=== PATIENT | male | born 1955 | race Hispanic/Latino ===

== ENCOUNTER 2018-06-30 18:27 | Observation (INO) | payer BC ==
[2018-06-30] MEDS ORDERED: NA CHLORIDE 0.9% 1,000 ML ONE ×2 (19:26→22:12)
[2018-06-30] MEDS ORDERED: KETOROLAC 30 MG/ML INJ ONE (19:37)
[2018-06-30 20:00] LABS: Albumin 3.2 g/dL (3.4-5.0); Bilirubin Total 0.5 mg/dL (0.2-1.0); C-Reactive Protein 88.4 mg/L (<3.00); Potassium 3.9 mmol/L (3.5-5.1); Protein, Total 8.1 g/dL (6.4-8.2)
[2018-06-30 20:35] LABS: Absolute Lymphocytes (CBC) 0.9 K/uL (0.7-4.9); Absolute Neutrophil 9.9 K/uL (1.8-8.0); Basophils % 0.4 % (0-1.3); Eosinophils % 3.8 % (0-4.4); Hematocrit 40.9 % (39.6-49.0); MPV 9.8 fL (7.6-11.3); Monocytes % 8.2 % (3.3-12.3); RBC Red Blood Cell Count 4.17 M/uL (4.33-5.43)
--- NOTE | 2018-06-30 21:40 | ER ---
Nurse's Notes [facility] Name: Devonte Gil Age: 62 yrs Sex: Male : 1955 Arrival Date: 06/30/2018 Time: 18:30 Bed 8 Private MD: Diagnosis: Other giant cell arteritis Presentation: 06/30 18:36 Presenting complaint: Patient states: left temporal pain that began at 1400 today and aa5 states "it's hard to see straight with my left eye, I have to turn my head to the right to see what is in front of me". Pt states "the eye doctor sent me here". Transition of care: patient was not received from another setting of care. Onset of symptoms was June 30, 2018. Risk Assessment: Do you want to hurt yourself or someone else? Patient reports no desire to harm self or others. Initial Sepsis Screen: Does the patient meet any 2 criteria? No. Patient's initial sepsis screen is negative. Does the patient have a suspected source of infection? No. Patient's initial sepsis screen is negative. Care prior to arrival: None. 18:36 Acuity: FABI 3 aa5 18:36 Method Of Arrival: Ambulatory aa5 Historical: - Allergies: 18:38 No Known Allergies; aa5 - PMHx: 18:38 Diabetes - NIDDM; Hypertension; aa5 - PSHx: 18:38 Appendectomy; aa5 - Immunization history:: Flu vaccine is up to date. - Social history:: Smoking status: Patient/guardian denies using tobacco, Patient/guardian denies using alcohol, street drugs, The patient lives with family. - Ebola Screening: : No symptoms or risks identified at this time. - Family history:: not pertinent. Screenin:37 Abuse screen: Denies threats or abuse. Nutritional screening: No deficits noted. ea Tuberculosis screening: No symptoms or risk factors identified. Fall Risk None identified. IV access (20 points). Assessment: 19:36 General: Appears in no apparent distress. Behavior is calm, cooperative, appropriate ea for age. Pain: Complains of pain in headache. Neuro: Level of Consciousness is awake, alert, obeys commands, Oriented to person, place, time, situation. Cardiovascular: Patient's skin is warm and dry. Respiratory: Airway is patent Respiratory effort is even, unlabored, Respiratory pattern is regular, symmetrical. Derm: Skin is pink, warm \\T\\ dry. 20:30 Reassessment: Patient and/or family updated on plan of care and expected duration. Pain ea level reassessed. Patient is alert, oriented x 3, equal unlabored respirations, skin warm/dry/pink. 21:50 Reassessment: Patient and/or family updated on plan of care and expected duration. Pain ea level reassessed. Patient is alert, oriented x 3, equal unlabored respirations, skin warm/dry/pink. 22:47 Reassessment: Patient and/or family updated on plan of care and expected duration. Pain ea level reassessed. Patient is alert, oriented x 3, equal unlabored respirations, skin warm/dry/pink. Pt complaining of headache, Dr. Enriquez notified, order for tramadol 50 mg PO X1 obtained, medication administered, pt tolerated well. 23:30 Reassessment: Patient and/or family updated on plan of care and expected duration. Pain ea level reassessed. Patient is alert, oriented x 3, equal unlabored respirations, skin warm/dry/pink. Report given to Juan FAUSTIN. 23:47 Reassessment: Patient and/or family updated on plan of care and expected duration. Pain ea level reassessed. Patient is alert, oriented x 3, equal unlabored respirations, skin warm/dry/pink. Pt admitted to second floor, taken via wheelchair per tech, tolerating well. Vital Signs: 18:39 BP 155 / 82; Pulse 95; Resp 16 S; Temp 98.6(TE); Pulse Ox 95% on R/A; Weight 106.59 kg aa5 (R); Height 5 ft. 9 in. (175.26 cm) (R); Pain 6/10; 20:00 BP 120 / 67; Pulse 80; Resp 18; Pulse Ox 98% on R/A; ea 21:30 BP 123 / 67; Pulse 78; Resp 18; Pulse Ox 97% on R/A; ea 22:50 BP 130 / 72; Pulse 82; Resp 18; Pulse Ox 97% on R/A; ea 23:45 BP 127 / 72; Pulse 86; Resp 18; Temp 98.5(O); Pulse Ox 98% ; ea 18:39 Body Mass Index 34.70 (106.59 kg, 175.26 cm) aa5 ED Course: 18:30 Patient arrived in ED. mr 18:36 Arm band placed on. aa5 18:38 Triage completed. aa5 18:56 Chris Nichole MD is Attending Physician. ma2 19:36 Inserted saline lock: 20 gauge in right antecubital area, using aseptic technique. ea Blood collected. 19:37 Patient has correct armband on for positive identification. Bed in low position. Call ea light in reach. Side rails up X 1. 19:38 Anu Redman, RN is Primary Nurse. ea 21:38 Jeanne Ojeda MD is Hospitalizing Provider. ma2 22:49 No provider procedures requiring assistance completed. Patient admitted, IV remains in ea place. Administered Medications: 19:34 Drug: NS 0.9% 1000 ml Route: IV; Rate: 1 bolus; Site: right antecubital; ea 20:30 Follow up: Response: No adverse reaction; IV Status: Completed infusion; IV Intake: ea 1000ml 19:35 Drug: TORadol 30 mg Route: IVP; Site: right antecubital; ea 20:00 Follow up: Response: No adverse reaction; Pain is decreased ea 22:10 Drug: MethylPrednisoLONE 1000 mg Route: IVP; Site: right antecubital; ea 23:33 Follow up: Response: No adverse reaction ea 22:43 Drug: traMADol 50 mg {Note: verbal order per Dr. Medina.} Route: PO; ea 23:33 Follow up: Response: No adverse reaction; Pain is decreased ea Intake: 20:30 IV: 1000ml; Total: 1000ml. ea Outcome: 21:39 Decision to Hospitalize by Provider. ma2 23:31 Admitted to Med/surg accompanied by tech, room 215, with chart, Report called to Juan boone RN 23:31 Condition: stable 23:31 Instructed on the need for admit. 23:48 Patient left the ED. ea Signatures: Chen Powell mr CarolinaAmanda, RN RAMIN [facility] Anu Redman, Chris Mae RN, ea, MD MD [facility]
--- NOTE | 2018-06-30 21:40 | EDPHYS ---
Physician Documentation [facility] Name: Devonte Gil Age: 62 yrs Sex: Male : 1955 Arrival Date: 06/30/2018 Time: 18:30 Bed 8 Private MD: ED Physician Chris Nichole HPI: 06/30 19:23 This 62 yrs old Male presents to ER via Ambulatory with complaints of Sent by shantelle Amaya 19:23 Onset: The symptoms/episode began/occurred suddenly, 5 hour(s) ago. Duration: the ma2 symptoms are continuous. Associated signs and symptoms: Pertinent positives: Pertinent negatives: chills, dizziness, fever, headache. Severity of symptoms: At their worst the symptoms were moderate in the emergency department the symptoms are unchanged. The patient has not experienced similar symptoms in the past. send by his opthalmologist for possible temporal arterietis, he went there for left sided visual changes and left taoism pain and tenderness, since 2 pm, constant, his vision was 20/20 bilat however he has left visual field defect on the left temporal side, report available and bib patient, never had this before he is diabetic on insuline . Historical: - Allergies: 18:38 No Known Allergies; aa5 - PMHx: 18:38 Diabetes - NIDDM; Hypertension; aa5 - PSHx: 18:38 Appendectomy; aa5 - Immunization history:: Flu vaccine is up to date. - Social history:: Smoking status: Patient/guardian denies using tobacco, Patient/guardian denies using alcohol, street drugs, The patient lives with family. - Ebola Screening: : No symptoms or risks identified at this time. - Family history:: not pertinent. ROS: 19:23 Constitutional: Negative for fever, chills, and weight loss, Cardiovascular: Negative ma2 for chest pain, palpitations, and edema. 19:23 Neck: Negative for injury, pain, and swelling, Respiratory: Negative for shortness of breath, cough, wheezing, and pleuritic chest pain, Abdomen/GI: Negative for abdominal pain, nausea, diarrhea, and constipation, Back: Negative for injury and pain. 19:23 Constitutional: Negative for body aches, chills, fatigue, malaise, poor PO intake. 19:23 Eyes: Positive for visual disturbance, Negative for injury or acute deformity, matting, photophobia. 19:23 Neck: 19:23 All other systems are negative. Exam: 19:23 Visual Acuity: Visual acuity is within normal limits. ma2 19:23 Constitutional: This is a well developed, well nourished patient who is awake, alert, and in no acute distress. ENT: Nares patent. No nasal discharge, no septal abnormalities noted. Tympanic membranes are normal and external auditory canals are clear. Oropharynx with no redness, swelling, or masses, exudates, or evidence of obstruction, uvula midline. Mucous membranes moist. Neck: Trachea midline, no thyromegaly or masses palpated, and no cervical lymphadenopathy. Supple, full range of motion without nuchal rigidity, or vertebral point tenderness. No Meningismus. Chest/axilla: Normal chest wall appearance and motion. Nontender with no deformity. No lesions are appreciated. Cardiovascular: Regular rate and rhythm with a normal S1 and S2. No gallops, murmurs, or rubs. Normal PMI, no JVD. No pulse deficits. Respiratory: Lungs have equal breath sounds bilaterally, clear to auscultation and percussion. No rales, rhonchi or wheezes noted. No increased work of breathing, no retractions or nasal flaring. Skin: Warm, dry with normal turgor. Normal color with no rashes, no lesions, and no evidence of cellulitis. MS/ Extremity: Pulses equal, no cyanosis. Neurovascular intact. Full, normal range of motion. Neuro: Awake and alert, GCS 15, oriented to person, place, time, and situation. Cranial nerves II-XII grossly intact. Motor strength 5/5 in all extremities. Sensory grossly intact. Cerebellar exam normal. Normal gait. 19:23 Head/face: Noted is ttp over left taoism, right side wnl . 19:23 Eyes: Pupils: equal, round, and reactive to light and accomodation, Extraocular movements: intact throughout, Lids and lashes: funduscopic exam reveals no obvious abnormalities, per report available by his optha today , Visual swenson: + defect as noted above in hpi. Vital Signs: 18:39 BP 155 / 82; Pulse 95; Resp 16 S; Temp 98.6(TE); Pulse Ox 95% on R/A; Weight 106.59 kg aa5 (R); Height 5 ft. 9 in. (175.26 cm) (R); Pain 6/10; 20:00 BP 120 / 67; Pulse 80; Resp 18; Pulse Ox 98% on R/A; ea 21:30 BP 123 / 67; Pulse 78; Resp 18; Pulse Ox 97% on R/A; ea 22:50 BP 130 / 72; Pulse 82; Resp 18; Pulse Ox 97% on R/A; ea 23:45 BP 127 / 72; Pulse 86; Resp 18; Temp 98.5(O); Pulse Ox 98% ; ea 18:39 Body Mass Index 34.70 (106.59 kg, 175.26 cm) aa5 MDM: 18:56 Patient medically screened. ma2 19:23 Differential diagnosis: ?Temporal arteritis vs clusted headache vs optic neuritis ma2 unlikely no indication for head ct, he has no headache. 21:37 Data reviewed: vital signs, nurses notes. Counseling: I had a detailed discussion with ma2 the patient and/or guardian regarding: the historical points, exam findings, and any diagnostic results supporting the discharge/admit diagnosis, the presence of at least one elevated blood pressure reading (>120/80) during this emergency department visit. Response to treatment: the patient's symptoms have markedly improved after treatment. ED course: ESR and CRP elevated temporal arteritis is likely discussed with dr. tavarez who recommends admission and accepted by dr. chris, we paged dr. Rao at 9 pm with no answer. 06/30 19:09 Order name: CBC with Diff; Complete Time: 21:00 ma2 06/30 19:09 Order name: CMP; Complete Time: 20:25 ma2 06/30 19:09 Order name: ESR; Complete Time: 21:00 ma2 06/30 19:09 Order name: CRP; Complete Time: 20:25 ma2 Administered Medications: 19:34 Drug: NS 0.9% 1000 ml Route: IV; Rate: 1 bolus; Site: right antecubital; ea 20:30 Follow up: Response: No adverse reaction; IV Status: Completed infusion; IV Intake: ea 1000ml 19:35 Drug: TORadol 30 mg Route: IVP; Site: right antecubital; ea 20:00 Follow up: Response: No adverse reaction; Pain is decreased ea 22:10 Drug: MethylPrednisoLONE 1000 mg Route: IVP; Site: right antecubital; ea 23:33 Follow up: Response: No adverse reaction ea 22:43 Drug: traMADol 50 mg {Note: verbal order per Dr. Medina.} Route: PO; ea 23:33 Follow up: Response: No adverse reaction; Pain is decreased ea Disposition: 06/30/18 21:39 Hospitalization ordered by Jeanne Ojeda for Inpatient Admission. Preliminary diagnosis is Other giant cell arteritis. - Bed requested for Telemetry/MedSurg (Inpatient). - Status is Inpatient Admission. ea - Condition is Stable. - Problem is new. - Symptoms are unchanged. UTI on Admission? No Signatures: Dispatcher [employer] EDMS Amanda Carolina RN RN aa5 Mariaelena Mason RN RN Anu Ivey RN RN Chris Rod MD MD ma2 Corrections: (The following items were deleted from the chart) 22:58 21:39 Hospitalization Ordered by Jeanne Ojeda MD for Inpatient Admission. Preliminary cg diagnosis is Other giant cell arteritis. Bed requested for Telemetry/MedSurg (Inpatient). Status is Inpatient Admission. Condition is Stable. Problem is new. Symptoms are unchanged. UTI on Admission? No. ma2 23:48 22:58 06/30/2018 21:39 Hospitalization Ordered by Jeanne Ojeda MD for Inpatient ea Admission. Preliminary diagnosis is Other giant cell arteritis. Bed requested for Telemetry/MedSurg (Inpatient). Status is Inpatient Admission. Condition is Stable. Problem is new. Symptoms are unchanged. UTI on Admission? No. cg
--- NOTE | 2018-06-30 22:49 | P.HP ---
Certification for Inpatient Patient admitted to: Observation With expected LOS: <2 Midnights Practitioner: I am a practitioner with admitting privileges, knowledge of patient current condition, hospital course, and medical plan of care. Services: Services provided to patient in accordance with Admission requirements found in Title 42 Section 412.3 of the Code of Federal Regulations Patient History Date of Service: 06/30/18 Reason for admission: left temporal pain, left aye trouble vision History of Present Illness: Mr Gil is a 62 years old male with history of hepatitis C, liver cirrhosis , HTN, DM II, who start this morning while he was at work with left temporal area pain. He describe like pulsate pain. He denied fever or chills, no nausea or vomiting. He focus the area of pain over his left temporal artery. He also states that was having trouble vision with his left eye this afternoon. He has never had this problem before. Lab work remarkable for leukocytosis 12.2 K, elevated ESR and CRP. BP 155/82, HR 95. No fever. Allergies No Known Drug Allergies Allergy (Verified 08/06/16 11:38) Unknown No Known Allergies Allergy (Uncoded 08/06/16 12:09) Unknown Home Medications: Amlodipine [Norvasc*] 25 mg PO DAILY 08/23/14 Aspirin 81 mg PO DAILY 08/23/14 Losartan Potassium [Cozaar] 100 mg PO DAILY 08/23/14 Carvedilol [Coreg*] 25 mg PO BID 08/06/16 Pantoprazole [Protonix Tab*] 40 mg PO BID #60 tab 08/08/16 - Past Medical/Surgical History Diabetic: Yes -: hepitisis C -: HTN -: Diabetes -: appendectomy - Family History Father -: Hypertension, Diabetes - Social History Smoking Status: Former smoker Alcohol use: Yes CD- Drugs: No Caffeine use: No Place of Residence: Home Review of Systems 10-point ROS is otherwise unremarkable Physical Examination - Physical Exam General: Alert, In no apparent distress HEENT: PERRLA, Mucous membr. moist/pink, Other (tenderness to palpation over left temporal artery.), EOMI, Sclerae nonicteric Neck: Supple, 2+ carotid pulse no bruit, No LAD, Without JVD or thyroid abnormality Respiratory: Clear to auscultation bilaterally, Normal air movement Cardiovascular: Regular rate/rhythm, Normal S1 S2 Gastrointestinal: Normal bowel sounds, No tenderness Musculoskeletal: No tenderness Integumentary: No rashes Neurological: Normal speech, Normal strength at 5/5 x4 extr, Normal tone, Normal affect Lymphatics: No axilla or inguinal lymphadenopathy - Studies Laboratory Data (last 24 hrs) 06/30/18 19:37: Sodium 137, Potassium 3.9, BUN 21 H, Creatinine 1.03, Glucose 113 H, Total Bilirubin 0.5, AST 31, ALT 37, Alkaline Phosphatase 140 H 06/30/18 19:37: WBC 12.2 H, Hgb 14.9, Hct 40.9, Plt Count 221 Assessment and Plan - Problems (Diagnosis) (1) Temporal arteritis Current Visit: Yes Status: Acute (2) Diabetes mellitus Onset Date: 08/07/16 Current Visit: No Status: Acute Qualifiers: Diabetes mellitus type: type 2 Diabetes mellitus termite helper insulin use: without termite helper use Diabetes mellitus complication status: with unspecified complications Qualified Code(s): E11.8 - Type 2 diabetes mellitus with unspecified complications (3) HTN (hypertension) Onset Date: 08/07/16 Current Visit: No Status: Acute Qualifiers: Hypertension type: essential hypertension Qualified Code(s): I10 - Essential (primary) hypertension (4) Liver cirrhosis Onset Date: 08/07/16 Current Visit: No Status: Acute Qualifiers: Hepatic cirrhosis type: unspecified hepatic cirrhosis Ascites presence: without ascites Qualified Code(s): K74.60 - Unspecified cirrhosis of liver - Plan The case was discussed with Dr Vargas, he recommended to start high dose of Steroids and keep him in the hospital for close monitoring. Will consult surgery team for left temporal artery biopsy. - Advance Directives Does patient have a Living Will: No Does patient have a Durable POA for Healthcare: No - Code Status/Comfort Care Code Status Assessed: Yes Code Status: Full Code
[2018-06-30] MEDS ORDERED: TRAMADOL HCL 50 MG TAB ONE (22:54)
[2018-06-30] MEDS ORDERED: ONDANSETRON 4 MG/2 ML VIAL IV PRN (23:46)
[2018-07-01] MEDS: NA CHLORIDE 0.9% 1,000 ML IV SCH ×2 (00:30→09:46)
[2018-07-01 00:39] VITALS: BMI 34.9
[2018-07-01 06:13] LABS: Absolute Lymphocytes (CBC) 0.4 K/uL (0.7-4.9); Absolute Monocytes 0.1 K/uL (0.1-1.3); Absolute Neutrophil 8.6 K/uL (1.8-8.0); Basophils % 0.2 % (0-1.3); Eosinophils % 0.2 % (0-4.4); Hematocrit 44.2 % (39.6-49.0); Lymphocytes % 4.8 % (15.3-44.8); MPV 9.8 fL (7.6-11.3); RBC Red Blood Cell Count 4.71 M/uL (4.33-5.43)
[2018-07-01 06:26] LABS: Potassium 4.7 mmol/L (3.5-5.1)
[2018-07-01] MEDS: INSULIN -REGULAR HUMAN 50 UNIT/0.5 ML ML SQ SCH ×2 (07:30→11:30)
[2018-07-01 07:52] LABS: Platelet Estimate ADEQ
[2018-07-01 07:53] LABS: Blood Morphology Comment NOT SEEN (NOT SEEN); Platelets, Giant FEW
[2018-07-01] MEDS ORDERED: METHYLPREDNISOLONE 40 MG INJ IV SCH (09:00)
[2018-07-01] MEDS ORDERED: METHYLPRED NA SUC 500 MG in NA CHLORIDE 0.9% 100 ML IV SCH (09:00)
[2018-07-01] MEDS ORDERED: FERROUS SULFATE 325 MG TAB PO PRN (09:07)
[2018-07-01] MEDS ORDERED: CEFAZOLIN/SWI 1gm 1 GM/10 ML SYR ONE (09:49)
[2018-07-01] MEDS ORDERED: NA CHLORIDE 0.9% 1,000 ML ONE (09:49)
[2018-07-01] MEDS ORDERED: LIDOCAINE 1% 20 ML MDV ONE (10:03)
[2018-07-01] MEDS ORDERED: FENTANYL CITR 100 MCG/2 ML ONE (10:34)
[2018-07-01] MEDS ORDERED: MIDAZOLAM HCL 2 MG/2 ML INJ ONE (10:34)
--- NOTE | 2018-07-01 11:05 | P.OP ---
Character Actor: Khanh VALERIO Preoperative diagnosis: L H/A, vision change, r/o Temporal Arteritis Postoperative diagnosis: same Primary procedure: Left Temporal Artery Biopsy Secondary procedure: Doppler guided Anesthesia: MAC Estimated blood loss: min Specimen: L Temporal Artery Findings: as above Complications: None Transferred to: Recovery Room Condition: Good
[2018-07-01] MEDS ORDERED: Mastisol Adhesive Liq ONE (11:12)
[2018-07-01] MEDS ORDERED: CODEINE 30MG/APAP 300MG TAB PO PRN (11:25)
[2018-07-01 11:35] VITALS: O2SAT 94
--- NOTE | 2018-07-01 14:24 | PREOPCON ---
Date of Consultation: 07/01/2018 Reason For Consultation: The patient needs the left temporal artery biopsy. History Of Present Illness: The patient is a 62-year-old gentleman, who came in with a headache on t he left side associated with vision changes. He went to the ER and was found to have an elevated sed imentation rate and CRP, and he was admitted. Steroids were started and I was asked to do a temporal artery biopsy. He is awake and alert. No fever or chills. No sore throat, runny nose, cough, head aches, or dizziness. No chest pain. Review of Systems: Otherwise unremarkable. Past Medical History: Significant for hepatitis C, hypertension, and diabetes. Past Surgical History: Appendectomy. Allergies: NO ALLERGIES. Social History: He used to smoke and drinks alcohol occasionally. Physical Examination: Vital Signs: Stable. He is afebrile. General: He is awake, alert, and oriented x3. Head and Neck: Cranial nerves 2 through 12 grossly within normal limits. No neck masses. No JVD. Throat clear. Neck is supple. Chest: Clear. Heart: S1 and S2. Abdomen: Soft, nondistended, and nontender. Positive bowel sounds. Extremities: Neurovascularly intact. Neuro: Nonfocal. Laboratory Data: White count is 9.2. Sedimentation rate is 48. Chemistry shows C reactive to be 88 .4. Assessment: A 62-year-old gentleman with vision change and left-sided headache, rule out temporal ar teritis. Plan: We will go ahead and do a left temporal artery biopsy. The patient understands the risks, eva efits, and alternatives and agrees to procedure. LISA/BEVERLY Voice ID: [id number] Report ID: [id number]
[2018-07-01 17:13] VITALS: BP 133/78; TEMP 97.2
--- NOTE | 2018-07-01 18:24 | CON ---
Reason For Consultation: Possible left temporal arteritis. History Of Present Illness: Mr. Gil is a 62-year-old patient who was in his usual state of heal th until yesterday when he developed pain in the left temporal region, and lateral left eye. Right a round that time, he began to have loss of central vision, but being able to maintain peripheral visio n and having to turn his head to either side to be able to read what is in front of him. He said stephen t towards his nose, there was no pain, but on the far side on the left lateral side of his eye, there was pain around the corner and in the temporal region. He saw his account advisor, who did an eye e valuation and raised concerns of possible left temporal arteritis. He came to [facility] Emergency Room where I was contacted by the emergency room physician, and we immediately instituted a plan of high-dose steroids, which the patient began at that point, and he was admitted for temporal artery biopsy. He did have the biopsy done earlier today by Dr. Rao. The patient said that once h e began to receive the intravenous steroids, which was methylprednisolone, he received a gram, he martir d, along with some Toradol, his left temporal pain improved, and he continued to do well as at the ti me of my evaluation, he said there was little to no pain in the left temporal area, and he denied any vision issues at this point. Past Medical History: Hepatitis C is treated, hypertension, diabetes. Past Surgical History: Appendectomy. Medications: Norvasc 25 mg daily, aspirin 81 mg daily, Cozaar 100 mg daily, Coreg 25 mg twice daily, Protonix 40 mg twice daily. Allergies: NO KNOWN DRUG ALLERGIES. Family History: Hypertension, diabetes in father. Social History: Smoked in the past. No recent alcohol or IV drug use. Review of Systems: He denies any recent fevers, chills, nausea, vomiting, myalgias, arthralgias, weight change, rash, an d all these are other than mentioned above. Physical Examination: Vital Signs: Blood pressure 132/70, pulse 89, respiratory rate 16, temperature 97.7, oxygen saturati on 94-99%, weight 236 pounds, height 5 feet 9 inches, BMI 34.9. General: Mr. Gil is resting comfortably in bed. HEENT: He has Steri-Strips over the left temporal area artery biopsy. Otherwise, there is no trauma of the head and he is normocephalic. Sclerae anicteric. Oropharynx is moist, pink. Neck: Supple. Chest: Clear. Heart: Regular. Extremities: Show no edema, cyanosis, or clubbing. Neurological: He is alert and oriented to person, place, time, and situation. He has no expressive or receptive aphasias. Cranial nerves 2 through 12 are intact by exam. Motor examination, he has full strength in upper and lower extremities proximally and distally. Sens ory exam intact in upper and lower extremities. Coordination intact in upper and lower extremities. Reflexes 1+ in upper and lower extremities symmetrically. Gait, he has good stance, right arm swing . Laboratory Studies: Complete blood count with differential initially showed an elevated white blood cell of 12.2, now 9.2. Hemoglobin and hematocrit are normal. His sedimentation rate done yesterday was 48. His C-reactive protein elevated at 88.4. His blood sugars ranged from 113-215, creatinine 0 .93, alkaline phosphatase 140, albumin 3.2. Assessment: Mr. Gil is a 62-year-old patient with likely left temporal arteritis status post bi opsy and on steroid treatment. He has very elevated C-reactive protein and elevated erythrocyte sedi mentation rate. Plan: 1.The patient be put on prednisone 60 mg daily. He will follow up with Dr. Gilliam's clinic in 1 [facility]. 2.He will have his sedimentation rate and C-reactive protein drawn 1 week before his clinic visit in 1 month, and at that point, we will determine the need for continuing the steroid at the high dose o r begin a taper. 3.The patient may be discharged home and follow up with Dr. Gilliam's clinic in 1 month. TYSON/BEVERLY Voice ID: [id number] Report ID: [id number]
[2018-07-01] MEDS ORDERED: ATORVASTATIN 20 MG TAB PO SCH (21:00)
[2018-07-01] MEDS ORDERED: CARVEDILOL 25 MG TAB PO SCH (21:00)
--- NOTE | 2018-07-01 23:00 | OP ---
Date of Procedure: 07/01/2018 Surgeon: Bin Rao MD Special Projects Manager: Parvez Reyes Preoperative Diagnoses: Left-sided headache and vision change. Rule out temporal arteritis. Postoperative Diagnoses: Left-sided headache and vision change. Rule out temporal arteritis. Procedure: Left temporal artery biopsy and Doppler aiding. Estimated Blood Loss: Minimal. Specimen: Left temporal artery. Findings: As above. Anesthesia: MAC. Complications: None. Disposition: The patient tolerated the procedure in stable condition and taken to recovery in good g eneral condition. Description Of Procedure: The patient was brought to the OR and placed in supine position. MAC anes thesia was begun. The patient was prepped and draped in usual sterile fashion. Doppler device was u sed to locate the branch of the temporal artery anterior and superior to the left ear, 4-cm segments. Marcaine 0.5% was infiltrated locally. Then, 15-blade was used to make a 4-cm incision. Subcutane ous tissue was divided. The proximal and distal part of the artery was identified and clamped and th en cut. A 4-cm segment was cut and sent to pathology. A 4-0 silk was used to tie off both ends. Wo und was irrigated. Bleeding was controlled with cautery. A 4-0 chromic was used to approximate the subcutaneous tissue and close the skin. Sterile dressing was applied. The patient was awakened and taken to recovery in good general conditi on. /MODL Voice ID: [id number] Report ID: [id number]
--- NOTE | 2018-07-02 05:10 | DS ---
Date of Discharge: 07/01/2018 Consultants: 1.Dr. Rao with General Surgery. 2.Dr. Gilliam with Neurology. Procedures: On 07/01/2018, left temporal artery biopsy. Pathology pending. Discharge Diagnoses: 1.Temporal arteritis, status post biopsy, on steroids, improved. 2.Visual changes secondary to above, resolved. 3.Diabetes mellitus type 2 without long-term use of insulin, stable. 4.Essential hypertension, stable. 5.Liver cirrhosis secondary to hepatitis C. Hospital Course: The patient is a 62-year-old male, who came in due to left eye visual changes as we ll as left temporal pain. He went to go see an eye doctor, was told to come to the hospital for IV s teroids. The patient's ESR and CRP were elevated. His white count was also elevated at 12,000. The patient was started on IV steroids. His visual changes resolved. The patient was seen by Dr. Ericka francis and Dr. Rao. Dr. Rao took the patient for above-mentioned procedure. The patient tolerated the procedure well, was then cleared for discharge from Surgery and Neurology standpoint to follow up with Neurology in 1 month. Follow up with primary care physician in 2 to 3 days. Follow up with mariia wolfe for temporal artery biopsy results, Dr. Rao. Return to ER for worsening condition. Medications: As per medication reconciliation list. Diet: Diabetic. Activity: As tolerated. Physical Examination: General: Awake, alert, oriented, in no acute distress. CV: S1, S2. No murmurs. Respiratory: Moving air well bilaterally. No wheezing. Abdomen: Soft, nontender, nondistended. Positive bowel sounds. Extremities: No clubbing, cyanosis, or edema. Neurologic: Nonfocal. Skin: Left temporal artery area bandaged; clean, dry, and intact. SA/MODL Voice ID: [id number] Report ID: [id number]
[2018-07-02] MEDS ORDERED: PANTOPRAZOLE 40MG TABLET PO SCH (06:30)
[2018-07-02] MEDS ORDERED: hydroCHLOROthiazide 25 MG TAB PO SCH (09:00)
[2018-07-02] MEDS ORDERED: AMLODIPINE 10 MG TAB PO SCH (09:00)
[2018-07-02] MEDS ORDERED: SPIRONOLACTONE 25 MG TABLET PO SCH (09:00)
[2018-07-02] MEDS ORDERED: TERAZOSIN HCL 1 MG CAP PO SCH (09:00)
[2018-07-02] MEDS ORDERED: INSULIN GLARGINE 100 UNITS/ML SQ SCH (09:00)
[2018-07-02] MEDS ORDERED: HOME MED 1 EA UNK (Empagliflozin [Jardiance] 25 MG) PO SCH (09:00)
--- NOTE | 2018-07-05 17:37 | PN ---
Subjective: The patient has no new complaints. Objective: Vital Signs: Blood pressure 145/70, pulse 67, temperature 98. Heart: Regular rate and rhythm. Chest: Clear to auscultation. Abdomen: Soft and benign. Neurological examination: Alert, oriented x4. Grossly intact. Extremities: No edema. No cyanosis. Peripheral pulses are felt. Laboratory Data: Chem-7 noted, BUN down to 41, creatinine down to 1.50. Blood sugar fingersticks no davion. Total CPK down to 247. Assessment And Plan: 1.Sepsis, controlled on current antibiotic. 2.Cystitis, controlled with current antibiotic. 3.Acute renal failure, improved with hydration. 4.Weakness, fatigue, pending transfer to alf. Appreciate social service consult. 5.Rest of medical problems stable. We will continue current treatment. Awaiting for availability o f alf to discharge the patient to a alf. MFS/MODL Voice ID: [id number] Report ID: [id number]
[2018-07-08] MEDS ORDERED: HOME MED 1 EA UNK (Dulaglutide [Trulicity] 0.5 ML) SQ SCH (09:00)
== END 2018-07-01 16:30 | disposition home or self-care (01) ==
LOC: ER 18:27 → ERHOLD 22:39 → 2ND 23:36
PROVIDERS: ADMIT Internal Medicine; ATTEND Family Medicine
PROC: 03BT3ZX Excision of Left Temporal Artery, Percutaneous Approach, Diagnostic (ICD-10-PCS; principal; 2018-06-30)
DX: M31.6 Other giant cell arteritis (principal); E11.9 Type 2 diabetes mellitus without complications; I10 Essential (primary) hypertension; B19.20 Unspecified viral hepatitis C without hepatic coma; K74.60 Unspecified cirrhosis of liver; Z79.4 Long term (current) use of insulin; Z79.82 Long term (current) use of aspirin; Z82.49 Family history of ischemic heart disease and other diseases of the circulatory system; Z83.3 Family history of diabetes mellitus; Z87.891 Personal history of nicotine dependence; Z90.89 Acquired absence of other organs; Z98.890 Other specified postprocedural states
CPT/HCPCS: 36415; 80048; 80053; 82962; 85025; 85652; 86140; 88305; 96361; 96374; 96375; 99285; G0378; J0690; J2250; J2930; J3010; J7030

== ENCOUNTER 2018-08-23 09:20 | Emergency (ER) | payer BC ==
[2018-08-23 10:59] LABS: Absolute Lymphocytes (CBC) 0.6 K/uL (0.7-4.9); Absolute Monocytes 0.8 K/uL (0.1-1.3); Absolute Neutrophil 11.9 K/uL (1.8-8.0); Basophils % 0.3 % (0-1.3); Hematocrit 45.1 % (39.6-49.0); Lymphocytes % 4.3 % (15.3-44.8); MPV 9.3 fL (7.6-11.3); Monocytes % 5.8 % (3.3-12.3); RBC Red Blood Cell Count 4.72 M/uL (4.33-5.43)
[2018-08-23 11:00] LABS: Protime INR 1.04
--- NOTE | 2018-08-23 11:17 | RAD REPORT ---
EXAM DESCRIPTION: CT - Head Brain Wo Cont - 08/23/2018 11:10 am CLINICAL HISTORY: DIZZINESS Syncope, fall, head trauma COMPARISON: No comparisons TECHNIQUE: All CT scans are performed using dose optimization technique as appropriate and may inclu de automated exposure control or mA/KV adjustment according to patient size. FINDINGS: No intracranial hemorrhage, hydrocephalus or extra-axial fluid collection.No areas of brai n edema or evidence of midline shift. The paranasal sinuses and mastoids are clear. The calvarium is intact. IMPRESSION: No acute intracranial abnormality.
[2018-08-23 11:27] LABS: ALT/SGPT 39 U/L (12-78); AST/SGOT 29 U/L (15-37); Albumin 3.4 g/dL (3.4-5.0); Alkaline Phosphatase 102 U/L (45-117); BUN Blood Urea Nitrogen 25 mg/dL (7-18); Bicarbonate 22 mmol/L (21-32); Bilirubin Direct 0.2 mg/dL (0-0.2); Bilirubin Total 0.6 mg/dL (0.2-1.0); Glucose Level 172 mg/dL (74-106); Magnesium 2.1 mg/dL (1.8-2.4); NT PRO-BNP 77 pg/mL (<125); Potassium 4.4 mmol/L (3.5-5.1); Protein, Total 7.5 g/dL (6.4-8.2); Sodium Level 140 mmol/L (136-145); Troponin (Emerg Dept Use Only) < 0.02 ng/mL (0.0-0.045)
--- NOTE | 2018-08-23 11:34 | RAD REPORT ---
EXAM DESCRIPTION: MRI - Brain Wo Cont - 08/23/2018 11:22 am CLINICAL HISTORY: DIZZINESS Headache, drowsiness and dizziness. COMPARISON: Head Brain Wo Cont dated 08/23/2018 TECHNIQUE: Multi-sequence, multiplanar MR imaging of the brain was performed without contrast. FINDINGS: No intracranial hemorrhage, hydrocephalus or extra-axial fluid collections.Mild chronic mi crovascular ischemic changes noted in the periventricular and deep white matter. No edema or shift of midline structures. No findings to suspect brain mass. DWI is negative for acute CVA. Midline structures are normally formed. Mastoid air cells and paranasal sinuses are clear. IMPRESSION: No acute or concerning intracranial abnormalities.
--- NOTE | 2018-08-23 11:59 | RAD REPORT ---
EXAM DESCRIPTION: US - CP - 08/23/2018 11:42 am CLINICAL HISTORY: DIZZINESS Headache, drowsiness, neck pain COMPARISON: No comparisons TECHNIQUE: Real-time sonographic evaluation of both carotid systems was performed. Doppler interroga tion was performed with waveform tracing bilaterally. FINDINGS: Normal high resistance waveforms are noted in both external carotid arteries. The common c arotid arteries and internal carotid arteries show normal low resistance waveforms. Small hard plaque is seen involving the right carotid bulb. Peak systolic and end diastolic velocity values and the ICA/CCA ratios are in the non-hemodynamically significant range. Antegrade flow seen in both vertebral arteries. IMPRESSION: Small focal hard plaque right carotid bulb. No evidence of a hemodynamically significant stenosis.
--- NOTE | 2018-08-23 12:06 | RAD REPORT ---
EXAM DESCRIPTION: RAD - Chest Single View - 08/23/2018 11:57 am CLINICAL HISTORY: MALAISE Chest pain. COMPARISON: Chest Pa And Lat (2 Views) dated 08/06/2016; CHEST SINGLE VIEW dated 05/06/2011 FINDINGS: Portable technique limits examination quality. Linear subsegmental atelectasis is present in the right lung base. The lungs are otherwise clear. The heart is normal in size. No displaced fractures.
--- NOTE | 2018-08-23 12:13 | EDPHYS ---
Physician Documentation [facility] Name: Devonte Gil Age: 62 yrs Sex: Male : 1955 Arrival Date: 08/23/2018 Time: 09:22 Bed 8 Private MD: Kaveh Portillo ED Physician Alfredo Garcia HPI: 08/23 10:41 This 62 yrs old Male presents to ER via Ambulatory with complaints of Repeated maryann Falls. 10:41 Details of fall: The patient fell from an upright position. Onset: The symptoms/episode maryann began/occurred 3 month(s) ago. Associated injuries: The patient sustained no obvious injury. The patient presents with dizziness, generalized weakness, feeling off balance. Onset: The symptoms/episode began/occurred 3 month(s) ago. Context: occurred at an unknown location. Modifying factors: The symptoms are alleviated by nothing. Associated signs and symptoms: The patient has no apparent associated signs or symptoms. Severity of symptoms: At their worst the symptoms were mild in the emergency department the symptoms are unchanged. Patient's baseline: Neuro: alert and fully oriented. Historical: - Allergies: 09:39 No Known Allergies; ss - PMHx: 09:39 Hypertension; Diabetes - NIDDM; ss - PSHx: 09:39 Appendectomy; ss - Immunization history:: Adult Immunizations up to date. - Social history:: Smoking status: Patient/guardian denies using tobacco. - Ebola Screening: : Patient denies travel to an Ebola-affected area in the 21 days before illness onset. - Family history:: not pertinent. ROS: 10:41 Constitutional: Negative for fever, chills, and weight loss, Eyes: Negative for injury, maryann pain, redness, and discharge, ENT: Negative for injury, pain, and discharge, Neck: Negative for injury, pain, and swelling, Cardiovascular: Negative for chest pain, palpitations, and edema, Respiratory: Negative for shortness of breath, cough, wheezing, and pleuritic chest pain, Abdomen/GI: Negative for abdominal pain, nausea, vomiting, diarrhea, and constipation, Back: Negative for injury and pain, : Negative for injury, bleeding, discharge, and swelling, MS/Extremity: Negative for injury and deformity, Skin: Negative for injury, rash, and discoloration, Psych: Negative for depression, anxiety, suicide ideation, homicidal ideation, and hallucinations, Allergy/Immunology: Negative for hives, rash, and allergies, Endocrine: Negative for neck swelling, polydipsia, polyuria, polyphagia, and marked weight changes, Hematologic/Lymphatic: Negative for swollen nodes, abnormal bleeding, and unusual bruising. 10:41 Neuro: Positive for dizziness, weakness. Exam: 10:43 Constitutional: This is a well developed, well nourished patient who is awake, alert, maryann and in no acute distress. Head/Face: Normocephalic, atraumatic. Eyes: Pupils equal round and reactive to light, extra-ocular motions intact. Lids and lashes normal. Conjunctiva and sclera are non-icteric and not injected. Cornea within normal limits. Periorbital areas with no swelling, redness, or edema. ENT: Nares patent. No nasal discharge, no septal abnormalities noted. Tympanic membranes are normal and external auditory canals are clear. Oropharynx with no redness, swelling, or masses, exudates, or evidence of obstruction, uvula midline. Mucous membranes moist. Neck: Trachea midline, no thyromegaly or masses palpated, and no cervical lymphadenopathy. Supple, full range of motion without nuchal rigidity, or vertebral point tenderness. No Meningismus. Chest/axilla: Normal chest wall appearance and motion. Nontender with no deformity. No lesions are appreciated. Cardiovascular: Regular rate and rhythm with a normal S1 and S2. No gallops, murmurs, or rubs. Normal PMI, no JVD. No pulse deficits. Respiratory: Lungs have equal breath sounds bilaterally, clear to auscultation and percussion. No rales, rhonchi or wheezes noted. No increased work of breathing, no retractions or nasal flaring. Abdomen/GI: Soft, non-tender, with normal bowel sounds. No distension or tympany. No guarding or rebound. No evidence of tenderness throughout. Back: No spinal tenderness. No costovertebral tenderness. Full range of motion. Male : Normal genitalia with no discharge or lesions. Skin: Warm, dry with normal turgor. Normal color with no rashes, no lesions, and no evidence of cellulitis. MS/ Extremity: Pulses equal, no cyanosis. Neurovascular intact. Full, normal range of motion. Psych: Awake, alert, with orientation to person, place and time. Behavior, mood, and affect are within normal limits. 10:43 Neuro: Orientation: is normal, appropriate for stated age, no acute changes, Mentation: is normal, appropriate for stated age, no acute changes, Memory: is normal, appropriate for stated age, no acute changes, Cranial nerves: grossly normal, is grossly normal based on the patient's age, no acute changes, Cerebellar function: is grossly normal, is grossly normal based on the patient's age, no acute changes, Motor: is normal, Sensation: is normal, no obvious gross deficits, appropriate Gait: is unsteady. Vital Signs: 09:37 BP 132 / 88; Pulse 101; Resp 18; Temp 98.3; Pulse Ox 93% on R/A; ph 09:39 Weight 102.06 kg; Height 5 ft. 9 in. (175.26 cm); ss 11:47 BP 134 / 90; Pulse 99; Resp 17; Pulse Ox 97% on R/A; tw2 13:05 BP 128 / 82; Pulse 81; Resp 18; Temp 97.9; Pulse Ox 100% on R/A; ph 09:39 Body Mass Index 33.23 (102.06 kg, 175.26 cm) ss MDM: 09:28 Patient medically screened. [facility] 10:46 Data reviewed: vital signs, nurses notes, lab test result(s), EKG, radiologic studies, [facility] CT scan, doppler, MRI, plain films. 08/23 10:29 Order name: Basic Metabolic Panel; Complete Time: 12:03 08/23 10:29 Order name: CBC with Diff ph 08/23 10:29 Order name: LFT's; Complete Time: 12:03 08/23 10:29 Order name: Magnesium; Complete Time: 12:03 08/23 10:29 Order name: NT PRO-BNP; Complete Time: 12:03 08/23 10:29 Order name: PT-INR; Complete Time: 12:03 08/23 10:29 Order name: Troponin (emerg Dept Use Only); Complete Time: 12:03 08/23 10:29 Order name: XRAY Chest (1 view) 08/23 10:41 Order name: CT Head Brain wo Cont; Complete Time: 12:03 [facility] 08/23 10:41 Order name: US Carotid Artery Bilateral; Complete Time: 12:03 [facility] 08/23 10:49 Order name: Brain Wo Cont; Complete Time: 12:03 EDMS 08/23 11:02 Order name: CBC Smear Scan EDMS 08/23 10:29 Order name: EKG; Complete Time: 10:32 ph 08/23 10:29 Order name: Cardiac monitoring; Complete Time: 10:42 ph 08/23 10:29 Order name: EKG - Nurse/Tech; Complete Time: 10:42 ph 08/23 10:29 Order name: IV Saline Lock; Complete Time: 10:42 ph 08/23 10:29 Order name: Labs collected and sent; Complete Time: 10:43 ph 08/23 10:29 Order name: O2 Per Protocol; Complete Time: 10:43 ph 08/23 10: Order name: O2 Sat Monitoring; Complete Time: :43 ph Administered Medications: 12:25 Drug: Aspirin 162 mg Route: PO; ph 13:06 Follow up: Response: No adverse reaction ph 12:26 Drug: NS 0.9% 1000 ml Route: IV; Rate: 1 bolus; Site: right antecubital; ph 13:07 Follow up: Response: No adverse reaction; IV Status: Completed infusion; IV Intake: ph 1000ml 12:26 Drug: foLIC Acid 1 mg Route: IVPB; Site: right antecubital; ph 13:07 Follow up: Response: No adverse reaction; IV Status: Completed infusion ph Disposition: 08/23/18 12:12 Discharged to Home. Impression: Repeated falls, Dizziness and giddiness, Type 2 diabetes mellitus, Essential (primary) hypertension. - Condition is Stable. - Discharge Instructions: Type 2 Diabetes Mellitus, Diagnosis, Adult, Dizziness, Fall Prevention in the Home, Hypertension, Hypertension, [id number]-[id number], Fall Prevention in the Home, [id number]-[id number], How to Take Your Blood Pressure, Sxpx-[id number], Aspirin and Your Heart, Type 2 Diabetes Mellitus, Diagnosis, Adult, Tthu-zc-[id number], Dizziness, Vsof-ik-Pmkq, Managing Your Hypertension. - Medication Reconciliation Form, Thank You Letter, Antibiotic Education, Prescription Opioid Use form. - Follow up: Kaveh Portillo DO; When: 2 - 3 days; Reason: Recheck today's complaints, Continuance of care, Re-evaluation by your physician. - Problem is new. - Symptoms have improved. Signatures: Dispatcher [employer] EDAK Alfredo Garcia MD MD cha Smirch, Shelby, RN RN ss Stella Eason, RN RN Carissa Munoz, RN RN tw2 Corrections: (The following items were deleted from the chart) 10:49 10:41 MR STROKE PROTOCOL+MRI.RAD.BRZ ordered. EDAK EDMS 12:47 10:50 MR STROKE PROTOCOL+MRI.RAD.BRZ ordered. EDAK EDAK 13:07 12:12 08/23/2018 12:12 Discharged to Home. Impression: Repeated falls; Dizziness and ph giddiness; Type 2 diabetes mellitus; Essential (primary) hypertension. Condition is Stable. Forms are Medication Reconciliation Form, Thank You Letter, Antibiotic Education, Prescription Opioid Use. Follow up: Kaveh Portillo; When: 2 - 3 days; Reason: Recheck today's complaints, Continuance of care, Re-evaluation by your physician. Problem is new. Symptoms have improved. maryann
--- NOTE | 2018-08-23 12:13 | ER ---
Nurse's Notes [facility] Name: Devonte Gil Age: 62 yrs Sex: Male : 1955 Arrival Date: 08/23/2018 Time: 09:22 Bed 8 Private MD: Kaveh Portillo Diagnosis: Repeated falls;Dizziness and giddiness;Type 2 diabetes mellitus;Essential (primary) hypertension Presentation: 08/23 09:24 Presenting complaint: Patient states: Sent by PCP for evaluation of frequent falls. Pt ss reports 5 falls in the past 3 weeks. Pt reports he just gets a little unbalanced and always seems to fall onto his L side. Transition of care: patient was not received from another setting of care. Onset of symptoms is unknown. Risk Assessment: Do you want to hurt yourself or someone else? Patient reports no desire to harm self or others. Initial Sepsis Screen: Does the patient meet any 2 criteria? No. Patient's initial sepsis screen is negative. Does the patient have a suspected source of infection? No. Patient's initial sepsis screen is negative. Care prior to arrival: None. 09:24 Method Of Arrival: Ambulatory ss 09:24 Acuity: FABI 3 ss Historical: - Allergies: 09:39 No Known Allergies; ss - PMHx: 09:39 Hypertension; Diabetes - NIDDM; ss - PSHx: 09:39 Appendectomy; ss - Immunization history:: Adult Immunizations up to date. - Social history:: Smoking status: Patient/guardian denies using tobacco. - Ebola Screening: : Patient denies travel to an Ebola-affected area in the 21 days before illness onset. - Family history:: not pertinent. Screenin:27 Abuse screen: Denies threats or abuse. Nutritional screening: No deficits noted. tw2 Tuberculosis screening: No symptoms or risk factors identified. Fall Risk Fall in past 12 months (25 points). Assessment: 09:41 General: Appears in no apparent distress. comfortable, well groomed, Behavior is calm, ph cooperative, appropriate for age, Denies fever, feeling ill. Pain: Denies pain. Neuro: Level of Consciousness is awake, alert, obeys commands, Oriented to person, place, time, situation, Reports dizziness, weakness since 3 weeks. Cardiovascular: Reports lightheadedness, Denies chest pain, nausea, shortness of breath, vomiting, Capillary refill < 3 seconds in bilateral fingers Patient's skin is warm and dry. Respiratory: Airway is patent Respiratory effort is even, unlabored, Respiratory pattern is regular, symmetrical, Denies cough, shortness of breath. GI: No signs and/or symptoms were reported involving the gastrointestinal system. Patient currently denies abdominal pain, diarrhea, nausea, vomiting. Derm: Skin is intact, is healthy with good turgor, Skin is pink, warm \T\ dry. Musculoskeletal: Circulation, motion, and sensation intact. Range of motion: intact in all extremities. 11:04 Reassessment: pt not available for VS at this time as he is in imaging. tw2 11:47 Reassessment: Patient appears in no apparent distress at this time. No changes from tw2 previously documented assessment. Patient and/or family updated on plan of care and expected duration. Pain level reassessed. Patient is alert, oriented x 3, equal unlabored respirations, skin warm/dry/pink. 12:44 Reassessment: Patient appears in no apparent distress at this time. Patient and/or ph family updated on plan of care and expected duration. Pain level reassessed. Patient is alert, oriented x 3, equal unlabored respirations, skin warm/dry/pink. D/C pending completion of IV fluids. 13:04 Reassessment: Patient appears in no apparent distress at this time. Patient and/or ph family updated on plan of care and expected duration. Pain level reassessed. Patient is alert, oriented x 3, equal unlabored respirations, skin warm/dry/pink. IV fluids complete, d/c home w/ SO. Vital Signs: 09:37 BP 132 / 88; Pulse 101; Resp 18; Temp 98.3; Pulse Ox 93% on R/A; ph 09:39 Weight 102.06 kg; Height 5 ft. 9 in. (175.26 cm); ss 11:47 BP 134 / 90; Pulse 99; Resp 17; Pulse Ox 97% on R/A; tw2 13:05 BP 128 / 82; Pulse 81; Resp 18; Temp 97.9; Pulse Ox 100% on R/A; ph 09:39 Body Mass Index 33.23 (102.06 kg, 175.26 cm) ED Course: 09:22 Patient arrived in ED. as 09:23 Kaveh Portillo, is Private Physician. as 09:25 Stella Eason RN is Primary Nurse. ph 09:28 Alfredo Garcia MD is Attending Physician. maryann 09:28 Placed in gown. Bed in low position. Call light in reach. electronic device monitor on. Pulse ox tw2 on. NIBP on. 09:38 Triage completed. ss 09:39 Arm band placed on. ss 10:27 EKG done, by low voltage technician. reviewed by Alfredo Garcia MD. sm3 10:[address] via stretcher. sw 11:00 Inserted saline lock: 20 gauge in right antecubital area, using aseptic technique. ph Blood collected. 11:11 CT Head Brain wo Cont In Process Unspecified. EDMS 11:25 Brain Wo Cont In Process Unspecified. EDMS 11:36 US Carotid Artery Bilateral In Process Unspecified. EDMS 11:57 XRAY Chest (1 view) In Process Unspecified. EDMS 12:10 Kaveh Portillo DO is Referral Physician. maryann 13:03 No provider procedures requiring assistance completed. IV discontinued, intact, ph bleeding controlled, No redness/swelling at site. Pressure dressing applied. Administered Medications: 12:25 Drug: Aspirin 162 mg Route: PO; ph 13:06 Follow up: Response: No adverse reaction ph 12:26 Drug: NS 0.9% 1000 ml Route: IV; Rate: 1 bolus; Site: right antecubital; ph 13:07 Follow up: Response: No adverse reaction; IV Status: Completed infusion; IV Intake: ph 1000ml 12:26 Drug: foLIC Acid 1 mg Route: IVPB; Site: right antecubital; ph 13:07 Follow up: Response: No adverse reaction; IV Status: Completed infusion ph Intake: 13:07 IV: 1000ml; Total: 1000ml. ph Outcome: 12:12 Discharge ordered by . maryann 13:06 Discharged to home ambulatory, with significant other. ph 13:06 Condition: good 13:06 Discharge instructions given to patient, Instructed on discharge instructions, follow up and referral plans. Demonstrated understanding of instructions, follow-up care. 13:07 Patient left the ED. ph Signatures: Dispatcher [employer] Alfredo Vang MD MD cha Martinez, Amelia as Smirch, Shelby, RN RN Stella Eason RN RN Guillermina Elise Tara, RN RN 2 Lucy Teran sm3
[2018-08-23] MEDS ORDERED: ASPIRIN 81 MG CHEWABLE TABLET ONE (12:34)
[2018-08-23] MEDS ORDERED: FOLIC ACID 5 MG/ML VIAL ONE (12:34)
--- NOTE | 2018-08-23 12:39 | EKG ---
Test Date: 2018-08-23 Test Time: 10:07:35 [employer] Equipment Sales Engineer: ROXANNE MEASUREMENT RESULTS: Intervals: Rate: 102 NH: 140 QRSD: 142 QT: 380 QTc: 495 Tillson: P: 46 NH: 140 QRS: -69 T: 23 INTERPRETIVE STATEMENTS: Sinus tachycardia Possible Left atrial enlargement Right bundle branch block Left anterior fascicular block Bifascicular block Left ventricular hypertrophy Possible Lateral infarct, age undetermined Abnormal ECG Compared to ECG 08/06/2016 08:40:46 Left ventricular hypertrophy now present Myocardial infarct finding now present Sinus rhythm no longer present Bifascicular block still present Electronically Signed On 08-23-18 12:38:13 CDT by Al Kent
[2018-08-23] MEDS ORDERED: NA CHLORIDE 0.9% 1,000 ML ONE (12:44)
[2018-08-23 12:47] LABS: Blood Morphology Comment NOT SEEN (NOT SEEN); Platelet Estimate ADEQ; Urine White Blood Cell Casts OK
[2018-08-23 13:34] VITALS: BP 128/82; TEMP 97.9; O2SAT 100
== END 2018-08-23 13:07 | disposition home or self-care (01) ==
LOC: ER 09:20
DX: R42 Dizziness and giddiness (principal); R53.1 Weakness; R29.6 Repeated falls; I10 Essential (primary) hypertension; E11.9 Type 2 diabetes mellitus without complications
CPT/HCPCS: 36415; 70450; 70551; 71045; 80048; 80076; 83735; 83880; 84484; 85025; 85610; 93005; 93880; 96365; 99285; J7030

== ENCOUNTER 2020-04-23 06:04 | Day surgery (SDC) | payer BC ==
[2020-04-19 11:58] LABS: Basophils % 0.5 % (0-1.3); Hematocrit 45.9 % (39.6-49.0); MPV 10.7 fL (7.6-11.3); RBC Red Blood Cell Count 4.96 M/uL (4.33-5.43)
[2020-04-19 12:18] LABS: Potassium 4.3 mmol/L (3.5-5.1)
[2020-04-19 12:52] LABS: Protime INR 0.96
--- OUTSIDE RECORDS SUMMARY | 2020-04-23 06:07 | XMS REPORT | Summary of Care ---
:1955 Author Organization [facility] Address [address] [place] [address] Care Team Providers Name Role Phone Pcp, Patient Does Not Have A Unavailable +[phone]- [phone] Milton Portillo Primary Care Provider Reason for Visit Reason Comments Follow-up cardiac clearance Ekg done in office Encounter Details Date Type Department Care Team Description 02/21/2020 Office Visit [facility] Becki Gil M D Essential hypertension (Primary Dx); Cardiology- [address] Preop cardiovascular exam; [address] [place] [address] DRIVE Type 2 diabetes mellitus without complic ation, with long-term current use of insulin; [facility], [address] Dyslipidemia; [place], [place] [address] Abnormal EKG [id number] Allergies Active Allergy Reactions Severity Noted Date Comments Losartan Cough 10/14/2016 documented as of this encounter (statuses as of 02/21/2020) Medications Medication Sig Dispensed Refills Start Date End Date Status pantoprazole 40 mg EC Take 40 mg by 0 08/08/2016 Active tablet mouth 2 (two) times daily. amLODIPine 10 mg tablet Take 10 mg by 0 Active mouth daily. carvedilol 25 mg tablet Take 25 mg by 0 Active mouth 2 (two) times daily with meals. aspirin 81 mg EC tablet Take 81 mg by 0 Active mouth daily. GLUCOSAMINE SULFATE Take 4,000 mg 0 Active (GLUCOSAMINE ORAL) by mouth daily. guaiFENesin (MUCINEX) 600 Take 600 mg 0 Active mg tablet by mouth every 12 (twelve) hours. terazosin 2 mg capsule Take 1 30 capsule 2 03/16/2017 Active capsule by mouth at bedtime. empagliflozin (JARDIANCE) Take 1 90 tablet 3 06/30/2017 Active 25 mg TabIndications: Type TAB-CAP/M2 by 2 diabetes mellitus with mouth daily. proteinuric diabetic nephropathy metformin ER 500 mg 24 hr Take 2 360 tablet 3 06/30/2017 Active tabletIndications: Type 2 tablets by diabetes mellitus with mouth 2 (two) proteinuric diabetic times daily nephropathy with meals. atorvastatin 20 mg Take 1 tablet 90 tablet 3 06/30/2017 Active tabletIndications: by mouth at Dyslipidemia bedtime. spironolactone (ALDACTONE) Take 1 tablet 30 tablet 0 8 Active 25 mg tablet by mouth daily. TRULICITY 1.5 mg/0.5 mL INJECT 1.5MG 12 Syringe 1 12/20/2017 Active PnIjIndications: Type 2 UNDER THE diabetes mellitus with SKIN ONCE complication, with EVERY WEEK. long-term current use of insulin hydroCHLOROthiazide 25 mg Take 1 tablet 30 tablet 0 01/06/2018 Active tablet by mouth daily. TOUFRIDA SOLOSTAR U-300 INJECT 60 18 mL 0 09/21/2018 Active INSULIN 300 unit/mL (1.5 UNITS UNDER mL) InPnIndications: Type THE SKIN 2 diabetes mellitus with DAILY proteinuric diabetic nephropathy documented as of this encounter (statuses as of 02/21/2020) Active Problems Problem Noted Date Type 2 diabetes mellitus without complication, with lo ng-term current use 12/16/2016 of insulin Dyslipidemia 12/16/2016 Essential hypertension 12/16/2016 Morbid obesity due to excess calories 12/16/2016 documented as of this encounter (statuses as of 02/21/2020) Social History Tobacco Use Types Packs/Day Years Used Date Former Smoker Smokeless Tobacco: Never Used Alcohol Use Drinks/Week oz/Week Comments No Sex Assigned at Date Recorded Not on file COVID-19 Exposure Response Date Recorded In the last month, have you been in contact with No / Unsure 02/21/2020 8:24 AM SURGICAL SCRUB TECH someone who was confirmed or suspected to have Coronavirus / COVID-19? documented as of this encounter Last Filed Vital Signs Vital Sign Reading Time Taken Comments Blood Pressure 130/84 02/21/2020 8:50 AM SURGICAL SCRUB TECH Pulse 87 02/21/2020 8:50 AM SURGICAL SCRUB TECH Temperature - - Respiratory Rate - - Oxygen Saturation 97% 02/21/2020 8:50 AM SURGICAL SCRUB TECH Inhaled Oxygen Concentration - - Weight 116.3 kg (256 lb 8 oz) 02/21/2020 8:50 AM SURGICAL SCRUB TECH Height - - Body Mass Index 37.88 07/21/2017 1:09 PM CDT documented in this encounter Progress Notes Becki Gil MD - 02/21/2020 8:40 AM CST CARDIOLOGY CLINIC NOTE 02/21/2020 Reason for Referral/Presenting Complaint: HTN, preop cardiac evaluation PCP: Kaveh Portillo History of Present Illness: Devonte Gil is a 64 years old male with history of HTN, DM, obesity, hep C, liver cirrhosis, GI bleeding, varices and anemia. In 07/2016 he had 1 episode of syncope. He finished dinner and was sitting there. He had a bad cough spell and then felt dizzy and eventually passed out. He was not breathing apparently. He was red from check and above. He was admitted to [facility] where he was found to be anemic with HGB 8.6. Prior to that he did have black stool intermittently for days. He underwent EGD with banding of varices. Recently while at work he had another cough spell and he passed out again for about a minute. He said he has been having dry cough spells for 5 years. He feels dizzy with cough. He had normal ECHO and nuclear stress test in [address] Llanos. We stopped losartan. His cough has completely resolved. No further syncope. BP is well controlled with addition of terazosin and spironolactone. He was going to have bladder surgery yesterday but that was cancelled due to abnormal EKG. Feeling about the same as in 2018. EKG--02/21/2020--reviewed by me--normal sinus rhythm, LAE, RBBB, LAFB, cannot exclude anterolateral infarct--unchanged Review of Systems: General: (-) fever, (-) chills, (-) weight change, (-) dizziness, (-) fatigue Skin: (-) rash HEENT: (-) headache, (-) change in vision Neck: (-) difficulty swallowing Heme: negative Resp: (-) cough, (-) dyspnea on exertion Cardio: (-) chest pain, (-) palpitations, (-) syncope GI: (-) vomiting, (-) diarrhea : negative Endo: (+) diabetes, (-) thyroid disease Neuro: (-) numbness, (-) tingling, (-) weakness Back: (-) pain HANK: (-) muscle pain, (-) claudication Psych: (-) anxiety, (-) depression Past Medical History: Past Medical History: Diagnosis Date BPH (benign prostatic hyperplasia) Diabetes mellitus Dyslipidemia HTN (hypertension) RBBB since child Syncope 07/2016 Current Medications: Current Outpatient Medications Medication Sig Dispense Refill TOUFRIDA SOLOSTAR U-300 INSULIN 300 unit/mL (1.5 mL) InPn INJECT 60 UNITS UNDER THE SKIN DAILY 18 mL 0 hydroCHLOROthiazide 25 mg tablet Take 1 tablet by mouth daily. 30 tablet 0 TRULICITY 1.5 mg/0.5 mL PnIj INJECT 1.5MG UNDER THE SKIN ONCE EVERY WEEK. 12 Syringe 1 spironolactone (ALDACTONE) 25 mg tablet Take 1 tablet by mouth daily. 30 tablet 0 empagliflozin (JARDIANCE) 25 mg Tab Take 1 TAB-CAP/M2 by mouth daily. 90 tablet 3 metformin ER 500 mg 24 hr tablet Take 2 tablets by mouth 2 (two) times daily with meals. 360 tablet 3 terazosin 2 mg capsule Take 1 capsule by mouth at bedtime. 30 capsule 2 amLODIPine 10 mg tablet Take 10 mg by mouth daily. aspirin 81 mg EC tablet Take 81 mg by mouth daily. carvedilol 25 mg tablet Take 25 mg by mouth 2 (two) times daily with meals. GLUCOSAMINE SULFATE (GLUCOSAMINE ORAL) Take 4,000 mg by mouth daily. guaiFENesin (MUCINEX) 600 mg tablet Take 600 mg by mouth every 12 (twelve) hours. pantoprazole 40 mg EC tablet Take 40 mg by mouth 2 (two) times daily. 0 atorvastatin 20 mg tablet Take 1 tablet by mouth at bedtime. 90 tablet 3 No current facility-administered medications for this visit. Social History: Social History Socioeconomic History Marital status: Spouse name: Not on file Number of children: Not on file Years of education: Not on file Highest education level: Not on file Occupational History Not on file Social Needs Financial resource strain: Not on file Food insecurity Worry: Not on file Inability: Not on file Transportation needs Medical: Not on file Non-medical: Not on file Tobacco Use Smoking status: Former Smoker Smokeless tobacco: Never Used Substance and Sexual Activity Alcohol use: No Drug use: No Sexual activity: Not on file Lifestyle Physical activity Days per week: Not on file Minutes per session: Not on file Stress: Not on file Relationships Social connections Talks on phone: Not on file Gets together: Not on file Attends tenriism service: Not on file Active member of club or organization: Not on file Attends meetings of clubs or organizations: Not on file Relationship status: Not on file Intimate partner violence Fear of current or ex partner: Not on file Emotionally abused: Not on file Physically abused: Not on file Forced sexual activity: Not on file Other Topics Concern Not on file Social History Narrative Not on file Family History Family History Problem Relation Age of Onset Thyroid Sister Heart Father ? [place] Physical Examination: BP 130/84 | Pulse 87 | Wt 256 lb 8 oz (116.3 kg) | SpO2 97% | BMI 37.88 kg/m Constitutional: alert and oriented x 3 (person, place and date/time); no apparent distress, obese ENT: normocephalic atraumatic, supple, no lymphadenopathy, no bruits, no JVD Lungs: clear to auscultation bilaterally Cardiovascular: S1, S2 normal, regular; 2/6 SM GI: soft; non-tender; non-distended; normoactive bowel sounds : not examined Musculoskeletal: Extremities: no clubbing, cyanosis, + trace edema Skin: no rashes Neuro: no focal deficits Cardiovascular testing: EKG: Normal sinus rhythm. RBBB + LAFB Echocardiogram: 3-6 months ago Stress Test: 3-6 months ago Labs 05/14/2017 TC 182, HDL 39, TG 154, LDL 116 Cr 1.26, K 5.3 Assessment/Plan: ICD-10-CM ICD-9-CM 1. Essential hypertension I10 401.9 2. Preop cardiovascular exam Z01.810 V72.81 3. Type 2 diabetes mellitus without complication, with long-term current use of insulin E11.9 250.00 Z79.4 V58.67 4. Dyslipidemia E78.5 272.4 5. Abnormal EKG R94.31 794.31 Preop cardiac evaluation--EKG today looks the same as the one from 2017. And he had normal ECHO and stress test in 2017. No change in clinical status. His cardiac risk is low to intermediate. No further testing needed. HTN--His BP is well controlled now. Will continue HCTZ/spironolactone/terazosin/amlodipine/coreg. DM--continue metformin/Trulicity. HLD--continue lipitor. RTC PRN Becki Gil MD, FACC, MARY Psychopaedic Nurse, Division of Cardiology [facility] documented in this encounter Plan of Treatment Name Type Priority Associated Diagnoses Order S chedule EKG-12 LEAD HEART STATION Routine Preop cardiovascular exam O rdered: 02/21/2020 ROUTINE Health Maintenance Due Date Last Done Comments HEPATITIS C (HCV) SCREEN 1955 EYE EXAM 1964 Depression Screening 1966 DTaP,Tdap,and Td Vaccines (1 - 1973 Tdap) COLON CANCER SCREENING ANNUAL 2004 FIT/FOBT COLON CANCER SCREENING FIT DNA 2004 EVERY 3 YEARS COLON CANCER SCREENING 2004 SIGMOIDOSCOPY EVERY 5 YEARS COLONOSCOPY 2004 Colorectal Cancer Screening 2004 Zoster Recombinant Vaccine 2004 (SHINGRIX) (1 of 2) LUNG CANCER SCREEN: Recommended 2009 for age 55-80 with 30 + pack year history LDL-C 08/12/2017 08/12/2016 HgA1C 12/30/2017 06/30/2017, 02/06/2017, 12/16/2016, Additional history exists CREATININE (SERUM) 02/06/2018 02/06/2017, 08/12/2016 URINE MICROALBUMIN 02/06/2018 02/06/2017 FOOT EXAM 06/30/2018 06/30/2017, 06/30/2017, 03/16/2017, Additional history exists Medicare Wellness Visit 09/29/2019 PNEUMOCOCCAL VACCINES 65+ (1 of 1 09/29/2019 - PPSV23) INFLUENZA VACCINE (#1) 2019 documented as of this encounter Results Not on filedocumented in this encounter Visit Diagnoses Diagnosis Essential hypertension - Primary Unspecified essential hypertension Preop cardiovascular exam Pre-operative cardiovascular examination Type 2 diabetes mellitus without complic ation, with long-term current use of insulin Dyslipidemia Other and unspecified hyperlipidemia Abnormal EKG Nonspecific abnormal electrocardiogram ( ECG) (EKG) documented in this encounter Insurance Payer Benefit Plan Subscriber ID Effective Dates Phone Address Type / Group [facility] [id number] 2015-[place] [phone] [address] PPO/POS [facility] [id number] [place] [address] documented as of this encounter"
--- OUTSIDE RECORDS SUMMARY | 2020-04-23 06:07 | XMS REPORT | Summary of Care ---
:1955 Author Organization [facility] Address [address] [place] [address] Care Team Providers Name Role Phone Pcp, Patient Does Not Have A Unavailable +1-000-000- 0000 Milton Portillo Primary Care Provider Encounter Details Date Type Department Care Team Description 02/21/2020 Orders Only [facility] Doctor Unassigned, No [address] [facility] Name [place] [phone] [place] [phone] Allergies Active Allergy Reactions Severity Noted Date [...] 0 01/06/2018 Active tablet by mouth daily. TOUJEO SOLOSTAR U-300 INJECT 60 18 mL 0 [...] Types Packs/Day Years Used Date Former Smoker Alcohol Use Drinks/Week oz/Week Comments No Sex Assigned at Date Recorded Not on file COVID-19 Exposure Response Date Recorded In the last month, have you been in contact with No / Unsure 02/21/2020 8:24 AM NURSE LDR someone who was confirmed or suspected to have Coronavirus / COVID-19? documented as of this encounter Last Filed Vital Signs Not on filedocumented in this encounter Plan of Treatment Date Type Specialty Care Team Description 02/21/2020 Office Visit Cardiology Becki Gil M D [address] [place] [address] [phone] Health Maintenance Due Date Last Done Comments [...] (#1) 2019 documented as of this encounter Procedures Procedure Name Priority Date/Time Associated Diagnosis Comme nts CONSENT/REFUSAL FOR Routine 02/21/2020 8:26 AM NURSE LDR DIAGNOSIS AND TREATMENT documented in this encounter Results Not on filedocumented in this encounter Insurance Payer Benefit Plan Subscriber ID Effective Dates Phone Address Type / Group [employer] [facility] [id number] 2015-[place] [phone] [address] PPO/POS [place] [id number] [place] [address] documented as of this encounter
--- OUTSIDE RECORDS SUMMARY | 2020-04-23 06:07 | XMS REPORT ---
:1955 Author Organization [facility] Address [address] [place] [address] Care Team Providers Name Role Phone Eliot Horn Unavailable [phone] PROBLEMS Type Condition ICD9-CM HWZ50-HC Onset Condition SNOMED Code Notes Code Code Dates Status Problem Chronic gastritis K29.50 Active 5181669 Problem Hyperlipidemia, E78.2 Active 060500348 mixed Problem Benign essential I10 Active 2443745 hypertension Problem Erectile N52.9 Active 633230650 dysfunction Problem Urethral stricture N35.9 Active 05413554 Problem BPH without urinary N40.0 Active 305720860 obstruction Problem Gastro-esophageal K21.9 Active 169636727 reflux disease without esophagitis Problem Diaphragmatic K44.9 Active 57316093 hernia without obstruction or gangrene Problem Gastrointestinal K92.2 Active 91485723 hemorrhage Problem Dizziness R42 Active 490980167 Problem Syncope R55 Active 632967724 Problem Microalbuminuria R80.9 Active 723737648 Problem Erectile N52.9 Active 219871449 dysfunction, unspecified erectile dysfunction type Problem Hypogonadism male E29.1 Active 28032627 Problem Iron deficiency D50.0 Active 182523270 anemia due to chronic blood loss Problem Gross hematuria R31.0 Active 916625008 Problem Diabetes mellitus E11.9 Active 668153047 type 2, uncontrolled, without complications Problem Secondary I85.10 Active 20093260 esophageal varices without bleeding Problem Chronic hepatitis C B18.2 Active 333192037 Problem Adult BMI 35.0-35.9 Z68.35 Active 728983345 kg/sq m Problem Noncompliance with Z91.11 Active 959892937 dietary restriction Problem BPH (benign N40.0 Active 676536148 prostatic hyperplasia) Problem Acquired N32.0 Active 28586227 contracture of bladder neck ALLERGIES No Known Allergies ENCOUNTERS from 1955 to 2020-02-15 Encounter Location Date Provider Diagnosis [facility] [address] [place], Eliot sood Specialty/Urology [address] [place] [place], R31.0 ; [place] [address] contracture of bladder neck N3 2.0 and Erectile dysfunction, unspecified ere ctile dysfunction typ e N52.9 IMMUNIZATIONS Vaccine Route Administration Date Status Flucelvax - multidose vial IM Intramuscular Jan 10, 2019 Admi nistered FluAD IM Intramuscular Jan 15, 2020 Administered Afluria IM Intramuscular Jan 27, 2018 Administered Adacel (Tdap) IM Intramuscular Jan 27, 2018 Administered Prevnar 13 (PCV13) IM Intramuscular Jan 15, 2020 Administered SOCIAL HISTORY Tobacco Use: Social History Observation Description Date Details (start date - stop date) Never Smoker Sex Assigned At : Social History Observation Description Sex Assigned At Unknown PHQ9 Question Answer Notes Little interest or pleasure in doing things Several days Feeling down, depressed, or hopeless Several days Trouble falling or staying asleep or sleeping too much Not a t all Feeling tired or having little energy Not at all Poor appetite or overeating Several days Feeling bad about yourself, or that you are a failure, or No t at all have let yourself or your family down Trouble concentrating on things, such as reading the Not at all newspaper or watching television Moving or speaking so slowly that other people could have No t at all noticed; or the opposite, being so fidgety or restless that you have been moving around a lot more than usual Total Score 3 Interpretation Minimal Depression Thoughts that you would be better off or of hurting Not at all yourself in some way Alcohol Screen Question Answer Notes Did you have a drink containing alcohol in Yes the past year? Points 4 Interpretation Positive How many drinks did you have on a typical 1 or 2 (0 points) day when you were drinking in the past year? How often did you have a drink containing Four or more times a week (4 points) alcohol in the past year? Tobacco Use/Smoking Question Answer Notes Are you a never smoker REASON FOR REFERRAL No Information VITAL SIGNS Height 69 in Jan, Weight 255.4 lbs Jan, Temperature 98.4 degrees Fahrenheit Jan, BMI 37.71 kg/m2 Jan, Oximetry 95 % Jan, Blood pressure systolic 145 mm Hg Jan, Blood pressure diastolic 77 mm Hg Jan, MEDICATIONS Medication SIG (Take, Route, Notes Start Date End Date Status Frequency, Duration) Trulicity 1.5 MG/0.5ML Inject 0.5 ml Active Subcutaneous Once a week for 90 days Ferrous Sulfate 325 (65 1 tablet Orally Twice Active Fe) MG a day for 90 Jardiance 25 MG 1 tablet Orally Once Active a day for 90 days Toujeo SoloStar 300 INJECT 68 UNITS UNDER Active UNIT/ML THE SKIN DAILY for 58 Amlodipine Besylate 10 MG 1 cap daily Orally Active Once a day for 90 MetFORMIN HCl ER 500 MG TAKE 2 TABLETS BY Active MOUTH TWICE DAILY for 90 Coreg 25 MG 1 cap Orally BID for Act hesham 90 ProAir HFA 108 (90 Base) 2 puffs as needed Active MCG/ACT Inhalation every 6 hrs PRN COugh, Wheezing or shortness of breath for 25 Glucosamine Active Pravachol 40 MG 1 tablet Orally Once Active a day for 90 days Terazosin HCl 2 MG 1 capsule Orally Once Active a day for 90 Trelegy Ellipta 1 puff Inhalation Ac tive 100-62.5-25 MCG/INH Once a day Pantoprazole Sodium 40 MG 1 tablet Orally Once Active a day Aspirin 81 81 MG 1 tablet Orally Once Not-Taking a day Cialis 20 MG 1 tablet Orally for Jan, Feb, Act hesham 30 day(s) 2019 2019 BD Pen Needle Mini U/F 31G as directed Active X 5 MM subcutaneously with injectable pen for Trulicity 1.5 MG/0.5ML INJECT 0.5 ML Active SUBCUTANEOUSLY ONCE A WEEK. for 84 MetFORMIN HCl ER 500 2 tablets Orally Active Twice a day for 90 days Spironolactone 25 MG TAKE 1 TABLET BY Active MOUTH EVERY DAY WITH FOOD for 90 Hydrochlorothiazide 25 MG 1 tablet in the Active morning Orally Once a day for 90 Tamsulosin HCl 0.4 MG 1 capsule Orally Once Active a day for 90 days PROCEDURES No Information RESULTS No Results REASON FOR VISIT consultation MEDICAL (GENERAL) HISTORY Type Description Date Medical History Dizziness Medical History Syncope Medical History Gastrointestinal hemorrhage Medical History Secondary esophageal varices without ble eding Medical History Gastro-esophageal reflux disease without esophagitis Medical History Diaphragmatic hernia without obstruction or gangrene Medical History Chronic gastritis Medical History Diabetes mellitus type 2, uncontrolled, without complications Medical History Hyperlipidemia, mixed Medical History Benign essential hypertension Medical History Iron deficiency anemia due to chronic bl ood loss Medical History Chronic hepatitis C Medical History Erectile dysfunction Medical History Urethral stricture Medical History Hypogonadism male Medical History BPH without urinary obstruction Surgical History appendectomy 1998 Surgical History transurethral resection of the prostate (TURP) 07/2015 Surgical History Left Temporal Artery Biopsy 05/2018 Goals Section No Information Health Concerns No Information MEDICAL EQUIPMENT No Information MENTAL STATUS No Information FUNCTIONAL STATUS No Information ASSESSMENTS Encounter Date Diagnosis Assessment Notes Treatment Notes Treatm ent Clinical Notes Jan, Gross hematuria (ICD-10 - R31.0) Jan, Acquired contracture of bladder neck (ICD-10 - N32.0) Jan, Erectile dysfunction, unspecified erectile dysfunction type (ICD-10 - N52.9) PLAN OF TREATMENT Medication Medication Name Sig Start Date Stop Date Cialis 20 MG 1 tablet Orally for 30 day(s) Jan, Feb, Treatment Notes Test Name Order Date URINALYSIS AUTO W/O SCOPE ([id number]) 2020-02-15 Next Appt Details Provider Name:Eliot Horn 2020-02-20 10:00:00 AM, [address] [place] [address], [id number], Provider Name:Eliot Horn 2020-02-26 10:30:00 AM, [address] [place] [address], [id number], Provider Name:Kaveh Portillo 2020-04-09 0 8:00:00 AM, [address], [address], [phone], Provider Name:Kaveh Portillo 2020-04-16 0 1:00:00 PM, [address], [address], [phone], Insurance Providers Payer Name Payer Payer Insured Name Patient Coverage Covera ge End Address Phone Relationship to Start Date Naveen e Insured [employer] [phone] Jeffery,Hesham self 2017 and Blue [id number] [facility] [phone]
--- OUTSIDE RECORDS SUMMARY | 2020-04-23 06:07 | XMS REPORT | Summary of Care ---
:1955 Author Organization [facility] Address [address] [place] [address] Care Team Providers Name Role Phone Pcp, Patient Does Not Have A Unavailable +1-000-000- 0000 Milton Portillo Primary Care Provider Reason for Visit Reason Comments Follow-up cardiac clearance Ekg done in office Encounter Details Date Type Department Care Team Description 02/21/2020 Office Visit [facility] Becki Gil M D Essential hypertension (Primary Dx); Cardiology- [address] Preop cardiovascular exam; [address] [place] [address] DRIVE Type 2 diabetes mellitus without complic ation, with long-term current use of insulin; [facility], [address] Dyslipidemia; [place], [place] [address] Abnormal EKG [address] Allergies [...] with No / Unsure 02/21/2020 8:24 AM GUEST SERVICES REPRESENTATIVE someone who was confirmed or suspected to have Coronavirus / COVID-19? documented as of this encounter Last Filed Vital Signs Vital Sign Reading Time Taken Comments Blood Pressure 130/84 02/21/2020 8:50 AM GUEST SERVICES REPRESENTATIVE Pulse 87 02/21/2020 8:50 AM GUEST SERVICES REPRESENTATIVE Temperature - - Respiratory Rate - - Oxygen Saturation 97% 02/21/2020 8:50 AM GUEST SERVICES REPRESENTATIVE Inhaled Oxygen Concentration - - Weight 116.3 kg (256 lb 8 oz) 02/21/2020 8:50 AM GUEST SERVICES REPRESENTATIVE Height - - Body Mass Index 37.88 [...] check and above. He was admitted to [facility] where he was found to be [...] file Gets together: Not on file Attends yarsani service: Not on file Active member of [...] of Onset Thyroid Sister Heart Father ? CT Physical Examination: BP 130/84 | Pulse 87 [...] RTC PRN Becki Gil MD, FACC, MARY Cross Country Coach, Division of Cardiology [facility] documented in this encounter Plan of Treatment [...] Effective Dates Phone Address Type / Group [facility] [id number] 2015-[place]bert [phone] [address] PPO/POS [facility] [id number] [place] [address] documented as of this encounter"
--- OUTSIDE RECORDS SUMMARY | 2020-04-23 06:07 | XMS REPORT | Continuity of Care Document ---
:1955 Author Organization [facility] t Address [address] [place] [address] Care Team Providers Name Role Phone Becki Gil MD Attending Clinician Problems This patient has no known problems. Allergies, Adverse Reactions, Alerts This patient has no known allergies or adverse reactions. Medications Ordered Filled Start Stop Current Ordering Indication Dosage Frequency Signature Comments Components Source Medication Medication Date Date Medication? Clinician (SIG) Name Name Amlodipine Amlodipine Yes Virgen [address] Besylate Besylate Dustin daily [facility] Spironolact Spironolact Yes Virgen [address] [facility] one one Phill with food [facility] Jardiance Jardiance Yes Virgen [address] [facility] Phill [facility] Pantoprazol Pantoprazol Yes Virgen [address] [facility] e Sodium e Sodium Dustin Jada es [facility] Pravachol Pravachol Yes Virgen [address] [facility] Dustin [facility] Aspirin 81 Aspirin 81 Yes Virgen [address] [facility] Dustin [facility] ProAir HFA ProAir HFA Yes Virgen [address] [facility] Phill needed [facility] Trulicity Trulicity Yes Virgen Inject 0.[address] [facility] Phill ml [facility] Ferrous Ferrous Yes Virgen [address] [facility] Sulfate Sulfate Phill [facility] Glucosamine Glucosamine Yes Virgen not [facility] Phill defined [facility] Toujeo Toujeo Yes [facility]gen INJECT [facility] SoloStar SoloStar Phill UNITS Tre[facility] kes - [facility] SKIN DAILY l [facility] Terazosin Terazosin Yes Virgen [address] [facility] HCl HCl Phill [facility] MetFORMIN MetFORMIN Yes Virgen [address] [facility] HCl ER HCl ER Phill [facility] BD Pen BD Pen Yes Virgen as [facility] Needle Mini Needle Mini Dustin directed [facility] Tamsulosin Tamsulosin Yes Virgen [address] [facility] HCl HCl Phill [facility] Coreg Coreg Yes Virgen [address] [facility] Dustin [facility] Hydrochloro Hydrochloro Yes Virgen [address] [facility] thiazide thiazide Phill in the L [facility]kes [facility] Trelegy Trelegy Yes Virgen [address] [facility] Ellipta Ellipta Phill [facility] Procedures This patient has no known procedures. Encounters Start End Encounter Admission Attending Care Care Encounter Source Date/Time Date/Time Type Type Clinicians Facility Department ID 2020-04-19 2020-04-19 Outpatient [facility] [id number] [facility] 2020-04-18 2020-04-18 Outpatient [facility] [id number] [facility] 2020-04-16 2020-04-16 Outpatient [facility] [id number] [facility] 2020-02-21 2020-02-21 Office [facility] [id number] 08:27:35 08:59:59 Visit Becki Perkins [id number] [place] [id number] [facility] [id number] [address] 2020-02-19 2020-02-19 Outpatient [facility] [id number] [facility] 2020-02-19 2020-02-19 Outpatient [facility] [id number] [facility] 2020-02-15 2020-02-15 Out[facility] [id number] [facility] 2020-01-23 2020-01-23 Outpatient [facility] [id number] [facility] 2020-01-15 2020-01-15 Outpatient [facility] [id number] [facility] 2019-12-26 2019-12-26 Outpatient [facility] [id number] [facility] 2019-12-26 2019-12-26 Outpatient [facility] [id number] [facility] 2019-12-15 2019-12-15 Out[facility] [id number] [facility] 2019-12-08 2019-12-08 [facility] [id number] [facility] 13:30:00 13:30:00 t Specialty/U [facility]y [facility] Outpat[facility] ent Clinics Results This patient has no known results.
--- OUTSIDE RECORDS SUMMARY | 2020-04-23 06:07 | XMS REPORT ---
:1955 Author Organization [facility] Address [address] [place] [place] [address] Care Team Providers Name Role Phone Kaveh Portillo Unavailable [phone] PROBLEMS Type Condition ICD9-CM [id number] Onset Condition SNOMED Code Notes Code Code Dates Status Problem Chronic gastritis K29.50 Active 5701469 Problem Hyperlipidemia, E78.2 Active 991527912 mixed Problem Benign essential I10 Active 7745569 hypertension Problem Erectile N52.9 Active 435468991 dysfunction Problem Urethral stricture N35.9 Active 67864658 Problem BPH without urinary N40.0 Active 016190450 obstruction Problem Gastro-esophageal K21.9 Active 525810995 reflux disease without esophagitis Problem Diaphragmatic K44.9 Active 96929838 hernia without obstruction or gangrene Problem Gastrointestinal K92.2 Active 23010934 hemorrhage Problem Dizziness R42 Active 260409755 Problem Syncope R55 Active 252751938 Problem Microalbuminuria R80.9 Active 758611637 Problem Erectile N52.9 Active 743043012 dysfunction, unspecified erectile dysfunction type Problem Hypogonadism male E29.1 Active 49823996 Problem Iron deficiency D50.0 Active 222053673 anemia due to chronic blood loss Problem Gross hematuria R31.0 Active 259646490 Problem Diabetes mellitus E11.9 Active 697531156 type 2, uncontrolled, without complications Problem Secondary I85.10 Active 60681861 esophageal varices without bleeding Problem Chronic hepatitis C B18.2 Active 766601137 Problem Adult BMI 35.0-35.9 Z68.35 Active 628823265 kg/sq m Problem Noncompliance with Z91.11 Active 674009509 dietary restriction Problem BPH (benign N40.0 Active 637442343 prostatic hyperplasia) Problem Acquired N32.0 Active 42980083 contracture of bladder neck ALLERGIES No Known Allergies ENCOUNTERS from 1955 to 2020-02-21 Encounter Location Date Provider Diagnosis [facility] [address] [facility] [address] 23 Jan, 2020 [facility] [address] IMMUNIZATIONS Vaccine Route Administration Date Status Flucelvax [...] REASON FOR REFERRAL No Information VITAL SIGNS No information MEDICATIONS Medication SIG (Take, Route, Notes Start [...] 5 MM subcutaneously with injectable pen for 90 Trulicity 1.5 MG/0.5ML INJECT 0.5 ML Active [...] Information RESULTS No Results REASON FOR VISIT No Information MEDICAL (GENERAL) HISTORY Type Description Date Medical History Dizziness Medical History Syncope Medical History Gastrointestinal hemorrhage Medical History Secondary esophageal varices without ble edin Medical History Gastro-esophageal reflux disease without esophagitis [...] No Information FUNCTIONAL STATUS No Information ASSESSMENTS No Information PLAN OF TREATMENT Medication Medication Name Sig Start Date Stop Date Cialis 20 MG 1 tablet Orally for 30 day(s) Jan, Feb, Next Appt Details Provider Name:Eliot Horn, 2020-02-26 10:30:00 AM, [address] [place] [address], [address], [address], Provider Name:Eliot Horn 2020-03-19 10:00:00 AM, [address] [place] [address], [phone], Provider Name:Kaveh Portillo, 2020-04-09 0 8:00:00 AM, [address], [facility] [address], [place], [address], Provider Name:Kaveh Portillo, 2020-04-16 0 1:00:00 PM, [address], [facility] [address], [place], [address], Insurance Providers Payer Name Payer Payer Insured Name Patient Coverage Covera ge End Address Phone Relationship to Start Date Naveen e Insured [employer] [phone] Jeffery,Hesham self 2018 and Blue [id number] [address] [place] [phone]
--- OUTSIDE RECORDS SUMMARY | 2020-04-23 06:08 | XMS REPORT ---
:1955 Author Organization [facility] Address [address] [place], [address] [place] [address] Care Team Providers Name Role Phone Kaveh Portillo Unavailable [phone] PROBLEMS Type Condition ICD9-CM [id number] Onset Condition SNOMED Code Notes Code Code Dates Status Problem Erectile N52.9 Active 143092229 dysfunction Problem Chronic gastritis K29.50 Active 1115865 Problem BPH without N40.0 Active 384096048 urinary obstruction Problem Benign essential I10 Active 0043255 hypertension Problem Gastrointestinal K92.2 Active 31034259 hemorrhage Problem Urethral stricture N35.9 Active 63732842 Problem Diabetes mellitus E11.9 Active 174173607 type 2, uncontrolled, without complications Problem Secondary I85.10 Active 06735900 esophageal varices without bleeding Problem Gastro-esophageal K21.9 Active 574575992 reflux disease without esophagitis Problem Diaphragmatic K44.9 Active 44199941 hernia without obstruction or gangrene Problem Syncope R55 Active 432234542 Problem Microalbuminuria R80.9 Active 621759944 Problem Adult BMI Z68.35 Active 380604303 35.0-35.9 kg/sq m Problem Erectile N52.9 Active 965552234 dysfunction, unspecified erectile dysfunction type Problem Dizziness R42 Active 460386034 Problem Chronic hepatitis B18.2 Active 747504451 C Problem Gross hematuria R31.0 Active 318443920 Problem Hypogonadism male E29.1 Active 81896051 Problem Iron deficiency D50.0 Active 239209086 anemia due to chronic blood loss Problem Hyperlipidemia, E78.2 Active 385517167 mixed Problem Noncompliance with Z91.11 Active 802883906 dietary restriction Problem BPH (benign N40.0 Active 136676121 prostatic hyperplasia) Problem Allergic rhinitis J45.20 Active 14310238246311 7 with mild intermittent asthma without status asthmaticus without complication Problem Acquired N32.0 Active 25136084 contracture of bladder neck ALLERGIES No Known Allergies ENCOUNTERS from 1955 to 2020-04-18 Encounter Location Date Provider Diagnosis [facility] [address], [facility] mellitus type Family [facility] [address], [place] [address] without compli cations E11.9 and Benig n essential hyper tension I10 IMMUNIZATIONS Vaccine Route Administration Date Status Flucelvax [...] Start Date End Date Status Frequency, Duration) Spironolactone 25 MG 1 tablet with food Active Orally Once a day for 90 days BD Pen Needle Mini U/F 31G as directed Active X 5 MM subcutaneously with injectable pen for 30 Amlodipine Besylate 10 MG 1 tablet Orally Once Active a day for 90 days Trulicity 1.5 MG/0.5ML INJECT 0.5 ML Active SUBCUTANEOUSLY ONCE A WEEK. for 84 Ferrous Sulfate 325 (65 Fe) 1 tablet Orally Twice Active MG a day for 90 days Ferrous Sulfate 325 (65 Fe) 1 tablet Orally Twice Active MG a day for 90 Hydrochlorothiazide 25 MG 1 tablet in the Active morning Orally Once a day for 90 Tamsulosin HCl 0.4 MG 1 capsule Orally Once Active a day for 90 Toujeo SoloStar 300 UNIT/ML 68 units Subcutaneous Active daily for 90 days Toujeo SoloStar 300 UNIT/ML INJECT 68 UNITS UNDER Active THE SKIN DAILY for 57 Coreg 25 MG 1 cap Orally BID for Act hesham 90 ProAir HFA 108 (90 Base) 2 puffs as needed Active MCG/ACT Inhalation every 6 hrs PRN COugh, Wheezing or shortness of breath for 75 Coreg 25 MG 1 tablet with food Activ e Orally Twice a day for 90 days Trulicity 1.5 MG/0.5ML Inject 0.5 ml Active Subcutaneous Once a week for 84 days Aspirin 81 81 MG 1 tablet Orally Once Not-Taking a day Hydrochlorothiazide 25 MG 1 tablet in the Active morning Orally Once a day for 90 days Amlodipine Besylate 10 MG 1 cap daily Orally Active Once a day for 90 Jardiance 25 MG 1 tablet Orally Once Active a day for 90 days Pravastatin Sodium 40 MG TAKE 1 TABLET BY Active MOUTH EVERY DAY for 90 Glucosamine Active Terazosin HCl 2 MG 1 capsule at bedtime Active Orally Once a day for 90 days Pantoprazole Sodium 40 MG 1 tablet Orally Once Active a day Spironolactone 25 MG TAKE 1 TABLET BY Active MOUTH EVERY DAY WITH FOOD for 90 MetFORMIN HCl ER 500 2 tablets Orally Active Twice a day for 90 days Pravachol 40 MG 1 tablet Orally Once Active a day for 90 days Trelegy Ellipta 100-62.5-25 1 puff Inhalation Active MCG/INH Once a day for 90 days MetFORMIN HCl ER 500 MG TAKE 2 TABLETS BY Active MOUTH TWICE DAILY for 90 PROCEDURES No Information RESULTS No Results REASON FOR VISIT refill terazosin,trelegy,amlodipine,coreg,spironolactone,metformin,trulicity MEDICAL (GENERAL) HISTORY Type Description Date Medical [...] Notes Treatment Notes Treatm ent Clinical Notes Mar, Diabetes mellitus type 2, uncontrolled, without complications (ICD-10 - E11.9) Mar, Benign essential hypertension (ICD-10 - I10) PLAN OF TREATMENT Medication Medication Name Sig Start Date Stop Date MetFORMIN HCl ER 500 2 tablets Orally Twice a day for 90 days Trelegy Ellipta 100-62.5-25 MCG/INH 1 puff Inhalation Once a day for 90 days Coreg 25 MG 1 tablet with food Orally Twice a day for 90 days Pravachol 40 MG 1 tablet Orally Once a day for 90 days Spironolactone 25 MG 1 tablet with food Orally Once a day for 90 days Amlodipine Besylate 10 MG 1 tablet Orally Once a day for 90 days ProAir HFA 108 (90 Base) MCG/ACT 2 puffs as needed Inhalation every 6 hrs PRN COugh, Wheezing or shortness of breath for 75 Hydrochlorothiazide 25 MG 1 tablet in the morning Orally Once a day for 90 days Terazosin HCl 2 MG 1 capsule at bedtime Orally Once a day for 90 days Trulicity 1.5 MG/0.5ML Inject 0.5 ml Subcutaneous Once a week for 84 days Ferrous Sulfate 325 (65 Fe) MG 1 tablet Orally Twice a day for 90 days Jardiance 25 MG 1 tablet Orally Once a day for 90 days Toujeo SoloStar 300 UNIT/ML 68 units Subcutaneous daily for 90 days Next Appt Details Provider Name:Eliot Horn, 08:00:00 AM, [address] [facility], [place], [address], Provider Name:Kaveh Portillo, 2020-07-08 08:00:00 AM, [address], [facility], [place], [address], Provider Name:Kaveh Portillo, 2020-07-15 02:20:00 PM, [address], [facility], [place], [address], Insurance Providers Payer Name Payer Payer Insured Name Patient Coverage Covera ge End Address Phone Relationship to Start Date Naveen e Insured [employer] [phone] Jeffery,Hesham self 2018 and Blue [id number] [facility] [address]
--- OUTSIDE RECORDS SUMMARY | 2020-04-23 06:08 | XMS REPORT ---
:1955 Author Organization [facility] Address [address] [place], [address] [place] [address] Care Team Providers Name Role Phone Kaveh Portillo Unavailable [phone] PROBLEMS Type Condition ICD9-CM [id number] Onset Condition SNOMED Code Notes Code Code Dates Status Problem Chronic gastritis K29.50 Active 0699743 Problem Hyperlipidemia, E78.2 Active 656364903 mixed Problem Benign essential I10 Active 7751399 hypertension Problem Erectile N52.9 Active 778904972 dysfunction Problem Urethral stricture N35.9 Active 47000945 Problem BPH without urinary N40.0 Active 342432607 obstruction Problem Gastro-esophageal K21.9 Active 559559499 reflux disease without esophagitis Problem Diaphragmatic K44.9 Active 26347045 hernia without obstruction or gangrene Problem Gastrointestinal K92.2 Active 36592264 hemorrhage Problem Dizziness R42 Active 302828886 Problem Syncope R55 Active 006445489 Problem Microalbuminuria R80.9 Active 641785489 Problem Erectile N52.9 Active 803106098 dysfunction, unspecified erectile dysfunction type Problem Hypogonadism male E29.1 Active 30468315 Problem Iron deficiency D50.0 Active 559560652 anemia due to chronic blood loss Problem Gross hematuria R31.0 Active 583655789 Problem Diabetes mellitus E11.9 Active 203276051 type 2, uncontrolled, without complications Problem Secondary I85.10 Active 56883302 esophageal varices without bleeding Problem Chronic hepatitis C B18.2 Active 962366939 Problem Adult BMI 35.0-35.9 Z68.35 Active 335208568 kg/sq m Problem Noncompliance with Z91.11 Active 316714507 dietary restriction Problem BPH (benign N40.0 Active 049253722 prostatic hyperplasia) Problem Acquired N32.0 Active 09787676 contracture of bladder neck ALLERGIES No Known Allergies ENCOUNTERS from 1955 to 2020-02-28 Encounter Location Date Provider Diagnosis [facility] [address] 23 Jan, 2020 [place] [address] IMMUNIZATIONS Vaccine Route Administration Date Status Flucelvax [...] Start Date End Date Status Frequency, Duration) Pravastatin Sodium 40 MG TAKE 1 TABLET BY Active MOUTH EVERY DAY for 90 Amlodipine Besylate 10 MG 1 cap daily Orally Active Once a day for 90 Coreg 25 MG 1 cap Orally BID for Act hesham 90 Toujeo SoloStar 300 INJECT 68 UNITS UNDER Active UNIT/ML THE SKIN DAILY for 58 Jardiance 25 MG 1 tablet Orally Once Active a day for 90 days MetFORMIN HCl ER 500 MG TAKE 2 TABLETS BY Active MOUTH TWICE DAILY for 90 Trulicity 1.5 MG/0.5ML INJECT 0.5 ML Active SUBCUTANEOUSLY ONCE A WEEK. for 84 ProAir HFA 108 (90 Base) 2 puffs [...] 1 tablet Orally Once Active a day Tamsulosin HCl 0.4 MG 1 capsule Orally Once Active a day for 90 days Cialis 20 MG 1 tablet Orally for Jan, Feb, Act hesham 30 day(s) 2019 2019 BD Pen Needle Mini U/F 31G as directed Active X 5 MM subcutaneously with injectable pen for 90 Aspirin 81 81 MG 1 tablet Orally Once Not-Taking a day MetFORMIN HCl ER 500 2 tablets Orally Active Twice a day for 90 days Spironolactone 25 MG TAKE 1 TABLET BY Active MOUTH EVERY DAY WITH FOOD for Hydrochlorothiazide 25 MG 1 tablet in the Active morning Orally Once a day for 90 Ferrous Sulfate 325 (65 1 tablet Orally Twice Active Fe) MG a day for 90 PROCEDURES No Information RESULTS No Results REASON FOR VISIT Cardiac clearance for urology surgical clearance. MEDICAL (GENERAL) HISTORY Type Description Date Medical [...] Medication Name Sig Start Date Stop Date Trulicity 1.5 MG/0.5ML INJECT 0.5 ML SUBCUTANEOUSLY ONCE A WEEK. for 84 Pravastatin Sodium 40 MG TAKE 1 TABLET BY MOUTH EVERY DAY for 90 Cialis 20 MG 1 tablet Orally for 30 day(s) Jan, Feb, Next Appt Details Provider Name:Eliot Horn, 2020-03-19 09:00:00 AM, [address] [place] [address], [facility] [address], [place], [address], Provider Name:Kaveh Portillo, 2020-04-09 0 8:00:00 AM, [address], [facility] [address], [place], [address], Provider Name:Kaveh Portillo, 2020-04-16 0 1:00:00 PM, [address], [facility] [address], [place], [address], Insurance Providers Payer Name Payer Payer Insured Name Patient Coverage Covera End Address Phone Relationship to Start Date Naveen e Insured [employer] [phone] Jeffery,Hesham self 2018 and Blue [id number] [facility] [address]
--- OUTSIDE RECORDS SUMMARY | 2020-04-23 06:08 | XMS REPORT ---
:1955 Author Organization [facility] Address [address] [place], [address] [place] [address] Care Team Providers Name Role Phone Kaveh Portillo Unavailable [phone] PROBLEMS Type Condition ICD9-CM [id number] Onset Condition SNOMED Code Notes Code Code Dates Status Problem Erectile N52.9 Active 022844369 dysfunction Problem Chronic gastritis K29.50 Active 7620630 Problem BPH without N40.0 Active 805435357 urinary obstruction Problem Benign essential I10 Active 6213725 hypertension Problem Gastrointestinal K92.2 Active 95728116 hemorrhage Problem Urethral stricture N35.9 Active 12304215 Problem Diabetes mellitus E11.9 Active 543234408 type 2, uncontrolled, without complications Problem Secondary I85.10 Active 75835637 esophageal varices without bleeding Problem Gastro-esophageal K21.9 Active 838763875 reflux disease without esophagitis Problem Diaphragmatic K44.9 Active 96338598 hernia without obstruction or gangrene Problem Syncope R55 Active 837026277 Problem Microalbuminuria R80.9 Active 705063976 Problem Adult BMI Z68.35 Active 637950483 35.0-35.9 kg/sq m Problem Erectile N52.9 Active 688594353 dysfunction, unspecified erectile dysfunction type Problem Dizziness R42 Active 030039736 Problem Chronic hepatitis B18.2 Active 335767556 C Problem Gross hematuria R31.0 Active 693631277 Problem Hypogonadism male E29.1 Active 04766982 Problem Iron deficiency D50.0 Active 377226117 anemia due to chronic blood loss Problem Hyperlipidemia, E78.2 Active 105855701 mixed Problem Noncompliance with Z91.11 Active 049820681 dietary restriction Problem BPH (benign N40.0 Active 111424042 prostatic hyperplasia) Problem Allergic rhinitis J45.20 Active 58805939178895 7 with mild intermittent asthma without status asthmaticus without complication Problem Acquired N32.0 Active 87352181 contracture of bladder neck ALLERGIES No Known Allergies ENCOUNTERS from 1955 to 2020-04-16 Encounter Location Date Provider Diagnosis [facility] [place] [address] [place], [facility]ly [facility] Portillo Diabetes mellitus type Drive [address] [place], [address], uncon[place], [place] [address] complications E11.9 ; Hyperlipidemia, mixed E78.2 ; Benign essential hypertension I1 0 ; Microalbuminuri a R80.9 ; Iron deficiency anemia due to chronic blood loss D50.0 ; Ch ronic hepatitis C B18 .2 ; Adult BMI 35.0- 35.9 kg/sq m Z68.35 ; Noncompliance w/medication tr eatment due to intermit use of medication Z91. 14 ; Noncompliance w ith dietary restric tion Z91.11 and Anand rgic rhinitis with m ild intermittent as thma without status asthmaticus wit hout complication J4 5.20 IMMUNIZATIONS Vaccine Route Administration Date Status Flucelvax [...] No Information VITAL SIGNS Height 69 in Mar, Weight 254.1 lbs Mar, Temperature 97.9 degrees Fahrenheit Mar, BMI 37.52 kg/m2 Mar, Oximetry 95 % Mar, Respiratory Rate 19 /min Mar, Blood pressure systolic 136 mm Hg Mar, Blood pressure diastolic 73 mm Hg Mar, MEDICATIONS Medication SIG (Take, Route, Notes Start Date End Date Status Frequency, Duration) Hydrochlorothiazide 25 MG 1 tablet in the Active morning Orally Once a day for 90 BD Pen Needle Mini U/F 31G as directed Active X 5 MM subcutaneously with injectable pen for 30 MetFORMIN HCl ER 500 2 tablets Orally Active Twice a day for 90 days Trulicity 1.5 MG/0.5ML INJECT 0.5 ML Active SUBCUTANEOUSLY ONCE A WEEK. for 84 Toujeo SoloStar 300 UNIT/ML 68 units Subcutaneous Active daily for 90 days Ferrous Sulfate 325 (65 Fe) 1 tablet Orally Twice Active MG a day for 90 Ferrous Sulfate 325 (65 Fe) 1 tablet Orally Twice Active MG a day for 90 days Tamsulosin HCl 0.4 MG 1 capsule Orally Once Active a day for 90 Trulicity 1.5 MG/0.5ML Inject 0.5 ml Active Subcutaneous Once a week for 90 days Toujeo SoloStar 300 UNIT/ML INJECT 68 UNITS UNDER Active THE SKIN DAILY for 57 Spironolactone 25 MG 1 tablet with food Active Orally Once a day for 90 days Pantoprazole Sodium 40 MG 1 tablet Orally Once Active a day Glucosamine Active Coreg 25 MG 1 cap Orally BID for Act hesham 90 Aspirin 81 81 MG 1 tablet Orally Once Not-Taking a day Trelegy Ellipta 100-62.5-25 1 puff Inhalation Active MCG/INH Once a day ProAir HFA 108 (90 Base) 2 puffs as needed Active MCG/ACT Inhalation every 6 hrs PRN COugh, Wheezing or shortness of breath for 75 Jardiance 25 MG 1 tablet Orally Once Active a day for 90 days Pravastatin Sodium 40 MG TAKE 1 TABLET BY Active MOUTH EVERY DAY for 90 Hydrochlorothiazide 25 MG 1 tablet in the Active morning Orally Once a day for 90 days Amlodipine Besylate 10 MG 1 cap daily Orally Active Once a day for 90 Amlodipine Besylate 10 MG 1 cap daily Orally Active Once a day for 90 days Coreg 25 MG 1 cap Orally BID for Act hesham 90 days Spironolactone 25 MG TAKE 1 TABLET BY Active MOUTH EVERY DAY WITH FOOD for 90 Terazosin HCl 2 MG 1 capsule Orally Once Active a day for 90 days Pravachol 40 MG 1 tablet Orally Once Active a day for 90 days MetFORMIN HCl ER 500 MG TAKE 2 TABLETS BY Active MOUTH TWICE DAILY for 90 PROCEDURES No Information RESULTS No Results REASON FOR VISIT 3 [facility] lab f/u [facility] MEDICAL (GENERAL) HISTORY Type Description Date Medical [...] ent Clinical Notes Mar, Diabetes mellitus type WORSENING--> 2, uncontrolled, IMPROVING: without complications Encouraged to be (ICD-10 - E11.9) compliant with diet and medications. Education given. , Diabetes Education Diabetes is a disorder that disrupts the way your body uses glucose (sugar). It is a chronic medication condition that requires regular monitoring and treatment throughout your life. Treatment includes: lifestyle modification, self-care measures, and medication. Fortunately, these treatments can keep the blood sugar levels close to normal and minimize the risk of developing complications. The primary blood test to measure the progress of diabetes is the Hemoglobin A1c. Normal levels is less than 7.0 but less than 6.5 is considered excellent control. Fasting blood sugars should be in the range of 80-120 while random blood sugars should range below 200 especially after meals. Carbohydrate (sugar) intake for diabetics should be below 45 grams per meal and 15 grams per snack. Diabetic preventive care is vital to prevent complications, so it is important to have yearly diabetic eye and foot exams with specialists. If your diabetes is not controlled, then contact your doctor to further address.Medication may need to be adjusted and/or added. Mar, Hyperlipidemia, mixed Increased to 40 (ICD-10 - E78.2) mg. SIde effect discussed. Mar, Benign essential Stable. Will hypertension (ICD-10 - monitor. , HTN I10) Education This is a condition that puts at risk for heart attack, stroke, and kidney disease. Lifestyle modification, low fat/low salt diet, exercise, low alcohol intake and medication is utilized to help control your BP. Untreated HTN increases the strain on the heart and arteries, eventually causing organ damage.Normal BP is less than 140/90. High BP is greater than 140/90. If your BP is not controlled, call your doctor. Medication may need to be adjusted and/or added. Compliance with medication is vital. If you have chest pain, shortness of breath, severe nausea/vomiting, fatigue, and other symptoms, you will need to contact your doctor or go to the ER immediately to address. Mar, Microalbuminuria Stopped due to (ICD-10 - R80.9) cough. Will monitor. Mar, Iron deficiency anemia Asymptomatic. due to chronic blood Education given. loss (ICD-10 - D50.0) Mar, Chronic hepatitis C Will montor. (ICD-10 - B18.2) Education given. Mar, Adult BMI 35.0-35.9 Counseling given. kg/sq m (ICD-10 - Education given. Z68.35) Mar, Noncompliance Encouraged on w/medication treatment compliance. due to intermit use of Education given. medication (ICD-10 - Z91.14) Mar, Noncompliance with dietary restriction (ICD-10 - Z91.11) Mar, Allergic rhinitis with mild intermittent asthma without status asthmaticus without complication (ICD-10 - J45.20) Mar, Other -- Medication reviewed and updated. -- Dietary and Lifestyle modifications addressed regarding diet, exercise and weight management. -- Treatment options, risks and benefits, side effects reviewed in detail. -- Advised on signs/symptoms to monitor and when to call clinic and/or visit the nearest ER. Patient verbalized understanding and agreeable with plan. PLAN OF TREATMENT Medication Medication Name Sig Start Date Stop Date Terazosin HCl 2 MG 1 capsule Orally Once a day for 90 days Pravachol 40 MG 1 tablet Orally Once a day for 90 days Hydrochlorothiazide 25 MG 1 tablet in the morning Orally Once a day for 90 days Trulicity 1.5 MG/0.5ML Inject 0.5 ml Subcutaneous Once a week for 90 days Coreg 25 MG 1 cap Orally BID for 90 days Jardiance 25 MG 1 tablet Orally Once a day for 90 days Toujeo SoloStar 300 UNIT/ML 68 units Subcutaneous daily for 90 days Ferrous Sulfate 325 (65 Fe) MG 1 tablet Orally Twice a day for 90 days Spironolactone 25 MG 1 tablet with food Orally Once a day for 90 days Amlodipine Besylate 10 MG 1 cap daily Orally Once a day for 90 days MetFORMIN HCl ER 500 2 tablets Orally Twice a day for 90 days ProAir HFA 108 (90 Base) MCG/ACT 2 puffs as needed Inhalation every 6 hrs PRN COugh, Wheezing or shortness of breath for 75 Treatment Notes Assessment Notes Clinical Notes Diabetes mellitus type 2, WORSENING--> IMPROVING: uncontrolled, without complications Encouraged to be complia nt with diet and medications. Education given. , Diabetes Education Diabetes is a disorder that disrupts the way your body uses glucose (sugar). It is a chronic medication condition that requires regular monitoring and treatment throughout your life. Treatment includes: lifestyle modification, self-care measures, and medication. Fortunately, these treatments can keep the blood sugar levels close to normal and minimize the risk of developing complications. The primary blood test to measure the progress of diabetes is the Hemoglobin A1c. Normal levels is less than 7.0 but less than 6.5 is considered excellent control. Fasting blood sugars should be in the range of 80-120 while random blood sugars should range below 200 especially after meals. Carbohydrate (sugar) intake for diabetics should be below 45 grams per meal and 15 grams per snack. Diabetic preventive care is vital to prevent complications, so it is important to have yearly diabetic eye and foot exams with specialists. If your diabetes is not controlled, then contact your doctor to further address.Medication may need to be adjusted and/or added. Hyperlipidemia, mixed Increased to 40 mg. SIde effect discussed. Benign essential hypertension Stable. Will monitor. , HTN Education This is a condition that puts at risk for heart attack, stroke, and kidney disease. Lifestyle modification, low fat/low salt diet, exercise, low alcohol intake and medication is utilized to help control your BP. Untreated HTN increases the strain on the heart and arteries, eventually causing organ damage.Normal BP is less than 140/90. High BP is greater than 140/90. If your BP is not controlled, call your doctor. Medication may need to be adjusted and/or added. Compliance with medication is vital. If you have chest pain, shortness of breath, severe nausea/vomiting, fatigue, and other symptoms, you will need to contact your doctor or go to the ER immediately to address. Microalbuminuria Stopped due to cough. Will monitor. Iron deficiency anemia due to chronic Asymptomatic. Educatio n given. blood loss Chronic hepatitis C Will montor. Education given. Adult BMI 35.0-35.9 kg/sq m Counseling given. Education given. Noncompliance w/medication treatment Encouraged on complianc e. due to intermit use of medication Education given. Treatment Notes Test Name Order Date Lipid Panel With LDL/HDL Ratio 2020-04-16 Ferritin, Serum 2020-04-16 Microalbumin/Creat Ratio, Random Ur 2020-04-16 Hemoglobin A1c 2020-04-16 Comp. Metabolic Panel (14) (CMP) 2020-04-16 CBC With Differential/Platelet 2020-04-16 Next Appt Details 3 Months + Labs 1 week Reason: Provider Name:Eliot Horn, 08:00:00 AM, [address] [place] [address], [facility] [address], [place], [address], Provider Name:Kaveh Portillo, 2020-07-08 08:00:00 AM, [address], [facility] [address], [place], [address], Provider Name:Kaveh Portillo, 2020-07-15 02:20:00 PM, [address], [address], [place], [address], Insurance Providers Payer Name Payer Payer Insured Name Patient Coverage Covera ge End Address Phone Relationship to Start Date Naveen e Insured [employer] [phone] Jeffery,Hesham self 2018 and Blue [id number] [address] [facility] [address]
--- OUTSIDE RECORDS SUMMARY | 2020-04-23 06:08 | XMS REPORT ---
:1955 Author Organization [facility] Address [address] [place], [address] [place] [address] Care Team Providers Name Role Phone Kaveh Portillo Unavailable [phone] PROBLEMS Type Condition ICD9-CM [id number] Onset Condition SNOMED Code Notes Code Code Dates Status Problem Erectile N52.9 Active 891974485 dysfunction Problem Chronic gastritis K29.50 Active 2763610 Problem BPH without N40.0 Active 945503428 urinary obstruction Problem Benign essential I10 Active 5551761 hypertension Problem Gastrointestinal K92.2 Active 61512426 hemorrhage Problem Urethral stricture N35.9 Active 84629272 Problem Diabetes mellitus E11.9 Active 230449166 type 2, uncontrolled, without complications Problem Secondary I85.10 Active 59041899 esophageal varices without bleeding Problem Gastro-esophageal K21.9 Active 861987521 reflux disease without esophagitis Problem Diaphragmatic K44.9 Active 41815165 hernia without obstruction or gangrene Problem Syncope R55 Active 716558860 Problem Microalbuminuria R80.9 Active 698383227 Problem Adult BMI Z68.35 Active 755145863 35.0-35.9 kg/sq m Problem Erectile N52.9 Active 621455472 dysfunction, unspecified erectile dysfunction type Problem Dizziness R42 Active 144260275 Problem Chronic hepatitis B18.2 Active 482554539 C Problem Gross hematuria R31.0 Active 805065296 Problem Hypogonadism male E29.1 Active 10300292 Problem Iron deficiency D50.0 Active 166674731 anemia due to chronic blood loss Problem Hyperlipidemia, E78.2 Active 623608716 mixed Problem Noncompliance with Z91.11 Active 572304368 dietary restriction Problem BPH (benign N40.0 Active 445322333 prostatic hyperplasia) Problem Allergic rhinitis J45.20 Active 76676092181030 7 with mild intermittent asthma without status asthmaticus without complication Problem Acquired N32.0 Active 47915251 contracture of bladder neck ALLERGIES No Known Allergies ENCOUNTERS from 1955 to 2020-04-19 Encounter Location Date Provider Diagnosis [facility] [address] [facility] [address], [place] [address] IMMUNIZATIONS Vaccine Route Administration Date Status Flucelvax [...] Start Date End Date Status Frequency, Duration) ProAir HFA 108 (90 Base) 2 puffs as needed Active MCG/ACT Inhalation every 6 hrs PRN COugh, Wheezing or shortness of breath for 75 BD Pen Needle Mini U/F 31G as directed Active X 5 MM subcutaneously with injectable pen for 30 Spironolactone 25 MG 1 tablet with food [...] UNDER Active THE SKIN DAILY for 57 Amlodipine Besylate 10 MG 1 cap daily Orally Active Once a day for 90 Coreg 25 MG 1 cap Orally BID for Act hesham 90 Coreg 25 MG 1 tablet with food Activ e Orally Twice a day for 90 days Terazosin HCl 2 MG 1 capsule at bedtime Active Orally Once a day for 90 days Aspirin 81 81 MG 1 tablet Orally Once Not-Taking a day Hydrochlorothiazide 25 MG 1 tablet in the Active morning Orally Once a day for 90 days Trulicity 1.5 MG/0.5ML Inject 0.5 ml Active Subcutaneous Once a week for 84 days Jardiance 25 MG 1 tablet Orally Once Active a day for 90 days Pravastatin Sodium 40 MG TAKE 1 TABLET BY Active MOUTH EVERY DAY for 90 Glucosamine Active Amlodipine Besylate 10 MG 1 tablet Orally Once Active a day for 90 days Pantoprazole Sodium [...] Information RESULTS No Results REASON FOR VISIT disregard prev [facility] MEDICAL (GENERAL) HISTORY Type Description Date Medical [...] Wheezing or shortness of breath for 75 Spironolactone 25 MG 1 tablet with food Orally Once a day for 90 days Trulicity 1.5 MG/0.5ML Inject 0.5 ml Subcutaneous Once a week for 84 days Hydrochlorothiazide 25 MG 1 tablet in the morning Orally Once a day for 90 days Amlodipine Besylate 10 MG 1 tablet Orally Once a day for 90 days Terazosin HCl 2 MG 1 capsule at bedtime Orally Once a day for 90 days Ferrous Sulfate 325 (65 Fe) MG 1 tablet Orally Twice a day for 90 days Jardiance 25 MG 1 tablet Orally Once a day for 90 days Toujeo SoloStar 300 UNIT/ML 68 units Subcutaneous daily for 90 days Next Appt Details Provider Name:Eliot Horn, 08:00:00 AM, [address] [place] [address], [address], [address], Provider Name:Kaveh Portillo, 2020-07-08 08:00:00 AM, [address] [place] [address], [address], [address], Provider Name:Kaveh Portillo, 2020-07-15 02:20:00 PM, [address], [address], [place], [address], Insurance Providers Payer Name Payer Payer Insured Name Patient Coverage Covera End Address Phone Relationship to Start Date Naveen e Insured [employer] [phone] Jeffery,Hesham self 2018 and Blue [id number] [address] [place] [id number]
[2020-04-23] MEDS ORDERED: NA CHLORIDE 0.9% 1,000 ML ONE (06:40)
[2020-04-23] MEDS ORDERED: Gentamicin Inj 240 MG in NA CHLORIDE 0.9% 100 ML IV SCH (07:00)
[2020-04-23] MEDS ORDERED: AMPICILLIN SODIUM 2 GM in NA CHLORIDE 0.9% 100 ML IVPB SCH (07:00)
[2020-04-23] MEDS ORDERED: propofoL 200 MG/20 ML VIAL IV ONE (07:35)
[2020-04-23] MEDS ORDERED: FENTANYL CITR 100 MCG/2 ML ONE (07:35)
[2020-04-23] MEDS ORDERED: LIDOCAINE 1% MPF 5 ML VIAL ONE (07:36)
[2020-04-23] MEDS ORDERED: MIDAZOLAM HCL 2 MG/2 ML INJ ONE (07:36)
[2020-04-23] MEDS ORDERED: EPHEDRINE SULF 50 MG/ML VIAL ONE (08:16)
[2020-04-23] MEDS ORDERED: NS 0.9% VIAL 10 ML ONE ×2 (08:16→08:41)
[2020-04-23] MEDS ORDERED: KETOROLAC 30 MG/ML INJ ONE (08:27)
[2020-04-23] MEDS ORDERED: ONDANSETRON 4 MG/2 ML VIAL ONE (08:27)
[2020-04-23] MEDS ORDERED: Phenylephrine HCl 10 MG/ML 1 ML VIAL ONE (08:41)
[2020-04-23] MEDS ORDERED: HYDROCODONE/APAP 5/325 MG TAB PO PRN (08:53)
[2020-04-23] MEDS ORDERED: PHENAZOPYRIDINE 100MG TAB PO ONE (08:53)
--- NOTE | 2020-04-23 09:04 | RAD REPORT ---
EXAM DESCRIPTION: RAD - Urethrocystogrphy Retrograde - 04/23/2020 8:39 am FINDINGS: There were 6 intraoperative KUB images submitted from fluoroscopic assisted retrograde ure terograms. No gross abnormality seen. Exam is limited when only selected images are available. Fluoro time was 0.13 minutes
[2020-04-23] MEDS: HYDROMORPHONE HCL 1 MG/ML INJ ONE ×2 (09:05→09:10)
[2020-04-23 09:16] VITALS: TEMP 97.6
[2020-04-23 09:43] VITALS: BP 119/74; O2SAT 97
--- NOTE | 2020-04-23 09:50 | OP ---
Surgeon: SHARIF OSWALD Preoperative Diagnoses: 1.Gross hematuria. 2.Bladder neck contracture. 3.History of transurethral resection of the prostate. Postoperative Diagnoses: 1.Gross hematuria. 2.Bladder neck contracture. 3.History of transurethral resection of the prostate. Principle Procedures: 1.Cystoscopy, transurethral resection of a bladder neck. 2.Bilateral retrograde pyelography. Indication For Procedure: Mr. Gil presented to the Urology Clinic in followup of a cystoscopic evaluation performed by Dr. Mcconnell several months ago. He had interval development of gross hematuri a, and because of the presence of the bladder neck contracture was recommended for operative manageme nt. He presents today for that recognizing the potential need to manage any bladder calculi or tumor s as noted. Procedure In Detail: The patient was consented in the preoperative holding area before being transfe rred to the operative suite where general anesthesia was induced. He was given ampicillin and gentam icin IV antimicrobial prophylaxis. Pneumo boots were provided for DVT prophylaxis. He was placed in the lithotomy position, padded and secured to the table appropriately. The case was begun after his genitalia were prepped using Hibiclens and draped in standard fashion. Using urethral sounds to dil ate his meatus and fossa navicularis to 30-Fijian, once this was performed, I was able to pass the 26 -Fijian bipolar Olympus resectoscope sheath using a visual package lift operator via the urethra and beyond the ur ethral sphincter to a very tight bladder neck contracture approximately 8-10-Fijian in diameter. The n, I employed the bipolar resection loop to incise the inferior portion of the contracture in order t o gain entry into the bladder. I then decompressed his bladder of the urine there and surveyed it br iefly. The ureteral orifices were orthotopic in location, and there were no mucosal lesions, foreign bodies, or stones immediately noted. I thus turned my attention back to the bladder neck where I th en resected the contracture and the entirety of the bladder neck down to the level of the trigone. I continued the resection bilaterally along the bladder neck and anteriorly to create a very widely pa tent bladder neck. This resection was taken to visible fat, and any additional tissue between the bl adder neck and the verumontanum was similarly resected to create a widely patent prostatic urethral f lucila. Because the resection was taken so widely in an effort to prevent recurrence of the bladder ne ck contracture, there was evidence of periprostatic fat and some bleeding vessels associated with stephen t. This was carefully fulgurated in order to achieve complete hemostasis. I then Dominique evacuated th e prostate chips, which were sent for pathologic analysis. I then carefully fulgurated any additiona l bleeding vessels, observed until there was no ongoing oozing of blood. I then placed a 22-Fijian r igid cystoscope via the urethra into the bladder after removing the resectoscope, and I surveyed the entirety of the bladder neck. No mucosal lesions were noted at the bladder neck anteriorly. I then performed the retrograde pyelography bilaterally. Left retrograde pyelography: Using a 70:30 mixture of Omnipaque and saline, contrast mixture was injected via a cone-tipped urethr al catheter and did propagate up a nondilated ureter without evidence of filling defect before enteri ng a normal renal pelvis and calices without any evidence of filling defect or caliectasis. I then r emoved the cone-tipped catheter and inserted it into the right ureteral orifice and similarly perform ed a right retrograde pyelogram. Right retrograde pyelography: Using a 70:30 mixture of Omnipaque and saline, I similarly injected the mixture via the cone-tipped c atheter into the distal ureter and did observe it propagate quickly in easily into a nondilated right collecting system. No filling defects were noted along the entirety of the course of the ureters or the renal pelves or calices which were short and without evidence of caliectasis. As a result, the cone-tipped catheter was removed, the cystoscope was removed from his bladder, and a 22-Fijian 2-way urethral Marques catheter was placed into his bladder with ease. 30 cc of sterile water was placed int o the balloon, and the patient was then taken out of the lithotomy position before being awakened fro m general anesthesia. He was then transferred to a stretcher and then to the recovery room in good c ondition. The catheter was placed to moderate traction for a period of time in the recovery room. Discharge Disposition: He will be discharged home with a catheter, which he should maintain in C2 fo r the next 3-5 days before voiding trial in clinic. He should be given a dose of antimicrobial proph ylaxis at the time of catheter extraction in the office with either Bactrim or ciprofloxacin. Follow up should then be established with me in approximately 2-3 weeks to discuss the likely benign prostat e pathology and evaluate his voiding symptoms at that time. The initial voiding trial followup may e done with nurse practitioner, Phill, in my office. RUMA/BEVERLY Voice ID: [id number] Report ID: [id number]
== END 2020-04-23 10:12 | disposition home or self-care (01) ==
LOC: OR 06:04
PROVIDERS: ATTEND Urology
PROC: 0TBC8ZZ Excision of Bladder Neck, Via Natural or Artificial Opening Endoscopic (ICD-10-PCS; principal; 2020-04-23 07:30)
PROC: BT14ZZZ Fluoroscopy of Kidneys, Ureters and Bladder (ICD-10-PCS; 2020-04-23 07:30)
DX: N40.0 Benign prostatic hyperplasia without lower urinary tract symptoms (principal); N32.0 Bladder-neck obstruction; Z20.822 Contact with and (suspected) exposure to COVID-19
CPT/HCPCS: 52500; 52005; 87088; 85025; 87086; 80048; 36415; 85610; 82947; 88305; 85730; 51610; 74450; U0002; J2704; J2370; J1580; J2250; J3010; J1170; J7030; J2405; J0290

== ENCOUNTER 2023-06-23 12:15 | Inpatient (IN) | payer BC, OTHER ==
[2023-06-23 13:18] VITALS: BMI 37.4
[2023-06-23] MEDS ORDERED: DOCUSATE NA/SENNA CONC 1 TAB PO PRN (14:51)
[2023-06-23] MEDS: AMIODARONE HCL 200 MG TAB PO SCH (14:56)
[2023-06-23] MEDS ORDERED: D50W 25 GM/50 ML SYRINGE IV PRN (15:24)
[2023-06-23] MEDS ORDERED: GLUCAGON 1 MG/VIAL IM PRN (15:24)
[2023-06-23] MEDS: INSULIN REGULAR (HUMAN) 100 UNIT/ML SQ SCH (16:30)
[2023-06-23] MEDS: METOPROLOL TAR 25 MG TAB PO SCH (17:35)
[2023-06-23] MEDS: FUROSEMIDE 40 MG TABLET PO SCH (17:36)
[2023-06-23 18:04] LABS: Specific Gravity 1.016 (1.005-1.030); Sqamous Epithelial <5 /HPF (None Seen); Urine Bacteria <20 /HPF (<20); Urine Bilirubin NEGATIVE (Negative); Urine Blood Negative (Negative); Urine Clarity Extremely Turbid (Clear); Urine Color Yellow (Yellow); Urine Culture Reflex Order REFLEXED; Urine Glucose NEGATIVE (Negative); Urine Ketones NEGATIVE (Negative); Urine Micro Reflex YN NO BILL MICROSCOPIC; Urine Mucus Slight /HPF (None Seen); Urine Nitrite NEGATIVE (Negative); Urine Protein 1+ (Negative); Urine Urobilinogen 1+ (Normal)
[2023-06-23] MEDS ORDERED: CODEINE 30MG/APAP 300MG TAB PO PRN (18:28)
[2023-06-23] MEDS ORDERED: ONDANSETRON 4 MG (ODT) TAB PO PRN (18:31)
[2023-06-23] MEDS ORDERED: NYSTATIN PWDR 100000 UNIT/GM TOP SCH (20:00)
[2023-06-23] MEDS: BREZTRI AEROSPHERE IH SCH (20:00)
[2023-06-23] MEDS: AZELASTINE NASAL SPRAY 30 ML NAS SCH (20:37)
[2023-06-23] MEDS: APIXABAN 2.5 MG TABLET PO SCH (20:37)
[2023-06-23] MEDS: ATORVASTATIN 40 MG TAB PO SCH (20:37)
[2023-06-23] MEDS: INSULIN GLARGINE 100 UNIT/ML SQ SCH (21:22)
[2023-06-23] MEDS: BENZONATATE 100 MG CAP PO PRN (21:26)
[2023-06-24] MEDS: MELATONIN 3 MG TABLET PO PRN (00:20)
[2023-06-24 04:23] LABS: Absolute Basophils 0.1 K/uL (0-0.5); Absolute Eosinophils 0.4 K/uL (0-0.5); Absolute Lymphocytes (CBC) 0.7 K/uL (0.7-4.9); Absolute Monocytes 1.2 K/uL (0.1-1.3); Absolute Neutrophil 7.2 K/uL (1.8-8.0); Basophils % 0.9 % (0-1.3); Eosinophils % 3.8 % (0-4.4); Hematocrit 29.9 % (39.6-49.0); Hemoglobin 9.7 g/dL (13.6-17.9); Lymphocytes % 7.8 % (15.3-44.8); MCHC 32.4 g/dL (32.0-36.0); MCV 92.6 fL (80-100); MPV 9.4 fL (7.6-11.3); Monocytes % 12.1 % (3.3-12.3); Neutrophils % 75.4 % (41.7-73.7); Platelets 218 thou/uL (152-406); RBC Red Blood Cell Count 3.22 M/uL (4.33-5.43); Red Cell Distribution Width 15.2 % (12.1-15.2)
[2023-06-24 04:41] LABS: Albumin 2.5 g/dL (3.4-5.0); Anion Gap 7.3 mEq/L (5.0-15.0); Magnesium 2.5 mg/dL (1.6-2.4); Phosphorus 2.6 mg/dL (2.5-4.9); Potassium 3.3 mEq/L (3.5-5.1); Prealbumin 11.3 mg/dL (20-40); Uric Acid 7.1 mg/dL (3.5-7.2)
[2023-06-24] MEDS: PANTOPRAZOLE 40MG TABLET PO SCH (05:37)
--- NOTE | 2023-06-24 07:48 | HP ---
Date of Admission: 06/23/2023 Time Of Service: 1:30 p.m. Please note, the patient was discharged to hospital yesterday, 06/22/2023; however, he was briefly taken home and spent less than 24 hours and was admitted earlier today to [facility] for his CHF, myopathy, and to begin rehabilitation. History Of Present Illness: Mr. Gil is a 67-year-old right-handed patient with hyperte nsion, dyslipidemia, diabetes mellitus, diabetic peripheral neuropathy, alcohol use and liver cirrhos is, stage 3 kidney disease, who initially came to hospital on May 30, 2022, with shortness of breath , chest pain, which has been increasing for 2 days prior to admission. He cardiac cathete rization and blood work which showed elevated troponins and was found to have multivessel coronary ar connie disease. He had an echocardiogram, showing ejection fraction of 55% to 60%. Cardiothoracic Sukhwinder ehsan was consulted. He had 3-vessel coronary artery bypass grafting on 06/10 and was placed on aspir in, Plavix, amiodarone following surgery. Nephrology saw the patient for acute renal insufficiency. He was put on metolazone, Lasix drip on 06/12, with improving renal function. He had pleural effusi on, which was stable by interval imaging. He had chest tubes removed on 06/14 and fluid overload was identified at that time. Diuretic and fluid management also instituted. He had elevated blood suga rs and was put on insulin drip and sliding scale for control of his blood sugars. Postoperative cour se complicated by hypotension, systolic over diastolic 80/50 on June 11. He had worsening bilater al lower extremity edema on June 18. Dopplers were negative for deep vein thrombosis. His liver function studies were elevated, and the patient was seen by GI, diagnosed with cholelithiasis with di stended gallbladder. No surgery was done at that point. His chest x-ray on 06/20 showed continued p ulmonary edema, bilateral pleural effusions, and diuresis was done. The patient's harvest site for his bypass grafting was noted to be weeping, did require continued wound care and monitorin g. Oxygen saturation at one point was significantly low, and he required 8 L of oxygen, but that has been weaned down to 2 L. He currently desaturates on room air to around 80% to 85%, but can be main tained at 92% to 94% on 2 L of oxygen. He is beginning to work well with physical and occupational [facility]. He is motivated to do well. He does require supervision for bed mobility, moderate assist f or transfers secondary to weakness and sternal precautions. He did ambulate 150 feet with a rolling walker with moderate assistance. He does have significant deficits of balance with gait deviation. He does require at times 3 L as he ambulates. The patient is noted to be now functioning well below his baseline level of functioning and requires multiple comorbid conditions to be managed aggressivel y when he engages in physical and occupational therapy for recovery. He is, therefore, admitted to [facility] inpatient rehabilitation for physical, occupational, and speech therapy, along with management of his comorbid conditions. Past Medical History: Hypertension, dyslipidemia, diabetes mellitus type 2, diabetic peripheral neur opathy, alcohol use, liver cirrhosis, stage 3 kidney disease. He also has a small pleural effusion, left lower lobe consolidation, and small apical pneumothorax. Surgical History: Appendectomy and 3-vessel coronary artery bypass grafting. Allergies: NO KNOWN DRUG ALLERGIES. Medications: Tylenol 500 mg every 4 hours as needed; Tylenol with codeine one every 4 hours as neede d; amiodarone 200 mg three times daily; Eliquis 2.5 mg twice daily; aspirin 81 mg daily; Lipitor 40 m g at bedtime; Azelastine one spray nasally twice daily; Tessalon Perles 100 mg 3 times daily as neede d; vitamin D 5000 units daily; vitamin B12 100mcg daily, ferrous sulfate 325 mg daily; Lasix 40 mg tw ice daily. He is on insulin sliding scale. Melatonin at 3 mg at night for insomnia, Lopressor 12.5 mg twice daily, Singulair 10 mg daily, Mycostatin apply topically twice daily, Zofran 4 mg every 6 ho urs as needed, oxycodone 5 mg every 4 hours as needed, Protonix 40 mg daily, Senokot-S 2 at bedtime, thiamine 100 mg daily. Family History: Noncontributory. Laboratory Studies: White blood cell count 8.7, hemoglobin 9.8, hematocrit 31.6, platelets 188. Current Level Of Functioning: He is at setup assistance for eating; supervision for oral hygiene; mo derate assistance for toileting, showering, upper body dressing. Maximal assistance for lower body d ressing, donning and doffing footwear. Rolling, [id number]-brju, vqel-ul-jizca, contact guard assistan ce. Changing from a sitting to lying position, moderate assistance; from lying to sitting position, moderate assistance; sit to stand and transferring from bed to chair, moderate assistance. Toilet tr ansfer, moderate assistance. Ambulation, 150 feet with a rolling walker and moderate assistance. Physical Examination: Vital Signs: Blood pressure 129/62, pulse 78, respiratory rate 18, temperature 98.0, oxygen saturati on 93%. Weight 253 pounds. Height 5 feet 9 inches, BMI 37.4. General: Mr. Gil is resting in the chair beside his bed. Is beginning to get ready for therapy . HEENT: He appears normocephalic, atraumatic. Chest: The sternal wound shows good hemostasis, with no obvious leaking. Does have a chest pillow _ chair. Has decreased breath sounds. Abdomen: Soft. Extremities: Show around 1 to 2 pitting edema noted in the foot and then the lower extremities. In terms of strength, he does have sternal precautions, but no focal deficits in upper and lower extremi ties. Light touch temperature, stocking-glove loss. Rehab And Medical Assessment And Plan: Mr. Gil is admitted to the rehabilitation unit with impa irment category 06, neurological condition. His impairment group code is 03.8 neuromuscular disorder s. Etiologic Diagnosis: CHF myopathy. Comorbidities: Renal failure, alcohol abuse, coronary artery disease, chronic kidney disease, decrea sed mobility, decreased physical functioning, diastolic congestive heart failure, diabetes mellitus t ype 2 with diabetic peripheral neuropathy, hyponatremia, hypotension, [id number]-bpddgjs myocardial infar ction, pleural effusion, dyslipidemia, and cirrhosis of liver with elevated liver function studies an d cholelithiasis. Plan: 1.He will have physical, occupational, and may be speech therapy for 3.5 hours, 5 of 7 days. 2.For hypertension and heart rate control, amiodarone 200 mg three times daily and Lopressor 12.5 mg twice daily. 3.For his diabetes mellitus, Semglee insulin 40 units subcutaneously twice daily and insulin sliding scale. Melatonin 3 mg at bedtime for insomnia. Singulair for allergies. We will try to minimize t he need for narcotics, but currently, he does have oxycodone 5 mg every 4 hours as needed for severe pain, Protonix for GE reflux. Continue thiamine for history of alcohol use and to help prevent risk of alcohol withdrawal. He has ferrous sulfate for his anemia along with vitamin B12 and D3. He has Tessalon Perles to minimize risk of coughing and his complications associated. Eliquis 2.5 mg twice daily for DVT prophylaxis. Tylenol for kgxt-ns-sckbjroo pain. Comorbidities That Are Impacting His Rehabilitation: His recent sternotomy and 3-vessel coronary art gina bypass and his sternal precautions will be adhered to, to minimize risk of any complications ther e. Furthermore, he has renal insufficiency and gallstones with cirrhosis of the liver, so indicating multiorgan dysfunction along with some pulmonary issues, so he will be monitored carefully and if ne ed be, assistance from the Pulmonary Service, Renal Service, and Cardiac Service will be consulted. We will have chest x-ray done blood work done to rule out any potential infection or worse awa infection and will have electrolyte followed in addition to having daily weights and monitoring I's and O's. Rehab Specific Plan: Mr. Gil will have physical and occupational therapy and if need be, speech therapy for 3.5 hours, 5 of 7 days, to improve his ability to transfer from bed to chair to toilet a nd to perform showering and toileting. Also, to ambulate 250 feet with modified independence, to go up and down 10 steps with modified independence, propel a wheelchair 250 feet with modified independe nce and again, perform all cognitive functioning independently. Mr. Gil has a good understanding of the process of admission to the inpatient rehabilitation [facility] and how he will benefit from physical, occupational, and if need be, speech therapy. Given his complex medical condition and risk of further complications, rehabilitation cannot be safely or effe ctively performed at a lower level facility such as detention. Barriers To Discharge: sternal precautions may need additional time to recover his streng th from the CHF myopathy, and he will likely require ongoing therapy. If potentially he is doing wel l, it may be done on an outpatient basis. In addition, the risk of infection is significantly presen t and again complications from his recent cardiac transplant with multiorgan failure also has to be c arefully watched for. Length Of Stay: About 12 days. Disposition: Home with family and continue therapy via Home Health. Prognosis: Fair. Rehabilitation Goals: 1.Become independent with upper and lower body dressing, toileting, donning and doffing footwear and showering. 2.Independently ambulate 250 feet with a rolling walker. 3.Independently propel a wheelchair 250 feet. 4.Independently go up and down 10 steps with bilateral handrails. 5.Independently perform cognitive functioning. 6.The above goals were reviewed with Mr. Gil, and he is in agreement. By signing this document, I acknowledge I have personally performed a full physical examination on Mr Mary Gil, no later than 24 hours after his admission to the inpatient rehabilitation facility and d etermined that he is able to tolerate the above course of treatment at an intensive level for a reaso nable period of time. A detailed individualized plan of care for him will be completed by [facility] d ay #4 based on the preadmission screen, History and Physical, and therapy evaluations. TYSON/BEVERLY Voice ID: [id number]
[2023-06-24] MEDS: MONTELUKAST 10 MG TAB PO SCH (08:55)
[2023-06-24] MEDS: CYANOCOBALAMIN 1,000 MCG TAB PO SCH (08:55)
[2023-06-24] MEDS: VITAMIN D 5,000 UNIT CAP PO SCH (08:57)
[2023-06-24] MEDS: FERROUS SULFATE 325 MG TAB PO SCH (08:57)
[2023-06-24] MEDS: ASPIRIN EC 81 MG TAB PO SCH (08:57)
[2023-06-24] MEDS: ACETAMINOPHEN 500 MG TAB PO PRN (09:03)
[2023-06-24] MEDS: THIAMINE HCL 100 MG TABLET PO SCH (09:40)
--- NOTE | 2023-06-24 09:57 | P.CNS ---
Date of Consult: 06/24/23 Reason for Consult: NIYA/ CKD Requesting Physician: Tanner Gilliam Chief Complaint: Weakness/ Edema History of Present Illness: Mr. Gil is a 67-year-old right-handed patient with hypertension, dyslipidemia, diabetes mellitus, diabetic peripheral neuropathy, alcohol use and liver cirrhosis, stage 3 kidney disease, who initially came to hospital on May 30, 2022, with shortness of breath, chest pain, which has been increasing for 2 days prior to admission. He had a cardiac catheterization and blood work which showed elevated troponins and was found to have multivessel coronary artery disease. He had an echocardiogram, showing ejection fraction of 55% to 60%. Cardiothoracic Surgery was consulted. He had 3-vessel coronary artery bypass grafting on 06/10 and was placed on aspirin, Plavix, amiodarone following surgery. Nephrology saw the patient for acute renal insufficiency. He was put on metolazone, Lasix drip on 06/12, with improving renal function. He had pleural effusion, which was stable by interval imaging. He had chest tubes removed on 06/14 and fluid overload was identified at that time. Diuretic and fluid management also instituted. He had elevated blood sugars and was put on insulin drip and sliding scale for control of his blood sugars. Postoperative course complicated by hypotension, systolic over diastolic 80/50 on June 11. He had worsening bilateral lower extremity edema on June 18. Dopplers were negative for deep vein thrombosis. His liver function studies were elevated, and the patient was seen by GI, diagnosed with cholelithiasis with distended gallbladder. No surgery was done at that point. His chest x-ray on 06/20 showed continued pulmonary edema and bilateral pleural effusions. The patient's harvest site for his bypass grafting was noted to be weeping, did require continued wound care and monitoring. Oxygen saturation at one point was significantly low, and he required 8 L of oxygen, but that has been weaned down to 2 L. He cu rrently desaturates on room air to around 80% to 85%, but can be maintained at 92% to 94% on 2 L of oxygen. He is beginning to work well with physical and occupational therapy. Allergies No Known Allergies Allergy (Verified 04/19/20 11:56) Home medications list reviewed: Yes Home Medications: Amlodipine [Norvasc*] 10 mg PO DAILY 07/01/18 Metformin ER [Glucophage ER*] 500 mg PO BIDWM 07/01/18 Spironolactone [Aldactone] 25 mg PO DAILY 07/01/18 Terazosin HCl 2 mg PO BEDTIME 07/01/18 carvediloL [Carvedilol] 25 mg PO BID 07/01/18 hydroCHLOROthiazide [Hydrochlorothiazide] 50 mg PO DAILY 07/01/18 Gabapentin 100 mg PO DAILY 06/23/23 Pravastatin [Pravachol] 40 mg PO BEDTIME 06/23/23 glyBURIDE [Glyburide] 5 mg PO DAILY 06/23/23 - Past Medical/Surgical History Diabetic: Yes -: Hx HCV -: HTN -: DM II with Polyneuropathy -: CKD II with Proteinuria (Dr. Wilcox/ Dr. Winn) -: Diastolic CHF LVEF 50-55% -: Appendectomy - Family History Father Medical History: Hypertension, Diabetes - Social History Alcohol use: No CD- Drugs: Yes Caffeine use: No Place of Residence: Home Review of Systems 10-point ROS is otherwise unremarkable General: Weakness Respiratory: SOB with Excertion Cardiovascular: Edema Physical Examination Temp Pulse Resp BP Pulse Ox 97.8 F 74 18 124/75 95 06/24/23 07:45 06/24/23 09:04 06/24/23 07:45 06/24/23 09:04 06/24/23 07:45 General: In no apparent distress, Oriented x3, Cooperative HEENT: Atraumatic Neck: Supple Respiratory: Clear to auscultation bilaterally Cardiovascular: Regular rate/rhythm, Edema Gastrointestinal: Soft and benign, No guarding Musculoskeletal: No clubbing, No contractures Integumentary: No rashes, No cyanosis Neurological: Normal speech Laboratory Data (last 24 hrs) 06/24/23 06/24/23 03:33 03:33 WBC 9.60 Hgb 9.7 L Hct 29.9 L Plt Count 218 Sodium 138 Potassium 3.3 L BUN 39 H Creatinine 1.44 H Glucose 96 Uric Acid 7.1 Phosphorus 2.6 Magnesium 2.5 H Conclusions/Impression: Stage I NIYA may be CRS CKD II with Proteinuria (Baseline serum creatinine in the office 1.07) -No NSAIDs -Continue diuresis Hypokalemia in the setting of furosemide -Replete as ordered; holding parameters added -Start spironolactone HTN with CKD/ CHF -Continue Metoprolol Diastolic CHF, A/C Peripheral Edema/ Anasarca -Change furosemide to bumex -Restart spironolactone -Low sodium diet DM II with Polyneuropathy and CKD -Continue Lantus -RISS Anemia in chronic illness -Monitor H&H -Check anemia labs Thank you kindly for the consultation
[2023-06-24] MEDS: POTASSIUM 25 MEQ EFFERV TAB PO ONE (10:15)
[2023-06-24] MEDS: FE SULF/FA/VIT B COMP & C TAB PO SCH (12:44)
[2023-06-24] MEDS: BUMETANIDE 1 MG TABLET PO SCH (16:37)
[2023-06-24] MEDS: SPIRONOLACTONE 25 MG TABLET PO SCH (16:37)
[2023-06-24] MEDS ORDERED: POTASSIUM CL SA 10 MEQ TAB PO SCH (20:00)
[2023-06-24] MEDS: POTASSIUM CL SA 10 MEQ TAB PO SCH (21:06)
[2023-06-24] MEDS: GLUCERNA SHAKE 237 ML CAN PO SCH (21:08)
--- NOTE | 2023-06-24 23:12 | PN ---
Date of Progress Note: 06/24/2023 Time Of Service: 1:10 p.m. Subjective: Mr. Gil is sitting in his room by the bed. He has no new complaints. He says swel ling in his lower extremities did go down overnight with SCDs, but as the day progressed, he notes mo re swelling. He denies any new chest pain. He has and his chest pillow is next to him in his chair. Objective: No fevers, chills, nausea, vomiting. Mild swelling is again noted in the feet and mild t ingling in the nerves of the feet and legs. Otherwise, no other positives on systems review. Physical Examination: Vital Signs: Blood pressure 122/60, pulse 80, respiratory rate 16, temperature 97.8, oxygen saturati on 95%. Weight 253 pounds, height 5 feet 9 inches, BMI 37.4. General: Mr. Gil is again sitting in a chair. HEENT: Normocephalic, atraumatic. Sternal wound intact. Extremities: Has 1 to 2 pitting edema in his lower extremities. He has no issues at the harvest sit e of veins on the legs. No other findings in terms of his exam. Laboratory Studies: White blood cell count 9.6, hemoglobin 9.7, platelets 218. Sodium 138, potassiu m 3.3, chloride 103, carbon dioxide 31, BUN 39, creatinine 1.44, glucose ranged from 96 to 176, uric acid 7.1, calcium 7.8, phosphorus 2.3, magnesium 2.5, albumin 2.5, prealbumin 11.3. Urinalysis: Ext sanjana turbidity, 1+ urobilinogen, leukocyte esterase 75, white blood cell count 10 to 20, red blood ce ll count 11 to 20, 1+ protein, otherwise unremarkable. X-ray/imaging: No new x-ray or imaging. Consultations: He is followed by Dr. Wilcox on the renal service and furosemide was switched to Bum ex per Dr. Wilcox and he is on spironolactone. Given low-sodium diet and following regularly. Progress Made With Physical And Occupational Therapy: Today, uty-du-sycwc transfers done with a roll ing walker with supervision. Supervision for toilet hygiene, lower body dressing. For bathing, mini mum assist. Upper body dressing, supervision. Lower body dressing, minimum assistance in the aftern oon. Able to wash body parts. Mr. Gil beginning to make fair progress so far just on his second full day of therapy and he is making again fair overall progress. Assessment: Mr. Gil is a 67-year-old patient admitted to rehabilitation unit with congestive he art failure myopathy, decreased mobility, decrease in physical functioning, diabetes mellitus type 2, diastolic congestive heart failure, diabetic peripheral neuropathy, hyponatremia, xkg-HP-danbcwe darien cardial infarction, dyslipidemia, liver cirrhosis, cholelithiasis. Plan: 1.Continue with physical and occupational therapy for 3 hours a day, 5 of 7 days. 2.Comorbid conditions, which are multiple are addressed by his medications including for diabetes me llitus, hypertension, diuretics for fluid management. He has sodium restricted diet per the renal se rvice and has thiamine for potential alcohol withdrawal along with DVT prophylaxis with Eliquis 2.5 m g twice daily. He does have Tessalon Perles for coughing. Comorbidities That Are Impacting Rehabilitation: The big issue is edema in the lower extremities and status post multivessel bypass. There is mild chest pain and he has sternal precautions. He is connie ntaining those without difficulty and just beginning to ambulate. We will have PAULO hose while he is up and about and sequential compression devices while he is in bed to decrease edema in the lower ext remities. LB/MODL Voice ID: [id number] Report ID: [id number]
[2023-06-25] MEDS: OXYCODONE HCL 5 MG TAB PO PRN (01:10)
[2023-06-25 02:04] LABS: Specific Gravity 1.015 (1.005-1.030); Sqamous Epithelial <5 /HPF (None Seen); Urine Bacteria None Seen /HPF (<20); Urine Bilirubin NEGATIVE (Negative); Urine Blood Negative (Negative); Urine Clarity Turbid (Clear); Urine Color Yellow (Yellow); Urine Culture Reflex Order REFLEXED; Urine Glucose NEGATIVE (Negative); Urine Ketones NEGATIVE (Negative); Urine Micro Reflex YN NO BILL MICROSCOPIC; Urine Nitrite NEGATIVE (Negative); Urine Protein TRACE (Negative); Urine RBC <5 /HPF (None Seen); Urine Urobilinogen 1+ (Normal); Urine WBC Clump Rare /HPF (None Seen)
[2023-06-25 06:54] LABS: Anion Gap 10.4 mEq/L (5.0-15.0); BUN Blood Urea Nitrogen 35 mg/dL (7-18); Bicarbonate 30 mEq/L (21-32); Glomerular Filtration Rate 48 ml/min (=/>90); Glucose Level 144 mg/dL (74-106); NT PRO-BNP 8578 pg/mL (<125); Potassium 3.4 mEq/L (3.5-5.1); Sodium Level 138 mEq/L (136-145); Transferrin 260 mg/dL (200-360)
--- NOTE | 2023-06-25 12:37 | P.PN ---
(S) Pt continues to cite cough and orthopnea, although not needing O2 and ambulatory. Significant peripheral edema persists despite current diuretic regimen. (O) Vitals reviewed in the EMR General: In no apparent distress, HEENT: Atraumatic, sclera anicteric Neck: JVD noted Respiratory: b/l air entry without rales Cardiovascular: Mid line sternotomy healing, non tachy Gastrointestinal: Obese, protuberant, NT Musculoskeletal: Tight 3+ pitting edema b/l, shins non tender Integumentary: No rashes Neurological: Normal speech, awake, alert, no tremors Laboratory Data (last 24 hrs) 06/24/23 06/24/23 03:33 03:33 WBC 9.60 Hgb 9.7 L Hct 29.9 L Plt Count 218 Sodium 138 Potassium 3.3 L BUN 39 H Creatinine 1.44 H Glucose 96 Uric Acid 7.1 Phosphorus 2.6 Magnesium 2.5 H Conclusions/Impression: Recent Stage I NIYA multifactorial, possible underlying CKD II/NOS -Trend renal function closely with escalation of diuretics Hypokalemia -Monitor closely with addition of Metolazone, increased KCL to 20 meq PO BID temp, Spironolactone prev added Ischemic cardiomyopathy Diastolic CHF, A/C Peripheral Edema, significant -Needs additional IV lasix diuresis before switching to PO maintenance diuretics -WIth low albumin state, IV loop diuretics are likely to be more effective -Add PO metolazone at low dose temp to get a head start -Daily weights -With orthopnea and cough, recent CABG, check CXR Anemia post surgical, iron deficient -Monitor H&H -Cont PO iron, switch to IV iron if counts trend lower
--- NOTE | 2023-06-25 13:00 | RAD REPORT ---
EXAM DESCRIPTION: RAD - Chest Single View - 06/25/2023 12:54 pm CLINICAL HISTORY: Dyspnea, cough, CHF Chest pain. COMPARISON: Chest Single View dated 03/06/2023; Chest Pa And Lat (2 Views) dated 09/09/2022; Chest Pa And Lat (2 Views) dated 02/16/2020; Chest Pa And Lat (2 Views) dated 05/23/2019 FINDINGS: Portable technique limits examination quality. Moderate bilateral pulmonary opacities likely representing pulmonary edema. Small bilateral pleural e ffusions. The heart is moderately enlarged. Sternotomy wires present. IMPRESSION: Moderate CHF versus volume overload.
[2023-06-25] MEDS: FUROSEMIDE 40 MG/4 ML VIAL IV SCH (13:27)
--- NOTE | 2023-06-25 13:59 | P.RH.PN ---
Estimated Length of Stay: 9 Expected Discharge Date: 06/29/23 Discharge Disposition Plan: Home Family Support: Yes [employer] Goal: Mobility, Transfers, Self Care Vital Signs: Last Vital Signs Temp 97.7 F 06/25/23 08:00 Pulse 77 06/25/23 13:27 Resp 16 06/25/23 08:00 BP 128/63 06/25/23 13:27 Pulse Ox 95 06/25/23 13:15 Laboratory: Laboratory Last Values WBC 9.60 thou/uL (4.3-10.9) 06/24/23 03:33 RBC 3.22 M/uL (4.33-5.43) L 06/24/23 03:33 Hgb 10.1 g/dL (13.6-17.9) L 06/25/23 04:40 Hct 29.9 % (39.6-49.0) L 06/24/23 03:33 MCV 92.6 fL (80-100) 06/24/23 03:33 MCH 30.0 pg (27.0-35.0) 06/24/23 03:33 MCHC 32.4 g/dL (32.0-36.0) 06/24/23 03:33 RDW 15.2 % (12.1-15.2) 06/24/23 03:33 Plt Count 218 thou/uL (152-406) 06/24/23 03:33 MPV 9.4 fL (7.6-11.3) 06/24/23 03:33 Neutrophils % 75.4 % (41.7-73.7) H 06/24/23 03:33 Lymphocytes % 7.8 % (15.3-44.8) L 06/24/23 03:33 Monocytes % 12.1 % (3.3-12.3) 06/24/23 03:33 Eosinophils % 3.8 % (0-4.4) 06/24/23 03:33 Basophils % 0.9 % (0-1.3) 06/24/23 03:33 Absolute Neutrophils 7.2 K/uL (1.8-8.0) 06/24/23 03:33 Absolute Lymphocytes 0.7 K/uL (0.7-4.9) 06/24/23 03:33 Absolute Monocytes 1.2 K/uL (0.1-1.3) 06/24/23 03:33 Absolute Eosinophils 0.4 K/uL (0-0.5) 06/24/23 03:33 Absolute Basophils 0.1 K/uL (0-0.5) 06/24/23 03:33 Sodium 138 mEq/L (136-145) 06/25/23 04:40 Potassium 3.4 mEq/L (3.5-5.1) L 06/25/23 04:40 Chloride 101 mEq/L (98-107) 06/25/23 04:40 Carbon Dioxide 30 mEq/L (21-32) 06/25/23 04:40 Anion Gap 10.4 mEq/L (5.0-15.0) 06/25/23 04:40 BUN 35 mg/dL (7-18) H 06/25/23 04:40 Creatinine 1.56 mg/dL (0.70-1.30) H 06/25/23 04:40 Est GFR (CKD-EPI) 48 ml/min (=/>90) L 06/25/23 04:40 Glucose 144 mg/dL (74-106) H 06/25/23 04:40 POC Glucose 159 mg/dL (65-120) H 06/25/23 11:36 Uric Acid 7.0 mg/dL (3.5-7.2) 06/25/23 04:40 Calcium 8.1 mg/dL (8.5-10.1) L 06/25/23 04:40 Phosphorus 2.6 mg/dL (2.5-4.9) 06/24/23 03:33 Magnesium 2.5 mg/dL (1.6-2.4) H 06/24/23 03:33 Iron 31.0 ug/dL (65-175) L 06/25/23 04:40 TIBC 364 ug/dL (250-460) 06/25/23 04:40 Transferrin 260 mg/dL (200-360) 06/25/23 04:40 Transferrin % Sat 8.5 % (20.0-50.0) L 06/25/23 04:40 NT-Pro-B Natriuret Pep 8578 pg/mL (<125) H 06/25/23 04:40 Albumin 2.5 g/dL (3.4-5.0) L 06/24/23 03:33 Prealbumin 11.3 mg/dL (20-40) L 06/24/23 03:33 Vitamin B12 > 2000 pg/mL (193-986) H 06/25/23 04:40 Urine Color Yellow (Yellow) 06/25/23 00:10 Urine Clarity Turbid (Clear) H 06/25/23 00:10 Urine pH 5.0 (5.0-7.0) 06/25/23 00:10 Ur Specific [place] 1.015 (1.005-1.030) 06/25/23 00:10 Glucose (UA)(Auto) Negative (Negative) 06/25/23 00:10 Urine Ketones Negative (Negative) 06/25/23 00:10 Urine Blood Negative (Negative) 06/25/23 00:10 Urine Nitrite Negative (Negative) 06/25/23 00:10 Urine Bilirubin Negative (Negative) 06/25/23 00:10 Urine Urobilinogen 1+ (Normal) H 06/25/23 00:10 Ur Leukocyte Esterase 75 Dianna/uL (Negative) H 06/25/23 00:10 Urine RBC <5 /HPF (None Seen) 06/25/23 00:10 Urine WBC 10-20 /HPF (<5) H 06/25/23 00:10 Urine WBC Clumps Rare /HPF (None Seen) 06/25/23 00:10 Ur Squamous Epith Cells <5 /HPF (None Seen) 06/25/23 00:10 U Non-Squamous Epi Cells <5 /HPF (None Seen) 06/23/23 15:25 Urine Bacteria None seen /HPF (<20) 06/25/23 00:10 Hyaline Casts 0-5 /LPF (None Seen) 06/25/23 00:10 Urine Mucus Slight /HPF (None Seen) 06/23/23 15:25 Urine Culture Reflexed Reflexed 06/25/23 00:10 Urine Total Protein Trace (Negative) H 06/25/23 00:10 Weight: 253 lb 1.6 oz Wound Present: No Physician Update: Diuretics increased to 40 mg IV twice daily. 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 CGA 325' x 2, 10 steps with min assistance. Wheelchair mobilization is 250'. Impulsive and will be encouraged to slow down. Summary: Patient's care plan and nursing home goals have been reviewed and revised as necessary. Please see the Rehabilitation Signature page for all necessary signatures.
[2023-06-25 14:57] LABS: MA/CREAT RATIO 59.8 (< 30.0); UR MICROALBUMIN 6.4 mg/dL (< 1.9)
[2023-06-25] MEDS: METOLAZONE 2.5 MG TABLET PO SCH (14:57)
[2023-06-25] MEDS: POTASSIUM CL SA 10 MEQ TAB PO SCH (19:37)
[2023-06-25] MEDS: MELATONIN 3 MG TABLET PO PRN (19:39)
[2023-06-26] MEDS ORDERED: TRAZODONE 50 MG TABLET PO PRN (05:43)
[2023-06-26 09:10] LABS: Anion Gap 8.7 mEq/L (5.0-15.0); Potassium 3.7 mEq/L (3.5-5.1)
[2023-06-26] MEDS: guaiFENesin 100 MG/5 ML UCUP PO PRN (14:23)
--- NOTE | 2023-06-26 14:45 | PN ---
Date of Progress Note: 06/26/2023 Subjective: The patient was seen and examined at bedside. He states that his lower extremity edema is improving. He is unable to sleep. He denies any worsening shortness of breath. Physical Examination: Vital Signs: Reviewed and blood pressures are in the 130s to 120s. General: He appears in no acute distress. Neck: No JVD was noted. Lungs: Auscultation of the lungs revealed diminished breath sounds at bases. Heart: Auscultation OF the heart revealed regular rate and rhythm. Abdomen: Soft and nontender. CABG scar was noted. Extremities: Showed 3+ bilateral lower extremity edema with no signs of cellulitis. Laboratory Data: Showing creatinine worsening to 1.9 and BUN of 34. Other electrolytes are stable. CBC showing hemoglobin of 10.1. Current Medications: Include amiodarone 200 mg 3 times a day, Eliquis b.i.d., aspirin, atorvastatin, furosemide 40 mg IV b.i.d., metolazone 2.5 mg daily, Mounjaro insulin, spironolactone 25 mg b.i.d., thiamine, and trazodone. Impression: 1.Acute on chronic renal insufficiency secondary to cardiorenal syndrome. The patient with signific ant volume overload at this time. He needs continued diuresis. Hence, I will continue with the Lasi x, spironolactone, and metolazone and even though his renal function is worse, because of the need fo r continued diuresis, I will continue the current regimen and monitor his renal function. ProBNP is noted to be trending about the same. We will need to continue to monitor trend. 2.Coronary artery disease, currently stable. The patient is recuperating in the rehab unit. 3.Congestive heart failure, currently stable. Continue ongoing diuresis. Plan: Overall the patient's renal function is slightly worse secondary to underlying cardiorenal syn drome. However, because of volume overload, I will continue with the current diuretic regimen and mo nitor him. VV/MODL Voice ID: [id number] Report ID: [id number]
[2023-06-26] MEDS: TRAZODONE 50 MG TABLET PO PRN (21:07)
--- NOTE | 2023-06-27 07:20 | RAD REPORT ---
EXAM DESCRIPTION: US - Extrem Venous W Compress Antonio - 06/26/2023 10:48 pm CLINICAL HISTORY: r/o dvt COMPARISON: No comparisons TECHNIQUE: Real-time sonographic evaluation of the lower extremity deep venous systems was performed using color Doppler, grayscale, and compression. FINDINGS: Bilateral lower extremities. Normal compressibility, flow augmentation, phasic flow and spontaneous flow is identified in both the left and right lower extremity deep venous systems. No intraluminal filling defects seen. IMPRESSION: No DVT in either lower extremity.
--- NOTE | 2023-06-27 07:56 | RAD REPORT ---
EXAM DESCRIPTION: RAD - Chest Single View - 06/27/2023 7:50 am CLINICAL HISTORY: to compare w/previous test COMPARISON: Chest Single View dated 06/25/2023; Chest Single View dated 03/06/2023; Chest Pa And Lat ( 2 Views) dated 09/09/2022; Chest Pa And Lat (2 Views) dated 02/16/2020 FINDINGS: Lines: None. Lungs: Similar diffuse prominence of the pulmonary interstitium. Pleural: Small bilateral effusions. Cardiac: Cardiomegaly. Mediastinum: Within normal limits. Bones: No acute fractures. Sternotomy. Other: None IMPRESSION: Interstitial pulmonary edema with small pleural effusions that is significant interval c erica compared 06/25/2023.
[2023-06-27] MEDS: TIRZEPATIDE SQ SCH (08:00)
[2023-06-27] MEDS: [UNRECOGNIZED DRUG - OTHER] SQ SCH (08:00)
--- NOTE | 2023-06-27 19:27 | PN ---
Date of Progress Note: 06/27/2023 Subjective: Patient was seen and examined at bedside. His swelling continues to improve. Physical Examination: Vital Signs: Have been reviewed and are stable. General: He appears in no acute distress. Lungs: Clear to auscultation. Diminished breath sounds at bases. Abdomen: Soft and nontender. Extremities: With anasarca which is slowly clinically improving. Current Medications: Have been reviewed. He remains on Lasix 40 mg IV b.i.d., metolazone 2.5 mg a d ay, and spironolactone. No new labs obtained. Chest x-ray findings have been reviewed. Impression: Acute on chronic renal insufficiency with underlying cardiorenal syndrome. The patient will need ongoing diuresis to improve his volume status. His chest x-ray is also consistent with vol ume overload. Hence, we will continue with all the diuretics the same. No new labs obtained from th is morning. We will go ahead and request labs for tomorrow and will continue with the diuresis as cl inically he seems to be responding well. Continue all other medications and plan of care. VV/MODL Voice ID: [id number] Report ID: [id number]
[2023-06-28 05:37] LABS: Albumin 2.8 g/dL (3.4-5.0); Albumin/Globulin Ratio 0.7 (1.1-1.8); Anion Gap 8.7 mEq/L (5.0-15.0); Bilirubin Total 0.6 mg/dL (0.2-1.0); Globulin 3.9 g/dL (2.3-3.5); Potassium 3.7 mEq/L (3.5-5.1); Protein, Total 6.7 g/dL (6.4-8.2)
[2023-06-28] MEDS: POTASSIUM CL SA 10 MEQ TAB PO ONE (12:20)
[2023-06-28] MEDS: FUROSEMIDE 40 MG/4 ML VIAL IV ONE (12:20)
[2023-06-28] MEDS: BUMETANIDE 1 MG TABLET PO SCH (16:22)
--- NOTE | 2023-06-28 20:48 | P.PN ---
Date of Service: 06/28/23 Vital Signs Temp Pulse Resp BP Pulse Ox 97.6 F 85 18 125/59 L 93 06/28/23 08:00 06/28/23 17:11 06/28/23 08:00 06/28/23 17:11 06/28/23 08:00 Medications Acetaminophen (Acetaminophen 500 Mg Tab) 500 mg PO Q4H PRN PRN Reason: Pain scale 2-4 (Mild) Last Admin: 06/28/23 05:45 Dose: 500 mg Amiodarone HCl (Amiodarone Hcl 200 Mg Tab) 200 mg PO TID [facility] Last Admin: 06/28/23 14:04 Dose: 200 mg Apixaban (Apixaban 2.5 Mg Tablet) 2.5 mg PO BID [facility] Last Admin: 06/28/23 07:07 Dose: 2.5 mg Aspirin (Aspirin Ec 81 Mg Tab) 81 mg PO DAILY [facility] Last Admin: 06/28/23 07:06 Dose: 81 mg Atorvastatin Calcium (Atorvastatin 40 Mg Tab) 40 mg PO BEDTIME [facility] Last Admin: 06/27/23 20:28 Dose: 40 mg Azelastine HCl (Azelastine Nasal [place] 30 Ml) 1 sprays MARCOS BID [facility] Last Admin: 06/28/23 07:02 Dose: 1 sprays Benzonatate (Benzonatate 100 Mg Cap) 100 mg PO TID PRN PRN Reason: COUGH Last Admin: 06/26/23 07:17 Dose: 100 mg Bumetanide (Bumetanide 1 Mg Tablet) 2 mg PO [id number] [facility] Last Admin: 06/28/23 16:22 Dose: 2 mg Cholecalciferol (Vitamin D 5,000 Unit Cap) 5,000 unit PO DAILY [facility] Last Admin: 06/28/23 07:06 Dose: 5,000 unit Cyanocobalamin (Cyanocobalamin 1,000 Mcg Tab) 500 mcg PO DAILY [facility] Last Admin: 06/28/23 07:07 Dose: 500 mcg Enteral Nutritional Formula (Glucerna Shake 237 Ml Can) 237 ml PO BID [facility] Last Admin: 06/28/23 07:02 Dose: 237 ml Ferrous Sulfate (Ferrous Sulfate 325 Mg Tab) 325 mg PO DAILY [facility] Last Admin: 06/28/23 07:06 Dose: 325 mg Glucagon (Glucagon 1 Mg/Vial) 1 mg IM 1X PRN; Protocol PRN Reason: HYPOGLYCEMIA Guaifenesin (Guaifenesin 100 Mg/5 Ml Ucup) 200 mg PO QID PRN PRN Reason: COUGH Last Admin: 06/28/23 05:41 Dose: 200 mg Home Med (Breztri Aerosphere Inh) 2 puff IH BID [facility] Last Admin: 06/28/23 08:00 Dose: Not Given Home Med (Mounjaro Pen (Tirzepatide) 2ml) 12.5 mg SQ Q7D [facility] Last Admin: 06/27/23 08:00 Dose: Not Given Insulin Glargine (Insulin Glargine 100 Unit/Ml) 40 unit SQ BID [facility] Last Admin: 06/28/23 08:14 Dose: 40 unit Insulin Human Regular (Insulin Regular (Human) 100 Unit/Ml) 0 unit SQ ACHS [facility]; Protocol Last Admin: 06/28/23 16:30 Dose: Not Given Melatonin (Melatonin 3 Mg Tablet) 6 mg PO BEDTIME PRN PRN PRN Reason: INSOMNIA Last Admin: 06/27/23 20:37 Dose: 6 mg Metoprolol Tartrate (Metoprolol Tar 25 Mg Tab) 12.5 mg PO BID 6AM 6PM [facility] Last Admin: 06/28/23 17:11 Dose: 12.5 mg Montelukast Sodium (Montelukast 10 Mg Tab) 10 mg PO DAILY [facility] Last Admin: 06/28/23 07:05 Dose: 10 mg Multivitamins/Iron (Fe Sulf/Fa/Vit B Comp & C Tab) 1 tab PO DAILY WITH BREAKFAST [facility] Last Admin: 06/28/23 07:05 Dose: 1 tab Oxycodone HCl (Oxycodone Hcl 5 Mg Tab) 5 mg PO Q4H PRN PRN Reason: Pain scale 5-7 (Moderate) Last Admin: 06/28/23 00:54 Dose: 5 mg Pantoprazole Sodium (Pantoprazole 40mg Tablet) 40 mg PO DAILYAC [facility]; Protocol Last Admin: 06/28/23 05:40 Dose: 40 mg Potassium Chloride (Potassium Cl Sa 10 Meq Tab) 20 meq PO BID [facility] Last Admin: 06/28/23 07:08 Dose: 20 meq Senna/Docusate Sodium (Docusate Na/Senna Conc 1 Tab) 2 tab PO BEDTIME PRN PRN Reason: CONSTIPATION Spironolactone (Spironolactone 25 Mg Tablet) 25 mg PO [id number] [facility] Last Admin: 06/28/23 16:23 Dose: 25 mg Thiamine HCl (Thiamine Hcl 100 Mg Tablet) 100 mg PO DAILY [facility] Last Admin: 06/28/23 07:02 Dose: 100 mg Trazodone HCl (Trazodone 50 Mg Tablet) 25 mg PO BEDTIME PRN PRN PRN Reason: INSOMNIA Last Admin: 06/27/23 20:31 Dose: 25 mg Lab Results (last 24 hrs) 06/28/23 19:41: POC Glucose 214 H 06/28/23 16:05: POC Glucose 137 H 06/28/23 11:16: POC Glucose 188 H 06/28/23 07:59: POC Glucose 279 H 06/28/23 05:06: Sodium 134 L, Potassium 3.7, Chloride 100, Carbon Dioxide 29, Anion Gap 8.7, BUN 36 H, Creatinine 1.52 H, Est GFR (CKD-EPI) 50 L, Glucose 189 H, Calcium 8.1 L, Total Bilirubin 0.6, AST 27, ALT 21, Alkaline Phosphatase 143 H, Serum Total Protein 6.7, Albumin 2.8 L, Globulin 3.9 H, Albumin/Globulin Ratio 0.7 L Microbiology Results 06/23/23 15:25 Clean Catch Urine [place] Count - Final <10,000 CFU/ML. 06/23/23 15:25 Clean Catch Urine - Final MIXED [place]. Assessment/ Plan: Nephrology No dyspnea No chest pain Improving edema No acute events overnight Vitals, medications, blood work and imaging reviewed in the chart General: In no apparent distress, Oriented x3, Cooperative HEENT: Atraumatic Neck: Supple Respiratory: Clear to auscultation bilaterally Cardiovascular: Regular rate/rhythm, Edema Gastrointestinal: Soft and benign, No guarding Musculoskeletal: No clubbing, No contractures Integumentary: No rashes, No cyanosis Neurological: Normal speech Laboratory Data (last 24 hrs) 06/24/23 06/24/23 03:33 03:33 WBC 9.60 Hgb 9.7 L Hct 29.9 L Plt Count 218 Sodium 138 Potassium 3.3 L BUN 39 H Creatinine 1.44 H Glucose 96 Uric Acid 7.1 Phosphorus 2.6 Magnesium 2.5 H Conclusions/Impression: Stage I NIYA may be CRS CKD II with Proteinuria (Baseline serum creatinine in the office 1.07) -No NSAIDs -Continue diuresis Hypokalemia in the setting of furosemide -Continue potassium supplementation -Continue spironolactone HTN with CKD/ CHF -Continue Metoprolol Diastolic CHF, A/C Peripheral Edema/ Anasarca -Change furosemide to bumex -Continue spironolactone -Low sodium diet DM II with Polyneuropathy and CKD -Continue Lantus -RISS Anemia in chronic illness Iron Deficiency -Monitor H&H -Continue oral iron supplementation
--- NOTE | 2023-06-28 21:29 | PN ---
Date of Progress Note: 06/28/2023 Time Of Service: 1:35 p.m. Subjective: Mr. Gil is in his room. He is feeling somewhat better about his exercises. Swelli ng in the legs slightly down, but still present. Does have mild chest pain at his median sternotomy site, but that is manageable. He is excited about going home in the morning, will continue therapy v ia outpatient cardiac rehab. Objective: Mild swelling in the legs. Mild pain, but improving in legs. Otherwise, no fevers, chil ls. Mild myalgias and arthralgias. No rash. No headache. No psychiatric complaints. Physical Examination: Vital Signs: Blood pressure 125/59, pulse 85, respiratory rate 16, temperature 97.6, oxygen saturati on 93%. General: Mr. Gil is resting comfortably. Median sternotomy is healing well. Abdomen: Soft. Extremities: He has mild 1 to 2 pitting edema in the lower extremities. No other findings on examin ation. Laboratory Studies: Two days ago, hemoglobin improved from 9.7 to 10.1, otherwise unremarkable. Tod ay, blood sugars ranged 137 to 214. Sodium 134, potassium 3.7, chloride 100, carbon dioxide 28, BUN 36, creatinine 1.52, calcium 8.1, AST 27, ALT 21, alkaline phosphate 143, total bilirubin 0.6. Urina lysis and cultures unremarkable. Chest x-ray done yesterday showed interstitial pulmonary edema with small pleural effusion and significant interval change, which actually in the body of the report jannette ws similar diffusion prominence with perhaps no significant change noted. Medications: He is receiving Lasix 40 mg IV twice daily managed by the Renal Service. Other medicat ions remain unchanged. It is noted that for home, he is going to receive Bumex 2 mg twice daily in a ddition to Aldactone 25 mg twice daily, Lopressor, and amiodarone 200 mg 3 times daily for fluid and blood pressure management. Progress Made With Physical And Occupational Therapy: Today with physical therapy, he was able to am bulate 350 feet independently and another 350 feet independently without an assistive device and go u p and down 25 steps with bilateral handrails independently. With occupational therapy, independent f or [id number] and ambulation to room to toilet independently without assistive device. Did shower with no assistive device. No loss of balance. Mr. Gil made excellent progress with physical and occupational therapy and is ready to be discha rged home. Does have ongoing medical issues which are managed by the Renal Service and will continue so after discharge. Has median sternotomy and will follow up with Cardiothoracic Surgery and follow up with primary care physician as well. Assessment: Mr. Gil is a 67-year-old patient in the rehabilitation unit with CHF myopathy. He has multivessel coronary artery bypass grafting. His graft donor site in the left lower extremity rodriguez s good hemostasis. He has diabetes mellitus type 2, diastolic congestive heart failure with peripher al edema, diabetic peripheral neuropathy, hyponatremia, [id number] myocardial infarction, dyslipi demia, cirrhosis, and cholelithiasis. Plan: 1.Continue with physical and occupational therapy 3 hours a day, 5 of 7 days. 2.His comorbid conditions including managing his fluids by Renal Service. 3.He will continue with DVT prophylaxis while hospitalized. He has Tessalon for cough and multiple medications for diuresis. He will be discharged in the morning and have cardiac therapy continuing a nd follow up as stated. Comorbidities That Are Impacting Rehabilitation: He does have improving edema in the lower extremiti es noted and has high-dose IV Lasix and now switched to oral for his discharge. He will have PAULO hose as appropriate and Shakeel bandage of the lower extremities depending on how he responds with the TE D hose. TYSON/BEVERLY Voice ID: [id number] Report ID: [id number]
[2023-06-29 04:39] LABS: Absolute Basophils 0.1 K/uL (0-0.5); Absolute Eosinophils 0.2 K/uL (0-0.5); Absolute Lymphocytes (CBC) 0.5 K/uL (0.7-4.9); Absolute Monocytes 0.9 K/uL (0.1-1.3); Absolute Neutrophil 4.7 K/uL (1.8-8.0); Basophils % 0.9 % (0-1.3); Eosinophils % 3.2 % (0-4.4); Hematocrit 28.5 % (39.6-49.0); Hemoglobin 9.6 g/dL (13.6-17.9); Lymphocytes % 8.1 % (15.3-44.8); MCH 30.7 pg (27.0-35.0); MCHC 33.6 g/dL (32.0-36.0); MCV 91.3 fL (80-100); MPV 9.1 fL (7.6-11.3); Monocytes % 13.9 % (3.3-12.3); Neutrophils % 73.9 % (41.7-73.7); Nucleated Red Blood Cells % 0.1 % (0-0); Platelets 207 thou/uL (152-406); RBC Red Blood Cell Count 3.13 M/uL (4.33-5.43); Red Cell Distribution Width 15.8 % (12.1-15.2)
[2023-06-29 04:55] LABS: Albumin 2.6 g/dL (3.4-5.0); Anion Gap 5.6 mEq/L (5.0-15.0); Magnesium 2.2 mg/dL (1.6-2.4); Potassium 3.6 mEq/L (3.5-5.1); Prealbumin 12.4 mg/dL (20-40)
[2023-06-29 08:13] VITALS: BP 124/77; TEMP 98
== END 2023-06-29 10:40 | disposition home or self-care (01) | DRG 91 ==
LOC: 5TH 12:15
PROVIDERS: ADMIT Psychiatry & Neurology Neurology with Special Qualifications in Child Neurology; ATTEND Psychiatry & Neurology Neurology with Special Qualifications in Child Neurology
DX: G72.89 Other specified myopathies (principal); I50.33 Acute on chronic diastolic (congestive) heart failure; E87.1 Hypo-osmolality and hyponatremia; I13.0 Hypertensive heart and chronic kidney disease with heart failure and stage 1 through stage 4 chronic kidney disease, or unspecified chronic kidney disease; N17.9 Acute kidney failure, unspecified; E11.22 Type 2 diabetes mellitus with diabetic chronic kidney disease; N18.30 Chronic kidney disease, stage 3 unspecified; E78.5 Hyperlipidemia, unspecified; I25.10 Atherosclerotic heart disease of native coronary artery without angina pectoris; E11.42 Type 2 diabetes mellitus with diabetic polyneuropathy; I95.9 Hypotension, unspecified; E87.6 Hypokalemia; D63.8 Anemia in other chronic diseases classified elsewhere; K74.60 Unspecified cirrhosis of liver; I25.5 Ischemic cardiomyopathy; F10.90 Alcohol use, unspecified, uncomplicated; Z95.1 Presence of aortocoronary bypass graft; I25.2 Old myocardial infarction
CPT/HCPCS: 36415; 71045; 80048; 80053; 81001; 82040; 82043; 82570; 82607; 82947; 83540; 83735; 83880; 84100; 84134; 84466; 84550; 85018; 85025; 87086; 87088; 93970; 94010; 97110; 97112; 97116; 97163; 97165; 97530; J1815; J1940

== ENCOUNTER 2024-02-28 06:09 | Emergency (ER) | payer BC, OTHER ==
[2024-02-28 06:36] LABS: Absolute Eosinophils 0.1 K/uL (0-0.5); Absolute Lymphocytes (CBC) 0.4 K/uL (0.7-4.9); Absolute Monocytes 0.5 K/uL (0.1-1.3); Absolute Neutrophil 7.4 K/uL (1.8-8.0); Basophils % 0.4 % (0-1.3); Hematocrit 38.8 % (39.6-49.0); Hemoglobin 12.6 g/dL (13.6-17.9); Lymphocytes % 4.7 % (15.3-44.8); MCH 33.3 pg (27.0-35.0); MCHC 32.4 g/dL (32.0-36.0); MCV 102.8 fL (80-100); MPV 9.6 fL (7.6-11.3); Monocytes % 5.6 % (3.3-12.3); Neutrophils % 88.3 % (41.7-73.7); Platelets 105 thou/uL (152-406); RBC Red Blood Cell Count 3.78 M/uL (4.33-5.43); Red Cell Distribution Width 14.1 % (12.1-15.2)
[2024-02-28 06:43] LABS: PT Prothrombin Time 12.2 SECONDS (9.4-12.5); Protime INR 1.09
[2024-02-28 06:56] LABS: Albumin 3.1 g/dL (3.4-5.0); Albumin/Globulin Ratio 0.9 (1.1-1.8); Anion Gap 13.8 mEq/L (5.0-15.0); Bilirubin Direct 0.3 mg/dL (0-0.2); Bilirubin Indirect, Calculated 0.5 mg/dL (0.2-0.8); Bilirubin Total 0.8 mg/dL (0.2-1.0); Globulin 3.4 g/dL (2.3-3.5); Magnesium 2.5 mg/dL (1.6-2.4); Potassium 4.8 mEq/L (3.5-5.1); Protein, Total 6.5 g/dL (6.4-8.2); Troponin High Sensitivity 9.6 pg/mL (<58.9)
[2024-02-28 07:15] LABS: SARS-CoV-2 Antigen CONTROL BLUE LINE VIS/BG OK; SARS-CoV-2 Antigen Rapid Res Negative (Negative)
--- NOTE | 2024-02-28 07:34 | RAD REPORT ---
Procedure: Chest Single View HISTORY: Cough COMPARISON: May 2023 FINDINGS: The lungs appear clear of acute infiltrate. No significant pleural effusion noted. The heart has decreased in size and is mildly enlarged. Post surgical changes involve the chest IMPRESSION: No acute abnormality is displayed.
[2024-02-28 08:58] LABS: Blood Morphology Comment NOT SEEN (NOT SEEN); Platelet Estimate DECR; White Blood Cell Scan OK (OK)
--- NOTE | 2024-02-28 08:59 | EDPHYS ---
Physician Documentation [facility] Name: Devonte Gil Age: 68 yrs Sex: Male : 1955 Arrival Date: 02/28/2024 Time: 06:09 Bed 6 Private MD: ED Physician Real Price HPI: 02/27 06:21 This 68 yrs old Male presents to ER via EMS with complaints of Generalized sp3 weakness. 06:21 68-year-old male with history of diabetes noncompliant on insulin, hypertension, CAD sp3 status post CABG presents to the ED with chief complaint generalized weakness and lower extremity weakness with malaise and fatigue. He denies any focal neurological deficit, chest pain or shortness of breath. He also denies headache, fever, URI symptoms, cough, known sick contacts, travel history, prolonged immobilization, shortness of breath, chest pain, abdominal pain, syncope, near syncope, rash, bleeding or any other signs or symptoms on ROS at this time.. Historical: - Allergies: 06:21 No Known Allergies; dd2 - Home Meds: 06:21 Plavix 75 mg Oral tablet 1 tab daily [Active]; dd2 - PMHx: 06:21 Diabetes - NIDDM; High Cholesterol (Hypertension); Hypertension; dd2 - PSHx: 06:21 Coronary artery bypass graft; dd2 - Immunization history:: Adult Immunizations up to date. - Infectious Disease History:: Denies. - Social history:: Smoking status: Patient denies any tobacco usage or history of. ROS: 06:23 Constitutional: Negative for fever, chills, and weight loss, Eyes: Negative for injury, sp3 pain, redness, and discharge, Neck: Negative for injury, pain, and swelling, Cardiovascular: Negative for chest pain, palpitations, and edema, Respiratory: Negative for shortness of breath, cough, wheezing, and pleuritic chest pain, Abdomen/GI: Negative for abdominal pain, nausea, vomiting, diarrhea, and constipation, Back: Negative for injury and pain, MS/Extremity: Negative for injury and deformity, Skin: Negative for injury, rash, and discoloration, Allergy/Immunology: Negative for hives, rash, and allergies, Hematologic/Lymphatic: Negative for swollen nodes, abnormal bleeding, and unusual bruising, 06:23 All other systems are negative, Exam: 06:24 Constitutional: This is a well developed, well nourished patient who is awake, alert, sp3 and in no acute distress. Head/Face: Normocephalic, atraumatic. Eyes: Pupils equal round and reactive to light, extra-ocular motions intact. Lids and lashes normal. Conjunctiva and sclera are non-icteric and not injected. Cornea within normal limits. Periorbital areas with no swelling, redness, or edema. ENT: Nares patent. No nasal discharge, no septal abnormalities noted. External auditory canals are clear. Oropharynx with no redness, swelling, or masses, exudates, or evidence of obstruction, uvula midline. Mucous membranes moist. Neck: Trachea midline, no thyromegaly or masses palpated, and no cervical lymphadenopathy. Supple, full range of motion without nuchal rigidity, or vertebral point tenderness. No Meningismus. Chest/axilla: Normal chest wall appearance and motion. Nontender with no deformity. No lesions are appreciated. Cardiovascular: Regular rate and rhythm with a normal S1 and S2. No gallops, murmurs, or rubs. Normal PMI, no JVD. No pulse deficits. Respiratory: Lungs have equal breath sounds bilaterally, clear to auscultation and percussion. No rales, rhonchi or wheezes noted. No increased work of breathing, no retractions or nasal flaring. Abdomen/GI: Soft, non-tender, with normal bowel sounds. No distension or tympany. No guarding or rebound. No evidence of tenderness throughout. Back: No spinal tenderness. No costovertebral tenderness. Full range of motion. Skin: Warm, dry with normal turgor. Normal color with no rashes, no lesions, and no evidence of cellulitis. MS/ Extremity: Pulses equal, no cyanosis. Neurovascular intact. Full, normal range of motion. Neuro: Awake and alert, GCS 15, oriented to person, place, time, and situation. Cranial nerves II-XII grossly intact. Motor strength 5/5 in all extremities. Sensory grossly intact. Cerebellar exam normal. Normal gait. Psych: Awake, alert, with orientation to person, place and time. Behavior, mood, and affect are within normal limits. 06:36 ECG was reviewed by the Attending Physician. EKG demonstrates normal sinus rhythm at 60 sp3 bpm with right bundle branch block and nonspecific diffuse ST's ST changes without evidence of acute ischemia. Vital Signs: 06:17 BP 125 / 64; Pulse 65; Resp 16; Temp 98.3; Pulse Ox 100% ; Weight 88.45 kg; Height 5 dd2 ft. 9 in. ; 08:00 BP 136 / 70; Pulse 68; Resp 16; Pulse Ox 99% on R/A; hb 06:17 Body Mass Index 28.80 (88.45 kg, 175.26 cm) dd2 [place] Coma Score: 06:27 Eye Response: spontaneous(4). Motor Response: obeys commands(6). Verbal Response: dd2 oriented(5). Total: 15. MDM: 06:19 Medical Screening Exam initiated sp3 06:24 Data reviewed: vital signs, nurses notes, old medical records, lab test result(s), EKG, sp3 radiologic studies. ED course: 68-year-old male with PMH above now with generalized weakness and fatigue. Patient also states his legs gave out on him and he fell to his knees without any major trauma. Differential diagnosis includes viral syndrome, acute coronary syndrome, electrolyte abnormality, dehydration, among others. I am not highly suspicious for vascular pathology including aortic aneurysm or dissection, PE, sepsis or shock. Vital signs are normal. Initial workup will include chest x-ray, EKG, general labs, swabs and a urine analysis. Consider second troponin if initial workup is negative with potential discharge. Patient will be signed out to daytime physician for reevaluation and final disposition.. 07:00 Transition of care: Care assumed from Kailey Portillo MD. ED course: 68 yo male presenting ms3 for generalized weakness. Cardiac work up (labs, CXR) pending. EKG with RBBB. 08:59 Differential diagnosis: [place] vs Electrolyte abnormality vs hyperglycemia. Independent ms3 interpretation of the following test(s) in the Emergency Department EKG: See my EKG interpretation above. Counseling: I had a detailed discussion with the patient and/or guardian regarding the historical points, exam findings, and any diagnostic results supporting the discharge/admit diagnosis, lab results, radiology results, the need for outpatient follow up, to return to the emergency department if symptoms worsen or persist or if there are any questions or concerns that arise at home. ED course: Patient states he has a history of heart failure, no pulmonary edema seen on chest x-ray. Patient's daughter states patient has stage IV chronic kidney disease, and a history of elevated LFTs. Patient states his symptoms have resolved and he is improved at this time. All questions were answered. Patient to follow-up with his primary care physician in 1 to 2 days. Return precautions discussed include worsening symptoms, or any other concerns.. 02/27 06:20 Order name: Basic Metabolic Panel; Complete Time: 07:41 sp3 02/27 06:20 Order name: CBC with Diff sp3 02/27 06:20 Order name: LFT's; Complete Time: 07:41 sp3 02/27 06:20 Order name: Magnesium; Complete Time: 07:41 sp3 02/27 06:20 Order name: NT PRO-BNP; Complete Time: 07:41 sp3 02/27 06:20 Order name: PT-INR; Complete Time: 07:41 sp3 02/27 06:20 Order name: Troponin HS; Complete Time: 07:41 sp3 02/27 06:20 Order name: Flu; Complete Time: 07:41 sp3 02/27 06:20 Order name: SARS RAPID; Complete Time: 07:41 sp3 02/27 07:46 Order name: Troponin High Sensitivity; Complete Time: 08:35 ms3 02/27 08:58 Order name: CBC Smear Scan EDMS 02/27 06:20 Order name: XRAY Chest (1 view); Complete Time: 07:41 sp3 02/27 06:20 Order name: Cardiac monitoring; Complete Time: 06:30 sp3 02/27 06:20 Order name: EKG - Nurse/Tech; Complete Time: 06:30 sp3 02/27 06:20 Order name: IV Saline Lock; Complete Time: 06:30 sp3 02/27 06:20 Order name: Labs collected and sent; Complete Time: 06:30 sp3 02/27 06:20 Order name: O2 Per Protocol; Complete Time: 06:30 sp3 02/27 06:20 Order name: O2 Sat Monitoring; Complete Time: 06:30 sp3 Administered Medications: No medications were administered Disposition Summary: 02/28/24 08:59 Discharge Ordered Notes: Location: Home ms3 Condition: Stable ms3 Diagnosis - Muscle weakness (generalized) ms3 - Anemia in chronic kidney disease ms3 - Chronic kidney disease, unspecified ms3 - Nonspecific elevation of levels of transaminase and lactic acid dehydrogenase [LDH] ms3 Followup: ms3 - With: Private Physician - When: 1 - 2 days - Reason: Recheck today's complaints Discharge Instructions: - Discharge Summary Sheet ms3 - Anemia ms3 - Weakness, [id number] ms3 Forms: - Family Work Release hb - Medication Reconciliation Form ms3 - Antibiotic Education ms3 - Prescription Opioid Use ms3 - Patient Portal Instructions ms3 - Leadership Thank You Letter ms3 Signatures: Dispatcher [employer] EDMS Real Price DO DO ms3 Kailey Portillo MD MD sp3 ANEL KELLOGG, RN RN dd2 Corrections: (The following items were deleted from the chart) 06:21 06:20 BASIC METABOLIC PANEL+C.LAB.BRZ ordered. EDMS EDMS 06:21 06:20 CBC+H.LAB.BRZ ordered. EDMS EDMS 06:21 06:20 HEPATIC FUNCTION+C.LAB.BRZ ordered. EDMS EDMS 06:21 06:21 MAGNESIUM+C.LAB.BRZ ordered. EDMS EDMS 06:21 06:21 PROBNP+C.LAB.BRZ ordered. EDMS EDMS 06:21 06:21 PROTIME (+INR)+COAG.LAB.BRZ ordered. EDMS EDMS 06:21 06:21 Troponin High Sensitivity+C.LAB.BRZ ordered. EDMS EDMS 06:21 06:21 Urinalysis W/Microscopic+U.LAB.BRZ ordered. EDMS EDMS 06:21 06:21 Influenza Screen (A \T\ B)+BA.LAB.BRZ ordered. EDMS EDMS 06:21 06:21 SARS-COV-2 Antigen Rapid+I.LAB.BRZ ordered. EDMS EDMS 06:21 06:21 Chest Single View+RAD.RAD.BRZ ordered. EDMS EDMS
--- NOTE | 2024-02-28 08:59 | ER ---
Nurse's Notes [facility] Name: Devonte Gil Age: 68 yrs Sex: Male : 1955 Arrival Date: 02/28/2024 Time: 06:09 Bed 6 Private MD: Diagnosis: Muscle weakness (generalized);Anemia in chronic kidney disease;Chronic kidney disease, unspecified;Nonspecific elevation of levels of transaminase and lactic acid dehydrogenase [LDH] Presentation: 02/27 06:17 Chief complaint: EMS states: Pt was at work, stood up from chair and fell. Pt stated dd2 legs felt weak. Denies LOC, denies hitting head. Coronavirus screen: Client denies travel out of the [place] in the last 14 days. At this time, the client does not indicate any symptoms associated with coronavirus-19. Ebola Screen: No symptoms or risks identified at this time. Initial Sepsis Screen: Does the patient meet any 2 criteria? No. Patient's initial sepsis screen is negative. Does the patient have a suspected source of infection? No. Patient's initial sepsis screen is negative. Risk Assessment: Do you want to hurt yourself or someone else? Patient reports no desire to harm self or others. Onset of symptoms was February 28, 2024. 06:17 Method Of Arrival: EMS: [facility] dd2 06:17 Acuity: FABI 3 dd2 06:20 Care prior to arrival: Medication(s) given: Normal saline infusion, 150 CC IV dd2 initiated. 20 GA, in the right antecubital area, Glucose check: 225. Triage Assessment: 06:21 General: Appears in no apparent distress. Behavior is calm, cooperative, appropriate dd2 for age. Pain: Denies pain. EENT: No deficits noted. No signs and/or symptoms were reported regarding the EENT system. Neuro: Level of Consciousness is awake, alert, obeys commands, Oriented to person, place, time, situation, Appropriate for age [place]acker are equal bilaterally Moves all extremities. Gait is UNABLE TO ASSESS. Speech is normal, Facial symmetry appears normal, Pupils are PERRLA, Pupil Size: 3 Intact Reports weakness in right leg and left leg. Cardiovascular: Patient's skin is warm and dry. Respiratory: No deficits noted. Airway is patent Respiratory effort is even, unlabored, Respiratory pattern is regular, symmetrical, Breath sounds are clear bilaterally. GI: Abdomen is non-distended, Bowel sounds present X 4 quads. Abd is soft and non tender X 4 quads. Reports intolerance of food. : No deficits noted. No signs and/or symptoms were reported regarding the genitourinary system. Derm: Skin is healthy with good turgor, Bruising that is dark purple, on GENERALIZED SCATTERED. Musculoskeletal: Circulation, motion, and sensation intact. Range of motion: intact in all extremities, Reports weakness in right leg and left leg. Historical: - Allergies: : No Known Allergies; dd2 - Home Meds: : Plavix 75 mg Oral tablet 1 tab daily [Active]; dd2 - PMHx: : Diabetes - NIDDM; High Cholesterol (Hypertension); Hypertension; dd2 - PSHx: : Coronary artery bypass graft; dd2 - Immunization history:: Adult Immunizations up to date. - Infectious Disease History:: Denies. - Social history:: Smoking status: Patient denies any tobacco usage or history of. Screenin:[address] [facility] ED Fall Risk Assessment (Adult) History of falling in the last 3 months, dd2 including since admission Yes- fall prone (multiple falls) (3 pts) Confusion or Disorientation No (0 pts) Intoxicated or Sedated No (0 pts) Impaired Gait No (0 pts) Mobility Assist Device Used No (0 pt) Altered Elimination No (0 pt) Score/Fall Risk Level 3 or more points = High Risk Oriented to surroundings, Maintained a safe environment, Educated pt \T\ family on fall prevention, incl call for assistance when getting out of bed, Assessed \T\ reinforced patient's understanding of fall precautions, Hourly rounding (assess needs \T\ fall precautionary measures) done. Abuse screen: Denies threats or abuse. Nutritional screening: No deficits noted. Tuberculosis screening: No symptoms or risk factors identified. Assessment: 06:27 Reassessment: SEE TRIAGE ASSESSMENT FOR FULL ASSESSMENT. dd2 07:30 Reassessment: Patient appears in no apparent distress at this time. Patient and/or hb family updated on plan of care and expected duration. Pain level reassessed. Patient is alert, oriented x 3, equal unlabored respirations, skin warm/dry/pink. 08:29 Reassessment: Patient appears in no apparent distress at this time. Patient and/or hb family updated on plan of care and expected duration. Pain level reassessed. Patient is alert, oriented x 3, equal unlabored respirations, skin warm/dry/pink. Vital Signs: 06:17 BP 125 / 64; Pulse 65; Resp 16; Temp 98.3; Pulse Ox 100% ; Weight 88.45 kg; Height 5 dd2 ft. 9 in. ; 08:00 BP 136 / 70; Pulse 68; Resp 16; Pulse Ox 99% on R/A; hb 06:17 Body Mass Index 28.80 (88.45 kg, 175.26 cm) dd2 [place] Coma Score: 06:27 Eye Response: spontaneous(4). Motor Response: obeys commands(6). Verbal Response: dd2 oriented(5). Total: 15. ED Course: 06:15 Patient arrived in ED. dd2 06:17 ANEL KELLOGG, RN is Primary Nurse. dd2 06:19 Kailey Portillo MD is Attending Physician. sp3 06:20 Triage completed. dd2 06:21 Arm band placed on right wrist. Patient placed in an exam room, on a stretcher, on dd2 pulse oximetry. 06:27 Patient has correct armband on for positive identification. Bed in low position. Call dd2 light in reach. Side rails up X2. Client placed on continuous cardiac and pulse oximetry monitoring. NIBP monitoring applied. potline monitor on. Door closed. Noise minimized. Verbal reassurance given. 06:27 No provider procedures requiring assistance completed. Initial lab(s) drawn, by ED dd2 staff, sent to lab. EKG done, by ED staff, reviewed by Kailey Portillo MD COVID swab sent to lab. Flu and/or RSV swab sent to lab. Maintain EMS IV. Dressing intact. Good blood return noted. Site clean \T\ dry. Gauge \T\ site: 20G RAC. Flushed with 10 mL NS IV is patent, is intact, with fluids infusing freely, with good blood return. Patient maintains SpO2 saturation greater than 95% on room air. 06:36 XRAY Chest (1 view) In Process Unspecified. EDMS 07:05 Primary Nurse role handed off by ANEL KELLOGG, RN bp 07:05 Dickson Holloway, RN is Primary Nurse. bp 07:15 Provided Education on: use of call light . hb 07:40 Attending Physician role handed off by Kailey Portillo MD ms3 07:40 Real Price DO is Attending Physician. ms3 Administered Medications: No medications were administered Medication: 06:27 VIS not applicable for this client. dd2 Outcome: 08:59 Discharge ordered by . ms3 09:32 Patient left the ED. iw Signatures: Dispatcher [employer] EDMS Beatriz Sanchez RN RN Norma Florence RN RN Dickson Holloway RN RN Real Price DO DO ms3 Kailey Portlilo MD MD sp3 ANEL KELLOGG RN RN dd2
[2024-02-28 10:05] VITALS: TEMP 98.3
[2024-02-28 10:06] VITALS: BP 136/70; O2SAT 99
== END 2024-02-28 09:32 | disposition home or self-care (01) ==
LOC: ER 06:09
DX: M62.81 Muscle weakness (generalized) (principal); E11.22 Type 2 diabetes mellitus with diabetic chronic kidney disease; I12.9 Hypertensive chronic kidney disease with stage 1 through stage 4 chronic kidney disease, or unspecified chronic kidney disease; N18.9 Chronic kidney disease, unspecified; D63.1 Anemia in chronic kidney disease; R74.01 Elevation of levels of liver transaminase levels; R74.02 Elevation of levels of lactic acid dehydrogenase [LDH]; Z79.01 Long term (current) use of anticoagulants; Z95.1 Presence of aortocoronary bypass graft; Z11.52 Encounter for screening for COVID-19
CPT/HCPCS: 36415; 71045; 80048; 80076; 83735; 83880; 84484; 85025; 85610; 87804; 87811; 99284

== ENCOUNTER 2024-07-19 12:43 | Emergency (ER) | payer BC, OTHER, SELFPAY ==
--- OUTSIDE RECORDS SUMMARY | 2024-07-19 13:01 | XMS REPORT | Continuity of Care Document ---
Author Name Unknown Address [address] [facility] [place] [address] Organization [facility] Address [address] [facility] [place] [address] Care Team Providers Care Payroll Tax Analyst Name Role Phone Kaveh Portillo Primary Care Physician [phone] Kaveh Portillo Attending Clinician Unavailable L_Pena Attending Clinician Unavailable Bladimir Morse Attending Clinician Unav ailMERCEDES Cook Attending Clinician Unavailab luis PAYNE_Lanie Attending Clinician Unavailable Doctor Unassigned, [place] Attending Clinician U Neil Ruggiero DO Attending Clinician [phone] TK YANES Attending Clinician Unavailable Becki Gil MD Attending Clinician [phone] BECKI GIL Attending Clinician Unavailable L_Pena Admitting Clinician Unavailable Talat Lord Admitting Clinician Unavailable TOPHER TAYLOR Admitting Clinician Rochelle PAYNE_F Admitting Clinician Unavailable Payers Payer Name Policy Type Policy Number Effective Date Expirati on Date Source [place] [id number] 2018 00:00:00 [place] [id number] 2018 00:00:00 Blue [employer] [place] 6 [id number] 2017 00:00:00 [facility] Problems Condition Name Condition Details Condition Category Status Onset Date Resolution Date Last Treatment Date Treating Clinician Comments Source Chronic kidney disease stage 3B Chronic Kidney Disease Stage 3B Problem Active 04-04 00:00: 00 [facility] Hypothyroi dism Hypothyroi dism Problem Active 8 00:00: 00 [facility] Coronary arterioscl erosis Coronary Arterioscl erosis Problem Active 4- 00:00: 00 [facility] History of coronary artery bypass grafting History of Coronary Artery Bypass Grafting Problem Active 4-08 00:00: 00 [facility] Myocardial infarction Myocardial Infarction Problem Active 3-04 00:00: 00 [facility] Mixed hyperlipid emia Mixed Hyperlipid emia Problem Active 13 00:00: 00 [facility] Cirrhosis of liver Cirrhosis of Liver Problem Active 2022-03 220 00:00: 00 [facility] Type 2 diabetes mellitus Type 2 Diabetes Mellitus Problem Active 2022-03 00:00: 00 [facility] Posttrauma tic stress disorder Posttrauma tic Stress Disorder Problem Active 2022-03 00:00: 00 [facility] Insomnia Insomnia Problem Active 2022-03 00:00: 00 [facility] Hypertensi ve disorder Hypertensi ve Disorder Problem Active 2022-03 00:00: 00 [facility] Morbid obesity due to excess calories Morbid obesity due to excess calories Disease Active 12-16 00:00: 00 [facility] Dyslipidem ia Dyslipidem ia Disease Active 12-16 00:00: 00 [facility] Essential hypertensi on Essential hypertensi on Disease Active 12-16 00:00: 00 [facility] History of hepatitis C History of Hepatitis C Problem Active [facility] [id number] Urge incontinen ce Problem [facility] Urethral stricture Urethral stricture Problem [facility] Chronic hepatitis C Chronic hepatitis C Problem [facility] Gastrointe stinal hemorrhage Gastrointe stinal hemorrhage Problem [facility] [id number] BPH loc w urin obs/LUTS Problem [facility] Chronic gastritis Chronic gastritis Problem [facility] Benign essential hypertensi on Benign essential hypertensi on Problem [facility] Erectile dysfunctio n Erectile dysfunctio n Problem [facility] [id number] Allergic rhinitis with mild intermitte nt asthma without status asthmaticu s without complicati on Problem [facility] Benign prostatic hyperplasi a BPH (benign prostatic hyperplasi a) Problem [facility] Benign prostatic hypertroph y without outflow obstructio n BPH without urinary obstructio n Problem [facility] Oesophagea l varices without bleeding Secondary esophageal varices without bleeding Problem [facility] [id number] Diaphragma tic hernia without obstructio n or gangrene Problem [facility] Dizziness Dizziness Problem [facility] Iron deficiency anemia due to chronic blood loss Iron deficiency anemia due to chronic blood loss Problem [facility] [id number] Microalbum inuria Problem [facility] [id number] Subclinica l hypothyroi dism Problem [facility] Syncope Syncope Problem [facility] [id number] Noncomplia nce with dietary restrictio n Problem [facility] [id number] Adult BMI 35.0-35.9 kg/sq m Problem [facility] [id number] Gross hematuria Problem [facility] [id number] Erectile dysfunctio n, unspecifie d erectile dysfunctio n type Problem [facility] [id number] Acquired contractur e of bladder neck Problem [facility] [id number] Balanopost hitis Problem [facility] Type II diabetes mellitus without complicati on Diabetes mellitus type 2, uncontroll ed, without complicati ons Problem [facility] [id number] OAB (overactiv e bladder) Problem [facility] [id number] Gastro-eso phageal reflux disease without esophagiti s Problem [facility] 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 Problem [facility] [id number] ED (erectile dysfunctio n) of organic origin Problem [facility] [id number] S/P TURP Problem [facility] [id number] Scrotal skin lesion Problem [facility] [id number] Other ejaculator y dysfunctio n Problem [facility] Allergies, Adverse Reactions, Alerts Allergy Name Allergy Type Status Severity Reaction(s) Onset Date Inactive Date Treating Clinician Comments Source No Known Allergie s DA Active U 05-30 00:00: 00 [facility] Losartan Propensi ty to adverse reaction s Active Cough 10-14 00:00: 00 [facility] LOSARTAN DRUG INGREDI Active COUGH 10-14 00:00: 00 [facility] No Known Drug Intolera nces DA Active U 08-16 00:00: 00 [facility] No Known Contrast Allergie s DA Active U 08-15 00:00: 00 [facility] No Known Drug Allergie s DA Active U 08-15 00:00: 00 [facility] No Known Food Allergie s DA Active U 08-15 00:00: 00 [facility] No Known Other Allergie s DA Active U 08-15 00:00: 00 [facility] Social History Social Habit Start Date Stop Date Quantity Comments Source History of Tobacco Use [facility] Sex Assigned At [facility] Sexual orientation U [facility] Exposure to SARS-CoV-2 (event) Not sure [facility] History of Social function 2020-02-21 00:00:00 2020-02-21 00:00:00 [facility] Tobacco use and exposure 2020-02-21 00:00:00 2020-02-21 00:00:00 Smokeless tobacco non-user [facility] Alcohol intake 2020-02-21 00:00:00 2020-02-21 00:00:00 Current non-drinker of alcohol (finding) [facility] Smoking Status Start Date Stop Date Source Never Smoker [facility] Ex-smoker 2020-02-21 00:00:00 2020-02-21 00:00:00 [facility] Medications Ordered Medication Name Filled Medication Name Start Date Stop Date Current Medication? Ordering Clinician Indication Dosage Frequency Signature (SIG) Comments Components Source potassium chloride ER 10 mEq tablet,exte nded release potassium chloride ER 10 mEq tablet,exte nded release 9-10 00:00: 00 No potassium chloride ER 10 mEq tablet,ext ended release [facility] traZODone HCl 50 MG traZODone HCl 50 MG 8-12 00:00: 00 No QD traZODone HCl 50 MG traZODone HCl 50 MG traZODone HCl 50 MG 0 8-12 00:00: 00 No QD traZODone HCl 50 MG traZODone HCl 50 MG traZODone HCl 50 MG 2020-0 8-12 00:00: 00 No QD traZODone HCl 50 MG traZODone HCl 50 MG traZODone HCl 50 MG 2021-0 8-12 00:00: 00 No QD traZODone HCl 50 MG traZODone HCl 50 MG traZODone HCl 50 MG 1-0 8-12 00:00: 00 No QD traZODone HCl 50 MG Sildenafil Citrate 100 MG Sildenafil Citrate 100 MG 2020-0 3-18 00:00: 00 01-09 00:00 :00 No QD Sildenafil Citrate 100 MG Sildenafil Citrate 100 MG Sildenafil Citrate 100 MG 2020-0 3-18 00:00: 00 01-09 00:00 :00 No QD Sildenafil Citrate 100 MG Sildenafil Citrate 100 MG Sildenafil Citrate 100 MG 2020-0 3-18 00:00: 00 01-09 00:00 :00 No QD Sildenafil Citrate 100 MG VESIcare 5 MG VESIcare 5 MG 2020-0 3-18 00:00: 00 09-11 00:00 :00 No 1{table t} QD VESIcare 5 MG VESIcare 5 MG VESIcare 5 MG 2020-0 3-18 00:00: 00 09-11 00:00 :00 No 1{table t} QD VESIcare 5 MG Nystatin-Tr iamcinolone 902656-2.1 UNIT/GM Nystatin-Tr iamcinolone 148369-1.1 UNIT/GM 1-0 18 00:00: 00 09-05 00:00 :00 No 1{appli cation} BID Nystatin-T riamcinolo ne 465241-2.1 UNIT/GM Nystatin-Tr iamcinolone 558435-5.1 UNIT/GM Nystatin-Tr iamcinolone 421867-3.1 UNIT/GM 1-0 18 00:00: 00 09-05 00:00 :00 No 1{appli cation} BID Nystatin-T riamcinolo ne 806738-0.1 UNIT/GM Tadalafil 20 MG Tadalafil 20 MG 2020-0 2-11 00:00: 00 12-05 00:00 :00 No 1{table t} Tadalafil 20 MG Tadalafil 20 MG Tadalafil 20 MG 2020-0 2-11 00:00: 00 12-05 00:00 :00 No 1{table t} Tadalafil 20 MG Tadalafil 20 MG Tadalafil 20 MG 05-09 00:00: 00 12-05 00:00 :00 No 1{table t} Tadalafil 20 MG carvedilol 25 mg tablet 2019-03 14:55: 06 Yes 25mg Take 25 mg by mouth 2 (two) times daily with meals. [facility] aspirin 81 mg EC tablet 2019-03 14:55: 06 Yes 81mg Take 81 mg by mouth daily. [facility] GLUCOSAMINE SULFATE (GLUCOSAMIN E ORAL) 2019-03 14:55: 06 Yes 4000mg Take 4,000 mg by mouth daily. [facility] guaiFENesin (MUCINEX) 600 mg tablet 2019-03 14:55: 06 Yes 600mg Take 600 mg by mouth every 12 (twelve) hours. [facility] carvedilol 25 mg tablet 2019-03 08:55: 06 Yes 25mg Take 25 mg by mouth 2 (two) times daily with meals. [facility] aspirin 81 mg EC tablet 2019-03 08:55: 06 Yes 81mg Take 81 mg by mouth daily. [facility] GLUCOSAMINE SULFATE (GLUCOSAMIN E ORAL) 2019-03 08:55: 06 Yes 4000mg Take 4,000 mg by mouth daily. [facility] guaiFENesin (MUCINEX) 600 mg tablet 2019-03 08:55: 06 Yes 600mg Take 600 mg by mouth every 12 (twelve) hours. [facility] hydroCHLORO thiazide 25 mg tablet 2017-03 00:00: 00 Yes 25mg Take 1 tablet by mouth daily. [facility] carvedilol 25 mg tablet 07-21 18:08: 35 Yes 25mg Take 25 mg by mouth 2 (two) times daily with meals. [facility] aspirin 81 mg EC tablet 07-21 18:08: 35 Yes 81mg Take 81 mg by mouth daily. [facility] GLUCOSAMINE SULFATE (GLUCOSAMIN E ORAL) 07-21 18:08: 35 Yes 4000mg Take 4,000 mg by mouth daily. [facility] guaiFENesin (MUCINEX) 600 mg tablet 07-21 18:08: 35 Yes 600mg Take 600 mg by mouth every 12 (twelve) hours. [facility] empaglifloz in (JARDIANCE) 25 mg Tab 06-30 00:00: 00 Yes [id number] Take 1 TAB-CAP/M2 by mouth daily. [facility] atorvastati n 20 mg tablet 06-30 00:00: 00 Yes [id number] 20mg Take 1 tablet by mouth at bedtime. [facility] Amlodipine Besylate Amlodipine Besylate Yes [employer]gen [employer] 1 cap daily [facility] Spironolact one Spironolact one Yes [employer] [place] 1 tablet with food [facility] Jardiance Jardiance Yes Virgen Phill 1 tablet [facility] Pantoprazol e Sodium Pantoprazol e Sodium Yes [employer] [place] [place] 1 tablet [facility] Pravachol Pravachol Yes [employer] [place] 1 tablet [facility] Aspirin 81 Aspirin 81 Yes Virgen Phill 1 tablet [facility] amiodarone 200 mg tablet Take 1 tablet 3 times a day by oral route. amiodarone 200 mg tablet Take 1 tablet 3 times a day by oral route. No amiodarone 200 mg tablet Take 1 tablet 3 times a day by oral route. [facility] ProAir HFA ProAir HFA Yes Virgen Pollock 2 puffs as needed [facility] aspirin aspirin No aspirin S weeny [facility] Trulicity Trulicity Yes Virgen Pollock Inject 0.5 ml [facility] bumetanide 1 mg tablet 4 tabs BID bumetanide 1 mg tablet 4 tabs BID No bumetanide 1 mg tablet 4 tabs BID [facility] Ferrous Sulfate Ferrous Sulfate Yes [employer] [place] 1 tablet [facility] clopidogrel 75 mg tablet TAKE 1 TABLET BY MOUTH EVERY DAY clopidogrel 75 mg tablet TAKE 1 TABLET BY MOUTH EVERY DAY No 1 Q1D clopidogre l 75 mg tablet TAKE 1 TABLET BY MOUTH EVERY DAY [facility] Glucosamine Glucosamine Yes Virgen Pollock not defined [facility] metoprolol tartrate 25 mg tablet 1/2 tab bid metoprolol tartrate 25 mg tablet 1/2 tab bid No metoprolol tartrate 25 mg tablet 1/2 tab bid [facility] Toujeo SoloStar Toujeo SoloStar Yes Virgen Pollock INJECT 68 UNITS UNDER THE SKIN DAILY [facility] montelukast 10 mg tablet Take 1 tablet every day by oral route for 90 days. montelukast 10 mg tablet Take 1 tablet every day by oral route for 90 days. No montelukas t 10 mg tablet Take 1 tablet every day by oral route for 90 days. [facility] Terazosin HCl Terazosin HCl Yes Virgen Pollock 1 capsule [facility] pantoprazol e 40 mg tablet,delvin yed release Take 1 tablet every day by oral route for 90 days. pantoprazol e 40 mg tablet,delvin yed release Take 1 tablet every day by oral route for 90 days. No pantoprazo le 40 mg tablet,del ayed release Take 1 tablet every day by oral route for 90 days. [facility] MetFORMIN HCl ER MetFORMIN HCl ER Yes Virgen Pollock 2 tablets [facility] pravastatin 40 mg tablet TAKE 1 TABLET BY MOUTH EVERY NIGHT AT BEDTIME pravastatin 40 mg tablet TAKE 1 TABLET BY MOUTH EVERY NIGHT AT BEDTIME No pravastati n 40 mg tablet TAKE 1 TABLET BY MOUTH EVERY NIGHT AT BEDTIME [facility] BD Pen Needle Mini U/F BD Pen Needle Mini U/F Yes Virgen Pollock as directed [facility] spironolact one 25 mg tablet Take 1 tablet twice a day by oral route. spironolact one 25 mg tablet Take 1 tablet twice a day by oral route. No spironolac tone 25 mg tablet Take 1 tablet twice a day by oral route. [facility] Tamsulosin HCl Tamsulosin HCl Yes Virgen Pollock 1 capsule [facility] Coreg Coreg Yes Virgen Pollock 1 cap [facility] terazosin 2 mg capsule TAKE 1 CAPSULE BY MOUTH EVERY DAY terazosin 2 mg capsule TAKE 1 CAPSULE BY MOUTH EVERY DAY No terazosin 2 mg capsule TAKE 1 CAPSULE BY MOUTH EVERY DAY [facility] Hydrochloro thiazide Hydrochloro thiazide Yes Virgen Pollock 1 tablet in the morning [facility] hydrochloro thiazide 50 mg tablet Take 1 tablet every day by oral route in the morning for 90 days. hydrochloro thiazide 50 mg tablet Take 1 tablet every day by oral route in the morning for 90 days. No hydrochlor othiazide 50 mg tablet Take 1 tablet every day by oral route in the morning for 90 days. [facility] Trelegy Ellipta Trelegy Ellipta Yes Virgen Pollock 1 puff [facility] Multivitami n 50 Plus Multivitami n 50 Plus No Multivitam in 50 Plus [facility] Vitamin B1 100 mg tablet Take 1 tablet every day by oral route. Vitamin B1 100 mg tablet Take 1 tablet every day by oral route. No 1 Q1D Vitamin B1 100 mg tablet Take 1 tablet every day by oral route. [facility] Jardiance 25 MG Jardiance 25 MG No 1{table t} QD Jardiance 25 MG Vitamin B12 500 mcg tablet Take 1 tablet every day by oral route. Vitamin B12 500 mcg tablet Take 1 tablet every day by oral route. No 1 Q1D Vitamin B12 500 mcg tablet Take 1 tablet every day by oral route. [facility] Pravachol 40 MG Pravachol 40 MG No 1{table t} QD Pravachol 40 MG Vitamin D3 5000 units daily Vitamin D3 5000 units daily No Vitamin D3 5000 units daily [facility] Hydrochloro thiazide 25 MG Hydrochloro thiazide 25 MG No 1{table t_in_th barney_oren ng} QD Hydrochlor othiazide 25 MG BD Ultra-Fine Mini Pen Needle 31 gauge x 16" DIRECTED BD Ultra-Fine Mini Pen Needle 31 gauge x 3/16" DIRECTED No BD Ultra-Fine Mini Pen Needle 31 gauge x 3/16" DIRECTED [facility] Toujeo SoloStar 300 UNIT/ML Toujeo SoloStar 300 UNIT/ML No QD Toujeo SoloStar 300 UNIT/ML Jardiance 10 mg tablet Take 1 tablet every day by oral route in the morning for 90 days. Jardiance 10 mg tablet Take 1 tablet every day by oral route in the morning for 90 days. No 1 Q1D Jardiance 10 mg tablet Take 1 tablet every day by oral route in the morning for 90 days. [facility] Ferrous Sulfate 325 (65 Fe) MG Ferrous Sulfate 325 (65 Fe) MG No 1{table t} BID Ferrous Sulfate 325 (65 Fe) MG Mounjaro 2.5 mg/0.5 mL subcutaneou s pen injector Inject 2.5 mg every week by subcutaneou s route for 84 days. Mounjaro 2.5 mg/0.5 mL subcutaneou s pen injector Inject 2.5 mg every week by subcutaneou s route for 84 days. No 2.5mg Q1W Mounjaro 2.5 mg/0.5 mL subcutaneo us pen injector Inject 2.5 mg every week by subcutaneo us route for 84 days. [facility] Anoro Ellipta 62.5mcg/25 mcg Anoro Ellipta 62.5mcg/25 mcg No Anoro Ellipta 62.5mcg/25 mcg FreeStyle Nikki 3 Sensor device USE DIRECTED FreeStyle Nikki 3 Sensor device USE DIRECTED No FreeStyle Nikki 3 Sensor device USE DIRECTED [facility] Spironolact one 25 MG Spironolact one 25 MG No 1{table t_with_ food} QD Spironolac tone 25 MG levothyroxi ne 125 mcg tablet Take 1 tablet every day by oral route in the morning for 90 days. levothyroxi ne 125 mcg tablet Take 1 tablet every day by oral route in the morning for 90 days. No 1 Q1D levothyrox ine 125 mcg tablet Take 1 tablet every day by oral route in the morning for 90 days. [facility] Terazosin HCl 2 MG Terazosin HCl 2 MG No 1{capsu le} QD Terazosin HCl 2 MG metformin 500 mg tablet TAKE 1 TABLET BY MOUTH 2 TIMES A DAY metformin 500 mg tablet TAKE 1 TABLET BY MOUTH 2 TIMES A DAY No metformin 500 mg tablet TAKE 1 TABLET BY MOUTH 2 TIMES A DAY [facility] Aspirin 81 81 MG Aspirin 81 81 MG No 1{table t} QD Aspirin 81 81 MG mupirocin 2 % topical ointment APPLY A SMALL AMOUNT TO THE AFFECTED AREA BY TOPICAL ROUTE 3 TIMES PER DAY mupirocin 2 % topical ointment APPLY A SMALL AMOUNT TO THE AFFECTED AREA BY TOPICAL ROUTE 3 TIMES PER DAY No mupirocin 2 % topical ointment APPLY A SMALL AMOUNT TO THE AFFECTED AREA BY TOPICAL ROUTE 3 TIMES PER DAY [facility] ProAir HFA 108 (90 Base) MCG/ACT ProAir HFA 108 (90 Base) MCG/ACT No 2{puffs _as_nee ded} ProAir HFA 108 (90 Base) MCG/ACT Toujeo Max U-300 SoloStar 300 unit/mL (3 mL) subcutaneou s insulin pen Inject 10 units every day by subcutaneou s route in the morning for 90 days. Toujeo Max U-300 SoloStar 300 unit/mL (3 mL) subcutaneou s insulin pen Inject 10 units every day by subcutaneou s route in the morning for 90 days. No 10unit( s) Q1D Toujeo Max U-300 SoloStar 300 unit/mL (3 mL) subcutaneo us insulin pen Inject 10 units every day by subcutaneo us route in the morning for 90 days. [facility] Coreg 25 MG Coreg 25 MG No BID Co reg 25 MG FreeStyle Nikki 2 Sensor kit USE DIRECTED. FreeStyle Nikki 2 Sensor kit USE DIRECTED. No FreeStyle Nikki 2 Sensor kit USE DIRECTED. [facility] Amlodipine Besylate 10 MG Amlodipine Besylate 10 MG No QD Amlodipine Besylate 10 MG Tamsulosin HCl 0.4 MG Tamsulosin HCl 0.4 MG No 1{capsu le} QD Tamsulosin HCl 0.4 MG Pravastatin Sodium 40 MG Pravastatin Sodium 40 MG No Pravastati n Sodium 40 MG Trulicity 1.5 MG/0.5ML Trulicity 1.5 MG/0.5ML No Trulicity 1.5 MG/0.5ML Pantoprazol e Sodium 40 MG Pantoprazol e Sodium 40 MG No 1{table t} QD Pantoprazo le Sodium 40 MG Trelegy Ellipta 100-62.5-25 MCG/INH Trelegy Ellipta 100-62.5-25 MCG/INH No 1{puff} QD Trelegy Ellipta 100-62.5-2 5 MCG/INH BD Pen Needle Mini U/F 31G X 5 MM BD Pen Needle Mini U/F 31G X 5 MM No BD Pen Needle Mini U/F 31G X 5 MM MetFORMIN HCl ER 500 MG MetFORMIN HCl ER 500 MG No MetFORMIN HCl ER 500 MG Ferrous Sulfate 325 (65 Fe) MG Ferrous Sulfate 325 (65 Fe) MG No 1{table t} BID Ferrous Sulfate 325 (65 Fe) MG Anoro Ellipta 62.5mcg/25 mcg Anoro Ellipta 62.5mcg/25 mcg No Anoro Ellipta 62.5mcg/25 mcg Hydrochloro thiazide 25 MG Hydrochloro thiazide 25 MG No 1{table t_in_ e_morni ng} QD Hydrochlor othiazide 25 MG Spironolact one 25 MG Spironolact one 25 MG No 1{table t_with_ food} QD Spironolac tone 25 MG Terazosin HCl 2 MG Terazosin HCl 2 MG No 1{capsu le} QD Terazosin HCl 2 MG Aspirin 81 81 MG Aspirin 81 81 MG No 1{table t} QD Aspirin 81 81 MG ProAir HFA 108 (90 Base) MCG/ACT ProAir HFA 108 (90 Base) MCG/ACT No 2{puffs _as_nee ded} ProAir HFA 108 (90 Base) MCG/ACT Coreg 25 MG Coreg 25 MG No BID Co reg 25 MG Toujeo SoloStar 300 UNIT/ML Toujeo SoloStar 300 UNIT/ML No Toujeo SoloStar 300 UNIT/ML Amlodipine Besylate 10 MG Amlodipine Besylate 10 MG No QD Amlodipine Besylate 10 MG Pantoprazol e Sodium 40 MG Pantoprazol e Sodium 40 MG No 1{table t} QD Pantoprazo le Sodium 40 MG Trulicity 1.5 MG/0.5ML Trulicity 1.5 MG/0.5ML No Trulicity 1.5 MG/0.5ML Pravachol 40 MG Pravachol 40 MG No 1{table t} QD Pravachol 40 MG Tamsulosin HCl 0.4 MG Tamsulosin HCl 0.4 MG No 1{capsu le} QD Tamsulosin HCl 0.4 MG Jardiance 25 MG Jardiance 25 MG No 1{table t} QD Jardiance 25 MG Pravastatin Sodium 40 MG Pravastatin Sodium 40 MG No Pravastati n Sodium 40 MG BD Pen Needle Mini U/F 31G X 5 MM BD Pen Needle Mini U/F 31G X 5 MM No BD Pen Needle Mini U/F 31G X 5 MM Trelegy Ellipta 100-62.5-25 MCG/INH Trelegy Ellipta 100-62.5-25 MCG/INH No 1{puff} QD Trelegy Ellipta 100-62.5-2 5 MCG/INH MetFORMIN HCl ER 500 MG MetFORMIN HCl ER 500 MG No MetFORMIN HCl ER 500 MG Glucosamine Glucosamine No Gl ucosamin e BD Pen Needle Mini U/F 31G X 5 MM BD Pen Needle Mini U/F 31G X 5 MM No BD Pen Needle Mini U/F 31G X 5 MM Jardiance 25 MG Jardiance 25 MG No 1{table t} QD Jardiance 25 MG Spironolact one 25 MG Spironolact one 25 MG No Spironolac tone 25 MG Terazosin HCl 2 MG Terazosin HCl 2 MG No 1{capsu le} QD Terazosin HCl 2 MG Trelegy Ellipta 100-62.5-25 MCG/INH Trelegy Ellipta 100-62.5-25 MCG/INH No 1{puff} QD Trelegy Ellipta 100-62.5-2 5 MCG/INH Aspirin 81 81 MG Aspirin 81 81 MG No 1{table t} QD Aspirin 81 81 MG Pantoprazol e Sodium 40 MG Pantoprazol e Sodium 40 MG No 1{table t} QD Pantoprazo le Sodium 40 MG Pravachol 40 MG Pravachol 40 MG No 1{table t} QD Pravachol 40 MG hydroCHLORO thiazide 25 MG hydroCHLORO thiazide 25 MG No 1{table t_in e_morni ng} QD hydroCHLOR Othiazide 25 MG Trulicity 1.5 MG/0.5ML Trulicity 1.5 MG/0.5ML No Trulicity 1.5 MG/0.5ML Pravastatin Sodium 40 MG Pravastatin Sodium 40 MG No Pravastati n Sodium 40 MG metFORMIN HCl ER 500 MG metFORMIN HCl ER 500 MG No metFORMIN HCl ER 500 MG Ferrous Sulfate 325 (65 Fe) MG Ferrous Sulfate 325 (65 Fe) MG No 1{table t} BID Ferrous Sulfate 325 (65 Fe) MG Coreg 25 MG Coreg 25 MG No BID Co reg 25 MG ProAir HFA 108 (90 Base) MCG/ACT ProAir HFA 108 (90 Base) MCG/ACT No 2{puffs _as_nee ded} ProAir HFA 108 (90 Base) MCG/ACT Toujeo SoloStar 300 UNIT/ML Toujeo SoloStar 300 UNIT/ML No QD Toujeo SoloStar 300 UNIT/ML amLODIPine Besylate 10 MG amLODIPine Besylate 10 MG No amLODIPine Besylate 10 MG Tamsulosin HCl 0.4 MG Tamsulosin HCl 0.4 MG No 1{capsu le} QD Tamsulosin HCl 0.4 MG Terazosin HCl 2 MG Terazosin HCl 2 MG No 1{capsu le} QD Terazosin HCl 2 MG ProAir HFA 108 (90 Base) MCG/ACT ProAir HFA 108 (90 Base) MCG/ACT No 2{puffs _as_nee ded} ProAir HFA 108 (90 Base) MCG/ACT Jardiance 25 MG Jardiance 25 MG No Jardiance 25 MG Pravastatin Sodium 40 MG Pravastatin Sodium 40 MG No Pravastati n Sodium 40 MG Pravachol 40 MG Pravachol 40 MG No 1{table t} QD Pravachol 40 MG FeroSul 325 (65 Fe) MG FeroSul 325 (65 Fe) MG No FeroSul 325 (65 Fe) MG hydroCHLORO thiazide 25 MG hydroCHLORO thiazide 25 MG No 1{table t_in e_morni ng} QD hydroCHLOR Othiazide 25 MG Trelegy Ellipta 100-62.5-25 MCG/INH Trelegy Ellipta 100-62.5-25 MCG/INH No 1{puff} QD Trelegy Ellipta 100-62.5-2 5 MCG/INH Pantoprazol e Sodium 40 MG Pantoprazol e Sodium 40 MG No 1{table t} QD Pantoprazo le Sodium 40 MG Glucosamine Glucosamine No Gl ucosamin e Coreg 25 MG Coreg 25 MG No 1{table t_with_ food} BID Coreg 25 MG metFORMIN HCl ER 500 MG metFORMIN HCl ER 500 MG No metFORMIN HCl ER 500 MG Trulicity 1.5 MG/0.5ML Trulicity 1.5 MG/0.5ML No Trulicity 1.5 MG/0.5ML Spironolact one 25 MG Spironolact one 25 MG No Spironolac tone 25 MG Toujeo SoloStar 300 UNIT/ML Toujeo SoloStar 300 UNIT/ML No Toujeo SoloStar 300 UNIT/ML BD Pen Needle Mini U/F 31G X 5 MM BD Pen Needle Mini U/F 31G X 5 MM No BD Pen Needle Mini U/F 31G X 5 MM Tamsulosin HCl 0.4 MG Tamsulosin HCl 0.4 MG No 1{capsu le} QD Tamsulosin HCl 0.4 MG amLODIPine Besylate 10 MG amLODIPine Besylate 10 MG No amLODIPine Besylate 10 MG Aspirin 81 81 MG Aspirin 81 81 MG No 1{table t} QD Aspirin 81 81 MG Solifenacin Succinate 5 MG Solifenacin Succinate 5 MG No 1{table t} QD Solifenaci n Succinate 5 MG BD Pen Needle Mini U/F 31G X 5 MM BD Pen Needle Mini U/F 31G X 5 MM No BD Pen Needle Mini U/F 31G X 5 MM amLODIPine Besylate 10 MG amLODIPine Besylate 10 MG No QD amLODIPine Besylate 10 MG metFORMIN HCl ER 500 metFORMIN HCl ER 500 No 2{table ts} BID metFORMIN HCl ER 500 Pantoprazol e Sodium 40 MG Pantoprazol e Sodium 40 MG No 1{table t} QD Pantoprazo le Sodium 40 MG Solifenacin Succinate 5 MG Solifenacin Succinate 5 MG No 1{table t} QD Solifenaci n Succinate 5 MG ProAir HFA 108 (90 Base) MCG/ACT ProAir HFA 108 (90 Base) MCG/ACT No 2{puffs _as_nee ded} ProAir HFA 108 (90 Base) MCG/ACT Spironolact one 25 MG Spironolact one 25 MG No 1{table t_with_ food} QD Spironolac tone 25 MG Pravachol 40 MG Pravachol 40 MG No 1{table t} QD Pravachol 40 MG Tamsulosin HCl 0.4 MG Tamsulosin HCl 0.4 MG No 1{capsu le} QD Tamsulosin HCl 0.4 MG Coreg 25 MG Coreg 25 MG No BID Co reg 25 MG Trelegy Ellipta 100-62.5-25 MCG/INH Trelegy Ellipta 100-62.5-25 MCG/INH No 1{puff} QD Trelegy Ellipta 100-62.5-2 5 MCG/INH Ferrous Sulfate 325 (65 Fe) MG Ferrous Sulfate 325 (65 Fe) MG No 1{table t} BID Ferrous Sulfate 325 (65 Fe) MG hydroCHLORO thiazide 25 MG hydroCHLORO thiazide 25 MG No 1{table t_in_th e_morni ng} QD hydroCHLOR Othiazide 25 MG Jardiance 25 MG Jardiance 25 MG No 1{table t} QD Jardiance 25 MG Pravastatin Sodium 40 MG Pravastatin Sodium 40 MG No QD Pravastati n Sodium 40 MG Toujeo SoloStar 300 UNIT/ML Toujeo SoloStar 300 UNIT/ML No QD Toujeo SoloStar 300 UNIT/ML metFORMIN HCl ER 500 MG metFORMIN HCl ER 500 MG No metFORMIN HCl ER 500 MG Aspirin 81 81 MG Aspirin 81 81 MG No 1{table t} QD Aspirin 81 81 MG Terazosin HCl 2 MG Terazosin HCl 2 MG No QD Terazosin HCl 2 MG Trulicity 1.5 MG/0.5ML Trulicity 1.5 MG/0.5ML No Trulicity 1.5 MG/0.5ML Ferrous Sulfate 325 (65 Fe) MG Ferrous Sulfate 325 (65 Fe) MG No 1{table t} BID Ferrous Sulfate 325 (65 Fe) MG Glucosamine Glucosamine No Gl ucosamin e Trulicity 1.5 MG/0.5ML Trulicity 1.5 MG/0.5ML No Trulicity 1.5 MG/0.5ML Pravastatin Sodium 40 MG Pravastatin Sodium 40 MG No QD Pravastati n Sodium 40 MG amLODIPine Besylate 10 MG amLODIPine Besylate 10 MG No QD amLODIPine Besylate 10 MG Solifenacin Succinate 5 MG Solifenacin Succinate 5 MG No 1{table t} QD Solifenaci n Succinate 5 MG Jardiance 25 MG Jardiance 25 MG No Jardiance 25 MG BD Pen Needle Mini U/F 31G X 5 MM BD Pen Needle Mini U/F 31G X 5 MM No BD Pen Needle Mini U/F 31G X 5 MM Ferrous Sulfate 325 (65 Fe) MG Ferrous Sulfate 325 (65 Fe) MG No 1{table t} BID Ferrous Sulfate 325 (65 Fe) MG Aspirin 81 81 MG Aspirin 81 81 MG No 1{table t} QD Aspirin 81 81 MG Tamsulosin HCl 0.4 MG Tamsulosin HCl 0.4 MG No 1{capsu le} QD Tamsulosin HCl 0.4 MG FeroSul 325 (65 Fe) MG FeroSul 325 (65 Fe) MG No FeroSul 325 (65 Fe) MG hydroCHLORO thiazide 25 MG hydroCHLORO thiazide 25 MG No 1{table t_in_th e_morni ng} QD hydroCHLOR Othiazide 25 MG Coreg 25 MG Coreg 25 MG No BID Co reg 25 MG Terazosin HCl 2 MG Terazosin HCl 2 MG No 1{capsu le} QD Terazosin HCl 2 MG Toujeo SoloStar 300 UNIT/ML Toujeo SoloStar 300 UNIT/ML No QD Toujeo SoloStar 300 UNIT/ML metFORMIN HCl ER 500 MG metFORMIN HCl ER 500 MG No metFORMIN HCl ER 500 MG Pravachol 40 MG Pravachol 40 MG No 1{table t} QD Pravachol 40 MG Pantoprazol e Sodium 40 MG Pantoprazol e Sodium 40 MG No 1{table t} QD Pantoprazo le Sodium 40 MG Spironolact one 25 MG Spironolact one 25 MG No 1{table t_with_ food} QD Spironolac tone 25 MG Glucosamine Glucosamine No Gl ucosamin e Trulicity 1.5 MG/0.5ML Trulicity 1.5 MG/0.5ML No Trulicity 1.5 MG/0.5ML Pravastatin Sodium 40 MG Pravastatin Sodium 40 MG No QD Pravastati n Sodium 40 MG amLODIPine Besylate 10 MG amLODIPine Besylate 10 MG No QD amLODIPine Besylate 10 MG Solifenacin Succinate 5 MG Solifenacin Succinate 5 MG No 1{table t} QD Solifenaci n Succinate 5 MG Jardiance 25 MG Jardiance 25 MG No Jardiance 25 MG BD Pen Needle Mini U/F 31G X 5 MM BD Pen Needle Mini U/F 31G X 5 MM No BD Pen Needle Mini U/F 31G X 5 MM Ferrous Sulfate 325 (65 Fe) MG Ferrous Sulfate 325 (65 Fe) MG No 1{table t} BID Ferrous Sulfate 325 (65 Fe) MG Aspirin 81 81 MG Aspirin 81 81 MG No 1{table t} QD Aspirin 81 81 MG Tamsulosin HCl 0.4 MG Tamsulosin HCl 0.4 MG No 1{capsu le} QD Tamsulosin HCl 0.4 MG FeroSul 325 (65 Fe) MG FeroSul 325 (65 Fe) MG No FeroSul 325 (65 Fe) MG hydroCHLORO thiazide 25 MG hydroCHLORO thiazide 25 MG No 1{table t_in_th e_morni ng} QD hydroCHLOR Othiazide 25 MG Coreg 25 MG Coreg 25 MG No BID Co reg 25 MG Terazosin HCl 2 MG Terazosin HCl 2 MG No 1{capsu le} QD Terazosin HCl 2 MG Toujeo SoloStar 300 UNIT/ML Toujeo SoloStar 300 UNIT/ML No QD Toujeo SoloStar 300 UNIT/ML metFORMIN HCl ER 500 MG metFORMIN HCl ER 500 MG No metFORMIN HCl ER 500 MG Pravachol 40 MG Pravachol 40 MG No 1{table t} QD Pravachol 40 MG Pantoprazol e Sodium 40 MG Pantoprazol e Sodium 40 MG No 1{table t} QD Pantoprazo le Sodium 40 MG Spironolact one 25 MG Spironolact one 25 MG No 1{table t_with_ food} QD Spironolac tone 25 MG Immunizations Ordered Immunization Name Filled Immunization Name Date Status Comments Source Moderna COVID-19 Vaccine (Low Dose Booster) Moderna COVID-19 Vaccine (Low Dose Booster) 2021-02-14 16:19:00 [facility] Moderna COVID-19 Vaccine (Low Dose Booster) Moderna COVID-19 Vaccine (Low Dose Booster) 2021-02-14 16:19:00 [facility] Moderna COVID-19 Vaccine (Low Dose Booster) Moderna COVID-19 Vaccine (Low Dose Booster) 2021-02-14 16:19:00 Completed [facility] Moderna COVID-19 Vaccine (Low Dose Booster) Moderna COVID-19 Vaccine (Low Dose Booster) 2021-02-14 16:19:00 Completed [facility] FluAD FluAD 2021-01-22 15:47:00 Completed [facility] FluAD FluAD 2021-01-22 15:47:00 Completed [facility] FluAD FluAD 2021-01-22 15:47:00 Completed [facility] FluAD FluAD 2021-01-22 15:47:00 Completed [facility] Pneumovax (PPSV23) Pneumovax (PPSV23) 2021-01-22 15:46:00 Completed [facility] Pneumovax (PPSV23) Pneumovax (PPSV23) 2021-01-22 15:46:00 Completed [facility] Pneumovax (PPSV23) Pneumovax (PPSV23) 2021-01-22 15:46:00 Completed [facility] Pneumovax (PPSV23) Pneumovax (PPSV23) 2021-01-22 15:46:00 Completed [facility] Moderna COVID-19 Vaccine Moderna COVID-19 Vaccine 2020-06-26 15:30:00 Completed [facility] Moderna COVID-19 Vaccine Moderna COVID-19 Vaccine 2020-06-26 15:30:00 Completed [facility] Moderna COVID-19 Vaccine Moderna COVID-19 Vaccine 2020-06-26 15:30:00 Completed [facility] Moderna COVID-19 Vaccine Moderna COVID-19 Vaccine 2020-06-26 15:30:00 Completed [facility] Moderna COVID-19 Vaccine Moderna COVID-19 Vaccine 2020-05-29 15:30:00 Completed [facility] Moderna COVID-19 Vaccine Moderna COVID-19 Vaccine 2020-05-29 15:30:00 Completed [facility] Moderna COVID-19 Vaccine Moderna COVID-19 Vaccine 2020-05-29 15:30:00 Completed [facility] Moderna COVID-19 Vaccine Moderna COVID-19 Vaccine 2020-05-29 15:30:00 Completed [facility] FluAD FluAD 2020-01-15 13:39:00 Completed [facility] Prevnar 13 (PCV13) Prevnar 13 (PCV13) 2020-01-15 13:39:00 Completed [facility] FluAD FluAD 2020-01-15 13:39:00 Completed [facility] Prevnar 13 (PCV13) Prevnar 13 (PCV13) 2020-01-15 13:39:00 Completed [facility] FluAD FluAD 2020-01-15 13:39:00 Completed [facility] Prevnar 13 (PCV13) Prevnar 13 (PCV13) 2020-01-15 13:39:00 Completed [facility] FluAD FluAD 2020-01-15 13:39:00 Completed [facility] Prevnar 13 (PCV13) Prevnar 13 (PCV13) 2020-01-15 13:39:00 Completed [facility] FluAD FluAD 2020-01-15 13:39:00 Completed [facility] Prevnar 13 (PCV13) Prevnar 13 (PCV13) 2020-01-15 13:39:00 Completed [facility] FluAD FluAD 2020-01-15 13:39:00 Completed [facility] Prevnar 13 (PCV13) Prevnar 13 (PCV13) 2020-01-15 13:39:00 Completed [facility] FluAD FluAD 2020-01-15 13:39:00 Completed [facility] Prevnar 13 (PCV13) Prevnar 13 (PCV13) 2020-01-15 13:39:00 Completed [facility] Flucelvax - multidose vial Flucelvax - multidose vial 2019-01-10 13:22:00 Completed [facility] Flucelvax - multidose vial Flucelvax - multidose vial 2019-01-10 13:22:00 Completed [facility] Flucelvax - multidose vial Flucelvax - multidose vial 2019-01-10 13:22:00 Completed [facility] Flucelvax - multidose vial Flucelvax - multidose vial 2019-01-10 13:22:00 Completed [facility] Flucelvax - multidose vial Flucelvax - multidose vial 2019-01-10 13:22:00 Completed [facility] Flucelvax - multidose vial Flucelvax - multidose vial 2019-01-10 13:22:00 Completed [facility] Flucelvax - multidose vial Flucelvax - multidose vial 2019-01-10 13:22:00 Completed [facility] Afluria Afluria 2018-01-27 13:10:00 Completed [facility] Adacel (Tdap) Adacel (Tdap) 2018-01-27 13:10:00 Completed [facility] Afluria Afluria 2018-01-27 13:10:00 Completed [facility] Adacel (Tdap) Adacel (Tdap) 2018-01-27 13:10:00 Completed [facility] Afluria Afluria 2018-01-27 13:10:00 Completed [facility] Adacel (Tdap) Adacel (Tdap) 2018-01-27 13:10:00 Completed [facility] Afluria Afluria 2018-01-27 13:10:00 Completed [facility] Adacel (Tdap) Adacel (Tdap) 2018-01-27 13:10:00 Completed [facility] Afluria Afluria 2018-01-27 13:10:00 Completed [facility] Adacel (Tdap) Adacel (Tdap) 2018-01-27 13:10:00 Completed [facility] 13:10:00 Completed [facility] Adacel (Tdap) Adacel (Tdap) 2018-01-27 13:10:00 Completed [facility] Afluria [facility] 2018-01-27 13:10:00 Completed [facility] Adacel (Tdap) Adacel (Tdap) 2018-01-27 13:10:00 Completed [facility] influenza, unspecified formulation influenza, unspecified formulation Unknown Completed [facility] Tdap Tdap Unknown Completed [facility] Vital Signs Vital Name Observation Time Observation Value Comments S ource BMI (Body Mass Index) 2024-07-13 00:00:00 23.8 kg/m2 [facility] BP Diastolic 2024-07-13 00:00:00 68 mm[Hg] [facility] Body Weight 2024-07-13 00:00:00 2576 [oz_av] [facility] BP Systolic 2024-07-13 00:00:00 128 mm[Hg] [facility] Height 2024-07-13 00:00:00 69 [in_i] [facility] Height 2024-06-06 00:00:00 69 [in_i] [facility] BP Diastolic 2024-06-06 00:00:00 60 mm[Hg] [facility] BP Systolic 2024-06-06 00:00:00 139 mm[Hg] [facility] Body Weight 2024-06-06 00:00:00 2748.8 [oz_av] [facility] BMI (Body Mass Index) 2024-06-06 00:00:00 25.4 kg/m2 [facility] BMI (Body Mass Index) 2024-05-24 00:00:00 28.8 kg/m2 [facility] Height 2024-05-24 00:00:00 69 [in_i] [facility] Body Weight 2024-05-24 00:00:00 3120 [oz_av] [facility] BP Diastolic 2024-05-24 00:00:00 63 mm[Hg] [facility] BP Systolic 2024-05-24 00:00:00 143 mm[Hg] [facility] Height 2024-03-09 00:00:00 69 [in_i] [facility] BP Diastolic 2024-03-09 00:00:00 67 mm[Hg] [facility] BP Systolic 2024-03-09 00:00:00 140 mm[Hg] [facility] BMI (Body Mass Index) 2024-03-09 00:00:00 29.3 kg/m2 [facility] Body Weight 2024-03-09 00:00:00 3171.2 [oz_av] [facility] BP Diastolic 2023-12-07 00:00:00 65 mm[Hg] [facility] Height 2023-12-07 00:00:00 69 [in_i] [facility] BP Systolic 2023-12-07 00:00:00 130 mm[Hg] [facility] Body Weight 2023-12-07 00:00:00 3760 [oz_av] [facility] BMI (Body Mass Index) 2023-12-07 00:00:00 34.7 kg/m2 [facility] Body Weight 2023-10-20 00:00:00 3568 [oz_av] [facility] BP Systolic 2023-10-20 00:00:00 119 mm[Hg] [facility] BP Diastolic 2023-10-20 00:00:00 62 mm[Hg] [facility] BMI (Body Mass Index) 2023-10-20 00:00:00 32.9 kg/m2 [facility] Height 2023-10-20 00:00:00 69 [in_i] [facility] BMI (Body Mass Index) 2023-08-25 00:00:00 31.9 kg/m2 [facility] Body Weight 2023-08-25 00:00:00 3452.8 [oz_av] [facility] BP Systolic 2023-08-25 00:00:00 124 mm[Hg] [facility] Height 2023-08-25 00:00:00 69 [in_i] [facility] BP Diastolic 2023-08-25 00:00:00 67 mm[Hg] [facility] BMI (Body Mass Index) 2023-07-05 00:00:00 34.2 kg/m2 [facility] Body Weight 2023-07-05 00:00:00 3705.6 [oz_av] [facility] Height 2023-07-05 00:00:00 69 [in_i] [facility] BP Diastolic 2023-07-05 00:00:00 62 mm[Hg] [facility] BP Systolic 2023-07-05 00:00:00 117 mm[Hg] [facility] BP Systolic 2023-05-13 00:00:00 151 mm[Hg] [facility] BP Diastolic 2023-05-13 00:00:00 78 mm[Hg] [facility] BMI (Body Mass Index) 2023-05-13 00:00:00 35.8 kg/m2 [facility] Height 2023-05-13 00:00:00 69 [in_i] [facility] Body Weight 2023-05-13 00:00:00 3878.4 [oz_av] [facility] BP Systolic 2023-05-11 00:00:00 133 mm[Hg] [facility] BMI (Body Mass Index) 2023-05-11 00:00:00 34.8 kg/m2 [facility] Body Weight 2023-05-11 00:00:00 3769.6 [oz_av] [facility] Height 2023-05-11 00:00:00 69 [in_i] [facility] BP Diastolic 2023-05-11 00:00:00 76 mm[Hg] [facility] BP Diastolic 2023-03-16 00:00:00 66 mm[Hg] [facility] BP Systolic 2023-03-16 00:00:00 126 mm[Hg] [facility] Body Weight 2023-03-16 00:00:00 3872 [oz_av] [facility] BMI (Body Mass Index) 2023-03-16 00:00:00 35.7 kg/m2 [facility] Height 2023-03-16 00:00:00 69 [in_i] [facility] Body Weight 2023-03-08 00:00:00 3923.2 [oz_av] [facility] BP Diastolic 2023-03-08 00:00:00 72 mm[Hg] [facility] BMI (Body Mass Index) 2023-03-08 00:00:00 36.2 kg/m2 [facility] BP Systolic 2023-03-08 00:00:00 125 mm[Hg] [facility] Height 2023-03-08 00:00:00 69 [in_i] [facility] Height 2023-02-11 00:00:00 69 [in_i] [facility] BP Systolic 2023-02-11 00:00:00 140 mm[Hg] [facility] BP Diastolic 2023-02-11 00:00:00 79 mm[Hg] [facility] BMI (Body Mass Index) 2023-02-11 00:00:00 36.9 kg/m2 [facility] Body Weight 2023-02-11 00:00:00 3996.8 [oz_av] [facility] BP Systolic 2023-02-02 00:00:00 153 mm[Hg] [facility] Height 2023-02-02 00:00:00 69 [in_i] [facility] BMI (Body Mass Index) 2023-02-02 00:00:00 37.4 kg/m2 [facility] BP Diastolic 2023-02-02 00:00:00 83 mm[Hg] [facility] Body Weight 2023-02-02 00:00:00 4048 [oz_av] [facility] Body Weight 2023-01-28 00:00:00 4057.6 [oz_av] [facility] BP Diastolic 2023-01-28 00:00:00 84 mm[Hg] [facility] BP Systolic 2023-01-28 00:00:00 145 mm[Hg] [facility] height 2021-01-22 15:30:00 69 [in_i] [facility] weight 2021-01-22 15:30:00 257.1 [lb_av] Co [facility] temperature 2021-01-22 15:30:00 98.2 [degF] Com [facility] bmi 2021-01-22 15:30:00 37.96 kg/m2 Comm on [facility] oximetry 2021-01-22 15:30:00 94 % [facility] respiratory rate 2021-01-22 15:30:00 17 /min [facility] blood pressure systolic 2021-01-22 15:30:00 134 mm[Hg] [facility] blood pressure diastolic 2021-01-22 15:30:00 74 mm[Hg] [facility] height 2020-12-19 13:30:00 69 [in_i] [facility] weight 2020-12-19 13:30:00 255 [lb_av] Comm on [facility] temperature 2020-12-19 13:30:00 97.6 [degF] Com mon [facility] bmi 2020-12-19 13:30:00 37.65 kg/m2 Comm on [facility] oximetry 2020-12-19 13:30:00 99 % [facility] blood pressure systolic 2020-12-19 13:30:00 140 mm[Hg] [facility] blood pressure diastolic 2020-12-19 13:30:00 68 mm[Hg] [facility] height 2020-10-17 14:30:00 69 [in_i] [facility] weight 2020-10-17 14:30:00 257.9 [lb_av] Co [facility] temperature 2020-10-17 14:30:00 98.1 [degF] Com mon [facility] bmi 2020-10-17 14:30:00 38.08 kg/m2 Comm on [facility] oximetry 2020-10-17 14:30:00 94 % [facility] respiratory rate 2020-10-17 14:30:00 17 /min [facility] blood pressure systolic 2020-10-17 14:30:00 138 mm[Hg] [facility] blood pressure diastolic 2020-10-17 14:30:00 77 mm[Hg] [facility] height 2020-07-31 13:30:00 69 [in_i] [facility]mo [facility] weight 2020-07-31 13:30:00 256.2 [lb_av] Co [facility] temperature 2020-07-31 13:30:00 98.2 [degF] Com mon [facility] bmi 2020-07-31 13:30:00 37.83 kg/m2 Comm on [facility] oximetry 2020-07-31 13:30:00 96 % [facility] blood pressure systolic 2020-07-31 13:30:00 147 mm[Hg] [facility] blood pressure diastolic 2020-07-31 13:30:00 78 mm[Hg] [facility] height 2020-07-15 14:20:00 69 [in_i] [facility] weight 2020-07-15 14:20:00 253.5 [lb_av] Co [facility] temperature 2020-07-15 14:20:00 97.9 [degF] Com [facility] bmi 2020-07-15 14:20:00 37.43 kg/m2 Comm on [facility] oximetry 2020-07-15 14:20:00 95 % [facility] respiratory rate 2020-07-15 14:20:00 18 /min [facility] blood pressure systolic 2020-07-15 14:20:00 135 mm[Hg] Common [facility] blood pressure diastolic 2020-07-15 14:20:00 76 mm[Hg] [facility] height 2020-06-13 10:00:00 69 [in_i] [facility] weight 2020-06-13 10:00:00 255.2 [lb_av] Co [facility] temperature 2020-06-13 10:00:00 98.4 [degF] Com [facility] bmi 2020-06-13 10:00:00 37.68 kg/m2 Comm on [facility] oximetry 2020-06-13 10:00:00 94 % Com[facility] blood pressure systolic 2020-06-13 10:00:00 128 mm[Hg] Common [facility] blood pressure diastolic 2020-06-13 10:00:00 69 mm[Hg] [facility] Systolic blood pressure 2020-02-21 14:50:00 130 mm[Hg] [facility] Diastolic blood pressure 2020-02-21 14:50:00 84 mm[Hg] [facility] Heart rate 2020-02-21 14:50:00 87 /min [facility] Body weight 2020-02-21 14:50:00 116.348 kg [facility] BMI 2020-02-21 14:50:00 37.88 kg/m2 [facility] Oxygen saturation in Arterial blood by Pulse oximetry 2020-02-21 14:50:00 97 /min [facility] Systolic blood pressure 2020-02-21 14:50:00 130 mm[Hg] [facility] Diastolic blood pressure 2020-02-21 14:50:00 84 mm[Hg] [facility] Heart rate 2020-02-21 14:50:00 87 [facility] 2020-02-21 14:50:00 116.348 kg [facility] BMI 2020-02-21 14:50:00 37.88 kg/m2 [facility] Oxygen saturation in Arterial blood by Pulse oximetry 2020-02-21 14:50:00 97 /min [facility] Procedures Procedure Date / Time Performed Performing Clinician Source electrocardiogram, routine ECG, 12 leads min 2024-07-13 00:00:00 [facility] [place], liver 2024-07-13 00:00:00 [facility] US, thyroid 2024-05-24 00:00:00 [facility] XR, lumbosacral spine, 2 or 3 view 2024-03-09 00:00:00 [facility] Coronary Artery Bypass with Autogenous Graft, Three Grafts 2023-06-12 00:00:00 [facility] [id number] 2023-06-11 00:00:00 [facility]01 [facility] [id number] 2023-06-11 00:00:00 [facility]01 [facility] [id number] 2023-06-11 00:00:00 [facility]01 [facility] [id number] 2023-06-11 00:00:00 [facility]01 [facility] [id number] 2023-06-11 00:00:00 [facility]01 [facility] [id number] 2023-06-11 00:00:00 [facility]01 [facility] [id number] 2023-06-11 00:00:00 [facility]01 [facility] [id number] 2023-06-11 00:00:00 [facility]01 [facility] [id number] 2023-06-11 00:00:00 [facility]01 [facility] [id number] 2023-06-11 00:00:00 [facility]01 [facility] [id number] 2023-06-11 00:00:00 [facility]01 [facility] [id number] 2023-06-11 00:00:00 [facility]01 [facility] [id number] 2023-06-01 00:00:00 [facility] [id number] 2023-06-01 00:00:00 [facility] US, liver 2023-03-16 00:00:00 [facility] CT, abdomen + pelvis, w/wo contrast 2023-03-08 00:00:00 [facility] CONSENT/REFUSAL FOR DIAGNOSIS AND TREATMENT 2020-02-21 14:26:32 Doctor Unassigned, [facility] Appendectomy [facility] Encounters Start Date/Time End Date/Time Encounter Type Admission Type Attending Clinicians Care Facility Care Department Encounter ID Source 2023-05-05 15:27:00 Outpatient [facility], [facility] [id number] [facility] 2021-04-23 14:15:59 Outpatient [facility] [id number] [facility] 2021-04-23 13:59:01 Outpatient [facility] [id number] [facility] 2021-04-23 12:21:45 Outpatient [facility], [facility] [id number] [facility] 2021-04-23 11:45:21 Outpatient [facility], [facility] [id number] [facility] 2024-07-13 00:00:00 2024-07-13 00:00:00 Nemo Sierra APRN, MSN, [facility]: [address] [place] [address] , Ph. [facility] [id number] [facility] 2024-06-06 00:00:00 2024-06-06 00:00:00 Nemo Sirera APRN, MSN, RN AMBULATORY-BC: [address] [place] [address] , Ph. [facility] [id number] [facility] 2024-05-24 00:00:00 2024-05-24 00:00:00 Nemo Sierra APRN, MSN, [facility]: [address] [place] [address] , Ph. [facility] [id number] [facility] 2024-03-09 00:00:00 2024-03-09 00:00:00 Nemo Sierra APRN, MSN, [facility]: [address] [place] [address], [address] [address] , Ph. [facility] [id number] [facility] 2023-12-07 00:00:00 2023-12-07 00:00:00 Nemo Sierra APRN, MSN, [facility]: [address] [place] [address], [address] [place] [phone] , Ph. [facility] 0910 [facility] 2023-10-20 00:00:00 2023-10-20 00:00:00 Nemo Sierra APRN, MSN, [facility]: [address] [facility], [address] [place] [address] , Ph. [facility] [id number] [facility] 2023-08-25 00:00:00 2023-08-25 00:00:00 Nemo Sierra APRN, MSN, [facility]-: [address] [place] [address], [address] [place] [address] , Ph. [facility] [id number] [facility] 2023-07-05 00:00:00 2023-07-05 00:00:00 Nemo Sierra APRN, MSN, [facility]: [address] [place] [address], [address] [address] , Ph. [facility] [id number] [facility] 2023-06-25 00:00:00 2023-06-25 00:00:00 Outpatient [facility] [id number] [facility] 2023-05-31 11:59:00 2023-06-22 14:57:00 Inpatient Bladimir Campbell [facility] [id number] 62 [facility] 2023-06-01 00:00:00 2023-06-01 00:00:00 Outpatient [facility] [id number] [facility] 2023-05-13 00:00:00 2023-05-13 00:00:00 Nemo Sierra APRN, MSN, [facility]-: [address] [place] [address], [address] [place] [address] , Ph. [facility] [id number] [facility] 2023-05-11 00:00:00 2023-05-11 00:00:00 Nemo Sierra APRN, MSN, [facility]: [address] [place] [address], [address] [place] [phone] , Ph. [facility] [id number] [facility] 2023-04-22 10:00:00 2023-04-22 10:00:00 [facility] [id number] [facility] 2023-04-03 00:00:00 2023-04-03 00:00:00 Outpatient [facility] [id number] [facility] 2023-03-16 00:00:00 2023-03-16 00:00:00 Outpatient [facility] [id number] [facility] 2023-03-16 00:00:00 2023-03-16 00:00:00 Nemo Sierra APRN, MSN, [facility]: [address] [place] [address], [address] [place] [address] , Ph. [facility] [id number] [facility] 2023-03-08 00:00:00 2023-03-08 00:00:00 Outpatient [facility] [id number] [facility] 2023-03-08 00:00:00 2023-03-08 00:00:00 Nemo Sierra APRN, MSN, [facility]: [address] [place] [address], [address] [place] [phone] , Ph. [facility] [id number] [facility] 2023-03-06 21:16:00 2023-03-07 16:08:00 Inpatient MERCEDES YADAV [facility] [id number] [facility] 2023-02-11 00:00:00 2023-02-11 00:00:00 Outpatient L[facility] [id number] [facility] 2023-02-11 00:00:00 2023-02-11 00:00:00 Nemo Sierra APRN, MSN, [facility]: [address] [place] [address], [address] [address] , Ph. [facility] [id number] [facility] 2023-02-02 00:00:00 2023-02-02 00:00:00 Nemo Sierra APRN, MSN, [facility]: [address] [place] [address], [address] [address] , Ph. [facility] [id number] [facility] 2023-01-28 00:00:00 2023-01-28 00:00:00 Outpatient [facility] [id number] [facility] 2023-01-28 00:00:00 2023-01-28 00:00:00 Outpatient [facility] [id number] [facility] 2023-01-28 00:00:00 2023-01-28 00:00:00 Nemo Sierra APRN, MSN, [facility]: [address] [place] [address], [address] [address] , Ph. [facility] [id number] [facility] 2023-01-27 00:00:00 2023-01-27 00:00:00 Outpatient CHRETIEN_F [facility] [id number] [facility] 2021-06-11 00:00:00 2021-06-11 00:00:00 (TEL) STLMLC STLMLC [id number] [facility] 2021-03-24 00:00:00 2021-03-24 00:00:00 (TEL) STLMLC STLMLC [id number] [facility] 2021-03-18 00:00:00 2021-03-18 00:00:00 Patient Secure Msg Doctor Unassigned, [facility] [id number] [facility] 2021-03-11 00:00:00 2021-03-11 00:00:00 (TEL) STLMLC STLMLC [id number] [facility] 2021-03-06 00:00:00 2021-03-06 00:00:00 (TEL) STLMLC STLMLC [id number] [facility] 2021-02-14 00:00:00 2021-02-14 00:00:00 (COVID Inj) COVID Injection STLMLC STLMLC [id number] [facility] 2021-01-22 00:00:00 2021-01-22 00:00:00 OFFICE VISIT ESTAB PT LEVEL 4 STLMLC STLMLC [id number] [facility] 2021-01-17 00:00:00 2021-01-17 00:00:00 (WEB) STLMLC STLMLC [id number] [facility] 2021-01-15 00:00:00 2021-01-15 00:00:00 (TEL) STLMLC STLMLC [id number] [facility] 2021-01-06 00:00:00 2021-01-06 00:00:00 (WEB) STLMLC STLMLC [id number] [facility] 2020-12-19 00:00:00 2020-12-19 00:00:00 OFFICE VISIT ESTAB PT LEVEL 2 STLMLC STLMLC [id number] [facility] 2020-11-26 00:00:00 2020-11-26 00:00:00 (TEL) STLMLC STLMLC [id number] [facility] 2020-11-07 00:00:00 2020-11-07 00:00:00 (WEB) STLMLC STLMLC [id number] [facility] 2020-10-25 00:00:00 2020-10-25 00:00:00 (WEB) STLMLC STLMLC [id number] [facility] 2020-10-17 00:00:00 2020-10-17 00:00:00 PREV VISIT EST AGE 40-64 STLMLC STLMLC [id number] [facility] 2020-07-31 00:00:00 2020-07-31 00:00:00 (PROC) Procedure STLMLC STLMLC [id number] [facility] 2020-07-16 00:00:00 2020-07-16 00:00:00 (WEB) STLMLC STLMLC [id number] [facility] 2020-07-15 00:00:00 2020-07-15 00:00:00 OFFICE VISIT ESTAB PT LEVEL 4 STLMLC STLMLC [id number] [facility] 2020-06-13 00:00:00 2020-06-13 00:00:00 OFFICE VISIT ESTAB PT LEVEL 5 STLMLC STLMLC [id number] [facility] 2020-06-03 00:00:00 2020-06-03 00:00:00 Patient Outreach Neil Frias [facility] [id number] [id number] [id number] [facility] 2020-05-09 00:00:00 2020-05-09 00:00:00 Outpatient STLMLC STLMLC [id number] [facility] 2020-04-29 00:00:00 2020-04-29 00:00:00 Outpatient STLMLC STLMLC [id number] [facility] 2020-04-26 00:00:00 2020-04-26 00:00:00 Outpatient STLMLC STLMLC [id number] [facility] 2020-04-23 00:00:00 2020-04-23 00:00:00 Outpatient STLMLC STLMLC [id number] [facility] 2020-04-22 15:00:00 2020-04-22 15:00:00 Outpatient TK [facility] [id number] [facility] 2020-04-19 00:00:00 2020-04-19 00:00:00 Outpatient STLMLC STLMLC [id number] [facility] 2020-04-18 00:00:00 2020-04-18 00:00:00 Outpatient STLMLC STLMLC [id number] [facility] 2020-04-16 00:00:00 2020-04-16 00:00:00 Outpatient STLMLC STLMLC [id number] [facility] 2020-02-21 08:27:35 2020-02-21 08:59:59 [facility] [id number] [id number] 4.2.7.2.686 [id number] 2020-02-21 08:27:35 2020-02-21 08:59:59 [facility] [id number] [id number] 4.2.7.2.686 [id number] [facility] 2020-02-21 08:40:00 2020-02-21 08:40:00 [id number] 2020-02-21 00:00:00 2020-02-21 00:00:00 Orders Only Doctor Unassigned, [facility] [id number] [id number] [id number] [id number] [facility] 2020-02-19 00:00:00 2020-02-19 00:00:00 Outpatient STLMLC STLMLC [id number] [facility] 2020-02-19 00:00:00 2020-02-19 00:00:00 Outpatient STLMLC STLMLC [id number] [facility] 2020-02-15 00:00:00 2020-02-15 00:00:00 Outpatient STLMLC STLMLC [id number] [facility] 2020-01-23 00:00:00 2020-01-23 00:00:00 Outpatient STLMLC STLMLC [id number] [facility] 2020-01-15 00:00:00 2020-01-15 00:00:00 Outpatient STLMLC STLMLC [id number] [facility] 2019-12-26 00:00:00 2019-12-26 00:00:00 Outpatient STLMLC STLMLC [id number] [facility] 2019-12-26 00:00:00 2019-12-26 00:00:00 Outpatient STLMLC STLMLC [id number] [facility] 2019-12-15 00:00:00 2019-12-15 00:00:00 Outpatient STLMLC STLMLC [id number] [facility] 2019-12-08 13:30:00 2019-12-08 13:30:00 [facility] [id number] [facility] Results Test Description Test Time Test Comments Results Result Co mments Source - XR CHEST 1 [id number] 11:33:00 [facility] 1955 Sex: M FAX: Bladimir Morse [phone] [place]: St: ADM FAX: Johnna Monaco Phy [phone] FAX: Talat Salmeron MD [phone] Name: MINDY CARTER [facility] [place] : 1955 Age/S: 67/M [address] [place] [address] Unit #: [id number] Loc: [facility] [place] [address] Phys: Johnna Pablo Physic Acct: [id number] Date: Status: ADM IN PHONE #: [phone] Exam Date: 06/22/2023 1038 FAX #: [phone] Reason: S/P CABG, R/O EFFUSION EXAMS: CPT CODE: [id number] XR CHEST 1 V [id number] EXAM: Chest x-ray, 1 view Dictation location: E5 COMPARISON: Chest x-ray on 06/21/2023 INDICATION: S/P CABG, R/O EFFUSION DISCUSSION: Partial consolidation is seen at the mid to lower left lung and right lung base, similar or slightly improved. At least small bilateral pleural effusions are noted. No pneumothorax is seen. Moderate cardiac silhouette enlargement appears similar; prior median sternotomy is again noted. Interstitial or peribronchial opacity appears slightly improved. No pneumothorax is seen. No acute bony abnormalities are identified. IMPRESSION: 1. Previous CABG. There is unchanged cardiac silhouette enlargement, suggestive of CHF. 2. Airspace disease in the mid to lower left lung and right lung base is either due to atelectasis, pneumonia, or a combination of these, and is similar or slightly improved. Interstitial or peribronchial opacity has improved, suggestive of improving edema. 3. At least small bilateral pleural effusions are noted, similar or slightly improved. at 1133 Reported and signed by: Dickson Petersen M.D. CC: Bladimir Morse DO; Johnna Pablo; Talat Lord MD Technologist: RT Eusebio(Penelope) Trnscrd Date/Time/By: 06/22/2023 (1130) : By: [email or web address] Orig Print D/T: S: 06/22/2023 (8145) PAGE 1 Signed ReportGLUCOSE [id number] 07:42:00* Test Item Value Reference Range Interpretation Comme nts GLUCOSE BEDSIDE (test code = GLUBED) 165 MG/DL 70-110 H Performed by cer raul waxer operator at [facility] BASIC METABOLIC [id number] 06:58:00* Test Item Value Reference Range Interpretation Comme nts SODIUM (test code = NA) 136 mEq/L 134-147 N POTASSIUM (test code = K) 3.7 mEq/L 3.4-5.0 N CHLORIDE (test code = CL) 97 mEq/L 100-108 L CARBON DIOXIDE (test code = CO2) 31 mEq/l 21-33 N ANION GAP (test code = GAP) 11 0-20 N GLUCOSE (test code = GLU) 212 mg/dL 77-141 H BLOOD UREA NITROGEN (test code = BUN) 51 mg/dL 7-25 H GLOMERULAR FILTRATION RATE (test code = GFR) 54.8 80-90 L The Glomerular Filtration Rate is a calculated parameterbased on serum Creatinine, patient age and sex. GFR valuesless than 60 mL/min/1.73 square meters are indicative ofChronic Kidney Disease. Values less than 15 mL/min/1.73square meters indicate Kidney failure. The calculation forGFR is based on the CKD-EPI (2020) calculation. This formulais race indifferent and is the recommended formula for GFRby the National Kidney Foundation for Adults.The GFR will not calculate if the sex is unknown or if thepatient's age is <18 years. CREATININE (test code = CREAT) 1.4 mg/dL 0.6-1.3 H CALCIUM (test code = CA) 7.6 mg/dL 8.0-10.5 L [id number] 06:58:00* Test Item Value Reference Range Interpretation Comme nts MAGNESIUM (test code = MAG) 2.36 mg/dL 1.6-2.6 N CBC W/AUTO [id number] 04:15:00* Test Item Value Reference Range Interpretation Comme nts WHITE BLOOD CELL (test code = WBC) 8.7 x10 3/uL 4.5-11.0 N RED BLOOD CELL (test code = RBC) 3.30 x10 6/uL 4.00-5.60 L HEMOGLOBIN (test code = HGB) 9.8 g/dL 12.5-16.9 L HEMATOCRIT (test code = HCT) 31.6 % 37.5-50.7 L MEAN CELL VOLUME (test code = MCV) 95.8 fL 81.0-99.0 N MEAN CELL HGB (test code = MCH) 29.7 pg 27.0-33.0 N MEAN CELL HGB CONCETRATION (test code = MCHC) 31.0 g/dL 33.0-37.0 L RED CELL DISTRIBUTION WIDTH CV (test code = RDW) 14.7 % 11.5-14.5 H RED CELL DISTRIBUTION WIDTH SD (test code = RDW-SD) 50.4 fL 37.0-54.0 N PLATELET COUNT (test code = PLT) 188 x10 3/uL 150-400 N MEAN PLATELET VOLUME (test c ode = MPV) 11.3 fL 7.0-9.0 H NEUTROPHIL % (test code = NT%) 77.9 % 56.0-77.0 H IMMATURE GRANULOCYTE % (test code = IG%) 1.5 % 0.0-2.0 N LYMPHOCYTE % (test code = LY%) 5.3 % 14.0-32.0 L MONOCYTE % (test code = MO%) 12.5 % 4.8-9.0 H EOSINOPHIL % (test code = EO%) 2.1 % 0.3-3.7 N BASOPHIL % (test code = BA%) 0.7 % 0.0-2.0 N NUCLEATED RBC % (test code = NRBC%) 0.0 % 0-0 N NEUTROPHIL # (test code = NT#) 6.74 x10 3/uL 2.0-7.6 N IMMATURE GRANULOCYTE # (test code = IG#) 0.13 x10 3/uL 0.00-0.03 H LYMPHOCYTE # (test code = LY#) 0.46 x10 3/uL 1.0-3.8 L MONOCYTE # (test code = MO#) 1.08 x10 3/uL 0.1-0.8 H EOSINOPHIL # (test code = EO#) 0.18 x10 3/uL 0.0-0.2 N BASOPHIL # (test code = BA#) 0.06 x10 3/uL 0.0-0.2 N NUCLEATED RBC # (test code = NRBC#) 0.00 x10 3/uL 0.0-0.1 N GLUCOSE [id number] 20:34:00* Test Item Value Reference Range Interpretation Comme [facility] GLUCOSE BEDSIDE (test code = GLUBED) 222 MG/DL 70-110 H Performed by cer tified waxer operator at [facility] GLUCOSE [id number] 17:14:00* Test Item Value Reference Range Interpretation Comme [facility] GLUCOSE BEDSIDE (test code = GLUBED) 149 MG/DL 70-110 H Performed by cer tified waxer operator at [facility] GLUCOSE [id number] 12:15:00* Test Item Value Reference Range Interpretation Comme [facility] GLUCOSE BEDSIDE (test code = GLUBED) 215 MG/DL 70-110 H Performed by cer tified waxer operator at [facility] - XR CHEST 1 [id number] 10:12:00 [facility] 1955 Sex: M FAX: Nathaniel Shirley MD [phone] [place]: St: ADM FAX: Kumar Salas [phone] FAX: Talat Salmeron MD [phone] Name: MINDY CARTER [facility] : 1955 Age/S: 67/M [address] [place] [address] Unit #: [id number] Loc: [address] [address] Phys: Nathaniel Martel MD Acct: [id number] Dis Date: Status: ADM IN PHONE #: [phone] Exam Date: 06/21/2023 0807 FAX #: [phone] Reason:S/P CABG, R/O EFFUSION EXAMS: CPT CODE: [id number] XR CHEST 1 V [id number] Dictation location: C4. CHEST, FRONTAL VIEW HISTORY: S/P CABG, R/O EFFUSION FINDINGS: Since 06/20/23, cardiomegaly is noted withpulmonary edema and bilateral pleural effusions. Basilar opacities are unchanged. Sternotomy wires. IMPRESSION: No significant change in the cardiomegaly, pulmonary edema and bilateral pleural effusions. at 1012 Reported and signed by: Elio Pimentel M.D. CC: Nathaniel Martel MD; Kumar Garcia MD; Talat Lord MD Technologist: RT Angie(R) Trnscrd Date/Time/By: 06/21/2023 (1012) : By: [email or web address] Orig Print D/T: S: 06/21/2023 (0684) PAGE 1 Signed ReportGLUCOSE [id number] 07:55:00* Test Item Value Reference Range Interpretation Comme nts GLUCOSE BEDSIDE (test code = GLUBED) 145 MG/DL 70-110 H Performed by cer tified waxer operator at [facility] BASIC METABOLIC [id number] 05:54:00* Test Item Value Reference Range Interpretation Comme nts SODIUM (test code = NA) 136 mEq/L 134-147 N POTASSIUM (test code = K) 3.3 mEq/L 3.4-5.0 L CHLORIDE (test code = CL) 96 mEq/L 100-108 L CARBON DIOXIDE (test code = CO2) 34 mEq/l 21-33 H ANION GAP (test code = GAP) 9 0-20 N GLUCOSE (test code = GLU) 137 mg/dL 77-141 BLOOD UREA NITROGEN (test code = BUN) 60 mg/dL 7-25 H GLOMERULAR FILTRATION RATE (test code = GFR) 54.8 80-90 L The Glomerular Filtration Rate is a calculated parameterbased on serum Creatinine, patient age and sex. GFR valuesless than 60 mL/min/1.73 square meters are indicative ofChronic Kidney Disease. Values less than 15 mL/min/1.73square meters indicate Kidney failure. The calculation forGFR is based on the CKD-EPI (2020) calculation. This formulais race indifferent and is the recommended formula for GFRby the National Kidney Foundation for Adults.The GFR will not calculate if the sex is unknown or if thepatient's age is <18 years. CREATININE (test code = CREAT) 1.4 mg/dL 0.6-1.3 H CALCIUM (test code = CA) 7.6 mg/dL 8.0-10.5 L [id number] 05:54:00* Test Item Value Reference Range Interpretation Comme nts MAGNESIUM (test code = MAG) 2.51 mg/dL 1.6-2.6 N CBC W/AUTO [id number] 05:21:00* Test Item Value Reference Range Interpretation Comme nts WHITE BLOOD CELL (test code = WBC) 9.3 x10 3/uL 4.5-11.0 N RED BLOOD CELL (test code = RBC) 3.29 x10 6/uL 4.00-5.60 L HEMOGLOBIN (test code = HGB) 9.8 g/dL 12.5-16.9 L HEMATOCRIT (test code = HCT) 30.8 % 37.5-50.7 L MEAN CELL VOLUME (test code = MCV) 93.6 fL 81.0-99.0 N MEAN CELL HGB (test code = MCH) 29.8 pg 27.0-33.0 N MEAN CELL HGB CONCETRATION (test code = MCHC) 31.8 g/dL 33.0-37.0 L RED CELL DISTRIBUTION WIDTH CV (test code = RDW) 14.8 % 11.5-14.5 H RED CELL DISTRIBUTION WIDTH SD (test code = RDW-SD) 49.4 fL 37.0-54.0 N PLATELET COUNT (test code = PLT) 193 x10 3/uL 150-400 N MEAN PLATELET VOLUME (test c ode = MPV) 11.4 fL 7.0-9.0 H NEUTROPHIL % (test code = NT%) 75.4 % 56.0-77.0 N IMMATURE GRANULOCYTE % (test code = IG%) 2.3 % 0.0-2.0 H LYMPHOCYTE % (test code = LY%) 7.3 % 14.0-32.0 L MONOCYTE % (test code = MO%) 11.6 % 4.8-9.0 H EOSINOPHIL % (test code = EO%) 2.8 % 0.3-3.7 N BASOPHIL % (test code = BA%) 0.6 % 0.0-2.0 N NUCLEATED RBC % (test code = NRBC%) 0.0 % 0-0 N NEUTROPHIL # (test code = NT#) 7.03 x10 3/uL 2.0-7.6 N IMMATURE GRANULOCYTE # (test code = IG#) 0.21 x10 3/uL 0.00-0.03 H LYMPHOCYTE # (test code = LY#) 0.68 x10 3/uL 1.0-3.8 L MONOCYTE # (test code = MO#) 1.08 x10 3/uL 0.1-0.8 H EOSINOPHIL # (test code = EO#) 0.26 x10 3/uL 0.0-0.2 H BASOPHIL # (test code = BA#) 0.06 x10 3/uL 0.0-0.2 N NUCLEATED RBC # (test code = NRBC#) 0.00 x10 3/uL 0.0-0.1 N GLUCOSE [id number] 19:52:00* Test Item Value Reference Range Interpretation Comme nts GLUCOSE BEDSIDE (test code = GLUBED) 208 MG/DL 70-110 H Performed by cer tified waxer operator at [facility] GLUCOSE [id number] 17:46:00* Test Item Value Reference Range Interpretation Comme nts GLUCOSE BEDSIDE (test code = GLUBED) 198 MG/DL 70-110 H Performed by cer tified waxer operator at [facility] GLUCOSE [id number] 13:38:00* Test Item Value Reference Range Interpretation Comme nts GLUCOSE BEDSIDE (test code = GLUBED) 218 MG/DL 70-110 H Performed by cer tified waxer operator at [facility] - XR CHEST 1 [id number] 08:37:00 [facility] 1955 Sex: MFAX: Nathaniel Shirley MD [phone] [place]: St: [facility] FAX: Kumar Salas [phone] FAX: Talat Salmeron MD [phone] Name: MINDY CARTER [facility] : 1955 Age/S: 67/M [address] [place] [address] Unit #: [id number] Loc: G.[id number] [place] [address] Phys: Nathaniel Martel MD Acct: [id number] Date: Status: ADM IN PHONE #: [phone] Exam Date: 06/20/2023 0744 FAX #: [phone] Reason: R/O PLEURAL EFFUSION EXAMS: CPT CODE: [id number] XR CHEST 1 V 80021 CHEST 1 VIEW CLINICAL INFORMATION: R/O PLEURAL EFFUSION COMPARISON: June 19, 2023 FINDINGS: The lung volumes are decreased. Small Bilateral layering pleural effusions and lower lobe alveolar opacities remain without significantinterval change. No appreciable pneumothorax. The cardiac silhouette is moderately enlarged. Mediansternotomy wires are present. IMPRESSION: No significant change in mild pulmonary edema changes with small bilateral effusions. Superimposed infectious process should be excluded on coronal bases. LOCATION: C3 at 0837 Reported and signed by: Jessenia Mireles M.D. CC: Nathaniel Martel MD; Kumar Garcia MD; Suzy Lord MD Technologist: Carli Baker, RT(R); Rylee Muller RT(R) Trnscrd Date/Time/By: 06/20/2023 (0837) : By: [email or web address] Orig Print D/T: S: 06/20/2023 (3949) PAGE 1 Signed ReportBASIC METABOLIC [id number] 04:13:00* Test Item Value Reference Range Interpretation Comme nts SODIUM (test code = NA) 134 mEq/L 134-147 N POTASSIUM (test code = K) 3.6 mEq/L 3.4-5.0 N CHLORIDE (test code = CL) 96 mEq/L 100-108 L CARBON DIOXIDE (test code = CO2) 31 mEq/l 21-33 N ANION GAP (test code = GAP) 11 0-20 N GLUCOSE (test code = GLU) 183 mg/dL 77-141 H BLOOD UREA NITROGEN (test code = BUN) 65 mg/dL 7-25 H GLOMERULAR FILTRATION RATE (test code = GFR) 46.6 80-90 L The Glomerular Filtration Rate is a calculated parameterbased on serum Creatinine, patient age and sex. GFR valuesless than 60 mL/min/1.73 square meters are indicative ofChronic Kidney Disease. Values less than 15 mL/min/1.73square meters indicate Kidney failure. The calculation forGFR is based on the CKD-EPI (202) calculation. This formulais race indifferent and is the recommended formula for GFRby the National Kidney Foundation for Adults.The GFR will not calculate if the sex is unknown or if thepatient's age is <18 years. CREATININE (test code = CREAT) 1.6 mg/dL 0.6-1.3 H CALCIUM (test code = CA) 8.0 mg/dL 8.0-10.5 N [id number] 04:13:00* Test Item Value Reference Range Interpretation Comme nts MAGNESIUM (test code = MAG) 2.42 mg/dL 1.6-2.6 N CBC W/AUTO [id number] 03:55:00* Test Item Value Reference Range Interpretation Comme nts WHITE BLOOD CELL (test code = WBC) 11.4 x10 3/uL 4.5-11.0 H RED BLOOD CELL (test code = RBC) 3.28 x10 6/uL 4.00-5.60 L HEMOGLOBIN (test code = HGB) 9.8 g/dL 12.5-16.9 L HEMATOCRIT (test code = HCT) 30.7 % 37.5-50.7 L MEAN CELL VOLUME (test code = MCV) 93.6 fL 81.0-99.0 N MEAN CELL HGB (test code = MCH) 29.9 pg 27.0-33.0 N MEAN CELL HGB CONCETRATION (test code = MCHC) 31.9 g/dL 33.0-37.0 L RED CELL DISTRIBUTION WIDTH CV (test code = RDW) 14.5 % 11.5-14.5 N RED CELL DISTRIBUTION WIDTH SD (test code = RDW-SD) 48.2 fL 37.0-54.0 N PLATELET COUNT (test code = PLT) 211 x10 3/uL 150-400 N MEAN PLATELET VOLUME (test c ode = MPV) 11.3 fL 7.0-9.0 H NEUTROPHIL % (test code = NT%) 77.7 % 56.0-77.0 H IMMATURE GRANULOCYTE % (test code = IG%) 3.1 % 0.0-2.0 H LYMPHOCYTE % (test code = LY%) 6.2 % 14.0-32.0 L MONOCYTE % (test code = MO%) 10.6 % 4.8-9.0 H EOSINOPHIL % (test code = EO%) 2.0 % 0.3-3.7 N BASOPHIL % (test code = BA%) 0.4 % 0.0-2.0 N NUCLEATED RBC % (test code = NRBC%) 0.0 % 0-0 N NEUTROPHIL # (test code = NT#) 8.83 x10 3/uL 2.0-7.6 H IMMATURE GRANULOCYTE # (test code = IG#) 0.35 x10 3/uL 0.00-0.03 H LYMPHOCYTE # (test code = LY#) 0.70 x10 3/uL 1.0-3.8 L MONOCYTE # (test code = MO#) 1.21 x10 3/uL 0.1-0.8 H EOSINOPHIL # (test code = EO#) 0.23 x10 3/uL 0.0-0.2 H BASOPHIL # (test code = BA#) 0.05 x10 3/uL 0.0-0.2 N NUCLEATED RBC # (test code = NRBC#) 0.00 x10 3/uL 0.0-0.1 N GLUCOSE [id number] 20:56:00* Test Item Value Reference Range Interpretation Comme nts GLUCOSE BEDSIDE (test code = GLUBED) 251 MG/DL 70-110 H Performed by cer tified waxer operator at [facility] GLUCOSE [id number] 17:46:00* Test Item Value Reference Range Interpretation Comme nts GLUCOSE BEDSIDE (test code = GLUBED) 132 MG/DL 70-110 H Performed by cer tified waxer operator at [facility] GLUCOSE [id number] 12:47:00* Test Item Value Reference Range Interpretation Comme nts GLUCOSE BEDSIDE (test code = GLUBED) 160 MG/DL 70-110 H Performed by cer tified waxer operator at [facility] - XR CHEST 1 [id number] 09:19:00 [facility] 1955 Sex: M FAX: Nathaniel Shirley MD [phone] [place]: St: ADM FAX: Talat Salmeron MD [phone] ------- Name: MINDY CARTER [facility] : 1955 Age/S: 67/M [address] [place] [address] Unit #: [id number] Loc: [facility] [place] [address] Phys: Nathaniel Martel MD Acct: [id number] Dis Date: Status: ADM IN PHONE #: [phone] Exam Date: 06/19/202343 FAX #: [phone] Reason: R/O PLEURAL EFFUSION EXAMS: CPT CODE: [id number] XR CHEST 1 V 52009 CHEST 1 VIEW CLINICAL INFORMATION: R/O PLEURAL EFFUSION COMPARISON: June 17, 2023 FINDINGS: Evaluation is limited by technique. The right lateral costophrenic angle is excluded from view. The lung volumes are decreased. Bilateral layering pleural effusions and lower lobe alveolar opacities remain. The cardiac silhouette is moderately enlarged. Median sternotomy wires are present. IMPRESSION: No significant change from the comparison study. Shallow inspiration with small pleural effusions and associated lower lobe airspace disease. LOCATION: B2 at 0919 Reported and signed by: John Bergeron M.D. CC: Nathaniel Martel MD; Talat Lord MD Technologist: Carli Baker RT(R); RT Justen(R) Trnscrd Date/Time/By: 06/19/2023 (918) : By: [email or web address] Orig Print D/T: S: 06/19/2023 (7320) PAGE 1 Signed ReportGLUCOSE [id number] 08:35:00* Test Item Value Reference Range Interpretation Comme nts GLUCOSE BEDSIDE (test code = GLUBED) 184 MG/DL 70-110 H Performed by cer tified waxer operator at [facility] CBC W/AUTO [id number] 07:24:00* Test Item Value Reference Range Interpretation Comme nts WHITE BLOOD CELL (test code = WBC) 11.7 x10 3/uL 4.5-11.0 H RED BLOOD CELL (test code = RBC) 3.26 x10 6/uL 4.00-5.60 L HEMOGLOBIN (test code = HGB) 9.9 g/dL 12.5-16.9 L HEMATOCRIT (test code = HCT) 30.4 % 37.5-50.7 L MEAN CELL VOLUME (test code = MCV) 93.3 fL 81.0-99.0 N MEAN CELL HGB (test code = MCH) 30.4 pg 27.0-33.0 N MEAN CELL HGB CONCETRATION (test code = MCHC) 32.6 g/dL 33.0-37.0 L RED CELL DISTRIBUTION WIDTH CV (test code = RDW) 14.4 % 11.5-14.5 N RED CELL DISTRIBUTION WIDTH SD (test code = RDW-SD) 48.2 fL 37.0-54.0 N PLATELET COUNT (test code = PLT) 206 x10 3/uL 150-400 N MEAN PLATELET VOLUME (test c ode = MPV) 11.8 fL 7.0-9.0 H NEUTROPHIL % (test code = NT%) 74.1 % 56.0-77.0 N IMMATURE GRANULOCYTE % (test code = IG%) 4.9 % 0.0-2.0 H LYMPHOCYTE % (test code = LY%) 6.4 % 14.0-32.0 L MONOCYTE % (test code = MO%) 11.7 % 4.8-9.0 H EOSINOPHIL % (test code = EO%) 2.4 % 0.3-3.7 N BASOPHIL % (test code = BA%) 0.5 % 0.0-2.0 N NUCLEATED RBC % (test code = NRBC%) 0.0 % 0-0 N NEUTROPHIL # (test code = NT#) 8.68 x10 3/uL 2.0-7.6 H IMMATURE GRANULOCYTE # (test code = IG#) 0.57 x10 3/uL 0.00-0.03 H LYMPHOCYTE # (test code = LY#) 0.75 x10 3/uL 1.0-3.8 L MONOCYTE # (test code = MO#) 1.37 x10 3/uL 0.1-0.8 H EOSINOPHIL # (test code = EO#) 0.28 x10 3/uL 0.0-0.2 H BASOPHIL # (test code = BA#) 0.06 x10 3/uL 0.0-0.2 N NUCLEATED RBC # (test code = NRBC#) 0.00 x10 3/uL 0.0-0.1 N MANUAL DIFF REQUIRED (test c ode = MDIFF) YES WBC [id number] 07:24:00* Test Item Value Reference Range Interpretation Comme nts BAND NEUTROPHIL (test code = BAND) 0.0 % 0.0-10.0 N ANISOCYTOSIS (test code = ANISO) 2+ PLATELET ESTIMATE (test code = PLTEST) Adequate THOUSAND ADEQUATE SEGMENTED NEUTROPHILS (test code = SEG) 85.3 % 37-69 H LYMPHOCYTE (test code = LYMPH) 4.6 % 23-55 L MONOCYTE (test code = MON) 8.3 % 0-10 N EOSINOPHIL (test code = EOS) 0.9 % 0.0-4.0 N MYELOCYTE (test code = MYELO) 0.9 % 0.0-0.0 H POLYCHROMASIA (test code = POLC) 2+ MICROCYTOSIS (test code = MICR) 2+ MACROCYTOSIS (test code = MACR) 2+ PLATELET MORPHOLOGY (test code = PLTMORPH) LARGE PLATELETS BASIC METABOLIC [id number] 06:44:00* Test Item Value Reference Range Interpretation Comme nts SODIUM (test code = NA) 132 mEq/L 134-147 L POTASSIUM (test code = K) 3.8 mEq/L 3.4-5.0 N CHLORIDE (test code = CL) 94 mEq/L 100-108 L CARBON DIOXIDE (test code = CO2) 30 mEq/l 21-33 N ANION GAP (test code = GAP) 12 0-20 N GLUCOSE (test code = GLU) 187 mg/dL 77-141 H BLOOD UREA NITROGEN (test code = BUN) 73 mg/dL 7-25 H GLOMERULAR FILTRATION RATE (test code = GFR) 43.4 80-90 L The Glomerular Filtration Rate is a calculated parameterbased on serum Creatinine, patient age and sex. GFR valuesless than 60 mL/min/1.73 square meters are indicative ofChronic Kidney Disease. Values less than 15 mL/min/1.73square meters indicate Kidney failure. The calculation forGFR is based on the CKD-EPI (2020) calculation. This formulais race indifferent and is the recommended formula for GFRby the National Kidney Foundation for Adults.The GFR will not calculate if the sex is unknown or if thepatient's age is <18 years. CREATININE (test code = CREAT) 1.7 mg/dL 0.6-1.3 H CALCIUM (test code = CA) 8.1 mg/dL 8.0-10.5 N [id number] 06:44:00* Test Item Value Reference Range Interpretation Comme nts MAGNESIUM (test code = MAG) 2.44 mg/dL 1.6-2.6 N GLUCOSE [id number] 19:53:00* Test Item Value Reference Range Interpretation Comme nts GLUCOSE BEDSIDE (test code = GLUBED) 225 MG/DL 70-110 H Performed by cer tified waxer operator at [facility] GLUCOSE [id number] 17:17:00* Test Item Value Reference Range Interpretation Comme nts GLUCOSE BEDSIDE (test code = GLUBED) 239 MG/DL 70-110 H Performed by cer tified waxer operator at [facility] GLUCOSE [id number] 11:39:00* Test Item Value Reference Range Interpretation Comme nts GLUCOSE BEDSIDE (test code = GLUBED) 249 MG/DL 70-110 H Performed by cer tified waxer operator at [facility] GLUCOSE [id number] 07:49:00* Test Item Value Reference Range Interpretation Comme nts GLUCOSE BEDSIDE (test code = GLUBED) 244 MG/DL 70-110 H Performed by cer raul waxer operator at [facility] BASIC METABOLIC [id number] 06:31:00* Test Item Value Reference Range Interpretation Comme nts SODIUM (test code = NA) 131 mEq/L 134-147 L POTASSIUM (test code = K) 3.6 mEq/L 3.4-5.0 N CHLORIDE (test code = CL) 95 mEq/L 100-108 L CARBON DIOXIDE (test code = CO2) 29 mEq/l 21-33 N ANION GAP (test code = GAP) 11 0-20 N GLUCOSE (test code = GLU) 275 mg/dL 77-141 H BLOOD UREA NITROGEN (test code = BUN) 80 mg/dL 7-25 H GLOMERULAR FILTRATION RATE (test code = GFR) 40.5 80-90 L The Glomerular Filtration Rate is a calculated parameterbased on serum Creatinine, patient age and sex. GFR valuesless than 60 mL/min/1.73 square meters are indicative ofChronic Kidney Disease. Values less than 15 mL/min/1.73square meters indicate Kidney failure. The calculation forGFR is based on the CKD-EPI (2020) calculation. This formulais race indifferent and is the recommended formula for GFRby the National Kidney Foundation for Adults.The GFR will not calculate if the sex is unknown or if thepatient's age is <18 years. CREATININE (test code = CREAT) 1.8 mg/dL 0.6-1.3 H CALCIUM (test code = CA) 7.9 mg/dL 8.0-10.5 L HEPATIC FUNCTION [id number] 06:31:00* Test Item Value Reference Range Interpretation Comme nts TOTAL PROTEIN (test code = PROT) 6.3 g/dL 6.4-8.2 L ALBUMIN (test code = ALB) 2.90 g/dL 3.4-5.0 L BILIRUBIN TOTAL (test code = BILT) 0.70 mg/dL 0.0-1.0 N BILIRUBIN DIRECT (test code = BILD) 0.30 MG/DL 0.1-0.3 N SGOT/AST (test code = AST) 57 IUnit/L 8-34 H SGPT/ALT (test code = ALT) 62 IUnit/L 10-49 H ALKALINE PHOSPHATASE TOTAL ( test code = ALKP) 208 IUnit/L 20-125 H BILIRUBIN INDIRECT (test cod e = BILIND) 0.40 MG/DL [id number] 06:31:00* Test Item Value Reference Range Interpretation Comme nts MAGNESIUM (test code = MAG) 2.46 mg/dL 1.6-2.6 N CBC W/AUTO [id number] 05:41:00* Test Item Value Reference Range Interpretation Comme nts WHITE BLOOD CELL (test code = WBC) 9.4 x10 3/uL 4.5-11.0 N RED BLOOD CELL (test code = RBC) 3.10 x10 6/uL 4.00-5.60 L HEMOGLOBIN (test code = HGB) 9.4 g/dL 12.5-16.9 L HEMATOCRIT (test code = HCT) 28.8 % 37.5-50.7 L MEAN CELL VOLUME (test code = MCV) 92.9 fL 81.0-99.0 N MEAN CELL HGB (test code = MCH) 30.3 pg 27.0-33.0 N MEAN CELL HGB CONCETRATION (test code = MCHC) 32.6 g/dL 33.0-37.0 L RED CELL DISTRIBUTION WIDTH CV (test code = RDW) 14.4 % 11.5-14.5 N RED CELL DISTRIBUTION WIDTH SD (test code = RDW-SD) 48.1 fL 37.0-54.0 N PLATELET COUNT (test code = PLT) 166 x10 3/uL 150-400 N MEAN PLATELET VOLUME (test c ode = MPV) 11.3 fL 7.0-9.0 H NEUTROPHIL % (test code = NT%) 73.8 % 56.0-77.0 N IMMATURE GRANULOCYTE % (test code = IG%) 4.0 % 0.0-2.0 H LYMPHOCYTE % (test code = LY%) 5.7 % 14.0-32.0 L MONOCYTE % (test code = MO%) 13.6 % 4.8-9.0 H EOSINOPHIL % (test code = EO%) 2.4 % 0.3-3.7 N BASOPHIL % (test code = BA%) 0.5 % 0.0-2.0 N NUCLEATED RBC % (test code = NRBC%) 0.0 % 0-0 N NEUTROPHIL # (test code = NT#) 6.93 x10 3/uL 2.0-7.6 N IMMATURE GRANULOCYTE # (test code = IG#) 0.38 x10 3/uL 0.00-0.03 H LYMPHOCYTE # (test code = LY#) 0.54 x10 3/uL 1.0-3.8 L MONOCYTE # (test code = MO#) 1.28 x10 3/uL 0.1-0.8 H EOSINOPHIL # (test code = EO#) 0.23 x10 3/uL 0.0-0.2 H BASOPHIL # (test code = BA#) 0.05 x10 3/uL 0.0-0.2 N NUCLEATED RBC # (test code = NRBC#) 0.00 x10 3/uL 0.0-0.1 N GLUCOSE [id number] 20:12:00* Test Item Value Reference Range Interpretation Comme nts GLUCOSE BEDSIDE (test code = GLUBED) 219 MG/DL 70-110 H Performed by cer tified waxer operator at [facility] GLUCOSE [id number] 17:43:00* Test Item Value Reference Range Interpretation Comme nts GLUCOSE BEDSIDE (test code = GLUBED) 230 MG/DL 70-110 H Performed by cer tified waxer operator at [facility] - DUP VEIN [id number] 15:08:00 [facility] 1955 Sex: M Name: MINDY CARTER [facility] : 1955 Age/S: 67 / M [address] [place], [place] [address] Unit #: [id number] Loc: [facility] [address] Phys: Johnna Pablo Acct: [id number] Dis Date: Status: ADM IN PHONE #: [phone] Exam Date: 06/17/2023 1454 FAX #: [phone] Reason: R/O DVT EXAMS: CPT CODE: [id number] DUP VEIN [place] [address] HISTORY: leg swelling Location Code: B2 COMMENT: Multiplanar grayscale, color flow and Doppler spectral imaging of the bilateral lower extremity was performed revealing patent deep venous system with no evidence of deep venous thrombosis of obstruction. There is normal augmentation of flow with compression of calf veins. IMPRESSION: 1. No evidence of deep venous thrombosis. at 1508 Reported and signed by: Erick Hogan M.D. CC: Johnna Pablo; Talat Lord MD Technologist: Kirsty Banegas RDMS(AB) Trnscb Date/Time: 06/17/2023 (1508) [email or web address] Orig Print D/T: S: 06/17/2023 (6050) Probe:PAGE 1 Signed Report GLUCOSE [id number] 12:15:00* Test Item Value Reference Range Interpretation Comme nts GLUCOSE BEDSIDE (test code = GLUBED) 305 MG/DL 70-110 H Performed by linda marcus at [facility] - XR CHEST 1 [id number] 08:25:00 [facility] 1955 Sex: M FAX: Nathaniel Shirley MD [phone] [place]: St: ADM FAX: Talat Salmeron MD [phone] ------- Name: MNIDY CARTER [facility] : 1955 Age/S: 67/M [address] [place] [address] Blvd Unit #: [id number] Loc: [facility] [place] [address] Phys: Nathaniel Martel MD Acct: [id number] Dis Date: Status: ADM IN PHONE #: [phone] Exam Date: 06/17/2023624 FAX #: [phone] Reason: Cardiac Surgery Post Op EXAMS: CPT CODE: [id number] XR CHEST 1 V 39838 STUDY: Chest radiograph HISTORY: Postop COMPARISON: 06/16/2023 TECHNIQUE: Frontal view of the chest. LOCATION: H19 FINDINGS: Poststernotomy changes are again noted. Right IJ vein catheter has been removed. The cardiac silhouette is stable in size. Pulmonary vascular con gestion and bibasilar atelectasis appear similar. Small pleural effusions are unchanged in size. There is no discernible pneumothorax. IMPRESSION: No significant interval change. at 0825 Reported and signed by: Orlando Baez M.D. CC: Nathaniel Martel MD; Talat Lord MD Technologist: RT Zaid(R) Trnscrd Date/Time/By: 06/17/2023 (824) : By: [email or web address] Orig Print D/T: S: 06/17/2023 (3900) PAGE 1 Signed ReportGLUCOSE [id number] 08:02:00* Test Item Value Reference Range Interpretation Comme nts GLUCOSE BEDSIDE (test code = GLUBED) 127 MG/DL 70-110 H Performed by cer katiuskaied waxer operator at [facility] GLUCOSE [id number] 07:05:00* Test Item Value Reference Range Interpretation Comme nts GLUCOSE BEDSIDE (test code = GLUBED) 131 MG/DL 70-110 H Performed by linda carter waxer operator at [facility] POC ARTERIAL BLOOD [id number] 04:34:00* Test Item Value Reference Range Interpretation Comme nts POC ARTERIAL BLOOD GAS PH (t est code = POCPHA) 7.450 7.35-7.45 N POC ARTERIAL BLOOD GAS PCO2 (test code = HTNBVW3Q) 39.6 mmHg 35.0-45 N POC TCO2 ARTERIAL (test code = POCTCO2) 28.9 POC ARTERIAL BLOOD GAS PO2 ( test code = YSKEH9G) 73.0 mmHg 80-100.0 L POC HCO3 ARTERIAL (test code = MFVULN0Q) 27.6 MMOL/L 22.0-26.0 H POC BASE EXCESS (test code = POCBEA) 3.6 MMOL/L -4.0-4.0 N POC O2 SATURATION (test code = POCO2S) 95.4 % 90-100 N FIO2 (test code = FIO2A) 32.0 % PaO2/FiO2 (test code = ISZ7WOF6) 228.10 mm/Hg ABG DELIVERY (test code = DELVIN) Cannula ABG TEMPERATURE (test code = TEMPA) 98 F ABG SITE (test code = SITEA) R Brach MABEL'S TEST (test code = ALLENS) Positive HEPATIC FUNCTION [id number] 04:17:00* Test Item Value Reference Range Interpretation Comme nts TOTAL PROTEIN (test code = PROT) 6.1 g/dL 6.4-8.2 L ALBUMIN (test code = ALB) 2.90 g/dL 3.4-5.0 L BILIRUBIN TOTAL (test code = BILT) 0.70 mg/dL 0.0-1.0 N BILIRUBIN DIRECT (test code = BILD) 0.30 MG/DL 0.1-0.3 N BILIRUBIN INDIRECT (test cod e = BILIND) 0.40 MG/DL SGOT/AST (test code = AST) 80 IUnit/L 8-34 H SGPT/ALT (test code = ALT) 81 IUnit/L 10-49 H ALKALINE PHOSPHATASE TOTAL ( test code = ALKP) 190 IUnit/L 20-125 H ADD-ONBASIC METABOLIC [id number] 03:51:00* Test Item Value Reference Range Interpretation Comme nts SODIUM (test code = NA) 129 mEq/L 134-147 L POTASSIUM (test code = K) 3.9 mEq/L 3.4-5.0 N CHLORIDE (test code = CL) 96 mEq/L 100-108 L CARBON DIOXIDE (test code = CO2) 26 mEq/l 21-33 N ANION GAP (test code = GAP) 10 0-20 N GLUCOSE (test code = GLU) 250 mg/dL 77-141 H BLOOD UREA NITROGEN (test code = BUN) 71 mg/dL 7-25 H GLOMERULAR FILTRATION RATE (test code = GFR) 38.0 80-90 L The Glomerular Filtration Rate is a calculated parameterbased on serum Creatinine, patient age and sex. GFR valuesless than 60 mL/min/1.73 square meters are indicative ofChronic Kidney Disease. Values less than 15 mL/min/1.73square meters indicate Kidney failure. The calculation forGFR is based on the CKD-EPI (2020) calculation. This formulais race indifferent and is the recommended formula for GFRby the National Kidney Foundation for Adults.The GFR will not calculate if the sex is unknown or if thepatient's age is <18 years. CREATININE (test code = CREAT) 1.9 mg/dL 0.6-1.3 H CALCIUM (test code = CA) 8.0 mg/dL 8.0-10.5 N [id number] 03:51:00* Test Item Value Reference Range Interpretation Comme nts MAGNESIUM (test code = MAG) 2.64 mg/dL 1.6-2.6 H CBC W/AUTO [id number] 03:36:00* Test Item Value Reference Range Interpretation Comme nts WHITE BLOOD CELL (test code = WBC) 10.2 x10 3/uL 4.5-11.0 N RED BLOOD CELL (test code = RBC) 3.08 x10 6/uL 4.00-5.60 L HEMOGLOBIN (test code = HGB) 9.3 g/dL 12.5-16.9 L HEMATOCRIT (test code = HCT) 28.2 % 37.5-50.7 L MEAN CELL VOLUME (test code = MCV) 91.6 fL 81.0-99.0 N MEAN CELL HGB (test code = MCH) 30.2 pg 27.0-33.0 N MEAN CELL HGB CONCETRATION (test code = MCHC) 33.0 g/dL 33.0-37.0 N RED CELL DISTRIBUTION WIDTH CV (test code = RDW) 14.2 % 11.5-14.5 N RED CELL DISTRIBUTION WIDTH SD (test code = RDW-SD) 46.7 fL 37.0-54.0 N PLATELET COUNT (test code = PLT) 166 x10 3/uL 150-400 N MEAN PLATELET VOLUME (test c ode = MPV) 11.9 fL 7.0-9.0 H NEUTROPHIL % (test code = NT%) 76.3 % 56.0-77.0 N IMMATURE GRANULOCYTE % (test code = IG%) 2.1 % 0.0-2.0 H LYMPHOCYTE % (test code = LY%) 4.8 % 14.0-32.0 L MONOCYTE % (test code = MO%) 14.1 % 4.8-9.0 H EOSINOPHIL % (test code = EO%) 2.3 % 0.3-3.7 N BASOPHIL % (test code = BA%) 0.4 % 0.0-2.0 N NUCLEATED RBC % (test code = NRBC%) 0.4 % 0-0 H NEUTROPHIL # (test code = NT#) 7.80 x10 3/uL 2.0-7.6 H IMMATURE GRANULOCYTE # (test code = IG#) 0.21 x10 3/uL 0.00-0.03 H LYMPHOCYTE # (test code = LY#) 0.49 x10 3/uL 1.0-3.8 L MONOCYTE # (test code = MO#) 1.44 x10 3/uL 0.1-0.8 H EOSINOPHIL # (test code = EO#) 0.24 x10 3/uL 0.0-0.2 H BASOPHIL # (test code = BA#) 0.04 x10 3/uL 0.0-0.2 N NUCLEATED RBC # (test code = NRBC#) 0.04 x10 3/uL 0.0-0.1 N GLUCOSE [id number] 03:33:00* Test Item Value Reference Range Interpretation Comme nts GLUCOSE BEDSIDE (test code = GLUBED) 258 MG/DL 70-110 H Performed by cer tified waxer operator at [facility] GLUCOSE [id number] 01:40:00* Test Item Value Reference Range Interpretation Comme nts GLUCOSE BEDSIDE (test code = GLUBED) 287 MG/DL 70-110 H Performed by cer tified waxer operator at [facility] [id number] 22:48:00* Test Item Value Reference Range Interpretation Comme nts MAGNESIUM (test code = MAG) 2.61 mg/dL 1.6-2.6 H CALCIUM [id number] 22:48:00* Test Item Value Reference Range Interpretation Comme nts CALCIUM IONIZED (test code = CARLOS) 1.01 MMOL/L 1.09-1.30 L GLUCOSE [id number] 22:23:00* Test Item Value Reference Range Interpretation Comme nts GLUCOSE BEDSIDE (test code = GLUBED) 275 MG/DL 70-110 H Performed by cer tified waxer operator at [facility] BASIC METABOLIC [id number] 21:38:00* Test Item Value Reference Range Interpretation Comme nts SODIUM (test code = NA) 129 mEq/L 134-147 L POTASSIUM (test code = K) 4.1 mEq/L 3.4-5.0 N CHLORIDE (test code = CL) 96 mEq/L 100-108 L CARBON DIOXIDE (test code = CO2) 24 mEq/l 21-33 N ANION GAP (test code = GAP) 13 0-20 N GLUCOSE (test code = GLU) 297 mg/dL 77-141 H BLOOD UREA NITROGEN (test code = BUN) 67 mg/dL 7-25 H GLOMERULAR FILTRATION RATE (test code = GFR) 38.0 80-90 L The Glomerular Filtration Rate is a calculated parameterbased on serum Creatinine, patient age and sex. GFR valuesless than 60 mL/min/1.73 square meters are indicative ofChronic Kidney Disease. Values less than 15 mL/min/1.73square meters indicate Kidney failure. The calculation forGFR is based on the CKD-EPI (202) calculation. This formulais race indifferent and is the recommended formula for GFRby the National Kidney Foundation for Adults.The GFR will not calculate if the sex is unknown or if thepatient's age is <18 years. CREATININE (test code = CREAT) 1.9 mg/dL 0.6-1.3 H CALCIUM (test code = CA) 8.2 mg/dL 8.0-10.5 N GLUCOSE [id number] 21:08:00* Test Item Value Reference Range Interpretation Comme nts GLUCOSE BEDSIDE (test code = GLUBED) 302 MG/DL 70-110 H Performed by cer tified waxer operator at [facility] GLUCOSE [id number] 18:47:00* Test Item Value Reference Range Interpretation Comme nts GLUCOSE BEDSIDE (test code = GLUBED) 250 MG/DL 70-110 H Performed by cer tified waxer operator at [facility] BASIC METABOLIC [id number] 16:32:00* Test Item Value Reference Range Interpretation Comme nts SODIUM (test code = NA) 129 mEq/L 134-147 L POTASSIUM (test code = K) 3.9 mEq/L 3.4-5.0 N CHLORIDE (test code = CL) 96 mEq/L 100-108 L CARBON DIOXIDE (test code = CO2) 25 mEq/l 21-33 N ANION GAP (test code = GAP) 12 0-20 N GLUCOSE (test code = GLU) 196 mg/dL 77-141 H BLOOD UREA NITROGEN (test code = BUN) 74 mg/dL 7-25 H GLOMERULAR FILTRATION RATE (test code = GFR) 33.7 80-90 L The Glomerular Filtration Rate is a calculated parameterbased on serum Creatinine, patient age and sex. GFR valuesless than 60 mL/min/1.73 square meters are indicative ofChronic Kidney Disease. Values less than 15 mL/min/1.73square meters indicate Kidney failure. The calculation forGFR is based on the CKD-EPI (2020) calculation. This formulais race indifferent and is the recommended formula for GFRby the National Kidney Foundation for Adults.The GFR will not calculate if the sex is unknown or if thepatient's age is <18 years. CREATININE (test code = CREAT) 2.1 mg/dL 0.6-1.3 H CALCIUM (test code = CA) 8.6 mg/dL 8.0-10.5 N [id number] 16:32:00* Test Item Value Reference Range Interpretation Comme nts MAGNESIUM (test code = MAG) 2.38 mg/dL 1.6-2.6 N CALCIUM [id number] 16:32:00* Test Item Value Reference Range Interpretation Comme nts CALCIUM IONIZED (test code = CARLOS) 1.09 MMOL/L 1.09-1.30 N GLUCOSE [id number] 14:26:00* Test Item Value Reference Range Interpretation Comme nts GLUCOSE BEDSIDE (test code = GLUBED) 226 MG/DL 70-110 H Performed by cer tified waxer operator at [facility] GLUCOSE [id number] 12:30:00* Test Item Value Reference Range Interpretation Comme nts GLUCOSE BEDSIDE (test code = GLUBED) 182 MG/DL 70-110 H Performed by cer tified waxer operator at [facility] BASIC METABOLIC [id number] 10:13:00* Test Item Value Reference Range Interpretation Comme nts SODIUM (test code = NA) 132 mEq/L 134-147 L POTASSIUM (test code = K) 3.9 mEq/L 3.4-5.0 N CHLORIDE (test code = CL) 96 mEq/L 100-108 L CARBON DIOXIDE (test code = CO2) 28 mEq/l 21-33 N ANION GAP (test code = GAP) 13 0-20 N GLUCOSE (test code = GLU) 173 mg/dL 77-141 H BLOOD UREA NITROGEN (test code = BUN) 81 mg/dL 7-25 H GLOMERULAR FILTRATION RATE (test code = GFR) 33.7 80-90 L The Glomerular Filtration Rate is a calculated parameterbased on serum Creatinine, patient age and sex. GFR valuesless than 60 mL/min/1.73 square meters are indicative ofChronic Kidney Disease. Values less than 15 mL/min/1.73square meters indicate Kidney failure. The calculation forGFR is based on the CKD-EPI (2020) calculation. This formulais race indifferent and is the recommended formula for GFRby the National Kidney Foundation for Adults.The GFR will not calculate if the sex is unknown or if thepatient's age is <18 years. CREATININE (test code = CREAT) 2.1 mg/dL 0.6-1.3 H CALCIUM (test code = CA) 8.6 mg/dL 8.0-10.5 N [id number] 10:13:00* Test Item Value Reference Range Interpretation Comme nts MAGNESIUM (test code = MAG) 2.45 mg/dL 1.6-2.6 N CALCIUM [id number] 10:13:00* Test Item Value Reference Range Interpretation Comme [facility] CALCIUM IONIZED (test code = CARLOS) 1.14 MMOL/L 1.09-1.30 N - XR CHEST 1 [id number] 09:15:00 [facility] 1955 Sex: M FAX: Kimmie Bacon MD [phone] [place]: St: ADM FAX: Nathaniel Shirley MD [phone] FAX: Eleonora Mai MD [phone] Name: MINDY CARTER [facility] : 1955 Age/S: 67/M [address] [place] [address] Unit #: [id number] Loc: .[address] [place] [address] Phys: Nathaniel Martel MD Acct: [id number] Dis Date:Status: ADM IN PHONE #: [phone] Exam Date: 06/16/2023 0608 FAX #: [phone] Reason: Cardiac Surgery Post Op EXAMS: CPT CODE: [id number] XR CHEST 1 V [id number] EXAM: - XR CHEST 1 V CLINICAL HISTORY: Cardiac Surgery Post Op TECHNIQUE: Single frontal view. COMPARISON: Chest radiograph from 06/15/2023, multiple priors LOCATION: C4 FINDINGS: Devices external to the patient are seen projecting over the thorax. Right neck central venous catheter terminating in the mid SVC. The trachea appears normal. The cardiac silhouette is enlarged and obscured by bilateral pulmonary opacities. Bilateral pulmonary opacities and small pleural effusions. There is a left retrocardiac consolidation. Small left apical pneumothorax. Sternotomy wires. No acute osseous abnormality. IMPRESSION: Cardiomegaly with small pleural effusions and left lower lobe consolidation, grossly unchanged from prior. Small left apical pneumothorax. at 0915 Reported and signed by: Desi Fry M.D. CC: Kimmie Bacon MD; Nathaniel Martel MD; Eleonora Mai MD Technologist: RT Zaid(R) Trnscrd Date/Time/By: 06/16/2023 (914) : By: LandyJJY Orig Print D/T: S: 06/16/2023 (917) PAGE 1 Signed ReportGLUCOSE BEDSIDE 2023-06-16 08:46:00* Test Item Value Reference Range Interpretation Comme [facility] GLUCOSE BEDSIDE (test code = GLUBED) 171 MG/DL 70-110 H Performed by Avvenu tified waxer operator at [facility] GLUCOSE [id number] 06:15:00* Test Item Value Reference Range Interpretation Comme [facility] GLUCOSE BEDSIDE (test code = GLUBED) 137 MG/DL 70-110 H Performed by [employer] waxer operator at [facility] GLUCOSE [id number] 04:18:00* Test Item Value Reference Range Interpretation Comme [facility] GLUCOSE BEDSIDE (test code = GLUBED) 97 MG/DL 70-110 N Performed by [employer] waxer operator at [facility] POC ARTERIAL BLOOD [id number] 04:13:00* Test Item Value Reference Range Interpretation Comme [facility] POC ARTERIAL BLOOD GAS PH (t est code = POCPHA) 7.412 7.35-7.45 N POC ARTERIAL BLOOD GAS PCO2 (test code = NYGZZM8X) 39.5 mmHg 35.0-45 N POC TCO2 ARTERIAL (test code = POCTCO2) 26.3 POC ARTERIAL BLOOD GAS PO2 ( test code = ZKZEU8V) 95.1 mmHg 80-100.0 N POC HCO3 ARTERIAL (test code = VTRNSI7K) 25.1 MMOL/L 22.0-26.0 N POC BASE EXCESS (test code = POCBEA) 0.5 MMOL/L -4.0-4.0 N POC O2 SATURATION (test code = POCO2S) 97.5 % 90-100 N ABG DELIVERY (test code = DELVIN) HFNC ABG SITE (test code = SITEA) Art Line MABEL'S TEST (test code = ALLENS) N/A BASIC METABOLIC [id number] 04:13:00* Test Item Value Reference Range Interpretation Comme nts SODIUM (test code = NA/ABG) 131 mmol/L 134-147 L POTASSIUM (test code = K/ABG) 3.8 mmol/L 3.4-5.0 N CHLORIDE (test code = CL/ABG) 96 mmol/L 100-108 L CREATININE ABG (test code = CREAABG) 2.5 mg/dL 0.8-1.3 H POC IONIZED CALCIUM (test co de = POCCA) 1.17 MMOL/L 1.12-1.32 N POC GLUCOSE (test code = POCGLU) 93 MG/DL 70-110 N HEMOGLOBIN [id number] 04:13:00* Test Item Value Reference Range Interpretation Comme nts HEMOGLOBIN ABG (test code = HGB/ABG) 12.7 G/DL 12.5-16.9 N [id number] 04:13:00* Test Item Value Reference Range Interpretation Comme nts HEMATOCRIT (test code = HCT/ABG) 37 % 37.5-50.7 L POC LACTIC [id number] 04:13:00* Test Item Value Reference Range Interpretation Comme nts POC LACTIC ACID (test code = POCLAC) 0.6 mmol/l 0.9-1.7 L BASIC METABOLIC [id number] 04:06:00* Test Item Value Reference Range Interpretation Comme nts SODIUM (test code = NA) 131 mEq/L 134-147 L POTASSIUM (test code = K) 3.8 mEq/L 3.4-5.0 N CHLORIDE (test code = CL) 97 mEq/L 100-108 L CARBON DIOXIDE (test code = CO2) 25 mEq/l 21-33 N ANION GAP (test code = GAP) 13 0-20 N GLUCOSE (test code = GLU) 107 mg/dL 77-141 BLOOD UREA NITROGEN (test code = BUN) 79 mg/dL 7-25 H GLOMERULAR FILTRATION RATE (test code = GFR) 33.7 80-90 L The Glomerular Filtration Rate is a calculated parameterbased on serum Creatinine, patient age and sex. GFR valuesless than 60 mL/min/1.73 square meters are indicative ofChronic Kidney Disease. Values less than 15 mL/min/1.73square meters indicate Kidney failure. The calculation forGFR is based on the CKD-EPI (2020) calculation. This formulais race indifferent and is the recommended formula for GFRby the National Kidney Foundation for Adults.The GFR will not calculate if the sex is unknown or if thepatient's age is <18 years. CREATININE (test code = CREAT) 2.1 mg/dL 0.6-1.3 H CALCIUM (test code = CA) 8.6 mg/dL 8.0-10.5 N HEPATIC FUNCTION [id number] 04:06:00* Test Item Value Reference Range Interpretation Comme nts TOTAL PROTEIN (test code = PROT) 5.9 g/dL 6.4-8.2 L ALBUMIN (test code = ALB) 2.70 g/dL 3.4-5.0 L BILIRUBIN TOTAL (test code = BILT) 0.70 mg/dL 0.0-1.0 N BILIRUBIN DIRECT (test code = BILD) 0.40 MG/DL 0.1-0.3 H BILIRUBIN INDIRECT (test cod e = BILIND) 0.30 MG/DL SGOT/AST (test code = AST) 99 IUnit/L 8-34 H SGPT/ALT (test code = ALT) 88 IUnit/L 10-49 H ALKALINE PHOSPHATASE TOTAL ( test code = ALKP) 134 IUnit/L 20-125 H [id number] 04:06:00* Test Item Value Reference Range Interpretation Comme nts MAGNESIUM (test code = MAG) 2.53 mg/dL 1.6-2.6 N CBC W/AUTO [id number] 03:46:00* Test Item Value Reference Range Interpretation Comme nts WHITE BLOOD CELL (test code = WBC) 11.3 x10 3/uL 4.5-11.0 H RED BLOOD CELL (test code = RBC) 3.15 x10 6/uL 4.00-5.60 L HEMOGLOBIN (test code = HGB) 9.6 g/dL 12.5-16.9 L HEMATOCRIT (test code = HCT) 28.9 % 37.5-50.7 L MEAN CELL VOLUME (test code = MCV) 91.7 fL 81.0-99.0 N MEAN CELL HGB (test code = MCH) 30.5 pg 27.0-33.0 N MEAN CELL HGB CONCETRATION (test code = MCHC) 33.2 g/dL 33.0-37.0 N RED CELL DISTRIBUTION WIDTH CV (test code = RDW) 14.1 % 11.5-14.5 N RED CELL DISTRIBUTION WIDTH SD (test code = RDW-SD) 46.9 fL 37.0-54.0 N PLATELET COUNT (test code = PLT) 143 x10 3/uL 150-400 L MEAN PLATELET VOLUME (test c ode = MPV) 12.2 fL 7.0-9.0 H NEUTROPHIL % (test code = NT%) 77.9 % 56.0-77.0 H IMMATURE GRANULOCYTE % (test code = IG%) 1.0 % 0.0-2.0 N LYMPHOCYTE % (test code = LY%) 5.0 % 14.0-32.0 L MONOCYTE % (test code = MO%) 12.6 % 4.8-9.0 H EOSINOPHIL % (test code = EO%) 3.4 % 0.3-3.7 N BASOPHIL % (test code = BA%) 0.1 % 0.0-2.0 N NUCLEATED RBC % (test code = NRBC%) 0.2 % 0-0 H NEUTROPHIL # (test code = NT#) 8.82 x10 3/uL 2.0-7.6 H IMMATURE GRANULOCYTE # (test code = IG#) 0.11 x10 3/uL 0.00-0.03 H LYMPHOCYTE # (test code = LY#) 0.56 x10 3/uL 1.0-3.8 L MONOCYTE # (test code = MO#) 1.42 x10 3/uL 0.1-0.8 H EOSINOPHIL # (test code = EO#) 0.38 x10 3/uL 0.0-0.2 H BASOPHIL # (test code = BA#) 0.01 x10 3/uL 0.0-0.2 N NUCLEATED RBC # (test code = NRBC#) 0.02 x10 3/uL 0.0-0.1 N GLUCOSE [id number] 01:09:00* Test Item Value Reference Range Interpretation Comme nts GLUCOSE BEDSIDE (test code = GLUBED) 116 MG/DL 70-110 H Performed by cer tified waxer operator at [facility] GLUCOSE [id number] 23:03:00* Test Item Value Reference Range Interpretation Comme nts GLUCOSE BEDSIDE (test code = GLUBED) 182 MG/DL 70-110 H Performed by cer tified waxer operator at [facility] BASIC METABOLIC [id number] 21:36:00* Test Item Value Reference Range Interpretation Comme nts SODIUM (test code = NA) 128 mEq/L 134-147 L POTASSIUM (test code = K) 3.5 mEq/L 3.4-5.0 N CHLORIDE (test code = CL) 98 mEq/L 100-108 L CARBON DIOXIDE (test code = CO2) 22 mEq/l 21-33 ANION GAP (test code = GAP) 12 0-20 N GLUCOSE (test code = GLU) 228 mg/dL 77-141 H BLOOD UREA NITROGEN (test code = BUN) 77 mg/dL 7-25 H GLOMERULAR FILTRATION RATE (test code = GFR) 31.8 80-90 L The Glomerular Filtration Rate is a calculated parameterbased on serum Creatinine, patient age and sex. GFR valuesless than 60 mL/min/1.73 square meters are indicative ofChronic Kidney Disease. Values less than 15 mL/min/1.73square meters indicate Kidney failure. The calculation forGFR is based on the CKD-EPI (2020) calculation. This formulais race indifferent and is the recommended formula for GFRby the National Kidney Foundation for Adults.The GFR will not calculate if the sex is unknown or if thepatient's age is <18 years. CREATININE (test code = CREAT) 2.2 mg/dL 0.6-1.3 H CALCIUM (test code = CA) 8.7 mg/dL 8.0-10.5 [id number] 21:36:00* Test Item Value Reference Range Interpretation Comme [facility] MAGNESIUM (test code = MAG) 2.63 mg/dL 1.6-2.6 H CALCIUM [id number] 21:36:00* Test Item Value Reference Range Interpretation Comme nts CALCIUM IONIZED (test code = CARLOS) 1.16 MMOL/L 1.09-1.30 N GLUCOSE [id number] 21:17:00* Test Item Value Reference Range Interpretation Comme nts GLUCOSE BEDSIDE (test code = GLUBED) 216 MG/DL 70-110 H Performed by cer tified waxer operator at [facility] GLUCOSE [id number] 19:30:00* Test Item Value Reference Range Interpretation Comme nts GLUCOSE BEDSIDE (test code = GLUBED) 267 MG/DL 70-110 H Performed by cer tified waxer operator at [facility] BASIC METABOLIC [id number] 16:04:00* Test Item Value Reference Range Interpretation Comme nts SODIUM (test code = NA) 133 mEq/L 134-147 L POTASSIUM (test code = K) 3.3 mEq/L 3.4-5.0 L CHLORIDE (test code = CL) 104 mEq/L 100-108 N CARBON DIOXIDE (test code = CO2) 17 mEq/l 21-33 L ANION GAP (test code = GAP) 15 0-20 N GLUCOSE (test code = GLU) 195 mg/dL 77-141 H BLOOD UREA NITROGEN (test code = BUN) 50 mg/dL 7-25 H GLOMERULAR FILTRATION RATE (test code = GFR) 38.0 80-90 L The Glomerular Filtration Rate is a calculated parameterbased on serum Creatinine, patient age and sex. GFR valuesless than 60 mL/min/1.73 square meters are indicative ofChronic Kidney Disease. Values less than 15 mL/min/1.73square meters indicate Kidney failure. The calculation forGFR is based on the CKD-EPI (2020) calculation. This formulais race indifferent and is the recommended formula for GFRby the National Kidney Foundation for Adults.The GFR will not calculate if the sex is unknown or if thepatient's age is <18 years. CREATININE (test code = CREAT) 1.9 mg/dL 0.6-1.3 H CALCIUM (test code = CA) 6.9 mg/dL 8.0-10.5 L [id number] 16:04:00* Test Item Value Reference Range Interpretation Comme [facility] MAGNESIUM (test code = MAG) 2.14 mg/dL 1.6-2.6 N CALCIUM [id number] 16:04:00* Test Item Value Reference Range Interpretation Comme nts CALCIUM IONIZED (test code = CARLOS) 0.96 MMOL/L 1.09-1.30 L POC ARTERIAL BLOOD [id number] 15:23:00* Test Item Value Reference Range Interpretation Comme nts POC ARTERIAL BLOOD GAS PH (t est code = POCPHA) 7.440 7.35-7.45 N POC ARTERIAL BLOOD GAS PCO2 (test code = BSANUA0U) 25.8 mmHg 35.0-45 LL POC TCO2 ARTERIAL (test code = POCTCO2) 18.4 POC ARTERIAL BLOOD GAS PO2 ( test code = SECMD3K) 53.9 mmHg 80-100.0 L POC HCO3 ARTERIAL (test code = NLMDKG7K) 17.6 MMOL/L 22.0-26.0 LL POC BASE EXCESS (test code = POCBEA) -6.7 MMOL/L -4.0-4.0 L POC O2 SATURATION (test code = POCO2S) 90.2 % 90-100 N FIO2 (test code = FIO2A) 40.0 % PaO2/FiO2 (test code = VDR8EET7) 134.70 mm/Hg ABG DELIVERY (test code = DELVIN) HFNC ABG TEMPERATURE (test code = TEMPA) 97.7 F ABG SITE (test code = SITEA) Art Line BASIC METABOLIC [id number] 15:23:00* Test Item Value Reference Range Interpretation Comme nts SODIUM (test code = NA/ABG) 132 mmol/L 134-147 L POTASSIUM (test code = K/ABG) 3.2 mmol/L 3.4-5.0 L CHLORIDE (test code = CL/ABG) 100 mmol/L 100-108 N CREATININE ABG (test code = CREAABG) 2.0 mg/dL 0.8-1.3 H POC IONIZED CALCIUM (test co de = POCCA) 0.98 MMOL/L 1.12-1.32 L POC GLUCOSE (test code = POCGLU) 173 MG/DL 70-110 H HEMOGLOBIN [id number] 15:23:00* Test Item Value Reference Range Interpretation Comme nts HEMOGLOBIN ABG (test code = HGB/ABG) 8.6 G/DL 12.5-16.9 L [id number] 15:23:00* Test Item Value Reference Range Interpretation Comme nts HEMATOCRIT (test code = HCT/ABG) 25 % 37.5-50.7 L POC LACTIC [id number] 15:23:00* Test Item Value Reference Range Interpretation Comme nts POC LACTIC ACID (test code = POCLAC) 0.7 mmol/l 0.9-1.7 L [id number] 11:58:00* Test Item Value Reference Range Interpretation Comments SURGICAL (test code = SR) RUN DATE: 06/15/23 [employer] - LAB PAGE 1 RUN TIME: 1159 Specimen Inquiry RUN USER: INTERFACE PATIENT: MINDY CARTER LOC: JIMU U #: [id number] AGE/SX: 67/M ROOM: [facility] RE05/31/23[facility] DR: Kimmie Bacon MD : 53 BED: 1 DIS: STATUS: ADM IN TLOC: SPEC #: [id number] RECD: 06/14/23 STATUS: JEFF MARTIN #: [id number] KOFFI: 06/11/23- [facility] DR: Kimmie Bacon MD ENTERED: 06/14/23 SP TYPE: SURGICAL OTHR DR: No Primary or Family Physician Self Referred Clayton Nathan MD,Nathaniel Tovar MD, MD,Eleonora Cotto,Joe Mcdonnell,Rigoberto Garcia MD, MDORDERED: [id number], ANATOMIC SPEC COPIES TO: No Primary or Family Physician Self Referred Clayton Nathan MD [address] [place] [address] Nkechi Bacon MD [address] [place] [address] [place] [address] [address] Nathaniel Martel MD [address] [place] [address]. [address] [place] [address] Eleonora Mai MD [address] [place] [address]. [place] [address] CONTINUED ON NEXT PAGE RUN DATE: 06/15/23 [place] - LAB PAGE 2 RUN TIME: 1159 Specimen Inquiry RUN USER: INTERFACE SPEC #: [id number] PATIENT: MINDY CARTER #[id number] (Continued) - COPIES TO: (Continued) Joe Cotto MD [address] [place] [address] Kareem Mcdonnell MD [address] [place] [address] Rigoberto Jarrell MD [address] [place] [address] [address] [place] [address] PROCEDURES: [id number] (06/14/23-1113) TISSUES: A. ATRIUM - LEFT ATRIAL APPENDAGE FINAL DIAGNOSIS Heart, left atrial appendage, wedge biopsy: - Myocardium with focal ischemic change. GROSS DESCRIPTION Received in formalin labeled "left atrial appendage "is a wedge biopsy of heart, 3.5 x 2 x1.4 cm, sectioned and entirely submitted (A)-(B). Technical component performed at [facility],[address] [place] [address], [place] [address] Unless gross only, the diagnosis is based upon microscopic examination.Immunohistochemistry: This test was developed and its performance characteristicsdetermined by this laboratory. It has not been approved nor does it need approvalby the [place] FDA. Appropriate positive and negative controls are reviewed and judgedto be acceptable for performedimmunohistochemistry and/or special stains. This laboratoryis certified under the Clinical Laboratory Improvement Amendments (CLIA-88) as qualified toperform high complexity clinical laboratory testing. Signed SIGNATURE ON FILE Jesus Jason 06/15/23 1158 END OF REPORT GLUCOSE [id number] 11:47:00* Test Item Value Reference Range Interpretation Comme nts GLUCOSE BEDSIDE (test code = GLUBED) 196 MG/DL 70-110 H Performed by linda marcus at [facility] BASIC METABOLIC [id number] 10:06:00* Test Item Value Reference Range Interpretation Comme nts SODIUM (test code = NA) 130 mEq/L 134-147 L POTASSIUM (test code = K) 3.4 mEq/L 3.4-5.0 N CHLORIDE (test code = CL) 97 mEq/L 100-108 L CARBON DIOXIDE (test code = CO2) 22 mEq/l 21-33 N ANION GAP (test code = GAP) 15 0-20 N GLUCOSE (test code = GLU) 182 mg/dL 77-141 H BLOOD UREA NITROGEN (test code = BUN) 72 mg/dL 7-25 H GLOMERULAR FILTRATION RATE (test code = GFR) 30.2 80-90 L The Glomerular Filtration Rate is a calculated parameterbased on serum Creatinine, patient age and sex. GFR valuesless than 60 mL/min/1.73 square meters are indicative ofChronic Kidney Disease. Values less than 15 mL/min/1.73square meters indicate Kidney failure. The calculation forGFR is based on the CKD-EPI (2020) calculation. This formulais race indifferent and is the recommended formula for GFRby the National Kidney Foundation for Adults.The GFR will not calculate if the sex is unknown or if thepatient's age is <18 years. CREATININE (test code = CREAT) 2.3 mg/dL 0.6-1.3 H CALCIUM (test code = CA) 8.2 mg/dL 8.0-10.5 N [id number] 10:06:00* Test Item Value Reference Range Interpretation Comme nts MAGNESIUM (test code = MAG) 2.30 mg/dL 1.6-2.6 N CALCIUM [id number] 10:06:00* Test Item Value Reference Range Interpretation Comme nts CALCIUM IONIZED (test code = CARLOS) 1.10 MMOL/L 1.09-1.30 N POC ARTERIAL BLOOD [id number] 09:49:00* Test Item Value Reference Range Interpretation Comme nts POC ARTERIAL BLOOD GAS PH (t est code = POCPHA) 7.407 7.35-7.45 N POC ARTERIAL BLOOD GAS PCO2 (test code = BZQLYP8D) 34.4 mmHg 35.0-45 L POC TCO2 ARTERIAL (test code = POCTCO2) 22.7 POC ARTERIAL BLOOD GAS PO2 ( test code = CEMCX6N) 89.7 mmHg 80-100.0 N POC HCO3 ARTERIAL (test code = LBYFZK7V) 21.6 MMOL/L 22.0-26.0 L POC BASE EXCESS (test code = POCBEA) -3.0 MMOL/L -4.0-4.0 N POC O2 SATURATION (test code = POCO2S) 97.1 % 90-100 N FIO2 (test code = FIO2A) 56 % PaO2/FiO2 (test code = MZJ2RLD4) 160.17 mm/Hg ABG DELIVERY (test code = DELVIN) HFNC ABG TEMPERATURE (test code = TEMPA) 97.7 F ABG SITE (test code = SITEA) Art Line BASIC METABOLIC [id number] 09:49:00* Test Item Value Reference Range Interpretation Comme nts SODIUM (test code = NA/ABG) 129 mmol/L 134-147 L POTASSIUM (test code = K/ABG) 3.4 mmol/L 3.4-5.0 N CHLORIDE (test code = CL/ABG) 96 mmol/L 100-108 L CREATININE ABG (test code = CREAABG) 2.7 mg/dL 0.8-1.3 H POC IONIZED CALCIUM (test co de = POCCA) 1.11 MMOL/L 1.12-1.32 L POC GLUCOSE (test code = POCGLU) 146 MG/DL 70-110 H HEMOGLOBIN [id number] 09:49:00* Test Item Value Reference Range Interpretation Comme nts HEMOGLOBIN ABG (test code = HGB/ABG) 10.1 G/DL 12.5-16.9 L [id number] 09:49:00* Test Item Value Reference Range Interpretation Comme nts HEMATOCRIT (test code = HCT/ABG) 30 % 37.5-50.7 L POC LACTIC [id number] 09:49:00* Test Item Value Reference Range Interpretation Comme nts POC LACTIC ACID (test code = POCLAC) 0.7 mmol/l 0.9-1.7 L GLUCOSE [id number] 08:27:00* Test Item Value Reference Range Interpretation Comme nts GLUCOSE BEDSIDE (test code = GLUBED) 168 MG/DL 70-110 H Performed by cer tified waxer operator at [facility] HEPATIC FUNCTION [id number] 07:37:00* Test Item Value Reference Range Interpretation Comme nts TOTAL PROTEIN (test code = PROT) 5.9 g/dL 6.4-8.2 L ALBUMIN (test code = ALB) 2.80 g/dL 3.4-5.0 L BILIRUBIN TOTAL (test code = BILT) 0.70 mg/dL 0.0-1.0 N BILIRUBIN DIRECT (test code = BILD) 0.30 MG/DL 0.1-0.3 N BILIRUBIN INDIRECT (test cod e = BILIND) 0.40 MG/DL SGOT/AST (test code = AST) 155 IUnit/L 8-34 H SGPT/ALT (test code = ALT) 111 IUnit/L 10-49 H ALKALINE PHOSPHATASE TOTAL ( test code = ALKP) 115 IUnit/L 20-125 N - XR CHEST 1 [id number] 07:28:00 [facility] 1955 Sex: M FAX: Kimmie Bacon MD [phone] [place]: St: ADM FAX: Eleonora Mai MD [phone] FAX: Kareem Mcdonnell MD [phone] Name: MINDY CARTER [facility] : 1955 Age/S: 67/M [address] [place] [address] Unit #:[id number] Loc: [address] [address] Phys: Kareem Mcdonnell MD Acct: [id number] Dis Date: Status: ADM IN PHONE #: [phone] Exam Date: 06/15/2023632 FAX #: [phone] Reason: POST CABG EX AMS: CPT CODE: [id number] XR CHEST 1 V 30054 CHEST 1 VIEW: INDICATION: POST CABG COMPARISON: Comparison made with previous study of 06/14/2023 Location: C3 A single portable AP view of the chest demonstrates stable postsurgical change of median sternotomy and CABG. A right-sided [place] catheter structures towards the right pulmonary artery. Pleural tubes are unchanged. The heart is enlarged. Hazy lung opacities and small right pleural effusion present. No apparent pneumothorax. The visualized bony structures are unremarkable. IMPRESSION: 1. Lines and tubes are seen in suitable position. 2.CHF, unchanged. at 0728 Reported and signed by: Rogelio Casanova M.D. CC: Kimmie Bacon MD; Eleonora Mai MD; Kareem Mcdonnell MDTechnologist: RT Zaid(R) Trnscrd Date/Time/By: 06/15/2023 (07) : By: [email or web address] Orig Print D/T: S: 06/15/2023 (8616) PAGE 1 Signed ReportPOC ARTERIAL BLOOD [id number] 05:24:00* Test Item Value Reference Range Interpretation Comme nts POC ARTERIAL BLOOD GAS PH (t est code = POCPHA) 7.395 7.35-7.45 N POC ARTERIAL BLOOD GAS PCO2 (test code = EIDTIF0E) 37.2 mmHg 35.0-45 N POC TCO2 ARTERIAL (test code = POCTCO2) 23.9 POC ARTERIAL BLOOD GAS PO2 ( test code = SLSEM0W) 61.1 mmHg 80-100.0 L POC HCO3 ARTERIAL (test code = [id number]) 22.8 MMOL/L 22.0-26.0 N POC BASE EXCESS (test code = POCBEA) -2.1 MMOL/L -4.0-4.0 N POC O2 SATURATION (test code = POCO2S) 91.0 % 90-100 N ABG DELIVERY (test code = DELVIN) HFNC ABG SITE (test code = SITEA) Art Line MABEL'S TEST (test code = ALLENS) N/A BASIC METABOLIC [id number] 05:24:00* Test Item Value Reference Range Interpretation Comme nts SODIUM (test code = NA/ABG) 131 mmol/L 134-147 L POTASSIUM (test code = K/ABG) 3.3 mmol/L 3.4-5.0 L CHLORIDE (test code = CL/ABG) 98 mmol/L 100-108 L CREATININE ABG (test code = CREAABG) 2.4 mg/dL 0.8-1.3 H POC IONIZED CALCIUM (test co de = POCCA) 1.13 MMOL/L 1.12-1.32 N POC GLUCOSE (test code = POCGLU) 132 MG/DL 70-110 H HEMOGLOBIN [id number] 05:24:00* Test Item Value Reference Range Interpretation Comme nts HEMOGLOBIN ABG (test code = HGB/ABG) 10.6 G/DL 12.5-16.9 L [id number] 05:24:00* Test Item Value Reference Range Interpretation Comme nts HEMATOCRIT (test code = HCT/ABG) 31 % 37.5-50.7 L POC LACTIC [id number] 05:24:00* Test Item Value Reference Range Interpretation Comme nts POC LACTIC ACID (test code = POCLAC) 0.7 mmol/l 0.9-1.7 L BASIC METABOLIC [id number] 03:43:00* Test Item Value Reference Range Interpretation Comme nts SODIUM (test code = NA) 130 mEq/L 134-147 L POTASSIUM (test code = K) 3.4 mEq/L 3.4-5.0 CHLORIDE (test code = CL) 97 mEq/L 100-108 L CARBON DIOXIDE (test code = CO2) 24 mEq/l 21-33 N ANION GAP (test code = GAP) 12 0-20 N GLUCOSE (test code = GLU) 166 mg/dL 77-141 H BLOOD UREA NITROGEN (test code = BUN) 73 mg/dL 7-25 H GLOMERULAR FILTRATION RATE (test code = GFR) 28.7 80-90 L The Glomerular Filtration Rate is a calculated parameterbased on serum Creatinine, patient age and sex. GFR valuesless than 60 mL/min/1.73 square meters are indicative ofChronic Kidney Disease. Values less than 15 mL/min/1.73square meters indicate Kidney failure. The calculation forGFR is based on the CKD-EPI (2020) calculation. This formulais race indifferent and is the recommended formula for GFRby the National Kidney Foundation for Adults.The GFR will not calculate if the sex is unknown or if thepatient's age is <18 years. CREATININE (test code = CREAT) 2.4 mg/dL 0.6-1.3 H CALCIUM (test code = CA) 8.3 mg/dL 8.0-10.5 N [id number] 03:43:00* Test Item Value Reference Range Interpretation Comme nts MAGNESIUM (test code = MAG) 2.18 mg/dL 1.6-2.6 N CBC W/AUTO [id number] 03:24:00* Test Item Value Reference Range Interpretation Comme nts WHITE BLOOD CELL (test code = WBC) 13.9 x10 3/uL 4.5-11.0 H RED BLOOD CELL (test code = RBC) 3.14 x10 6/uL 4.00-5.60 L HEMOGLOBIN (test code = HGB) 9.6 g/dL 12.5-16.9 L HEMATOCRIT (test code = HCT) 28.9 % 37.5-50.7 L MEAN CELL VOLUME (test code = MCV) 92.0 fL 81.0-99.0 N MEAN CELL HGB (test code = MCH) 30.6 pg 27.0-33.0 N MEAN CELL HGB CONCETRATION (test code = MCHC) 33.2 g/dL 33.0-37.0 N RED CELL DISTRIBUTION WIDTH CV (test code = RDW) 14.5 % 11.5-14.5 N RED CELL DISTRIBUTION WIDTH SD (test code = RDW-SD) 47.9 fL 37.0-54.0 N PLATELET COUNT (test code = PLT) 132 x10 3/uL 150-400 L MEAN PLATELET VOLUME (test code = MPV) 12.3 fL 7.0-9.0 H NEUTROPHIL % (test code = NT%) 84.4 % 56.0-77.0 H IMMATURE GRANULOCYTE % (test code = IG%) 1.0 % 0.0-2.0 N LYMPHOCYTE % (test code = LY%) 4.5 % 14.0-32.0 L MONOCYTE % (test code = MO%) 8.7 % 4.8-9.0 N EOSINOPHIL % (test code = EO%) 1.3 % 0.3-3.7 N BASOPHIL % (test code = BA%) 0.1 % 0.0-2.0 N NUCLEATED RBC % (test code = NRBC%) 0.0 % 0-0 N NEUTROPHIL # (test code = NT#) 11.68 x10 3/uL 2.0-7.6 H IMMATURE GRANULOCYTE # (test code = IG#) 0.14 x10 3/uL 0.00-0.03 H LYMPHOCYTE # (test code = LY#) 0.63 x10 3/uL 1.0-3.8 L MONOCYTE # (test code = MO#) 1.21 x10 3/uL 0.1-0.8 H EOSINOPHIL # (test code = EO#) 0.18 x10 3/uL 0.0-0.2 N BASOPHIL # (test code = BA#) 0.01 x10 3/uL 0.0-0.2 N NUCLEATED RBC # (test code = NRBC#) 0.00 x10 3/uL 0.0-0.1 N GLUCOSE [id number] 03:23:00* Test Item Value Reference Range Interpretation Comme nts GLUCOSE BEDSIDE (test code = GLUBED) 169 MG/DL 70-110 H Performed by cer tified waxer operator at [facility] GLUCOSE [id number] 00:50:00* Test Item Value Reference Range Interpretation Comme nts GLUCOSE BEDSIDE (test code = GLUBED) 175 MG/DL 70-110 H Performed by cer tified waxer operator at [facility] GLUCOSE [id number] 22:42:00* Test Item Value Reference Range Interpretation Comme nts GLUCOSE BEDSIDE (test code = GLUBED) 213 MG/DL 70-110 H Performed by cer tified waxer operator at [facility] GLUCOSE [id number] 20:14:00* Test Item Value Reference Range Interpretation Comme nts GLUCOSE BEDSIDE (test code = GLUBED) 263 MG/DL 70-110 H Performed by cer tified waxer operator at [facility] GLUCOSE [id number] 19:24:00* Test Item Value Reference Range Interpretation Comme nts GLUCOSE BEDSIDE (test code = GLUBED) 290 MG/DL 70-110 H Performed by cer tified waxer operator at [facility] GLUCOSE [id number] 18:15:00* Test Item Value Reference Range Interpretation Comme nts GLUCOSE BEDSIDE (test code = GLUBED) 351 MG/DL 70-110 H Performed by cer tified waxer operator at [facility] GLUCOSE [id number] 17:36:00* Test Item Value Reference Range Interpretation Comme nts GLUCOSE BEDSIDE (test code = GLUBED) 300 MG/DL 70-110 H Performed by cer tified waxer operator at [facility] BASIC METABOLIC [id number] 13:30:00* Test Item Value Reference Range Interpretation Comme nts SODIUM (test code = NA) 129 mEq/L 134-147 L POTASSIUM (test code = K) 4.5 mEq/L 3.4-5.0 N CHLORIDE (test code = CL) 99 mEq/L 100-108 L CARBON DIOXIDE (test code = CO2) 20 mEq/l 21-33 L ANION GAP (test code = GAP) 15 0-20 N GLUCOSE (test code = GLU) 322 mg/dL 77-141 H BLOOD UREA NITROGEN (test code = BUN) 64 mg/dL 7-25 H GLOMERULAR FILTRATION RATE (test code = GFR) 26.1 80-90 L The Glomerular Filtration Rate is a calculated parameterbased on serum Creatinine, patient age and sex. GFR valuesless than 60 mL/min/1.73 square meters are indicative ofChronic Kidney Disease. Values less than 15 mL/min/1.73square meters indicate Kidney failure. The calculation forGFR is based on the CKD-EPI (2020) calculation. This formulais race indifferent and is the recommended formula for GFRby the National Kidney Foundation for Adults.The GFR will not calculate if the sex is unknown or if thepatient's age is <18 years. CREATININE (test code = CREAT) 2.6 mg/dL 0.6-1.3 H CALCIUM (test code = CA) 8.5 mg/dL 8.0-10.5 N [id number] 13:30:00* Test Item Value Reference Range Interpretation Comme nts MAGNESIUM (test code = MAG) 2.33 mg/dL 1.6-2.6 N CALCIUM [id number] 13:30:00* Test Item Value Reference Range Interpretation Comme nts CALCIUM IONIZED (test code = CARLOS) 1.15 MMOL/L 1.09-1.30 N GLUCOSE [id number] 12:15:00* Test Item Value Reference Range Interpretation Comme nts GLUCOSE BEDSIDE (test code = GLUBED) 194 MG/DL 70-110 H Performed by linda marcus at [facility] - US ABDOMEN [id number] 10:07:00 [facility] 1955 Sex: M Name: MINDY CARTER [facility] : 1955 Age/S: 67 / M [address] [place] [address] Unit #: [id number] Loc: [place] [address] Phys: Johnna Pablo Physic Acct: [id number] Dis Date: Status: ADM IN PHONE #: [phone] Exam Date: 06/14/2023940 FAX #: [phone] Reason: include focus onliver EXAMS: CPT CODE: [id number] US ABDOMEN COMPLETE 27975 EXAM: - US ABDOMEN COMPLETE LOCATION: C4 HISTORY: include focus on liver COMPARISON: None available. TECHNIQUE: Grayscale B-mode, Spectral Doppler analysis, and color Doppler sonographic images of the abdomen were obtained. FINDINGS: LIVER: Normal echogenicity. Nodular contour and coarse echotexture. No focal mass lesions or intrahepatic biliary duct dilation visualized. No perihepatic ascites. Main portal vein is patent with normal antegrade flow. GALLBLADDER: Cholelithiasis without gallbladder wall thickening, pericholecystic fluid, or surrounding inflammatory changes. Sonographic Osuna sign is negative. COMMON DUCT: Measures russel roximately 0.5 cm in diameter. PANCREAS: Partially obscured by overlying bowel gas. Visualized portions appear normal. SPLEEN: Measures approximately 15.8 cm in diameter. RIGHT KIDNEY: Measures approximately 11.6 x 5.7 x 4.2 cm. Normal echogenicity and contour. No hydronephrosis or perinephric fluid collections. LEFT KIDNEY: Measures approximately 11.7 x 5.4 x 3.5 cm. Normal echogenicity and contour. No hydronephrosis or perinephric fluid collections. OTHER: No ascites. IMPRESSION: Evaluation limited by overlying bandage. Cirrhotic liver morphology. Cholelithiasis and distended gallbladder without sonographic features of acute cholecystitis. PAGE 1 Signed Report (CONTINUED) Name: MINDY CARTER [facility] : 1955 Age/S: 67 / M [address] [place] [address] Unit #: [id number] Loc: [place] [address] Phys: Johnna Pablo Physic Acct: [id number] Dis Date: Status: ADM IN PHONE #: [phone] Exam Date: 06/14/2023940 FAX #: [phone] Reason: include focus on liver EXAMS:CPT CODE: [id number] US ABDOMEN COMPLETE 77649 (Continued) at 1007 Reported and signed by: Desi Fry M.D. CC: Kimmie Bacon MD; Eleonora Mai MD; Johnna Pablo Technologist: Ceci Haddad RDMS(AB)(OB) Trnscb Date/Time: 06/14/2023 (1007) LandyJJY Orig Print D/T: S: 06/14/2023 (1010) Probe: PAGE 2 Signed Report- XR CHEST 1 [id number] 09:34:00 [facility] 1955 Sex: M FAX: Kimmie Bacon MD [phone] [place]: St: ADM FAX: Nathaniel Shirley MD [phone] FAX: Eleonora Mai MD [phone] Name: MINDY CARTER [facility] : 1955 Age/S: 67/M [address] [place] [address] Unit #: [id number] Loc: [place] [address] Phys: Nathaniel Martel MD Acct: [id number] Dis Date: Status: ADM IN PHONE #: [phone] Exam Date: 06/14/2023 0609 FAX #: [phone] Reason: Cardiac Surgery Post Op EXAMS: CPT CODE: [id number] XR CHEST 1 V 38836 Dictation location: C4. CHEST, FRONTAL VIEW HISTORY: Cardiac Surgery Post Op FINDINGS: Since 06/13/23, the right IJ [place]-Chacorta catheter remains in the main pulmonary artery directed toward towards the right. Left chest tube is stable inposition. Small left apical pneumothorax. Mild right basal atelectasis with new small right pleuraleffusion. Cardiomegaly with mild vascular congestion. Stable left basilar pulmonary opacities. Sternotomy wires. Thoracic spondylosis. IMPRESSION: A small left apical pneumothorax is now evident. Theleft chest tube is stable in position. Small right pleural effusion. Stable left pulmonary opacities. at 0934 Reported and signed by: Elio Pimentel M.D. CC: Kimmie Bacon MD; Nathaniel Martel MD; Eleonora Mai MD Technologist: RT Angie(Penelope) Trnscrd Date/Time/By: 06/14/2023 (0934) : By: [email or web address] Orig Print D/T: S: 06/14/2023 (0983) PAGE 1 Signed ReportBASIC METABOLIC [id number] 05:55:00* Test Item Value Reference Range Interpretation Comme nts SODIUM (test code = NA) 131 mEq/L 134-147 L POTASSIUM (test code = K) 4.5 mEq/L 3.4-5.0 N CHLORIDE (test code = CL) 100 mEq/L 100-108 N CARBON DIOXIDE (test code = CO2) 18 mEq/l 21-33 L ANION GAP (test code = GAP) 18 0-20 N GLUCOSE (test code = GLU) 238 mg/dL 77-141 H BLOOD UREA NITROGEN (test code = BUN) 52 mg/dL 7-25 H GLOMERULAR FILTRATION RATE (test code = GFR) 27.3 80-90 L The Glomerular Filtration Rate is a calculated parameterbased on serum Creatinine, patient age and sex. GFR valuesless than 60 mL/min/1.73 square meters are indicative ofChronic Kidney Disease. Values less than 15 mL/min/1.73square meters indicate Kidney failure. The calculation forGFR is based on the CKD-EPI (2020) calculation. This formulais race indifferent and is the recommended formula for GFRby the National Kidney Foundation for Adults.The GFR will not calculate if the sex is unknown or if thepatient's age is <18 years. CREATININE (test code = CREAT) 2.5 mg/dL 0.6-1.3 H CALCIUM (test code = CA) 8.8 mg/dL 8.0-10.5 N COMMENTS: POD #1HEPATIC FUNCTION [id number] 05:55:00* Test Item Value Reference Range Interpretation Comme nts TOTAL PROTEIN (test code = PROT) 6.1 g/dL 6.4-8.2 L ALBUMIN (test code = ALB) 3.10 g/dL 3.4-5.0 L BILIRUBIN TOTAL (test code = BILT) 0.70 mg/dL 0.0-1.0 N BILIRUBIN DIRECT (test code = BILD) 0.40 MG/DL 0.1-0.3 H BILIRUBIN INDIRECT (test cod e = BILIND) 0.30 MG/DL SGOT/AST (test code = AST) 371 IUnit/L 8-34 H SGPT/ALT (test code = ALT) 164 IUnit/L 10-49 H ALKALINE PHOSPHATASE TOTAL ( test code = ALKP) 101 IUnit/L 20-125 N COMMENTS: POD #[id number] 05:55:00* Test Item Value Reference Range Interpretation Comme nts MAGNESIUM (test code = MAG) 2.47 mg/dL 1.6-2.6 N COMMENTS: POD #1CBC W/AUTO [id number] 05:10:00* Test Item Value Reference Range Interpretation Comme nts WHITE BLOOD CELL (test code = WBC) 22.7 x10 3/uL 4.5-11.0 H RED BLOOD CELL (test code = RBC) 3.54 x10 6/uL 4.00-5.60 L HEMOGLOBIN (test code = HGB) 10.6 g/dL 12.5-16.9 L HEMATOCRIT (test code = HCT) 33.0 % 37.5-50.7 L MEAN CELL VOLUME (test code = MCV) 93.2 fL 81.0-99.0 N MEAN CELL HGB (test code = MCH) 29.9 pg 27.0-33.0 N MEAN CELL HGB CONCETRATION (test code = MCHC) 32.1 g/dL 33.0-37.0 L RED CELL DISTRIBUTION WIDTH CV (test code = RDW) 14.7 % 11.5-14.5 H RED CELL DISTRIBUTION WIDTH SD (test code = RDW-SD) 50.6 fL 37.0-54.0 N PLATELET COUNT (test code = PLT) 208 x10 3/uL 150-400 N MEAN PLATELET VOLUME (test code = MPV) 12.3 fL 7.0-9.0 H NEUTROPHIL % (test code = NT%) 83.4 % 56.0-77.0 H IMMATURE GRANULOCYTE % (test code = IG%) 1.2 % 0.0-2.0 N LYMPHOCYTE % (test code = LY%) 5.3 % 14.0-32.0 L MONOCYTE % (test code = MO%) 9.8 % 4.8-9.0 H EOSINOPHIL % (test code = EO%) 0.1 % 0.3-3.7 L BASOPHIL % (test code = BA%) 0.2 % 0.0-2.0 N NUCLEATED RBC % (test code = NRBC%) 0.2 % 0-0 H NEUTROPHIL # (test code = NT#) 18.88 x10 3/uL 2.0-7.6 H IMMATURE GRANULOCYTE # (test code = IG#) 0.28 x10 3/uL 0.00-0.03 H LYMPHOCYTE # (test code = LY#) 1.21 x10 3/uL 1.0-3.8 N MONOCYTE # (test code = MO#) 2.23 x10 3/uL 0.1-0.8 H EOSINOPHIL # (test code = EO#) 0.02 x10 3/uL 0.0-0.2 N BASOPHIL # (test code = BA#) 0.05 x10 3/uL 0.0-0.2 N NUCLEATED RBC # (test code = NRBC#) 0.04 x10 3/uL 0.0-0.1 N GLUCOSE [id number] 05:09:00* Test Item Value Reference Range Interpretation Comme nts GLUCOSE BEDSIDE (test code = GLUBED) 225 MG/DL 70-110 H Performed by cer tified waxer operator at [facility] GLUCOSE [id number] 04:17:00* Test Item Value Reference Range Interpretation Comme nts GLUCOSE BEDSIDE (test code = GLUBED) 255 MG/DL 70-110 H Performed by linda carter waxer operator at [facility] POC ARTERIAL BLOOD [id number] 04:01:00* Test Item Value Reference Range Interpretation Comme nts POC ARTERIAL BLOOD GAS PH (t est code = POCPHA) 7.443 7.35-7.45 N POC ARTERIAL BLOOD GAS PCO2 (test code = ZNQNTF9Z) 27.0 mmHg 35.0-45 LL POC TCO2 ARTERIAL (test code = POCTCO2) 19.4 POC ARTERIAL BLOOD GAS PO2 ( test code = OESST5S) 88.4 mmHg 80-100.0 N POC HCO3 ARTERIAL (test code = ZLXEPD2E) 18.6 MMOL/L 22.0-26.0 L POC BASE EXCESS (test code = POCBEA) -5.7 MMOL/L -4.0-4.0 L POC O2 SATURATION (test code = POCO2S) 97.5 % 90-100 N FIO2 (test code = FIO2A) 60.0 % PaO2/FiO2 (test code = ENG2FRA6) 147.30 mm/Hg ABG DELIVERY (test code = DELVIN) BiPAP ABG VENT RESP RATE (test cod e = RRA) 18 /MIN ABG TEMPERATURE (test code = TEMPA) 97.7 F ABG SITE (test code = SITEA) Art Line BASIC METABOLIC [id number] 04:01:00* Test Item Value Reference Range Interpretation Comme nts SODIUM (test code = NA/ABG) 129 mmol/L 134-147 L POTASSIUM (test code = K/ABG) 4.3 mmol/L 3.4-5.0 N CHLORIDE (test code = CL/ABG) 101 mmol/L 100-108 N CREATININE ABG (test code = CREAABG) 2.4 mg/dL 0.8-1.3 H POC IONIZED CALCIUM (test co de = POCCA) 1.18 MMOL/L 1.12-1.32 N POC GLUCOSE (test code = POCGLU) 247 MG/DL 70-110 H HEMOGLOBIN [id number] 04:01:00* Test Item Value Reference Range Interpretation Comme nts HEMOGLOBIN ABG (test code = HGB/ABG) 11.0 G/DL 12.5-16.9 L [id number] 04:01:00* Test Item Value Reference Range Interpretation Comme nts HEMATOCRIT (test code = HCT/ABG) 32 % 37.5-50.7 L POC LACTIC [id number] 04:01:00* Test Item Value Reference Range Interpretation Comme nts POC LACTIC ACID (test code = POCLAC) 1.5 mmol/l 0.9-1.7 N GLUCOSE [id number] 03:06:00* Test Item Value Reference Range Interpretation Comme nts GLUCOSE BEDSIDE (test code = GLUBED) 313 MG/DL 70-110 H Performed by cer tified waxer operator at [facility] BASIC METABOLIC [id number] 02:32:00* Test Item Value Reference Range Interpretation Comme nts SODIUM (test code = NA) 129 mEq/L 134-147 L POTASSIUM (test code = K) 5.3 mEq/L 3.4-5.0 H CHLORIDE (test code = CL) 99 mEq/L 100-108 L CARBON DIOXIDE (test code = CO2) 18 mEq/l 21-33 L ANION GAP (test code = GAP) 17 0-20 N GLUCOSE (test code = GLU) 309 mg/dL 77-141 H BLOOD UREA NITROGEN (test code = BUN) 51 mg/dL 7-25 H GLOMERULAR FILTRATION RATE (test code = GFR) 26.1 80-90 L The Glomerular Filtration Rate is a calculated parameterbased on serum Creatinine, patient age and sex. GFR valuesless than 60 mL/min/1.73 square meters are indicative ofChronic Kidney Disease. Values less than 15 mL/min/1.73square meters indicate Kidney failure. The calculation forGFR is based on the CKD-EPI (202) calculation. This formulais race indifferent and is the recommended formula for GFRby the National Kidney Foundation for Adults.The GFR will not calculate if the sex is unknown or if thepatient's age is <18 years. CREATININE (test code = CREAT) 2.6 mg/dL 0.6-1.3 H CALCIUM (test code = CA) 8.6 mg/dL 8.0-10.5 N [id number] 02:32:00* Test Item Value Reference Range Interpretation Comme nts MAGNESIUM (test code = MAG) 2.40 mg/dL 1.6-2.6 N CALCIUM [id number] 02:32:00* Test Item Value Reference Range Interpretation Comme nts CALCIUM IONIZED (test code = CARLOS) 1.16 MMOL/L 1.09-1.30 N GLUCOSE [id number] 22:54:00* Test Item Value Reference Range Interpretation Comme nts GLUCOSE BEDSIDE (test code = GLUBED) 239 MG/DL 70-110 H Performed by cer tified waxer operator at [facility] BASIC METABOLIC [id number] 21:19:00* Test Item Value Reference Range Interpretation Comme nts SODIUM (test code = NA) 129 mEq/L 134-147 L POTASSIUM (test code = K) 5.6 mEq/L 3.4-5.0 H CHLORIDE (test code = CL) 100 mEq/L 100-108 N CARBON DIOXIDE (test code = CO2) 18 mEq/l 21-33 L ANION GAP (test code = GAP) 17 0-20 N GLUCOSE (test code = GLU) 252 mg/dL 77-141 H BLOOD UREA NITROGEN (test code = BUN) 43 mg/dL 7-25 H GLOMERULAR FILTRATION RATE (test code = GFR) 27.3 80-90 L The Glomerular Filtration Rate is a calculated parameterbased on serum Creatinine, patient age and sex. GFR valuesless than 60 mL/min/1.73 square meters are indicative ofChronic Kidney Disease. Values less than 15 mL/min/1.73square meters indicate Kidney failure. The calculation forGFR is based on the CKD-EPI (2020) calculation. This formulais race indifferent and is the recommended formula for GFRby the National Kidney Foundation for Adults.The GFR will not calculate if the sex is unknown or if thepatient's age is <18 years. CREATININE (test code = CREAT) 2.5 mg/dL 0.6-1.3 H CALCIUM (test code = CA) 8.5 mg/dL 8.0-10.5 N [id number] 21:19:00* Test Item Value Reference Range Interpretation Comme nts MAGNESIUM (test code = MAG) 2.42 mg/dL 1.6-2.6 N CALCIUM [id number] 21:19:00* Test Item Value Reference Range Interpretation Comme nts CALCIUM IONIZED (test code = CARLOS) 1.08 MMOL/L 1.09-1.30 L POC ARTERIAL BLOOD [id number] 20:46:00* Test Item Value Reference Range Interpretation Comme nts POC ARTERIAL BLOOD GAS PH (t est code = POCPHA) 7.424 7.35-7.45 N POC ARTERIAL BLOOD GAS PCO2 (test code = ZDGHPT8U) 27.4 mmHg 35.0-45 LL POC TCO2 ARTERIAL (test code = POCTCO2) 18.9 POC ARTERIAL BLOOD GAS PO2 ( test code = QDQIM5Z) 73.6 mmHg 80-100.0 L POC HCO3 ARTERIAL (test code = BFRNRC9L) 18.0 MMOL/L 22.0-26.0 L POC BASE EXCESS (test code = POCBEA) -6.5 MMOL/L -4.0-4.0 L POC O2 SATURATION (test code = POCO2S) 95.6 % 90-100 N FIO2 (test code = FIO2A) 60.0 % PaO2/FiO2 (test code = IMM9FHX0) 122.60 mm/Hg ABG DELIVERY (test code = DELVIN) BiPAP ABG VENT RESP RATE (test cod e = RRA) 18 /MIN ABG TEMPERATURE (test code = TEMPA) 97.6 F ABG SITE (test code = SITEA) Art Line BASIC METABOLIC [id number] 20:46:00* Test Item Value Reference Range Interpretation Comme nts SODIUM (test code = NA/ABG) 129 mmol/L 134-147 L POTASSIUM (test code = K/ABG) 5.7 mmol/L 3.4-5.0 H CHLORIDE (test code = CL/ABG) 101 mmol/L 100-108 N CREATININE ABG (test code = CREAABG) 2.6 mg/dL 0.8-1.3 H POC IONIZED CALCIUM (test co de = POCCA) 1.12 MMOL/L 1.12-1.32 N POC GLUCOSE (test code = POCGLU) 258 MG/DL 70-110 H HEMOGLOBIN [id number] 20:46:00* Test Item Value Reference Range Interpretation Comme nts HEMOGLOBIN ABG (test code = HGB/ABG) 12.1 G/DL 12.5-16.9 L [id number] 20:46:00* Test Item Value Reference Range Interpretation Comme nts HEMATOCRIT (test code = HCT/ABG) 36 % 37.5-50.7 L POC LACTIC [id number] 20:46:00* Test Item Value Reference Range Interpretation Comme nts POC LACTIC ACID (test code = POCLAC) 1.2 mmol/l 0.9-1.7 N GLUCOSE [id number] 20:24:00* Test Item Value Reference Range Interpretation Comme nts GLUCOSE BEDSIDE (test code = GLUBED) 242 MG/DL 70-110 H Performed by cer tified waxer operator at [facility] GLUCOSE [id number] 19:02:00* Test Item Value Reference Range Interpretation Comme nts GLUCOSE BEDSIDE (test code = GLUBED) 204 MG/DL 70-110 H Performed by cer tified waxer operator at [facility] GLUCOSE [id number] 17:06:00* Test Item Value Reference Range Interpretation Comme nts GLUCOSE BEDSIDE (test code = GLUBED) 133 MG/DL 70-110 H Performed by cer tified waxer operator at [facility] GLUCOSE [id number] 15:39:00* Test Item Value Reference Range Interpretation Comme nts GLUCOSE BEDSIDE (test code = GLUBED) 153 MG/DL 70-110 H Performed by cer tified waxer operator at [facility] BASIC METABOLIC [id number] 14:21:00* Test Item Value Reference Range Interpretation Comme nts SODIUM (test code = NA) 131 mEq/L 134-147 L POTASSIUM (test code = K) 5.0 mEq/L 3.4-5.0 N CHLORIDE (test code = CL) 102 mEq/L 100-108 N CARBON DIOXIDE (test code = CO2) 20 mEq/l 21-33 L ANION GAP (test code = GAP) 14 0-20 N GLUCOSE (test code = GLU) 165 mg/dL 77-141 H BLOOD UREA NITROGEN (test code = BUN) 41 mg/dL 7-25 H GLOMERULAR FILTRATION RATE (test code = GFR) 28.7 80-90 L The Glomerular Filtration Rate is a calculated parameterbased on serum Creatinine, patient age and sex. GFR valuesless than 60 mL/min/1.73 square meters are indicative ofChronic Kidney Disease. Values less than 15 mL/min/1.73square meters indicate Kidney failure. The calculation forGFR is based on the CKD-EPI (2020) calculation. This formulais race indifferent and is the recommended formula for GFRby the National Kidney Foundation for Adults.The GFR will not calculate if the sex is unknown or if thepatient's age is <18 years. CREATININE (test code = CREAT) 2.4 mg/dL 0.6-1.3 H CALCIUM (test code = CA) 9.7 mg/dL 8.0-10.5 N GLUCOSE [id number] 13:59:00* Test Item Value Reference Range Interpretation Comme [facility] GLUCOSE BEDSIDE (test code = GLUBED) 165 MG/DL 70-110 H Performed by cer raul waxer operator at [facility] POC ARTERIAL BLOOD [id number] 12:50:00* Test Item Value Reference Range Interpretation Comme nts POC ARTERIAL BLOOD GAS PH (t est code = POCPHA) 7.386 7.35-7.45 N POC ARTERIAL BLOOD GAS PCO2 (test code = [id number]) 29.9 mmHg 35.0-45 LL POC TCO2 ARTERIAL (test code = POCTCO2) 18.8 POC ARTERIAL BLOOD GAS PO2 ( test code = ZQBRU3I) 88.5 mmHg 80-100.0 N POC HCO3 ARTERIAL (test code = TVUUNR9Z) 17.9 MMOL/L 22.0-26.0 LL POC BASE EXCESS (test code = POCBEA) -7.1 MMOL/L -4.0-4.0 L POC O2 SATURATION (test code = POCO2S) 96.8 % 90-100 N FIO2 (test code = FIO2A) 60.0 % PaO2/FiO2 (test code = ZHV9PAB2) 147.50 mm/Hg ABG DELIVERY (test code = DELVIN) BiPAP ABG SITE (test code = SITEA) L Radial BASIC METABOLIC [id number] 12:50:00* Test Item Value Reference Range Interpretation Comme nts SODIUM (test code = NA/ABG) 129 mmol/L 134-147 L POTASSIUM (test code = K/ABG) 5.3 mmol/L 3.4-5.0 H CHLORIDE (test code = CL/ABG) 103 mmol/L 100-108 N CREATININE ABG (test code = CREAABG) 2.2 mg/dL 0.8-1.3 H POC IONIZED CALCIUM (test co de = POCCA) 1.13 MMOL/L 1.12-1.32 N POC GLUCOSE (test code = POCGLU) 171 MG/DL 70-110 H HEMOGLOBIN [id number] 12:50:00* Test Item Value Reference Range Interpretation Comme nts HEMOGLOBIN ABG (test code = HGB/ABG) 12.4 G/DL 12.5-16.9 L [id number] 12:50:00* Test Item Value Reference Range Interpretation Comme nts HEMATOCRIT (test code = HCT/ABG) 36 % 37.5-50.7 L POC LACTIC [id number] 12:50:00* Test Item Value Reference Range Interpretation Comme nts POC LACTIC ACID (test code = POCLAC) 1.1 mmol/l 0.9-1.7 N GLUCOSE [id number] 12:08:00* Test Item Value Reference Range Interpretation Comme nts GLUCOSE BEDSIDE (test code = GLUBED) 181 MG/DL 70-110 H Performed by cer tified waxer operator at [facility] LACTIC [id number] 10:44:00* Test Item Value Reference Range Interpretation Comme nts LACTIC ACID (test code = LACT) 1.5 mmol/L 0.4-1.9 N POC ARTERIAL BLOOD [id number] 09:41:00* Test Item Value Reference Range Interpretation Comme nts POC ARTERIAL BLOOD GAS PH (t est code = POCPHA) 7.383 7.35-7.45 N POC ARTERIAL BLOOD GAS PCO2 (test code = QZSFNL7P) 29.5 mmHg 35.0-45 LL POC TCO2 ARTERIAL (test code = POCTCO2) 18.5 POC ARTERIAL BLOOD GAS PO2 ( test code = JGRAW8J) 86.3 mmHg 80-100.0 N POC HCO3 ARTERIAL (test code = AVXNNI3Z) 17.6 MMOL/L 22.0-26.0 LL POC BASE EXCESS (test code = POCBEA) -7.5 MMOL/L -4.0-4.0 L POC O2 SATURATION (test code = POCO2S) 96.6 % 90-100 N BASIC METABOLIC [id number] 09:41:00* Test Item Value Reference Range Interpretation Comme nts SODIUM (test code = NA/ABG) 129 mmol/L 134-147 L POTASSIUM (test code = K/ABG) 5.4 mmol/L 3.4-5.0 H CHLORIDE (test code = CL/ABG) 99 mmol/L 100-108 L CREATININE ABG (test code = CREAABG) 2.2 mg/dL 0.8-1.3 H POC IONIZED CALCIUM (test co de = POCCA) 1.14 MMOL/L 1.12-1.32 N POC GLUCOSE (test code = POCGLU) 212 MG/DL 70-110 H HEMOGLOBIN [id number] 09:41:00* Test Item Value Reference Range Interpretation Comme nts HEMOGLOBIN ABG (test code = HGB/ABG) 11.7 G/DL 12.5-16.9 L [id number] 09:41:00* Test Item Value Reference Range Interpretation Comme nts HEMATOCRIT (test code = HCT/ABG) 35 % 37.5-50.7 L POC LACTIC [id number] 09:41:00* Test Item Value Reference Range Interpretation Comme nts POC LACTIC ACID (test code = POCLAC) 1.3 mmol/l 0.9-1.7 N - XR CHEST 1 [id number] 07:53:00 [facility] : 1955 Sex: M FAX: Kimmie Bacon MD [phone] [place]: St: ADM FAX: Nathaniel Shirley MD [phone] FAX: Eleonora Mai MD [phone] Name: [facility]INDY [facility] EDJuju Lao : 1955 Age/S: 67/M [address] [place] [address] Bl Unit #: [id number] Loc: [address] [address] Phys: Nathaniel Martel MD Acct: [id number] Dis Date: Status: ADM IN PHONE #: [phone] Exam Date: 06/13/2023728 FAX #: [phone] Reason: Cardiac Surgery Post Op EXAMS: CPT CODE: [id number] XR CHEST 1 V 44565 Location: C3 EXAM: - XR CHEST 1 V INDICATION: Cardiac Surgery Post Op COMPARISON: 06/12/2023 TECHNIQUE: AP Chest FINDINGS: Lines, tubesand hardware: Median sternotomy wires again noted. Right-sided [place] catheter tip overlies the expected location of the main pulmonary artery. Approximately unchanged left-sided chest tube. Lungsand pleura: Approximately similar appearance of bilateral perihilar and lower lobe opacities, left slightly greater than right. No large pleural effusion. No appreciable pneumothorax. Heart/mediastinum: The cardiomediastinal silhouette is stable. Bones/soft tissues: No acute bony abnormality. IMPRE SSION: 1. Lines and tubes, as above. 2. Otherwise, no significant interval change. at 0753 Reported and signed by: Nicolas Farmer M.D. CC: Kimmie Bacon MD; Nathaniel Martel MD; Eleonora Mai MD Technologist: Carli Baker RT(R); RT Justen(R) Trnnhrd Date/Time/By: 06/13/2023 (0753) : By: [email or web address] Orig Print D/T: S: 06/13/2023 (0756) PAGE 1 Signed ReportN[facility] ART[facility]LO[facility] GAS 2023-06-13 07:27:00* Test Item Value Reference Range Interpretation Comme nts POC ARTERIAL BLOOD GAS PH (t est code = POCPHA) 7.419 7.35-7.45 N POC ARTERIAL BLOOD GAS PCO2 (test code = CKFFBH8U) 26.9 mmHg 35.0-45 LL POC TCO2 ARTERIAL (test code = POCTCO2) 18.3 POC ARTERIAL BLOOD GAS PO2 ( test code = SNZAP2Q) 84.5 mmHg 80-100.0 N POC HCO3 ARTERIAL (test code = IYOIVA0X) 17.4 MMOL/L 22.0-26.0 LL POC BASE EXCESS (test code = POCBEA) -7.1 MMOL/L -4.0-4.0 L POC O2 SATURATION (test code = POCO2S) 96.8 % 90-100 N FIO2 (test code = FIO2A) 60 % PaO2/FiO2 (test code = RNP5INK9) 140.83 mm/Hg ABG DELIVERY (test code = DELVIN) BiPAP ABG SITE (test code = SITEA) L Radial BASIC METABOLIC [id number] 07:27:00* Test Item Value Reference Range Interpretation Comme nts SODIUM (test code = NA/ABG) 128 mmol/L 134-147 L POTASSIUM (test code = K/ABG) 5.6 mmol/L 3.4-5.0 H CHLORIDE (test code = CL/ABG) 105 mmol/L 100-108 N CREATININE ABG (test code = CREAABG) 2.2 mg/dL 0.8-1.3 H POC IONIZED CALCIUM (test co de = POCCA) 1.04 MMOL/L 1.12-1.32 L POC GLUCOSE (test code = POCGLU) 235 MG/DL 70-110 H HEMOGLOBIN [id number] 07:27:00* Test Item Value Reference Range Interpretation Comme nts HEMOGLOBIN ABG (test code = HGB/ABG) 11.4 G/DL 12.5-16.9 L [id number] 07:27:00* Test Item Value Reference Range Interpretation Comme nts HEMATOCRIT (test code = HCT/ABG) 34 % 37.5-50.7 L POC LACTIC [id number] 07:27:00* Test Item Value Reference Range Interpretation Comme nts POC LACTIC ACID (test code = POCLAC) 1.3 mmol/l 0.9-1.7 N BASIC METABOLIC [id number] 07:18:00* Test Item Value Reference Range Interpretation Comme nts SODIUM (test code = NA/ABG) 131 mmol/L 134-147 L POTASSIUM (test code = K/ABG) 5.0 mmol/L 3.4-5.0 N CHLORIDE (test code = CL/ABG) 99 mmol/L 100-108 L CREATININE ABG (test code = CREAABG) 2.0 mg/dL 0.8-1.3 H POC IONIZED CALCIUM (test co de = POCCA) 1.17 MMOL/L 1.12-1.32 N POC GLUCOSE (test code = POCGLU) 162 MG/DL 70-110 H HEMOGLOBIN [id number] 07:18:00* Test Item Value Reference Range Interpretation Comme nts HEMOGLOBIN ABG (test code = HGB/ABG) 11.3 G/DL 12.5-16.9 L [id number] 07:18:00* Test Item Value Reference Range Interpretation Comme nts HEMATOCRIT (test code = HCT/ABG) 33 % 37.5-50.7 L POC LACTIC [id number] 07:18:00* Test Item Value Reference Range Interpretation Comme nts POC LACTIC ACID (test code = POCLAC) 0.6 mmol/l 0.9-1.7 L POC VENOUS BLOOD [id number] 07:18:00* Test Item Value Reference Range Interpretation Comme nts POC VENOUS BLOOD GAS PH (maurice t code = POCPHV) 7.360 7.33-7.45 N POC VENOUS BLOOD GAS PCO2 (t est code = YDIRGZ2F) 37.3 mmHg 43-47 L POC VENOUS BLOOD GAS PO2 (te st code = ZZNSQ4E) 32.7 mmHG 10-50 N POC TCO2 VENOUS (test code = SJZVTC7P) 22.2 POC HCO3 VENOUS (test code = UBLQQN1S) 21.1 MMOL/L 22-27 L POC BASE EXCESS VENOUS (test code = POCBEV) -4.3 MMOL/L -4.0-4.0 L POC O2 SATURATION VENOUS (te st code = MYTB5KS) 61.0 % 60-80 N VENOUS BLOOD GAS DELIVERY (t est code = DELV) Cannula VENOUS BLOOD GAS TEMP (test code = TEMPV) 98 F VENOUS BLOOD GAS SITE (test code = SITEV) PA CBC W/AUTO [id number] 05:19:00* Test Item Value Reference Range Interpretation Comme nts WHITE BLOOD CELL (test code = WBC) 25.0 x10 3/uL 4.5-11.0 H RED BLOOD CELL (test code = RBC) 3.38 x10 6/uL 4.00-5.60 L HEMOGLOBIN (test code = HGB) 10.3 g/dL 12.5-16.9 L HEMATOCRIT (test code = HCT) 31.6 % 37.5-50.7 L MEAN CELL VOLUME (test code = MCV) 93.5 fL 81.0-99.0 N MEAN CELL HGB (test code = MCH) 30.5 pg 27.0-33.0 N MEAN CELL HGB CONCETRATION (test code = MCHC) 32.6 g/dL 33.0-37.0 L RED CELL DISTRIBUTION WIDTH CV (test code = RDW) 14.1 % 11.5-14.5 N RED CELL DISTRIBUTION WIDTH SD (test code = RDW-SD) 47.5 fL 37.0-54.0 N PLATELET COUNT (test code = PLT) 152 x10 3/uL 150-400 N IMMATURE PLATELET FRACTION (test code = IPF) 11.2 % 0.9-11.2 N MEAN PLATELET VOLUME (test code = MPV) 12.9 fL 7.0-9.0 H NEUTROPHIL % (test code = NT%) 85.4 % 56.0-77.0 H IMMATURE GRANULOCYTE % (test code = IG%) 0.9 % 0.0-2.0 N LYMPHOCYTE % (test code = LY%) 3.0 % 14.0-32.0 L MONOCYTE % (test code = MO%) 10.6 % 4.8-9.0 H EOSINOPHIL % (test code = EO%) 0.0 % 0.3-3.7 L BASOPHIL % (test code = BA%) 0.1 % 0.0-2.0 N NUCLEATED RBC % (test code = NRBC%) 0.0 % 0-0 N NEUTROPHIL # (test code = NT#) 21.31 x10 3/uL 2.0-7.6 H IMMATURE GRANULOCYTE # (test code = IG#) 0.23 x10 3/uL 0.00-0.03 H LYMPHOCYTE # (test code = LY#) 0.74 x10 3/uL 1.0-3.8 L MONOCYTE # (test code = MO#) 2.64 x10 3/uL 0.1-0.8 H EOSINOPHIL # (test code = EO#) 0.01 x10 3/uL 0.0-0.2 N BASOPHIL # (test code = BA#) 0.03 x10 3/uL 0.0-0.2 N NUCLEATED RBC # (test code = NRBC#) 0.00 x10 3/uL 0.0-0.1 N BASIC METABOLIC [id number] 03:59:00* Test Item Value Reference Range Interpretation Comme nts SODIUM (test code = NA) 131 mEq/L 134-147 L POTASSIUM (test code = K) 4.9 mEq/L 3.4-5.0 N CHLORIDE (test code = CL) 101 mEq/L 100-108 N CARBON DIOXIDE (test code = CO2) 19 mEq/l 21-33 L ANION GAP (test code = GAP) 16 0-20 N GLUCOSE (test code = GLU) 170 mg/dL 77-141 H BLOOD UREA NITROGEN (test code = BUN) 33 mg/dL 7-25 H GLOMERULAR FILTRATION RATE (test code = GFR) 35.7 80-90 L The Glomerular Filtration Rate is a calculated parameterbased on serum Creatinine, patient age and sex. GFR valuesless than 60 mL/min/1.73 square meters are indicative ofChronic Kidney Disease. Values less than 15 mL/min/1.73square meters indicate Kidney failure. The calculation forGFR is based on the CKD-EPI (202) calculation. This formulais race indifferent and is the recommended formula for GFRby the National Kidney Foundation for Adults.The GFR will not calculate if the sex is unknown or if thepatient's age is <18 years. CREATININE (test code = CREAT) 2.0 mg/dL 0.6-1.3 H CALCIUM (test code = CA) 9.1 mg/dL 8.0-10.5 N COMMENTS: POD #1HEPATIC FUNCTION [id number] 03:59:00* Test Item Value Reference Range Interpretation Comme nts TOTAL PROTEIN (test code = PROT) 6.1 g/dL 6.4-8.2 L ALBUMIN (test code = ALB) 3.40 g/dL 3.4-5.0 N BILIRUBIN TOTAL (test code = BILT) 0.60 mg/dL 0.0-1.0 BILIRUBIN DIRECT (test code = BILD) 0.30 MG/DL 0.1-0.3 BILIRUBIN INDIRECT (test cod e = BILIND) 0.30 MG/DL SGOT/AST (test code = AST) 37 IUnit/L 8-34 H SGPT/ALT (test code = ALT) 12 IUnit/L 10-49 ALKALINE PHOSPHATASE TOTAL ( test code = ALKP) 73 IUnit/L 20-125 N COMMENTS: POD #[id number] 03:59:00* Test Item Value Reference Range Interpretation Comme nts MAGNESIUM (test code = MAG) 2.46 mg/dL 1.6-2.6 N COMMENTS: POD #1POC ARTERIAL BLOOD [id number] 03:23:00* Test Item Value Reference Range Interpretation Comme nts POC ARTERIAL BLOOD GAS PH (t est code = POCPHA) 7.374 7.35-7.45 N POC ARTERIAL BLOOD GAS PCO2 (test code = LTQMFI2O) 32.4 mmHg 35.0-45 L POC TCO2 ARTERIAL (test code = POCTCO2) 19.9 POC ARTERIAL BLOOD GAS PO2 ( test code = FGWXL2W) 90.5 mmHg 80-100.0 N POC HCO3 ARTERIAL (test code = ARPTSK6P) 18.9 MMOL/L 22.0-26.0 L POC BASE EXCESS (test code = POCBEA) -6.3 MMOL/L -4.0-4.0 L POC O2 SATURATION (test code = POCO2S) 96.9 % 90-100 N FIO2 (test code = FIO2A) 60 % PaO2/FiO2 (test code = KLH8XDG3) 150.83 mm/Hg ABG DELIVERY (test code = DELVIN) BiPAP ABG TEMPERATURE (test code = TEMPA) 98 F ABG SITE (test code = SITEA) Art Line BASIC METABOLIC [id number] 03:23:00* Test Item Value Reference Range Interpretation Comme nts SODIUM (test code = NA/ABG) 130 mmol/L 134-147 L POTASSIUM (test code = K/ABG) 5.0 mmol/L 3.4-5.0 N CHLORIDE (test code = CL/ABG) 102 mmol/L 100-108 N CREATININE ABG (test code = CREAABG) 1.9 mg/dL 0.8-1.3 H POC IONIZED CALCIUM (test co de = POCCA) 1.18 MMOL/L 1.12-1.32 N POC GLUCOSE (test code = POCGLU) 162 MG/DL 70-110 H HEMOGLOBIN [id number] 03:23:00* Test Item Value Reference Range Interpretation Comme nts HEMOGLOBIN ABG (test code = HGB/ABG) 10.7 G/DL 12.5-16.9 L [id number] 03:23:00* Test Item Value Reference Range Interpretation Comme nts HEMATOCRIT (test code = HCT/ABG) 32 % 37.5-50.7 L POC LACTIC [id number] 03:23:00* Test Item Value Reference Range Interpretation Comme nts POC LACTIC ACID (test code = POCLAC) 0.9 mmol/l 0.9-1.7 N GLUCOSE [id number] 01:10:00* Test Item Value Reference Range Interpretation Comme nts GLUCOSE BEDSIDE (test code = GLUBED) 160 MG/DL 70-110 H Performed by cer tified waxer operator at [facility] BASIC METABOLIC [id number] 22:54:00* Test Item Value Reference Range Interpretation Comme nts SODIUM (test code = NA) 131 mEq/L 134-147 L POTASSIUM (test code = K) 4.4 mEq/L 3.4-5.0 N CHLORIDE (test code = CL) 102 mEq/L 100-108 N CARBON DIOXIDE (test code = CO2) 20 mEq/l 21-33 L ANION GAP (test code = GAP) 13 0-20 N GLUCOSE (test code = GLU) 212 mg/dL 77-141 H BLOOD UREA NITROGEN (test code = BUN) 32 mg/dL 7-25 H GLOMERULAR FILTRATION RATE (test code = GFR) 43.4 80-90 L The Glomerular Filtration Rate is a calculated parameterbased on serum Creatinine, patient age and sex. GFR valuesless than 60 mL/min/1.73 square meters are indicative ofChronic Kidney Disease. Values less than 15 mL/min/1.73square meters indicate Kidney failure. The calculation forGFR is based on the CKD-EPI (2020) calculation. This formulais race indifferent and is the recommended formula for GFRby the National Kidney Foundation for Adults.The GFR will not calculate if the sex is unknown or if thepatient's age is <18 years. CREATININE (test code = CREAT) 1.7 mg/dL 0.6-1.3 H CALCIUM (test code = CA) 8.9 mg/dL 8.0-10.5 N GLUCOSE [id number] 21:41:00* Test Item Value Reference Range Interpretation Comme nts GLUCOSE BEDSIDE (test code = GLUBED) 185 MG/DL 70-110 H Performed by [facility] tified waxer operator at [facility] GLUCOSE [id number] 18:44:00* Test Item Value Reference Range Interpretation Comme nts GLUCOSE BEDSIDE (test code = GLUBED) 319 MG/DL 70-110 H Performed by [facility] [employer] waxer operator at [facility] GLUCOSE [id number] 16:43:00* Test Item Value Reference Range Interpretation Comme nts GLUCOSE BEDSIDE (test code = GLUBED) 336 MG/DL 70-110 H Performed by [facility] tified waxer operator at [facility] GLUCOSE [id number] 15:21:00* Test Item Value Reference Range Interpretation Comme nts GLUCOSE BEDSIDE (test code = GLUBED) 356 MG/DL 70-110 H Performed by [facility] tified waxer operator at [facility] GLUCOSE [id number] 14:09:00* Test Item Value Reference Range Interpretation Comme nts GLUCOSE BEDSIDE (test code = GLUBED) 352 MG/DL 70-110 H Performed by [facility] [employer] waxer operator at [facility] GLUCOSE [id number] 11:56:00* Test Item Value Reference Range Interpretation Comme nts GLUCOSE BEDSIDE (test code = GLUBED) 293 MG/DL 70-110 H Performed by [facility] [employer] waxer operator at [facility] - XR CHEST 1 [id number] 08:52:00 [facility] 1955 Sex: M FAX: Nathaniel Shirley MD [phone] [place]: St: ADM FAX: Eleonora Mai MD [phone] FAX:Denise Montejo MD Name: MINDY CARTER [facility] : 1955 Age/S: 67/M [address] [place] [address] Blvd Unit #: [id number] Loc: G.2202 [place] [address] Phys: Nathaniel Martel MD Acct: [id number] Dis Date: Status: ADM IN PHONE #: [phone] Exam Date: 06/12/2023 0832 FAX #: [phone] Reason: Cardiac Surg gina Post Op EXAMS: CPT CODE: [id number] XR CHEST 1 V [id number] CLINICAL HISTORY: Cardiac Surgery Post Op. LOCATION: A1 FINDINGS: Comparison is made with a previous study dated June 11, 2023. A portable AP view of the chest is dated 06/12/2023 7:00 AM. There is stable moderate cardiomegaly. Endotrachealtube has been removed. No other change in tubes or lines. There is pulmonary vascular congestion and mild diffuse interstitial prominence. There is moderate infiltrate at the left lower lung as well as mild infiltrate at the left midlung and diffuse mild infiltrates within the right lung. No definite pleural effusions. Skeletal structures and soft tissues appear stable. IMPRESSION: 1. Status postendotracheal tube removal. No other significant change. at 0852 Reported and signed by: Irwin Aaron M.D. CC: Nathaniel Martel MD; Eleonora Mai MD; Denise Montejo MD Technologist: Arabella Diaz, RT(R); Carli Baker, RT(R) Trnscrd Date/Time/By: 06/12/2023 (0852) : By: [email or web address] Orig Print D/T: S: 06/12/2023 (1051) PAGE1 Signed ReportPO ARTERIAL BLOOD [id number] 06:46:00* Test Item Value Reference Range Interpretation Comme nts POC ARTERIAL BLOOD GAS PH (t est code = POCPHA) 7.361 7.35-7.45 N POC ARTERIAL BLOOD GAS PCO2 (test code = LYDCNB9C) 34.9 mmHg 35.0-45 L POC TCO2 ARTERIAL (test code = POCTCO2) 21.0 POC ARTERIAL BLOOD GAS PO2 ( test code = JUAOF2R) 80.1 mmHg 80-100.0 N POC HCO3 ARTERIAL (test code = JGOYWI8S) 19.9 MMOL/L 22.0-26.0 L POC BASE EXCESS (test code = POCBEA) -5.6 MMOL/L -4.0-4.0 L POC O2 SATURATION (test code = POCO2S) 95.6 % 90-100 N ABG DELIVERY (test code = DELVIN) 12L HFNC ABG TEMPERATURE (test code = TEMPA) 98 F ABG SITE (test code = SITEA) Art Line BASIC METABOLIC [id number] 06:46:00* Test Item Value Reference Range Interpretation Comme nts SODIUM (test code = NA/ABG) 136 mmol/L 134-147 N POTASSIUM (test code = K/ABG) 4.2 mmol/L 3.4-5.0 N CHLORIDE (test code = CL/ABG) 107 mmol/L 100-108 N CREATININE ABG (test code = CREAABG) 1.1 mg/dL 0.8-1.3 N POC IONIZED CALCIUM (test co de = POCCA) 1.23 MMOL/L 1.12-1.32 N POC GLUCOSE (test code = POCGLU) 228 MG/DL 70-110 H HEMOGLOBIN [id number] 06:46:00* Test Item Value Reference Range Interpretation Comme nts HEMOGLOBIN ABG (test code = HGB/ABG) 10.6 G/DL 12.5-16.9 L [id number] 06:46:00* Test Item Value Reference Range Interpretation Comme nts HEMATOCRIT (test code = HCT/ABG) 31 % 37.5-50.7 L POC LACTIC [id number] 06:46:00* Test Item Value Reference Range Interpretation Comme nts POC LACTIC ACID (test code = POCLAC) 1.5 mmol/l 0.9-1.7 N BASIC METABOLIC [id number] 04:12:00* Test Item Value Reference Range Interpretation Comme nts SODIUM (test code = NA/ABG) 139 mmol/L 134-147 N POTASSIUM (test code = K/ABG) 4.2 mmol/L 3.4-5.0 N CHLORIDE (test code = CL/ABG) 106 mmol/L 100-108 N CREATININE ABG (test code = CREAABG) 1.1 mg/dL 0.8-1.3 N POC IONIZED CALCIUM (test co de = POCCA) 1.31 MMOL/L 1.12-1.32 N POC GLUCOSE (test code = POCGLU) 208 MG/DL 70-110 H HEMOGLOBIN [id number] 04:12:00* Test Item Value Reference Range Interpretation Comme nts HEMOGLOBIN ABG (test code = HGB/ABG) 11.4 G/DL 12.5-16.9 L [id number] 04:12:00* Test Item Value Reference Range Interpretation Comme nts HEMATOCRIT (test code = HCT/ABG) 33 % 37.5-50.7 L POC LACTIC [id number] 04:12:00* Test Item Value Reference Range Interpretation Comme nts POC LACTIC ACID (test code = POCLAC) 1.7 mmol/l 0.9-1.7 N POC VENOUS BLOOD [id number] 04:12:00* Test Item Value Reference Range Interpretation Comme nts POC VENOUS BLOOD GAS PH (maurice t code = POCPHV) 7.322 7.33-7.45 L POC VENOUS BLOOD GAS PCO2 (t est code = ZWTYUJ0E) 44.0 mmHg 43-47 N POC VENOUS BLOOD GAS PO2 (te st code = NFZOF2P) 45.0 mmHG 10-50 N POC TCO2 VENOUS (test code = TYIAGM7F) 24.1 POC HCO3 VENOUS (test code = AKQVDQ8E) 22.8 MMOL/L 22-27 N POC BASE EXCESS VENOUS (test code = POCBEV) -3.3 MMOL/L -4.0-4.0 N POC O2 SATURATION VENOUS (te st code = QVKL1JC) 77.0 % 60-80 N VENOUS BLOOD GAS FIO2 (test code = FIO2V) 60.0 % VENOUS BLOOD GAS DELIVERY (t est code = DELV) BiPAP VENOUS BLOOD GAS PEEP (test code = PEEPV) 6 cmH2O PRESSURE SUPPORT (test code = PSV) 12 cmH2O VENOUS BLOOD GAS SITE (test code = SITEV) PA PROTHROMBIN [id number] 02:50:00* Test Item Value Reference Range Interpretation Comme nts PROTHROMBIN TIME PATIENT (test code = PTP) 13.2 SECONDS 9.3-12.9 H INTERNATIONAL NORMAL RATIO (test code = INR) 1.2 0.8-1.2 N TARGET INR BY INDICATION Indication INR1. Prophylaxis of venous thrombosis 2.0 - 3.0 (orthopedic surgery), Prophylaxis of venous thrombosis (other than high-risk surgery), Treatment of Deep Vein Thrombosis/Pulmonary Embolism, Prevention of systemic embolism - Tissue heart valves, Acute Myocardial Infarction (to prevent systemic embolism), Valvular heart disease, Atrial Fibrillation, Bileaflet mechanical valve in aortic position.2. Mechanical prosthetic valves (high risk), 2.5 - 3.5 Presence of Lupus Anticoagulant or Antiphospholipid Antibodies, Prevention of systemic embolism - Acute Myocardial Infarction (to prevent recurrent infarct). THROMBOPLASTIN TIME [id number] 02:50:00* Test Item Value Reference Range Interpretation Comme nts THROMBOPLASTIN TIME PARTIAL (test code = PTT) 31.2 Seconds 25.0-39.5 N Therapeutic Rang e: 50.4 - 88.3 Seconds Effective 07/12/2018 POC ARTERIAL BLOOD [id number] 02:49:00* Test Item Value Reference Range Interpretation Comme nts POC ARTERIAL BLOOD GAS PH (t est code = POCPHA) 7.349 7.35-7.45 L POC ARTERIAL BLOOD GAS PCO2 (test code = [id number]) 40.2 mmHg 35.0-45 N POC TCO2 ARTERIAL (test code = POCTCO2) 23.4 POC ARTERIAL BLOOD GAS PO2 ( test code = [id number]) 112.5 mmHg 80-100.0 H POC HCO3 ARTERIAL (test code = ATIICB8H) 22.1 MMOL/L 22.0-26.0 N POC BASE EXCESS (test code = POCBEA) -3.5 MMOL/L -4.0-4.0 N POC O2 SATURATION (test code = POCO2S) 98.2 % 90-100 N FIO2 (test code = FIO2A) 60 % PaO2/FiO2 (test code = [id number]) 187.50 mm/Hg ABG DELIVERY (test code = DELVIN) BiPAP ABG PEEP (test code = PEEPA) 5 cmH2O ABG PRESSURE SUPPORT (test c ode = PSABG) 12 cmH2O ABG TEMPERATURE (test code = TEMPA) 97.5 F ABG SITE (test code = SITEA) Art Line BASIC METABOLIC [id number] 02:49:00* Test Item Value Reference Range Interpretation Comme nts SODIUM (test code = NA/ABG) 139 mmol/L 134-147 N POTASSIUM (test code = K/ABG) 4.1 mmol/L 3.4-5.0 N CHLORIDE (test code = CL/ABG) 108 mmol/L 100-108 N CREATININE ABG (test code = CREAABG) 1.2 mg/dL 0.8-1.3 N POC IONIZED CALCIUM (test co de = POCCA) 1.33 MMOL/L 1.12-1.32 H POC GLUCOSE (test code = POCGLU) 223 MG/DL 70-110 H HEMOGLOBIN [id number] 02:49:00* Test Item Value Reference Range Interpretation Comme nts HEMOGLOBIN ABG (test code = HGB/ABG) 10.6 G/DL 12.5-16.9 L [id number] 02:49:00* Test Item Value Reference Range Interpretation Comme nts HEMATOCRIT (test code = HCT/ABG) 31 % 37.5-50.7 L POC LACTIC [id number] 02:49:00* Test Item Value Reference Range Interpretation Comme nts POC LACTIC ACID (test code = POCLAC) 1.7 mmol/l 0.9-1.7 N BASIC METABOLIC [id number] 02:48:00* Test Item Value Reference Range Interpretation Comme nts SODIUM (test code = NA) 138 mEq/L 134-147 N POTASSIUM (test code = K) 4.1 mEq/L 3.4-5.0 N CHLORIDE (test code = CL) 107 mEq/L 100-108 N CARBON DIOXIDE (test code = CO2) 21 mEq/l 21-33 N ANION GAP (test code = GAP) 14 0-20 N GLUCOSE (test code = GLU) 238 mg/dL 77-141 H BLOOD UREA NITROGEN (test code = BUN) 20 mg/dL 7-25 N GLOMERULAR FILTRATION RATE (test code = GFR) 59.8 80-90 L The Glomerular Filtration Rate is a calculated parameterbased on serum Creatinine, patient age and sex. GFR valuesless than 60 mL/min/1.73 square meters are indicative ofChronic Kidney Disease. Values less than 15 mL/min/1.73square meters indicate Kidney failure. The calculation forGFR is based on the CKD-EPI (202) calculation. This formulais race indifferent and is the recommended formula for GFRby the National Kidney Foundation for Adults.The GFR will not calculate if the sex is unknown or if thepatient's age is <18 years. CREATININE (test code = CREAT) 1.3 mg/dL 0.6-1.3 N CALCIUM (test code = CA) 9.4 mg/dL 8.0-10.5 N COMMENTS: POD #1HEPATIC FUNCTION [id number] 02:48:00* Test Item Value Reference Range Interpretation Comme nts TOTAL PROTEIN (test code = PROT) 5.5 g/dL 6.4-8.2 L ALBUMIN (test code = ALB) 3.10 g/dL 3.4-5.0 L BILIRUBIN TOTAL (test code = BILT) 1.40 mg/dL 0.0-1.0 H BILIRUBIN DIRECT (test code = BILD) 0.70 MG/DL 0.1-0.3 H BILIRUBIN INDIRECT (test cod e = BILIND) 0.70 MG/DL SGOT/AST (test code = AST) 52 IUnit/L 8-34 H SGPT/ALT (test code = ALT) 26 IUnit/L 10-49 N ALKALINE PHOSPHATASE TOTAL ( test code = ALKP) 74 IUnit/L 20-125 N COMMENTS: POD #[id number] 02:48:00* Test Item Value Reference Range Interpretation Comme nts MAGNESIUM (test code = MAG) 2.41 mg/dL 1.6-2.6 N COMMENTS: POD #1CBC W/AUTO [id number] 02:31:00* Test Item Value Reference Range Interpretation Comme nts WHITE BLOOD CELL (test code = WBC) 27.6 x10 3/uL 4.5-11.0 H RED BLOOD CELL (test code = RBC) 3.31 x10 6/uL 4.00-5.60 L HEMOGLOBIN (test code = HGB) 10.1 g/dL 12.5-16.9 L HEMATOCRIT (test code = HCT) 30.3 % 37.5-50.7 L MEAN CELL VOLUME (test code = MCV) 91.5 fL 81.0-99.0 N MEAN CELL HGB (test code = MCH) 30.5 pg 27.0-33.0 N MEAN CELL HGB CONCETRATION (test code = MCHC) 33.3 g/dL 33.0-37.0 N RED CELL DISTRIBUTION WIDTH CV (test code = RDW) 13.2 % 11.5-14.5 N RED CELL DISTRIBUTION WIDTH SD (test code = RDW-SD) 43.9 fL 37.0-54.0 N PLATELET COUNT (test code = PLT) 210 x10 3/uL 150-400 N MEAN PLATELET VOLUME (test code = MPV) 12.0 fL 7.0-9.0 H NEUTROPHIL % (test code = NT%) 87.9 % 56.0-77.0 H IMMATURE GRANULOCYTE % (test code = IG%) 1.6 % 0.0-2.0 N LYMPHOCYTE % (test code = LY%) 2.1 % 14.0-32.0 L MONOCYTE % (test code = MO%) 8.0 % 4.8-9.0 N EOSINOPHIL % (test code = EO%) 0.1 % 0.3-3.7 L BASOPHIL % (test code = BA%) 0.3 % 0.0-2.0 N NUCLEATED RBC % (test code = NRBC%) 0.0 % 0-0 N NEUTROPHIL # (test code = NT#) 24.24 x10 3/uL 2.0-7.6 H IMMATURE GRANULOCYTE # (test code = IG#) 0.44 x10 3/uL 0.00-0.03 H LYMPHOCYTE # (test code = LY#) 0.57 x10 3/uL 1.0-3.8 L MONOCYTE # (test code = MO#) 2.20 x10 3/uL 0.1-0.8 H EOSINOPHIL # (test code = EO#) 0.02 x10 3/uL 0.0-0.2 N BASOPHIL # (test code = BA#) 0.08 x10 3/uL 0.0-0.2 N NUCLEATED RBC # (test code = NRBC#) 0.00 x10 3/uL 0.0-0.1 N GLUCOSE [id number] 00:03:00* Test Item Value Reference Range Interpretation Comme nts GLUCOSE BEDSIDE (test code = GLUBED) 275 MG/DL 70-110 H Performed by linda carter waxer operator at [facility] POC ARTERIAL BLOOD [id number] 23:30:00* Test Item Value Reference Range Interpretation Comme nts POC ARTERIAL BLOOD GAS PH (t est code = POCPHA) 7.367 7.35-7.45 N POC ARTERIAL BLOOD GAS PCO2 (test code = JBPJMV0W) 37.0 mmHg 35.0-45 N POC TCO2 ARTERIAL (test code = POCTCO2) 22.4 POC ARTERIAL BLOOD GAS PO2 ( test code = QYVWB9S) 66.0 mmHg 80-100.0 L POC HCO3 ARTERIAL (test code = SAOQGW3Z) 21.2 MMOL/L 22.0-26.0 L POC BASE EXCESS (test code = POCBEA) -4.1 MMOL/L -4.0-4.0 L POC O2 SATURATION (test code = POCO2S) 92.2 % 90-100 N ABG DELIVERY (test code = DELVIN) Cannula ABG TEMPERATURE (test code = TEMPA) 97.7 F ABG SITE (test code = SITEA) Art Line BASIC METABOLIC [id number] 23:30:00* Test Item Value Reference Range Interpretation Comme nts SODIUM (test code = NA/ABG) 139 mmol/L 134-147 N POTASSIUM (test code = K/ABG) 3.8 mmol/L 3.4-5.0 N CHLORIDE (test code = CL/ABG) 110 mmol/L 100-108 H CREATININE ABG (test code = CREAABG) 1.0 mg/dL 0.8-1.3 N POC IONIZED CALCIUM (test co de = POCCA) 1.31 MMOL/L 1.12-1.32 N POC GLUCOSE (test code = POCGLU) 265 MG/DL 70-110 H HEMOGLOBIN [id number] 23:30:00* Test Item Value Reference Range Interpretation Comme nts HEMOGLOBIN ABG (test code = HGB/ABG) 11.9 G/DL 12.5-16.9 L [id number] 23:30:00* Test Item Value Reference Range Interpretation Comme nts HEMATOCRIT (test code = HCT/ABG) 35 % 37.5-50.7 L POC LACTIC [id number] 23:30:00* Test Item Value Reference Range Interpretation Comme nts POC LACTIC ACID (test code = POCLAC) 2.7 mmol/l 0.9-1.7 H GLUCOSE [id number] 23:18:00* Test Item Value Reference Range Interpretation Comme nts GLUCOSE BEDSIDE (test code = GLUBED) 288 MG/DL 70-110 H Performed by cer katiuskaied waxer operator at [facility] POC ARTERIAL BLOOD [id number] 21:52:00* Test Item Value Reference Range Interpretation Comme nts POC ARTERIAL BLOOD GAS PH (t est code = POCPHA) 7.390 7.35-7.45 N POC ARTERIAL BLOOD GAS PCO2 (test code = CNICPK3L) 36.4 mmHg 35.0-45 N POC TCO2 ARTERIAL (test code = POCTCO2) 23.2 POC ARTERIAL BLOOD GAS PO2 ( test code = UHBEE9E) 65.5 mmHg 80-100.0 L POC HCO3 ARTERIAL (test code = RGFZOW2U) 22.1 MMOL/L 22.0-26.0 N POC BASE EXCESS (test code = POCBEA) -2.9 MMOL/L -4.0-4.0 N POC O2 SATURATION (test code = POCO2S) 92.5 % 90-100 N FIO2 (test code = FIO2A) 50 % PaO2/FiO2 (test code = NSO2GGN8) 131.00 mm/Hg ABG DELIVERY (test code = DELVIN) Adult Vent ABG VENT MODE (test code = MODEA) PC/PS ABG PEEP (test code = PEEPA) 5 cmH2O ABG PRESSURE SUPPORT (test c ode = PSABG) 12 cmH2O ABG TEMPERATURE (test code = TEMPA) 99 F ABG SITE (test code = SITEA) Art Line BASIC METABOLIC [id number] 21:52:00* Test Item Value Reference Range Interpretation Comme nts SODIUM (test code = NA/ABG) 139 mmol/L 134-147 N POTASSIUM (test code = K/ABG) 3.9 mmol/L 3.4-5.0 N CHLORIDE (test code = CL/ABG) 107 mmol/L 100-108 N CREATININE ABG (test code = CREAABG) 1.0 mg/dL 0.8-1.3 N POC IONIZED CALCIUM (test co de = POCCA) 1.42 MMOL/L 1.12-1.32 H POC GLUCOSE (test code = POCGLU) 264 MG/DL 70-110 H HEMOGLOBIN [id number] 21:52:00* Test Item Value Reference Range Interpretation Comme nts HEMOGLOBIN ABG (test code = HGB/ABG) 12.1 G/DL 12.5-16.9 L [id number] 21:52:00* Test Item Value Reference Range Interpretation Comme nts HEMATOCRIT (test code = HCT/ABG) 35 % 37.5-50.7 L POC LACTIC [id number] 21:52:00* Test Item Value Reference Range Interpretation Comme nts POC LACTIC ACID (test code = POCLAC) 2.4 mmol/l 0.9-1.7 H PROTHROMBIN [id number] 21:35:00* Test Item Value Reference Range Interpretation Comme nts PROTHROMBIN TIME PATIENT (test code = PTP) 14.2 SECONDS 9.3-12.9 H INTERNATIONAL NORMAL RATIO (test code = INR) 1.3 0.8-1.2 H TARGET INR BY INDICATION Indication INR1. Prophylaxis of venous thrombosis 2.0 - 3.0 (orthopedic surgery), Prophylaxis of venous thrombosis (other than high-risk surgery), Treatment of Deep Vein Thrombosis/Pulmonary Embolism, Prevention of systemic embolism - Tissue heart valves, Acute Myocardial Infarction (to prevent systemic embolism), Valvular heart disease, Atrial Fibrillation, Bileaflet mechanical valve in aortic position.2. Mechanical prosthetic valves (high risk), 2.5 - 3.5 Presence of Lupus Anticoagulant or Antiphospholipid Antibodies, Prevention of systemic embolism - Acute Myocardial Infarction (to prevent recurrent infarct). COMMENTS: On arrivalTHROMBOPLASTIN TIME [id number] 21:35:00* Test Item Value Reference Range Interpretation Comme nts THROMBOPLASTIN TIME PARTIAL (test code = PTT) 35.8 Seconds 25.0-39.5 Therapeutic Rang e: 50.4 - 88.3 Seconds Effective 07/12/2018 COMMENTS: On arrival- XR CHEST 1 [id number] 21:30:00 [facility] 1955 Sex: M FAX: Nathaniel Shirley MD [phone] [place]: St: [facility] FAX: Eleonora Mai MD [phone] FAX:Denise Montejo MD Name: MINDY CARTER [facility] : 1955 Age/S: 67/M [address] [place] [address] Unit #: [id number] Loc: [place] [place] [id number] Phys: Nathaniel Martel MD Acct: [id number] Dis Date: Status: ADM IN PHONE #: [phone] Exam Date: 06/11/20232104 FAX #: [phone] Reason: Cardiac Surg gina Post Op EXAMS: CPT CODE: [id number] XR CHEST 1 V 38099 LOCATION: Q15 HISTORY: 67-year-old male,status post cardiac surgery, follow-up examination. COMMENT: A frontal chest radiograph was obtained at the bedside at 8:53 p.m., and compared to study obtained earlier today at 6:49 a.m. FINDINGS: Since prior study the patient has undergone a median sternotomy. Mild prominence of the central vasculature is seen. The cardiac silhouette is at the upper limits of normal, unchanged. No pleural effusions are present. ET tube is above the gregg at the level aortic arch and a right IJ Seminole-Chacorta catheter seen in the right main pulmonary artery. IMPRESSION: Satisfactory postoperative appearance of the chest. at 2129 Reported and signed by: Orlando Trimble M.D. CC: Nathaniel Martel MD; Eleonora Mai MD; Denise Montejo MDTechnologist: RT Annie(R) Trnscrd Date/Time/By: 06/11/2023 (2129) : By: [email or web address] Orig Print D/T: S: 06/11/2023 (2132) PAGE 1 Signed ReportCBC W/AUTO [id number] 21:28:00* Test Item Value Reference Range Interpretation Comme nts WHITE BLOOD CELL (test code = WBC) 35.5 x10 3/uL 4.5-11.0 H RED BLOOD CELL (test code = RBC) 3.69 x10 6/uL 4.00-5.60 L HEMOGLOBIN (test code = HGB) 11.1 g/dL 12.5-16.9 L HEMATOCRIT (test code = HCT) 34.0 % 37.5-50.7 L MEAN CELL VOLUME (test code = MCV) 92.1 fL 81.0-99.0 N MEAN CELL HGB (test code = MCH) 30.1 pg 27.0-33.0 N MEAN CELL HGB CONCETRATION (test code = MCHC) 32.6 g/dL 33.0-37.0 L RED CELL DISTRIBUTION WIDTH CV (test code = RDW) 13.5 % 11.5-14.5 N RED CELL DISTRIBUTION WIDTH SD (test code = RDW-SD) 45.2 fL 37.0-54.0 N PLATELET COUNT (test code = PLT) 204 x10 3/uL 150-400 N MEAN PLATELET VOLUME (test code = MPV) 12.2 fL 7.0-9.0 H NEUTROPHIL % (test code = NT%) 83.9 % 56.0-77.0 H IMMATURE GRANULOCYTE % (test code = IG%) 2.5 % 0.0-2.0 H LYMPHOCYTE % (test code = LY%) 7.8 % 14.0-32.0 L MONOCYTE % (test code = MO%) 4.0 % 4.8-9.0 L EOSINOPHIL % (test code = EO%) 1.2 % 0.3-3.7 N BASOPHIL % (test code = BA%) 0.6 % 0.0-2.0 N NUCLEATED RBC % (test code = NRBC%) 0.0 % 0-0 N NEUTROPHIL # (test code = NT#) 29.79 x10 3/uL 2.0-7.6 H IMMATURE GRANULOCYTE # (test code = IG#) 0.90 x10 3/uL 0.00-0.03 H LYMPHOCYTE # (test code = LY#) 2.77 x10 3/uL 1.0-3.8 N MONOCYTE # (test code = MO#) 1.41 x10 3/uL 0.1-0.8 H EOSINOPHIL # (test code = EO#) 0.44 x10 3/uL 0.0-0.2 H BASOPHIL # (test code = BA#) 0.22 x10 3/uL 0.0-0.2 H NUCLEATED RBC # (test code = NRBC#) 0.00 x10 3/uL 0.0-0.1 N COMMENTS: On arrivalBASIC METABOLIC [id number] 21:13:00* Test Item Value Reference Range Interpretation Comme nts SODIUM (test code = NA) 137 mEq/L 134-147 N POTASSIUM (test code = K) 4.6 mEq/L 3.4-5.0 CHLORIDE (test code = CL) 103 mEq/L 100-108 N CARBON DIOXIDE (test code = CO2) 24 mEq/l 21-33 N ANION GAP (test code = GAP) 15 0-20 N GLUCOSE (test code = GLU) 298 mg/dL 77-141 H BLOOD UREA NITROGEN (test code = BUN) 21 mg/dL 7-25 N GLOMERULAR FILTRATION RATE (test code = GFR) 73.1 80-90 L The Glomerular Filtration Rate is a calculated parameterbased on serum Creatinine, patient age and sex. GFR valuesless than 60 mL/min/1.73 square meters are indicative ofChronic Kidney Disease. Values less than 15 mL/min/1.73square meters indicate Kidney failure. The calculation forGFR is based on the CKD-EPI (2020) calculation. This formulais race indifferent and is the recommended formula for GFRby the National Kidney Foundation for Adults.The GFR will not calculate if the sex is unknown or if thepatient's age is <18 years. CREATININE (test code = CREAT) 1.1 mg/dL 0.6-1.3 N CALCIUM (test code = CA) 10.6 mg/dL 8.0-10.5 H COMMENTS: On arrivalComment: On [id number] 21:13:00* Test Item Value Reference Range Interpretation Comme nts MAGNESIUM (test code = MAG) 2.81 mg/dL 1.6-2.6 H COMMENTS: On arrivalComment: On arrivalPO ARTERIAL BLOOD [id number] 21:03:00 * Test Item Value Reference Range Interpretation Comme nts POC ARTERIAL BLOOD GAS PH (t est code = POCPHA) 7.371 7.35-7.45 N POC ARTERIAL BLOOD GAS PCO2 (test code = IIPAST0N) 39.7 mmHg 35.0-45 N POC TCO2 ARTERIAL (test code = POCTCO2) 24.2 POC ARTERIAL BLOOD GAS PO2 ( test code = TTAPT6P) 70.5 mmHg 80-100.0 L POC HCO3 ARTERIAL (test code = SOEBQM4N) 23.0 MMOL/L 22.0-26.0 N POC BASE EXCESS (test code = POCBEA) -2.2 MMOL/L -4.0-4.0 N POC O2 SATURATION (test code = POCO2S) 93.5 % 90-100 N FIO2 (test code = FIO2A) 100 % PaO2/FiO2 (test code = KPP2RZG6) 70.50 mm/Hg ABG DELIVERY (test code = DELVIN) + ABG VENT MODE (test code = MODEA) AC ABG VENT RESP RATE (test cod e = RRA) 20 /MIN ABG TIDAL VOLUME (test code = TVA) 450 ml ABG PEEP (test code = PEEPA) 8 cmH2O ABG SITE (test code = SITEA) Art Line MABEL'S TEST (test code = ALLENS) N/A BASIC METABOLIC [id number] 21:03:00* Test Item Value Reference Range Interpretation Comme nts SODIUM (test code = NA/ABG) 139 mmol/L 134-147 N POTASSIUM (test code = K/ABG) 4.6 mmol/L 3.4-5.0 N CHLORIDE (test code = CL/ABG) 104 mmol/L 100-108 N CREATININE ABG (test code = CREAABG) 1.0 mg/dL 0.8-1.3 POC IONIZED CALCIUM (test co de = POCCA) 1.47 MMOL/L 1.12-1.32 H POC GLUCOSE (test code = POCGLU) 301 MG/DL 70-110 H HEMOGLOBIN [id number] 21:03:00* Test Item Value Reference Range Interpretation Comme nts HEMOGLOBIN ABG (test code = HGB/ABG) 14.4 G/DL 12.5-16.9 N [id number] 21:03:00* Test Item Value Reference Range Interpretation Comme nts HEMATOCRIT (test code = HCT/ABG) 42 % 37.5-50.7 N POC LACTIC [id number] 21:03:00* Test Item Value Reference Range Interpretation Comme nts POC LACTIC ACID (test code = POCLAC) 2.3 mmol/l 0.9-1.7 H - XR CHEST 1 [id number] 20:28:00 [facility] 1955 Sex: M FAX: Nathaniel Shirley MD [phone] [place]: St: ADM FAX: Eleonora Mai MD [phone] FAX:Denise Montejo MD Name: MINDY CARTER [facility] : 1955 Age/S: 67/M [address] [place] [address] Blvd Unit #: [id number] Loc: [place] [address] Phys: Nathaniel Martel MD Acct: [id number] Dis Date: Status: ADM IN PHONE #: [phone] Exam Date: 06/11/20231950 FAX #: [phone] Reason: MISSING 8-0 PROLENE EXAMS: CPT CODE: [id number] XR CHEST 1 V 79923 CLINICAL HISTORY: MISSING 8-0 PROLENE. LOCATION: A1 FINDINGS: Comparison is made with a previous study dated June 11, 2023. A portable AP view of the chest is dated 06/11/2023 at 1947 hours. There is stable mild cardiomegaly. There is an endotracheal tube in appropriate position with its tip 4.7 cm superior to the gregg. There is a left chest tube. Seminole-Chacorta catheter is in place. There is central vascular congestion and diffuse interstitial prominence with mild/moderate bibasilar atelectasis/infiltrates. No pleural effusions. Post sternotomy changes are noted. Surgical clip or staple is seen overlying the medial left upper quadrant of theabdomen which could be exterior to the patient. IMPRESSION: 1. There is central vascular congestionand diffuse interstitial prominence with mild/moderate bibasilar atelectasis/infiltrates. 2. Tubes and lines as described above. 3. No definite internal radiopaque foreign bodies are identified. The f indings of this study were discussed with the OR nurse and anesthesiologist. at 2027 Reported and signed by: Irwin Aaron M.D.CC: Nathaniel Martel MD; Eleonora Mai MD; Denise Montejo MD Technologist: Rylee Muller RT(R); Moncho Melvin RT(R) Trnscrd Date/Time/By: 06/11/2023 (2027) : By: [email or web address] Orig Print D/T: S: 06/11/2023 (2030) PAGE 1 Signed ReportPOC ARTERIAL BLOOD [id number] 20:02:00 * Test Item Value Reference Range Interpretation Comme nts POC ARTERIAL BLOOD GAS PH (t est code = POCPHA) 7.424 7.35-7.45 N POC ARTERIAL BLOOD GAS PCO2 (test code = FXNZTS4B) 32.5 mmHg 35.0-45 L POC TCO2 ARTERIAL (test code = POCTCO2) 22.3 POC ARTERIAL BLOOD GAS PO2 ( test code = HNWHB9A) 134.0 mmHg 80-100.0 H POC HCO3 ARTERIAL (test code = PQLWOE0C) 21.3 MMOL/L 22.0-26.0 L POC BASE EXCESS (test code = POCBEA) -2.6 MMOL/L -4.0-4.0 N POC O2 SATURATION (test code = POCO2S) 99.1 % 90-100 N BASIC METABOLIC [id number] 20:02:00* Test Item Value Reference Range Interpretation Comme nts SODIUM (test code = NA/ABG) 139 mmol/L 134-147 N POTASSIUM (test code = K/ABG) 4.6 mmol/L 3.4-5.0 N CHLORIDE (test code = CL/ABG) 109 mmol/L 100-108 H CREATININE ABG (test code = CREAABG) 0.8 mg/dL 0.8-1.3 N POC IONIZED CALCIUM (test co de = POCCA) 1.29 MMOL/L 1.12-1.32 N POC GLUCOSE (test code = POCGLU) 250 MG/DL 70-110 H HEMOGLOBIN [id number] 20:02:00* Test Item Value Reference Range Interpretation Comme nts HEMOGLOBIN ABG (test code = HGB/ABG) 9.0 G/DL 12.5-16.9 L [id number] 20:02:00* Test Item Value Reference Range Interpretation Comme nts HEMATOCRIT (test code = HCT/ABG) 27 % 37.5-50.7 L POC LACTIC [id number] 20:02:00* Test Item Value Reference Range Interpretation Comme nts POC LACTIC ACID (test code = POCLAC) 2.1 mmol/l 0.9-1.7 H [id number] 20:00:00* Test Item Value Reference Range Interpretation Comme nts ACT-ISTAT (test code = ACTI) 141 SEC 74-137 H Performed by cer tified waxer operator at [facility] [id number] 19:22:00* Test Item Value Reference Range Interpretation Comme nts ACT-ISTAT (test code = ACTI) 590 SEC 74-137 H Performed by cer tifNexess waxer operator at [facility] POC ARTERIAL BLOOD [id number] 19:10:00* Test Item Value Reference Range Interpretation Comme nts POC ARTERIAL BLOOD GAS PH (t est code = POCPHA) 7.460 7.35-7.45 H POC ARTERIAL BLOOD GAS PCO2 (test code = QUOXIS9R) 38.2 mmHg 35.0-45 N POC TCO2 ARTERIAL (test code = POCTCO2) 28.4 POC ARTERIAL BLOOD GAS PO2 ( test code = NNLQO0U) 235.3 mmHg 80-100.0 HH POC HCO3 ARTERIAL (test code = VPPRMQ9S) 27.2 MMOL/L 22.0-26.0 H POC BASE EXCESS (test code = POCBEA) 3.2 MMOL/L -4.0-4.0 N POC O2 SATURATION (test code = POCO2S) 99.9 % 90-100 N BASIC METABOLIC [id number] 19:10:00* Test Item Value Reference Range Interpretation Comme nts SODIUM (test code = NA/ABG) 137 mmol/L 134-147 N POTASSIUM (test code = K/ABG) 5.4 mmol/L 3.4-5.0 H CHLORIDE (test code = CL/ABG) 102 mmol/L 100-108 N CREATININE ABG (test code = CREAABG) 0.9 mg/dL 0.8-1.3 N POC IONIZED CALCIUM (test co de = POCCA) 1.03 MMOL/L 1.12-1.32 L POC GLUCOSE (test code = POCGLU) 202 MG/DL 70-110 H HEMOGLOBIN [id number] 19:10:00* Test Item Value Reference Range Interpretation Comme nts HEMOGLOBIN ABG (test code = HGB/ABG) 10.1 G/DL 12.5-16.9 L [id number] 19:10:00* Test Item Value Reference Range Interpretation Comme nts HEMATOCRIT (test code = HCT/ABG) 30 % 37.5-50.7 L POC LACTIC [id number] 19:10:00* Test Item Value Reference Range Interpretation Comme nts POC LACTIC ACID (test code = POCLAC) 1.0 mmol/l 0.9-1.7 N [id number] 18:56:00* Test Item Value Reference Range Interpretation Comme nts ACT-ISTAT (test code = ACTI) 650 SEC 74-137 H Performed by cer tified waxer operator at [facility] POC ARTERIAL BLOOD [id number] 18:48:00* Test Item Value Reference Range Interpretation Comme nts POC ARTERIAL BLOOD GAS PH (t est code = POCPHA) 7.428 7.35-7.45 N POC ARTERIAL BLOOD GAS PCO2 (test code = ULKCNU2T) 41.4 mmHg 35.0-45 N POC TCO2 ARTERIAL (test code = POCTCO2) 28.6 POC ARTERIAL BLOOD GAS PO2 ( test code = CGSBZ5C) 431.5 mmHg 80-100.0 HH POC HCO3 ARTERIAL (test code = OABXYV0X) 27.4 MMOL/L 22.0-26.0 H POC BASE EXCESS (test code = POCBEA) 2.7 MMOL/L -4.0-4.0 N POC O2 SATURATION (test code = POCO2S) 100.0 % 90-100 N BASIC METABOLIC [id number] 18:48:00* Test Item Value Reference Range Interpretation Comme nts SODIUM (test code = NA/ABG) 137 mmol/L 134-147 N POTASSIUM (test code = K/ABG) 5.0 mmol/L 3.4-5.0 N CHLORIDE (test code = CL/ABG) 103 mmol/L 100-108 N CREATININE ABG (test code = CREAABG) 0.8 mg/dL 0.8-1.3 N POC IONIZED CALCIUM (test co de = POCCA) 1.00 MMOL/L 1.12-1.32 L POC GLUCOSE (test code = POCGLU) 172 MG/DL 70-110 H HEMOGLOBIN [id number] 18:48:00* Test Item Value Reference Range Interpretation Comme nts HEMOGLOBIN ABG (test code = HGB/ABG) 10.1 G/DL 12.5-16.9 L [id number] 18:48:00* Test Item Value Reference Range Interpretation Comme nts HEMATOCRIT (test code = HCT/ABG) 30 % 37.5-50.7 L POC LACTIC [id number] 18:48:00* Test Item Value Reference Range Interpretation Comme nts POC LACTIC ACID (test code = POCLAC) < 0.3 mmol/l 0.9-1.7 L [id number] 18:37:00* Test Item Value Reference Range Interpretation Comme nts ACT-ISTAT (test code = ACTI) 574 SEC 74-137 H Performed by cer tified waxer operator at [facility] POC ARTERIAL BLOOD [id number] 18:20:00* Test Item Value Reference Range Interpretation Comme nts POC ARTERIAL BLOOD GAS PH (t est code = POCPHA) 7.404 7.35-7.45 N POC ARTERIAL BLOOD GAS PCO2 (test code = NVVVVQ5S) 34.4 mmHg 35.0-45 L POC TCO2 ARTERIAL (test code = POCTCO2) 22.6 POC ARTERIAL BLOOD GAS PO2 ( test code = ZDPUZ8O) 156.7 mmHg 80-100.0 H POC HCO3 ARTERIAL (test code = IBJWMA0U) 21.5 MMOL/L 22.0-26.0 L POC BASE EXCESS (test code = POCBEA) -2.7 MMOL/L -4.0-4.0 N POC O2 SATURATION (test code = POCO2S) 99.4 % 90-100 N BASIC METABOLIC [id number] 18:20:00* Test Item Value Reference Range Interpretation Comme nts SODIUM (test code = NA/ABG) 140 mmol/L 134-147 N POTASSIUM (test code = K/ABG) 3.5 mmol/L 3.4-5.0 N CHLORIDE (test code = CL/ABG) 111 mmol/L 100-108 H CREATININE ABG (test code = CREAABG) 0.7 mg/dL 0.8-1.3 L POC IONIZED CALCIUM (test co de = POCCA) 0.96 MMOL/L 1.12-1.32 L POC GLUCOSE (test code = POCGLU) 143 MG/DL 70-110 H HEMOGLOBIN [id number] 18:20:00* Test Item Value Reference Range Interpretation Comme nts HEMOGLOBIN ABG (test code = HGB/ABG) 10.4 G/DL 12.5-16.9 L [id number] 18:20:00* Test Item Value Reference Range Interpretation Comme nts HEMATOCRIT (test code = HCT/ABG) 30 % 37.5-50.7 L POC LACTIC [id number] 18:20:00* Test Item Value Reference Range Interpretation Comme nts POC LACTIC ACID (test code = POCLAC) 0.6 mmol/l 0.9-1.7 L [id number] 18:00:00* Test Item Value Reference Range Interpretation Comme nts ACT-ISTAT (test code = ACTI) 158 SEC 74-137 H Performed by cer tified waxer operator at [facility] POC LACTIC [id number] 17:52:00* Test Item Value Reference Range Interpretation Comme nts POC LACTIC ACID (test code = POCLAC) 0.5 mmol/l 0.9-1.7 L POC ARTERIAL BLOOD [id number] 17:52:00* Test Item Value Reference Range Interpretation Comme nts POC ARTERIAL BLOOD GAS PH (t est code = POCPHA) 7.371 7.35-7.45 N POC ARTERIAL BLOOD GAS PCO2 (test code = JLTVMQ6I) 35.6 mmHg 35.0-45 N POC TCO2 ARTERIAL (test code = POCTCO2) 21.7 POC ARTERIAL BLOOD GAS PO2 ( test code = CKCCB0O) 126.6 mmHg 80-100.0 H POC HCO3 ARTERIAL (test code = NNVZDV8P) 20.6 MMOL/L 22.0-26.0 L POC BASE EXCESS (test code = POCBEA) -4.1 MMOL/L -4.0-4.0 L POC O2 SATURATION (test code = POCO2S) 98.8 % 90-100 N BASIC METABOLIC [id number] 17:52:00* Test Item Value Reference Range Interpretation Comme nts SODIUM (test code = NA/ABG) 142 mmol/L 134-147 N POTASSIUM (test code = K/ABG) 3.1 mmol/L 3.4-5.0 L CHLORIDE (test code = CL/ABG) 112 mmol/L 100-108 H CREATININE ABG (test code = CREAABG) 0.6 mg/dL 0.8-1.3 L POC IONIZED CALCIUM (test co de = POCCA) 0.94 MMOL/L 1.12-1.32 L POC GLUCOSE (test code = POCGLU) 128 MG/DL 70-110 H HEMOGLOBIN [id number] 17:52:00* Test Item Value Reference Range Interpretation Comme nts HEMOGLOBIN ABG (test code = HGB/ABG) 10.0 G/DL 12.5-16.9 L [id number] 17:52:00* Test Item Value Reference Range Interpretation Comme nts HEMATOCRIT (test code = HCT/ABG) 30 % 37.5-50.7 L GLUCOSE [id number] 15:36:00* Test Item Value Reference Range Interpretation Comme nts GLUCOSE BEDSIDE (test code = GLUBED) 180 MG/DL 70-110 H Performed by cer tified waxer operator at [facility] GLUCOSE [id number] 11:46:00* Test Item Value Reference Range Interpretation Comme nts GLUCOSE BEDSIDE (test code = GLUBED) 218 MG/DL 70-110 H Performed by cer [employer] waxer operator at [facility] THROMBOPLASTIN TIME [id number] 10:03:00* Test Item Value Reference Range Interpretation Comme nts THROMBOPLASTIN TIME PARTIAL (test code = PTT) 73.2 Seconds 25.0-39.5 H Therapeutic Rang e: 50.4 - 88.3 Seconds Effective 07/12/2018 - XR CHEST 1 [id number] 09:40:00 [facility] 1955 Sex: M FAX: Nathaniel Shirley MD [phone] [place]: St: ADM FAX: Eleonora Mai MD [phone] FAX:Denise Montejo MD Name: MINDY CARTER [facility] : 1955 Age/S: 67/M [address] [place] [address] Unit #: [id number] Loc: G.3360 [place] [address] Phys: Nathaniel Martel MD Acct: [id number] Dis Date: Status: ADM IN PHONE #: [phone] Exam Date: 06/11/2023927 FAX #: [phone] Reason: Cardiac Surgery Pre Op EXAMS: CPT CODE: [id number] XR CHEST 1 V [id number] EXAM: CHEST ONE VIEW INDICATION: Cardiac Surgery Pre Op LOCATION: B2 COMPARISON: June 04, 2023 TECHNIQUE: AP view of the chest FINDINGS: The heart size is enlarged. There are diffuse congestive changes bilaterally. No pneumothorax or pleural effusion is identified. The osseous structures are normal. IMPRESSION: Cardiomegaly with diffuse congestive changes bilaterally. at 0940 Reported and signed by: Gabrielle Jean M.D. CC: Nathaniel Martel MD; Eleonora Mai MD; Denise Montejo MD Technologist: RT Justen(R) Trnscrd Date/Time/By: 06/11/2023 (0940) : By: [email or web address] Orig Print D/T: S: 06/11/2023 (1247) PAGE 1 Signed ReportGLUCOSE [id number] 08:01:00* Test Item Value Reference Range Interpretation Comme nts GLUCOSE BEDSIDE (test code = GLUBED) 223 MG/DL 70-110 H Performed by linda carter waxer operator at [facility] COMPREHENSIVE METABOLIC [id number] 05:32:00* Test Item Value Reference Range Interpretation Comme nts SODIUM (test code = NA) 135 mEq/L 134-147 N POTASSIUM (test code = K) 3.7 mEq/L 3.4-5.0 N CHLORIDE (test code = CL) 101 mEq/L 100-108 N CARBON DIOXIDE (test code = CO2) 26 mEq/l 21-33 N ANION GAP (test code = GAP) 12 0-20 N GLUCOSE (test code = GLU) 195 mg/dL 77-141 H BLOOD UREA NITROGEN (test code = BUN) 19 mg/dL 7-25 N GLOMERULAR FILTRATION RATE (test code = GFR) 73.1 80-90 L The Glomerular Filtration Rate is a calculated parameterbased on serum Creatinine, patient age and sex. GFR valuesless than 60 mL/min/1.73 square meters are indicative ofChronic Kidney Disease. Values less than 15 mL/min/1.73square meters indicate Kidney failure. The calculation forGFR is based on the CKD-EPI (2020) calculation. This formulais race indifferent and is the recommended formula for GFRby the National Kidney Foundation for Adults.The GFR will not calculate if the sex is unknown or if thepatient's age is <18 years. CREATININE (test code = CREAT) 1.1 mg/dL 0.6-1.3 N TOTAL PROTEIN (test code = PROT) 6.7 g/dL 6.4-8.2 N ALBUMIN (test code = ALB) 3.40 g/dL 3.4-5.0 N CALCIUM (test code = CA) 8.7 mg/dL 8.0-10.5 N BILIRUBIN TOTAL (test code = BILT) 0.70 mg/dL 0.0-1.0 N SGOT/AST (test code = AST) 34 IUnit/L 8-34 N SGPT/ALT (test code = ALT) 31 IUnit/L 10-49 N ALKALINE PHOSPHATASE TOTAL (test code = ALKP) 121 IUnit/L 20-125 N [id number] 05:32:00* Test Item Value Reference Range Interpretation Comme [facility] MAGNESIUM (test code = MAG) 1.84 mg/dL 1.6-2.6 N B-TYPE NATRIURETIC [id number] 05:22:00* Test Item Value Reference Range Interpretation Comme [facility] B-TYPE NATRIURETIC PEPTIDE ( test code = BNP) 224.0 PG/ML 0-100 H PROTHROMBIN [id number] 05:02:00* Test Item Value Reference Range Interpretation Comme [facility] PROTHROMBIN TIME PATIENT (test code = PTP) 12.2 SECONDS 9.3-12.9 N INTERNATIONAL NORMAL RATIO (test code = INR) 1.1 0.8-1.2 N TARGET INR BY INDICATION Indication INR1. Prophylaxis of venous thrombosis 2.0 - 3.0 (orthopedic surgery), Prophylaxis of venous thrombosis (other than high-risk surgery), Treatment of Deep Vein Thrombosis/Pulmonary Embolism, Prevention of systemic embolism - Tissue heart valves, Acute Myocardial Infarction (to prevent systemic embolism), Valvular heart disease, Atrial Fibrillation, Bileaflet mechanical valve in aortic position.2. Mechanical prosthetic valves (high risk), 2.5 - 3.5 Presence of Lupus Anticoagulant or Antiphospholipid Antibodies, Prevention of systemic embolism - Acute Myocardial Infarction (to prevent recurrent infarct). THROMBOPLASTIN TIME [id number] 05:02:00* Test Item Value Reference Range Interpretation Comme [facility] THROMBOPLASTIN TIME PARTIAL (test code = PTT) 52.9 Seconds 25.0-39.5 H Therapeutic Rang e: 50.4 - 88.3 Seconds Effective 07/12/2018 CBC W/AUTO [id number] 04:52:00* Test Item Value Reference Range Interpretation Comme nts WHITE BLOOD CELL (test code = WBC) 7.2 x10 3/uL 4.5-11.0 N RED BLOOD CELL (test code = RBC) 3.87 x10 6/uL 4.00-5.60 L HEMOGLOBIN (test code = HGB) 11.6 g/dL 12.5-16.9 L HEMATOCRIT (test code = HCT) 35.2 % 37.5-50.7 L MEAN CELL VOLUME (test code = MCV) 91.0 fL 81.0-99.0 N MEAN CELL HGB (test code = MCH) 30.0 pg 27.0-33.0 N MEAN CELL HGB CONCETRATION (test code = MCHC) 33.0 g/dL 33.0-37.0 N RED CELL DISTRIBUTION WIDTH CV (test code = RDW) 13.3 % 11.5-14.5 N RED CELL DISTRIBUTION WIDTH SD (test code = RDW-SD) 45.0 fL 37.0-54.0 N PLATELET COUNT (test code = PLT) 155 x10 3/uL 150-400 N MEAN PLATELET VOLUME (test c ode = MPV) 12.2 fL 7.0-9.0 H NEUTROPHIL % (test code = NT%) 73.5 % 56.0-77.0 N IMMATURE GRANULOCYTE % (test code = IG%) 1.1 % 0.0-2.0 N LYMPHOCYTE % (test code = LY%) 8.5 % 14.0-32.0 L MONOCYTE % (test code = MO%) 12.6 % 4.8-9.0 H EOSINOPHIL % (test code = EO%) 3.6 % 0.3-3.7 N BASOPHIL % (test code = BA%) 0.7 % 0.0-2.0 N NUCLEATED RBC % (test code = NRBC%) 0.0 % 0-0 N NEUTROPHIL # (test code = NT#) 5.26 x10 3/uL 2.0-7.6 N IMMATURE GRANULOCYTE # (test code = IG#) 0.08 x10 3/uL 0.00-0.03 H LYMPHOCYTE # (test code = LY#) 0.61 x10 3/uL 1.0-3.8 L MONOCYTE # (test code = MO#) 0.90 x10 3/uL 0.1-0.8 H EOSINOPHIL # (test code = EO#) 0.26 x10 3/uL 0.0-0.2 H BASOPHIL # (test code = BA#) 0.05 x10 3/uL 0.0-0.2 N NUCLEATED RBC # (test code = NRBC#) 0.00 x10 3/uL 0.0-0.1 N GLUCOSE [id number] 20:24:00* Test Item Value Reference Range Interpretation Comme nts GLUCOSE BEDSIDE (test code = GLUBED) 259 MG/DL 70-110 H Performed by cer tified waxer operator at [facility] GLUCOSE [id number] 17:20:00* Test Item Value Reference Range Interpretation Comme nts GLUCOSE BEDSIDE (test code = GLUBED) 138 MG/DL 70-110 H Performed by cer tified waxer operator at [facility] COVID 19 Asymptomatic IH [id number] 17:07:00* Test Item Value Reference Range Interpretation Comme nts COVID 19 Asymptomatic IH AG (test code = COVNONPUIAG) Negative Negative A negative resul t is presumptive and should be confirmedwith an FDA authorized molecular assay, if necessary forpatient management.A positive result does not rule out co-infections withother pathogens.This test detects both viable (live) and non-viable,SARS-CoV, and SARS-CoV-2. Test performance depends on theamount of virus (antigen) in the sample.This test has not been FDA cleared or approved; the test hasbeen authorized by FDA under an Emergency Use Authorization(EUA) for use by laboratories certified under the CLIA thatmeet the requirements to perform moderate, high or waivedcomplexity tests. GLUCOSE [id number] 11:50:00* Test Item Value Reference Range Interpretation Comme nts GLUCOSE BEDSIDE (test code = GLUBED) 310 MG/DL 70-110 H Performed by cer tified waxer operator at [facility] GLUCOSE [id number] 09:15:00* Test Item Value Reference Range Interpretation Comme nts GLUCOSE BEDSIDE (test code = GLUBED) 266 MG/DL 70-110 H Performed by cer tified waxer operator at [facility] GLUCOSE [id number] 08:45:00* Test Item Value Reference Range Interpretation Comme nts GLUCOSE BEDSIDE (test code = GLUBED) 231 MG/DL 70-110 H Performed by linda carter waxer operator at [facility] BASIC METABOLIC [id number] 05:23:00* Test Item Value Reference Range Interpretation Comme nts SODIUM (test code = NA) 134 mEq/L 134-147 N POTASSIUM (test code = K) 3.8 mEq/L 3.4-5.0 N CHLORIDE (test code = CL) 100 mEq/L 100-108 N CARBON DIOXIDE (test code = CO2) 26 mEq/l 21-33 N ANION GAP (test code = GAP) 12 0-20 N GLUCOSE (test code = GLU) 197 mg/dL 77-141 H BLOOD UREA NITROGEN (test code = BUN) 17 mg/dL 7-25 N GLOMERULAR FILTRATION RATE (test code = GFR) 82.0 80-90 N The Glomerular Filtration Rate is a calculated parameterbased on serum Creatinine, patient age and sex. GFR valuesless than 60 mL/min/1.73 square meters are indicative ofChronic Kidney Disease. Values less than 15 mL/min/1.73square meters indicate Kidney failure. The calculation forGFR is based on the CKD-EPI (202) calculation. This formulais race indifferent and is the recommended formula for GFRby the National Kidney Foundation for Adults.The GFR will not calculate if the sex is unknown or if thepatient's age is <18 years. CREATININE (test code = CREAT) 1.0 mg/dL 0.6-1.3 N CALCIUM (test code = CA) 8.8 mg/dL 8.0-10.5 N HEPATIC FUNCTION [id number] 05:23:00* Test Item Value Reference Range Interpretation Comme nts TOTAL PROTEIN (test code = PROT) 6.7 g/dL 6.4-8.2 N ALBUMIN (test code = ALB) 3.30 g/dL 3.4-5.0 L BILIRUBIN TOTAL (test code = BILT) 0.70 mg/dL 0.0-1.0 N BILIRUBIN DIRECT (test code = BILD) 0.30 MG/DL 0.1-0.3 N SGOT/AST (test code = AST) 30 IUnit/L 8-34 N SGPT/ALT (test code = ALT) 30 IUnit/L 10-49 N ALKALINE PHOSPHATASE TOTAL ( test code = ALKP) 127 IUnit/L 20-125 H BILIRUBIN INDIRECT (test cod e = BILIND) 0.40 MG/DL [id number] 05:23:00* Test Item Value Reference Range Interpretation Comme nts MAGNESIUM (test code = MAG) 1.72 mg/dL 1.6-2.6 N THROMBOPLASTIN TIME [id number] 05:02:00* Test Item Value Reference Range Interpretation Comme nts THROMBOPLASTIN TIME PARTIAL (test code = PTT) 59.1 Seconds 25.0-39.5 H Therapeutic Rang e: 50.4 - 88.3 Seconds Effective 07/12/2018 CBC W/AUTO [id number] 04:54:00* Test Item Value Reference Range Interpretation Comme nts WHITE BLOOD CELL (test code = WBC) 8.2 x10 3/uL 4.5-11.0 N RED BLOOD CELL (test code = RBC) 3.94 x10 6/uL 4.00-5.60 L HEMOGLOBIN (test code = HGB) 11.9 g/dL 12.5-16.9 L HEMATOCRIT (test code = HCT) 36.0 % 37.5-50.7 L MEAN CELL VOLUME (test code = MCV) 91.4 fL 81.0-99.0 N MEAN CELL HGB (test code = MCH) 30.2 pg 27.0-33.0 N MEAN CELL HGB CONCETRATION (test code = MCHC) 33.1 g/dL 33.0-37.0 N RED CELL DISTRIBUTION WIDTH CV (test code = RDW) 13.2 % 11.5-14.5 N RED CELL DISTRIBUTION WIDTH SD (test code = RDW-SD) 44.1 fL 37.0-54.0 N PLATELET COUNT (test code = PLT) 153 x10 3/uL 150-400 N MEAN PLATELET VOLUME (test c ode = MPV) 11.9 fL 7.0-9.0 H NEUTROPHIL % (test code = NT%) 73.4 % 56.0-77.0 N IMMATURE GRANULOCYTE % (test code = IG%) 1.5 % 0.0-2.0 N LYMPHOCYTE % (test code = LY%) 8.5 % 14.0-32.0 L MONOCYTE % (test code = MO%) 12.0 % 4.8-9.0 H EOSINOPHIL % (test code = EO%) 3.9 % 0.3-3.7 H BASOPHIL % (test code = BA%) 0.7 % 0.0-2.0 N NUCLEATED RBC % (test code = NRBC%) 0.0 % 0-0 N NEUTROPHIL # (test code = NT#) 6.05 x10 3/uL 2.0-7.6 N IMMATURE GRANULOCYTE # (test code = IG#) 0.12 x10 3/uL 0.00-0.03 H LYMPHOCYTE # (test code = LY#) 0.70 x10 3/uL 1.0-3.8 L MONOCYTE # (test code = MO#) 0.99 x10 3/uL 0.1-0.8 H EOSINOPHIL # (test code = EO#) 0.32 x10 3/uL 0.0-0.2 H BASOPHIL # (test code = BA#) 0.06 x10 3/uL 0.0-0.2 N NUCLEATED RBC # (test code = NRBC#) 0.00 x10 3/uL 0.0-0.1 N GLUCOSE [id number] 20:26:00* Test Item Value Reference Range Interpretation Comme nts GLUCOSE BEDSIDE (test code = GLUBED) 239 MG/DL 70-110 H Performed by cer tified waxer operator at [facility] GLUCOSE [id number] 16:26:00* Test Item Value Reference Range Interpretation Comme nts GLUCOSE BEDSIDE (test code = GLUBED) 384 MG/DL 70-110 H Performed by cer tified waxer operator at [facility] GLUCOSE [id number] 12:47:00* Test Item Value Reference Range Interpretation Comme nts GLUCOSE BEDSIDE (test code = GLUBED) 317 MG/DL 70-110 H Performed by cer tified waxer operator at [facility] GLUCOSE [id number] 08:58:00* Test Item Value Reference Range Interpretation Comme nts GLUCOSE BEDSIDE (test code = GLUBED) 269 MG/DL 70-110 H Performed by Avvenu tifNexess waxer operator at [facility] BASIC METABOLIC [id number] 06:34:00* Test Item Value Reference Range Interpretation Comme nts SODIUM (test code = NA) 133 mEq/L 134-147 L POTASSIUM (test code = K) 4.0 mEq/L 3.4-5.0 N CHLORIDE (test code = CL) 102 mEq/L 100-108 N CARBON DIOXIDE (test code = CO2) 25 mEq/l 21-33 N ANION GAP (test code = GAP) 10 0-20 N GLUCOSE (test code = GLU) 254 mg/dL 77-141 H BLOOD UREA NITROGEN (test code = BUN) 17 mg/dL 7-25 N GLOMERULAR FILTRATION RATE (test code = GFR) 82.0 80-90 N The Glomerular Filtration Rate is a calculated parameterbased on serum Creatinine, patient age and sex. GFR valuesless than 60 mL/min/1.73 square meters are indicative ofChronic Kidney Disease. Values less than 15 mL/min/1.73square meters indicate Kidney failure. The calculation forGFR is based on the CKD-EPI (2020) calculation. This formulais race indifferent and is the recommended formula for GFRby the National Kidney Foundation for Adults.The GFR will not calculate if the sex is unknown or if thepatient's age is <18 years. CREATININE (test code = CREAT) 1.0 mg/dL 0.6-1.3 N CALCIUM (test code = CA) 9.0 mg/dL 8.0-10.5 N [id number] 06:34:00* Test Item Value Reference Range Interpretation Comme nts MAGNESIUM (test code = MAG) 1.76 mg/dL 1.6-2.6 N THROMBOPLASTIN TIME [id number] 06:09:00* Test Item Value Reference Range Interpretation Comme nts THROMBOPLASTIN TIME PARTIAL (test code = PTT) 62.5 Seconds 25.0-39.5 H Therapeutic Rang e: 50.4 - 88.3 Seconds Effective 07/12/2018 CBC W/AUTO [id number] 05:59:00* Test Item Value Reference Range Interpretation Comme nts WHITE BLOOD CELL (test code = WBC) 9.1 x10 3/uL 4.5-11.0 N RED BLOOD CELL (test code = RBC) 4.15 x10 6/uL 4.00-5.60 N HEMOGLOBIN (test code = HGB) 12.5 g/dL 12.5-16.9 N HEMATOCRIT (test code = HCT) 37.6 % 37.5-50.7 N MEAN CELL VOLUME (test code = MCV) 90.6 fL 81.0-99.0 N MEAN CELL HGB (test code = MCH) 30.1 pg 27.0-33.0 N MEAN CELL HGB CONCETRATION (test code = MCHC) 33.2 g/dL 33.0-37.0 N RED CELL DISTRIBUTION WIDTH CV (test code = RDW) 13.3 % 11.5-14.5 N RED CELL DISTRIBUTION WIDTH SD (test code = RDW-SD) 43.5 fL 37.0-54.0 N PLATELET COUNT (test code = PLT) 160 x10 3/uL 150-400 N MEAN PLATELET VOLUME (test c ode = MPV) 11.9 fL 7.0-9.0 H NEUTROPHIL % (test code = NT%) 73.8 % 56.0-77.0 N IMMATURE GRANULOCYTE % (test code = IG%) 1.2 % 0.0-2.0 N LYMPHOCYTE % (test code = LY%) 9.0 % 14.0-32.0 L MONOCYTE % (test code = MO%) 11.4 % 4.8-9.0 H EOSINOPHIL % (test code = EO%) 3.7 % 0.3-3.7 N BASOPHIL % (test code = BA%) 0.9 % 0.0-2.0 N NUCLEATED RBC % (test code = NRBC%) 0.0 % 0-0 N NEUTROPHIL # (test code = NT#) 6.72 x10 3/uL 2.0-7.6 N IMMATURE GRANULOCYTE # (test code = IG#) 0.11 x10 3/uL 0.00-0.03 H LYMPHOCYTE # (test code = LY#) 0.82 x10 3/uL 1.0-3.8 L MONOCYTE # (test code = MO#) 1.04 x10 3/uL 0.1-0.8 H EOSINOPHIL # (test code = EO#) 0.34 x10 3/uL 0.0-0.2 H BASOPHIL # (test code = BA#) 0.08 x10 3/uL 0.0-0.2 N NUCLEATED RBC # (test code = NRBC#) 0.00 x10 3/uL 0.0-0.1 N GLUCOSE [id number] 22:41:00* Test Item Value Reference Range Interpretation Comme nts GLUCOSE BEDSIDE (test code = GLUBED) 326 MG/DL 70-110 H Performed by cer tified waxer operator at [facility] GLUCOSE [id number] 20:26:00* Test Item Value Reference Range Interpretation Comme nts GLUCOSE BEDSIDE (test code = GLUBED) 313 MG/DL 70-110 H Performed by cer tified waxer operator at [facility] GLUCOSE [id number] 16:27:00* Test Item Value Reference Range Interpretation Comme nts GLUCOSE BEDSIDE (test code = GLUBED) 343 MG/DL 70-110 H Performed by cer tified waxer operator at [facility] GLUCOSE [id number] 12:56:00* Test Item Value Reference Range Interpretation Comme nts GLUCOSE BEDSIDE (test code = GLUBED) 333 MG/DL 70-110 H Performed by cer tified waxer operator at [facility] GLUCOSE [id number] 07:54:00* Test Item Value Reference Range Interpretation Comme nts GLUCOSE BEDSIDE (test code = GLUBED) 245 MG/DL 70-110 H Performed by cer tified waxer operator at [facility] BASIC METABOLIC [id number] 06:03:00* Test Item Value Reference Range Interpretation Comme nts SODIUM (test code = NA) 134 mEq/L 134-147 N POTASSIUM (test code = K) 4.0 mEq/L 3.4-5.0 N CHLORIDE (test code = CL) 102 mEq/L 100-108 N CARBON DIOXIDE (test code = CO2) 25 mEq/l 21-33 N ANION GAP (test code = GAP) 11 0-20 N GLUCOSE (test code = GLU) 222 mg/dL 77-141 H BLOOD UREA NITROGEN (test code = BUN) 17 mg/dL 7-25 N GLOMERULAR FILTRATION RATE (test code = GFR) 82.0 80-90 N The Glomerular Filtration Rate is a calculated parameterbased on serum Creatinine, patient age and sex. GFR valuesless than 60 mL/min/1.73 square meters are indicative ofChronic Kidney Disease. Values less than 15 mL/min/1.73square meters indicate Kidney failure. The calculation forGFR is based on the CKD-EPI (202) calculation. This formulais race indifferent and is the recommended formula for GFRby the National Kidney Foundation for Adults.The GFR will not calculate if the sex is unknown or if thepatient's age is <18 years. CREATININE (test code = CREAT) 1.0 mg/dL 0.6-1.3 N CALCIUM (test code = CA) 9.1 mg/dL 8.0-10.5 N [id number] 06:03:00* Test Item Value Reference Range Interpretation Comme nts MAGNESIUM (test code = MAG) 1.89 mg/dL 1.6-2.6 N CBC W/AUTO [id number] 05:31:00* Test Item Value Reference Range Interpretation Comme nts WHITE BLOOD CELL (test code = WBC) 9.1 x10 3/uL 4.5-11.0 N RED BLOOD CELL (test code = RBC) 4.15 x10 6/uL 4.00-5.60 N HEMOGLOBIN (test code = HGB) 12.4 g/dL 12.5-16.9 L HEMATOCRIT (test code = HCT) 37.7 % 37.5-50.7 N MEAN CELL VOLUME (test code = MCV) 90.8 fL 81.0-99.0 N MEAN CELL HGB (test code = MCH) 29.9 pg 27.0-33.0 N MEAN CELL HGB CONCETRATION (test code = MCHC) 32.9 g/dL 33.0-37.0 L RED CELL DISTRIBUTION WIDTH CV (test code = RDW) 13.2 % 11.5-14.5 N RED CELL DISTRIBUTION WIDTH SD (test code = RDW-SD) 43.3 fL 37.0-54.0 N PLATELET COUNT (test code = PLT) 156 x10 3/uL 150-400 N MEAN PLATELET VOLUME (test c ode = MPV) 12.2 fL 7.0-9.0 H NEUTROPHIL % (test code = NT%) 76.5 % 56.0-77.0 N IMMATURE GRANULOCYTE % (test code = IG%) 0.9 % 0.0-2.0 N LYMPHOCYTE % (test code = LY%) 8.1 % 14.0-32.0 L MONOCYTE % (test code = MO%) 10.4 % 4.8-9.0 H EOSINOPHIL % (test code = EO%) 3.4 % 0.3-3.7 N BASOPHIL % (test code = BA%) 0.7 % 0.0-2.0 N NUCLEATED RBC % (test code = NRBC%) 0.0 % 0-0 N NEUTROPHIL # (test code = NT#) 6.95 x10 3/uL 2.0-7.6 N IMMATURE GRANULOCYTE # (test code = IG#) 0.08 x10 3/uL 0.00-0.03 H LYMPHOCYTE # (test code = LY#) 0.74 x10 3/uL 1.0-3.8 L MONOCYTE # (test code = MO#) 0.94 x10 3/uL 0.1-0.8 H EOSINOPHIL # (test code = EO#) 0.31 x10 3/uL 0.0-0.2 H BASOPHIL # (test code = BA#) 0.06 x10 3/uL 0.0-0.2 N NUCLEATED RBC # (test code = NRBC#) 0.00 x10 3/uL 0.0-0.1 N THROMBOPLASTIN TIME [id number] 05:26:00* Test Item Value Reference Range Interpretation Comme nts THROMBOPLASTIN TIME PARTIAL (test code = PTT) 61.5 Seconds 25.0-39.5 H Therapeutic Rang e: 50.4 - 88.3 Seconds Effective 07/12/2018 GLUCOSE [id number] 20:14:00* Test Item Value Reference Range Interpretation Comme nts GLUCOSE BEDSIDE (test code = GLUBED) 246 MG/DL 70-110 H Performed by cer tified waxer operator at [facility] GLUCOSE [id number] 16:51:00* Test Item Value Reference Range Interpretation Comme nts GLUCOSE BEDSIDE (test code = GLUBED) 280 MG/DL 70-110 H Performed by cer tified waxer operator at [facility] GLUCOSE [id number] 12:27:00* Test Item Value Reference Range Interpretation Comme nts GLUCOSE BEDSIDE (test code = GLUBED) 248 MG/DL 70-110 H Performed by cer tified waxer operator at [facility] GLUCOSE [id number] 08:02:00* Test Item Value Reference Range Interpretation Comme nts GLUCOSE BEDSIDE (test code = GLUBED) 229 MG/DL 70-110 H Performed by cer raul waxer operator at [facility] BASIC METABOLIC [id number] 04:25:00* Test Item Value Reference Range Interpretation Comme nts SODIUM (test code = NA) 134 mEq/L 134-147 N POTASSIUM (test code = K) 3.8 mEq/L 3.4-5.0 N CHLORIDE (test code = CL) 102 mEq/L 100-108 N CARBON DIOXIDE (test code = CO2) 23 mEq/l 21-33 N ANION GAP (test code = GAP) 13 0-20 N GLUCOSE (test code = GLU) 201 mg/dL 77-141 H BLOOD UREA NITROGEN (test code = BUN) 17 mg/dL 7-25 N GLOMERULAR FILTRATION RATE (test code = GFR) 93.0 80-90 H The Glomerular Filtration Rate is a calculated parameterbased on serum Creatinine, patient age and sex. GFR valuesless than 60 mL/min/1.73 square meters are indicative ofChronic Kidney Disease. Values less than 15 mL/min/1.73square meters indicate Kidney failure. The calculation forGFR is based on the CKD-EPI (2020) calculation. This formulais race indifferent and is the recommended formula for GFRby the National Kidney Foundation for Adults.The GFR will not calculate if the sex is unknown or if thepatient's age is <18 years. CREATININE (test code = CREAT) 0.9 mg/dL 0.6-1.3 N CALCIUM (test code = CA) 8.3 mg/dL 8.0-10.5 N [id number] 04:25:00* Test Item Value Reference Range Interpretation Comme nts MAGNESIUM (test code = MAG) 1.87 mg/dL 1.6-2.6 N THROMBOPLASTIN TIME [id number] 04:18:00* Test Item Value Reference Range Interpretation Comme nts THROMBOPLASTIN TIME PARTIAL (test code = PTT) 57.6 Seconds 25.0-39.5 H Therapeutic Rang e: 50.4 - 88.3 Seconds Effective 07/12/2018 CBC W/AUTO [id number] 03:51:00* Test Item Value Reference Range Interpretation Comme nts WHITE BLOOD CELL (test code = WBC) 8.0 x10 3/uL 4.5-11.0 N RED BLOOD CELL (test code = RBC) 3.88 x10 6/uL 4.00-5.60 L HEMOGLOBIN (test code = HGB) 11.7 g/dL 12.5-16.9 L HEMATOCRIT (test code = HCT) 35.4 % 37.5-50.7 L MEAN CELL VOLUME (test code = MCV) 91.2 fL 81.0-99.0 N MEAN CELL HGB (test code = MCH) 30.2 pg 27.0-33.0 N MEAN CELL HGB CONCETRATION (test code = MCHC) 33.1 g/dL 33.0-37.0 N RED CELL DISTRIBUTION WIDTH CV (test code = RDW) 13.1 % 11.5-14.5 N RED CELL DISTRIBUTION WIDTH SD (test code = RDW-SD) 43.1 fL 37.0-54.0 N PLATELET COUNT (test code = PLT) 135 x10 3/uL 150-400 L MEAN PLATELET VOLUME (test c ode = MPV) 12.4 fL 7.0-9.0 H NEUTROPHIL % (test code = NT%) 74.9 % 56.0-77.0 N IMMATURE GRANULOCYTE % (test code = IG%) 1.1 % 0.0-2.0 N LYMPHOCYTE % (test code = LY%) 8.7 % 14.0-32.0 L MONOCYTE % (test code = MO%) 10.9 % 4.8-9.0 H EOSINOPHIL % (test code = EO%) 3.6 % 0.3-3.7 N BASOPHIL % (test code = BA%) 0.8 % 0.0-2.0 N NUCLEATED RBC % (test code = NRBC%) 0.0 % 0-0 N NEUTROPHIL # (test code = NT#) 5.96 x10 3/uL 2.0-7.6 N IMMATURE GRANULOCYTE # (test code = IG#) 0.09 x10 3/uL 0.00-0.03 H LYMPHOCYTE # (test code = LY#) 0.69 x10 3/uL 1.0-3.8 L MONOCYTE # (test code = MO#) 0.87 x10 3/uL 0.1-0.8 H EOSINOPHIL # (test code = EO#) 0.29 x10 3/uL 0.0-0.2 H BASOPHIL # (test code = BA#) 0.06 x10 3/uL 0.0-0.2 N NUCLEATED RBC # (test code = NRBC#) 0.00 x10 3/uL 0.0-0.1 N GLUCOSE [id number] 20:32:00* Test Item Value Reference Range Interpretation Comme nts GLUCOSE BEDSIDE (test code = GLUBED) 239 MG/DL 70-110 H Performed by cer tified waxer operator at [facility] GLUCOSE [id number] 16:25:00* Test Item Value Reference Range Interpretation Comme nts GLUCOSE BEDSIDE (test code = GLUBED) 217 MG/DL 70-110 H Performed by cer tified waxer operator at [facility] GLUCOSE [id number] 13:03:00* Test Item Value Reference Range Interpretation Comme nts GLUCOSE BEDSIDE (test code = GLUBED) 284 MG/DL 70-110 H Performed by cer tified waxer operator at [facility] HEPATITIS C RNA BY [id number] 10:08:00* Test Item Value Reference Range Interpretation Comme nts HEPATITIS C RNA BY PCR-QUAL (test code = HCVRNAPCR) HCV Not Detected IU/mL See_Comment No evidence of active HCV infection. [Automated message] The system which generated this result transmitted reference range: (). The reference range was not used to interpret this result as normal/abnormal. GLUCOSE [id number] 08:59:00* Test Item Value Reference Range Interpretation Comme nts GLUCOSE BEDSIDE (test code = GLUBED) 182 MG/DL 70-110 H Performed by cer tified waxer operator at [facility] BASIC METABOLIC [id number] 05:47:00* Test Item Value Reference Range Interpretation Comme nts SODIUM (test code = NA) 134 mEq/L 134-147 N POTASSIUM (test code = K) 3.9 mEq/L 3.4-5.0 N CHLORIDE (test code = CL) 102 mEq/L 100-108 N CARBON DIOXIDE (test code = CO2) 24 mEq/l 21-33 N ANION GAP (test code = GAP) 12 0-20 N GLUCOSE (test code = GLU) 172 mg/dL 77-141 H BLOOD UREA NITROGEN (test code = BUN) 18 mg/dL 7-25 N GLOMERULAR FILTRATION RATE (test code = GFR) 93.0 80-90 H The Glomerular Filtration Rate is a calculated parameterbased on serum Creatinine, patient age and sex. GFR valuesless than 60 mL/min/1.73 square meters are indicative ofChronic Kidney Disease. Values less than 15 mL/min/1.73square meters indicate Kidney failure. The calculation forGFR is based on the CKD-EPI (2020) calculation. This formulais race indifferent and is the recommended formula for GFRby the National Kidney Foundation for Adults.The GFR will not calculate if the sex is unknown or if thepatient's age is <18 years. CREATININE (test code = CREAT) 0.9 mg/dL 0.6-1.3 N CALCIUM (test code = CA) 8.3 mg/dL 8.0-10.5 N [id number] 05:47:00* Test Item Value Reference Range Interpretation Comme nts MAGNESIUM (test code = MAG) 1.86 mg/dL 1.6-2.6 N CBC W/AUTO [id number] 05:21:00* Test Item Value Reference Range Interpretation Comme nts WHITE BLOOD CELL (test code = WBC) 7.7 x10 3/uL 4.5-11.0 N RED BLOOD CELL (test code = RBC) 3.97 x10 6/uL 4.00-5.60 L HEMOGLOBIN (test code = HGB) 11.9 g/dL 12.5-16.9 L HEMATOCRIT (test code = HCT) 35.9 % 37.5-50.7 L MEAN CELL VOLUME (test code = MCV) 90.4 fL 81.0-99.0 N MEAN CELL HGB (test code = MCH) 30.0 pg 27.0-33.0 N MEAN CELL HGB CONCETRATION (test code = MCHC) 33.1 g/dL 33.0-37.0 N RED CELL DISTRIBUTION WIDTH CV (test code = RDW) 13.2 % 11.5-14.5 N RED CELL DISTRIBUTION WIDTH SD (test code = RDW-SD) 43.3 fL 37.0-54.0 N PLATELET COUNT (test code = PLT) 152 x10 3/uL 150-400 N MEAN PLATELET VOLUME (test c ode = MPV) 11.8 fL 7.0-9.0 H NEUTROPHIL % (test code = NT%) 75.7 % 56.0-77.0 N IMMATURE GRANULOCYTE % (test code = IG%) 0.9 % 0.0-2.0 N LYMPHOCYTE % (test code = LY%) 7.6 % 14.0-32.0 L MONOCYTE % (test code = MO%) 11.0 % 4.8-9.0 H EOSINOPHIL % (test code = EO%) 4.0 % 0.3-3.7 H BASOPHIL % (test code = BA%) 0.8 % 0.0-2.0 N NUCLEATED RBC % (test code = NRBC%) 0.0 % 0-0 N NEUTROPHIL # (test code = NT#) 5.86 x10 3/uL 2.0-7.6 N IMMATURE GRANULOCYTE # (test code = IG#) 0.07 x10 3/uL 0.00-0.03 H LYMPHOCYTE # (test code = LY#) 0.59 x10 3/uL 1.0-3.8 L MONOCYTE # (test code = MO#) 0.85 x10 3/uL 0.1-0.8 H EOSINOPHIL # (test code = EO#) 0.31 x10 3/uL 0.0-0.2 H BASOPHIL # (test code = BA#) 0.06 x10 3/uL 0.0-0.2 N NUCLEATED RBC # (test code = NRBC#) 0.00 x10 3/uL 0.0-0.1 N THROMBOPLASTIN TIME [id number] 05:20:00* Test Item Value Reference Range Interpretation Comme [facility] THROMBOPLASTIN TIME PARTIAL (test code = PTT) 61.6 Seconds 25.0-39.5 H Therapeutic Rang e: 50.4 - 88.3 Seconds Effective 07/12/2018 THROMBOPLASTIN TIME [id number] 21:44:00* Test Item Value Reference Range Interpretation Comme nts THROMBOPLASTIN TIME PARTIAL (test code = PTT) 58.7 Seconds 25.0-39.5 H Therapeutic Rang e: 50.4 - 88.3 Seconds Effective 07/12/2018 GLUCOSE [id number] 20:44:00* Test Item Value Reference Range Interpretation Comme [facility] GLUCOSE BEDSIDE (test code = GLUBED) 242 MG/DL 70-110 H Performed by linda harpied waxer operator at [facility] GLUCOSE [id number] 16:54:00* Test Item Value Reference Range Interpretation Comme nts GLUCOSE BEDSIDE (test code = GLUBED) 218 MG/DL 70-110 H Performed by [facility] tifhelio waxer operator at [facility] - DUP EXTRACRANIAL [id number] 16:13:00 [facility] 1955 Sex: M Name: MINDY CARTER [facility] : 1955 Age/S: 67 / M [address] [place] [address] Blvd Unit #:[id number] Loc: [place] [address] Phys: Nathaniel Martel MD Acct: [id number] Dis Date: Status: ADM IN PHONE #: [phone] Exam Date: 06/05/20234 FAX #: [phone] Reason: Cardiac Surgery Pre Op EXAMS: CPT CODE: [id number] DUP EXTRACRANIAL BETH [address] EXAM: - DUP EXTRACRANIAL BETH LOCATION: H101 INDICATION/CLINICAL HISTORY: Cardiac Surgery Pre Op COMPARISON: None available. TECHNIQUE: 2D real time grayscale and color flow Doppler images of the extracranial carotid artery systems and vertebral arteries were acquired. In addition, Doppler spectral waveforms and peak systolic velocities were acquired. FINDINGS: There is mild atherosclerotic plaque in the right carotid bulb. CAROTID VELOCITIES MEASUREMENTS: RIGHT CCA - PSV: 65 cm/sec RIGHT ICA - PSV: 92 cm/sec RIGHT ECA - PSV: 102 cm/sec RIGHT ICA/CCA Ratio: 1.4 LEFT CCA - PSV: 85 cm/sec LEFT ICA - PSV: 74 cm/sec LEFT ECA - PSV: 105 cm/sec LEFT ICA/CCA Ratio: 0.9 VERTEBRAL ARTERIES FLOW: RIGHT VERTEBRAL - Antegrade LEFT VERTEBRAL -Antegrade IMPRESSION: 1. No hemodynamically significant stenosis of the extracranial internal carotid arteries. at 1613 Reported and signed by: Windy Verduzco M.D. PAGE 1 Signed Report (CONTINUED) Name: MINDY CARTER [facility] :1955 Age/S: 67 / M [address] [place] [address] Blvd Unit #: [id number] Loc: [place] [address] Phys: Nathaniel Martel MD Acct: [id number] Dis Date: Status: ADM IN PHONE #: [phone] Exam Date: 06/05/2023 1314 FAX #: [phone] Reason: Cardiac Surgery Pre Op EXAMS: CPT CODE: [id number] DUP EXTRACRANIAL B[place] [address]6810 (Continued) CC: Nathaniel Martel MD; Eleonora Mai MD; Denise Montejo MD Technologist: Luz Elena Farrell RDMS(AB)(OB) Trnscb Date/Time: 06/05/2023 (1613) t.SDR.TH15 Orig Print D/T: S: 06/05/2023 (1616) Probe: PAGE 2 Signed Report THROMBOPLASTIN TIME [id number] 14:56:00* Test Item Value Reference Range Interpretation Comme nts THROMBOPLASTIN TIME PARTIAL (test code = PTT) 70.9 Seconds 25.0-39.5 H Therapeutic Rang e: 50.4 - 88.3 Seconds Effective 07/12/2018 - DUP VEIN [id number] 14:08:00 [facility] 1955 Sex: M Name: MINDY CARTER [facility] EDJuju Lao : 1955 Age/S: 67 / M [address] [place] [address] Unit #:[id number] Loc: [place] [address] Phys: Nathaniel Martel MD Acct: [id number] Dis Date: Status: ADM IN PHONE #: [phone] Exam Date: 06/05/20231313 FAX #: [phone] Reason: Cardiac Surgery Pre Op EXAMS: CPT CODE: [id number] DUP VEIN BETH [address] EXAMINATION: - DUP VEIN BETH CLINICAL INDICATION: Male, 67 years old with Cardiac Surgery Pre Op TECHNIQUE: Grayscale, color Doppler, and spectral waveform analysis of the right lower extremity venous system was performed. COMPARISON: None FINDINGS: Vascular: Sonographic interrogation of the lower extremity venous system demonstrates appropriate darrius w. Right lower extremity GSV: Proximal thigh 6 mm Mid thigh 3 mm Distal thigh 3 mm Proximal calf 2 mm Mid calf 1 mm Distal calf 1 mm Left lower extremity GSV: Proximal thigh 6 mm Mid thigh 5 mm Distal thigh 3 mm Proximal calf 2 mm Mid calf 2 mm Distal calf 2 mm Soft tissues: No soft tissue abnormality. No extraluminal fluid collections are appreciated. IMPRESSION: 1. No evidence of venous thrombus. Vessel diameters outlined above. at 1408 Reported and signed by: Vadim Coelho M.D. PAGE 1 Signed Report (CONTINUED) Name: MINDY CARTER [facility] Declan Loa : 1955 Age/S: 67 / M [address] [place] [address] Unit #: [id number] Loc: [place] [address] Phys: Nathaniel Martel MD Acct: [id number] Dis Date: Status: ADM IN PHONE #: [phone] Exam Date: 06/05/20231313 FAX #: [phone] Reason: Cardiac Surgery Pre Op EXAMS: CPT CODE: [id number] DUP VEIN BETH [address] (Continued) CC: Nathaniel Martel MD; Eleonora Mai MD; Denise Montejo MD Technologist: Luz Elena Farrell RDMS(AB)(OB) Trnscb Date/Time: 06/05/2023 (4137)LandyJH12 Orig Print D/T: S: 06/05/2023 (2255) Probe: PAGE 2 Signed ReportGLUCOSE [id number] 12:02:00* Test Item Value Reference Range Interpretation Comme nts GLUCOSE BEDSIDE (test code = GLUBED) 240 MG/DL 70-110 H Performed by cer raul waxer operator at [facility] B-TYPE NATRIURETIC [id number] 06:09:00* Test Item Value Reference Range Interpretation Comme nts B-TYPE NATRIURETIC PEPTIDE ( test code = BNP) 311.0 PG/ML 0-100 H UA RFLX MICR CULT IF [id number] 05:45:00* Test Item Value Reference Range Interpretation Comme nts UA COLOR (test code = COLU) BAILEY YEL/STRAW A UA APPEARANCE (test code = APPU) CLEAR CLEAR UA GLUCOSE DIPSTICK (test co de = DGLUU) NEGATIVE NEGATIVE UA BILIRUBIN DIPSTICK (test code = BILU) NEGATIVE NEGATIVE UA KETONE DIPSTICK (test cod e = KETU) NEGATIVE NEGATIVE UA SPECIFIC GRAVITY (test co de = SGU) 1.014 1.005-1.030 N UA BLOOD DIPSTICK (test code = ELLIOT) NEGATIVE NEGATIVE UA PH DIPSTICK (test code = RADHA) 5.0 5.0-7.0 N UA PROTEIN DIPSTICK (test co de = PROU) 1+ NEGATIVE A UA UROBILINIOGEN DIPSTICK (test code = URO) 4.0 mg/dL 0.2-1.0 A UA NITRITE DIPSTICK (test co de = PATRICIA) NEGATIVE NEGATIVE UA LEUKOCYTE ESTERASE DIPSTI CK (test code = LEUU) NEGATIVE NEGATIVE UA WBC (test code = WBCU) 0-3 WBC/HPF 0-3 UA RBC (test code = RBCU) 0-3 RBC/HPF 0-3 UA WBC NO REFLEX (test code = WBCUCL) 0-3 WBC/HPF 0-3 UA BACTERIA (test code = BACU) NONE SEEN /HPF NONE SEEN UA SQUAMOUS CELLS (test code = SQU) 0-5 /HPF NONE SEEN UA MUCUS (test code = MUCU) TRACE /LPF NONE SEEN Indication for culture: Flank Pain RiskForSepsis-no oth srcSpecimen Description: CLEAN CATCHPROTHROMBIN [id number] 05:44:00* Test Item Value Reference Range Interpretation Comme nts PROTHROMBIN TIME PATIENT (test code = PTP) 12.8 SECONDS 9.3-12.9 N INTERNATIONAL NORMAL RATIO (test code = INR) 1.2 0.8-1.2 N TARGET INR BY INDICATION Indication INR1. Prophylaxis of venous thrombosis 2.0 - 3.0 (orthopedic surgery), Prophylaxis of venous thrombosis (other than high-risk surgery), Treatment of Deep Vein Thrombosis/Pulmonary Embolism, Prevention of systemic embolism - Tissue heart valves, Acute Myocardial Infarction (to prevent systemic embolism), Valvular heart disease, Atrial Fibrillation, Bileaflet mechanical valve in aortic position.2. Mechanical prosthetic valves (high risk), 2.5 - 3.5 Presence of Lupus Anticoagulant or Antiphospholipid Antibodies, Prevention of systemic embolism - Acute Myocardial Infarction (to prevent recurrent infarct). THROMBOPLASTIN TIME [id number] 05:44:00* Test Item Value Reference Range Interpretation Comme nts THROMBOPLASTIN TIME PARTIAL (test code = PTT) 76.7 Seconds 25.0-39.5 H Therapeutic Rang e: 50.4 - 88.3 Seconds Effective 07/12/2018 COMPREHENSIVE METABOLIC [id number] 05:41:00* Test Item Value Reference Range Interpretation Comme nts SODIUM (test code = NA) 135 mEq/L 134-147 N POTASSIUM (test code = K) 3.7 mEq/L 3.4-5.0 N CHLORIDE (test code = CL) 102 mEq/L 100-108 N CARBON DIOXIDE (test code = CO2) 25 mEq/l 21-33 N ANION GAP (test code = GAP) 12 0-20 N GLUCOSE (test code = GLU) 186 mg/dL 77-141 H BLOOD UREA NITROGEN (test code = BUN) 17 mg/dL 7-25 N GLOMERULAR FILTRATION RATE (test code = GFR) 96.4 80-90 H The Glomerular Filtration Rate is a calculated parameterbased on serum Creatinine, patient age and sex. GFR valuesless than 60 mL/min/1.73 square meters are indicative ofChronic Kidney Disease. Values less than 15 mL/min/1.73square meters indicate Kidney failure. The calculation forGFR is based on the CKD-EPI (2020) calculation. This formulais race indifferent and is the recommended formula for GFRby the National Kidney Foundation for Adults.The GFR will not calculate if the sex is unknown or if thepatient's age is <18 years. CREATININE (test code = CREAT) 0.8 mg/dL 0.6-1.3 N TOTAL PROTEIN (test code = PROT) 6.8 g/dL 6.4-8.2 N ALBUMIN (test code = ALB) 3.20 g/dL 3.4-5.0 L CALCIUM (test code = CA) 8.6 mg/dL 8.0-10.5 N BILIRUBIN TOTAL (test code = BILT) 0.80 mg/dL 0.0-1.0 N SGOT/AST (test code = AST) 42 IUnit/L 8-34 H SGPT/ALT (test code = ALT) 44 IUnit/L 10-49 N ALKALINE PHOSPHATASE TOTAL (test code = ALKP) 149 IUnit/L 20-125 H LIPID PROFILE (CORONARY RISK)2023-06-05 05:41:00* Test Item Value Reference Range Interpretation Comme nts TRIGLYCERIDES (test code = TRIG) 112 mg/dL 40-150 N CHOLESTEROL (test code = CHOL) 124 mg/dL <200 CHOLESTEROL/HDL RATIO (test code = CHOLHDL) 3.16 RATIO 3.43-4.97 L RISK ASSOCIATED WITH CHOL/HDL RATIOS: RISK MALE FEMALE1/2 AVERAGE 3.43 3.27AVERAGE 4.97 4.442X AVERAGE 9.55 7.053X AVERAGE 23.39 11.04 NOTE THAT THE REFERENCE VALUE IS RELATEDTO RISK LEVELS RECOMMENDED BY THE NATL.HEART, LUNG, AND BLOOD INST. HDL CHOLESTEROL (test code = HDL) 39.3 MG/DL 40-60 L HDL Interpreta tion < 40.0 mg/dL Low (undesirable, high risk)> 60.0 mg/dL High (desirable, low risk) Reference interval for healthy adults was established by theNational Cholesterol Education Program (NCEP). LIPOPROTEIN LDL (test code = LDL) 72.0 mg/dL 0-100 N <100 YYSFZUP50 0-129 NEAR OPTIMAL/ABOVE [id number] HIGH>PX=214 VERY HIGH*Guidelines provided by the National Cholesterol EducationProgram Adult Treatment Panel III CBC W/AUTO [id number] 05:22:00* Test Item Value Reference Range Interpretation Comme nts WHITE BLOOD CELL (test code = WBC) 7.8 x10 3/uL 4.5-11.0 N RED BLOOD CELL (test code = RBC) 4.04 x10 6/uL 4.00-5.60 N HEMOGLOBIN (test code = HGB) 12.1 g/dL 12.5-16.9 L HEMATOCRIT (test code = HCT) 36.6 % 37.5-50.7 L MEAN CELL VOLUME (test code = MCV) 90.6 fL 81.0-99.0 N MEAN CELL HGB (test code = MCH) 30.0 pg 27.0-33.0 N MEAN CELL HGB CONCETRATION (test code = MCHC) 33.1 g/dL 33.0-37.0 N RED CELL DISTRIBUTION WIDTH CV (test code = RDW) 13.0 % 11.5-14.5 N RED CELL DISTRIBUTION WIDTH SD (test code = RDW-SD) 42.8 fL 37.0-54.0 N PLATELET COUNT (test code = PLT) 152 x10 3/uL 150-400 N MEAN PLATELET VOLUME (test c ode = MPV) 11.5 fL 7.0-9.0 H NEUTROPHIL % (test code = NT%) 76.4 % 56.0-77.0 N IMMATURE GRANULOCYTE % (test code = IG%) 0.8 % 0.0-2.0 N LYMPHOCYTE % (test code = LY%) 7.8 % 14.0-32.0 L MONOCYTE % (test code = MO%) 10.5 % 4.8-9.0 H EOSINOPHIL % (test code = EO%) 3.6 % 0.3-3.7 N BASOPHIL % (test code = BA%) 0.9 % 0.0-2.0 N NUCLEATED RBC % (test code = NRBC%) 0.0 % 0-0 N NEUTROPHIL # (test code = NT#) 5.98 x10 3/uL 2.0-7.6 N IMMATURE GRANULOCYTE # (test code = IG#) 0.06 x10 3/uL 0.00-0.03 H LYMPHOCYTE # (test code = LY#) 0.61 x10 3/uL 1.0-3.8 L MONOCYTE # (test code = MO#) 0.82 x10 3/uL 0.1-0.8 H EOSINOPHIL # (test code = EO#) 0.28 x10 3/uL 0.0-0.2 H BASOPHIL # (test code = BA#) 0.07 x10 3/uL 0.0-0.2 N NUCLEATED RBC # (test code = NRBC#) 0.00 x10 3/uL 0.0-0.1 N COMMENTS: Daily while on heparin drip- XR CHEST 1 [id number] 22:49:00 [facility] 1955 Sex: M FAX: Nathaniel Shirley MD [phone] [place]: St: ADM FAX: Eleonora Mai MD [phone] FAX:Denise Montejo MD Name: RAULMINDY [facility] : 1955 Age/S: 67/M [address] [place] [address] Blvd Unit #: [id number] Loc: [address] [place] [address] Phys: Nathaniel Martel MD Acct: [id number] Dis Date: Status: ADM IN PHONE #: [phone] Exam Date: 06/04/2023 1756 FAX #: [phone] Reason: Cardiac Surgery Pre Op EXAMS: CPT CODE: [id number] XR CHEST 1 V 01211 HISTORY: Cardiac surgery. Location code: [id number]: Frontal view of the chest demonstrates minimally enlarged cardiomediastinal silhouette. The trachea is midline. Mild left basilar atelectasis. The lungs are otherwise clear. There is no effusion or pneumothorax. The bones are intact. IMPRESSION: Mild left basilar atelectasis at 2249 Reported and signed by: Erick Hogan M.D. CC: Nathaniel Martel MD; Eleonora Mai MD; Denise Montejo MD Technologist: RT Maryse(R) Trnscrd Date/Time/By: 06/04/2023 (2248) : By: LandyRK5 Orig Print D/T: S: 06/04/2023 (7292) PAGE 1 Si gned Report- CT CHEST W/O [id number] 21:49:00 [facility] 1955 Sex: M Name: MINDY CARTER [facility] : 1955 Age/S: 67 / M [address] [place] [address] Unit #: [id number] Loc: [place] [address] Phys: Nathaniel Martel MD Acct: [id number] Dis Date: Status: ADM IN PHONE #: [phone] Exam Date: 06/04/2023 1638 FAX #: [phone] Reason: Cardiac Surgery Pre Op EXAMS: CPT CODE: [id number] CT CHEST W/O CONTRAST 48570 EXAMINATION: - CT CHEST W/O CONTRAST CLINICAL INDICATION: Male, 67 years old with Cardiac Surgery Pre Op TECHNIQUE: Axial non-contrast contiguous images were obtained through the chest followed by coronal and sagittal multiplanar reformations. One or more of the following dose reduction techniques were used: Automated exposure control, adjustment of the mA and/or kV according to patient size, and/or iterative reconstruction. COMPARISON : None FINDINGS: Chest: Medical Devices: None. Lymph Nodes: Right paratracheal 9 mm lymph node is present. Lungs/Airways/Pleura: Trachea and main bronchi are patent. Patchy areas of groundglass attenuation are present bilaterally, with basilar atelectasis. Findings may represent viral pneumonitis. No pneumothorax is identified. Left major fissure 5.6 mm perifissural lymph node identified. Superior segment of the left lower lobe is remarkable for an ovoid 6.9 mm noncalcified pulmonary nodule. There is a faint area of nodularity involving the right lower lobe measuring 4.6 mm. Per Fleischner Society Guidelines, recommend a non-contrast Chest CT at 3-6 months, then consider another non-contrast Chest CT at 18-24 months. If patient is low risk for malignancy, non-contrast Chest CT at 18-24 months is optional. These guidelines do not apply to immunocompromised patients and patients with cancer. Follow up in patients with significant comorbidities as clinically warranted. For lung cancer screening, adhere to Lung-RADS guidelines. Reference: Radiology. 2017; 284(1):228-43. Small bilateral pleural effusion. Heart/Vessels: Heart is normal in size. No coronary artery atherosclerosis is identified. No pericardial effusion is present. Aorta is normal in caliber and contour. No atherosclerosis is identified. Central pulmonary arteries are normal in size. Soft Tissues: Visualized thyroid gland is normal. The esophagus is normal. No soft tissue abnormality of the chest is demonstrated. PAGE 1 Signed Report (CONTINUED) Name: MINDY CARTER [facility] [place] : 1955 Age/S: 67 / M [address] [place] [address] Unit #: [id number] Loc: [place] [address] Phys: Nathaniel Martel MD Acct: [id number] Dis Date: Status: ADM IN PHONE #: [phone] Exam Date: 06/04/2023 1638 FAX #: [phone] Reason: Cardiac Surgery Pre Op EXAMS: CPT CODE: [id number] CT CHEST W/O CONTRAST 63284 (Continued) Upper Abdomen: Abdomen: Cirrhotic change of the liver is identified. Heterogeneous density noted.Cholelithiasis. Bones: No acute abnormality or suspicious bony lesion. IMPRESSION: 1. Patchy areas of groundglass attenuation bilaterally suggest pneumonitis, possibly viral. 2. Left lower lobe nodularity is present, follow-up noncontrast chest CT in 3-6 months recommended. Additional recommendations above. at 2148 Reported andsigned by: Vadim Coelho M.D. CC: Nathaniel Martel MD; Eleonora Mai MD; Denise Montejo MD Technologist:Jm Alexander Jr, RT(R)(CT) CTDI: DLP: Trnscb Date/Time: 06/04/2023 (2148) t.JAHR.JH12 [facility] D/T: S: 06/04/2023 (2151) PAGE 2 Signed Report GLUCOSE [id number] 19:20:00* Test Item Value Reference Range Interpretation Comme nts GLUCOSE BEDSIDE (test code = GLUBED) 284 MG/DL 70-110 H Performed by [facility] tified waxer operator at [facility] GLUCOSE [id number] 17:02:00* Test Item Value Reference Range Interpretation Comme nts GLUCOSE BEDSIDE (test code = GLUBED) 236 MG/DL 70-110 H Performed by cer tified waxer operator at [facility] GLUCOSE [id number] 12:21:00* Test Item Value Reference Range Interpretation Comme nts GLUCOSE BEDSIDE (test code = GLUBED) 301 MG/DL 70-110 H Performed by [facility] tified waxer operator at [facility] THROMBOPLASTIN TIME [id number] 10:12:00* Test Item Value Reference Range Interpretation Comme nts THROMBOPLASTIN TIME PARTIAL (test code = PTT) 74.9 Seconds 25.0-39.5 H Therapeutic Rang e: 50.4 - 88.3 Seconds Effective 07/12/2018 COMMENTS: COMPARE PTT TO PTS HEPRINE PARAMETERS. KEEP PTT WITHIN GOAL:55-75 GLUCOSE [id number] 07:29:00* Test Item Value Reference Range Interpretation Comme nts GLUCOSE BEDSIDE (test code = GLUBED) 188 MG/DL 70-110 H Performed by cer raul waxer operator at [facility] COMPREHENSIVE METABOLIC [id number] 04:27:00* Test Item Value Reference Range Interpretation Comme nts SODIUM (test code = NA) 137 mEq/L 134-147 N POTASSIUM (test code = K) 3.7 mEq/L 3.4-5.0 N CHLORIDE (test code = CL) 104 mEq/L 100-108 N CARBON DIOXIDE (test code = CO2) 25 mEq/l 21-33 N ANION GAP (test code = GAP) 11 0-20 N GLUCOSE (test code = GLU) 159 mg/dL 77-141 H BLOOD UREA NITROGEN (test code = BUN) 20 mg/dL 7-25 N GLOMERULAR FILTRATION RATE (test code = GFR) 93.0 80-90 H The Glomerular Filtration Rate is a calculated parameterbased on serum Creatinine, patient age and sex. GFR valuesless than 60 mL/min/1.73 square meters are indicative ofChronic Kidney Disease. Values less than 15 mL/min/1.73square meters indicate Kidney failure. The calculation forGFR is based on the CKD-EPI (2021) calculation. This formulais race indifferent and is the recommended formula for GFRby the National Kidney Foundation for Adults.The GFR will not calculate if the sex is unknown or if thepatient's age is <18 years. CREATININE (test code = CREAT) 0.9 mg/dL 0.6-1.3 N TOTAL PROTEIN (test code = PROT) 6.6 g/dL 6.4-8.2 N ALBUMIN (test code = ALB) 3.00 g/dL 3.4-5.0 L CALCIUM (test code = CA) 8.5 mg/dL 8.0-10.5 N BILIRUBIN TOTAL (test code = BILT) 0.70 mg/dL 0.0-1.0 N SGOT/AST (test code = AST) 49 IUnit/L 8-34 H SGPT/ALT (test code = ALT) 42 IUnit/L 10-49 N ALKALINE PHOSPHATASE TOTAL (test code = ALKP) 144 IUnit/L 20-125 H [id number] 04:27:00* Test Item Value Reference Range Interpretation Comme nts MAGNESIUM (test code = MAG) 1.82 mg/dL 1.6-2.6 N CBC W/AUTO [id number] 04:03:00* Test Item Value Reference Range Interpretation Comme nts WHITE BLOOD CELL (test code = WBC) 6.8 x10 3/uL 4.5-11.0 N RED BLOOD CELL (test code = RBC) 4.06 x10 6/uL 4.00-5.60 N HEMOGLOBIN (test code = HGB) 12.1 g/dL 12.5-16.9 L HEMATOCRIT (test code = HCT) 37.6 % 37.5-50.7 N MEAN CELL VOLUME (test code = MCV) 92.6 fL 81.0-99.0 N MEAN CELL HGB (test code = MCH) 29.8 pg 27.0-33.0 N MEAN CELL HGB CONCETRATION (test code = MCHC) 32.2 g/dL 33.0-37.0 L RED CELL DISTRIBUTION WIDTH CV (test code = RDW) 13.0 % 11.5-14.5 N RED CELL DISTRIBUTION WIDTH SD (test code = RDW-SD) 44.0 fL 37.0-54.0 N PLATELET COUNT (test code = PLT) 151 x10 3/uL 150-400 N MEAN PLATELET VOLUME (test c ode = MPV) 11.9 fL 7.0-9.0 H NEUTROPHIL % (test code = NT%) 73.4 % 56.0-77.0 N IMMATURE GRANULOCYTE % (test code = IG%) 0.6 % 0.0-2.0 N LYMPHOCYTE % (test code = LY%) 9.7 % 14.0-32.0 L MONOCYTE % (test code = MO%) 11.2 % 4.8-9.0 H EOSINOPHIL % (test code = EO%) 4.4 % 0.3-3.7 H BASOPHIL % (test code = BA%) 0.7 % 0.0-2.0 N NUCLEATED RBC % (test code = NRBC%) 0.0 % 0-0 N NEUTROPHIL # (test code = NT#) 4.98 x10 3/uL 2.0-7.6 N IMMATURE GRANULOCYTE # (test code = IG#) 0.04 x10 3/uL 0.00-0.03 H LYMPHOCYTE # (test code = LY#) 0.66 x10 3/uL 1.0-3.8 L MONOCYTE # (test code = MO#) 0.76 x10 3/uL 0.1-0.8 N EOSINOPHIL # (test code = EO#) 0.30 x10 3/uL 0.0-0.2 H BASOPHIL # (test code = BA#) 0.05 x10 3/uL 0.0-0.2 N NUCLEATED RBC # (test code = NRBC#) 0.00 x10 3/uL 0.0-0.1 N COMMENTS: Daily while on heparin dripGLUCOSE [id number] 19:09:00* Test Item Value Reference Range Interpretation Comme nts GLUCOSE BEDSIDE (test code = GLUBED) 272 MG/DL 70-110 H Performed by [employer] waxer operator at [facility] GLUCOSE [id number] 17:43:00* Test Item Value Reference Range Interpretation Comme nts GLUCOSE BEDSIDE (test code = GLUBED) 239 MG/DL 70-110 H Performed by [employer] waxer operator at [facility] GLUCOSE [id number] 12:25:00* Test Item Value Reference Range Interpretation Comme nts GLUCOSE BEDSIDE (test code = GLUBED) 290 MG/DL 70-110 H Performed by [employer] waxer operator at [facility] THROMBOPLASTIN TIME [id number] 10:22:00* Test Item Value Reference Range Interpretation Comme nts THROMBOPLASTIN TIME PARTIAL (test code = PTT) 69.0 Seconds 25.0-39.5 H Therapeutic Rang e: 50.4 - 88.3 Seconds Effective 07/12/2018 GLUCOSE [id number] 07:54:00* Test Item Value Reference Range Interpretation Comme nts GLUCOSE BEDSIDE (test code = GLUBED) 190 MG/DL 70-110 H Performed by [employer] waxer operator at [facility] ACUTE HEPATITIS [id number] 07:02:00* Test Item Value Reference Range Interpretation Comme nts AB HEPATITIS A IGM (test code = HAVMAB) NON REACTIVE INDEX NON REACT. AG HEPATITIS B SURFACE (test code = HBSAG) NON REACTIVE INDEX NonReactive AB HEPATITIS B CORE IGM (test code = HBCMAB) NON REACTIVE INDEX NON REACT. AB HEPATITIS C (test code = HCVAB) REACTIVE INDEX NON REACT. A A reactive antib susie test is not diagnostic of activehepatitis C infection. A confirmatory test such as a NucleicAcid Test for HCV RNA test is recommended if clinicallyindicated. COMPREHENSIVE METABOLIC [id number] 05:51:00* Test Item Value Reference Range Interpretation Comme nts SODIUM (test code = NA) 138 mEq/L 134-147 N POTASSIUM (test code = K) 3.8 mEq/L 3.4-5.0 N CHLORIDE (test code = CL) 105 mEq/L 100-108 N CARBON DIOXIDE (test code = CO2) 23 mEq/l 21-33 N ANION GAP (test code = GAP) 14 0-20 N GLUCOSE (test code = GLU) 185 mg/dL 77-141 H BLOOD UREA NITROGEN (test code = BUN) 21 mg/dL 7-25 N GLOMERULAR FILTRATION RATE (test code = GFR) 82.0 80-90 N The Glomerular Filtration Rate is a calculated parameterbased on serum Creatinine, patient age and sex. GFR valuesless than 60 mL/min/1.73 square meters are indicative ofChronic Kidney Disease. Values less than 15 mL/min/1.73square meters indicate Kidney failure. The calculation forGFR is based on the CKD-EPI (202) calculation. This formulais race indifferent and is the recommended formula for GFRby the National Kidney Foundation for Adults.The GFR will not calculate if the sex is unknown or if thepatient's age is <18 years. CREATININE (test code = CREAT) 1.0 mg/dL 0.6-1.3 N TOTAL PROTEIN (test code = PROT) 6.6 g/dL 6.4-8.2 N ALBUMIN (test code = ALB) 3.10 g/dL 3.4-5.0 L CALCIUM (test code = CA) 8.2 mg/dL 8.0-10.5 N BILIRUBIN TOTAL (test code = BILT) 0.80 mg/dL 0.0-1.0 SGOT/AST (test code = AST) 42 IUnit/L 8-34 H SGPT/ALT (test code = ALT) 33 IUnit/L 10-49 N ALKALINE PHOSPHATASE TOTAL (test code = ALKP) 141 IUnit/L 20-125 H CBC W/AUTO [id number] 05:35:00* Test Item Value Reference Range Interpretation Comme nts WHITE BLOOD CELL (test code = WBC) 7.6 x10 3/uL 4.5-11.0 N RED BLOOD CELL (test code = RBC) 4.14 x10 6/uL 4.00-5.60 N HEMOGLOBIN (test code = HGB) 12.5 g/dL 12.5-16.9 N HEMATOCRIT (test code = HCT) 38.7 % 37.5-50.7 N MEAN CELL VOLUME (test code = MCV) 93.5 fL 81.0-99.0 N MEAN CELL HGB (test code = MCH) 30.2 pg 27.0-33.0 N MEAN CELL HGB CONCETRATION (test code = MCHC) 32.3 g/dL 33.0-37.0 L RED CELL DISTRIBUTION WIDTH CV (test code = RDW) 13.1 % 11.5-14.5 N RED CELL DISTRIBUTION WIDTH SD (test code = RDW-SD) 45.1 fL 37.0-54.0 N PLATELET COUNT (test code = PLT) 155 x10 3/uL 150-400 N MEAN PLATELET VOLUME (test c ode = MPV) 11.7 fL 7.0-9.0 H NEUTROPHIL % (test code = NT%) 75.5 % 56.0-77.0 N IMMATURE GRANULOCYTE % (test code = IG%) 0.5 % 0.0-2.0 N LYMPHOCYTE % (test code = LY%) 8.3 % 14.0-32.0 L MONOCYTE % (test code = MO%) 11.5 % 4.8-9.0 H EOSINOPHIL % (test code = EO%) 3.7 % 0.3-3.7 N BASOPHIL % (test code = BA%) 0.5 % 0.0-2.0 N NUCLEATED RBC % (test code = NRBC%) 0.0 % 0-0 N NEUTROPHIL # (test code = NT#) 5.70 x10 3/uL 2.0-7.6 N IMMATURE GRANULOCYTE # (test code = IG#) 0.04 x10 3/uL 0.00-0.03 H LYMPHOCYTE # (test code = LY#) 0.63 x10 3/uL 1.0-3.8 L MONOCYTE # (test code = MO#) 0.87 x10 3/uL 0.1-0.8 H EOSINOPHIL # (test code = EO#) 0.28 x10 3/uL 0.0-0.2 H BASOPHIL # (test code = BA#) 0.04 x10 3/uL 0.0-0.2 N NUCLEATED RBC # (test code = NRBC#) 0.00 x10 3/uL 0.0-0.1 N COMMENTS: Daily while on heparin dripPROTHROMBIN [id number] 05:31:00* Test Item Value Reference Range Interpretation Comme nts PROTHROMBIN TIME PATIENT (test code = PTP) 12.7 SECONDS 9.3-12.9 N INTERNATIONAL NORMAL RATIO (test code = INR) 1.1 0.8-1.2 N TARGET INR BY INDICATION Indication INR1. Prophylaxis of venous thrombosis 2.0 - 3.0 (orthopedic surgery), Prophylaxis of venous thrombosis (other than high-risk surgery), Treatment of Deep Vein Thrombosis/Pulmonary Embolism, Prevention of systemic embolism - Tissue heart valves, Acute Myocardial Infarction (to prevent systemic embolism), Valvular heart disease, Atrial Fibrillation, Bileaflet mechanical valve in aortic position.2. Mechanical prosthetic valves (high risk), 2.5 - 3.5 Presence of Lupus Anticoagulant or Antiphospholipid Antibodies, Prevention of systemic embolism - Acute Myocardial Infarction (to prevent recurrent infarct). THROMBOPLASTIN TIME [id number] 04:28:00* Test Item Value Reference Range Interpretation Comme nts THROMBOPLASTIN TIME PARTIAL (test code = PTT) 63.5 Seconds 25.0-39.5 H Therapeutic Rang e: 50.4 - 88.3 Seconds Effective 07/12/2018 GLUCOSE [id number] 02:54:00* Test Item Value Reference Range Interpretation Comme [facility] GLUCOSE BEDSIDE (test code = GLUBED) 296 MG/DL 70-110 H Performed by cer raul waxer operator at [facility] THROMBOPLASTIN TIME [id number] 22:20:00* Test Item Value Reference Range Interpretation Comme [facility] THROMBOPLASTIN TIME PARTIAL (test code = PTT) 52.6 Seconds 25.0-39.5 H Therapeutic Rang e: 50.4 - 88.3 Seconds Effective 07/12/2018 THROMBOPLASTIN TIME [id number] 17:02:00* Test Item Value Reference Range Interpretation Comme [facility] THROMBOPLASTIN TIME PARTIAL (test code = PTT) 79.1 Seconds 25.0-39.5 H Therapeutic Rang e: 50.4 - 88.3 Seconds Effective 07/12/2018 GLUCOSE [id number] 16:16:00* Test Item Value Reference Range Interpretation Comme [facility] GLUCOSE BEDSIDE (test code = GLUBED) 167 MG/DL 70-110 H Performed by cer raul waxer operator at [facility] - US ABDOMEN [id number] 15:58:00 [facility] 1955 Sex: M Name: MINDY CARTER [facility] : 1955 Age/S: 67 / M [address] [place] [address] Blvd Unit #: [id number] Loc: [place] [address] Phys: Nathaniel Martel MD Acct: [id number] Dis Date: Status: ADM IN PHONE #: [phone] Exam Date: 06/02/2023 1443 FAX #: [phone] Reason: cirrhosis EXAMS:CPT CODE: [id number] US ABDOMEN COMPLETE [id number] Dictation location: C4. COMPLETE ABDOMINAL ULTRASOUND HISTORY: cirrhosis FINDINGS: The proximal aorta and IVC are unremarkable. Visualized portions of pancreas are unremarkable. The liver measures 16 cm with a nodular and coarsened echotexture. No definite focal hepatic lesion. The portal vein is patent. The gallbladder is distended and contains gallstones and sludge. The roberto appear thickened measuring 8 mm. No pericholecystic fluid. No Osuna sign. The common bile duct measures up to 4 mm. The right kidney measures 11.6 x 5 x 3 cm. The left kidney measures 10.4 x 4.4 x 4.8 cm. The echotexture is within normal limits. No hydronephrosis, nephrolithiasis or perirenal fluid collection. The spleen is enlarged measuring 16 cm. No ascites. IMPRESSION: Cirrhosis with splenomegaly. No definite ascites. Cholelithiasis. No pericholecystic fluid. The gallbladder roberto appear thickened and and may be secondary to the chronic liver disease. Cholecystitis cannot be excluded. [id number] Reported and signed by: Elio Pimentel M.D. CC: Nathaniel Martel MD; Eleonora Mai MD Technologist: Kirsty Banegas RDMS(AB) Trnscb Date/Time: 06/02/2023 (1559) [email or web address] Orig Print D/T: S: 06/02/2023 (1605) Probe: PAGE 1 Signed ReportGLUCOSE [id number] 11:31:00* Test Item Value Reference Range Interpretation Comme nts GLUCOSE BEDSIDE (test code = GLUBED) 252 MG/DL 70-110 H Performed by linda carter waxer operator at [facility] HEPATIC FUNCTION [id number] 10:58:00* Test Item Value Reference Range Interpretation Comme nts TOTAL PROTEIN (test code = PROT) 7.1 g/dL 6.4-8.2 N ALBUMIN (test code = ALB) 3.10 g/dL 3.4-5.0 L BILIRUBIN TOTAL (test code = BILT) 1.10 mg/dL 0.0-1.0 H BILIRUBIN DIRECT (test code = BILD) 0.50 MG/DL 0.1-0.3 H BILIRUBIN INDIRECT (test cod e = BILIND) 0.60 MG/DL SGOT/AST (test code = AST) 38 IUnit/L 8-34 H SGPT/ALT (test code = ALT) 29 IUnit/L 10-49 N ALKALINE PHOSPHATASE TOTAL ( test code = ALKP) 128 IUnit/L 20-125 H THROMBOPLASTIN TIME [id number] 10:48:00* Test Item Value Reference Range Interpretation Comme [facility] THROMBOPLASTIN TIME PARTIAL (test code = PTT) 71.3 Seconds 25.0-39.5 H Therapeutic Rang e: 50.4 - 88.3 Seconds Effective 07/12/2018 GLUCOSE [id number] 07:49:00* Test Item Value Reference Range Interpretation Comme nts GLUCOSE BEDSIDE (test code = GLUBED) 222 MG/DL 70-110 H Performed by linda carter waxer operator at [facility] CBC W/AUTO [id number] 06:05:00* Test Item Value Reference Range Interpretation Comme nts WHITE BLOOD CELL (test code = WBC) 7.7 x10 3/uL 4.5-11.0 N RED BLOOD CELL (test code = RBC) 4.12 x10 6/uL 4.00-5.60 N HEMOGLOBIN (test code = HGB) 12.4 g/dL 12.5-16.9 L HEMATOCRIT (test code = HCT) 38.3 % 37.5-50.7 N MEAN CELL VOLUME (test code = MCV) 93.0 fL 81.0-99.0 N MEAN CELL HGB (test code = MCH) 30.1 pg 27.0-33.0 N MEAN CELL HGB CONCETRATION (test code = MCHC) 32.4 g/dL 33.0-37.0 L RED CELL DISTRIBUTION WIDTH CV (test code = RDW) 13.2 % 11.5-14.5 N RED CELL DISTRIBUTION WIDTH SD (test code = RDW-SD) 44.8 fL 37.0-54.0 N PLATELET COUNT (test code = PLT) 157 x10 3/uL 150-400 N MEAN PLATELET VOLUME (test c ode = MPV) 12.2 fL 7.0-9.0 H NEUTROPHIL % (test code = NT%) 80.6 % 56.0-77.0 H IMMATURE GRANULOCYTE % (test code = IG%) 0.5 % 0.0-2.0 N LYMPHOCYTE % (test code = LY%) 6.5 % 14.0-32.0 L MONOCYTE % (test code = MO%) 9.5 % 4.8-9.0 H EOSINOPHIL % (test code = EO%) 2.2 % 0.3-3.7 N BASOPHIL % (test code = BA%) 0.7 % 0.0-2.0 N NUCLEATED RBC % (test code = NRBC%) 0.0 % 0-0 N NEUTROPHIL # (test code = NT#) 6.20 x10 3/uL 2.0-7.6 N IMMATURE GRANULOCYTE # (test code = IG#) 0.04 x10 3/uL 0.00-0.03 H LYMPHOCYTE # (test code = LY#) 0.50 x10 3/uL 1.0-3.8 L MONOCYTE # (test code = MO#) 0.73 x10 3/uL 0.1-0.8 N EOSINOPHIL # (test code = EO#) 0.17 x10 3/uL 0.0-0.2 N BASOPHIL # (test code = BA#) 0.05 x10 3/uL 0.0-0.2 N NUCLEATED RBC # (test code = NRBC#) 0.00 x10 3/uL 0.0-0.1 N COMMENTS: Daily while on heparin dripBASIC METABOLIC [id number] 05:50:00* Test Item Value Reference Range Interpretation Comme nts SODIUM (test code = NA) 135 mEq/L 134-147 N POTASSIUM (test code = K) 3.9 mEq/L 3.4-5.0 N CHLORIDE (test code = CL) 104 mEq/L 100-108 N CARBON DIOXIDE (test code = CO2) 22 mEq/l 21-33 N ANION GAP (test code = GAP) 13 0-20 N GLUCOSE (test code = GLU) 205 mg/dL 77-141 H BLOOD UREA NITROGEN (test code = BUN) 18 mg/dL 7-25 N GLOMERULAR FILTRATION RATE (test code = GFR) 93.0 80-90 H The Glomerular Filtration Rate is a calculated parameterbased on serum Creatinine, patient age and sex. GFR valuesless than 60 mL/min/1.73 square meters are indicative ofChronic Kidney Disease. Values less than 15 mL/min/1.73square meters indicate Kidney failure. The calculation forGFR is based on the CKD-EPI (2020) calculation. This formulais race indifferent and is the recommended formula for GFRby the National Kidney Foundation for Adults.The GFR will not calculate if the sex is unknown or if thepatient's age is <18 years. CREATININE (test code = CREAT) 0.9 mg/dL 0.6-1.3 N CALCIUM (test code = CA) 8.8 mg/dL 8.0-10.5 N THROMBOPLASTIN TIME [id number] 03:42:00* Test Item Value Reference Range Interpretation Comme nts THROMBOPLASTIN TIME PARTIAL (test code = PTT) 48.0 Seconds 25.0-39.5 H Therapeutic Rang e: 50.4 - 88.3 Seconds Effective 07/12/2018 GLUCOSE [id number] 19:59:00* Test Item Value Reference Range Interpretation Comme nts GLUCOSE BEDSIDE (test code = GLUBED) 113 MG/DL 70-110 H Performed by cer tified waxer operator at [facility] GLUCOSE [id number] 11:32:00* Test Item Value Reference Range Interpretation Comme nts GLUCOSE BEDSIDE (test code = GLUBED) 160 MG/DL 70-110 H Performed by cer tified waxer operator at [facility] GLUCOSE [id number] 08:19:00* Test Item Value Reference Range Interpretation Comme nts GLUCOSE BEDSIDE (test code = GLUBED) 181 MG/DL 70-110 H Performed by [employer] waxer operator at [facility] [id number] 07:44:00* Test Item Value Reference Range Interpretation Comme nts HGBA1C% (test code = HGBA1C%) 8.4 %A1C 4.8-6.0 H BASIC METABOLIC [id number] 07:08:00* Test Item Value Reference Range Interpretation Comme nts SODIUM (test code = NA) 134 mEq/L 134-147 N POTASSIUM (test code = K) 3.5 mEq/L 3.4-5.0 N CHLORIDE (test code = CL) 102 mEq/L 100-108 N CARBON DIOXIDE (test code = CO2) 23 mEq/l 21-33 N ANION GAP (test code = GAP) 12 0-20 N GLUCOSE (test code = GLU) 168 mg/dL 77-141 H BLOOD UREA NITROGEN (test code = BUN) 21 mg/dL 7-25 N GLOMERULAR FILTRATION RATE (test code = GFR) 82.0 80-90 N The Glomerular Filtration Rate is a calculated parameterbased on serum Creatinine, patient age and sex. GFR valuesless than 60 mL/min/1.73 square meters are indicative ofChronic Kidney Disease. Values less than 15 mL/min/1.73square meters indicate Kidney failure. The calculation forGFR is based on the CKD-EPI (2020) calculation. This formulais race indifferent and is the recommended formula for GFRby the National Kidney Foundation for Adults.The GFR will not calculate if the sex is unknown or if thepatient's age is <18 years. CREATININE (test code = CREAT) 1.0 mg/dL 0.6-1.3 N CALCIUM (test code = CA) 9.0 mg/dL 8.0-10.5 N COMMENTS: To be done morning of Heart CathTROP-I HIGH [id number] 07:08:00* Test Item Value Reference Range Interpretation Comme nts TROP-I HIGH SENSITIVITY (test code = TROPIHS) 1024 ng/L 0-54 HH CAUTION: Units o f the current test methodology (ng/L) differfrom the prior test methodology (ng/mL) by a factor of 1000. 99th Percentile Upper Reference Limit (URL): Females: 34 ng/LMales: 54 ng/L In order to distinguish acute elevations of high sensitivitytroponin from other clinical conditions, the FourthUniversal Definition of Myocardial Infarction stressesclinical assessment and the demonstration of a rise and/orfall in serial troponin results above the URL. These results were obtained using [employer] IM TnIHreagent. Results from different methodologies should not becompared to one another as quantitative results and URLs mayvary by method. COMMENTS: To be done morning of Heart CathTHROMBOPLASTIN TIME [id number] 06:57:00* Test Item Value Reference Range Interpretation Comme nts THROMBOPLASTIN TIME PARTIAL (test code = PTT) 61.5 Seconds 25.0-39.5 H Therapeutic Rang e: 50.4 - 88.3 Seconds Effective 07/12/2018 CBC W/AUTO [id number] 06:50:00* Test Item Value Reference Range Interpretation Comme nts WHITE BLOOD CELL (test code = WBC) 8.4 x10 3/uL 4.5-11.0 N RED BLOOD CELL (test code = RBC) 4.28 x10 6/uL 4.00-5.60 N HEMOGLOBIN (test code = HGB) 12.9 g/dL 12.5-16.9 N HEMATOCRIT (test code = HCT) 39.1 % 37.5-50.7 N MEAN CELL VOLUME (test code = MCV) 91.4 fL 81.0-99.0 N MEAN CELL HGB (test code = MCH) 30.1 pg 27.0-33.0 N MEAN CELL HGB CONCETRATION (test code = MCHC) 33.0 g/dL 33.0-37.0 N RED CELL DISTRIBUTION WIDTH CV (test code = RDW) 13.6 % 11.5-14.5 N RED CELL DISTRIBUTION WIDTH SD (test code = RDW-SD) 46.1 fL 37.0-54.0 N PLATELET COUNT (test code = PLT) 153 x10 3/uL 150-400 N MEAN PLATELET VOLUME (test c ode = MPV) 11.7 fL 7.0-9.0 H NEUTROPHIL % (test code = NT%) 76.7 % 56.0-77.0 N IMMATURE GRANULOCYTE % (test code = IG%) 0.4 % 0.0-2.0 N LYMPHOCYTE % (test code = LY%) 9.4 % 14.0-32.0 L MONOCYTE % (test code = MO%) 10.9 % 4.8-9.0 H EOSINOPHIL % (test code = EO%) 1.9 % 0.3-3.7 N BASOPHIL % (test code = BA%) 0.7 % 0.0-2.0 N NUCLEATED RBC % (test code = NRBC%) 0.0 % 0-0 N NEUTROPHIL # (test code = NT#) 6.47 x10 3/uL 2.0-7.6 N IMMATURE GRANULOCYTE # (test code = IG#) 0.03 x10 3/uL 0.00-0.03 N LYMPHOCYTE # (test code = LY#) 0.79 x10 3/uL 1.0-3.8 L MONOCYTE # (test code = MO#) 0.92 x10 3/uL 0.1-0.8 H EOSINOPHIL # (test code = EO#) 0.16 x10 3/uL 0.0-0.2 N BASOPHIL # (test code = BA#) 0.06 x10 3/uL 0.0-0.2 N NUCLEATED RBC # (test code = NRBC#) 0.00 x10 3/uL 0.0-0.1 N COMMENTS: To be done morning of Heart CathDRUGS OF ABUSE SCREEN [id number] 01:12:00* Test Item Value Reference Range Interpretation Comme nts URN COCAINE (test code = COCAURN) NEGATIVE NEGATIVE URN CANNABINOIDS (test code = CANNABURN) NEGATIVE NEGATIVE URN AMPHETAMINE (test code = AMPHETURN) NEGATIVE NEGATIVE URN BARBITURATE (test code = BARBITURN) NEGATIVE NEGATIVE URN BENZODIAZEPINE (test code = BENZOURN) NEGATIVE NEGATIVE Cut-off v alue:200 ng/mL URN OPIATES (test code = OPIATURN) NEGATIVE NEGATIVE Cut-off value:20 00 ng/mL URN PHENCYCLIDINE (PCP) (test code = PHENCURN) NEGATIVE NEGATIVE Cutoffs:B arbiturates 200 ng/mLBenzodiazepines 200 ng/mLTHC Cannabinoids 50 ng/mLOpiates(Morphine) 2000 ng/mLAmphetamine 1000 ng/mLCocaine 300 ng/mLPCP phencyclidine 25 ng/mL Unconfirmed screening results shouldnot be used for non-medical purposes. THROMBOPLASTIN TIME [id number] 00:21:00* Test Item Value Reference Range Interpretation Comme nts THROMBOPLASTIN TIME PARTIAL (test code = PTT) 51.6 Seconds 25.0-39.5 H Therapeutic Rang e: 50.4 - 88.3 Seconds Effective 07/12/2018 TROP-I HIGH [id number] 22:28:00* Test Item Value Reference Range Interpretation Comme nts TROP-I HIGH SENSITIVITY (test code = TROPIHS) 1576 ng/L 0-54 HH CAUTION: Units o f the current test methodology (ng/L) differfrom the prior test methodology (ng/mL) by a factor of 1000. 99th Percentile Upper Reference Limit (URL): Females: 34 ng/LMales: 54 ng/L In order to distinguish acute elevations of high sensitivitytroponin from other clinical conditions, the FourthUniversal Definition of Myocardial Infarction stressesclinical assessment and the demonstration of a rise and/orfall in serial troponin results above the URL. These results were obtained using [employer] IM TnIHreagent. Results from different methodologies should not becompared to one another as quantitative results and URLs mayvary by method. GLUCOSE [id number] 22:13:00* Test Item Value Reference Range Interpretation Comme [facility] GLUCOSE BEDSIDE (test code = GLUBED) 164 MG/DL 70-110 H Performed by linda carter waxer operator at [facility] TROP-I HIGH [id number] 16:26:00* Test Item Value Reference Range Interpretation Comme [facility] TROP-I HIGH SENSITIVITY (test code = TROPIHS) 1249 ng/L 0-54 HH CAUTION: Units o f the current test methodology (ng/L) differfrom the prior test methodology (ng/mL) by a factor of 1000. 99th Percentile Upper Reference Limit (URL): Females: 34 ng/LMales: 54 ng/L In order to distinguish acute elevations of high sensitivitytroponin from other clinical conditions, the FourthUniversal Definition of Myocardial Infarction stressesclinical assessment and the demonstration of a rise and/orfall in serial troponin results above the URL. These results were obtained using [employer] IM TnIHreagent. Results from different methodologies should not becompared to one another as quantitative results and URLs mayvary by method. PROTHROMBIN [id number] 16:22:00* Test Item Value Reference Range Interpretation Comme [facility] PROTHROMBIN TIME PATIENT (test code = PTP) 12.8 SECONDS 9.3-12.9 N INTERNATIONAL NORMAL RATIO (test code = INR) 1.2 0.8-1.2 N TARGET INR BY INDICATION Indication INR1. Prophylaxis of venous thrombosis 2.0 - 3.0 (orthopedic surgery), Prophylaxis of venous thrombosis (other than high-risk surgery), Treatment of Deep Vein Thrombosis/Pulmonary Embolism, Prevention of systemic embolism - Tissue heart valves, Acute Myocardial Infarction (to prevent systemic embolism), Valvular heart disease, Atrial Fibrillation, Bileaflet mechanical valve in aortic position.2. Mechanical prosthetic valves (high risk), 2.5 - 3.5 Presence of Lupus Anticoagulant or Antiphospholipid Antibodies, Prevention of systemic embolism - Acute Myocardial Infarction (to prevent recurrent infarct). COMMENTS: STAT if not done within 24 hours prior to initiation of heparinComment: infusionTHROMBOPLASTIN TIME [id number] 16:22:00* Test Item Value Reference Range Interpretation Comme nts THROMBOPLASTIN TIME PARTIAL (test code = PTT) 35.8 Seconds 25.0-39.5 N Therapeutic Rang e: 50.4 - 88.3 Seconds Effective 07/12/2018 COMMENTS: STAT if not done within 24 hours prior to initiation of heparinComment: infusionCBC W/AUTO [id number] 16:09:00* Test Item Value Reference Range Interpretation Comme nts WHITE BLOOD CELL (test code = WBC) 12.2 x10 3/uL 4.5-11.0 H RED BLOOD CELL (test code = RBC) 4.43 x10 6/uL 4.00-5.60 N HEMOGLOBIN (test code = HGB) 13.5 g/dL 12.5-16.9 N HEMATOCRIT (test code = HCT) 40.4 % 37.5-50.7 N MEAN CELL VOLUME (test code = MCV) 91.2 fL 81.0-99.0 N MEAN CELL HGB (test code = MCH) 30.5 pg 27.0-33.0 N MEAN CELL HGB CONCETRATION (test code = MCHC) 33.4 g/dL 33.0-37.0 N RED CELL DISTRIBUTION WIDTH CV (test code = RDW) 13.6 % 11.5-14.5 N RED CELL DISTRIBUTION WIDTH SD (test code = RDW-SD) 45.6 fL 37.0-54.0 N PLATELET COUNT (test code = PLT) 162 x10 3/uL 150-400 N MEAN PLATELET VOLUME (test c ode = MPV) 12.0 fL 7.0-9.0 H NEUTROPHIL % (test code = NT%) 81.9 % 56.0-77.0 H IMMATURE GRANULOCYTE % (test code = IG%) 0.7 % 0.0-2.0 N LYMPHOCYTE % (test code = LY%) 7.1 % 14.0-32.0 L MONOCYTE % (test code = MO%) 9.3 % 4.8-9.0 H EOSINOPHIL % (test code = EO%) 0.5 % 0.3-3.7 N BASOPHIL % (test code = BA%) 0.5 % 0.0-2.0 N NUCLEATED RBC % (test code = NRBC%) 0.0 % 0-0 N NEUTROPHIL # (test code = NT#) 9.98 x10 3/uL 2.0-7.6 H IMMATURE GRANULOCYTE # (test code = IG#) 0.09 x10 3/uL 0.00-0.03 H LYMPHOCYTE # (test code = LY#) 0.86 x10 3/uL 1.0-3.8 L MONOCYTE # (test code = MO#) 1.13 x10 3/uL 0.1-0.8 H EOSINOPHIL # (test code = EO#) 0.06 x10 3/uL 0.0-0.2 N BASOPHIL # (test code = BA#) 0.06 x10 3/uL 0.0-0.2 N NUCLEATED RBC # (test code = NRBC#) 0.00 x10 3/uL 0.0-0.1 N COMMENTS: STAT if not done within 24 hours prior to initiation of heparin Comment: infusionTHYROID STIMULATING [id number] 13:07:00* Test Item Value Reference Range Interpretation Comme nts THYROID STIMULATING HORMONE (test code = TSH) 2.06 0.42-5.47 N Result s in alberto-International Units/mL LIPID PROFILE (CORONARY RISK)2023-05-31 13:07:00* Test Item Value Reference Range Interpretation Comme nts TRIGLYCERIDES (test code = TRIG) 89 mg/dL 40-150 N CHOLESTEROL (test code = CHOL) 147 mg/dL <200 CHOLESTEROL/HDL RATIO (test code = CHOLHDL) 2.77 RATIO 3.43-4.97 L RISK ASSOCIATED WITH CHOL/HDL RATIOS: RISK MALE FEMALE1/2 AVERAGE 3.43 3.27AVERAGE 4.97 4.442X AVERAGE 9.55 7.053X AVERAGE 23.39 11.04 NOTE THAT THE REFERENCE VALUE IS RELATEDTO RISK LEVELS RECOMMENDED BY THE NATL.HEART, LUNG, AND BLOOD INST. HDL CHOLESTEROL (test code = HDL) 53.1 MG/DL 40-60 N HDL Interpreta tion < 40.0 mg/dL Low (undesirable, high risk)> 60.0 mg/dL High (desirable, low risk) Reference interval for healthy adults was established by theNational Cholesterol Education Program (NCEP). LIPOPROTEIN LDL (test code = LDL) 81.0 mg/dL 0-100 N <100 [id number] 0-129 NEAR OPTIMAL/ABOVE [id number] HIGH>KX=524 VERY HIGH*Guidelines provided by the National Cholesterol EducationProgram Adult Treatment Panel III LIPOPROTEIN [id number] 12:42:00* Test Item Value Reference Range Interpretation Comme nts LIPOPROTEIN LDL (test code = LDL) 81.0 mg/dL 0-100 N <100 [id number] 0-129 NEAR OPTIMAL/ABOVE [id number] HIGH>AX=964 VERY HIGH*Guidelines provided by the National Cholesterol EducationProgram Adult Treatment Panel III B-TYPE NATRIURETIC [id number] 12:18:00* Test Item Value Reference Range Interpretation Comme nts B-TYPE NATRIURETIC PEPTIDE ( test code = BNP) 771.0 PG/ML 0-100 H - XR CHEST 1 [id number] 12:17:00 [facility] : 1955 Sex: M FAX: Mendel Walker MD [phone] [place]: St: ADM Name: MINDY CARTER [facility] : 1955 Age/S: 67/M [address] [place] [address] Blvd Unit #: [id number] Loc: [place] [address] Phys: Mendel Walker MD Acct: [id number] Dis Date: Status: ADM IN PHONE #: [phone] Exam Date: 05/31/2023 1145 FAX #: [phone] Reason: SOB EXAMS: CPT CODE: [id number] XR CHEST 1 V 11440 EXAM: CHEST ONE VIEW INDICATION: Shortness of breath LOCATION: B2 COMPARISON: None available TECHNIQUE: AP view of the chest FINDINGS: The heart size is enlarged. There are diffuse congestive changes bilaterally. No pneumothorax or pleural effusion is identified. The osseous structures are normal. IMPRESSION: Cardiomegaly with diffuse congestive changes bilaterally. at 1217 Reported and signed by: Gabrielle Jean M.D. CC: Mendel Walker MD Technologist: RT Arnulfo(R) Trnscrd Date/Time/By: 05/31/2023 (1217) : By: 16 Orig Print D/T: S: 05/31/2023 (0155) PAGE 1 Signed ReportBASIC METABOLIC [id number] 12:14:00* Test Item Value Reference Range Interpretation Comme nts SODIUM (test code = NA) 136 mEq/L 134-147 N POTASSIUM (test code = K) 3.6 mEq/L 3.4-5.0 N CHLORIDE (test code = CL) 104 mEq/L 100-108 N CARBON DIOXIDE (test code = CO2) 25 mEq/l 21-33 N ANION GAP (test code = GAP) 10 0-20 N GLUCOSE (test code = GLU) 243 mg/dL 77-141 H BLOOD UREA NITROGEN (test code = BUN) 28 mg/dL 7-25 H GLOMERULAR FILTRATION RATE (test code = GFR) 65.9 80-90 L The Glomerular Filtration Rate is a calculated parameterbased on serum Creatinine, patient age and sex. GFR valuesless than 60 mL/min/1.73 square meters are indicative ofChronic Kidney Disease. Values less than 15 mL/min/1.73square meters indicate Kidney failure. The calculation forGFR is based on the CKD-EPI (2020) calculation. This formulais race indifferent and is the recommended formula for GFRby the National Kidney Foundation for Adults.The GFR will not calculate if the sex is unknown or if thepatient's age is <18 years. CREATININE (test code = CREAT) 1.2 mg/dL 0.6-1.3 N CALCIUM (test code = CA) 8.7 mg/dL 8.0-10.5 N [id number] 12:14:00* Test Item Value Reference Range Interpretation Comme nts MAGNESIUM (test code = MAG) 1.89 mg/dL 1.6-2.6 N TROP-I HIGH [id number] 12:14:00* Test Item Value Reference Range Interpretation Comme nts TROP-I HIGH SENSITIVITY (test code = TROPIHS) 1181 ng/L 0-54 HH Critical result called to AMY Riley [id number] at 1212 05/31/23Nurse read back result and tech confirmed it's correct? YESCAUTION: Units of the current test methodology (ng/L) differfrom the prior test methodology (ng/mL) by a factor of 1000. 99th Percentile Upper Reference Limit (URL): Females: 34 ng/LMales: 54 ng/L In order to distinguish acute elevations of high sensitivitytroponin from other clinical conditions, the FourthUniversal Definition of Myocardial Infarction stressesclinical assessment and the demonstration of a rise and/orfall in serial troponin results above the URL. These results were obtained using [employer] IM TnIHreagent. Results from different methodologies should not becompared to one another as quantitative results and URLs mayvary by method. CBC W/AUTO [id number] 11:55:00* Test Item Value Reference Range Interpretation Comme nts WHITE BLOOD CELL (test code = WBC) 12.4 x10 3/uL 4.5-11.0 H RED BLOOD CELL (test code = RBC) 4.37 x10 6/uL 4.00-5.60 N HEMOGLOBIN (test code = HGB) 13.0 g/dL 12.5-16.9 N HEMATOCRIT (test code = HCT) 39.8 % 37.5-50.7 N MEAN CELL VOLUME (test code = MCV) 91.1 fL 81.0-99.0 N MEAN CELL HGB (test code = MCH) 29.7 pg 27.0-33.0 N MEAN CELL HGB CONCETRATION (test code = MCHC) 32.7 g/dL 33.0-37.0 L RED CELL DISTRIBUTION WIDTH CV (test code = RDW) 13.4 % 11.5-14.5 N RED CELL DISTRIBUTION WIDTH SD (test code = RDW-SD) 45.4 fL 37.0-54.0 N PLATELET COUNT (test code = PLT) 153 x10 3/uL 150-400 N MEAN PLATELET VOLUME (test code = MPV) 12.0 fL 7.0-9.0 H NEUTROPHIL % (test code = NT%) 82.6 % 56.0-77.0 H IMMATURE GRANULOCYTE % (test code = IG%) 1.0 % 0.0-2.0 N LYMPHOCYTE % (test code = LY%) 6.1 % 14.0-32.0 L MONOCYTE % (test code = MO%) 9.6 % 4.8-9.0 H EOSINOPHIL % (test code = EO%) 0.2 % 0.3-3.7 L BASOPHIL % (test code = BA%) 0.5 % 0.0-2.0 N NUCLEATED RBC % (test code = NRBC%) 0.0 % 0-0 N NEUTROPHIL # (test code = NT#) 10.20 x10 3/uL 2.0-7.6 H IMMATURE GRANULOCYTE # (test code = IG#) 0.12 x10 3/uL 0.00-0.03 H LYMPHOCYTE # (test code = LY#) 0.76 x10 3/uL 1.0-3.8 L MONOCYTE # (test code = MO#) 1.19 x10 3/uL 0.1-0.8 H EOSINOPHIL # (test code = EO#) 0.03 x10 3/uL 0.0-0.2 N BASOPHIL # (test code = BA#) 0.06 x10 3/uL 0.0-0.2 N NUCLEATED RBC # (test code = NRBC#) 0.00 x10 3/uL 0.0-0.1 N POC ARTERIAL BLOOD [id number] 11:43:00* Test Item Value Reference Range Interpretation Comme nts POC ARTERIAL BLOOD GAS PH (t est code = POCPHA) 7.519 7.35-7.45 HH POC ARTERIAL BLOOD GAS PCO2 (test code = MJMTPG9E) 33.4 mmHg 35.0-45 L POC TCO2 ARTERIAL (test code = POCTCO2) 28.2 POC ARTERIAL BLOOD GAS PO2 ( test code = PIYLR1N) 56.3 mmHg 80-100.0 L POC HCO3 ARTERIAL (test code = ZNIDLZ4R) 27.2 MMOL/L 22.0-26.0 H POC BASE EXCESS (test code = POCBEA) 4.3 MMOL/L -4.0-4.0 H POC O2 SATURATION (test code = POCO2S) 92.0 % 90-100 N ABG DELIVERY (test code = DELVIN) 4L ABG SITE (test code = SITEA) L Radial MABEL'S TEST (test code = ALLENS) Positive HEPATITIS [id number] 11:49:00* Test Item Value Reference Range Interpretation Comme nts HEPATITIS A AB, TOTAL (test code = 26806579) REACTIVE NON-REACTIVE A HEPATITIS B SURFACE ANTIBODY QL (test code = 50928767) NON-REACTIVE NON-REACTIVE N HEPATITIS B SURFACE ANTIGEN (test code = 36290026) NON-REACTIVE NON-REACTIVE N HEPATITIS B CORE AB TOTAL (test code = 51102507) NON-REACTIVE NON-REACTIVE N HEPATITIS C ANTIBODY (test code = 88702807) REACTIVE NON-REACTIVE A Based on this re sult, the sample will be testedfor HCV RNA by a Nucleic Acid Amplification Test (NAAT)to determine if the patient has a current activeinfection. For additional information, please refer to http://education.FriendFit/faq/FA Q202 (This link is being provided for informational/educatio nal purposes only.) For additional information, please refer to http://JolieBox.CE Interactive.Connexient/faq/FA Q202 (This link is being provided for informational/educatio nal purposes only.) For additional information, please refer to http://JolieBox.FriendFit/faq/FA Q202 (This link is being provided for informational/educatio nal purposes only.) FASTING:YESK[facility] CENTERLIPID [id number] 11:49:00* Test Item Value Reference Range Interpretation Comme nts CHOLESTEROL, TOTAL (test code = 02329515) 167 mg/dL <200 N HDL CHOLESTEROL (test code = 03437828) 49 mg/dL >=40 N TRIGLYCERIDES (test code = 81745103) 161 mg/dL <150 H LDL-CHOLESTEROL (test code = 67964650) 92 mg/dL (calc) N Reference range: <100 Desirable range <100 mg/dL for primary prevention; <70 mg/dL for patients with CHD or diabetic patients with > or = 2 CHD risk factors. LDL-C is now calculated using the Otis-Tolentino calculation, which is a validated novel method providing better accuracy than the Friedewald equation in the estimation of LDL-C. Otis PEREZ et al. HARDY. 2013;310(19): 6080-7722 (http://education.TransitScreen.com /faq/YDH579) CHOL/HDLC RATIO (test code = 30573282) 3.4 (calc) <5.0 N NON HDL CHOLESTEROL (test code = 56960091) 118 mg/dL (calc) <130 N For patients with diabetes plus 1 major ASCVD risk factor, treating to a non-HDL-C goal of <100 mg/dL (LDL-C of <70 mg/dL) is considered a therapeutic option. FASTING:[facility] CENTERCOMP META [id number] 11:49:00* Test Item Value Reference Range Interpretation Comme nts GLUCOSE (test code = 40622462) 167 mg/dL 65-99 H Fasting referenc e interval For someone without known diabetes, a glucosevalue >125 mg/dL indicates that they may havediabetes and this should be confirmed with afollow-up test. UREA NITROGEN (BUN) (test code = 47622035) 33 mg/dL 7-25 H CREATININE (test code = 58672235) 1.14 mg/dL 0.70-1.35 N EGFR (test code = 20794163) 70 mL/min/1.73m2 >=60 N BUN/CREATININE RATIO (test code = 62557007) 29 (calc) 6-22 H SODIUM (test code = 30363709) 140 mmol/L 135-146 N POTASSIUM (test code = 03584855) 4.5 mmol/L 3.5-5.3 N CHLORIDE (test code = 53058834) 101 mmol/L 98-110 N CARBON DIOXIDE (test code = 52075340) 30 mmol/L 20-32 N CALCIUM (test code = 92217054) 9.4 mg/dL 8.6-10.3 N PROTEIN, TOTAL (test code = 07231969) 7.6 g/dL 6.1-8.1 N ALBUMIN (test code = 27974999) 4.4 g/dL 3.6-5.1 N GLOBULIN (test code = 65170056) 3.2 g/dL (calc) 1.9-3.7 N ALBUMIN/GLOBULIN RATIO (test code = 91300079) 1.4 (calc) 1.0-2.5 N BILIRUBIN, TOTAL (test code = 20331391) 0.6 mg/dL 0.2-1.2 N ALKALINE PHOSPHATASE (test code = 06419998) 123 U/L 35-144 N AST (test code = 87761922) 23 U/L 10-35 N ALT (test code = 73149339) 23 U/L 9-46 N FASTING:[facility]ENTERHEMOGLOBIN [id number] 11:49:00* Test Item Value Reference Range Interpretation Comme nts HEMOGLOBIN A1c (test code = 55281068) TNP/1665 N TEST NOT PERFOR MED Unable to perform the requested add-on test(s). The sample is no longer available. FASTING:[facility] CENTERCBC (DIFF/PLT)2023-05-12 11:49:00* Test Item Value Reference Range Interpretation Comme nts WHITE BLOOD CELL COUNT (test code = 34823964) 7.9 Thousand/uL 3.8-10.8 N RED BLOOD CELL COUNT (test code = 71437559) 5.28 Million/uL 4.20-5.80 N HEMOGLOBIN (test code = 71480692) 15.5 g/dL 13.2-17.1 N HEMATOCRIT (test code = 37220106) 48.4 % 38.5-50.0 N MCV (test code = 21843847) 91.7 fL 80.0-100.0 N MCH (test code = 76685980) 29.4 pg 27.0-33.0 N MCHC (test code = 32574653) 32.0 g/dL 32.0-36.0 N RDW (test code = 99921901) 13.1 % 11.0-15.0 N PLATELET COUNT (test code = 59359246) 156 Thousand/uL 140-400 N MPV (test code = 56226484) 12.4 fL 7.5-12.5 N ABSOLUTE NEUTROPHILS (test code = 82597182) 6241 cells/uL 8095-5931 N ABSOLUTE LYMPHOCYTES (test code = 01624265) 656 cells/uL 850-3900 L ABSOLUTE MONOCYTES (test cod e = 06144684) 766 cells/uL 200-950 N ABSOLUTE EOSINOPHILS (test code = 12693213) 174 cells/uL 15-500 N ABSOLUTE BASOPHILS (test cod e = 03899209) 63 cells/uL 0-200 N NEUTROPHILS (test code = 78846331) 79 % N LYMPHOCYTES (test code = 58337786) 8.3 % N MONOCYTES (test code = 55896123) 9.7 % N EOSINOPHILS (test code = 51418097) 2.2 % N BASOPHILS (test code = 47082388) 0.8 % N FASTING:[facility]S HOSPITALHCV RNA, QN [id number] 11:49:00* Test Item Value Reference Range Interpretation Comme nts HCV RNA, QUANTITATIVE REAL TIME PCR (test code = 45994442) <15 NOT DETECTED IU/mL NOT DETECTED N HCV RNA, QUANTITATIVE REAL TIME PCR (test code = 13143604) <1.18 NOT DETECTED Log IU/mL NOT DETECTED N This test was performed using Real-Time Polymerase ChainReaction. Reportable Range: 15 IU/mL to 100,000,000 IU/mL(1.18 Log IU/mL to 8.00 Log IU/mL). The analytical performance characteristics of thisassay have been determined by [employer]. The modifications have not been cleared or approved bythe FDA. This assay has been validated pursuant to the CLIA regulations and is used for clinical purposes. For more information on this test, go to:http://education.MONTAJ/f aq/ZYO62l3(This link is being provided for informational/educati onal purposes only.) FASTING:[facility] CENTERLipid 1995 panel - Serum or Plasma 2023-05-12 00:00:00* Test Item Value Reference Range Interpretation Comme nts Cholesterol [Mass/volume] in Serum or Plasma (test code = 2093-3) 167 mg/dL <200 Cholesterol in HDL [Mass/volume] in Serum or Plasma (test code = 2085-9) 49 mg/dL See_Comment [Automated [employer] Project] The system which generated this result transmitted reference range: > or = 40. The reference range was not used to interpret this result as normal/abnormal. Triglyceride [Mass/volume] in Serum or Plasma (test code = 2571-8) 161 mg/dL <150 H Cholesterol in LDL [Mass/volume] in Serum or Plasma by calculation (test code = 58169-1) 92 mg/dL (calc) Cholesterol.total/Cho lesterol in HDL [Mass Ratio] in Serum or Plasma (test code = 9830-1) 3.4 (calc) <5.0 Cholesterol non HDL [Mass/volume] in Serum or Plasma (test code = 69763-4) 118 mg/dL (calc) <130 [facility] - [id number] 00:00:00 * Test Item Value Reference Range Interpretation Comme nts Hepatitis A virus Ab [Presen ce] in Serum by Immunoassay (test code = 39815-2) reactive non-reactive A Hepatitis B virus surface Ab [Presence] in Serum by Immunoassay (test code = 99594-6) non-reactive non-reactive Hepatitis B virus surface Ag [Presence] in Serum or Plasma by Immunoassay (test code = 5196-1) non-reactive non-reactive Hepatitis B virus core Ab [Presence] in Serum or Plasma by Immunoassay (test code = 08940-7) non-reactive non-reactive Hepatitis C virus Ab [Presen ce] in Serum or Plasma by Immunoassay (test code = 15293-4) reactive non-reactive A [facility]Com[facility] 2000 panel - Serum or [id number] 00:00:00* Test Item Value Reference Range Interpretation Comme nts Glucose [Mass/volume] in Serum or Plasma (test code = 2345-7) 167 mg/dL 65-99 H Urea nitrogen [Mass/volume] in Serum or Plasma (test code = 3094-0) 33 mg/dL 7-25 H Creatinine [Mass/volume] in Serum or Plasma (test code = 2160-0) 1.14 mg/dL 0.70-1.35 Glomerular filtration rate/1.73 sq M.predicted [Volume Rate/Area] in Serum, Plasma or Blood by Creatinine-based formula (CKD-EPI 2020) (test code = 94919-6) 70 mL/min/1.73m 2 See_Comment [Automated message] The system which generated this result transmitted reference range: > or = 60. The reference range was not used to interpret this result as normal/abnormal. Urea nitrogen/Creatinine [Mass Ratio] in Serum or Plasma (test code = 3097-3) 29 (calc) 6-22 H Sodium [Moles/volume] in Serum or Plasma (test code = 2951-2) 140 mmol/L 135-146 Potassium [Moles/volume] in Serum or Plasma (test code = 2823-3) 4.5 mmol/L 3.5-5.3 Chloride [Moles/volume] in Serum or Plasma (test code = 5-0) 101 mmol/L 98-110 Carbon dioxide, total [Moles/volume] in Serum or Plasma (test code = 2027-9) 30 mmol/L 20-32 Calcium [Mass/volume] in Serum or Plasma (test code = 75930-6) 9.4 mg/dL 8.6-10.3 Protein [Mass/volume] in Serum or Plasma (test code = 2885-2) 7.6 g/dL 6.1-8.1 Albumin [Mass/volume] in Serum or Plasma (test code = 1751-7) 4.4 g/dL 3.6-5.1 Globulin [Mass/volume] in Serum by calculation (test code = 22670-8) 3.2 g/dL (calc) 1.9-3.7 Albumin/Globulin [Mass Ratio] in Serum or Plasma (test code = 1759-0) 1.4 (calc) 1.0-2.5 Bilirubin.total [Mass/volume] in Serum or Plasma (test code = 1975-2) 0.6 mg/dL 0.2-1.2 Alkaline phosphatase [Enzymatic activity/volume] in Serum or Plasma (test code = 6768-6) 123 U/L 35-144 Aspartate aminotransferase [Enzymatic activity/volume] in Serum or Plasma (test code = 1920-8) 23 U/L 10-35 Alanine aminotransferase [Enzymatic activity/volume] in Serum or Plasma (test code = 1742-6) 23 U/L 9-46 [facility] W Auto Differential panel - [id number] 00:00:00* Test Item Value Reference Range Interpretation Comme nts Leukocytes [#/volume] in Blood by Automated count (test code = 6690-2) 7.9 thousand/uL 3.8-10.8 Erythrocytes [#/volume] in Blood by Automated count (test code = 789-8) 5.28 million/uL 4.20-5.80 Hemoglobin [Mass/volume] in Blood (test code = 718-7) 15.5 g/dL 13.2-17.1 Hematocrit [Volume Fraction] of Blood by Automated count (test code = 4544-3) 48.4 % 38.5-50.0 MCV [Entitic volume] by Automated count (test code = 787-2) 91.7 fL 80.0-100.0 MCH [Entitic mass] by Automated count (test code = 785-6) 29.4 pg 27.0-33.0 MCHC [Mass/volume] by Automated count (test code = 786-4) 32.0 g/dL 32.0-36.0 Erythrocyte distribution width [Ratio] by Automated count (test code = 788-0) 13.1 % 11.0-15.0 Platelets [#/volume] in Bloo d by Automated count (test code = 777-3) 156 thousand/uL 140-400 Platelet mean volume [Entiti c volume] in Blood by Jodie (test code = 776-5) 12.4 fL 7.5-12.5 Neutrophils [#/volume] in Blood by Automated count (test code = 751-8) 6241 cells/uL 0367-9669 Lymphocytes [#/volume] in Blood by Automated count (test code = 731-0) 656 cells/uL 850-3900 L Monocytes [#/volume] in Bloo d by Automated count (test code = 742-7) 766 cells/uL 200-950 Eosinophils [#/volume] in Blood by Automated count (test code = 711-2) 174 cells/uL 15-500 Basophils [#/volume] in Bloo d by Automated count (test code = 704-7) 63 cells/uL 0-200 Neutrophils/100 leukocytes i n Blood by Automated count (test code = 770-8) 79 % Lymphocytes/100 leukocytes i n Blood by Automated count (test code = 736-9) 8.3 % Monocytes/100 leukocytes in Blood by Automated count (test code = 5905-5) 9.7 % Eosinophils/100 leukocytes i n Blood by Automated count (test code = 713-8) 2.2 % Basophils/100 leukocytes in Blood by Automated count (test code = 706-2) 0.8 % [facility] CenterHepatitis C virus RNA [Units/volume] (viral load) in Serum or Plasma by NHAN with probe [id number] 00:00:00* Test Item Value Reference Range Interpretation Comme nts Hepatitis C virus RNA [Units/volume] (viral load) in Serum or Plasma by NHAN with probe detection (test code = 75369-6) <15 not detected not detected Hepatitis C virus RNA [log units/volume] (viral load) in Serum or Plasma by NHAN with probe detection (test code = 99117-7) <1.18 not detected not detected [facility] CenterHemoglobin A1c/Hemoglobin.total in Blood 2023-05-12 00:00:00* Test Item Value Reference Range Interpretation Comme nts Hemoglobin A1c/Hemoglobin.to marques in Blood (test code = 4548-4) tnTexas [facility] KaufmanLipid 1996 panel - Serum or [id number] 00:00:00* Test Item Value Reference Range Interpretation Comme nts Cholesterol [Mass/volume] in Serum or Plasma (test code = 2093-3) 177 mg/dL <200 Cholesterol in HDL [Mass/volume] in Serum or Plasma (test code = 2085-9) 43 mg/dL See_Comment [Automated [employer]io] The system which generated this result transmitted reference range: > or = 40. The reference range was not used to interpret this result as normal/abnormal. Triglyceride [Mass/volume] in Serum or Plasma (test code = 2571-8) 205 mg/dL <150 H Cholesterol in LDL [Mass/volume] in Serum or Plasma by calculation (test code = 47545-2) 102 mg/dL (calc) H Cholesterol.total/Cho lesterol.in HDL [Mass ratio] in Serum or Plasma (test code = 9830-1) 4.1 (calc) <5.0 Cholesterol non HDL [Mass/volume] in Serum or Plasma (test code = 51119-9) 134 mg/dL (calc) <130 H [facility] CenterMicroalbumin/Creatinine [Mass Ratio] in Urine 2023-01-30 00:00:00* Test Item Value Reference Range Interpretation Comme nts Creatinine [Mass/volume] in Urine (test code = 2161-8) 98 mg/dL 20-320 Microalbumin [Mass/volume] i n Urine (test code = 56993-9) 9.4 mg/dL see note: Albumin/Creatinine [Mass ratio] in Urine (test code = 9318-7) 96 mcg/mg creat <30 H [facility] CenterComprehensive metabolic 2000 panel - Serum or [id number] 00:00:00* Test Item Value Reference Range Interpretation Comme nts Glucose [Mass/volume] in Serum or Plasma (test code = 2345-7) 107 mg/dL 65-99 H Urea nitrogen [Mass/volume] in Serum or Plasma (test code = 3094-0) 42 mg/dL 7-25 H Creatinine [Mass/volume] in Serum or Plasma (test code = 2160-0) 1.38 mg/dL 0.70-1.35 H Glomerular filtration rate/1.73 sq M.predicted [Volume Rate/Area] in Serum, Plasma or Blood by Creatinine-based formula (CKD-EPI 2020) (test code = 89899-4) 56 mL/min/1.73m 2 See_Comment L [Automated message] The system which generated this result transmitted reference range: > or = 60. The reference range was not used to interpret this result as normal/abnormal. Urea nitrogen/Creatinine [Mass Ratio] in Serum or Plasma (test code = 3097-3) 30 (calc) 6-22 H Sodium [Moles/volume] in Serum or Plasma (test code = 2951-2) 141 mmol/L 135-146 Potassium [Moles/volume] in Serum or Plasma (test code = 2823-3) 4.2 mmol/L 3.5-5.3 Chloride [Moles/volume] in Serum or Plasma (test code = 2074-0) 102 mmol/L 98-110 Carbon dioxide, total [Moles/volume] in Serum or Plasma (test code = 2027-) 30 mmol/L 20-32 Calcium [Mass/volume] in Serum or Plasma (test code = 68417-9) 9.8 mg/dL 8.6-10.3 Protein [Mass/volume] in Serum or Plasma (test code = 2885-2) 7.7 g/dL 6.1-8.1 Albumin [Mass/volume] in Serum or Plasma (test code = 1751-7) 4.6 g/dL 3.6-5.1 Globulin [Mass/volume] in Serum by calculation (test code = 82199-6) 3.1 g/dL (calc) 1.9-3.7 Albumin/Globulin [Mass Ratio] in Serum or Plasma (test code = 1759-0) 1.5 (calc) 1.0-2.5 Bilirubin.total [Mass/volume] in Serum or Plasma (test code = 1974-) 0.6 mg/dL 0.2-1.2 Alkaline phosphatase [Enzymatic activity/volume] in Serum or Plasma (test code = 6768-6) 84 U/L 35-144 Aspartate aminotransferase [Enzymatic activity/volume] in Serum or Plasma (test code = 1920-8) 18 U/L 10-35 Alanine aminotransferase [Enzymatic activity/volume] in Serum or Plasma (test code = 174-6) 17 U/L 9-46 [facility] W Auto Differential panel - [id number] 00:00:00* Test Item Value Reference Range Interpretation Comme nts Leukocytes [#/volume] in Blood by Automated count (test code = 6690-2) 12.6 thousand/uL 3.8-10.8 H Erythrocytes [#/volume] in Blood by Automated count (test code = 789-8) 5.32 million/uL 4.20-5.80 Hemoglobin [Mass/volume] in Blood (test code = 718-7) 15.7 g/dL 13.2-17.1 Hematocrit [Volume Fraction] of Blood by Automated count (test code = 4544-3) 47.2 % 38.5-50.0 Erythrocyte mean corpuscular volume [Entitic volume] by Automated count (test code = 787-2) 88.7 fL 80.0-100.0 MCH [Entitic mass] by Automated count (test code = 785-6) 29.5 pg 27.0-33.0 Erythrocyte mean corpuscular hemoglobin concentration [Mass/volume] by Automated count (test code = 786-4) 33.3 g/dL 32.0-36.0 Erythrocyte distribution width [Ratio] by Automated count (test code = 788-0) 13.3 % 11.0-15.0 Platelets [#/volume] in Blood by Automated count (test code = 777-3) 142 thousand/uL 140-400 Platelet mean volume [Entitic volume] in Blood by Jodie (test code = 776-5) 13.1 fL 7.5-12.5 H Neutrophils [#/volume] in Blood by Automated count (test code = 751-8) 16072 cells/uL 2190-6382 H Lymphocytes [#/volume] in Blood by Automated count (test code = 731-0) 1033 cells/uL 850-3900 Monocytes [#/volume] in Blood by Automated count (test code = 742-7) 995 cells/uL 200-950 H Eosinophils [#/volume] in Blood by Automated count (test code = 711-2) 214 cells/uL 15-500 Basophils [#/volume] in Blood by Automated count (test code = 704-7) 76 cells/uL 0-200 Neutrophils/100 leukocytes in Blood by Automated count (test code = 770-8) 81.6 % Lymphocytes/100 leukocytes in Blood by Automated count (test code = 736-9) 8.2 % Monocytes/100 leukocytes in Blood by Automated count (test code = 5905-5) 7.9 % Eosinophils/100 leukocytes in Blood by Automated count (test code = 713-8) 1.7 % Basophils/100 leukocytes in Blood by Automated count (test code = 706-2) 0.6 % [facility] 2023-[facility]-30 00:00:00* Test Item Value Reference Range Interpretation Comme nts Hemoglobin A1c/Hemoglobin.total in Blood (test code = 4548-4) 7.6 % of total HGB <5.7 H [facility] Notes Date/Time Note Provider Source 2023-06-30 21:46:00 [facility] ([facility]) Hospitalist Progress Note REPORT#:[id number] REPORT STATUS: Signed REPORT INITIALIZATION DATE:06/30/23 TIME: 2145 PATIENT: MINDY CARTER UNIT #: [id number] ROOM/BED: [place] [address] : 54 AGE: 67 SEX: M ATTEND: Bladimir Morse DO ADM AUTHOR: Talat Lord MD REPT SERVICE DT/TIME: 06/18/232145 * ALL edits or amendments must be made on the electronic/computer document * Subjective Chief complaint: no new complaints. HPI: This is a 67-year-old male with history of high blood pressure, hyperlipidemia, diabetes mellitus, syncope, neuropathy, alcohol use, liver cirrhosis, stage II CKD presents with shortness of breath that has been increasing since 2 days ago. Patient took extra dose of Aldactone and hydrochlorothiazide which did not help. Patient also reports chest tightness and is currently on 5 L of oxygen per nasal cannula. Patient says that he cannot lie down he gets short of breath when he lies down. He drinks whiskey about 3 shots a day. He has been having increasing edema in bilateral lower extremities. No headaches or dizziness. No other complaints elicited. Objective Physical Exam General appearance: alert, awake Neck: normal thyroid, no JVD Cardiovascular: normal heart sounds, regular rate rhythm, no gallop, no murmur , no rub Respiratory: hypoxia, on oxygen Abdomen: non-tender, normal bowel sounds, soft Extremities: 3+ PRETIBIAL EDEMA Musculoskeletal: normal inspection Neuro/BUSINESS AREA MANAGER: alert, oriented X 3, normal speech, no motor deficits, no sensory deficits Skin: dry, intact, no rash Psychiatry: normal affect Diagnosis, Assessment Plan Consultants: cardiology, cardiovascular surgery Free Text DxA P Notes Free text DxA P notes: VOLUME OL WITH Shortness of breath/hypoxia/3+ LEG EDEMA - CONT LASIX GTT, UF BY HD On 8 L oxygen via nasal cannula Fluid overload on chest x-ray On Lasix drip ICC on board Acute on chronic diastolic congestive heart failure - STABLE, CONT UF - Cardiology consulted - Echo: EF 55 to 60% S/p CABG on 06/10 Milrinone drip DC'd On Lasix drip 06/12 On BiPAP now off BiPAP 06/13 On 8 L oxygen via nasal cannula 06/13 Multivessel CAD, S/P CABG X3, ALAA - STABLE, CTS/ICC SEEN S/p CABG on 06/10 On aspirin, Plavix, amiodarone - no statin for abnormal LFTs/cirrhosis On milrinone drip DC'd Chest tube in place DC'd Cardiology, CT surgery, ICC on board Hypotension - ECHO EF 50-55% BP dropped to 80s over 50s overnight 06/11 On Levophed and vasopressin off pressors ICC, CT surgery on board NIYA ON CRF - CONT DIURESIS, RENAL SEEN Metolazone x 1 given 06/12 On Lasix drip, if urinary output does not improve, may require CRRT 06/12 Nephrology on board Renal function improving Pleural effusion DUE TO VOLUME OL - STABLE On Lasix drip Abnormal LFTs: -cholelithiasis with distended GB, no acute cholecystitis on US - Monitor - GI on board Diabetes mellitus II - STABLE HGBA1c 8.4% Insulin drip, transition to Sliding scale insulin as needed, long acting insulin as per ICC Hypertension Renew medications once they have been updated in the computer Now on pressors for hypotension DEBILITY - REHAB SEEN, MAY NEED IRF Patient does not have a living will or medical power of defense attorney Patient is a full code 06/01 multivessel disease on cath, CTS consulted, patient undergoing preop evaluation for possible CABG. 06/02- pt continues cabg eval, conf Fri, nephro/GI consulted per cts, renal indices wnls today, Abd us confirmed cirrhosis with splenomegaly. 06/03 patient continues preop evaluation for CABG, IV Lasix transition to oral 06/04 CABG preop planning 06/05- CABG planning 06/06 ongoing CABG planning per CTS, blood sugars noted to be elevated in 240s to 300s. Will start on basal insulin 7 units for now daily, continue meal correctional insulin. Patient on glipizide and metformin at home holding for now given CABG eval and and pending surgical date. 06/07- pending CABG eval, d/w Cardiology and started patient on IV lasix 40 mg BID due to increasing wt, symptoms of dyspnea. Monitor I'O's. 06/08- poorly controlled blood sugars noted, increased basal insulin to 10 units daily, add meal time insulin AC, wt based compared to SSI admin, started on 4 Units reg insulin AC. Monitor I/O, contiued on IV lasix 40 mg BID, wt 110 kg today (dry wt reported to be 105 kg). 06/09- optimize insulin for improved glucose control, pending cabg tomorrow 06/10- pending cabg 06/19 - doing well. Ok to d/c home tomorrow if ok with all. Echo read pending. Disposition: S/p CABG on 06/11/2023. Chest tubes removed, on 8 L oxygen via nasal cannula, off pressors, fluid overload on chest x-ray, on Lasix drip, on insulin drip, kidney function improving. Working with PT/OT. Multiple specialty services on board. Continue CVICU care. THIS NOTE IS BACKDATING FOR VISIT ON 06/18/23. at 1388 RPT #:[id number] END OF REPORT [facility] 2023-06-22 23:08:00 [phone] [address] PATIENT NAME: MINDY CARTER ADMIT DATE: 05/31/23 ACCOUNT NO: [id number] [place] [facility] [place]GE: 67 REPORT TYPE: eECHOCARDIOGRAM REPORT SEX: M ADMITTING PHYSICIAN:Talat Lord MD ATTENDING PHYSICIAN:Bladimir Morse DO *[address] [address] Limited Transthoracic Echocardiogram Patient: Mindy Carter Study Date: 06/22/2023 BP: 127 / 69 URN: [id number] Location: : 1955 Age: 67 Gender: M Height: 69 in / 175.3 cm Weight: 249.1 lb / 113 kg BMI/BSA: 36.8 kg/m 2 / 2.39 m 2 *Ordering Physician: * Jeremiah Martel MD *Interpreting Physician: * Clayton Nathan MD *Continuing Education Specialist: * Mily Renee Indications: R/O Pericardial Effusion. Study data: Transthoracic echocardiogram, limited study. Procedure: A transthoracic echocardiogram was performed. Image quality was fair. The study was technically limited due to poor patient compliance and restricted patient mobility. Limited 2D and limited spectral Doppler. Location: Bedside. Patient status: Inpatient. Patient room number: 3359. Study status: Routine. Heart rate: 66 bpm. Findings Left ventricle: The cavity size is normal. Wall thickness is increased. Systolic function is normal. The estimated ejection fraction is 55-60%. Regional wall motion abnormalities: Hypokinesis. Cannot assess LV diastolic PATIENT NAME: MINDY CARTER function. Pericardium: A prominent pericardial fat pad is present. A small pericardial effusion is identified along the right ventricular free wall. The pericardial effusion has not changed since the previous study. Systemic veins: Inferior vena cava: The IVC is dilated. Measurements Left ventricle Value Ref CHOCO, LAX 4.2 cm 4.2 - 5.8 ESD, LAX 2.7 cm 2.5 - 4.0 FS, LAX 36 % 25 - 43 IVS, ED 2.1 cm 0.6 - 1.0 PW, ED 1.6 cm 0.6 - 1.0 IVS/PW, ED 1.31 --------- EF 66 % 52 - 72 E', lat khadar, TDI 10.8 cm/sec >=10.0 E', med khadar, TDI 5.5 cm/sec >=7.0 E', avg, TDI 8.1 cm/sec --------- Right ventricle Value Ref CHOCO, LAX 4.1 cm --------- Conclusions Summary: 1. Left ventricle: The cavity size is normal. Wall thickness is increased. Systolic function is normal. The estimated ejection fraction is 55-60%. Hypokinesis. Cannot assess LV diastolic function. 2. Pericardium, extracardiac: A small pericardial effusion is identified along the right ventricular free wall. The pericardial effusion has not changed since the previous study. 3. Inferior vena cava: The IVC is dilated. Electronically signed by Clayton Nathan MD 06/22/2023 23:08 at 2308 PATIENT NAME: MINDY CARTER [facility] 2023-06-22 14:03:00 [facility] ([facility] Hospitalist Discharge Summary REPORT#:[id number] REPORT STATUS: Signed REPORT INITIALIZATION DATE:06/22/23 TIME: 140 PATIENT: MINDY CARTER UNIT #: [id number] ROOM/BED: [place] [address] : 54 AGE: 67 SEX: M ATTEND: Bladimir Morse DO ADM AUTHOR: Bladimir Morse DO REPT SERVICE DT/TIME: 06/22/23 1403 * ALL edits or amendments must be made on the electronic/computer document * General Information Date of admission: Observation Start Date: Date of admission: 05/31/23 Discharge date: 06/22/23 Discharge diagnosis: Acute on chronic diastolic heart failure Multivessel coronary artery disease Hospital course: This is a 67-year-old male with history of high blood pressure, hyperlipidemia, diabetes mellitus, syncope, neuropathy, alcohol use, liver cirrhosis, stage II CKD presents with shortness of breath that has been increasing since 2 days ago. Patient took extra dose of Aldactone and hydrochlorothiazide which did not help. Patient also reports chest tightness and is currently on 5 L of oxygen per nasal cannula. Patient says that he cannot lie down he gets short of breath when he lies down. He drinks whiskey about 3 shots a day. He has been having increasing edema in bilateral lower extremities. No headaches or dizziness. No other complaints elicited. Cardiology consulted. Patient started on Lasix drip. Nephrology consulted for acute on chronic kidney disease. Cardiothoracic surgery consulted for multivessel coronary artery disease, patient taken to the OR for CABG on 2023. PT/OT consulted to evaluate and treat. Patient clinically improved, was discharged and advised to follow-up outpatient with PCP and specialist. Consultants: cardiology, cardiovascular surgery Pt. condition on discharge: improved Allergies: Allergies: No Known Allergies (Coded, 05/31/23) Free Text DxA P Notes Free text DxA P notes: VOLUME OL WITH Shortness of breath/hypoxia/3+ LEG EDEMA - CONT LASIX GTT, UF BY HD On 8 L oxygen via nasal cannula Fluid overload on chest x-ray On Lasix drip ICC on board Acute on chronic diastolic congestive heart failure - STABLE, CONT UF - Cardiology consulted - Echo: EF 55 to 60% S/p CABG on 06/10 Milrinone drip DC'd On Lasix drip 06/12 On BiPAP now off BiPAP 06/13 On 8 L oxygen via nasal cannula 06/13 Multivessel CAD, S/P CABG X3, ALAA - STABLE, CTS/ICC SEEN S/p CABG on 06/10 On aspirin, Plavix, amiodarone - no statin for abnormal LFTs/cirrhosis On milrinone drip DC'd Chest tube in place DC'd Cardiology, CT surgery, ICC on board Hypotension - ECHO EF 50-55% BP dropped to 80s over 50s overnight 06/11 On Levophed and vasopressin off pressors ICC, CT surgery on board NIYA ON CRF - CONT DIURESIS, RENAL SEEN Metolazone x 1 given 06/12 On Lasix drip, if urinary output does not improve, may require CRRT 06/12 Nephrology on board Renal function improving Pleural effusion DUE TO VOLUME OL - STABLE On Lasix drip Abnormal LFTs: -cholelithiasis with distended GB, no acute cholecystitis on US - Monitor - GI on board Diabetes mellitus II - STABLE HGBA1c 8.4% Insulin drip, transition to Sliding scale insulin as needed, long acting insulin as per [facility] Hypertension Renew medications once they have been updated in the computer Now on pressors for hypotension DEBILITY - REHAB SEEN, MAY NEED IRF Patient does not have a living will or medical power of defense attorney Patient is a full code 06/01 multivessel disease on cath, CTS consulted, patient undergoing preop evaluation for possible CABG. 06/02- pt continues cabg eval, conf Fri, nephro/GI consulted per cts, renal indices wnls today, Abd us confirmed cirrhosis with splenomegaly. 06/03 patient continues preop evaluation for CABG, IV Lasix transition to oral 06/04 CABG preop planning 06/05- CABG planning 06/06 ongoing CABG planning per CTS, blood sugars noted to be elevated in 240s to 300s. Will start on basal insulin 7 units for now daily, continue meal correctional insulin. Patient on glipizide and metformin at home holding for now given CABG eval and and pending surgical date. 06/07- pending CABG eval, d/w Cardiology and started patient on IV lasix 40 mg BID due to increasing wt, symptoms of dyspnea. Monitor I'O's. 06/08- poorly controlled blood sugars noted, increased basal insulin to 10 units daily, add meal time insulin AC, wt based compared to SSI admin, started on 4 Units reg insulin AC. Monitor I/O, contiued on IV lasix 40 mg BID, wt 110 kg today (dry wt reported to be 105 kg). 06/09- optimize insulin for improved glucose control, pending cabg tomorrow 06/10- pending cabg 06/19 - doing well. Ok to d/c home tomorrow if ok with all. Echo read pending. Disposition: S/p CABG on 06/11/2023. Chest tubes removed, on 8 L oxygen via nasal cannula, off pressors, fluid overload on chest x-ray, on Lasix drip, on insulin drip, kidney function improving. Working with PT/OT. Multiple specialty services on board. Continue CVICU care. Med Rec Med Rec Discharge meds: Stop taking the following medications: amLODIPine (NORVASC) 10 MG TAB BEDTIME. CARVEDILOL (COREG) 25 MG TAB 25 MILLIGRAM ORAL TWICE DAILY WITH MEALS. metFORMIN (GLUCOPHAGE) 500 MG TAB 500 MILLIGRAM ORAL TWICE DAILY. glyBURIDE (DIABETA) 5 MG TAB 5 MILLIGRAM ORAL DAILY. PANTOPRAZOLE (PROTONIX IV) 40 MG VIAL 40 MILLIGRAM INTRAVENOUS DAILY. PRAVASTATIN (PRAVACHOL) 40 MG TAB BEDTIME. GABAPENTIN (NEURONTIN) 100 MG CAP 100 MILLIGRAM TERAZOSIN (HYTRIN) 1 MG CAP 2 MILLIGRAM BEDTIME. HYDROCHLOROTHIAZIDE (HCTZ) 12.5 MG CAP 50 MILLIGRAM DAILY. SPIRONOLACTONE (ALDACTONE) 25 MG TAB 25 MILLIGRAM ORAL EVERY MORNING. DOXEPIN (SINEquan) 10 MG CAP 10 MILLIGRAM Continue taking these medications: ASPIRIN EC (ECOTRIN) 81 MG TAB.EC 81 MILLIGRAM ORAL DAILY. TIRZEPATIDE (MOUNJARO PEN (2mL)) 2.5 MG/0.5 ML PEN.INJCTR 12.5 EVERY WEEK CHOLECALCIFEROL (VITAMIN D3) (VITAMIN D3) 125 MCG (5,000 UNIT) TAB AZELASTINE (ASTELIN NASAL) 137 MCG (0.1 %) SPRAY 1 SPRAY NASAL TWICE DAILY. Budesonide/Glycopyr/Formoterol (BREZTRI AEROSPHERE INH) 160 MCG-9 MCG-4.8 MCG/ ACTUATION HFA.AER.AD 2 PUFF INHALATION TWICE DAILY. MONTELUKAST (SINGULAIR) 10 MG TAB Start taking the following new medications: CLOPIDOGREL (PLAVIX) 75 MG TAB 75 MILLIGRAM ORAL DAILY. Qty = 30 No Refills FERROUS SULFATE (FEOSOL) 325 MG (65 MG IRON) TAB 325 MILLIGRAM ORAL DAILY. Qty = 30 No Refills AMIODARONE (PACERONE) 200 MG TAB 200 MILLIGRAM ORAL THREE TIMES A DAY. Qty = 30 No Refills ATORVASTATIN (LIPITOR) 40 MG TAB 40 MILLIGRAM ORAL 2100 Qty = 30 No Refills METOPROLOL TARTRATE (LOPRESSOR) 25 MG TAB 12.5 MILLIGRAM ORAL EVERY 12 HOURS. Qty = 60 No Refills oxyCODONE (oxyCODONE) 5 MG TAB 5 MILLIGRAM ORAL EVERY 4 HOURS NEEDED. as needed for PAIN SCALE 1-6 Qty = 15 No Refills FUROSEMIDE (LASIX) 40 MG TAB 40 MILLIGRAM ORAL TWICE DAILY AT 9AM AND 5PM. Qty = [address] (PROTONIX) 40 MG TAB.DR 40 MILLIGRAM ORAL DAILY. Qty = 30 No Refills INSULIN GLARGINE (LANTUS) 100 UNIT/ML VIAL 40 UNIT SUBCUTANEOUS TWICE DAILY. Qty = 15 No Refills CYANOCOBALAMIN (VITAMIN B-12) 500 MCG TAB 500 MICROGRAM ORAL DAILY. Qty = 30 No Refills THIAMINE (VITAMIN B-1) 100 MG TAB 100 MILLIGRAM ORAL DAILY. Qty = 30 No Refills DME - INSULIN SYRINGES (INSULIN SYRINGES) 1 ITEM EACH EACH MISCELLANEOUS DIRECTED. Qty = 100 No Refills Instructions: Insulin Syringes of choice. DME - GLUCOSE LANCETS (GLUCOSE LANCETS) 1 ITEM EACH EACH MISCELLANEOUS DAILY. Qty = 100 No Refills Instructions: Glucose Lancets of Choice DME - GLUCOSE STRIPS (GLUCOSE STRIPS) 1 ITEM EACH EACH MISCELLANEOUS DAILY. Qty = 100 No Refills Instructions: Glucose Strips of Choice Objective VS/I O Last Documented: Result Date Time Pulse Ox 95 06/21 1323 Pulse 72 06/21 1323 Resp 24 06/21 1000 FiO2 21 06/21 0824 O2 Delivery Room air 06/21 0824 B/P 127/69 06/21 0711 B/P Mean 88.3 06/21 0711 Temp 98.1 06/21 0711 O2 Flow Rate 1 06/18 1013 General appearance: alert, awake, oriented Head/Eyes: clear cornea, EOMI, normal conjunctiva/sclera ENT: moist mucosal membranes Neck: normal thyroid, no JVD Cardiovascular: normal heart sounds, regular rate rhythm, no gallop, no murmur , no rub Respiratory: hypoxia, on oxygen Abdomen: non-tender, normal bowel sounds, soft Extremities: 3+ PRETIBIAL EDEMA Musculoskeletal: normal inspection Neuro/BUSINESS AREA MANAGER: alert, oriented X 3, normal speech, no motor deficits, no sensory deficits Skin: dry, intact, no rash Psychiatry: normal affect Discharge Instructions PCP PCP follow-up: PCP: No Primary or Family Physician Follow-up labs,proc, tx: FOLLOW UP AT [facility] FOR FURTHER THERAPY Discharge to: Home/Self Care Additional Discharge Routines: PCP Follow-Up, Glove Former Follow-Up, Fluid Restrictions, Weight Monitoring, F/U Labs/Procedures Diet: Diabetic, Cardiac Fluid restriction(mls/day): 1.5 L/DAY Weight monitoring: Daily Activity: As Tolerated Discharge management: greater than 30 mins, face to face encounter Time spent: >50% spent on counseling/coordination of care: yes Follow-up Appointments PCP follow-up: PCP: No Primary or Family Physician PCP follow up timeframe: In 1-2 weeks Consulting provider 1: Provider 1: Nathaniel Martel MD Specialty: Thoracic Surgery Consult follow up timeframe: In 1-2 weeks Consulting provider 2: Provider 2: Clyaton Nathan MD Specialty: CardiologyInterventional Follow up timeframe: In 1-2 weeks Consulting provider 3: Provider 3: Rigoberto Jarrell MD Specialty: Gastroenterology Follow up timeframe: In 1-2 weeks Consulting provider 4: Provider 4: Nkechi Bacon MD Specialty: Nephrology Follow up timeframe: In 1-2 weeks Quality: Discharge Advanced Care Plan 65 or Older Discussed with: patient Discussion included: living will, power of defense attorney, code status Current Medications Current medication review: I attest that the foregoing medication list in the medical record is true, accurate, and complete to the best of my knowledge. at 1551 RPT #:[id number] END OF REPORT [facility] 2023-06-22 10:44:00 [facility] Gastroenterology Progress Note REPORT#:[id number] REPORT STATUS: Signed REPORT INITIALIZATION DATE:06/22/23 TIME: 104 PATIENT: MINDY CARTER UNIT #: [id number] ROOM/BED: [place] [address] : 54 AGE: 67 SEX: M ATTEND: Bladimir Morse DO ADM AUTHOR: Farideh Harris REPT SERVICE DT/TIME: 06/22/23 1044 * ALL edits or amendments must be made on the electronic/computer document * Farideh Harris 06/22/23 1044: Subjective Patient reports: Yes: bowel movement, passing gas. No: abdominal pain, black stools, nausea, rectal bleeding, vomiting. Review of Systems Constitutional: Denies: chills, fever. Respiratory: Denies: SOB. Cardiovascular: Denies: chest pain. Neuro: Denies: headache. Objective General VS/I O: Last Documented: Result Date Time Pulse Ox 96 06/22 823 FiO2 21 06/21 08 O2 Delivery Room air 06/22 823 B/P 127/69 06/21 07 B/P Mean 88.3 06/21 710 Temp 36.7 06/21 710 Pulse 75 06/21 0711 Resp 17 06/21 0711 O2 Flow Rate 1 06/18 1013 24 hour I O ending at 0700: 06/21 0700 06/20 1900 Intake Total 240 Output Total 800 700 Balance -800 -460 Intake, Oral 240 Supplement Number 3 Bowel Movements Number Voids 5 Output, Urine 800 700 Patient 113.3 kg Weight Weight Standing scale Measurement Method PATIENT WEIGHT: Weight (lb): 249 Weight (oz): 12.54 Weight (kg): 113.300 Medications: Active Meds + DC'd Last 24 Hrs Furosemide (LASIX) 40 MG BID 9A 5P PO Insulin Glargine (Semglee) 30 UNIT DAILY SUBQ Atorvastatin Calcium (LIPITOR) 40 MG 2100 PO Oxycodone HCl (ROXICODONE) 5 MG Q4H PRN PRN PO Oxycodone HCl (ROXICODONE) 10 MG Q4H PRN PRN PO Insulin Human Lispro (HUMALOG) 0 AC HS SUBQ Fentanyl Citrate (SUBLIMAZE) 100 MCG PACU Q10MIN PRN PRN IV Fentanyl Citrate (SUBLIMAZE) 50 MCG PACU Q10MIN PRN PRN IV Hydralazine HCl (APRESOLINE) 5 MG PACU Q10MIN PRN PRN IV Hydrocodone Bitart/Acetaminophen (NORCO 5/325) 1 TAB PACU ONCE PO (CKD) Insulin Human Lispro (HUMALOG) 0 PACU ONCE PRN SUBQ Labetalol HCl (labetalol) 5 MG PACU Q10MIN PRN PRN IV Meperidine HCl (MEPERIDINE HCL/PF) 12.5 MG PACU ONCE PRN IV Morphine Sulfate (morphine SULFATE) 2 MG PACU Q10MIN PRN PRN IV Ondansetron HCl (ZOFRAN) 4 MG PACU ONCE PRN IV Ropivacaine (NAROPIN 0.5% 150 MG/30mL) 150 MG ASDIR PRN LOCAL Tramadol HCl (ULTRAM) 50 MG PACU ONCE PO (CKD) Insulin Glargine (Semglee) 40 UNIT BEDTIME SUBQ Ipratropium [place] (ATROVENT) 500 MCG RTQ2H PRN PRN INH Cyanocobalamin (Vitamin B-12 500 mcg tab) 500 MCG DAILY PO Ferrous Sulfate (FERROUS SULFATE) 325 MG DAILY PO Bisacodyl (DULCOLAX) 10 MG ONCE PRN RECTAL Magnesium Hydroxide (MILK OF MAGNESIA) 30 ML ONCE PRN PO Vasopressin (VASOSTRICT 20 Unit/NS 100ML) 100 ML ASDIR IV (CKD) Dopamine HCl/Dextrose (DOPamine 400MG/D5W 250ML) 250 ML ASDIR IV Epinephrine (ADRENALIN CHLORIDE) 4 MG ASDIR IV Sodium Chloride (SODIUM CHLORIDE 0.9%) 246 ML Melatonin (Melatonin) 6 MG BEDTIME PRN PO Clopidogrel Bisulfate (Plavix) 75 MG DAILY PO Polyethylene Glycol (MIRALAX) 17 GM DAILY PO Pantoprazole (PROTONIX) 40 MG DAILY@0600 PO Milrinone Lactate/Dextrose (MILRINONE 20MG/D5W 100ML) 100 ML TITRATE IV (CKD) Aspirin (ASPIRIN) 81 MG DAILY PO Amiodarone HCl (CORDARONE) 200 MG TID PO Docusate Sodium (COLACE) 100 MG BID PO Metoprolol Tartrate (LOPRESSOR) 12.5 MG Q12HR PO Sennosides (Senna Lax 8.6 MG TABLET) 17.2 MG BEDTIME PO Calcium Chloride (CALCIUM CHLORIDE) 1 GM ASDIR PRN IV Dextrose/Water (DEXTROSE 10% IN WATER) 125 ML ASDIR PRN IV (CKD) Dextrose/Water (DEXTROSE 10% IN WATER) 250 ML ASDIR PRN IV (CKD) Insulin Human Regular (HumuLIN R) 100 UNIT ASDIR IV (CKD) Sodium Chloride (SODIUM CHLORIDE 0.9%) 99 ML Magnesium Sulfate (MAGNESIUM SULFATE 4GM/SWFI 100ML) 100 ML ASDIR PRN IV Magnesium Sulfate (MAGNESIUM SULFATE 2GM/SWFI 50ML) 50 ML ASDIR PRN IV Magnesium Sulfate/Dextrose (MAGNESIUM SULFATE 1GM/D5W 100ML) 100 ML ASDIR PRN IV Nitroglycerin/Dextrose (NITROGLYCERIN 50,000MCG/D5W 250ML) 250 ML ASDIR IV Norepinephrine Bitartrate (NOREPINEPHRINE 8 MG/NS 250 ML) 250 ML TITRATE IV Ondansetron HCl (ZOFRAN) 4 MG Q6H PRN PRN IV Potassium Chloride (KCL 20MEQ/SWFI 100ML) 100 ML ASDIR PRN IV Sodium Bicarbonate (SODIUM BICARBONATE) 50 MEQ ASDIR PRN IV Sodium Chloride (SODIUM CHLORIDE 0.9%) 1,000 ML .Q20H IV Sodium Chloride (SODIUM CHLORIDE 0.9%) 250 ML Q24H IV Lactulose (LACTULOSE) 10 GM DAILY PRN PRN PO Thiamine HCl (THIAMINE HCL) 100 MG DAILY PO Dietitian nutrition assessment The data set between the solid lines has been imported from the dietitian's assessment. BMI Calculated: 36.7 Nutrition related diagnosis: Nutrition diagnosis details: Nutrition problem: Increased nutrient needs Nutrition etiology: Acute illness Nutrition signs and symptoms: CARDIAC POST-OP Nutrition prescription: 1. CARDIAC CCD5 DIET. 2. GLUCERNA 4 PER DAY. 3. HEALTHY HEART CARBOHYDRATE CONTROLLED EDUCATION/HANDOUTS PROVIDED. Dietitian name: Annia Jeffery, DIET Assessment completed: 06/17/23 Physical Exam General appearance: alert, awake, oriented HEENT: atraumatic, normocephalic Neck: full range of motion Cardiovascular: normal S1/S2, regular rate rhythm Respiratory: symmetric expansion, no distress Abdomen: non-tender, normal bowel sounds, soft, no guarding Extremities: moves all Musculoskeletal: normal inspection Neuro/BUSINESS AREA MANAGER: alert, normal speech Skin: dry, intact, normal color Psychiatry: normal affect, normal judgment/insight, normal mood Results Findings/Data: Laboratory Tests 06/22/23 0259: [Embedded Image Not Available] Laboratory Tests 06/21 06/21 06/21 06/20 06/20 1122 0709 0259 2020 1626 Chemistry Sodium (134 - 147 mEq/L) 136 Potassium (3.4 - 5.0 mEq/L) 3.7 Chloride (100 - 108 mEq/L) 97 L Carbon Dioxide (21 - 33 mEq/l) 31 Anion Gap (0 - 20) 11 BUN (7 - 25 mg/dL) 51 H Creatinine (0.6 - 1.3 mg/dL) 1.4 H Glomerular Filtr Rate (80 - 90) 54.8 L Glucose (77 - 141 mg/dL) 212 H POC Glucose (70 - 110 MG/DL) 138 H 165 H 222 H 149 H Calcium (8.0 - 10.5 mg/dL) 7.6 L Magnesium (1.6 - 2.6 mg/dL) 2.36 Laboratory Tests 06/21 0259 Hematology WBC (4.5 - 11.0 x10 3/uL) 8.7 RBC (4.00 - 5.60 x10 6/uL) 3.30 L Hgb (12.5 - 16.9 g/dL) 9.8 L Hct (37.5 - 50.7 %) 31.6 L MCV (81.0 - 99.0 fL) 95.8 MCH (27.0 - 33.0 pg) 29.7 MCHC (33.0 - 37.0 g/dL) 31.0 L RDW (11.5 - 14.5 %) 14.7 H Plt Count (150 - 400 x10 3/uL) 188 MPV (7.0 - 9.0 fL) 11.3 H Neut % (Auto) (56.0 - 77.0 %) 77.9 H Lymph % (Auto) (14.0 - 32.0 %) 5.3 L [place] % (Auto) (4.8 - 9.0 %) 12.5 H Eos % (Auto) (0.3 - 3.7 %) 2.1 Baso % (Auto) (0.0 - 2.0 %) 0.7 Neut # (Auto) (2.0 - 7.6 x10 3/uL) 6.74 Lymph # (Auto) (1.0 - 3.8 x10 3/uL) 0.46 L [place] # (Auto) (0.1 - 0.8 x10 3/uL) 1.08 H Eos # (Auto) (0.0 - 0.2 x10 3/uL) 0.18 Baso # (Auto) (0.0 - 0.2 x10 3/uL) 0.06 Abs Immat Gran (auto) (0.00 - 0.03 x10 3/uL) 0.13 H Immature Gran % (0.0 - 2.0 %) 1.5 Nucleated RBC % (0 - 0 %) 0.0 Nucleated RBCs # (Man) (0.0 - 0.1 x10 3/uL) 0.00 Radiology Data: Recent Impressions: RADIOLOGY - XR CHEST 1 V 06/21 1038 Report Impression - Status: SIGNED Entered: 06/22/2023 1137 IMPRESSION: 1. Previous CABG. There is unchanged cardiac silhouette enlargement, suggestive of CHF. 2. Airspace disease in the mid to lower left lung and right lung base is either due to atelectasis, pneumonia, or a combination of these, and is similar or slightly improved. Interstitial or peribronchial opacity has improved, suggestive of improving edema. 3. At least small bilateral pleural effusions are noted, similar or slightly improved. Impression By: Mert Petersen M.D. Results: labs reviewed, vital signs reviewed, x-ray personally reviewed Diagnosis, Assessment Plan Problem List/A P: 1. Cirrhosis 2. Hepatitis C 3. Elevated LFTs 4. Alcohol dependence 5. CHF exacerbation Free Text A P: (06/03/2023) MELD score of 7, estimated 3-month mortality of 1.9% S/p CABG x 3, EVH, ALAA, PP, No acute complaints. Recent BM. at bedside. Recommendations: 1. Monitor LFTs; avoid further hepatotoxic medications; improving 2. INR 1.1 3. Abdominal ultrasound revealed cirrhosis with splenomegaly, cholelithiasis, and nonspecific gallbladder wall thickening likely secondary to chronic liver disease as patient does not express abdominal pain at this time- repeat us shows similar findings 4. History of hepatitis C, PCR - not detected 5. Daily alcohol use, cont. MVI and thiamine; encouraged cessation 6. Agree with current bowel regimen 7. Further recommendations may follow Consultants: cardiology, cardiovascular surgery Rigoberto Jarrell 06/22/232053: Attestations Physician Attestation Agree w/findings plan: Agree with the findings and plan as documented by RAHUL Tobias. at 0268 at 2358 RPT #:[id number] END OF REPORT [facility] 2023-06-22 08:24:00 [facility] ([facility] Cardiothoracic Surgery Prog REPORT#:[id number] REPORT STATUS: Signed REPORT INITIALIZATION DATE:06/22/23 TIME: 823 PATIENT: MINDY CARTER UNIT #: [id number] ROOM[place]BED: [facility] [place] : 54 AGE: 67 SEX: M ATTEND: Bladimir Morse DO ADM AUTHOR: Johnna Pablo Physic REPT SERVICE DT/TIME: 06/22/23823 * ALL edits or amendments must be made on the electronic/computer document * General Post-op: day 11 Status post: 06/11/23 CABG x 3 (COSTA-LAD, SVG-Diag, SVG-OM) EVH (RGSV) MATHIEU PP Subjective Chief complaint: Postop cabg Review of Systems Constitutional: Denies: fatigue. Skin: Denies: abrasion, bruising, contusion. Allergy/Immun: Denies: allergic reaction, anaphylaxis, hives. Respiratory: Denies: HERRING (dyspnea on exertion). Cardiovascular: Denies: chest pain, palpitations. Heme: Denies: adenopathy, bleeding, bruising. Endocrine: Denies: cold intolerance, heat intolerance, polydipsia. Neuro: Denies: confusion, dizziness, seizure, syncope. All systems rev neg: except as marked Objective General VS/I O Last Documented: Result Date Time Pulse Ox 94 06/21 0711 B/P 127/69 06/21 0711 B/P Mean 88.3 06/21 0711 O2 Delivery Room air 06/21 0711 Temp 98.1 06/21 0711 Pulse 75 06/21 0711 Resp 17 06/21 0711 FiO2 21 06/19 2228 O2 Flow Rate 1 06/18 1013 24 hour I O ending at 0700: 06/21 0700 06/20 1900 Intake Total 240 Output Total 800 700 Balance -800 -460 Intake, Oral 240 Supplement Number 3 Bowel Movements Number Voids 5 Output, Urine 800 700 Patient 113.3 kg Weight Weight Standing scale Measurement Method PATIENT WEIGHT: Weight (lb): 249 Weight (oz): 12.54 Weight (kg): 113.300 Physical Exam General appearance: alert, awake, oriented HEENT: anicteric, mucosal membranes moist, pupils reactive to light Neck: full range of motion, non-tender Cardiovascular: normal heart sounds, regular rate rhythm Respiratory: aerating well, symmetric expansion Abdomen: soft, non-tender Genitourinary: no bladder distention, no flank pain Extremities: dry, moves all Musculoskeletal: no muscle spasm Skin: dry, intact Psychiatry: normal affect, normal mood Quality: Trauma Gen Surg Advanced Care Plan 65 or Older Discussed with: patient Discussion included: living will, power of defense attorney, code status Current Medications Current medication review: I attest that the foregoing medication list in the medical record is true, accurate, and complete to the best of my knowledge. VTE Prophylaxis - General VTE prophylaxis initiated: yes Diagnosis, Assessment Plan Hospital course to date: This is a 67-year-old gentleman with a past medical history of hypertension, hyperlipidemia, diabetes, neuropathy, alcohol use, liver cirrhosis, kidney disease, syncope who came to the hospital with shortness of breath and chest tightness for 2 days. Patient describes significant orthopnea and increasing edema in bilateral lower extremities that brought the patient to the hospital. Initial workup positive for mildly elevated troponin and elevated BNP and was diagnosed with NSTEMI and CHF exacerbation with acute hypoxic respiratory failure. Patient then underwent cardiac catheterization for elevated troponin. CV surgery was consulted for multivessel coronary artery disease found on angiogram. 1. multivessel disease -Patient underwent cardiac angiogram: Left main-proximal to mid 60 to 70% stenosis LAD-ostial LAD 90% stenosis Left circumflex-patent RCA-mild 30 to 40% mid stenosis EF 55 to 60% Wall motion is normal, grade 1 diastolic dysfunction, normal systolic function. Mitral valve: Moderately calcified with leaflet thickening. Moderate stenosis. Mild regurgitation. Aortic valve: Thickening and sclerosis 2. Liver disease -Patient recently diagnosed. Patient does not live local to [place]. Will consult gastroenterology to see patient. -EtOH cessation 3. Chronic kidney disease -Patient does not live local to [place]. Will consult nephrology to see patient. Patient will be presented at complex cardiology conference on Wednesday. Further recommendations to follow. 06/04/23 Patient in stable condition Labs and imaging reviewed Case presented at complex cardiology conference this morning and the team deemed patient will be best be suited with CABG. Preop workup ongoing Timing of surgery pending Plan of care discussed with patient and family. All questions were answered. 06/05/23 Patient doing well, denies chest pain Labs reviewed Pre op workup ongoing, pending vein mapping and carotid duplex On 4l nasal cannula, wean off oxygen as tolerated Incentive spirometer teaching Cardiac diet OOB to chair, ambulate Plan of care discussed with patient, all questions were answered. 06/06/23 Patient in stable condition Denies chest pain Wean off oxygen Encourage I-S use and deep breathing Tentatively plan for CABG in the upcoming week Plan of care discussed with patient, all questions were answered. 06/07/23 Patient seen and examined, denies chest pain Labs reviewed I-S use encourage, wean off oxygen as tolerated, on 2 L nasal cannula Tolerating diet Out of bed in chair, PT OT Timing of surgery pending Plan of care discussed with the patient, all questions were answered 06/08/23 Patient in stable condition Labs reviewed On room air, encourage I-S use Preop workup completed I will tentatively schedule him for surgery on Wednesday Plan of care discussed with patient, all questions were answered 06/09/23 Patient in stable condition Labs reviewed On room air, encourage I-S use Preop workup completed I will tentatively schedule him for surgery on Wednesday Plan of care discussed with patient, all questions were answered 06/10/23 Patient is stable condition, denies chest pain On room air Preop workup completed Plan for surgery on Wednesday-CABG and possible mitral valve I have discussed with the patient the operation, risk involved, calculated STS risk score, benefits, alternatives, and complicated. Patient acknowledges understanding and is willing to proceed. 06/11/23 CABG x 3 (COSTA-LAD, SVG-Diag, SVG-OM) EVH (RGSV) ALAA PP 06/12/23 POD 1 AAO x 3 Respiratory: on 10 L NC, wean as tolerated. Encourage IS. CT in place 325/196, leave in place, monitor outputs. Cardiac: Sinus rhythm. on levo 5, epi 2, Milrinone. GI: advance diet as tolerated. continue Bowel regimen. : Marques in place. Patient walked unit with PT DC Tylenol due to liver disease Patient was seen and examined at [facility]. Plan of care discussed with multidisciplinary team 06/13/23 POD 2 AAO x 3 Respiratory: on Bipap Encourage IS. Cardiac: Sinus rhythm. Pacing wires on standby, episode of hypotension, on levo @ 6, no response to dopamine for urine output GI: advance diet as tolerated. continue Bowel regimen. : Marques in place. Low urine output, start Lasix drip, vasopressin Plan to start Lasix drip. If no improvement in renal perfusion, patient will need CRRT. Patient was seen and examined at [facility]. Plan of care discussed with multidisciplinary team Nephrology following. Appreciate input Continue supportive care, 06/14/23 POD 3 AAOx3 Respiratory: Teleflex 60% Cardiac: Sinus rhythm, pacing wires on standby, levo at 2, vaso turned off this a.m. Continues on Lasix drip Urine output 1100 Chest tube drainage Abdominal ultrasound Evaluation limited by overlying bandage. Cirrhotic liver morphology. Cholelithiasis and distended gallbladder without sonographic features of acute cholecystitis. Will obtain bedside echo. Patient was seen and examined Dr. Martel. Continue supportive care Plan of care discussed with multidisciplinary team. 06/15/23 POD 4 AAOx3 Respiratory: On 2 L nasal cannula, wean as tolerated Cardiac: Sinus rhythm, pacing wires on standby, off pressor Urine output improved on Lasix drip, continue to monitor urine output DC left chest tube. Continue PT/OT, out of bed Patient was seen and examined Dr. Martel. Continue supportive care Plan of care discussed with multidisciplinary team. 06/17/23 POD 6 AAOx3 Respiratory: On 3 L NC Cardiac: Sinus rhythm, pacing wires on standby, off pressor monitor urine output. Continue PT/OT, out of bed Patient was seen and examined Dr. Martel. Continue supportive care Plan of care discussed with multidisciplinary team. Okay to CVN 1 continue PT/OT 06/18/23 POD 6 AAOx3 Respiratory: Cardiac: Sinus rhythm, pacing wires on standby, off pressor monitor urine output. Continue PT/OT, out of bed Patient was seen and examined Dr. Martel. Continue supportive care 06/19/23 POD 7 Patient is stable condition, denies complaints Labs reviewed Wean off oxygen, on 1 L nasal cannula Encourage incentive spirometer use Discontinue pacing wires Limited echocardiogram Bilateral lower extremity Dopplers negative for DVT Tolerating diet, bowel regimen Out of bed to chair, PT/OT Discharge planning for home with family support Plan of care discussed with patient, all questions were answered 06/20/23 POD 8 Patient doing well, denies complaints Labs reviewed Echocardiogram shows EF 50 to 55%, no pericardial effusion On room air encourage incentive spirometer use Cardiac diet, bowel regimen PT/OT, ambulate Discharge planning for home Discussed plan of care with patient, all questions were answered 06/21/23 POD 9 Patient doing well, denies complaints Labs reviewed Echocardiogram shows EF 50 to 55%, no pericardial effusion On room air encourage incentive spirometer use Cardiac diet, bowel regimen PT/OT, ambulate Discharge planning for home Discussed plan of care with patient, all questions were answered 06/22/23 POD 10 Patient resting comfortable Denies complaints Patient was pitting edema bilateral lower extremities. Followed by renal. Echo and DVT studies completed. Tolerating diet, continue bowel regimen, having bowel movements Patient has rehab arranged at [facility]. Patient wishes to be discharged home and will present to [facility] rehab tomorrow. He will be followed closely by his renal physician in [facility]. Consultants: cardiology, cardiovascular surgery at 1510 at 1018 RPT #:[id number] END OF REPORT [facility] 2023-06-21 16:07:00 [facility] Nephrology Progress Note REPORT#:[id number] REPORT STATUS: Signed REPORT INITIALIZATION DATE:06/21/23 TIME: 1606 PATIENT: MINDY CARTER UNIT #: [id number] ROOM/BED: 3359-1 : 54 AGE: 67 SEX: M ATTEND: Bladimir Morse DO ADM AUTHOR: Nkechi Bacon MD REPT SERVICE DT/TIME: 06/21/23 1607 * ALL edits or amendments must be made on the electronic/computer document * Subjective Chief complaint: SOB, CP HPI: 67-year-old male known to have hypertension, diabetes mellitus, hyperlipidemia, liver cirrhosis, chronic kidney disease who presented with shortness of breath and chest tightness and on further workup was found to have multivessel disease therefore he was being worked up for possible CABG. He said he had been diagnosed recently with chronic kidney disease but did not have any nausea, orthopnea, cramping, change of taste, involuntary movements, urinary complaints. He denied any chronic use of NSAIDs. He said for most part his blood pressures were controlled at home. 06/20 Patient denying all systemic review.Feeling well. Objective General VS/I O: Vital Signs: Date Time Temp Pulse Resp B/P B/P Pulse O2 O2 Flow FiO2 Mean Ox Delivery Rate 06/21 1323 72 95 06/21 1300 72 96 06/21 1200 68 96 06/21 1100 70 94 06/21 1000 67 24 94 06/21 0900 73 0 97 06/21 0824 96 Room air 21 06/21 0800 75 0 96 06/21 0711 36.7 75 17 127/69 88.3 94 Room air 06/21 0700 75 0 95 06/21 0330 36.9 74 13 119/65 0.0 93 Room air 06/21 0328 74 22 119/65 87 94 06/20 2333 73 123/64 87 97 06/20 2332 36.8 72 13 123/64 0.0 98 Nasal cannula 06/20 1836 78 23 126/66 90 93 06/20 1836 36.8 78 13 126/66 0.0 95 Room air 24 hour I O ending at 0700: 06/21 0700 06/20 1900 Intake Total 240 Output Total 800 700 Balance -800 -460 Intake, Oral 240 Supplement Number 3 Bowel Movements Number Voids 5 Output, Urine 800 700 Patient 113.3 kg Weight Weight Standing scale Measurement Method PATIENT WEIGHT: Weight (lb): 249 Weight (oz): 12.54 Weight (kg): 113.300 Physical Exam General appearance: alert, awake, oriented Head/eyes: atraumatic, EOMI ENT: moist mucous membranes, normal nose Neck: no JVD, no lymphadenopathy Cardiovascular: normal heart sounds, regular rate and rhythm Respiratory: aerating well, clear to auscultation Abdomen: non-tender, soft Genitourinary: no bladder distention, no flank pain Extremities: no edema, no gangrene, no swelling Diagnosis, Assessment Plan Free Text A P: 67-year-old male known to have hypertension, diabetes mellitus, hyperlipidemia, liver cirrhosis, chronic kidney disease who presented with shortness of breath and chest tightness and on further workup was found to have multivessel disease therefore he was being worked up for possible CABG. He said he had been diagnosed recently with chronic kidney disease but did not have any nausea, orthopnea, cramping, change of taste, involuntary movements, urinary complaints. He denied any chronic use of NSAIDs. He said for most part his blood pressures were controlled at home. Nephrology following for: 1. CKD:: Most recent creatinine was staying in normal range therefore plan is to keep mean arterial pressure above 65 and avoid nephrotoxic agents. 2. Hypertension: Mostly controlled therefore plan is to continue same. 3. Hypervolemia: Plan is to monitor input and output closely and treat with Lasix if needed. His echocardiogram showed an EF of 55 to 60%. 4. Chest pain/shortness of breath: He had been worked up with left heart cath and received contrast recently. Plan was to monitor closely for contrast- induced nephropathy and keep hydrated. 06/20 1. NIYA on CKD: Most likely cardiorenal.Kidney function stable . 2. Hypotension:He is post op CABG and is requiring pressor support, plan to monitor and keep MAP>65. Resolved 3. Hypervolemia: . Improved.He has been started on PO lasix. 4. Chest pain/shortness of breath: s/p CABG 06/10. 5/Hypokalemia:Plan to replace PRN. 6/Patient okay to go home from nephrology standpoint. Consultants: cardiology, cardiovascular surgery at 1630 RPT #:[id number] END OF REPORT [facility] 2023-06-21 15:26:00 [facility] ([facility]) Rehab Progress Note REPORT#:[id number] REPORT STATUS: Signed REPORT INITIALIZATION DATE:06/21/23 TIME: 152 PATIENT: MINDY CARTER UNIT #: [id number] ROOM/BED: [place] [id number] : 54 AGE: 67 SEX: M ATTEND: Bladimir Morse DO ADM AUTHOR: Britta Herndon PA-C REPT SERVICE DT/TIME: 06/21/23 1526 * ALL edits or amendments must be made on the electronic/computer document * Subjective Chief complaint: Pt seen and examined. No acute distress. He is in the shower with his assisting. Noted to have continued bilateral lower extremity edema with a small blister on the dorsal foot. Both him and his seem upset. Objective General VS: Vital Signs: Date Time Temp Pulse Resp B/P B/P Pulse O2 O2 Flow FiO2 Mean Ox Delivery Rate 06/20 1501 70 16 90 06/20 1500 71 17 95 06/20 1400 109 28 94 06/20 1300 74 31 95 06/20 1200 72 26 94 06/20 1132 98.1 71 19 124/68 0.0 93 06/20 1130 72 23 124/68 91 93 06/20 1110 73 30 94 06/20 1100 72 30 93 06/20 1000 71 17 91 06/20 0900 75 22 91 06/20 0810 94 Room air 06/20 0800 79 20 93 06/20 0709 97.9 74 20 125/65 0.0 92 06/20 0708 74 20 125/65 89 92 06/20 0700 73 20 92 06/20 0403 97.9 71 13 129/62 0.0 93 Room air 06/19 2353 97.9 73 13 121/61 0.0 95 Room air 06/19 2228 94 Room air 21 06/19 1808 98.1 76 13 133/63 0.0 96 Room air 06/19 1639 98.1 74 20 153/65 0.0 94 Room air PATIENT WEIGHT: Weight (lb): 249 Weight (oz): 5.49 Weight (kg): 113.100 Medications: Active Meds + DC'd Last 24 Hrs Potassium Chloride (POTASSIUM CHLORIDE 20MEQ TAB.ER) 40 MEQ ONCE ONE PO (DC) Furosemide (LASIX) 40 MG BID 9A 5P PO Insulin Glargine (Semglee) 30 UNIT DAILY SUBQ Atorvastatin Calcium (LIPITOR) 40 MG 2100 PO Oxycodone HCl (ROXICODONE) 5 MG Q4H PRN PRN PO Oxycodone HCl (ROXICODONE) 10 MG Q4H PRN PRN PO Insulin Human Lispro (HUMALOG) 0 AC HS SUBQ Fentanyl Citrate (SUBLIMAZE) 100 MCG PACU Q10MIN PRN PRN IV Fentanyl Citrate (SUBLIMAZE) 50 MCG PACU Q10MIN PRN PRN IV Hydralazine HCl (APRESOLINE) 5 MG PACU Q10MIN PRN PRN IV Hydrocodone Bitart/Acetaminophen (NORCO 5/325) 1 TAB PACU ONCE PO (CKD) Insulin Human Lispro (HUMALOG) 0 PACU ONCE PRN SUBQ Labetalol HCl (labetalol) 5 MG PACU Q10MIN PRN PRN IV Meperidine HCl (MEPERIDINE HCL/PF) 12.5 MG PACU ONCE PRN IV Morphine Sulfate (morphine SULFATE) 2 MG PACU Q10MIN PRN PRN IV Ondansetron HCl (ZOFRAN) 4 MG PACU ONCE PRN IV Ropivacaine (NAROPIN 0.5% 150 MG/30mL) 150 MG ASDIR PRN LOCAL Tramadol HCl (ULTRAM) 50 MG PACU ONCE PO (CKD) Insulin Glargine (Semglee) 40 UNIT BEDTIME SUBQ Ipratropium [place] (ATROVENT) 500 MCG RTQ2H PRN PRN INH Cyanocobalamin (Vitamin B-12 500 mcg tab) 500 MCG DAILY PO Ferrous Sulfate (FERROUS SULFATE) 325 MG DAILY PO Bisacodyl (DULCOLAX) 10 MG ONCE PRN RECTAL Magnesium Hydroxide (MILK OF MAGNESIA) 30 ML ONCE PRN PO Vasopressin (VASOSTRICT 20 Unit/NS 100ML) 100 ML ASDIR IV (CKD) Dopamine HCl/Dextrose (DOPamine 400MG/D5W 250ML) 250 ML ASDIR IV Epinephrine (ADRENALIN CHLORIDE) 4 MG ASDIR IV Sodium Chloride (SODIUM CHLORIDE 0.9%) 246 ML Melatonin (Melatonin) 6 MG BEDTIME PRN PO Clopidogrel Bisulfate (Plavix) 75 MG DAILY PO Polyethylene Glycol (MIRALAX) 17 GM DAILY PO Pantoprazole (PROTONIX) 40 MG DAILY@0600 PO Milrinone Lactate/Dextrose (MILRINONE 20MG/D5W 100ML) 100 ML TITRATE IV (CKD) Aspirin (ASPIRIN) 81 MG DAILY PO Amiodarone HCl (CORDARONE) 200 MG TID PO Docusate Sodium (COLACE) 100 MG BID PO Metoprolol Tartrate (LOPRESSOR) 12.5 MG Q12HR PO Sennosides (Senna Lax 8.6 MG TABLET) 17.2 MG BEDTIME PO Calcium Chloride (CALCIUM CHLORIDE) 1 GM ASDIR PRN IV Dextrose/Water (DEXTROSE 10% IN WATER) 125 ML ASDIR PRN IV (CKD) Dextrose/Water (DEXTROSE 10% IN WATER) 250 ML ASDIR PRN IV (CKD) Insulin Human Regular (HumuLIN R) 100 UNIT ASDIR IV (CKD) Sodium Chloride (SODIUM CHLORIDE 0.9%) 99 ML Magnesium Sulfate (MAGNESIUM SULFATE 4GM/SWFI 100ML) 100 ML ASDIR PRN IV Magnesium Sulfate (MAGNESIUM SULFATE 2GM/SWFI 50ML) 50 ML ASDIR PRN IV Magnesium Sulfate/Dextrose (MAGNESIUM SULFATE 1GM/D5W 100ML) 100 ML ASDIR PRN IV Nitroglycerin/Dextrose (NITROGLYCERIN 50,000MCG/D5W 250ML) 250 ML ASDIR IV Norepinephrine Bitartrate (NOREPINEPHRINE 8 MG/NS 250 ML) 250 ML TITRATE IV Ondansetron HCl (ZOFRAN) 4 MG Q6H PRN PRN IV Potassium Chloride (KCL 20MEQ/SWFI 100ML) 100 ML ASDIR PRN IV Sodium Bicarbonate (SODIUM BICARBONATE) 50 MEQ ASDIR PRN IV Sodium Chloride (SODIUM CHLORIDE 0.9%) 1,000 ML .Q20H IV Sodium Chloride (SODIUM CHLORIDE 0.9%) 250 ML Q24H IV Lactulose (LACTULOSE) 10 GM DAILY PRN PRN PO Thiamine HCl (THIAMINE HCL) 100 MG DAILY PO Functional Progress Functional progress: ERVISION: 1. One on one supervision with cueing and assistance provided to ensure proper performance of all activities. Yes Precautions: STERNAL Cardiac Fall Oxygen Desaturation Safety addressed through use of: Verbal Cues Tactile Cues Gait Belt Gait Device RW WC TO FOLLOW Weightbearing: No Restriction Ambulation Distance: 150FT Progression: Forward Lateral, Right Lateral, Left Assistance Level: Minimal Assistance Gait Deviations: Decreased Ember Lacks Heel Strike - Bilat Effects of Treatment: Balance Improved Tye of care decreased Cardio tolerance improved Function Improved Tolerance increased Post Treatment Precautions: In Bed, Rails Up Family at Bedside Call Light in Reach Nursing Notified O2 On Pulse OX in Place Telephone in Reach Review Plan of Care: Yes PT charges: Gait Training [id number] Gait Cmt: Pt cleared by RN and agreeable to therapy. Pt ambulated as outlined above. Measured vitals throughout session. At rest on RA, 87% SpO2. With activity on RA, 85% SpO2. At rest with 2L O2, SpO2 94%. With activity on 2L O2, SpO2 decreased to 89-90%. Increased to 3L O2, SpO2 maintained at 95% with activity. Pt required Mod A for supine<>sit transfers. Sit<>Stand transfers with Min A and VC for compliance with sternal precautions. Pt required frequent VC for adhering to sternal precautions, educated pt on importance of following precautions for healing. Pt verbalized understanding to all education. Pt left supine in bed with all needs met, call light in reach, and RN notified of results of session. If this is the patient's last treatment, this entry Start Time: 1442 Stop Time: 1510 Treatment Time: ( minutes) 0:28 Completed by: Annia Schultz Conference/Supervising PT: Yes Supervising Therapist: Joe Chang SUPERVISION: 1. One on one supervision with cueing and assistance provided to ensure proper performance of all activities: Yes Precautions: Cardiac Fall Sternal Oxygen Desaturation Safety addressed through use of: Verbal Cues Tactile Cues Observed precautions for: SEE ABOVE ACTIVITIES PERFORMED: Sit to Stand: Minimal Assistance Pivot Transfer: Minimal Assistance Bed to/from chair: Minimal Assistance Assistive Device Used: Staff Support TRANSPORT CHAIR HANDLES Balance: Fair Safety Awareness: Good Effects of Treatment: Cardio tolerance improved Circulation improved Relaxation enhanced Tolerance increased Comments: PATIENT W INCREASED ACTIVITY TOLERANCE AND FUNCTION FOR TRANFSERS. Document Pain/Education: Yes Review OT Plan of Care: Yes Document OT charges: FT/THERAP. ACTIVITY 46161 If this is the patient's last treatment, this entry serves as the discharge summary: Y Start Time: 1100 Stop Time: 1109 Treatment time ( minutes): 0:09 Completed by: Jori Blanco . Occupational Therapy: Plan of Care OT Problem List: 1 Impaired Strength/ROM Physical Exam General appearance: alert, awake, oriented HEENT: anicteric, mucosal membranes moist, sclera clear Neck: supple, no JVD Cardiovascular: regular rate rhythm, S1/S2, no murmur Respiratory: bibasilar crackles, diminished breath sounds (right lower base), aerating well Abdomen: non-distended, soft, non-tender Skin: incision (C/D/I), dry, intact, no rash Musculoskeletal - general: Musculoskeletal - general: joints normal, range of motion normal, no atrophy Neuro/BUSINESS AREA MANAGER: alert, oriented X 3, normal speech, no motor deficits, no sensory deficits Results Findings/Data: Laboratory Tests: 06/20 06/20 06/20 06/19 06/19 1134 0710 0320 1934 1633 Chemistry Sodium (134 - 147 mEq/L) 136 Potassium (3.4 - 5.0 mEq/L) 3.3 L Chloride (100 - 108 mEq/L) 96 L Carbon Dioxide (21 - 33 mEq/l) 34 H Anion Gap (0 - 20) 9 BUN (7 - 25 mg/dL) 60 H Creatinine (0.6 - 1.3 mg/dL) 1.4 H Glomerular Filtr Rate (80 - 90) 54.8 L Glucose (77 - 141 mg/dL) 137 POC Glucose (70 - 110 MG/DL) 215 H 145 H 208 H 198 H Calcium (8.0 - 10.5 mg/dL) 7.6 L Magnesium (1.6 - 2.6 mg/dL) 2.51 Hematology WBC (4.5 - 11.0 x10 3/uL) 9.3 RBC (4.00 - 5.60 x10 6/uL) 3.29 L Hgb (12.5 - 16.9 g/dL) 9.8 L Hct (37.5 - 50.7 %) 30.8 L MCV (81.0 - 99.0 fL) 93.6 MCH (27.0 - 33.0 pg) 29.8 MCHC (33.0 - 37.0 g/dL) 31.8 L RDW (11.5 - 14.5 %) 14.8 H Plt Count (150 - 400 x10 3/uL) 193 MPV (7.0 - 9.0 fL) 11.4 H Neut % (Auto) (56.0 - 77.0 %) 75.4 Lymph % (Auto) (14.0 - 32.0 %) 7.3 L [place] % (Auto) (4.8 - 9.0 %) 11.6 H Eos % (Auto) (0.3 - 3.7 %) 2.8 Baso % (Auto) (0.0 - 2.0 %) 0.6 Neut # (Auto) (2.0 - 7.6 x10 3/uL) 7.03 Lymph # (Auto) (1.0 - 3.8 x10 3/uL) 0.68 L [place] # (Auto) (0.1 - 0.8 x10 3/uL) 1.08 H Eos # (Auto) (0.0 - 0.2 x10 3/uL) 0.26 H Baso # (Auto) (0.0 - 0.2 x10 3/uL) 0.06 Abs Immat Gran (auto) (0.00 - 0.03 0.21 H x10 3/uL) Immature Gran % (0.0 - 2.0 %) 2.3 H Nucleated RBC % (0 - 0 %) 0.0 Nucleated RBCs # (Man) (0.0 - 0.1 0.00 x10 3/uL) Radiology data: Recent Impressions: RADIOLOGY - XR CHEST 1 V 06/20 0807 Report Impression - Status: SIGNED Entered: 06/21/2023 1015 IMPRESSION: No significant change in the cardiomegaly, pulmonary edema and bilateral pleural effusions. Impression By: [email or web address] Frandy Pimentel M.D. Diagnosis, Assessment Plan Problem List/A P: 1. Edema 2. Hepatitis C 3. Cirrhosis 4. Elevated LFTs 5. Alcohol dependence 6. NSTEMI (non-ST elevated myocardial infarction) 7. CAD (coronary artery disease) 8. S/P CABG x 3 9. Shock 10. Hyponatremia 11. Acute on chronic renal failure 12. Diabetes type 2, controlled Free Text A P: PLan: PT/OT consulted. He will benefit from IRF once medically stable. He has been followed by cardiology, nephrology and cardiothoracic surgery. He has been undergoing IV Lasix, I just went on insulin given hyperglycemia with underlying diabetes type 2. Monitor volume status. PT OT to work on bed mobility, transfers, progressive gait, ADLs, balance and etc. while maintaining sternal precautions. IRF recommended. His is wanting [facility]. 06/17: Pt seen and examined. Referral has been sent off to IRF. OO daily. SOB and coughing with lying likley secondary to fluid. Edme apresent to BLE. Did discuss with him about elevating legs in between sitting EOB. 06/20: Chest x-ray shows continued pulmonary edema and bilateral pleural effusions. Patient with continued bilateral lower extremity edema. Nephrology and cardiovascular surgery/cardiology are all following. Currently on p.o. diuresis. He has been approved for inpatient rehab at [facility] and should have a bed tomorrow. Discussed with the patient and his . Consultants: cardiology, cardiovascular surgery Rehab attestation: Face to face exam completed. Treatment plan discussed with patient. at 1529 RPT #:[id number] END OF REPORT [facility] 2023-06-21 13:08:00 [facility] ([facility]) Cardiothoracic Surgery Prog REPORT#:[id number] REPORT STATUS: Signed REPORT INITIALIZATION DATE:06/21/23 TIME: 1308 PATIENT: MINDY CARTER UNIT #: [id number] ROOM/BED: [place] [address] : 54 AGE: 67 SEX: M ATTEND: Bladimir Morse DO ADM AUTHOR: Johnna Pablo Physic REPT SERVICE DT/TIME: 06/21/23 1308 * ALL edits or amendments must be made on the electronic/computer document * General Post-op: day 10 Status post: 06/11/23 CABG x 3 (COSTA-LAD, SVG-Diag, SVG-OM) EVH (RGSV) ALAA PP Subjective Chief complaint: Postop cabg Review of Systems Constitutional: Denies: fatigue. Skin: Denies: abrasion, bruising, contusion. Allergy/Immun: Denies: allergic reaction, anaphylaxis, hives. Respiratory: Denies: HERRING (dyspnea on exertion). Cardiovascular: Denies: chest pain, palpitations. Heme: Denies: adenopathy, bleeding, bruising. Endocrine: Denies: cold intolerance, heat intolerance, polydipsia. Neuro: Denies: confusion, dizziness, seizure, syncope. All systems rev neg: except as marked Objective General VS/I O Last Documented: Result Date Time Pulse Ox 93 06/20 1132 B/P 124/68 06/20 1132 B/P Mean 0.0 06/20 1132 Temp 98.1 06/20 1132 Pulse 71 06/20 1132 Resp 19 06/20 1132 O2 Delivery Room air 06/20 0810 FiO2 21 06/19 2228 O2 Flow Rate 1 06/18 1013 24 hour I O ending at 0700: 06/20 0700 06/19 1900 Intake Total 250 570 Output Total 650 580 Balance -400 -10 Intake, Oral 250 570 Number 2 Bowel Movements Output, Urine 650 580 Patient 113.1 kg Weight Weight Standing scale Measurement Method PATIENT WEIGHT: Weight (lb): 249 Weight (oz): 5.49 Weight (kg): 113.100 Physical Exam HEENT: anicteric, mucosal membranes moist, pupils reactive to light Neck: full range of motion, non-tender Cardiovascular: normal heart sounds, regular rate rhythm Respiratory: aerating well, symmetric expansion Abdomen: soft, non-tender Genitourinary: no bladder distention, no flank pain Extremities: dry, moves all Musculoskeletal: no muscle spasm Skin: dry, intact Psychiatry: normal affect, normal mood Quality: Trauma Gen Surg Advanced Care Plan 65 or Older Discussed with: patient Discussion included: living will, power of defense attorney, code status Current Medications Current medication review: I attest that the foregoing medication list in the medical record is true, accurate, and complete to the best of my knowledge. VTE Prophylaxis - General VTE prophylaxis initiated: yes Diagnosis, Assessment Plan Hospital course to date: This is a 67-year-old gentleman with a past medical history of hypertension, hyperlipidemia, diabetes, neuropathy, alcohol use, liver cirrhosis, kidney disease, syncope who came to the hospital with shortness of breath and chest tightness for 2 days. Patient describes significant orthopnea and increasing edema in bilateral lower extremities that brought the patient to the hospital. Initial workup positive for mildly elevated troponin and elevated BNP and was diagnosed with NSTEMI and CHF exacerbation with acute hypoxic respiratory failure. Patient then underwent cardiac catheterization for elevated troponin. CV surgery was consulted for multivessel coronary artery disease found on angiogram. 1. multivessel disease -Patient underwent cardiac angiogram: Left main-proximal to mid 60 to 70% stenosis LAD-ostial LAD 90% stenosis Left circumflex-patent RCA-mild 30 to 40% mid stenosis EF 55 to 60% Wall motion is normal, grade 1 diastolic dysfunction, normal systolic function. Mitral valve: Moderately calcified with leaflet thickening. Moderate stenosis. Mild regurgitation. Aortic valve: Thickening and sclerosis 2. Liver disease -Patient recently diagnosed. Patient does not live local to [place]. Will consult gastroenterology to see patient. -EtOH cessation 3. Chronic kidney disease -Patient does not live local to [place]. Will consult nephrology to see patient. Patient will be presented at complex cardiology conference on Wednesday. Further recommendations to follow. 06/04/23 Patient in stable condition Labs and imaging reviewed Case presented at complex cardiology conference this morning and the team deemed patient will be best be suited with CABG. Preop workup ongoing Timing of surgery pending Plan of care discussed with patient and family. All questions were answered. 06/05/23 Patient doing well, denies chest pain Labs reviewed Pre op workup ongoing, pending vein mapping and carotid duplex On 4l nasal cannula, wean off oxygen as tolerated Incentive spirometer teaching Cardiac diet OOB to chair, ambulate Plan of care discussed with patient, all questions were answered. 06/06/23 Patient in stable condition Denies chest pain Wean off oxygen Encourage I-S use and deep breathing Tentatively plan for CABG in the upcoming week Plan of care discussed with patient, all questions were answered. 06/07/23 Patient seen and examined, denies chest pain Labs reviewed I-S use encourage, wean off oxygen as tolerated, on 2 L nasal cannula Tolerating diet Out of bed in chair, PT OT Timing of surgery pending Plan of care discussed with the patient, all questions were answered 06/08/23 Patient in stable condition Labs reviewed On room air, encourage I-S use Preop workup completed I will tentatively schedule him for surgery on Wednesday Plan of care discussed with patient, all questions were answered 06/09/23 Patient in stable condition Labs reviewed On room air, encourage I-S use Preop workup completed I will tentatively schedule him for surgery on Wednesday Plan of care discussed with patient, all questions were answered 06/10/23 Patient is stable condition, denies chest pain On room air Preop workup completed Plan for surgery on Wednesday-CABG and possible mitral valve I have discussed with the patient the operation, risk involved, calculated STS risk score, benefits, alternatives, and complicated. Patient acknowledges understanding and is willing to proceed. 06/11/23 CABG x 3 (COSTA-LAD, SVG-Diag, SVG-OM) EVH (RGSV) ALAA PP 06/12/23 POD 1 AAO x 3 Respiratory: on 10 L NC, wean as tolerated. Encourage IS. CT in place 325/196, leave in place, monitor outputs. Cardiac: Sinus rhythm. on levo 5, epi 2, Milrinone. GI: advance diet as tolerated. continue Bowel regimen. : Marques in place. Patient walked unit with PT DC Tylenol due to liver disease Patient was seen and examined at [facility]. Plan of care discussed with multidisciplinary team 06/13/23 POD 2 AAO x 3 Respiratory: on Bipap Encourage IS. Cardiac: Sinus rhythm. Pacing wires on standby, episode of hypotension, on levo @ 6, no response to dopamine for urine output GI: advance diet as tolerated. continue Bowel regimen. : Marques in place. Low urine output, start Lasix drip, vasopressin Plan to start Lasix drip. If no improvement in renal perfusion, patient will need CRRT. Patient was seen and examined at [facility]. Plan of care discussed with multidisciplinary team Nephrology following. Appreciate input Continue supportive care, 06/14/23 POD 3 AAOx3 Respiratory: Teleflex 60% Cardiac: Sinus rhythm, pacing wires on standby, levo at 2, vaso turned off this a.m. Continues on Lasix drip Urine output 1100 Chest tube drainage Abdominal ultrasound Evaluation limited by overlying bandage. Cirrhotic liver morphology. Cholelithiasis and distended gallbladder without sonographic features of acute cholecystitis. Will obtain bedside echo. Patient was seen and examined Dr. Martel. Continue supportive care Plan of care discussed with multidisciplinary team. 06/15/23 POD 4 AAOx3 Respiratory: On 2 L nasal cannula, wean as tolerated Cardiac: Sinus rhythm, pacing wires on standby, off pressor Urine output improved on Lasix drip, continue to monitor urine output DC left chest tube. Continue PT/OT, out of bed Patient was seen and examined Dr. Martel. Continue supportive care Plan of care discussed with multidisciplinary team. 06/17/23 POD 6 AAOx3 Respiratory: On 3 L NC Cardiac: Sinus rhythm, pacing wires on standby, off pressor monitor urine output. Continue PT/OT, out of bed Patient was seen and examined Dr. Martel. Continue supportive care Plan of care discussed with multidisciplinary team. Okay to CVN 1 continue PT/OT 06/18/23 POD 6 AAOx3 Respiratory: Cardiac: Sinus rhythm, pacing wires on standby, off pressor monitor urine output. Continue PT/OT, out of bed Patient was seen and examined Dr. Martel. Continue supportive care 06/19/23 POD 7 Patient is stable condition, denies complaints Labs reviewed Wean off oxygen, on 1 L nasal cannula Encourage incentive spirometer use Discontinue pacing wires Limited echocardiogram Bilateral lower extremity Dopplers negative for DVT Tolerating diet, bowel regimen Out of bed to chair, PT/OT Discharge planning for home with family support Plan of care discussed with patient, all questions were answered 06/20/23 POD 8 Patient doing well, denies complaints Labs reviewed Echocardiogram shows EF 50 to 55%, no pericardial effusion On room air encourage incentive spirometer use Cardiac diet, bowel regimen PT/OT, ambulate Discharge planning for home Discussed plan of care with patient, all questions were answered 06/21/23 POD 9 Patient doing well, denies complaints Labs reviewed Echocardiogram shows EF 50 to 55%, no pericardial effusion On room air encourage incentive spirometer use Cardiac diet, bowel regimen PT/OT, ambulate Discharge planning for home Discussed plan of care with patient, all questions were answered Consultants: cardiology, cardiovascular surgery at 0823 at 1017 RPT #:[id number] END OF REPORT [facility] 2023-06-21 11:46:00 [facility] Gastroenterology Progress Note REPORT#:[id number] REPORT STATUS: Signed REPORT INITIALIZATION DATE:06/21/23 TIME: 1146 PATIENT: MINDY CARTER UNIT #: [id number] ROOM/BED: [place] [address] : 54 AGE: 67 SEX: M ATTEND: Bladimir Morse DO ADM AUTHOR: Farideh Harris REPT SERVICE DT/TIME: 06/21/23 1146 * ALL edits or amendments must be made on the electronic/computer document * Farideh Harris 06/21/23 1146: Subjective Patient reports: Yes: bowel movement, passing gas. No: abdominal pain, black stools, nausea, rectal bleeding, vomiting. Review of Systems Constitutional: Denies: chills, fever. Respiratory: Denies: SOB. Cardiovascular: Denies: chest pain. Neuro: Denies: headache. Objective General VS/I O: Last Documented: Result Date Time Pulse Ox 93 06/20 1132 B/P 124/68 06/20 1132 B/P Mean 0.0 06/20 1132 Temp 36.7 06/20 1132 Pulse 71 06/20 1132 Resp 19 06/20 1132 O2 Delivery Room air 06/20 0810 FiO2 21 06/19 2228 O2 Flow Rate 1 06/18 1013 24 hour I O ending at 0700: 06/20 0700 06/19 1900 Intake Total 250 570 Output Total 650 580 Balance -400 -10 Intake, Oral 250 570 Number 2 Bowel Movements Output, Urine 650 580 Patient 113.1 kg Weight Weight Standing scale Measurement Method PATIENT WEIGHT: Weight (lb): 249 Weight (oz): 5.49 Weight (kg): 113.100 Medications: Active Meds + DC'd Last 24 Hrs Potassium Chloride (POTASSIUM CHLORIDE 20MEQ TAB.ER) 40 MEQ ONCE ONE PO (DC) Furosemide (LASIX) 40 MG BID 9A 5P PO Insulin Glargine (Semglee) 30 UNIT DAILY SUBQ Atorvastatin Calcium (LIPITOR) 40 MG 2100 PO Oxycodone HCl (ROXICODONE) 5 MG Q4H PRN PRN PO Oxycodone HCl (ROXICODONE) 10 MG Q4H PRN PRN PO Insulin Human Lispro (HUMALOG) 0 AC HS SUBQ Fentanyl Citrate (SUBLIMAZE) 100 MCG PACU Q10MIN PRN PRN IV Fentanyl Citrate (SUBLIMAZE) 50 MCG PACU Q10MIN PRN PRN IV Hydralazine HCl (APRESOLINE) 5 MG PACU Q10MIN PRN PRN IV Hydrocodone Bitart/Acetaminophen (NORCO 5/325) 1 TAB PACU ONCE PO (CKD) Insulin Human Lispro (HUMALOG) 0 PACU ONCE PRN SUBQ Labetalol HCl (labetalol) 5 MG PACU Q10MIN PRN PRN IV Meperidine HCl (MEPERIDINE HCL/PF) 12.5 MG PACU ONCE PRN IV Morphine Sulfate (morphine SULFATE) 2 MG PACU Q10MIN PRN PRN IV Ondansetron HCl (ZOFRAN) 4 MG PACU ONCE PRN IV Ropivacaine (NAROPIN 0.5% 150 MG/30mL) 150 MG ASDIR PRN LOCAL Tramadol HCl (ULTRAM) 50 MG PACU ONCE PO (CKD) Insulin Glargine (Semglee) 40 UNIT BEDTIME SUBQ Ipratropium [place] (ATROVENT) 500 MCG RTQ2H PRN PRN INH Cyanocobalamin (Vitamin B-12 500 mcg tab) 500 MCG DAILY PO Ferrous Sulfate (FERROUS SULFATE) 325 MG DAILY PO Bisacodyl (DULCOLAX) 10 MG ONCE PRN RECTAL Magnesium Hydroxide (MILK OF MAGNESIA) 30 ML ONCE PRN PO Vasopressin (VASOSTRICT 20 Unit/NS 100ML) 100 ML ASDIR IV (CKD) Dopamine HCl/Dextrose (DOPamine 400MG/D5W 250ML) 250 ML ASDIR IV Epinephrine (ADRENALIN CHLORIDE) 4 MG ASDIR IV Sodium Chloride (SODIUM CHLORIDE 0.9%) 246 ML Melatonin (Melatonin) 6 MG BEDTIME PRN PO Clopidogrel Bisulfate (Plavix) 75 MG DAILY PO Polyethylene Glycol (MIRALAX) 17 GM DAILY PO Pantoprazole (PROTONIX) 40 MG DAILY@0600 PO Milrinone Lactate/Dextrose (MILRINONE 20MG/D5W 100ML) 100 ML TITRATE IV (CKD) Aspirin (ASPIRIN) 81 MG DAILY PO Amiodarone HCl (CORDARONE) 200 MG TID PO Docusate Sodium (COLACE) 100 MG BID PO Metoprolol Tartrate (LOPRESSOR) 12.5 MG Q12HR PO Sennosides (Senna Lax 8.6 MG TABLET) 17.2 MG BEDTIME PO Calcium Chloride (CALCIUM CHLORIDE) 1 GM ASDIR PRN IV Dextrose/Water (DEXTROSE 10% IN WATER) 125 ML ASDIR PRN IV (CKD) Dextrose/Water (DEXTROSE 10% IN WATER) 250 ML ASDIR PRN IV (CKD) Insulin Human Regular (HumuLIN R) 100 UNIT ASDIR IV (CKD) Sodium Chloride (SODIUM CHLORIDE 0.9%) 99 ML Magnesium Sulfate (MAGNESIUM SULFATE 4GM/SWFI 100ML) 100 ML ASDIR PRN IV Magnesium Sulfate (MAGNESIUM SULFATE 2GM/SWFI 50ML) 50 ML ASDIR PRN IV Magnesium Sulfate/Dextrose (MAGNESIUM SULFATE 1GM/D5W 100ML) 100 ML ASDIR PRN IV Nitroglycerin/Dextrose (NITROGLYCERIN 50,000MCG/D5W 250ML) 250 ML ASDIR IV Norepinephrine Bitartrate (NOREPINEPHRINE 8 MG/NS 250 ML) 250 ML TITRATE IV Ondansetron HCl (ZOFRAN) 4 MG Q6H PRN PRN IV Potassium Chloride (KCL 20MEQ/SWFI 100ML) 100 ML ASDIR PRN IV Sodium Bicarbonate (SODIUM BICARBONATE) 50 MEQ ASDIR PRN IV Sodium Chloride (SODIUM CHLORIDE 0.9%) 1,000 ML .Q20H IV Sodium Chloride (SODIUM CHLORIDE 0.9%) 250 ML Q24H IV Lactulose (LACTULOSE) 10 GM DAILY PRN PRN PO Thiamine HCl (THIAMINE HCL) 100 MG DAILY PO Dietitian nutrition assessment The data set between the solid lines has been imported from the dietitian's assessment. BMI Calculated: 36.7 Nutrition related diagnosis: Nutrition diagnosis details: Nutrition problem: Increased nutrient needs Nutrition etiology: Acute illness Nutrition signs and symptoms: CARDIAC POST-OP Nutrition prescription: 1. CARDIAC CCD5 DIET. 2. GLUCERNA 4 PER DAY. 3. HEALTHY HEART CARBOHYDRATE CONTROLLED EDUCATION/HANDOUTS PROVIDED. Dietitian name: Annia Jeffery, DIET Assessment completed: 06/17/23 Physical Exam General appearance: alert, awake, oriented HEENT: atraumatic, normocephalic Neck: full range of motion Cardiovascular: normal S1/S2, regular rate rhythm Respiratory: symmetric expansion, no distress Abdomen: non-tender, normal bowel sounds, soft, no guarding Extremities: moves all Musculoskeletal: normal inspection Neuro/BUSINESS AREA MANAGER: alert, normal speech Skin: dry, intact, normal color Psychiatry: normal affect, normal judgment/insight, normal mood Results Findings/Data: Laboratory Tests 06/21/23 0320: [Embedded Image Not Available] Laboratory Tests 06/20 06/20 06/20 06/19 06/19 1134 0710 0320 1934 1633 Chemistry Sodium (134 - 147 mEq/L) 136 Potassium (3.4 - 5.0 mEq/L) 3.3 L Chloride (100 - 108 mEq/L) 96 L Carbon Dioxide (21 - 33 mEq/l) 34 H Anion Gap (0 - 20) 9 BUN (7 - 25 mg/dL) 60 H Creatinine (0.6 - 1.3 mg/dL) 1.4 H Glomerular Filtr Rate (80 - 90) 54.8 L Glucose (77 - 141 mg/dL) 137 POC Glucose (70 - 110 MG/DL) 215 H 145 H 208 H 198 H Calcium (8.0 - 10.5 mg/dL) 7.6 L Magnesium (1.6 - 2.6 mg/dL) 2.51 Laboratory Tests 06/20 0320 Hematology WBC (4.5 - 11.0 x10 3/uL) 9.3 RBC (4.00 - 5.60 x10 6/uL) 3.29 L Hgb (12.5 - 16.9 g/dL) 9.8 L Hct (37.5 - 50.7 %) 30.8 L MCV (81.0 - 99.0 fL) 93.6 MCH (27.0 - 33.0 pg) 29.8 MCHC (33.0 - 37.0 g/dL) 31.8 L RDW (11.5 - 14.5 %) 14.8 H Plt Count (150 - 400 x10 3/uL) 193 MPV (7.0 - 9.0 fL) 11.4 H Neut % (Auto) (56.0 - 77.0 %) 75.4 Lymph % (Auto) (14.0 - 32.0 %) 7.3 L [place] % (Auto) (4.8 - 9.0 %) 11.6 H Eos % (Auto) (0.3 - 3.7 %) 2.8 Baso % (Auto) (0.0 - 2.0 %) 0.6 Neut # (Auto) (2.0 - 7.6 x10 3/uL) 7.03 Lymph # (Auto) (1.0 - 3.8 x10 3/uL) 0.68 L [place] # (Auto) (0.1 - 0.8 x10 3/uL) 1.08 H Eos # (Auto) (0.0 - 0.2 x10 3/uL) 0.26 H Baso # (Auto) (0.0 - 0.2 x10 3/uL) 0.06 Abs Immat Gran (auto) (0.00 - 0.03 x10 3/uL) 0.21 H Immature Gran % (0.0 - 2.0 %) 2.3 H Nucleated RBC % (0 - 0 %) 0.0 Nucleated RBCs # (Man) (0.0 - 0.1 x10 3/uL) 0.00 Radiology Data: Recent Impressions: RADIOLOGY - XR CHEST 1 V 06/20 0807 Report Impression - Status: SIGNED Entered: 06/21/2023 1015 IMPRESSION: No significant change in the cardiomegaly, pulmonary edema and bilateral pleural effusions. Impression By: [email or web address] - Elio Pimentel M.D. Results: labs reviewed, vital signs reviewed, x-ray personally reviewed Diagnosis, Assessment Plan Problem List/A P: 1. Cirrhosis 2. Hepatitis C 3. Elevated LFTs 4. Alcohol dependence 5. CHF exacerbation Free Text A P: (06/03/2023) MELD score of 7, estimated 3-month mortality of 1.9% S/p CABG x 3, EVH, ALAA, PP, No acute complaints. Recent BM. at bedside. Recommendations: 1. Monitor LFTs; avoid further hepatotoxic medications; improving 2. INR 1.1 3. Abdominal ultrasound revealed cirrhosis with splenomegaly, cholelithiasis, and nonspecific gallbladder wall thickening likely secondary to chronic liver disease as patient does not express abdominal pain at this time- repeat us shows similar findings 4. History of hepatitis C, PCR - not detected 5. Daily alcohol use, cont. MVI and thiamine; encouraged cessation 6. Agree with current bowel regimen 7. Further recommendations may follow Consultants: cardiology, cardiovascular surgery Rigoberto Jarrell 06/21/231954: Attestations Physician Attestation Agree w/findings plan: Agree with the findings and plan as documented by RAHUL Tobias. at 1421 at 1956 RPT #:[id number] END OF REPORT [facility] 2023-06-21 06:54:00 [id number] DORIS Houst on [address] [address] PATIENT NAME: MINDY CARTER ADMIT DATE: 05/31/23 ACCOUNT NO: [id number] [place] [facility] [place]GE[place] 67 REPORT TYPE: eECHOCARDIOGRAM REPORT SEX: M ADMITTING PHYSICIAN:Talat Lord MD ATTENDING PHYSICIAN:Kumar Garcia MD *[address] [address] Limited Transthoracic Echocardiogram Patient: Mindy Carter Study Date: 06/20/2023 BP: 153 / 65 URN: [id number] Location: : 1955 Age: 67 Gender: M Height: 69 in / 175.3 cm Weight: 248 lb / 112.5 kg BMI/BSA: 36.6 kg/m 2 / 2.38 m 2 *Ordering Physician: * Jeremiah Martel MD *Interpreting Physician: * Clayton Nathan MD *Continuing Education Specialist: * Leslie Heredia Indications: SP PACER WIRES REMOVAL. Study data: Transthoracic echocardiogram, limited study. Procedure: A transthoracic echocardiogram was performed. Images were obtained using a [employer] cardiac ultrasound machine. Image quality was fair. Limited 2D and limited spectral Doppler. Location: Bedside. Patient status: Inpatient. Patient room number: 3359. Study status: Routine. Heart rate: 74 bpm. Findings Left ventricle: Systolic function is normal. The estimated ejection fraction is 65-69%. Right ventricle: Systolic function is moderately reduced. Pericardium: A small pericardial effusion is identified along the right PATIENT NAME: MINDY CARTER ventricular free wall. Systemic veins: Inferior vena cava: The IVC is dilated. Measurements Right ventricle Value Ref 06/14/2023 TAPSE, MM 1.2 cm >=1.7 1.0 Conclusions Summary: 1. Left ventricle: Systolic function is normal. The estimated ejection fraction is 65-69%. 2. Right ventricle: Systolic function is moderately reduced. 3. Pericardium, extracardiac: A small pericardial effusion is identified along the right ventricular free wall. 4. Inferior vena cava: The IVC is dilated. Electronically signed by Clayton Nathan MD 06/21/2023 06:54 at 0654 PATIENT NAME: MINDY CARTER [facility] 2023-06-20 17:22:00 [facility] REPORT#:[id number] REPORT STATUS: Signed REPORT INITIALIZATION DATE:06/20/23 TIME: 1721 PATIENT: MINDY CARTER UNIT #: [id number] ROOM/BED: [place] [address] : 54 AGE: 67 SEX: M ATTEND: Kumar Garcia MD ADM AUTHOR: Kumar Garcia MD REPT SERVICE DT/TIME: 06/20/23 1722 * ALL edits or amendments must be made on the electronic/computer document * Subjective Chief complaint: no new complaints. HPI: This is a 67-year-old male with history of high blood pressure, hyperlipidemia, diabetes mellitus, syncope, neuropathy, alcohol use, liver cirrhosis, stage II CKD presents with shortness of breath that has been increasing since 2 days ago. Patient took extra dose of Aldactone and hydrochlorothiazide which did not help. Patient also reports chest tightness and is currently on 5 L of oxygen per nasal cannula. Patient says that he cannot lie down he gets short of breath when he lies down. He drinks whiskey about 3 shots a day. He has been having increasing edema in bilateral lower extremities. No headaches or dizziness. No other complaints elicited. Objective General VS/I O: Vital Signs: Date Time Temp Pulse Resp B/P B/P Pulse O2 O2 Flow FiO2 Mean Ox Delivery Rate 06/19 1639 98.1 74 20 153/65 0.0 94 Room air 06/19 1501 98 Room air 06/19 1209 97.9 68 20 115/64 0.0 96 Room air 06/19 1146 96 Room air 06/19 0857 94 Room air 06/19 0517 97.9 69 14 114/54 0.0 91 Room air 06/19 0047 97.5 68 14 121/61 0.0 93 Room air 06/18 2121 94 Room air 06/18 1934 98.2 78 14 156/72 0.0 92 Room air 06/18 1800 78 24 hour I O ending at 0700: 06/19 0700 06/18 1900 Intake Total 500 675 Output Total 1100 1950 Balance -600 -1275 Intake, Oral 500 675 Number 1 0 Bowel Movements Output, Urine 1100 1950 Patient 112.7 kg 113.3 kg Weight Weight Standing scale Standing scale Measurement Method PATIENT WEIGHT: Weight (lb): 248 Weight (oz): 7.38 Weight (kg): 112.700 Physical Exam General appearance: alert, awake, oriented Head/Eyes: clear cornea, EOMI, normal conjunctiva/sclera ENT: moist mucosal membranes Neck: normal thyroid, no JVD Cardiovascular: normal heart sounds, regular rate rhythm, no gallop, no murmur , no rub Respiratory: hypoxia, on oxygen Abdomen: non-tender, normal bowel sounds, soft Extremities: 3+ PRETIBIAL EDEMA Musculoskeletal: normal inspection Neuro/BUSINESS AREA MANAGER: alert, oriented X 3, normal speech, no motor deficits, no sensory deficits Skin: dry, intact, no rash Psychiatry: normal affect Results Findings/Data: Laboratory Tests 06/19 06/19 06/18 1206 0340 2025 Chemistry Sodium (134 - 147 mEq/L) 134 Potassium (3.4 - 5.0 mEq/L) 3.6 Chloride (100 - 108 mEq/L) 96 L Carbon Dioxide (21 - 33 mEq/l) 31 Anion Gap (0 - 20) 11 BUN (7 - 25 mg/dL) 65 H Creatinine (0.6 - 1.3 mg/dL) 1.6 H Glomerular Filtr Rate (80 - 90) 46.6 L Glucose (77 - 141 mg/dL) 183 H POC Glucose (70 - 110 MG/DL) 218 H 251 H Calcium (8.0 - 10.5 mg/dL) 8.0 Magnesium (1.6 - 2.6 mg/dL) 2.42 Laboratory Tests 06/19 0340 Hematology WBC (4.5 - 11.0 x10 3/uL) 11.4 H RBC (4.00 - 5.60 x10 6/uL) 3.28 L Hgb (12.5 - 16.9 g/dL) 9.8 L Hct (37.5 - 50.7 %) 30.7 L MCV (81.0 - 99.0 fL) 93.6 MCH (27.0 - 33.0 pg) 29.9 MCHC (33.0 - 37.0 g/dL) 31.9 L RDW (11.5 - 14.5 %) 14.5 Plt Count (150 - 400 x10 3/uL) 211 MPV (7.0 - 9.0 fL) 11.3 H Neut % (Auto) (56.0 - 77.0 %) 77.7 H Lymph % (Auto) (14.0 - 32.0 %) 6.2 L [place] % (Auto) (4.8 - 9.0 %) 10.6 H Eos % (Auto) (0.3 - 3.7 %) 2.0 Baso % (Auto) (0.0 - 2.0 %) 0.4 Neut # (Auto) (2.0 - 7.6 x10 3/uL) 8.83 H Lymph # (Auto) (1.0 - 3.8 x10 3/uL) 0.70 L [place] # (Auto) (0.1 - 0.8 x10 3/uL) 1.21 H Eos # (Auto) (0.0 - 0.2 x10 3/uL) 0.23 H Baso # (Auto) (0.0 - 0.2 x10 3/uL) 0.05 Abs Immat Gran (auto) (0.00 - 0.03 x10 3/uL) 0.35 H Immature Gran % (0.0 - 2.0 %) 3.1 H Nucleated RBC % (0 - 0 %) 0.0 Nucleated RBCs # (Man) (0.0 - 0.1 x10 3/uL) 0.00 Radiology data: Recent Impressions: RADIOLOGY - XR CHEST 1 V 06/19 0756 Report Impression - Status: SIGNED Entered: 06/20/2023 0840 IMPRESSION: No significant change in mild pulmonary edema changes with small bilateral effusions. Superimposed infectious process should be excluded on coronal bases. LOCATION: C3 Impression By: Pallavi - Jessenia Mireles M.D. Diagnosis, Assessment Plan Consultants: cardiology, cardiovascular surgery Free Text DxA P Notes Free text DxA P notes: VOLUME OL WITH Shortness of breath/hypoxia/3+ LEG EDEMA - CONT LASIX GTT, UF BY HD On 8 L oxygen via nasal cannula Fluid overload on chest x-ray On Lasix drip ICC on board Acute on chronic diastolic congestive heart failure - STABLE, CONT UF - Cardiology consulted - Echo: EF 55 to 60% S/p CABG on 06/10 Milrinone drip DC'd On Lasix drip 06/12 On BiPAP now off BiPAP 06/13 On 8 L oxygen via nasal cannula 06/13 Multivessel CAD, S/P CABG X3, ALAA - STABLE, CTS/ICC SEEN S/p CABG on 06/10 On aspirin, Plavix, amiodarone - no statin for abnormal LFTs/cirrhosis On milrinone drip DC'd Chest tube in place DC'd Cardiology, CT surgery, ICC on board Hypotension - ECHO EF 50-55% BP dropped to 80s over 50s overnight 06/11 On Levophed and vasopressin off pressors ICC, CT surgery on board NIYA ON CRF - CONT DIURESIS, RENAL SEEN Metolazone x 1 given 06/12 On Lasix drip, if urinary output does not improve, may require CRRT 06/12 Nephrology on board Renal function improving Pleural effusion DUE TO VOLUME OL - STABLE On Lasix drip Abnormal LFTs: -cholelithiasis with distended GB, no acute cholecystitis on US - Monitor - GI on board Diabetes mellitus II - STABLE HGBA1c 8.4% Insulin drip, transition to Sliding scale insulin as needed, long acting insulin as per [facility] Hypertension Renew medications once they have been updated in the computer Now on pressors for hypotension DEBILITY - REHAB SEEN, MAY NEED IRF Patient does not have a living will or medical power of defense attorney Patient is a full code 06/01 multivessel disease on cath, CTS consulted, patient undergoing preop evaluation for possible CABG. 06/02- pt continues cabg eval, conf Fri, nephro/GI consulted per cts, renal indices wnls today, Abd us confirmed cirrhosis with splenomegaly. 06/03 patient continues preop evaluation for CABG, IV Lasix transition to oral 06/04 CABG preop planning 06/05- CABG planning 06/06 ongoing CABG planning per CTS, blood sugars noted to be elevated in 240s to 300s. Will start on basal insulin 7 units for now daily, continue meal correctional insulin. Patient on glipizide and metformin at home holding for now given CABG eval and and pending surgical date. 06/07- pending CABG eval, d/w Cardiology and started patient on IV lasix 40 mg BID due to increasing wt, symptoms of dyspnea. Monitor I'O's. 06/08- poorly controlled blood sugars noted, increased basal insulin to 10 units daily, add meal time insulin AC, wt based compared to SSI admin, started on 4 Units reg insulin AC. Monitor I/O, contiued on IV lasix 40 mg BID, wt 110 kg today (dry wt reported to be 105 kg). 06/09- optimize insulin for improved glucose control, pending cabg tomorrow 06/10- pending cabg 06/19 - doing well. Ok to d/c home tomorrow if ok with all. Echo read pending. Disposition: S/p CABG on 06/11/2023. Chest tubes removed, on 8 L oxygen via nasal cannula, off pressors, fluid overload on chest x-ray, on Lasix drip, on insulin drip, kidney function improving. Working with PT/OT. Multiple specialty services on board. Continue CVICU care. Quality: Gen Med Crit Care VTE Prophylaxis VTE prophylaxis initiated: yes Current Medications Current medication review: I attest that the foregoing medication list in the medical record is true, accurate, and complete to the best of my knowledge. Advanced Care Plan 65 or Older Discussed with: patient Discussion included: living will, power of defense attorney, code status at 1724 RPT #:[id number] END OF REPORT [facility] 2023-06-20 15:01:00 [facility] Nephrology Progress Note REPORT#:[id number] REPORT STATUS: Signed REPORT INITIALIZATION DATE:06/20/23 TIME: 1501 PATIENT: MINDY CARTER UNIT #: [id number] ROOM/BED: [place] [address] : 54 AGE: 67 SEX: M ATTEND: Bladimir Morse DO ADM AUTHOR: Nkechi Bacon MD REPT SERVICE DT/TIME: 06/20/23 1501 * ALL edits or amendments must be made on the electronic/computer document * Subjective Chief complaint: SOB, CP HPI: 67-year-old male known to have hypertension, diabetes mellitus, hyperlipidemia, liver cirrhosis, chronic kidney disease who presented with shortness of breath and chest tightness and on further workup was found to have multivessel disease therefore he was being worked up for possible CABG. He said he had been diagnosed recently with chronic kidney disease but did not have any nausea, orthopnea, cramping, change of taste, involuntary movements, urinary complaints. He denied any chronic use of NSAIDs. He said for most part his blood pressures were controlled at home. 06/19 Patient denying all systemic review.Feeling well. Objective General VS/I O: Vital Signs: Date Time Temp Pulse Resp B/P B/P Pulse O2 O2 Flow FiO2 Mean Ox Delivery Rate 06/20 1501 70 16 90 06/20 1500 71 17 95 06/20 1400 109 28 94 06/20 1300 74 31 95 06/20 1200 72 26 94 06/20 1132 36.7 71 19 124/68 0.0 93 06/20 1130 72 23 124/68 91 93 06/20 1110 73 30 94 06/20 1100 72 30 93 06/20 1000 71 17 91 06/20 0900 75 22 91 06/20 0810 94 Room air 06/20 0800 79 20 93 06/20 0709 36.6 74 20 125/65 0.0 92 06/20 0708 74 20 125/65 89 92 06/20 0700 73 20 92 06/20 0403 36.6 71 13 129/62 0.0 93 Room air 06/19 2353 36.6 73 13 121/61 0.0 95 Room air 06/19 2228 94 Room air 21 06/19 1808 36.7 76 13 133/63 0.0 96 Room air 06/19 1639 36.7 74 20 153/65 0.0 94 Room air 24 hour I O ending at 0700: 06/20 0700 06/19 1900 Intake Total 250 570 Output Total 650 580 Balance -400 -10 Intake, Oral 250 570 Number 2 Bowel Movements Output, Urine 650 580 Patient 113.1 kg Weight Weight Standing scale Measurement Method PATIENT WEIGHT: Weight (lb): 249 Weight (oz): 5.49 Weight (kg): 113.100 Physical Exam General appearance: alert, awake, oriented Head/eyes: atraumatic, EOMI ENT: moist mucous membranes, normal nose Neck: no JVD, no lymphadenopathy Cardiovascular: normal heart sounds, regular rate and rhythm Respiratory: aerating well, clear to auscultation Abdomen: non-tender, soft Genitourinary: no bladder distention, no flank pain Extremities: no edema, no gangrene, no swelling Diagnosis, Assessment Plan Free Text A P: 67-year-old male known to have hypertension, diabetes mellitus, hyperlipidemia, liver cirrhosis, chronic kidney disease who presented with shortness of breath and chest tightness and on further workup was found to have multivessel disease therefore he was being worked up for possible CABG. He said he had been diagnosed recently with chronic kidney disease but did not have any nausea, orthopnea, cramping, change of taste, involuntary movements, urinary complaints. He denied any chronic use of NSAIDs. He said for most part his blood pressures were controlled at home. Nephrology following for: 1. CKD:: Most recent creatinine was staying in normal range therefore plan is to keep mean arterial pressure above 65 and avoid nephrotoxic agents. 2. Hypertension: Mostly controlled therefore plan is to continue same. 3. Hypervolemia: Plan is to monitor input and output closely and treat with Lasix if needed. His echocardiogram showed an EF of 55 to 60%. 4. Chest pain/shortness of breath: He had been worked up with left heart cath and received contrast recently. Plan was to monitor closely for contrast- induced nephropathy and keep hydrated. 06/19 1. NIYA on CKD: Most likely cardiorenal.Kidney function stable . 2. Hypotension:He is post op CABG and is requiring pressor support, plan to monitor and keep MAP>65. Resolved 3. Hypervolemia: . Improved.He has been started on PO lasix. 4. Chest pain/shortness of breath: s/p CABG 06/10. 5/Hypokalemia:Plan to replace PRN. 6/Patient okay to go home from nephrology standpoint. Consultants: cardiology, cardiovascular surgery at 1607 RPT #:[id number] END OF REPORT [facility] 2023-06-20 11:48:00 [facility] Cardiothoracic Surgery Prog REPORT#:[id number] REPORT STATUS: Signed REPORT INITIALIZATION DATE:06/20/23 TIME: 1147 PATIENT: MINDY CARTER UNIT #: [id number] ROOM/BED: [place] [address] : 54 AGE: 67 SEX: M ATTEND: Bladimir Morse DO ADM AUTHOR: Nathaniel Martel MD REPT SERVICE DT/TIME: 06/20/23 1148 * ALL edits or amendments must be made on the electronic/computer document * General Post-op: day 9 Status post: 06/11/23 CABG x 3 (COSTA-LAD, SVG-Diag, SVG-OM) EVH (RGSV) MATHIEU PP Subjective Chief complaint: Postop cabg Review of Systems Constitutional: Denies: fatigue. Skin: Denies: abrasion, bruising, contusion. Allergy/Immun: Denies: allergic reaction, anaphylaxis, hives. Respiratory: Denies: HERRING (dyspnea on exertion). Cardiovascular: Denies: chest pain, palpitations. Heme: Denies: adenopathy, bleeding, bruising. Endocrine: Denies: cold intolerance, heat intolerance, polydipsia. Neuro: Denies: confusion, dizziness, seizure, syncope. All systems rev neg: except as marked Objective General VS/I O Last Documented: Result Date Time Pulse Ox 94 06/19 0857 FiO2 21 06/19 0857 O2 Delivery Room air 06/19 0857 B/P 114/54 06/19 0517 B/P Mean 0.0 06/19 0517 Temp 36.6 06/19 0517 Pulse 69 06/19 0517 Resp 14 06/19 0517 O2 Flow Rate 1 06/18 1013 24 hour I O ending at 0700: 06/19 0700 06/18 1900 Intake Total 500 675 Output Total 1100 1950 Balance -600 -1275 Intake, Oral 500 675 Number 1 0 Bowel Movements Output, Urine 1100 1950 Patient 112.7 kg 113.3 kg Weight Weight Standing scale Standing scale Measurement Method PATIENT WEIGHT: Weight (lb): 248 Weight (oz): 7.38 Weight (kg): 112.700 Dietitian Nutrition assessment The data set between the solid lines has been imported from the dietitian's assessment. BMI Calculated: 36.7 Nutrition related diagnosis: Nutrition diagnosis details: Nutrition problem: Increased nutrient needs Nutrition etiology: Acute illness Nutrition signs and symptoms: CARDIAC POST-OP Nutrition prescription: 1. CARDIAC CCD5 DIET. 2. GLUCERNA 4 PER DAY. 3. HEALTHY HEART CARBOHYDRATE CONTROLLED EDUCATION/HANDOUTS PROVIDED. Dietitian name: Annia Jeffery, DIET Assessment completed: 06/17/23 Physical Exam General appearance: alert, awake, oriented HEENT: anicteric, mucosal membranes moist, pupils reactive to light Neck: full range of motion, non-tender Cardiovascular: normal heart sounds, regular rate rhythm Respiratory: aerating well, symmetric expansion Abdomen: soft, non-tender Genitourinary: no bladder distention, no flank pain Extremities: dry, moves all Musculoskeletal: no muscle spasm Skin: dry, intact Psychiatry: normal affect, normal mood Current Medications Medications: Active Meds + DC'd Last 24 Hrs Potassium Chloride (POTASSIUM CHLORIDE 20MEQ TAB.ER) 20 MEQ ONCE ONE PO (DC) Furosemide (LASIX) 40 MG BID 9A 5P PO Insulin Glargine (Semglee) 30 UNIT DAILY SUBQ Atorvastatin Calcium (LIPITOR) 40 MG 2100 PO Oxycodone HCl (ROXICODONE) 5 MG Q4H PRN PRN PO Oxycodone HCl (ROXICODONE) 10 MG Q4H PRN PRN PO Insulin Human Lispro (HUMALOG) 0 AC HS SUBQ Fentanyl Citrate (SUBLIMAZE) 100 MCG PACU Q10MIN PRN PRN IV Fentanyl Citrate (SUBLIMAZE) 50 MCG PACU Q10MIN PRN PRN IV Hydralazine HCl (APRESOLINE) 5 MG PACU Q10MIN PRN PRN IV Hydrocodone Bitart/Acetaminophen (NORCO 5/325) 1 TAB PACU ONCE PO (CKD) Hydromorphone HCl (DILAUDID) 1 MG PACU Q10MIN PRN PRN IV (DC) Hydromorphone HCl (DILAUDID) 0.5 MG PACU Q5MIN PRN PRN IV (DC) Insulin Human Lispro (HUMALOG) 0 PACU ONCE PRN SUBQ Labetalol HCl (labetalol) 5 MG PACU Q10MIN PRN PRN IV Meperidine HCl (MEPERIDINE HCL/PF) 12.5 MG PACU ONCE PRN IV Morphine Sulfate (morphine SULFATE) 2 MG PACU Q10MIN PRN PRN IV Ondansetron HCl (ZOFRAN) 4 MG PACU ONCE PRN IV Ropivacaine (NAROPIN 0.5% 150 MG/30mL) 150 MG ASDIR PRN LOCAL Tramadol HCl (ULTRAM) 50 MG PACU ONCE PO (CKD) Insulin Glargine (Semglee) 40 UNIT BEDTIME SUBQ Ipratropium [place] (ATROVENT) 500 MCG RTQ2H PRN PRN INH Cyanocobalamin (Vitamin B-12 500 mcg tab) 500 MCG DAILY PO Ferrous Sulfate (FERROUS SULFATE) 325 MG DAILY PO Bisacodyl (DULCOLAX) 10 MG ONCE PRN RECTAL Magnesium Hydroxide (MILK OF MAGNESIA) 30 ML ONCE PRN PO Vasopressin (VASOSTRICT 20 Unit/NS 100ML) 100 ML ASDIR IV (CKD) Dopamine HCl/Dextrose (DOPamine 400MG/D5W 250ML) 250 ML ASDIR IV Epinephrine (ADRENALIN CHLORIDE) 4 MG ASDIR IV Sodium Chloride (SODIUM CHLORIDE 0.9%) 246 ML Melatonin (Melatonin) 6 MG BEDTIME PRN PO Clopidogrel Bisulfate (Plavix) 75 MG DAILY PO Polyethylene Glycol (MIRALAX) 17 GM DAILY PO Pantoprazole (PROTONIX) 40 MG DAILY@0600 PO Milrinone Lactate/Dextrose (MILRINONE 20MG/D5W 100ML) 100 ML TITRATE IV (CKD) Aspirin (ASPIRIN) 81 MG DAILY PO Amiodarone HCl (CORDARONE) 200 MG TID PO Docusate Sodium (COLACE) 100 MG BID PO Metoprolol Tartrate (LOPRESSOR) 12.5 MG Q12HR PO Sennosides (Senna Lax 8.6 MG TABLET) 17.2 MG BEDTIME PO Calcium Chloride (CALCIUM CHLORIDE) 1 GM ASDIR PRN IV Dextrose/Water (DEXTROSE 10% IN WATER) 125 ML ASDIR PRN IV (CKD) Dextrose/Water (DEXTROSE 10% IN WATER) 250 ML ASDIR PRN IV (CKD) Insulin Human Regular (HumuLIN R) 100 UNIT ASDIR IV (CKD) Sodium Chloride (SODIUM CHLORIDE 0.9%) 99 ML Magnesium Sulfate (MAGNESIUM SULFATE 4GM/SWFI 100ML) 100 ML ASDIR PRN IV Magnesium Sulfate (MAGNESIUM SULFATE 2GM/SWFI 50ML) 50 ML ASDIR PRN IV Magnesium Sulfate/Dextrose (MAGNESIUM SULFATE 1GM/D5W 100ML) 100 ML ASDIR PRN IV Nitroglycerin/Dextrose (NITROGLYCERIN 50,000MCG/D5W 250ML) 250 ML ASDIR IV Norepinephrine Bitartrate (NOREPINEPHRINE 8 MG/NS 250 ML) 250 ML TITRATE IV Ondansetron HCl (ZOFRAN) 4 MG Q6H PRN PRN IV Potassium Chloride (KCL 20MEQ/SWFI 100ML) 100 ML ASDIR PRN IV Sodium Bicarbonate (SODIUM BICARBONATE) 50 MEQ ASDIR PRN IV Sodium Chloride (SODIUM CHLORIDE 0.9%) 1,000 ML .Q20H IV Sodium Chloride (SODIUM CHLORIDE 0.9%) 250 ML Q24H IV Lactulose (LACTULOSE) 10 GM DAILY PRN PRN PO Thiamine HCl (THIAMINE HCL) 100 MG DAILY PO Results Findings/Data: Laboratory Tests 06/19 06/18 06/18 06/18 0340 2026 1716 1217 Chemistry Sodium (134 - 147 mEq/L) 134 Potassium (3.4 - 5.0 mEq/L) 3.6 Chloride (100 - 108 mEq/L) 96 L Carbon Dioxide (21 - 33 mEq/l) 31 Anion Gap (0 - 20) 11 BUN (7 - 25 mg/dL) 65 H Creatinine (0.6 - 1.3 mg/dL) 1.6 H Glomerular Filtr Rate (80 - 90) 46.6 L Glucose (77 - 141 mg/dL) 183 H POC Glucose (70 - 110 MG/DL) 251 H 132 H 160 H Calcium (8.0 - 10.5 mg/dL) 8.0 Magnesium (1.6 - 2.6 mg/dL) 2.42 Laboratory Tests 06/19 0340 Hematology WBC (4.5 - 11.0 x10 3/uL) 11.4 H RBC (4.00 - 5.60 x10 6/uL) 3.28 L Hgb (12.5 - 16.9 g/dL) 9.8 L Hct (37.5 - 50.7 %) 30.7 L MCV (81.0 - 99.0 fL) 93.6 MCH (27.0 - 33.0 pg) 29.9 MCHC (33.0 - 37.0 g/dL) 31.9 L RDW (11.5 - 14.5 %) 14.5 Plt Count (150 - 400 x10 3/uL) 211 MPV (7.0 - 9.0 fL) 11.3 H Neut % (Auto) (56.0 - 77.0 %) 77.7 H Lymph % (Auto) (14.0 - 32.0 %) 6.2 L [place] % (Auto) (4.8 - 9.0 %) 10.6 H Eos % (Auto) (0.3 - 3.7 %) 2.0 Baso % (Auto) (0.0 - 2.0 %) 0.4 Neut # (Auto) (2.0 - 7.6 x10 3/uL) 8.83 H Lymph # (Auto) (1.0 - 3.8 x10 3/uL) 0.70 L [place] # (Auto) (0.1 - 0.8 x10 3/uL) 1.21 H Eos # (Auto) (0.0 - 0.2 x10 3/uL) 0.23 H Baso # (Auto) (0.0 - 0.2 x10 3/uL) 0.05 Abs Immat Gran (auto) (0.00 - 0.03 x10 3/uL) 0.35 H Immature Gran % (0.0 - 2.0 %) 3.1 H Nucleated RBC % (0 - 0 %) 0.0 Nucleated RBCs # (Man) (0.0 - 0.1 x10 3/uL) 0.00 Radiology data: Recent Impressions: RADIOLOGY - XR CHEST 1 V 06/19 0744 Report Impression - Status: SIGNED Entered: 06/20/2023 0840 IMPRESSION: No significant change in mild pulmonary edema changes with small bilateral effusions. Superimposed infectious process should be excluded on coronal bases. LOCATION: C3 Impression By: Pallavi - Jessenia Mireles M.D. Results: labs reviewed, vital signs stable, franklin personally rev'd, current med profile rev'd Quality: Trauma Gen Surg Advanced Care Plan 65 or Older Discussed with: patient Discussion included: living will, power of defense attorney, code status Current Medications Current medication review: I attest that the foregoing medication list in the medical record is true, accurate, and complete to the best of my knowledge. VTE Prophylaxis - General VTE prophylaxis initiated: yes Diagnosis, Assessment Plan Hospital course to date: This is a 67-year-old gentleman with a past medical history of hypertension, hyperlipidemia, diabetes, neuropathy, alcohol use, liver cirrhosis, kidney disease, syncope who came to the hospital with shortness of breath and chest tightness for 2 days. Patient describes significant orthopnea and increasing edema in bilateral lower extremities that brought the patient to the hospital. Initial workup positive for mildly elevated troponin and elevated BNP and was diagnosed with NSTEMI and CHF exacerbation with acute hypoxic respiratory failure. Patient then underwent cardiac catheterization for elevated troponin. CV surgery was consulted for multivessel coronary artery disease found on angiogram. 1. multivessel disease -Patient underwent cardiac angiogram: Left main-proximal to mid 60 to 70% stenosis LAD-ostial LAD 90% stenosis Left circumflex-patent RCA-mild 30 to 40% mid stenosis EF 55 to 60% Wall motion is normal, grade 1 diastolic dysfunction, normal systolic function. Mitral valve: Moderately calcified with leaflet thickening. Moderate stenosis. Mild regurgitation. Aortic valve: Thickening and sclerosis 2. Liver disease -Patient recently diagnosed. Patient does not live local to [place]. Will consult gastroenterology to see patient. -EtOH cessation 3. Chronic kidney disease -Patient does not live local to [place]. Will consult nephrology to see patient. Patient will be presented at complex cardiology conference on Wednesday. Further recommendations to follow. 06/04/23 Patient in stable condition Labs and imaging reviewed Case presented at complex cardiology conference this morning and the team deemed patient will be best be suited with CABG. Preop workup ongoing Timing of surgery pending Plan of care discussed with patient and family. All questions were answered. 06/05/23 Patient doing well, denies chest pain Labs reviewed Pre op workup ongoing, pending vein mapping and carotid duplex On 4l nasal cannula, wean off oxygen as tolerated Incentive spirometer teaching Cardiac diet OOB to chair, ambulate Plan of care discussed with patient, all questions were answered. 06/06/23 Patient in stable condition Denies chest pain Wean off oxygen Encourage I-S use and deep breathing Tentatively plan for CABG in the upcoming week Plan of care discussed with patient, all questions were answered. 06/07/23 Patient seen and examined, denies chest pain Labs reviewed I-S use encourage, wean off oxygen as tolerated, on 2 L nasal cannula Tolerating diet Out of bed in chair, PT OT Timing of surgery pending Plan of care discussed with the patient, all questions were answered 06/08/23 Patient in stable condition Labs reviewed On room air, encourage I-S use Preop workup completed I will tentatively schedule him for surgery on Wednesday Plan of care discussed with patient, all questions were answered 06/09/23 Patient in stable condition Labs reviewed On room air, encourage I-S use Preop workup completed I will tentatively schedule him for surgery on Wednesday Plan of care discussed with patient, all questions were answered 06/10/23 Patient is stable condition, denies chest pain On room air Preop workup completed Plan for surgery on Wednesday-CABG and possible mitral valve I have discussed with the patient the operation, risk involved, calculated STS risk score, benefits, alternatives, and complicated. Patient acknowledges understanding and is willing to proceed. 06/11/23 CABG x 3 (COSTA-LAD, SVG-Diag, SVG-OM) EVH (RGSV) ALAA PP 06/12/23 POD 1 AAO x 3 Respiratory: on 10 L NC, wean as tolerated. Encourage IS. CT in place 325/196, leave in place, monitor outputs. Cardiac: Sinus rhythm. on levo 5, epi 2, Milrinone. GI: advance diet as tolerated. continue Bowel regimen. : Marques in place. Patient walked unit with PT DC Tylenol due to liver disease Patient was seen and examined at [facility]. Plan of care discussed with multidisciplinary team 06/13/23 POD 2 AAO x 3 Respiratory: on Bipap Encourage IS. Cardiac: Sinus rhythm. Pacing wires on standby, episode of hypotension, on levo @ 6, no response to dopamine for urine output GI: advance diet as tolerated. continue Bowel regimen. : Marques in place. Low urine output, start Lasix drip, vasopressin Plan to start Lasix drip. If no improvement in renal perfusion, patient will need CRRT. Patient was seen and examined at [facility]. Plan of care discussed with multidisciplinary team Nephrology following. Appreciate input Continue supportive care, 06/14/23 POD 3 AAOx3 Respiratory: Teleflex 60% Cardiac: Sinus rhythm, pacing wires on standby, levo at 2, vaso turned off this a.m. Continues on Lasix drip Urine output 1100 Chest tube drainage Abdominal ultrasound Evaluation limited by overlying bandage. Cirrhotic liver morphology. Cholelithiasis and distended gallbladder without sonographic features of acute cholecystitis. Will obtain bedside echo. Patient was seen and examined Dr. Martel. Continue supportive care Plan of care discussed with multidisciplinary team. 06/15/23 POD 4 AAOx3 Respiratory: On 2 L nasal cannula, wean as tolerated Cardiac: Sinus rhythm, pacing wires on standby, off pressor Urine output improved on Lasix drip, continue to monitor urine output DC left chest tube. Continue PT/OT, out of bed Patient was seen and examined Dr. Martel. Continue supportive care Plan of care discussed with multidisciplinary team. 06/17/23 POD 6 AAOx3 Respiratory: On 3 L NC Cardiac: Sinus rhythm, pacing wires on standby, off pressor monitor urine output. Continue PT/OT, out of bed Patient was seen and examined Dr. Martel. Continue supportive care Plan of care discussed with multidisciplinary team. Okay to CVN 1 continue PT/OT 06/18/23 POD 6 AAOx3 Respiratory: Cardiac: Sinus rhythm, pacing wires on standby, off pressor monitor urine output. Continue PT/OT, out of bed Patient was seen and examined Dr. Martel. Continue supportive care 06/19/23 POD 7 Patient is stable condition, denies complaints Labs reviewed Wean off oxygen, on 1 L nasal cannula Encourage incentive spirometer use Discontinue pacing wires Limited echocardiogram Bilateral lower extremity Dopplers negative for DVT Tolerating diet, bowel regimen Out of bed to chair, PT/OT Discharge planning for home with family support Plan of care discussed with patient, all questions were answered 06/20/23 POD 8 Patient doing well, denies complaints Labs reviewed Echocardiogram shows EF 50 to 55%, no pericardial effusion On room air encourage incentive spirometer use Cardiac diet, bowel regimen PT/OT, ambulate Discharge planning for home Discussed plan of care with patient, all questions were answered Consultants: cardiology, cardiovascular surgery at 1017 RPT #:[id number] END OF REPORT [facility] 2023-06-20 10:03:00 [facility] ([facility]) Cardiology Progress Note REPORT#:[id number] REPORT STATUS: Signed REPORT INITIALIZATION DATE:06/20/23 TIME: 1003 PATIENT: MINDY CARTER UNIT #: [id number] ROOM/BED: [place] [address] : 54 AGE: 67 SEX: M ATTEND: Kumar Garcia MD ADM AUTHOR: Clayotn Nathan MD REPT SERVICE DT/TIME: 06/20/23 1003 * ALL edits or amendments must be made on the electronic/computer document * Subjective Free Text Subj Notes Free Text Subj Notes: Cardiology progress note Date of service: 06/20/2023 Chief complaint/reason for consult: NSTEMI Patient seen and examined, chart reviewed, questions/concerns addressed with RN. Current medication and vitals reviewed. HPI and interval Hx: Creatinine improving adequate urine output Subjective: No chest pain today. Much better able to walk around Objective: Vital Signs Date Temp Pulse Resp B/P B/P Mean Pulse Ox FiO2 06/18-06/19 97.5-98.2 68-81 14-38 110-156/53-89 0.0-110 91-98 24 GEN: Alert and cooperative, no acute distress. HEENT: NC/AT, EOMI CARD: RRR, normal S1/S2 LUNGS: CTA w/o added sounds, GBAE. Assessment, Impression and medical decision making: -NSTEMI -Acute on chronic diastolic congestive heart -Morbid obesity -Hypertension, hyperlipidemia, type 2 diabetes mellitus -NIYA Plan/recommendation: -Status post CABG and left atrial pended amputation -Continue p.o. Lasix -Continue with aspirin Plavix, Lipitor 40, low-dose beta-blockers -Anticipate discharge in the next 24 hours. at 1256 RPT #:[id number] END OF REPORT [facility] 2023-06-19 18:08:00 [facility] Hospitalist Progress Note REPORT#:[id number] REPORT STATUS: Signed REPORT INITIALIZATION DATE:06/19/23 TIME: 1807 PATIENT: MINDY CARTER UNIT #: [id number] ROOM/BED: [place] [address] : 54 AGE: 67 SEX: M ATTEND: Kumar Garcia MD ADM AUTHOR: Kumar Garcia MD REPT SERVICE DT/TIME: 06/19/23 1808 * ALL edits or amendments must be made on the electronic/computer document * Subjective Chief complaint: no new complaints. HPI: This is a 67-year-old male with history of high blood pressure, hyperlipidemia, diabetes mellitus, syncope, neuropathy, alcohol use, liver cirrhosis, stage II CKD presents with shortness of breath that has been increasing since 2 days ago. Patient took extra dose of Aldactone and hydrochlorothiazide which did not help. Patient also reports chest tightness and is currently on 5 L of oxygen per nasal cannula. Patient says that he cannot lie down he gets short of breath when he lies down. He drinks whiskey about 3 shots a day. He has been having increasing edema in bilateral lower extremities. No headaches or dizziness. No other complaints elicited. Objective General VS/I O: Vital Signs: Date Time Temp Pulse Resp B/P B/P Pulse O2 O2 Flow FiO2 Mean Ox Delivery Rate 06/18 1714 97.9 81 18 125/68 86.9 98 06/18 1215 98.2 74 18 133/89 0.0 98 06/18 1013 93 Nasal 1 24 cannula 06/18 0800 Nasal 1 cannula 06/18 0734 98.1 72 18 137/73 0.0 96 Nasal cannula 06/18 0122 Nasal 1 cannula 06/18 0000 98.1 65 18 110/65 0.0 93 Nasal cannula 06/17 2006 93 Nasal 1 cannula 06/17 1900 71 06/17 1838 98.1 74 17 126/74 0.0 94 24 hour I O ending at 0700: 06/18 0700 06/17 1900 Intake Total 450 Output Total 650 37829 Balance -650 -9550 Intake, Oral 450 Number 0 Bowel Movements Output, Urine 650 04811 PATIENT WEIGHT: Weight (lb): 249 Weight (oz): 12.54 Weight (kg): 113.300 Physical Exam General appearance: alert, awake, oriented Head/Eyes: WEARING EYEGLASSES SHAVED HEAD ENT: moist mucosal membranes Neck: normal thyroid, no JVD Cardiovascular: normal heart sounds, regular rate rhythm, no gallop, no murmur , no rub Respiratory: hypoxia, on oxygen Abdomen: non-tender, normal bowel sounds, soft Extremities: 3+ PRETIBIAL EDEMA Musculoskeletal: normal inspection Neuro/BUSINESS AREA MANAGER: alert, oriented X 3, CNII-XII intact Skin: dry, intact, no rash Psychiatry: normal affect Results Findings/Data: Laboratory Tests 06/18 06/18 06/18 06/18 06/17 1716 1217 1482 1664 1490 Chemistry Sodium (134 - 147 mEq/L) 132 L Potassium (3.4 - 5.0 mEq/L) 3.8 Chloride (100 - 108 mEq/L) 94 L Carbon Dioxide (21 - 33 mEq/l) 30 Anion Gap (0 - 20) 12 BUN (7 - 25 mg/dL) 73 H Creatinine (0.6 - 1.3 mg/dL) 1.7 H Glomerular Filtr Rate (80 - 90) 43.4 L Glucose (77 - 141 mg/dL) 187 H POC Glucose (70 - 110 MG/DL) 132 H 160 H 184 H 225 H Calcium (8.0 - 10.5 mg/dL) 8.1 Magnesium (1.6 - 2.6 mg/dL) 2.44 Laboratory Tests 06/18 0439 Hematology WBC (4.5 - 11.0 x10 3/uL) 11.7 H RBC (4.00 - 5.60 x10 6/uL) 3.26 L Hgb (12.5 - 16.9 g/dL) 9.9 L Hct (37.5 - 50.7 %) 30.4 L MCV (81.0 - 99.0 fL) 93.3 MCH (27.0 - 33.0 pg) 30.4 MCHC (33.0 - 37.0 g/dL) 32.6 L RDW (11.5 - 14.5 %) 14.4 Plt Count (150 - 400 x10 3/uL) 206 MPV (7.0 - 9.0 fL) 11.8 H Add Manual Diff YES Seg Neutrophils % (37 - 69 %) 85.3 H Band Neutrophils % (0.0 - 10.0 %) 0.0 Lymphocytes % (Manual) (23 - 55 %) 4.6 L Monocytes % (Manual) (0 - 10 %) 8.3 Eosinophils % (Manual) (0.0 - 4.0 %) 0.9 Myelocytes (0.0 - 0.0 %) 0.9 H Platelet Estimate (ADEQUATE THOUSAND) Adequate Plt Morphology Comment LARGE PLATELETS Polychromasia 2+ Anisocytosis 2+ Microcytosis 2+ Macrocytosis 2+ Radiology data: Recent Impressions: RADIOLOGY - XR CHEST 1 V 06/18 0743 Report Impression - Status: SIGNED Entered: 06/19/2023 0922 IMPRESSION: No significant change from the comparison study. Shallow inspiration with small pleural effusions and associated lower lobe airspace disease. LOCATION: B2 Impression By: Cierra - John Bergeron M.D. Diagnosis, Assessment Plan Consultants: cardiology, cardiovascular surgery Free Text DxA P Notes Free text DxA P notes: VOLUME OL WITH Shortness of breath/hypoxia/3+ LEG EDEMA - CONT LASIX GTT, UF BY HD On 8 L oxygen via nasal cannula Fluid overload on chest x-ray On Lasix drip ICC on board Acute on chronic diastolic congestive heart failure - STABLE, CONT UF - Cardiology consulted - Echo: EF 55 to 60% S/p CABG on 06/10 Milrinone drip DC'd On Lasix drip 06/12 On BiPAP now off BiPAP 06/13 On 8 L oxygen via nasal cannula 06/13 Multivessel CAD, S/P CABG X3, ALAA - STABLE, CTS/ICC SEEN S/p CABG on 06/10 On aspirin, Plavix, amiodarone - no statin for abnormal LFTs/cirrhosis On milrinone drip DC'd Chest tube in place DC'd Cardiology, CT surgery, ICC on board Hypotension - ECHO EF 50-55% BP dropped to 80s over 50s overnight 06/11 On Levophed and vasopressin off pressors ICC, CT surgery on board NIYA ON CRF - CONT DIURESIS, RENAL SEEN Metolazone x 1 given 06/12 On Lasix drip, if urinary output does not improve, may require CRRT 06/12 Nephrology on board Renal function improving Pleural effusion DUE TO VOLUME OL - STABLE On Lasix drip Abnormal LFTs: -cholelithiasis with distended GB, no acute cholecystitis on US - Monitor - GI on board Diabetes mellitus II - STABLE HGBA1c 8.4% Insulin drip, transition to Sliding scale insulin as needed, long acting insulin as per ICC Hypertension Renew medications once they have been updated in the computer Now on pressors for hypotension DEBILITY - REHAB SEEN, MAY NEED IRF Patient does not have a living will or medical power of defense attorney Patient is a full code 06/01 multivessel disease on cath, CTS consulted, patient undergoing preop evaluation for possible CABG. 06/02- pt continues cabg eval, conf Fri, nephro/GI consulted per cts, renal indices wnls today, Abd us confirmed cirrhosis with splenomegaly. 06/03 patient continues preop evaluation for CABG, IV Lasix transition to oral 06/04 CABG preop planning 06/05- CABG planning 06/06 ongoing CABG planning per CTS, blood sugars noted to be elevated in 240s to 300s. Will start on basal insulin 7 units for now daily, continue meal correctional insulin. Patient on glipizide and metformin at home holding for now given CABG eval and and pending surgical date. 06/07- pending CABG eval, d/w Cardiology and started patient on IV lasix 40 mg BID due to increasing wt, symptoms of dyspnea. Monitor I'O's. 06/08- poorly controlled blood sugars noted, increased basal insulin to 10 units daily, add meal time insulin AC, wt based compared to SSI admin, started on 4 Units reg insulin AC. Monitor I/O, contiued on IV lasix 40 mg BID, wt 110 kg today (dry wt reported to be 105 kg). 06/09- optimize insulin for improved glucose control, pending cabg tomorrow 06/10- pending cabg Disposition: S/p CABG on 06/11/2023. Chest tubes removed, on 8 L oxygen via nasal cannula, off pressors, fluid overload on chest x-ray, on Lasix drip, on insulin drip, kidney function improving. Working with PT/OT. Multiple specialty services on board. Continue CVICU care. Quality: Gen Med Crit Care VTE Prophylaxis VTE prophylaxis initiated: yes Current Medications Current medication review: I attest that the foregoing medication list in the medical record is true, accurate, and complete to the best of my knowledge. Advanced Care Plan 65 or Older Discussed with: patient Discussion included: living will, power of defense attorney, code status at 1810 RPT #:[id number] END OF REPORT [facility] 2023-06-19 17:09:00 [facility] Cardiothoracic Surgery Prog REPORT#:[id number] REPORT STATUS: Signed REPORT INITIALIZATION DATE:06/19/23 TIME: 1709 PATIENT: MINDY CARTER UNIT #: [id number] ROOM/BED: [place] [address] : 54 AGE: 67 SEX: M ATTEND: Kumar Garcia MD ADM AUTHOR: Nathaniel Martel MD REPT SERVICE DT/TIME: 06/19/23 3974 * ALL edits or amendments must be made on the electronic/computer document * General Post-op: day 8 Status post: 06/11/23 CABG x 3 (COSTA-LAD, SVG-Diag, SVG-OM) EVH (RGSV) ALAA PP Subjective Chief complaint: Postop cabg Review of Systems Constitutional: Reports: fatigue. Skin: Denies: abrasion, bruising, contusion. Allergy/Immun: Denies: allergic reaction, anaphylaxis, hives. Respiratory: Denies: HERRING (dyspnea on exertion). Cardiovascular: Denies: chest pain, palpitations. Heme: Denies: adenopathy, bleeding, bruising. Endocrine: Denies: cold intolerance, heat intolerance, polydipsia. Neuro: Denies: confusion, dizziness, seizure, syncope. All systems rev neg: except as marked Objective General VS/I O Last Documented: Result Date Time Pulse Ox 98 06/18 1215 B/P 133/89 06/18 1215 B/P Mean 0.0 06/18 1215 Temp 36.8 06/18 1215 Pulse 74 06/18 1215 Resp 18 06/18 1215 FiO2 24 06/18 1013 O2 Delivery Nasal cannula 06/18 1013 O2 Flow Rate 1 06/18 1013 24 hour I O ending at 0700: 06/18 0700 06/17 1900 Intake Total 450 Output Total 650 89476 Balance -650 -9550 Intake, Oral 450 Number 0 Bowel Movements Output, Urine 650 68808 PATIENT WEIGHT: Weight (lb): 249 Weight (oz): 12.54 Weight (kg): 113.300 Dietitian Nutrition assessment The data set between the solid lines has been imported from the dietitian's assessment. BMI Calculated: 36.9 Nutrition related diagnosis: Nutrition diagnosis details: Nutrition problem: Increased nutrient needs Nutrition etiology: Acute illness Nutrition signs and symptoms: CARDIAC POST-OP Nutrition prescription: 1. CARDIAC CCD5 DIET. 2. GLUCERNA 4 PER DAY. 3. HEALTHY HEART CARBOHYDRATE CONTROLLED EDUCATION/HANDOUTS PROVIDED. Dietitian name: Annia Jeffery, DIET Assessment completed: 06/17/23 Physical Exam General appearance: alert, awake, oriented HEENT: anicteric, mucosal membranes moist, pupils reactive to light Neck: full range of motion, non-tender Cardiovascular: normal heart sounds, regular rate rhythm Respiratory: aerating well, symmetric expansion Abdomen: soft, non-tender Genitourinary: no bladder distention, no flank pain Extremities: dry, moves all Musculoskeletal: no muscle spasm Skin: dry, intact Psychiatry: normal affect, normal mood Current Medications Medications: Active Meds + DC'd Last 24 Hrs Furosemide (LASIX) 40 MG BID 9A 5P PO Insulin Glargine (Semglee) 30 UNIT DAILY SUBQ Atorvastatin Calcium (LIPITOR) 40 MG 2100 PO Oxycodone HCl (ROXICODONE) 5 MG Q4H PRN PRN PO Oxycodone HCl (ROXICODONE) 10 MG Q4H PRN PRN PO Insulin Human Lispro (HUMALOG) 0 AC HS SUBQ Furosemide (LASIX 40 mg/4 mL INJECTION) 40 MG BID 9A 5P IV (DC) Fentanyl Citrate (SUBLIMAZE) 100 MCG PACU Q10MIN PRN PRN IV Fentanyl Citrate (SUBLIMAZE) 50 MCG PACU Q10MIN PRN PRN IV Hydralazine HCl (APRESOLINE) 5 MG PACU Q10MIN PRN PRN IV Hydrocodone Bitart/Acetaminophen (NORCO 5/325) 1 TAB PACU ONCE PO (CKD) Hydromorphone HCl (DILAUDID) 1 MG PACU Q10MIN PRN PRN IV Hydromorphone HCl (DILAUDID) 0.5 MG PACU Q5MIN PRN PRN IV Insulin Human Lispro (HUMALOG) 0 PACU ONCE PRN SUBQ Labetalol HCl (labetalol) 5 MG PACU Q10MIN PRN PRN IV Meperidine HCl (MEPERIDINE HCL/PF) 12.5 MG PACU ONCE PRN IV Morphine Sulfate (morphine SULFATE) 2 MG PACU Q10MIN PRN PRN IV Ondansetron HCl (ZOFRAN) 4 MG PACU ONCE PRN IV Ropivacaine (NAROPIN 0.5% 150 MG/30mL) 150 MG ASDIR PRN LOCAL Tramadol HCl (ULTRAM) 50 MG PACU ONCE PO (CKD) Insulin Glargine (Semglee) 40 UNIT BEDTIME SUBQ Ipratropium [place] (ATROVENT) 500 MCG RTQ2H PRN PRN INH Cyanocobalamin (Vitamin B-12 500 mcg tab) 500 MCG DAILY PO Ferrous Sulfate (FERROUS SULFATE) 325 MG DAILY PO Bisacodyl (DULCOLAX) 10 MG ONCE PRN RECTAL Magnesium Hydroxide (MILK OF MAGNESIA) 30 ML ONCE PRN PO Vasopressin (VASOSTRICT 20 Unit/NS 100ML) 100 ML ASDIR IV (CKD) Dopamine HCl/Dextrose (DOPamine 400MG/D5W 250ML) 250 ML ASDIR IV Epinephrine (ADRENALIN CHLORIDE) 4 MG ASDIR IV Sodium Chloride (SODIUM CHLORIDE 0.9%) 246 ML Melatonin (Melatonin) 6 MG BEDTIME PRN PO Clopidogrel Bisulfate (Plavix) 75 MG DAILY PO Polyethylene Glycol (MIRALAX) 17 GM DAILY PO Pantoprazole (PROTONIX) 40 MG DAILY@0600 PO Milrinone Lactate/Dextrose (MILRINONE 20MG/D5W 100ML) 100 ML TITRATE IV (CKD) Aspirin (ASPIRIN) 81 MG DAILY PO Amiodarone HCl (CORDARONE) 200 MG TID PO Docusate Sodium (COLACE) 100 MG BID PO Metoprolol Tartrate (LOPRESSOR) 12.5 MG Q12HR PO Sennosides (Senna Lax 8.6 MG TABLET) 17.2 MG BEDTIME PO Calcium Chloride (CALCIUM CHLORIDE) 1 GM ASDIR PRN IV Dextrose/Water (DEXTROSE 10% IN WATER) 125 ML ASDIR PRN IV (CKD) Dextrose/Water (DEXTROSE 10% IN WATER) 250 ML ASDIR PRN IV (CKD) Insulin Human Regular (HumuLIN R) 100 UNIT ASDIR IV (CKD) Sodium Chloride (SODIUM CHLORIDE 0.9%) 99 ML Magnesium Sulfate (MAGNESIUM SULFATE 4GM/SWFI 100ML) 100 ML ASDIR PRN IV Magnesium Sulfate (MAGNESIUM SULFATE 2GM/SWFI 50ML) 50 ML ASDIR PRN IV Magnesium Sulfate/Dextrose (MAGNESIUM SULFATE 1GM/D5W 100ML) 100 ML ASDIR PRN IV Nitroglycerin/Dextrose (NITROGLYCERIN 50,000MCG/D5W 250ML) 250 ML ASDIR IV Norepinephrine Bitartrate (NOREPINEPHRINE 8 MG/NS 250 ML) 250 ML TITRATE IV Ondansetron HCl (ZOFRAN) 4 MG Q6H PRN PRN IV Potassium Chloride (KCL 20MEQ/SWFI 100ML) 100 ML ASDIR PRN IV Sodium Bicarbonate (SODIUM BICARBONATE) 50 MEQ ASDIR PRN IV Sodium Chloride (SODIUM CHLORIDE 0.9%) 1,000 ML .Q20H IV Sodium Chloride (SODIUM CHLORIDE 0.9%) 250 ML Q24H IV Lactulose (LACTULOSE) 10 GM DAILY PRN PRN PO Thiamine HCl (THIAMINE HCL) 100 MG DAILY PO Results Findings/Data: Laboratory Tests 06/18 06/18 06/18 06/17 1217 0735 0439 1910 Chemistry Sodium (134 - 147 mEq/L) 132 L Potassium (3.4 - 5.0 mEq/L) 3.8 Chloride (100 - 108 mEq/L) 94 L Carbon Dioxide (21 - 33 mEq/l) 30 Anion Gap (0 - 20) 12 BUN (7 - 25 mg/dL) 73 H Creatinine (0.6 - 1.3 mg/dL) 1.7 H Glomerular Filtr Rate (80 - 90) 43.4 L Glucose (77 - 141 mg/dL) 187 H POC Glucose (70 - 110 MG/DL) 160 H 184 H 225 H Calcium (8.0 - 10.5 mg/dL) 8.1 Magnesium (1.6 - 2.6 mg/dL) 2.44 Laboratory Tests 06/18 0439 Hematology WBC (4.5 - 11.0 x10 3/uL) 11.7 H RBC (4.00 - 5.60 x10 6/uL) 3.26 L Hgb (12.5 - 16.9 g/dL) 9.9 L Hct (37.5 - 50.7 %) 30.4 L MCV (81.0 - 99.0 fL) 93.3 MCH (27.0 - 33.0 pg) 30.4 MCHC (33.0 - 37.0 g/dL) 32.6 L RDW (11.5 - 14.5 %) 14.4 Plt Count (150 - 400 x10 3/uL) 206 MPV (7.0 - 9.0 fL) 11.8 H Add Manual Diff YES Seg Neutrophils % (37 - 69 %) 85.3 H Band Neutrophils % (0.0 - 10.0 %) 0.0 Lymphocytes % (Manual) (23 - 55 %) 4.6 L Monocytes % (Manual) (0 - 10 %) 8.3 Eosinophils % (Manual) (0.0 - 4.0 %) 0.9 Myelocytes (0.0 - 0.0 %) 0.9 H Platelet Estimate (ADEQUATE THOUSAND) Adequate Plt Morphology Comment LARGE PLATELETS Polychromasia 2+ Anisocytosis 2+ Microcytosis 2+ Macrocytosis 2+ Radiology data: Recent Impressions: RADIOLOGY - XR CHEST 1 V 06/18 0743 Report Impression - Status: SIGNED Entered: 06/19/2023 0922 IMPRESSION: No significant change from the comparison study. Shallow inspiration with small pleural effusions and associated lower lobe airspace disease. LOCATION: B2 Impression By: Cierra - John Bergeron M.D. Results: labs reviewed, vital signs stable, rythm personally rev'd, current med profile rev'd Quality: Trauma Gen Surg Advanced Care Plan 65 or Older Discussed with: patient Discussion included: living will, power of defense attorney, code status Current Medications Current medication review: I attest that the foregoing medication list in the medical record is true, accurate, and complete to the best of my knowledge. VTE Prophylaxis - General VTE prophylaxis initiated: yes Diagnosis, Assessment Plan Hospital course to date: This is a 67-year-old gentleman with a past medical history of hypertension, hyperlipidemia, diabetes, neuropathy, alcohol use, liver cirrhosis, kidney disease, syncope who came to the hospital with shortness of breath and chest tightness for 2 days. Patient describes significant orthopnea and increasing edema in bilateral lower extremities that brought the patient to the hospital. Initial workup positive for mildly elevated troponin and elevated BNP and was diagnosed with NSTEMI and CHF exacerbation with acute hypoxic respiratory failure. Patient then underwent cardiac catheterization for elevated troponin. CV surgery was consulted for multivessel coronary artery disease found on angiogram. 1. multivessel disease -Patient underwent cardiac angiogram: Left main-proximal to mid 60 to 70% stenosis LAD-ostial LAD 90% stenosis Left circumflex-patent RCA-mild 30 to 40% mid stenosis EF 55 to 60% Wall motion is normal, grade 1 diastolic dysfunction, normal systolic function. Mitral valve: Moderately calcified with leaflet thickening. Moderate stenosis. Mild regurgitation. Aortic valve: Thickening and sclerosis 2. Liver disease -Patient recently diagnosed. Patient does not live local to [place]. Will consult gastroenterology to see patient. -EtOH cessation 3. Chronic kidney disease -Patient does not live local to [place]. Will consult nephrology to see patient. Patient will be presented at complex cardiology conference on Wednesday. Further recommendations to follow. 06/04/23 Patient in stable condition Labs and imaging reviewed Case presented at complex cardiology conference this morning and the team deemed patient will be best be suited with CABG. Preop workup ongoing Timing of surgery pending Plan of care discussed with patient and family. All questions were answered. 06/05/23 Patient doing well, denies chest pain Labs reviewed Pre op workup ongoing, pending vein mapping and carotid duplex On 4l nasal cannula, wean off oxygen as tolerated Incentive spirometer teaching Cardiac diet OOB to chair, ambulate Plan of care discussed with patient, all questions were answered. 06/06/23 Patient in stable condition Denies chest pain Wean off oxygen Encourage I-S use and deep breathing Tentatively plan for CABG in the upcoming week Plan of care discussed with patient, all questions were answered. 06/07/23 Patient seen and examined, denies chest pain Labs reviewed I-S use encourage, wean off oxygen as tolerated, on 2 L nasal cannula Tolerating diet Out of bed in chair, PT OT Timing of surgery pending Plan of care discussed with the patient, all questions were answered 06/08/23 Patient in stable condition Labs reviewed On room air, encourage I-S use Preop workup completed I will tentatively schedule him for surgery on Wednesday Plan of care discussed with patient, all questions were answered 06/09/23 Patient in stable condition Labs reviewed On room air, encourage I-S use Preop workup completed I will tentatively schedule him for surgery on Wednesday Plan of care discussed with patient, all questions were answered 06/10/23 Patient is stable condition, denies chest pain On room air Preop workup completed Plan for surgery on Wednesday-CABG and possible mitral valve I have discussed with the patient the operation, risk involved, calculated STS risk score, benefits, alternatives, and complicated. Patient acknowledges understanding and is willing to proceed. 06/11/23 CABG x 3 (COSTA-LAD, SVG-Diag, SVG-OM) EVH (RGSV) ALAA PP 06/12/23 POD 1 AAO x 3 Respiratory: on 10 L NC, wean as tolerated. Encourage IS. CT in place 325/196, leave in place, monitor outputs. Cardiac: Sinus rhythm. on levo 5, epi 2, Milrinone. GI: advance diet as tolerated. continue Bowel regimen. : Marques in place. Patient walked unit with PT DC Tylenol due to liver disease Patient was seen and examined at [facility]. Plan of care discussed with multidisciplinary team 06/13/23 POD 2 AAO x 3 Respiratory: on Bipap Encourage IS. Cardiac: Sinus rhythm. Pacing wires on standby, episode of hypotension, on levo @ 6, no response to dopamine for urine output GI: advance diet as tolerated. continue Bowel regimen. : Marques in place. Low urine output, start Lasix drip, vasopressin Plan to start Lasix drip. If no improvement in renal perfusion, patient will need CRRT. Patient was seen and examined at [facility]. Plan of care discussed with multidisciplinary team Nephrology following. Appreciate input Continue supportive care, 06/14/23 POD 3 AAOx3 Respiratory: Teleflex 60% Cardiac: Sinus rhythm, pacing wires on standby, levo at 2, vaso turned off this a.m. Continues on Lasix drip Urine output 1100 Chest tube drainage Abdominal ultrasound Evaluation limited by overlying bandage. Cirrhotic liver morphology. Cholelithiasis and distended gallbladder without sonographic features of acute cholecystitis. Will obtain bedside echo. Patient was seen and examined Dr. Martel. Continue supportive care Plan of care discussed with multidisciplinary team. 06/15/23 POD 4 AAOx3 Respiratory: On 2 L nasal cannula, wean as tolerated Cardiac: Sinus rhythm, pacing wires on standby, off pressor Urine output improved on Lasix drip, continue to monitor urine output DC left chest tube. Continue PT/OT, out of bed Patient was seen and examined Dr. Martel. Continue supportive care Plan of care discussed with multidisciplinary team. 06/17/23 POD 6 AAOx3 Respiratory: On 3 L NC Cardiac: Sinus rhythm, pacing wires on standby, off pressor monitor urine output. Continue PT/OT, out of bed Patient was seen and examined Dr. Martel. Continue supportive care Plan of care discussed with multidisciplinary team. Okay to CVN 1 continue PT/OT 06/18/23 POD 6 AAOx3 Respiratory: Cardiac: Sinus rhythm, pacing wires on standby, off pressor monitor urine output. Continue PT/OT, out of bed Patient was seen and examined Dr. Martel. Continue supportive care 06/19/23 POD 7 Patient is stable condition, denies complaints Labs reviewed Wean off oxygen, on 1 L nasal cannula Encourage incentive spirometer use Discontinue pacing wires Limited echocardiogram Bilateral lower extremity Dopplers negative for DVT Tolerating diet, bowel regimen Out of bed to chair, PT/OT Discharge planning for home with family support Plan of care discussed with patient, all questions were answered Consultants: cardiology, cardiovascular surgery at 0851 RPT #:[id number] END OF REPORT [facility] 2023-06-19 14:48:00 [facility] Cardiology Progress Note REPORT#:[id number] REPORT STATUS: Signed REPORT INITIALIZATION DATE:06/19/23 TIME: 1447 PATIENT: MINDY CARTER UNIT #: [id number] ROOM/BED: [place] [address] : 54 AGE: 67 SEX: M ATTEND: Kumar Garcia MD ADM AUTHOR: Clayton Nathan MD REPT SERVICE DT/TIME: 06/19/23 1448 * ALL edits or amendments must be made on the electronic/computer document * Subjective Free Text Subj Notes Free Text Subj Notes: Cardiology progress note Date of service: 06/19/2023 Chief complaint/reason for consult: NSTEMI Patient seen and examined, chart reviewed, questions/concerns addressed with RN. Current medication and vitals reviewed. HPI and interval Hx: Creatinine improving adequate urine output Subjective: No chest pain today. Much better able to walk around Objective: Vital Signs Date Temp Pulse Resp B/P B/P Mean Pulse Ox FiO2 06/17-06/18 97.3-98.2 65-76 17-34 110-143/65-89 0.0-93 92-98 24 GEN: Alert and cooperative, no acute distress. HEENT: NC/AT, EOMI CARD: RRR, normal S1/S2 LUNGS: CTA w/o added sounds, GBAE. Assessment, Impression and medical decision making: -NSTEMI -Acute on chronic diastolic congestive heart -Morbid obesity -Hypertension, hyperlipidemia, type 2 diabetes mellitus -NIYA Plan/recommendation: -Status post CABG and left atrial pended amputation -Continue with IV diuresis per nephrology -Continue with aspirin Plavix, no statin due to liver cirrhosis, low-dose beta- blockers -Anticipate discharge in the next 24 hours. at 1449 RPT #:[id number] END OF REPORT [facility] 2023-06-19 11:50:00 [facility] Nephrology Progress Note REPORT#:[id number] REPORT STATUS: Signed REPORT INITIALIZATION DATE:06/19/23 TIME: 115 PATIENT: MINDY CARTER UNIT #: [id number] ROOM/BED: [place] [address] : 54 AGE: 67 SEX: M ATTEND: Kumar Garcia MD ADM AUTHOR: Nkechi Bacon MD REPT SERVICE DT/TIME: 06/19/23 1150 * ALL edits or amendments must be made on the electronic/computer document * Subjective Chief complaint: SOB, CP HPI: 67-year-old male known to have hypertension, diabetes mellitus, hyperlipidemia, liver cirrhosis, chronic kidney disease who presented with shortness of breath and chest tightness and on further workup was found to have multivessel disease therefore he was being worked up for possible CABG. He said he had been diagnosed recently with chronic kidney disease but did not have any nausea, orthopnea, cramping, change of taste, involuntary movements, urinary complaints. He denied any chronic use of NSAIDs. He said for most part his blood pressures were controlled at home. 06/18 Patient denying all systemic review. Objective General VS/I O: Vital Signs: Date Time Temp Pulse Resp B/P B/P Pulse O2 O2 Flow FiO2 Mean Ox Delivery Rate 06/18 1934 36.8 78 14 156/72 0.0 92 Room air 06/18 1800 78 06/18 1714 36.6 81 18 125/68 86.9 98 06/18 1700 34 93 06/18 1601 80 37 151/83 110 95 06/18 1500 79 38 111/64 80 93 06/18 1400 75 36 110/53 76 98 06/18 1300 74 19 111/60 79 95 06/18 1215 36.8 74 18 133/89 0.0 98 06/18 1200 75 24 133/89 104 94 06/18 1100 73 30 130/68 93 95 06/18 1013 93 Nasal 1 24 cannula 06/18 1000 68 24 121/68 87 95 06/18 0900 72 24 130/71 95 96 06/18 0800 Nasal 1 cannula 06/18 0800 67 18 120/61 85 97 06/18 0734 36.7 72 18 137/73 0.0 96 Nasal cannula 06/18 0711 69 26 137/73 99 100 06/18 0122 Nasal 1 cannula 06/18 0000 36.7 65 18 110/65 0.0 93 Nasal cannula 24 hour I O ending at 0700: 06/18 0700 06/17 1900 Intake Total 450 Output Total 650 57394 Balance -650 -9550 Intake, Oral 450 Number 0 Bowel Movements Output, Urine 650 [id number] PATIENT WEIGHT: Weight (lb): 249 Weight (oz): 12.54 Weight (kg): 113.300 Physical Exam General appearance: alert, awake, oriented Head/eyes: atraumatic, EOMI ENT: moist mucous membranes, normal nose Neck: no JVD, no lymphadenopathy Cardiovascular: normal heart sounds, regular rate and rhythm Respiratory: aerating well, clear to auscultation Abdomen: non-tender, soft Genitourinary: no bladder distention, no flank pain Extremities: no edema, no gangrene, no swelling Diagnosis, Assessment Plan Free Text A P: 67-year-old male known to have hypertension, diabetes mellitus, hyperlipidemia, liver cirrhosis, chronic kidney disease who presented with shortness of breath and chest tightness and on further workup was found to have multivessel disease therefore he was being worked up for possible CABG. He said he had been diagnosed recently with chronic kidney disease but did not have any nausea, orthopnea, cramping, change of taste, involuntary movements, urinary complaints. He denied any chronic use of NSAIDs. He said for most part his blood pressures were controlled at home. Nephrology following for: 1. CKD:: Most recent creatinine was staying in normal range therefore plan is to keep mean arterial pressure above 65 and avoid nephrotoxic agents. 2. Hypertension: Mostly controlled therefore plan is to continue same. 3. Hypervolemia: Plan is to monitor input and output closely and treat with Lasix if needed. His echocardiogram showed an EF of 55 to 60%. 4. Chest pain/shortness of breath: He had been worked up with left heart cath and received contrast recently. Plan was to monitor closely for contrast- induced nephropathy and keep hydrated. 06/18 1. NIYA on CKD: Most likely cardiorenal.Kidney function stable . 2. Hypotension:He is post op CABG and is requiring pressor support, plan to monitor and keep MAP>65. Resolved 3. Hypervolemia: . Improved.He has been started on PO lasix. 4. Chest pain/shortness of breath: s/p CABG 06/10. 5/Patient okay to go home from nephrology standpoint. Consultants: cardiology, cardiovascular surgery at 2354 RPT #:[id number] END OF REPORT [facility] 2023-06-18 18:26:00 [facility] ([facility]) Nephrology Progress Note REPORT#:[id number] REPORT STATUS: Signed REPORT INITIALIZATION DATE:06/18/23 TIME: 1825 PATIENT: MINDY CARTER UNIT #: [id number] ROOM/BED: [address] : [birth year] AGE: 67 SEX: M ATTEND: Kumar Garcia MD ADM AUTHOR: Nkechi Bacon MD REPT SERVICE DT/TIME: 06/18/231825 * ALL edits or amendments must be made on the electronic/computer document * Subjective Chief complaint: SOB, CP HPI: 67-year-old male known to have hypertension, diabetes mellitus, hyperlipidemia, liver cirrhosis, chronic kidney disease who presented with shortness of breath and chest tightness and on further workup was found to have multivessel disease therefore he was being worked up for possible CABG. He said he had been diagnosed recently with chronic kidney disease but did not have any nausea, orthopnea, cramping, change of taste, involuntary movements, urinary complaints. He denied any chronic use of NSAIDs. He said for most part his blood pressures were controlled at home. 06/17 Patient denying all systemic review. Objective General VS/I O: Vital Signs: Date Time Temp Pulse Resp B/P B/P Pulse O2 O2 Flow FiO2 Mean Ox Delivery Rate 06/18 1013 93 Nasal 1 24 cannula 06/18 0734 36.7 72 18 137/73 0.0 96 Nasal cannula 06/18 0122 Nasal 1 cannula 06/18 0000 36.7 65 18 110/65 0.0 93 Nasal cannula 06/17 2006 93 Nasal 1 cannula 06/17 1900 71 06/17 1838 36.7 74 17 126/74 0.0 94 06/17 1800 75 28 92 06/17 1645 72 34 126/65 90 94 06/17 1645 36.3 72 18 126/65 0.0 98 06/17 1506 76 33 143/65 93 92 06/17 1400 72 31 125/66 89 90 06/17 1301 72 38 123/68 84 91 06/17 1200 71 31 132/61 88 94 24 hour I O ending at 0700: 06/18 0700 06/17 1900 Intake Total 450 Output Total 650 61237 Balance -650 -9550 Intake, Oral 450 Number 0 Bowel Movements Output, Urine 650 37748 PATIENT WEIGHT: Weight (lb): 249 Weight (oz): 12.54 Weight (kg): 113.300 Physical Exam General appearance: alert, awake, oriented Head/eyes: atraumatic, EOMI ENT: moist mucous membranes, normal nose Neck: no JVD, no lymphadenopathy Cardiovascular: normal heart sounds, regular rate and rhythm Respiratory: aerating well, clear to auscultation Abdomen: non-tender, soft Genitourinary: no bladder distention, no flank pain Extremities: no edema, no gangrene, no swelling Diagnosis, Assessment Plan Free Text A P: 67-year-old male known to have hypertension, diabetes mellitus, hyperlipidemia, liver cirrhosis, chronic kidney disease who presented with shortness of breath and chest tightness and on further workup was found to have multivessel disease therefore he was being worked up for possible CABG. He said he had been diagnosed recently with chronic kidney disease but did not have any nausea, orthopnea, cramping, change of taste, involuntary movements, urinary complaints. He denied any chronic use of NSAIDs. He said for most part his blood pressures were controlled at home. Nephrology following for: 1. CKD:: Most recent creatinine was staying in normal range therefore plan is to keep mean arterial pressure above 65 and avoid nephrotoxic agents. 2. Hypertension: Mostly controlled therefore plan is to continue same. 3. Hypervolemia: Plan is to monitor input and output closely and treat with Lasix if needed. His echocardiogram showed an EF of 55 to 60%. 4. Chest pain/shortness of breath: He had been worked up with left heart cath and received contrast recently. Plan was to monitor closely for contrast- induced nephropathy and keep hydrated. 06/17 1. NIYA on CKD: Most likely cardiorenal.Kidney function stable . 2. Hypotension:He is post op CABG and is requiring pressor support, plan to monitor and keep MAP>65. Resolved 3. Hypervolemia: He is post op CABG and has recieved fluids during surgey, he is improving volume slowly with lasix drip.Plan to wean drip as his oxygenation improves. Improved.He has been started on PO lasix. 4. Chest pain/shortness of breath: s/p CABG 06/10. 5/Patient okay to go home from nephrology standpoint. Consultants: cardiology, cardiovascular surgery at 1150 RPT #:[id number] END OF REPORT [facility] 2023-06-18 11:27:00 [facility] ([facility]) Gastroenterology Progress Note REPORT#:[id number] REPORT STATUS: Signed REPORT INITIALIZATION DATE:06/18/23 TIME: 1126 PATIENT: MINDY CARTER UNIT #: [id number] ROOM[place]BED: [facility] [place] : 54 AGE: 67 SEX: M ATTEND: Talat Lord MD ADM AUTHOR: Farideh Harris REPT SERVICE DT/TIME: 06/18/231126 * ALL edits or amendments must be made on the electronic/computer document * Farideh Harris 06/18/231126: Subjective Patient reports: Yes: bowel movement, passing gas. No: abdominal pain, black stools, nausea, rectal bleeding, vomiting. Review of Systems Constitutional: Denies: chills, fever. Respiratory: Denies: SOB. Cardiovascular: Denies: chest pain. Neuro: Denies: headache. Objective General VS/I O: Last Documented: Result Date Time Pulse Ox 98 06/17 110 B/P 115/65 06/17 110 B/P Mean 0.0 06/17 110 Temp 36.7 06/17 110 Pulse 68 06/17 110 Resp 18 06/17 110 FiO2 96 06/17 0901 O2 Delivery Nasal cannula 06/17 09 O2 Flow Rate 3 06/17 0901 24 hour I O ending at 0700: 06/17 0700 06/16 1900 Intake Total 200 1157 Output Total 300 1805 Balance -100 -648 Intake, Oral 200 920 Intake, Oral 237 Supplement Number 1 Bowel Movements Output, Urine 300 1805 Patient 112.8 kg Weight Weight Standing scale Measurement Method PATIENT WEIGHT: Weight (lb): 248 Weight (oz): 10.9 Weight (kg): 112.800 Medications: Active Meds + DC'd Last 24 Hrs Insulin Glargine (Semglee) 30 UNIT DAILY SUBQ Atorvastatin Calcium (LIPITOR) 40 MG 2100 PO Oxycodone HCl (ROXICODONE) 5 MG Q4H PRN PRN PO Oxycodone HCl (ROXICODONE) 10 MG Q4H PRN PRN PO Lactulose (LACTULOSE) 20 GM ONCE ONE PO (DC) Insulin Human Lispro (HUMALOG) 0 AC HS SUBQ Furosemide (LASIX 40 mg/4 mL INJECTION) 40 MG BID 9A 5P IV Fentanyl Citrate (SUBLIMAZE) 100 MCG PACU Q10MIN PRN PRN IV Fentanyl Citrate (SUBLIMAZE) 50 MCG PACU Q10MIN PRN PRN IV Hydralazine HCl (APRESOLINE) 5 MG PACU Q10MIN PRN PRN IV Hydrocodone Bitart/Acetaminophen (NORCO 5/325) 1 TAB PACU ONCE PO (CKD) Hydromorphone HCl (DILAUDID) 1 MG PACU Q10MIN PRN PRN IV Hydromorphone HCl (DILAUDID) 0.5 MG PACU Q5MIN PRN PRN IV Insulin Human Lispro (HUMALOG) 0 PACU ONCE PRN SUBQ Labetalol HCl (labetalol) 5 MG PACU Q10MIN PRN PRN IV Meperidine HCl (MEPERIDINE HCL/PF) 12.5 MG PACU ONCE PRN IV Morphine Sulfate (morphine SULFATE) 2 MG PACU Q10MIN PRN PRN IV Ondansetron HCl (ZOFRAN) 4 MG PACU ONCE PRN IV Ropivacaine (NAROPIN 0.5% 150 MG/30mL) 150 MG ASDIR PRN LOCAL Tramadol HCl (ULTRAM) 50 MG PACU ONCE PO (CKD) Insulin Glargine (Semglee) 40 UNIT BEDTIME SUBQ Ipratropium [place] (ATROVENT) 500 MCG RTQ2H PRN PRN INH Cyanocobalamin (Vitamin B-12 500 mcg tab) 500 MCG DAILY PO Ferrous Sulfate (FERROUS SULFATE) 325 MG DAILY PO Bisacodyl (DULCOLAX) 10 MG ONCE PRN RECTAL Magnesium Hydroxide (MILK OF MAGNESIA) 30 ML ONCE PRN PO Vasopressin (VASOSTRICT 20 Unit/NS 100ML) 100 ML ASDIR IV (CKD) Dopamine HCl/Dextrose (DOPamine 400MG/D5W 250ML) 250 ML ASDIR IV Epinephrine (ADRENALIN CHLORIDE) 4 MG ASDIR IV Sodium Chloride (SODIUM CHLORIDE 0.9%) 246 ML Melatonin (Melatonin) 6 MG BEDTIME PRN PO Clopidogrel Bisulfate (Plavix) 75 MG DAILY PO Polyethylene Glycol (MIRALAX) 17 GM DAILY PO Pantoprazole (PROTONIX) 40 MG DAILY@0600 PO Milrinone Lactate/Dextrose (MILRINONE 20MG/D5W 100ML) 100 ML TITRATE IV (CKD) Aspirin (ASPIRIN) 81 MG DAILY PO Amiodarone HCl (CORDARONE) 200 MG TID PO Docusate Sodium (COLACE) 100 MG BID PO Metoprolol Tartrate (LOPRESSOR) 12.5 MG Q12HR PO Sennosides (Senna Lax 8.6 MG TABLET) 17.2 MG BEDTIME PO Calcium Chloride (CALCIUM CHLORIDE) 1 GM ASDIR PRN IV Dextrose/Water (DEXTROSE 10% IN WATER) 125 ML ASDIR PRN IV (CKD) Dextrose/Water (DEXTROSE 10% IN WATER) 250 ML ASDIR PRN IV (CKD) Insulin Human Regular (HumuLIN R) 100 UNIT ASDIR IV (CKD) Sodium Chloride (SODIUM CHLORIDE 0.9%) 99 ML Magnesium Sulfate (MAGNESIUM SULFATE 4GM/SWFI 100ML) 100 ML ASDIR PRN IV Magnesium Sulfate (MAGNESIUM SULFATE 2GM/SWFI 50ML) 50 ML ASDIR PRN IV Magnesium Sulfate/Dextrose (MAGNESIUM SULFATE 1GM/D5W 100ML) 100 ML ASDIR PRN IV Nitroglycerin/Dextrose (NITROGLYCERIN 50,000MCG/D5W 250ML) 250 ML ASDIR IV Norepinephrine Bitartrate (NOREPINEPHRINE 8 MG/NS 250 ML) 250 ML TITRATE IV Ondansetron HCl (ZOFRAN) 4 MG Q6H PRN PRN IV Potassium Chloride (KCL 20MEQ/SWFI 100ML) 100 ML ASDIR PRN IV Sodium Bicarbonate (SODIUM BICARBONATE) 50 MEQ ASDIR PRN IV Sodium Chloride (SODIUM CHLORIDE 0.9%) 1,000 ML .Q20H IV Sodium Chloride (SODIUM CHLORIDE 0.9%) 250 ML Q24H IV Lactulose (LACTULOSE) 10 GM DAILY PRN PRN PO Thiamine HCl (THIAMINE HCL) 100 MG DAILY PO Dietitian nutrition assessment The data set between the solid lines has been imported from the dietitian's assessment. BMI Calculated: 36.7 Nutrition related diagnosis: Nutrition diagnosis details: Nutrition problem: Increased nutrient needs Nutrition etiology: Acute illness Nutrition signs and symptoms: CARDIAC POST-OP Nutrition prescription: 1. CARDIAC CCD5 DIET. 2. GLUCERNA 4 PER DAY. 3. HEALTHY HEART CARBOHYDRATE CONTROLLED EDUCATION/HANDOUTS PROVIDED. Dietitian name: Annia Jeffery, DIET Assessment completed: 06/17/23 Physical Exam General appearance: alert, awake, oriented HEENT: atraumatic, normocephalic Neck: full range of motion Cardiovascular: normal S1/S2, regular rate rhythm Respiratory: symmetric expansion, no distress Abdomen: distended (mildly), non-tender, normal bowel sounds, soft, no guarding Extremities: moves all Musculoskeletal: normal inspection Neuro/BUSINESS AREA MANAGER: alert, normal speech Skin: dry, intact, normal color Psychiatry: normal affect, normal judgment/insight, normal mood Results Findings/Data: Laboratory Tests 06/18/23521: [Embedded Image Not Available] Laboratory Tests 06/17 06/17 06/17 06/16 06/16 1103 0721 0522 1959 1611 Chemistry Sodium (134 - 147 mEq/L) 131 L Potassium (3.4 - 5.0 mEq/L) 3.6 Chloride (100 - 108 mEq/L) 95 L Carbon Dioxide (21 - 33 mEq/l) 29 Anion Gap (0 - 20) 11 BUN (7 - 25 mg/dL) 80 H Creatinine (0.6 - 1.3 mg/dL) 1.8 H Glomerular Filtr Rate (80 - 90) 40.5 L Glucose (77 - 141 mg/dL) 275 H POC Glucose (70 - 110 MG/DL) 249 H 244 H 219 H 230 H Calcium (8.0 - 10.5 mg/dL) 7.9 L Magnesium (1.6 - 2.6 mg/dL) 2.46 Total Bilirubin (0.0 - 1.0 mg/dL) 0.70 Direct Bilirubin (0.1 - 0.3 MG/DL) 0.30 Indirect Bilirubin (MG/DL) 0.40 AST (8 - 34 IUnit/L) 57 H ALT (10 - 49 IUnit/L) 62 H Total Alk Phosphatase (20 - 125 IUnit/L) 208 H Total Protein (6.4 - 8.2 g/dL) 6.3 L Albumin (3.4 - 5.0 g/dL) 2.90 L Laboratory Tests 06/17 521 Hematology WBC (4.5 - 11.0 x10 3/uL) 9.4 RBC (4.00 - 5.60 x10 6/uL) 3.10 L Hgb (12.5 - 16.9 g/dL) 9.4 L Hct (37.5 - 50.7 %) 28.8 L MCV (81.0 - 99.0 fL) 92.9 MCH (27.0 - 33.0 pg) 30.3 MCHC (33.0 - 37.0 g/dL) 32.6 L RDW (11.5 - 14.5 %) 14.4 Plt Count (150 - 400 x10 3/uL) 166 MPV (7.0 - 9.0 fL) 11.3 H Neut % (Auto) (56.0 - 77.0 %) 73.8 Lymph % (Auto) (14.0 - 32.0 %) 5.7 L [place] % (Auto) (4.8 - 9.0 %) 13.6 H Eos % (Auto) (0.3 - 3.7 %) 2.4 Baso % (Auto) (0.0 - 2.0 %) 0.5 Neut # (Auto) (2.0 - 7.6 x10 3/uL) 6.93 Lymph # (Auto) (1.0 - 3.8 x10 3/uL) 0.54 L [place] # (Auto) (0.1 - 0.8 x10 3/uL) 1.28 H Eos # (Auto) (0.0 - 0.2 x10 3/uL) 0.23 H Baso # (Auto) (0.0 - 0.2 x10 3/uL) 0.05 Abs Immat Gran (auto) (0.00 - 0.03 x10 3/uL) 0.38 H Immature Gran % (0.0 - 2.0 %) 4.0 H Nucleated RBC % (0 - 0 %) 0.0 Nucleated RBCs # (Man) (0.0 - 0.1 x10 3/uL) 0.00 Radiology Data: Recent Impressions: ULTRASOUND - DUP VEIN BETH 06/16 4644 Report Impression - Status: SIGNED Entered: 06/17/2023 1321 IMPRESSION: 1. No evidence of deep venous thrombosis. Impression By: [email or web address] - Erick Hoagn M.D. Results: labs reviewed, vital signs reviewed Diagnosis, Assessment Plan Problem List/A P: 1. Cirrhosis 2. Hepatitis C 3. Elevated LFTs 4. Alcohol dependence 5. CHF exacerbation Free Text A P: (06/03/2023) MELD score of 7, estimated 3-month mortality of 1.9% S/p CABG x 3, EVH, ALAA, PP, BM. Seen eating. at bedside. No acute complaints Recommendations: 1. Monitor LFTs; avoid further hepatotoxic medications; improving 2. INR 1.1 3. Abdominal ultrasound revealed cirrhosis with splenomegaly, cholelithiasis, and nonspecific gallbladder wall thickening likely secondary to chronic liver disease as patient does not express abdominal pain at this time- repeat us shows similar findings 4. History of hepatitis C, PCR - not detected 5. Daily alcohol use, cont. MVI and thiamine; encouraged cessation 6. Agree with current bowel regimen 7. Further recommendations may follow Consultants: cardiology, cardiovascular surgery Attestations Attestation needed: supervising physician Rigoberto Jarrell 06/18/23 2232: Attestations Physician Attestation Agree w/findings plan: Agree with the findings and plan as documented by RAHUL Tobias. at 1433 at 2232 RPT #:[id number] END OF REPORT [facility] 2023-06-18 10:19:00 [facility] Rehab Progress Note REPORT#:[id number] REPORT STATUS: Signed REPORT INITIALIZATION DATE:06/18/23 TIME: 1019 PATIENT: MINDY CARTER UNIT #: [id number] [address]: [address] : [birth year] AGE: 67 SEX: M ATTEND: Talat Lord MD ADM AUTHOR: Britta Herndon PA-C REPT SERVICE DT/TIME: 06/18/23 1019 * ALL edits or amendments must be made on the electronic/computer document * Subjective Chief complaint: Pt seen and examined. No acute distress. He is sitting EOB in no acute distress. States slept sitting up with his head on his tray table due to SOB/cough with lying. Objective General VS: Vital Signs: Date Time Temp Pulse Resp B/P B/P Pulse O2 O2 Flow FiO2 Mean Ox Delivery Rate 06/17 0901 Nasal 3 96 cannula 06/17 0720 98.1 70 18 120/90 0.0 98 06/17 0600 71 23 124/70 91 90 06/17 0501 69 34 127/57 82 95 06/17 0344 97.9 69 18 108/59 0.0 98 Nasal cannula 06/17 0300 69 21 108/59 79 97 06/17 0200 69 27 118/64 85 100 06/17 0000 68 20 113/65 84 95 06/16 2315 97.9 69 18 111/60 0.0 97 Nasal cannula 06/16 2100 71 28 108/57 76 93 06/16 2048 92 Nasal 1 cannula 06/16 2013 98.2 75 18 120/57 0.0 92 Nasal cannula 06/17 1999 Nasal 1 cannula 06/16 2000 74 37 120/57 82 93 06/16 1900 73 32 119/62 85 93 06/16 1800 72 32 118/62 85 95 06/16 1700 67 20 116/62 85 95 06/16 1615 97.5 69 23 97/57 0.0 96 Nasal cannula 06/16 1600 71 29 97/57 71 92 06/16 1501 73 33 121/63 86 95 06/16 1500 74 33 95 06/16 1430 High flow 2 nasal cannula 06/16 1400 71 28 94 06/16 1157 96 High flow 2 nasal cannula PATIENT WEIGHT: Weight (lb): 248 Weight (oz): 10.9 Weight (kg): 112.800 Medications: Active Meds + DC'd Last 24 Hrs Insulin Glargine (Semglee) 30 UNIT DAILY SUBQ Atorvastatin Calcium (LIPITOR) 40 MG 2100 PO Oxycodone HCl (ROXICODONE) 5 MG Q4H PRN PRN PO Oxycodone HCl (ROXICODONE) 10 MG Q4H PRN PRN PO Lactulose (LACTULOSE) 20 GM ONCE ONE PO (DC) Insulin Human Lispro (HUMALOG) 0 AC HS SUBQ Furosemide (LASIX 40 mg/4 mL INJECTION) 40 MG BID 9A 5P IV Insulin Glargine (Semglee) 30 UNIT DAILY SUBQ (DC) Fentanyl Citrate (SUBLIMAZE) 100 MCG PACU Q10MIN PRN PRN IV Fentanyl Citrate (SUBLIMAZE) 50 MCG PACU Q10MIN PRN PRN IV Hydralazine HCl (APRESOLINE) 5 MG PACU Q10MIN PRN PRN IV Hydrocodone Bitart/Acetaminophen (NORCO 5/325) 1 TAB PACU ONCE PO (CKD) Hydromorphone HCl (DILAUDID) 1 MG PACU Q10MIN PRN PRN IV Hydromorphone HCl (DILAUDID) 0.5 MG PACU Q5MIN PRN PRN IV Insulin Human Lispro (HUMALOG) 0 PACU ONCE PRN SUBQ Labetalol HCl (labetalol) 5 MG PACU Q10MIN PRN PRN IV Meperidine HCl (MEPERIDINE HCL/PF) 12.5 MG PACU ONCE PRN IV Morphine Sulfate (morphine SULFATE) 2 MG PACU Q10MIN PRN PRN IV Ondansetron HCl (ZOFRAN) 4 MG PACU ONCE PRN IV Ropivacaine (NAROPIN 0.5% 150 MG/30mL) 150 MG ASDIR PRN LOCAL Tramadol HCl (ULTRAM) 50 MG PACU ONCE PO (CKD) Insulin Glargine (Semglee) 40 UNIT BEDTIME SUBQ Ipratropium [place] (ATROVENT) 500 MCG RTQ2H PRN PRN INH Cyanocobalamin (Vitamin B-12 500 mcg tab) 500 MCG DAILY PO Ferrous Sulfate (FERROUS SULFATE) 325 MG DAILY PO Bisacodyl (DULCOLAX) 10 MG ONCE PRN RECTAL Magnesium Hydroxide (MILK OF MAGNESIA) 30 ML ONCE PRN PO Vasopressin (VASOSTRICT 20 Unit/NS 100ML) 100 ML ASDIR IV (CKD) Dopamine HCl/Dextrose (DOPamine 400MG/D5W 250ML) 250 ML ASDIR IV Epinephrine (ADRENALIN CHLORIDE) 4 MG ASDIR IV Sodium Chloride (SODIUM CHLORIDE 0.9%) 246 ML Melatonin (Melatonin) 6 MG BEDTIME PRN PO Clopidogrel Bisulfate (Plavix) 75 MG DAILY PO Polyethylene Glycol (MIRALAX) 17 GM DAILY PO Pantoprazole (PROTONIX) 40 MG DAILY@0600 PO Milrinone Lactate/Dextrose (MILRINONE 20MG/D5W 100ML) 100 ML TITRATE IV (CKD) Aspirin (ASPIRIN) 81 MG DAILY PO Amiodarone HCl (CORDARONE) 200 MG TID PO Docusate Sodium (COLACE) 100 MG BID PO Metoprolol Tartrate (LOPRESSOR) 12.5 MG Q12HR PO Sennosides (Senna Lax 8.6 MG TABLET) 17.2 MG BEDTIME PO Calcium Chloride (CALCIUM CHLORIDE) 1 GM ASDIR PRN IV Dextrose/Water (DEXTROSE 10% IN WATER) 125 ML ASDIR PRN IV (CKD) Dextrose/Water (DEXTROSE 10% IN WATER) 250 ML ASDIR PRN IV (CKD) Insulin Human Regular (HumuLIN R) 100 UNIT ASDIR IV (CKD) Sodium Chloride (SODIUM CHLORIDE 0.9%) 99 ML Magnesium Sulfate (MAGNESIUM SULFATE 4GM/SWFI 100ML) 100 ML ASDIR PRN IV Magnesium Sulfate (MAGNESIUM SULFATE 2GM/SWFI 50ML) 50 ML ASDIR PRN IV Magnesium Sulfate/Dextrose (MAGNESIUM SULFATE 1GM/D5W 100ML) 100 ML ASDIR PRN IV Nitroglycerin/Dextrose (NITROGLYCERIN 50,000MCG/D5W 250ML) 250 ML ASDIR IV Norepinephrine Bitartrate (NOREPINEPHRINE 8 MG/NS 250 ML) 250 ML TITRATE IV Ondansetron HCl (ZOFRAN) 4 MG Q6H PRN PRN IV Potassium Chloride (KCL 20MEQ/SWFI 100ML) 100 ML ASDIR PRN IV Sodium Bicarbonate (SODIUM BICARBONATE) 50 MEQ ASDIR PRN IV Sodium Chloride (SODIUM CHLORIDE 0.9%) 1,000 ML .Q20H IV Sodium Chloride (SODIUM CHLORIDE 0.9%) 250 ML Q24H IV Lactulose (LACTULOSE) 10 GM DAILY PRN PRN PO Thiamine HCl (THIAMINE HCL) 100 MG DAILY PO Functional Progress Functional progress: ne on one supervision with cueing and assistance provided to ensure proper performance of all activities. Yes Precautions: STERNAL Cardiac Fall Oxygen Desaturation Pre- Gait Mobility Y/N: Yes Safety addressed through use of: Verbal Cues Tactile Cues Gait Device WC HANDLES WC TO FOLLOW Weightbearing: No Restriction Ambulation Distance: 400FT TOTAL 150FT 250FT Progression: Forward Assistance Level: Minimal Assistance Gait Deviations: Decreased Ember Lacks Heel Strike - Bilat Effects of Treatment: Balance Improved Tye of care decreased Cardio tolerance improved Function Improved Tolerance increased Post Treatment Precautions: In Chair Family at Bedside Call Light in Reach Nursing Notified O2 On Pulse OX in Place SCD in Place Telephone in Reach Review Plan of Care: Yes PT charges: Gait Training [id number] Gait Cmt: PATIENT SITTING IN RECLINER CHAIR UPON ARRIVAL AND REPORTS OF NO PAIN AND AGREEABLE TO PT. PATIENT ON 2L OF O2 AND AMBULATED WITH WC HANDLES AND WC TO FOLLOW 150FT AND 250FT REQUIRING ONE SEATED REST BREAK DUE TO SOB AND FATIGUE. PATIENT AMBULATED WITH CGA FOR SAFETY WITH WC HANDLES AND NO ADVERSE EVENTS NOTED. PATIENT RETURNED BACK TO RECLINER AND LEFT WITH ALL NEEDS. RN NOTIFIED AND AWARE OF TREATMENT SESSION. If this is the patient's last treatment, this entry serves as the discharge summary: Y Start Time: 1111 Stop Time: 1120 Treatment Time: ( minutes) 0:09 Completed by: Joe Paul . BED MOBILITY: No TRANSFERS: Yes Bed to/from chair: Not Tested Sit to/from stand: Minimal Assistance CARDIO-RESPIRATORY IMPAIRMENT Items determined to be OUTSIDE the Functional Limits are as follows: . Mobility: How much help from another person does the patient currently need: Moving from lying on your back to sitting on the side of a flat bed . Physical Therapy: Plan of Care PT Problem List: 1 Impaired Functional Mobil 4 Impaired Strength/ROM 5 Impaired Activity Jody. 6 Impaired ADL 8 Impaired Gait 9 Pain Short Term Goals TARGET DATE GOAL MET 1: PATIENT WILL BE ABLE TO PERFORM BED MOBILITY MOD : 06/26/23 ST GL1: N I. 2: PATIENT WILL BE ABLE TO PERFORM BED<>CHAIR Physical Exam General appearance: alert, awake HEENT: anicteric, mucosal membranes moist, sclera clear Neck: supple, no JVD Cardiovascular: regular rate rhythm, S1/S2, no murmur Respiratory: bibasilar crackles, diminished breath sounds (right lower base), aerating well Abdomen: non-distended, soft, non-tender Skin: incision (C/D/I), dry, intact, no rash Musculoskeletal - general: Musculoskeletal - general: joints normal, range of motion normal, no atrophy Results Findings/Data: Laboratory Tests: 06/17 06/17 06/16 06/16 06/16 0721 0522 1959 1611 1200 Chemistry Sodium (134 - 147 mEq/L) 131 L Potassium (3.4 - 5.0 mEq/L) 3.6 Chloride (100 - 108 mEq/L) 95 L Carbon Dioxide (21 - 33 mEq/l) 29 Anion Gap (0 - 20) 11 BUN (7 - 25 mg/dL) 80 H Creatinine (0.6 - 1.3 mg/dL) 1.8 H Glomerular Filtr Rate (80 - 90) 40.5 L Glucose (77 - 141 mg/dL) 275 H POC Glucose (70 - 110 MG/DL) 244 H 219 H 230 H 305 H Calcium (8.0 - 10.5 mg/dL) 7.9 L Magnesium (1.6 - 2.6 mg/dL) 2.46 Total Bilirubin (0.0 - 1.0 mg/dL) 0.70 Direct Bilirubin (0.1 - 0.3 MG/DL) 0.30 Indirect Bilirubin (MG/DL) 0.40 AST (8 - 34 IUnit/L) 57 H ALT (10 - 49 IUnit/L) 62 H Total Alk Phosphatase (20 - 125 IUnit/L) 208 H Total Protein (6.4 - 8.2 g/dL) 6.3 L Albumin (3.4 - 5.0 g/dL) 2.90 L Hematology WBC (4.5 - 11.0 x10 3/uL) 9.4 RBC (4.00 - 5.60 x10 6/uL) 3.10 L Hgb (12.5 - 16.9 g/dL) 9.4 L Hct (37.5 - 50.7 %) 28.8 L MCV (81.0 - 99.0 fL) 92.9 MCH (27.0 - 33.0 pg) 30.3 MCHC (33.0 - 37.0 g/dL) 32.6 L RDW (11.5 - 14.5 %) 14.4 Plt Count (150 - 400 x10 3/uL) 166 MPV (7.0 - 9.0 fL) 11.3 H Neut % (Auto) (56.0 - 77.0 %) 73.8 Lymph % (Auto) (14.0 - 32.0 %) 5.7 L [place] % (Auto) (4.8 - 9.0 %) 13.6 H Eos % (Auto) (0.3 - 3.7 %) 2.4 Baso % (Auto) (0.0 - 2.0 %) 0.5 Neut # (Auto) (2.0 - 7.6 x10 3/uL) 6.93 Lymph # (Auto) (1.0 - 3.8 x10 3/uL) 0.54 L [place] # (Auto) (0.1 - 0.8 x10 3/uL) 1.28 H Eos # (Auto) (0.0 - 0.2 x10 3/uL) 0.23 H Baso # (Auto) (0.0 - 0.2 x10 3/uL) 0.05 Abs Immat Gran (auto) (0.00 - 0.03 0.38 H x10 3/uL) Immature Gran % (0.0 - 2.0 %) 4.0 H Nucleated RBC % (0 - 0 %) 0.0 Nucleated RBCs # (Man) (0.0 - 0.1 0.00 x10 3/uL) Radiology data: Recent Impressions: ULTRASOUND - DUP VEIN BETH 06/16 1454 Report Impression - Status: SIGNED Entered: 06/17/2023 1511 IMPRESSION: 1. No evidence of deep venous thrombosis. Impression By: [email or web address] Frandy Hogan M.D. Diagnosis, Assessment Plan Problem List/A P: 1. Edema 2. Hepatitis C 3. Cirrhosis 4. Elevated LFTs 5. Alcohol dependence 6. NSTEMI (non-ST elevated myocardial infarction) 7. CAD (coronary artery disease) 8. S/P CABG x 3 9. Shock 10. Hyponatremia 11. Acute on chronic renal failure 12. Diabetes type 2, controlled Free Text A P: PLan: PT/OT consulted. He will benefit from IRF once medically stable. He has been followed by cardiology, nephrology and cardiothoracic surgery. He has been undergoing IV Lasix, I just went on insulin given hyperglycemia with underlying diabetes type 2. Monitor volume status. PT OT to work on bed mobility, transfers, progressive gait, ADLs, balance and etc. while maintaining sternal precautions. IRF recommended. His is wanting [facility]. 06/17: Pt seen and examined. Referral has been sent off to IRF. OO daily. SOB and coughing with lying likley secondary to fluid. Edme apresent to BLE. Did discuss with him about elevating legs in between sitting EOB. Consultants: cardiology, cardiovascular surgery Rehab attestation: Face to face exam completed. Treatment plan discussed with patient. at 2326 RPT #:[id number] END OF REPORT [facility] 2023-06-18 09:49:00 [facility] ([facility]) Cardiology Progress Note REPORT#:[id number] REPORT STATUS: Signed REPORT INITIALIZATION DATE:06/18/23 TIME: 948 PATIENT: MINDY CARTER UNIT #: [id number] ROOM/BED: [place] [address] : 54 AGE: 67 SEX: M ATTEND: Kumar Garcia MD ADM AUTHOR: Clayton Nathan MD REPT SERVICE DT/TIME: 06/18/23 0949 * ALL edits or amendments must be made on the electronic/computer document * Subjective Free Text Subj Notes Free Text Subj Notes: Cardiology progress note Date of service: 06/18/2023 Chief complaint/reason for consult: NSTEMI Patient seen and examined, chart reviewed, questions/concerns addressed with RN. Current medication and vitals reviewed. HPI and interval Hx: Creatinine improving adequate urine output Subjective: No chest pain today. Much better able to walk around Objective: Vital Signs Date Temp Pulse Resp B/P B/P Mean Pulse Ox FiO2 06/16-06/17 97.5-98.2 67-75 18-37 97-127/57-90 0.0-91 90-100 GEN: Alert and cooperative, no acute distress. HEENT: NC/AT, EOMI CARD: RRR, normal S1/S2 LUNGS: CTA w/o added sounds, GBAE. Assessment, Impression and medical decision making: -NSTEMI -Acute on chronic diastolic congestive heart -Morbid obesity -Hypertension, hyperlipidemia, type 2 diabetes mellitus -NIYA Plan/recommendation: -Status post CABG and left atrial pended amputation -Continue with IV diuresis per nephrology -Continue with aspirin Plavix, no statin due to liver cirrhosis, low-dose beta- blockers -Anticipate discharge in the next 24 hours. at 1246 RPT #:[id number] END OF REPORT [facility] 2023-06-18 05:45:00 [facility] ([facility]) Cardiothoracic Surgery Prog REPORT#:[id number] REPORT STATUS: Signed REPORT INITIALIZATION DATE:06/18/23 TIME: 544 PATIENT: MINDY CARTER UNIT #: [id number] ROOM/BED: [place] [address] : 54 AGE: 67 SEX: M ATTEND: Bladimir Morse DO ADM AUTHOR: Johnna Pablo Physic REPT SERVICE DT/TIME: 06/18/23 0545 * ALL edits or amendments must be made on the electronic/computer document * General Post-op: day 7 Status post: 06/11/23 CABG x 3 (COSTA-LAD, SVG-Diag, SVG-OM) EVH (RGSV) ALAA PP Subjective Chief complaint: Postop cabg Review of Systems Constitutional: Reports: fatigue. Skin: Denies: abrasion, bruising, contusion. Allergy/Immun: Denies: allergic reaction, anaphylaxis, hives. Respiratory: Denies: HERRING (dyspnea on exertion). Cardiovascular: Denies: chest pain, palpitations. Heme: Denies: adenopathy, bleeding, bruising. Endocrine: Denies: cold intolerance, heat intolerance, polydipsia. Neuro: Denies: confusion, dizziness, seizure, syncope. All systems rev neg: except as marked Objective General VS/I O Last Documented: Result Date Time Pulse Ox 98 06/17 0344 B/P 108/59 06/17 0344 B/P Mean 0.0 06/17 0344 O2 Delivery Nasal cannula 06/17 0344 Temp 97.9 06/17 0344 Pulse 69 06/17 0344 Resp 18 06/17 0344 O2 Flow Rate 1 06/16 2048 FiO2 32 06/16 0433 24 hour I O ending at 0700: 06/17 0700 06/16 1900 Intake Total 200 1157 Output Total 300 1805 Balance -100 -648 Intake, Oral 200 920 Intake, Oral 237 Supplement Number 1 Bowel Movements Output, Urine 300 1805 Patient 112.8 kg Weight Weight Standing scale Measurement Method PATIENT WEIGHT: Weight (lb): 248 Weight (oz): 10.9 Weight (kg): 112.800 Physical Exam General appearance: alert, awake, oriented HEENT: anicteric, mucosal membranes moist, pupils reactive to light Neck: full range of motion, non-tender Cardiovascular: normal heart sounds, regular rate rhythm Respiratory: aerating well, symmetric expansion Abdomen: soft, non-tender Genitourinary: marques Extremities: dry, moves all Musculoskeletal: no muscle spasm Skin: dry, intact Psychiatry: normal affect, normal mood Quality: Trauma Gen Surg Advanced Care Plan 65 or Older Discussed with: patient Discussion included: living will, power of defense attorney, code status Current Medications Current medication review: I attest that the foregoing medication list in the medical record is true, accurate, and complete to the best of my knowledge. VTE Prophylaxis - General VTE prophylaxis initiated: yes Diagnosis, Assessment Plan Hospital course to date: This is a 67-year-old gentleman with a past medical history of hypertension, hyperlipidemia, diabetes, neuropathy, alcohol use, liver cirrhosis, kidney disease, syncope who came to the hospital with shortness of breath and chest tightness for 2 days. Patient describes significant orthopnea and increasing edema in bilateral lower extremities that brought the patient to the hospital. Initial workup positive for mildly elevated troponin and elevated BNP and was diagnosed with NSTEMI and CHF exacerbation with acute hypoxic respiratory failure. Patient then underwent cardiac catheterization for elevated troponin. CV surgery was consulted for multivessel coronary artery disease found on angiogram. 1. multivessel disease -Patient underwent cardiac angiogram: Left main-proximal to mid 60 to 70% stenosis LAD-ostial LAD 90% stenosis Left circumflex-patent RCA-mild 30 to 40% mid stenosis EF 55 to 60% Wall motion is normal, grade 1 diastolic dysfunction, normal systolic function. Mitral valve: Moderately calcified with leaflet thickening. Moderate stenosis. Mild regurgitation. Aortic valve: Thickening and sclerosis 2. Liver disease -Patient recently diagnosed. Patient does not live local to [place]. Will consult gastroenterology to see patient. -EtOH cessation 3. Chronic kidney disease -Patient does not live local to [place]. Will consult nephrology to see patient. Patient will be presented at complex cardiology conference on Wednesday. Further recommendations to follow. 06/04/23 Patient in stable condition Labs and imaging reviewed Case presented at complex cardiology conference this morning and the team deemed patient will be best be suited with CABG. Preop workup ongoing Timing of surgery pending Plan of care discussed with patient and family. All questions were answered. 06/05/23 Patient doing well, denies chest pain Labs reviewed Pre op workup ongoing, pending vein mapping and carotid duplex On 4l nasal cannula, wean off oxygen as tolerated Incentive spirometer teaching Cardiac diet OOB to chair, ambulate Plan of care discussed with patient, all questions were answered. 06/06/23 Patient in stable condition Denies chest pain Wean off oxygen Encourage I-S use and deep breathing Tentatively plan for CABG in the upcoming week Plan of care discussed with patient, all questions were answered. 06/07/23 Patient seen and examined, denies chest pain Labs reviewed I-S use encourage, wean off oxygen as tolerated, on 2 L nasal cannula Tolerating diet Out of bed in chair, PT OT Timing of surgery pending Plan of care discussed with the patient, all questions were answered 06/08/23 Patient in stable condition Labs reviewed On room air, encourage I-S use Preop workup completed I will tentatively schedule him for surgery on Wednesday Plan of care discussed with patient, all questions were answered 06/09/23 Patient in stable condition Labs reviewed On room air, encourage I-S use Preop workup completed I will tentatively schedule him for surgery on Wednesday Plan of care discussed with patient, all questions were answered 06/10/23 Patient is stable condition, denies chest pain On room air Preop workup completed Plan for surgery on Wednesday-CABG and possible mitral valve I have discussed with the patient the operation, risk involved, calculated STS risk score, benefits, alternatives, and complicated. Patient acknowledges understanding and is willing to proceed. 06/11/23 CABG x 3 (COSTA-LAD, SVG-Diag, SVG-OM) EVH (RGSV) ALAA PP 06/12/23 POD 1 AAO x 3 Respiratory: on 10 L NC, wean as tolerated. Encourage IS. CT in place 325/196, leave in place, monitor outputs. Cardiac: Sinus rhythm. on levo 5, epi 2, Milrinone. GI: advance diet as tolerated. continue Bowel regimen. : Marques in place. Patient walked unit with PT DC Tylenol due to liver disease Patient was seen and examined at [facility]. Plan of care discussed with multidisciplinary team 06/13/23 POD 2 AAO x 3 Respiratory: on Bipap Encourage IS. Cardiac: Sinus rhythm. Pacing wires on standby, episode of hypotension, on levo @ 6, no response to dopamine for urine output GI: advance diet as tolerated. continue Bowel regimen. : Marques in place. Low urine output, start Lasix drip, vasopressin Plan to start Lasix drip. If no improvement in renal perfusion, patient will need CRRT. Patient was seen and examined at [facility]. Plan of care discussed with multidisciplinary team Nephrology following. Appreciate input Continue supportive care, 06/14/23 POD 3 AAOx3 Respiratory: Teleflex 60% Cardiac: Sinus rhythm, pacing wires on standby, levo at 2, vaso turned off this a.m. Continues on Lasix drip Urine output 1100 Chest tube drainage Abdominal ultrasound Evaluation limited by overlying bandage. Cirrhotic liver morphology. Cholelithiasis and distended gallbladder without sonographic features of acute cholecystitis. Will obtain bedside echo. Patient was seen and examined Dr. Martel. Continue supportive care Plan of care discussed with multidisciplinary team. 06/15/23 POD 4 AAOx3 Respiratory: On 2 L nasal cannula, wean as tolerated Cardiac: Sinus rhythm, pacing wires on standby, off pressor Urine output improved on Lasix drip, continue to monitor urine output DC left chest tube. Continue PT/OT, out of bed Patient was seen and examined Dr. Martel. Continue supportive care Plan of care discussed with multidisciplinary team. 06/17/23 POD 6 AAOx3 Respiratory: On 3 L NC Cardiac: Sinus rhythm, pacing wires on standby, off pressor monitor urine output. Continue PT/OT, out of bed Patient was seen and examined Dr. Martel. Continue supportive care Plan of care discussed with multidisciplinary team. Okay to CVN 1 continue PT/OT 06/18/23 POD 6 AAOx3 Respiratory: Cardiac: Sinus rhythm, pacing wires on standby, off pressor monitor urine output. Continue PT/OT, out of bed Patient was seen and examined Dr. Martel. Continue supportive care Consultants: cardiology, cardiovascular surgery at 1314 at 1016 RPT #:[id number] END OF REPORT [facility] 2023-06-17 15:38:00 [facility] Hospitalist Progress Note REPORT#:[id number] REPORT STATUS: Signed REPORT INITIALIZATION DATE:06/17/23 TIME: 1538 PATIENT: MINDY CARTER UNIT #: [id number] ROOM[place]ED: [facility] [place] : 54 AGE: 67 SEX: M ATTEND: Talat Lord MD ADM AUTHOR: Talat Lord MD REPT SERVICE DT/TIME: 06/17/23 8728 * ALL edits or amendments must be made on the electronic/computer document * Subjective Chief complaint: AT BS, PER , HE MAY NEED IRF BY REHAB EVAL HPI: This is a 67-year-old male with history of high blood pressure, hyperlipidemia, diabetes mellitus, syncope, neuropathy, alcohol use, liver cirrhosis, stage II CKD presents with shortness of breath that has been increasing since 2 days ago. Patient took extra dose of Aldactone and hydrochlorothiazide which did not help. Patient also reports chest tightness and is currently on 5 L of oxygen per nasal cannula. Patient says that he cannot lie down he gets short of breath when he lies down. He drinks whiskey about 3 shots a day. He has been having increasing edema in bilateral lower extremities. No headaches or dizziness. No other complaints elicited. Objective General VS/I O: Vital Signs: Date Time Temp Pulse Resp B/P B/P Pulse O2 O2 Flow FiO2 Mean Ox Delivery Rate 06/16 0800 98.5 06/16 0800 Nasal 2 cannula 06/16 0433 95 Nasal 3 32 cannula 06/16 0200 67 27 99/59 73 93 06/16 0100 67 21 104/56 73 95 06/16 0000 66 19 104/59 79 95 06/15 2300 66 27 100/59 78 94 06/15 2200 68 25 100/58 73 95 06/15 2111 93 Nasal 3 32 cannula 06/15 2100 72 23 111/58 79 96 06/15 2001 73 31 112/58 81 94 06/15 2000 97.9 06/16 1999 High flow 3 nasal cannula 06/15 1901 71 32 102/76 85 98 06/15 1801 71 34 121/59 83 98 06/15 1707 71 29 119/68 88 97 06/15 1600 72 28 104/69 82 95 24 hour I O ending at 0700: 06/16 0700 06/15 1900 Intake Total 135.10 923.00 Output Total 1095 2250 Balance -959.90 -1327.00 Intake, IV 85.10 173.00 Intake, Oral 50 750 Output, Urine 1095 2250 Patient 249 lb Weight Weight Standing scale Measurement Method PATIENT WEIGHT: Weight (lb): 248 Weight (oz): 10.9 Weight (kg): 112.800 Medications: Active Meds + DC'd Last 24 Hrs Insulin Glargine (Semglee) 30 UNIT DAILY SUBQ Atorvastatin Calcium (LIPITOR) 40 MG 2100 PO Insulin Human Lispro (HUMALOG) 0 AC HS SUBQ Insulin Glargine (Semglee) 10 UNIT ONCE ONE SUBQ (DC) Furosemide (LASIX 40 mg/4 mL INJECTION) 40 MG BID 9A 5P IV Insulin Glargine (Semglee) 30 UNIT DAILY SUBQ (DC) Potassium Chloride (POTASSIUM CHLORIDE 20MEQ TAB.ER) 20 MEQ ONCE ONE PO (DC) Potassium Chloride (POTASSIUM CHLORIDE 20MEQ TAB.ER) 40 MEQ ONCE ONE PO (DC) Insulin Glargine (Semglee) 20 UNIT DAILY SUBQ (DC) Fentanyl Citrate (SUBLIMAZE) 100 MCG PACU Q10MIN PRN PRN IV Fentanyl Citrate (SUBLIMAZE) 50 MCG PACU Q10MIN PRN PRN IV Hydralazine HCl (APRESOLINE) 5 MG PACU Q10MIN PRN PRN IV Hydrocodone Bitart/Acetaminophen (NORCO 5/325) 1 TAB PACU ONCE PO (CKD) Hydromorphone HCl (DILAUDID) 1 MG PACU Q10MIN PRN PRN IV Hydromorphone HCl (DILAUDID) 0.5 MG PACU Q5MIN PRN PRN IV Insulin Human Lispro (HUMALOG) 0 PACU ONCE PRN SUBQ Labetalol HCl (labetalol) 5 MG PACU Q10MIN PRN PRN IV Meperidine HCl (MEPERIDINE HCL/PF) 12.5 MG PACU ONCE PRN IV Morphine Sulfate (morphine SULFATE) 2 MG PACU Q10MIN PRN PRN IV Ondansetron HCl (ZOFRAN) 4 MG PACU ONCE PRN IV Ropivacaine (NAROPIN 0.5% 150 MG/30mL) 150 MG ASDIR PRN LOCAL Tramadol HCl (ULTRAM) 50 MG PACU ONCE PO (CKD) Insulin Glargine (Semglee) 40 UNIT BEDTIME SUBQ Ipratropium [place] (ATROVENT) 500 MCG RTQ2H PRN PRN INH Cyanocobalamin (Vitamin B-12 500 mcg tab) 500 MCG DAILY PO Ferrous Sulfate (FERROUS SULFATE) 325 MG DAILY PO Bisacodyl (DULCOLAX) 10 MG ONCE PRN RECTAL Magnesium Hydroxide (MILK OF MAGNESIA) 30 ML ONCE PRN PO Furosemide (LASIX) 240 MG Q24H IV (DC) Sodium Chloride (SODIUM CHLORIDE 0.9%) 24 ML Vasopressin (VASOSTRICT 20 Unit/NS 100ML) 100 ML ASDIR IV (CKD) Dopamine HCl/Dextrose (DOPamine 400MG/D5W 250ML) 250 ML ASDIR IV Epinephrine (ADRENALIN CHLORIDE) 4 MG ASDIR IV Sodium Chloride (SODIUM CHLORIDE 0.9%) 246 ML Melatonin (Melatonin) 6 MG BEDTIME PRN PO Clopidogrel Bisulfate (Plavix) 75 MG DAILY PO Polyethylene Glycol (MIRALAX) 17 GM DAILY PO Pantoprazole (PROTONIX) 40 MG DAILY@0600 PO Milrinone Lactate/Dextrose (MILRINONE 20MG/D5W 100ML) 100 ML TITRATE IV (CKD) Aspirin (ASPIRIN) 81 MG DAILY PO Amiodarone HCl (CORDARONE) 200 MG TID PO Docusate Sodium (COLACE) 100 MG BID PO Metoprolol Tartrate (LOPRESSOR) 12.5 MG Q12HR PO Sennosides (Senna Lax 8.6 MG TABLET) 17.2 MG BEDTIME PO Calcium Chloride (CALCIUM CHLORIDE) 1 GM ASDIR PRN IV Dextrose/Water (DEXTROSE 10% IN WATER) 125 ML ASDIR PRN IV (CKD) Dextrose/Water (DEXTROSE 10% IN WATER) 250 ML ASDIR PRN IV (CKD) Insulin Human Regular (HumuLIN R) 100 UNIT ASDIR IV (CKD) Sodium Chloride (SODIUM CHLORIDE 0.9%) 99 ML Magnesium Sulfate (MAGNESIUM SULFATE 4GM/SWFI 100ML) 100 ML ASDIR PRN IV Magnesium Sulfate (MAGNESIUM SULFATE 2GM/SWFI 50ML) 50 ML ASDIR PRN IV Magnesium Sulfate/Dextrose (MAGNESIUM SULFATE 1GM/D5W 100ML) 100 ML ASDIR PRN IV Nitroglycerin/Dextrose (NITROGLYCERIN 50,000MCG/D5W 250ML) 250 ML ASDIR IV Norepinephrine Bitartrate (NOREPINEPHRINE 8 MG/NS 250 ML) 250 ML TITRATE IV Ondansetron HCl (ZOFRAN) 4 MG Q6H PRN PRN IV Oxycodone HCl (ROXICODONE) 5 MG Q4H PRN PRN PO (DC) Oxycodone HCl (ROXICODONE) 10 MG Q4H PRN PRN PO (DC) Potassium Chloride (KCL 20MEQ/SWFI 100ML) 100 ML ASDIR PRN IV Sodium Bicarbonate (SODIUM BICARBONATE) 50 MEQ ASDIR PRN IV Sodium Chloride (SODIUM CHLORIDE 0.9%) 1,000 ML .Q20H IV Sodium Chloride (SODIUM CHLORIDE 0.9%) 250 ML Q24H IV Lactulose (LACTULOSE) 10 GM DAILY PRN PRN PO Thiamine HCl (THIAMINE HCL) 100 MG DAILY PO Physical Exam General appearance: chronically ill appearing, alert, awake Head/Eyes: WEARING EYEGLASSES, SHAVED HEAD Neck: normal thyroid, no JVD Cardiovascular: normal heart sounds, regular rate rhythm, no gallop, no murmur , no rub Respiratory: hypoxia, on oxygen Abdomen: non-tender, normal bowel sounds, soft Extremities: 3+ PRETIBIAL EDEMA Musculoskeletal: normal inspection Neuro/BUSINESS AREA MANAGER: alert, oriented X 3, CNII-XII intact Skin: dry, intact, no rash Psychiatry: normal affect Results Findings/Data: Laboratory Tests 06/16 0432 Blood Gas Puncture Site R Brach O2 Saturation (90 - 100 %) 95.4 ABG pH (7.35 - 7.45) 7.450 ABG pCO2 (35.0 - 45 mmHg) 39.6 ABG pO2 (80 - 100.0 mmHg) 73.0 L ABG PO2/FiO2 Ratio (mm/Hg) 228.10 ABG HCO3 (22.0 - 26.0 MMOL/L) 27.6 H ABG Total CO2 28.9 ABG Base Excess (-4.0 - 4.0 MMOL/L) 3.6 Mabel Test Positive Temperature (F) 98 O2 Delivery Device Cannula FiO2 (%) 32.0 Laboratory Tests 06/16 06/16 06/16 06/16 06/16 1200 0750 0650 0321 0320 Chemistry Sodium (134 - 147 mEq/L) 129 L Potassium (3.4 - 5.0 mEq/L) 3.9 Chloride (100 - 108 mEq/L) 96 L Carbon Dioxide (21 - 33 mEq/l) 26 Anion Gap (0 - 20) 10 BUN (7 - 25 mg/dL) 71 H Creatinine (0.6 - 1.3 mg/dL) 1.9 H Glomerular Filtr Rate (80 - 90) 38.0 L Glucose (77 - 141 mg/dL) 250 H POC Glucose (70 - 110 MG/DL) 305 H 127 H 131 H 258 H Calcium (8.0 - 10.5 mg/dL) 8.0 Magnesium (1.6 - 2.6 mg/dL) 2.64 H 06/16 06/16 06/15 06/15 06/15 0320 0116 2214 2212 4 Chemistry Sodium (134 - 147 mEq/L) 129 L Potassium (3.4 - 5.0 mEq/L) 4.1 Chloride (100 - 108 mEq/L) 96 L Carbon Dioxide (21 - 33 mEq/l) 24 Anion Gap (0 - 20) 13 BUN (7 - 25 mg/dL) 67 H Creatinine (0.6 - 1.3 mg/dL) 1.9 H Glomerular Filtr Rate (80 - 90) 38.0 L Glucose (77 - 141 mg/dL) 297 H POC Glucose (70 - 110 MG/DL) 287 H 275 H Calcium (8.0 - 10.5 mg/dL) 8.2 Ionized Calcium Leanne (1.09 - 1.30 1.01 L MMOL/L) Magnesium (1.6 - 2.6 mg/dL) 2.61 H Total Bilirubin (0.0 - 1.0 mg/dL) 0.70 Direct Bilirubin (0.1 - 0.3 MG/DL) 0.30 Indirect Bilirubin (MG/DL) 0.40 AST (8 - 34 IUnit/L) 80 H ALT (10 - 49 IUnit/L) 81 H Total Alk Phosphatase (20 - 125 IUnit/L) 190 H Total Protein (6.4 - 8.2 g/dL) 6.1 L Albumin (3.4 - 5.0 g/dL) 2.90 L 06/15 Chemistry POC Glucose (70 - 110 MG/DL) 302 H 250 H Laboratory Tests 06/16 0320 Hematology WBC (4.5 - 11.0 x10 3/uL) 10.2 RBC (4.00 - 5.60 x10 6/uL) 3.08 L Hgb (12.5 - 16.9 g/dL) 9.3 L Hct (37.5 - 50.7 %) 28.2 L MCV (81.0 - 99.0 fL) 91.6 MCH (27.0 - 33.0 pg) 30.2 MCHC (33.0 - 37.0 g/dL) 33.0 RDW (11.5 - 14.5 %) 14.2 Plt Count (150 - 400 x10 3/uL) 166 MPV (7.0 - 9.0 fL) 11.9 H Neut % (Auto) (56.0 - 77.0 %) 76.3 Lymph % (Auto) (14.0 - 32.0 %) 4.8 L [place] % (Auto) (4.8 - 9.0 %) 14.1 H Eos % (Auto) (0.3 - 3.7 %) 2.3 Baso % (Auto) (0.0 - 2.0 %) 0.4 Neut # (Auto) (2.0 - 7.6 x10 3/uL) 7.80 H Lymph # (Auto) (1.0 - 3.8 x10 3/uL) 0.49 L [place] # (Auto) (0.1 - 0.8 x10 3/uL) 1.44 H Eos # (Auto) (0.0 - 0.2 x10 3/uL) 0.24 H Baso # (Auto) (0.0 - 0.2 x10 3/uL) 0.04 Abs Immat Gran (auto) (0.00 - 0.03 x10 3/uL) 0.21 H Immature Gran % (0.0 - 2.0 %) 2.1 H Nucleated RBC % (0 - 0 %) 0.4 H Nucleated RBCs # (Man) (0.0 - 0.1 x10 3/uL) 0.04 Radiology data: Recent Impressions: RADIOLOGY - XR CHEST 1 V 06/16 0625 Report Impression - Status: SIGNED Entered: 06/17/2023 0828 IMPRESSION: No significant interval change. Impression By: [email or web address] - Orlando Baez M.D. ULTRASOUND - DUP VEIN BETH 06/16 4652 Report Impression - Status: SIGNED Entered: 06/17/2023 9797 IMPRESSION: 1. No evidence of deep venous thrombosis. Impression By: [email or web address] - Erick Hogan M.D. Diagnosis, Assessment Plan Consultants: cardiology, cardiovascular surgery Free Text DxA P Notes Free text DxA P notes: VOLUME OL WITH Shortness of breath/hypoxia/3+ LEG EDEMA - CONT LASIX GTT, UF BY HD On 8 L oxygen via nasal cannula Fluid overload on chest x-ray On Lasix drip ICC on board Acute on chronic diastolic congestive heart failure - STABLE, CONT UF - Cardiology consulted - Echo: EF 55 to 60% S/p CABG on 06/10 Milrinone drip DC'd On Lasix drip 06/12 On BiPAP now off BiPAP 06/13 On 8 L oxygen via nasal cannula 06/13 Multivessel CAD, S/P CABG X3, ALAA - STABLE, CTS/ICC SEEN S/p CABG on 06/10 On aspirin, Plavix, amiodarone - no statin for abnormal LFTs/cirrhosis On milrinone drip DC'd Chest tube in place DC'd Cardiology, CT surgery, ICC on board Hypotension - ECHO EF 50-55% BP dropped to 80s over 50s overnight 06/11 On Levophed and vasopressin off pressors ICC, CT surgery on board NIYA ON CRF - CONT DIURESIS, RENAL SEEN Metolazone x 1 given 06/12 On Lasix drip, if urinary output does not improve, may require CRRT 06/12 Nephrology on board Renal function improving Pleural effusion DUE TO VOLUME OL - STABLE On Lasix drip Abnormal LFTs: -cholelithiasis with distended GB, no acute cholecystitis on US - Monitor - GI on board Diabetes mellitus II - STABLE HGBA1c 8.4% Insulin drip, transition to Sliding scale insulin as needed, long acting insulin as per ICC Hypertension Renew medications once they have been updated in the computer Now on pressors for hypotension DEBILITY - REHAB SEEN, MAY NEED IRF Patient does not have a living will or medical power of defense attorney Patient is a full code 06/01 multivessel disease on cath, CTS consulted, patient undergoing preop evaluation for possible CABG. 06/02- pt continues cabg eval, conf Fri, nephro/GI consulted per cts, renal indices wnls today, Abd us confirmed cirrhosis with splenomegaly. 06/03 patient continues preop evaluation for CABG, IV Lasix transition to oral 06/04 CABG preop planning 06/05- CABG planning 06/06 ongoing CABG planning per CTS, blood sugars noted to be elevated in 240s to 300s. Will start on basal insulin 7 units for now daily, continue meal correctional insulin. Patient on glipizide and metformin at home holding for now given CABG eval and and pending surgical date. 06/07- pending CABG eval, d/w Cardiology and started patient on IV lasix 40 mg BID due to increasing wt, symptoms of dyspnea. Monitor I'O's. 06/08- poorly controlled blood sugars noted, increased basal insulin to 10 units daily, add meal time insulin AC, wt based compared to SSI admin, started on 4 Units reg insulin AC. Monitor I/O, contiued on IV lasix 40 mg BID, wt 110 kg today (dry wt reported to be 105 kg). 06/09- optimize insulin for improved glucose control, pending cabg tomorrow 06/10- pending cabg Disposition: S/p CABG on 06/11/2023. Chest tubes removed, on 8 L oxygen via nasal cannula, off pressors, fluid overload on chest x-ray, on Lasix drip, on insulin drip, kidney function improving. Working with PT/OT. Multiple specialty services on board. Continue CVICU care. Quality: Gen Med Crit Care VTE Prophylaxis VTE prophylaxis initiated: yes Current Medications Current medication review: I attest that the foregoing medication list in the medical record is true, accurate, and complete to the best of my knowledge. Advanced Care Plan 65 or Older Discussed with: patient Discussion included: living will, power of defense attorney, code status at 1542 [facility] #:[id number] END OF REPORT [facility] 2023-06-17 12:59:00 [facility] ([facility] Gastroenterology Progress Note REPORT#:[id number] REPORT STATUS: Signed REPORT INITIALIZATION DATE:06/17/23 TIME: 1259 PATIENT: MINDY CARTER UNIT #: [id number] ROOM/BED: [place] [id number] : 54 AGE: 67 SEX: M ATTEND: Talat Lord MD ADM AUTHOR: Farideh Harris REPT SERVICE DT/TIME: 06/17/23 1253 * ALL edits or amendments must be made on the electronic/computer document * Farideh Harris 06/17/23 0808: Subjective Patient reports: Yes: passing gas. No: abdominal pain, black stools, bowel movement, nausea, rectal bleeding, vomiting. Review of Systems Constitutional: Denies: chills, fever. Respiratory: Denies: SOB. Cardiovascular: Denies: chest pain. Objective General VS/I O: Last Documented: Result Date Time Temp 36.9 06/16 0800 O2 Delivery Nasal cannula 06/16 0800 O2 Flow Rate 2 06/16 0800 Pulse Ox 95 06/16 0433 FiO2 32 06/16 0433 B/P 99/59 06/16 0200 B/P Mean 73 06/16 0200 Pulse 67 06/16 0200 Resp 27 06/16 0200 24 hour I O ending at 0700: 06/16 0700 06/15 1900 Intake Total 135.10 923.00 Output Total 1095 2250 Balance -959.90 -1327.00 Intake, IV 85.10 173.00 Intake, Oral 50 750 Output, Urine 1095 2250 Patient 112.8 kg Weight Weight Standing scale Measurement Method PATIENT WEIGHT: Weight (lb): 248 Weight (oz): 10.9 Weight (kg): 112.800 Medications: Active Meds + DC'd Last 24 Hrs Insulin Glargine (Semglee) 30 UNIT DAILY SUBQ Atorvastatin Calcium (LIPITOR) 40 MG 2100 PO Insulin Human Lispro (HUMALOG) 0 AC HS SUBQ Insulin Glargine (Semglee) 10 UNIT ONCE ONE SUBQ (DC) Furosemide (LASIX 40 mg/4 mL INJECTION) 40 MG BID 9A 5P IV Insulin Glargine (Semglee) 30 UNIT DAILY SUBQ (DC) Potassium Chloride (POTASSIUM CHLORIDE 20MEQ TAB.ER) 20 MEQ ONCE ONE PO (DC) Potassium Chloride (POTASSIUM CHLORIDE 20MEQ TAB.ER) 40 MEQ ONCE ONE PO (DC) Insulin Glargine (Semglee) 20 UNIT DAILY SUBQ (DC) Fentanyl Citrate (SUBLIMAZE) 100 MCG PACU Q10MIN PRN PRN IV Fentanyl Citrate (SUBLIMAZE) 50 MCG PACU Q10MIN PRN PRN IV Hydralazine HCl (APRESOLINE) 5 MG PACU Q10MIN PRN PRN IV Hydrocodone Bitart/Acetaminophen (NORCO 5/325) 1 TAB PACU ONCE PO (CKD) Hydromorphone HCl (DILAUDID) 1 MG PACU Q10MIN PRN PRN IV Hydromorphone HCl (DILAUDID) 0.5 MG PACU Q5MIN PRN PRN IV Insulin Human Lispro (HUMALOG) 0 PACU ONCE PRN SUBQ Labetalol HCl (labetalol) 5 MG PACU Q10MIN PRN PRN IV Meperidine HCl (MEPERIDINE HCL/PF) 12.5 MG PACU ONCE PRN IV Morphine Sulfate (morphine SULFATE) 2 MG PACU Q10MIN PRN PRN IV Ondansetron HCl (ZOFRAN) 4 MG PACU ONCE PRN IV Ropivacaine (NAROPIN 0.5% 150 MG/30mL) 150 MG ASDIR PRN LOCAL Tramadol HCl (ULTRAM) 50 MG PACU ONCE PO (CKD) Insulin Glargine (Semglee) 40 UNIT BEDTIME SUBQ Ipratropium [place] (ATROVENT) 500 MCG RTQ2H PRN PRN INH Cyanocobalamin (Vitamin B-12 500 mcg tab) 500 MCG DAILY PO Ferrous Sulfate (FERROUS SULFATE) 325 MG DAILY PO Bisacodyl (DULCOLAX) 10 MG ONCE PRN RECTAL Magnesium Hydroxide (MILK OF MAGNESIA) 30 ML ONCE PRN PO Furosemide (LASIX) 240 MG Q24H IV (DC) Sodium Chloride (SODIUM CHLORIDE 0.9%) 24 ML Vasopressin (VASOSTRICT 20 Unit/NS 100ML) 100 ML ASDIR IV (CKD) Dopamine HCl/Dextrose (DOPamine 400MG/D5W 250ML) 250 ML ASDIR IV Epinephrine (ADRENALIN CHLORIDE) 4 MG ASDIR IV Sodium Chloride (SODIUM CHLORIDE 0.9%) 246 ML Melatonin (Melatonin) 6 MG BEDTIME PRN PO Clopidogrel Bisulfate (Plavix) 75 MG DAILY PO Polyethylene Glycol (MIRALAX) 17 GM DAILY PO Pantoprazole (PROTONIX) 40 MG DAILY@0600 PO Milrinone Lactate/Dextrose (MILRINONE 20MG/D5W 100ML) 100 ML TITRATE IV (CKD) Aspirin (ASPIRIN) 81 MG DAILY PO Amiodarone HCl (CORDARONE) 200 MG TID PO Docusate Sodium (COLACE) 100 MG BID PO Metoprolol Tartrate (LOPRESSOR) 12.5 MG Q12HR PO Sennosides (Senna Lax 8.6 MG TABLET) 17.2 MG BEDTIME PO Calcium Chloride (CALCIUM CHLORIDE) 1 GM ASDIR PRN IV Dextrose/Water (DEXTROSE 10% IN WATER) 125 ML ASDIR PRN IV (CKD) Dextrose/Water (DEXTROSE 10% IN WATER) 250 ML ASDIR PRN IV (CKD) Insulin Human Regular (HumuLIN R) 100 UNIT ASDIR IV (CKD) Sodium Chloride (SODIUM CHLORIDE 0.9%) 99 ML Magnesium Sulfate (MAGNESIUM SULFATE 4GM/SWFI 100ML) 100 ML ASDIR PRN IV Magnesium Sulfate (MAGNESIUM SULFATE 2GM/SWFI 50ML) 50 ML ASDIR PRN IV Magnesium Sulfate/Dextrose (MAGNESIUM SULFATE 1GM/D5W 100ML) 100 ML ASDIR PRN IV Nitroglycerin/Dextrose (NITROGLYCERIN 50,000MCG/D5W 250ML) 250 ML ASDIR IV Norepinephrine Bitartrate (NOREPINEPHRINE 8 MG/NS 250 ML) 250 ML TITRATE IV Ondansetron HCl (ZOFRAN) 4 MG Q6H PRN PRN IV Oxycodone HCl (ROXICODONE) 5 MG Q4H PRN PRN PO (DC) Oxycodone HCl (ROXICODONE) 10 MG Q4H PRN PRN PO (DC) Potassium Chloride (KCL 20MEQ/SWFI 100ML) 100 ML ASDIR PRN IV Sodium Bicarbonate (SODIUM BICARBONATE) 50 MEQ ASDIR PRN IV Sodium Chloride (SODIUM CHLORIDE 0.9%) 1,000 ML .Q20H IV Sodium Chloride (SODIUM CHLORIDE 0.9%) 250 ML Q24H IV Lactulose (LACTULOSE) 10 GM DAILY PRN PRN PO Thiamine HCl (THIAMINE HCL) 100 MG DAILY PO Dietitian nutrition assessment The data set between the solid lines has been imported from the dietitian's assessment. BMI Calculated: 36.7 Nutrition related diagnosis: Nutrition diagnosis details: Nutrition problem: Increased nutrient needs Nutrition etiology: Acute illness Nutrition signs and symptoms: CARDIAC POST-OP Nutrition prescription: 1. CARDIAC CCD5 DIET. 2. GLUCERNA 4 PER DAY. 3. HEALTHY HEART CARBOHYDRATE CONTROLLED EDUCATION/HANDOUTS PROVIDED. Dietitian name: Annia Jeffery, DIET Assessment completed: 06/17/23 Physical Exam General appearance: agitated, alert, awake, oriented HEENT: atraumatic, normocephalic Neck: full range of motion Cardiovascular: normal S1/S2, regular rate rhythm Respiratory: symmetric expansion, no distress Abdomen: distended (mildly), non-tender, normal bowel sounds, soft, no guarding Extremities: moves all Musculoskeletal: normal inspection Neuro/BUSINESS AREA MANAGER: alert, normal speech Skin: dry, intact, normal color Psychiatry: normal affect, normal judgment/insight, normal mood Results Findings/Data: Laboratory Tests 06/17/23 0320: [Embedded Image Not Available] 06/17/23 0320: [Embedded Image Not Available] 06/16/23 2114: [Embedded Image Not Available] Laboratory Tests 06/16 0432 Blood Gas Puncture Site R Brach O2 Saturation (90 - 100 %) 95.4 ABG pH (7.35 - 7.45) 7.450 ABG pCO2 (35.0 - 45 mmHg) 39.6 ABG pO2 (80 - 100.0 mmHg) 73.0 L ABG PO2/FiO2 Ratio (mm/Hg) 228.10 ABG HCO3 (22.0 - 26.0 MMOL/L) 27.6 H ABG Total CO2 28.9 ABG Base Excess (-4.0 - 4.0 MMOL/L) 3.6 Mabel Test Positive Temperature (F) 98 O2 Delivery Device Cannula FiO2 (%) 32.0 Laboratory Tests 06/16 06/16 06/16 06/16 06/16 1200 0750 0650 0321 0320 Chemistry Sodium (134 - 147 mEq/L) 129 L Potassium (3.4 - 5.0 mEq/L) 3.9 Chloride (100 - 108 mEq/L) 96 L Carbon Dioxide (21 - 33 mEq/l) 26 Anion Gap (0 - 20) 10 BUN (7 - 25 mg/dL) 71 H Creatinine (0.6 - 1.3 mg/dL) 1.9 H Glomerular Filtr Rate (80 - 90) 38.0 L Glucose (77 - 141 mg/dL) 250 H POC Glucose (70 - 110 MG/DL) 305 H 127 H 131 H 258 H Calcium (8.0 - 10.5 mg/dL) 8.0 Magnesium (1.6 - 2.6 mg/dL) 2.64 H 06/16 06/16 06/15 06/15 0320 0116 2214 2212 Chemistry POC Glucose (70 - 110 MG/DL) 287 H 275 H Ionized Calcium Leanne (1.09 - 1.30 MMOL/L) 1.01 L Magnesium (1.6 - 2.6 mg/dL) 2.61 H Total Bilirubin (0.0 - 1.0 mg/dL) 0.70 Direct Bilirubin (0.1 - 0.3 MG/DL) 0.30 Indirect Bilirubin (MG/DL) 0.40 AST (8 - 34 IUnit/L) 80 H ALT (10 - 49 IUnit/L) 81 H Total Alk Phosphatase (20 - 125 IUnit/L) 190 H Total Protein (6.4 - 8.2 g/dL) 6.1 L Albumin (3.4 - 5.0 g/dL) 2.90 L 06/154 7 1835 Chemistry Sodium (134 - 147 mEq/L) 129 L Potassium (3.4 - 5.0 mEq/L) 4.1 Chloride (100 - 108 mEq/L) 96 L Carbon Dioxide (21 - 33 mEq/l) 24 Anion Gap (0 - 20) 13 BUN (7 - 25 mg/dL) 67 H Creatinine (0.6 - 1.3 mg/dL) 1.9 H Glomerular Filtr Rate (80 - 90) 38.0 L Glucose (77 - 141 mg/dL) 297 H POC Glucose (70 - 110 MG/DL) 302 H 250 H Calcium (8.0 - 10.5 mg/dL) 8.2 Laboratory Tests 06/16 0320 Hematology WBC (4.5 - 11.0 x10 3/uL) 10.2 RBC (4.00 - 5.60 x10 6/uL) 3.08 L Hgb (12.5 - 16.9 g/dL) 9.3 L Hct (37.5 - 50.7 %) 28.2 L MCV (81.0 - 99.0 fL) 91.6 MCH (27.0 - 33.0 pg) 30.2 MCHC (33.0 - 37.0 g/dL) 33.0 RDW (11.5 - 14.5 %) 14.2 Plt Count (150 - 400 x10 3/uL) 166 MPV (7.0 - 9.0 fL) 11.9 H Neut % (Auto) (56.0 - 77.0 %) 76.3 Lymph % (Auto) (14.0 - 32.0 %) 4.8 L [place] % (Auto) (4.8 - 9.0 %) 14.1 H Eos % (Auto) (0.3 - 3.7 %) 2.3 Baso % (Auto) (0.0 - 2.0 %) 0.4 Neut # (Auto) (2.0 - 7.6 x10 3/uL) 7.80 H Lymph # (Auto) (1.0 - 3.8 x10 3/uL) 0.49 L [place] # (Auto) (0.1 - 0.8 x10 3/uL) 1.44 H Eos # (Auto) (0.0 - 0.2 x10 3/uL) 0.24 H Baso # (Auto) (0.0 - 0.2 x10 3/uL) 0.04 Abs Immat Gran (auto) (0.00 - 0.03 x10 3/uL) 0.21 H Immature Gran % (0.0 - 2.0 %) 2.1 H Nucleated RBC % (0 - 0 %) 0.4 H Nucleated RBCs # (Man) (0.0 - 0.1 x10 3/uL) 0.04 Radiology Data: Recent Impressions: RADIOLOGY - XR CHEST 1 V 06/16 0672 Report Impression - Status: SIGNED Entered: 06/17/2023 1759 IMPRESSION: No significant interval change. Impression By: [email or web address] - Orlando Baez M.D. ULTRASOUND - DUP VEIN BETH 06/16 1454 Report Impression - Status: SIGNED Entered: 06/17/2023 1511 IMPRESSION: 1. No evidence of deep venous thrombosis. Impression By: Suzy Hogan M.D. Results: labs reviewed, vital signs reviewed, x-ray personally reviewed Diagnosis, Assessment Plan Problem List/A P: 1. Cirrhosis 2. Hepatitis C 3. Elevated LFTs 4. Alcohol dependence 5. CHF exacerbation Free Text A P: (06/03/2023) MELD score of 7, estimated 3-month mortality of 1.9% S/p CABG x 3, EVH, ALAA, PP, No BM yet, seems more agitated today, will give 1 dose of lactulose 20gm. Recommendations: 1. Monitor LFTs; avoid further hepatotoxic medications; improving 2. INR 1.1 3. Abdominal ultrasound revealed cirrhosis with splenomegaly, cholelithiasis, and nonspecific gallbladder wall thickening likely secondary to chronic liver disease as patient does not express abdominal pain at this time- repeat us shows similar findings 4. History of hepatitis C, PCR - not detected 5. Daily alcohol use, cont. MVI and thiamine; encouraged cessation 6. Agree with current bowel regimen 7. Further recommendations may follow Consultants: cardiology, cardiovascular surgery Attestations Attestation needed: supervising physician Rigoberto Jarrell 06/17/232031: Attestations Physician Attestation Agree w/findings plan: Agree with the findings and plan as documented by RAHUL Tobias. at 1548 at 203 RPT #:[id number] END OF REPORT [facility] 2023-06-17 11:54:00 [facility] ([facility]) Cardiothoracic Surgery Prog REPORT#:[id number] REPORT STATUS: Signed REPORT INITIALIZATION DATE:06/17/23 TIME: 1154 PATIENT: MINDY CARTER UNIT #: [id number] ROOM/BED: [place] [address] : 54 AGE: 67 SEX: M ATTEND: Kumar Garcia MD ADM AUTHOR: Johnna Pablo Physic REPT SERVICE DT/TIME: 06/17/23 1154 * ALL edits or amendments must be made on the electronic/computer document * General Post-op: day 6 Status post: 06/11/23 CABG x 3 (COSTA-LAD, SVG-Diag, SVG-OM) EVH (RGSV) ALAA PP Subjective Chief complaint: Postop cabg Review of Systems Constitutional: Reports: fatigue. Skin: Denies: abrasion, bruising, contusion. Allergy/Immun: Denies: allergic reaction, anaphylaxis, hives. Respiratory: Denies: HERRING (dyspnea on exertion). Cardiovascular: Denies: chest pain, palpitations. Heme: Denies: adenopathy, bleeding, bruising. Endocrine: Denies: cold intolerance, heat intolerance, polydipsia. Neuro: Denies: confusion, dizziness, seizure, syncope. All systems rev neg: except as marked Objective General VS/I O Last Documented: Result Date Time Temp 98.5 06/16 0800 O2 Delivery Nasal cannula 06/16 0800 O2 Flow Rate 2 06/16 0800 Pulse Ox 95 06/16 0433 FiO2 32 06/16 0433 B/P 99/59 06/16 0200 B/P Mean 73 06/16 0200 Pulse 67 06/16 0200 Resp 27 06/16 0200 24 hour I O ending at 0700: 06/16 0700 06/15 1900 Intake Total 135.10 923.00 Output Total 1095 2250 Balance -959.90 -1327.00 Intake, IV 85.10 173.00 Intake, Oral 50 750 Output, Urine 1095 2250 Patient 112.8 kg Weight Weight Standing scale Measurement Method PATIENT WEIGHT: Weight (lb): 248 Weight (oz): 10.9 Weight (kg): 112.800 Physical Exam General appearance: alert, awake, oriented HEENT: anicteric, mucosal membranes moist, pupils reactive to light Neck: full range of motion, non-tender Cardiovascular: normal heart sounds, regular rate rhythm Respiratory: aerating well, symmetric expansion Abdomen: soft, non-tender Genitourinary: marques Extremities: dry, moves all Musculoskeletal: no muscle spasm Skin: dry, intact Psychiatry: normal affect, normal mood Quality: Trauma Gen Surg Advanced Care Plan 65 or Older Discussed with: patient Discussion included: living will, power of defense attorney, code status Current Medications Current medication review: I attest that the foregoing medication list in the medical record is true, accurate, and complete to the best of my knowledge. VTE Prophylaxis - General VTE prophylaxis initiated: yes Diagnosis, Assessment Plan Hospital course to date: This is a 67-year-old gentleman with a past medical history of hypertension, hyperlipidemia, diabetes, neuropathy, alcohol use, liver cirrhosis, kidney disease, syncope who came to the hospital with shortness of breath and chest tightness for 2 days. Patient describes significant orthopnea and increasing edema in bilateral lower extremities that brought the patient to the hospital. Initial workup positive for mildly elevated troponin and elevated BNP and was diagnosed with NSTEMI and CHF exacerbation with acute hypoxic respiratory failure. Patient then underwent cardiac catheterization for elevated troponin. CV surgery was consulted for multivessel coronary artery disease found on angiogram. 1. multivessel disease -Patient underwent cardiac angiogram: Left main-proximal to mid 60 to 70% stenosis LAD-ostial LAD 90% stenosis Left circumflex-patent RCA-mild 30 to 40% mid stenosis EF 55 to 60% Wall motion is normal, grade 1 diastolic dysfunction, normal systolic function. Mitral valve: Moderately calcified with leaflet thickening. Moderate stenosis. Mild regurgitation. Aortic valve: Thickening and sclerosis 2. Liver disease -Patient recently diagnosed. Patient does not live local to [place]. Will consult gastroenterology to see patient. -EtOH cessation 3. Chronic kidney disease -Patient does not live local to [place]. Will consult nephrology to see patient. Patient will be presented at complex cardiology conference on Wednesday. Further recommendations to follow. 06/04/23 Patient in stable condition Labs and imaging reviewed Case presented at complex cardiology conference this morning and the team deemed patient will be best be suited with CABG. Preop workup ongoing Timing of surgery pending Plan of care discussed with patient and family. All questions were answered. 06/05/23 Patient doing well, denies chest pain Labs reviewed Pre op workup ongoing, pending vein mapping and carotid duplex On 4l nasal cannula, wean off oxygen as tolerated Incentive spirometer teaching Cardiac diet OOB to chair, ambulate Plan of care discussed with patient, all questions were answered. 06/06/23 Patient in stable condition Denies chest pain Wean off oxygen Encourage I-S use and deep breathing Tentatively plan for CABG in the upcoming week Plan of care discussed with patient, all questions were answered. 06/07/23 Patient seen and examined, denies chest pain Labs reviewed I-S use encourage, wean off oxygen as tolerated, on 2 L nasal cannula Tolerating diet Out of bed in chair, PT OT Timing of surgery pending Plan of care discussed with the patient, all questions were answered 06/08/23 Patient in stable condition Labs reviewed On room air, encourage I-S use Preop workup completed I will tentatively schedule him for surgery on Wednesday Plan of care discussed with patient, all questions were answered 06/09/23 Patient in stable condition Labs reviewed On room air, encourage I-S use Preop workup completed I will tentatively schedule him for surgery on Wednesday Plan of care discussed with patient, all questions were answered 06/10/23 Patient is stable condition, denies chest pain On room air Preop workup completed Plan for surgery on Wednesday-CABG and possible mitral valve I have discussed with the patient the operation, risk involved, calculated STS risk score, benefits, alternatives, and complicated. Patient acknowledges understanding and is willing to proceed. 06/11/23 CABG x 3 (COSTA-LAD, SVG-Diag, SVG-OM) EVH (RGSV) ALAA PP 06/12/23 POD 1 AAO x 3 Respiratory: on 10 L NC, wean as tolerated. Encourage IS. CT in place 325/196, leave in place, monitor outputs. Cardiac: Sinus rhythm. on levo 5, epi 2, Milrinone. GI: advance diet as tolerated. continue Bowel regimen. : Marques in place. Patient walked unit with PT DC Tylenol due to liver disease Patient was seen and examined at [facility]. Plan of care discussed with multidisciplinary team 06/13/23 POD 2 AAO x 3 Respiratory: on Bipap Encourage IS. Cardiac: Sinus rhythm. Pacing wires on standby, episode of hypotension, on levo @ 6, no response to dopamine for urine output GI: advance diet as tolerated. continue Bowel regimen. : Marques in place. Low urine output, start Lasix drip, vasopressin Plan to start Lasix drip. If no improvement in renal perfusion, patient will need CRRT. Patient was seen and examined at [facility]. Plan of care discussed with multidisciplinary team Nephrology following. Appreciate input Continue supportive care, 06/14/23 POD 3 AAOx3 Respiratory: Teleflex 60% Cardiac: Sinus rhythm, pacing wires on standby, levo at 2, vaso turned off this a.m. Continues on Lasix drip Urine output 1100 Chest tube drainage Abdominal ultrasound Evaluation limited by overlying bandage. Cirrhotic liver morphology. Cholelithiasis and distended gallbladder without sonographic features of acute cholecystitis. Will obtain bedside echo. Patient was seen and examined Dr. Martel. Continue supportive care Plan of care discussed with multidisciplinary team. 06/15/23 POD 4 AAOx3 Respiratory: On 2 L nasal cannula, wean as tolerated Cardiac: Sinus rhythm, pacing wires on standby, off pressor Urine output improved on Lasix drip, continue to monitor urine output DC left chest tube. Continue PT/OT, out of bed Patient was seen and examined Dr. Martel. Continue supportive care Plan of care discussed with multidisciplinary team. 06/17/23 POD 6 AAOx3 Respiratory: On 3 L NC Cardiac: Sinus rhythm, pacing wires on standby, off pressor monitor urine output. Continue PT/OT, out of bed Patient was seen and examined Dr. Martel. Continue supportive care Plan of care discussed with multidisciplinary team. Okay to CVN 1 continue PT/OT Consultants: cardiology, cardiovascular surgery at 1521 at 0850 RPT #:[id number] END OF REPORT [facility] 2023-06-17 11:31:00 [facility] ([facility]) Acute Rehab Consult REPORT#:[id number] REPORT STATUS: Signed REPORT INITIALIZATION DATE:06/17/23 TIME: 113 PATIENT: MINDY CARTER UNIT #: [id number] ROOM/BED: [place] [address] : 54 AGE: 67 SEX: M ATTEND: Talat Lord MD ADM AUTHOR: Britta Herndon PA-C REPT SERVICE DT/TIME: 06/17/23 1131 * ALL edits or amendments must be made on the electronic/computer document * History of Present Illness HPI Reason for consult: evaluation of Rehab needs Chief complaint: NSTEMI , CAD PCP: PCP: No Primary or Family Physician Requesting clinician: Dr. Lord Etiologic diagnosis: CIM HPI: This is a 67-year-old male with history of high blood pressure, hyperlipidemia, diabetes mellitus, syncope, neuropathy, alcohol use, liver cirrhosis, stage II CKD presents with shortness of breath that has been increasing since 2 days prior to admission. Patient took extra dose of Aldactone and hydrochlorothiazide which did not help. He underwent heart catheterization secondary to elevated troponins and found to have multivessel coronary artery disease. Cardiothoracic surgery was consulted. Echocardiogram was performed showed EF of 55 to 60%. He has been placed on O2 and was working on weaning prior to CABG. 06/10 patient underwent CABG x 3 left atrial appendage clipping and posterior pericardiotomy by Dr. Martel. Postop echo shows normal systolic function with abnormal left ventricular systolic dysfunction. He was requiring pressors postoperatively. No arrhythmias noted. Required BiPAP postoperatively after extubated. He was volume overloaded and developed acute on chronic kidney injury postop. He was given furosemide via drip as well as Zaroxolyn. There was concerns for possible acute cholecystitis postoperatively on 06/13. Ultrasound of the abdomen showed nonspecific gallbladder wall thickening likely secondary to chronic liver disease. No Osuna sign and no acute abdominal pain. LFTs were elevated but felt to be secondary to cirrhosis, shock liver and amiodarone. Chest tube was DC'd on 06/14. Urine output was improving on the Lasix drip. Patient weaned to nasal cannula 4 L. Continued on pulmonary toileting as well as aggressive incentive spirometer. His blood sugars have been quite elevated requiring increasing doses of insulin. Creatinine has been improving on Lasix drip and down to 1.9. Sodium 129. Hemoglobin stable at 9.3. Patient working with therapy daily. Is ambulating 400 feet total at min assist using wheelchair handles and wheelchair follow. Functional Status PT evaluation: 1. One on one supervision with cueing and assistance provided to ensure proper performance of all activities. Yes Precautions: STERNAL Cardiac Fall Oxygen Desaturation Pre- Gait Mobility Y/N: Yes Safety addressed through use of: Verbal Cues Tactile Cues Gait Device WC HANDLES WC TO FOLLOW Weightbearing: No Restriction Ambulation Distance: 400 FT TOTAL 200 FT 100 FT X2 Progression: Forward Assistance Level: Minimal Assistance Gait Deviations: Decreased Ember Lacks Heel Strike - Bilat [facility] Mobility: No Document Pain/Education: No Advanced Progression: No Effects of Treatment: Balance Improved Tye of care decreased Cardio tolerance improved Function Improved Tolerance increased Post Treatment Precautions: In Bed, Rails Up Family at Bedside Call Light in Reach Nursing Notified O2 On Pulse OX in Place SCD in Place Telephone in Reach Review Plan of Care: Yes PT charges: Gait Training [id number] Gait Cmt: IMPROVING SLOWLY, STILL ON 4L O2. FATIGUES QUICKLY W GAIT. If this is the patient's last treatment, this entry serves as the discharge summary: Y Start Time: 1110 Stop Time: 1133 Treatment Time: ( minutes) 0:23 Completed by: Boris Pena BED MOBILITY: Yes Rolling Right/Left: Minimal Assistance Supine to Sit: Minimal Assistance Sit to Supine: Minimal Assistance TRANSFERS: Yes Bed to/from chair: Minimal Assistance Sit to/from stand: Minimal Assistance CARDIO-RESPIRATORY IMPAIRMENT Items determined to be OUTSIDE the Functional Limits are as follows: Physical Therapy: Plan of Care PT Problem List: 1 Impaired Functional Mobil 4 Impaired Strength/ROM 5 Impaired Activity Jody. 6 Impaired ADL 8 Impaired Gait 9 Pain Short Term Goals OT evaluation: Therapist recommended discharge needs: PostAcute Rehabilitation Potential: Good for Goals Recommendations: Case Management PT Consult Document Pain/Education: Yes Post [place] Comments: EDUCATION FOR SAFETY/SELF-CARE Evaluation Type: High Complexity Reason for Eval Complexity: Multiple Comorbidities Document OT charges: EVAL OT HIGH COMP [id number] Comments: SKILLED OT TO ADDRESS PERFORMANCE DEFICITS. If this is the patient's last treatment, this entry serves as the discharge summary: Y Start Time: 1020 Stop Time: 1030 Eval Time ( minutes): 0:10 Completed by: Jori Blanco UPPER EXTREMETY FUNCTION UPPER BODY FUNCTION Items determined to be outside Functional Limits are as follows: RANGE OF MOTION (Degrees): Active unless otherwise noted RIGHT UPPER EXTREMITY ROM: Yes RUE ROM Measurements and Cmts: WFL FOR STERNAL PRECAUTIONS. LEFT UPPER EXTREMITY ROM: Yes LUE ROM Measurements and Cmts: WFL FOR STERNAL PRECAUTIONS. MANUAL MUSCLE TEST FUNCTIONAL MOBILITY FUNCTIONAL MOBILITY Items determined to be outside Functional Limits are as follows: Sit to Stand: Minimal Assistance Functional Activity Tolerance TRANSFERS Chair/Wheelchair: Minimal Assistance Comments: W AD. ORTHOSTATIC W EXTENDED STANDING. BALANCE ACTIVITIES OF DAILY LIVING Activity: How much help from another person does the patient currently need: ACTIVITIES OF DAILY LIVING Items determined to be outside Functional Limits are as follows: Lower Body Dressing: Dependent Hygiene/Grooming: Supervision or Set-up Feeding: Supervision or Set-up NEUROLOGICAL NEUROLOGICAL Items determined to be outside Functional Limits are as follows: SENSATION SENSATION PRESENT Areas assessed during this evaluation are as follows: COGNITION COGNITION Items determined to be outside Functional Limits are as follows: VISIUAL VISUAL/PERCEPTION Items determined to be outside Functional Limits are as follows: CARDIORESPIRATORY CARDIO-RESPIRATORY IMPAIRMENT Items determined to be OUTSIDE the Functional Limits are as follows: Patient on Telemetry?: Yes Rhythm: Normal Sinus Rhythm Patient receiving Oxygen?: Yes Liters/min: 12 Oxygen Saturation (%): 100 During Treatment: 94 Heart rate: 86 During Treatment: 66 Blood Pressure (mm Hg): 121/46 During Treatment: 75/46 COMMUNICATION COMMUNICATION Items determined to be outside Functional Limits are as follows: INTEGUMENTARY Integumentary Items determined to be outside Functional Limits are as follows: . EDEMA ASSESSMENT TREATMENT DETAILS Plan of Care Type: Occupational Therapy Planned Interventions: Therapeutic Exercise Functional Activities ADL Training Amount: Once Daily . Frequency per week: 5 Precautions: SEE EARLIER ENTRY Discharge Recommendations: PENDING PROGRESS Occupational Therapy: Plan of Care OT Problem List: 1 Impaired Strength/ROM 5 Impaired Functional Mobil 7 Impaired ADL History Past medical history: Reports: Kidney disease/stones. Additional medical history: Hypertension, hyperlipidemia, diabetes mellitus, neuropathy, syncope, alcohol use, stage II CKD, liver cirrhosis Additional surgical history: Appendectomy Additional family history: None Alcohol use: Alcohol use (3 SHOTS OF WHISKEY/DAY) Drug use: Denies recreational drugs Smoking status for patients 13 years old or older: Never Smoker Additional social history: PT LIVES AT HOME WITH HIS . 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 NO DME OWNED OR USED. Medications: Home Medications: Medication Dose/Rte/Freq Days Qty Entered Last Max Daily Dose Reviewed amLODIPine (NORVASC) 05/31/23 05/31/23 Strength: 10 MG TAB 1513 1532 ASPIRIN EC (ECOTRIN) 81 MG PO DAILY 05/31/23 05/31/23 Strength: 81 MG TAB.EC 1514 1531 CARVEDILOL (COREG) 25 MG PO BID MEALS 05/31/23 05/31/23 Strength: 25 MG TAB 1515 1531 TIRZEPATIDE 12.5 QWEEK 05/31/23 05/31/23 (MOUNJARO PEN (2mL)) 1517 1532 Strength: 2.5 MG/0.5 ML PEN.INJCTR metFORMIN (GLUCOPHAGE) 500 MG PO BID 05/31/23 05/31/23 Strength: 500 MG TAB 1517 1531 glyBURIDE (DIABETA) 5 MG PO DAILY 05/31/23 05/31/23 Strength: 5 MG TAB 1518 1531 PANTOPRAZOLE 40 MG IV DAILY 05/31/23 05/31/23 (PROTONIX IV) 1518 1532 Strength: 40 MG VIAL PRAVASTATIN (PRAVACHOL) 05/31/23 05/31/23 Strength: 40 MG TAB 1523 1532 GABAPENTIN (NEURONTIN) 100 MG 05/31/23 05/31/23 Strength: 100 MG CAP 1524 1532 TERAZOSIN (HYTRIN) 2 MG BEDTIME 05/31/23 05/31/23 Strength: 1 MG CAP 1525 1531 HYDROCHLOROTHIAZIDE 50 MG DAILY 05/31/23 05/31/23 (HCTZ) 1526 1531 Strength: 12.5 MG CAP SPIRONOLACTONE 25 MG PO QAM 05/31/23 05/31/23 (ALDACTONE) 1526 1531 Strength: 25 MG TAB CHOLECALCIFEROL 05/31/23 05/31/23 (VITAMIN D3) 1528 1532 (VITAMIN D3) Strength: 125 MCG (5,000 UNIT) TAB DOXEPIN (SINEquan) 10 MG 05/31/23 05/31/23 Strength: 10 MG CAP 1529 1532 AZELASTINE 1 SPRAY NASAL BID 05/31/23 05/31/23 (ASTELIN NASAL) 1529 1531 Strength: 137 MCG (0.1 %) SPRAY 2 PUFF INH BID 05/31/23 05/31/23 Budesonide/Glycopyr/Formote rol (BREZTRI AEROSPHERE 1530 1531 INH) Strength: 160 MCG-9 MCG-4.8 MCG/ACTUATION HFA.AER.AD MONTELUKAST (SINGULAIR) 05/31/23 05/31/23 Strength: 10 MG TAB 1530 1532 Current Hospital Medications: Ahfs Category Unknown Sig/Norris Start time Last Medication Dose Route Stop Time Status Admin Melatonin 6 MG BEDTIME PRN 06/11 1629 AC 06/14 (Melatonin) PO 06/14 1629 2010 Autonomic Drugs Sig/Norris Start time Last Medication Dose Route Stop Time Status Admin Ipratropium [place] 500 MCG RTQ2H PRN PRN 06/13 194 AC 06/13 (ATROVENT) INH 09/11 Dopamine HCl/Dextrose 250 ML ASDIR 06/11 2315 AC 06/11 (DOPamine 400MG/D5W IV 09/09 2313 2308 250ML) Epinephrine 4 MG ASDIR 06/11 193 AC (ADRENALIN CHLORIDE) IV 09/09 1928 Sodium Chloride 246 ML (SODIUM CHLORIDE 0.9%) Norepinephrine 250 ML TITRATE 06/10 1944 AC 06/13 Bitartrate IV 09/09 1943 0055 (NOREPINEPHRINE 8 MG/ NS 250 ML) Blood Formation,Coagulation Sig/Norris Start time Last Medication Dose Route Stop Time Status Admin Ferrous Sulfate 325 MG DAILY 06/13 899 AC 06/16 (FERROUS SULFATE) PO 09/11 0859 0821 Clopidogrel Bisulfate 75 MG DAILY 06/11 09 AC 06/16 (Plavix) PO 09/09 0859 0817 Cardiovascular Drugs Sig/Norris Start time Last Medication Dose Route Stop Time Status Admin Atorvastatin Calcium 40 MG 2100 06/16 2099 AC (LIPITOR) PO 07/16 2058 Hydralazine HCl 5 MG PACU Q10MIN PRN PRN 06/15 919 AC (APRESOLINE) IV Labetalol HCl 5 MG PACU Q10MIN PRN PRN 06/15 919 AC (labetalol) IV Milrinone Lactate/ 100 ML TITRATE 06/11 144 CKD 06/11 Dextrose IV 09/09 (MILRINONE 20MG/D5W 100ML) Amiodarone HCl 200 MG TID 06/10 2099 AC 06/16 (CORDARONE) PO 09/08 2058 1529 Metoprolol Tartrate 12.5 MG Q12HR 06/10 2099 AC 06/16 (LOPRESSOR) PO 09/08 2058 0818 Nitroglycerin/ 250 ML ASDIR 06/10 1944 AC Dextrose IV 09/09 1943 (NITROGLYCERIN 50,000MCG/D5W 250ML) Central Nervous System Agents Sig/Norris Start time Last Medication Dose Route Stop Time Status Admin Fentanyl Citrate 100 MCG PACU Q10MIN PRN PRN 06/15 919 AC (SUBLIMAZE) IV Fentanyl Citrate 50 MCG PACU Q10MIN PRN PRN 06/15 919 AC (SUBLIMAZE) IV Hydrocodone Bitart/ 1 TAB PACU ONCE 06/15 919 CKD Acetaminophen PO (NORCO 5/325) Hydromorphone HCl 1 MG PACU Q10MIN PRN PRN 06/15 919 AC (DILAUDID) IV 06/19 918 Hydromorphone HCl 0.5 MG PACU Q5MIN PRN PRN 06/15 919 AC (DILAUDID) IV 06/19 918 Meperidine HCl 12.5 MG PACU ONCE PRN 06/15 919 AC (MEPERIDINE HCL/PF) IV Morphine Sulfate 2 MG PACU Q10MIN PRN PRN 06/15 919 AC (morphine SULFATE) IV Tramadol HCl 50 MG PACU ONCE 06/15 919 CKD (ULTRAM) PO Aspirin 81 MG DAILY 06/11 142 AC 06/16 (ASPIRIN) PO 09/0917 Magnesium Sulfate 100 ML ASDIR PRN 06/10 1944 AC (MAGNESIUM SULFATE IV 09/09 1943 4GM/SWFI 100ML) Magnesium Sulfate 50 ML ASDIR PRN 06/10 1944 AC 06/14 (MAGNESIUM SULFATE IV 09/09 1943 1912 2GM/SWFI 50ML) Magnesium Sulfate/ 100 ML ASDIR PRN 06/10 1944 AC 06/15 Dextrose IV 09/09 1943 1713 (MAGNESIUM SULFATE 1GM/D5W 100ML) Oxycodone HCl 5 MG Q4H PRN PRN 06/10 1944 DC 06/13 (ROXICODONE) PO 06/16 1943 1315 Oxycodone HCl 10 MG Q4H PRN PRN 06/10 1944 DC 06/14 (ROXICODONE) PO 06/15 Electrolytic, Caloric, And Yuli Sig/Norris Start time Last Medication Dose Route Stop Time Status Admin Lactulose 20 GM ONCE ONE 06/16 1600 DC (LACTULOSE) PO 06/16 1601 Furosemide 40 MG BID 9A 5P 06/16 0900 AC 06/16 (LASIX 40 mg/4 mL IV 09/14 0859 1731 INJECTION) Potassium Chloride 20 MEQ ONCE ONE 06/16 0645 DC 06/16 (POTASSIUM CHLORIDE PO 06/16 0646 0817 20MEQ TAB.ER) Furosemide 240 MG Q24H 06/12 0900 DC 06/15 (LASIX) IV 09/10 08 0927 Sodium Chloride 24 ML (SODIUM CHLORIDE 0.9%) Calcium Chloride 1 GM ASDIR PRN 06/10 1944 AC 06/12 (CALCIUM CHLORIDE) IV 09/09 1943 1311 Dextrose/Water 125 ML ASDIR PRN 06/10 1944 CKD (DEXTROSE 10% IN IV 09/09 1943 WATER) Dextrose/Water 250 ML ASDIR PRN 06/10 1944 CKD (DEXTROSE 10% IN IV 09/09 1943 WATER) Potassium Chloride 100 ML ASDIR PRN 06/10 1944 AC 06/14 (KCL 20MEQ/SWFI IV 09/09 1943 0612 100ML) Sodium Bicarbonate 50 MEQ ASDIR PRN 06/10 1944 AC 06/12 (SODIUM BICARBONATE) IV 09/09 1943 1310 Sodium Chloride 1,000 ML .Q20H 06/10 1944 AC (SODIUM CHLORIDE IV 09/09 1943 0.9%) Sodium Chloride 250 ML Q24H 06/10 1944 AC 06/11 (SODIUM CHLORIDE IV 09/09 1943 2120 0.9%) Lactulose 10 GM DAILY PRN PRN 06/03 1430 AC 06/13 (LACTULOSE) PO 09/01 1429 0743 Gastrointestinal Drugs Sig/Norris Start time Last Medication Dose Route Stop Time Status Admin Ondansetron HCl 4 MG PACU ONCE PRN 06/14 0920 AC (ZOFRAN) IV 09/12 09 Bisacodyl 10 MG ONCE PRN 06/12 1200 AC (DULCOLAX) RECTAL 09/10 1159 Magnesium Hydroxide 30 ML ONCE PRN 06/12 1200 AC (MILK OF MAGNESIA) PO Polyethylene Glycol 17 GM DAILY 06/11 0900 AC 06/16 (MIRALAX) PO 09/09 0859 0818 Pantoprazole 40 MG DAILY@00 06/11 0600 AC 06/16 (PROTONIX) PO 09/09 0559 0617 Docusate Sodium 100 MG BID 06/10 2100 AC 06/16 (COLACE) PO 09/08 Sennosides 17.2 MG BEDTIME 06/10 2100 AC 06/15 (Senna Lax 8.6 MG PO 09/08 TABLET) Ondansetron HCl 4 MG Q6H PRN PRN 06/10 1944 AC (ZOFRAN) IV 09/09 1943 Hormones And Synthetic Substit Sig/Norris Start time Last Medication Dose Route Stop Time Status Admin Insulin Glargine 30 UNIT DAILY 06/17 0900 AC (Semglee) SUBQ 09/15 0859 Insulin Human Lispro 0 AC HS 06/16 1130 AC 06/16 (HUMALOG) SUBQ 09/14 1129 1730 Insulin Glargine 10 UNIT ONCE ONE 06/16 1015 DC 06/16 (Semglee) SUBQ 06/16 1016 1037 Insulin Glargine 30 UNIT DAILY 06/16 0900 DC (Semglee) SUBQ 09/14 0859 Insulin Glargine 20 UNIT DAILY 06/15 1045 DC 06/16 (Semglee) SUBQ 09/13 1044 0818 Insulin Human Lispro 0 PACU ONCE PRN 06/14 0920 AC (HUMALOG) SUBQ 09/12 0919 Insulin Glargine 40 UNIT BEDTIME 06/13 2100 AC 06/15 (Semglee) SUBQ 09/11 205 2100 Vasopressin 100 ML ASDIR 06/12 0630 CKD 06/13 (VASOSTRICT 20 Unit/ IV 09/10 0629 0055 NS 100ML) Insulin Human Regular 100 UNIT ASDIR 06/10 194 CKD 06/16 (HumuLIN R) IV 09/09 1943 031 Sodium Chloride 99 ML (SODIUM CHLORIDE 0.9%) Local Anesthetics (Parenteral) Sig/Norris Start time Last Medication Dose Route Stop Time Status Admin Ropivacaine 150 MG ASDIR PRN 06/14 09 AC (NAROPIN 0.5% 150 MG/ LOCAL 30mL) Vitamins Sig/Norris Start time Last Medication Dose Route Stop Time Status Admin Cyanocobalamin 500 MCG DAILY 06/13 09 AC 06/16 (Vitamin B-12 500 PO 09/11 0859 0817 mcg tab) Thiamine HCl 100 MG DAILY 06/02 09 AC 06/16 (THIAMINE HCL) PO 08/31 0859 0817 Allergies: Coded Allergies: No Known Allergies (05/31/23) Review of Symptoms ROS ROS comments: 14 POINT ROS REVIEWED. HE DENIES CP, SORNESS, NO SOB,ABD PAIN, NAUSEA, VOMITING, DIARRHEA, CONSTIPATION. + EDEMA TO BLE. OTHERWISE 14 NEGATIVE. Objective Physical Exam VS: Last Documented: Result Date Time Temp 98.5 06/16 0800 O2 Delivery Nasal cannula 06/16 0800 O2 Flow Rate 2 06/16 0800 Pulse Ox 95 06/16 0433 FiO2 32 06/16 0433 B/P 99/59 06/16 0200 B/P Mean 73 06/16 020 Pulse 67 06/16 0200 Resp 27 06/16 0200 PATIENT WEIGHT: Weight (lb): 248 Weight (oz): 10.9 Weight (kg): 112.800 General appearance: alert, awake, oriented HEENT: anicteric, mucosal membranes moist, sclera clear Neck: supple, no JVD Cardiovascular: regular rate rhythm, S1/S2, no murmur Respiratory: aerating well, clear bilaterally Abdomen: non-distended, soft, non-tender Skin: incision (C/D/I), dry, intact, no rash Musculoskeletal - general: Musculoskeletal - general: joints normal, range of motion normal, no atrophy Neuro/BUSINESS AREA MANAGER: alert, oriented X 3, normal speech, no motor deficits, no sensory deficits Results Findings/Data: Laboratory Tests: 06/16 06/16 06/16 06/16 06/16 0750 0650 0432 0321 0320 Blood Gas Puncture Site R Brach O2 Saturation (90 - 100 %) 95.4 ABG pH (7.35 - 7.45) 7.450 ABG pCO2 (35.0 - 45 mmHg) 39.6 ABG pO2 (80 - 100.0 mmHg) 73.0 L ABG PO2/FiO2 Ratio (mm/Hg) 228.10 ABG HCO3 (22.0 - 26.0 MMOL/L) 27.6 H ABG Total CO2 28.9 ABG Base Excess (-4.0 - 4.0 MMOL/L) 3.6 Mabel Test Positive Temperature (F) 98 O2 Delivery Device Cannula FiO2 (%) 32.0 Chemistry Sodium (134 - 147 mEq/L) 129 L Potassium (3.4 - 5.0 mEq/L) 3.9 Chloride (100 - 108 mEq/L) 96 L Carbon Dioxide (21 - 33 mEq/l) 26 Anion Gap (0 - 20) 10 BUN (7 - 25 mg/dL) 71 H Creatinine (0.6 - 1.3 mg/dL) 1.9 H Glomerular Filtr Rate (80 - 90) 38.0 L Glucose (77 - 141 mg/dL) 250 H POC Glucose (70 - 110 MG/DL) 127 H 131 H 258 H Calcium (8.0 - 10.5 mg/dL) 8.0 Magnesium (1.6 - 2.6 mg/dL) 2.64 H 06/16 06/16 06/15 06/15 0320 0116 2214 2212 Chemistry POC Glucose (70 - 110 MG/DL) 287 H 275 H Ionized Calcium Leanne (1.09 - 1.30 MMOL/L) 1.01 L Magnesium (1.6 - 2.6 mg/dL) 2.61 H Total Bilirubin (0.0 - 1.0 mg/dL) 0.70 Direct Bilirubin (0.1 - 0.3 MG/DL) 0.30 Indirect Bilirubin (MG/DL) 0.40 AST (8 - 34 IUnit/L) 80 H ALT (10 - 49 IUnit/L) 81 H Total Alk Phosphatase (20 - 125 IUnit/L) 190 H Total Protein (6.4 - 8.2 g/dL) 6.1 L Albumin (3.4 - 5.0 g/dL) 2.90 L Hematology WBC (4.5 - 11.0 x10 3/uL) 10.2 RBC (4.00 - 5.60 x10 6/uL) 3.08 L Hgb (12.5 - 16.9 g/dL) 9.3 L Hct (37.5 - 50.7 %) 28.2 L MCV (81.0 - 99.0 fL) 91.6 MCH (27.0 - 33.0 pg) 30.2 MCHC (33.0 - 37.0 g/dL) 33.0 RDW (11.5 - 14.5 %) 14.2 Plt Count (150 - 400 x10 3/uL) 166 MPV (7.0 - 9.0 fL) 11.9 H Neut % (Auto) (56.0 - 77.0 %) 76.3 Lymph % (Auto) (14.0 - 32.0 %) 4.8 L [place] % (Auto) (4.8 - 9.0 %) 14.1 H Eos % (Auto) (0.3 - 3.7 %) 2.3 Baso % (Auto) (0.0 - 2.0 %) 0.4 Neut # (Auto) (2.0 - 7.6 x10 3/uL) 7.80 H Lymph # (Auto) (1.0 - 3.8 x10 3/uL) 0.49 L [place] # (Auto) (0.1 - 0.8 x10 3/uL) 1.44 H Eos # (Auto) (0.0 - 0.2 x10 3/uL) 0.24 H Baso # (Auto) (0.0 - 0.2 x10 3/uL) 0.04 Abs Immat Gran (auto) (0.00 - 0.03 x10 3/uL) 0.21 H Immature Gran % (0.0 - 2.0 %) 2.1 H Nucleated RBC % (0 - 0 %) 0.4 H Nucleated RBCs # (Man) (0.0 - 0.1 x10 3/uL) 0.04 06/154 2057 1835 1530 Chemistry Sodium (134 - 147 mEq/L) 129 L 129 L Potassium (3.4 - 5.0 mEq/L) 4.1 3.9 Chloride (100 - 108 mEq/L) 96 L 96 L Carbon Dioxide (21 - 33 mEq/l) 24 25 Anion Gap (0 - 20) 13 12 BUN (7 - 25 mg/dL) 67 H 74 H Creatinine (0.6 - 1.3 mg/dL) 1.9 H 2.1 H Glomerular Filtr Rate (80 - 90) 38.0 L 33.7 L Glucose (77 - 141 mg/dL) 297 H 196 H POC Glucose (70 - 110 MG/DL) 302 H 250 H Calcium (8.0 - 10.5 mg/dL) 8.2 8.6 Ionized Calcium Leanne (1.09 - 1.30 MMOL/L) 1.09 Magnesium (1.6 - 2.6 mg/dL) 2.38 06/15 06/15 1414 1217 Chemistry POC Glucose (70 - 110 MG/DL) 226 H 182 H Radiology data: Recent Impressions: RADIOLOGY - XR CHEST 1 V 06/16 0625 Report Impression - Status: SIGNED Entered: 06/17/2023 3826 IMPRESSION: No significant interval change. Impression By: [email or web address] - Orlando Baez M.D. Diagnosis, Assessment Plan Problem List/A P: 1. Edema 2. Hepatitis C 3. Cirrhosis 4. Elevated LFTs 5. Alcohol dependence 6. NSTEMI (non-ST elevated myocardial infarction) 7. CAD (coronary artery disease) 8. S/P CABG x 3 9. Shock 10. Hyponatremia 11. Acute on chronic renal failure 12. Diabetes type 2, controlled Free Text A P: PLan: PT/OT consulted. He will benefit from IRF once medically stable. He has been followed by cardiology, nephrology and cardiothoracic surgery. He has been undergoing IV Lasix, I just went on insulin given hyperglycemia with underlying diabetes type 2. Monitor volume status. PT OT to work on bed mobility, transfers, progressive gait, ADLs, balance and etc. while maintaining sternal precautions. IRF recommended. His is wanting [facility]. at 1827 RPT #:[id number] END OF REPORT [facility] 2023-06-17 11:19:00 [facility] Critical Care Progress Note REPORT#:[id number] REPORT STATUS: Signed REPORT INITIALIZATION DATE:06/17/23 TIME: 111 PATIENT: MINDY CARTER UNIT #: [id number] ROOM/BED: [place] [address] : 54 AGE: 67 SEX: M ATTEND: Talat Lord MD ADM AUTHOR: Светлана Arriaga MD REPT SERVICE DT/TIME: 06/17/23 1119 * ALL edits or amendments must be made on the electronic/computer document * Subjective Chief complaint: CABG x 3 (COSTA-LAD, SVG-Diag, SVG-OM) EVH (RGSV) ALAA PP HPI: This is a 67-year-old male with a past medical history significant for cirrhosis , high blood pressure, hyperlipidemia, diabetes, history of alcohol use, and CKD stage II admitted to the hospital with shortness of breath NSTEMI, underwent cardiac cath showed multivessel CAD. Patient underwent CABG x 3 (COSTA-LAD, SVG- Diag, SVG-OM)today. Intraoperatively patient received 400 cc crystalloid, 570 Cell Saver. Urine output was 200 cc. On arrival to ICU patient was intubated on ventilatory support. He was on 5 of Levophed, 10 of epinephrine and 0.5 of milrinone. Comments: Interval history- Patient is on 3 L nasal cannula. Diuresing well. Objective General VS/I O Last Documented: Result Date Time Temp 36.9 06/16 0800 O2 Delivery Nasal cannula 06/16 0800 O2 Flow Rate 2 06/16 0800 Pulse Ox 95 06/16 0433 FiO2 32 06/16 0433 B/P 99/59 06/16 0200 B/P Mean 73 06/16 0200 Pulse 67 06/16 0200 Resp 27 06/16 0200 24 hour I O ending at 0700: 06/16 0700 06/15 1900 Intake Total 135.10 923.00 Output Total 1095 2250 Balance -959.90 -1327.00 Intake, IV 85.10 173.00 Intake, Oral 50 750 Output, Urine 1095 2250 Patient 112.8 kg Weight Weight Standing scale Measurement Method PATIENT WEIGHT: Weight (lb): 248 Weight (oz): 10.9 Weight (kg): 112.800 Medications: Active Meds + DC'd Last 24 Hrs Insulin Glargine (Semglee) 30 UNIT DAILY SUBQ Atorvastatin Calcium (LIPITOR) 40 MG 2100 PO Insulin Human Lispro (HUMALOG) 0 AC HS SUBQ Insulin Glargine (Semglee) 10 UNIT ONCE ONE SUBQ (DC) Furosemide (LASIX 40 mg/4 mL INJECTION) 40 MG BID 9A 5P IV Insulin Glargine (Semglee) 30 UNIT DAILY SUBQ (DC) Potassium Chloride (POTASSIUM CHLORIDE 20MEQ TAB.ER) 20 MEQ ONCE ONE PO (DC) Potassium Chloride (POTASSIUM CHLORIDE 20MEQ TAB.ER) 40 MEQ ONCE ONE PO (DC) Insulin Glargine (Semglee) 20 UNIT DAILY SUBQ (DC) Fentanyl Citrate (SUBLIMAZE) 100 MCG PACU Q10MIN PRN PRN IV Fentanyl Citrate (SUBLIMAZE) 50 MCG PACU Q10MIN PRN PRN IV Hydralazine HCl (APRESOLINE) 5 MG PACU Q10MIN PRN PRN IV Hydrocodone Bitart/Acetaminophen (NORCO 5/325) 1 TAB PACU ONCE PO (CKD) Hydromorphone HCl (DILAUDID) 1 MG PACU Q10MIN PRN PRN IV Hydromorphone HCl (DILAUDID) 0.5 MG PACU Q5MIN PRN PRN IV Insulin Human Lispro (HUMALOG) 0 PACU ONCE PRN SUBQ Labetalol HCl (labetalol) 5 MG PACU Q10MIN PRN PRN IV Meperidine HCl (MEPERIDINE HCL/PF) 12.5 MG PACU ONCE PRN IV Morphine Sulfate (morphine SULFATE) 2 MG PACU Q10MIN PRN PRN IV Ondansetron HCl (ZOFRAN) 4 MG PACU ONCE PRN IV Ropivacaine (NAROPIN 0.5% 150 MG/30mL) 150 MG ASDIR PRN LOCAL Tramadol HCl (ULTRAM) 50 MG PACU ONCE PO (CKD) Insulin Glargine (Semglee) 40 UNIT BEDTIME SUBQ Ipratropium [place] (ATROVENT) 500 MCG RTQ2H PRN PRN INH Cyanocobalamin (Vitamin B-12 500 mcg tab) 500 MCG DAILY PO Ferrous Sulfate (FERROUS SULFATE) 325 MG DAILY PO Bisacodyl (DULCOLAX) 10 MG ONCE PRN RECTAL Magnesium Hydroxide (MILK OF MAGNESIA) 30 ML ONCE PRN PO Furosemide (LASIX) 240 MG Q24H IV (DC) Sodium Chloride (SODIUM CHLORIDE 0.9%) 24 ML Vasopressin (VASOSTRICT 20 Unit/NS 100ML) 100 ML ASDIR IV (CKD) Dopamine HCl/Dextrose (DOPamine 400MG/D5W 250ML) 250 ML ASDIR IV Epinephrine (ADRENALIN CHLORIDE) 4 MG ASDIR IV Sodium Chloride (SODIUM CHLORIDE 0.9%) 246 ML Melatonin (Melatonin) 6 MG BEDTIME PRN PO Clopidogrel Bisulfate (Plavix) 75 MG DAILY PO Polyethylene Glycol (MIRALAX) 17 GM DAILY PO Pantoprazole (PROTONIX) 40 MG DAILY@0600 PO Milrinone Lactate/Dextrose (MILRINONE 20MG/D5W 100ML) 100 ML TITRATE IV (CKD) Aspirin (ASPIRIN) 81 MG DAILY PO Amiodarone HCl (CORDARONE) 200 MG TID PO Docusate Sodium (COLACE) 100 MG BID PO Metoprolol Tartrate (LOPRESSOR) 12.5 MG Q12HR PO Sennosides (Senna Lax 8.6 MG TABLET) 17.2 MG BEDTIME PO Calcium Chloride (CALCIUM CHLORIDE) 1 GM ASDIR PRN IV Dextrose/Water (DEXTROSE 10% IN WATER) 125 ML ASDIR PRN IV (CKD) Dextrose/Water (DEXTROSE 10% IN WATER) 250 ML ASDIR PRN IV (CKD) Insulin Human Regular (HumuLIN R) 100 UNIT ASDIR IV (CKD) Sodium Chloride (SODIUM CHLORIDE 0.9%) 99 ML Magnesium Sulfate (MAGNESIUM SULFATE 4GM/SWFI 100ML) 100 ML ASDIR PRN IV Magnesium Sulfate (MAGNESIUM SULFATE 2GM/SWFI 50ML) 50 ML ASDIR PRN IV Magnesium Sulfate/Dextrose (MAGNESIUM SULFATE 1GM/D5W 100ML) 100 ML ASDIR PRN IV Nitroglycerin/Dextrose (NITROGLYCERIN 50,000MCG/D5W 250ML) 250 ML ASDIR IV Norepinephrine Bitartrate (NOREPINEPHRINE 8 MG/NS 250 ML) 250 ML TITRATE IV Ondansetron HCl (ZOFRAN) 4 MG Q6H PRN PRN IV Oxycodone HCl (ROXICODONE) 5 MG Q4H PRN PRN PO (DC) Oxycodone HCl (ROXICODONE) 10 MG Q4H PRN PRN PO (DC) Potassium Chloride (KCL 20MEQ/SWFI 100ML) 100 ML ASDIR PRN IV Sodium Bicarbonate (SODIUM BICARBONATE) 50 MEQ ASDIR PRN IV Sodium Chloride (SODIUM CHLORIDE 0.9%) 1,000 ML .Q20H IV Sodium Chloride (SODIUM CHLORIDE 0.9%) 250 ML Q24H IV Lactulose (LACTULOSE) 10 GM DAILY PRN PRN PO Thiamine HCl (THIAMINE HCL) 100 MG DAILY PO Physical Exam Head/eyes: atraumatic, clear cornea, EOMI Neck: RIJ CVL Cardiovascular: normal S1/S2 Respiratory: symmetric expansion Abdomen: soft, non-tender, no mass/organomegaly Extremities: edema (2+) Neuro/BUSINESS AREA MANAGER: alert, no motor deficits Results Findings/data: Laboratory Tests 06/16 0432 Blood Gas Puncture Site R Brach O2 Saturation (90 - 100 %) 95.4 ABG pH (7.35 - 7.45) 7.450 ABG pCO2 (35.0 - 45 mmHg) 39.6 ABG pO2 (80 - 100.0 mmHg) 73.0 L ABG PO2/FiO2 Ratio (mm/Hg) 228.10 ABG HCO3 (22.0 - 26.0 MMOL/L) 27.6 H ABG Total CO2 28.9 ABG Base Excess (-4.0 - 4.0 MMOL/L) 3.6 Mabel Test Positive Temperature (F) 98 O2 Delivery Device Cannula FiO2 (%) 32.0 Laboratory Tests 06/16 06/16 06/16 06/16 06/16 0750 0650 0321 0320 0320 Chemistry Sodium (134 - 147 mEq/L) 129 L Potassium (3.4 - 5.0 mEq/L) 3.9 Chloride (100 - 108 mEq/L) 96 L Carbon Dioxide (21 - 33 mEq/l) 26 Anion Gap (0 - 20) 10 BUN (7 - 25 mg/dL) 71 H Creatinine (0.6 - 1.3 mg/dL) 1.9 H Glomerular Filtr Rate (80 - 90) 38.0 L Glucose (77 - 141 mg/dL) 250 H POC Glucose (70 - 110 MG/DL) 127 H 131 H 258 H Calcium (8.0 - 10.5 mg/dL) 8.0 Magnesium (1.6 - 2.6 mg/dL) 2.64 H Total Bilirubin (0.0 - 1.0 mg/dL) 0.70 Direct Bilirubin (0.1 - 0.3 MG/DL) 0.30 Indirect Bilirubin (MG/DL) 0.40 AST (8 - 34 IUnit/L) 80 H ALT (10 - 49 IUnit/L) 81 H Total Alk Phosphatase (20 - 125 IUnit/L) 190 H Total Protein (6.4 - 8.2 g/dL) 6.1 L Albumin (3.4 - 5.0 g/dL) 2.90 L 06/16 06/15 06/15 06/15 06/15 0116 2214 2212 4 7 Chemistry Sodium (134 - 147 mEq/L) 129 L Potassium (3.4 - 5.0 mEq/L) 4.1 Chloride (100 - 108 mEq/L) 96 L Carbon Dioxide (21 - 33 mEq/l) 24 Anion Gap (0 - 20) 13 BUN (7 - 25 mg/dL) 67 H Creatinine (0.6 - 1.3 mg/dL) 1.9 H Glomerular Filtr Rate (80 - 90) 38.0 L Glucose (77 - 141 mg/dL) 297 H POC Glucose (70 - 110 MG/DL) 287 H 275 H 302 H Calcium (8.0 - 10.5 mg/dL) 8.2 Ionized Calcium Leanne (1.09 - 1.30 MMOL/L) 1.01 L Magnesium (1.6 - 2.6 mg/dL) 2.61 H 06/15 06/15 06/15 06/15 1835 1530 1414 1217 Chemistry Sodium (134 - 147 mEq/L) 129 L Potassium (3.4 - 5.0 mEq/L) 3.9 Chloride (100 - 108 mEq/L) 96 L Carbon Dioxide (21 - 33 mEq/l) 25 Anion Gap (0 - 20) 12 BUN (7 - 25 mg/dL) 74 H Creatinine (0.6 - 1.3 mg/dL) 2.1 H Glomerular Filtr Rate (80 - 90) 33.7 L Glucose (77 - 141 mg/dL) 196 H POC Glucose (70 - 110 MG/DL) 250 H 226 H 182 H Calcium (8.0 - 10.5 mg/dL) 8.6 Ionized Calcium Leanne (1.09 - 1.30 MMOL/L) 1.09 Magnesium (1.6 - 2.6 mg/dL) 2.38 Laboratory Tests 06/16 0320 Hematology WBC (4.5 - 11.0 x10 3/uL) 10.2 RBC (4.00 - 5.60 x10 6/uL) 3.08 L Hgb (12.5 - 16.9 g/dL) 9.3 L Hct (37.5 - 50.7 %) 28.2 L MCV (81.0 - 99.0 fL) 91.6 MCH (27.0 - 33.0 pg) 30.2 MCHC (33.0 - 37.0 g/dL) 33.0 RDW (11.5 - 14.5 %) 14.2 Plt Count (150 - 400 x10 3/uL) 166 MPV (7.0 - 9.0 fL) 11.9 H Neut % (Auto) (56.0 - 77.0 %) 76.3 Lymph % (Auto) (14.0 - 32.0 %) 4.8 L [place] % (Auto) (4.8 - 9.0 %) 14.1 H Eos % (Auto) (0.3 - 3.7 %) 2.3 Baso % (Auto) (0.0 - 2.0 %) 0.4 Neut # (Auto) (2.0 - 7.6 x10 3/uL) 7.80 H Lymph # (Auto) (1.0 - 3.8 x10 3/uL) 0.49 L [place] # (Auto) (0.1 - 0.8 x10 3/uL) 1.44 H Eos # (Auto) (0.0 - 0.2 x10 3/uL) 0.24 H Baso # (Auto) (0.0 - 0.2 x10 3/uL) 0.04 Abs Immat Gran (auto) (0.00 - 0.03 x10 3/uL) 0.21 H Immature Gran % (0.0 - 2.0 %) 2.1 H Nucleated RBC % (0 - 0 %) 0.4 H Nucleated RBCs # (Man) (0.0 - 0.1 x10 3/uL) 0.04 Laboratory Tests 06/17/23 0320: [Embedded Image Not Available] 06/17/23 0320: [Embedded Image Not Available] 06/16/23 2114: [Embedded Image Not Available] 06/16/23 1530: [Embedded Image Not Available] Radiology data Recent Impressions: RADIOLOGY - XR CHEST 1 V 06/16 0625 Report Impression - Status: SIGNED Entered: 06/17/2023 0828 IMPRESSION: No significant interval change. Impression By: [email or web address] - Orlando Baez M.D. Diagnosis, Assessment Plan Free text A P: Multivessel CAD s/p CABG x 3 (COSTA-LAD, SVG-Diag, SVG-OM) ALAA Postoperative respiratory insufficiency following cardiac surgery Postoperative pain Shock Leukocytosis Liver cirrhosis EtOH dependence Increasing LFTs with underlying liver cirrhosis. Plan: BUSINESS AREA MANAGER: Awake and alert. No signs and symptoms of alcohol withdrawal. He received multivitamin during earlier days of admission. Cardiovascular: EF about 55 to 60% Off all pressors. On aspirin and Plavix. Continue beta-huy and amiodarone. Respiratory: Patient is on 3 L ABG and chest x-ray reviewed. Pulmonary toilet. Incentive spirometry. GI: Cardiac diet. LFTs improving, u/s showing liver cirrhosis and nothing acute. Elevation multifactorial including shock and amiodarone. Hematology: Hemoglobin is stable. SCDs. Endocrine: Insulin for glucose control. Glucose levels still elevated. Increase Lantus to 30u daily and 40 units nightly ID: Perioperative prophylaxis Renal: Creatinine is improving. Monitor the BMP , on lasix 40 BID Full code Rehab consult Updated Mindy on current plan of care. Total critical care time excluding procedures was 34 minutes. Consultants: cardiology, cardiovascular surgery Quality: Gen Med Crit Care VTE Prophylaxis VTE prophylaxis initiated: yes Advanced Care Plan 65 or Older Discussed with: patient Discussion included: living will, power of defense attorney, code status at 1130 RPT #:[id number] END OF REPORT [facility] 2023-06-17 07:23:00 [facility] ([facility] Nephrology Progress Note REPORT#:[id number] REPORT STATUS: Signed REPORT INITIALIZATION DATE:06/17/23 TIME: 722 PATIENT: MINDY CARTER UNIT #: [id number] ROOM/BED: [place] [id number] : 54 AGE: 67 SEX: M ATTEND: Talat Lord MD ADM AUTHOR: Nkechi Bacon MD REPT SERVICE DT/TIME: 06/17/23722 * ALL edits or amendments must be made on the electronic/computer document * Subjective Chief complaint: SOB, CP HPI: 67-year-old male known to have hypertension, diabetes mellitus, hyperlipidemia, liver cirrhosis, chronic kidney disease who presented with shortness of breath and chest tightness and on further workup was found to have multivessel disease therefore he was being worked up for possible CABG. He said he had been diagnosed recently with chronic kidney disease but did not have any nausea, orthopnea, cramping, change of taste, involuntary movements, urinary complaints. He denied any chronic use of NSAIDs. He said for most part his blood pressures were controlled at home. 06/16 Patient denying all systemic review. Objective General VS/I O: Vital Signs: Date Time Temp Pulse Resp B/P B/P Pulse O2 O2 Flow FiO2 Mean Ox Delivery Rate 06/17 1645 36.3 72 18 126/65 0.0 98 06/17 1102 36.7 68 18 115/65 0.0 98 06/17 0901 Nasal 3 96 cannula 06/17 0800 Nasal 2 cannula 06/17 0720 36.7 70 18 120/90 0.0 98 06/17 0600 71 23 124/70 91 90 06/17 0501 69 34 127/57 82 95 06/17 0344 36.6 69 18 108/59 0.0 98 Nasal cannula 06/17 0300 69 21 108/59 79 97 06/17 0200 69 27 118/64 85 100 06/17 0000 68 20 113/65 84 95 06/16 2315 36.6 69 18 111/60 0.0 97 Nasal cannula 06/16 2100 71 28 108/57 76 93 06/16 2048 92 Nasal 1 cannula 06/16 2013 36.8 75 18 120/57 0.0 92 Nasal cannula 06/17 1999 Nasal 1 cannula 06/17 1999 74 37 120/57 82 93 06/16 1900 73 32 119/62 85 93 24 hour I O ending at 0700: 06/17 0700 06/16 1900 Intake Total 200 1157 Output Total 300 1805 Balance -100 -648 Intake, Oral 200 920 Intake, Oral 237 Supplement Number 1 Bowel Movements Output, Urine 300 1805 Patient 112.8 kg Weight Weight Standing scale Measurement Method PATIENT WEIGHT: Weight (lb): 248 Weight (oz): 10.9 Weight (kg): 112.800 Physical Exam General appearance: alert, awake, oriented Head/eyes: atraumatic, EOMI ENT: moist mucous membranes, normal nose Neck: no JVD, no lymphadenopathy Cardiovascular: normal heart sounds, regular rate and rhythm Respiratory: aerating well, clear to auscultation Abdomen: non-tender, soft Genitourinary: no bladder distention, no flank pain Extremities: no edema, no gangrene, no swelling Diagnosis, Assessment Plan Free Text A P: 67-year-old male known to have hypertension, diabetes mellitus, hyperlipidemia, liver cirrhosis, chronic kidney disease who presented with shortness of breath and chest tightness and on further workup was found to have multivessel disease therefore he was being worked up for possible CABG. He said he had been diagnosed recently with chronic kidney disease but did not have any nausea, orthopnea, cramping, change of taste, involuntary movements, urinary complaints. He denied any chronic use of NSAIDs. He said for most part his blood pressures were controlled at home. Nephrology following for: 1. CKD:: Most recent creatinine was staying in normal range therefore plan is to keep mean arterial pressure above 65 and avoid nephrotoxic agents. 2. Hypertension: Mostly controlled therefore plan is to continue same. 3. Hypervolemia: Plan is to monitor input and output closely and treat with Lasix if needed. His echocardiogram showed an EF of 55 to 60%. 4. Chest pain/shortness of breath: He had been worked up with left heart cath and received contrast recently. Plan was to monitor closely for contrast- induced nephropathy and keep hydrated. 06/16 1. NIYA on CKD: Most likely cardiorenal.Kidney function stable . 2. Hypotension:He is post op CABG and is requiring pressor support, plan to monitor and keep MAP>65. Resolved 3. Hypervolemia: He is post op CABG and has recieved fluids during surgey, he is improving volume slowly with lasix drip.Plan to wean drip as his oxygenation improves. Improved. 4. Chest pain/shortness of breath: s/p CABG 06/10. Consultants: cardiology, cardiovascular surgery at 1826 RPT #:[id number] END OF REPORT [facility] 2023-06-17 07:10:00 [facility] ([facility] Cardiology Progress Note REPORT#:[id number] REPORT STATUS: Signed REPORT INITIALIZATION DATE:06/17/23 TIME: 709 PATIENT: MINDY CARTER UNIT #: [id number] ROOM/BED: [place] [address] : 54 AGE: 67 SEX: M ATTEND: Talat Lord MD ADM AUTHOR: Clayton Nathan MD REPT SERVICE DT/TIME: 06/17/23 0710 * ALL edits or amendments must be made on the electronic/computer document * Subjective Free Text Subj Notes Free Text Subj Notes: Cardiology progress note Date of service: 06/17/2023 Chief complaint/reason for consult: NSTEMI Patient seen and examined, chart reviewed, questions/concerns addressed with RN. Current medication and vitals reviewed. HPI and interval Hx: Creatinine improving adequate urine output Subjective: No chest pain today. Much better Objective: Vital Signs Date Temp Pulse Resp B/P B/P Mean Pulse Ox FiO2 06/15-06/16 97.5-97.9 66-73 19-34 99-128/56-76 73-88 92-100 32 GEN: Alert and cooperative, no acute distress. HEENT: NC/AT, EOMI CARD: RRR, normal S1/S2 LUNGS: CTA w/o added sounds, GBAE. Assessment, Impression and medical decision making: -NSTEMI -Acute on chronic diastolic congestive heart -Morbid obesity -Hypertension, hyperlipidemia, type 2 diabetes mellitus -NIYA Plan/recommendation: -Status post CABG and left atrial pended amputation -Continue with IV diuresis per nephrology -Continue with aspirin Plavix, no statin due to liver cirrhosis, low-dose beta- blockers -Anticipate discharge in the next 24 hours. at 0946 RPT #:[id number] END OF REPORT [facility] 2023-06-16 20:15:00 [facility] Nephrology Progress Note REPORT#:[id number] REPORT STATUS: Signed REPORT INITIALIZATION DATE:06/16/23 TIME: 2014 PATIENT: MINDY CARTER UNIT #: [id number] ROOM/BED: [place] [address] : 54 AGE: 67 SEX: M ATTEND: Talat Lord MD ADM AUTHOR: Nkechi Bacon MD REPT SERVICE DT/TIME: 06/16/232014 * ALL edits or amendments must be made on the electronic/computer document * Subjective Chief complaint: SOB, CP HPI: 67-year-old male known to have hypertension, diabetes mellitus, hyperlipidemia, liver cirrhosis, chronic kidney disease who presented with shortness of breath and chest tightness and on further workup was found to have multivessel disease therefore he was being worked up for possible CABG. He said he had been diagnosed recently with chronic kidney disease but did not have any nausea, orthopnea, cramping, change of taste, involuntary movements, urinary complaints. He denied any chronic use of NSAIDs. He said for most part his blood pressures were controlled at home. 06/15 Patient on oxygen no distress.Slowly improving. Objective General VS/I O: Vital Signs: Date Time Temp Pulse Resp B/P B/P Pulse O2 O2 Flow FiO2 Mean Ox Delivery Rate 06/16 0433 95 Nasal 3 32 cannula 06/16 0200 67 27 99/59 73 93 06/16 0100 67 21 104/56 73 95 06/16 0000 66 19 104/59 79 95 06/15 2300 66 27 100/59 78 94 06/15 2200 68 25 100/58 73 95 06/15 2111 93 Nasal 3 32 cannula 06/15 2100 72 23 111/58 79 96 06/15 2001 73 31 112/58 81 94 06/15 2000 36.6 06/15 2000 High flow 3 nasal cannula 06/15 1901 71 32 102/76 85 98 06/15 1801 71 34 121/59 83 98 06/15 1707 71 29 119/68 88 97 06/15 1600 72 28 104/69 82 95 06/15 1532 69 32 104/63 78 99 06/15 1529 98 High flow 4 nasal cannula 06/15 1400 71 33 124/76 88 96 06/15 1300 71 21 108/66 82 98 06/15 1200 69 22 115/58 81 92 06/15 1100 72 27 110/64 82 97 06/15 1012 72 28 128/61 86 95 06/15 0900 68 19 106/57 76 100 06/15 0800 36.4 06/15 0800 71 30 113/63 78 98 06/15 0758 96 High flow 6 nasal cannula 06/15 0730 High flow 6 nasal cannula 24 hour I O ending at 0700: 06/16 0700 06/15 1900 Intake Total 135.10 923.00 Output Total 1095 2250 Balance -959.90 -1327.00 Intake, IV 85.10 173.00 Intake, Oral 50 750 Output, Urine 1095 2250 Patient 112.8 kg Weight Weight Standing scale Measurement Method PATIENT WEIGHT: Weight (lb): 248 Weight (oz): 10.9 Weight (kg): 112.800 Physical Exam General appearance: alert, awake, oriented Head/eyes: atraumatic, EOMI ENT: moist mucous membranes, normal nose Neck: no JVD, no lymphadenopathy Cardiovascular: normal heart sounds, regular rate and rhythm Respiratory: aerating well, clear to auscultation Abdomen: non-tender, soft Genitourinary: no bladder distention, no flank pain Extremities: no edema, no gangrene, no swelling Diagnosis, Assessment Plan Free Text A P: 67-year-old male known to have hypertension, diabetes mellitus, hyperlipidemia, liver cirrhosis, chronic kidney disease who presented with shortness of breath and chest tightness and on further workup was found to have multivessel disease therefore he was being worked up for possible CABG. He said he had been diagnosed recently with chronic kidney disease but did not have any nausea, orthopnea, cramping, change of taste, involuntary movements, urinary complaints. He denied any chronic use of NSAIDs. He said for most part his blood pressures were controlled at home. Nephrology following for: 1. CKD:: Most recent creatinine was staying in normal range therefore plan is to keep mean arterial pressure above 65 and avoid nephrotoxic agents. 2. Hypertension: Mostly controlled therefore plan is to continue same. 3. Hypervolemia: Plan is to monitor input and output closely and treat with Lasix if needed. His echocardiogram showed an EF of 55 to 60%. 4. Chest pain/shortness of breath: He had been worked up with left heart cath and received contrast recently. Plan was to monitor closely for contrast- induced nephropathy and keep hydrated. 06/15 1. NIYA on CKD: Most likely cardiorenal.He is on lasix drip and slowly improving volume and renal function. 2. Hypotension:He is post op CABG and is requiring pressor support, plan to monitor and keep MAP>65. 3. Hypervolemia: He is post op CABG and has recieved fluids during surgey, he is improving volume slowly with lasix drip.Plan to wean drip as his oxygenation improves. 4. Chest pain/shortness of breath: s/p CABG 06/10. Consultants: cardiology, cardiovascular surgery at 0723 RPT #:[id number] END OF REPORT [facility] 2023-06-16 17:11:00 [facility] ([facility]) Critical Care Progress Note REPORT#:[id number] REPORT STATUS: Signed REPORT INITIALIZATION DATE:06/16/23 TIME: 1710 PATIENT: MINDY CARTER UNIT #: [id number] ROOM/BED: [place] [address] : 54 AGE: 67 SEX: M ATTEND: Talat Lord MD ADM AUTHOR: Светлана Arriaga MD REPT SERVICE DT/TIME: 06/16/23 7751 * ALL edits or amendments must be made on the electronic/computer document * Subjective Chief complaint: CABG x 3 (COSTA-LAD, SVG-Diag, SVG-OM) EVH (RGSV) ALAA PP HPI: This is a 67-year-old male with a past medical history significant for cirrhosis , high blood pressure, hyperlipidemia, diabetes, history of alcohol use, and CKD stage II admitted to the hospital with shortness of breath NSTEMI, underwent cardiac cath showed multivessel CAD. Patient underwent CABG x 3 (COSTA-LAD, SVG- Diag, SVG-OM)today. Intraoperatively patient received 400 cc crystalloid, 570 Cell Saver. Urine output was 200 cc. On arrival to ICU patient was intubated on ventilatory support. He was on 5 of Levophed, 10 of epinephrine and 0.5 of milrinone. Comments: Interval history- Patient is on lasix drip at 5mg/hr Objective General VS/I O Last Documented: Result Date Time Pulse Ox 98 06/15 1529 O2 Delivery High flow nasal cannula 06/15 1529 O2 Flow Rate 4 06/15 1529 Temp 36.4 06/15 0800 Pulse 69 06/15 0628 Resp 30 06/15 0628 B/P 111/61 06/15 0604 B/P Mean 79 06/15 0604 FiO2 52 06/14 0417 24 hour I O ending at 0700: 06/15 0700 06/14 1900 Intake Total 480 1104.00 Output Total 2250 2150 Balance -1770 -1046.00 Intake, IV 384.00 Intake, Oral 480 720 Output, Urine 2250 2150 PATIENT WEIGHT: Weight (lb): 246 Weight (oz): 11.16 Weight (kg): 111.900 Medications: Active Meds + DC'd Last 24 Hrs Potassium Chloride (POTASSIUM CHLORIDE 20MEQ TAB.ER) 40 MEQ ONCE ONE PO (DC) Insulin Glargine (Semglee) 20 UNIT DAILY SUBQ Potassium Chloride (POTASSIUM CHLORIDE 20MEQ TAB.ER) 40 MEQ ONCE ONE PO (DC) Potassium Chloride (POTASSIUM CHLORIDE 20MEQ TAB.ER) 20 MEQ ONCE ONE PO (DC) Potassium Chloride (POTASSIUM CHLORIDE 20MEQ TAB.ER) 40 MEQ ONCE ONE PO (DC) Potassium Chloride (POTASSIUM CHLORIDE 20MEQ TAB.ER) 40 MEQ Q2H PO (DC) Calcium Gluconate (Calcium Gluconate 2 GM/NS 100 mL (B2)) 100 ML ONCE ONE IV (DC) Fentanyl Citrate (SUBLIMAZE) 100 MCG PACU Q10MIN PRN PRN IV Fentanyl Citrate (SUBLIMAZE) 50 MCG PACU Q10MIN PRN PRN IV Hydralazine HCl (APRESOLINE) 5 MG PACU Q10MIN PRN PRN IV Hydrocodone Bitart/Acetaminophen (NORCO 5/325) 1 TAB PACU ONCE PO (CKD) Hydromorphone HCl (DILAUDID) 1 MG PACU Q10MIN PRN PRN IV Hydromorphone HCl (DILAUDID) 0.5 MG PACU Q5MIN PRN PRN IV Insulin Human Lispro (HUMALOG) 0 PACU ONCE PRN SUBQ Labetalol HCl (labetalol) 5 MG PACU Q10MIN PRN PRN IV Meperidine HCl (MEPERIDINE HCL/PF) 12.5 MG PACU ONCE PRN IV Morphine Sulfate (morphine SULFATE) 2 MG PACU Q10MIN PRN PRN IV Ondansetron HCl (ZOFRAN) 4 MG PACU ONCE PRN IV Ropivacaine (NAROPIN 0.5% 150 MG/30mL) 150 MG ASDIR PRN LOCAL Tramadol HCl (ULTRAM) 50 MG PACU ONCE PO (CKD) Insulin Glargine (Semglee) 40 UNIT BEDTIME SUBQ Ipratropium [place] (ATROVENT) 500 MCG RTQ2H PRN PRN INH Cyanocobalamin (Vitamin B-12 500 mcg tab) 500 MCG DAILY PO Ferrous Sulfate (FERROUS SULFATE) 325 MG DAILY PO Bisacodyl (DULCOLAX) 10 MG ONCE PRN RECTAL Magnesium Hydroxide (MILK OF MAGNESIA) 30 ML ONCE PRN PO Furosemide (LASIX) 240 MG Q24H IV (CKD) Sodium Chloride (SODIUM CHLORIDE 0.9%) 24 ML Vasopressin (VASOSTRICT 20 Unit/NS 100ML) 100 ML ASDIR IV (CKD) Dopamine HCl/Dextrose (DOPamine 400MG/D5W 250ML) 250 ML ASDIR IV Epinephrine (ADRENALIN CHLORIDE) 4 MG ASDIR IV Sodium Chloride (SODIUM CHLORIDE 0.9%) 246 ML Melatonin (Melatonin) 6 MG BEDTIME PRN PO Clopidogrel Bisulfate (Plavix) 75 MG DAILY PO Polyethylene Glycol (MIRALAX) 17 GM DAILY PO Pantoprazole (PROTONIX) 40 MG DAILY@0600 PO Milrinone Lactate/Dextrose (MILRINONE 20MG/D5W 100ML) 100 ML TITRATE IV (CKD) Aspirin (ASPIRIN) 81 MG DAILY PO Amiodarone HCl (CORDARONE) 200 MG TID PO Docusate Sodium (COLACE) 100 MG BID PO Gabapentin (NEURONTIN) 200 MG BID PO (DC) Metoprolol Tartrate (LOPRESSOR) 12.5 MG Q12HR PO Mupirocin (BACTROBAN 2% 22 GM OINTMENT) 1 APPLIC BID NASAL (DC) Sennosides (Senna Lax 8.6 MG TABLET) 17.2 MG BEDTIME PO Calcium Chloride (CALCIUM CHLORIDE) 1 GM ASDIR PRN IV Dextrose/Water (DEXTROSE 10% IN WATER) 125 ML ASDIR PRN IV (CKD) Dextrose/Water (DEXTROSE 10% IN WATER) 250 ML ASDIR PRN IV (CKD) Insulin Human Regular (HumuLIN R) 100 UNIT ASDIR IV (CKD) Sodium Chloride (SODIUM CHLORIDE 0.9%) 99 ML Magnesium Sulfate (MAGNESIUM SULFATE 4GM/SWFI 100ML) 100 ML ASDIR PRN IV Magnesium Sulfate (MAGNESIUM SULFATE 2GM/SWFI 50ML) 50 ML ASDIR PRN IV Magnesium Sulfate/Dextrose (MAGNESIUM SULFATE 1GM/D5W 100ML) 100 ML ASDIR PRN IV Nitroglycerin/Dextrose (NITROGLYCERIN 50,000MCG/D5W 250ML) 250 ML ASDIR IV Norepinephrine Bitartrate (NOREPINEPHRINE 8 MG/NS 250 ML) 250 ML TITRATE IV Ondansetron HCl (ZOFRAN) 4 MG Q6H PRN PRN IV Oxycodone HCl (ROXICODONE) 5 MG Q4H PRN PRN PO Oxycodone HCl (ROXICODONE) 10 MG Q4H PRN PRN PO Potassium Chloride (KCL 20MEQ/SWFI 100ML) 100 ML ASDIR PRN IV Sodium Bicarbonate (SODIUM BICARBONATE) 50 MEQ ASDIR PRN IV Sodium Chloride (SODIUM CHLORIDE 0.9%) 1,000 ML .Q20H IV Sodium Chloride (SODIUM CHLORIDE 0.9%) 250 ML Q24H IV Lactulose (LACTULOSE) 10 GM DAILY PRN PRN PO Thiamine HCl (THIAMINE HCL) 100 MG DAILY PO Physical Exam Head/eyes: atraumatic, clear cornea, EOMI Neck: RIJ CVL Cardiovascular: normal S1/S2 Respiratory: symmetric expansion Abdomen: soft, non-tender, no mass/organomegaly Extremities: edema (2+) Neuro/BUSINESS AREA MANAGER: alert, no motor deficits Results Findings/data: Laboratory Tests 06/15 0319 Blood Gas Puncture Site Art Line O2 Saturation (90 - 100 %) 97.5 ABG pH (7.35 - 7.45) 7.412 ABG pCO2 (35.0 - 45 mmHg) 39.5 ABG pO2 (80 - 100.0 mmHg) 95.1 ABG HCO3 (22.0 - 26.0 MMOL/L) 25.1 ABG Total CO2 26.3 ABG Base Excess (-4.0 - 4.0 MMOL/L) 0.5 ABG Hematocrit (37.5 - 50.7 %) 37 L ABG Hemoglobin (12.5 - 16.9 G/DL) 12.7 Mabel Test N/A Sodium (134 - 147 mmol/L) 131 L Potassium (3.4 - 5.0 mmol/L) 3.8 Chloride (100 - 108 mmol/L) 96 L Ionized Calcium (1.12 - 1.32 MMOL/L) 1.17 Lactic Acid (0.9 - 1.7 mmol/l) 0.6 L O2 Delivery Device NC Laboratory Tests 06/15 06/15 06/15 06/15 06/15 1530 1414 1217 0943 0835 Chemistry Sodium (134 - 147 mEq/L) 129 L 132 L Potassium (3.4 - 5.0 mEq/L) 3.9 3.9 Chloride (100 - 108 mEq/L) 96 L 96 L Carbon Dioxide (21 - 33 mEq/l) 25 28 Anion Gap (0 - 20) 12 13 BUN (7 - 25 mg/dL) 74 H 81 H Creatinine (0.6 - 1.3 mg/dL) 2.1 H 2.1 H Glomerular Filtr Rate (80 - 90) 33.7 L 33.7 L Glucose (77 - 141 mg/dL) 196 H 173 H POC Glucose (70 - 110 MG/DL) 226 H 182 H 171 H Calcium (8.0 - 10.5 mg/dL) 8.6 8.6 Ionized Calcium Leanne (1.09 - 1.30 MMOL/L) 1.09 1.14 Magnesium (1.6 - 2.6 mg/dL) 2.38 2.45 06/15 06/15 06/15 06/15 06/15 0558 0406 0319 0316 0058 Chemistry Sodium (134 - 147 mEq/L) 131 L Potassium (3.4 - 5.0 mEq/L) 3.8 Chloride (100 - 108 mEq/L) 97 L Carbon Dioxide (21 - 33 mEq/l) 25 Anion Gap (0 - 20) 13 BUN (7 - 25 mg/dL) 79 H Creatinine (0.6 - 1.3 mg/dL) 2.1 H POC Creatinine (0.8 - 1.3 mg/dL) 2.5 H Glomerular Filtr Rate (80 - 90) 33.7 L Glucose (77 - 141 mg/dL) 107 POC Glucose (70 - 110 MG/DL) 137 H 97 116 H POC Glucose (mg/dL) (70 - 110 MG/DL) 93 Calcium (8.0 - 10.5 mg/dL) 8.6 Magnesium (1.6 - 2.6 mg/dL) 2.53 Total Bilirubin (0.0 - 1.0 mg/dL) 0.70 Direct Bilirubin (0.1 - 0.3 MG/DL) 0.40 H Indirect Bilirubin (MG/DL) 0.30 AST (8 - 34 IUnit/L) 99 H ALT (10 - 49 IUnit/L) 88 H Total Alk Phosphatase (20 - 125 IUnit/L) 134 H Total Protein (6.4 - 8.2 g/dL) 5.9 L Albumin (3.4 - 5.0 g/dL) 2.70 L 06/14 06/14 06/14 06/14 2251 2111 2105 1917 Chemistry Sodium (134 - 147 mEq/L) 128 L Potassium (3.4 - 5.0 mEq/L) 3.5 Chloride (100 - 108 mEq/L) 98 L Carbon Dioxide (21 - 33 mEq/l) 22 Anion Gap (0 - 20) 12 BUN (7 - 25 mg/dL) 77 H Creatinine (0.6 - 1.3 mg/dL) 2.2 H Glomerular Filtr Rate (80 - 90) 31.8 L Glucose (77 - 141 mg/dL) 228 H POC Glucose (70 - 110 MG/DL) 182 H 216 H 267 H Calcium (8.0 - 10.5 mg/dL) 8.7 Ionized Calcium Leanne (1.09 - 1.30 MMOL/L) 1.16 Magnesium (1.6 - 2.6 mg/dL) 2.63 H Laboratory Tests 06/15 0316 Hematology WBC (4.5 - 11.0 x10 3/uL) 11.3 H RBC (4.00 - 5.60 x10 6/uL) 3.15 L Hgb (12.5 - 16.9 g/dL) 9.6 L Hct (37.5 - 50.7 %) 28.9 L MCV (81.0 - 99.0 fL) 91.7 MCH (27.0 - 33.0 pg) 30.5 MCHC (33.0 - 37.0 g/dL) 33.2 RDW (11.5 - 14.5 %) 14.1 Plt Count (150 - 400 x10 3/uL) 143 L MPV (7.0 - 9.0 fL) 12.2 H Neut % (Auto) (56.0 - 77.0 %) 77.9 H Lymph % (Auto) (14.0 - 32.0 %) 5.0 L [place] % (Auto) (4.8 - 9.0 %) 12.6 H Eos % (Auto) (0.3 - 3.7 %) 3.4 Baso % (Auto) (0.0 - 2.0 %) 0.1 Neut # (Auto) (2.0 - 7.6 x10 3/uL) 8.82 H Lymph # (Auto) (1.0 - 3.8 x10 3/uL) 0.56 L [place] # (Auto) (0.1 - 0.8 x10 3/uL) 1.42 H Eos # (Auto) (0.0 - 0.2 x10 3/uL) 0.38 H Baso # (Auto) (0.0 - 0.2 x10 3/uL) 0.01 Abs Immat Gran (auto) (0.00 - 0.03 x10 3/uL) 0.11 H Immature Gran % (0.0 - 2.0 %) 1.0 Nucleated RBC % (0 - 0 %) 0.2 H Nucleated RBCs # (Man) (0.0 - 0.1 x10 3/uL) 0.02 Laboratory Tests 06/16/23 1530: [Embedded Image Not Available] 06/16/23 0943: [Embedded Image Not Available] 06/16/23 0316: [Embedded Image Not Available] 06/15/23 2111: [Embedded Image Not Available] Radiology data Recent Impressions: RADIOLOGY - XR CHEST 1 V 06/15 0608 Report Impression - Status: SIGNED Entered: 06/16/2023 0918 IMPRESSION: Cardiomegaly with small pleural effusions and left lower lobe consolidation, grossly unchanged from prior. Small left apical pneumothorax. Impression By: Osiel Fry M.D. Diagnosis, Assessment Plan Free text A P: Multivessel CAD s/p CABG x 3 (COSTA-LAD, SVG-Diag, SVG-OM) ALAA Postoperative respiratory insufficiency following cardiac surgery Postoperative pain Shock Leukocytosis Liver cirrhosis EtOH dependence Increasing LFTs with underlying liver cirrhosis. Plan: BUSINESS AREA MANAGER: Awake and alert. No signs and symptoms of alcohol withdrawal. He received multivitamin during earlier days of admission. Cardiovascular: EF about 55 to 60% Off all pressors. On aspirin and Plavix. Continue beta-huy and amiodarone. Discontinue chest tubes. Respiratory: Patient is on 4 L ABG and chest x-ray reviewed. Pulmonary toilet. Incentive spirometry. GI: Cardiac diet. LFTs improving, u/s showing liver cirrhosis and nothing acute. Elevation multifactorial including shock and amiodarone. Hematology: Hemoglobin is stable. SCDs. Endocrine: Insulin for glucose control. Glucose levels still elevated. Increase Lantus to 20u daily and 40 units nightly ID: Perioperative prophylaxis Renal: Creatinine is improving.decrease the rate to 5/hour. Monitor the BMP Full code Rehab consult Updated Mindy on current plan of care. Total critical care time excluding procedures was 40 minutes. Consultants: cardiology, cardiovascular surgery Quality: Gen Med Crit Care VTE Prophylaxis VTE prophylaxis initiated: yes Advanced Care Plan 65 or Older Discussed with: patient Discussion included: living will, power of defense attorney, code status at 1721 RPT #:[id number] END OF REPORT [facility] 2023-06-16 15:11:00 [facility] ([facility]) Clinical Note REPORT#:[id number] REPORT STATUS: Signed REPORT INITIALIZATION DATE:06/16/23 TIME: 1511 PATIENT: MINDY CARTER UNIT #: [id number] ROOM/BED: [place] [address] : 54 AGE: 67 SEX: M ATTEND: Talat Lord MD ADM AUTHOR: Jori Crandall MD REPT SERVICE DT/TIME: 06/16/23 1511 * ALL edits or amendments must be made on the electronic/computer document * Clinical Note Note: Procedure Type: Isolated CABG PERIOPERATIVE OUTCOME ESTIMATE % Operative Mortality 3.13% Morbidity Mortality 11.3% Stroke 1.23% Renal Failure 3.93% Reoperation 2.22% Prolonged Ventilation 6.37% Deep Sternal Wound Infection 0.47% Long Hospital Stay (>14 days) 9.28% Short Hospital Stay (<6 days)* 33.9% at 1511 RPT #:[id number] END OF REPORT [facility] 2023-06-16 14:58:00 [facility] ([facility]) Hospitalist Progress Note REPORT#:[id number] REPORT STATUS: Signed REPORT INITIALIZATION DATE:06/16/23 TIME: 145 PATIENT: MINDY CARTER UNIT #: [id number] ROOM/BED: [place] [address] : 54 AGE: 67 SEX: M ATTEND: Talat Lord MD ADM AUTHOR: Talat Lord MD REPT SERVICE DT/TIME: 06/16/23 1458 * ALL edits or amendments must be made on the electronic/computer document * Subjective Chief complaint: AT , SITTING IN CHAIR, STILL HAS LEG EDEMA HPI: This is a 67-year-old male with history of high blood pressure, hyperlipidemia, diabetes mellitus, syncope, neuropathy, alcohol use, liver cirrhosis, stage II CKD presents with shortness of breath that has been increasing since 2 days ago. Patient took extra dose of Aldactone and hydrochlorothiazide which did not help. Patient also reports chest tightness and is currently on 5 L of oxygen per nasal cannula. Patient says that he cannot lie down he gets short of breath when he lies down. He drinks whiskey about 3 shots a day. He has been having increasing edema in bilateral lower extremities. No headaches or dizziness. No other complaints elicited. Objective General VS/I O: Vital Signs: Date Time Temp Pulse Resp B/P B/P Pulse O2 O2 Flow FiO2 Mean Ox Delivery Rate 06/15 0800 97.5 06/15 0758 96 High flow 6 nasal cannula 06/15 0730 High flow 6 nasal cannula 06/15 0628 69 30 98 06/15 0604 68 19 111/61 79 98 06/15 0537 68 27 108/74 84 97 06/15 0500 63 16 104/58 76 99 06/15 0400 66 17 112/65 84 98 06/15 0353 100 High flow 6 nasal cannula 06/15 0300 64 15 99/56 71 99 06/15 0200 65 15 105/60 78 100 06/15 0100 65 21 95/56 71 97 06/15 0000 64 14 99/61 76 98 06/14 2300 64 20 98/57 73 97 06/14 2200 65 13 100/56 72 99 06/14 2108 98 High flow 8 nasal cannula 06/14 2100 66 17 109/60 79 97 06/14 2009 70 28 113/59 80 97 06/14 2000 High flow 8 nasal cannula 06/15 1999 71 28 95 06/14 1900 69 30 116/74 89 96 06/14 1801 68 23 123/71 91 98 06/14 1720 69 21 107/61 79 98 06/14 1700 69 22 99 06/14 1609 98 High flow 8 nasal cannula 06/14 1601 72 35 128/68 91 97 06/14 1500 92/67 75 06/14 1500 69 32 94 24 hour I O ending at 0700: 06/15 0700 06/14 1900 Intake Total 480 1104.00 Output Total 2250 2150 Balance -1770 -1046.00 Intake, IV 384.00 Intake, Oral 480 720 Output, Urine 2250 2150 PATIENT WEIGHT: Weight (lb): 246 Weight (oz): 11.16 Weight (kg): 111.900 Medications: Active Meds + DC'd Last 24 Hrs Insulin Glargine (Semglee) 20 UNIT DAILY SUBQ Potassium Chloride (POTASSIUM CHLORIDE 20MEQ TAB.ER) 40 MEQ ONCE ONE PO (DC) Potassium Chloride (POTASSIUM CHLORIDE 20MEQ TAB.ER) 20 MEQ ONCE ONE PO (DC) Potassium Chloride (POTASSIUM CHLORIDE 20MEQ TAB.ER) 40 MEQ ONCE ONE PO (DC) Potassium Chloride (POTASSIUM CHLORIDE 20MEQ TAB.ER) 40 MEQ Q2H PO (DC) Calcium Gluconate (Calcium Gluconate 2 GM/NS 100 mL (B2)) 100 ML ONCE ONE IV (DC) Fentanyl Citrate (SUBLIMAZE) 100 MCG PACU Q10MIN PRN PRN IV Fentanyl Citrate (SUBLIMAZE) 50 MCG PACU Q10MIN PRN PRN IV Hydralazine HCl (APRESOLINE) 5 MG PACU Q10MIN PRN PRN IV Hydrocodone Bitart/Acetaminophen (NORCO 5/325) 1 TAB PACU ONCE PO (CKD) Hydromorphone HCl (DILAUDID) 1 MG PACU Q10MIN PRN PRN IV Hydromorphone HCl (DILAUDID) 0.5 MG PACU Q5MIN PRN PRN IV Insulin Human Lispro (HUMALOG) 0 PACU ONCE PRN SUBQ Labetalol HCl (labetalol) 5 MG PACU Q10MIN PRN PRN IV Meperidine HCl (MEPERIDINE HCL/PF) 12.5 MG PACU ONCE PRN IV Morphine Sulfate (morphine SULFATE) 2 MG PACU Q10MIN PRN PRN IV Ondansetron HCl (ZOFRAN) 4 MG PACU ONCE PRN IV Ropivacaine (NAROPIN 0.5% 150 MG/30mL) 150 MG ASDIR PRN LOCAL Tramadol HCl (ULTRAM) 50 MG PACU ONCE PO (CKD) Insulin Glargine (Semglee) 40 UNIT BEDTIME SUBQ Ipratropium [place] (ATROVENT) 500 MCG RTQ2H PRN PRN INH Cyanocobalamin (Vitamin B-12 500 mcg tab) 500 MCG DAILY PO Ferrous Sulfate (FERROUS SULFATE) 325 MG DAILY PO Bisacodyl (DULCOLAX) 10 MG ONCE PRN RECTAL Magnesium Hydroxide (MILK OF MAGNESIA) 30 ML ONCE PRN PO Furosemide (LASIX) 240 MG Q24H IV (CKD) Sodium Chloride (SODIUM CHLORIDE 0.9%) 24 ML Vasopressin (VASOSTRICT 20 Unit/NS 100ML) 100 ML ASDIR IV (CKD) Dopamine HCl/Dextrose (DOPamine 400MG/D5W 250ML) 250 ML ASDIR IV Epinephrine (ADRENALIN CHLORIDE) 4 MG ASDIR IV Sodium Chloride (SODIUM CHLORIDE 0.9%) 246 ML Melatonin (Melatonin) 6 MG BEDTIME PRN PO Clopidogrel Bisulfate (Plavix) 75 MG DAILY PO Polyethylene Glycol (MIRALAX) 17 GM DAILY PO Pantoprazole (PROTONIX) 40 MG DAILY@0600 PO Milrinone Lactate/Dextrose (MILRINONE 20MG/D5W 100ML) 100 ML TITRATE IV (CKD) Aspirin (ASPIRIN) 81 MG DAILY PO Amiodarone HCl (CORDARONE) 200 MG TID PO Docusate Sodium (COLACE) 100 MG BID PO Gabapentin (NEURONTIN) 200 MG BID PO (DC) Metoprolol Tartrate (LOPRESSOR) 12.5 MG Q12HR PO Mupirocin (BACTROBAN 2% 22 GM OINTMENT) 1 APPLIC BID NASAL (DC) Sennosides (Senna Lax 8.6 MG TABLET) 17.2 MG BEDTIME PO Calcium Chloride (CALCIUM CHLORIDE) 1 GM ASDIR PRN IV Dextrose/Water (DEXTROSE 10% IN WATER) 125 ML ASDIR PRN IV (CKD) Dextrose/Water (DEXTROSE 10% IN WATER) 250 ML ASDIR PRN IV (CKD) Insulin Human Regular (HumuLIN R) 100 UNIT ASDIR IV (CKD) Sodium Chloride (SODIUM CHLORIDE 0.9%) 99 ML Magnesium Sulfate (MAGNESIUM SULFATE 4GM/SWFI 100ML) 100 ML ASDIR PRN IV Magnesium Sulfate (MAGNESIUM SULFATE 2GM/SWFI 50ML) 50 ML ASDIR PRN IV Magnesium Sulfate/Dextrose (MAGNESIUM SULFATE 1GM/D5W 100ML) 100 ML ASDIR PRN IV Nitroglycerin/Dextrose (NITROGLYCERIN 50,000MCG/D5W 250ML) 250 ML ASDIR IV Norepinephrine Bitartrate (NOREPINEPHRINE 8 MG/NS 250 ML) 250 ML TITRATE IV Ondansetron HCl (ZOFRAN) 4 MG Q6H PRN PRN IV Oxycodone HCl (ROXICODONE) 5 MG Q4H PRN PRN PO Oxycodone HCl (ROXICODONE) 10 MG Q4H PRN PRN PO Potassium Chloride (KCL 20MEQ/SWFI 100ML) 100 ML ASDIR PRN IV Sodium Bicarbonate (SODIUM BICARBONATE) 50 MEQ ASDIR PRN IV Sodium Chloride (SODIUM CHLORIDE 0.9%) 1,000 ML .Q20H IV Sodium Chloride (SODIUM CHLORIDE 0.9%) 250 ML Q24H IV Lactulose (LACTULOSE) 10 GM DAILY PRN PRN PO Thiamine HCl (THIAMINE HCL) 100 MG DAILY PO Physical Exam General appearance: chronically ill appearing, alert, awake Neck: normal thyroid, no JVD Cardiovascular: normal heart sounds, regular rate rhythm, no gallop, no murmur , no rub Respiratory: hypoxia, on oxygen Abdomen: non-tender, normal bowel sounds, soft Extremities: no clubbing, no cyanosis, 3+ PRETIBIAL EDEMA Neuro/BUSINESS AREA MANAGER: alert, oriented X 3, CNII-XII intact Skin: dry, intact, no rash Psychiatry: normal affect Results Findings/Data: Laboratory Tests 06/15 06/14 0319 1516 Blood Gas Puncture Site Art Line Art Line O2 Saturation (90 - 100 %) 97.5 90.2 ABG pH (7.35 - 7.45) 7.412 7.440 ABG pCO2 (35.0 - 45 mmHg) 39.5 25.8 *L ABG pO2 (80 - 100.0 mmHg) 95.1 53.9 L ABG PO2/FiO2 Ratio (mm/Hg) 134.70 ABG HCO3 (22.0 - 26.0 MMOL/L) 25.1 17.6 *L ABG Total CO2 26.3 18.4 ABG Base Excess (-4.0 - 4.0 MMOL/L) 0.5 -6.7 L ABG Hematocrit (37.5 - 50.7 %) 37 L 25 L ABG Hemoglobin (12.5 - 16.9 G/DL) 12.7 8.6 L Mabel Test N/A Sodium (134 - 147 mmol/L) 131 L 132 L Potassium (3.4 - 5.0 mmol/L) 3.8 3.2 L Chloride (100 - 108 mmol/L) 96 L 100 Ionized Calcium (1.12 - 1.32 MMOL/L) 1.17 0.98 L Lactic Acid (0.9 - 1.7 mmol/l) 0.6 L 0.7 L Temperature (F) 97.7 O2 Delivery Device HFNC HFNC FiO2 (%) 40.0 Laboratory Tests 06/15 06/15 06/15 06/15 06/15 1414 1217 0943 0835 0558 Chemistry Sodium (134 - 147 mEq/L) 132 L Potassium (3.4 - 5.0 mEq/L) 3.9 Chloride (100 - 108 mEq/L) 96 L Carbon Dioxide (21 - 33 mEq/l) 28 Anion Gap (0 - 20) 13 BUN (7 - 25 mg/dL) 81 H Creatinine (0.6 - 1.3 mg/dL) 2.1 H Glomerular Filtr Rate (80 - 90) 33.7 L Glucose (77 - 141 mg/dL) 173 H POC Glucose (70 - 110 MG/DL) 226 H 182 H 171 H 137 H Calcium (8.0 - 10.5 mg/dL) 8.6 Ionized Calcium Leanne (1.09 - 1.30 MMOL/L) 1.14 Magnesium (1.6 - 2.6 mg/dL) 2.45 06/15 06/15 06/15 06/15 06/14 0406 0319 0316 0058 2251 Chemistry Sodium (134 - 147 mEq/L) 131 L Potassium (3.4 - 5.0 mEq/L) 3.8 Chloride (100 - 108 mEq/L) 97 L Carbon Dioxide (21 - 33 mEq/l) 25 Anion Gap (0 - 20) 13 BUN (7 - 25 mg/dL) 79 H Creatinine (0.6 - 1.3 mg/dL) 2.1 H POC Creatinine (0.8 - 1.3 mg/dL) 2.5 H Glomerular Filtr Rate (80 - 90) 33.7 L Glucose (77 - 141 mg/dL) 107 POC Glucose (70 - 110 MG/DL) 97 116 H 182 H POC Glucose (mg/dL) (70 - 110 MG/DL) 93 Calcium (8.0 - 10.5 mg/dL) 8.6 Magnesium (1.6 - 2.6 mg/dL) 2.53 Total Bilirubin (0.0 - 1.0 mg/dL) 0.70 Direct Bilirubin (0.1 - 0.3 MG/DL) 0.40 H Indirect Bilirubin (MG/DL) 0.30 AST (8 - 34 IUnit/L) 99 H ALT (10 - 49 IUnit/L) 88 H Total Alk Phosphatase (20 - 125 IUnit/L) 134 H Total Protein (6.4 - 8.2 g/dL) 5.9 L Albumin (3.4 - 5.0 g/dL) 2.70 L 06/14 06/14 06/14 06/14 06/14 2111 2105 1917 1516 1502 Chemistry Sodium (134 - 147 mEq/L) 128 L 133 L Potassium (3.4 - 5.0 mEq/L) 3.5 3.3 L Chloride (100 - 108 mEq/L) 98 L 104 Carbon Dioxide (21 - 33 mEq/l) 22 17 L Anion Gap (0 - 20) 12 15 BUN (7 - 25 mg/dL) 77 H 50 H Creatinine (0.6 - 1.3 mg/dL) 2.2 H 1.9 H POC Creatinine (0.8 - 1.3 mg/dL) 2.0 H Glomerular Filtr Rate (80 - 90) 31.8 L 38.0 L Glucose (77 - 141 mg/dL) 228 H 195 H POC Glucose (70 - 110 MG/DL) 216 H 267 H POC Glucose (mg/dL) (70 - 110 MG/DL) 173 H Calcium (8.0 - 10.5 mg/dL) 8.7 6.9 L Ionized Calcium Leanne (1.09 - 1.30 MMOL/L) 1.16 0.96 L Magnesium (1.6 - 2.6 mg/dL) 2.63 H 2.14 Laboratory Tests 06/15 0316 Hematology WBC (4.5 - 11.0 x10 3/uL) 11.3 H RBC (4.00 - 5.60 x10 6/uL) 3.15 L Hgb (12.5 - 16.9 g/dL) 9.6 L Hct (37.5 - 50.7 %) 28.9 L MCV (81.0 - 99.0 fL) 91.7 MCH (27.0 - 33.0 pg) 30.5 MCHC (33.0 - 37.0 g/dL) 33.2 RDW (11.5 - 14.5 %) 14.1 Plt Count (150 - 400 x10 3/uL) 143 L MPV (7.0 - 9.0 fL) 12.2 H Neut % (Auto) (56.0 - 77.0 %) 77.9 H Lymph % (Auto) (14.0 - 32.0 %) 5.0 L [place] % (Auto) (4.8 - 9.0 %) 12.6 H Eos % (Auto) (0.3 - 3.7 %) 3.4 Baso % (Auto) (0.0 - 2.0 %) 0.1 Neut # (Auto) (2.0 - 7.6 x10 3/uL) 8.82 H Lymph # (Auto) (1.0 - 3.8 x10 3/uL) 0.56 L [place] # (Auto) (0.1 - 0.8 x10 3/uL) 1.42 H Eos # (Auto) (0.0 - 0.2 x10 3/uL) 0.38 H Baso # (Auto) (0.0 - 0.2 x10 3/uL) 0.01 Abs Immat Gran (auto) (0.00 - 0.03 x10 3/uL) 0.11 H Immature Gran % (0.0 - 2.0 %) 1.0 Nucleated RBC % (0 - 0 %) 0.2 H Nucleated RBCs # (Man) (0.0 - 0.1 x10 3/uL) 0.02 Radiology data: Recent Impressions: RADIOLOGY - XR CHEST 1 V 06/15 0608 Report Impression - Status: SIGNED Entered: 06/16/2023 0918 IMPRESSION: Cardiomegaly with small pleural effusions and left lower lobe consolidation, grossly unchanged from prior. Small left apical pneumothorax. Impression By: Osiel Fry M.D. Diagnosis, Assessment Plan Consultants: cardiology, cardiovascular surgery Free Text DxA P Notes Free text DxA P notes: VOLUME OL WITH Shortness of breath/hypoxia/LEG EDEMA - CONT LASIX GTT On 8 L oxygen via nasal cannula Fluid overload on chest x-ray On Lasix drip ICC on board Acute on chronic diastolic congestive heart failure - STABLE - Cardiology consulted - Echo: EF 55 to 60% S/p CABG on 06/10 Milrinone drip DC'd On Lasix drip 06/12 On BiPAP now off BiPAP 3/18 On 8 L oxygen via nasal cannula 06/13 Multivessel CAD, S/P CABG X3, ALAA - STABLE, CTS/ICC SEEN S/p CABG on 06/10 On aspirin, Plavix, amiodarone - no statin for abnormal LFTs/cirrhosis On milrinone drip DC'd Chest tube in place DC'd Cardiology, CT surgery, ICC on board Hypotension - ECHO EF 50-55% BP dropped to 80s over 50s overnight 06/11 On Levophed and vasopressin off pressors ICC, CT surgery on board NIYA ON CRF - CONT DIURESIS Likely due to above causes Metolazone x 1 given 06/12 On Lasix drip, if urinary output does not improve, may require CRRT 06/12 Nephrology on board Renal function improving Pleural effusion: On Lasix drip Leukocytosis: Likely reactive Monitor and defer to further management to ICC Leukocytosis improving Abnormal LFTs: -cholelithiasis with distended GB, no acute cholecystitis on US - Monitor - GI on board Diabetes mellitus II - STABLE HGBA1c 8.4% Insulin drip, transition to Sliding scale insulin as needed, long acting insulin as per [facility] Hypertension Renew medications once they have been updated in the computer Now on pressors for hypotension Check labs in the a.m. Patient does not have a living will or medical power of defense attorney Patient is a full code 06/01 multivessel disease on cath, CTS consulted, patient undergoing preop evaluation for possible CABG. 06/02- pt continues cabg eval, conf Fri, nephro/GI consulted per cts, renal indices wnls today, Abd us confirmed cirrhosis with splenomegaly. 06/03 patient continues preop evaluation for CABG, IV Lasix transition to oral 06/04 CABG preop planning 06/05- CABG planning 06/06 ongoing CABG planning per CTS, blood sugars noted to be elevated in 240s to 300s. Will start on basal insulin 7 units for now daily, continue meal correctional insulin. Patient on glipizide and metformin at home holding for now given CABG eval and and pending surgical date. 06/07- pending CABG eval, d/w Cardiology and started patient on IV lasix 40 mg BID due to increasing wt, symptoms of dyspnea. Monitor I'O's. 06/08- poorly controlled blood sugars noted, increased basal insulin to 10 units daily, add meal time insulin AC, wt based compared to SSI admin, started on 4 Units reg insulin AC. Monitor I/O, contiued on IV lasix 40 mg BID, wt 110 kg today (dry wt reported to be 105 kg). 06/09- optimize insulin for improved glucose control, pending cabg tomorrow 06/10- pending cabg Disposition: S/p CABG on 06/11/2023. Chest tubes removed, on 8 L oxygen via nasal cannula, off pressors, fluid overload on chest x-ray, on Lasix drip, on insulin drip, kidney function improving. Working with PT/OT. Multiple specialty services on board. Continue CVICU care. Quality: Gen Med Crit Care VTE Prophylaxis VTE prophylaxis initiated: yes Current Medications Current medication review: I attest that the foregoing medication list in the medical record is true, accurate, and complete to the best of my knowledge. Advanced Care Plan 65 or Older Discussed with: patient Discussion included: living will, power of defense attorney, code status at 1501 RPT #:[id number] END OF REPORT [facility] 2023-06-16 10:37:00 [facility] Gastroenterology Progress Note REPORT#:[id number] REPORT STATUS: Signed REPORT INITIALIZATION DATE:06/16/23 TIME: 1037 PATIENT: MINDY CARTER UNIT #: [id number] ROOM/BED: [place] [address] : 54 AGE: 67 SEX: M ATTEND: Talat Lord MD ADM AUTHOR: Farideh Harris REPT SERVICE DT/TIME: 06/16/23 1037 * ALL edits or amendments must be made on the electronic/computer document * Farideh Harris 06/16/23 1037: Subjective Patient reports: Yes: passing gas. No: abdominal pain, black stools, bowel movement, nausea, rectal bleeding, vomiting. Review of Systems Constitutional: Denies: chills, fever. Respiratory: Denies: SOB. Cardiovascular: Denies: chest pain. Neuro: Denies: headache. Objective General VS/I O: Last Documented: Result Date Time Temp 36.4 06/15 0800 Pulse Ox 96 06/15 0758 O2 Delivery High flow nasal cannula 06/15 0758 O2 Flow Rate 6 06/15 0758 Pulse 69 06/15 0628 Resp 30 06/15 0628 B/P 111/61 06/15 0604 B/P Mean 79 06/15 0604 FiO2 52 06/14 0417 24 hour I O ending at 0700: 06/15 0700 06/14 1900 Intake Total 480 1104.00 Output Total 2250 2150 Balance -1770 -1046.00 Intake, IV 384.00 Intake, Oral 480 720 Output, Urine 2250 2150 PATIENT WEIGHT: Weight (lb): 246 Weight (oz): 11.16 Weight (kg): 111.900 Medications: Active Meds + DC'd Last 24 Hrs Insulin Glargine (Semglee) 20 UNIT DAILY SUBQ Potassium Chloride (POTASSIUM CHLORIDE 20MEQ TAB.ER) 40 MEQ ONCE ONE PO (DC) Potassium Chloride (POTASSIUM CHLORIDE 20MEQ TAB.ER) 20 MEQ ONCE ONE PO (DC) Potassium Chloride (POTASSIUM CHLORIDE 20MEQ TAB.ER) 40 MEQ ONCE ONE PO (DC) Potassium Chloride (POTASSIUM CHLORIDE 20MEQ TAB.ER) 40 MEQ Q2H PO (DC) Calcium Gluconate (Calcium Gluconate 2 GM/NS 100 mL (B2)) 100 ML ONCE ONE IV (DC) Fentanyl Citrate (SUBLIMAZE) 100 MCG PACU Q10MIN PRN PRN IV Fentanyl Citrate (SUBLIMAZE) 50 MCG PACU Q10MIN PRN PRN IV Hydralazine HCl (APRESOLINE) 5 MG PACU Q10MIN PRN PRN IV Hydrocodone Bitart/Acetaminophen (NORCO 5/325) 1 TAB PACU ONCE PO (CKD) Hydromorphone HCl (DILAUDID) 1 MG PACU Q10MIN PRN PRN IV Hydromorphone HCl (DILAUDID) 0.5 MG PACU Q5MIN PRN PRN IV Insulin Human Lispro (HUMALOG) 0 PACU ONCE PRN SUBQ Labetalol HCl (labetalol) 5 MG PACU Q10MIN PRN PRN IV Meperidine HCl (MEPERIDINE HCL/PF) 12.5 MG PACU ONCE PRN IV Morphine Sulfate (morphine SULFATE) 2 MG PACU Q10MIN PRN PRN IV Ondansetron HCl (ZOFRAN) 4 MG PACU ONCE PRN IV Ropivacaine (NAROPIN 0.5% 150 MG/30mL) 150 MG ASDIR PRN LOCAL Tramadol HCl (ULTRAM) 50 MG PACU ONCE PO (CKD) Insulin Glargine (Semglee) 40 UNIT BEDTIME SUBQ Ipratropium [place] (ATROVENT) 500 MCG RTQ2H PRN PRN INH Cyanocobalamin (Vitamin B-12 500 mcg tab) 500 MCG DAILY PO Ferrous Sulfate (FERROUS SULFATE) 325 MG DAILY PO Bisacodyl (DULCOLAX) 10 MG ONCE PRN RECTAL Magnesium Hydroxide (MILK OF MAGNESIA) 30 ML ONCE PRN PO Furosemide (LASIX) 240 MG Q24H IV (CKD) Sodium Chloride (SODIUM CHLORIDE 0.9%) 24 ML Vasopressin (VASOSTRICT 20 Unit/NS 100ML) 100 ML [facility]IR IV (CKD) Dopamine HCl/Dextrose (DOPamine 400MG/D5W 250ML) 250 ML [facility]IR IV Epinephrine (ADRENALIN CHLORIDE) 4 MG ASDIR IV Sodium Chloride (SODIUM CHLORIDE 0.9%) 246 ML Melatonin (Melatonin) 6 MG BEDTIME PRN PO Clopidogrel Bisulfate (Plavix) 75 MG DAILY PO Polyethylene Glycol (MIRALAX) 17 GM DAILY PO Pantoprazole (PROTONIX) 40 MG DAILY@0600 PO Milrinone Lactate/Dextrose (MILRINONE 20MG/D5W 100ML) 100 ML TITRATE IV (CKD) Aspirin (ASPIRIN) 81 MG DAILY PO Amiodarone HCl (CORDARONE) 200 MG TID PO Docusate Sodium (COLACE) 100 MG BID PO Gabapentin (NEURONTIN) 200 MG BID PO (DC) Metoprolol Tartrate (LOPRESSOR) 12.5 MG Q12HR PO Mupirocin (BACTROBAN 2% 22 GM OINTMENT) 1 APPLIC BID NASAL (DC) Sennosides (Senna Lax 8.6 MG TABLET) 17.2 MG BEDTIME PO Calcium Chloride (CALCIUM CHLORIDE) 1 GM [facility]IR PRN IV Dextrose/Water (DEXTROSE 10% IN WATER) 125 ML ASDIR PRN IV (CKD) Dextrose/Water (DEXTROSE 10% IN WATER) 250 ML [facility]IR PRN IV (CKD) Insulin Human Regular (HumuLIN R) 100 UNIT [facility]IR IV (CKD) Sodium Chloride (SODIUM CHLORIDE 0.9%) 99 ML Magnesium Sulfate (MAGNESIUM SULFATE 4GM/SWFI 100ML) 100 ML [facility]IR PRN IV Magnesium Sulfate (MAGNESIUM SULFATE 2GM/SWFI 50ML) 50 ML [facility] PRN IV Magnesium Sulfate/Dextrose (MAGNESIUM SULFATE 1GM/D5W 100ML) 100 ML [facility]IR PRN IV Nitroglycerin/Dextrose (NITROGLYCERIN 50,000MCG/D5W 250ML) 250 ML ASDIR IV Norepinephrine Bitartrate (NOREPINEPHRINE 8 MG/NS 250 ML) 250 ML TITRATE IV Ondansetron HCl (ZOFRAN) 4 MG Q6H PRN PRN IV Oxycodone HCl (ROXICODONE) 5 MG Q4H PRN PRN PO Oxycodone HCl (ROXICODONE) 10 MG Q4H PRN PRN PO Potassium Chloride (KCL 20MEQ/SWFI 100ML) 100 ML ASDIR PRN IV Sodium Bicarbonate (SODIUM BICARBONATE) 50 MEQ [facility] PRN IV Sodium Chloride (SODIUM CHLORIDE 0.9%) 1,000 ML .Q20H IV Sodium Chloride (SODIUM CHLORIDE 0.9%) 250 ML Q24H IV Lactulose (LACTULOSE) 10 GM DAILY PRN PRN PO Thiamine HCl (THIAMINE HCL) 100 MG DAILY PO Dietitian nutrition assessment The data set between the solid lines has been imported from the dietitian's assessment. BMI Calculated: 36.4 Nutrition related diagnosis: Nutrition diagnosis details: Nutrition problem: Increased nutrient needs Nutrition etiology: Acute illness Nutrition signs and symptoms: CARDIAC POST-OP Nutrition prescription: 1. CARDIAC CCD4 DIET 2. ENSURE MAX TID POST-OP 3. DIABETIC DIET EDUCATION PRIOR TO DC Dietitian name: Anju Armendariz RD, LD Assessment completed: 06/11/23 Physical Exam General appearance: alert, awake, oriented HEENT: atraumatic, normocephalic Neck: full range of motion Cardiovascular: normal S1/S2, regular rate rhythm Respiratory: symmetric expansion, no distress Abdomen: distended (mildly), non-tender, normal bowel sounds, soft, no guarding Extremities: moves all Musculoskeletal: normal inspection Neuro/BUSINESS AREA MANAGER: alert, normal speech Skin: dry, intact, normal color Psychiatry: normal affect, normal judgment/insight, normal mood Results Findings/Data: Laboratory Tests 06/16/23 1530: [Embedded Image Not Available] 06/16/23 0943: [Embedded Image Not Available] 06/16/23 0316: [Embedded Image Not Available] 06/15/23 2111: [Embedded Image Not Available] Laboratory Tests 06/15 318 Blood Gas Puncture Site Art Line O2 Saturation (90 - 100 %) 97.5 ABG pH (7.35 - 7.45) 7.412 ABG pCO2 (35.0 - 45 mmHg) 39.5 ABG pO2 (80 - 100.0 mmHg) 95.1 ABG HCO3 (22.0 - 26.0 MMOL/L) 25.1 ABG Total CO2 26.3 ABG Base Excess (-4.0 - 4.0 MMOL/L) 0.5 ABG Hematocrit (37.5 - 50.7 %) 37 L ABG Hemoglobin (12.5 - 16.9 G/DL) 12.7 Mabel Test N/A Sodium (134 - 147 mmol/L) 131 L Potassium (3.4 - 5.0 mmol/L) 3.8 Chloride (100 - 108 mmol/L) 96 L Ionized Calcium (1.12 - 1.32 MMOL/L) 1.17 Lactic Acid (0.9 - 1.7 mmol/l) 0.6 L O2 Delivery Device [facility] Laboratory Tests 06/15 06/15 06/15 06/15 06/15 1530 1414 1217 0943 0835 Chemistry Sodium (134 - 147 mEq/L) 129 L 132 L Potassium (3.4 - 5.0 mEq/L) 3.9 3.9 Chloride (100 - 108 mEq/L) 96 L 96 L Carbon Dioxide (21 - 33 mEq/l) 25 28 Anion Gap (0 - 20) 12 13 BUN (7 - 25 mg/dL) 74 H 81 H Creatinine (0.6 - 1.3 mg/dL) 2.1 H 2.1 H Glomerular Filtr Rate (80 - 90) 33.7 L 33.7 L Glucose (77 - 141 mg/dL) 196 H 173 H POC Glucose (70 - 110 MG/DL) 226 H 182 H 171 H Calcium (8.0 - 10.5 mg/dL) 8.6 8.6 Ionized Calcium Leanne (1.09 - 1.30 MMOL/L) 1.14 Magnesium (1.6 - 2.6 mg/dL) 2.38 2.45 06/15 06/15 06/15 06/15 06/15 0558 0406 0319 0316 0058 Chemistry Sodium (134 - 147 mEq/L) 131 L Potassium (3.4 - 5.0 mEq/L) 3.8 Chloride (100 - 108 mEq/L) 97 L Carbon Dioxide (21 - 33 mEq/l) 25 Anion Gap (0 - 20) 13 BUN (7 - 25 mg/dL) 79 H Creatinine (0.6 - 1.3 mg/dL) 2.1 H POC Creatinine (0.8 - 1.3 mg/dL) 2.5 H Glomerular Filtr Rate (80 - 90) 33.7 L Glucose (77 - 141 mg/dL) 107 POC Glucose (70 - 110 MG/DL) 137 H 97 116 H POC Glucose (mg/dL) (70 - 110 MG/DL) 93 Calcium (8.0 - 10.5 mg/dL) 8.6 Magnesium (1.6 - 2.6 mg/dL) 2.53 Total Bilirubin (0.0 - 1.0 mg/dL) 0.70 Direct Bilirubin (0.1 - 0.3 MG/DL) 0.40 H Indirect Bilirubin (MG/DL) 0.30 AST (8 - 34 IUnit/L) 99 H ALT (10 - 49 IUnit/L) 88 H Total Alk Phosphatase (20 - 125 IUnit/L) 134 H Total Protein (6.4 - 8.2 g/dL) 5.9 L Albumin (3.4 - 5.0 g/dL) 2.70 L 06/14 06/14 06/14 06/14 2251 2111 2105 1917 Chemistry Sodium (134 - 147 mEq/L) 128 L Potassium (3.4 - 5.0 mEq/L) 3.5 Chloride (100 - 108 mEq/L) 98 L Carbon Dioxide (21 - 33 mEq/l) 22 Anion Gap (0 - 20) 12 BUN (7 - 25 mg/dL) 77 H Creatinine (0.6 - 1.3 mg/dL) 2.2 H Glomerular Filtr Rate (80 - 90) 31.8 L Glucose (77 - 141 mg/dL) 228 H POC Glucose (70 - 110 MG/DL) 182 H 216 H 267 H Calcium (8.0 - 10.5 mg/dL) 8.7 Ionized Calcium Leanne (1.09 - 1.30 MMOL/L) 1.16 Magnesium (1.6 - 2.6 mg/dL) 2.63 H Laboratory Tests 06/15 0316 Hematology WBC (4.5 - 11.0 x10 3/uL) 11.3 H RBC (4.00 - 5.60 x10 6/uL) 3.15 L Hgb (12.5 - 16.9 g/dL) 9.6 L Hct (37.5 - 50.7 %) 28.9 L MCV (81.0 - 99.0 fL) 91.7 MCH (27.0 - 33.0 pg) 30.5 MCHC (33.0 - 37.0 g/dL) 33.2 RDW (11.5 - 14.5 %) 14.1 Plt Count (150 - 400 x10 3/uL) 143 L MPV (7.0 - 9.0 fL) 12.2 H Neut % (Auto) (56.0 - 77.0 %) 77.9 H Lymph % (Auto) (14.0 - 32.0 %) 5.0 L [place] % (Auto) (4.8 - 9.0 %) 12.6 H Eos % (Auto) (0.3 - 3.7 %) 3.4 Baso % (Auto) (0.0 - 2.0 %) 0.1 Neut # (Auto) (2.0 - 7.6 x10 3/uL) 8.82 H Lymph # (Auto) (1.0 - 3.8 x10 3/uL) 0.56 L [place] # (Auto) (0.1 - 0.8 x10 3/uL) 1.42 H Eos # (Auto) (0.0 - 0.2 x10 3/uL) 0.38 H Baso # (Auto) (0.0 - 0.2 x10 3/uL) 0.01 Abs Immat Gran (auto) (0.00 - 0.03 x10 3/uL) 0.11 H Immature Gran % (0.0 - 2.0 %) 1.0 Nucleated RBC % (0 - 0 %) 0.2 H Nucleated RBCs # (Man) (0.0 - 0.1 x10 3/uL) 0.02 Radiology Data: Recent Impressions: RADIOLOGY - XR CHEST 1 V 06/15 0608 Report Impression - Status: SIGNED Entered: 06/16/2023 0918 IMPRESSION: Cardiomegaly with small pleural effusions and left lower lobe consolidation, grossly unchanged from prior. Small left apical pneumothorax. Impression By: Osiel Fry M.D. Results: labs reviewed, vital signs reviewed, x-ray personally reviewed Diagnosis, Assessment Plan Problem List/A P: 1. Cirrhosis 2. Hepatitis C 3. Elevated LFTs 4. Alcohol dependence 5. CHF exacerbation Free Text A P: (06/03/2023) MELD score of 7, estimated 3-month mortality of 1.9% S/p CABG x 3, EVH, ALAA, PP, No BM yet today, +flatus. Family at bedside. Tolerating diet without nausea or vomiting. Recommendations: 1. Monitor LFTs; avoid further hepatotoxic medications; improving 2. INR 1.1 3. Abdominal ultrasound revealed cirrhosis with splenomegaly, cholelithiasis, and nonspecific gallbladder wall thickening likely secondary to chronic liver disease as patient does not express abdominal pain at this time- repeat us shows similar findings 4. History of hepatitis C, PCR - not detected 5. Daily alcohol use, cont. MVI and thiamine; encouraged cessation 6. Agree with current bowel regimen 7. Further recommendations may follow Consultants: cardiology, cardiovascular surgery Rigoberto Jarrell 06/16/23 1903: Attestations Physician Attestation Agree w/findings plan: Agree with the findings and plan as documented by RAHUL Tobias. at 1626 at 2756 RPT #:[id number] END OF REPORT [facility] 2023-06-16 06:18:00 [facility] ([facility]) Cardiology Progress Note REPORT#:[id number] REPORT STATUS: Signed REPORT INITIALIZATION DATE:06/16/23 TIME: 617 PATIENT: MINDY CARTER UNIT #: [id number] ROOM/BED: [place] [address] : 54 AGE: 67 SEX: M ATTEND: Talat Lord MD ADM AUTHOR: Clayton Nathan MD REPT SERVICE DT/TIME: 06/16/2318 * ALL edits or amendments must be made on the electronic/computer document * Subjective Free Text Subj Notes Free Text Subj Notes: Cardiology progress note Date of service: 06/16/2023 Chief complaint/reason for consult: NSTEMI Patient seen and examined, chart reviewed, questions/concerns addressed with RN. Current medication and vitals reviewed. HPI and interval Hx: Underwent CABG and left atrial appendage amputation. Creatinine increasing. Currently on Lasix drip with adequate urine output Subjective: No chest pain today Objective: Vital Signs Date Temp Pulse Resp B/P B/P Mean Pulse Ox FiO2 06/14-06/15 97.7 68-80 17-35 92-130/45-71 63-91 94-100 GEN: Alert and cooperative, no acute distress. HEENT: NC/AT, EOMI CARD: RRR, normal S1/S2 LUNGS: CTA w/o added sounds, GBAE. Assessment, Impression and medical decision making: -NSTEMI -Acute on chronic diastolic congestive heart -Morbid obesity -Hypertension, hyperlipidemia, type 2 diabetes mellitus -NIYA Plan/recommendation: -Status post CABG and left atrial pended amputation -NIYA noted nephrology on board, on Lasix drip -Continue with aspirin Plavix, no statin due to liver cirrhosis, low-dose beta- blockers at 0710 RPT #:[id number] END OF REPORT [facility] 2023-06-16 06:08:00 [facility] ([facility]) Cardiology Progress Note REPORT#:[id number] REPORT STATUS: Signed REPORT INITIALIZATION DATE:06/16/23 TIME: 06 PATIENT: MINDY CARTER UNIT #: [id number] ROOM/BED: [place] [address] : 54 AGE: 67 SEX: M ATTEND: Kimmie Bacon MD ADM AUTHOR: Clayton Natahn MD REPT SERVICE DT/TIME: 06/15/23 1600 * ALL edits or amendments must be made on the electronic/computer document * Subjective Free Text Subj Notes Free Text Subj Notes: Cardiology progress note Date of service: 06/15/2023 Chief complaint/reason for consult: NSTEMI Patient seen and examined, chart reviewed, questions/concerns addressed with RN. Current medication and vitals reviewed. HPI and interval Hx: Underwent CABG and left atrial appendage amputation. Creatinine increasing. Subjective: No chest pain today Objective: Vital Signs Date Temp Pulse Resp B/P B/P Mean Pulse Ox FiO2 06/14-06/15 97.7 68-80 17-35 92-130/45-71 63-91 94-100 GEN: Alert and cooperative, no acute distress. HEENT: NC/AT, EOMI CARD: RRR, normal S1/S2 LUNGS: CTA w/o added sounds, GBAE. Assessment, Impression and medical decision making: -NSTEMI -Acute on chronic diastolic congestive heart -Morbid obesity -Hypertension, hyperlipidemia, type 2 diabetes mellitus -NIYA Plan/recommendation: -Status post CABG and left atrial pended amputation -NIYA noted nephrology on board -Continue with aspirin Plavix, no statin due to liver cirrhosis, low-dose beta- blockers at 0612 RPT #:[id number] END OF REPORT [facility] 2023-06-15 17:13:00 [facility] ([facility] Cardiothoracic Surgery Prog REPORT#:[id number] REPORT STATUS: Signed REPORT INITIALIZATION DATE:06/15/23 TIME: 1712 PATIENT: MINDY CARTER UNIT #: [id number] [place]OM[place]ED: [facility] [place] : [place] AGE: 67 SEX: M ATTEND: Kumar Garcia MD ADM AUTHOR: Johnna Pablo Physic REPT SERVICE DT/TIME: 06/15/23 7693 * ALL edits or amendments must be made on the electronic/computer document * General Post-op: day 4 Status post: 06/11/23 CABG x 3 (COSTA-LAD, SVG-Diag, SVG-OM) EVH (RGSV) ALAA PP Subjective Chief complaint: Postop cabg Review of Systems Constitutional: Reports: fatigue. Skin: Denies: abrasion, bruising, contusion. Allergy/Immun: Denies: allergic reaction, anaphylaxis, hives. Respiratory: Denies: HERRING (dyspnea on exertion). Cardiovascular: Denies: chest pain, palpitations. Heme: Denies: adenopathy, bleeding, bruising. Endocrine: Denies: cold intolerance, heat intolerance, polydipsia. Neuro: Denies: confusion, dizziness, seizure, syncope. All systems rev neg: except as marked Objective General VS/I O Last Documented: Result Date Time Pulse Ox 98 06/14 1609 O2 Delivery High flow nasal cannula 06/14 1609 O2 Flow Rate 8 06/14 1609 Temp 97.7 06/14 0800 B/P 116/61 06/14 0601 B/P Mean 83 06/14 0601 Pulse 76 06/14 0601 Resp 29 06/14 0601 FiO2 52 06/14 0417 24 hour I O ending at 0700: 06/14 0700 06/13 1900 Intake Total 620 220 Output Total 2900 1600 Balance -2280 -1380 Intake, Oral 620 220 Output, Chest 1000 80 Tube Drainage Output, Urine 1900 1520 PATIENT WEIGHT: Weight (lb): 246 Weight (oz): 11.16 Weight (kg): 111.900 Physical Exam General appearance: alert, awake, oriented HEENT: anicteric, mucosal membranes moist, pupils reactive to light Neck: full range of motion, non-tender Cardiovascular: normal heart sounds, regular rate rhythm Respiratory: aerating well, symmetric expansion Abdomen: soft, non-tender Genitourinary: marques Extremities: dry, moves all Musculoskeletal: no muscle spasm Skin: dry, intact Psychiatry: normal affect, normal mood Quality: Trauma Gen Surg Advanced Care Plan 65 or Older Discussed with: patient Discussion included: living will, power of defense attorney, code status Current Medications Current medication review: I attest that the foregoing medication list in the medical record is true, accurate, and complete to the best of my knowledge. VTE Prophylaxis - General VTE prophylaxis initiated: yes Diagnosis, Assessment Plan Hospital course to date: This is a 67-year-old gentleman with a past medical history of hypertension, hyperlipidemia, diabetes, neuropathy, alcohol use, liver cirrhosis, kidney disease, syncope who came to the hospital with shortness of breath and chest tightness for 2 days. Patient describes significant orthopnea and increasing edema in bilateral lower extremities that brought the patient to the hospital. Initial workup positive for mildly elevated troponin and elevated BNP and was diagnosed with NSTEMI and CHF exacerbation with acute hypoxic respiratory failure. Patient then underwent cardiac catheterization for elevated troponin. CV surgery was consulted for multivessel coronary artery disease found on angiogram. 1. multivessel disease -Patient underwent cardiac angiogram: Left main-proximal to mid 60 to 70% stenosis LAD-ostial LAD 90% stenosis Left circumflex-patent RCA-mild 30 to 40% mid stenosis EF 55 to 60% Wall motion is normal, grade 1 diastolic dysfunction, normal systolic function. Mitral valve: Moderately calcified with leaflet thickening. Moderate stenosis. Mild regurgitation. Aortic valve: Thickening and sclerosis 2. Liver disease -Patient recently diagnosed. Patient does not live local to [place]. Will consult gastroenterology to see patient. -EtOH cessation 3. Chronic kidney disease -Patient does not live local to [place]. Will consult nephrology to see patient. Patient will be presented at complex cardiology conference on Wednesday. Further recommendations to follow. 06/04/23 Patient in stable condition Labs and imaging reviewed Case presented at complex cardiology conference this morning and the team deemed patient will be best be suited with CABG. Preop workup ongoing Timing of surgery pending Plan of care discussed with patient and family. All questions were answered. 06/05/23 Patient doing well, denies chest pain Labs reviewed Pre op workup ongoing, pending vein mapping and carotid duplex On 4l nasal cannula, wean off oxygen as tolerated Incentive spirometer teaching Cardiac diet OOB to chair, ambulate Plan of care discussed with patient, all questions were answered. 06/06/23 Patient in stable condition Denies chest pain Wean off oxygen Encourage I-S use and deep breathing Tentatively plan for CABG in the upcoming week Plan of care discussed with patient, all questions were answered. 06/07/23 Patient seen and examined, denies chest pain Labs reviewed I-S use encourage, wean off oxygen as tolerated, on 2 L nasal cannula Tolerating diet Out of bed in chair, PT OT Timing of surgery pending Plan of care discussed with the patient, all questions were answered 06/08/23 Patient in stable condition Labs reviewed On room air, encourage I-S use Preop workup completed I will tentatively schedule him for surgery on Wednesday Plan of care discussed with patient, all questions were answered 06/09/23 Patient in stable condition Labs reviewed On room air, encourage I-S use Preop workup completed I will tentatively schedule him for surgery on Wednesday Plan of care discussed with patient, all questions were answered 06/10/23 Patient is stable condition, denies chest pain On room air Preop workup completed Plan for surgery on Wednesday-CABG and possible mitral valve I have discussed with the patient the operation, risk involved, calculated STS risk score, benefits, alternatives, and complicated. Patient acknowledges understanding and is willing to proceed. 06/11/23 CABG x 3 (COSTA-LAD, SVG-Diag, SVG-OM) EVH (RGSV) ALAA PP 06/12/23 POD 1 AAO x 3 Respiratory: on 10 L NC, wean as tolerated. Encourage IS. CT in place 325/196, leave in place, monitor outputs. Cardiac: Sinus rhythm. on levo 5, epi 2, Milrinone. GI: advance diet as tolerated. continue Bowel regimen. : Marques in place. Patient walked unit with PT DC Tylenol due to liver disease Patient was seen and examined at [facility]. Plan of care discussed with multidisciplinary team 06/13/23 POD 2 AAO x 3 Respiratory: on Bipap Encourage IS. Cardiac: Sinus rhythm. Pacing wires on standby, episode of hypotension, on levo @ 6, no response to dopamine for urine output GI: advance diet as tolerated. continue Bowel regimen. : Marques in place. Low urine output, start Lasix drip, vasopressin Plan to start Lasix drip. If no improvement in renal perfusion, patient will need CRRT. Patient was seen and examined at [facility]. Plan of care discussed with multidisciplinary team Nephrology following. Appreciate input Continue supportive care, 06/14/23 POD 3 AAOx3 Respiratory: Teleflex 60% Cardiac: Sinus rhythm, pacing wires on standby, levo at 2, vaso turned off this a.m. Continues on Lasix drip Urine output 1100 Chest tube drainage Abdominal ultrasound Evaluation limited by overlying bandage. Cirrhotic liver morphology. Cholelithiasis and distended gallbladder without sonographic features of acute cholecystitis. Will obtain bedside echo. Patient was seen and examined Dr. Martel. Continue supportive care Plan of care discussed with multidisciplinary team. 06/15/23 POD 4 AAOx3 Respiratory: On 2 L nasal cannula, wean as tolerated Cardiac: Sinus rhythm, pacing wires on standby, off pressor Urine output improved on Lasix drip, continue to monitor urine output DC left chest tube. Continue PT/OT, out of bed Patient was seen and examined Dr. Martel. Continue supportive care Plan of care discussed with multidisciplinary team. Consultants: cardiology, cardiovascular surgery at 1714 at 0948 RPT #:[id number] END OF REPORT [facility] 2023-06-15 12:27:00 [facility] Gastroenterology Progress Note REPORT#:[id number] REPORT STATUS: Signed REPORT INITIALIZATION DATE:06/15/23 TIME: 1226 PATIENT: MINDY CARTER UNIT #: [id number] ROOM/BED: [place] [address] : 54 AGE: 67 SEX: M ATTEND: Kimmie Bacon MD ADM AUTHOR: Farideh Harris REPT SERVICE DT/TIME: 06/15/23 1227 * ALL edits or amendments must be made on the electronic/computer document * Farideh Harris 06/15/23 1227: Subjective Patient reports: Yes: bowel movement, passing gas. No: abdominal pain, black stools, nausea, rectal bleeding, vomiting. Review of Systems Constitutional: Denies: chills, fever. Respiratory: Denies: SOB. Cardiovascular: Denies: chest pain. Objective General VS/I O: Last Documented: Result Date Time Pulse Ox 98 06/14 1609 O2 Delivery High flow nasal cannula 06/14 160 O2 Flow Rate 8 06/14 1609 Temp 36.5 06/14 0800 B/P 116/61 06/14 0601 B/P Mean 83 06/14 0601 Pulse 76 06/14 0601 Resp 29 06/14 0601 FiO2 52 06/14 0417 24 hour I O ending at 0700: 06/14 0700 06/13 1900 Intake Total 620 220 Output Total 2900 1600 Balance -2280 -1380 Intake, Oral 620 220 Output, Chest 1000 80 Tube Drainage Output, Urine 1900 1520 PATIENT WEIGHT: Weight (lb): 246 Weight (oz): 11.16 Weight (kg): 111.900 Medications: Active Meds + DC'd Last 24 Hrs Potassium Chloride (POTASSIUM CHLORIDE 20MEQ TAB.ER) 40 MEQ Q2H PO Calcium Gluconate (Calcium Gluconate 2 GM/NS 100 mL (B2)) 100 ML ONCE ONE IV Calcium Gluconate (Calcium Gluconate 1 GM/NS 50 mL (B2)) 50 ML ONCE ONE IV (DC) Potassium Chloride (POTASSIUM CHLORIDE 20MEQ TAB.ER) 20 MEQ ONCE ONE PO (DC) Potassium Chloride (POTASSIUM CHLORIDE 20MEQ TAB.ER) 40 MEQ ONCE ONE PO (DC) Fentanyl Citrate (SUBLIMAZE) 100 MCG PACU Q10MIN PRN PRN IV Fentanyl Citrate (SUBLIMAZE) 50 MCG PACU Q10MIN PRN PRN IV Hydralazine HCl (APRESOLINE) 5 MG PACU Q10MIN PRN PRN IV Hydrocodone Bitart/Acetaminophen (NORCO 5/325) 1 TAB PACU ONCE PO (CKD) Hydromorphone HCl (DILAUDID) 1 MG PACU Q10MIN PRN PRN IV Hydromorphone HCl (DILAUDID) 0.5 MG PACU Q5MIN PRN PRN IV Insulin Human Lispro (HUMALOG) 0 PACU ONCE PRN SUBQ Labetalol HCl (labetalol) 5 MG PACU Q10MIN PRN PRN IV Meperidine HCl (MEPERIDINE HCL/PF) 12.5 MG PACU ONCE PRN IV Morphine Sulfate (morphine SULFATE) 2 MG PACU Q10MIN PRN PRN IV Ondansetron HCl (ZOFRAN) 4 MG PACU ONCE PRN IV Ropivacaine (NAROPIN 0.5% 150 MG/30mL) 150 MG ASDIR PRN LOCAL Tramadol HCl (ULTRAM) 50 MG PACU ONCE PO (CKD) Insulin Glargine (Semglee) 40 UNIT BEDTIME SUBQ Ipratropium [place] (ATROVENT) 500 MCG RTQ2H PRN PRN INH Cyanocobalamin (Vitamin B-12 500 mcg tab) 500 MCG DAILY PO Ferrous Sulfate (FERROUS SULFATE) 325 MG DAILY PO Bisacodyl (DULCOLAX) 10 MG ONCE PRN RECTAL Magnesium Hydroxide (MILK OF MAGNESIA) 30 ML ONCE PRN PO Furosemide (LASIX) 240 MG Q24H IV (CKD) Sodium Chloride (SODIUM CHLORIDE 0.9%) 24 ML Vasopressin (VASOSTRICT 20 Unit/NS 100ML) 100 ML ASDIR IV (CKD) Dopamine HCl/Dextrose (DOPamine 400MG/D5W 250ML) 250 ML ASDIR IV Epinephrine (ADRENALIN CHLORIDE) 4 MG ASDIR IV Sodium Chloride (SODIUM CHLORIDE 0.9%) 246 ML Melatonin (Melatonin) 6 MG BEDTIME PRN PO Clopidogrel Bisulfate (Plavix) 75 MG DAILY PO Polyethylene Glycol (MIRALAX) 17 GM DAILY PO Pantoprazole (PROTONIX) 40 MG DAILY@0600 PO Milrinone Lactate/Dextrose (MILRINONE 20MG/D5W 100ML) 100 ML TITRATE IV (CKD) Aspirin (ASPIRIN) 81 MG DAILY PO Amiodarone HCl (CORDARONE) 200 MG TID PO Docusate Sodium (COLACE) 100 MG BID PO Gabapentin (NEURONTIN) 200 MG BID PO Metoprolol Tartrate (LOPRESSOR) 12.5 MG Q12HR PO Mupirocin (BACTROBAN 2% 22 GM OINTMENT) 1 APPLIC BID NASAL Sennosides (Senna Lax 8.6 MG TABLET) 17.2 MG BEDTIME PO Ipratropium [place] (ATROVENT) 500 MCG RTQ4H INH (DC) Calcium Chloride (CALCIUM CHLORIDE) 1 GM ASDIR PRN IV Dextrose/Water (DEXTROSE 10% IN WATER) 125 ML ASDIR PRN IV (CKD) Dextrose/Water (DEXTROSE 10% IN WATER) 250 ML ASDIR PRN IV (CKD) Insulin Human Regular (HumuLIN R) 100 UNIT ASDIR IV (CKD) Sodium Chloride (SODIUM CHLORIDE 0.9%) 99 ML Magnesium Sulfate (MAGNESIUM SULFATE 4GM/SWFI 100ML) 100 ML ASDIR PRN IV Magnesium Sulfate (MAGNESIUM SULFATE 2GM/SWFI 50ML) 50 ML ASDIR PRN IV Magnesium Sulfate/Dextrose (MAGNESIUM SULFATE 1GM/D5W 100ML) 100 ML ASDIR PRN IV Nitroglycerin/Dextrose (NITROGLYCERIN 50,000MCG/D5W 250ML) 250 ML ASDIR IV Norepinephrine Bitartrate (NOREPINEPHRINE 8 MG/NS 250 ML) 250 ML TITRATE IV Ondansetron HCl (ZOFRAN) 4 MG Q6H PRN PRN IV Oxycodone HCl (ROXICODONE) 5 MG Q4H PRN PRN PO Oxycodone HCl (ROXICODONE) 10 MG Q4H PRN PRN PO Potassium Chloride (KCL 20MEQ/SWFI 100ML) 100 ML ASDIR PRN IV Sodium Bicarbonate (SODIUM BICARBONATE) 50 MEQ ASDIR PRN IV Sodium Chloride (SODIUM CHLORIDE 0.9%) 1,000 ML .Q20H IV Sodium Chloride (SODIUM CHLORIDE 0.9%) 250 ML Q24H IV Lactulose (LACTULOSE) 10 GM DAILY PRN PRN PO Thiamine HCl (THIAMINE HCL) 100 MG DAILY PO Dietitian nutrition assessment The data set between the solid lines has been imported from the dietitian's assessment. BMI Calculated: 36.4 Nutrition related diagnosis: Nutrition diagnosis details: Nutrition problem: Increased nutrient needs Nutrition etiology: Acute illness Nutrition signs and symptoms: CARDIAC POST-OP Nutrition prescription: 1. CARDIAC CCD4 DIET 2. ENSURE MAX TID POST-OP 3. DIABETIC DIET EDUCATION PRIOR TO DC Dietitian name: Anju Armendariz RD, LD Assessment completed: 06/11/23 Physical Exam General appearance: alert, awake, oriented HEENT: atraumatic, normocephalic Neck: full range of motion Cardiovascular: normal S1/S2, regular rate rhythm Respiratory: symmetric expansion, no distress Abdomen: distended (mildly), non-tender, normal bowel sounds, soft, no guarding Extremities: moves all Musculoskeletal: normal inspection Neuro/BUSINESS AREA MANAGER: alert, normal speech Skin: dry, intact, normal color Psychiatry: normal affect, normal judgment/insight, normal mood Results Findings/Data: Laboratory Tests 06/15/23 1502: [Embedded Image Not Available] 06/15/23 0927: [Embedded Image Not Available] 06/15/23 0315: [Embedded Image Not Available] 06/15/23 0315: [Embedded Image Not Available] Laboratory Tests 06/14 06/14 06/14 1516 0919 0509 Blood Gas Puncture Site Art Line Art Line Art Line O2 Saturation (90 - 100 %) 90.2 97.1 91.0 ABG pH (7.35 - 7.45) 7.440 7.407 7.395 ABG pCO2 (35.0 - 45 mmHg) 25.8 *L 34.4 L 37.2 ABG pO2 (80 - 100.0 mmHg) 53.9 L 89.7 61.1 L ABG PO2/FiO2 Ratio (mm/Hg) 134.70 160.17 ABG HCO3 (22.0 - 26.0 MMOL/L) 17.6 *L 21.6 L 22.8 ABG Total CO2 18.4 22.7 23.9 ABG Base Excess (-4.0 - 4.0 MMOL/L) -6.7 L -3.0 -2.1 ABG Hematocrit (37.5 - 50.7 %) 25 L 30 L 31 L ABG Hemoglobin (12.5 - 16.9 G/DL) 8.6 L 10.1 L 10.6 L Mabel Test N/A Sodium (134 - 147 mmol/L) 132 L 129 L 131 L Potassium (3.4 - 5.0 mmol/L) 3.2 L 3.4 3.3 L Chloride (100 - 108 mmol/L) 100 96 L 98 L Ionized Calcium (1.12 - 1.32 MMOL/L) 0.98 L 1.11 L 1.13 Lactic Acid (0.9 - 1.7 mmol/l) 0.7 L 0.7 L 0.7 L Temperature (F) 97.7 97.7 O2 Delivery Device HFNC HFNC HFNC FiO2 (%) 40.0 56 Laboratory Tests 06/14 06/14 06/14 06/14 1516 1502 1136 0969 Chemistry Sodium (134 - 147 mEq/L) 133 L 130 L Potassium (3.4 - 5.0 mEq/L) 3.3 L 3.4 Chloride (100 - 108 mEq/L) 104 97 L Carbon Dioxide (21 - 33 mEq/l) 17 L 22 Anion Gap (0 - 20) 15 15 BUN (7 - 25 mg/dL) 50 H 72 H Creatinine (0.6 - 1.3 mg/dL) 1.9 H 2.3 H POC Creatinine (0.8 - 1.3 mg/dL) 2.0 H Glomerular Filtr Rate (80 - 90) 38.0 L 30.2 L Glucose (77 - 141 mg/dL) 195 H 182 H POC Glucose (70 - 110 MG/DL) 196 H POC Glucose (mg/dL) (70 - 110 MG/DL) 173 H Calcium (8.0 - 10.5 mg/dL) 6.9 L 8.2 Ionized Calcium Leanne (1.09 - 1.30 MMOL/L) 0.96 L 1.10 Magnesium (1.6 - 2.6 mg/dL) 2.14 2.30 06/14 06/14 06/14 06/14 06/14 0919 0810 0509 0315 0315 Chemistry Sodium (134 - 147 mEq/L) 130 L Potassium (3.4 - 5.0 mEq/L) 3.4 Chloride (100 - 108 mEq/L) 97 L Carbon Dioxide (21 - 33 mEq/l) 24 Anion Gap (0 - 20) 12 BUN (7 - 25 mg/dL) 73 H Creatinine (0.6 - 1.3 mg/dL) 2.4 H POC Creatinine (0.8 - 1.3 mg/dL) 2.7 H 2.4 H Glomerular Filtr Rate (80 - 90) 28.7 L Glucose (77 - 141 mg/dL) 166 H POC Glucose (70 - 110 MG/DL) 168 H POC Glucose (mg/dL) (70 - 110 MG/DL) 146 H 132 H Calcium (8.0 - 10.5 mg/dL) 8.3 Magnesium (1.6 - 2.6 mg/dL) 2.18 Total Bilirubin (0.0 - 1.0 mg/dL) 0.70 Direct Bilirubin (0.1 - 0.3 MG/DL) 0.30 Indirect Bilirubin (MG/DL) 0.40 AST (8 - 34 IUnit/L) 155 H ALT (10 - 49 IUnit/L) 111 H Total Alk Phosphatase (20 - 125 115 IUnit/L) Total Protein (6.4 - 8.2 g/dL) 5.9 L Albumin (3.4 - 5.0 g/dL) 2.80 L 06/14 06/14 06/13 06/13 06/13 0310 0039 2230 1957 1810 Chemistry POC Glucose (70 - 110 MG/DL) 169 H 175 H 213 H 263 H 290 H Laboratory Tests 06/14 0315 Hematology WBC (4.5 - 11.0 x10 3/uL) 13.9 H RBC (4.00 - 5.60 x10 6/uL) 3.14 L Hgb (12.5 - 16.9 g/dL) 9.6 L Hct (37.5 - 50.7 %) 28.9 L MCV (81.0 - 99.0 fL) 92.0 MCH (27.0 - 33.0 pg) 30.6 MCHC (33.0 - 37.0 g/dL) 33.2 RDW (11.5 - 14.5 %) 14.5 Plt Count (150 - 400 x10 3/uL) 132 L MPV (7.0 - 9.0 fL) 12.3 H Neut % (Auto) (56.0 - 77.0 %) 84.4 H Lymph % (Auto) (14.0 - 32.0 %) 4.5 L [place] % (Auto) (4.8 - 9.0 %) 8.7 Eos % (Auto) (0.3 - 3.7 %) 1.3 Baso % (Auto) (0.0 - 2.0 %) 0.1 Neut # (Auto) (2.0 - 7.6 x10 3/uL) 11.68 H Lymph # (Auto) (1.0 - 3.8 x10 3/uL) 0.63 L [place] # (Auto) (0.1 - 0.8 x10 3/uL) 1.21 H Eos # (Auto) (0.0 - 0.2 x10 3/uL) 0.18 Baso # (Auto) (0.0 - 0.2 x10 3/uL) 0.01 Abs Immat Gran (auto) (0.00 - 0.03 x10 3/uL) 0.14 H Immature Gran % (0.0 - 2.0 %) 1.0 Nucleated RBC % (0 - 0 %) 0.0 Nucleated RBCs # (Man) (0.0 - 0.1 x10 3/uL) 0.00 Radiology Data: Recent Impressions: RADIOLOGY - XR CHEST 1 V 06/14 0633 Report Impression - Status: SIGNED Entered: 06/15/2023 0733 IMPRESSION: 1. Lines and tubes are seen in suitable position. 2. CHF, unchanged. Impression By: [email or web address] Frandy Casanova M.D. Results: labs reviewed, vital signs reviewed, x-ray personally reviewed Diagnosis, Assessment Plan Problem List/A P: 1. Cirrhosis 2. Hepatitis C 3. Elevated LFTs 4. Alcohol dependence 5. CHF exacerbation Free Text A P: (06/03/2023) MELD score of 7, estimated 3-month mortality of 1.9% S/p CABG x 3, EVH, ALAA, PP, Doing better. + BM. Recommendations: 1. Monitor LFTs; avoid further hepatotoxic medications; improving 2. INR 1.1 3. Abdominal ultrasound revealed cirrhosis with splenomegaly, cholelithiasis, and nonspecific gallbladder wall thickening likely secondary to chronic liver disease as patient does not express abdominal pain at this time- repeat us shows similar findings 4. History of hepatitis C, PCR - not detected 5. Daily alcohol use, cont. MVI and thiamine; encouraged cessation 6. Agree with current bowel regimen prn 7. Further recommendations may follow Consultants: cardiology, cardiovascular surgery Rigoberto Jarrell 06/15/232055: Attestations Physician Attestation Agree w/findings plan: Agree with the findings and plan as documented by RAHUL Tobias. at 1739 at 2056 RPT #:[id number] END OF REPORT [facility] 2023-06-15 11:59:00 [facility] ([facility]) Critical Care Progress Note REPORT#:[id number] REPORT STATUS: Signed REPORT INITIALIZATION DATE:06/15/23 TIME: 115 PATIENT: MINDY CARTER UNIT #: [id number] ROOM/BED: [place] [address] : 54 AGE: 67 SEX: M ATTEND: Kimmie Bacon MD ADM AUTHOR: Светлана Arriaga MD REPT SERVICE DT/TIME: 06/15/23 1159 * ALL edits or amendments must be made on the electronic/computer document * Subjective Chief complaint: CABG x 3 (COSTA-LAD, SVG-Diag, SVG-OM) EVH (RGSV) ALAA PP HPI: This is a 67-year-old male with a past medical history significant for cirrhosis , high blood pressure, hyperlipidemia, diabetes, history of alcohol use, and CKD stage II admitted to the hospital with shortness of breath NSTEMI, underwent cardiac cath showed multivessel CAD. Patient underwent CABG x 3 (COSTA-LAD, SVG- Diag, SVG-OM)today. Intraoperatively patient received 400 cc crystalloid, 570 Cell Saver. Urine output was 200 cc. On arrival to ICU patient was intubated on ventilatory support. He was on 5 of Levophed, 10 of epinephrine and 0.5 of milrinone. Comments: Interval history- Patient is diuresing well with the Lasix. Will discontinue chest tube and [place] Objective General VS/I O Last Documented: Result Date Time O2 Delivery High flow nasal cannula 06/14 0920 O2 Flow Rate 9 06/14 0920 Pulse Ox 99 06/14 0735 B/P 116/61 06/14 0601 B/P Mean 83 06/14 0601 Pulse 76 06/14 0601 Resp 29 06/14 0601 FiO2 52 06/14 0417 Temp 37.1 06/13 1000 24 hour I O ending at 0700: 06/14 0700 06/13 1900 Intake Total 620 220 Output Total 2900 1600 Balance -2280 -1380 Intake, Oral 620 220 Output, Chest 1000 80 Tube Drainage Output, Urine 1900 1520 PATIENT WEIGHT: Weight (lb): 246 Weight (oz): 11.16 Weight (kg): 111.900 Medications: Active Meds + DC'd Last 24 Hrs Potassium Chloride (POTASSIUM CHLORIDE 20MEQ TAB.ER) 20 MEQ ONCE ONE PO (DC) Potassium Chloride (POTASSIUM CHLORIDE 20MEQ TAB.ER) 40 MEQ ONCE ONE PO (DC) Fentanyl Citrate (SUBLIMAZE) 100 MCG PACU Q10MIN PRN PRN IV Fentanyl Citrate (SUBLIMAZE) 50 MCG PACU Q10MIN PRN PRN IV Hydralazine HCl (APRESOLINE) 5 MG PACU Q10MIN PRN PRN IV Hydrocodone Bitart/Acetaminophen (NORCO 5/325) 1 TAB PACU ONCE PO (CKD) Hydromorphone HCl (DILAUDID) 1 MG PACU Q10MIN PRN PRN IV Hydromorphone HCl (DILAUDID) 0.5 MG PACU Q5MIN PRN PRN IV Insulin Human Lispro (HUMALOG) 0 PACU ONCE PRN SUBQ Labetalol HCl (labetalol) 5 MG PACU Q10MIN PRN PRN IV Meperidine HCl (MEPERIDINE HCL/PF) 12.5 MG PACU ONCE PRN IV Morphine Sulfate (morphine SULFATE) 2 MG PACU Q10MIN PRN PRN IV Ondansetron HCl (ZOFRAN) 4 MG PACU ONCE PRN IV Ropivacaine (NAROPIN 0.5% 150 MG/30mL) 150 MG ASDIR PRN LOCAL Tramadol HCl (ULTRAM) 50 MG PACU ONCE PO (CKD) Insulin Glargine ([place]) 40 UNIT BEDTIME SUBQ Ipratropium [place] (ATROVENT) 500 MCG RTQ2H PRN PRN INH Bisacodyl (DULCOLAX) 10 MG ONCE ONE RECTAL (DC) Cyanocobalamin (Vitamin B-12 500 mcg tab) 500 MCG DAILY PO Ferrous Sulfate (FERROUS SULFATE) 325 MG DAILY PO Bisacodyl (DULCOLAX) 10 MG ONCE PRN RECTAL Magnesium Hydroxide (MILK OF MAGNESIA) 30 ML ONCE PRN PO Furosemide (LASIX) 240 MG Q24H IV (CKD) Sodium Chloride (SODIUM CHLORIDE 0.9%) 24 ML Vasopressin (VASOSTRICT 20 Unit/NS 100ML) 100 ML ASDIR IV (CKD) Dopamine HCl/Dextrose (DOPamine 400MG/D5W 250ML) 250 ML ASDIR IV Epinephrine (ADRENALIN CHLORIDE) 4 MG ASDIR IV Sodium Chloride (SODIUM CHLORIDE 0.9%) 246 ML Melatonin (Melatonin) 6 MG BEDTIME PRN PO Clopidogrel Bisulfate (Plavix) 75 MG DAILY PO Polyethylene Glycol (MIRALAX) 17 GM DAILY PO Pantoprazole (PROTONIX) 40 MG DAILY@0600 PO Milrinone Lactate/Dextrose (MILRINONE 20MG/D5W 100ML) 100 ML TITRATE IV (CKD) Aspirin (ASPIRIN) 81 MG DAILY PO Amiodarone HCl (CORDARONE) 200 MG TID PO Docusate Sodium (COLACE) 100 MG BID PO Gabapentin (NEURONTIN) 200 MG BID PO Metoprolol Tartrate (LOPRESSOR) 12.5 MG Q12HR PO Mupirocin (BACTROBAN 2% 22 GM OINTMENT) 1 APPLIC BID NASAL Sennosides (Senna Lax 8.6 MG TABLET) 17.2 MG BEDTIME PO Ipratropium [place] (ATROVENT) 500 MCG RTQ4H INH (DC) Calcium Chloride (CALCIUM CHLORIDE) 1 GM ASDIR PRN IV Dextrose/Water (DEXTROSE 10% IN WATER) 125 ML ASDIR PRN IV (CKD) Dextrose/Water (DEXTROSE 10% IN WATER) 250 ML ASDIR PRN IV (CKD) Insulin Human Regular (HumuLIN R) 100 UNIT ASDIR IV (CKD) Sodium Chloride (SODIUM CHLORIDE 0.9%) 99 ML Magnesium Sulfate (MAGNESIUM SULFATE 4GM/SWFI 100ML) 100 ML ASDIR PRN IV Magnesium Sulfate (MAGNESIUM SULFATE 2GM/SWFI 50ML) 50 ML ASDIR PRN IV Magnesium Sulfate/Dextrose (MAGNESIUM SULFATE 1GM/D5W 100ML) 100 ML ASDIR PRN IV Nitroglycerin/Dextrose (NITROGLYCERIN 50,000MCG/D5W 250ML) 250 ML ASDIR IV Norepinephrine Bitartrate (NOREPINEPHRINE 8 MG/NS 250 ML) 250 ML TITRATE IV Ondansetron HCl (ZOFRAN) 4 MG Q6H PRN PRN IV Oxycodone HCl (ROXICODONE) 5 MG Q4H PRN PRN PO Oxycodone HCl (ROXICODONE) 10 MG Q4H PRN PRN PO Potassium Chloride (KCL 20MEQ/SWFI 100ML) 100 ML ASDIR PRN IV Sodium Bicarbonate (SODIUM BICARBONATE) 50 MEQ ASDIR PRN IV Sodium Chloride (SODIUM CHLORIDE 0.9%) 1,000 ML .Q20H IV Sodium Chloride (SODIUM CHLORIDE 0.9%) 250 ML Q24H IV Lactulose (LACTULOSE) 10 GM DAILY PRN PRN PO Thiamine HCl (THIAMINE HCL) 100 MG DAILY PO Physical Exam Head/eyes: atraumatic, clear cornea, EOMI Neck: RIJ CVL Cardiovascular: normal S1/S2 Respiratory: symmetric expansion Abdomen: soft, non-tender, no mass/organomegaly Extremities: edema (2+) Neuro/BUSINESS AREA MANAGER: alert, no motor deficits Results Findings/data: Laboratory Tests 06/14 06/14 0919 0509 Blood Gas Puncture Site Art Line Art Line O2 Saturation (90 - 100 %) 97.1 91.0 ABG pH (7.35 - 7.45) 7.407 7.395 ABG pCO2 (35.0 - 45 mmHg) 34.4 L 37.2 ABG pO2 (80 - 100.0 mmHg) 89.7 61.1 L ABG PO2/FiO2 Ratio (mm/Hg) 160.17 ABG HCO3 (22.0 - 26.0 MMOL/L) 21.6 L 22.8 ABG Total CO2 22.7 23.9 ABG Base Excess (-4.0 - 4.0 MMOL/L) -3.0 -2.1 ABG Hematocrit (37.5 - 50.7 %) 30 L 31 L ABG Hemoglobin (12.5 - 16.9 G/DL) 10.1 L 10.6 L Mabel Test N/A Sodium (134 - 147 mmol/L) 129 L 131 L Potassium (3.4 - 5.0 mmol/L) 3.4 3.3 L Chloride (100 - 108 mmol/L) 96 L 98 L Ionized Calcium (1.12 - 1.32 MMOL/L) 1.11 L 1.13 Lactic Acid (0.9 - 1.7 mmol/l) 0.7 L 0.7 L Temperature (F) 97.7 O2 Delivery Device HFNC HFNC FiO2 (%) 56 Laboratory Tests 06/14 06/14 06/14 06/14 06/14 1136 0927 0919 0810 0509 Chemistry Sodium (134 - 147 mEq/L) 130 L Potassium (3.4 - 5.0 mEq/L) 3.4 Chloride (100 - 108 mEq/L) 97 L Carbon Dioxide (21 - 33 mEq/l) 22 Anion Gap (0 - 20) 15 BUN (7 - 25 mg/dL) 72 H Creatinine (0.6 - 1.3 mg/dL) 2.3 H POC Creatinine (0.8 - 1.3 mg/dL) 2.7 H 2.4 H Glomerular Filtr Rate (80 - 90) 30.2 L Glucose (77 - 141 mg/dL) 182 H POC Glucose (70 - 110 MG/DL) 196 H 168 H POC Glucose (mg/dL) (70 - 110 MG/DL) 146 H 132 H Calcium (8.0 - 10.5 mg/dL) 8.2 Ionized Calcium Leanne (1.09 - 1.30 MMOL/L) 1.10 Magnesium (1.6 - 2.6 mg/dL) 2.30 06/145 0315 0310 0039 2230 Chemistry Sodium (134 - 147 mEq/L) 130 L Potassium (3.4 - 5.0 mEq/L) 3.4 Chloride (100 - 108 mEq/L) 97 L Carbon Dioxide (21 - 33 mEq/l) 24 Anion Gap (0 - 20) 12 BUN (7 - 25 mg/dL) 73 H Creatinine (0.6 - 1.3 mg/dL) 2.4 H Glomerular Filtr Rate (80 - 90) 28.7 L Glucose (77 - 141 mg/dL) 166 H POC Glucose (70 - 110 MG/DL) 169 H 175 H 213 H Calcium (8.0 - 10.5 mg/dL) 8.3 Magnesium (1.6 - 2.6 mg/dL) 2.18 Total Bilirubin (0.0 - 1.0 mg/dL) 0.70 Direct Bilirubin (0.1 - 0.3 MG/DL) 0.30 Indirect Bilirubin (MG/DL) 0.40 AST (8 - 34 IUnit/L) 155 H ALT (10 - 49 IUnit/L) 111 H Total Alk Phosphatase (20 - 125 IUnit/L) 115 Total Protein (6.4 - 8.2 g/dL) 5.9 L Albumin (3.4 - 5.0 g/dL) 2.80 L 06/13 1810 1719 1603 1223 Chemistry Sodium (134 - 147 mEq/L) 129 L Potassium (3.4 - 5.0 mEq/L) 4.5 Chloride (100 - 108 mEq/L) 99 L Carbon Dioxide (21 - 33 mEq/l) 20 L Anion Gap (0 - 20) 15 BUN (7 - 25 mg/dL) 64 H Creatinine (0.6 - 1.3 mg/dL) 2.6 H Glomerular Filtr Rate (80 - 90) 26.1 L Glucose (77 - 141 mg/dL) 322 H POC Glucose (70 - 110 MG/DL) 263 H 290 H 300 H 351 H Calcium (8.0 - 10.5 mg/dL) 8.5 Ionized Calcium Leanne (1.09 - 1.30 MMOL/L) 1.15 Magnesium (1.6 - 2.6 mg/dL) 2.33 Laboratory Tests 06/14 0315 Hematology WBC (4.5 - 11.0 x10 3/uL) 13.9 H RBC (4.00 - 5.60 x10 6/uL) 3.14 L Hgb (12.5 - 16.9 g/dL) 9.6 L Hct (37.5 - 50.7 %) 28.9 L MCV (81.0 - 99.0 fL) 92.0 MCH (27.0 - 33.0 pg) 30.6 MCHC (33.0 - 37.0 g/dL) 33.2 RDW (11.5 - 14.5 %) 14.5 Plt Count (150 - 400 x10 3/uL) 132 L MPV (7.0 - 9.0 fL) 12.3 H Neut % (Auto) (56.0 - 77.0 %) 84.4 H Lymph % (Auto) (14.0 - 32.0 %) 4.5 L [place] % (Auto) (4.8 - 9.0 %) 8.7 Eos % (Auto) (0.3 - 3.7 %) 1.3 Baso % (Auto) (0.0 - 2.0 %) 0.1 Neut # (Auto) (2.0 - 7.6 x10 3/uL) 11.68 H Lymph # (Auto) (1.0 - 3.8 x10 3/uL) 0.63 L [place] # (Auto) (0.1 - 0.8 x10 3/uL) 1.21 H Eos # (Auto) (0.0 - 0.2 x10 3/uL) 0.18 Baso # (Auto) (0.0 - 0.2 x10 3/uL) 0.01 Abs Immat Gran (auto) (0.00 - 0.03 x10 3/uL) 0.14 H Immature Gran % (0.0 - 2.0 %) 1.0 Nucleated RBC % (0 - 0 %) 0.0 Nucleated RBCs # (Man) (0.0 - 0.1 x10 3/uL) 0.00 Laboratory Tests 06/15/23 0927: [Embedded Image Not Available] 06/15/23 0315: [Embedded Image Not Available] 06/15/23 0315: [Embedded Image Not Available] 06/14/23 1223: [Embedded Image Not Available] Radiology data Recent Impressions: RADIOLOGY - XR CHEST 1 V 06/14 0633 Report Impression - Status: SIGNED Entered: 06/15/2023 0731 IMPRESSION: 1. Lines and tubes are seen in suitable position. 2. CHF, unchanged. Impression By: [email or web address] - Rogelio Casanova M.D. Free Text Obj Notes Free Text Obj Notes: Middle-age male alert and oriented not in distress Pupil equal reactive to light Neck supple Chest with sternotomy dressing, [address] Heart S1-S2 Abdomen soft, could not appreciate bowel sounds Extremities no edema, right leg dressed BUSINESS AREA MANAGER no deficits Diagnosis, Assessment Plan Free text A P: Multivessel CAD s/p CABG x 3 (COSTA-LAD, SVG-Diag, SVG-OM) ALAA Postoperative respiratory insufficiency following cardiac surgery Postoperative pain Shock Leukocytosis Liver cirrhosis EtOH dependence Increasing LFTs with underlying liver cirrhosis. Plan: BUSINESS AREA MANAGER: Awake and alert. No signs and symptoms of alcohol withdrawal. He received multivitamin during earlier days of admission. Cardiovascular: EF about 55 to 60% Off all pressors. On aspirin and Plavix. Continue beta-huy and amiodarone. Discontinue chest tubes. Respiratory: Patient is on 10 L high flow nasal cannula downtrending to 6 L. ABG and chest x-ray reviewed. Pulmonary toilet. Incentive spirometry. GI: Cardiac diet. LFTs improving, u/s showing liver cirrhosis and nothing acute. Elevation multifactorial including shock and amiodarone. Hematology: Hemoglobin is stable. SCDs. Endocrine: Insulin for glucose control. Glucose levels still elevated. Increase Lantus to 40u daily and wean off insulin drip. ID: Perioperative prophylaxis Renal: Creatinine is improving.decrease the rate to 10/hour. Monitor the BMP Full code Updated Mindy on current plan of care. Total critical care time excluding procedures was 40 minutes. Consultants: cardiology, cardiovascular surgery at 1304 RPT #:[id number] END OF REPORT [facility] 2023-06-15 10:56:00 [facility] ([facility]) Nephrology Progress Note REPORT#:[id number] REPORT STATUS: Signed REPORT INITIALIZATION DATE:06/15/23 TIME: 1055 PATIENT: MINDY CARTER UNIT #: [id number] ROOM/BED: [place] [address] : 54 AGE: 67 SEX: M ATTEND: Kimmie Bacon MD ADM AUTHOR: Nkechi Bacon MD REPT SERVICE DT/TIME: 06/15/23 1056 * ALL edits or amendments must be made on the electronic/computer document * Subjective Chief complaint: SOB, CP HPI: 67-year-old male known to have hypertension, diabetes mellitus, hyperlipidemia, liver cirrhosis, chronic kidney disease who presented with shortness of breath and chest tightness and on further workup was found to have multivessel disease therefore he was being worked up for possible CABG. He said he had been diagnosed recently with chronic kidney disease but did not have any nausea, orthopnea, cramping, change of taste, involuntary movements, urinary complaints. He denied any chronic use of NSAIDs. He said for most part his blood pressures were controlled at home. 06/14 Patient on oxygen no distress. Objective General VS/I O: Vital Signs: Date Time Temp Pulse Resp B/P B/P Pulse O2 O2 Flow FiO2 Mean Ox Delivery Rate 06/14 06 116/61 83 06/14 0601 76 29 132/54 75 96 06/14 0600 75 27 129/53 74 95 06/14 0500 98/57 75 06/14 0500 70 21 122/54 73 95 06/14 0417 98 Nasal 8 52 cannula 06/14 0400 96/54 70 03/ 0400 68 15 113/52 69 98 / 0300 97/56 73 03/ 0300 69 15 117/54 71 97 / 0200 97/52 69 03/ 0200 71 16 121/55 73 97 / 0100 105/60 78 03/ 0100 70 17 120/55 72 98 03/ 0000 98/74 81 03/ 0000 71 33 118/55 73 96 06/13 2300 100/58 73 06/13 2300 71 17 124/56 75 97 / 2200 90/53 66 / 2200 71 17 115/54 71 98 / 2100 102/57 76 / 2100 74 19 127/57 76 98 06/13 2025 96 High flow 8 nasal cannula 06/14 1999 High flow 8 nasal cannula 06/14 1999 105/57 73 06/13 2000 75 31 120/60 79 94 06/13 1917 109/63 79 06/13 1900 74 27 116/55 73 97 06/13 1800 76 31 126/58 76 96 06/13 1700 76 33 114/55 72 98 06/13 1600 80 28 127/58 77 95 06/13 1500 76 33 120/55 71 100 06/13 1459 97 High flow 8 nasal cannula 06/13 1430 76 40 115/53 71 85 06/13 1400 110/65 83 06/13 1400 79 25 114/52 68 100 06/13 1330 79 34 115/49 66 100 06/13 1300 76 36 106/50 65 96 06/13 1217 125/66 87 06/13 1201 84 36 243/243 243 94 06/13 1200 84 37 243/243 243 96 06/13 1129 96 High flow 11 nasal cannula 24 hour I O ending at 0700: 06/14 0700 06/13 1900 Intake Total 620 220 Output Total 2900 1600 Balance -2280 -1380 Intake, Oral 620 220 Output, Chest 1000 80 Tube Drainage Output, Urine 1900 1520 PATIENT WEIGHT: Weight (lb): 246 Weight (oz): 11.16 Weight (kg): 111.900 Physical Exam General appearance: alert, awake, oriented Head/eyes: atraumatic, EOMI ENT: moist mucous membranes, normal nose Neck: no JVD, no lymphadenopathy Cardiovascular: normal heart sounds, regular rate and rhythm Respiratory: aerating well, clear to auscultation Abdomen: non-tender, soft Genitourinary: no bladder distention, no flank pain Extremities: no edema, no gangrene, no swelling Diagnosis, Assessment Plan Free Text A P: 67-year-old male known to have hypertension, diabetes mellitus, hyperlipidemia, liver cirrhosis, chronic kidney disease who presented with shortness of breath and chest tightness and on further workup was found to have multivessel disease therefore he was being worked up for possible CABG. He said he had been diagnosed recently with chronic kidney disease but did not have any nausea, orthopnea, cramping, change of taste, involuntary movements, urinary complaints. He denied any chronic use of NSAIDs. He said for most part his blood pressures were controlled at home. Nephrology following for: 1. CKD:: Most recent creatinine was staying in normal range therefore plan is to keep mean arterial pressure above 65 and avoid nephrotoxic agents. 2. Hypertension: Mostly controlled therefore plan is to continue same. 3. Hypervolemia: Plan is to monitor input and output closely and treat with Lasix if needed. His echocardiogram showed an EF of 55 to 60%. 4. Chest pain/shortness of breath: He had been worked up with left heart cath and received contrast recently. Plan was to monitor closely for contrast- induced nephropathy and keep hydrated. 06/14 1. NIYA on CKD: Most likely cardiorenal.He is on lasix drip and slowly improving volume and renal function. 2. Hypotension:He is post op CABG and is requiring pressor support, plan to monitor and keep MAP>65. 3. Hypervolemia: He is post op CABG and has recieved fluids during surgey, he is improving volume slowly with lasix drip.Plan to wean drip as his oxygenation improves. 4. Chest pain/shortness of breath: s/p CABG 06/10. Consultants: cardiology, cardiovascular surgery at 1057 RPT #:[id number] END OF REPORT [facility] 2023-06-15 09:04:00 [facility] ([facility]) Hospitalist Progress Note REPORT#:[id number] REPORT STATUS: Signed REPORT INITIALIZATION DATE:06/15/23 TIME: 903 PATIENT: MINDY CARTER UNIT #: [id number] ROOM/BED: [place] [address] : 54 AGE: 67 SEX: M ATTEND: Kimmie Bacon MD ADM AUTHOR: Kimmie Bacon MD REPT SERVICE DT/TIME: 06/15/23 0904 * ALL edits or amendments must be made on the electronic/computer document * Subjective Chief complaint: Chest pain improved, chest tubes removed, on 8 L oxygen via nasal cannula, off pressors, fluid overload on chest x-ray, on Lasix drip, on insulin drip, kidney function improving. Working with PT/OT. Slept well last night. HPI: This is a 67-year-old male with history of high blood pressure, hyperlipidemia, diabetes mellitus, syncope, neuropathy, alcohol use, liver cirrhosis, stage II CKD presents with shortness of breath that has been increasing since 2 days ago. Patient took extra dose of Aldactone and hydrochlorothiazide which did not help. Patient also reports chest tightness and is currently on 5 L of oxygen per nasal cannula. Patient says that he cannot lie down he gets short of breath when he lies down. He drinks whiskey about 3 shots a day. He has been having increasing edema in bilateral lower extremities. No headaches or dizziness. No other complaints elicited. Objective General VS/I O: Vital Signs: Date Time Temp Pulse Resp B/P B/P Pulse O2 O2 Flow FiO2 Mean Ox Delivery Rate 06/14 0920 High flow 9 nasal cannula 06/14 0800 97.7 06/14 0735 99 High flow 10 nasal cannula 06/14 0730 High flow 10 nasal cannula 06/14 0601 116/61 83 06/14 0601 76 29 132/54 75 96 06/14 0600 75 27 129/53 74 95 06/14 0500 98/57 75 06/14 0500 70 21 122/54 73 95 06/14 0417 98 Nasal 8 52 cannula 06/14 0400 96/54 70 06/14 0400 68 15 113/52 69 98 06/14 0300 97/56 73 06/14 0300 69 15 117/54 71 97 06/14 0200 97/52 69 06/14 0200 71 16 121/55 73 97 06/14 0100 105/60 78 06/14 0100 70 17 120/55 72 98 06/14 0000 98/74 81 06/14 0000 71 33 118/55 73 96 06/13 2300 100/58 73 06/13 2300 71 17 124/56 75 97 06/13 2200 90/53 66 06/13 2200 71 17 115/54 71 98 06/13 2100 102/57 76 06/13 2100 74 19 127/57 76 98 06/13 2026 96 High flow 8 nasal cannula 06/14 1999 High flow 8 nasal cannula 06/14 1999 105/57 73 06/13 2000 75 31 120/60 79 94 06/13 1917 109/63 79 06/13 1900 74 27 116/55 73 97 06/13 1800 76 31 126/58 76 96 06/13 1700 76 33 114/55 72 98 06/13 1600 80 28 127/58 77 95 24 hour I O ending at 0700: 06/14 0700 06/13 1900 Intake Total 620 220 Output Total 2900 1600 Balance -2280 -1380 Intake, Oral 620 220 Output, Chest 1000 80 Tube Drainage Output, Urine 1900 1520 PATIENT WEIGHT: Weight (lb): 246 Weight (oz): 11.16 Weight (kg): 111.900 Medications: Active Meds + DC'd Last 24 Hrs Calcium Gluconate (Calcium Gluconate 1 GM/NS 50 mL (B2)) 50 ML ONCE ONE IV (DC) Potassium Chloride (POTASSIUM CHLORIDE 20MEQ TAB.ER) 20 MEQ ONCE ONE PO (DC) Potassium Chloride (POTASSIUM CHLORIDE 20MEQ TAB.ER) 40 MEQ ONCE ONE PO (DC) Fentanyl Citrate (SUBLIMAZE) 100 MCG PACU Q10MIN PRN PRN IV Fentanyl Citrate (SUBLIMAZE) 50 MCG PACU Q10MIN PRN PRN IV Hydralazine HCl (APRESOLINE) 5 MG PACU Q10MIN PRN PRN IV Hydrocodone Bitart/Acetaminophen (NORCO 5/325) 1 TAB PACU ONCE PO (CKD) Hydromorphone HCl (DILAUDID) 1 MG PACU Q10MIN PRN PRN IV Hydromorphone HCl (DILAUDID) 0.5 MG PACU Q5MIN PRN PRN IV Insulin Human Lispro (HUMALOG) 0 PACU ONCE PRN SUBQ Labetalol HCl (labetalol) 5 MG PACU Q10MIN PRN PRN IV Meperidine HCl (MEPERIDINE HCL/PF) 12.5 MG PACU ONCE PRN IV Morphine Sulfate (morphine SULFATE) 2 MG PACU Q10MIN PRN PRN IV Ondansetron HCl (ZOFRAN) 4 MG PACU ONCE PRN IV Ropivacaine (NAROPIN 0.5% 150 MG/30mL) 150 MG ASDIR PRN LOCAL Tramadol HCl (ULTRAM) 50 MG PACU ONCE PO (CKD) Insulin Glargine (Semglee) 40 UNIT BEDTIME SUBQ Ipratropium [place] (ATROVENT) 500 MCG RTQ2H PRN PRN INH Bisacodyl (DULCOLAX) 10 MG ONCE ONE RECTAL (DC) Cyanocobalamin (Vitamin B-12 500 mcg tab) 500 MCG DAILY PO Ferrous Sulfate (FERROUS SULFATE) 325 MG DAILY PO Bisacodyl (DULCOLAX) 10 MG ONCE PRN RECTAL Magnesium Hydroxide (MILK OF MAGNESIA) 30 ML ONCE PRN PO Furosemide (LASIX) 240 MG Q24H IV (CKD) Sodium Chloride (SODIUM CHLORIDE 0.9%) 24 ML Vasopressin (VASOSTRICT 20 Unit/NS 100ML) 100 ML ASDIR IV (CKD) Dopamine HCl/Dextrose (DOPamine 400MG/D5W 250ML) 250 ML ASDIR IV Epinephrine (ADRENALIN CHLORIDE) 4 MG ASDIR IV Sodium Chloride (SODIUM CHLORIDE 0.9%) 246 ML Melatonin (Melatonin) 6 MG BEDTIME PRN PO Clopidogrel Bisulfate (Plavix) 75 MG DAILY PO Polyethylene Glycol (MIRALAX) 17 GM DAILY PO Pantoprazole (PROTONIX) 40 MG DAILY@0600 PO Milrinone Lactate/Dextrose (MILRINONE 20MG/D5W 100ML) 100 ML TITRATE IV (CKD) Aspirin (ASPIRIN) 81 MG DAILY PO Amiodarone HCl (CORDARONE) 200 MG TID PO Docusate Sodium (COLACE) 100 MG BID PO Gabapentin (NEURONTIN) 200 MG BID PO Metoprolol Tartrate (LOPRESSOR) 12.5 MG Q12HR PO Mupirocin (BACTROBAN 2% 22 GM OINTMENT) 1 APPLIC BID NASAL Sennosides (Senna Lax 8.6 MG TABLET) 17.2 MG BEDTIME PO Ipratropium [place] (ATROVENT) 500 MCG RTQ4H INH (DC) Calcium Chloride (CALCIUM CHLORIDE) 1 GM ASDIR PRN IV Dextrose/Water (DEXTROSE 10% IN WATER) 125 ML ASDIR PRN IV (CKD) Dextrose/Water (DEXTROSE 10% IN WATER) 250 ML ASDIR PRN IV (CKD) Insulin Human Regular (HumuLIN R) 100 UNIT ASDIR IV (CKD) Sodium Chloride (SODIUM CHLORIDE 0.9%) 99 ML Magnesium Sulfate (MAGNESIUM SULFATE 4GM/SWFI 100ML) 100 ML ASDIR PRN IV Magnesium Sulfate (MAGNESIUM SULFATE 2GM/SWFI 50ML) 50 ML ASDIR PRN IV Magnesium Sulfate/Dextrose (MAGNESIUM SULFATE 1GM/D5W 100ML) 100 ML ASDIR PRN IV Nitroglycerin/Dextrose (NITROGLYCERIN 50,000MCG/D5W 250ML) 250 ML ASDIR IV Norepinephrine Bitartrate (NOREPINEPHRINE 8 MG/NS 250 ML) 250 ML TITRATE IV Ondansetron HCl (ZOFRAN) 4 MG Q6H PRN PRN IV Oxycodone HCl (ROXICODONE) 5 MG Q4H PRN PRN PO Oxycodone HCl (ROXICODONE) 10 MG Q4H PRN PRN PO Potassium Chloride (KCL 20MEQ/SWFI 100ML) 100 ML ASDIR PRN IV Sodium Bicarbonate (SODIUM BICARBONATE) 50 MEQ ASDIR PRN IV Sodium Chloride (SODIUM CHLORIDE 0.9%) 1,000 ML .Q20H IV Sodium Chloride (SODIUM CHLORIDE 0.9%) 250 ML Q24H IV Lactulose (LACTULOSE) 10 GM DAILY PRN PRN PO Thiamine HCl (THIAMINE HCL) 100 MG DAILY PO Physical Exam General appearance: alert, awake, oriented Head/Eyes: atraumatic, clear cornea, EOMI, PERRLA ENT: moist mucosal membranes Neck: normal thyroid, supple/no meningismus Cardiovascular: normal heart sounds, regular rate rhythm, no gallop, no murmur , no rub Respiratory: hypoxia, on oxygen Abdomen: non-tender, normal bowel sounds, soft Extremities: edema, no clubbing, no cyanosis Neuro/BUSINESS AREA MANAGER: alert, oriented X 3, CNII-XII intact Skin: dry, intact, no rash Psychiatry: normal affect Results Findings/Data: Laboratory Tests 06/14 06/14 06/14 1516 0919 0509 Blood Gas Puncture Site Art Line Art Line Art Line O2 Saturation (90 - 100 %) 90.2 97.1 91.0 ABG pH (7.35 - 7.45) 7.440 7.407 7.395 ABG pCO2 (35.0 - 45 mmHg) 25.8 *L 34.4 L 37.2 ABG pO2 (80 - 100.0 mmHg) 53.9 L 89.7 61.1 L ABG PO2/FiO2 Ratio (mm/Hg) 134.70 160.17 ABG HCO3 (22.0 - 26.0 MMOL/L) 17.6 *L 21.6 L 22.8 ABG Total CO2 18.4 22.7 23.9 ABG Base Excess (-4.0 - 4.0 MMOL/L) -6.7 L -3.0 -2.1 ABG Hematocrit (37.5 - 50.7 %) 25 L 30 L 31 L ABG Hemoglobin (12.5 - 16.9 G/DL) 8.6 L 10.1 L 10.6 L Mabel Test N/A Sodium (134 - 147 mmol/L) 132 L 129 L 131 L Potassium (3.4 - 5.0 mmol/L) 3.2 L 3.4 3.3 L Chloride (100 - 108 mmol/L) 100 96 L 98 L Ionized Calcium (1.12 - 1.32 MMOL/L) 0.98 L 1.11 L 1.13 Lactic Acid (0.9 - 1.7 mmol/l) 0.7 L 0.7 L 0.7 L Temperature (F) 97.7 97.7 O2 Delivery Device HFNC HFNC HFNC FiO2 (%) 40.0 56 Laboratory Tests 06/14 06/14 06/14 06/14 06/14 1516 1136 0927 0919 0810 Chemistry Sodium (134 - 147 mEq/L) 130 L Potassium (3.4 - 5.0 mEq/L) 3.4 Chloride (100 - 108 mEq/L) 97 L Carbon Dioxide (21 - 33 mEq/l) 22 Anion Gap (0 - 20) 15 BUN (7 - 25 mg/dL) 72 H Creatinine (0.6 - 1.3 mg/dL) 2.3 H POC Creatinine (0.8 - 1.3 mg/dL) 2.0 H 2.7 H Glomerular Filtr Rate (80 - 90) 30.2 L Glucose (77 - 141 mg/dL) 182 H POC Glucose (70 - 110 MG/DL) 196 H 168 H POC Glucose (mg/dL) (70 - 110 MG/DL) 173 H 146 H Calcium (8.0 - 10.5 mg/dL) 8.2 Ionized Calcium Leanne (1.09 - 1.30 MMOL/L) 1.10 Magnesium (1.6 - 2.6 mg/dL) 2.30 06/14 06/14 06/14 06/14 06/14 0509 0315 0315 0310 0039 Chemistry Sodium (134 - 147 mEq/L) 130 L Potassium (3.4 - 5.0 mEq/L) 3.4 Chloride (100 - 108 mEq/L) 97 L Carbon Dioxide (21 - 33 mEq/l) 24 Anion Gap (0 - 20) 12 BUN (7 - 25 mg/dL) 73 H Creatinine (0.6 - 1.3 mg/dL) 2.4 H POC Creatinine (0.8 - 1.3 mg/dL) 2.4 H Glomerular Filtr Rate (80 - 90) 28.7 L Glucose (77 - 141 mg/dL) 166 H POC Glucose (70 - 110 MG/DL) 169 H 175 H POC Glucose (mg/dL) (70 - 110 MG/DL) 132 H Calcium (8.0 - 10.5 mg/dL) 8.3 Magnesium (1.6 - 2.6 mg/dL) 2.18 Total Bilirubin (0.0 - 1.0 mg/dL) 0.70 Direct Bilirubin (0.1 - 0.3 MG/DL) 0.30 Indirect Bilirubin (MG/DL) 0.40 AST (8 - 34 IUnit/L) 155 H ALT (10 - 49 IUnit/L) 111 H Total Alk Phosphatase (20 - 125 IUnit/L) 115 Total Protein (6.4 - 8.2 g/dL) 5.9 L Albumin (3.4 - 5.0 g/dL) 2.80 L 06/130 1957 1810 1719 1603 Chemistry POC Glucose (70 - 110 MG/DL) 213 H 263 H 290 H 300 H 351 H Laboratory Tests 06/14 031 Hematology WBC (4.5 - 11.0 x10 3/uL) 13.9 H RBC (4.00 - 5.60 x10 6/uL) 3.14 L Hgb (12.5 - 16.9 g/dL) 9.6 L Hct (37.5 - 50.7 %) 28.9 L MCV (81.0 - 99.0 fL) 92.0 MCH (27.0 - 33.0 pg) 30.6 MCHC (33.0 - 37.0 g/dL) 33.2 RDW (11.5 - 14.5 %) 14.5 Plt Count (150 - 400 x10 3/uL) 132 L MPV (7.0 - 9.0 fL) 12.3 H Neut % (Auto) (56.0 - 77.0 %) 84.4 H Lymph % (Auto) (14.0 - 32.0 %) 4.5 L [place] % (Auto) (4.8 - 9.0 %) 8.7 Eos % (Auto) (0.3 - 3.7 %) 1.3 Baso % (Auto) (0.0 - 2.0 %) 0.1 Neut # (Auto) (2.0 - 7.6 x10 3/uL) 11.68 H Lymph # (Auto) (1.0 - 3.8 x10 3/uL) 0.63 L [place] # (Auto) (0.1 - 0.8 x10 3/uL) 1.21 H Eos # (Auto) (0.0 - 0.2 x10 3/uL) 0.18 Baso # (Auto) (0.0 - 0.2 x10 3/uL) 0.01 Abs Immat Gran (auto) (0.00 - 0.03 x10 3/uL) 0.14 H Immature Gran % (0.0 - 2.0 %) 1.0 Nucleated RBC % (0 - 0 %) 0.0 Nucleated RBCs # (Man) (0.0 - 0.1 x10 3/uL) 0.00 Radiology data: Recent Impressions: RADIOLOGY - XR CHEST 1 V 06/14 4598 Report Impression - Status: SIGNED Entered: 06/15/2023 8440 IMPRESSION: 1. Lines and tubes are seen in suitable position. 2. CHF, unchanged. Impression By: LandyNBKaila Casanova M.D. Diagnosis, Assessment Plan Consultants: cardiology, cardiovascular surgery Free Text DxA P Notes Free text DxA P notes: Shortness of breath/hypoxia: On 8 L oxygen via nasal cannula Fluid overload on chest x-ray On Lasix drip ICC on board Acute on chronic diastolic congestive heart failure: - Cardiology consulted - Echo: EF 55 to 60% S/p CABG on 06/10 Milrinone drip DC'd On Lasix drip 06/12 On BiPAP now off BiPAP 06/13 On 8 L oxygen via nasal cannula 06/13 Multivessel CAD: S/p CABG on 06/10 On aspirin, Plavix, amiodarone - no statin for abnormal LFTs/cirrhosis On milrinone drip DC'd Chest tube in place DC'd Cardiology, CT surgery, ICC on board Hypotension: BP dropped to 80s over 50s overnight 06/11 On Levophed and vasopressin off pressors ICC, CT surgery on board NIYA: Likely due to above causes Metolazone x 1 given 06/12 On Lasix drip, if urinary output does not improve, may require CRRT 06/12 Nephrology on board Renal function improving Pleural effusion: On Lasix drip Leukocytosis: Likely reactive Monitor and defer to further management to [facility] Leukocytosis improving Abnormal LFTs: -cholelithiasis with distended GB, no acute cholecystitis on US - Monitor - GI on board Diabetes mellitus A1c 8.4% Insulin drip, transition to Sliding scale insulin as needed, long acting insulin as per [facility] Hypertension Renew medications once they have been updated in the computer Now on pressors for hypotension Check labs in the a.m. Patient does not have a living will or medical power of defense attorney Patient is a full code 06/01 multivessel disease on cath, CTS consulted, patient undergoing preop evaluation for possible CABG. 06/02- pt continues cabg eval, conf Fri, nephro/GI consulted per cts, renal indices wnls today, Abd us confirmed cirrhosis with splenomegaly. 06/03 patient continues preop evaluation for CABG, IV Lasix transition to oral 06/04 CABG preop planning 06/05- CABG planning 06/06 ongoing CABG planning per CTS, blood sugars noted to be elevated in 240s to 300s. Will start on basal insulin 7 units for now daily, continue meal correctional insulin. Patient on glipizide and metformin at home holding for now given CABG eval and and pending surgical date. 06/07- pending CABG eval, d/w Cardiology and started patient on IV lasix 40 mg BID due to increasing wt, symptoms of dyspnea. Monitor I'O's. 06/08- poorly controlled blood sugars noted, increased basal insulin to 10 units daily, add meal time insulin AC, wt based compared to SSI admin, started on 4 Units reg insulin AC. Monitor I/O, contiued on IV lasix 40 mg BID, wt 110 kg today (dry wt reported to be 105 kg). 06/09- optimize insulin for improved glucose control, pending cabg tomorrow 06/10- pending cabg Disposition: S/p CABG on 06/11/2023. Chest tubes removed, on 8 L oxygen via nasal cannula, off pressors, fluid overload on chest x-ray, on Lasix drip, on insulin drip, kidney function improving. Working with PT/OT. Multiple specialty services on board. Continue CVICU care. Quality: Gen Med Crit Care VTE Prophylaxis VTE prophylaxis initiated: yes Current Medications Current medication review: I attest that the foregoing medication list in the medical record is true, accurate, and complete to the best of my knowledge. Advanced Care Plan 65 or Older Discussed with: patient Discussion included: living will, power of defense attorney, code status at 1543 RPT #:[id number] END OF REPORT [facility] 2023-06-14 23:44:00 [facility] ([facility]) Nephrology Progress Note REPORT#:[id number] REPORT STATUS: Signed REPORT INITIALIZATION DATE:06/14/23 TIME: 2343 PATIENT: MINDY CARTER UNIT #: [id number] ROOM/BED: [place] [address] : 54 AGE: 67 SEX: M ATTEND: Kimmie Bacon MD ADM AUTHOR: Nkechi Bacon MD REPT SERVICE DT/TIME: 06/14/232343 * ALL edits or amendments must be made on the electronic/computer document * Subjective Chief complaint: SOB, CP HPI: 67-year-old male known to have hypertension, diabetes mellitus, hyperlipidemia, liver cirrhosis, chronic kidney disease who presented with shortness of breath and chest tightness and on further workup was found to have multivessel disease therefore he was being worked up for possible CABG. He said he had been diagnosed recently with chronic kidney disease but did not have any nausea, orthopnea, cramping, change of taste, involuntary movements, urinary complaints. He denied any chronic use of NSAIDs. He said for most part his blood pressures were controlled at home. 06/13 Patient on oxygen no distress. Objective General VS/I O: Vital Signs: Date Time Temp Pulse Resp B/P B/P Pulse O2 O2 Flow FiO2 Mean Ox Delivery Rate 06/14 0601 116/61 83 06/14 0601 76 29 132/54 75 96 06/14 0600 75 27 129/53 74 95 06/14 0500 98/57 75 03 0500 70 21 122/54 73 95 06/14 0417 98 Nasal 8 52 cannula 06/14 0400 96/54 70 06/14 0400 68 15 113/52 69 98 / 0300 97/56 73 03/ 0300 69 15 117/54 71 97 / 0200 97/52 69 03/ 0200 71 16 121/55 73 97 / 0100 105/60 78 / 0100 70 17 120/55 72 98 / 0000 98/74 81 03/ 0000 71 33 118/55 73 96 03/18 2300 100/58 73 03/18 2300 71 17 124/56 75 97 03/18 2200 90/53 66 /18 2200 71 17 115/54 71 98 /18 2100 102/57 76 03/18 2100 74 19 127/57 76 98 06/13 2026 96 High flow 8 nasal cannula 06/14 1999 High flow 8 nasal cannula 06/14 1999 105/57 73 /18 2000 75 31 120/60 79 94 03/18 1917 109/63 79 03/18 1900 74 27 116/55 73 97 /18 1800 76 31 126/58 76 96 /18 1700 76 33 114/55 72 98 /18 1600 80 28 127/58 77 95 /18 1500 76 33 120/55 71 100 18 1459 97 High flow 8 nasal cannula 06/13 1430 76 40 115/53 71 85 /18 1400 110/65 83 03/18 1400 79 25 114/52 68 100 /18 1330 79 34 115/49 66 100 03/18 1300 76 36 106/50 65 96 06/13 1217 125/66 87 06/13 1201 84 36 243/243 243 94 06/13 1200 84 37 243/243 243 96 06/13 1129 96 High flow 11 nasal cannula 24 hour I O ending at 0700: 06/14 0700 06/13 1900 Intake Total 620 220 Output Total 2900 1600 Balance -2280 -1380 Intake, Oral 620 220 Output, Chest 1000 80 Tube Drainage Output, Urine 1900 1520 PATIENT WEIGHT: Weight (lb): 246 Weight (oz): 11.16 Weight (kg): 111.900 Physical Exam General appearance: alert, awake, oriented Head/eyes: atraumatic, EOMI ENT: moist mucous membranes, normal nose Neck: no JVD, no lymphadenopathy Cardiovascular: normal heart sounds, regular rate and rhythm Respiratory: aerating well, clear to auscultation Abdomen: non-tender, soft Genitourinary: no bladder distention, no flank pain Extremities: no edema, no gangrene, no swelling Diagnosis, Assessment Plan Free Text A P: 67-year-old male known to have hypertension, diabetes mellitus, hyperlipidemia, liver cirrhosis, chronic kidney disease who presented with shortness of breath and chest tightness and on further workup was found to have multivessel disease therefore he was being worked up for possible CABG. He said he had been diagnosed recently with chronic kidney disease but did not have any nausea, orthopnea, cramping, change of taste, involuntary movements, urinary complaints. He denied any chronic use of NSAIDs. He said for most part his blood pressures were controlled at home. Nephrology following for: 1. CKD:: Most recent creatinine was staying in normal range therefore plan is to keep mean arterial pressure above 65 and avoid nephrotoxic agents. 2. Hypertension: Mostly controlled therefore plan is to continue same. 3. Hypervolemia: Plan is to monitor input and output closely and treat with Lasix if needed. His echocardiogram showed an EF of 55 to 60%. 4. Chest pain/shortness of breath: He had been worked up with left heart cath and received contrast recently. Plan was to monitor closely for contrast- induced nephropathy and keep hydrated. 06/13 1. NIYA on CKD: Most likely cardiorenal.He is on lasix drip and slowly improving volume and renal function. 2. Hypotension:He is post op CABG and is requiring pressor support, plan to monitor and keep MAP>65. 3. Hypervolemia: He is post op CABG and has recieved fluids during surgey, he is improving volume slowly with lasix drip. 4. Chest pain/shortness of breath: s/p CABG 06/10. Consultants: cardiology, cardiovascular surgery at 1054 RPT #:[id number] END OF REPORT [facility] 2023-06-14 18:24:00 [id number] [place] [id number] PATIENT NAME: MINDY CARTER ADMIT DATE: 05/31/23 ACCOUNT NO: [id number] ROOM NO: G.2202 AGE: 67 REPORT TYPE: eECHOCARDIOGRAM REPORT SEX: M ADMITTING PHYSICIAN:Eleonora Mai MD ATTENDING PHYSICIAN:Kimmie Bacon MD *[place] [address] Limited Transthoracic Echocardiogram Patient: Mindy Carter Study Date: 06/14/2023 BP: 112 / 58 URN: [id number] Location: : 1955 Age: 67 Gender: M Height: 69 in / 175.3 cm Weight: 246 lb / 111.6 kg BMI/BSA: 36.3 kg/m 2 / 2.37 m 2 *Ordering Physician: * Johnna Pablo Physic *Interpreting Physician: * Clayton Nathan MD *Continuing Education Specialist: * Johanna Lundy Indications: Evaluation left ventricle and right ventricular function. Study data: Transthoracic echocardiogram, limited study. Procedure: A transthoracic echocardiogram was performed. Image quality was adequate. Limited 2D and limited spectral Doppler. [facility] Patient status: Inpatient. Patient room number: 2202. Study status: Routine. Heart rate: 79 bpm. Rhythm: Normal sinus rhythm. Findings Left ventricle: The cavity size is normal. Wall thickness is mildly increased. Systolic function is at the lower limits of normal. The estimated ejection fraction is 50-55%. Wall motion is normal; there are no regional wall motion abnormalities. The tissue Doppler parameters are abnormal. Left PATIENT NAME: MINDY CARTER ventricular diastolic function parameters are indeterminate. Right ventricle: Estimated TAPSE is 1.0 cm. The cavity size is mildly dilated. Systolic function is moderately reduced. Systolic pressure is mildly increased. Left atrium: The atrium is normal in size. Right atrium: The atrium is normal in size. Aorta: Aortic root: The root is normal-sized. Aortic valve: The valve is trileaflet. There is thickening, consistent with sclerosis. There is no evidence of stenosis. There is no regurgitation. Mitral valve: The annulus is moderately calcified. The findings are consistent with mild to moderate stenosis. There is mild regurgitation. Tricuspid valve: Estimated right ventricular systolic pressure is 35 mmHg. The valve is structurally normal. There is mild-moderate regurgitation. Pulmonic valve: There is no regurgitation. Pericardium: There is no pericardial effusion. Systemic veins: Inferior vena cava: The IVC is normal-sized. Respirophasic diameter changes are blunted (< 50%). Measurements Left ventricle Value Ref 06/13/2023 IVS, ED, LAX 1.7 cm 0.6 - 1.0 CHOCO, LAX 3.2 cm 4.2 - 5.8 4.9 ESD, LAX 2.1 cm 2.5 - 4.0 3.1 FS, LAX 33 % 25 - 43 37 CHOCO major ax, A2C 6.9 cm --------- FLORENCIO, A2C 26.9 cm 2 --------- LESTER, A2C 17.2 cm 2 --------- IVS, ED 0.9 cm 0.6 - 1.0 0.9 PW, ED 1.1 cm 0.6 - 1.0 1.0 IVS/PW, ED 0.82 --------- 0.92 EF 64 % 52 - 72 67 EF, MM on 2D Teich. 71 % >=55 E', lat khadar, TDI 4.0 cm/sec >=10.0 E/e', lat khadar, TDI 43 <=13 E', med khadar, TDI 4.3 cm/sec >=7.0 E/e', med khadar, TDI 43 --------- E', avg, TDI 4.1 cm/sec --------- E/e', avg, TDI 44 <=14 Right ventricle Value Ref 06/13/2023 CHOCO, LAX 3.4 cm --------- TAPSE, MM 1.0 cm >=1.7 Left atrium Value Ref 06/13/2023 Vol/bsa, S 24 ml/m 2 16 - 34 Vol/bsa, ES, 1-p A4C 20 ml/m 2 12 - 37 Right atrium Value Ref 06/13/2023 Area, ES, A4C 16 cm 2 10 - 18 PATIENT NAME: MINDY CARTER Mitral valve Value Ref 06/13/2023 Mean v, D 1.15 m/sec --------- Peak E 1.83 m/sec --------- Peak A 1.46 m/sec --------- VTI leaflet coapt 49.1 cm --------- Decel time 275 ms --------- PHT 87 ms --------- Mean grad, D 6 mm Hg --------- Peak grad, D 13.4 mm Hg --------- Peak E/A ratio 1.25 --------- E-VTI 49.1 cm --------- A-VTI 49.1 cm --------- VTI E/A 1.0 --------- MVA, PHT 2.5 cm 2 --------- Tricuspid valve Value Ref 06/13/2023 TR peak v 2.6 m/sec <=2.8 2.8 Peak RV-RA grad, S 27 mm Hg --------- 32 Inferior vena cava Value Ref 06/13/2023 Diam 1.7 cm <=2.1 Conclusions Summary: 1. Left ventricle: The cavity size is normal. Wall thickness is mildly increased. Systolic function is at the lower limits of normal. The estimated ejection fraction is 50-55%. Wall motion is normal; there are no regional wall motion abnormalities. Left ventricular diastolic function parameters are indeterminate. 2. Right ventricle: Estimated TAPSE is 1.0 cm. The cavity size is mildly dilated. Systolic function is moderately reduced. Systolic pressure is mildly increased. The end-diastolic diameter is 3.4 cm. 3. Aortic valve: There is thickening, consistent with sclerosis. 4. Mitral valve: The annulus is moderately calcified. The findings are consistent with mild to moderate stenosis. There is mild regurgitation. The mean diastolic gradient is 6 mm Hg. 5. Tricuspid valve: Estimated right ventricular systolic pressure is 35 mmHg. There is mild-moderate regurgitation. Electronically signed by Clayton Nathan MD 06/14/2023 18:24 at 1824 PATIENT NAME: MINDY CARTER [facility] 2023-06-14 17:52:00 [facility] Cardiology Progress Note REPORT#:[id number] REPORT STATUS: Signed REPORT INITIALIZATION DATE:06/14/23 TIME: 1751 PATIENT: MINDY CARTER UNIT #: [id number] ROOM/BED: [place] [address] : 54 AGE: 67 SEX: M ATTEND: Kimmie Bacon MD ADM AUTHOR: Clayton Nathan MD REPT SERVICE DT/TIME: 06/14/23 175 * ALL edits or amendments must be made on the electronic/computer document * Subjective Free Text Subj Notes Free Text Subj Notes: Cardiology progress note Date of service: 06/14/2023 Chief complaint/reason for consult: NSTEMI Patient seen and examined, chart reviewed, questions/concerns addressed with RN. Current medication and vitals reviewed. HPI and interval Hx: Underwent CABG and left atrial appendage amputation. Creatinine increasing. Subjective: No chest pain today Objective: Vital Signs Date Temp Pulse Resp B/P B/P Mean Pulse Ox FiO2 06/12-06/13 97.6-98.8 73-79 23-38 95-125/52-95 67-98 92-98 60 GEN: Alert and cooperative, no acute distress. HEENT: NC/AT, EOMI CARD: RRR, normal S1/S2 LUNGS: CTA w/o added sounds, GBAE. Assessment, Impression and medical decision making: -NSTEMI -Acute on chronic diastolic congestive heart -Morbid obesity -Hypertension, hyperlipidemia, type 2 diabetes mellitus -NIYA Plan/recommendation: -Status post CABG and left atrial pended amputation -NIYA noted nephrology on board -Continue with aspirin Plavix, no statin due to liver cirrhosis, low-dose beta- blockers. at 1757 RPT #:[id number] END OF REPORT [facility] 2023-06-14 15:21:00 [facility] Cardiothoracic Surgery Prog REPORT#:[id number] REPORT STATUS: Signed REPORT INITIALIZATION DATE:06/14/23 TIME: 1520 PATIENT: MINDY CARTER UNIT #: [id number] ROOM/BED: [place] [address] : 54 AGE: 67 SEX: M ATTEND: Kimmie Bacon MD ADM AUTHOR: Johnna Pablo REPT SERVICE DT/TIME: 06/14/23 1521 * ALL edits or amendments must be made on the electronic/computer document * General Post-op: day 3 Status post: 06/11/23 CABG x 3 (COSTA-LAD, SVG-Diag, SVG-OM) EVH (RGSV) MATHIEU PP Subjective Chief complaint: Postop cabg Review of Systems Constitutional: Reports: fatigue. Skin: Denies: abrasion, bruising, contusion. Allergy/Immun: Denies: allergic reaction, anaphylaxis, hives. Respiratory: Denies: HERRING (dyspnea on exertion). Cardiovascular: Denies: chest pain, palpitations. Heme: Denies: adenopathy, bleeding, bruising. Endocrine: Denies: cold intolerance, heat intolerance, polydipsia. Neuro: Denies: confusion, dizziness, seizure, syncope. All systems rev neg: except as marked Objective General VS/I O Last Documented: Result Date Time Pulse Ox 96 06/13 1129 O2 Delivery High flow nasal cannula 06/13 1129 O2 Flow Rate 11 06/13 1129 B/P 112/58 06/13 0413 B/P Mean 74 06/13 0413 Pulse 79 06/13 0413 Resp 23 06/13 0413 FiO2 60 06/13 0314 Temp 97.6 06/13 1999 24 hour I O ending at 0700: 06/13 0700 06/12 1900 Intake Total 451.60 683.00 Output Total 1250 470 Balance -798.40 213.00 Intake, IV 401.60 408.00 Intake, Oral 50 275 Output, Chest 190 220 Tube Drainage Output, Urine 1060 250 Patient 111.9 kg Weight Weight Standing scale Measurement Method PATIENT WEIGHT: Weight (lb): 246 Weight (oz): 11.16 Weight (kg): 111.900 Physical Exam General appearance: alert, awake, oriented HEENT: anicteric, mucosal membranes moist, pupils reactive to light Neck: full range of motion, non-tender Cardiovascular: normal heart sounds, regular rate rhythm Respiratory: aerating well, symmetric expansion Abdomen: soft, non-tender Genitourinary: marques Extremities: dry, moves all Musculoskeletal: no muscle spasm Skin: dry, intact Psychiatry: normal affect, normal mood Quality: Trauma Gen Surg Advanced Care Plan 65 or Older Discussed with: patient Discussion included: living will, power of defense attorney, code status Current Medications Current medication review: I attest that the foregoing medication list in the medical record is true, accurate, and complete to the best of my knowledge. VTE Prophylaxis - General VTE prophylaxis initiated: yes Diagnosis, Assessment Plan Hospital course to date: This is a 67-year-old gentleman with a past medical history of hypertension, hyperlipidemia, diabetes, neuropathy, alcohol use, liver cirrhosis, kidney disease, syncope who came to the hospital with shortness of breath and chest tightness for 2 days. Patient describes significant orthopnea and increasing edema in bilateral lower extremities that brought the patient to the hospital. Initial workup positive for mildly elevated troponin and elevated BNP and was diagnosed with NSTEMI and CHF exacerbation with acute hypoxic respiratory failure. Patient then underwent cardiac catheterization for elevated troponin. CV surgery was consulted for multivessel coronary artery disease found on angiogram. 1. multivessel disease -Patient underwent cardiac angiogram: Left main-proximal to mid 60 to 70% stenosis LAD-ostial LAD 90% stenosis Left circumflex-patent RCA-mild 30 to 40% mid stenosis EF 55 to 60% Wall motion is normal, grade 1 diastolic dysfunction, normal systolic function. Mitral valve: Moderately calcified with leaflet thickening. Moderate stenosis. Mild regurgitation. Aortic valve: Thickening and sclerosis 2. Liver disease -Patient recently diagnosed. Patient does not live local to [place]. Will consult gastroenterology to see patient. -EtOH cessation 3. Chronic kidney disease -Patient does not live local to [place]. Will consult nephrology to see patient. Patient will be presented at complex cardiology conference on Wednesday. Further recommendations to follow. 06/04/23 Patient in stable condition Labs and imaging reviewed Case presented at complex cardiology conference this morning and the team deemed patient will be best be suited with CABG. Preop workup ongoing Timing of surgery pending Plan of care discussed with patient and family. All questions were answered. 06/05/23 Patient doing well, denies chest pain Labs reviewed Pre op workup ongoing, pending vein mapping and carotid duplex On 4l nasal cannula, wean off oxygen as tolerated Incentive spirometer teaching Cardiac diet OOB to chair, ambulate Plan of care discussed with patient, all questions were answered. 06/06/23 Patient in stable condition Denies chest pain Wean off oxygen Encourage I-S use and deep breathing Tentatively plan for CABG in the upcoming week Plan of care discussed with patient, all questions were answered. 06/07/23 Patient seen and examined, denies chest pain Labs reviewed I-S use encourage, wean off oxygen as tolerated, on 2 L nasal cannula Tolerating diet Out of bed in chair, PT OT Timing of surgery pending Plan of care discussed with the patient, all questions were answered 06/08/23 Patient in stable condition Labs reviewed On room air, encourage I-S use Preop workup completed I will tentatively schedule him for surgery on Wednesday Plan of care discussed with patient, all questions were answered 06/09/23 Patient in stable condition Labs reviewed On room air, encourage I-S use Preop workup completed I will tentatively schedule him for surgery on Wednesday Plan of care discussed with patient, all questions were answered 06/10/23 Patient is stable condition, denies chest pain On room air Preop workup completed Plan for surgery on Wednesday-CABG and possible mitral valve I have discussed with the patient the operation, risk involved, calculated STS risk score, benefits, alternatives, and complicated. Patient acknowledges understanding and is willing to proceed. 06/11/23 CABG x 3 (COSTA-LAD, SVG-Diag, SVG-OM) EVH (RGSV) ALAA PP 06/12/23 POD 1 AAO x 3 Respiratory: on 10 L NC, wean as tolerated. Encourage IS. CT in place 325/196, leave in place, monitor outputs. Cardiac: Sinus rhythm. on levo 5, epi 2, Milrinone. GI: advance diet as tolerated. continue Bowel regimen. : Marques in place. Patient walked unit with PT DC Tylenol due to liver disease Patient was seen and examined at [facility]. Plan of care discussed with multidisciplinary team 06/13/23 POD 2 AAO x 3 Respiratory: on Bipap Encourage IS. Cardiac: Sinus rhythm. Pacing wires on standby, episode of hypotension, on levo @ 6, no response to dopamine for urine output GI: advance diet as tolerated. continue Bowel regimen. : Marques in place. Low urine output, start Lasix drip, vasopressin Plan to start Lasix drip. If no improvement in renal perfusion, patient will need CRRT. Patient was seen and examined at [facility]. Plan of care discussed with multidisciplinary team Nephrology following. Appreciate input Continue supportive care, 06/14/23 POD 3 AAOx3 Respiratory: Teleflex 60% Cardiac: Sinus rhythm, pacing wires on standby, levo at 2, vaso turned off this a.m. Continues on Lasix drip Urine output 1100 Chest tube drainage Abdominal ultrasound Evaluation limited by overlying bandage. Cirrhotic liver morphology. Cholelithiasis and distended gallbladder without sonographic features of acute cholecystitis. Will obtain bedside echo. Patient was seen and examined Dr. Martel. Continue supportive care Plan of care discussed with multidisciplinary team. Consultants: cardiology, cardiovascular surgery at 1525 at [phone] RPT #:[id number] END OF REPORT [facility] 2023-06-14 12:37:00 [facility] ([facility]) Gastroenterology Progress Note REPORT#:[id number] REPORT STATUS: Signed REPORT INITIALIZATION DATE:06/14/23 TIME: 1236 PATIENT: MINDY CARTER UNIT #: [id number] ROOM/BED: [place] [address] : 54 AGE: 67 SEX: M ATTEND: Kimmie Bacon MD ADM AUTHOR: Farideh Harris REPT SERVICE DT/TIME: 06/14/23 1237 * ALL edits or amendments must be made on the electronic/computer document * Farideh Harris 06/14/23 1237: Subjective Patient reports: Yes: passing gas. No: abdominal pain, bowel movement, nausea, vomiting. Nursing reports: No: black stools, rectal bleeding. Review of Systems Constitutional: Denies: chills, fever. Respiratory: Denies: SOB. Cardiovascular: Denies: chest pain. Objective General VS/I O: Last Documented: Result Date Time Pulse Ox 98 06/13 0755 O2 Delivery High flow nasal cannula 06/13 0755 O2 Flow Rate 11 06/13 0755 B/P 112/58 06/13 0413 B/P Mean 74 06/13 0413 Pulse 79 06/13 0413 Resp 23 06/13 0413 FiO2 60 06/13 0314 Temp 36.4 06/13 1999 24 hour I O ending at 0700: 06/13 0700 06/12 1900 Intake Total 451.60 683.00 Output Total 1250 470 Balance -798.40 213.00 Intake, IV 401.60 408.00 Intake, Oral 50 275 Output, Chest 190 220 Tube Drainage Output, Urine 1060 250 Patient 111.9 kg Weight Weight Standing scale Measurement Method PATIENT WEIGHT: Weight (lb): 246 Weight (oz): 11.16 Weight (kg): 111.900 Medications: Active Meds + DC'd Last 24 Hrs Insulin Glargine (Semglee) 40 UNIT BEDTIME SUBQ Ipratropium [place] (ATROVENT) 500 MCG RTQ2H PRN PRN INH Insulin Glargine (Semglee) 10 UNIT ONCE ONE SUBQ (DC) Fentanyl Citrate (SUBLIMAZE) 100 MCG ASDIR PRN IV (DC) Flumazenil (ROMAZICON) 0.2 MG ASDIR PRN IV (DC) Midazolam HCl (VERSED) 5 MG ASDIR PRN IV (DC) Naloxone HCl (NARCAN) 0.4 MG ASDIR PRN IV (DC) Cyanocobalamin (Vitamin B-12 500 mcg tab) 500 MCG DAILY PO Ferrous Sulfate (FERROUS SULFATE) 325 MG DAILY PO Insulin Human Regular (HUMAN INSULIN REG) 10 UNITS ONCE ONE IV (DC) Albuterol Sulfate (ALBUTEROL SULFATE) 2.5 MG RTONCE ONE NEB (DC) Calcium Gluconate (Calcium Gluconate 1 GM/NS 50 mL (B2)) 50 ML STAT STA IV (DC) Insulin Human Regular (HUMAN INSULIN REG) 10 UNITS STAT STA IV (DC) Bisacodyl (DULCOLAX) 10 MG ONCE PRN RECTAL Magnesium Hydroxide (MILK OF MAGNESIA) 30 ML ONCE PRN PO Furosemide (LASIX) 240 MG Q24H IV (CKD) Sodium Chloride (SODIUM CHLORIDE 0.9%) 24 ML Vasopressin (VASOSTRICT 20 Unit/NS 100ML) 100 ML ASDIR IV (CKD) Dopamine HCl/Dextrose (DOPamine 400MG/D5W 250ML) 250 ML ASDIR IV Insulin Glargine (Semglee) 30 UNIT BEDTIME SUBQ (DC) Epinephrine (ADRENALIN CHLORIDE) 4 MG ASDIR IV Sodium Chloride (SODIUM CHLORIDE 0.9%) 246 ML Miscellaneous Information (PHARMACY TO DOSE/EVALUATE) 1 EACH ASDIR MISC (DC) Melatonin (Melatonin) 6 MG BEDTIME PRN PO Clopidogrel Bisulfate (Plavix) 75 MG DAILY PO Polyethylene Glycol (MIRALAX) 17 GM DAILY PO Pantoprazole (PROTONIX) 40 MG DAILY@0600 PO Milrinone Lactate/Dextrose (MILRINONE 20MG/D5W 100ML) 100 ML TITRATE IV (CKD) Aspirin (ASPIRIN) 81 MG DAILY PO Amiodarone HCl (CORDARONE) 200 MG TID PO Docusate Sodium (COLACE) 100 MG BID PO Gabapentin (NEURONTIN) 200 MG BID PO Metoprolol Tartrate (LOPRESSOR) 12.5 MG Q12HR PO Mupirocin (BACTROBAN 2% 22 GM OINTMENT) 1 APPLIC BID NASAL Sennosides (Senna Lax 8.6 MG TABLET) 17.2 MG BEDTIME PO Ipratropium [place] (ATROVENT) 500 MCG RTQ4H INH Calcium Chloride (CALCIUM CHLORIDE) 1 GM ASDIR PRN IV Dextrose/Water (DEXTROSE 10% IN WATER) 125 ML ASDIR PRN IV (CKD) Dextrose/Water (DEXTROSE 10% IN WATER) 250 ML ASDIR PRN IV (CKD) Insulin Human Regular (HumuLIN R) 100 UNIT ASDIR IV (CKD) Sodium Chloride (SODIUM CHLORIDE 0.9%) 99 ML Magnesium Sulfate (MAGNESIUM SULFATE 4GM/SWFI 100ML) 100 ML ASDIR PRN IV Magnesium Sulfate (MAGNESIUM SULFATE 2GM/SWFI 50ML) 50 ML ASDIR PRN IV Magnesium Sulfate/Dextrose (MAGNESIUM SULFATE 1GM/D5W 100ML) 100 ML ASDIR PRN IV Nitroglycerin/Dextrose (NITROGLYCERIN 50,000MCG/D5W 250ML) 250 ML ASDIR IV Norepinephrine Bitartrate (NOREPINEPHRINE 8 MG/NS 250 ML) 250 ML TITRATE IV Ondansetron HCl (ZOFRAN) 4 MG Q6H PRN PRN IV Oxycodone HCl (ROXICODONE) 5 MG Q4H PRN PRN PO Oxycodone HCl (ROXICODONE) 10 MG Q4H PRN PRN PO Potassium Chloride (KCL 20MEQ/SWFI 100ML) 100 ML ASDIR PRN IV Sodium Bicarbonate (SODIUM BICARBONATE) 50 MEQ ASDIR PRN IV Sodium Chloride (SODIUM CHLORIDE 0.9%) 1,000 ML .Q20H IV Sodium Chloride (SODIUM CHLORIDE 0.9%) 250 ML Q24H IV Lactulose (LACTULOSE) 10 GM DAILY PRN PRN PO Thiamine HCl (THIAMINE HCL) 100 MG DAILY PO Dietitian nutrition assessment The data set between the solid lines has been imported from the dietitian's assessment. BMI Calculated: 36.4 Nutrition related diagnosis: Nutrition diagnosis details: Nutrition problem: Increased nutrient needs Nutrition etiology: Acute illness Nutrition signs and symptoms: CARDIAC POST-OP Nutrition prescription: 1. CARDIAC CCD4 DIET 2. ENSURE MAX TID POST-OP 3. DIABETIC DIET EDUCATION PRIOR TO DC Dietitian name: Anju Armendariz, RD, LD Assessment completed: 06/11/23 Physical Exam General appearance: respiratory support, alert, awake, conversational HEENT: atraumatic, normocephalic Neck: full range of motion Cardiovascular: normal S1/S2, regular rate rhythm Respiratory: symmetric expansion, no distress Abdomen: abnormal bowel sounds (hypoactive), distended (mildly), non-tender, soft, no guarding Extremities: moves all Musculoskeletal: normal inspection Neuro/BUSINESS AREA MANAGER: alert, normal speech Skin: dry, intact, normal color Psychiatry: normal affect, normal judgment/insight, normal mood Results Findings/Data: Laboratory Tests 06/14/23 0456: [Embedded Image Not Available] 06/14/23 0108: [Embedded Image Not Available] 06/13/232024: [Embedded Image Not Available] 06/13/23 1335: [Embedded Image Not Available] Laboratory Tests 06/136 2030 Blood Gas Puncture Site Art Line Art Line O2 Saturation (90 - 100 %) 97.5 95.6 ABG pH (7.35 - 7.45) 7.443 7.424 ABG pCO2 (35.0 - 45 mmHg) 27.0 *L 27.4 *L ABG pO2 (80 - 100.0 mmHg) 88.4 73.6 L ABG PO2/FiO2 Ratio (mm/Hg) 147.30 122.60 ABG HCO3 (22.0 - 26.0 MMOL/L) 18.6 L 18.0 L ABG Total CO2 19.4 18.9 ABG Base Excess (-4.0 - 4.0 MMOL/L) -5.7 L -6.5 L ABG Hematocrit (37.5 - 50.7 %) 32 L 36 L ABG Hemoglobin (12.5 - 16.9 G/DL) 11.0 L 12.1 L Sodium (134 - 147 mmol/L) 129 L 129 L Potassium (3.4 - 5.0 mmol/L) 4.3 5.7 H Chloride (100 - 108 mmol/L) 101 101 Ionized Calcium (1.12 - 1.32 MMOL/L) 1.18 1.12 Lactic Acid (0.9 - 1.7 mmol/l) 1.5 1.2 Temperature (F) 97.7 97.6 O2 Delivery Device BiPAP BiPAP Vent Rate (/MIN) 18 18 FiO2 (%) 60.0 60.0 Laboratory Tests 06/13 06/13 06/13 06/13 06/13 0741 0458 0456 0358 0356 Chemistry Sodium (134 - 147 mEq/L) 131 L Potassium (3.4 - 5.0 mEq/L) 4.5 Chloride (100 - 108 mEq/L) 100 Carbon Dioxide (21 - 33 mEq/l) 18 L Anion Gap (0 - 20) 18 BUN (7 - 25 mg/dL) 52 H Creatinine (0.6 - 1.3 mg/dL) 2.5 H POC Creatinine (0.8 - 1.3 mg/dL) 2.4 H Glomerular Filtr Rate (80 - 90) 27.3 L Glucose (77 - 141 mg/dL) 238 H POC Glucose (70 - 110 MG/DL) 194 H 225 H 255 H POC Glucose (mg/dL) (70 - 110 MG/DL) 247 H Calcium (8.0 - 10.5 mg/dL) 8.8 Magnesium (1.6 - 2.6 mg/dL) 2.47 Total Bilirubin (0.0 - 1.0 mg/dL) 0.70 Direct Bilirubin (0.1 - 0.3 MG/DL) 0.40 H Indirect Bilirubin (MG/DL) 0.30 AST (8 - 34 IUnit/L) 371 H ALT (10 - 49 IUnit/L) 164 H Total Alk Phosphatase (20 - 125 IUnit/L) 101 Total Protein (6.4 - 8.2 g/dL) 6.1 L Albumin (3.4 - 5.0 g/dL) 3.10 L 06/13 06/13 06/12 06/12 06/12 0255 0108 2243 2030 2024 Chemistry Sodium (134 - 147 mEq/L) 129 L 129 L Potassium (3.4 - 5.0 mEq/L) 5.3 H 5.6 H Chloride (100 - 108 mEq/L) 99 L 100 Carbon Dioxide (21 - 33 mEq/l) 18 L 18 L Anion Gap (0 - 20) 17 17 BUN (7 - 25 mg/dL) 51 H 43 H Creatinine (0.6 - 1.3 mg/dL) 2.6 H 2.5 H POC Creatinine (0.8 - 1.3 mg/dL) 2.6 H Glomerular Filtr Rate (80 - 90) 26.1 L 27.3 L Glucose (77 - 141 mg/dL) 309 H 252 H POC Glucose (70 - 110 MG/DL) 313 H 239 H POC Glucose (mg/dL) (70 - 110 MG/DL) 258 H Calcium (8.0 - 10.5 mg/dL) 8.6 8.5 Ionized Calcium Leanne (1.09 - 1.30 MMOL/L) 1.16 1.08 L Magnesium (1.6 - 2.6 mg/dL) 2.40 2.42 06/12 1851 1655 1528 1347 Chemistry POC Glucose (70 - 110 MG/DL) 242 H 204 H 133 H 153 H 165 H 06/12 1335 Chemistry Sodium (134 - 147 mEq/L) 131 L Potassium (3.4 - 5.0 mEq/L) 5.0 Chloride (100 - 108 mEq/L) 102 Carbon Dioxide (21 - 33 mEq/l) 20 L Anion Gap (0 - 20) 14 BUN (7 - 25 mg/dL) 41 H Creatinine (0.6 - 1.3 mg/dL) 2.4 H Glomerular Filtr Rate (80 - 90) 28.7 L Glucose (77 - 141 mg/dL) 165 H Calcium (8.0 - 10.5 mg/dL) 9.7 Laboratory Tests 06/13 0456 Hematology WBC (4.5 - 11.0 x10 3/uL) 22.7 H RBC (4.00 - 5.60 x10 6/uL) 3.54 L Hgb (12.5 - 16.9 g/dL) 10.6 L Hct (37.5 - 50.7 %) 33.0 L MCV (81.0 - 99.0 fL) 93.2 MCH (27.0 - 33.0 pg) 29.9 MCHC (33.0 - 37.0 g/dL) 32.1 L RDW (11.5 - 14.5 %) 14.7 H Plt Count (150 - 400 x10 3/uL) 208 MPV (7.0 - 9.0 fL) 12.3 H Neut % (Auto) (56.0 - 77.0 %) 83.4 H Lymph % (Auto) (14.0 - 32.0 %) 5.3 L [place] % (Auto) (4.8 - 9.0 %) 9.8 H Eos % (Auto) (0.3 - 3.7 %) 0.1 L Baso % (Auto) (0.0 - 2.0 %) 0.2 Neut # (Auto) (2.0 - 7.6 x10 3/uL) 18.88 H Lymph # (Auto) (1.0 - 3.8 x10 3/uL) 1.21 [place] # (Auto) (0.1 - 0.8 x10 3/uL) 2.23 H Eos # (Auto) (0.0 - 0.2 x10 3/uL) 0.02 Baso # (Auto) (0.0 - 0.2 x10 3/uL) 0.05 Abs Immat Gran (auto) (0.00 - 0.03 x10 3/uL) 0.28 H Immature Gran % (0.0 - 2.0 %) 1.2 Nucleated RBC % (0 - 0 %) 0.2 H Nucleated RBCs # (Man) (0.0 - 0.1 x10 3/uL) 0.04 Radiology Data: Recent Impressions: RADIOLOGY - XR CHEST 1 V 06/13 0609 Report Impression - Status: SIGNED Entered: 06/14/2023 0937 IMPRESSION: A small left apical pneumothorax is now evident. The left chest tube is stable in position. Small right pleural effusion. Stable left pulmonary opacities. Impression By: [email or web address] Frandy Pimentel M.D. ULTRASOUND - US ABDOMEN COMPLETE 06/13 0941 Report Impression - Status: SIGNED Entered: 06/14/2023 1010 IMPRESSION: Evaluation limited by overlying bandage. Cirrhotic liver morphology. Cholelithiasis and distended gallbladder without sonographic features of acute cholecystitis. Impression By: LandyJNURIS Fry M.D. Results: labs reviewed, vital signs reviewed, US results reviewed, x-ray personally reviewed Diagnosis, Assessment Plan Problem List/A P: 1. Cirrhosis 2. Hepatitis C 3. Elevated LFTs 4. Alcohol dependence 5. CHF exacerbation Free Text A P: (06/03/2023) MELD score of 7, estimated 3-month mortality of 1.9% S/p CABG x 3, EVH, ALAA, PP, weaning off pressor. UOP improving. Some elevation in AST/ALT likely multifactorial as patient was recently started on amiodarone and cardiac status (low bp requiring pressor support). US reviewed. Patient denies any abdominal pain. at bedside. Recommendations: 1. Monitor LFTs; avoid further hepatotoxic medications 2. INR 1.1 3. Abdominal ultrasound revealed cirrhosis with splenomegaly, cholelithiasis, and nonspecific gallbladder wall thickening likely secondary to chronic liver disease as patient does not express abdominal pain at this time- repeat us shows similar findings 4. History of hepatitis C, PCR - not detected 5. Daily alcohol use, cont. MVI and thiamine; encouraged cessation 6. Agree with current bowel regimen; if no BM later today, consider dulc supp 7. Further recommendations may follow Consultants: cardiology, cardiovascular surgery Attestations Attestation needed: supervising physician Rigoberto Jarrell 06/14/231956: Attestations Physician Attestation Agree w/findings plan: Agree with the findings and plan as documented by RAHUL Tobias. at 1320 at 1956 RPT #:[id number] END OF REPORT [facility] 2023-06-14 10:27:00 [facility] ([facility]) Critical Care Progress Note REPORT#:[id number] REPORT STATUS: Signed REPORT INITIALIZATION DATE:06/14/23 TIME: 102 PATIENT: MINDY CARTER UNIT #: [id number] ROOM/BED: [place] [address] : 54 AGE: 67 SEX: M ATTEND: Kimmie Bacon MD ADM AUTHOR: Dora Resendez MD REPT SERVICE DT/TIME: 06/14/23 1027 * ALL edits or amendments must be made on the electronic/computer document * Subjective Chief complaint: CABG x 3 (COSTA-LAD, SVG-Diag, SVG-OM) EVH (RGSV) ALAA PP HPI: This is a 67-year-old male with a past medical history significant for cirrhosis , high blood pressure, hyperlipidemia, diabetes, history of alcohol use, and CKD stage II admitted to the hospital with shortness of breath NSTEMI, underwent cardiac cath showed multivessel CAD. Patient underwent CABG x 3 (COSTA-LAD, SVG- Diag, SVG-OM)today. Intraoperatively patient received 400 cc crystalloid, 570 Cell Saver. Urine output was 200 cc. On arrival to ICU patient was intubated on ventilatory support. He was on 5 of Levophed, 10 of epinephrine and 0.5 of milrinone. Comments: Improved overall, weaned off bipap to HFNC 10L/min. Lasix drip increased to 20mg /hr with good UOP. 1.1L Urine overnight. Levophed decreased to 2mcg/min. LFT increasing. He also feels better. Review of Systems All systems rev neg: except as marked Objective General VS/I O Last Documented: Result Date Time Pulse Ox 98 06/13 0755 O2 Delivery High flow nasal cannula 06/13 0755 O2 Flow Rate 11 06/13 0755 B/P 112/58 06/13 0413 B/P Mean 74 06/13 041 Pulse 79 06/13 0413 Resp 23 06/13 041 FiO2 60 06/13 0314 Temp 97.6 06/13 1999 24 hour I O ending at 0700: 06/13 0700 06/12 1900 Intake Total 451.60 683.00 Output Total 1250 470 Balance -798.40 213.00 Intake, IV 401.60 408.00 Intake, Oral 50 275 Output, Chest 190 220 Tube Drainage Output, Urine 1060 250 Patient 111.9 kg Weight Weight Standing scale Measurement Method PATIENT WEIGHT: Weight (lb): 246 Weight (oz): 11.16 Weight (kg): 111.900 Medications: Active Meds + DC'd Last 24 Hrs Insulin Glargine (Semglee) 40 UNIT BEDTIME SUBQ Ipratropium [place] (ATROVENT) 500 MCG RTQ2H PRN PRN INH Insulin Glargine (Semglee) 10 UNIT ONCE ONE SUBQ (DC) Fentanyl Citrate (SUBLIMAZE) 100 MCG ASDIR PRN IV (DC) Flumazenil (ROMAZICON) 0.2 MG ASDIR PRN IV (DC) Midazolam HCl (VERSED) 5 MG ASDIR PRN IV (DC) Naloxone HCl (NARCAN) 0.4 MG ASDIR PRN IV (DC) Cyanocobalamin (Vitamin B-12 500 mcg tab) 500 MCG DAILY PO Ferrous Sulfate (FERROUS SULFATE) 325 MG DAILY PO Insulin Human Regular (HUMAN INSULIN REG) 10 UNITS ONCE ONE IV (DC) Albuterol Sulfate (ALBUTEROL SULFATE) 2.5 MG RTONCE ONE NEB (DC) Calcium Gluconate (Calcium Gluconate 1 GM/NS 50 mL (B2)) 50 ML STAT STA IV (DC) Insulin Human Regular (HUMAN INSULIN REG) 10 UNITS STAT STA IV (DC) Bisacodyl (DULCOLAX) 10 MG ONCE PRN RECTAL Magnesium Hydroxide (MILK OF MAGNESIA) 30 ML ONCE PRN PO Metolazone (metOLazone) 10 MG ONCE ONE PO (DC) Furosemide (LASIX) 240 MG Q24H IV (CKD) Sodium Chloride (SODIUM CHLORIDE 0.9%) 24 ML Vasopressin (VASOSTRICT 20 Unit/NS 100ML) 100 ML ASDIR IV (CKD) Dopamine HCl/Dextrose (DOPamine 400MG/D5W 250ML) 250 ML ASDIR IV Insulin Glargine (Semglee) 30 UNIT BEDTIME SUBQ (DC) Epinephrine (ADRENALIN CHLORIDE) 4 MG ASDIR IV Sodium Chloride (SODIUM CHLORIDE 0.9%) 246 ML Miscellaneous Information (PHARMACY TO DOSE/EVALUATE) 1 EACH ASDIR MISC (DC) Melatonin (Melatonin) 6 MG BEDTIME PRN PO Clopidogrel Bisulfate (Plavix) 75 MG DAILY PO Polyethylene Glycol (MIRALAX) 17 GM DAILY PO Pantoprazole (PROTONIX) 40 MG DAILY@0600 PO Milrinone Lactate/Dextrose (MILRINONE 20MG/D5W 100ML) 100 ML TITRATE IV (CKD) Aspirin (ASPIRIN) 81 MG DAILY PO Amiodarone HCl (CORDARONE) 200 MG TID PO Docusate Sodium (COLACE) 100 MG BID PO Gabapentin (NEURONTIN) 200 MG BID PO Metoprolol Tartrate (LOPRESSOR) 12.5 MG Q12HR PO Mupirocin (BACTROBAN 2% 22 GM OINTMENT) 1 APPLIC BID NASAL Sennosides (Senna Lax 8.6 MG TABLET) 17.2 MG BEDTIME PO Ipratropium [place] (ATROVENT) 500 MCG RTQ4H INH Calcium Chloride (CALCIUM CHLORIDE) 1 GM ASDIR PRN IV Dextrose/Water (DEXTROSE 10% IN WATER) 125 ML ASDIR PRN IV (CKD) Dextrose/Water (DEXTROSE 10% IN WATER) 250 ML ASDIR PRN IV (CKD) Insulin Human Regular (HumuLIN R) 100 UNIT ASDIR IV (CKD) Sodium Chloride (SODIUM CHLORIDE 0.9%) 99 ML Magnesium Sulfate (MAGNESIUM SULFATE 4GM/SWFI 100ML) 100 ML ASDIR PRN IV Magnesium Sulfate (MAGNESIUM SULFATE 2GM/SWFI 50ML) 50 ML ASDIR PRN IV Magnesium Sulfate/Dextrose (MAGNESIUM SULFATE 1GM/D5W 100ML) 100 ML ASDIR PRN IV Nitroglycerin/Dextrose (NITROGLYCERIN 50,000MCG/D5W 250ML) 250 ML ASDIR IV Norepinephrine Bitartrate (NOREPINEPHRINE 8 MG/NS 250 ML) 250 ML TITRATE IV Ondansetron HCl (ZOFRAN) 4 MG Q6H PRN PRN IV Oxycodone HCl (ROXICODONE) 5 MG Q4H PRN PRN PO Oxycodone HCl (ROXICODONE) 10 MG Q4H PRN PRN PO Potassium Chloride (KCL 20MEQ/SWFI 100ML) 100 ML ASDIR PRN IV Sodium Bicarbonate (SODIUM BICARBONATE) 50 MEQ ASDIR PRN IV Sodium Chloride (SODIUM CHLORIDE 0.9%) 1,000 ML .Q20H IV Sodium Chloride (SODIUM CHLORIDE 0.9%) 250 ML Q24H IV Lactulose (LACTULOSE) 10 GM DAILY PRN PRN PO Thiamine HCl (THIAMINE HCL) 100 MG DAILY PO Physical Exam General appearance: alert, awake, oriented, no acute distress Head/eyes: atraumatic, clear cornea, EOMI Neck: RIJ CVL Cardiovascular: normal S1/S2 Respiratory: symmetric expansion Abdomen: soft, non-tender, no mass/organomegaly Extremities: edema (2+) Neuro/BUSINESS AREA MANAGER: alert, no motor deficits Results Findings/data: Laboratory Tests 06/13 06/12 06/12 0356 2031 1247 Blood Gas Puncture Site Art Line Art Line L Radial O2 Saturation (90 - 100 %) 97.5 95.6 96.8 ABG pH (7.35 - 7.45) 7.443 7.424 7.386 ABG pCO2 (35.0 - 45 mmHg) 27.0 *L 27.4 *L 29.9 *L ABG pO2 (80 - 100.0 mmHg) 88.4 73.6 L 88.5 ABG PO2/FiO2 Ratio (mm/Hg) 147.30 122.60 147.50 ABG HCO3 (22.0 - 26.0 MMOL/L) 18.6 L 18.0 L 17.9 *L ABG Total CO2 19.4 18.9 18.8 ABG Base Excess (-4.0 - 4.0 MMOL/L) -5.7 L -6.5 L -7.1 L ABG Hematocrit (37.5 - 50.7 %) 32 L 36 L 36 L ABG Hemoglobin (12.5 - 16.9 G/DL) 11.0 L 12.1 L 12.4 L Sodium (134 - 147 mmol/L) 129 L 129 L 129 L Potassium (3.4 - 5.0 mmol/L) 4.3 5.7 H 5.3 H Chloride (100 - 108 mmol/L) 101 101 103 Ionized Calcium (1.12 - 1.32 MMOL/L) 1.18 1.12 1.13 Lactic Acid (0.9 - 1.7 mmol/l) 1.5 1.2 1.1 Temperature (F) 97.7 97.6 O2 Delivery Device BiPAP BiPAP BiPAP Vent Rate (/MIN) 18 18 FiO2 (%) 60.0 60.0 60.0 Laboratory Tests 06/13 06/13 06/13 06/13 06/13 0458 0456 0358 0356 0255 Chemistry Sodium (134 - 147 mEq/L) 131 L Potassium (3.4 - 5.0 mEq/L) 4.5 Chloride (100 - 108 mEq/L) 100 Carbon Dioxide (21 - 33 mEq/l) 18 L Anion Gap (0 - 20) 18 BUN (7 - 25 mg/dL) 52 H Creatinine (0.6 - 1.3 mg/dL) 2.5 H POC Creatinine (0.8 - 1.3 mg/dL) 2.4 H Glomerular Filtr Rate (80 - 90) 27.3 L Glucose (77 - 141 mg/dL) 238 H POC Glucose (70 - 110 MG/DL) 225 H 255 H 313 H POC Glucose (mg/dL) (70 - 110 MG/DL) 247 H Calcium (8.0 - 10.5 mg/dL) 8.8 Magnesium (1.6 - 2.6 mg/dL) 2.47 Total Bilirubin (0.0 - 1.0 mg/dL) 0.70 Direct Bilirubin (0.1 - 0.3 MG/DL) 0.40 H Indirect Bilirubin (MG/DL) 0.30 AST (8 - 34 IUnit/L) 371 H ALT (10 - 49 IUnit/L) 164 H Total Alk Phosphatase (20 - 125 IUnit/L) 101 Total Protein (6.4 - 8.2 g/dL) 6.1 L Albumin (3.4 - 5.0 g/dL) 3.10 L 06/13 06/12 06/12 06/12 06/12 0108 2243 2030 2024 2012 Chemistry Sodium (134 - 147 mEq/L) 129 L 129 L Potassium (3.4 - 5.0 mEq/L) 5.3 H 5.6 H Chloride (100 - 108 mEq/L) 99 L 100 Carbon Dioxide (21 - 33 mEq/l) 18 L 18 L Anion Gap (0 - 20) 17 17 BUN (7 - 25 mg/dL) 51 H 43 H Creatinine (0.6 - 1.3 mg/dL) 2.6 H 2.5 H POC Creatinine (0.8 - 1.3 mg/dL) 2.6 H Glomerular Filtr Rate (80 - 90) 26.1 L 27.3 L Glucose (77 - 141 mg/dL) 309 H 252 H POC Glucose (70 - 110 MG/DL) 239 H 242 H POC Glucose (mg/dL) (70 - 110 MG/DL) 258 H Calcium (8.0 - 10.5 mg/dL) 8.6 8.5 Ionized Calcium Leanne (1.09 - 1.30 MMOL/L) 1.16 1.08 L Magnesium (1.6 - 2.6 mg/dL) 2.40 2.42 06/12 06/12 06/12 06/12 06/12 1851 1655 1528 1347 1335 Chemistry Sodium (134 - 147 mEq/L) 131 L Potassium (3.4 - 5.0 mEq/L) 5.0 Chloride (100 - 108 mEq/L) 102 Carbon Dioxide (21 - 33 mEq/l) 20 L Anion Gap (0 - 20) 14 BUN (7 - 25 mg/dL) 41 H Creatinine (0.6 - 1.3 mg/dL) 2.4 H Glomerular Filtr Rate (80 - 90) 28.7 L Glucose (77 - 141 mg/dL) 165 H POC Glucose (70 - 110 MG/DL) 204 H 133 H 153 H 165 H Calcium (8.0 - 10.5 mg/dL) 9.7 06/12 06/12 1247 1157 Chemistry POC Creatinine (0.8 - 1.3 mg/dL) 2.2 H POC Glucose (70 - 110 MG/DL) 181 H POC Glucose (mg/dL) (70 - 110 MG/DL) 171 H Laboratory Tests 06/13 0456 Hematology WBC (4.5 - 11.0 x10 3/uL) 22.7 H RBC (4.00 - 5.60 x10 6/uL) 3.54 L Hgb (12.5 - 16.9 g/dL) 10.6 L Hct (37.5 - 50.7 %) 33.0 L MCV (81.0 - 99.0 fL) 93.2 MCH (27.0 - 33.0 pg) 29.9 MCHC (33.0 - 37.0 g/dL) 32.1 L RDW (11.5 - 14.5 %) 14.7 H Plt Count (150 - 400 x10 3/uL) 208 MPV (7.0 - 9.0 fL) 12.3 H Neut % (Auto) (56.0 - 77.0 %) 83.4 H Lymph % (Auto) (14.0 - 32.0 %) 5.3 L [place] % (Auto) (4.8 - 9.0 %) 9.8 H Eos % (Auto) (0.3 - 3.7 %) 0.1 L Baso % (Auto) (0.0 - 2.0 %) 0.2 Neut # (Auto) (2.0 - 7.6 x10 3/uL) 18.88 H Lymph # (Auto) (1.0 - 3.8 x10 3/uL) 1.21 [place] # (Auto) (0.1 - 0.8 x10 3/uL) 2.23 H Eos # (Auto) (0.0 - 0.2 x10 3/uL) 0.02 Baso # (Auto) (0.0 - 0.2 x10 3/uL) 0.05 Abs Immat Gran (auto) (0.00 - 0.03 x10 3/uL) 0.28 H Immature Gran % (0.0 - 2.0 %) 1.2 Nucleated RBC % (0 - 0 %) 0.2 H Nucleated RBCs # (Man) (0.0 - 0.1 x10 3/uL) 0.04 Laboratory Tests 06/14/23 0456: [Embedded Image Not Available] 06/14/23 0108: [Embedded Image Not Available] 06/13/232024: [Embedded Image Not Available] 06/13/23 1335: [Embedded Image Not Available] Radiology data Recent Impressions: RADIOLOGY - XR CHEST 1 V 06/13 0609 Report Impression - Status: SIGNED Entered: 06/14/2023 0937 IMPRESSION: A small left apical pneumothorax is now evident. The left chest tube is stable in position. Small right pleural effusion. Stable left pulmonary opacities. Impression By: [email or web address] - Elio Pimentel M.D. ULTRASOUND - US ABDOMEN COMPLETE 06/13 0941 Report Impression - Status: SIGNED Entered: 06/14/2023 1010 IMPRESSION: Evaluation limited by overlying bandage. Cirrhotic liver morphology. Cholelithiasis and distended gallbladder without sonographic features of acute cholecystitis. Impression By: Osiel Fry M.D. Results: US results reviewed, x-ray personally reviewed Free Text Obj Notes Free Text Obj Notes: Middle-age male intubated on mechanical ventilation Pupil equal reactive to light Neck supple Chest with sternotomy dressing, [address] Heart S1-S2 Abdomen soft, could not appreciate bowel sounds Extremities no edema, right leg dressed BUSINESS AREA MANAGER sedated Diagnosis, Assessment Plan Free text A P: Multivessel CAD s/p CABG x 3 (COSTA-LAD, SVG-Diag, SVG-OM) ALAA Postoperative respiratory insufficiency following cardiac surgery Postoperative pain Shock Leukocytosis Liver cirrhosis EtOH dependence Increasing LFTs with underlying liver cirrhosis. Plan: BUSINESS AREA MANAGER: Awake and alert. No signs and symptoms of alcohol withdrawal. He received multivitamin during earlier days of admission. Cardiovascular: EF about 55 to 60% Improved BP and down to 2mcgs/min of levophed. Now off vasopressin and milrinone. Left pleural chest tube 180cc Mediastinal chest tube 20 cc. May D/C mediastinal CT after ambulation today. Respiratory: Now off bipap on HFNC 10L/min. GI: Cardiac diet. LFTs increased, u/s showing liver cirrhosis and nothing acute. Elevation multifactorial including shock and amiodarone. Hematology: Hemoglobin is stable. SCDs. Endocrine: Insulin for glucose control. Glucose levels still elevated. Increase Lantus to 40u daily and wean off insulin drip. ID: Perioperative prophylaxis Renal: NIYA might have plateued with Cr @ 2.5. Continue lasix drip now at 20mg/hr and metolazone. Full code Updated daughter on current plan of care Updated Mindy and his on current plan of care. Total critical care time excluding procedures was 40 minutes. Consultants: cardiology, cardiovascular surgery Quality: [facility] Crit Care VTE Prophylaxis VTE prophylaxis initiated: yes Current Medications Current medication review: I attest that the foregoing medication list in the medical record is true, accurate, and complete to the best of my knowledge. Advanced Care Plan 65 or Older Discussed with: patient Discussion included: living will, power of defense attorney, code status at [address] [place] [address] #:[phone] END OF REPORT [facility] 2023-06-14 09:31:00 [facility] ([facility]) Hospitalist Progress Note REPORT#:[id number] REPORT STATUS: Signed REPORT INITIALIZATION DATE:06/14/23 TIME: 930 PATIENT: MINDY CARTER UNIT #: [id number] ROOM/BED: [place] [address] : 54 AGE: 67 SEX: M ATTEND: Kimmie Bacon MD ADM AUTHOR: Kimmie Bacon MD REPT SERVICE DT/TIME: 06/14/23930 * ALL edits or amendments must be made on the electronic/computer document * Subjective Chief complaint: Complains of chest soreness, worsens with cough, off BiPAP, on 8 L oxygen via nasal cannula, on Lasix drip, of pressors, chest tube in place, LFTs worsened, GI on board HPI: This is a 67-year-old male with history of high blood pressure, hyperlipidemia, diabetes mellitus, syncope, neuropathy, alcohol use, liver cirrhosis, stage II CKD presents with shortness of breath that has been increasing since 2 days ago. Patient took extra dose of Aldactone and hydrochlorothiazide which did not help. Patient also reports chest tightness and is currently on 5 L of oxygen per nasal cannula. Patient says that he cannot lie down he gets short of breath when he lies down. He drinks whiskey about 3 shots a day. He has been having increasing edema in bilateral lower extremities. No headaches or dizziness. No other complaints elicited. Objective General VS/I O: Vital Signs: Date Time Temp Pulse Resp B/P B/P Pulse O2 O2 Flow FiO2 Mean Ox Delivery Rate 06/13 1129 96 High flow 11 nasal cannula 06/13 0755 98 High flow 11 nasal cannula 06/13 0700 Nasal 10 cannula 06/13 0413 79 23 112/58 74 97 06/13 0400 110/61 80 06/13 0400 79 25 106/56 72 97 06/13 0339 110/58 83 06/13 0339 79 28 120/57 75 97 06/13 0330 79 26 122/59 78 96 06/13 0314 75 96 60 06/13 0314 96 BiPAP 60 06/13 0300 118/56 76 06/13 0300 75 30 117/61 76 96 03/18 0230 114/64 83 03/18 0230 76 31 125/64 80 95 03/18 0200 108/66 81 03/18 0200 76 30 122/62 78 94 03/18 0133 77 28 125/62 79 95 03/18 0131 117/62 82 03/18 0131 77 28 123/62 79 95 03/18 0130 77 31 123/63 79 95 03/18 0100 110/76 89 03/18 0100 78 37 112/73 89 94 03/18 0030 112/65 84 03/18 0030 78 36 102/95 98 94 03/18 0004 123/69 86 03/18 0004 77 31 103/60 75 94 03/18 0000 78 33 99/60 74 92 03/17 2330 111/68 83 03/17 2330 78 27 112/58 74 94 03/17 2318 77 95 60 03/17 2300 108/62 80 03/17 2300 78 29 108/59 74 94 03/17 2230 98/65 76 03/17 2230 79 29 95/60 73 94 03/17 2200 105/65 81 03/17 2200 79 30 100/59 73 94 03/17 2130 99/62 76 03/17 2130 74 38 99/54 69 94 03/17 2100 107/59 78 03/17 2100 75 26 107/56 72 94 03/17 2030 75 36 111/74 88 95 03/17 2013 73 95 60 /17 2013 95 BiPAP 60 /17 2000 97.6 /17 2000 109/66 79 03/17 2000 73 28 104/52 67 95 03/17 1942 BiPAP 12 60 03/17 1930 111/64 81 03/17 1930 74 35 109/53 69 94 03/17 1900 107/65 82 03/17 1900 74 27 106/52 68 95 03/17 1800 75 28 111/55 71 94 03/17 1730 112/64 80 03/17 1730 78 33 116/59 75 93 03/17 1700 79 33 106/56 70 91 03/17 1640 99 60 03/17 1630 101/68 79 03/17 1630 76 22 105/53 67 96 03/17 1600 109/65 81 03/17 1600 76 22 106/53 68 96 24 hour I O ending at 0700: 06/13 0700 06/12 1900 Intake Total 451.60 683.00 Output Total 1250 470 Balance -798.40 213.00 Intake, IV 401.60 408.00 Intake, Oral 50 275 Output, Chest 190 220 Tube Drainage Output, Urine 1060 250 Patient 111.9 kg Weight Weight Standing scale Measurement Method PATIENT WEIGHT: Weight (lb): 246 Weight (oz): 11.16 Weight (kg): 111.900 Medications: Active Meds + DC'd Last 24 Hrs Insulin Glargine (Semglee) 40 UNIT BEDTIME SUBQ Ipratropium [place] (ATROVENT) 500 MCG RTQ2H PRN PRN INH Bisacodyl (DULCOLAX) 10 MG ONCE ONE RECTAL Insulin Glargine (Semglee) 10 UNIT ONCE ONE SUBQ (DC) Fentanyl Citrate (SUBLIMAZE) 100 MCG ASDIR PRN IV (DC) Flumazenil (ROMAZICON) 0.2 MG ASDIR PRN IV (DC) Midazolam HCl (VERSED) 5 MG ASDIR PRN IV (DC) Naloxone HCl (NARCAN) 0.4 MG ASDIR PRN IV (DC) Cyanocobalamin (Vitamin B-12 500 mcg tab) 500 MCG DAILY PO Ferrous Sulfate (FERROUS SULFATE) 325 MG DAILY PO Insulin Human Regular (HUMAN INSULIN REG) 10 UNITS ONCE ONE IV (DC) Albuterol Sulfate (ALBUTEROL SULFATE) 2.5 MG RTONCE ONE NEB (DC) Calcium Gluconate (Calcium Gluconate 1 GM/NS 50 mL (B2)) 50 ML STAT STA IV (DC) Insulin Human Regular (HUMAN INSULIN REG) 10 UNITS STAT STA IV (DC) Bisacodyl (DULCOLAX) 10 MG ONCE PRN RECTAL Magnesium Hydroxide (MILK OF MAGNESIA) 30 ML ONCE PRN PO Furosemide (LASIX) 240 MG Q24H IV (CKD) Sodium Chloride (SODIUM CHLORIDE 0.9%) 24 ML Vasopressin (VASOSTRICT 20 Unit/NS 100ML) 100 ML ASDIR IV (CKD) Dopamine HCl/Dextrose (DOPamine 400MG/D5W 250ML) 250 ML ASDIR IV Insulin Glargine (Semglee) 30 UNIT BEDTIME SUBQ (DC) Epinephrine (ADRENALIN CHLORIDE) 4 MG ASDIR IV Sodium Chloride (SODIUM CHLORIDE 0.9%) 246 ML Miscellaneous Information (PHARMACY TO DOSE/EVALUATE) 1 EACH ASDIR MISC (DC) Melatonin (Melatonin) 6 MG BEDTIME PRN PO Clopidogrel Bisulfate (Plavix) 75 MG DAILY PO Polyethylene Glycol (MIRALAX) 17 GM DAILY PO Pantoprazole (PROTONIX) 40 MG DAILY@0600 PO Milrinone Lactate/Dextrose (MILRINONE 20MG/D5W 100ML) 100 ML TITRATE IV (CKD) Aspirin (ASPIRIN) 81 MG DAILY PO Amiodarone HCl (CORDARONE) 200 MG TID PO Docusate Sodium (COLACE) 100 MG BID PO Gabapentin (NEURONTIN) 200 MG BID PO Metoprolol Tartrate (LOPRESSOR) 12.5 MG Q12HR PO Mupirocin (BACTROBAN 2% 22 GM OINTMENT) 1 APPLIC BID NASAL Sennosides (Senna Lax 8.6 MG TABLET) 17.2 MG BEDTIME PO Ipratropium [place] (ATROVENT) 500 MCG RTQ4H INH Calcium Chloride (CALCIUM CHLORIDE) 1 GM ASDIR PRN IV Dextrose/Water (DEXTROSE 10% IN WATER) 125 ML ASDIR PRN IV (CKD) Dextrose/Water (DEXTROSE 10% IN WATER) 250 ML ASDIR PRN IV (CKD) Insulin Human Regular (HumuLIN R) 100 UNIT ASDIR IV (CKD) Sodium Chloride (SODIUM CHLORIDE 0.9%) 99 ML Magnesium Sulfate (MAGNESIUM SULFATE 4GM/SWFI 100ML) 100 ML ASDIR PRN IV Magnesium Sulfate (MAGNESIUM SULFATE 2GM/SWFI 50ML) 50 ML ASDIR PRN IV Magnesium Sulfate/Dextrose (MAGNESIUM SULFATE 1GM/D5W 100ML) 100 ML ASDIR PRN IV Nitroglycerin/Dextrose (NITROGLYCERIN 50,000MCG/D5W 250ML) 250 ML ASDIR IV Norepinephrine Bitartrate (NOREPINEPHRINE 8 MG/NS 250 ML) 250 ML TITRATE IV Ondansetron HCl (ZOFRAN) 4 MG Q6H PRN PRN IV Oxycodone HCl (ROXICODONE) 5 MG Q4H PRN PRN PO Oxycodone HCl (ROXICODONE) 10 MG Q4H PRN PRN PO Potassium Chloride (KCL 20MEQ/SWFI 100ML) 100 ML ASDIR PRN IV Sodium Bicarbonate (SODIUM BICARBONATE) 50 MEQ ASDIR PRN IV Sodium Chloride (SODIUM CHLORIDE 0.9%) 1,000 ML .Q20H IV Sodium Chloride (SODIUM CHLORIDE 0.9%) 250 ML Q24H IV Lactulose (LACTULOSE) 10 GM DAILY PRN PRN PO Thiamine HCl (THIAMINE HCL) 100 MG DAILY PO Physical Exam General appearance: alert, awake, oriented Head/Eyes: atraumatic, clear cornea, EOMI, PERRLA ENT: moist mucosal membranes Neck: normal thyroid, supple/no meningismus Cardiovascular: normal heart sounds, regular rate rhythm, no gallop, no murmur , no rub Respiratory: chest tube, hypoxia, on oxygen, aerating well, clear to auscultation Abdomen: non-tender, normal bowel sounds, soft Extremities: edema, no clubbing, no cyanosis Neuro/BUSINESS AREA MANAGER: alert, oriented X 3, CNII-XII intact Skin: dry, intact, no rash Psychiatry: normal affect Results Findings/Data: Laboratory Tests 06/13 Blood Gas Puncture Site Art Line Art Line O2 Saturation (90 - 100 %) 97.5 95.6 ABG pH (7.35 - 7.45) 7.443 7.424 ABG pCO2 (35.0 - 45 mmHg) 27.0 *L 27.4 *L ABG pO2 (80 - 100.0 mmHg) 88.4 73.6 L ABG PO2/FiO2 Ratio (mm/Hg) 147.30 122.60 ABG HCO3 (22.0 - 26.0 MMOL/L) 18.6 L 18.0 L ABG Total CO2 19.4 18.9 ABG Base Excess (-4.0 - 4.0 MMOL/L) -5.7 L -6.5 L ABG Hematocrit (37.5 - 50.7 %) 32 L 36 L ABG Hemoglobin (12.5 - 16.9 G/DL) 11.0 L 12.1 L Sodium (134 - 147 mmol/L) 129 L 129 L Potassium (3.4 - 5.0 mmol/L) 4.3 5.7 H Chloride (100 - 108 mmol/L) 101 101 Ionized Calcium (1.12 - 1.32 MMOL/L) 1.18 1.12 Lactic Acid (0.9 - 1.7 mmol/l) 1.5 1.2 Temperature (F) 97.7 97.6 O2 Delivery Device BiPAP BiPAP Vent Rate (/MIN) 18 18 FiO2 (%) 60.0 60.0 Laboratory Tests 06/13 06/13 06/13 06/13 1223 0741 0458 5366 Chemistry Sodium (134 - 147 mEq/L) 129 L 131 L Potassium (3.4 - 5.0 mEq/L) 4.5 4.5 Chloride (100 - 108 mEq/L) 99 L 100 Carbon Dioxide (21 - 33 mEq/l) 20 L 18 L Anion Gap (0 - 20) 15 18 BUN (7 - 25 mg/dL) 64 H 52 H Creatinine (0.6 - 1.3 mg/dL) 2.6 H 2.5 H Glomerular Filtr Rate (80 - 90) 26.1 L 27.3 L Glucose (77 - 141 mg/dL) 322 H 238 H POC Glucose (70 - 110 MG/DL) 194 H 225 H Calcium (8.0 - 10.5 mg/dL) 8.5 8.8 Ionized Calcium Leanne (1.09 - 1.30 MMOL/L) 1.15 Magnesium (1.6 - 2.6 mg/dL) 2.33 2.47 Total Bilirubin (0.0 - 1.0 mg/dL) 0.70 Direct Bilirubin (0.1 - 0.3 MG/DL) 0.40 H Indirect Bilirubin (MG/DL) 0.30 AST (8 - 34 IUnit/L) 371 H ALT (10 - 49 IUnit/L) 164 H Total Alk Phosphatase (20 - 125 IUnit/L) 101 Total Protein (6.4 - 8.2 g/dL) 6.1 L Albumin (3.4 - 5.0 g/dL) 3.10 L 06/13 06/13 06/13 06/13 06/12 0358 0356 0255 0108 2243 Chemistry Sodium (134 - 147 mEq/L) 129 L Potassium (3.4 - 5.0 mEq/L) 5.3 H Chloride (100 - 108 mEq/L) 99 L Carbon Dioxide (21 - 33 mEq/l) 18 L Anion Gap (0 - 20) 17 BUN (7 - 25 mg/dL) 51 H Creatinine (0.6 - 1.3 mg/dL) 2.6 H POC Creatinine (0.8 - 1.3 mg/dL) 2.4 H Glomerular Filtr Rate (80 - 90) 26.1 L Glucose (77 - 141 mg/dL) 309 H POC Glucose (70 - 110 MG/DL) 255 H 313 H 239 H POC Glucose (mg/dL) (70 - 110 MG/DL) 247 H Calcium (8.0 - 10.5 mg/dL) 8.6 Ionized Calcium Leanne (1.09 - 1.30 1.16 MMOL/L) Magnesium (1.6 - 2.6 mg/dL) 2.40 06/12 165 Chemistry Sodium (134 - 147 mEq/L) 129 L Potassium (3.4 - 5.0 mEq/L) 5.6 H Chloride (100 - 108 mEq/L) 100 Carbon Dioxide (21 - 33 mEq/l) 18 L Anion Gap (0 - 20) 17 BUN (7 - 25 mg/dL) 43 H Creatinine (0.6 - 1.3 mg/dL) 2.5 H POC Creatinine (0.8 - 1.3 mg/dL) 2.6 H Glomerular Filtr Rate (80 - 90) 27.3 L Glucose (77 - 141 mg/dL) 252 H POC Glucose (70 - 110 MG/DL) 242 H 204 H 133 H POC Glucose (mg/dL) (70 - 110 MG/DL) 258 H Calcium (8.0 - 10.5 mg/dL) 8.5 Ionized Calcium Leanne (1.09 - 1.30 1.08 L MMOL/L) Magnesium (1.6 - 2.6 mg/dL) 2.42 Laboratory Tests 06/13 0456 Hematology WBC (4.5 - 11.0 x10 3/uL) 22.7 H RBC (4.00 - 5.60 x10 6/uL) 3.54 L Hgb (12.5 - 16.9 g/dL) 10.6 L Hct (37.5 - 50.7 %) 33.0 L MCV (81.0 - 99.0 fL) 93.2 MCH (27.0 - 33.0 pg) 29.9 MCHC (33.0 - 37.0 g/dL) 32.1 L RDW (11.5 - 14.5 %) 14.7 H Plt Count (150 - 400 x10 3/uL) 208 MPV (7.0 - 9.0 fL) 12.3 H Neut % (Auto) (56.0 - 77.0 %) 83.4 H Lymph % (Auto) (14.0 - 32.0 %) 5.3 L [place] % (Auto) (4.8 - 9.0 %) 9.8 H Eos % (Auto) (0.3 - 3.7 %) 0.1 L Baso % (Auto) (0.0 - 2.0 %) 0.2 Neut # (Auto) (2.0 - 7.6 x10 3/uL) 18.88 H Lymph # (Auto) (1.0 - 3.8 x10 3/uL) 1.21 [place] # (Auto) (0.1 - 0.8 x10 3/uL) 2.23 H Eos # (Auto) (0.0 - 0.2 x10 3/uL) 0.02 Baso # (Auto) (0.0 - 0.2 x10 3/uL) 0.05 Abs Immat Gran (auto) (0.00 - 0.03 x10 3/uL) 0.28 H Immature Gran % (0.0 - 2.0 %) 1.2 Nucleated RBC % (0 - 0 %) 0.2 H Nucleated RBCs # (Man) (0.0 - 0.1 x10 3/uL) 0.04 Radiology data: Recent Impressions: RADIOLOGY - XR CHEST 1 V 06/13 0609 Report Impression - Status: SIGNED Entered: 06/14/2023 0937 IMPRESSION: A small left apical pneumothorax is now evident. The left chest tube is stable in position. Small right pleural effusion. Stable left pulmonary opacities. Impression By: [email or web address] Frandy Pimentel M.D. ULTRASOUND - US ABDOMEN COMPLETE 06/13 0941 Report Impression - Status: SIGNED Entered: 06/14/2023 1010 IMPRESSION: Evaluation limited by overlying bandage. Cirrhotic liver morphology. Cholelithiasis and distended gallbladder without sonographic features of acute cholecystitis. Impression By: Osiel Fry M.D. Diagnosis, Assessment Plan Consultants: cardiology, cardiovascular surgery Free Text DxA P Notes Free text DxA P notes: Shortness of breath/hypoxia Differential diagnosis includes CHF Placed on Lasix 40 mg IV every 8 hours DC Cardiology consulted Echo: EF 55 to 60% S/p CABG on 06/10 Milrinone drip DC'd On Lasix drip 06/12 On BiPAP now off BiPAP 06/13 On 8 L oxygen via nasal cannula 06/13 Multivessel CAD: S/p CABG on 06/10 On aspirin, Plavix, amiodarone On milrinone drip DC'd Chest tube in place Cardiology, CT surgery, ICC on board Hypotension: BP dropped to 80s over 50s overnight 06/11 On Levophed and vasopressin off pressors ICC, CT surgery on board NIYA: Likely due to above causes Metolazone x 1 given 06/12 On Lasix drip, if urinary output does not improve, may require CRRT 06/12 Nephrology on board Pleural effusion: On Lasix drip Leukocytosis: Likely reactive Monitor and defer to further management to [facility] Leukocytosis improving Abnormal LFTs: -cholelithiasis with distended GB on US Diabetes mellitus A1c 8.4% Insulin drip, transition to Sliding scale insulin as needed, long acting insulin as per [facility] Hypertension Renew medications once they have been updated in the computer Now on pressors for hypotension Check labs in the a.m. Patient does not have a living will or medical power of defense attorney Patient is a full code 06/01 multivessel disease on cath, CTS consulted, patient undergoing preop evaluation for possible CABG. 06/02- pt continues cabg eval, conf Fri, nephro/GI consulted per cts, renal indices wnls today, Abd us confirmed cirrhosis with splenomegaly. 06/03 patient continues preop evaluation for CABG, IV Lasix transition to oral 06/04 CABG preop planning 06/05- CABG planning 06/06 ongoing CABG planning per CTS, blood sugars noted to be elevated in 240s to 300s. Will start on basal insulin 7 units for now daily, continue meal correctional insulin. Patient on glipizide and metformin at home holding for now given CABG eval and and pending surgical date. 06/07- pending CABG eval, d/w Cardiology and started patient on IV lasix 40 mg BID due to increasing wt, symptoms of dyspnea. Monitor I'O's. 06/08- poorly controlled blood sugars noted, increased basal insulin to 10 units daily, add meal time insulin AC, wt based compared to SSI admin, started on 4 Units reg insulin AC. Monitor I/O, contiued on IV lasix 40 mg BID, wt 110 kg today (dry wt reported to be 105 kg). 06/09- optimize insulin for improved glucose control, pending cabg tomorrow 06/10- pending cabg Disposition: S/p CABG on 06/11/2023. off BiPAP, on 8 L oxygen via nasal cannula, on Lasix drip, of pressors, chest tube in place, LFTs worsened. Multiple specialty services on board. Continue CVICU care. Quality: Gen Med Crit Care VTE Prophylaxis VTE prophylaxis initiated: yes Current Medications Current medication review: I attest that the foregoing medication list in the medical record is true, accurate, and complete to the best of my knowledge. Advanced Care Plan 65 or Older Discussed with: patient Discussion included: living will, power of defense attorney, code status at 1553 RPT #:[id number] END OF REPORT [facility] 2023-06-13 13:32:00 [facility] Critical Care Progress Note REPORT#:[id number] REPORT STATUS: Signed REPORT INITIALIZATION DATE:06/13/23 TIME: 1331 PATIENT: MINDY CARTER UNIT #: [id number] ROOM/BED: [place] [address] : 54 AGE: 67 SEX: M ATTEND: Kimmie Bacon MD ADM AUTHOR: Dora Resendez MD REPT SERVICE DT/TIME: 06/13/23 1332 * ALL edits or amendments must be made on the electronic/computer document * Subjective Chief complaint: CABG x 3 (COSTA-LAD, SVG-Diag, SVG-OM) EVH (RGSV) ALAA PP HPI: This is a 67-year-old male with a past medical history significant for cirrhosis , high blood pressure, hyperlipidemia, diabetes, history of alcohol use, and CKD stage II admitted to the hospital with shortness of breath NSTEMI, underwent cardiac cath showed multivessel CAD. Patient underwent CABG x 3 (COSTA-LAD, SVG- Diag, SVG-OM)today. Intraoperatively patient received 400 cc crystalloid, 570 Cell Saver. Urine output was 200 cc. On arrival to ICU patient was intubated on ventilatory support. He was on 5 of Levophed, 10 of epinephrine and 0.5 of milrinone. Comments: Hypotensive with decreasing urine output. Also hypoxic. Now on Levophed, and vasopressin. Placed on BiPAP for respiratory support. Review of Systems Unable to obtain due to: On BiPAP Objective General VS/I O Last Documented: Result Date Time Temp 98.8 06/12 0815 B/P 109/70 06/12 899 B/P Mean 84 06/12 899 Pulse Ox 95 06/12 899 Pulse 80 06/12 899 Resp 23 06/12 09 FiO2 60 06/12 0741 O2 Delivery BiPAP 06/12 740 O2 Flow Rate 12 06/12 1999 24 hour I O ending at 0700: 06/12 0700 06/11 1900 Intake Total 385 Output Total 490 625 Balance -490 -240 Intake, Oral 385 Output, Chest 340 290 Tube Drainage Output, Urine 150 335 Patient 114.5 kg 109.769 kg Weight Weight Standing scale Measurement Method PATIENT WEIGHT: Weight (lb): 252 Weight (oz): 6.87 Weight (kg): 114.500 Physical Exam General appearance: alert, awake, oriented, conversational Head/eyes: atraumatic, clear cornea, EOMI Neck: RIJ CVL Cardiovascular: normal S1/S2 Respiratory: symmetric expansion Abdomen: soft, non-tender, no mass/organomegaly Extremities: edema (2+) Neuro/BUSINESS AREA MANAGER: alert, no motor deficits Results Findings/data: Laboratory Tests 06/12 06/12 06/12 06/12 1247 0936 0723 0514 Blood Gas Puncture Site L Radial L Radial PA O2 Saturation (90 - 100 %) 96.8 96.6 96.8 ABG pH (7.35 - 7.45) 7.386 7.383 7.419 ABG pCO2 (35.0 - 45 mmHg) 29.9 *L 29.5 *L 26.9 *L ABG pO2 (80 - 100.0 mmHg) 88.5 86.3 84.5 ABG PO2/FiO2 Ratio (mm/Hg) 147.50 140.83 ABG HCO3 (22.0 - 26.0 MMOL/L) 17.9 *L 17.6 *L 17.4 *L ABG Total CO2 18.8 18.5 18.3 ABG Base Excess (-4.0 - 4.0 MMOL/L) -7.1 L -7.5 L -7.1 L ABG Hematocrit (37.5 - 50.7 %) 36 L 35 L 34 L 33 L ABG Hemoglobin (12.5 - 16.9 G/DL) 12.4 L 11.7 L 11.4 L 11.3 L VBG pH (7.33 - 7.45) 7.360 VBG pCO2 (43 - 47 mmHg) 37.3 L VBG pO2 (10 - 50 mmHG) 32.7 VBG HCO3 (22 - 27 MMOL/L) 21.1 L POC VBG Total CO2 22.2 VBG O2 Saturation (60 - 80 %) 61.0 VBG Base Excess (-4.0 - 4.0 MMOL/L) -4.3 L VBG Temperature (F) 98 Sodium (134 - 147 mmol/L) 129 L 129 L 128 L 131 L Potassium (3.4 - 5.0 mmol/L) 5.3 H 5.4 H 5.6 H 5.0 Chloride (100 - 108 mmol/L) 103 99 L 105 99 L Ionized Calcium (1.12 - 1.32 MMOL/L) 1.13 1.14 1.04 L 1.17 Lactic Acid (0.9 - 1.7 mmol/l) 1.1 1.3 1.3 0.6 L O2 Delivery Device BiPAP BiPAP Cannula FiO2 (%) 60.0 60 06/12 0321 Blood Gas Puncture Site Art Line O2 Saturation (90 - 100 %) 96.9 ABG pH (7.35 - 7.45) 7.374 ABG pCO2 (35.0 - 45 mmHg) 32.4 L ABG pO2 (80 - 100.0 mmHg) 90.5 ABG PO2/FiO2 Ratio (mm/Hg) 150.83 ABG HCO3 (22.0 - 26.0 MMOL/L) 18.9 L ABG Total CO2 19.9 ABG Base Excess (-4.0 - 4.0 MMOL/L) -6.3 L ABG Hematocrit (37.5 - 50.7 %) 32 L ABG Hemoglobin (12.5 - 16.9 G/DL) 10.7 L Sodium (134 - 147 mmol/L) 130 L Potassium (3.4 - 5.0 mmol/L) 5.0 Chloride (100 - 108 mmol/L) 102 Ionized Calcium (1.12 - 1.32 MMOL/L) 1.18 Lactic Acid (0.9 - 1.7 mmol/l) 0.9 Temperature (F) 98 O2 Delivery Device BiPAP FiO2 (%) 60 Laboratory Tests 06/12 06/12 06/12 06/12 06/12 1247 1157 0944 0936 0723 Chemistry POC Creatinine (0.8 - 1.3 mg/dL) 2.2 H 2.2 H 2.2 H POC Glucose (70 - 110 MG/DL) 181 H POC Glucose (mg/dL) (70 - 110 MG/DL) 171 H 212 H 235 H Lactic Acid (0.4 - 1.9 mmol/L) 1.5 06/12 06/12 06/12 06/12 06/11 0514 0321 0308 0057 2209 Chemistry Sodium (134 - 147 mEq/L) 131 L 131 L Potassium (3.4 - 5.0 mEq/L) 4.9 4.4 Chloride (100 - 108 mEq/L) 101 102 Carbon Dioxide (21 - 33 mEq/l) 19 L 20 L Anion Gap (0 - 20) 16 13 BUN (7 - 25 mg/dL) 33 H 32 H Creatinine (0.6 - 1.3 mg/dL) 2.0 H 1.7 H POC Creatinine (0.8 - 1.3 mg/dL) 2.0 H 1.9 H Glomerular Filtr Rate (80 - 90) 35.7 L 43.4 L Glucose (77 - 141 mg/dL) 170 H 212 H POC Glucose (70 - 110 MG/DL) 160 H POC Glucose (mg/dL) (70 - 110 MG/DL) 162 H 162 H Calcium (8.0 - 10.5 mg/dL) 9.1 8.9 Magnesium (1.6 - 2.6 mg/dL) 2.46 Total Bilirubin (0.0 - 1.0 mg/dL) 0.60 Direct Bilirubin (0.1 - 0.3 MG/DL) 0.30 Indirect Bilirubin (MG/DL) 0.30 AST (8 - 34 IUnit/L) 37 H ALT (10 - 49 IUnit/L) 12 Total Alk Phosphatase (20 - 125 IUnit/L) 73 Total Protein (6.4 - 8.2 g/dL) 6.1 L Albumin (3.4 - 5.0 g/dL) 3.40 06/11 06/11 06/11 06/11 06/11 2116 1732 1632 1511 1346 Chemistry POC Glucose (70 - 110 MG/DL) 185 H 319 H 336 H 356 H 342 H 06/11 1345 Chemistry POC Glucose (70 - 110 MG/DL) 352 H Laboratory Tests 06/12 0308 Hematology WBC (4.5 - 11.0 x10 3/uL) 25.0 H RBC (4.00 - 5.60 x10 6/uL) 3.38 L Hgb (12.5 - 16.9 g/dL) 10.3 L Hct (37.5 - 50.7 %) 31.6 L MCV (81.0 - 99.0 fL) 93.5 MCH (27.0 - 33.0 pg) 30.5 MCHC (33.0 - 37.0 g/dL) 32.6 L RDW (11.5 - 14.5 %) 14.1 Plt Count (150 - 400 x10 3/uL) 152 MPV (7.0 - 9.0 fL) 12.9 H Neut % (Auto) (56.0 - 77.0 %) 85.4 H Lymph % (Auto) (14.0 - 32.0 %) 3.0 L [place] % (Auto) (4.8 - 9.0 %) 10.6 H Eos % (Auto) (0.3 - 3.7 %) 0.0 L Baso % (Auto) (0.0 - 2.0 %) 0.1 Neut # (Auto) (2.0 - 7.6 x10 3/uL) 21.31 H Lymph # (Auto) (1.0 - 3.8 x10 3/uL) 0.74 L [place] # (Auto) (0.1 - 0.8 x10 3/uL) 2.64 H Eos # (Auto) (0.0 - 0.2 x10 3/uL) 0.01 Baso # (Auto) (0.0 - 0.2 x10 3/uL) 0.03 Abs Immat Gran (auto) (0.00 - 0.03 x10 3/uL) 0.23 H Immature Gran % (0.0 - 2.0 %) 0.9 Nucleated RBC % (0 - 0 %) 0.0 Nucleated RBCs # (Man) (0.0 - 0.1 x10 3/uL) 0.00 Immature Plt Fraction (0.9 - 11.2 %) 11.2 Laboratory Tests 06/13/23 0308: [Embedded Image Not Available] 06/12/23 2209: [Embedded Image Not Available] Microbiology: 06/09 1538 NASAL: MSSA Surveillance Screen - COMP 06/09 1538 NASAL: MRSA DNA Surveillance Screen - COMP Free Text Obj Notes Free Text Obj Notes: Middle-age male intubated on mechanical ventilation Pupil equal reactive to light Neck supple Chest with sternotomy dressing, [address] Heart S1-S2 Abdomen soft, could not appreciate bowel sounds Extremities no edema, right leg dressed 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 Pain management with as needed IV Tylenol. Will use low- dose. Also need to monitor closely for signs and symptoms of alcohol withdrawal. He received multivitamin during earlier days of admission. Cardiovascular: EF about 55 to 60% Hypotensive overnight. Now off milrinone 0.25 mcg/kg/min, started on vasopressin and norepinephrine 5 mcg/min. Titrating to keep MAP above 65 and cardiac index greater than 2.2. Left pleural chest tube 200cc Mediastinal chest tube 100 cc. Will keep both in for now. Respiratory: Placed on BiPAP earlier this morning for respiratory distress. Currently on 09/09 FiO2 60%. He is comfortable. Will hopefully diurese and wean off BiPAP. GI: Cardiac diet. LFTs normal except for mild AST elevation. 2:1 ratio consistent with EtOH hepatitis. Hematology: Hemoglobin is stable. SCDs. Endocrine: Insulin for glucose control. Glucose levels still elevated. ID: Perioperative prophylaxis Renal: Developing acute on chronic NIYA with volume overload. Following discussions with nephrology have placed on a furosemide drip at 10 mg every hour with Zaroxolyn. If poor response in 12 to 24 hours will consider initiating CRRT. Full code Updated daughter on current plan of care Total critical care time excluding procedures was 40 minutes. Consultants: cardiology, cardiovascular surgery Quality: [facility] VTE Prophylaxis VTE prophylaxis initiated: yes Current Medications Current medication review: I attest that the foregoing medication list in the medical record is true, accurate, and complete to the best of my knowledge. Advanced Care Plan 65 or Older Discussed with: patient Discussion included: living will, power of defense attorney, code status at 1341 RPT #:[id number] END OF REPORT [facility] 2023-06-13 11:31:00 [facility] Cardiothoracic Surgery Prog REPORT#:[id number] REPORT STATUS: Signed REPORT INITIALIZATION DATE:06/13/23 TIME: 113 PATIENT: MINDY CARTER UNIT #: [id number] ROOM/BED: [place] [address] : 54 AGE: 67 SEX: M ATTEND: Kimmie Bacon MD ADM AUTHOR: Johnna Pablo Physic REPT SERVICE DT/TIME: 06/13/23 1131 * ALL edits or amendments must be made on the electronic/computer document * General Post-op: day 2 Status post: 06/11/23 CABG x 3 (COSTA-LAD, SVG-Diag, SVG-OM) EVH (RGSV) ALAA PP Subjective Chief complaint: Postop cabg Review of Systems Constitutional: Reports: fatigue. Skin: Denies: abrasion, bruising, contusion. Allergy/Immun: Denies: allergic reaction, anaphylaxis, hives. Respiratory: Denies: HERRING (dyspnea on exertion). Cardiovascular: Denies: chest pain, palpitations. Heme: Denies: adenopathy, bleeding, bruising. Endocrine: Denies: cold intolerance, heat intolerance, polydipsia. Neuro: Denies: confusion, dizziness, seizure, syncope. All systems rev neg: except as marked Objective General VS/I O Last Documented: Result Date Time Temp 98.8 06/12 0915 B/P 109/70 06/12 0900 B/P Mean 84 06/12 0900 Pulse Ox 95 06/12 0900 Pulse 80 06/12 0900 Resp 23 06/12 0900 FiO2 60 06/12 0741 O2 Delivery BiPAP 06/12 07 O2 Flow Rate 12 06/12 1999 24 hour I O ending at 0700: 06/12 0700 06/11 1900 Intake Total 385 Output Total 490 625 Balance -490 -240 Intake, Oral 385 Output, Chest 340 290 Tube Drainage Output, Urine 150 335 Patient 114.5 kg 109.769 kg Weight Weight Standing scale Measurement Method PATIENT WEIGHT: Weight (lb): 252 Weight (oz): 6.87 Weight (kg): 114.500 Physical Exam General appearance: alert, awake, oriented HEENT: anicteric, mucosal membranes moist, pupils reactive to light Neck: full range of motion, non-tender Cardiovascular: normal heart sounds, regular rate rhythm Respiratory: aerating well, symmetric expansion Abdomen: soft, non-tender Genitourinary: marques Extremities: dry, moves all Musculoskeletal: no muscle spasm Skin: dry, intact Psychiatry: normal affect, normal mood Quality: Trauma Gen Surg Advanced Care Plan 65 or Older Discussed with: patient Discussion included: living will, power of defense attorney, code status Current Medications Current medication review: I attest that the foregoing medication list in the medical record is true, accurate, and complete to the best of my knowledge. VTE Prophylaxis - General VTE prophylaxis initiated: yes Diagnosis, Assessment Plan Hospital course to date: This is a 67-year-old gentleman with a past medical history of hypertension, hyperlipidemia, diabetes, neuropathy, alcohol use, liver cirrhosis, kidney disease, syncope who came to the hospital with shortness of breath and chest tightness for 2 days. Patient describes significant orthopnea and increasing edema in bilateral lower extremities that brought the patient to the hospital. Initial workup positive for mildly elevated troponin and elevated BNP and was diagnosed with NSTEMI and CHF exacerbation with acute hypoxic respiratory failure. Patient then underwent cardiac catheterization for elevated troponin. CV surgery was consulted for multivessel coronary artery disease found on angiogram. 1. multivessel disease -Patient underwent cardiac angiogram: Left main-proximal to mid 60 to 70% stenosis LAD-ostial LAD 90% stenosis Left circumflex-patent RCA-mild 30 to 40% mid stenosis EF 55 to 60% Wall motion is normal, grade 1 diastolic dysfunction, normal systolic function. Mitral valve: Moderately calcified with leaflet thickening. Moderate stenosis. Mild regurgitation. Aortic valve: Thickening and sclerosis 2. Liver disease -Patient recently diagnosed. Patient does not live local to [place]. Will consult gastroenterology to see patient. -EtOH cessation 3. Chronic kidney disease -Patient does not live local to [place]. Will consult nephrology to see patient. Patient will be presented at complex cardiology conference on Wednesday. Further recommendations to follow. 06/04/23 Patient in stable condition Labs and imaging reviewed Case presented at complex cardiology conference this morning and the team deemed patient will be best be suited with CABG. Preop workup ongoing Timing of surgery pending Plan of care discussed with patient and family. All questions were answered. 06/05/23 Patient doing well, denies chest pain Labs reviewed Pre op workup ongoing, pending vein mapping and carotid duplex On 4l nasal cannula, wean off oxygen as tolerated Incentive spirometer teaching Cardiac diet OOB to chair, ambulate Plan of care discussed with patient, all questions were answered. 06/06/23 Patient in stable condition Denies chest pain Wean off oxygen Encourage I-S use and deep breathing Tentatively plan for CABG in the upcoming week Plan of care discussed with patient, all questions were answered. 06/07/23 Patient seen and examined, denies chest pain Labs reviewed I-S use encourage, wean off oxygen as tolerated, on 2 L nasal cannula Tolerating diet Out of bed in chair, PT OT Timing of surgery pending Plan of care discussed with the patient, all questions were answered 06/08/23 Patient in stable condition Labs reviewed On room air, encourage I-S use Preop workup completed I will tentatively schedule him for surgery on Wednesday Plan of care discussed with patient, all questions were answered 06/09/23 Patient in stable condition Labs reviewed On room air, encourage I-S use Preop workup completed I will tentatively schedule him for surgery on Wednesday Plan of care discussed with patient, all questions were answered 06/10/23 Patient is stable condition, denies chest pain On room air Preop workup completed Plan for surgery on Wednesday-CABG and possible mitral valve I have discussed with the patient the operation, risk involved, calculated STS risk score, benefits, alternatives, and complicated. Patient acknowledges understanding and is willing to proceed. 06/11/23 CABG x 3 (COSTA-LAD, SVG-Diag, SVG-OM) EVH (RGSV) ALAA PP 06/12/23 POD 1 AAO x 3 Respiratory: on 10 L NC, wean as tolerated. Encourage IS. CT in place 325/196, leave in place, monitor outputs. Cardiac: Sinus rhythm. on levo 5, epi 2, Milrinone. GI: advance diet as tolerated. continue Bowel regimen. : Marques in place. Patient walked unit with PT DC Tylenol due to liver disease Patient was seen and examined at [facility]. Plan of care discussed with multidisciplinary team 06/13/23 POD 2 AAO x 3 Respiratory: on Bipap Encourage IS. Cardiac: Sinus rhythm. Pacing wires on standby, episode of hypotension, on levo @ 6, no response to dopamine for urine output GI: advance diet as tolerated. continue Bowel regimen. : Marques in place. Low urine output, start Lasix drip, vasopressin Plan to start Lasix drip. If no improvement in renal perfusion, patient will need CRRT. Patient was seen and examined at [facility]. Plan of care discussed with multidisciplinary team Nephrology following. Appreciate input Continue supportive care, Consultants: cardiology, cardiovascular surgery at 1136 at 2002 RPT #:[id number] END OF REPORT [facility] 2023-06-13 11:28:00 [facility] ([facility] Nephrology Progress Note REPORT#:[id number] REPORT STATUS: Signed REPORT INITIALIZATION DATE:06/13/23 TIME: 1127 PATIENT: MINDY CARTER UNIT #: [id number] ROOM/BED: [place] [address] : 54 AGE: 67 SEX: M ATTEND: Kimmie Bacon MD ADM AUTHOR: Nkechi Bacon MD REPT SERVICE DT/TIME: 06/13/23 1128 * ALL edits or amendments must be made on the electronic/computer document * Subjective Chief complaint: SOB, CP HPI: 67-year-old male known to have hypertension, diabetes mellitus, hyperlipidemia, liver cirrhosis, chronic kidney disease who presented with shortness of breath and chest tightness and on further workup was found to have multivessel disease therefore he was being worked up for possible CABG. He said he had been diagnosed recently with chronic kidney disease but did not have any nausea, orthopnea, cramping, change of taste, involuntary movements, urinary complaints. He denied any chronic use of NSAIDs. He said for most part his blood pressures were controlled at home. 06/11 Patient on BIPAP no distress. Objective General VS/I O: Vital Signs: Date Time Temp Pulse Resp B/P B/P Pulse O2 O2 Flow FiO2 Mean Ox Delivery Rate 06/12 0915 37.1 06/12 0900 109/70 84 / 0900 80 23 115/61 76 95 03/17 0830 106/70 83 / 0830 80 23 114/62 77 95 /17 0800 104/66 80 03/ 0800 79 24 107/57 72 95 / 0741 BiPAP 60 / 0730 95/68 76 03/17 0730 79 29 87/72 80 95 / 0716 108/60 78 03/ 0716 79 26 104/55 69 95 /17 0700 102/65 77 03/ 0700 79 36 114/58 73 95 03/17 0645 98/64 75 03/17 0645 79 35 113/56 71 92 03/17 0639 99/66 76 03/17 0639 78 36 111/54 69 86 03/17 0630 78 37 100/45 61 95 03/17 0600 86 38 114/47 65 99 03/17 0532 110/59 77 03/17 0532 92 35 118/51 70 91 03/17 0530 91 36 118/54 71 89 03/17 0500 87 24 119/52 69 03/17 0440 89/52 65 03/17 0440 84 24 112/46 62 93 03/17 0430 84 23 105/46 60 94 03/17 0421 81/50 60 03/17 0421 85 28 105/50 64 98 03/17 0420 79/53 62 03/17 0420 85 29 109/49 64 96 03/17 0400 91/54 67 03/17 0400 85 23 114/52 67 93 03/17 0340 94/55 69 03/17 0340 84 23 116/55 70 98 03/17 0330 83 20 111/54 68 97 03/17 0320 90/55 67 03/17 0320 82 21 111/53 67 97 03/17 0300 87/53 64 03/17 0300 81 25 99/51 64 95 03/17 0300 82 95 60 03/17 0300 95 BiPAP 60 03/17 0240 86/57 67 03/17 0240 81 30 104/53 66 96 03/17 0230 82 32 103/52 65 100 03/17 0224 83/51 61 03/17 0224 82 32 107/55 69 91 03/17 0221 86/53 61 03/17 0221 84 32 96/50 63 88 03/17 0205 82 23 106/52 66 96 03/17 0200 90/53 66 03/17 0200 81 27 103/51 65 96 03/17 0141 87/58 68 03/17 0141 81 33 99/52 65 93 03/17 0130 79 25 99/51 64 100 03/17 0120 83/54 63 03/17 0120 78 27 97/52 64 100 03/17 0100 88/53 65 03/17 0100 76 27 96/52 63 100 03/17 0045 88/52 65 03/17 0045 79 32 106/56 69 98 03/17 0040 81/53 61 03/17 0040 79 31 90/51 62 93 03/17 0030 79 35 106/57 70 96 03/17 0020 88/53 64 03/17 0020 79 28 109/58 71 98 03/16 2340 76 23 109/56 69 97 03/16 2330 76 23 114/57 71 97 03/16 2320 92/54 67 03/16 2320 75 24 114/56 71 97 03/16 2302 77 27 121/59 75 97 03/16 2300 98/54 70 03/16 2300 76 25 122/60 75 97 03/16 2250 75 95 60 03/16 2250 95 BiPAP 60 03/16 2240 92/53 65 03/16 2240 75 23 112/56 70 95 03/16 2230 75 23 113/56 70 95 03/16 2220 88/50 62 03/16 2220 76 30 110/55 68 95 03/16 2200 92/53 67 03/16 2200 76 22 117/56 71 97 03/16 2140 87/53 65 03/16 2140 75 28 117/57 72 96 03/16 2130 76 31 112/55 69 96 03/16 2120 95/55 70 03/16 2120 76 28 121/57 72 96 03/16 2100 102/57 73 03/16 2100 75 23 122/57 73 98 03/16 2040 99/55 71 03/16 0 75 22 123/57 73 98 03/16 2029 75 28 123/58 73 95 03/16 2019 98/53 68 03/16 2019 75 31 120/58 73 100 03/16 1999 36.7 06/12 1999 Nasal 12 cannula 06/12 1999 101/59 76 03/16 1999 76 32 117/56 71 99 03/16 1940 98/53 69 03/16 1940 75 24 122/58 73 100 03/16 1930 77 34 120/57 73 98 03/16 1925 100 High flow 8 nasal cannula /16 1920 96/54 70 03/16 1920 75 23 121/57 73 97 /16 1900 94/54 67 03/16 1900 75 22 124/60 75 100 03/16 1800 98/54 70 03/16 1800 79 32 121/57 73 95 03/16 1730 80 34 128/60 78 94 03/16 1700 103/57 74 03/16 1640 81 35 129/59 76 94 /16 1630 80 31 113/51 67 93 03/16 1600 92/51 65 03/16 1540 82 36 111/51 67 93 03/16 1530 81 33 121/54 73 94 03/16 1508 94 High flow 10 nasal cannula / 1501 80 34 123/56 73 95 03/16 1420 80 36 122/55 72 95 03/16 1400 97/65 76 03/16 1400 81 30 127/59 76 93 03/16 1340 79 23 127/55 72 97 03/16 1330 79 23 121/53 69 95 03/16 1300 80 35 113/60 76 91 03/16 1230 80 30 124/56 74 95 03/16 1200 99/56 69 03/16 1200 79 34 123/56 74 93 03/16 1136 97 High flow 12 nasal cannula 24 hour I O ending at 0700: 06/12 0700 06/11 1900 Intake Total 385 Output Total 490 625 Balance -490 -240 Intake, Oral 385 Output, Chest 340 290 Tube Drainage Output, Urine 150 335 Patient 114.5 kg 109.769 kg Weight Weight Standing scale Measurement Method PATIENT WEIGHT: Weight (lb): 252 Weight (oz): 6.87 Weight (kg): 114.500 Physical Exam General appearance: alert, awake, no acute distress Head/eyes: atraumatic, EOMI ENT: moist mucous membranes, normal nose Neck: no JVD, no lymphadenopathy Cardiovascular: normal heart sounds, regular rate and rhythm Respiratory: aerating well, clear to auscultation Abdomen: non-tender, soft Genitourinary: no bladder distention, no flank pain Extremities: no edema, no gangrene, no swelling Diagnosis, Assessment Plan Free Text A P: 67-year-old male known to have hypertension, diabetes mellitus, hyperlipidemia, liver cirrhosis, chronic kidney disease who presented with shortness of breath and chest tightness and on further workup was found to have multivessel disease therefore he was being worked up for possible CABG. He said he had been diagnosed recently with chronic kidney disease but did not have any nausea, orthopnea, cramping, change of taste, involuntary movements, urinary complaints. He denied any chronic use of NSAIDs. He said for most part his blood pressures were controlled at home. Nephrology following for: 1. CKD:: Most recent creatinine was staying in normal range therefore plan is to keep mean arterial pressure above 65 and avoid nephrotoxic agents. 2. Hypertension: Mostly controlled therefore plan is to continue same. 3. Hypervolemia: Plan is to monitor input and output closely and treat with Lasix if needed. His echocardiogram showed an EF of 55 to 60%. 4. Chest pain/shortness of breath: He had been worked up with left heart cath and received contrast recently. Plan was to monitor closely for contrast- induced nephropathy and keep hydrated. 06/12 1. NIYA on CKD: Most likely cardiorenal as his blood pressures dropped last night and he was started on vasopressin and epinephrine in addition to norepinephrine. 2. Hypotension:He is post op CABG and is requiring pressor support, plan to monitor and keep MAP>65. 3. Hypervolemia: He is post op CABG and has recieved fluids during surgey, plan to monitor I/O and give lasix as tolerated. He is on lasix drip and if not responding plan is to start CRRT. 4. Chest pain/shortness of breath: s/p CABG 06/10. Consultants: cardiology, cardiovascular surgery at 1131 RPT #:[id number] END OF REPORT [facility] 2023-06-13 10:52:00 [id number] [facility] [address] [place] [address] PATIENT NAME: MINDY CARTER ADMIT DATE: 05/31/23 ACCOUNT NO: [id number] ROOM NO: 220 AGE: 67 REPORT TYPE: eECHOCARDIOGRAM REPORT SEX: M ADMITTING PHYSICIAN:Eleonora Mai MD ATTENDING PHYSICIAN:Kimmie Bacon MD *[place] [address] Transthoracic Echocardiogram Patient: Mindy Carter Study Date: 06/13/2023 BP: 110 / 59 URN: [id number] Location: : 1955 Age: 67 Gender: M Height: 68.9 in / 175 cm Weight: 242.5 lb / 110 kg BMI/BSA: 35.9 kg/m 2 / 2.35 m 2 *Ordering Physician: * Jeremiah Martel MD *Interpreting Physician: * Geovani Hogan MD *Continuing Education Specialist: * Dominic Hadley Indications: R/O EFFUSION. Study data: Transthoracic echocardiogram. Procedure: A transthoracic echocardiogram was performed. Image quality was poor. The study was technically limited due to poor acoustic window availability. Complete 2D, complete spectral Doppler, and color Doppler. Location: Bedside. Patient room number: 2202. Study status: Stat. Heart rate: 79 bpm. Findings Left ventricle: The cavity size is normal. Wall thickness is normal. Systolic function is normal. Wall motion is normal; there are no regional wall motion abnormalities. Abnormal left ventricular diastolic function. Right ventricle: The cavity size is mildly dilated. PATIENT NAME: MINDY CARTER Ventricular septum: There is systolic flattening. Left atrium: The atrium is moderately dilated. Right atrium: The atrium is mildly dilated. Aorta: Aortic root: The root is normal-sized. Aortic valve: The valve is structurally normal. The valve is trileaflet. There is no evidence of stenosis. There is no regurgitation. Mitral valve: The leaflets are mildly calcified. There is no evidence of stenosis. There is no regurgitation. Tricuspid valve: The valve is structurally normal. There is mild-moderate regurgitation. Pulmonic valve: Not well visualized. Pericardium: There is no pericardial effusion. Pulmonary arteries: Not well visualized. Systemic veins: Inferior vena cava: The IVC is not visualized. Measurements Left ventricle Value Ref 05/31/2023 CHOCO, LAX 4.9 cm 4.2 - 5.8 4.5 ESD, LAX 3.1 cm 2.5 - 4.0 3.1 FS, LAX 37 % 25 - 43 31 IVS, ED 0.9 cm 0.6 - 1.0 1.2 PW, ED 1.0 cm 0.6 - 1.0 1.2 IVS/PW, ED 0.92 --------- 1.02 EF 67 % 52 - 72 58 LVOT Value Ref 05/31/2023 Diam, S 2.18 cm --------- 1.99 Area 3.7 cm 2 --------- 3.1 Peak kenny, S 1.13 m/sec --------- 1.24 Mean kenny, S 0.8 m/sec --------- 0.81 VTI, S 20.8 cm --------- 22.5 Peak grad, S 5 mm Hg --------- 6 Mean grad, S 3 mm Hg --------- 3 SV 77 ml --------- 70 Qs 6.03 L/min --------- 6.76 Qs/bsa 2.6 L/(min-m 2) --------- 2.9 SV/bsa 33 ml/m 2 --------- 30 Right ventricle Value Ref 05/31/2023 Pressure, S 42 mm Hg --------- 18 Tricuspid valve Value Ref 05/31/2023 TR peak v 2.8 m/sec <=2.8 1.4 Peak RV-RA grad, S 32 mm Hg --------- 8 Pulmonary artery Value Ref 05/31/2023 Pressure, S 42.1 mm Hg --------- 12.5 Systemic veins Value Ref 05/31/2023 Estimated CVP 10 mm Hg --------- 10 PATIENT NAME: MINDY CARTER Conclusions Summary: 1. Left ventricle: The cavity size is normal. Wall thickness is normal. Systolic function is normal. Wall motion is normal; there are no regional wall motion abnormalities. Abnormal left ventricular diastolic function. 2. Pulmonary arteries: The peak systolic pressure is 42.1 mm Hg. Electronically signed by Geovani Hogan MD 06/13/2023 10:52 at 1052 PATIENT NAME: MINDY CARTER [facility] 2023-06-13 10:27:00 [facility] ([facility]) Cardiology Progress Note REPORT#:[id number] REPORT STATUS: Signed REPORT INITIALIZATION DATE:06/13/23 TIME: 1026 PATIENT: MINDY CARTER UNIT #: [id number] ROOM/BED: [place] [address] : [birth year] AGE: 67 SEX: M ATTEND: Kimmie Bacon MD ADM AUTHOR: Geovani Hogan MD REPT SERVICE DT/TIME: 06/13/23 1027 * ALL edits or amendments must be made on the electronic/computer document * Objective General VS/I O: 24 hour I O ending at 0700: 06/12 0700 06/11 1900 Intake Total 385 Output Total 490 625 Balance -490 -240 Intake, Oral 385 Output, Chest 340 290 Tube Drainage Output, Urine 150 335 Patient 114.5 kg 109.769 kg Weight Weight Standing scale Measurement Method Vital Signs: Date Time Temp Pulse Resp B/P B/P Pulse O2 O2 Flow FiO2 Mean Ox Delivery Rate 06/12 0915 37.1 06/12 0900 109/70 84 06/12 0900 80 23 115/61 76 95 06/12 0830 106/70 83 06/12 0830 80 23 114/62 77 95 06/12 0800 104/66 80 06/12 0800 79 24 107/57 72 95 06/12 0741 BiPAP 60 06/12 0730 95/68 76 06/12 0730 79 29 87/72 80 95 06/12 0716 108/60 78 06/12 0716 79 26 104/55 69 95 06/12 0700 102/65 77 06/12 0700 79 36 114/58 73 95 06/12 0645 98/64 75 06/12 0645 79 35 113/56 71 92 06/12 0639 99/66 76 06/12 0639 78 36 111/54 69 86 06/12 0630 78 37 100/45 61 95 03/17 0600 86 38 114/47 65 99 03/17 0532 110/59 77 03/17 0532 92 35 118/51 70 91 03/17 0530 91 36 118/54 71 89 03/17 0500 87 24 119/52 69 03/17 0440 89/52 65 03/17 0440 84 24 112/46 62 93 03/17 0430 84 23 105/46 60 94 03/17 0421 81/50 60 03/17 0421 85 28 105/50 64 98 03/17 0420 79/53 62 03/17 0420 85 29 109/49 64 96 03/17 0400 91/54 67 03/17 0400 85 23 114/52 67 93 03/17 0340 94/55 69 03/17 0340 84 23 116/55 70 98 03/17 0330 83 20 111/54 68 97 03/17 0320 90/55 67 03/17 0320 82 21 111/53 67 97 03/17 0300 87/53 64 03/17 0300 81 25 99/51 64 95 03/17 0300 82 95 60 03/17 0300 95 BiPAP 60 03/17 0240 86/57 67 03/17 0240 81 30 104/53 66 96 03/17 0230 82 32 103/52 65 100 03/17 0224 83/51 61 03/17 0224 82 32 107/55 69 91 03/17 0221 86/53 61 03/17 0221 84 32 96/50 63 88 03/17 0205 82 23 106/52 66 96 03/17 0200 90/53 66 03/17 0200 81 27 103/51 65 96 03/17 0141 87/58 68 03/17 0141 81 33 99/52 65 93 03/17 0130 79 25 99/51 64 100 03/17 0120 83/54 63 03/17 0120 78 27 97/52 64 100 03/17 0100 88/53 65 03/17 0100 76 27 96/52 63 100 03/17 0045 88/52 65 03/17 0045 79 32 106/56 69 98 03/17 0040 81/53 61 03/17 0040 79 31 90/51 62 93 03/17 0030 79 35 106/57 70 96 03/17 0020 88/53 64 03/17 0020 79 28 109/58 71 98 03/16 2340 76 23 109/56 69 97 03/16 2330 76 23 114/57 71 97 03/16 2320 92/54 67 03/16 2320 75 24 114/56 71 97 03/16 2302 77 27 121/59 75 97 03/16 2300 98/54 70 03/16 2300 76 25 122/60 75 97 03/16 2250 75 95 60 03/16 2250 95 BiPAP 60 03/16 2240 92/53 65 03/16 2240 75 23 112/56 70 95 03/16 2230 75 23 113/56 70 95 03/16 2220 88/50 62 03/16 2220 76 30 110/55 68 95 03/16 2200 92/53 67 03/16 2200 76 22 117/56 71 97 03/16 2140 87/53 65 03/16 2140 75 28 117/57 72 96 03/16 2130 76 31 112/55 69 96 03/16 2120 95/55 70 03/16 2120 76 28 121/57 72 96 03/16 2100 102/57 73 03/16 2100 75 23 122/57 73 98 03/16 2040 99/55 71 03/16 2040 75 22 123/57 73 98 03/16 2030 75 28 123/58 73 95 03/16 2020 98/53 68 03/16 2020 75 31 120/58 73 100 03/16 2000 36.7 03/16 2000 Nasal 12 cannula 03/16 1999 101/59 76 03/16 2000 76 32 117/56 71 99 03/16 1940 98/53 69 03/16 1940 75 24 122/58 73 100 03/16 1930 77 34 120/57 73 98 03/16 1925 100 High flow 8 nasal cannula 03/16 1920 96/54 70 03/16 1920 75 23 121/57 73 97 03/16 1900 94/54 67 03/16 1900 75 22 124/60 75 100 03/16 1800 98/54 70 03/16 1800 79 32 121/57 73 95 03/16 1730 80 34 128/60 78 94 03/16 1700 103/57 74 03/16 1640 81 35 129/59 76 94 03/16 1630 80 31 113/51 67 93 03/16 1600 92/51 65 03/16 1540 82 36 111/51 67 93 03/16 1530 81 33 121/54 73 94 06/11 1508 94 High flow 10 nasal cannula 06/11 1501 80 34 123/56 73 95 16 1420 80 36 122/55 72 95 16 1400 97/65 76 03/16 1400 81 30 127/59 76 93 /16 1340 79 23 127/55 72 97 16 1330 79 23 121/53 69 95 16 1300 80 35 113/60 76 91 06/11 1230 80 30 124/56 74 95 /16 1200 99/56 69 03/16 1200 79 34 123/56 74 93 06/11 1136 97 High flow 12 nasal cannula 06/11 1120 79 33 124/54 72 95 /16 1100 102/59 73 /16 1100 77 26 139/59 78 95 06/11 1037 74 33 108/57 77 94 PATIENT WEIGHT: Weight (lb): 252 Weight (oz): 6.87 Weight (kg): 114.500 Medications: Active Meds + DC'd Last 24 Hrs Ipratropium [place] (ATROVENT) 500 MCG RTQ2H PRN PRN INH Cyanocobalamin (Vitamin B-12 500 mcg tab) 500 MCG DAILY PO Ferrous Sulfate (FERROUS SULFATE) 325 MG DAILY PO Bisacodyl (DULCOLAX) 10 MG ONCE PRN RECTAL Magnesium Hydroxide (MILK OF MAGNESIA) 30 ML ONCE PRN PO Furosemide (LASIX) 240 MG Q24H IV (CKD) Sodium Chloride (SODIUM CHLORIDE 0.9%) 24 ML Vasopressin (VASOSTRICT 20 Unit/NS 100ML) 100 ML ASDIR IV (CKD) Furosemide (LASIX 40 mg/4 mL INJECTION) 40 MG ONCE ONE IV (DC) Albumin Human (ALBUMINAR 5% 12.5GM/250ML) 250 ML ONCE ONE IV (DC) Dopamine HCl/Dextrose (DOPamine 400MG/D5W 250ML) 250 ML ASDIR IV Insulin Glargine (Semglee) 30 UNIT BEDTIME SUBQ Melatonin (Melatonin) 6 MG BEDTIME PO (CAN) Epinephrine (ADRENALIN CHLORIDE) 4 MG ASDIR IV Sodium Chloride (SODIUM CHLORIDE 0.9%) 246 ML Miscellaneous Information (PHARMACY TO DOSE/EVALUATE) 1 EACH ASDIR MISC Melatonin (Melatonin) 6 MG BEDTIME PRN PO Furosemide (LASIX) 40 MG Q12H PO (DC) Clopidogrel Bisulfate (Plavix) 75 MG DAILY PO Polyethylene Glycol (MIRALAX) 17 GM DAILY PO Pantoprazole (PROTONIX) 40 MG DAILY@0600 PO Milrinone Lactate/Dextrose (MILRINONE 20MG/D5W 100ML) 100 ML TITRATE IV (CKD) Aspirin (ASPIRIN) 81 MG DAILY PO Amiodarone HCl (CORDARONE) 200 MG TID PO Docusate Sodium (COLACE) 100 MG BID PO Gabapentin (NEURONTIN) 200 MG BID PO Metoprolol Tartrate (LOPRESSOR) 12.5 MG Q12HR PO Mupirocin (BACTROBAN 2% 22 GM OINTMENT) 1 APPLIC BID NASAL Sennosides (Senna Lax 8.6 MG TABLET) 17.2 MG BEDTIME PO Ipratropium [place] (ATROVENT) 500 MCG RTQ4H INH Acetaminophen (TYLENOL) 650 MG Q4H PRN PRN PO (DC) Acetaminophen (TYLENOL) 650 MG Q4H PRN PRN RECTAL (DC) Albumin Human (ALBUMINAR 25%) 25 GM ASDIR PRN IV (DC) Calcium Chloride (CALCIUM CHLORIDE) 1 GM ASDIR PRN IV Cefazolin Sodium (KEFZOL OR ANCEF) 6 GM ONCE ONE IV (DC) Sodium Chloride (SODIUM CHLORIDE 0.9%) 500 ML Dextrose/Water (DEXTROSE 10% IN WATER) 125 ML ASDIR PRN IV (CKD) Dextrose/Water (DEXTROSE 10% IN WATER) 250 ML ASDIR PRN IV (CKD) Epinephrine (ADRENALIN CHLORIDE) 4 MG ASDIR IV (DC) Dextrose/Water (DEXTROSE 5% WATER) 246 ML Insulin Human Regular (HumuLIN R) 100 UNIT ASDIR IV (CKD) Sodium Chloride (SODIUM CHLORIDE 0.9%) 99 ML Magnesium Sulfate (MAGNESIUM SULFATE 4GM/SWFI 100ML) 100 ML ASDIR PRN IV Magnesium Sulfate (MAGNESIUM SULFATE 2GM/SWFI 50ML) 50 ML ASDIR PRN IV Magnesium Sulfate/Dextrose (MAGNESIUM SULFATE 1GM/D5W 100ML) 100 ML ASDIR PRN IV Nitroglycerin/Dextrose (NITROGLYCERIN 50,000MCG/D5W 250ML) 250 ML ASDIR IV Norepinephrine Bitartrate (NOREPINEPHRINE 8 MG/NS 250 ML) 250 ML TITRATE IV Ondansetron HCl (ZOFRAN) 4 MG Q6H PRN PRN IV Oxycodone HCl (ROXICODONE) 5 MG Q4H PRN PRN PO Oxycodone HCl (ROXICODONE) 10 MG Q4H PRN PRN PO Potassium Chloride (KCL 20MEQ/SWFI 100ML) 100 ML ASDIR PRN IV Sodium Bicarbonate (SODIUM BICARBONATE) 50 MEQ ASDIR PRN IV Sodium Chloride (SODIUM CHLORIDE 0.9%) 1,000 ML .Q20H IV Sodium Chloride (SODIUM CHLORIDE 0.9%) 250 ML Q24H IV Lactulose (LACTULOSE) 10 GM DAILY PRN PRN PO Thiamine HCl (THIAMINE HCL) 100 MG DAILY PO Physical Exam General appearance: alert, awake Neck: no bruit/NL carotids, no JVD Cardiovascular: CV assessment: regular rate and rhythm, BP pulses = bilaterally, normal heart sounds, no gallop, no murmur, no rub, no thrill Respiratory: clear to auscultation Abdomen: soft, non-tender, normal bowel sounds, no distention, no guarding, no mass/organomegaly, no pulsatile mass, no rebound Neuro/BUSINESS AREA MANAGER: no motor deficits Results Findings/Data: Laboratory Tests 06/12 06/12 06/12 06/12 0936 0723 0514 0321 Blood Gas Puncture Site L Radial PA Art Line O2 Saturation (90 - 100 %) 96.6 96.8 96.9 ABG pH (7.35 - 7.45) 7.383 7.419 7.374 ABG pCO2 (35.0 - 45 mmHg) 29.5 *L 26.9 *L 32.4 L ABG pO2 (80 - 100.0 mmHg) 86.3 84.5 90.5 ABG PO2/FiO2 Ratio (mm/Hg) 140.83 150.83 ABG HCO3 (22.0 - 26.0 MMOL/L) 17.6 *L 17.4 *L 18.9 L ABG Total CO2 18.5 18.3 19.9 ABG Base Excess (-4.0 - 4.0 MMOL/L) -7.5 L -7.1 L -6.3 L ABG Hematocrit (37.5 - 50.7 %) 35 L 34 L 33 L 32 L ABG Hemoglobin (12.5 - 16.9 G/DL) 11.7 L 11.4 L 11.3 L 10.7 L VBG pH (7.33 - 7.45) 7.360 VBG pCO2 (43 - 47 mmHg) 37.3 L VBG pO2 (10 - 50 mmHG) 32.7 VBG HCO3 (22 - 27 MMOL/L) 21.1 L POC VBG Total CO2 22.2 VBG O2 Saturation (60 - 80 %) 61.0 VBG Base Excess (-4.0 - 4.0 MMOL/L) -4.3 L VBG Temperature (F) 98 Sodium (134 - 147 mmol/L) 129 L 128 L 131 L 130 L Potassium (3.4 - 5.0 mmol/L) 5.4 H 5.6 H 5.0 5.0 Chloride (100 - 108 mmol/L) 99 L 105 99 L 102 Ionized Calcium (1.12 - 1.32 MMOL/L) 1.14 1.04 L 1.17 1.18 Lactic Acid (0.9 - 1.7 mmol/l) 1.3 1.3 0.6 L 0.9 Temperature (F) 98 O2 Delivery Device BiPAP Cannula BiPAP FiO2 (%) 60 60 Laboratory Tests 06/12 06/12 06/12 06/12 06/12 0936 0723 0514 0321 0308 Chemistry Sodium (134 - 147 mEq/L) 131 L Potassium (3.4 - 5.0 mEq/L) 4.9 Chloride (100 - 108 mEq/L) 101 Carbon Dioxide (21 - 33 mEq/l) 19 L Anion Gap (0 - 20) 16 BUN (7 - 25 mg/dL) 33 H Creatinine (0.6 - 1.3 mg/dL) 2.0 H POC Creatinine (0.8 - 1.3 mg/dL) 2.2 H 2.2 H 2.0 H 1.9 H Glomerular Filtr Rate (80 - 90) 35.7 L Glucose (77 - 141 mg/dL) 170 H POC Glucose (mg/dL) (70 - 110 MG/DL) 212 H 235 H 162 H 162 H Calcium (8.0 - 10.5 mg/dL) 9.1 Magnesium (1.6 - 2.6 mg/dL) 2.46 Total Bilirubin (0.0 - 1.0 mg/dL) 0.60 Direct Bilirubin (0.1 - 0.3 MG/DL) 0.30 Indirect Bilirubin (MG/DL) 0.30 AST (8 - 34 IUnit/L) 37 H ALT (10 - 49 IUnit/L) 12 Total Alk Phosphatase (20 - 125 73 IUnit/L) Total Protein (6.4 - 8.2 g/dL) 6.1 L Albumin (3.4 - 5.0 g/dL) 3.40 06/12 06/11 06/11 06/11 06/11 0057 2209 2116 1732 1632 Chemistry Sodium (134 - 147 mEq/L) 131 L Potassium (3.4 - 5.0 mEq/L) 4.4 Chloride (100 - 108 mEq/L) 102 Carbon Dioxide (21 - 33 mEq/l) 20 L Anion Gap (0 - 20) 13 BUN (7 - 25 mg/dL) 32 H Creatinine (0.6 - 1.3 mg/dL) 1.7 H Glomerular Filtr Rate (80 - 90) 43.4 L Glucose (77 - 141 mg/dL) 212 H POC Glucose (70 - 110 MG/DL) 160 H 185 H 319 H 336 H Calcium (8.0 - 10.5 mg/dL) 8.9 06/11 06/11 06/11 06/11 1511 1346 1345 1140 Chemistry POC Glucose (70 - 110 MG/DL) 356 H 342 H 352 H 293 H Laboratory Tests 06/12 0308 Hematology WBC (4.5 - 11.0 x10 3/uL) 25.0 H RBC (4.00 - 5.60 x10 6/uL) 3.38 L Hgb (12.5 - 16.9 g/dL) 10.3 L Hct (37.5 - 50.7 %) 31.6 L MCV (81.0 - 99.0 fL) 93.5 MCH (27.0 - 33.0 pg) 30.5 MCHC (33.0 - 37.0 g/dL) 32.6 L RDW (11.5 - 14.5 %) 14.1 Plt Count (150 - 400 x10 3/uL) 152 MPV (7.0 - 9.0 fL) 12.9 H Neut % (Auto) (56.0 - 77.0 %) 85.4 H Lymph % (Auto) (14.0 - 32.0 %) 3.0 L [place] % (Auto) (4.8 - 9.0 %) 10.6 H Eos % (Auto) (0.3 - 3.7 %) 0.0 L Baso % (Auto) (0.0 - 2.0 %) 0.1 Neut # (Auto) (2.0 - 7.6 x10 3/uL) 21.31 H Lymph # (Auto) (1.0 - 3.8 x10 3/uL) 0.74 L [place] # (Auto) (0.1 - 0.8 x10 3/uL) 2.64 H Eos # (Auto) (0.0 - 0.2 x10 3/uL) 0.01 Baso # (Auto) (0.0 - 0.2 x10 3/uL) 0.03 Abs Immat Gran (auto) (0.00 - 0.03 x10 3/uL) 0.23 H Immature Gran % (0.0 - 2.0 %) 0.9 Nucleated RBC % (0 - 0 %) 0.0 Nucleated RBCs # (Man) (0.0 - 0.1 x10 3/uL) 0.00 Immature Plt Fraction (0.9 - 11.2 %) 11.2 Laboratory Tests 06/12 0308 Chemistry Magnesium (1.6 - 2.6 mg/dL) 2.46 Radiology data: Recent Impressions: RADIOLOGY - XR CHEST 1 V 06/12 0729 Report Impression - Status: SIGNED Entered: 06/13/2023 0756 IMPRESSION: 1. Lines and tubes, as above. 2. Otherwise, no significant interval change. Impression By: [email or web address] - Nicolas Farmer M.D. Diagnosis, Assessment Plan Free Text DxA P Notes Free Text DxA P Notes: CABG x 3 (COSTA-LAD, SVG-Diag, SVG-OM) EVH (RGSV) ALAA 06/12/23 AAO x 3 Respiratory: on 10 L NC, wean as tolerated. . CT in place in place : Sinus rhythm. on levo 5, epi 2, Milrinone. Patient walked unit with PT discussed with nurse 06 12 post cabg sitting in chair no arrythmias stable hemodynamics discussed with cvicu nurse at 1029 RPT #:[id number] END OF REPORT [facility]ACL 2023-06-13 09:14:00 [facility] ([facility]) Hospitalist Progress Note REPORT#:[id number] REPORT STATUS: Signed REPORT INITIALIZATION DATE:06/13/23 TIME: 913 PATIENT: MINDY CARTER UNIT #: [id number] ROOM/BED: [place] [address] : 54 AGE: 67 SEX: M ATTEND: Kimmie Bacon MD ADM AUTHOR: Kimmie Bacon MD REPT SERVICE DT/TIME: 06/13/23913 * ALL edits or amendments must be made on the electronic/computer document * Subjective Chief complaint: On BiPAP now, BP dropped to 80s over 50s last night, now on vasopressin, Levophed, poor urine output, creatinine worsened, started on Lasix drip, if does not respond to Lasix drip, may need CRRT, chest tube in place, on aspirin, Plavix, amiodarone. Multiple specialty services on board. HPI: This is a 67-year-old male with history of high blood pressure, hyperlipidemia, diabetes mellitus, syncope, neuropathy, alcohol use, liver cirrhosis, stage II CKD presents with shortness of breath that has been increasing since 2 days ago. Patient took extra dose of Aldactone and hydrochlorothiazide which did not help. Patient also reports chest tightness and is currently on 5 L of oxygen per nasal cannula. Patient says that he cannot lie down he gets short of breath when he lies down. He drinks whiskey about 3 shots a day. He has been having increasing edema in bilateral lower extremities. No headaches or dizziness. No other complaints elicited. Objective General VS/I O: Vital Signs: Date Time Temp Pulse Resp B/P B/P Pulse O2 O2 Flow FiO2 Mean Ox Delivery Rate 06/12 0815 98.8 06/12 0900 109/70 84 06/12 0900 80 23 115/61 76 95 06/12 0830 106/70 83 06/12 0830 80 23 114/62 77 95 06/12 0800 104/66 80 06/12 0800 79 24 107/57 72 95 06/12 0741 BiPAP 60 06/12 0730 95/68 76 06/12 0730 79 29 87/72 80 95 03/17 0716 108/60 78 03/17 0716 79 26 104/55 69 95 03/17 0700 102/65 77 03/17 0700 79 36 114/58 73 95 03/17 0645 98/64 75 03/17 0645 79 35 113/56 71 92 03/17 0639 99/66 76 03/17 0639 78 36 111/54 69 86 03/17 0630 78 37 100/45 61 95 03/17 0600 86 38 114/47 65 99 03/17 0532 110/59 77 03/17 0532 92 35 118/51 70 91 03/17 0530 91 36 118/54 71 89 03/17 0500 87 24 119/52 69 03/17 0440 89/52 65 03/17 0440 84 24 112/46 62 93 03/17 0430 84 23 105/46 60 94 03/17 0421 81/50 60 03/17 0421 85 28 105/50 64 98 03/17 0420 79/53 62 03/17 0420 85 29 109/49 64 96 03/17 0400 91/54 67 03/17 0400 85 23 114/52 67 93 03/17 0340 94/55 69 03/17 0340 84 23 116/55 70 98 03/17 0330 83 20 111/54 68 97 03/17 0320 90/55 67 03/17 0320 82 21 111/53 67 97 03/17 0300 87/53 64 03/17 0300 81 25 99/51 64 95 03/17 0300 82 95 60 03/17 0300 95 BiPAP 60 03/17 0240 86/57 67 03/17 0240 81 30 104/53 66 96 03/17 0230 82 32 103/52 65 100 03/17 0224 83/51 61 03/17 0224 82 32 107/55 69 91 03/17 0221 86/53 61 03/17 0221 84 32 96/50 63 88 03/17 0205 82 23 106/52 66 96 03/17 0200 90/53 66 03/17 0200 81 27 103/51 65 96 03/17 0141 87/58 68 03/17 0141 81 33 99/52 65 93 03/17 0130 79 25 99/51 64 100 03/17 0120 83/54 63 03/17 0120 78 27 97/52 64 100 03/17 0100 88/53 65 03/17 0100 76 27 96/52 63 100 03/17 0045 88/52 65 03/17 0045 79 32 106/56 69 98 03/17 0040 81/53 61 03/17 0040 79 31 90/51 62 93 03/17 0030 79 35 106/57 70 96 03/17 0020 88/53 64 03/17 0020 79 28 109/58 71 98 03/16 2340 76 23 109/56 69 97 03/16 2330 76 23 114/57 71 97 03/16 2320 92/54 67 03/16 2320 75 24 114/56 71 97 03/16 2302 77 27 121/59 75 97 03/16 2300 98/54 70 03/16 2300 76 25 122/60 75 97 03/16 2250 75 95 60 03/16 2250 95 BiPAP 60 03/16 2240 92/53 65 03/16 2240 75 23 112/56 70 95 03/16 2230 75 23 113/56 70 95 03/16 2220 88/50 62 03/16 2220 76 30 110/55 68 95 03/16 2200 92/53 67 03/16 2200 76 22 117/56 71 97 03/16 2140 87/53 65 03/16 2140 75 28 117/57 72 96 03/16 2130 76 31 112/55 69 96 03/16 2120 95/55 70 03/16 2120 76 28 121/57 72 96 03/16 2100 102/57 73 03/16 2100 75 23 122/57 73 98 03/16 2040 99/55 71 03/16 2040 75 22 123/57 73 98 03/16 2029 75 28 123/58 73 95 03/16 2019 98/53 68 03/16 2019 75 31 120/58 73 100 03/16 1999 98.0 03/16 1999 Nasal 12 cannula 03/16 1999 101/59 76 03/16 2000 76 32 117/56 71 99 03/16 1940 98/53 69 03/16 1940 75 24 122/58 73 100 03/16 1930 77 34 120/57 73 98 03/16 1925 100 High flow 8 nasal cannula 03/16 1920 96/54 70 03/16 1920 75 23 121/57 73 97 03/16 1900 94/54 67 03/16 1900 75 22 124/60 75 100 06/11 1800 98/54 70 06/11 1800 79 32 121/57 73 95 06/11 1730 80 34 128/60 78 94 06/11 1700 103/57 74 06/11 1640 81 35 129/59 76 94 06/11 1630 80 31 113/51 67 93 06/11 1600 92/51 65 24 hour I O ending at 0700: 06/12 0700 06/11 1900 Intake Total 385 Output Total 490 625 Balance -490 -240 Intake, Oral 385 Output, Chest 340 290 Tube Drainage Output, Urine 150 335 Patient 114.5 kg 109.769 kg Weight Weight Standing scale Measurement Method PATIENT WEIGHT: Weight (lb): 252 Weight (oz): 6.87 Weight (kg): 114.500 Medications: Active Meds + DC'd Last 24 Hrs Ipratropium [place] (ATROVENT) 500 MCG RTQ2H PRN PRN INH Cyanocobalamin (Vitamin B-12 500 mcg tab) 500 MCG DAILY PO Ferrous Sulfate (FERROUS SULFATE) 325 MG DAILY PO Bisacodyl (DULCOLAX) 10 MG ONCE PRN RECTAL Magnesium Hydroxide (MILK OF MAGNESIA) 30 ML ONCE PRN PO Metolazone (metOLazone) 10 MG ONCE ONE PO (DC) Furosemide (LASIX) 240 MG Q24H IV (CKD) Sodium Chloride (SODIUM CHLORIDE 0.9%) 24 ML Vasopressin (VASOSTRICT 20 Unit/NS 100ML) 100 ML ASDIR IV (CKD) Furosemide (LASIX 40 mg/4 mL INJECTION) 40 MG ONCE ONE IV (DC) Albumin Human (ALBUMINAR 5% 12.5GM/250ML) 250 ML ONCE ONE IV (DC) Dopamine HCl/Dextrose (DOPamine 400MG/D5W 250ML) 250 ML ASDIR IV Insulin Glargine (Semglee) 30 UNIT BEDTIME SUBQ Melatonin (Melatonin) 6 MG BEDTIME PO (CAN) Epinephrine (ADRENALIN CHLORIDE) 4 MG ASDIR IV Sodium Chloride (SODIUM CHLORIDE 0.9%) 246 ML Miscellaneous Information (PHARMACY TO DOSE/EVALUATE) 1 EACH ASDIR MISC Melatonin (Melatonin) 6 MG BEDTIME PRN PO Furosemide (LASIX) 40 MG Q12H PO (DC) Clopidogrel Bisulfate (Plavix) 75 MG DAILY PO Polyethylene Glycol (MIRALAX) 17 GM DAILY PO Pantoprazole (PROTONIX) 40 MG DAILY@0600 PO Milrinone Lactate/Dextrose (MILRINONE 20MG/D5W 100ML) 100 ML TITRATE IV (CKD) Aspirin (ASPIRIN) 81 MG DAILY PO Amiodarone HCl (CORDARONE) 200 MG TID PO Docusate Sodium (COLACE) 100 MG BID PO Gabapentin (NEURONTIN) 200 MG BID PO Metoprolol Tartrate (LOPRESSOR) 12.5 MG Q12HR PO Mupirocin (BACTROBAN 2% 22 GM OINTMENT) 1 APPLIC BID NASAL Sennosides (Senna Lax 8.6 MG TABLET) 17.2 MG BEDTIME PO Ipratropium [place] (ATROVENT) 500 MCG RTQ4H INH Albumin Human (ALBUMINAR 25%) 25 GM ASDIR PRN IV (DC) Calcium Chloride (CALCIUM CHLORIDE) 1 GM ASDIR PRN IV Dextrose/Water (DEXTROSE 10% IN WATER) 125 ML ASDIR PRN IV (CKD) Dextrose/Water (DEXTROSE 10% IN WATER) 250 ML ASDIR PRN IV (CKD) Epinephrine (ADRENALIN CHLORIDE) 4 MG ASDIR IV (DC) Dextrose/Water (DEXTROSE 5% WATER) 246 ML Insulin Human Regular (HumuLIN R) 100 UNIT ASDIR IV (CKD) Sodium Chloride (SODIUM CHLORIDE 0.9%) 99 ML Magnesium Sulfate (MAGNESIUM SULFATE 4GM/SWFI 100ML) 100 ML ASDIR PRN IV Magnesium Sulfate (MAGNESIUM SULFATE 2GM/SWFI 50ML) 50 ML ASDIR PRN IV Magnesium Sulfate/Dextrose (MAGNESIUM SULFATE 1GM/D5W 100ML) 100 ML ASDIR PRN IV Nitroglycerin/Dextrose (NITROGLYCERIN 50,000MCG/D5W 250ML) 250 ML ASDIR IV Norepinephrine Bitartrate (NOREPINEPHRINE 8 MG/NS 250 ML) 250 ML TITRATE IV Ondansetron HCl (ZOFRAN) 4 MG Q6H PRN PRN IV Oxycodone HCl (ROXICODONE) 5 MG Q4H PRN PRN PO Oxycodone HCl (ROXICODONE) 10 MG Q4H PRN PRN PO Potassium Chloride (KCL 20MEQ/SWFI 100ML) 100 ML ASDIR PRN IV Sodium Bicarbonate (SODIUM BICARBONATE) 50 MEQ ASDIR PRN IV Sodium Chloride (SODIUM CHLORIDE 0.9%) 1,000 ML .Q20H IV Sodium Chloride (SODIUM CHLORIDE 0.9%) 250 ML Q24H IV Lactulose (LACTULOSE) 10 GM DAILY PRN PRN PO Thiamine HCl (THIAMINE HCL) 100 MG DAILY PO Physical Exam General appearance: alert, awake, oriented Head/Eyes: atraumatic, clear cornea, EOMI, PERRLA ENT: moist mucosal membranes Neck: normal thyroid, supple/no meningismus Cardiovascular: normal heart sounds, regular rate rhythm, no gallop, no murmur , no rub Respiratory: chest tube, hypoxia, on oxygen, aerating well, clear to auscultation Abdomen: non-tender, normal bowel sounds, soft Extremities: edema, no clubbing, no cyanosis Neuro/BUSINESS AREA MANAGER: alert, oriented X 3, CNII-XII intact Skin: dry, intact, no rash Psychiatry: normal affect Results Findings/Data: Laboratory Tests 06/12 06/12 06/12 06/12 1247 0936 0723 0514 Blood Gas Puncture Site L Radial L Radial PA O2 Saturation (90 - 100 %) 96.8 96.6 96.8 ABG pH (7.35 - 7.45) 7.386 7.383 7.419 ABG pCO2 (35.0 - 45 mmHg) 29.9 *L 29.5 *L 26.9 *L ABG pO2 (80 - 100.0 mmHg) 88.5 86.3 84.5 ABG PO2/FiO2 Ratio (mm/Hg) 147.50 140.83 ABG HCO3 (22.0 - 26.0 MMOL/L) 17.9 *L 17.6 *L 17.4 *L ABG Total CO2 18.8 18.5 18.3 ABG Base Excess (-4.0 - 4.0 MMOL/L) -7.1 L -7.5 L -7.1 L ABG Hematocrit (37.5 - 50.7 %) 36 L 35 L 34 L 33 L ABG Hemoglobin (12.5 - 16.9 G/DL) 12.4 L 11.7 L 11.4 L 11.3 L VBG pH (7.33 - 7.45) 7.360 VBG pCO2 (43 - 47 mmHg) 37.3 L VBG pO2 (10 - 50 mmHG) 32.7 VBG HCO3 (22 - 27 MMOL/L) 21.1 L POC VBG Total CO2 22.2 VBG O2 Saturation (60 - 80 %) 61.0 VBG Base Excess (-4.0 - 4.0 MMOL/L) -4.3 L VBG Temperature (F) 98 Sodium (134 - 147 mmol/L) 129 L 129 L 128 L 131 L Potassium (3.4 - 5.0 mmol/L) 5.3 H 5.4 H 5.6 H 5.0 Chloride (100 - 108 mmol/L) 103 99 L 105 99 L Ionized Calcium (1.12 - 1.32 MMOL/L) 1.13 1.14 1.04 L 1.17 Lactic Acid (0.9 - 1.7 mmol/l) 1.1 1.3 1.3 0.6 L O2 Delivery Device BiPAP BiPAP Cannula FiO2 (%) 60.0 60 06/12 0321 Blood Gas Puncture Site Art Line O2 Saturation (90 - 100 %) 96.9 ABG pH (7.35 - 7.45) 7.374 ABG pCO2 (35.0 - 45 mmHg) 32.4 L ABG pO2 (80 - 100.0 mmHg) 90.5 ABG PO2/FiO2 Ratio (mm/Hg) 150.83 ABG HCO3 (22.0 - 26.0 MMOL/L) 18.9 L ABG Total CO2 19.9 ABG Base Excess (-4.0 - 4.0 MMOL/L) -6.3 L ABG Hematocrit (37.5 - 50.7 %) 32 L ABG Hemoglobin (12.5 - 16.9 G/DL) 10.7 L Sodium (134 - 147 mmol/L) 130 L Potassium (3.4 - 5.0 mmol/L) 5.0 Chloride (100 - 108 mmol/L) 102 Ionized Calcium (1.12 - 1.32 MMOL/L) 1.18 Lactic Acid (0.9 - 1.7 mmol/l) 0.9 Temperature (F) 98 O2 Delivery Device BiPAP FiO2 (%) 60 Laboratory Tests 06/12 06/12 06/12 06/12 06/12 1528 1347 1335 1247 1157 Chemistry Sodium (134 - 147 mEq/L) 131 L Potassium (3.4 - 5.0 mEq/L) 5.0 Chloride (100 - 108 mEq/L) 102 Carbon Dioxide (21 - 33 mEq/l) 20 L Anion Gap (0 - 20) 14 BUN (7 - 25 mg/dL) 41 H Creatinine (0.6 - 1.3 mg/dL) 2.4 H POC Creatinine (0.8 - 1.3 mg/dL) 2.2 H Glomerular Filtr Rate (80 - 90) 28.7 L Glucose (77 - 141 mg/dL) 165 H POC Glucose (70 - 110 MG/DL) 153 H 165 H 181 H POC Glucose (mg/dL) (70 - 110 MG/DL) 171 H Calcium (8.0 - 10.5 mg/dL) 9.7 06/12 06/12 06/12 06/12 06/12 0944 0936 0723 0514 0321 Chemistry POC Creatinine (0.8 - 1.3 mg/dL) 2.2 H 2.2 H 2.0 H 1.9 H POC Glucose (mg/dL) (70 - 110 MG/DL) 212 H 235 H 162 H 162 H Lactic Acid (0.4 - 1.9 mmol/L) 1.5 06/12 06/12 06/11 06/11 06/11 0308 0057 2209 2116 1732 Chemistry Sodium (134 - 147 mEq/L) 131 L 131 L Potassium (3.4 - 5.0 mEq/L) 4.9 4.4 Chloride (100 - 108 mEq/L) 101 102 Carbon Dioxide (21 - 33 mEq/l) 19 L 20 L Anion Gap (0 - 20) 16 13 BUN (7 - 25 mg/dL) 33 H 32 H Creatinine (0.6 - 1.3 mg/dL) 2.0 H 1.7 H Glomerular Filtr Rate (80 - 90) 35.7 L 43.4 L Glucose (77 - 141 mg/dL) 170 H 212 H POC Glucose (70 - 110 MG/DL) 160 H 185 H 319 H Calcium (8.0 - 10.5 mg/dL) 9.1 8.9 Magnesium (1.6 - 2.6 mg/dL) 2.46 Total Bilirubin (0.0 - 1.0 mg/dL) 0.60 Direct Bilirubin (0.1 - 0.3 MG/DL) 0.30 Indirect Bilirubin (MG/DL) 0.30 AST (8 - 34 IUnit/L) 37 H ALT (10 - 49 IUnit/L) 12 Total Alk Phosphatase (20 - 125 73 IUnit/L) Total Protein (6.4 - 8.2 g/dL) 6.1 L Albumin (3.4 - 5.0 g/dL) 3.40 06/11 1632 Chemistry POC Glucose (70 - 110 MG/DL) 336 H Laboratory Tests 06/12 0308 Hematology WBC (4.5 - 11.0 x10 3/uL) 25.0 H RBC (4.00 - 5.60 x10 6/uL) 3.38 L Hgb (12.5 - 16.9 g/dL) 10.3 L Hct (37.5 - 50.7 %) 31.6 L MCV (81.0 - 99.0 fL) 93.5 MCH (27.0 - 33.0 pg) 30.5 MCHC (33.0 - 37.0 g/dL) 32.6 L RDW (11.5 - 14.5 %) 14.1 Plt Count (150 - 400 x10 3/uL) 152 MPV (7.0 - 9.0 fL) 12.9 H Neut % (Auto) (56.0 - 77.0 %) 85.4 H Lymph % (Auto) (14.0 - 32.0 %) 3.0 L [place] % (Auto) (4.8 - 9.0 %) 10.6 H Eos % (Auto) (0.3 - 3.7 %) 0.0 L Baso % (Auto) (0.0 - 2.0 %) 0.1 Neut # (Auto) (2.0 - 7.6 x10 3/uL) 21.31 H Lymph # (Auto) (1.0 - 3.8 x10 3/uL) 0.74 L [place] # (Auto) (0.1 - 0.8 x10 3/uL) 2.64 H Eos # (Auto) (0.0 - 0.2 x10 3/uL) 0.01 Baso # (Auto) (0.0 - 0.2 x10 3/uL) 0.03 Abs Immat Gran (auto) (0.00 - 0.03 x10 3/uL) 0.23 H Immature Gran % (0.0 - 2.0 %) 0.9 Nucleated RBC % (0 - 0 %) 0.0 Nucleated RBCs # (Man) (0.0 - 0.1 x10 3/uL) 0.00 Immature Plt Fraction (0.9 - 11.2 %) 11.2 Radiology data: Recent Impressions: RADIOLOGY - XR CHEST 1 V 06/12 728 Report Impression - Status: SIGNED Entered: 06/13/2023 0756 IMPRESSION: 1. Lines and tubes, as above. 2. Otherwise, no significant interval change. Impression By: [email or web address] - Nicolas Farmer M.D. Diagnosis, Assessment Plan Consultants: cardiology, cardiovascular surgery Free Text DxA P Notes Free text DxA P notes: Shortness of breath/hypoxia Differential diagnosis includes CHF Placed on Lasix 40 mg IV every 8 hours DC Cardiology consulted Echo: EF 55 to 60% S/p CABG on 06/10 Milrinone drip DC'd On Lasix drip 06/12 On BiPAP now Multivessel CAD: S/p CABG on 06/10 On aspirin, Plavix, amiodarone On milrinone drip DC'd Chest tube in place Cardiology, CT surgery, ICC on board Hypotension: BP dropped to 80s over 50s overnight 06/11 On Levophed and vasopressin ICC, CT surgery on board NIYA: Likely due to above causes Metolazone x 1 given 06/12 On Lasix drip, if urinary output does not improve, may require CRRT 06/12 Nephrology on board Leukocytosis: Likely reactive Monitor and defer to further management to ICC Leukocytosis improving Diabetes mellitus A1c 8.4% Sliding scale insulin as needed Hypertension Renew medications once they have been updated in the computer Now on pressors for hypotension Check labs in the a.m. Patient does not have a living will or medical power of defense attorney Patient is a full code 06/01 multivessel disease on cath, CTS consulted, patient undergoing preop evaluation for possible CABG. 06/02- pt continues cabg eval, conf Fri, nephro/GI consulted per cts, renal indices wnls today, Abd us confirmed cirrhosis with splenomegaly. 06/03 patient continues preop evaluation for CABG, IV Lasix transition to oral 06/04 CABG preop planning 06/05- CABG planning 06/06 ongoing CABG planning per CTS, blood sugars noted to be elevated in 240s to 300s. Will start on basal insulin 7 units for now daily, continue meal correctional insulin. Patient on glipizide and metformin at home holding for now given CABG eval and and pending surgical date. 06/07- pending CABG eval, d/w Cardiology and started patient on IV lasix 40 mg BID due to increasing wt, symptoms of dyspnea. Monitor I'O's. 06/08- poorly controlled blood sugars noted, increased basal insulin to 10 units daily, add meal time insulin AC, wt based compared to SSI admin, started on 4 Units reg insulin AC. Monitor I/O, contiued on IV lasix 40 mg BID, wt 110 kg today (dry wt reported to be 105 kg). 06/09- optimize insulin for improved glucose control, pending cabg tomorrow 06/10- pending cabg Disposition: S/p CABG on 06/11/2023. On BiPAP now, BP dropped to 80s over 50s last night, now on vasopressin, Levophed, poor urine output, creatinine worsened , started on Lasix drip, if does not respond to Lasix drip, may need CRRT, chest tube in place, on aspirin, Plavix, amiodarone. Multiple specialty services on board. Continue CVICU care. Quality: Gen [facility] Crit Care VTE Prophylaxis VTE prophylaxis initiated: yes Current Medications Current medication review: I attest that the foregoing medication list in the medical record is true, accurate, and complete to the best of my knowledge. Advanced Care Plan 65 or Older Discussed with: patient Discussion included: living will, power of defense attorney, code status at 1550 [facility] #:[id number] END OF REPORT [facility] 2023-06-13 03:56:00 [id number] [address] PATIENT NAME: MINDY CARTER ADMIT DATE: 05/31/23 ACCOUNT NO: [id number] ROOM NO: [id number] AGE: 67 REPORT TYPE: eELECTROCARDIOGRAM REPORT SEX: M ADMITTING PHYSICIAN:Eleonora Mai MD ATTENDING PHYSICIAN:Kimmie Bacon MD Order: [id number] Test Reason : POD2 Test Date/Time Stamp: [place] Jun 13 2023 03:56:15 Blood Pressure : / mmHG Vent. Rate : 086 BPM Atrial Rate : 086 BPM P-R Int : 094 ms QRS Dur : 142 ms QT Int : 410 ms P-R-T Axes : 028 -69 053 degrees QTc Int : 490 ms Sinus rhythm with short ME Left axis deviation Right bundle branch block Inferior infarct , new Anteroseptal infarct (cited on or before 31-MAY-2023) Abnormal ECG When compared with ECG of 12-JUN-2023 02:19, Significant changes have occurred Confirmed by TAO CARMEN MD ([id number]) on 06/14/2023 8:36:33 AM Referred By: Self Referred Confirmed by:TAO CARMEN MD at 0836 PATIENT NAME: MINDY CARTER [facility] 2023-06-12 19:34:00 [facility] Nephrology Progress Note REPORT#:[id number] REPORT STATUS: Signed REPORT INITIALIZATION DATE:06/12/23 TIME: 1933 PATIENT: MINDY CARTER UNIT #: [id number] ROOM/BED: [place] [address] : 54 AGE: 67 SEX: M ATTEND: Kimmie Bacon MD ADM AUTHOR: Nkechi Bacon MD REPT SERVICE DT/TIME: 06/12/231933 * ALL edits or amendments must be made on the electronic/computer document * Subjective Chief complaint: SOB, CP HPI: 67-year-old male known to have hypertension, diabetes mellitus, hyperlipidemia, liver cirrhosis, chronic kidney disease who presented with shortness of breath and chest tightness and on further workup was found to have multivessel disease therefore he was being worked up for possible CABG. He said he had been diagnosed recently with chronic kidney disease but did not have any nausea, orthopnea, cramping, change of taste, involuntary movements, urinary complaints. He denied any chronic use of NSAIDs. He said for most part his blood pressures were controlled at home. 06/11 Patient denying all systemic review. Feeling well. Objective General VS/I O: Vital Signs: Date Time Temp Pulse Resp B/P B/P Pulse O2 O2 Flow FiO2 Mean Ox Delivery Rate 03/17 0915 37.1 03/17 0900 109/70 84 03/17 0900 80 23 115/61 76 95 03/17 0830 106/70 83 03/17 0830 80 23 114/62 77 95 03/17 0800 104/66 80 03/17 0800 79 24 107/57 72 95 03/17 0741 BiPAP 60 03/17 0730 95/68 76 03/17 0730 79 29 87/72 80 95 03/17 0716 108/60 78 03/17 0716 79 26 104/55 69 95 03/17 0700 102/65 77 03/17 0700 79 36 114/58 73 95 03/17 0645 98/64 75 03/17 0645 79 35 113/56 71 92 03/17 0639 99/66 76 03/17 0639 78 36 111/54 69 86 03/17 0630 78 37 100/45 61 95 03/17 0600 86 38 114/47 65 99 03/17 0532 110/59 77 03/17 0532 92 35 118/51 70 91 03/17 0530 91 36 118/54 71 89 03/17 0500 87 24 119/52 69 03/17 0440 89/52 65 03/17 0440 84 24 112/46 62 93 03/17 0430 84 23 105/46 60 94 03/17 0421 81/50 60 03/17 0421 85 28 105/50 64 98 03/17 0420 79/53 62 03/17 0420 85 29 109/49 64 96 03/17 0400 91/54 67 03/17 0400 85 23 114/52 67 93 03/17 0340 94/55 69 03/17 0340 84 23 116/55 70 98 03/17 0330 83 20 111/54 68 97 03/17 0320 90/55 67 03/17 0320 82 21 111/53 67 97 03/17 0300 87/53 64 03/17 0300 81 25 99/51 64 95 03/17 0300 82 95 60 03/17 0300 95 BiPAP 60 03/17 0240 86/57 67 03/17 0240 81 30 104/53 66 96 03/17 0230 82 32 103/52 65 100 03/17 0224 83/51 61 03/17 0224 82 32 107/55 69 91 03/17 0221 86/53 61 03/17 0221 84 32 96/50 63 88 03/17 0205 82 23 106/52 66 96 03/17 0200 90/53 66 03/17 0200 81 27 103/51 65 96 03/17 0141 87/58 68 03/17 0141 81 33 99/52 65 93 03/17 0130 79 25 99/51 64 100 03/17 0120 83/54 63 03/17 0120 78 27 97/52 64 100 03/17 0100 88/53 65 03/17 0100 76 27 96/52 63 100 03/17 0045 88/52 65 03/17 0045 79 32 106/56 69 98 03/17 0040 81/53 61 03/17 0040 79 31 90/51 62 93 03/17 0030 79 35 106/57 70 96 03/17 0020 88/53 64 03/17 0020 79 28 109/58 71 98 03/16 2340 76 23 109/56 69 97 03/16 2330 76 23 114/57 71 97 03/16 2320 92/54 67 03/16 2320 75 24 114/56 71 97 03/16 2302 77 27 121/59 75 97 03/16 2300 98/54 70 03/16 2300 76 25 122/60 75 97 03/16 2250 75 95 60 03/16 2250 95 BiPAP 60 03/16 2240 92/53 65 03/16 2240 75 23 112/56 70 95 03/16 2230 75 23 113/56 70 95 03/16 2220 88/50 62 03/16 2220 76 30 110/55 68 95 03/16 2200 92/53 67 03/16 2200 76 22 117/56 71 97 03/16 2140 87/53 65 03/16 2140 75 28 117/57 72 96 03/16 2130 76 31 112/55 69 96 03/16 2120 95/55 70 03/16 2120 76 28 121/57 72 96 03/16 2100 102/57 73 03/16 2100 75 23 122/57 73 98 03/16 2040 99/55 71 03/16 2040 75 22 123/57 73 98 03/16 2030 75 28 123/58 73 95 03/16 2019 98/53 68 03/16 2020 75 31 120/58 73 100 03/16 1999 36.7 03/16 2000 Nasal 12 cannula 03/16 2000 101/59 76 06/12 1999 76 32 117/56 71 99 06/11 1940 98/53 69 / 1940 75 24 122/58 73 100 /16 1930 77 34 120/57 73 98 06/11 1925 100 High flow 8 nasal cannula 06/11 1920 96/54 70 03/16 1920 75 23 121/57 73 97 /16 1900 94/54 67 /16 1900 75 22 124/60 75 100 /16 1800 98/54 70 /16 1800 79 32 121/57 73 95 /16 1730 80 34 128/60 78 94 /16 1700 103/57 74 /16 1640 81 35 129/59 76 94 /16 1630 80 31 113/51 67 93 /16 1600 92/51 65 /16 1540 82 36 111/51 67 93 / 1530 81 33 121/54 73 94 06/11 1508 94 High flow 10 nasal cannula 06/11 1501 80 34 123/56 73 95 06/11 1420 80 36 122/55 72 95 /16 1400 97/65 76 06/11 1400 81 30 127/59 76 93 16 1340 79 23 127/55 72 97 16 1330 79 23 121/53 69 95 16 1300 80 35 113/60 76 91 /16 1230 80 30 124/56 74 95 /16 1200 99/56 69 /16 1200 79 34 123/56 74 93 06/11 1136 97 High flow 12 nasal cannula 06/11 1120 79 33 124/54 72 95 24 hour I O ending at 0700: 06/12 0700 06/11 1900 Intake Total 385 Output Total 490 625 Balance -490 -240 Intake, Oral 385 Output, Chest 340 290 Tube Drainage Output, Urine 150 335 Patient 114.5 kg 109.769 kg Weight Weight Standing scale Measurement Method PATIENT WEIGHT: Weight (lb): 252 Weight (oz): 6.87 Weight (kg): 114.500 Physical Exam General appearance: alert, awake, no acute distress Head/eyes: atraumatic, EOMI ENT: moist mucous membranes, normal nose Neck: no JVD, no lymphadenopathy Cardiovascular: normal heart sounds, regular rate and rhythm Respiratory: aerating well, clear to auscultation Abdomen: non-tender, soft Genitourinary: no bladder distention, no flank pain Extremities: no edema, no gangrene, no swelling Diagnosis, Assessment Plan Free Text A P: 67-year-old male known to have hypertension, diabetes mellitus, hyperlipidemia, liver cirrhosis, chronic kidney disease who presented with shortness of breath and chest tightness and on further workup was found to have multivessel disease therefore he was being worked up for possible CABG. He said he had been diagnosed recently with chronic kidney disease but did not have any nausea, orthopnea, cramping, change of taste, involuntary movements, urinary complaints. He denied any chronic use of NSAIDs. He said for most part his blood pressures were controlled at home. Nephrology following for: 1. CKD:: Most recent creatinine was staying in normal range therefore plan is to keep mean arterial pressure above 65 and avoid nephrotoxic agents. 2. Hypertension: Mostly controlled therefore plan is to continue same. 3. Hypervolemia: Plan is to monitor input and output closely and treat with Lasix if needed. His echocardiogram showed an EF of 55 to 60%. 4. Chest pain/shortness of breath: He had been worked up with left heart cath and received contrast recently. Plan was to monitor closely for contrast- induced nephropathy and keep hydrated. 06/11 1. CKD:: Renal function stable therefore plan is to keep mean arterial pressure above 65 and avoid nephrotoxic agents. 2. Hypotension:He is post op CABG and is requiring pressor support, plan to monitor and keep MAP>65. 3. Hypervolemia: He is post op CABG and has recieved fluids during surgey, plan to monitor I/O and give lasix as tolerated. 4. Chest pain/shortness of breath: s/p CABG 06/10. Consultants: cardiology, cardiovascular surgery at 1104 RPT #:[id number] END OF REPORT [facility] 2023-06-12 14:00:00 [id number] [address] PATIENT NAME: MINDY CARTER ADMIT DATE: 05/31/23 ACCOUNT NO: [id number] ROOM NO: [facility] AGE: 67 REPORT TYPE: OPERATIVE REPORT SEX: M ADMITTING PHYSICIAN:Eleonora Mai MD ATTENDING PHYSICIAN:Kimmie Bacon MD OPERATION DATE: 06/11/2023 PREOPERATIVE DIAGNOSES: 1. Coronary artery disease. 2. Liver cirrhosis. 3. Non ST elevation myocardial infarction. POSTOPERATIVE DIAGNOSES: 1. Coronary artery disease. 2. Liver cirrhosis. 3. Non ST elevation myocardial infarction. PROCEDURES: 1. Coronary artery bypass graft surgery x3 (COSTA to LAD, saphenous vein to diagonal, saphenous vein to marginal). 2. Endoscopic vein harvesting (right greater saphenous vein). 3. Amputation of left atrial appendage. 4. Posterior pericardiotomy. SURGEON: Jeremiah Martel M.D. MAINTENANCE EQUIPMENT OPERATOR: Seven Bradshaw. ANESTHESIOLOGIST: Dr. Berg. ANESTHESIA: General endotracheal anesthesia. ESTIMATED BLOOD LOSS: 100 mL. INDICATIONS: Mr. Carter is a 63-year-old gentleman with severe triple-vessel coronary artery disease and liver cirrhosis, chronic kidney disease, who presented to the hospital with chest pain. He was ruled in for non-ST elevation MN. Coronary angiogram showed severe coronary artery disease. After due preop counseling, he was brought to the operating room today for surgical revascularization. FINDINGS: 1. Vein was harvested from the right leg using endoscopic vein harvest technique, vein was of satisfactory quality, measuring about 4 mm in size. 2. Normal sternum. 3. Good quality COSTA measuring 2 mm. Excellent flow. 4. Normal pericardium without any intrapericardial adhesions and minimal intrapericardial fluid. PATIENT NAME: MINDY CARTER 5. LAD 2 mm, good quality artery. 6. Diagonal 2 mm, good quality artery. 7. Marginal 2 mm, good quality artery. 8. Left atrial appendage was amputated half a cm from the base. This was then repaired with two layers of running pledgeted 4-0 Prolene suture. 9. Posterior pericardiotomy was performed by making a cruciate incision in the posterior pericardium. DESCRIPTION OF PROCEDURE: Mr. Carter was identified in the preoperative holding area and brought to the OR, placed supine on the operating table. After induction of general endotracheal anesthesia, Marques catheter, radial arterial line, and IV antibiotics were placed. The patient's anterior torso and both legs were prepped and draped in standard surgical fashion. Vein was harvested from the right leg using endoscopic vein harvest technique. Following harvesting, subcutaneous tissue was closed with 2-0 Vicryl and skin with 4-0 Vicryl. Simultaneously, median sternotomy was performed. Left internal mammary artery was harvested. The patient was heparinized. Pericardium was opened longitudinally. Pericardial well was created. Cardiopulmonary bypass was instituted using ascending aorta and 3-stage cannula in the right atrium. The patient was cooled to 34 degrees centigrade. Crossclamp was applied and the heart was arrested with 1.5 antegrade cold blood cardioplegia. Cardioplegia was repeated at interval of 10 minutes all throughout duration of cross-clamp. We began by exposing the marginal. This was good quality artery, measuring 2 mm in size. Arteriotomy was performed with a [place] blade and extended with Pulido scissors. A segment of previously harvested reverse saphenous vein was anastomosed in end-to-side manner using 7-0 Prolene suture. Vein graft to marginal was brought along the left side of the heart and sized. Aortotomy was performed on the aorta in the left aspect of the aorta using 4 mm punch. Proximal anastomosis of marginal graft was then performed using running 6-0 Prolene suture. Left atrial appendage was amputated half a cm from the base. This was then repaired with two layers of running pledgeted 4-0 Prolene suture. Cruciate incision was made in the posterior pericardium. Rewarming was commenced at this stage. Next, the diagonal was explored. This was a good quality artery, measuring 2 mm size. Arteriotomy was performed with a [place] blade and extended with Pulido scissors. A segment of previously harvested reverse saphenous vein was anastomosed in end-to-side manner using 7-0 Prolene suture. Vein graft to diagonal was brought along the left side of the heart and sized. Aortotomy was performed on the left aspect of the aorta using 4 mm punch. Proximal anastomosis of the diagonal graft was then performed running 6-0 Prolene suture. Finally, LAD was explored. This was good quality artery measuring 2 mm in size. Arteriotomy was performed with a [place] blade and extended with Pulido scissors. COSTA was anastomosed in end-to-side manner using running 8-0 Prolene suture. COSTA pedicle tacked to epicardium using two interrupted 6-0 Prolene suture. A slit was made in the pericardium, left aspect, so as to accommodate the COSTA. Careful de-aeration was performed and the crossclamp was released. One ventricular wire was placed. A 28-Surinamese chest tube was placed in the mediastinum and 28-Surinamese angled chest tube was placed in the left pleural space. Once the patient was at temperature, he was weaned off cardiopulmonary bypass with minimal inotropic support. Heparin was reversed with protamine. Decannulation was uneventful. After confirming hemostasis, the chest was closed in layers using stainless wires for the sternum, #1 Vicryl for the fascia, 2-0 Vicryl for the subcutaneous tissue and 4-0 Vicryl for the skin. The patient was transferred to intensive care unit, intubated in stable condition. PATIENT NAME: MINDY CARTER Dictated By: Jeremiah Martel MD Date Dictated: 06/12/2023 14:00:12 Date Transcribed: 06/12/2023 18:30:11 SHRADDHA/SHIRA Receipt ID: [id number] Authenticated and Edited by Nathaniel Martel MD On 06/13/23 6:28:19 AM at 0631 PATIENT NAME: MINDY CARTER [facility] 2023-06-12 10:54:00 [facility] Cardiology Progress Note REPORT#:[id number] REPORT STATUS: Signed REPORT INITIALIZATION DATE:06/12/23 TIME: 105 PATIENT: MINDY CARTER UNIT #: [id number] ROOM/BED: [place] [address] : 54 AGE: 67 SEX: M ATTEND: Kimmie Bacon MD ADM AUTHOR: Geovani Hogan MD REPT SERVICE DT/TIME: 06/12/23 1054 * ALL edits or amendments must be made on the electronic/computer document * Objective General VS/I O: 24 hour I O ending at 0700: 06/11 0700 06/10 1900 Intake Total 2375.00 Output Total 891 1600 Balance 1484.00 -1600 Intake, IV 2135.00 Intake, Oral 240 Output, Chest 521 Tube Drainage Output, Urine 370 1600 Patient 110 kg Weight Weight Standing scale Measurement Method Vital Signs: Date Time Temp Pulse Resp B/P B/P Pulse O2 O2 Flow FiO2 Mean Ox Delivery Rate 03/16 0701 77 33 111/45 63 96 03/16 0700 Nasal 12 cannula 03/16 0700 92/54 68 03/16 0700 76 31 111/46 63 96 03/16 0640 98/54 70 03/16 0640 79 28 110/47 64 97 03/16 0630 80 32 110/45 63 95 03/16 0621 93/65 74 03/16 0621 80 30 111/47 65 97 03/16 0601 99/56 72 03/16 0601 84 33 114/46 64 94 03/16 0600 83 28 117/45 65 95 03/16 0544 104/59 76 03/16 0544 83 31 132/52 73 94 03/16 0530 79 31 103/46 66 03/16 0520 99/56 74 03/16 0520 82 27 127/49 67 96 03/16 0500 99/57 72 03/16 0500 84 20 128/49 67 100 03/16 0440 87/51 64 03/16 0440 84 30 116/48 66 100 03/16 0430 84 21 120/47 64 100 03/16 0420 92/54 67 03/16 0420 85 20 120/45 63 100 03/16 0400 36.4 03/16 0400 93/54 69 03/16 0400 86 23 123/46 64 100 03/16 0348 86 21 121/46 64 100 03/16 0341 86 23 124/47 65 100 03/16 0340 98/54 72 03/16 0340 87 21 124/47 64 100 03/16 0325 89 99 60 03/16 0325 99 BiPAP 60 03/16 0320 81 29 95/52 66 90 03/16 0311 81 25 101/42 59 91 03/16 0300 101/56 73 03/16 0300 90 30 109/48 65 99 03/16 0241 90 23 108/45 62 99 03/16 0240 94/53 70 03/16 0240 91 21 110/46 63 99 03/16 0220 92/55 69 03/16 0220 90 30 103/45 61 99 03/16 0211 90 24 105/46 62 99 03/16 0200 90/52 66 03/16 0200 90 24 101/45 59 100 03/16 0141 87 23 102/44 59 99 03/16 0140 89/50 65 03/16 0140 90 23 103/44 60 99 03/16 0120 92/53 68 03/16 0120 87 36 97/44 59 94 03/16 0111 92 25 101/48 62 99 03/16 0100 94/50 65 03/16 0100 92 27 101/48 62 99 03/16 0041 92 31 106/49 64 100 03/16 0040 96/51 68 03/16 0040 91 30 109/51 66 100 03/16 0020 88/50 63 03/16 0020 92 27 98/46 60 99 03/16 0019 88/50 64 03/16 0019 94 27 99/46 60 99 03/16 0011 97 104/49 63 99 03/16 0000 83/51 63 03/16 0000 98 28 95/47 60 99 03/15 2348 97 99 60 03/15 2348 99 BiPAP 60 03/15 2341 96 26 95/45 58 98 03/15 2340 86/49 62 03/15 2340 95 30 96/45 59 97 03/15 2320 82/52 62 03/15 2320 100 29 86/43 55 93 03/15 2311 100 29 86/43 55 95 03/15 2300 89/50 64 03/15 2300 100 28 91/46 58 96 03/15 2243 89/50 63 03/15 2243 100 29 93/48 60 95 03/15 2241 100 28 94/47 60 93 03/15 2240 90/55 68 03/15 2240 100 28 96/49 62 94 03/15 2220 94/55 67 03/15 2220 100 30 103/52 66 94 03/15 2211 98 23 105/51 66 95 03/15 2200 95/55 70 03/15 2200 99 33 109/54 70 92 03/15 2145 97 High flow 12 68 nasal cannula 03/15 2141 97 33 111/55 71 93 03/15 2140 96/54 69 03/15 2140 96 23 109/54 70 93 03/15 2121 94/57 69 03/15 2121 93 29 110/55 70 93 03/15 2111 92 35 131/56 78 95 03/15 2101 126/71 94 03/15 2101 91 42 137/54 79 97 06/10 2099 High flow 12 nasal cannula 06/10 2099 91 36 139/51 98 06/10 2042 108/57 77 06/10 2042 82 121/54 73 89 06/11 2039 91 Ventilator 100 06/11 2039 81 91 100 06/10 1150 96 Nasal 2 cannula 06/10 1123 36.7 93 18 119/74 89.2 99 PATIENT WEIGHT: Weight (lb): 242 Weight (oz): 8.14 Weight (kg): 110.000 Medications: Active Meds + DC'd Last 24 Hrs Ipratropium [place] (ATROVENT) 500 MCG RTQ2H PRN PRN INH Cyanocobalamin (Vitamin B-12 500 mcg tab) 500 MCG DAILY PO Ferrous Sulfate (FERROUS SULFATE) 325 MG DAILY PO Bisacodyl (DULCOLAX) 10 MG ONCE PRN RECTAL Magnesium Hydroxide (MILK OF MAGNESIA) 30 ML ONCE PRN PO Atorvastatin Calcium (LIPITOR) 40 MG 2100 PO (CAN) Furosemide (LASIX 20MG INJ) 20 MG ONCE ONE IV (DC) Clopidogrel Bisulfate (Plavix) 75 MG DAILY PO Polyethylene Glycol (MIRALAX) 17 GM DAILY PO Albumin Human (ALBUMINAR 5% 12.5GM/250ML) 250 ML ONCE ONE IV (DC) Pantoprazole (PROTONIX) 40 MG DAILY@0600 PO Milrinone Lactate/Dextrose (MILRINONE 20MG/D5W 100ML) 100 ML TITRATE IV (CKD) Aspirin (ASPIRIN) 81 MG DAILY PO Albumin Human (ALBUMINAR 5% 12.5GM/250ML) 250 ML ONCE ONE IV (DC) Albumin Human (ALBUMINAR 5% 12.5GM/250ML) 250 ML ONCE ONE IV (DC) Fentanyl Citrate (SUBLIMAZE) 25 MCG ONCE ONE IV (DC) Fentanyl Citrate (SUBLIMAZE) 25 MCG ONCE ONE IV (DC) Amiodarone HCl (CORDARONE) 200 MG TID PO Docusate Sodium (COLACE) 100 MG BID PO Gabapentin (NEURONTIN) 200 MG BID PO Metoprolol Tartrate (LOPRESSOR) 12.5 MG Q12HR PO Mupirocin (BACTROBAN 2% 22 GM OINTMENT) 1 APPLIC BID NASAL Sennosides (Senna Lax 8.6 MG TABLET) 17.2 MG BEDTIME PO Fentanyl Citrate (SUBLIMAZE) 0 .STK-MED ONE IV (DC) Ipratropium [place] (ATROVENT) 500 MCG RTQ4H INH Acetaminophen (TYLENOL) 650 MG Q4H PRN PRN PO Acetaminophen (TYLENOL) 650 MG Q4H PRN PRN RECTAL Albumin Human (ALBUMINAR 25%) 25 GM ASDIR PRN IV Calcium Chloride (CALCIUM CHLORIDE) 1 GM ASDIR PRN IV Cefazolin Sodium (KEFZOL OR ANCEF) 6 GM ONCE ONE IV (CKD) Sodium Chloride (SODIUM CHLORIDE 0.9%) 500 ML Dextrose/Water (DEXTROSE 10% IN WATER) 125 ML ASDIR PRN IV (CKD) Dextrose/Water (DEXTROSE 10% IN WATER) 250 ML ASDIR PRN IV (CKD) Epinephrine (ADRENALIN CHLORIDE) 4 MG ASDIR IV Dextrose/Water (DEXTROSE 5% WATER) 246 ML Glucagon (GLUCAGON) 1 MG ASDIR PRN IM (CAN) Insulin Human Regular (HumuLIN R) 100 UNIT ASDIR IV (CKD) Sodium Chloride (SODIUM CHLORIDE 0.9%) 99 ML Magnesium Sulfate (MAGNESIUM SULFATE 4GM/SWFI 100ML) 100 ML ASDIR PRN IV Magnesium Sulfate (MAGNESIUM SULFATE 2GM/SWFI 50ML) 50 ML ASDIR PRN IV Magnesium Sulfate/Dextrose (MAGNESIUM SULFATE 1GM/D5W 100ML) 100 ML ASDIR PRN IV Nitroglycerin/Dextrose (NITROGLYCERIN 50,000MCG/D5W 250ML) 250 ML ASDIR IV Norepinephrine Bitartrate (NOREPINEPHRINE 8 MG/NS 250 ML) 250 ML TITRATE IV Ondansetron HCl (ZOFRAN) 4 MG Q6H PRN PRN IV Oxycodone HCl (ROXICODONE) 5 MG Q4H PRN PRN PO Oxycodone HCl (ROXICODONE) 10 MG Q4H PRN PRN PO Potassium Chloride (KCL 20MEQ/SWFI 100ML) 100 ML ASDIR PRN IV Sodium Bicarbonate (SODIUM BICARBONATE) 50 MEQ ASDIR PRN IV Sodium Chloride (SODIUM CHLORIDE 0.9%) 1,000 ML .Q20H IV Sodium Chloride (SODIUM CHLORIDE 0.9%) 250 ML Q24H IV Calcium Chloride (CALCIUM CHLORIDE) 0 .STK-MED ONE IV (DC) Milrinone Lactate/Dextrose (MILRINONE 20MG/D5W 100ML) 100 ML .STK-MED ONE IV (DC) Fentanyl Citrate (SUBLIMAZE) 0 .STK-MED ONE IV (DC) Dexamethasone Sodium Phosphate (DECADRON) 0 .STK-MED ONE .ROUTE (DC) Etomidate (AMIDATE) 0 .STK-MED ONE IV (DC) Fentanyl Citrate (SUBLIMAZE) 0 .STK-MED ONE IV (DC) Fentanyl Citrate (SUBLIMAZE) 0 .STK-MED ONE .ROUTE (DC) Ondansetron HCl (ZOFRAN) 0 .STK-MED ONE .ROUTE (DC) Rocuronium [place] (ZEMURON) 0 .STK-MED ONE IV (DC) Albumin Human (ALBUMINAR-25%) 100 ML .STK-MED ONE IV (DC) Sodium Chloride (SODIUM CHLORIDE 0.9%) 250 ML .STK-MED ONE IV (DC) Epinephrine (ADRENALIN CHLORIDE) 0 .STK-MED ONE .ROUTE (DC) Heparin Sodium (HEPARIN SODIUM) 0 .STK-MED ONE .ROUTE (DC) Insulin Human Regular (HumuLIN R 100 UNITS/NS 100ML) 100 ML .STK-MED ONE IV (DC) Norepinephrine Bitartrate (NOREPINEPHRINE 8 MG/NS 250 ML) 250 ML .STK-MED ONE IV (DC) Aminocaproic Acid (AMICAR) 0 .STK-MED ONE .ROUTE (DC) Calcium Chloride (CALCIUM CHLORIDE) 0 .STK-MED ONE IV (DC) Magnesium Sulfate (MAGNESIUM SULFATE) 0 .STK-MED ONE .ROUTE (DC) Nitroglycerin/Dextrose (NITROGLYCERIN 50,000MCG/D5W 250ML) 250 ML .STK-MED ONE IV (DC) Protamine Sulfate (PROTAMINE SULFATE) 0 .STK-MED ONE IV (DC) Ropivacaine (NAROPIN 0.5% 150 MG/30mL) 0 .STK-MED ONE .ROUTE (DC) Sodium Chloride (SODIUM CHLORIDE 0.9%) 100 ML .STK-MED ONE IV (DC) Albumin Human (ALBUMINAR-25%) 100 ML .STK-MED ONE IV (DC) Heparin Sodium (HEPARIN SODIUM) 0 .STK-MED ONE .ROUTE (DC) Lidocaine HCl (XYLOCAINE IV) 0 .STK-MED ONE IV (DC) Magnesium Sulfate (MAGNESIUM SULFATE) 0 .STK-MED ONE IV (DC) Phenylephrine HCl (MEME-SYNEPHRINE 10MG/ML AMP) 0 .STK-MED ONE .ROUTE (DC ) Sodium Bicarbonate (SODIUM BICARBONATE) 0 .STK-MED ONE IV (DC) Sodium Chloride (SODIUM CHLORIDE 0.9%) 100 ML .STK-MED ONE IV (DC) Cefazolin Sodium (KEFZOL OR ANCEF) 0 .STK-MED ONE .ROUTE (DC) Sodium Chloride (SODIUM CHLORIDE 0.9%) 250 ML .STK-MED ONE IV (DC) Vancomycin HCl (Vancomycin 1,500 mg Inj (B2)) 0 .STK-MED ONE IV (DC) Insulin Glargine (Semglee) 15 UNIT DAILY SUBQ (DC) Verapamil HCl (ISOPTIN) 16.6 MG .Q24H IV (DC) Heparin Sodium (Porcine) (HEPARIN SODIUM) 1,660 UNIT Sodium Bicarbonate (SODIUM BICARBONATE) 0.7 ML Nitroglycerin/Dextrose (NITROGLYCERIN 50MG/D5W 250ML) 8.3 MG Lactated Ringer's (LACTATED RINGERS) 949.5 ML Insulin Human Lispro (HUMALOG) 5 UNIT AC SUBQ (DC) Acetaminophen (TYLENOL EXTRA STRENGTH) 1,000 MG PREOP ONCALL PO (DC) Gabapentin (NEURONTIN) 200 MG PREOP ONCALL PO (DC) Furosemide (LASIX 40 mg/4 mL INJECTION) 40 MG BID IV (DC) Gabapentin (NEURONTIN) 100 MG BEDTIME PO (DC) Docusate Sodium (COLACE) 100 MG DAILY PRN PRN PO (DC) Polyethylene Glycol (MIRALAX) 17 GM DAILY PRN PRN PO (DC) Lactulose (LACTULOSE) 10 GM DAILY PRN PRN PO Multivitamins (TAB-A-KANDI) 1 TAB DAILY PO (DC) Thiamine HCl (THIAMINE HCL) 100 MG DAILY PO Aspirin (ASPIRIN) 81 MG DAILY PO (DC) Carvedilol (COREG) 12.5 MG Q12HR PO (DC) Amlodipine Besylate (NORVASC) 10 MG BEDTIME PO (DC) Atorvastatin Calcium (LIPITOR) 40 MG 2100 PO (DC) Doxazosin Mesylate (CARDURA) 2 MG BEDTIME PO (DC) Insulin Human Lispro (HUMALOG) 0 AC HS SUBQ (DC) Acetaminophen (TYLENOL) 650 MG Q4H PRN PRN PO (DC) Dextrose/Water (DEXTROSE 10% IN WATER) 125 ML ASDIR PRN IV (DC) Dextrose/Water (DEXTROSE 10% IN WATER) 250 ML ASDIR PRN IV (DC) Glucagon (GLUCAGON) 1 MG ASDIR PRN IM (DC) Hydralazine HCl (APRESOLINE) 10 MG Q6H PRN PRN IV (DC) Ondansetron HCl (ZOFRAN) 4 MG Q4H PRN PRN IV (DC) Nitroglycerin (NITROSTAT) 0.4 MG Q5M PRN PRN SL (DC) Heparin Sodium (HEPARIN 5000 UNITS/ML) 9,000 UNIT ASDIR PRN PRN IV (DC) Heparin Sodium (HEPARIN 5000 UNITS/ML) 4,500 UNIT ASDIR PRN PRN IV (DC) Heparin Sodium (Porcine) (HEPARIN 25,000 UNITS/ 1/2NS 500ML) 500 ML ASDIR IV (DC) Physical Exam General appearance: awake Neck: no bruit/NL carotids, no JVD Cardiovascular: CV assessment: regular rate and rhythm, BP pulses = bilaterally, normal heart sounds, no gallop, no murmur, no rub, no thrill Respiratory: clear to auscultation Abdomen: soft, non-tender, normal bowel sounds, no distention, no guarding, no mass/organomegaly, no pulsatile mass, no rebound Neuro/BUSINESS AREA MANAGER: no motor deficits Results Findings/Data: Laboratory Tests 06/11 06/11 06/11 06/10 0632 0400 0245 2308 Blood Gas Puncture Site Art Line PA Art Line Art Line O2 Saturation (90 - 100 %) 95.6 98.2 92.2 ABG pH (7.35 - 7.45) 7.361 7.349 L 7.367 ABG pCO2 (35.0 - 45 mmHg) 34.9 L 40.2 37.0 ABG pO2 (80 - 100.0 mmHg) 80.1 112.5 H 66.0 L ABG PO2/FiO2 Ratio (mm/Hg) 187.50 ABG HCO3 (22.0 - 26.0 MMOL/L) 19.9 L 22.1 21.2 L ABG Total CO2 21.0 23.4 22.4 ABG Base Excess (-4.0 - 4.0 MMOL/L) -5.6 L -3.5 -4.1 L ABG Hematocrit (37.5 - 50.7 %) 31 L 33 L 31 L 35 L ABG Hemoglobin (12.5 - 16.9 G/DL) 10.6 L 11.4 L 10.6 L 11.9 L VBG pH (7.33 - 7.45) 7.322 L VBG pCO2 (43 - 47 mmHg) 44.0 VBG pO2 (10 - 50 mmHG) 45.0 VBG HCO3 (22 - 27 MMOL/L) 22.8 POC VBG Total CO2 24.1 VBG O2 Saturation (60 - 80 %) 77.0 VBG Base Excess (-4.0 - 4.0 MMOL/L) -3.3 Sodium (134 - 147 mmol/L) 136 139 139 139 Potassium (3.4 - 5.0 mmol/L) 4.2 4.2 4.1 3.8 Chloride (100 - 108 mmol/L) 107 106 108 110 H Ionized Calcium (1.12 - 1.32 MMOL/L) 1.23 1.31 1.33 H 1.31 Lactic Acid (0.9 - 1.7 mmol/l) 1.5 1.7 1.7 2.7 H Temperature (F) 98 97.5 97.7 O2 Delivery Device 12L HFNC BiPAP BiPAP Cannula FiO2 (%) 60.0 60 PEEP (cmH2O) 6 5 Pressure Support (cmH2O) 12 12 06/10 2100 1954 190 Blood Gas Puncture Site Art Line Art Line O2 Saturation (90 - 100 %) 92.5 93.5 99.1 99.9 ABG pH (7.35 - 7.45) 7.390 7.371 7.424 7.460 H ABG pCO2 (35.0 - 45 mmHg) 36.4 39.7 32.5 L 38.2 ABG pO2 (80 - 100.0 mmHg) 65.5 L 70.5 L 134.0 H 235.3 *H ABG PO2/FiO2 Ratio (mm/Hg) 131.00 70.50 ABG HCO3 (22.0 - 26.0 MMOL/L) 22.1 23.0 21.3 L 27.2 H ABG Total CO2 23.2 24.2 22.3 28.4 ABG Base Excess (-4.0 - 4.0 MMOL/L) -2.9 -2.2 -2.6 3.2 ABG Hematocrit (37.5 - 50.7 %) 35 L 42 27 L 30 L ABG Hemoglobin (12.5 - 16.9 G/DL) 12.1 L 14.4 9.0 L 10.1 L Mabel Test N/A Sodium (134 - 147 mmol/L) 139 139 139 137 Potassium (3.4 - 5.0 mmol/L) 3.9 4.6 4.6 5.4 H Chloride (100 - 108 mmol/L) 107 104 109 H 102 Ionized Calcium (1.12 - 1.32 MMOL/L) 1.42 H 1.47 H 1.29 1.03 L Lactic Acid (0.9 - 1.7 mmol/l) 2.4 H 2.3 H 2.1 H 1.0 Temperature (F) 99 O2 Delivery Device Adult Vent + Vent Mode PC/PS AC Vent Rate (/MIN) 20 FiO2 (%) 50 100 Tidal Volume (ml) 450 PEEP (cmH2O) 5 8 Pressure Support (cmH2O) 12 06/10 06/10 06/10 1845 1817 1750 Blood Gas O2 Saturation (90 - 100 %) 100.0 99.4 98.8 ABG pH (7.35 - 7.45) 7.428 7.404 7.371 ABG pCO2 (35.0 - 45 mmHg) 41.4 34.4 L 35.6 ABG pO2 (80 - 100.0 mmHg) 431.5 *H 156.7 H 126.6 H ABG HCO3 (22.0 - 26.0 MMOL/L) 27.4 H 21.5 L 20.6 L ABG Total CO2 28.6 22.6 21.7 ABG Base Excess (-4.0 - 4.0 MMOL/L) 2.7 -2.7 -4.1 L ABG Hematocrit (37.5 - 50.7 %) 30 L 30 L 30 L ABG Hemoglobin (12.5 - 16.9 G/DL) 10.1 L 10.4 L 10.0 L Sodium (134 - 147 mmol/L) 137 140 142 Potassium (3.4 - 5.0 mmol/L) 5.0 3.5 3.1 L Chloride (100 - 108 mmol/L) 103 111 H 112 H Ionized Calcium (1.12 - 1.32 MMOL/L) 1.00 L 0.96 L 0.94 L Lactic Acid (0.9 - 1.7 mmol/l) < 0.3 L 0.6 L 0.5 L Laboratory Tests 06/11 06/11 06/11 06/11 06/10 0632 0400 0245 0209 2352 Chemistry Sodium (134 - 147 mEq/L) 138 Potassium (3.4 - 5.0 mEq/L) 4.1 Chloride (100 - 108 mEq/L) 107 Carbon Dioxide (21 - 33 mEq/l) 21 Anion Gap (0 - 20) 14 BUN (7 - 25 mg/dL) 20 Creatinine (0.6 - 1.3 mg/dL) 1.3 POC Creatinine (0.8 - 1.3 mg/dL) 1.1 1.1 1.2 Glomerular Filtr Rate (80 - 90) 59.8 L Glucose (77 - 141 mg/dL) 238 H POC Glucose (70 - 110 MG/DL) 275 H POC Glucose (mg/dL) (70 - 110 MG/DL) 228 H 208 H 223 H Calcium (8.0 - 10.5 mg/dL) 9.4 Magnesium (1.6 - 2.6 mg/dL) 2.41 Total Bilirubin (0.0 - 1.0 mg/dL) 1.40 H Direct Bilirubin (0.1 - 0.3 MG/DL) 0.70 H Indirect Bilirubin (MG/DL) 0.70 AST (8 - 34 IUnit/L) 52 H ALT (10 - 49 IUnit/L) 26 Total Alk Phosphatase (20 - 125 IUnit/L) 74 Total Protein (6.4 - 8.2 g/dL) 5.5 L Albumin (3.4 - 5.0 g/dL) 3.10 L 06/10 06/10 06/10 06/10 06/10 2308 2139 2131 2100 2047 Chemistry Sodium (134 - 147 mEq/L) 137 Potassium (3.4 - 5.0 mEq/L) 4.6 Chloride (100 - 108 mEq/L) 103 Carbon Dioxide (21 - 33 mEq/l) 24 Anion Gap (0 - 20) 15 BUN (7 - 25 mg/dL) 21 Creatinine (0.6 - 1.3 mg/dL) 1.1 POC Creatinine (0.8 - 1.3 mg/dL) 1.0 1.0 1.0 Glomerular Filtr Rate (80 - 90) 73.1 L Glucose (77 - 141 mg/dL) 298 H POC Glucose (70 - 110 MG/DL) 288 H POC Glucose (mg/dL) (70 - 110 MG/DL) 265 H 264 H 301 H Calcium (8.0 - 10.5 mg/dL) 10.6 H Magnesium (1.6 - 2.6 mg/dL) 2.81 H 06/10 1906 1845 1817 1750 Chemistry POC Creatinine (0.8 - 1.3 mg/dL) 0.8 0.9 0.8 0.7 L 0.6 L POC Glucose (mg/dL) (70 - 110 MG/DL) 250 H 202 H 172 H 143 H 128 H 06/10 06/10 1525 1123 Chemistry POC Glucose (70 - 110 MG/DL) 180 H 218 H Laboratory Tests 06/119 2046 1951 190 1847 Coagulation INR (0.8 - 1.2) 1.2 1.3 H PTT ([place]) (25.0 - 39.5 Seconds) 31.2 35.8 PT Patient/Control Mix (9.3 - 12.9 13.2 H 14.2 H SECONDS) Activated Coag Time (74 - 137 SEC) 141 H 590 H 650 H 06/10 1751 Coagulation Activated Coag Time (74 - 137 SEC) 574 H 158 H Laboratory Tests 06/11 Hematology WBC (4.5 - 11.0 x10 3/uL) 27.6 H 35.5 H RBC (4.00 - 5.60 x10 6/uL) 3.31 L 3.69 L Hgb (12.5 - 16.9 g/dL) 10.1 L 11.1 L Hct (37.5 - 50.7 %) 30.3 L 34.0 L MCV (81.0 - 99.0 fL) 91.5 92.1 MCH (27.0 - 33.0 pg) 30.5 30.1 MCHC (33.0 - 37.0 g/dL) 33.3 32.6 L RDW (11.5 - 14.5 %) 13.2 13.5 Plt Count (150 - 400 x10 3/uL) 210 204 MPV (7.0 - 9.0 fL) 12.0 H 12.2 H Neut % (Auto) (56.0 - 77.0 %) 87.9 H 83.9 H Lymph % (Auto) (14.0 - 32.0 %) 2.1 L 7.8 L [place] % (Auto) (4.8 - 9.0 %) 8.0 4.0 L Eos % (Auto) (0.3 - 3.7 %) 0.1 L 1.2 Baso % (Auto) (0.0 - 2.0 %) 0.3 0.6 Neut # (Auto) (2.0 - 7.6 x10 3/uL) 24.24 H 29.79 H Lymph # (Auto) (1.0 - 3.8 x10 3/uL) 0.57 L 2.77 [place] # (Auto) (0.1 - 0.8 x10 3/uL) 2.20 H 1.41 H Eos # (Auto) (0.0 - 0.2 x10 3/uL) 0.02 0.44 H Baso # (Auto) (0.0 - 0.2 x10 3/uL) 0.08 0.22 H Abs Immat Gran (auto) (0.00 - 0.03 x10 3/uL) 0.44 H 0.90 H Immature Gran % (0.0 - 2.0 %) 1.6 2.5 H Nucleated RBC % (0 - 0 %) 0.0 0.0 Nucleated RBCs # (Man) (0.0 - 0.1 x10 3/uL) 0.00 0.00 Laboratory Tests 06/11 06/10 0209 2047 Chemistry Magnesium (1.6 - 2.6 mg/dL) 2.41 2.81 H Radiology data: Recent Impressions: RADIOLOGY - XR CHEST 1 V 06/10 1950 Report Impression - Status: SIGNED Entered: 06/11/20232030 IMPRESSION: 1. There is central vascular congestion and diffuse interstitial prominence with mild/moderate bibasilar atelectasis/infiltrates. 2. Tubes and lines as described above. 3. No definite internal radiopaque foreign bodies are identified. The findings of this study were discussed with the OR nurse and anesthesiologist. Impression By: Phoenix Aaron M.D. RADIOLOGY - XR CHEST 1 V 06/10 2044 Report Impression - Status: SIGNED Entered: 06/11/20232132 IMPRESSION: Satisfactory postoperative appearance of the chest. Impression By: [email or web address] - Orlando Trimble M.D. RADIOLOGY - XR CHEST 1 V 06/12 0732 Report Impression - Status: SIGNED Entered: 06/12/2023854 IMPRESSION: 1. Status post endotracheal tube removal. No other significant change. Impression By: Phoenix Aaron M.D. Diagnosis, Assessment Plan Consultants: cardiology, cardiovascular surgery Free Text DxA P Notes Free Text DxA P Notes: CABG x 3 (COSTA-LAD, SVG-Diag, SVG-OM) EVH (RGSV) ALAA 06/12/23 AAO x 3 Respiratory: on 10 L NC, wean as tolerated. . CT in place in place : Sinus rhythm. on levo 5, epi 2, Milrinone. Patient walked unit with PT discussed with nurse at 1058 RPT #:[id number] END OF REPORT [facility] 2023-06-12 09:53:00 [facility] ([facility]) Critical Care Progress Note REPORT#:[id number] REPORT STATUS: Signed REPORT INITIALIZATION DATE:06/12/23 TIME: 952 PATIENT: MINDY CARTER UNIT #: [id number] ROOM/BED: [place] [address] : 54 AGE: 67 SEX: M ATTEND: Kimmie Bacon MD ADM AUTHOR: Dora Resendez MD REPT SERVICE DT/TIME: 06/12/23 09 * ALL edits or amendments must be made on the electronic/computer document * Subjective Chief complaint: CABG x 3 (COSTA-LAD, SVG-Diag, SVG-OM) EVH (RGSV) ALAA PP HPI: This is a 67-year-old male with a past medical history significant for cirrhosis , high blood pressure, hyperlipidemia, diabetes, history of alcohol use, and CKD stage II admitted to the hospital with shortness of breath NSTEMI, underwent cardiac cath showed multivessel CAD. Patient underwent CABG x 3 (COSTA-LAD, SVG- Diag, SVG-OM)today. Intraoperatively patient received 400 cc crystalloid, 570 Cell Saver. Urine output was 200 cc. On arrival to ICU patient was intubated on ventilatory support. He was on 5 of Levophed, 10 of epinephrine and 0.5 of milrinone. Comments: Awake and alert. Continues to require milrinone, epinephrine and norepinephrine for hemodynamic support. Denies chest pain or shortness of breath. Review of Systems All systems rev neg: except as marked Objective General VS/I O Last Documented: Result Date Time Pulse Ox 96 06/11 700 B/P 111/45 06/11 07 B/P Mean 63 06/11 07 Pulse 77 06/11 0701 Resp 33 06/11 07 O2 Delivery Nasal cannula 06/11 07 O2 Flow Rate 12 06/11 07 Temp 97.5 06/11 0400 FiO2 60 06/11 0325 24 hour I O ending at 0700: 06/11 0700 06/10 1900 Intake Total 2375.00 Output Total 891 1600 Balance 1484.00 -1600 Intake, IV 2135.00 Intake, Oral 240 Output, Chest 521 Tube Drainage Output, Urine 370 1600 Patient 110 kg Weight Weight Standing scale Measurement Method PATIENT WEIGHT: Weight (lb): 242 Weight (oz): 8.14 Weight (kg): 110.000 Physical Exam General appearance: alert, awake, oriented, pleasant, conversational, mental status normal Head/eyes: atraumatic, clear cornea, EOMI Neck: RIJ CVL Cardiovascular: normal S1/S2 Respiratory: symmetric expansion Abdomen: soft, non-tender, no mass/organomegaly Extremities: edema (2+) Neuro/BUSINESS AREA MANAGER: alert, no motor deficits Results Findings/data: Laboratory Tests 06/11 06/11 06/11 06/10 0632 0400 0245 2308 Blood Gas Puncture Site Art Line PA Art Line Art Line O2 Saturation (90 - 100 %) 95.6 98.2 92.2 ABG pH (7.35 - 7.45) 7.361 7.349 L 7.367 ABG pCO2 (35.0 - 45 mmHg) 34.9 L 40.2 37.0 ABG pO2 (80 - 100.0 mmHg) 80.1 112.5 H 66.0 L ABG PO2/FiO2 Ratio (mm/Hg) 187.50 ABG HCO3 (22.0 - 26.0 MMOL/L) 19.9 L 22.1 21.2 L ABG Total CO2 21.0 23.4 22.4 ABG Base Excess (-4.0 - 4.0 MMOL/L) -5.6 L -3.5 -4.1 L ABG Hematocrit (37.5 - 50.7 %) 31 L 33 L 31 L 35 L ABG Hemoglobin (12.5 - 16.9 G/DL) 10.6 L 11.4 L 10.6 L 11.9 L VBG pH (7.33 - 7.45) 7.322 L VBG pCO2 (43 - 47 mmHg) 44.0 VBG pO2 (10 - 50 mmHG) 45.0 VBG HCO3 (22 - 27 MMOL/L) 22.8 POC VBG Total CO2 24.1 VBG O2 Saturation (60 - 80 %) 77.0 VBG Base Excess (-4.0 - 4.0 MMOL/L) -3.3 Sodium (134 - 147 mmol/L) 136 139 139 139 Potassium (3.4 - 5.0 mmol/L) 4.2 4.2 4.1 3.8 Chloride (100 - 108 mmol/L) 107 106 108 110 H Ionized Calcium (1.12 - 1.32 MMOL/L) 1.23 1.31 1.33 H 1.31 Lactic Acid (0.9 - 1.7 mmol/l) 1.5 1.7 1.7 2.7 H Temperature (F) 98 97.5 97.7 O2 Delivery Device 12L HFNC BiPAP BiPAP Cannula FiO2 (%) 60.0 60 PEEP (cmH2O) 6 5 Pressure Support (cmH2O) 12 06/10 190 Blood Gas Puncture Site Art Line Art Line O2 Saturation (90 - 100 %) 92.5 93.5 99.1 99.9 ABG pH (7.35 - 7.45) 7.390 7.371 7.424 7.460 H ABG pCO2 (35.0 - 45 mmHg) 36.4 39.7 32.5 L 38.2 ABG pO2 (80 - 100.0 mmHg) 65.5 L 70.5 L 134.0 H 235.3 *H ABG PO2/FiO2 Ratio (mm/Hg) 131.00 70.50 ABG HCO3 (22.0 - 26.0 MMOL/L) 22.1 23.0 21.3 L 27.2 H ABG Total CO2 23.2 24.2 22.3 28.4 ABG Base Excess (-4.0 - 4.0 MMOL/L) -2.9 -2.2 -2.6 3.2 ABG Hematocrit (37.5 - 50.7 %) 35 L 42 27 L 30 L ABG Hemoglobin (12.5 - 16.9 G/DL) 12.1 L 14.4 9.0 L 10.1 L Mabel Test N/A Sodium (134 - 147 mmol/L) 139 139 139 137 Potassium (3.4 - 5.0 mmol/L) 3.9 4.6 4.6 5.4 H Chloride (100 - 108 mmol/L) 107 104 109 H 102 Ionized Calcium (1.12 - 1.32 MMOL/L) 1.42 H 1.47 H 1.29 1.03 L Lactic Acid (0.9 - 1.7 mmol/l) 2.4 H 2.3 H 2.1 H 1.0 Temperature (F) 99 O2 Delivery Device Adult Vent + Vent Mode PC/PS AC Vent Rate (/MIN) 20 FiO2 (%) 50 100 Tidal Volume (ml) 450 PEEP (cmH2O) 5 8 Pressure Support (cmH2O) 12 06/10 06/10 06/10 1845 1817 1750 Blood Gas O2 Saturation (90 - 100 %) 100.0 99.4 98.8 ABG pH (7.35 - 7.45) 7.428 7.404 7.371 ABG pCO2 (35.0 - 45 mmHg) 41.4 34.4 L 35.6 ABG pO2 (80 - 100.0 mmHg) 431.5 *H 156.7 H 126.6 H ABG HCO3 (22.0 - 26.0 MMOL/L) 27.4 H 21.5 L 20.6 L ABG Total CO2 28.6 22.6 21.7 ABG Base Excess (-4.0 - 4.0 MMOL/L) 2.7 -2.7 -4.1 L ABG Hematocrit (37.5 - 50.7 %) 30 L 30 L 30 L ABG Hemoglobin (12.5 - 16.9 G/DL) 10.1 L 10.4 L 10.0 L Sodium (134 - 147 mmol/L) 137 140 142 Potassium (3.4 - 5.0 mmol/L) 5.0 3.5 3.1 L Chloride (100 - 108 mmol/L) 103 111 H 112 H Ionized Calcium (1.12 - 1.32 MMOL/L) 1.00 L 0.96 L 0.94 L Lactic Acid (0.9 - 1.7 mmol/l) < 0.3 L 0.6 L 0.5 L Laboratory Tests 06/11 06/11 06/11 06/11 06/10 0632 0400 0245 0209 2352 Chemistry Sodium (134 - 147 mEq/L) 138 Potassium (3.4 - 5.0 mEq/L) 4.1 Chloride (100 - 108 mEq/L) 107 Carbon Dioxide (21 - 33 mEq/l) 21 Anion Gap (0 - 20) 14 BUN (7 - 25 mg/dL) 20 Creatinine (0.6 - 1.3 mg/dL) 1.3 POC Creatinine (0.8 - 1.3 mg/dL) 1.1 1.1 1.2 Glomerular Filtr Rate (80 - 90) 59.8 L Glucose (77 - 141 mg/dL) 238 H POC Glucose (70 - 110 MG/DL) 275 H POC Glucose (mg/dL) (70 - 110 MG/DL) 228 H 208 H 223 H Calcium (8.0 - 10.5 mg/dL) 9.4 Magnesium (1.6 - 2.6 mg/dL) 2.41 Total Bilirubin (0.0 - 1.0 mg/dL) 1.40 H Direct Bilirubin (0.1 - 0.3 MG/DL) 0.70 H Indirect Bilirubin (MG/DL) 0.70 AST (8 - 34 IUnit/L) 52 H ALT (10 - 49 IUnit/L) 26 Total Alk Phosphatase (20 - 125 IUnit/L) 74 Total Protein (6.4 - 8.2 g/dL) 5.5 L Albumin (3.4 - 5.0 g/dL) 3.10 L 06/10 06/10 06/10 06/10 06/10 2308 2139 213 2100 2046 Chemistry Sodium (134 - 147 mEq/L) 137 Potassium (3.4 - 5.0 mEq/L) 4.6 Chloride (100 - 108 mEq/L) 103 Carbon Dioxide (21 - 33 mEq/l) 24 Anion Gap (0 - 20) 15 BUN (7 - 25 mg/dL) 21 Creatinine (0.6 - 1.3 mg/dL) 1.1 POC Creatinine (0.8 - 1.3 mg/dL) 1.0 1.0 1.0 Glomerular Filtr Rate (80 - 90) 73.1 L Glucose (77 - 141 mg/dL) 298 H POC Glucose (70 - 110 MG/DL) 288 H POC Glucose (mg/dL) (70 - 110 MG/DL) 265 H 264 H 301 H Calcium (8.0 - 10.5 mg/dL) 10.6 H Magnesium (1.6 - 2.6 mg/dL) 2.81 H 06/10 1906 1845 1817 1750 Chemistry POC Creatinine (0.8 - 1.3 mg/dL) 0.8 0.9 0.8 0.7 L 0.6 L POC Glucose (mg/dL) (70 - 110 MG/DL) 250 H 202 H 172 H 143 H 128 H 06/10 06/10 1525 1123 Chemistry POC Glucose (70 - 110 MG/DL) 180 H 218 H Laboratory Tests 06/11 1908 1847 Coagulation INR (0.8 - 1.2) 1.2 1.3 H PTT ([place]) (25.0 - 39.5 Seconds) 31.2 35.8 PT Patient/Control Mix (9.3 - 12.9 13.2 H 14.2 H SECONDS) Activated Coag Time (74 - 137 SEC) 141 H 590 H 650 H 06/10 175 Coagulation Activated Coag Time (74 - 137 SEC) 574 H 158 H Laboratory Tests 03/16 03/15 0209 2047 Hematology WBC (4.5 - 11.0 x10 3/uL) 27.6 H 35.5 H RBC (4.00 - 5.60 x10 6/uL) 3.31 L 3.69 L Hgb (12.5 - 16.9 g/dL) 10.1 L 11.1 L Hct (37.5 - 50.7 %) 30.3 L 34.0 L MCV (81.0 - 99.0 fL) 91.5 92.1 MCH (27.0 - 33.0 pg) 30.5 30.1 MCHC (33.0 - 37.0 g/dL) 33.3 32.6 L RDW (11.5 - 14.5 %) 13.2 13.5 Plt Count (150 - 400 x10 3/uL) 210 204 MPV (7.0 - 9.0 fL) 12.0 H 12.2 H Neut % (Auto) (56.0 - 77.0 %) 87.9 H 83.9 H Lymph % (Auto) (14.0 - 32.0 %) 2.1 L 7.8 L [place] % (Auto) (4.8 - 9.0 %) 8.0 4.0 L Eos % (Auto) (0.3 - 3.7 %) 0.1 L 1.2 Baso % (Auto) (0.0 - 2.0 %) 0.3 0.6 Neut # (Auto) (2.0 - 7.6 x10 3/uL) 24.24 H 29.79 H Lymph # (Auto) (1.0 - 3.8 x10 3/uL) 0.57 L 2.77 [place] # (Auto) (0.1 - 0.8 x10 3/uL) 2.20 H 1.41 H Eos # (Auto) (0.0 - 0.2 x10 3/uL) 0.02 0.44 H Baso # (Auto) (0.0 - 0.2 x10 3/uL) 0.08 0.22 H Abs Immat Gran (auto) (0.00 - 0.03 x10 3/uL) 0.44 H 0.90 H Immature Gran % (0.0 - 2.0 %) 1.6 2.5 H Nucleated RBC % (0 - 0 %) 0.0 0.0 Nucleated RBCs # (Man) (0.0 - 0.1 x10 3/uL) 0.00 0.00 Laboratory Tests 06/12/23 0209: [Embedded Image Not Available] 06/11/232046: [Embedded Image Not Available] Microbiology: 06/09 1538 NASAL: MSSA Surveillance Screen - COMP 06/09 1538 NASAL: MRSA DNA Surveillance Screen - COMP Radiology data Recent Impressions: RADIOLOGY - XR CHEST 1 V 06/10 1950 Report Impression - Status: SIGNED Entered: 06/11/20232030 IMPRESSION: 1. There is central vascular congestion and diffuse interstitial prominence with mild/moderate bibasilar atelectasis/infiltrates. 2. Tubes and lines as described above. 3. No definite internal radiopaque foreign bodies are identified. The findings of this study were discussed with the OR nurse and anesthesiologist. Impression By: Phoenix Aaron M.D. RADIOLOGY - XR CHEST 1 V 06/10 2044 Report Impression - Status: SIGNED Entered: 06/11/20232132 IMPRESSION: Satisfactory postoperative appearance of the chest. Impression By: [email or web address] Frandy Trimble M.D. RADIOLOGY - XR CHEST 1 V 06/11 0832 Report Impression - Status: SIGNED Entered: 06/12/2023854 IMPRESSION: 1. Status post endotracheal tube removal. No other significant change. Impression By: Phoenix Aaron M.D. Free Text Obj Notes Free Text Obj Notes: Middle-age male intubated on mechanical ventilation Pupil equal reactive to light Neck supple Chest with sternotomy dressing, [address] Heart S1-S2 Abdomen soft, could not appreciate bowel sounds Extremities no edema, right leg dressed 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 Pain management with as needed IV Tylenol. Will use low- dose. Also need to monitor closely for signs and symptoms of alcohol withdrawal. He received multivitamin during earlier days of admission. Cardiovascular: EF about 55 to 60% Continue milrinone 0.25 mcg/kg/min, epinephrine 2 mcg/min and norepinephrine 5 mcg/min. Titrating to keep MAP above 65 and cardiac index greater than 2.2. Left pleural chest tube 335 cc Mediastinal chest tube 196 cc. Will keep both in for now. Respiratory: On 12 L nasal cannula. Give Lasix 20 mg x 1. Encourage I-S. GI: Cardiac diet. LFTs normal except for mild AST elevation. 2:1 ratio consistent with EtOH hepatitis. Hematology: Hemoglobin is stable. SCDs. Endocrine: Insulin for glucose control. Glucose levels still elevated. ID: Perioperative prophylaxis Renal: Normal indices. Lasix 20 mg IV x 1. Full code Updated daughter on current plan of care Total critical care time excluding procedures was 40 minutes. Consultants: cardiology, cardiovascular surgery Quality: [facility] VTE Prophylaxis VTE prophylaxis initiated: yes Current Medications Current medication review: I attest that the foregoing medication list in the medical record is true, accurate, and complete to the best of my knowledge. Advanced Care Plan 65 or Older Discussed with: patient Discussion included: living will, power of defense attorney, code status at 1009 RPT #:[id number] END OF REPORT [facility] 2023-06-12 09:36:00 [facility] REPORT#:[id number] REPORT STATUS: Signed REPORT INITIALIZATION DATE:06/12/23 TIME: 935 PATIENT: MINDY CARTER UNIT #: [id number] ROOM/BED: [place] [address] : 54 AGE: 67 SEX: M ATTEND: Kimmie Bacon MD ADM AUTHOR: Kimmie Bacon MD REPT SERVICE DT/TIME: 06/12/23 0936 * ALL edits or amendments must be made on the electronic/computer document * Subjective Chief complaint: Complains of chest soreness, chest tube in place, s/p CABG last night. On 10 L high flow oxygen via nasal cannula, white cell count improved from 35-27. Creatinine increased to 1.3, on milrinone drip. On amiodarone, aspirin. Request for melatonin for insomnia. Multiple specialty services on board. PT/ OT on board. HPI: This is a 67-year-old male with history of high blood pressure, hyperlipidemia, diabetes mellitus, syncope, neuropathy, alcohol use, liver cirrhosis, stage II CKD presents with shortness of breath that has been increasing since 2 days ago. Patient took extra dose of Aldactone and hydrochlorothiazide which did not help. Patient also reports chest tightness and is currently on 5 L of oxygen per nasal cannula. Patient says that he cannot lie down he gets short of breath when he lies down. He drinks whiskey about 3 shots a day. He has been having increasing edema in bilateral lower extremities. No headaches or dizziness. No other complaints elicited. Objective General VS/I O: Vital Signs: Date Time Temp Pulse Resp B/P B/P Pulse O2 O2 Flow FiO2 Mean Ox Delivery Rate 06/11 1136 97 High flow 12 nasal cannula 06/11 0806 95 High flow 12 nasal cannula 06/11 0701 77 33 111/45 63 96 /16 0700 Nasal 12 cannula 16 0700 92/54 68 03/16 0700 76 31 111/46 63 96 03/16 0640 98/54 70 03/16 0640 79 28 110/47 64 97 03/16 0630 80 32 110/45 63 95 03/16 0621 93/65 74 03/16 0621 80 30 111/47 65 97 03/16 0601 99/56 72 03/16 0601 84 33 114/46 64 94 03/16 0600 83 28 117/45 65 95 03/16 0544 104/59 76 03/16 0544 83 31 132/52 73 94 03/16 0530 79 31 103/46 66 03/16 0520 99/56 74 03/16 0520 82 27 127/49 67 96 03/16 0500 99/57 72 03/16 0500 84 20 128/49 67 100 03/16 0440 87/51 64 03/16 0440 84 30 116/48 66 100 03/16 0430 84 21 120/47 64 100 03/16 0420 92/54 67 03/16 0420 85 20 120/45 63 100 03/16 0400 97.5 03/16 0400 93/54 69 03/16 0400 86 23 123/46 64 100 03/16 0348 86 21 121/46 64 100 03/16 0341 86 23 124/47 65 100 03/16 0340 98/54 72 03/16 0340 87 21 124/47 64 100 03/16 0325 89 99 60 03/16 0325 99 BiPAP 60 03/16 0320 81 29 95/52 66 90 03/16 0311 81 25 101/42 59 91 03/16 0300 101/56 73 03/16 0300 90 30 109/48 65 99 03/16 0241 90 23 108/45 62 99 03/16 0240 94/53 70 03/16 0240 91 21 110/46 63 99 03/16 0220 92/55 69 03/16 0220 90 30 103/45 61 99 03/16 0211 90 24 105/46 62 99 03/16 0200 90/52 66 03/16 0200 90 24 101/45 59 100 03/16 0141 87 23 102/44 59 99 03/16 0140 89/50 65 03/16 0140 90 23 103/44 60 99 03/16 0120 92/53 68 03/16 0120 87 36 97/44 59 94 03/16 0111 92 25 101/48 62 99 03/16 0100 94/50 65 03/16 0100 92 27 101/48 62 99 03/16 0041 92 31 106/49 64 100 03/16 0040 96/51 68 03/16 0040 91 30 109/51 66 100 03/16 0020 88/50 63 03/16 0020 92 27 98/46 60 99 03/16 0019 88/50 64 03/16 0019 94 27 99/46 60 99 03/16 0011 97 104/49 63 99 03/16 0000 83/51 63 03/16 0000 98 28 95/47 60 99 03/15 2348 97 99 60 03/15 2348 99 BiPAP 60 03/15 2341 96 26 95/45 58 98 03/15 2340 86/49 62 03/15 2340 95 30 96/45 59 97 03/15 2320 82/52 62 03/15 2320 100 29 86/43 55 93 03/15 2311 100 29 86/43 55 95 03/15 2300 89/50 64 03/15 2300 100 28 91/46 58 96 03/15 2243 89/50 63 03/15 2243 100 29 93/48 60 95 03/15 2241 100 28 94/47 60 93 03/15 2240 90/55 68 06/10 2240 100 28 96/49 62 94 06/10 2220 94/55 67 06/10 2220 100 30 103/52 66 94 06/10 2211 98 23 105/51 66 95 06/10 2200 95/55 70 06/10 2200 99 33 109/54 70 92 06/10 2145 97 High flow 12 68 nasal cannula 06/10 2140 97 33 111/55 71 93 06/100 96/54 69 06/10 2140 96 23 109/54 70 93 06/101 94/57 69 06/10 2120 93 29 110/55 70 93 06/10 211 92 35 131/56 78 95 06/10 2101 126/71 94 06/10 210 91 42 137/54 79 97 06/10 2100 High flow 12 nasal cannula 06/10 2100 91 36 139/51 98 06/10 2043 108/57 77 06/10 2043 82 121/54 73 89 06/10 2040 91 Ventilator 100 06/11 2039 81 91 100 24 hour I O ending at 0700: 06/11 0700 06/10 1900 Intake Total 2375.00 Output Total 891 1600 Balance 1484.00 -1600 Intake, IV 2135.00 Intake, Oral 240 Output, Chest 521 Tube Drainage Output, Urine 370 1600 Patient 110 kg Weight Weight Standing scale Measurement Method PATIENT WEIGHT: Weight (lb): 242 Weight (oz): 8.14 Weight (kg): 110.000 Medications: Active Meds + DC'd Last 24 Hrs Ipratropium [place] (ATROVENT) 500 MCG RTQ2H PRN PRN INH Cyanocobalamin (Vitamin B-12 500 mcg tab) 500 MCG DAILY PO Ferrous Sulfate (FERROUS SULFATE) 325 MG DAILY PO Bisacodyl (DULCOLAX) 10 MG ONCE PRN RECTAL Magnesium Hydroxide (MILK OF MAGNESIA) 30 ML ONCE PRN PO Atorvastatin Calcium (LIPITOR) 40 MG 2100 PO (CAN) Melatonin (Melatonin) 6 MG BEDTIME PRN PO (UNV) Furosemide (LASIX) 40 MG Q12H PO Furosemide (LASIX 20MG INJ) 20 MG ONCE ONE IV (DC) Clopidogrel Bisulfate (Plavix) 75 MG DAILY PO Polyethylene Glycol (MIRALAX) 17 GM DAILY PO Albumin Human (ALBUMINAR 5% 12.5GM/250ML) 250 ML ONCE ONE IV (DC) Pantoprazole (PROTONIX) 40 MG DAILY@0600 PO Milrinone Lactate/Dextrose (MILRINONE 20MG/D5W 100ML) 100 ML TITRATE IV (CKD) Aspirin (ASPIRIN) 81 MG DAILY PO Albumin Human (ALBUMINAR 5% 12.5GM/250ML) 250 ML ONCE ONE IV (DC) Albumin Human (ALBUMINAR 5% 12.5GM/250ML) 250 ML ONCE ONE IV (DC) Fentanyl Citrate (SUBLIMAZE) 25 MCG ONCE ONE IV (DC) Fentanyl Citrate (SUBLIMAZE) 25 MCG ONCE ONE IV (DC) Amiodarone HCl (CORDARONE) 200 MG TID PO Docusate Sodium (COLACE) 100 MG BID PO Gabapentin (NEURONTIN) 200 MG BID PO Metoprolol Tartrate (LOPRESSOR) 12.5 MG Q12HR PO Mupirocin (BACTROBAN 2% 22 GM OINTMENT) 1 APPLIC BID NASAL Sennosides (Senna Lax 8.6 MG TABLET) 17.2 MG BEDTIME PO Fentanyl Citrate (SUBLIMAZE) 0 .STK-MED ONE IV (DC) Ipratropium [place] (ATROVENT) 500 MCG RTQ4H INH Acetaminophen (TYLENOL) 650 MG Q4H PRN PRN PO (DC) Acetaminophen (TYLENOL) 650 MG Q4H PRN PRN RECTAL (DC) Albumin Human (ALBUMINAR 25%) 25 GM ASDIR PRN IV Calcium Chloride (CALCIUM CHLORIDE) 1 GM ASDIR PRN IV Cefazolin Sodium (KEFZOL OR ANCEF) 6 GM ONCE ONE IV (DC) Sodium Chloride (SODIUM CHLORIDE 0.9%) 500 ML Dextrose/Water (DEXTROSE 10% IN WATER) 125 ML ASDIR PRN IV (CKD) Dextrose/Water (DEXTROSE 10% IN WATER) 250 ML ASDIR PRN IV (CKD) Epinephrine (ADRENALIN CHLORIDE) 4 MG ASDIR IV Dextrose/Water (DEXTROSE 5% WATER) 246 ML Glucagon (GLUCAGON) 1 MG ASDIR PRN IM (CAN) Insulin Human Regular (HumuLIN R) 100 UNIT ASDIR IV (CKD) Sodium Chloride (SODIUM CHLORIDE 0.9%) 99 ML Magnesium Sulfate (MAGNESIUM SULFATE 4GM/SWFI 100ML) 100 ML ASDIR PRN IV Magnesium Sulfate (MAGNESIUM SULFATE 2GM/SWFI 50ML) 50 ML ASDIR PRN IV Magnesium Sulfate/Dextrose (MAGNESIUM SULFATE 1GM/D5W 100ML) 100 ML ASDIR PRN IV Nitroglycerin/Dextrose (NITROGLYCERIN 50,000MCG/D5W 250ML) 250 ML ASDIR IV Norepinephrine Bitartrate (NOREPINEPHRINE 8 MG/NS 250 ML) 250 ML TITRATE IV Ondansetron HCl (ZOFRAN) 4 MG Q6H PRN PRN IV Oxycodone HCl (ROXICODONE) 5 MG Q4H PRN PRN PO Oxycodone HCl (ROXICODONE) 10 MG Q4H PRN PRN PO Potassium Chloride (KCL 20MEQ/SWFI 100ML) 100 ML ASDIR PRN IV Sodium Bicarbonate (SODIUM BICARBONATE) 50 MEQ ASDIR PRN IV Sodium Chloride (SODIUM CHLORIDE 0.9%) 1,000 ML .Q20H IV Sodium Chloride (SODIUM CHLORIDE 0.9%) 250 ML Q24H IV Calcium Chloride (CALCIUM CHLORIDE) 0 .STK-MED ONE IV (DC) Milrinone Lactate/Dextrose (MILRINONE 20MG/D5W 100ML) 100 ML .STK-MED ONE IV (DC) Insulin Glargine (Semglee) 15 UNIT DAILY SUBQ (DC) Verapamil HCl (ISOPTIN) 16.6 MG .Q24H IV (DC) Heparin Sodium (Porcine) (HEPARIN SODIUM) 1,660 UNIT Sodium Bicarbonate (SODIUM BICARBONATE) 0.7 ML Nitroglycerin/Dextrose (NITROGLYCERIN 50MG/D5W 250ML) 8.3 MG Lactated Ringer's (LACTATED RINGERS) 949.5 ML Insulin Human Lispro (HUMALOG) 5 UNIT AC SUBQ (DC) Acetaminophen (TYLENOL EXTRA STRENGTH) 1,000 MG PREOP ONCALL PO (DC) Gabapentin (NEURONTIN) 200 MG PREOP ONCALL PO (DC) Furosemide (LASIX 40 mg/4 mL INJECTION) 40 MG BID IV (DC) Gabapentin (NEURONTIN) 100 MG BEDTIME PO (DC) Docusate Sodium (COLACE) 100 MG DAILY PRN PRN PO (DC) Polyethylene Glycol (MIRALAX) 17 GM DAILY PRN PRN PO (DC) Lactulose (LACTULOSE) 10 GM DAILY PRN PRN PO Multivitamins (TAB-A-KANDI) 1 TAB DAILY PO (DC) Thiamine HCl (THIAMINE HCL) 100 MG DAILY PO Aspirin (ASPIRIN) 81 MG DAILY PO (DC) Carvedilol (COREG) 12.5 MG Q12HR PO (DC) Amlodipine Besylate (NORVASC) 10 MG BEDTIME PO (DC) Atorvastatin Calcium (LIPITOR) 40 MG 2100 PO (DC) Doxazosin Mesylate (CARDURA) 2 MG BEDTIME PO (DC) Insulin Human Lispro (HUMALOG) 0 AC HS SUBQ (DC) Acetaminophen (TYLENOL) 650 MG Q4H PRN PRN PO (DC) Dextrose/Water (DEXTROSE 10% IN WATER) 125 ML ASDIR PRN IV (DC) Dextrose/Water (DEXTROSE 10% IN WATER) 250 ML ASDIR PRN IV (DC) Glucagon (GLUCAGON) 1 MG ASDIR PRN IM (DC) Hydralazine HCl (APRESOLINE) 10 MG Q6H PRN PRN IV (DC) Ondansetron HCl (ZOFRAN) 4 MG Q4H PRN PRN IV (DC) Nitroglycerin (NITROSTAT) 0.4 MG Q5M PRN PRN SL (DC) Heparin Sodium (HEPARIN 5000 UNITS/ML) 9,000 UNIT ASDIR PRN PRN IV (DC) Heparin Sodium (HEPARIN 5000 UNITS/ML) 4,500 UNIT ASDIR PRN PRN IV (DC) Heparin Sodium (Porcine) (HEPARIN 25,000 UNITS/ 1/2NS 500ML) 500 ML ASDIR IV (DC) Physical Exam General appearance: alert, awake, oriented Head/Eyes: atraumatic, clear cornea, EOMI, PERRLA ENT: moist mucosal membranes Neck: normal thyroid, supple/no meningismus Cardiovascular: normal heart sounds, regular rate rhythm, no gallop, no murmur , no rub Respiratory: chest tube, hypoxia, on oxygen, aerating well, clear to auscultation Abdomen: non-tender, normal bowel sounds, soft Extremities: edema, no clubbing, no cyanosis Neuro/BUSINESS AREA MANAGER: alert, oriented X 3, CNII-XII intact Skin: dry, intact, no rash Psychiatry: normal affect Results Findings/Data: Laboratory Tests 06/11 06/11 06/11 06/10 0632 0400 0245 2308 Blood Gas Puncture Site Art Line PA Art Line Art Line O2 Saturation (90 - 100 %) 95.6 98.2 92.2 ABG pH (7.35 - 7.45) 7.361 7.349 L 7.367 ABG pCO2 (35.0 - 45 mmHg) 34.9 L 40.2 37.0 ABG pO2 (80 - 100.0 mmHg) 80.1 112.5 H 66.0 L ABG PO2/FiO2 Ratio (mm/Hg) 187.50 ABG HCO3 (22.0 - 26.0 MMOL/L) 19.9 L 22.1 21.2 L ABG Total CO2 21.0 23.4 22.4 ABG Base Excess (-4.0 - 4.0 MMOL/L) -5.6 L -3.5 -4.1 L ABG Hematocrit (37.5 - 50.7 %) 31 L 33 L 31 L 35 L ABG Hemoglobin (12.5 - 16.9 G/DL) 10.6 L 11.4 L 10.6 L 11.9 L VBG pH (7.33 - 7.45) 7.322 L VBG pCO2 (43 - 47 mmHg) 44.0 VBG pO2 (10 - 50 mmHG) 45.0 VBG HCO3 (22 - 27 MMOL/L) 22.8 POC VBG Total CO2 24.1 VBG O2 Saturation (60 - 80 %) 77.0 VBG Base Excess (-4.0 - 4.0 MMOL/L) -3.3 Sodium (134 - 147 mmol/L) 136 139 139 139 Potassium (3.4 - 5.0 mmol/L) 4.2 4.2 4.1 3.8 Chloride (100 - 108 mmol/L) 107 106 108 110 H Ionized Calcium (1.12 - 1.32 MMOL/L) 1.23 1.31 1.33 H 1.31 Lactic Acid (0.9 - 1.7 mmol/l) 1.5 1.7 1.7 2.7 H Temperature (F) 98 97.5 97.7 O2 Delivery Device 12L HFNC BiPAP BiPAP Cannula FiO2 (%) 60.0 60 PEEP (cmH2O) 6 5 Pressure Support (cmH2O) 12 06/10 2139 2100 195 1906 Blood Gas Puncture Site Art Line Art Line O2 Saturation (90 - 100 %) 92.5 93.5 99.1 99.9 ABG pH (7.35 - 7.45) 7.390 7.371 7.424 7.460 H ABG pCO2 (35.0 - 45 mmHg) 36.4 39.7 32.5 L 38.2 ABG pO2 (80 - 100.0 mmHg) 65.5 L 70.5 L 134.0 H 235.3 *H ABG PO2/FiO2 Ratio (mm/Hg) 131.00 70.50 ABG HCO3 (22.0 - 26.0 MMOL/L) 22.1 23.0 21.3 L 27.2 H ABG Total CO2 23.2 24.2 22.3 28.4 ABG Base Excess (-4.0 - 4.0 MMOL/L) -2.9 -2.2 -2.6 3.2 ABG Hematocrit (37.5 - 50.7 %) 35 L 42 27 L 30 L ABG Hemoglobin (12.5 - 16.9 G/DL) 12.1 L 14.4 9.0 L 10.1 L Mabel Test N/A Sodium (134 - 147 mmol/L) 139 139 139 137 Potassium (3.4 - 5.0 mmol/L) 3.9 4.6 4.6 5.4 H Chloride (100 - 108 mmol/L) 107 104 109 H 102 Ionized Calcium (1.12 - 1.32 MMOL/L) 1.42 H 1.47 H 1.29 1.03 L Lactic Acid (0.9 - 1.7 mmol/l) 2.4 H 2.3 H 2.1 H 1.0 Temperature (F) 99 O2 Delivery Device Adult Vent + Vent Mode PC/PS AC Vent Rate (/MIN) 20 FiO2 (%) 50 100 Tidal Volume (ml) 450 PEEP (cmH2O) 5 8 Pressure Support (cmH2O) 12 06/10 06/10 06/10 1845 1817 1750 Blood Gas O2 Saturation (90 - 100 %) 100.0 99.4 98.8 ABG pH (7.35 - 7.45) 7.428 7.404 7.371 ABG pCO2 (35.0 - 45 mmHg) 41.4 34.4 L 35.6 ABG pO2 (80 - 100.0 mmHg) 431.5 *H 156.7 H 126.6 H ABG HCO3 (22.0 - 26.0 MMOL/L) 27.4 H 21.5 L 20.6 L ABG Total CO2 28.6 22.6 21.7 ABG Base Excess (-4.0 - 4.0 MMOL/L) 2.7 -2.7 -4.1 L ABG Hematocrit (37.5 - 50.7 %) 30 L 30 L 30 L ABG Hemoglobin (12.5 - 16.9 G/DL) 10.1 L 10.4 L 10.0 L Sodium (134 - 147 mmol/L) 137 140 142 Potassium (3.4 - 5.0 mmol/L) 5.0 3.5 3.1 L Chloride (100 - 108 mmol/L) 103 111 H 112 H Ionized Calcium (1.12 - 1.32 MMOL/L) 1.00 L 0.96 L 0.94 L Lactic Acid (0.9 - 1.7 mmol/l) < 0.3 L 0.6 L 0.5 L Laboratory Tests 06/11 06/11 06/11 06/11 06/11 1511 1346 1345 1140 0632 Chemistry POC Creatinine (0.8 - 1.3 mg/dL) 1.1 POC Glucose (70 - 110 MG/DL) 356 H 342 H 352 H 293 H POC Glucose (mg/dL) (70 - 110 MG/DL) 228 H 06/11 06/11 06/11 06/10 06/10 0400 0245 0209 2352 2308 Chemistry Sodium (134 - 147 mEq/L) 138 Potassium (3.4 - 5.0 mEq/L) 4.1 Chloride (100 - 108 mEq/L) 107 Carbon Dioxide (21 - 33 mEq/l) 21 Anion Gap (0 - 20) 14 BUN (7 - 25 mg/dL) 20 Creatinine (0.6 - 1.3 mg/dL) 1.3 POC Creatinine (0.8 - 1.3 mg/dL) 1.1 1.2 1.0 Glomerular Filtr Rate (80 - 90) 59.8 L Glucose (77 - 141 mg/dL) 238 H POC Glucose (70 - 110 MG/DL) 275 H POC Glucose (mg/dL) (70 - 110 MG/DL) 208 H 223 H 265 H Calcium (8.0 - 10.5 mg/dL) 9.4 Magnesium (1.6 - 2.6 mg/dL) 2.41 Total Bilirubin (0.0 - 1.0 mg/dL) 1.40 H Direct Bilirubin (0.1 - 0.3 MG/DL) 0.70 H Indirect Bilirubin (MG/DL) 0.70 AST (8 - 34 IUnit/L) 52 H ALT (10 - 49 IUnit/L) 26 Total Alk Phosphatase (20 - 125 IUnit/L) 74 Total Protein (6.4 - 8.2 g/dL) 5.5 L Albumin (3.4 - 5.0 g/dL) 3.10 L 06/10 2100 2046 1954 Chemistry Sodium (134 - 147 mEq/L) 137 Potassium (3.4 - 5.0 mEq/L) 4.6 Chloride (100 - 108 mEq/L) 103 Carbon Dioxide (21 - 33 mEq/l) 24 Anion Gap (0 - 20) 15 BUN (7 - 25 mg/dL) 21 Creatinine (0.6 - 1.3 mg/dL) 1.1 POC Creatinine (0.8 - 1.3 mg/dL) 1.0 1.0 0.8 Glomerular Filtr Rate (80 - 90) 73.1 L Glucose (77 - 141 mg/dL) 298 H POC Glucose (70 - 110 MG/DL) 288 H POC Glucose (mg/dL) (70 - 110 MG/DL) 264 H 301 H 250 H Calcium (8.0 - 10.5 mg/dL) 10.6 H Magnesium (1.6 - 2.6 mg/dL) 2.81 H 06/10 1817 1750 Chemistry POC Creatinine (0.8 - 1.3 mg/dL) 0.9 0.8 0.7 L 0.6 L POC Glucose (mg/dL) (70 - 110 MG/DL) 202 H 172 H 143 H 128 H Laboratory Tests 06/11 Coagulation INR (0.8 - 1.2) 1.2 1.3 H PTT ([place]) (25.0 - 39.5 Seconds) 31.2 35.8 PT Patient/Control Mix (9.3 - 12.9 13.2 H 14.2 H SECONDS) Activated Coag Time (74 - 137 SEC) 141 H 590 H 650 H 06/10 06/10 1819 1751 Coagulation Activated Coag Time (74 - 137 SEC) 574 H 158 H Laboratory Tests 06/11 06/10 0209 2047 Hematology WBC (4.5 - 11.0 x10 3/uL) 27.6 H 35.5 H RBC (4.00 - 5.60 x10 6/uL) 3.31 L 3.69 L Hgb (12.5 - 16.9 g/dL) 10.1 L 11.1 L Hct (37.5 - 50.7 %) 30.3 L 34.0 L MCV (81.0 - 99.0 fL) 91.5 92.1 MCH (27.0 - 33.0 pg) 30.5 30.1 MCHC (33.0 - 37.0 g/dL) 33.3 32.6 L RDW (11.5 - 14.5 %) 13.2 13.5 Plt Count (150 - 400 x10 3/uL) 210 204 MPV (7.0 - 9.0 fL) 12.0 H 12.2 H Neut % (Auto) (56.0 - 77.0 %) 87.9 H 83.9 H Lymph % (Auto) (14.0 - 32.0 %) 2.1 L 7.8 L [place] % (Auto) (4.8 - 9.0 %) 8.0 4.0 L Eos % (Auto) (0.3 - 3.7 %) 0.1 L 1.2 Baso % (Auto) (0.0 - 2.0 %) 0.3 0.6 Neut # (Auto) (2.0 - 7.6 x10 3/uL) 24.24 H 29.79 H Lymph # (Auto) (1.0 - 3.8 x10 3/uL) 0.57 L 2.77 [place] # (Auto) (0.1 - 0.8 x10 3/uL) 2.20 H 1.41 H Eos # (Auto) (0.0 - 0.2 x10 3/uL) 0.02 0.44 H Baso # (Auto) (0.0 - 0.2 x10 3/uL) 0.08 0.22 H Abs Immat Gran (auto) (0.00 - 0.03 x10 3/uL) 0.44 H 0.90 H Immature Gran % (0.0 - 2.0 %) 1.6 2.5 H Nucleated RBC % (0 - 0 %) 0.0 0.0 Nucleated RBCs # (Man) (0.0 - 0.1 x10 3/uL) 0.00 0.00 Radiology data: Recent Impressions: RADIOLOGY - XR CHEST 1 V 06/10 1950 Report Impression - Status: SIGNED Entered: 06/11/20232030 IMPRESSION: 1. There is central vascular congestion and diffuse interstitial prominence with mild/moderate bibasilar atelectasis/infiltrates. 2. Tubes and lines as described above. 3. No definite internal radiopaque foreign bodies are identified. The findings of this study were discussed with the OR nurse and anesthesiologist. Impression By: Phoenix Aaron M.D. RADIOLOGY - XR CHEST 1 V 06/10 2044 Report Impression - Status: SIGNED Entered: 06/11/20232132 IMPRESSION: Satisfactory postoperative appearance of the chest. Impression By: [email or web address] Frandy Trimble M.D. RADIOLOGY - XR CHEST 1 V 06/11 0832 Report Impression - Status: SIGNED Entered: 06/12/2023854 IMPRESSION: 1. Status post endotracheal tube removal. No other significant change. Impression By: Phoenix Aaron M.D. Diagnosis, Assessment Plan Consultants: cardiology, cardiovascular surgery Free Text DxA P Notes Free text DxA P notes: Shortness of breath/hypoxia Differential diagnosis includes CHF Placed on Lasix 40 mg IV every 8 hours Cardiology consulted Echo: EF 55 to 60% On 10 L high flow oxygen via nasal cannula S/p CABG on 06/10 Lasix as needed Milrinone drip Multivessel CAD: S/p CABG on 06/10 On aspirin, Plavix, amiodarone On milrinone drip Chest tube in place Cardiology, CT surgery, [facility] on board Leukocytosis: Likely reactive Monitor and defer to further management to [facility] Diabetes mellitus A1c 8.4% Sliding scale insulin as needed Hypertension Renew medications once they have been updated in the computer Check labs in the a.m. Patient does not have a living will or medical power of defense attorney Patient is a full code 06/01 multivessel disease on cath, CTS consulted, patient undergoing preop evaluation for possible CABG. 06/02- pt continues cabg eval, conf Fri, nephro/GI consulted per cts, renal indices wnls today, Abd us confirmed cirrhosis with splenomegaly. 06/03 patient continues preop evaluation for CABG, IV Lasix transition to oral 06/04 CABG preop planning 06/05- CABG planning 06/06 ongoing CABG planning per CTS, blood sugars noted to be elevated in 240s to 300s. Will start on basal insulin 7 units for now daily, continue meal correctional insulin. Patient on glipizide and metformin at home holding for now given CABG eval and and pending surgical date. 06/07- pending CABG eval, d/w Cardiology and started patient on IV lasix 40 mg BID due to increasing wt, symptoms of dyspnea. Monitor I'O's. 06/08- poorly controlled blood sugars noted, increased basal insulin to 10 units daily, add meal time insulin AC, wt based compared to SSI admin, started on 4 Units reg insulin AC. Monitor I/O, contiued on IV lasix 40 mg BID, wt 110 kg today (dry wt reported to be 105 kg). 06/09- optimize insulin for improved glucose control, pending cabg tomorrow 06/10- pending cabg Disposition: chest tube in place, s/p CABG last night. On 10 L high flow oxygen via nasal cannula, white cell count improved from 35-27. Creatinine increased to 1.3, on milrinone drip. On amiodarone, aspirin. Request for melatonin for insomnia. Multiple specialty services on board. PT/OT on board. Continue CVICU care. Quality: Gen Med Crit Care VTE Prophylaxis VTE prophylaxis initiated: yes Current Medications Current medication review: I attest that the foregoing medication list in the medical record is true, accurate, and complete to the best of my knowledge. Advanced Care Plan 65 or Older Discussed with: patient Discussion included: living will, power of defense attorney, code status at 1635 RPT #:[id number] END OF REPORT [facility] 2023-06-12 05:57:00 [facility] Cardiothoracic Surgery Prog REPORT#:[id number] REPORT STATUS: Signed REPORT INITIALIZATION DATE:06/12/23 TIME: 556 PATIENT: MINDY CARTER UNIT #: [id number] ROOM/BED: [place] [id number] : 54 AGE: 67 SEX: M ATTEND: Kimmie Bacon MD ADM AUTHOR: Johnna Pablo Physic REPT SERVICE DT/TIME: 06/12/23556 * ALL edits or amendments must be made on the electronic/computer document * General Post-op: day 1 Status post: 06/11/23 CABG x 3 (COSTA-LAD, SVG-Diag, SVG-OM) EVH (RGSV) ALAA PP Subjective Chief complaint: Postop cabg Review of Systems Constitutional: Reports: fatigue. Respiratory: Denies: HERRING (dyspnea on exertion). All systems rev neg: except as marked Objective General VS/I O Last Documented: Result Date Time Pulse Ox 100 06/11 0348 B/P 121/46 06/11 0348 B/P Mean 64 06/11 0348 Pulse 86 06/11 0348 Resp 21 06/11 0348 FiO2 60 06/11 0325 O2 Delivery BiPAP 06/11 0325 O2 Flow Rate 12 06/10 2145 Temp 98.1 06/10 1123 24 hour I O ending at 0700: 06/11 0700 06/10 1900 Intake Total Output Total 647 1600 Balance -647 -1600 Output, Chest 377 Tube Drainage Output, Urine 270 1600 PATIENT WEIGHT: Weight (lb): 239 Weight (oz): 3.22 Weight (kg): 108.500 Physical Exam General appearance: alert, awake, oriented HEENT: anicteric, mucosal membranes moist, pupils reactive to light Neck: full range of motion, non-tender Cardiovascular: normal heart sounds, regular rate rhythm Respiratory: aerating well, symmetric expansion Abdomen: soft, non-tender Genitourinary: marques Extremities: dry, moves all Musculoskeletal: no muscle spasm Skin: dry, intact Psychiatry: normal affect, normal mood Quality: Trauma Gen Surg Advanced Care Plan 65 or Older Discussed with: patient Discussion included: living will, power of defense attorney, code status Current Medications Current medication review: I attest that the foregoing medication list in the medical record is true, accurate, and complete to the best of my knowledge. VTE Prophylaxis - General VTE prophylaxis initiated: yes Diagnosis, Assessment Plan Hospital course to date: This is a 67-year-old gentleman with a past medical history of hypertension, hyperlipidemia, diabetes, neuropathy, alcohol use, liver cirrhosis, kidney disease, syncope who came to the hospital with shortness of breath and chest tightness for 2 days. Patient describes significant orthopnea and increasing edema in bilateral lower extremities that brought the patient to the hospital. Initial workup positive for mildly elevated troponin and elevated BNP and was diagnosed with NSTEMI and CHF exacerbation with acute hypoxic respiratory failure. Patient then underwent cardiac catheterization for elevated troponin. CV surgery was consulted for multivessel coronary artery disease found on angiogram. 1. multivessel disease -Patient underwent cardiac angiogram: Left main-proximal to mid 60 to 70% stenosis LAD-ostial LAD 90% stenosis Left circumflex-patent RCA-mild 30 to 40% mid stenosis EF 55 to 60% Wall motion is normal, grade 1 diastolic dysfunction, normal systolic function. Mitral valve: Moderately calcified with leaflet thickening. Moderate stenosis. Mild regurgitation. Aortic valve: Thickening and sclerosis 2. Liver disease -Patient recently diagnosed. Patient does not live local to [place]. Will consult gastroenterology to see patient. -EtOH cessation 3. Chronic kidney disease -Patient does not live local to [place]. Will consult nephrology to see patient. Patient will be presented at complex cardiology conference on Wednesday. Further recommendations to follow. 06/04/23 Patient in stable condition Labs and imaging reviewed Case presented at complex cardiology conference this morning and the team deemed patient will be best be suited with CABG. Preop workup ongoing Timing of surgery pending Plan of care discussed with patient and family. All questions were answered. 06/05/23 Patient doing well, denies chest pain Labs reviewed Pre op workup ongoing, pending vein mapping and carotid duplex On 4l nasal cannula, wean off oxygen as tolerated Incentive spirometer teaching Cardiac diet OOB to chair, ambulate Plan of care discussed with patient, all questions were answered. 06/06/23 Patient in stable condition Denies chest pain Wean off oxygen Encourage I-S use and deep breathing Tentatively plan for CABG in the upcoming week Plan of care discussed with patient, all questions were answered. 06/07/23 Patient seen and examined, denies chest pain Labs reviewed I-S use encourage, wean off oxygen as tolerated, on 2 L nasal cannula Tolerating diet Out of bed in chair, PT OT Timing of surgery pending Plan of care discussed with the patient, all questions were answered 06/08/23 Patient in stable condition Labs reviewed On room air, encourage I-S use Preop workup completed I will tentatively schedule him for surgery on Wednesday Plan of care discussed with patient, all questions were answered 06/09/23 Patient in stable condition Labs reviewed On room air, encourage I-S use Preop workup completed I will tentatively schedule him for surgery on Wednesday Plan of care discussed with patient, all questions were answered 06/10/23 Patient is stable condition, denies chest pain On room air Preop workup completed Plan for surgery on Wednesday-CABG and possible mitral valve I have discussed with the patient the operation, risk involved, calculated STS risk score, benefits, alternatives, and complicated. Patient acknowledges understanding and is willing to proceed. 06/11/23 CABG x 3 (COSTA-LAD, SVG-Diag, SVG-OM) EVH (RGSV) ALAA PP 06/12/23 POD 1 AAO x 3 Respiratory: on 10 L NC, wean as tolerated. Encourage IS. CT in place 325/196, leave in place, monitor outputs. Cardiac: Sinus rhythm. on levo 5, epi 2, Milrinone. GI: advance diet as tolerated. continue Bowel regimen. : Marques in place. Patient walked unit with PT DC Tylenol due to liver disease Patient was seen and examined at [facility]. Plan of care discussed with multidisciplinary team Consultants: cardiology, cardiovascular surgery at 1412 at 0732 RPT #:[id number] END OF REPORT [facility] 2023-06-12 02:19:00 [id number] [address] PATIENT NAME: MINDY CARTER ADMIT DATE: 05/31/23 ACCOUNT NO: [id number] ROOM NO: [facility] AGE: 67 REPORT TYPE: eELECTROCARDIOGRAM REPORT SEX: M ADMITTING PHYSICIAN:Eleonora Mai MD ATTENDING PHYSICIAN:Kimmie Bacon MD Order: [id number] Test Reason : pod 1 Test Date/Time Stamp: WedJun 12 2023 02:19:34 Blood Pressure : / mmHG Vent. Rate : 091 BPM Atrial Rate : 091 BPM P-R Int : 170 ms QRS Dur : 170 ms QT Int : 442 ms P-R-T Axes : 047 -81 059 degrees QTc Int : 543 ms Sinus rhythm with premature atrial complexes with aberrant conduction Left axis deviation Right bundle branch block Septal infarct (cited on or before 31-MAY-2023) Abnormal ECG When compared with ECG of 11-JUN-2023 22:27, Significant changes have occurred Confirmed by Clayton Nathan ([id number]) on 06/13/2023 10:35:14 AM Referred By: Self Referred Confirmed by:Clayton Nathan at 1035 PATIENT NAME: MINDY CARTER [facility] 2023-06-11 22:27:00 [id number] [place] [address] PATIENT NAME: MINDY CARTER ADMIT DATE: 05/31/23 ACCOUNT NO: [id number] ROOM NO: [id number] AGE: 67 REPORT TYPE: eELECTROCARDIOGRAM REPORT SEX: M ADMITTING PHYSICIAN:Eleonora Mai MD ATTENDING PHYSICIAN:Denise Montejo MD Order: [id number] Test Reason : pod 0 Test Date/Time Stamp: WedJun 11 2023 22:27:53 Blood Pressure : / mmHG Vent. Rate : 101 BPM Atrial Rate : 101 BPM P-R Int : 158 ms QRS Dur : 158 ms QT Int : 410 ms P-R-T Axes : 044 -85 076 degrees QTc Int : 531 ms Sinus tachycardia Left axis deviation Right bundle branch block Anteroseptal infarct (cited on or before 31-MAY-2023) Abnormal ECG When compared with ECG of 31-MAY-2023 11:34, Significant changes have occurred Confirmed by Clayton Nathan ([id number]) on 06/12/2023 5:51:00 AM Referred By: Self Referred Confirmed by:Clayton Nathan at 0551 PATIENT NAME: MINDY CARTER [facility] 2023-06-11 21:31:00 [facility] ([facility]) Critical Care Consult Note REPORT#:[id number] REPORT STATUS: Signed REPORT INITIALIZATION DATE:06/11/23 TIME: 2130 PATIENT: MINDY CARTER UNIT #: [id number] ROOM/BED: [place] [id number] : [birth year] AGE: 67 SEX: M ATTEND: Kimmie Bacon MD ADM AUTHOR: Kareem Mcdonnell MD REPT SERVICE DT/TIME: 06/11/232130 * ALL edits or amendments must be made on the electronic/computer document * History of Present Illness HPI Requesting clinician: Dr Martel Reason for consult: Critical care management Chief complaint: CABG x 3 (COSTA-LAD, SVG-Diag, SVG-OM) EVH (RGSV) MATHIEU SINGLETON PCP: PCP: No Primary or Family Physician HPI: This is a 67-year-old male with a past medical history significant for cirrhosis , high blood pressure, hyperlipidemia, diabetes, history of alcohol use, and CKD stage II admitted to the hospital with shortness of breath NSTEMI, underwent cardiac cath showed multivessel CAD. Patient underwent CABG x 3 (COSTA-LAD, SVG- Diag, SVG-OM)today. Intraoperatively patient received 400 cc crystalloid, 570 Cell Saver. Urine output was 200 cc. On arrival to ICU patient was intubated on ventilatory support. He was on 5 of Levophed, 10 of epinephrine and 0.5 of milrinone. History - Adult longitudinal Past medical history: Reports: Kidney disease/stones. Additional medical history: Hypertension, hyperlipidemia, diabetes mellitus, neuropathy, syncope, alcohol use, stage II CKD, liver cirrhosis Additional surgical history: Appendectomy Additional family history: None Alcohol use: Alcohol use (3 SHOTS OF WHISKEY/DAY) Drug use: Denies recreational drugs Smoking status for patients 13 years old or older: Never Smoker Allergies: Coded Allergies: No Known Allergies (05/31/23) Review of Systems ROS Unable to obtain due to: Patient intubated on mechanical ventilator Objective Physical Exam VS/I O: Last Documented: Result Date Time Pulse Ox 91 06/11 2039 FiO2 100 06/11 2039 O2 Delivery Ventilator 06/11 2039 Pulse 81 06/11 2039 O2 Flow Rate 2 06/10 1150 B/P 119/74 06/10 1123 B/P Mean 89.2 06/10 1122 Temp 36.7 06/10 1123 Resp 18 06/10 1123 24 hour I O ending at 0700: 06/10 0700 06/09 1900 Intake Total 300 1307.00 Output Total 450 2280 Balance -150 -973.00 Intake, IV 557.00 Intake, Oral 300 750 Number 2 Bowel Movements Number Voids 1 Output, Urine 450 2280 Patient 108.5 kg Weight Weight Standing scale Measurement Method Patient Weight and BMI Weight (kg): 108.500 BMI: 35.7 Medications: Active Meds + DC'd Last 24 Hrs Ipratropium [place] (ATROVENT) 500 MCG RTQ2H PRN PRN INH Cyanocobalamin (Vitamin B-12 500 mcg tab) 500 MCG DAILY PO Ferrous Sulfate (FERROUS SULFATE) 325 MG DAILY PO Bisacodyl (DULCOLAX) 10 MG ONCE PRN RECTAL Magnesium Hydroxide (MILK OF MAGNESIA) 30 ML ONCE PRN PO Atorvastatin Calcium (LIPITOR) 40 MG 2100 PO (CAN) Clopidogrel Bisulfate (Plavix) 75 MG DAILY PO Polyethylene Glycol (MIRALAX) 17 GM DAILY PO Pantoprazole (PROTONIX) 40 MG DAILY@0600 PO Aspirin (ASPIRIN) 81 MG DAILY PO Fentanyl Citrate (SUBLIMAZE) 25 MCG ONCE ONE IV (DC) Amiodarone HCl (CORDARONE) 200 MG TID PO Docusate Sodium (COLACE) 100 MG BID PO Gabapentin (NEURONTIN) 200 MG BID PO Metoprolol Tartrate (LOPRESSOR) 12.5 MG Q12HR PO Mupirocin (BACTROBAN 2% 22 GM OINTMENT) 1 APPLIC BID NASAL Sennosides (Senna Lax 8.6 MG TABLET) 17.2 MG BEDTIME PO Fentanyl Citrate (SUBLIMAZE) 0 .STK-MED ONE IV (DC) Ipratropium [place] (ATROVENT) 500 MCG RTQ4H INH Acetaminophen (TYLENOL) 650 MG Q4H PRN PRN PO Acetaminophen (TYLENOL) 650 MG Q4H PRN PRN RECTAL Albumin Human (ALBUMINAR 25%) 25 GM ASDIR PRN IV Calcium Chloride (CALCIUM CHLORIDE) 1 GM ASDIR PRN IV Cefazolin Sodium (KEFZOL OR ANCEF) 6 GM ONCE ONE IV (CKD) Sodium Chloride (SODIUM CHLORIDE 0.9%) 500 ML Dextrose/Water (DEXTROSE 10% IN WATER) 125 ML ASDIR PRN IV (CKD) Dextrose/Water (DEXTROSE 10% IN WATER) 250 ML ASDIR PRN IV (CKD) Epinephrine (ADRENALIN CHLORIDE) 4 MG ASDIR IV Dextrose/Water (DEXTROSE 5% WATER) 246 ML Glucagon (GLUCAGON) 1 MG ASDIR PRN IM (CAN) Insulin Human Regular (HumuLIN R) 100 UNIT ASDIR IV (CKD) Sodium Chloride (SODIUM CHLORIDE 0.9%) 99 ML Magnesium Sulfate (MAGNESIUM SULFATE 4GM/SWFI 100ML) 100 ML ASDIR PRN IV Magnesium Sulfate (MAGNESIUM SULFATE 2GM/SWFI 50ML) 50 ML ASDIR PRN IV Magnesium Sulfate/Dextrose (MAGNESIUM SULFATE 1GM/D5W 100ML) 100 ML ASDIR PRN IV Nitroglycerin/Dextrose (NITROGLYCERIN 50,000MCG/D5W 250ML) 250 ML ASDIR IV Norepinephrine Bitartrate (NOREPINEPHRINE 8 MG/NS 250 ML) 250 ML TITRATE IV Ondansetron HCl (ZOFRAN) 4 MG Q6H PRN PRN IV Oxycodone HCl (ROXICODONE) 5 MG Q4H PRN PRN PO Oxycodone HCl (ROXICODONE) 10 MG Q4H PRN PRN PO Potassium Chloride (KCL 20MEQ/SWFI 100ML) 100 ML ASDIR PRN IV Sodium Bicarbonate (SODIUM BICARBONATE) 50 MEQ ASDIR PRN IV Sodium Chloride (SODIUM CHLORIDE 0.9%) 1,000 ML .Q20H IV Sodium Chloride (SODIUM CHLORIDE 0.9%) 250 ML Q24H IV Calcium Chloride (CALCIUM CHLORIDE) 0 .STK-MED ONE IV (DC) Milrinone Lactate/Dextrose (MILRINONE 20MG/D5W 100ML) 100 ML .STK-MED ONE IV (DC) Fentanyl Citrate (SUBLIMAZE) 0 .STK-MED ONE IV (DC) Dexamethasone Sodium Phosphate (DECADRON) 0 .STK-MED ONE .ROUTE (DC) Etomidate (AMIDATE) 0 .STK-MED ONE IV (DC) Fentanyl Citrate (SUBLIMAZE) 0 .STK-MED ONE IV (DC) Fentanyl Citrate (SUBLIMAZE) 0 .STK-MED ONE .ROUTE (DC) Ondansetron HCl (ZOFRAN) 0 .STK-MED ONE .ROUTE (DC) Rocuronium [place] (ZEMURON) 0 .STK-MED ONE IV (DC) Albumin Human (ALBUMINAR-25%) 100 ML .STK-MED ONE IV (DC) Sodium Chloride (SODIUM CHLORIDE 0.9%) 250 ML .STK-MED ONE IV (DC) Epinephrine (ADRENALIN CHLORIDE) 0 .STK-MED ONE .ROUTE (DC) Heparin Sodium (HEPARIN SODIUM) 0 .STK-MED ONE .ROUTE (DC) Insulin Human Regular (HumuLIN R 100 UNITS/NS 100ML) 100 ML .STK-MED ONE IV (DC) Norepinephrine Bitartrate (NOREPINEPHRINE 8 MG/NS 250 ML) 250 ML .STK-MED ONE IV (DC) Aminocaproic Acid (AMICAR) 0 .STK-MED ONE .ROUTE (DC) Calcium Chloride (CALCIUM CHLORIDE) 0 .STK-MED ONE IV (DC) Magnesium Sulfate (MAGNESIUM SULFATE) 0 .STK-MED ONE .ROUTE (DC) Nitroglycerin/Dextrose (NITROGLYCERIN 50,000MCG/D5W 250ML) 250 ML .STK-MED ONE IV (DC) Protamine Sulfate (PROTAMINE SULFATE) 0 .STK-MED ONE IV (DC) Ropivacaine (NAROPIN 0.5% 150 MG/30mL) 0 .STK-MED ONE .ROUTE (DC) Sodium Chloride (SODIUM CHLORIDE 0.9%) 100 ML .STK-MED ONE IV (DC) Albumin Human (ALBUMINAR-25%) 100 ML .STK-MED ONE IV (DC) Heparin Sodium (HEPARIN SODIUM) 0 .STK-MED ONE .ROUTE (DC) Lidocaine HCl (XYLOCAINE IV) 0 .STK-MED ONE IV (DC) Magnesium Sulfate (MAGNESIUM SULFATE) 0 .STK-MED ONE IV (DC) Phenylephrine HCl (MEME-SYNEPHRINE 10MG/ML AMP) 0 .STK-MED ONE .ROUTE (DC ) Sodium Bicarbonate (SODIUM BICARBONATE) 0 .STK-MED ONE IV (DC) Sodium Chloride (SODIUM CHLORIDE 0.9%) 100 ML .STK-MED ONE IV (DC) Cefazolin Sodium (KEFZOL OR ANCEF) 0 .STK-MED ONE .ROUTE (DC) Sodium Chloride (SODIUM CHLORIDE 0.9%) 250 ML .STK-MED ONE IV (DC) Vancomycin HCl (Vancomycin 1,500 mg Inj (B2)) 0 .STK-MED ONE IV (DC) Insulin Glargine (Semglee) 15 UNIT DAILY SUBQ (DC) Metoprolol Tartrate (LOPRESSOR) 6.25 MG ONCE ONE PO (DC) Vancomycin HCl (Vancomycin 1,500 mg Inj (B2)) 1,500 MG PREOP ONCALL IV ( DC) Sodium Chloride (NS 0.9%) 500 ML Verapamil HCl (ISOPTIN) 16.6 MG .Q24H IV (DC) Heparin Sodium (Porcine) (HEPARIN SODIUM) 1,660 UNIT Sodium Bicarbonate (SODIUM BICARBONATE) 0.7 ML Nitroglycerin/Dextrose (NITROGLYCERIN 50MG/D5W 250ML) 8.3 MG Lactated Ringer's (LACTATED RINGERS) 949.5 ML Insulin Human Lispro (HUMALOG) 5 UNIT AC SUBQ (DC) Acetaminophen (TYLENOL EXTRA STRENGTH) 1,000 MG PREOP ONCALL PO (DC) Gabapentin (NEURONTIN) 200 MG PREOP ONCALL PO (DC) Furosemide (LASIX 40 mg/4 mL INJECTION) 40 MG BID IV (DC) Gabapentin (NEURONTIN) 100 MG BEDTIME PO (DC) Docusate Sodium (COLACE) 100 MG DAILY PRN PRN PO (DC) Polyethylene Glycol (MIRALAX) 17 GM DAILY PRN PRN PO (DC) Lactulose (LACTULOSE) 10 GM DAILY PRN PRN PO Multivitamins (TAB-A-KANDI) 1 TAB DAILY PO (DC) Thiamine HCl (THIAMINE HCL) 100 MG DAILY PO Aspirin (ASPIRIN) 81 MG DAILY PO (DC) Carvedilol (COREG) 12.5 MG Q12HR PO (DC) Amlodipine Besylate (NORVASC) 10 MG BEDTIME PO (DC) Atorvastatin Calcium (LIPITOR) 40 MG 2100 PO (DC) Doxazosin Mesylate (CARDURA) 2 MG BEDTIME PO (DC) Insulin Human Lispro (HUMALOG) 0 AC HS SUBQ (DC) Acetaminophen (TYLENOL) 650 MG Q4H PRN PRN PO (DC) Dextrose/Water (DEXTROSE 10% IN WATER) 125 ML ASDIR PRN IV (DC) Dextrose/Water (DEXTROSE 10% IN WATER) 250 ML ASDIR PRN IV (DC) Glucagon (GLUCAGON) 1 MG ASDIR PRN IM (DC) Hydralazine HCl (APRESOLINE) 10 MG Q6H PRN PRN IV (DC) Ondansetron HCl (ZOFRAN) 4 MG Q4H PRN PRN IV (DC) Nitroglycerin (NITROSTAT) 0.4 MG Q5M PRN PRN SL (DC) Heparin Sodium (HEPARIN 5000 UNITS/ML) 9,000 UNIT ASDIR PRN PRN IV (DC) Heparin Sodium (HEPARIN 5000 UNITS/ML) 4,500 UNIT ASDIR PRN PRN IV (DC) Heparin Sodium (Porcine) (HEPARIN 25,000 UNITS/ 1/2NS 500ML) 500 ML ASDIR IV (DC) Results Findings/Data: Laboratory Tests 06/11/23 2047: [Embedded Image Not Available] 06/11/23 0309: [Embedded Image Not Available] Laboratory Tests 06/10 06/10 06/10 06/10 2100 1955 1906 1845 Blood Gas Puncture Site Art Line O2 Saturation (90 - 100 %) 93.5 99.1 99.9 100.0 ABG pH (7.35 - 7.45) 7.371 7.424 7.460 H 7.428 ABG pCO2 (35.0 - 45 mmHg) 39.7 32.5 L 38.2 41.4 ABG pO2 (80 - 100.0 mmHg) 70.5 L 134.0 H 235.3 *H 431.5 *H ABG PO2/FiO2 Ratio (mm/Hg) 70.50 ABG HCO3 (22.0 - 26.0 MMOL/L) 23.0 21.3 L 27.2 H 27.4 H ABG Total CO2 24.2 22.3 28.4 28.6 ABG Base Excess (-4.0 - 4.0 MMOL/L) -2.2 -2.6 3.2 2.7 ABG Hematocrit (37.5 - 50.7 %) 42 27 L 30 L 30 L ABG Hemoglobin (12.5 - 16.9 G/DL) 14.4 9.0 L 10.1 L 10.1 L Mabel Test N/A Sodium (134 - 147 mmol/L) 139 139 137 137 Potassium (3.4 - 5.0 mmol/L) 4.6 4.6 5.4 H 5.0 Chloride (100 - 108 mmol/L) 104 109 H 102 103 Ionized Calcium (1.12 - 1.32 MMOL/L) 1.47 H 1.29 1.03 L 1.00 L Lactic Acid (0.9 - 1.7 mmol/l) 2.3 H 2.1 H 1.0 < 0.3 L O2 Delivery Device + Vent Mode AC Vent Rate (/MIN) 20 FiO2 (%) 100 Tidal Volume (ml) 450 PEEP (cmH2O) 8 06/10 06/10 1817 1750 Blood Gas O2 Saturation (90 - 100 %) 99.4 98.8 ABG pH (7.35 - 7.45) 7.404 7.371 ABG pCO2 (35.0 - 45 mmHg) 34.4 L 35.6 ABG pO2 (80 - 100.0 mmHg) 156.7 H 126.6 H ABG HCO3 (22.0 - 26.0 MMOL/L) 21.5 L 20.6 L ABG Total CO2 22.6 21.7 ABG Base Excess (-4.0 - 4.0 MMOL/L) -2.7 -4.1 L ABG Hematocrit (37.5 - 50.7 %) 30 L 30 L ABG Hemoglobin (12.5 - 16.9 G/DL) 10.4 L 10.0 L Sodium (134 - 147 mmol/L) 140 142 Potassium (3.4 - 5.0 mmol/L) 3.5 3.1 L Chloride (100 - 108 mmol/L) 111 H 112 H Ionized Calcium (1.12 - 1.32 MMOL/L) 0.96 L 0.94 L Lactic Acid (0.9 - 1.7 mmol/l) 0.6 L 0.5 L Laboratory Tests 06/10 06/10 06/10 06/10 06/10 2100 2046 1954 1906 1845 Chemistry Sodium (134 - 147 mEq/L) 137 Potassium (3.4 - 5.0 mEq/L) 4.6 Chloride (100 - 108 mEq/L) 103 Carbon Dioxide (21 - 33 mEq/l) 24 Anion Gap (0 - 20) 15 BUN (7 - 25 mg/dL) 21 Creatinine (0.6 - 1.3 mg/dL) 1.1 POC Creatinine (0.8 - 1.3 mg/dL) 1.0 0.8 0.9 0.8 Glomerular Filtr Rate (80 - 90) 73.1 L Glucose (77 - 141 mg/dL) 298 H POC Glucose (mg/dL) (70 - 110 MG/DL) 301 H 250 H 202 H 172 H Calcium (8.0 - 10.5 mg/dL) 10.6 H Magnesium (1.6 - 2.6 mg/dL) 2.81 H 06/10 06/10 06/10 06/10 06/10 1817 1750 1525 1123 0738 Chemistry POC Creatinine (0.8 - 1.3 mg/dL) 0.7 L 0.6 L POC Glucose (70 - 110 MG/DL) 180 H 218 H 223 H POC Glucose (mg/dL) (70 - 110 MG/DL) 143 H 128 H 06/10 06/10 0309 0309 Chemistry Sodium (134 - 147 mEq/L) 135 Potassium (3.4 - 5.0 mEq/L) 3.7 Chloride (100 - 108 mEq/L) 101 Carbon Dioxide (21 - 33 mEq/l) 26 Anion Gap (0 - 20) 12 BUN (7 - 25 mg/dL) 19 Creatinine (0.6 - 1.3 mg/dL) 1.1 Glomerular Filtr Rate (80 - 90) 73.1 L Glucose (77 - 141 mg/dL) 195 H Calcium (8.0 - 10.5 mg/dL) 8.7 Magnesium (1.6 - 2.6 mg/dL) 1.84 Total Bilirubin (0.0 - 1.0 mg/dL) 0.70 AST (8 - 34 IUnit/L) 34 ALT (10 - 49 IUnit/L) 31 Total Alk Phosphatase (20 - 125 IUnit/L) 121 B-Natriuretic Peptide (0 - 100 PG/ML) 224.0 H Total Protein (6.4 - 8.2 g/dL) 6.7 Albumin (3.4 - 5.0 g/dL) 3.40 Laboratory Tests 06/10 1908 1847 1819 1751 Coagulation Activated Coag Time (74 - 137 SEC) 141 H 590 H 650 H 574 H 158 H 06/10 06/10 0851 0309 Coagulation INR (0.8 - 1.2) 1.1 PTT ([place]) (25.0 - 39.5 Seconds) 73.2 H 52.9 H PT Patient/Control Mix (9.3 - 12.9 SECONDS) 12.2 Laboratory Tests 06/10 06/10 2047 0309 Hematology WBC (4.5 - 11.0 x10 3/uL) 35.5 H 7.2 RBC (4.00 - 5.60 x10 6/uL) 3.69 L 3.87 L Hgb (12.5 - 16.9 g/dL) 11.1 L 11.6 L Hct (37.5 - 50.7 %) 34.0 L 35.2 L MCV (81.0 - 99.0 fL) 92.1 91.0 MCH (27.0 - 33.0 pg) 30.1 30.0 MCHC (33.0 - 37.0 g/dL) 32.6 L 33.0 RDW (11.5 - 14.5 %) 13.5 13.3 Plt Count (150 - 400 x10 3/uL) 204 155 MPV (7.0 - 9.0 fL) 12.2 H 12.2 H Neut % (Auto) (56.0 - 77.0 %) 83.9 H 73.5 Lymph % (Auto) (14.0 - 32.0 %) 7.8 L 8.5 L [place] % (Auto) (4.8 - 9.0 %) 4.0 L 12.6 H Eos % (Auto) (0.3 - 3.7 %) 1.2 3.6 Baso % (Auto) (0.0 - 2.0 %) 0.6 0.7 Neut # (Auto) (2.0 - 7.6 x10 3/uL) 29.79 H 5.26 Lymph # (Auto) (1.0 - 3.8 x10 3/uL) 2.77 0.61 L [place] # (Auto) (0.1 - 0.8 x10 3/uL) 1.41 H 0.90 H Eos # (Auto) (0.0 - 0.2 x10 3/uL) 0.44 H 0.26 H Baso # (Auto) (0.0 - 0.2 x10 3/uL) 0.22 H 0.05 Abs Immat Gran (auto) (0.00 - 0.03 x10 3/uL) 0.90 H 0.08 H Immature Gran % (0.0 - 2.0 %) 2.5 H 1.1 Nucleated RBC % (0 - 0 %) 0.0 0.0 Nucleated RBCs # (Man) (0.0 - 0.1 x10 3/uL) 0.00 0.00 Microbiology: 06/09 153 NASAL: MSSA Surveillance Screen - COMP 06/09 153 NASAL: MRSA DNA Surveillance Screen - COMP Radiology data: Recent Impressions: RADIOLOGY - XR CHEST 1 V 06/10 0828 Report Impression - Status: SIGNED Entered: 06/11/2023942 IMPRESSION: Cardiomegaly with diffuse congestive changes bilaterally. Impression By: [place] - Gabrielle Jean M.D. RADIOLOGY - XR CHEST 1 V 06/10 1950 Report Impression - Status: SIGNED Entered: 06/11/20232030 IMPRESSION: 1. There is central vascular congestion and diffuse interstitial prominence with mild/moderate bibasilar atelectasis/infiltrates. 2. Tubes and lines as described above. 3. No definite internal radiopaque foreign bodies are identified. The findings of this study were discussed with the OR nurse and anesthesiologist. Impression By: [place] - Irwin Aaron M.D. 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 He was on ventilatory support, will wean to extubate. Will keep saturation above 92%, will consider BiPAP if needed. Patient initially was sedated, woke up and was obeying commands, complaining of pain, fentanyl was given, will continue pain control. Monitor chest tube output. Monitor H H, transfuse as needed. Monitor urine output. Monitor kidney function. Monitor electrolytes and replace as needed. GI and DVT prophylaxis. Case was discussed at bedside with the nursing staff and respiratory therapist. Critical care time spent in excess of 45 minutes, excluding a procedure time. at 0723 RPT #:[id number] END OF REPORT [facility] 2023-06-11 20:05:00 [facility] ([facility]) Brief Op Note REPORT#:[id number] REPORT STATUS: Signed REPORT INITIALIZATION DATE:06/11/23 TIME: 2004 PATIENT: MINDY CARTER UNIT #: [id number] ROOM/BED: [place] [address] : 54 AGE: 67 SEX: M ATTEND: Kimmie Bacon MD ADM AUTHOR: Nathaniel Martel MD REPT SERVICE DT/TIME: 06/11/232004 * ALL edits or amendments must be made on the electronic/computer document * Op/Inv Proc Note - Brief Pre-procedure diagnosis: CAD Post-procedure diagnosis: same as pre procedure dx Procedures performed: CABG x 3 (COSTA-LAD, SVG-Diag, SVG-OM) EVH (RGSV) ALAA PP Primary Surgeon: Tahmina Immigration Investigator(s): Seven Bradshaw Findings: LAD-2mm Complications: none Estimated blood loss in ml's: 100 cc Specimens removed/altered: SEFERINO at 0732 RPT #:[id number] END OF REPORT [facility] 2023-06-11 13:06:00 [facility] Gastroenterology Progress Note REPORT#:[id number] REPORT STATUS: Signed REPORT INITIALIZATION DATE:06/11/23 TIME: 130 PATIENT: MINDY CARTER UNIT #: [id number] ROOM/BED: [place] [address] : 53 AGE: 67 SEX: M ATTEND: Denise Montejo MD ADM AUTHOR: Farideh Harris REPT SERVICE DT/TIME: 06/11/23 1306 * ALL edits or amendments must be made on the electronic/computer document * Farideh Harris 06/11/23 1306: Subjective Patient reports: Yes: bowel movement, passing gas. No: abdominal pain, black stools, nausea, rectal bleeding, vomiting. Review of Systems Constitutional: Denies: chills, fever. Respiratory: Denies: SOB. Cardiovascular: Denies: chest pain. Neuro: Denies: headache. Objective General VS/I O: Last Documented: Result Date Time Pulse Ox 96 06/10 1150 O2 Delivery Nasal cannula 06/10 1150 O2 Flow Rate 2 06/10 1150 B/P 119/74 06/10 1123 B/P Mean 89.2 06/10 1123 Temp 36.7 06/10 1123 Pulse 93 06/10 1123 Resp 18 06/10 1123 FiO2 40 06/04 0925 24 hour I O ending at 0700: 06/10 0700 06/09 1900 Intake Total 300 1307.00 Output Total 450 2280 Balance -150 -973.00 Intake, IV 557.00 Intake, Oral 300 750 Number 2 Bowel Movements Number Voids 1 Output, Urine 450 2280 Patient 108.5 kg Weight Weight Standing scale Measurement Method PATIENT WEIGHT: Weight (lb): 239 Weight (oz): 3.22 Weight (kg): 108.500 Medications: Active Meds + DC'd Last 24 Hrs Fentanyl Citrate (SUBLIMAZE) 0 .STK-MED ONE IV (DC) Dexamethasone Sodium Phosphate (DECADRON) 0 .STK-MED ONE .ROUTE (DC) Etomidate (AMIDATE) 0 .STK-MED ONE IV (DC) Fentanyl Citrate (SUBLIMAZE) 0 .STK-MED ONE IV (DC) Fentanyl Citrate (SUBLIMAZE) 0 .STK-MED ONE .ROUTE (DC) Ondansetron HCl (ZOFRAN) 0 .STK-MED ONE .ROUTE (DC) Rocuronium [place] (ZEMURON) 0 .STK-MED ONE IV (DC) Albumin Human (ALBUMINAR-25%) 100 ML .STK-MED ONE IV (DC) Sodium Chloride (SODIUM CHLORIDE 0.9%) 250 ML .STK-MED ONE IV (DC) Epinephrine (ADRENALIN CHLORIDE) 0 .STK-MED ONE .ROUTE (DC) Heparin Sodium (HEPARIN SODIUM) 0 .STK-MED ONE .ROUTE (DC) Insulin Human Regular (HumuLIN R 100 UNITS/NS 100ML) 100 ML .STK-MED ONE IV (DC) Norepinephrine Bitartrate (NOREPINEPHRINE 8 MG/NS 250 ML) 250 ML .STK-MED ONE IV (DC) Aminocaproic Acid (AMICAR) 0 .STK-MED ONE .ROUTE (DC) Calcium Chloride (CALCIUM CHLORIDE) 0 .STK-MED ONE IV (DC) Magnesium Sulfate (MAGNESIUM SULFATE) 0 .STK-MED ONE .ROUTE (DC) Nitroglycerin/Dextrose (NITROGLYCERIN 50,000MCG/D5W 250ML) 250 ML .STK-MED ONE IV (DC) Protamine Sulfate (PROTAMINE SULFATE) 0 .STK-MED ONE IV (DC) Ropivacaine (NAROPIN 0.5% 150 MG/30mL) 0 .STK-MED ONE .ROUTE (DC) Sodium Chloride (SODIUM CHLORIDE 0.9%) 100 ML .STK-MED ONE IV (DC) Albumin Human (ALBUMINAR-25%) 100 ML .STK-MED ONE IV (DC) Heparin Sodium (HEPARIN SODIUM) 0 .STK-MED ONE .ROUTE (DC) Lidocaine HCl (XYLOCAINE IV) 0 .STK-MED ONE IV (DC) Magnesium Sulfate (MAGNESIUM SULFATE) 0 .STK-MED ONE IV (DC) Phenylephrine HCl (MEME-SYNEPHRINE 10MG/ML AMP) 0 .STK-MED ONE .ROUTE (DC ) Sodium Bicarbonate (SODIUM BICARBONATE) 0 .STK-MED ONE IV (DC) Sodium Chloride (SODIUM CHLORIDE 0.9%) 100 ML .STK-MED ONE IV (DC) Cefazolin Sodium (KEFZOL OR ANCEF) 0 .STK-MED ONE .ROUTE (DC) Sodium Chloride (SODIUM CHLORIDE 0.9%) 250 ML .STK-MED ONE IV (DC) Vancomycin HCl (Vancomycin 1,500 mg Inj (B2)) 0 .STK-MED ONE IV (DC) Insulin Glargine (Semglee) 15 UNIT DAILY SUBQ Metoprolol Tartrate (LOPRESSOR) 6.25 MG ONCE ONE PO (DC) Vancomycin HCl (Vancomycin 1,500 mg Inj (B2)) 1,500 MG PREOP ONCALL IV ( DC) Sodium Chloride (NS 0.9%) 500 ML Verapamil HCl (ISOPTIN) 16.6 MG .Q24H IV (CKD) Heparin Sodium (Porcine) (HEPARIN SODIUM) 1,660 UNIT Sodium Bicarbonate (SODIUM BICARBONATE) 0.7 ML Nitroglycerin/Dextrose (NITROGLYCERIN 50MG/D5W 250ML) 8.3 MG Lactated Ringer's (LACTATED RINGERS) 949.5 ML Insulin Human Lispro (HUMALOG) 5 UNIT AC SUBQ Acetaminophen (TYLENOL EXTRA STRENGTH) 1,000 MG PREOP ONCALL PO (CKD) Gabapentin (NEURONTIN) 200 MG PREOP ONCALL PO (CKD) Furosemide (LASIX 40 mg/4 mL INJECTION) 40 MG BID IV Gabapentin (NEURONTIN) 100 MG BEDTIME PO Docusate Sodium (COLACE) 100 MG DAILY PRN PRN PO Polyethylene Glycol (MIRALAX) 17 GM DAILY PRN PRN PO Lactulose (LACTULOSE) 10 GM DAILY PRN PRN PO Multivitamins (TAB-A-KANDI) 1 TAB DAILY PO Thiamine HCl (THIAMINE HCL) 100 MG DAILY PO Aspirin (ASPIRIN) 81 MG DAILY PO Carvedilol (COREG) 12.5 MG Q12HR PO Amlodipine Besylate (NORVASC) 10 MG BEDTIME PO Atorvastatin Calcium (LIPITOR) 40 MG 2100 PO Doxazosin Mesylate (CARDURA) 2 MG BEDTIME PO Insulin Human Lispro (HUMALOG) 0 AC HS SUBQ Acetaminophen (TYLENOL) 650 MG Q4H PRN PRN PO Dextrose/Water (DEXTROSE 10% IN WATER) 125 ML ASDIR PRN IV (CKD) Dextrose/Water (DEXTROSE 10% IN WATER) 250 ML ASDIR PRN IV (CKD) Glucagon (GLUCAGON) 1 MG ASDIR PRN IM Hydralazine HCl (APRESOLINE) 10 MG Q6H PRN PRN IV Ondansetron HCl (ZOFRAN) 4 MG Q4H PRN PRN IV Nitroglycerin (NITROSTAT) 0.4 MG Q5M PRN PRN SL Heparin Sodium (HEPARIN 5000 UNITS/ML) 9,000 UNIT ASDIR PRN PRN IV Heparin Sodium (HEPARIN 5000 UNITS/ML) 4,500 UNIT ASDIR PRN PRN IV Heparin Sodium (Porcine) (HEPARIN 25,000 UNITS/ 1/2NS 500ML) 500 ML ASDIR IV (CKD) Dietitian nutrition assessment The data set between the solid lines has been imported from the dietitian's assessment. BMI Calculated: 35.7 Nutrition related diagnosis: Nutrition diagnosis details: Nutrition problem: Increased nutrient needs Nutrition etiology: Acute illness Nutrition signs and symptoms: CARDIAC POST-OP Nutrition prescription: 1. CARDIAC CCD4 DIET 2. ENSURE MAX TID POST-OP 3. DIABETIC DIET EDUCATION PRIOR TO DC Dietitian name: Anju Armendariz RD, LD Assessment completed: 06/11/23 Physical Exam General appearance: alert, awake, oriented HEENT: atraumatic, normocephalic Neck: full range of motion Cardiovascular: normal S1/S2, regular rate rhythm Respiratory: symmetric expansion, no distress Abdomen: non-tender, normal bowel sounds, soft, no distention, no guarding Extremities: moves all Musculoskeletal: normal inspection Neuro/BUSINESS AREA MANAGER: alert, oriented X 3, normal speech Skin: dry, intact, normal color Psychiatry: normal affect, normal judgment/insight, normal mood Results Findings/Data: Laboratory Tests 06/11/23 0309: [Embedded Image Not Available] Laboratory Tests 06/10 06/10 06/10 06/10 06/10 1525 [id number] 0309 0309 Chemistry Sodium (134 - 147 mEq/L) 135 Potassium (3.4 - 5.0 mEq/L) 3.7 Chloride (100 - 108 mEq/L) 101 Carbon Dioxide (21 - 33 mEq/l) 26 Anion Gap (0 - 20) 12 BUN (7 - 25 mg/dL) 19 Creatinine (0.6 - 1.3 mg/dL) 1.1 Glomerular Filtr Rate (80 - 90) 73.1 L Glucose (77 - 141 mg/dL) 195 H POC Glucose (70 - 110 MG/DL) 180 H 218 H 223 H Calcium (8.0 - 10.5 mg/dL) 8.7 Magnesium (1.6 - 2.6 mg/dL) 1.84 Total Bilirubin (0.0 - 1.0 mg/dL) 0.70 AST (8 - 34 IUnit/L) 34 ALT (10 - 49 IUnit/L) 31 Total Alk Phosphatase (20 - 125 IUnit/L) 121 B-Natriuretic Peptide (0 - 100 PG/ML) 224.0 H Total Protein (6.4 - 8.2 g/dL) 6.7 Albumin (3.4 - 5.0 g/dL) 3.40 06/09 1659 Chemistry POC Glucose (70 - 110 MG/DL) 259 H 138 H Laboratory Tests 06/10 06/10 0851 0309 Coagulation INR (0.8 - 1.2) 1.1 PTT (Rashida) (25.0 - 39.5 Seconds) 73.2 H 52.9 H PT Patient/Control Mix (9.3 - 12.9 SECONDS) 12.2 Laboratory Tests 06/10 0309 Hematology WBC (4.5 - 11.0 x10 3/uL) 7.2 RBC (4.00 - 5.60 x10 6/uL) 3.87 L Hgb (12.5 - 16.9 g/dL) 11.6 L Hct (37.5 - 50.7 %) 35.2 L MCV (81.0 - 99.0 fL) 91.0 MCH (27.0 - 33.0 pg) 30.0 MCHC (33.0 - 37.0 g/dL) 33.0 RDW (11.5 - 14.5 %) 13.3 Plt Count (150 - 400 x10 3/uL) 155 MPV (7.0 - 9.0 fL) 12.2 H Neut % (Auto) (56.0 - 77.0 %) 73.5 Lymph % (Auto) (14.0 - 32.0 %) 8.5 L [place] % (Auto) (4.8 - 9.0 %) 12.6 H Eos % (Auto) (0.3 - 3.7 %) 3.6 Baso % (Auto) (0.0 - 2.0 %) 0.7 Neut # (Auto) (2.0 - 7.6 x10 3/uL) 5.26 Lymph # (Auto) (1.0 - 3.8 x10 3/uL) 0.61 L [place] # (Auto) (0.1 - 0.8 x10 3/uL) 0.90 H Eos # (Auto) (0.0 - 0.2 x10 3/uL) 0.26 H Baso # (Auto) (0.0 - 0.2 x10 3/uL) 0.05 Abs Immat Gran (auto) (0.00 - 0.03 x10 3/uL) 0.08 H Immature Gran % (0.0 - 2.0 %) 1.1 Nucleated RBC % (0 - 0 %) 0.0 Nucleated RBCs # (Man) (0.0 - 0.1 x10 3/uL) 0.00 Radiology Data: Recent Impressions: RADIOLOGY - XR CHEST 1 V 06/10 0828 Report Impression - Status: SIGNED Entered: 06/11/2023 0943 IMPRESSION: Cardiomegaly with diffuse congestive changes bilaterally. Impression By: Rosendo - Gabrielle Jean M.D. Results: labs reviewed, vital signs reviewed, x-ray personally reviewed Diagnosis, Assessment Plan Problem List/A P: 1. Cirrhosis 2. Hepatitis C 3. Elevated LFTs 4. Alcohol dependence 5. CHF exacerbation Free Text A P: (06/03/2023) MELD score of 7 given estimated 3-month mortality of 1.9% Awaiting CABG. Family at bedside. Recommendations: 1. Periodically monitor LFTs 2. INR 1.1 3. Abdominal ultrasound revealed cirrhosis with splenomegaly, cholelithiasis, and nonspecific gallbladder wall thickening likely secondary to chronic liver disease as patient does not express abdominal pain at this time 4. History of hepatitis C, PCR - not detected 5. Daily alcohol use, monitor for withdrawal symptoms; MVI and thiamine; encouraged cessation 6. Further recommendations may follow Consultants: cardiology, cardiovascular surgery Attestations Attestation needed: supervising physician Rigoberto Jarrell 06/11/23 3822: Attestations Physician Attestation Agree w/findings plan: Agree with the findings and plan as documented by RAHUL Tobias. at 1556 at 2257 RPT #:[id number] END OF REPORT [facility] 2023-06-11 12:59:00 [facility] REPORT#:[id number] REPORT STATUS: Signed REPORT INITIALIZATION DATE:06/11/23 TIME: 125 PATIENT: MINDY CARTER UNIT #: [id number] ROOM/BED: [place] [address] : 54 AGE: 67 SEX: M ATTEND: Denise Montejo MD ADM AUTHOR: Denise Montejo MD REPT SERVICE DT/TIME: 06/11/23 1259 * ALL edits or amendments must be made on the electronic/computer document * Subjective Chief complaint: no acute change, on 2 L's NC, cabg planned today HPI: This is a 67-year-old male with history of high blood pressure, hyperlipidemia, diabetes mellitus, syncope, neuropathy, alcohol use, liver cirrhosis, stage II CKD presents with shortness of breath that has been increasing since 2 days ago. Patient took extra dose of Aldactone and hydrochlorothiazide which did not help. Patient also reports chest tightness and is currently on 5 L of oxygen per nasal cannula. Patient says that he cannot lie down he gets short of breath when he lies down. He drinks whiskey about 3 shots a day. He has been having increasing edema in bilateral lower extremities. No headaches or dizziness. No other complaints elicited. Review of Systems All systems rev neg: except as noted Objective General VS/I O: Vital Signs: Date Time Temp Pulse Resp B/P B/P Pulse O2 O2 Flow FiO2 Mean Ox Delivery Rate 06/10 1150 96 Nasal 2 cannula 06/10 1123 98.1 93 18 119/74 89.2 99 06/10 0735 98.1 87 18 112/68 0.0 99 06/10 0600 87 31 97 06/10 0500 92 31 94 06/10 0400 87 30 96 06/10 0309 98.4 86 20 121/72 0.0 97 Nasal cannula 06/10 0307 84 25 121/72 91 97 06/10 0300 83 23 93 06/10 0200 84 25 94 06/10 0100 82 23 95 06/10 0000 83 27 97 06/09 2329 85 27 116/55 76 94 06/09 2329 98.2 85 17 116/55 0.0 96 Nasal cannula 06/09 2325 Nasal 2 cannula 06/09 2300 83 24 93 06/09 2100 93 35 90 06/09 2000 92 32 92 06/09 1900 96 35 89 06/09 1827 98.1 87 19 119/69 0.0 93 Room air 06/09 1702 97.7 90 14 120/77 90.9 94 Room air 24 hour I O ending at 0700: 06/10 0700 06/09 1900 Intake Total 300 1307.00 Output Total 450 2280 Balance -150 -973.00 Intake, IV 557.00 Intake, Oral 300 750 Number 2 Bowel Movements Number Voids 1 Output, Urine 450 2280 Patient 108.5 kg Weight Weight Standing scale Measurement Method PATIENT WEIGHT: Weight (lb): 239 Weight (oz): 3.22 Weight (kg): 108.500 Medications: Active Meds + DC'd Last 24 Hrs Cefazolin Sodium (KEFZOL OR ANCEF) 0 .STK-MED ONE .ROUTE (DC) Sodium Chloride (SODIUM CHLORIDE 0.9%) 250 ML .STK-MED ONE IV (DC) Vancomycin HCl (Vancomycin 1,500 mg Inj (B2)) 0 .STK-MED ONE IV (DC) Insulin Glargine (Semglee) 15 UNIT DAILY SUBQ Metoprolol Tartrate (LOPRESSOR) 6.25 MG ONCE ONE PO (DC) Vancomycin HCl (Vancomycin 1,500 mg Inj (B2)) 1,500 MG PREOP ONCALL IV ( DC) Sodium Chloride (NS 0.9%) 500 ML Verapamil HCl (ISOPTIN) 16.6 MG .Q24H IV (CKD) Heparin Sodium (Porcine) (HEPARIN SODIUM) 1,660 UNIT Sodium Bicarbonate (SODIUM BICARBONATE) 0.7 ML Nitroglycerin/Dextrose (NITROGLYCERIN 50MG/D5W 250ML) 8.3 MG Lactated Ringer's (LACTATED RINGERS) 949.5 ML Insulin Human Lispro (HUMALOG) 5 UNIT AC SUBQ Acetaminophen (TYLENOL EXTRA STRENGTH) 1,000 MG PREOP ONCALL PO (CKD) Gabapentin (NEURONTIN) 200 MG PREOP ONCALL PO (CKD) Insulin Glargine (Semglee) 10 UNIT DAILY SUBQ (DC) Insulin Human Lispro (HUMALOG) 4 UNIT AC SUBQ (DC) Furosemide (LASIX 40 mg/4 mL INJECTION) 40 MG BID IV Gabapentin (NEURONTIN) 100 MG BEDTIME PO Docusate Sodium (COLACE) 100 MG DAILY PRN PRN PO Polyethylene Glycol (MIRALAX) 17 GM DAILY PRN PRN PO Lactulose (LACTULOSE) 10 GM DAILY PRN PRN PO Multivitamins (TAB-A-KANDI) 1 TAB DAILY PO Thiamine HCl (THIAMINE HCL) 100 MG DAILY PO Aspirin (ASPIRIN) 81 MG DAILY PO Carvedilol (COREG) 12.5 MG Q12HR PO Amlodipine Besylate (NORVASC) 10 MG BEDTIME PO Atorvastatin Calcium (LIPITOR) 40 MG 2100 PO Doxazosin Mesylate (CARDURA) 2 MG BEDTIME PO Insulin Human Lispro (HUMALOG) 0 AC HS SUBQ Acetaminophen (TYLENOL) 650 MG Q4H PRN PRN PO Dextrose/Water (DEXTROSE 10% IN WATER) 125 ML ASDIR PRN IV (CKD) Dextrose/Water (DEXTROSE 10% IN WATER) 250 ML ASDIR PRN IV (CKD) Glucagon (GLUCAGON) 1 MG ASDIR PRN IM Hydralazine HCl (APRESOLINE) 10 MG Q6H PRN PRN IV Ondansetron HCl (ZOFRAN) 4 MG Q4H PRN PRN IV Nitroglycerin (NITROSTAT) 0.4 MG Q5M PRN PRN SL Heparin Sodium (HEPARIN 5000 UNITS/ML) 9,000 UNIT ASDIR PRN PRN IV Heparin Sodium (HEPARIN 5000 UNITS/ML) 4,500 UNIT ASDIR PRN PRN IV Heparin Sodium (Porcine) (HEPARIN 25,000 UNITS/ 1/2NS 500ML) 500 ML ASDIR IV (CKD) Dietitian nutrition assessment The data set between the solid lines has been imported from the dietitian's assessment. BMI Calculated: 35.7 Nutrition related diagnosis: Nutrition diagnosis details: Nutrition problem: Nutrition etiology: Nutrition signs and symptoms: Nutrition prescription: Dietitian name: Assessment completed: Physical Exam General appearance: alert, awake, oriented Head/Eyes: atraumatic, clear cornea, EOMI, PERRLA Neck: normal thyroid, supple/no meningismus Cardiovascular: normal heart sounds, regular rate rhythm, no gallop, no murmur , no rub Respiratory: aerating well, clear to auscultation Abdomen: non-tender, normal bowel sounds, soft, no distention Extremities: edema, no clubbing, no cyanosis Neuro/BUSINESS AREA MANAGER: alert, oriented X 3, CNII-XII intact Skin: dry, intact, no rash Results Findings/Data: Laboratory Tests 06/10 06/10 06/10 06/10 1123 0738 0309 0309 Chemistry Sodium (134 - 147 mEq/L) 135 Potassium (3.4 - 5.0 mEq/L) 3.7 Chloride (100 - 108 mEq/L) 101 Carbon Dioxide (21 - 33 mEq/l) 26 Anion Gap (0 - 20) 12 BUN (7 - 25 mg/dL) 19 Creatinine (0.6 - 1.3 mg/dL) 1.1 Glomerular Filtr Rate (80 - 90) 73.1 L Glucose (77 - 141 mg/dL) 195 H POC Glucose (70 - 110 MG/DL) 218 H 223 H Calcium (8.0 - 10.5 mg/dL) 8.7 Magnesium (1.6 - 2.6 mg/dL) 1.84 Total Bilirubin (0.0 - 1.0 mg/dL) 0.70 AST (8 - 34 IUnit/L) 34 ALT (10 - 49 IUnit/L) 31 Total Alk Phosphatase (20 - 125 IUnit/L) 121 B-Natriuretic Peptide (0 - 100 PG/ML) 224.0 H Total Protein (6.4 - 8.2 g/dL) 6.7 Albumin (3.4 - 5.0 g/dL) 3.40 06/09 1659 Chemistry POC Glucose (70 - 110 MG/DL) 259 H 138 H Laboratory Tests 06/10 06/10 0851 0309 Coagulation INR (0.8 - 1.2) 1.1 PTT ([place]) (25.0 - 39.5 Seconds) 73.2 H 52.9 H PT Patient/Control Mix (9.3 - 12.9 SECONDS) 12.2 Laboratory Tests 06/10 0309 Hematology WBC (4.5 - 11.0 x10 3/uL) 7.2 RBC (4.00 - 5.60 x10 6/uL) 3.87 L Hgb (12.5 - 16.9 g/dL) 11.6 L Hct (37.5 - 50.7 %) 35.2 L MCV (81.0 - 99.0 fL) 91.0 MCH (27.0 - 33.0 pg) 30.0 MCHC (33.0 - 37.0 g/dL) 33.0 RDW (11.5 - 14.5 %) 13.3 Plt Count (150 - 400 x10 3/uL) 155 MPV (7.0 - 9.0 fL) 12.2 H Neut % (Auto) (56.0 - 77.0 %) 73.5 Lymph % (Auto) (14.0 - 32.0 %) 8.5 L [place] % (Auto) (4.8 - 9.0 %) 12.6 H Eos % (Auto) (0.3 - 3.7 %) 3.6 Baso % (Auto) (0.0 - 2.0 %) 0.7 Neut # (Auto) (2.0 - 7.6 x10 3/uL) 5.26 Lymph # (Auto) (1.0 - 3.8 x10 3/uL) 0.61 L [place] # (Auto) (0.1 - 0.8 x10 3/uL) 0.90 H Eos # (Auto) (0.0 - 0.2 x10 3/uL) 0.26 H Baso # (Auto) (0.0 - 0.2 x10 3/uL) 0.05 Abs Immat Gran (auto) (0.00 - 0.03 x10 3/uL) 0.08 H Immature Gran % (0.0 - 2.0 %) 1.1 Nucleated RBC % (0 - 0 %) 0.0 Nucleated RBCs # (Man) (0.0 - 0.1 x10 3/uL) 0.00 Laboratory Tests 06/09 153 Serology SARS-CoV-2 Ag (Rapid) (Negative) Negative Microbiology Date/Time Procedure - Status Source Growth 06/09 153 MSSA Surveillance Screen - COMP NASAL 06/09 1538 MRSA DNA Surveillance Screen - COMP NASAL Radiology data: Recent Impressions: RADIOLOGY - XR CHEST 1 V 06/10 0828 Report Impression - Status: SIGNED Entered: 06/11/2023 0943 IMPRESSION: Cardiomegaly with diffuse congestive changes bilaterally. Impression By: Rosendo - Gabrielle Jean M.D. Diagnosis, Assessment Plan Problem List/A P: 1. CHF exacerbation Consultants: cardiology, cardiovascular surgery Code status: full code Free Text DxA P Notes Free text DxA P notes: Shortness of breath Differential diagnosis includes CHF Placed on Lasix 40 mg IV every 8 hours Cardiology consulted Echo ordered Chest tightness Possibly secondary to fluid overload Cardiology consulted Echo pending Elevated troponin Consulted cardiology On Lovenox Diabetes mellitus A1c 8.4% Sliding scale insulin as needed Hypertension Renew medications once they have been updated in the computer Check labs in the a.m. Patient does not have a living will or medical power of defense attorney Patient is a full code 06/01 multivessel disease on cath, CTS consulted, patient undergoing preop evaluation for possible CABG. 06/02- pt continues cabg eval, conf Fri, nephro/GI consulted per cts, renal indices wnls today, Abd us confirmed cirrhosis with splenomegaly. 06/03 patient continues preop evaluation for CABG, IV Lasix transition to oral 06/04 CABG preop planning 06/05- CABG planning 06/06 ongoing CABG planning per CTS, blood sugars noted to be elevated in 240s to 300s. Will start on basal insulin 7 units for now daily, continue meal correctional insulin. Patient on glipizide and metformin at home holding for now given CABG eval and and pending surgical date. 06/07- pending CABG eval, d/w Cardiology and started patient on IV lasix 40 mg BID due to increasing wt, symptoms of dyspnea. Monitor I'O's. 06/08- poorly controlled blood sugars noted, increased basal insulin to 10 units daily, add meal time insulin AC, wt based compared to SSI admin, started on 4 Units reg insulin AC. Monitor I/O, contiued on IV lasix 40 mg BID, wt 110 kg today (dry wt reported to be 105 kg). 06/09- optimize insulin for improved glucose control, pending cabg tomorrow 06/10- pending cabg Quality: Gen [facility] Crit Care VTE Prophylaxis VTE prophylaxis initiated: yes Current Medications Current medication review: I attest that the foregoing medication list in the medical record is true, accurate, and complete to the best of my knowledge. Advanced Care Plan 65 or Older Discussed with: patient Discussion included: living will, power of defense attorney, code status at 1301 RPT #:[id number] END OF REPORT [facility] 2023-06-11 12:10:00 [facility] Nephrology Progress Note REPORT#:[id number] REPORT STATUS: Signed REPORT INITIALIZATION DATE:06/11/23 TIME: 1210 PATIENT: MINDY CARTER UNIT #: [id number] ROOM/BED: [place] [address] : 54 AGE: 67 SEX: M ATTEND: Denise Montejo MD ADM AUTHOR: Nkechi Bacon MD REPT SERVICE DT/TIME: 06/10/23 1210 * ALL edits or amendments must be made on the electronic/computer document * Subjective Chief complaint: SOB, CP HPI: 67-year-old male known to have hypertension, diabetes mellitus, hyperlipidemia, liver cirrhosis, chronic kidney disease who presented with shortness of breath and chest tightness and on further workup was found to have multivessel disease therefore he was being worked up for possible CABG. He said he had been diagnosed recently with chronic kidney disease but did not have any nausea, orthopnea, cramping, change of taste, involuntary movements, urinary complaints. He denied any chronic use of NSAIDs. He said for most part his blood pressures were controlled at home. 06/09 Patient denying all systemic review. Feeling well. Objective Physical Exam General appearance: alert, awake, oriented Head/eyes: atraumatic, EOMI ENT: moist mucous membranes, normal nose Neck: no JVD, no lymphadenopathy Cardiovascular: normal heart sounds, regular rate and rhythm Respiratory: aerating well, clear to auscultation Abdomen: non-tender, soft Genitourinary: no bladder distention, no flank pain Extremities: no edema, no gangrene, no swelling Diagnosis, Assessment Plan Free Text A P: 67-year-old male known to have hypertension, diabetes mellitus, hyperlipidemia, liver cirrhosis, chronic kidney disease who presented with shortness of breath and chest tightness and on further workup was found to have multivessel disease therefore he was being worked up for possible CABG. He said he had been diagnosed recently with chronic kidney disease but did not have any nausea, orthopnea, cramping, change of taste, involuntary movements, urinary complaints. He denied any chronic use of NSAIDs. He said for most part his blood pressures were controlled at home. Nephrology following for: 1. CKD:: Most recent creatinine was staying in normal range therefore plan is to keep mean arterial pressure above 65 and avoid nephrotoxic agents. 2. Hypertension: Mostly controlled therefore plan is to continue same. 3. Hypervolemia: Plan is to monitor input and output closely and treat with Lasix if needed. His echocardiogram showed an EF of 55 to 60%. 4. Chest pain/shortness of breath: He had been worked up with left heart cath and received contrast recently. Plan was to monitor closely for contrast- induced nephropathy and keep hydrated. 06/09 1. CKD:: Renal function stable therefore plan is to keep mean arterial pressure above 65 and avoid nephrotoxic agents. 2. Hypertension: Mostly controlled therefore plan is to continue same. 3. Hypervolemia: Currently on lasix, diuresing well. His echocardiogram showed an EF of 55 to 60%. 4. Chest pain/shortness of breath: He had been worked up with left heart cath and received contrast recently. Plan was to monitor closely for contrast- induced nephropathy and keep hydrated.Plan for open heart surgery on Wednesday. Consultants: cardiology, cardiovascular surgery at 1212 RPT #:[id number] END OF REPORT [facility] 2023-06-11 08:37:00 [facility] ([facility]) Cardiology Progress Note REPORT#:[id number] REPORT STATUS: Signed REPORT INITIALIZATION DATE:06/11/23 TIME: 836 PATIENT: MINDY CARTER UNIT #: [id number] ROOM/BED: [place] [address] : [birth year] AGE: 67 SEX: M ATTEND: Denise Montejo MD ADM AUTHOR: Clayton Nathan MD REPT SERVICE DT/TIME: 06/11/23 0837 * ALL edits or amendments must be made on the electronic/computer document * Subjective Free Text Subj Notes Free Text Subj Notes: Cardiology progress note Date of service: 06/11/2023 Chief complaint/reason for consult: NSTEMI Patient seen and examined, chart reviewed, questions/concerns addressed with RN. Current medication and vitals reviewed. HPI and interval Hx: Plan for CABG tomorrow. Subjective: No chest pain today Objective: Vital Signs Date Temp Pulse Resp B/P B/P Mean Pulse Ox FiO2 06/09-06/10 97.7-98.4 82-96 14-35 112-136/55-79 0.0-100 89-99 GEN: Alert and cooperative, no acute distress. HEENT: NC/AT, EOMI CARD: RRR, normal S1/S2 LUNGS: CTA w/o added sounds, GBAE. Assessment, Impression and medical decision making: -NSTEMI -Acute on chronic diastolic congestive heart -Morbid obesity -Hypertension, hyperlipidemia, type 2 diabetes mellitus Plan/recommendation: -Coronary angiogram showed left main/LAD stenosis -Plan for CABG today 3 PM -Resume heparin drip, continue with aspirin statin and beta-blockers at 0837 RPT #:[id number] END OF REPORT [facility] 2023-06-10 15:20:00 [facility] ([facility]) Hospitalist Progress Note REPORT#:[id number] REPORT STATUS: Signed REPORT INITIALIZATION DATE:06/10/23 TIME: 1520 PATIENT: MINDY CARTER UNIT #: [id number] ROOM/BED: 3360-1 : 54 AGE: 67 SEX: M ATTEND: Denise Montejo MD ADM AUTHOR: Denise Montejo MD REPT SERVICE DT/TIME: 06/10/23 1520 * ALL edits or amendments must be made on the electronic/computer document * Subjective Chief complaint: doing well HPI: This is a 67-year-old male with history of high blood pressure, hyperlipidemia, diabetes mellitus, syncope, neuropathy, alcohol use, liver cirrhosis, stage II CKD presents with shortness of breath that has been increasing since 2 days ago. Patient took extra dose of Aldactone and hydrochlorothiazide which did not help. Patient also reports chest tightness and is currently on 5 L of oxygen per nasal cannula. Patient says that he cannot lie down he gets short of breath when he lies down. He drinks whiskey about 3 shots a day. He has been having increasing edema in bilateral lower extremities. No headaches or dizziness. No other complaints elicited. Review of Systems All systems rev neg: except as noted Objective General VS/I O: Vital Signs: Date Time Temp Pulse Resp B/P B/P Pulse O2 O2 Flow FiO2 Mean Ox Delivery Rate 06/09 1129 98.1 90 14 127/79 0.0 95 Room air 06/09 0856 97.9 94 14 136/75 0.0 94 Room air 06/09 0351 98.4 87 19 114/72 0.0 93 Room air 06/08 2338 98.2 89 19 121/71 0.0 92 Room air 06/08 1835 97.5 97 19 134/75 0.0 94 Room air 06/08 1601 98.1 92 19 147/67 0.0 91 24 hour I O ending at 0700: 06/09 0700 06/08 1900 Intake Total 1411.00 Output Total 1275 2860 Balance -1275 -1449.00 Intake, IV 286.00 Intake, Oral 1125 Number 1 Bowel Movements Number Voids 4 3 Output, Urine 1275 2860 Patient 109.6 kg Weight Weight Standing scale Measurement Method PATIENT WEIGHT: Weight (lb): 241 Weight (oz): 10.03 Weight (kg): 109.600 Medications: Active Meds + DC'd Last 24 Hrs Metoprolol Tartrate (LOPRESSOR) 6.25 MG ONCE ONE PO Vancomycin HCl (Vancomycin 1,500 mg Inj (B2)) 1,500 MG PREOP ONCALL IV ( CKD) Sodium Chloride (NS 0.9%) 500 ML Verapamil HCl (ISOPTIN) 16.6 MG .Q24H IV (CKD) Heparin Sodium (Porcine) (HEPARIN SODIUM) 1,660 UNIT Sodium Bicarbonate (SODIUM BICARBONATE) 0.7 ML Nitroglycerin/Dextrose (NITROGLYCERIN 50MG/D5W 250ML) 8.3 MG Lactated Ringer's (LACTATED RINGERS) 949.5 ML Acetaminophen (TYLENOL EXTRA STRENGTH) 1,000 MG PREOP ONCALL PO (CKD) Gabapentin (NEURONTIN) 200 MG PREOP ONCALL PO (CKD) Insulin Glargine (Semglee) 10 UNIT DAILY SUBQ Insulin Human Lispro (HUMALOG) 4 UNIT AC SUBQ Furosemide (LASIX 40 mg/4 mL INJECTION) 40 MG BID IV Gabapentin (NEURONTIN) 100 MG BEDTIME PO Docusate Sodium (COLACE) 100 MG DAILY PRN PRN PO Polyethylene Glycol (MIRALAX) 17 GM DAILY PRN PRN PO Lactulose (LACTULOSE) 10 GM DAILY PRN PRN PO Multivitamins (TAB-A-KANDI) 1 TAB DAILY PO Thiamine HCl (THIAMINE HCL) 100 MG DAILY PO Aspirin (ASPIRIN) 81 MG DAILY PO Carvedilol (COREG) 12.5 MG Q12HR PO Amlodipine Besylate (NORVASC) 10 MG BEDTIME PO Atorvastatin Calcium (LIPITOR) 40 MG 2100 PO Doxazosin Mesylate (CARDURA) 2 MG BEDTIME PO Insulin Human Lispro (HUMALOG) 0 AC HS SUBQ Acetaminophen (TYLENOL) 650 MG Q4H PRN PRN PO Dextrose/Water (DEXTROSE 10% IN WATER) 125 ML ASDIR PRN IV (CKD) Dextrose/Water (DEXTROSE 10% IN WATER) 250 ML ASDIR PRN IV (CKD) Glucagon (GLUCAGON) 1 MG ASDIR PRN IM Hydralazine HCl (APRESOLINE) 10 MG Q6H PRN PRN IV Ondansetron HCl (ZOFRAN) 4 MG Q4H PRN PRN IV Nitroglycerin (NITROSTAT) 0.4 MG Q5M PRN PRN SL Heparin Sodium (HEPARIN 5000 UNITS/ML) 9,000 UNIT ASDIR PRN PRN IV Heparin Sodium (HEPARIN 5000 UNITS/ML) 4,500 UNIT ASDIR PRN PRN IV Heparin Sodium (Porcine) (HEPARIN 25,000 UNITS/ 1/2NS 500ML) 500 ML ASDIR IV (CKD) Dietitian nutrition assessment The data set between the solid lines has been imported from the dietitian's assessment. BMI Calculated: 35.7 Nutrition related diagnosis: Nutrition diagnosis details: Nutrition problem: Nutrition etiology: Nutrition signs and symptoms: Nutrition prescription: Dietitian name: Assessment completed: Physical Exam General appearance: alert, awake, oriented Head/Eyes: atraumatic, clear cornea, EOMI, PERRLA Neck: normal thyroid, supple/no meningismus Cardiovascular: normal heart sounds, regular rate rhythm, no gallop, no murmur , no rub Respiratory: aerating well, clear to auscultation Abdomen: non-tender, normal bowel sounds, soft, no distention Extremities: edema, no clubbing, no cyanosis Neuro/BUSINESS AREA MANAGER: alert, oriented X 3, CNII-XII intact Skin: dry, intact, no rash Results Findings/Data: Laboratory Tests 06/09 06/09 06/09 06/09 06/08 1126 0853 0833 0424 2010 Chemistry Sodium (134 - 147 mEq/L) 134 Potassium (3.4 - 5.0 mEq/L) 3.8 Chloride (100 - 108 mEq/L) 100 Carbon Dioxide (21 - 33 mEq/l) 26 Anion Gap (0 - 20) 12 BUN (7 - 25 mg/dL) 17 Creatinine (0.6 - 1.3 mg/dL) 1.0 Glomerular Filtr Rate (80 - 90) 82.0 Glucose (77 - 141 mg/dL) 197 H POC Glucose (70 - 110 MG/DL) 310 H 266 H 231 H 239 H Calcium (8.0 - 10.5 mg/dL) 8.8 Magnesium (1.6 - 2.6 mg/dL) 1.72 Total Bilirubin (0.0 - 1.0 mg/dL) 0.70 Direct Bilirubin (0.1 - 0.3 MG/DL) 0.30 Indirect Bilirubin (MG/DL) 0.40 AST (8 - 34 IUnit/L) 30 ALT (10 - 49 IUnit/L) 30 Total Alk Phosphatase (20 - 125 127 H IUnit/L) Total Protein (6.4 - 8.2 g/dL) 6.7 Albumin (3.4 - 5.0 g/dL) 3.30 L 06/08 1552 Chemistry POC Glucose (70 - 110 MG/DL) 384 H Laboratory Tests 06/09 0424 Coagulation PTT ([place]) (25.0 - 39.5 Seconds) 59.1 H Laboratory Tests 06/09 0424 Hematology WBC (4.5 - 11.0 x10 3/uL) 8.2 RBC (4.00 - 5.60 x10 6/uL) 3.94 L Hgb (12.5 - 16.9 g/dL) 11.9 L Hct (37.5 - 50.7 %) 36.0 L MCV (81.0 - 99.0 fL) 91.4 MCH (27.0 - 33.0 pg) 30.2 MCHC (33.0 - 37.0 g/dL) 33.1 RDW (11.5 - 14.5 %) 13.2 Plt Count (150 - 400 x10 3/uL) 153 MPV (7.0 - 9.0 fL) 11.9 H Neut % (Auto) (56.0 - 77.0 %) 73.4 Lymph % (Auto) (14.0 - 32.0 %) 8.5 L [place] % (Auto) (4.8 - 9.0 %) 12.0 H Eos % (Auto) (0.3 - 3.7 %) 3.9 H Baso % (Auto) (0.0 - 2.0 %) 0.7 Neut # (Auto) (2.0 - 7.6 x10 3/uL) 6.05 Lymph # (Auto) (1.0 - 3.8 x10 3/uL) 0.70 L [place] # (Auto) (0.1 - 0.8 x10 3/uL) 0.99 H Eos # (Auto) (0.0 - 0.2 x10 3/uL) 0.32 H Baso # (Auto) (0.0 - 0.2 x10 3/uL) 0.06 Abs Immat Gran (auto) (0.00 - 0.03 x10 3/uL) 0.12 H Immature Gran % (0.0 - 2.0 %) 1.5 Nucleated RBC % (0 - 0 %) 0.0 Nucleated RBCs # (Man) (0.0 - 0.1 x10 3/uL) 0.00 Diagnosis, Assessment Plan Problem List/A P: 1. CHF exacerbation Consultants: cardiology, cardiovascular surgery Free Text DxA P Notes Free text DxA P notes: Shortness of breath Differential diagnosis includes CHF Placed on Lasix 40 mg IV every 8 hours Cardiology consulted Echo ordered Chest tightness Possibly secondary to fluid overload Cardiology consulted Echo pending Elevated troponin Consulted cardiology On Lovenox Diabetes mellitus A1c 8.4% Sliding scale insulin as needed Hypertension Renew medications once they have been updated in the computer Check labs in the a.m. Patient does not have a living will or medical power of defense attorney Patient is a full code 06/01 multivessel disease on cath, CTS consulted, patient undergoing preop evaluation for possible CABG. 06/02- pt continues cabg eval, conf Fri, nephro/GI consulted per cts, renal indices wnls today, Abd us confirmed cirrhosis with splenomegaly. 06/03 patient continues preop evaluation for CABG, IV Lasix transition to oral 06/04 CABG preop planning 06/05- CABG planning 06/06 ongoing CABG planning per CTS, blood sugars noted to be elevated in 240s to 300s. Will start on basal insulin 7 units for now daily, continue meal correctional insulin. Patient on glipizide and metformin at home holding for now given CABG eval and and pending surgical date. 06/07- pending CABG eval, d/w Cardiology and started patient on IV lasix 40 mg BID due to increasing wt, symptoms of dyspnea. Monitor I'O's. 06/08- poorly controlled blood sugars noted, increased basal insulin to 10 units daily, add meal time insulin AC, wt based compared to SSI admin, started on 4 Units reg insulin AC. Monitor I/O, contiued on IV lasix 40 mg BID, wt 110 kg today (dry wt reported to be 105 kg). 06/09- optimize insulin for improved glucose control, pending cabg tomorrow Quality: Gen Med Crit Care VTE Prophylaxis VTE prophylaxis initiated: yes Current Medications Current medication review: I attest that the foregoing medication list in the medical record is true, accurate, and complete to the best of my knowledge. Advanced Care Plan 65 or Older Discussed with: patient Discussion included: living will, power of defense attorney, code status at 1523 RPT #:[id number] END OF REPORT [facility] 2023-06-10 11:09:00 [facility] Cardiothoracic Surgery Prog REPORT#:[id number] REPORT STATUS: Signed REPORT INITIALIZATION DATE:06/10/23 TIME: 110 PATIENT: MINDY CARTER UNIT #: [id number] ROOM/BED: [place] [address] : 54 AGE: 67 SEX: M ATTEND: Kimmie Bacon MD ADM AUTHOR: Nathaniel Martel MD REPT SERVICE DT/TIME: 06/10/23 1109 * ALL edits or amendments must be made on the electronic/computer document * Subjective Chief complaint: preop cabg Review of Systems Constitutional: Denies: chills, fatigue, fever. Skin: Denies: abrasion, bruising, contusion. Allergy/Immun: Denies: allergic reaction, anaphylaxis, hives. Respiratory: Denies: HERRING (dyspnea on exertion), SOB. Cardiovascular: Denies: chest pain, palpitations. Heme: Denies: adenopathy, bleeding, bruising. Endocrine: Denies: cold intolerance, heat intolerance, polydipsia. Neuro: Denies: confusion, dizziness, seizure, syncope. All systems rev neg: except as marked Objective General VS/I O Last Documented: Result Date Time Pulse Ox 95 06/09 112 B/P 127/79 06/09 112 B/P Mean 0.0 06/09 112 O2 Delivery Room air 06/09 112 Temp 36.7 06/09 112 Pulse 90 06/09 1129 Resp 14 06/09 112 O2 Flow Rate 2 06/07 0900 FiO2 40 06/04 0925 24 hour I O ending at 0700: 06/09 0700 06/08 1900 Intake Total 1411.00 Output Total 1275 2860 Balance -1275 -1449.00 Intake, IV 286.00 Intake, Oral 1125 Number 1 Bowel Movements Number Voids 4 3 Output, Urine 1275 2860 Patient 109.6 kg Weight Weight Standing scale Measurement Method PATIENT WEIGHT: Weight (lb): 241 Weight (oz): 10.03 Weight (kg): 109.600 Dietitian Nutrition assessment The data set between the solid lines has been imported from the dietitian's assessment. BMI Calculated: 35.7 Nutrition related diagnosis: Nutrition diagnosis details: Nutrition problem: Nutrition etiology: Nutrition signs and symptoms: Nutrition prescription: Dietitian name: Assessment completed: Physical Exam General appearance: alert, awake, oriented, no acute distress HEENT: anicteric, mucosal membranes moist, pupils reactive to light Neck: full range of motion, non-tender Cardiovascular: normal heart sounds, regular rate rhythm Respiratory: aerating well, symmetric expansion Abdomen: soft, non-tender Genitourinary: no bladder distention, no flank pain Extremities: dry, moves all Musculoskeletal: full range of motion, painless range of motion Skin: dry, intact Psychiatry: normal affect, normal mood Current Medications Medications: Active Meds + DC'd Last 24 Hrs Insulin Glargine (Semglee) 10 UNIT DAILY SUBQ Insulin Human Lispro (HUMALOG) 4 UNIT AC SUBQ Furosemide (LASIX 40 mg/4 mL INJECTION) 40 MG BID IV Gabapentin (NEURONTIN) 100 MG BEDTIME PO Insulin Glargine (Semglee) 7 UNIT DAILY SUBQ (DC) Docusate Sodium (COLACE) 100 MG DAILY PRN PRN PO Polyethylene Glycol (MIRALAX) 17 GM DAILY PRN PRN PO Lactulose (LACTULOSE) 10 GM DAILY PRN PRN PO Multivitamins (TAB-A-KANDI) 1 TAB DAILY PO Thiamine HCl (THIAMINE HCL) 100 MG DAILY PO Aspirin (ASPIRIN) 81 MG DAILY PO Carvedilol (COREG) 12.5 MG Q12HR PO Amlodipine Besylate (NORVASC) 10 MG BEDTIME PO Atorvastatin Calcium (LIPITOR) 40 MG 2100 PO Doxazosin Mesylate (CARDURA) 2 MG BEDTIME PO Insulin Human Lispro (HUMALOG) 0 AC HS SUBQ Acetaminophen (TYLENOL) 650 MG Q4H PRN PRN PO Dextrose/Water (DEXTROSE 10% IN WATER) 125 ML ASDIR PRN IV (CKD) Dextrose/Water (DEXTROSE 10% IN WATER) 250 ML ASDIR PRN IV (CKD) Glucagon (GLUCAGON) 1 MG ASDIR PRN IM Hydralazine HCl (APRESOLINE) 10 MG Q6H PRN PRN IV Ondansetron HCl (ZOFRAN) 4 MG Q4H PRN PRN IV Nitroglycerin (NITROSTAT) 0.4 MG Q5M PRN PRN SL Heparin Sodium (HEPARIN 5000 UNITS/ML) 9,000 UNIT ASDIR PRN PRN IV Heparin Sodium (HEPARIN 5000 UNITS/ML) 4,500 UNIT ASDIR PRN PRN IV Heparin Sodium (Porcine) (HEPARIN 25,000 UNITS/ 1/2NS 500ML) 500 ML ASDIR IV (CKD) Results Findings/Data: Laboratory Tests 06/09 06/09 06/09 06/09 06/08 1126 0853 0833 0424 2010 Chemistry Sodium (134 - 147 mEq/L) 134 Potassium (3.4 - 5.0 mEq/L) 3.8 Chloride (100 - 108 mEq/L) 100 Carbon Dioxide (21 - 33 mEq/l) 26 Anion Gap (0 - 20) 12 BUN (7 - 25 mg/dL) 17 Creatinine (0.6 - 1.3 mg/dL) 1.0 Glomerular Filtr Rate (80 - 90) 82.0 Glucose (77 - 141 mg/dL) 197 H POC Glucose (70 - 110 MG/DL) 310 H 266 H 231 H 239 H Calcium (8.0 - 10.5 mg/dL) 8.8 Magnesium (1.6 - 2.6 mg/dL) 1.72 Total Bilirubin (0.0 - 1.0 mg/dL) 0.70 Direct Bilirubin (0.1 - 0.3 MG/DL) 0.30 Indirect Bilirubin (MG/DL) 0.40 AST (8 - 34 IUnit/L) 30 ALT (10 - 49 IUnit/L) 30 Total Alk Phosphatase (20 - 125 127 H IUnit/L) Total Protein (6.4 - 8.2 g/dL) 6.7 Albumin (3.4 - 5.0 g/dL) 3.30 L 06/08 1552 Chemistry POC Glucose (70 - 110 MG/DL) 384 H Laboratory Tests 06/09 0424 Coagulation PTT ([place]) (25.0 - 39.5 Seconds) 59.1 H Laboratory Tests 06/09 0424 Hematology WBC (4.5 - 11.0 x10 3/uL) 8.2 RBC (4.00 - 5.60 x10 6/uL) 3.94 L Hgb (12.5 - 16.9 g/dL) 11.9 L Hct (37.5 - 50.7 %) 36.0 L MCV (81.0 - 99.0 fL) 91.4 MCH (27.0 - 33.0 pg) 30.2 MCHC (33.0 - 37.0 g/dL) 33.1 RDW (11.5 - 14.5 %) 13.2 Plt Count (150 - 400 x10 3/uL) 153 MPV (7.0 - 9.0 fL) 11.9 H Neut % (Auto) (56.0 - 77.0 %) 73.4 Lymph % (Auto) (14.0 - 32.0 %) 8.5 L [place] % (Auto) (4.8 - 9.0 %) 12.0 H Eos % (Auto) (0.3 - 3.7 %) 3.9 H Baso % (Auto) (0.0 - 2.0 %) 0.7 Neut # (Auto) (2.0 - 7.6 x10 3/uL) 6.05 Lymph # (Auto) (1.0 - 3.8 x10 3/uL) 0.70 L [place] # (Auto) (0.1 - 0.8 x10 3/uL) 0.99 H Eos # (Auto) (0.0 - 0.2 x10 3/uL) 0.32 H Baso # (Auto) (0.0 - 0.2 x10 3/uL) 0.06 Abs Immat Gran (auto) (0.00 - 0.03 x10 3/uL) 0.12 H Immature Gran % (0.0 - 2.0 %) 1.5 Nucleated RBC % (0 - 0 %) 0.0 Nucleated RBCs # (Man) (0.0 - 0.1 x10 3/uL) 0.00 Results: labs reviewed, vital signs stable, franklin personally rev'd, current med profile rev'd Quality: Trauma Gen Surg Advanced Care Plan 65 or Older Discussed with: patient Discussion included: living will, power of defense attorney, code status Current Medications Current medication review: I attest that the foregoing medication list in the medical record is true, accurate, and complete to the best of my knowledge. VTE Prophylaxis - General VTE prophylaxis initiated: yes Diagnosis, Assessment Plan Hospital course to date: This is a 67-year-old gentleman with a past medical history of hypertension, hyperlipidemia, diabetes, neuropathy, alcohol use, liver cirrhosis, kidney disease, syncope who came to the hospital with shortness of breath and chest tightness for 2 days. Patient describes significant orthopnea and increasing edema in bilateral lower extremities that brought the patient to the hospital. Initial workup positive for mildly elevated troponin and elevated BNP and was diagnosed with NSTEMI and CHF exacerbation with acute hypoxic respiratory failure. Patient then underwent cardiac catheterization for elevated troponin. CV surgery was consulted for multivessel coronary artery disease found on angiogram. 1. multivessel disease -Patient underwent cardiac angiogram: Left main-proximal to mid 60 to 70% stenosis LAD-ostial LAD 90% stenosis Left circumflex-patent RCA-mild 30 to 40% mid stenosis EF 55 to 60% Wall motion is normal, grade 1 diastolic dysfunction, normal systolic function. Mitral valve: Moderately calcified with leaflet thickening. Moderate stenosis. Mild regurgitation. Aortic valve: Thickening and sclerosis 2. Liver disease -Patient recently diagnosed. Patient does not live local to [place]. Will consult gastroenterology to see patient. -EtOH cessation 3. Chronic kidney disease -Patient does not live local to [place]. Will consult nephrology to see patient. Patient will be presented at complex cardiology conference on Wednesday. Further recommendations to follow. 06/04/23 Patient in stable condition Labs and imaging reviewed Case presented at complex cardiology conference this morning and the team deemed patient will be best be suited with CABG. Preop workup ongoing Timing of surgery pending Plan of care discussed with patient and family. All questions were answered. 06/05/23 Patient doing well, denies chest pain Labs reviewed Pre op workup ongoing, pending vein mapping and carotid duplex On 4l nasal cannula, wean off oxygen as tolerated Incentive spirometer teaching Cardiac diet OOB to chair, ambulate Plan of care discussed with patient, all questions were answered. 06/06/23 Patient in stable condition Denies chest pain Wean off oxygen Encourage I-S use and deep breathing Tentatively plan for CABG in the upcoming week Plan of care discussed with patient, all questions were answered. 06/07/23 Patient seen and examined, denies chest pain Labs reviewed I-S use encourage, wean off oxygen as tolerated, on 2 L nasal cannula Tolerating diet Out of bed in chair, PT OT Timing of surgery pending Plan of care discussed with the patient, all questions were answered 06/08/23 Patient in stable condition Labs reviewed On room air, encourage I-S use Preop workup completed I will tentatively schedule him for surgery on Wednesday Plan of care discussed with patient, all questions were answered 06/09/23 Patient in stable condition Labs reviewed On room air, encourage I-S use Preop workup completed I will tentatively schedule him for surgery on Wednesday Plan of care discussed with patient, all questions were answered 06/10/23 Patient is stable condition, denies chest pain On room air Preop workup completed Plan for surgery on Wednesday-CABG and possible mitral valve I have discussed with the patient the operation, risk involved, calculated STS risk score, benefits, alternatives, and complicated. Patient acknowledges understanding and is willing to proceed. Consultants: cardiology, cardiovascular surgery at 1026 RPT #:[id number] END OF REPORT [facility] 2023-06-10 10:55:00 [facility] ([facility]) Gastroenterology Progress Note REPORT#:[id number] REPORT STATUS: Signed REPORT INITIALIZATION DATE:06/10/23 TIME: 105 PATIENT: MINDY CARTER UNIT #: [id number] ROOM/BED: [place] [address] : 54 AGE: 67 SEX: M ATTEND: Denise Montejo MD ADM AUTHOR: Farideh Harris REPT SERVICE DT/TIME: 06/10/23 1055 * ALL edits or amendments must be made on the electronic/computer document * Farideh Harris 06/10/23 1055: Subjective Patient reports: Yes: bowel movement, passing gas. No: abdominal pain, black stools, jaundice, nausea, rectal bleeding, vomiting. Review of Systems Constitutional: Denies: chills, fever. Respiratory: Denies: SOB. Cardiovascular: Denies: chest pain. Neuro: Denies: headache. Objective General VS/I O: Last Documented: Result Date Time Pulse Ox 95 06/09 1129 B/P 127/79 06/09 1129 B/P Mean 0.0 06/09 1129 O2 Delivery Room air 06/09 1129 Temp 36.7 06/09 1129 Pulse 90 06/09 1129 Resp 14 06/09 1129 O2 Flow Rate 2 06/07 0900 FiO2 40 06/04 0925 24 hour I O ending at 0700: 06/09 0700 06/08 1900 Intake Total 1411.00 Output Total 1275 2860 Balance -1275 -1449.00 Intake, IV 286.00 Intake, Oral 1125 Number 1 Bowel Movements Number Voids 4 3 Output, Urine 1275 2860 Patient 109.6 kg Weight Weight Standing scale Measurement Method PATIENT WEIGHT: Weight (lb): 241 Weight (oz): 10.03 Weight (kg): 109.600 Medications: Active Meds + DC'd Last 24 Hrs Metoprolol Tartrate (LOPRESSOR) 6.25 MG ONCE ONE PO Vancomycin HCl (Vancomycin 1,500 mg Inj (B2)) 1,500 MG PREOP ONCALL IV ( CKD) Sodium Chloride (NS 0.9%) 500 ML Verapamil HCl (ISOPTIN) 16.6 MG .Q24H IV (CKD) Heparin Sodium (Porcine) (HEPARIN SODIUM) 1,660 UNIT Sodium Bicarbonate (SODIUM BICARBONATE) 0.7 ML Nitroglycerin/Dextrose (NITROGLYCERIN 50MG/D5W 250ML) 8.3 MG Lactated Ringer's (LACTATED RINGERS) 949.5 ML Acetaminophen (TYLENOL EXTRA STRENGTH) 1,000 MG PREOP ONCALL PO (CKD) Gabapentin (NEURONTIN) 200 MG PREOP ONCALL PO (CKD) Insulin Glargine (Semglee) 10 UNIT DAILY SUBQ Insulin Human Lispro (HUMALOG) 4 UNIT AC SUBQ Furosemide (LASIX 40 mg/4 mL INJECTION) 40 MG BID IV Gabapentin (NEURONTIN) 100 MG BEDTIME PO Docusate Sodium (COLACE) 100 MG DAILY PRN PRN PO Polyethylene Glycol (MIRALAX) 17 GM DAILY PRN PRN PO Lactulose (LACTULOSE) 10 GM DAILY PRN PRN PO Multivitamins (TAB-A-KANDI) 1 TAB DAILY PO Thiamine HCl (THIAMINE HCL) 100 MG DAILY PO Aspirin (ASPIRIN) 81 MG DAILY PO Carvedilol (COREG) 12.5 MG Q12HR PO Amlodipine Besylate (NORVASC) 10 MG BEDTIME PO Atorvastatin Calcium (LIPITOR) 40 MG 2100 PO Doxazosin Mesylate (CARDURA) 2 MG BEDTIME PO Insulin Human Lispro (HUMALOG) 0 AC HS SUBQ Acetaminophen (TYLENOL) 650 MG Q4H PRN PRN PO Dextrose/Water (DEXTROSE 10% IN WATER) 125 ML ASDIR PRN IV (CKD) Dextrose/Water (DEXTROSE 10% IN WATER) 250 ML ASDIR PRN IV (CKD) Glucagon (GLUCAGON) 1 MG ASDIR PRN IM Hydralazine HCl (APRESOLINE) 10 MG Q6H PRN PRN IV Ondansetron HCl (ZOFRAN) 4 MG Q4H PRN PRN IV Nitroglycerin (NITROSTAT) 0.4 MG Q5M PRN PRN SL Heparin Sodium (HEPARIN 5000 UNITS/ML) 9,000 UNIT ASDIR PRN PRN IV Heparin Sodium (HEPARIN 5000 UNITS/ML) 4,500 UNIT ASDIR PRN PRN IV Heparin Sodium (Porcine) (HEPARIN 25,000 UNITS/ 1/2NS 500ML) 500 ML ASDIR IV (CKD) Dietitian nutrition assessment The data set between the solid lines has been imported from the dietitian's assessment. BMI Calculated: 35.7 Nutrition related diagnosis: Nutrition diagnosis details: Nutrition problem: Nutrition etiology: Nutrition signs and symptoms: Nutrition prescription: Dietitian name: Assessment completed: Physical Exam General appearance: alert, awake, oriented HEENT: atraumatic, normocephalic Neck: full range of motion Cardiovascular: normal S1/S2, regular rate rhythm Respiratory: symmetric expansion, no distress Abdomen: non-tender, normal bowel sounds, soft, no distention, no guarding Extremities: moves all Musculoskeletal: normal inspection Neuro/BUSINESS AREA MANAGER: alert, oriented X 3, normal speech Skin: dry, intact, normal color Psychiatry: normal affect, normal judgment/insight, normal mood Results Findings/Data: Laboratory Tests 06/10/23 0424: [Embedded Image Not Available] Laboratory Tests 06/09 06/09 06/09 06/09 06/08 1126 0853 0833 0424 2010 Chemistry Sodium (134 - 147 mEq/L) 134 Potassium (3.4 - 5.0 mEq/L) 3.8 Chloride (100 - 108 mEq/L) 100 Carbon Dioxide (21 - 33 mEq/l) 26 Anion Gap (0 - 20) 12 BUN (7 - 25 mg/dL) 17 Creatinine (0.6 - 1.3 mg/dL) 1.0 Glomerular Filtr Rate (80 - 90) 82.0 Glucose (77 - 141 mg/dL) 197 H POC Glucose (70 - 110 MG/DL) 310 H 266 H 231 H 239 H Calcium (8.0 - 10.5 mg/dL) 8.8 Magnesium (1.6 - 2.6 mg/dL) 1.72 Total Bilirubin (0.0 - 1.0 mg/dL) 0.70 Direct Bilirubin (0.1 - 0.3 MG/DL) 0.30 Indirect Bilirubin (MG/DL) 0.40 AST (8 - 34 IUnit/L) 30 ALT (10 - 49 IUnit/L) 30 Total Alk Phosphatase (20 - 125 127 H IUnit/L) Total Protein (6.4 - 8.2 g/dL) 6.7 Albumin (3.4 - 5.0 g/dL) 3.30 L 06/08 1552 Chemistry POC Glucose (70 - 110 MG/DL) 384 H Laboratory Tests 06/09 0424 Coagulation PTT ([place]) (25.0 - 39.5 Seconds) 59.1 H Laboratory Tests 06/09 0424 Hematology WBC (4.5 - 11.0 x10 3/uL) 8.2 RBC (4.00 - 5.60 x10 6/uL) 3.94 L Hgb (12.5 - 16.9 g/dL) 11.9 L Hct (37.5 - 50.7 %) 36.0 L MCV (81.0 - 99.0 fL) 91.4 MCH (27.0 - 33.0 pg) 30.2 MCHC (33.0 - 37.0 g/dL) 33.1 RDW (11.5 - 14.5 %) 13.2 Plt Count (150 - 400 x10 3/uL) 153 MPV (7.0 - 9.0 fL) 11.9 H Neut % (Auto) (56.0 - 77.0 %) 73.4 Lymph % (Auto) (14.0 - 32.0 %) 8.5 L [place] % (Auto) (4.8 - 9.0 %) 12.0 H Eos % (Auto) (0.3 - 3.7 %) 3.9 H Baso % (Auto) (0.0 - 2.0 %) 0.7 Neut # (Auto) (2.0 - 7.6 x10 3/uL) 6.05 Lymph # (Auto) (1.0 - 3.8 x10 3/uL) 0.70 L [place] # (Auto) (0.1 - 0.8 x10 3/uL) 0.99 H Eos # (Auto) (0.0 - 0.2 x10 3/uL) 0.32 H Baso # (Auto) (0.0 - 0.2 x10 3/uL) 0.06 Abs Immat Gran (auto) (0.00 - 0.03 x10 3/uL) 0.12 H Immature Gran % (0.0 - 2.0 %) 1.5 Nucleated RBC % (0 - 0 %) 0.0 Nucleated RBCs # (Man) (0.0 - 0.1 x10 3/uL) 0.00 Results: labs reviewed, vital signs reviewed Diagnosis, Assessment Plan Problem List/A P: 1. Cirrhosis 2. Hepatitis C 3. Elevated LFTs 4. Alcohol dependence 5. CHF exacerbation Free Text A P: (06/03/2023) MELD score of 7 given estimated 3-month mortality of 1.9% No acute complaints. Friend at bedside. Recommendations: 1. Periodically monitor LFTs 2. INR 1.1 3. Abdominal ultrasound revealed cirrhosis with splenomegaly, cholelithiasis, and nonspecific gallbladder wall thickening likely secondary to chronic liver disease as patient does not express abdominal pain at this time 4. History of hepatitis C, PCR - not detected 5. Daily alcohol use, monitor for withdrawal symptoms; MVI and thiamine; encouraged cessation 6. Further recommendations may follow Consultants: cardiology, cardiovascular surgery Rigoberto Jarrell 06/10/232026: Attestations Physician Attestation Agree w/findings plan: Agree with the findings and plan as documented by RAHUL Tobias. at 1422 at 2026 RPT #:[id number] END OF REPORT [facility] 2023-06-10 06:47:00 [facility] ([facility]) Cardiology Progress Note REPORT#:[id number] REPORT STATUS: Signed REPORT INITIALIZATION DATE:06/10/23 TIME: 646 PATIENT: MINDY CARTER UNIT #: [id number] ROOM/BED: [place] [address] : 54 AGE: 67 SEX: M ATTEND: Denise Montejo MD ADM AUTHOR: Clayton Nathan MD REPT SERVICE DT/TIME: 06/10/23 0647 * ALL edits or amendments must be made on the electronic/computer document * Subjective Free Text Subj Notes Free Text Subj Notes: Cardiology progress note Date of service: 06/10/2023 Chief complaint/reason for consult: NSTEMI Patient seen and examined, chart reviewed, questions/concerns addressed with RN. Current medication and vitals reviewed. HPI and interval Hx: Plan for CABG tomorrow. Subjective: No chest pain today Objective: Vital Signs Date Temp Pulse Resp B/P B/P Mean Pulse Ox FiO2 06/08-06/09 97.5-98.4 87-97 18-21 114-147/67-77 0.0 91-96 GEN: Alert and cooperative, no acute distress. HEENT: NC/AT, EOMI CARD: RRR, normal S1/S2 LUNGS: CTA w/o added sounds, GBAE. Assessment, Impression and medical decision making: -NSTEMI -Acute on chronic diastolic congestive heart -Morbid obesity -Hypertension, hyperlipidemia, type 2 diabetes mellitus Plan/recommendation: -Coronary angiogram showed left main/LAD stenosis -Plan for CABG tomorrow -Resume heparin drip, continue with aspirin statin and beta-blockers at 0823 RPT #:[id number] END OF REPORT [facility] 2023-06-09 13:38:00 [facility] Nephrology Progress Note REPORT#:[id number] REPORT STATUS: Signed REPORT INITIALIZATION DATE:06/09/23 TIME: 1337 PATIENT: MINDY CARTER UNIT #: [id number] ROOM/BED: [place] [address] : 54 AGE: 67 SEX: M ATTEND: Denise Montejo MD ADM AUTHOR: Nkechi Bacon MD REPT SERVICE DT/TIME: 06/09/23 1338 * ALL edits or amendments must be made on the electronic/computer document * Subjective Chief complaint: SOB, CP HPI: 67-year-old male known to have hypertension, diabetes mellitus, hyperlipidemia, liver cirrhosis, chronic kidney disease who presented with shortness of breath and chest tightness and on further workup was found to have multivessel disease therefore he was being worked up for possible CABG. He said he had been diagnosed recently with chronic kidney disease but did not have any nausea, orthopnea, cramping, change of taste, involuntary movements, urinary complaints. He denied any chronic use of NSAIDs. He said for most part his blood pressures were controlled at home. 06/08 Patient denying all systemic review. Feeling well. Objective General VS/I O: Vital Signs: Date Time Temp Pulse Resp B/P B/P Pulse O2 O2 Flow FiO2 Mean Ox Delivery Rate 06/08 1131 36.8 92 18 133/77 0.0 96 06/08 0834 94 Room air 06/08 0729 36.8 91 21 133/67 0.0 92 06/08 0400 97 33 123/69 90 98 06/08 0357 36.8 93 18 124/63 0.0 100 Room air 06/08 0344 98 Room air 06/08 0300 88 24 124/64 88 99 06/08 0200 90 26 132/67 93 96 06/08 0101 89 31 119/60 80 06/08 0101 88 06/08 0000 91 17 131/79 100 98 06/07 2300 93 27 144/82 107 97 06/07 2227 36.9 93 18 142/77 0.0 96 Room air 06/07 2200 94 30 148/82 109 98 06/07 2100 90 27 121/64 87 96 06/07 2000 95 24 131/75 98 97 06/07 1900 88 24 130/67 91 96 06/07 1839 36.8 91 18 126/74 0.0 95 Room air 06/07 1558 36.6 92 18 127/71 0.0 98 24 hour I O ending at 0700: 06/08 0700 06/07 1900 Intake Total 420 250 Output Total 1300 950 Balance -880 -700 Intake, Oral 420 250 Number 1 Bowel Movements Output, Urine 1300 950 Patient 110.1 kg Weight Weight Standing scale Measurement Method PATIENT WEIGHT: Weight (lb): 242 Weight (oz): 11.66 Weight (kg): 110.100 Physical Exam General appearance: alert, awake, oriented Head/eyes: atraumatic, EOMI ENT: moist mucous membranes, normal nose Neck: no JVD, no lymphadenopathy Cardiovascular: normal heart sounds, regular rate and rhythm Respiratory: aerating well, clear to auscultation Abdomen: non-tender, soft Genitourinary: no bladder distention, no flank pain Extremities: no edema, no gangrene, no swelling Diagnosis, Assessment Plan Free Text A P: 67-year-old male known to have hypertension, diabetes mellitus, hyperlipidemia, liver cirrhosis, chronic kidney disease who presented with shortness of breath and chest tightness and on further workup was found to have multivessel disease therefore he was being worked up for possible CABG. He said he had been diagnosed recently with chronic kidney disease but did not have any nausea, orthopnea, cramping, change of taste, involuntary movements, urinary complaints. He denied any chronic use of NSAIDs. He said for most part his blood pressures were controlled at home. Nephrology following for: 1. CKD:: Most recent creatinine was staying in normal range therefore plan is to keep mean arterial pressure above 65 and avoid nephrotoxic agents. 2. Hypertension: Mostly controlled therefore plan is to continue same. 3. Hypervolemia: Plan is to monitor input and output closely and treat with Lasix if needed. His echocardiogram showed an EF of 55 to 60%. 4. Chest pain/shortness of breath: He had been worked up with left heart cath and received contrast recently. Plan was to monitor closely for contrast- induced nephropathy and keep hydrated. 06/08 1. CKD:: Renal function stable therefore plan is to keep mean arterial pressure above 65 and avoid nephrotoxic agents. 2. Hypertension: Mostly controlled therefore plan is to continue same. 3. Hypervolemia: Currently on lasix, diuresing well. His echocardiogram showed an EF of 55 to 60%. 4. Chest pain/shortness of breath: He had been worked up with left heart cath and received contrast recently. Plan was to monitor closely for contrast- induced nephropathy and keep hydrated.Plan for open heart surgery on Wednesday. Consultants: cardiology, cardiovascular surgery at 1454 RPT #:[id number] END OF REPORT [facility] 2023-06-09 13:01:00 [facility] Cardiothoracic Surgery Prog REPORT#:[id number] REPORT STATUS: Signed REPORT INITIALIZATION DATE:06/09/23 TIME: 1301 PATIENT: MINDY CARTER UNIT #: [id number] ROOM/BED: [place] [address] : 54 AGE: 67 SEX: M ATTEND: Kimmie Bacon MD ADM AUTHOR: Nathaniel Martel MD REPT SERVICE DT/TIME: 06/09/23 1301 * ALL edits or amendments must be made on the electronic/computer document * Subjective Chief complaint: preop cabg Review of Systems Constitutional: Denies: chills, fatigue, fever. Skin: Denies: abrasion, bruising, contusion. Allergy/Immun: Denies: allergic reaction, anaphylaxis, hives. Respiratory: Denies: HERRING (dyspnea on exertion), SOB. Cardiovascular: Denies: chest pain, palpitations. Heme: Denies: adenopathy, bleeding, bruising. Endocrine: Denies: cold intolerance, heat intolerance, polydipsia. Neuro: Denies: confusion, dizziness, seizure, syncope. All systems rev neg: except as marked Objective General VS/I O Last Documented: Result Date Time Pulse Ox 96 06/08 1131 B/P 133/77 06/08 1131 B/P Mean 0.0 06/08 1131 Temp 36.8 06/08 1131 Pulse 92 06/08 1131 Resp 18 06/08 1131 O2 Delivery Room air 06/08 0834 O2 Flow Rate 2 06/07 0900 FiO2 40 06/04 0925 24 hour I O ending at 0700: 06/08 0700 06/07 1900 Intake Total 420 250 Output Total 1300 950 Balance -880 -700 Intake, Oral 420 250 Number 1 Bowel Movements Output, Urine 1300 950 Patient 110.1 kg Weight Weight Standing scale Measurement Method PATIENT WEIGHT: Weight (lb): 242 Weight (oz): 11.66 Weight (kg): 110.100 Dietitian Nutrition assessment The data set between the solid lines has been imported from the dietitian's assessment. BMI Calculated: 36.2 Nutrition related diagnosis: Nutrition diagnosis details: Nutrition problem: Nutrition etiology: Nutrition signs and symptoms: Nutrition prescription: Dietitian name: Assessment completed: Physical Exam General appearance: alert, awake, oriented, no acute distress HEENT: anicteric, mucosal membranes moist, pupils reactive to light Neck: full range of motion, non-tender Cardiovascular: normal heart sounds, regular rate rhythm Respiratory: aerating well, symmetric expansion Abdomen: soft, non-tender Genitourinary: no bladder distention, no flank pain Extremities: dry, moves all Musculoskeletal: full range of motion, painless range of motion Skin: dry, intact Psychiatry: normal affect, normal mood Current Medications Medications: Active Meds + DC'd Last 24 Hrs Insulin Glargine (Semglee) 10 UNIT DAILY SUBQ (UNV) Insulin Human Lispro (HUMALOG) 4 UNIT AC SUBQ (UNV) Furosemide (LASIX 40 mg/4 mL INJECTION) 40 MG BID IV Gabapentin (NEURONTIN) 100 MG BEDTIME PO Insulin Glargine (Semglee) 7 UNIT DAILY SUBQ (DCr) Docusate Sodium (COLACE) 100 MG DAILY PRN PRN PO Polyethylene Glycol (MIRALAX) 17 GM DAILY PRN PRN PO Lactulose (LACTULOSE) 10 GM DAILY PRN PRN PO Furosemide (LASIX) 40 MG DAILY PO (DC) Multivitamins (TAB-A-KANDI) 1 TAB DAILY PO Thiamine HCl (THIAMINE HCL) 100 MG DAILY PO Aspirin (ASPIRIN) 81 MG DAILY PO Carvedilol (COREG) 12.5 MG Q12HR PO Amlodipine Besylate (NORVASC) 10 MG BEDTIME PO Atorvastatin Calcium (LIPITOR) 40 MG 2100 PO Doxazosin Mesylate (CARDURA) 2 MG BEDTIME PO Insulin Human Lispro (HUMALOG) 0 AC HS SUBQ Acetaminophen (TYLENOL) 650 MG Q4H PRN PRN PO Dextrose/Water (DEXTROSE 10% IN WATER) 125 ML ASDIR PRN IV (CKD) Dextrose/Water (DEXTROSE 10% IN WATER) 250 ML ASDIR PRN IV (CKD) Glucagon (GLUCAGON) 1 MG ASDIR PRN IM Hydralazine HCl (APRESOLINE) 10 MG Q6H PRN PRN IV Ondansetron HCl (ZOFRAN) 4 MG Q4H PRN PRN IV Nitroglycerin (NITROSTAT) 0.4 MG Q5M PRN PRN SL Heparin Sodium (HEPARIN 5000 UNITS/ML) 9,000 UNIT ASDIR PRN PRN IV Heparin Sodium (HEPARIN 5000 UNITS/ML) 4,500 UNIT ASDIR PRN PRN IV Heparin Sodium (Porcine) (HEPARIN 25,000 UNITS/ 1/2NS 500ML) 500 ML ASDIR IV (CKD) Results Findings/Data: Laboratory Tests 06/08 06/08 06/08 06/07 06/07 1127 0725 0540 2227 2006 Chemistry Sodium (134 - 147 mEq/L) 133 L Potassium (3.4 - 5.0 mEq/L) 4.0 Chloride (100 - 108 mEq/L) 102 Carbon Dioxide (21 - 33 mEq/l) 25 Anion Gap (0 - 20) 10 BUN (7 - 25 mg/dL) 17 Creatinine (0.6 - 1.3 mg/dL) 1.0 Glomerular Filtr Rate (80 - 90) 82.0 Glucose (77 - 141 mg/dL) 254 H POC Glucose (70 - 110 MG/DL) 317 H 269 H 326 H 313 H Calcium (8.0 - 10.5 mg/dL) 9.0 Magnesium (1.6 - 2.6 mg/dL) 1.76 06/07 1551 Chemistry POC Glucose (70 - 110 MG/DL) 343 H Laboratory Tests 06/08 0540 Coagulation PTT ([place]) (25.0 - 39.5 Seconds) 62.5 H Laboratory Tests 06/08 0540 Hematology WBC (4.5 - 11.0 x10 3/uL) 9.1 RBC (4.00 - 5.60 x10 6/uL) 4.15 Hgb (12.5 - 16.9 g/dL) 12.5 Hct (37.5 - 50.7 %) 37.6 MCV (81.0 - 99.0 fL) 90.6 MCH (27.0 - 33.0 pg) 30.1 MCHC (33.0 - 37.0 g/dL) 33.2 RDW (11.5 - 14.5 %) 13.3 Plt Count (150 - 400 x10 3/uL) 160 MPV (7.0 - 9.0 fL) 11.9 H Neut % (Auto) (56.0 - 77.0 %) 73.8 Lymph % (Auto) (14.0 - 32.0 %) 9.0 L [place] % (Auto) (4.8 - 9.0 %) 11.4 H Eos % (Auto) (0.3 - 3.7 %) 3.7 Baso % (Auto) (0.0 - 2.0 %) 0.9 Neut # (Auto) (2.0 - 7.6 x10 3/uL) 6.72 Lymph # (Auto) (1.0 - 3.8 x10 3/uL) 0.82 L [place] # (Auto) (0.1 - 0.8 x10 3/uL) 1.04 H Eos # (Auto) (0.0 - 0.2 x10 3/uL) 0.34 H Baso # (Auto) (0.0 - 0.2 x10 3/uL) 0.08 Abs Immat Gran (auto) (0.00 - 0.03 x10 3/uL) 0.11 H Immature Gran % (0.0 - 2.0 %) 1.2 Nucleated RBC % (0 - 0 %) 0.0 Nucleated RBCs # (Man) (0.0 - 0.1 x10 3/uL) 0.00 Results: labs reviewed, vital signs stable, franklin personally rev'd, current med profile rev'd Quality: Trauma Gen Surg Advanced Care Plan 65 or Older Discussed with: patient Discussion included: living will, power of defense attorney, code status Current Medications Current medication review: I attest that the foregoing medication list in the medical record is true, accurate, and complete to the best of my knowledge. VTE Prophylaxis - General VTE prophylaxis initiated: yes Diagnosis, Assessment Plan Hospital course to date: This is a 67-year-old gentleman with a past medical history of hypertension, hyperlipidemia, diabetes, neuropathy, alcohol use, liver cirrhosis, kidney disease, syncope who came to the hospital with shortness of breath and chest tightness for 2 days. Patient describes significant orthopnea and increasing edema in bilateral lower extremities that brought the patient to the hospital. Initial workup positive for mildly elevated troponin and elevated BNP and was diagnosed with NSTEMI and CHF exacerbation with acute hypoxic respiratory failure. Patient then underwent cardiac catheterization for elevated troponin. CV surgery was consulted for multivessel coronary artery disease found on angiogram. 1. multivessel disease -Patient underwent cardiac angiogram: Left main-proximal to mid 60 to 70% stenosis LAD-ostial LAD 90% stenosis Left circumflex-patent RCA-mild 30 to 40% mid stenosis EF 55 to 60% Wall motion is normal, grade 1 diastolic dysfunction, normal systolic function. Mitral valve: Moderately calcified with leaflet thickening. Moderate stenosis. Mild regurgitation. Aortic valve: Thickening and sclerosis 2. Liver disease -Patient recently diagnosed. Patient does not live local to [place]. Will consult gastroenterology to see patient. -EtOH cessation 3. Chronic kidney disease -Patient does not live local to [place]. Will consult nephrology to see patient. Patient will be presented at complex cardiology conference on Wednesday. Further recommendations to follow. 06/04/23 Patient in stable condition Labs and imaging reviewed Case presented at complex cardiology conference this morning and the team deemed patient will be best be suited with CABG. Preop workup ongoing Timing of surgery pending Plan of care discussed with patient and family. All questions were answered. 06/05/23 Patient doing well, denies chest pain Labs reviewed Pre op workup ongoing, pending vein mapping and carotid duplex On 4l nasal cannula, wean off oxygen as tolerated Incentive spirometer teaching Cardiac diet OOB to chair, ambulate Plan of care discussed with patient, all questions were answered. 06/06/23 Patient in stable condition Denies chest pain Wean off oxygen Encourage I-S use and deep breathing Tentatively plan for CABG in the upcoming week Plan of care discussed with patient, all questions were answered. 06/07/23 Patient seen and examined, denies chest pain Labs reviewed I-S use encourage, wean off oxygen as tolerated, on 2 L nasal cannula Tolerating diet Out of bed in chair, PT OT Timing of surgery pending Plan of care discussed with the patient, all questions were answered 06/08/23 Patient in stable condition Labs reviewed On room air, encourage I-S use Preop workup completed I will tentatively schedule him for surgery on Wednesday Plan of care discussed with patient, all questions were answered 06/09/23 Patient in stable condition Labs reviewed On room air, encourage I-S use Preop workup completed I will tentatively schedule him for surgery on Wednesday Plan of care discussed with patient, all questions were answered Consultants: cardiology, cardiovascular surgery at 1011 RPT #:[id number] END OF REPORT [facility] 2023-06-09 13:00:[address] [facility]) Gastroenterology Progress Note REPORT#:[id number] REPORT STATUS: Signed REPORT INITIALIZATION DATE:06/09/23 TIME: 1300 PATIENT: MINDY CARTER UNIT #: [id number] ROOM/BED: [place] [address] : 54 AGE: 67 SEX: M ATTEND: Denise Montejo MD ADM AUTHOR: Farideh Harris REPT SERVICE DT/TIME: 06/09/23 1300 * ALL edits or amendments must be made on the electronic/computer document * Farideh Harris 06/09/23 1300: Subjective Patient reports: Yes: bowel movement, passing gas. No: abdominal pain, black stools, nausea, rectal bleeding, vomiting. Review of Systems Constitutional: Denies: chills, fever. Respiratory: Denies: SOB. Cardiovascular: Denies: chest pain. Neuro: Denies: headache. Objective General VS/I O: Last Documented: Result Date Time Pulse Ox 91 06/08 1601 B/P 147/67 06/08 1601 B/P Mean 0.0 06/08 1601 Temp 36.7 06/08 1601 Pulse 92 06/08 1601 Resp 19 06/08 1601 O2 Delivery Room air 06/08 0834 O2 Flow Rate 2 06/07 0900 FiO2 40 06/04 0925 24 hour I O ending at 0700: 06/08 0700 06/07 1900 Intake Total 420 250 Output Total 1300 950 Balance -880 -700 Intake, Oral 420 250 Number 1 Bowel Movements Output, Urine 1300 950 Patient 110.1 kg Weight Weight Standing scale Measurement Method PATIENT WEIGHT: Weight (lb): 242 Weight (oz): 11.66 Weight (kg): 110.100 Medications: Active Meds + DC'd Last 24 Hrs Insulin Glargine (Semglee) 10 UNIT DAILY SUBQ Insulin Human Lispro (HUMALOG) 4 UNIT AC SUBQ Furosemide (LASIX 40 mg/4 mL INJECTION) 40 MG BID IV Gabapentin (NEURONTIN) 100 MG BEDTIME PO Insulin Glargine (Semglee) 7 UNIT DAILY SUBQ (DC) Docusate Sodium (COLACE) 100 MG DAILY PRN PRN PO Polyethylene Glycol (MIRALAX) 17 GM DAILY PRN PRN PO Lactulose (LACTULOSE) 10 GM DAILY PRN PRN PO Furosemide (LASIX) 40 MG DAILY PO (DC) Multivitamins (TAB-A-KANDI) 1 TAB DAILY PO Thiamine HCl (THIAMINE HCL) 100 MG DAILY PO Aspirin (ASPIRIN) 81 MG DAILY PO Carvedilol (COREG) 12.5 MG Q12HR PO Amlodipine Besylate (NORVASC) 10 MG BEDTIME PO Atorvastatin Calcium (LIPITOR) 40 MG 2100 PO Doxazosin Mesylate (CARDURA) 2 MG BEDTIME PO Insulin Human Lispro (HUMALOG) 0 AC HS SUBQ Acetaminophen (TYLENOL) 650 MG Q4H PRN PRN PO Dextrose/Water (DEXTROSE 10% IN WATER) 125 ML ASDIR PRN IV (CKD) Dextrose/Water (DEXTROSE 10% IN WATER) 250 ML ASDIR PRN IV (CKD) Glucagon (GLUCAGON) 1 MG ASDIR PRN IM Hydralazine HCl (APRESOLINE) 10 MG Q6H PRN PRN IV Ondansetron HCl (ZOFRAN) 4 MG Q4H PRN PRN IV Nitroglycerin (NITROSTAT) 0.4 MG Q5M PRN PRN SL Heparin Sodium (HEPARIN 5000 UNITS/ML) 9,000 UNIT ASDIR PRN PRN IV Heparin Sodium (HEPARIN 5000 UNITS/ML) 4,500 UNIT ASDIR PRN PRN IV Heparin Sodium (Porcine) (HEPARIN 25,000 UNITS/ 1/2NS 500ML) 500 ML ASDIR IV (CKD) Dietitian nutrition assessment The data set between the solid lines has been imported from the dietitian's assessment. BMI Calculated: 36.2 Nutrition related diagnosis: Nutrition diagnosis details: Nutrition problem: Nutrition etiology: Nutrition signs and symptoms: Nutrition prescription: Dietitian name: Assessment completed: Physical Exam General appearance: alert, awake, oriented HEENT: atraumatic, normocephalic Neck: full range of motion Cardiovascular: normal S1/S2, regular rate rhythm Respiratory: symmetric expansion, no distress Abdomen: non-tender, normal bowel sounds, soft, no distention, no guarding Extremities: moves all Musculoskeletal: normal inspection Neuro/BUSINESS AREA MANAGER: alert, oriented X 3, normal speech Skin: dry, intact, normal color Psychiatry: normal affect, normal judgment/insight, normal mood Results Findings/Data: Laboratory Tests 06/09/23 0540: [Embedded Image Not Available] Laboratory Tests 06/08 06/08 06/08 06/08 06/07 1552 1127 0725 0540 2228 Chemistry Sodium (134 - 147 mEq/L) 133 L Potassium (3.4 - 5.0 mEq/L) 4.0 Chloride (100 - 108 mEq/L) 102 Carbon Dioxide (21 - 33 mEq/l) 25 Anion Gap (0 - 20) 10 BUN (7 - 25 mg/dL) 17 Creatinine (0.6 - 1.3 mg/dL) 1.0 Glomerular Filtr Rate (80 - 90) 82.0 Glucose (77 - 141 mg/dL) 254 H POC Glucose (70 - 110 MG/DL) 384 H 317 H 269 H 326 H Calcium (8.0 - 10.5 mg/dL) 9.0 Magnesium (1.6 - 2.6 mg/dL) 1.76 06/07 2006 Chemistry POC Glucose (70 - 110 MG/DL) 313 H Laboratory Tests 06/08 0540 Coagulation PTT ([place]) (25.0 - 39.5 Seconds) 62.5 H Laboratory Tests 06/08 0540 Hematology WBC (4.5 - 11.0 x10 3/uL) 9.1 RBC (4.00 - 5.60 x10 6/uL) 4.15 Hgb (12.5 - 16.9 g/dL) 12.5 Hct (37.5 - 50.7 %) 37.6 MCV (81.0 - 99.0 fL) 90.6 MCH (27.0 - 33.0 pg) 30.1 MCHC (33.0 - 37.0 g/dL) 33.2 RDW (11.5 - 14.5 %) 13.3 Plt Count (150 - 400 x10 3/uL) 160 MPV (7.0 - 9.0 fL) 11.9 H Neut % (Auto) (56.0 - 77.0 %) 73.8 Lymph % (Auto) (14.0 - 32.0 %) 9.0 L [place] % (Auto) (4.8 - 9.0 %) 11.4 H Eos % (Auto) (0.3 - 3.7 %) 3.7 Baso % (Auto) (0.0 - 2.0 %) 0.9 Neut # (Auto) (2.0 - 7.6 x10 3/uL) 6.72 Lymph # (Auto) (1.0 - 3.8 x10 3/uL) 0.82 L [place] # (Auto) (0.1 - 0.8 x10 3/uL) 1.04 H Eos # (Auto) (0.0 - 0.2 x10 3/uL) 0.34 H Baso # (Auto) (0.0 - 0.2 x10 3/uL) 0.08 Abs Immat Gran (auto) (0.00 - 0.03 x10 3/uL) 0.11 H Immature Gran % (0.0 - 2.0 %) 1.2 Nucleated RBC % (0 - 0 %) 0.0 Nucleated RBCs # (Man) (0.0 - 0.1 x10 3/uL) 0.00 Results: labs reviewed, vital signs reviewed Diagnosis, Assessment Plan Problem List/A P: 1. Cirrhosis 2. Hepatitis C 3. Elevated LFTs 4. Alcohol dependence 5. CHF exacerbation Free Text A P: (06/03/2023) MELD score of 7 given estimated 3-month mortality of 1.9% Feeling better. Recommendations: 1. Periodically monitor LFTs 2. INR 1.1 3. Abdominal ultrasound revealed cirrhosis with splenomegaly, cholelithiasis, and nonspecific gallbladder wall thickening likely secondary to chronic liver disease as patient does not express abdominal pain at this time 4. History of hepatitis C, PCR - not detected 5. Daily alcohol use, monitor for withdrawal symptoms; MVI and thiamine; encouraged cessation 6. Further recommendations may follow Consultants: cardiology, cardiovascular surgery Attestations Attestation needed: supervising physician Rigoberto Jarrell 06/09/231950: Attestations Physician Attestation Agree w/findings plan: Agree with the findings and plan as documented by RAHUL Tobias. at 1659 at 195 RPT #:[id number] END OF REPORT [facility] 2023-06-09 12:46:00 [facility] REPORT#:[id number] REPORT STATUS: Signed REPORT INITIALIZATION DATE:06/09/23 TIME: 124 PATIENT: MINDY CARTER UNIT #: [id number] ROOM/BED: [place] [address] : 54 AGE: 67 SEX: M ATTEND: Denise Montejo MD ADM AUTHOR: Denise Montejo MD REPT SERVICE DT/TIME: 06/09/23 1246 * ALL edits or amendments must be made on the electronic/computer document * Subjective Chief complaint: pt sitting up, more alert, no acute concerns. HPI: This is a 67-year-old male with history of high blood pressure, hyperlipidemia, diabetes mellitus, syncope, neuropathy, alcohol use, liver cirrhosis, stage II CKD presents with shortness of breath that has been increasing since 2 days ago. Patient took extra dose of Aldactone and hydrochlorothiazide which did not help. Patient also reports chest tightness and is currently on 5 L of oxygen per nasal cannula. Patient says that he cannot lie down he gets short of breath when he lies down. He drinks whiskey about 3 shots a day. He has been having increasing edema in bilateral lower extremities. No headaches or dizziness. No other complaints elicited. Review of Systems All systems rev neg: except as noted Objective General VS/I O: Vital Signs: Date Time Temp Pulse Resp B/P B/P Pulse O2 O2 Flow FiO2 Mean Ox Delivery Rate 06/08 1131 98.2 92 18 133/77 0.0 96 06/08 0834 94 Room air 06/08 0729 98.2 91 21 133/67 0.0 92 06/08 0400 97 33 123/69 90 98 06/08 0357 98.2 93 18 124/63 0.0 100 Room air 06/08 0344 98 Room air 06/08 0300 88 24 124/64 88 99 06/08 0200 90 26 132/67 93 96 06/08 0101 89 31 119/60 80 06/08 0101 88 06/08 0000 91 17 131/79 100 98 06/07 2300 93 27 144/82 107 97 06/07 2227 98.4 93 18 142/77 0.0 96 Room air 06/07 2200 94 30 148/82 109 98 06/07 2100 90 27 121/64 87 96 06/07 2000 95 24 131/75 98 97 06/07 1900 88 24 130/67 91 96 06/07 1839 98.2 91 18 126/74 0.0 95 Room air 06/07 1558 97.9 92 18 127/71 0.0 98 24 hour I O ending at 0700: 06/08 0700 06/07 1900 Intake Total 420 250 Output Total 1300 950 Balance -880 -700 Intake, Oral 420 250 Number 1 Bowel Movements Output, Urine 1300 950 Patient 110.1 kg Weight Weight Standing scale Measurement Method PATIENT WEIGHT: Weight (lb): 242 Weight (oz): 11.66 Weight (kg): 110.100 Medications: Active Meds + DC'd Last 24 Hrs Furosemide (LASIX 40 mg/4 mL INJECTION) 40 MG BID IV Gabapentin (NEURONTIN) 100 MG BEDTIME PO Insulin Glargine (Semglee) 7 UNIT DAILY SUBQ Docusate Sodium (COLACE) 100 MG DAILY PRN PRN PO Polyethylene Glycol (MIRALAX) 17 GM DAILY PRN PRN PO Lactulose (LACTULOSE) 10 GM DAILY PRN PRN PO Furosemide (LASIX) 40 MG DAILY PO (DC) Multivitamins (TAB-A-KANDI) 1 TAB DAILY PO Thiamine HCl (THIAMINE HCL) 100 MG DAILY PO Aspirin (ASPIRIN) 81 MG DAILY PO Carvedilol (COREG) 12.5 MG Q12HR PO Amlodipine Besylate (NORVASC) 10 MG BEDTIME PO Atorvastatin Calcium (LIPITOR) 40 MG 2100 PO Doxazosin Mesylate (CARDURA) 2 MG BEDTIME PO Insulin Human Lispro (HUMALOG) 0 AC HS SUBQ Acetaminophen (TYLENOL) 650 MG Q4H PRN PRN PO Dextrose/Water (DEXTROSE 10% IN WATER) 125 ML ASDIR PRN IV (CKD) Dextrose/Water (DEXTROSE 10% IN WATER) 250 ML ASDIR PRN IV (CKD) Glucagon (GLUCAGON) 1 MG ASDIR PRN IM Hydralazine HCl (APRESOLINE) 10 MG Q6H PRN PRN IV Ondansetron HCl (ZOFRAN) 4 MG Q4H PRN PRN IV Nitroglycerin (NITROSTAT) 0.4 MG Q5M PRN PRN SL Heparin Sodium (HEPARIN 5000 UNITS/ML) 9,000 UNIT ASDIR PRN PRN IV Heparin Sodium (HEPARIN 5000 UNITS/ML) 4,500 UNIT ASDIR PRN PRN IV Heparin Sodium (Porcine) (HEPARIN 25,000 UNITS/ 1/2NS 500ML) 500 ML ASDIR IV (CKD) Dietitian nutrition assessment The data set between the solid lines has been imported from the dietitian's assessment. BMI Calculated: 36.2 Nutrition related diagnosis: Nutrition diagnosis details: Nutrition problem: Nutrition etiology: Nutrition signs and symptoms: Nutrition prescription: Dietitian name: Assessment completed: Physical Exam General appearance: alert, awake, oriented Head/Eyes: atraumatic, clear cornea, EOMI, PERRLA Neck: normal thyroid, supple/no meningismus Cardiovascular: normal heart sounds, regular rate rhythm, no gallop, no murmur , no rub Respiratory: aerating well, clear to auscultation Abdomen: non-tender, normal bowel sounds, soft, no distention Extremities: edema, no clubbing, no cyanosis Neuro/BUSINESS AREA MANAGER: alert, oriented X 3, CNII-XII intact Skin: dry, intact, no rash Results Findings/Data: Laboratory Tests 06/08 06/08 06/07 06/07 06/07 0725 0540 2228 2007 1551 Chemistry Sodium (134 - 147 mEq/L) 133 L Potassium (3.4 - 5.0 mEq/L) 4.0 Chloride (100 - 108 mEq/L) 102 Carbon Dioxide (21 - 33 mEq/l) 25 Anion Gap (0 - 20) 10 BUN (7 - 25 mg/dL) 17 Creatinine (0.6 - 1.3 mg/dL) 1.0 Glomerular Filtr Rate (80 - 90) 82.0 Glucose (77 - 141 mg/dL) 254 H POC Glucose (70 - 110 MG/DL) 269 H 326 H 313 H 343 H Calcium (8.0 - 10.5 mg/dL) 9.0 Magnesium (1.6 - 2.6 mg/dL) 1.76 Laboratory Tests 06/08 0540 Coagulation PTT ([place]) (25.0 - 39.5 Seconds) 62.5 H Laboratory Tests 06/08 0540 Hematology WBC (4.5 - 11.0 x10 3/uL) 9.1 RBC (4.00 - 5.60 x10 6/uL) 4.15 Hgb (12.5 - 16.9 g/dL) 12.5 Hct (37.5 - 50.7 %) 37.6 MCV (81.0 - 99.0 fL) 90.6 MCH (27.0 - 33.0 pg) 30.1 MCHC (33.0 - 37.0 g/dL) 33.2 RDW (11.5 - 14.5 %) 13.3 Plt Count (150 - 400 x10 3/uL) 160 MPV (7.0 - 9.0 fL) 11.9 H Neut % (Auto) (56.0 - 77.0 %) 73.8 Lymph % (Auto) (14.0 - 32.0 %) 9.0 L [place] % (Auto) (4.8 - 9.0 %) 11.4 H Eos % (Auto) (0.3 - 3.7 %) 3.7 Baso % (Auto) (0.0 - 2.0 %) 0.9 Neut # (Auto) (2.0 - 7.6 x10 3/uL) 6.72 Lymph # (Auto) (1.0 - 3.8 x10 3/uL) 0.82 L [place] # (Auto) (0.1 - 0.8 x10 3/uL) 1.04 H Eos # (Auto) (0.0 - 0.2 x10 3/uL) 0.34 H Baso # (Auto) (0.0 - 0.2 x10 3/uL) 0.08 Abs Immat Gran (auto) (0.00 - 0.03 x10 3/uL) 0.11 H Immature Gran % (0.0 - 2.0 %) 1.2 Nucleated RBC % (0 - 0 %) 0.0 Nucleated RBCs # (Man) (0.0 - 0.1 x10 3/uL) 0.00 Diagnosis, Assessment Plan Problem List/A P: 1. CHF exacerbation Orders: Procedure Date/time Status Weigh patient daily 06/08 2111 Active Strict I O 06/08 2111 Active Consultants: cardiology, cardiovascular surgery Free Text DxA P Notes Free text DxA P notes: Shortness of breath Differential diagnosis includes CHF Placed on Lasix 40 mg IV every 8 hours Cardiology consulted Echo ordered Chest tightness Possibly secondary to fluid overload Cardiology consulted Echo pending Elevated troponin Consulted cardiology On Lovenox Diabetes mellitus A1c 8.4% Sliding scale insulin as needed Hypertension Renew medications once they have been updated in the computer Check labs in the a.m. Patient does not have a living will or medical power of defense attorney Patient is a full code 06/01 multivessel disease on cath, CTS consulted, patient undergoing preop evaluation for possible CABG. 06/02- pt continues cabg eval, conf Fri, nephro/GI consulted per cts, renal indices wnls today, Abd us confirmed cirrhosis with splenomegaly. 06/03 patient continues preop evaluation for CABG, IV Lasix transition to oral 06/04 CABG preop planning 06/05- CABG planning 06/06 ongoing CABG planning per CTS, blood sugars noted to be elevated in 240s to 300s. Will start on basal insulin 7 units for now daily, continue meal correctional insulin. Patient on glipizide and metformin at home holding for now given CABG eval and and pending surgical date. 06/07- pending CABG eval, d/w Cardiology and started patient on IV lasix 40 mg BID due to increasing wt, symptoms of dyspnea. Monitor I'O's. 06/08- poorly controlled blood sugars noted, increased basal insulin to 10 units daily, add meal time insulin AC, wt based compared to SSI admin, started on 4 Units reg insulin AC. Monitor I/O, contiued on IV lasix 40 mg BID, wt 110 kg today (dry wt reported to be 105 kg). Quality: Gen Med Crit Care VTE Prophylaxis VTE prophylaxis initiated: yes Current Medications Current medication review: I attest that the foregoing medication list in the medical record is true, accurate, and complete to the best of my knowledge. Advanced Care Plan 65 or Older Discussed with: patient Discussion included: living will, power of defense attorney, code status at 1251 RPT #:[id number] END OF REPORT [facility] 2023-06-08 21:12:00 [facility] REPORT#:[id number] REPORT STATUS: Signed REPORT INITIALIZATION DATE:06/08/23 TIME: 2111 PATIENT: MINDY CARTER UNIT #: [id number] ROOM/BED: [place] [address] : 54 AGE: 67 SEX: M ATTEND: Denise Montejo MD ADM AUTHOR: Denise Montejo MD REPT SERVICE DT/TIME: 06/08/232111 * ALL edits or amendments must be made on the electronic/computer document * Subjective Chief complaint: patient seen this am resting, 110 kg this am, with some LE edema noted, per dry wt is 105. HPI: This is a 67-year-old male with history of high blood pressure, hyperlipidemia, diabetes mellitus, syncope, neuropathy, alcohol use, liver cirrhosis, stage II CKD presents with shortness of breath that has been increasing since 2 days ago. Patient took extra dose of Aldactone and hydrochlorothiazide which did not help. Patient also reports chest tightness and is currently on 5 L of oxygen per nasal cannula. Patient says that he cannot lie down he gets short of breath when he lies down. He drinks whiskey about 3 shots a day. He has been having increasing edema in bilateral lower extremities. No headaches or dizziness. No other complaints elicited. Review of Systems All systems rev neg: except as noted Objective General VS/I O: Vital Signs: Date Time Temp Pulse Resp B/P B/P Pulse O2 O2 Flow FiO2 Mean Ox Delivery Rate 06/07 1839 98.2 91 18 126/74 0.0 95 Room air 06/07 1558 97.9 92 18 127/71 0.0 98 06/07 1149 98.2 91 16 133/77 0.0 99 06/07 0900 96 Nasal 2 cannula 06/07 0721 98.1 90 14 135/82 0.0 96 06/07 0700 89 32 135/82 102 98 06/07 0600 93 39 126/72 90 97 06/07 0500 90 30 122/64 85 97 06/07 0405 98.2 90 19 142/84 0.0 95 Room air 06/07 0400 91 34 142/84 108 95 06/07 0300 89 32 122/64 85 95 06/07 0200 94 29 130/74 96 95 06/07 0101 89 26 121/64 89 94 06/07 0000 90 25 140/70 99 96 06/06 2308 98.1 90 19 128/75 0.0 97 Room air 06/06 2300 85 25 95 06/06 2240 96 Nasal 2 cannula 06/06 2200 88 29 94 24 hour I O ending at 0700: 06/07 0700 06/06 1900 Intake Total 240 702.80 Output Total 700 3190 Balance -460 -2487.20 Intake, IV 302.80 Intake, Oral 240 400 Number 1 Bowel Movements Number Voids 3 Output, Urine 700 3190 Patient 110.4 kg Weight Weight Standing scale Measurement Method PATIENT WEIGHT: Weight (lb): 243 Weight (oz): 6.25 Weight (kg): 110.400 Medications: Active Meds + DC'd Last 24 Hrs Furosemide (LASIX 40 mg/4 mL INJECTION) 40 MG BID IV Gabapentin (NEURONTIN) 100 MG BEDTIME PO Insulin Glargine (Semglee) 7 UNIT DAILY SUBQ Docusate Sodium (COLACE) 100 MG DAILY PRN PRN PO Polyethylene Glycol (MIRALAX) 17 GM DAILY PRN PRN PO Lactulose (LACTULOSE) 10 GM DAILY PRN PRN PO Furosemide (LASIX) 40 MG DAILY PO (DC) Multivitamins (TAB-A-KANDI) 1 TAB DAILY PO Thiamine HCl (THIAMINE HCL) 100 MG DAILY PO Aspirin (ASPIRIN) 81 MG DAILY PO Carvedilol (COREG) 12.5 MG Q12HR PO Amlodipine Besylate (NORVASC) 10 MG BEDTIME PO Atorvastatin Calcium (LIPITOR) 40 MG 2100 PO Doxazosin Mesylate (CARDURA) 2 MG BEDTIME PO Insulin Human Lispro (HUMALOG) 0 AC HS SUBQ Acetaminophen (TYLENOL) 650 MG Q4H PRN PRN PO Dextrose/Water (DEXTROSE 10% IN WATER) 125 ML ASDIR PRN IV (CKD) Dextrose/Water (DEXTROSE 10% IN WATER) 250 ML ASDIR PRN IV (CKD) Glucagon (GLUCAGON) 1 MG ASDIR PRN IM Hydralazine HCl (APRESOLINE) 10 MG Q6H PRN PRN IV Ondansetron HCl (ZOFRAN) 4 MG Q4H PRN PRN IV Nitroglycerin (NITROSTAT) 0.4 MG Q5M PRN PRN SL Heparin Sodium (HEPARIN 5000 UNITS/ML) 9,000 UNIT ASDIR PRN PRN IV Heparin Sodium (HEPARIN 5000 UNITS/ML) 4,500 UNIT ASDIR PRN PRN IV Heparin Sodium (Porcine) (HEPARIN 25,000 UNITS/ 1/2NS 500ML) 500 ML ASDIR IV (CKD) Dietitian nutrition assessment The data set between the solid lines has been imported from the dietitian's assessment. BMI Calculated: 36.2 Nutrition related diagnosis: Nutrition diagnosis details: Nutrition problem: Nutrition etiology: Nutrition signs and symptoms: Nutrition prescription: Dietitian name: Assessment completed: Physical Exam General appearance: alert, awake, oriented Head/Eyes: atraumatic, clear cornea, EOMI, PERRLA Neck: normal thyroid, supple/no meningismus Cardiovascular: normal heart sounds, regular rate rhythm, no gallop, no murmur , no rub Respiratory: aerating well, clear to auscultation Abdomen: non-tender, normal bowel sounds, soft, no distention Extremities: edema, no clubbing, no cyanosis Neuro/BUSINESS AREA MANAGER: alert, oriented X 3, CNII-XII intact Skin: dry, intact, no rash Results Findings/Data: Laboratory Tests 06/07 1551 1146 0715 0446 Chemistry Sodium (134 - 147 mEq/L) 134 Potassium (3.4 - 5.0 mEq/L) 4.0 Chloride (100 - 108 mEq/L) 102 Carbon Dioxide (21 - 33 mEq/l) 25 Anion Gap (0 - 20) 11 BUN (7 - 25 mg/dL) 17 Creatinine (0.6 - 1.3 mg/dL) 1.0 Glomerular Filtr Rate (80 - 90) 82.0 Glucose (77 - 141 mg/dL) 222 H POC Glucose (70 - 110 MG/DL) 313 H 343 H 333 H 245 H Calcium (8.0 - 10.5 mg/dL) 9.1 Magnesium (1.6 - 2.6 mg/dL) 1.89 Laboratory Tests 06/07 445 Coagulation PTT (Rashida) (25.0 - 39.5 Seconds) 61.5 H Laboratory Tests 06/076 Hematology WBC (4.5 - 11.0 x10 3/uL) 9.1 RBC (4.00 - 5.60 x10 6/uL) 4.15 Hgb (12.5 - 16.9 g/dL) 12.4 L Hct (37.5 - 50.7 %) 37.7 MCV (81.0 - 99.0 fL) 90.8 MCH (27.0 - 33.0 pg) 29.9 MCHC (33.0 - 37.0 g/dL) 32.9 L RDW (11.5 - 14.5 %) 13.2 Plt Count (150 - 400 x10 3/uL) 156 MPV (7.0 - 9.0 fL) 12.2 H Neut % (Auto) (56.0 - 77.0 %) 76.5 Lymph % (Auto) (14.0 - 32.0 %) 8.1 L [place] % (Auto) (4.8 - 9.0 %) 10.4 H Eos % (Auto) (0.3 - 3.7 %) 3.4 Baso % (Auto) (0.0 - 2.0 %) 0.7 Neut # (Auto) (2.0 - 7.6 x10 3/uL) 6.95 Lymph # (Auto) (1.0 - 3.8 x10 3/uL) 0.74 L [place] # (Auto) (0.1 - 0.8 x10 3/uL) 0.94 H Eos # (Auto) (0.0 - 0.2 x10 3/uL) 0.31 H Baso # (Auto) (0.0 - 0.2 x10 3/uL) 0.06 Abs Immat Gran (auto) (0.00 - 0.03 x10 3/uL) 0.08 H Immature Gran % (0.0 - 2.0 %) 0.9 Nucleated RBC % (0 - 0 %) 0.0 Nucleated RBCs # (Man) (0.0 - 0.1 x10 3/uL) 0.00 Diagnosis, Assessment Plan Problem List/A P: 1. CHF exacerbation Orders: Procedure Date/time Status Weigh patient daily 06/07 2112 Active Strict I O 06/07 2112 Active OXYGEN PER HOUR 06/07 0900 Complete OXYGEN PER HOUR 06/06 0900 Complete Consultants: cardiology, cardiovascular surgery Code status: full code Free Text DxA P Notes Free text DxA P notes: Shortness of breath Differential diagnosis includes CHF Placed on Lasix 40 mg IV every 8 hours Cardiology consulted Echo ordered Chest tightness Possibly secondary to fluid overload Cardiology consulted Echo pending Elevated troponin Consulted cardiology On Lovenox Diabetes mellitus A1c 8.4% Sliding scale insulin as needed Hypertension Renew medications once they have been updated in the computer Check labs in the a.m. Patient does not have a living will or medical power of defense attorney Patient is a full code 06/01 multivessel disease on cath, CTS consulted, patient undergoing preop evaluation for possible CABG. 06/02- pt continues cabg eval, conf Fri, nephro/GI consulted per cts, renal indices wnls today, Abd us confirmed cirrhosis with splenomegaly. 06/03 patient continues preop evaluation for CABG, IV Lasix transition to oral 06/04 CABG preop planning 06/05- CABG planning 06/06 ongoing CABG planning per CTS, blood sugars noted to be elevated in 240s to 300s. Will start on basal insulin 7 units for now daily, continue meal correctional insulin. Patient on glipizide and metformin at home holding for now given CABG eval and and pending surgical date. 06/07- pending CABG eval, d/w Cardiology and started patient on IV lasix 40 mg BID due to increasing wt, symptoms of dyspnea. Monitor I'O's. Quality: Gen Med Crit Care VTE Prophylaxis VTE prophylaxis initiated: yes Current Medications Current medication review: I attest that the foregoing medication list in the medical record is true, accurate, and complete to the best of my knowledge. Advanced Care Plan 65 or Older Discussed with: patient Discussion included: living will, power of defense attorney, code status at 2115 RPT #:[id number] END OF REPORT [facility] 2023-06-08 16:11:00 [facility] ([facility]) Nephrology Progress Note REPORT#:[id number] REPORT STATUS: Signed REPORT INITIALIZATION DATE:06/08/23 TIME: 161 PATIENT: MINDY CARTER UNIT #: [id number] ROOM/BED: [place] [id number] : 54 AGE: 67 SEX: M ATTEND: Denise Montejo MD ADM AUTHOR: Nkechi Bacon MD REPT SERVICE DT/TIME: 06/08/23 1611 * ALL edits or amendments must be made on the electronic/computer document * Subjective Chief complaint: SOB, CP HPI: 67-year-old male known to have hypertension, diabetes mellitus, hyperlipidemia, liver cirrhosis, chronic kidney disease who presented with shortness of breath and chest tightness and on further workup was found to have multivessel disease therefore he was being worked up for possible CABG. He said he had been diagnosed recently with chronic kidney disease but did not have any nausea, orthopnea, cramping, change of taste, involuntary movements, urinary complaints. He denied any chronic use of NSAIDs. He said for most part his blood pressures were controlled at home. 06/07 Patient denying all systemic review. Objective General VS/I O: Vital Signs: Date Time Temp Pulse Resp B/P B/P Pulse O2 O2 Flow FiO2 Mean Ox Delivery Rate 06/08 1131 36.8 92 18 133/77 0.0 96 06/08 0834 94 Room air 06/08 0729 36.8 91 21 133/67 0.0 92 06/08 0400 97 33 123/69 90 98 06/08 0357 36.8 93 18 124/63 0.0 100 Room air 06/08 0344 98 Room air 06/08 0300 88 24 124/64 88 99 06/08 0200 90 26 132/67 93 96 06/08 0101 89 31 119/60 80 06/08 0101 88 06/08 0000 91 17 131/79 100 98 06/07 2300 93 27 144/82 107 97 06/07 2227 36.9 93 18 142/77 0.0 96 Room air 06/07 2200 94 30 148/82 109 98 06/07 2100 90 27 121/64 87 96 06/07 2000 95 24 131/75 98 97 06/07 1900 88 24 130/67 91 96 06/07 1839 36.8 91 18 126/74 0.0 95 Room air 06/07 1558 36.6 92 18 127/71 0.0 98 24 hour I O ending at 0700: 06/08 0700 06/07 1900 Intake Total 420 250 Output Total 1300 950 Balance -880 -700 Intake, Oral 420 250 Number 1 Bowel Movements Output, Urine 1300 950 Patient 110.1 kg Weight Weight Standing scale Measurement Method PATIENT WEIGHT: Weight (lb): 242 Weight (oz): 11.66 Weight (kg): 110.100 Physical Exam General appearance: alert, awake, oriented Head/eyes: atraumatic, EOMI ENT: moist mucous membranes, normal nose Neck: no JVD, no lymphadenopathy Cardiovascular: normal heart sounds, regular rate and rhythm Respiratory: aerating well, clear to auscultation Abdomen: non-tender, soft Genitourinary: no bladder distention, no flank pain Extremities: no edema, no gangrene, no swelling Diagnosis, Assessment Plan Free Text A P: 67-year-old male known to have hypertension, diabetes mellitus, hyperlipidemia, liver cirrhosis, chronic kidney disease who presented with shortness of breath and chest tightness and on further workup was found to have multivessel disease therefore he was being worked up for possible CABG. He said he had been diagnosed recently with chronic kidney disease but did not have any nausea, orthopnea, cramping, change of taste, involuntary movements, urinary complaints. He denied any chronic use of NSAIDs. He said for most part his blood pressures were controlled at home. Nephrology following for: 1. CKD:: Most recent creatinine was staying in normal range therefore plan is to keep mean arterial pressure above 65 and avoid nephrotoxic agents. 2. Hypertension: Mostly controlled therefore plan is to continue same. 3. Hypervolemia: Plan is to monitor input and output closely and treat with Lasix if needed. His echocardiogram showed an EF of 55 to 60%. 4. Chest pain/shortness of breath: He had been worked up with left heart cath and received contrast recently. Plan was to monitor closely for contrast- induced nephropathy and keep hydrated. 06/07 1. CKD:: Renal function stable therefore plan is to keep mean arterial pressure above 65 and avoid nephrotoxic agents. 2. Hypertension: Mostly controlled therefore plan is to continue same. 3. Hypervolemia: Currently on lasix, diuresing well. His echocardiogram showed an EF of 55 to 60%. 4. Chest pain/shortness of breath: He had been worked up with left heart cath and received contrast recently. Plan was to monitor closely for contrast- induced nephropathy and keep hydrated. Consultants: cardiology, cardiovascular surgery at 1338 RPT #:[id number] END OF REPORT [facility] 2023-06-08 14:36:00 [facility] ([facility]) Cardiothoracic Surgery Prog REPORT#:[id number] REPORT STATUS: Signed REPORT INITIALIZATION DATE:06/08/23 TIME: 1435 PATIENT: MINDY CARTER UNIT #: [id number] ROOM/BED: [place] [address] : 54 AGE: 67 SEX: M ATTEND: Kimmie Bacon MD ADM AUTHOR: Nathaniel Martel MD REPT SERVICE DT/TIME: 06/08/23 2379 * ALL edits or amendments must be made on the electronic/computer document * Subjective Chief complaint: preop cabg Review of Systems Constitutional: Denies: chills, fatigue, fever. Skin: Denies: abrasion, bruising, contusion. Allergy/Immun: Denies: allergic reaction, anaphylaxis, hives. Respiratory: Denies: HERRING (dyspnea on exertion), SOB. Cardiovascular: Denies: chest pain, palpitations. Heme: Denies: adenopathy, bleeding, bruising. Endocrine: Denies: cold intolerance, heat intolerance, polydipsia. Neuro: Denies: confusion, dizziness, seizure, syncope. All systems rev neg: except as marked Objective General VS/I O Last Documented: Result Date Time Pulse Ox 99 06/07 1149 B/P 133/77 06/07 1149 B/P Mean 0.0 06/07 1149 Temp 36.8 06/07 1149 Pulse 91 06/07 1149 Resp 16 06/07 1149 O2 Delivery Room air 06/07 0405 O2 Flow Rate 2 06/06 2240 FiO2 40 06/04 0925 24 hour I O ending at 0700: 06/07 0700 06/06 1900 Intake Total 240 702.80 Output Total 700 3190 Balance -460 -2487.20 Intake, IV 302.80 Intake, Oral 240 400 Number 1 Bowel Movements Number Voids 3 Output, Urine 700 3190 Patient 110.4 kg Weight Weight Standing scale Measurement Method PATIENT WEIGHT: Weight (lb): 243 Weight (oz): 6.25 Weight (kg): 110.400 Dietitian Nutrition assessment The data set between the solid lines has been imported from the dietitian's assessment. BMI Calculated: 36.2 Nutrition related diagnosis: Nutrition diagnosis details: Nutrition problem: Nutrition etiology: Nutrition signs and symptoms: Nutrition prescription: Dietitian name: Assessment completed: Physical Exam General appearance: alert, awake, oriented HEENT: anicteric, mucosal membranes moist, pupils reactive to light Neck: full range of motion, non-tender Cardiovascular: normal heart sounds, regular rate rhythm Respiratory: aerating well, symmetric expansion Abdomen: soft, non-tender Genitourinary: no bladder distention, no flank pain Extremities: dry, moves all Musculoskeletal: full range of motion, painless range of motion Skin: dry, intact Psychiatry: normal affect, normal mood Current Medications Medications: Active Meds + DC'd Last 24 Hrs Gabapentin (NEURONTIN) 100 MG BEDTIME PO Insulin Glargine (Semglee) 7 UNIT DAILY SUBQ Docusate Sodium (COLACE) 100 MG DAILY PRN PRN PO Polyethylene Glycol (MIRALAX) 17 GM DAILY PRN PRN PO Lactulose (LACTULOSE) 10 GM DAILY PRN PRN PO Furosemide (LASIX) 40 MG DAILY PO Multivitamins (TAB-A-KANDI) 1 TAB DAILY PO Thiamine HCl (THIAMINE HCL) 100 MG DAILY PO Aspirin (ASPIRIN) 81 MG DAILY PO Carvedilol (COREG) 12.5 MG Q12HR PO Amlodipine Besylate (NORVASC) 10 MG BEDTIME PO Atorvastatin Calcium (LIPITOR) 40 MG 2100 PO Doxazosin Mesylate (CARDURA) 2 MG BEDTIME PO Insulin Human Lispro (HUMALOG) 0 AC HS SUBQ Acetaminophen (TYLENOL) 650 MG Q4H PRN PRN PO Dextrose/Water (DEXTROSE 10% IN WATER) 125 ML ASDIR PRN IV (CKD) Dextrose/Water (DEXTROSE 10% IN WATER) 250 ML ASDIR PRN IV (CKD) Glucagon (GLUCAGON) 1 MG ASDIR PRN IM Hydralazine HCl (APRESOLINE) 10 MG Q6H PRN PRN IV Ondansetron HCl (ZOFRAN) 4 MG Q4H PRN PRN IV Nitroglycerin (NITROSTAT) 0.4 MG Q5M PRN PRN SL Heparin Sodium (HEPARIN 5000 UNITS/ML) 9,000 UNIT ASDIR PRN PRN IV Heparin Sodium (HEPARIN 5000 UNITS/ML) 4,500 UNIT ASDIR PRN PRN IV Heparin Sodium (Porcine) (HEPARIN 25,000 UNITS/ 1/2NS 500ML) 500 ML ASDIR IV (CKD) Results Findings/Data: Laboratory Tests 06/07 06/07 06/07 06/06 06/06 1146 0715 0446 1999 1639 Chemistry Sodium (134 - 147 mEq/L) 134 Potassium (3.4 - 5.0 mEq/L) 4.0 Chloride (100 - 108 mEq/L) 102 Carbon Dioxide (21 - 33 mEq/l) 25 Anion Gap (0 - 20) 11 BUN (7 - 25 mg/dL) 17 Creatinine (0.6 - 1.3 mg/dL) 1.0 Glomerular Filtr Rate (80 - 90) 82.0 Glucose (77 - 141 mg/dL) 222 H POC Glucose (70 - 110 MG/DL) 333 H 245 H 246 H 280 H Calcium (8.0 - 10.5 mg/dL) 9.1 Magnesium (1.6 - 2.6 mg/dL) 1.89 Laboratory Tests 06/076 Coagulation PTT ([place]) (25.0 - 39.5 Seconds) 61.5 H Laboratory Tests 06/07 445 Hematology WBC (4.5 - 11.0 x10 3/uL) 9.1 RBC (4.00 - 5.60 x10 6/uL) 4.15 Hgb (12.5 - 16.9 g/dL) 12.4 L Hct (37.5 - 50.7 %) 37.7 MCV (81.0 - 99.0 fL) 90.8 MCH (27.0 - 33.0 pg) 29.9 MCHC (33.0 - 37.0 g/dL) 32.9 L RDW (11.5 - 14.5 %) 13.2 Plt Count (150 - 400 x10 3/uL) 156 MPV (7.0 - 9.0 fL) 12.2 H Neut % (Auto) (56.0 - 77.0 %) 76.5 Lymph % (Auto) (14.0 - 32.0 %) 8.1 L [place] % (Auto) (4.8 - 9.0 %) 10.4 H Eos % (Auto) (0.3 - 3.7 %) 3.4 Baso % (Auto) (0.0 - 2.0 %) 0.7 Neut # (Auto) (2.0 - 7.6 x10 3/uL) 6.95 Lymph # (Auto) (1.0 - 3.8 x10 3/uL) 0.74 L [place] # (Auto) (0.1 - 0.8 x10 3/uL) 0.94 H Eos # (Auto) (0.0 - 0.2 x10 3/uL) 0.31 H Baso # (Auto) (0.0 - 0.2 x10 3/uL) 0.06 Abs Immat Gran (auto) (0.00 - 0.03 x10 3/uL) 0.08 H Immature Gran % (0.0 - 2.0 %) 0.9 Nucleated RBC % (0 - 0 %) 0.0 Nucleated RBCs # (Man) (0.0 - 0.1 x10 3/uL) 0.00 Results: labs reviewed, vital signs stable, franklin personally rev'd, current med profile rev'd Quality: Trauma Gen Surg Advanced Care Plan 65 or Older Discussed with: patient Discussion included: living will, power of defense attorney, code status Current Medications Current medication review: I attest that the foregoing medication list in the medical record is true, accurate, and complete to the best of my knowledge. VTE Prophylaxis - General VTE prophylaxis initiated: yes Diagnosis, Assessment Plan Hospital course to date: This is a 67-year-old gentleman with a past medical history of hypertension, hyperlipidemia, diabetes, neuropathy, alcohol use, liver cirrhosis, kidney disease, syncope who came to the hospital with shortness of breath and chest tightness for 2 days. Patient describes significant orthopnea and increasing edema in bilateral lower extremities that brought the patient to the hospital. Initial workup positive for mildly elevated troponin and elevated BNP and was diagnosed with NSTEMI and CHF exacerbation with acute hypoxic respiratory failure. Patient then underwent cardiac catheterization for elevated troponin. CV surgery was consulted for multivessel coronary artery disease found on angiogram. 1. multivessel disease -Patient underwent cardiac angiogram: Left main-proximal to mid 60 to 70% stenosis LAD-ostial LAD 90% stenosis Left circumflex-patent RCA-mild 30 to 40% mid stenosis EF 55 to 60% Wall motion is normal, grade 1 diastolic dysfunction, normal systolic function. Mitral valve: Moderately calcified with leaflet thickening. Moderate stenosis. Mild regurgitation. Aortic valve: Thickening and sclerosis 2. Liver disease -Patient recently diagnosed. Patient does not live local to [place]. Will consult gastroenterology to see patient. -EtOH cessation 3. Chronic kidney disease -Patient does not live local to [place]. Will consult nephrology to see patient. Patient will be presented at complex cardiology conference on Wednesday. Further recommendations to follow. 06/04/23 Patient in stable condition Labs and imaging reviewed Case presented at complex cardiology conference this morning and the team deemed patient will be best be suited with CABG. Preop workup ongoing Timing of surgery pending Plan of care discussed with patient and family. All questions were answered. 06/05/23 Patient doing well, denies chest pain Labs reviewed Pre op workup ongoing, pending vein mapping and carotid duplex On 4l nasal cannula, wean off oxygen as tolerated Incentive spirometer teaching Cardiac diet OOB to chair, ambulate Plan of care discussed with patient, all questions were answered. 06/06/23 Patient in stable condition Denies chest pain Wean off oxygen Encourage I-S use and deep breathing Tentatively plan for CABG in the upcoming week Plan of care discussed with patient, all questions were answered. 06/07/23 Patient seen and examined, denies chest pain Labs reviewed I-S use encourage, wean off oxygen as tolerated, on 2 L nasal cannula Tolerating diet Out of bed in chair, PT OT Timing of surgery pending Plan of care discussed with the patient, all questions were answered 06/08/23 Patient in stable condition Labs reviewed On room air, encourage I-S use Preop workup completed I will tentatively schedule him for surgery on Wednesday Plan of care discussed with patient, all questions were answered Consultants: cardiology, cardiovascular surgery at 0956 RPT #:[id number] END OF REPORT [facility] 2023-06-08 12:53:00 [facility] ([facility]) Gastroenterology Progress Note REPORT#:[id number] REPORT STATUS: Signed REPORT INITIALIZATION DATE:06/08/23 TIME: 1253 PATIENT: MINDY CARTER UNIT #: [id number] ROOM/BED: [address] : [birth year] AGE: 67 SEX: M ATTEND: Denise Montejo MD ADM AUTHOR: Farideh Harris REPT SERVICE DT/TIME: 06/08/23 1253 * ALL edits or amendments must be made on the electronic/computer document * Farideh Harris 06/08/23 1253: Subjective Patient reports: Yes: bowel movement, passing gas. No: abdominal pain, black stools, nausea, rectal bleeding, vomiting. Review of Systems Constitutional: Denies: chills, fever. Respiratory: Denies: SOB. Cardiovascular: Denies: chest pain. Neuro: Denies: headache. Objective General VS/I O: Last Documented: Result Date Time Pulse Ox 98 06/07 1558 B/P 127/71 06/07 1558 B/P Mean 0.0 06/07 1558 Temp 36.6 06/07 1558 Pulse 92 06/07 1558 Resp 18 06/07 1558 O2 Delivery Room air 06/07 0405 O2 Flow Rate 2 06/06 2240 FiO2 40 06/04 0925 24 hour I O ending at 0700: 06/07 0700 06/06 1900 Intake Total 240 702.80 Output Total 700 3190 Balance -460 -2487.20 Intake, IV 302.80 Intake, Oral 240 400 Number 1 Bowel Movements Number Voids 3 Output, Urine 700 3190 Patient 110.4 kg Weight Weight Standing scale Measurement Method PATIENT WEIGHT: Weight (lb): 243 Weight (oz): 6.25 Weight (kg): 110.400 Medications: Active Meds + DC'd Last 24 Hrs Gabapentin (NEURONTIN) 100 MG BEDTIME PO Insulin Glargine (Semglee) 7 UNIT DAILY SUBQ Docusate Sodium (COLACE) 100 MG DAILY PRN PRN PO Polyethylene Glycol (MIRALAX) 17 GM DAILY PRN PRN PO Lactulose (LACTULOSE) 10 GM DAILY PRN PRN PO Furosemide (LASIX) 40 MG DAILY PO Multivitamins (TAB-A-KANDI) 1 TAB DAILY PO Thiamine HCl (THIAMINE HCL) 100 MG DAILY PO Aspirin (ASPIRIN) 81 MG DAILY PO Carvedilol (COREG) 12.5 MG Q12HR PO Amlodipine Besylate (NORVASC) 10 MG BEDTIME PO Atorvastatin Calcium (LIPITOR) 40 MG 2100 PO Doxazosin Mesylate (CARDURA) 2 MG BEDTIME PO Insulin Human Lispro (HUMALOG) 0 AC HS SUBQ Acetaminophen (TYLENOL) 650 MG Q4H PRN PRN PO Dextrose/Water (DEXTROSE 10% IN WATER) 125 ML ASDIR PRN IV (CKD) Dextrose/Water (DEXTROSE 10% IN WATER) 250 ML ASDIR PRN IV (CKD) Glucagon (GLUCAGON) 1 MG ASDIR PRN IM Hydralazine HCl (APRESOLINE) 10 MG Q6H PRN PRN IV Ondansetron HCl (ZOFRAN) 4 MG Q4H PRN PRN IV Nitroglycerin (NITROSTAT) 0.4 MG Q5M PRN PRN SL Heparin Sodium (HEPARIN 5000 UNITS/ML) 9,000 UNIT ASDIR PRN PRN IV Heparin Sodium (HEPARIN 5000 UNITS/ML) 4,500 UNIT ASDIR PRN PRN IV Heparin Sodium (Porcine) (HEPARIN 25,000 UNITS/ 1/2NS 500ML) 500 ML ASDIR IV (CKD) Dietitian nutrition assessment The data set between the solid lines has been imported from the dietitian's assessment. BMI Calculated: 36.2 Nutrition related diagnosis: Nutrition diagnosis details: Nutrition problem: Nutrition etiology: Nutrition signs and symptoms: Nutrition prescription: Dietitian name: Assessment completed: Physical Exam General appearance: alert, awake, oriented HEENT: atraumatic, normocephalic Neck: full range of motion Cardiovascular: normal S1/S2, regular rate rhythm Respiratory: symmetric expansion, no distress Abdomen: non-tender, normal bowel sounds, soft, no distention, no guarding Extremities: moves all Musculoskeletal: normal inspection Neuro/BUSINESS AREA MANAGER: alert, oriented X 3, normal speech Skin: dry, intact, normal color Psychiatry: normal affect, normal judgment/insight, normal mood Results Findings/Data: Laboratory Tests 06/08/23 0446: [Embedded Image Not Available] Laboratory Tests 06/07 06/07 06/07 06/07 06/06 1551 1146 0715 0446 2000 Chemistry Sodium (134 - 147 mEq/L) 134 Potassium (3.4 - 5.0 mEq/L) 4.0 Chloride (100 - 108 mEq/L) 102 Carbon Dioxide (21 - 33 mEq/l) 25 Anion Gap (0 - 20) 11 BUN (7 - 25 mg/dL) 17 Creatinine (0.6 - 1.3 mg/dL) 1.0 Glomerular Filtr Rate (80 - 90) 82.0 Glucose (77 - 141 mg/dL) 222 H POC Glucose (70 - 110 MG/DL) 343 H 333 H 245 H 246 H Calcium (8.0 - 10.5 mg/dL) 9.1 Magnesium (1.6 - 2.6 mg/dL) 1.89 06/06 1639 Chemistry POC Glucose (70 - 110 MG/DL) 280 H Laboratory Tests 06/07 0446 Coagulation PTT ([place]) (25.0 - 39.5 Seconds) 61.5 H Laboratory Tests 06/07 0446 Hematology WBC (4.5 - 11.0 x10 3/uL) 9.1 RBC (4.00 - 5.60 x10 6/uL) 4.15 Hgb (12.5 - 16.9 g/dL) 12.4 L Hct (37.5 - 50.7 %) 37.7 MCV (81.0 - 99.0 fL) 90.8 MCH (27.0 - 33.0 pg) 29.9 MCHC (33.0 - 37.0 g/dL) 32.9 L RDW (11.5 - 14.5 %) 13.2 Plt Count (150 - 400 x10 3/uL) 156 MPV (7.0 - 9.0 fL) 12.2 H Neut % (Auto) (56.0 - 77.0 %) 76.5 Lymph % (Auto) (14.0 - 32.0 %) 8.1 L [place] % (Auto) (4.8 - 9.0 %) 10.4 H Eos % (Auto) (0.3 - 3.7 %) 3.4 Baso % (Auto) (0.0 - 2.0 %) 0.7 Neut # (Auto) (2.0 - 7.6 x10 3/uL) 6.95 Lymph # (Auto) (1.0 - 3.8 x10 3/uL) 0.74 L [place] # (Auto) (0.1 - 0.8 x10 3/uL) 0.94 H Eos # (Auto) (0.0 - 0.2 x10 3/uL) 0.31 H Baso # (Auto) (0.0 - 0.2 x10 3/uL) 0.06 Abs Immat Gran (auto) (0.00 - 0.03 x10 3/uL) 0.08 H Immature Gran % (0.0 - 2.0 %) 0.9 Nucleated RBC % (0 - 0 %) 0.0 Nucleated RBCs # (Man) (0.0 - 0.1 x10 3/uL) 0.00 Results: labs reviewed, vital signs reviewed Diagnosis, Assessment Plan Problem List/A P: 1. Cirrhosis 2. Hepatitis C 3. Elevated LFTs 4. Alcohol dependence 5. CHF exacerbation Free Text A P: (06/03/2023) MELD score of 7 given estimated 3-month mortality of 1.9% No acute complaints. at bedside. Recommendations: 1. Periodically monitor LFTs 2. INR 1.1 3. Abdominal ultrasound revealed cirrhosis with splenomegaly, cholelithiasis, and nonspecific gallbladder wall thickening likely secondary to chronic liver disease as patient does not express abdominal pain at this time 4. History of hepatitis C, PCR - not detected 5. Daily alcohol use, monitor for withdrawal symptoms, MVI and thiamine; encouraged cessation 6. Further recommendations may follow Consultants: cardiology, cardiovascular surgery Attestations Attestation needed: supervising physician Rigoberto Jarrell 06/08/23 2133: Attestations Physician Attestation Agree w/findings plan: Agree with the findings and plan as documented by RAHUL Tobias. at 1631 at 2133 RPT #:[id number] END OF REPORT [facility] 2023-06-08 00:58:00 [facility] Nephrology Progress Note REPORT#:[id number] REPORT STATUS: Signed REPORT INITIALIZATION DATE:06/08/23 TIME: 57 PATIENT: MINDY CARTER UNIT #: [id number] ROOM/BED: [address] : 54 AGE: 67 SEX: M ATTEND: Denise Montejo MD ADM AUTHOR: Nkechi Bacon MD REPT SERVICE DT/TIME: 06/07/2357 * ALL edits or amendments must be made on the electronic/computer document * Subjective Chief complaint: SOB, CP HPI: 67-year-old male known to have hypertension, diabetes mellitus, hyperlipidemia, liver cirrhosis, chronic kidney disease who presented with shortness of breath and chest tightness and on further workup was found to have multivessel disease therefore he was being worked up for possible CABG. He said he had been diagnosed recently with chronic kidney disease but did not have any nausea, orthopnea, cramping, change of taste, involuntary movements, urinary complaints. He denied any chronic use of NSAIDs. He said for most part his blood pressures were controlled at home. 06/06 Patient denying all systemic review. Objective General VS/I O: Vital Signs: Date Time Temp Pulse Resp B/P B/P Pulse O2 O2 Flow FiO2 Mean Ox Delivery Rate 06/06 2308 36.7 90 19 128/75 0.0 97 Room air 06/06 2300 85 25 95 06/06 2240 96 Nasal 2 cannula 06/06 2200 88 29 94 06/06 2100 91 30 93 06/06 2000 88 27 97 06/06 1907 36.2 86 18 140/80 0.0 96 Room air 06/06 1906 86 28 140/80 104 93 06/06 1800 95 29 93 06/06 1700 86 35 92 06/06 1653 36.7 85 17 132/69 90 96 06/06 1600 26 92 06/06 1500 90 28 91 06/06 1400 89 27 92 06/06 1300 92 27 95 06/06 1200 92 36 96 06/06 1141 36.7 90 16 123/67 0.0 94 06/06 1137 87 34 123/67 90 94 06/06 1100 86 35 95 06/06 1000 80 23 94 06/06 0927 96 Nasal 2 cannula 06/06 0900 91 38 96 06/06 0800 Nasal 2 cannula 06/06 0800 85 31 96 06/06 0711 36.5 90 14 156/68 0.0 95 06/06 0708 90 31 156/91 116 94 06/06 0500 87 28 132/77 99 93 06/06 0408 36.6 90 14 134/78 0.0 96 Nasal cannula 06/06 0400 90 29 137/80 103 93 06/06 0300 81 24 127/75 96 91 06/06 0200 86 28 129/79 98 89 06/06 0100 83 21 140/79 103 93 24 hour I O ending at 0700: 06/07 0700 06/06 1900 Intake Total 702.80 Output Total 225 3190 Balance -225 -2487.20 Intake, IV 302.80 Intake, Oral 400 Number 1 Bowel Movements Number Voids 3 Output, Urine 225 3190 PATIENT WEIGHT: Weight (lb): 245 Weight (oz): 2.46 Weight (kg): 111.200 Physical Exam General appearance: alert, awake, oriented Head/eyes: atraumatic, EOMI ENT: moist mucous membranes, normal nose Neck: no JVD, no lymphadenopathy Cardiovascular: normal heart sounds, regular rate and rhythm Respiratory: aerating well, clear to auscultation Abdomen: non-tender, soft Genitourinary: no bladder distention, no flank pain Extremities: no edema, no gangrene, no swelling Diagnosis, Assessment Plan Free Text A P: 67-year-old male known to have hypertension, diabetes mellitus, hyperlipidemia, liver cirrhosis, chronic kidney disease who presented with shortness of breath and chest tightness and on further workup was found to have multivessel disease therefore he was being worked up for possible CABG. He said he had been diagnosed recently with chronic kidney disease but did not have any nausea, orthopnea, cramping, change of taste, involuntary movements, urinary complaints. He denied any chronic use of NSAIDs. He said for most part his blood pressures were controlled at home. Nephrology following for: 1. CKD:: Most recent creatinine was staying in normal range therefore plan is to keep mean arterial pressure above 65 and avoid nephrotoxic agents. 2. Hypertension: Mostly controlled therefore plan is to continue same. 3. Hypervolemia: Plan is to monitor input and output closely and treat with Lasix if needed. His echocardiogram showed an EF of 55 to 60%. 4. Chest pain/shortness of breath: He had been worked up with left heart cath and received contrast recently. Plan was to monitor closely for contrast- induced nephropathy and keep hydrated. 06/06 1. CKD:: Renal function stable therefore plan is to keep mean arterial pressure above 65 and avoid nephrotoxic agents. 2. Hypertension: Mostly controlled therefore plan is to continue same. 3. Hypervolemia: Currently on lasix, diuresing well. His echocardiogram showed an EF of 55 to 60%. 4. Chest pain/shortness of breath: He had been worked up with left heart cath and received contrast recently. Plan was to monitor closely for contrast- induced nephropathy and keep hydrated. Consultants: cardiology, cardiovascular surgery at 0100 RPT #:[id number] END OF REPORT [facility] 2023-06-07 14:02:00 [facility] Hospitalist Progress Note REPORT#:[id number] REPORT STATUS: Signed REPORT INITIALIZATION DATE:06/07/23 TIME: 1401 PATIENT: MINDY CARTER UNIT #: [id number] ROOM/BED: [place] [address] : 54 AGE: 67 SEX: M ATTEND: Denise Montejo MD ADM AUTHOR: Denise Montejo MD REPT SERVICE DT/TIME: 06/07/23 1402 * ALL edits or amendments must be made on the electronic/computer document * Subjective Chief complaint: No acute change HPI: This is a 67-year-old male with history of high blood pressure, hyperlipidemia, diabetes mellitus, syncope, neuropathy, alcohol use, liver cirrhosis, stage II CKD presents with shortness of breath that has been increasing since 2 days ago. Patient took extra dose of Aldactone and hydrochlorothiazide which did not help. Patient also reports chest tightness and is currently on 5 L of oxygen per nasal cannula. Patient says that he cannot lie down he gets short of breath when he lies down. He drinks whiskey about 3 shots a day. He has been having increasing edema in bilateral lower extremities. No headaches or dizziness. No other complaints elicited. Review of Systems All systems rev neg: except as noted Objective General VS/I O: Vital Signs: Date Time Temp Pulse Resp B/P B/P Pulse O2 O2 Flow FiO2 Mean Ox Delivery Rate 06/06 1141 98.1 90 16 123/67 0.0 94 06/06 0927 96 Nasal 2 cannula 06/06 0800 Nasal 2 cannula 06/06 0711 97.7 90 14 156/68 0.0 95 06/06 0500 87 28 132/77 99 93 06/06 0408 97.9 90 14 134/78 0.0 96 Nasal cannula 06/06 0400 90 29 137/80 103 93 06/06 0300 81 24 127/75 96 91 06/06 0200 86 28 129/79 98 89 06/06 0100 83 21 140/79 103 93 06/06 0037 Nasal 2 cannula 06/06 0000 90 131/83 101 93 06/05 2354 97.7 90 14 135/78 0.0 92 Room air 06/05 2300 91 124/72 95 91 06/05 2243 92 119/74 93 91 06/05 2100 92 150/83 111 95 06/05 2000 88 25 131/74 96 91 06/05 1915 91 133/77 100 93 06/05 1854 97.9 91 14 142/82 0.0 94 Nasal cannula 06/05 1819 90 27 96 06/05 1800 94 21 96 06/05 1700 84 37 95 06/05 1608 98.2 84 24 134/72 0.0 95 Room air 06/05 1606 84 26 134/72 97 95 06/05 1600 86 32 97 06/05 1500 87 24 97 24 hour I O ending at 0700: 06/06 0700 06/05 1900 Intake Total 420 932.00 Output Total 1000 1000 Balance -580 -68.00 Intake, IV 292.00 Intake, Oral 420 640 Output, Urine 1000 1000 Patient 111.2 kg Weight Weight Standing scale Measurement Method PATIENT WEIGHT: Weight (lb): 245 Weight (oz): 2.46 Weight (kg): 111.200 Medications: Active Meds + DC'd Last 24 Hrs Docusate Sodium (COLACE) 100 MG DAILY PRN PRN PO Polyethylene Glycol (MIRALAX) 17 GM DAILY PRN PRN PO Lactulose (LACTULOSE) 10 GM DAILY PRN PRN PO Furosemide (LASIX) 40 MG DAILY PO Multivitamins (TAB-A-KANDI) 1 TAB DAILY PO Thiamine HCl (THIAMINE HCL) 100 MG DAILY PO Aspirin (ASPIRIN) 81 MG DAILY PO Carvedilol (COREG) 12.5 MG Q12HR PO Amlodipine Besylate (NORVASC) 10 MG BEDTIME PO Atorvastatin Calcium (LIPITOR) 40 MG 2100 PO Doxazosin Mesylate (CARDURA) 2 MG BEDTIME PO Insulin Human Lispro (HUMALOG) 0 AC HS SUBQ Acetaminophen (TYLENOL) 650 MG Q4H PRN PRN PO Dextrose/Water (DEXTROSE 10% IN WATER) 125 ML ASDIR PRN IV (CKD) Dextrose/Water (DEXTROSE 10% IN WATER) 250 ML ASDIR PRN IV (CKD) Glucagon (GLUCAGON) 1 MG ASDIR PRN IM Hydralazine HCl (APRESOLINE) 10 MG Q6H PRN PRN IV Ondansetron HCl (ZOFRAN) 4 MG Q4H PRN PRN IV Nitroglycerin (NITROSTAT) 0.4 MG Q5M PRN PRN SL Heparin Sodium (HEPARIN 5000 UNITS/ML) 9,000 UNIT ASDIR PRN PRN IV Heparin Sodium (HEPARIN 5000 UNITS/ML) 4,500 UNIT ASDIR PRN PRN IV Heparin Sodium (Porcine) (HEPARIN 25,000 UNITS/ 1/2NS 500ML) 500 ML ASDIR IV (CKD) Dietitian nutrition assessment The data set between the solid lines has been imported from the dietitian's assessment. BMI Calculated: 35.0 Nutrition related diagnosis: Nutrition diagnosis details: Nutrition problem: Nutrition etiology: Nutrition signs and symptoms: Nutrition prescription: Dietitian name: Assessment completed: Physical Exam General appearance: respiratory support (nasal oxygen), alert, awake, oriented Head/Eyes: atraumatic, clear cornea, EOMI, PERRLA Neck: normal thyroid, supple/no meningismus Cardiovascular: normal heart sounds, regular rate rhythm, no gallop, no murmur , no rub Respiratory: aerating well, clear to auscultation Abdomen: non-tender, normal bowel sounds, soft, no distention Extremities: edema, no clubbing, no cyanosis Neuro/BUSINESS AREA MANAGER: alert, oriented X 3, CNII-XII intact Skin: dry, intact, no rash Results Findings/Data: Laboratory Tests 06/06 06/06 06/06 06/05 06/05 1139 0702 235 2014 1604 Chemistry Sodium (134 - 147 mEq/L) 134 Potassium (3.4 - 5.0 mEq/L) 3.8 Chloride (100 - 108 mEq/L) 102 Carbon Dioxide (21 - 33 mEq/l) 23 Anion Gap (0 - 20) 13 BUN (7 - 25 mg/dL) 17 Creatinine (0.6 - 1.3 mg/dL) 0.9 Glomerular Filtr Rate (80 - 90) 93.0 H Glucose (77 - 141 mg/dL) 201 H POC Glucose (70 - 110 MG/DL) 248 H 229 H 239 H 217 H Calcium (8.0 - 10.5 mg/dL) 8.3 Magnesium (1.6 - 2.6 mg/dL) 1.87 Laboratory Tests 06/066 Coagulation PTT ([place]) (25.0 - 39.5 Seconds) 57.6 H Laboratory Tests 06/066 Hematology WBC (4.5 - 11.0 x10 3/uL) 8.0 RBC (4.00 - 5.60 x10 6/uL) 3.88 L Hgb (12.5 - 16.9 g/dL) 11.7 L Hct (37.5 - 50.7 %) 35.4 L MCV (81.0 - 99.0 fL) 91.2 MCH (27.0 - 33.0 pg) 30.2 MCHC (33.0 - 37.0 g/dL) 33.1 RDW (11.5 - 14.5 %) 13.1 Plt Count (150 - 400 x10 3/uL) 135 L MPV (7.0 - 9.0 fL) 12.4 H Neut % (Auto) (56.0 - 77.0 %) 74.9 Lymph % (Auto) (14.0 - 32.0 %) 8.7 L [place] % (Auto) (4.8 - 9.0 %) 10.9 H Eos % (Auto) (0.3 - 3.7 %) 3.6 Baso % (Auto) (0.0 - 2.0 %) 0.8 Neut # (Auto) (2.0 - 7.6 x10 3/uL) 5.96 Lymph # (Auto) (1.0 - 3.8 x10 3/uL) 0.69 L [place] # (Auto) (0.1 - 0.8 x10 3/uL) 0.87 H Eos # (Auto) (0.0 - 0.2 x10 3/uL) 0.29 H Baso # (Auto) (0.0 - 0.2 x10 3/uL) 0.06 Abs Immat Gran (auto) (0.00 - 0.03 x10 3/uL) 0.09 H Immature Gran % (0.0 - 2.0 %) 1.1 Nucleated RBC % (0 - 0 %) 0.0 Nucleated RBCs # (Man) (0.0 - 0.1 x10 3/uL) 0.00 Diagnosis, Assessment Plan Problem List/A P: 1. CHF exacerbation Consultants: cardiology, cardiovascular surgery Free Text DxA P Notes Free text DxA P notes: Shortness of breath Differential diagnosis includes CHF Placed on Lasix 40 mg IV every 8 hours Cardiology consulted Echo ordered Chest tightness Possibly secondary to fluid overload Cardiology consulted Echo pending Elevated troponin Consulted cardiology On Lovenox Diabetes mellitus A1c 8.4% Sliding scale insulin as needed Hypertension Renew medications once they have been updated in the computer Check labs in the a.m. Patient does not have a living will or medical power of defense attorney Patient is a full code 06/01 multivessel disease on cath, CTS consulted, patient undergoing preop evaluation for possible CABG. 06/02- pt continues cabg eval, conf Fri, nephro/GI consulted per cts, renal indices wnls today, Abd us confirmed cirrhosis with splenomegaly. 06/03 patient continues preop evaluation for CABG, IV Lasix transition to oral 06/04 CABG preop planning 06/05- CABG planning 06/06 ongoing CABG planning per CTS, blood sugars noted to be elevated in 240s to 300s. Will start on basal insulin 7 units for now daily, continue meal correctional insulin. Patient on glipizide and metformin at home holding for now given CABG eval and and pending surgical date. Quality: Gen Med Crit Care VTE Prophylaxis VTE prophylaxis initiated: yes Current Medications Current medication review: I attest that the foregoing medication list in the medical record is true, accurate, and complete to the best of my knowledge. Advanced Care Plan 65 or Older Discussed with: patient Discussion included: living will, power of defense attorney, code status at 1406 RPT #:[id number] END OF REPORT [facility] 2023-06-07 11:20:00 [facility] Cardiothoracic Surgery Prog REPORT#:[id number] REPORT STATUS: Signed REPORT INITIALIZATION DATE:06/07/23 TIME: 112 PATIENT: MINDY CARTER UNIT #: [id number] ROOM/BED: [place] [address] : 54 AGE: 67 SEX: M ATTEND: Kimmie Bacon MD ADM AUTHOR: Nathaniel Martel MD REPT SERVICE DT/TIME: 06/07/23 1120 * ALL edits or amendments must be made on the electronic/computer document * Subjective Chief complaint: preop cabg Review of Systems Constitutional: Denies: chills, fatigue, fever. Skin: Denies: abrasion, bruising, contusion. Allergy/Immun: Denies: allergic reaction, anaphylaxis, hives. Respiratory: Denies: HERRING (dyspnea on exertion), SOB. Cardiovascular: Denies: chest pain, palpitations. Heme: Denies: adenopathy, bleeding, bruising. Endocrine: Denies: cold intolerance, heat intolerance, polydipsia. Neuro: Denies: confusion, dizziness, seizure, syncope. All systems rev neg: except as marked Objective General VS/I O Last Documented: Result Date Time Pulse Ox 96 06/06 926 O2 Delivery Nasal cannula 06/06 926 O2 Flow Rate 2 06/06 926 B/P 156/68 06/06 710 B/P Mean 0.0 06/06 710 Temp 36.5 06/06 710 Pulse 90 06/06 710 Resp 14 03/11 0711 FiO2 40 03/09 0925 24 hour I O ending at 0700: 06/06 0700 06/05 1900 Intake Total 420 932.00 Output Total 1000 1000 Balance -580 -68.00 Intake, IV 292.00 Intake, Oral 420 640 Output, Urine 1000 1000 Patient 111.2 kg Weight Weight Standing scale Measurement Method PATIENT WEIGHT: Weight (lb): 245 Weight (oz): 2.46 Weight (kg): 111.200 Dietitian Nutrition assessment The data set between the solid lines has been imported from the dietitian's assessment. BMI Calculated: 35.0 Nutrition related diagnosis: Nutrition diagnosis details: Nutrition problem: Nutrition etiology: Nutrition signs and symptoms: Nutrition prescription: Dietitian name: Assessment completed: Physical Exam General appearance: alert, awake, oriented HEENT: anicteric, mucosal membranes moist, pupils reactive to light Neck: full range of motion, non-tender Cardiovascular: normal heart sounds, regular rate rhythm Respiratory: aerating well, symmetric expansion Abdomen: soft, non-tender Genitourinary: no bladder distention, no flank pain Extremities: dry, moves all Musculoskeletal: full range of motion, painless range of motion Skin: dry, intact Psychiatry: normal affect, normal mood Current Medications Medications: Active Meds + DC'd Last 24 Hrs Docusate Sodium (COLACE) 100 MG DAILY PRN PRN PO Polyethylene Glycol (MIRALAX) 17 GM DAILY PRN PRN PO Lactulose (LACTULOSE) 10 GM DAILY PRN PRN PO Furosemide (LASIX) 40 MG DAILY PO Multivitamins (TAB-A-KANDI) 1 TAB DAILY PO Thiamine HCl (THIAMINE HCL) 100 MG DAILY PO Aspirin (ASPIRIN) 81 MG DAILY PO Carvedilol (COREG) 12.5 MG Q12HR PO Amlodipine Besylate (NORVASC) 10 MG BEDTIME PO Atorvastatin Calcium (LIPITOR) 40 MG 2100 PO Doxazosin Mesylate (CARDURA) 2 MG BEDTIME PO Insulin Human Lispro (HUMALOG) 0 AC HS SUBQ Acetaminophen (TYLENOL) 650 MG Q4H PRN PRN PO Dextrose/Water (DEXTROSE 10% IN WATER) 125 ML ASDIR PRN IV (CKD) Dextrose/Water (DEXTROSE 10% IN WATER) 250 ML ASDIR PRN IV (CKD) Glucagon (GLUCAGON) 1 MG ASDIR PRN IM Hydralazine HCl (APRESOLINE) 10 MG Q6H PRN PRN IV Ondansetron HCl (ZOFRAN) 4 MG Q4H PRN PRN IV Nitroglycerin (NITROSTAT) 0.4 MG Q5M PRN PRN SL Heparin Sodium (HEPARIN 5000 UNITS/ML) 9,000 UNIT ASDIR PRN PRN IV Heparin Sodium (HEPARIN 5000 UNITS/ML) 4,500 UNIT ASDIR PRN PRN IV Heparin Sodium (Porcine) (HEPARIN 25,000 UNITS/ 1/2NS 500ML) 500 ML ASDIR IV (CKD) Results Findings/Data: Laboratory Tests 06/06 1605 1147 Chemistry Sodium (134 - 147 mEq/L) 134 Potassium (3.4 - 5.0 mEq/L) 3.8 Chloride (100 - 108 mEq/L) 102 Carbon Dioxide (21 - 33 mEq/l) 23 Anion Gap (0 - 20) 13 BUN (7 - 25 mg/dL) 17 Creatinine (0.6 - 1.3 mg/dL) 0.9 Glomerular Filtr Rate (80 - 90) 93.0 H Glucose (77 - 141 mg/dL) 201 H POC Glucose (70 - 110 MG/DL) 229 H 239 H 217 H 284 H Calcium (8.0 - 10.5 mg/dL) 8.3 Magnesium (1.6 - 2.6 mg/dL) 1.87 Laboratory Tests 06/07 235 Coagulation PTT ([place]) (25.0 - 39.5 Seconds) 57.6 H Laboratory Tests 06/07 235 Hematology WBC (4.5 - 11.0 x10 3/uL) 8.0 RBC (4.00 - 5.60 x10 6/uL) 3.88 L Hgb (12.5 - 16.9 g/dL) 11.7 L Hct (37.5 - 50.7 %) 35.4 L MCV (81.0 - 99.0 fL) 91.2 MCH (27.0 - 33.0 pg) 30.2 MCHC (33.0 - 37.0 g/dL) 33.1 RDW (11.5 - 14.5 %) 13.1 Plt Count (150 - 400 x10 3/uL) 135 L MPV (7.0 - 9.0 fL) 12.4 H Neut % (Auto) (56.0 - 77.0 %) 74.9 Lymph % (Auto) (14.0 - 32.0 %) 8.7 L [place] % (Auto) (4.8 - 9.0 %) 10.9 H Eos % (Auto) (0.3 - 3.7 %) 3.6 Baso % (Auto) (0.0 - 2.0 %) 0.8 Neut # (Auto) (2.0 - 7.6 x10 3/uL) 5.96 Lymph # (Auto) (1.0 - 3.8 x10 3/uL) 0.69 L [place] # (Auto) (0.1 - 0.8 x10 3/uL) 0.87 H Eos # (Auto) (0.0 - 0.2 x10 3/uL) 0.29 H Baso # (Auto) (0.0 - 0.2 x10 3/uL) 0.06 Abs Immat Gran (auto) (0.00 - 0.03 x10 3/uL) 0.09 H Immature Gran % (0.0 - 2.0 %) 1.1 Nucleated RBC % (0 - 0 %) 0.0 Nucleated RBCs # (Man) (0.0 - 0.1 x10 3/uL) 0.00 Results: labs reviewed, vital signs stablefranklin personally rev'd, current med profile rev'd Quality: Trauma Gen Surg Advanced Care Plan 65 or Older Discussed with: patient Discussion included: living will, power of defense attorney, code status Current Medications Current medication review: I attest that the foregoing medication list in the medical record is true, accurate, and complete to the best of my knowledge. VTE Prophylaxis - General VTE prophylaxis initiated: yes Diagnosis, Assessment Plan Hospital course to date: This is a 67-year-old gentleman with a past medical history of hypertension, hyperlipidemia, diabetes, neuropathy, alcohol use, liver cirrhosis, kidney disease, syncope who came to the hospital with shortness of breath and chest tightness for 2 days. Patient describes significant orthopnea and increasing edema in bilateral lower extremities that brought the patient to the hospital. Initial workup positive for mildly elevated troponin and elevated BNP and was diagnosed with NSTEMI and CHF exacerbation with acute hypoxic respiratory failure. Patient then underwent cardiac catheterization for elevated troponin. CV surgery was consulted for multivessel coronary artery disease found on angiogram. 1. multivessel disease -Patient underwent cardiac angiogram: Left main-proximal to mid 60 to 70% stenosis LAD-ostial LAD 90% stenosis Left circumflex-patent RCA-mild 30 to 40% mid stenosis EF 55 to 60% Wall motion is normal, grade 1 diastolic dysfunction, normal systolic function. Mitral valve: Moderately calcified with leaflet thickening. Moderate stenosis. Mild regurgitation. Aortic valve: Thickening and sclerosis 2. Liver disease -Patient recently diagnosed. Patient does not live local to [place]. Will consult gastroenterology to see patient. -EtOH cessation 3. Chronic kidney disease -Patient does not live local to [place]. Will consult nephrology to see patient. Patient will be presented at complex cardiology conference on Wednesday. Further recommendations to follow. 06/04/23 Patient in stable condition Labs and imaging reviewed Case presented at complex cardiology conference this morning and the team deemed patient will be best be suited with CABG. Preop workup ongoing Timing of surgery pending Plan of care discussed with patient and family. All questions were answered. 06/05/23 Patient doing well, denies chest pain Labs reviewed Pre op workup ongoing, pending vein mapping and carotid duplex On 4l nasal cannula, wean off oxygen as tolerated Incentive spirometer teaching Cardiac diet OOB to chair, ambulate Plan of care discussed with patient, all questions were answered. 06/06/23 Patient in stable condition Denies chest pain Wean off oxygen Encourage I-S use and deep breathing Tentatively plan for CABG in the upcoming week Plan of care discussed with patient, all questions were answered. 06/07/23 Patient seen and examined, denies chest pain Labs reviewed I-S use encourage, wean off oxygen as tolerated, on 2 L nasal cannula Tolerating diet Out of bed in chair, PT OT Timing of surgery pending Plan of care discussed with the patient, all questions were answered Consultants: cardiology, cardiovascular surgery at 0955 RPT #:[id number] END OF REPORT [facility] 2023-06-07 10:19:00 [facility] ([facility]) Gastroenterology Progress Note REPORT#:[id number] REPORT STATUS: Signed REPORT INITIALIZATION DATE:06/07/23 TIME: 1019 PATIENT: MINDY CARTER UNIT #: [id number] ROOM/BED: [place] [address] : 54 AGE: 67 SEX: M ATTEND: Denise Montejo MD ADM AUTHOR: Farideh Harris REPT SERVICE DT/TIME: 06/07/23 1019 * ALL edits or amendments must be made on the electronic/computer document * Farideh Harris 06/07/23 1019: Subjective Patient reports: Yes: bowel movement, passing gas. No: abdominal pain, black stools, nausea, rectal bleeding, vomiting. Review of Systems Constitutional: Denies: chills, fever. Respiratory: Denies: SOB. Cardiovascular: Denies: chest pain. Neuro: Denies: headache. Objective General VS/I O: Last Documented: Result Date Time Pulse Ox 96 06/06 1653 B/P 132/69 06/06 1653 B/P Mean 90 06/06 1653 Temp 36.7 06/06 1653 Pulse 85 06/06 1653 Resp 17 06/06 1653 O2 Delivery Nasal cannula 06/06 926 O2 Flow Rate 2 06/06 09 FiO2 40 06/04 0925 24 hour I O ending at 0700: 06/06 0700 06/05 1900 Intake Total 420 932.00 Output Total 1000 1000 Balance -580 -68.00 Intake, IV 292.00 Intake, Oral 420 640 Output, Urine 1000 1000 Patient 111.2 kg Weight Weight Standing scale Measurement Method PATIENT WEIGHT: Weight (lb): 245 Weight (oz): 2.46 Weight (kg): 111.200 Medications: Active Meds + DC'd Last 24 Hrs Insulin Glargine (Semglee) 7 UNIT DAILY SUBQ Docusate Sodium (COLACE) 100 MG DAILY PRN PRN PO Polyethylene Glycol (MIRALAX) 17 GM DAILY PRN PRN PO Lactulose (LACTULOSE) 10 GM DAILY PRN PRN PO Furosemide (LASIX) 40 MG DAILY PO Multivitamins (TAB-A-KANDI) 1 TAB DAILY PO Thiamine HCl (THIAMINE HCL) 100 MG DAILY PO Aspirin (ASPIRIN) 81 MG DAILY PO Carvedilol (COREG) 12.5 MG Q12HR PO Amlodipine Besylate (NORVASC) 10 MG BEDTIME PO Atorvastatin Calcium (LIPITOR) 40 MG 2100 PO Doxazosin Mesylate (CARDURA) 2 MG BEDTIME PO Insulin Human Lispro (HUMALOG) 0 AC HS SUBQ Acetaminophen (TYLENOL) 650 MG Q4H PRN PRN PO Dextrose/Water (DEXTROSE 10% IN WATER) 125 ML ASDIR PRN IV (CKD) Dextrose/Water (DEXTROSE 10% IN WATER) 250 ML ASDIR PRN IV (CKD) Glucagon (GLUCAGON) 1 MG ASDIR PRN IM Hydralazine HCl (APRESOLINE) 10 MG Q6H PRN PRN IV Ondansetron HCl (ZOFRAN) 4 MG Q4H PRN PRN IV Nitroglycerin (NITROSTAT) 0.4 MG Q5M PRN PRN SL Heparin Sodium (HEPARIN 5000 UNITS/ML) 9,000 UNIT ASDIR PRN PRN IV Heparin Sodium (HEPARIN 5000 UNITS/ML) 4,500 UNIT ASDIR PRN PRN IV Heparin Sodium (Porcine) (HEPARIN 25,000 UNITS/ 1/2NS 500ML) 500 ML ASDIR IV (CKD) Dietitian nutrition assessment The data set between the solid lines has been imported from the dietitian's assessment. BMI Calculated: 36.2 Nutrition related diagnosis: Nutrition diagnosis details: Nutrition problem: Nutrition etiology: Nutrition signs and symptoms: Nutrition prescription: Dietitian name: Assessment completed: Physical Exam General appearance: alert, awake, oriented HEENT: atraumatic, normocephalic Neck: full range of motion Cardiovascular: normal S1/S2, regular rate rhythm Respiratory: symmetric expansion, no distress Abdomen: non-tender, normal bowel sounds, soft, no distention, no guarding Extremities: moves all Musculoskeletal: normal inspection Neuro/BUSINESS AREA MANAGER: alert, oriented X 3, normal speech Skin: dry, intact, normal color Psychiatry: normal affect, normal judgment/insight, normal mood Results Findings/Data: Laboratory Tests 06/07/23235: [Embedded Image Not Available] Laboratory Tests 06/06 06/06 06/06 06/06 06/05 1639 1139 [id number] Chemistry Sodium (134 - 147 mEq/L) 134 Potassium (3.4 - 5.0 mEq/L) 3.8 Chloride (100 - 108 mEq/L) 102 Carbon Dioxide (21 - 33 mEq/l) 23 Anion Gap (0 - 20) 13 BUN (7 - 25 mg/dL) 17 Creatinine (0.6 - 1.3 mg/dL) 0.9 Glomerular Filtr Rate (80 - 90) 93.0 H Glucose (77 - 141 mg/dL) 201 H POC Glucose (70 - 110 MG/DL) 280 H 248 H 229 H 239 H Calcium (8.0 - 10.5 mg/dL) 8.3 Magnesium (1.6 - 2.6 mg/dL) 1.87 Laboratory Tests 06/07 235 Coagulation PTT (Rashida) (25.0 - 39.5 Seconds) 57.6 H Laboratory Tests 06/07 235 Hematology WBC (4.5 - 11.0 x10 3/uL) 8.0 RBC (4.00 - 5.60 x10 6/uL) 3.88 L Hgb (12.5 - 16.9 g/dL) 11.7 L Hct (37.5 - 50.7 %) 35.4 L MCV (81.0 - 99.0 fL) 91.2 MCH (27.0 - 33.0 pg) 30.2 MCHC (33.0 - 37.0 g/dL) 33.1 RDW (11.5 - 14.5 %) 13.1 Plt Count (150 - 400 x10 3/uL) 135 L MPV (7.0 - 9.0 fL) 12.4 H Neut % (Auto) (56.0 - 77.0 %) 74.9 Lymph % (Auto) (14.0 - 32.0 %) 8.7 L [place] % (Auto) (4.8 - 9.0 %) 10.9 H Eos % (Auto) (0.3 - 3.7 %) 3.6 Baso % (Auto) (0.0 - 2.0 %) 0.8 Neut # (Auto) (2.0 - 7.6 x10 3/uL) 5.96 Lymph # (Auto) (1.0 - 3.8 x10 3/uL) 0.69 L [place] # (Auto) (0.1 - 0.8 x10 3/uL) 0.87 H Eos # (Auto) (0.0 - 0.2 x10 3/uL) 0.29 H Baso # (Auto) (0.0 - 0.2 x10 3/uL) 0.06 Abs Immat Gran (auto) (0.00 - 0.03 x10 3/uL) 0.09 H Immature Gran % (0.0 - 2.0 %) 1.1 Nucleated RBC % (0 - 0 %) 0.0 Nucleated RBCs # (Man) (0.0 - 0.1 x10 3/uL) 0.00 Results: labs reviewed, vital signs reviewed Diagnosis, Assessment Plan Problem List/A P: 1. Cirrhosis 2. Hepatitis C 3. Elevated LFTs 4. Alcohol dependence 5. CHF exacerbation Free Text A P: (06/03/2023) MELD score of 7 given estimated 3-month mortality of 1.9% No acute complaints. Recommendations: 1. Periodically monitor LFTs 2. INR 1.1 3. Abdominal ultrasound revealed cirrhosis with splenomegaly, cholelithiasis, and nonspecific gallbladder wall thickening likely secondary to chronic liver disease as patient does not express abdominal pain at this time 4. History of hepatitis C, PCR - not detected 5. Daily alcohol use, monitor for withdrawal symptoms, MVI and thiamine; encouraged cessation 6. Further recommendations may follow Consultants: cardiology, cardiovascular surgery Rigoberto Jarrell 06/07/23 2005: Attestations Physician Attestation Agree w/findings plan: Agree with the findings and plan as documented by RAHUL Tobias. at 1759 at 2005 RPT #:[id number] END OF REPORT [facility] 2023-06-07 09:16:00 [facility] ([facility] Cardiology Progress Note REPORT#:[id number] REPORT STATUS: Signed REPORT INITIALIZATION DATE:06/07/23 TIME: 915 PATIENT: MINDY CARTER UNIT #: [id number] ROOM/BED: [place] [address] : 54 AGE: 67 SEX: M ATTEND: Denise Montejo MD ADM AUTHOR: Clayton Nathan MD REPT SERVICE DT/TIME: 06/07/23 0916 * ALL edits or amendments must be made on the electronic/computer document * Subjective Free Text Subj Notes Free Text Subj Notes: Cardiology progress note Date of service: 06/07/2023 Chief complaint/reason for consult: NSTEMI Patient seen and examined, chart reviewed, questions/concerns addressed with RN. Current medication and vitals reviewed. HPI and interval Hx: Coronary angiogram showed severe left main/LAD stenosis, CTS consulted pending CABG later this week Subjective: No chest pain today Objective: Vital Signs Date Temp Pulse Resp B/P B/P Mean Pulse Ox FiO2 06/05-06/06 97.7-98.2 81-94 14-40 119-156/68-83 0.0-111 89-97 GEN: Alert and cooperative, no acute distress. HEENT: NC/AT, EOMI CARD: RRR, normal S1/S2 LUNGS: CTA w/o added sounds, GBAE. EXT: No obvious deformities. No edema. Peripheral pulses intact NEURO: AOx4, CN II-XII grossly intact. SKIN: Warm and dry, no rashes/lesions. PSYCH: AOx4. Appropriate mood and affect Assessment, Impression and medical decision making: -NSTEMI -Acute on chronic diastolic congestive heart -Morbid obesity -Hypertension, hyperlipidemia, type 2 diabetes mellitus Plan/recommendation: -Coronary angiogram showed left main/LAD stenosis -Plan for CABG later this week -Resume heparin drip, continue with aspirin statin and beta-blockers at 1815 RPT #:[id number] END OF REPORT [facility] 2023-06-06 13:14:00 [facility] Cardiothoracic Surgery Prog REPORT#:[id number] REPORT STATUS: Signed REPORT INITIALIZATION DATE:06/06/23 TIME: 131 PATIENT: MINDY CARTER UNIT #: [id number] ROOM/BED: [place] [id number] : 54 AGE: 67 SEX: M ATTEND: Kimmie Bacon MD ADM AUTHOR: Nathaniel Martel MD REPT SERVICE DT/TIME: 06/06/23 1314 * ALL edits or amendments must be made on the electronic/computer document * Subjective Chief complaint: preop cabg Review of Systems Constitutional: Denies: chills, fatigue, fever. Skin: Denies: abrasion, bruising, contusion. Allergy/Immun: Denies: allergic reaction, anaphylaxis, hives. Respiratory: Denies: HERRING (dyspnea on exertion), SOB. Cardiovascular: Denies: chest pain, palpitations. Heme: Denies: adenopathy, bleeding, bruising. Endocrine: Denies: cold intolerance, heat intolerance, polydipsia. Neuro: Denies: confusion, dizziness, seizure, syncope. All systems rev neg: except as marked Objective General VS/I O Last Documented: Result Date Time Pulse Ox 95 06/05 115 B/P 130/74 06/05 1151 B/P Mean 0.0 06/05 115 O2 Delivery Nasal cannula 06/05 115 Temp 36.5 06/05 1151 Pulse 87 06/05 1151 Resp 20 06/05 115 O2 Flow Rate 4 06/05 1000 FiO2 40 06/04 0925 24 hour I O ending at 0700: 06/05 0700 06/04 1900 Intake Total 350 1092.80 Output Total 600 1200 Balance -250 -107.20 Intake, IV 292.80 Intake, Oral 350 800 Number 2 Bowel Movements Number Voids 3 Output, Urine 600 1200 Patient 110.5 kg Weight Weight Standing scale Measurement Method PATIENT WEIGHT: Weight (lb): 243 Weight (oz): 9.77 Weight (kg): 110.500 Dietitian Nutrition assessment The data set between the solid lines has been imported from the dietitian's assessment. BMI Calculated: 35.0 Nutrition related diagnosis: Nutrition diagnosis details: Nutrition problem: Nutrition etiology: Nutrition signs and symptoms: Nutrition prescription: Dietitian name: Assessment completed: Physical Exam General appearance: alert, awake, oriented HEENT: anicteric, mucosal membranes moist, pupils reactive to light Neck: full range of motion, non-tender Cardiovascular: normal heart sounds, regular rate rhythm Respiratory: aerating well, symmetric expansion Abdomen: soft, non-tender Genitourinary: no bladder distention, no flank pain Extremities: dry, moves all Musculoskeletal: full range of motion, painless range of motion Skin: dry, intact Psychiatry: normal affect, normal mood Current Medications Medications: Active Meds + DC'd Last 24 Hrs Docusate Sodium (COLACE) 100 MG DAILY PRN PRN PO Polyethylene Glycol (MIRALAX) 17 GM DAILY PRN PRN PO Lactulose (LACTULOSE) 10 GM DAILY PRN PRN PO Furosemide (LASIX) 40 MG DAILY PO Multivitamins (TAB-A-KANDI) 1 TAB DAILY PO Thiamine HCl (THIAMINE HCL) 100 MG DAILY PO Aspirin (ASPIRIN) 81 MG DAILY PO Carvedilol (COREG) 12.5 MG Q12HR PO Amlodipine Besylate (NORVASC) 10 MG BEDTIME PO Atorvastatin Calcium (LIPITOR) 40 MG 2100 PO Doxazosin Mesylate (CARDURA) 2 MG BEDTIME PO Insulin Human Lispro (HUMALOG) 0 AC HS SUBQ Acetaminophen (TYLENOL) 650 MG Q4H PRN PRN PO Dextrose/Water (DEXTROSE 10% IN WATER) 125 ML ASDIR PRN IV (CKD) Dextrose/Water (DEXTROSE 10% IN WATER) 250 ML ASDIR PRN IV (CKD) Glucagon (GLUCAGON) 1 MG ASDIR PRN IM Hydralazine HCl (APRESOLINE) 10 MG Q6H PRN PRN IV Hydrocodone Bitart/Acetaminophen (NORCO 5/325) 1 TAB Q4H PRN PRN PO (DC) Morphine Sulfate (morphine SULFATE) 4 MG Q4H PRN PRN IV (DC) Ondansetron HCl (ZOFRAN) 4 MG Q4H PRN PRN IV Nitroglycerin (NITROSTAT) 0.4 MG Q5M PRN PRN SL Heparin Sodium (HEPARIN 5000 UNITS/ML) 9,000 UNIT ASDIR PRN PRN IV Heparin Sodium (HEPARIN 5000 UNITS/ML) 4,500 UNIT ASDIR PRN PRN IV Heparin Sodium (Porcine) (HEPARIN 25,000 UNITS/ 1/2NS 500ML) 500 ML ASDIR IV (CKD) Sodium Chloride (SODIUM CHLORIDE 0.9%) 1,000 ML Q24H IV (DC) Results Findings/Data: Laboratory Tests 06/05 06/05 06/05 06/04 06/04 1147 3491 403 2015 161 Chemistry Sodium (134 - 147 mEq/L) 134 Potassium (3.4 - 5.0 mEq/L) 3.9 Chloride (100 - 108 mEq/L) 102 Carbon Dioxide (21 - 33 mEq/l) 24 Anion Gap (0 - 20) 12 BUN (7 - 25 mg/dL) 18 Creatinine (0.6 - 1.3 mg/dL) 0.9 Glomerular Filtr Rate (80 - 90) 93.0 H Glucose (77 - 141 mg/dL) 172 H POC Glucose (70 - 110 MG/DL) 284 H 182 H 242 H 218 H Calcium (8.0 - 10.5 mg/dL) 8.3 Magnesium (1.6 - 2.6 mg/dL) 1.86 Laboratory Tests 06/05 06/04 06/04 0404 2117 1427 Coagulation PTT (Rashida) (25.0 - 39.5 Seconds) 61.6 H 58.7 H 70.9 H Laboratory Tests 06/05 0404 Hematology WBC (4.5 - 11.0 x10 3/uL) 7.7 RBC (4.00 - 5.60 x10 6/uL) 3.97 L Hgb (12.5 - 16.9 g/dL) 11.9 L Hct (37.5 - 50.7 %) 35.9 L MCV (81.0 - 99.0 fL) 90.4 MCH (27.0 - 33.0 pg) 30.0 MCHC (33.0 - 37.0 g/dL) 33.1 RDW (11.5 - 14.5 %) 13.2 Plt Count (150 - 400 x10 3/uL) 152 MPV (7.0 - 9.0 fL) 11.8 H Neut % (Auto) (56.0 - 77.0 %) 75.7 Lymph % (Auto) (14.0 - 32.0 %) 7.6 L [place] % (Auto) (4.8 - 9.0 %) 11.0 H Eos % (Auto) (0.3 - 3.7 %) 4.0 H Baso % (Auto) (0.0 - 2.0 %) 0.8 Neut # (Auto) (2.0 - 7.6 x10 3/uL) 5.86 Lymph # (Auto) (1.0 - 3.8 x10 3/uL) 0.59 L [place] # (Auto) (0.1 - 0.8 x10 3/uL) 0.85 H Eos # (Auto) (0.0 - 0.2 x10 3/uL) 0.31 H Baso # (Auto) (0.0 - 0.2 x10 3/uL) 0.06 Abs Immat Gran (auto) (0.00 - 0.03 x10 3/uL) 0.07 H Immature Gran % (0.0 - 2.0 %) 0.9 Nucleated RBC % (0 - 0 %) 0.0 Nucleated RBCs # (Man) (0.0 - 0.1 x10 3/uL) 0.00 Results: labs reviewed, vital signs stable, x-ray personally reviewed, current med profile rev'd Quality: Trauma Gen Surg Advanced Care Plan 65 or Older Discussed with: patient Discussion included: living will, power of defense attorney, code status Current Medications Current medication review: I attest that the foregoing medication list in the medical record is true, accurate, and complete to the best of my knowledge. VTE Prophylaxis - General VTE prophylaxis initiated: yes Diagnosis, Assessment Plan Hospital course to date: This is a 67-year-old gentleman with a past medical history of hypertension, hyperlipidemia, diabetes, neuropathy, alcohol use, liver cirrhosis, kidney disease, syncope who came to the hospital with shortness of breath and chest tightness for 2 days. Patient describes significant orthopnea and increasing edema in bilateral lower extremities that brought the patient to the hospital. Initial workup positive for mildly elevated troponin and elevated BNP and was diagnosed with NSTEMI and CHF exacerbation with acute hypoxic respiratory failure. Patient then underwent cardiac catheterization for elevated troponin. CV surgery was consulted for multivessel coronary artery disease found on angiogram. 1. multivessel disease -Patient underwent cardiac angiogram: Left main-proximal to mid 60 to 70% stenosis LAD-ostial LAD 90% stenosis Left circumflex-patent RCA-mild 30 to 40% mid stenosis EF 55 to 60% Wall motion is normal, grade 1 diastolic dysfunction, normal systolic function. Mitral valve: Moderately calcified with leaflet thickening. Moderate stenosis. Mild regurgitation. Aortic valve: Thickening and sclerosis 2. Liver disease -Patient recently diagnosed. Patient does not live local to [place]. Will consult gastroenterology to see patient. -EtOH cessation 3. Chronic kidney disease -Patient does not live local to [place]. Will consult nephrology to see patient. Patient will be presented at complex cardiology conference on Wednesday. Further recommendations to follow. 06/04/23 Patient in stable condition Labs and imaging reviewed Case presented at complex cardiology conference this morning and the team deemed patient will be best be suited with CABG. Preop workup ongoing Timing of surgery pending Plan of care discussed with patient and family. All questions were answered. 06/05/23 Patient doing well, denies chest pain Labs reviewed Pre op workup ongoing, pending vein mapping and carotid duplex On 4l nasal cannula, wean off oxygen as tolerated Incentive spirometer teaching Cardiac diet OOB to chair, ambulate Plan of care discussed with patient, all questions were answered. 06/06/23 Patient in stable condition Denies chest pain Wean off oxygen Encourage I-S use and deep breathing Tentatively plan for CABG in the upcoming week Plan of care discussed with patient, all questions were answered. Consultants: cardiology, cardiovascular surgery at 0955 RPT #:[id number] END OF REPORT [facility] 2023-06-06 12:46:00 [facility] ([facility]) Nephrology Progress Note REPORT#:[id number] REPORT STATUS: Signed REPORT INITIALIZATION DATE:06/06/23 TIME: 1246 PATIENT: MINDY CARTER UNIT #: [id number] ROOM/BED: [place] [address] : 54 AGE: 67 SEX: M ATTEND: Denise Montejo MD ADM AUTHOR: Nkechi Bacon MD REPT SERVICE DT/TIME: 06/06/23 1246 * ALL edits or amendments must be made on the electronic/computer document * Subjective Chief complaint: SOB, CP HPI: 67-year-old male known to have hypertension, diabetes mellitus, hyperlipidemia, liver cirrhosis, chronic kidney disease who presented with shortness of breath and chest tightness and on further workup was found to have multivessel disease therefore he was being worked up for possible CABG. He said he had been diagnosed recently with chronic kidney disease but did not have any nausea, orthopnea, cramping, change of taste, involuntary movements, urinary complaints. He denied any chronic use of NSAIDs. He said for most part his blood pressures were controlled at home. 06/05 Patient denying all systemic review. Objective General VS/I O: Vital Signs: Date Time Temp Pulse Resp B/P B/P Pulse O2 O2 Flow FiO2 Mean Ox Delivery Rate 06/07 2307 36.7 90 19 128/75 0.0 97 Room air 06/06 2300 85 25 95 06/06 2240 96 Nasal 2 cannula 06/06 2200 88 29 94 06/06 2100 91 30 93 06/06 2000 88 27 97 06/06 1907 36.2 86 18 140/80 0.0 96 Room air 06/06 1906 86 28 140/80 104 93 06/06 1800 95 29 93 06/06 1700 86 35 92 06/06 1653 36.7 85 17 132/69 90 96 06/06 1600 26 92 06/06 1500 90 28 91 06/06 1400 89 27 92 06/06 1300 92 27 95 06/06 1200 92 36 96 06/06 1141 36.7 90 16 123/67 0.0 94 06/06 1137 87 34 123/67 90 94 06/06 1100 86 35 95 06/06 1000 80 23 94 06/06 0927 96 Nasal 2 cannula 06/06 0900 91 38 96 06/06 0800 Nasal 2 cannula 06/06 0800 85 31 96 06/06 0711 36.5 90 14 156/68 0.0 95 06/06 0708 90 31 156/91 116 94 06/06 0500 87 28 132/77 99 93 06/06 0408 36.6 90 14 134/78 0.0 96 Nasal cannula 06/06 0400 90 29 137/80 103 93 06/06 0300 81 24 127/75 96 91 06/06 0200 86 28 129/79 98 89 24 hour I O ending at 0700: 06/07 0700 06/06 1900 Intake Total 702.80 Output Total 225 3190 Balance -225 -2487.20 Intake, IV 302.80 Intake, Oral 400 Number 1 Bowel Movements Number Voids 3 Output, Urine 225 3190 PATIENT WEIGHT: Weight (lb): 245 Weight (oz): 2.46 Weight (kg): 111.200 Physical Exam General appearance: alert, awake, oriented Head/eyes: atraumatic, EOMI ENT: moist mucous membranes, normal nose Neck: no JVD, no lymphadenopathy Cardiovascular: normal heart sounds, regular rate and rhythm Respiratory: aerating well, clear to auscultation Abdomen: non-tender, soft Genitourinary: no bladder distention, no flank pain Extremities: no edema, no gangrene, no swelling Diagnosis, Assessment Plan Free Text A P: 67-year-old male known to have hypertension, diabetes mellitus, hyperlipidemia, liver cirrhosis, chronic kidney disease who presented with shortness of breath and chest tightness and on further workup was found to have multivessel disease therefore he was being worked up for possible CABG. He said he had been diagnosed recently with chronic kidney disease but did not have any nausea, orthopnea, cramping, change of taste, involuntary movements, urinary complaints. He denied any chronic use of NSAIDs. He said for most part his blood pressures were controlled at home. Nephrology following for: 1. CKD:: Most recent creatinine was staying in normal range therefore plan is to keep mean arterial pressure above 65 and avoid nephrotoxic agents. 2. Hypertension: Mostly controlled therefore plan is to continue same. 3. Hypervolemia: Plan is to monitor input and output closely and treat with Lasix if needed. His echocardiogram showed an EF of 55 to 60%. 4. Chest pain/shortness of breath: He had been worked up with left heart cath and received contrast recently. Plan was to monitor closely for contrast- induced nephropathy and keep hydrated. 06/05 1. CKD:: Most recent creatinine was staying in normal range therefore plan is to keep mean arterial pressure above 65 and avoid nephrotoxic agents. 2. Hypertension: Mostly controlled therefore plan is to continue same. 3. Hypervolemia: Plan is to monitor input and output closely and treat with Lasix if needed. His echocardiogram showed an EF of 55 to 60%. 4. Chest pain/shortness of breath: He had been worked up with left heart cath and received contrast recently. Plan was to monitor closely for contrast- induced nephropathy and keep hydrated. Consultants: cardiology, cardiovascular surgery at 0106 RPT #:[id number] END OF REPORT [facility] 2023-06-06 11:47:00 [facility] ([facility] Hospitalist Progress Note REPORT#:[id number] REPORT STATUS: Signed REPORT INITIALIZATION DATE:06/06/23 TIME: 1146 PATIENT: MINDY CARTER UNIT #: [id number] ROOM/BED: [place] [address] : 54 AGE: 67 SEX: M ATTEND: Denise Montejo MD ADM AUTHOR: Denise Montejo MD REPT SERVICE DT/TIME: 06/06/23 1147 * ALL edits or amendments must be made on the electronic/computer document * Subjective Chief complaint: patient doing well, no acute concerns HPI: This is a 67-year-old male with history of high blood pressure, hyperlipidemia, diabetes mellitus, syncope, neuropathy, alcohol use, liver cirrhosis, stage II CKD presents with shortness of breath that has been increasing since 2 days ago. Patient took extra dose of Aldactone and hydrochlorothiazide which did not help. Patient also reports chest tightness and is currently on 5 L of oxygen per nasal cannula. Patient says that he cannot lie down he gets short of breath when he lies down. He drinks whiskey about 3 shots a day. He has been having increasing edema in bilateral lower extremities. No headaches or dizziness. No other complaints elicited. Review of Systems All systems rev neg: except as noted Objective General VS/I O: Vital Signs: Date Time Temp Pulse Resp B/P B/P Pulse O2 O2 Flow FiO2 Mean Ox Delivery Rate 06/05 1151 97.7 87 20 130/74 0.0 95 Nasal cannula 06/05 1000 Nasal 4 cannula 06/05 0734 98.2 85 20 126/75 0.0 96 Nasal cannula 06/05 0346 98.2 85 14 131/70 0.0 94 Nasal cannula 06/05 0007 98.1 85 14 129/75 0.0 93 Nasal cannula 06/04 2036 97 Nasal 4 cannula 06/04 1858 97.7 87 14 134/74 0.0 93 Room air 06/04 1813 Nasal 4 cannula 06/04 1800 87 34 97 06/04 1700 83 28 98 06/04 1619 98.1 81 21 108/65 79.0 98 06/04 1600 84 32 94 24 hour I O ending at 0700: 06/05 0700 06/04 1900 Intake Total 350 1092.80 Output Total 600 1200 Balance -250 -107.20 Intake, IV 292.80 Intake, Oral 350 800 Number 2 Bowel Movements Number Voids 3 Output, Urine 600 1200 Patient 110.5 kg Weight Weight Standing scale Measurement Method PATIENT WEIGHT: Weight (lb): 243 Weight (oz): 9.77 Weight (kg): 110.500 Medications: Active Meds + DC'd Last 24 Hrs Docusate Sodium (COLACE) 100 MG DAILY PRN PRN PO Polyethylene Glycol (MIRALAX) 17 GM DAILY PRN PRN PO Lactulose (LACTULOSE) 10 GM DAILY PRN PRN PO Furosemide (LASIX) 40 MG DAILY PO Multivitamins (TAB-A-KANDI) 1 TAB DAILY PO Thiamine HCl (THIAMINE HCL) 100 MG DAILY PO Aspirin (ASPIRIN) 81 MG DAILY PO Carvedilol (COREG) 12.5 MG Q12HR PO Amlodipine Besylate (NORVASC) 10 MG BEDTIME PO Atorvastatin Calcium (LIPITOR) 40 MG 2100 PO Doxazosin Mesylate (CARDURA) 2 MG BEDTIME PO Insulin Human Lispro (HUMALOG) 0 AC HS SUBQ Acetaminophen (TYLENOL) 650 MG Q4H PRN PRN PO Dextrose/Water (DEXTROSE 10% IN WATER) 125 ML ASDIR PRN IV (CKD) Dextrose/Water (DEXTROSE 10% IN WATER) 250 ML ASDIR PRN IV (CKD) Glucagon (GLUCAGON) 1 MG ASDIR PRN IM Hydralazine HCl (APRESOLINE) 10 MG Q6H PRN PRN IV Hydrocodone Bitart/Acetaminophen (NORCO 5/325) 1 TAB Q4H PRN PRN PO (DC) Morphine Sulfate (morphine SULFATE) 4 MG Q4H PRN PRN IV (DC) Ondansetron HCl (ZOFRAN) 4 MG Q4H PRN PRN IV Nitroglycerin (NITROSTAT) 0.4 MG Q5M PRN PRN SL Heparin Sodium (HEPARIN 5000 UNITS/ML) 9,000 UNIT ASDIR PRN PRN IV Heparin Sodium (HEPARIN 5000 UNITS/ML) 4,500 UNIT ASDIR PRN PRN IV Heparin Sodium (Porcine) (HEPARIN 25,000 UNITS/ 1/2NS 500ML) 500 ML ASDIR IV (CKD) Dietitian nutrition assessment The data set between the solid lines has been imported from the dietitian's assessment. BMI Calculated: 35.0 Nutrition related diagnosis: Nutrition diagnosis details: Nutrition problem: Nutrition etiology: Nutrition signs and symptoms: Nutrition prescription: Dietitian name: Assessment completed: Physical Exam General appearance: alert, awake, oriented Head/Eyes: atraumatic, clear cornea, EOMI, PERRLA Neck: normal thyroid, supple/no meningismus Cardiovascular: normal heart sounds, regular rate rhythm, no gallop, no murmur , no rub Respiratory: aerating well, clear to auscultation Abdomen: non-tender, normal bowel sounds, soft, no distention Extremities: edema, no clubbing, no cyanosis Neuro/BUSINESS AREA MANAGER: alert, oriented X 3, CNII-XII intact Skin: dry, intact, no rash Results Findings/Data: Laboratory Tests 06/05 06/05 06/05 06/04 06/04 1147 0727 403 2015 161 Chemistry Sodium (134 - 147 mEq/L) 134 Potassium (3.4 - 5.0 mEq/L) 3.9 Chloride (100 - 108 mEq/L) 102 Carbon Dioxide (21 - 33 mEq/l) 24 Anion Gap (0 - 20) 12 BUN (7 - 25 mg/dL) 18 Creatinine (0.6 - 1.3 mg/dL) 0.9 Glomerular Filtr Rate (80 - 90) 93.0 H Glucose (77 - 141 mg/dL) 172 H POC Glucose (70 - 110 MG/DL) 284 H 182 H 242 H 218 H Calcium (8.0 - 10.5 mg/dL) 8.3 Magnesium (1.6 - 2.6 mg/dL) 1.86 Laboratory Tests 06/05 06/04 040 2117 Coagulation PTT (Rashida) (25.0 - 39.5 Seconds) 61.6 H 58.7 H Laboratory Tests 06/054 Hematology WBC (4.5 - 11.0 x10 3/uL) 7.7 RBC (4.00 - 5.60 x10 6/uL) 3.97 L Hgb (12.5 - 16.9 g/dL) 11.9 L Hct (37.5 - 50.7 %) 35.9 L MCV (81.0 - 99.0 fL) 90.4 MCH (27.0 - 33.0 pg) 30.0 MCHC (33.0 - 37.0 g/dL) 33.1 RDW (11.5 - 14.5 %) 13.2 Plt Count (150 - 400 x10 3/uL) 152 MPV (7.0 - 9.0 fL) 11.8 H Neut % (Auto) (56.0 - 77.0 %) 75.7 Lymph % (Auto) (14.0 - 32.0 %) 7.6 L [place] % (Auto) (4.8 - 9.0 %) 11.0 H Eos % (Auto) (0.3 - 3.7 %) 4.0 H Baso % (Auto) (0.0 - 2.0 %) 0.8 Neut # (Auto) (2.0 - 7.6 x10 3/uL) 5.86 Lymph # (Auto) (1.0 - 3.8 x10 3/uL) 0.59 L [place] # (Auto) (0.1 - 0.8 x10 3/uL) 0.85 H Eos # (Auto) (0.0 - 0.2 x10 3/uL) 0.31 H Baso # (Auto) (0.0 - 0.2 x10 3/uL) 0.06 Abs Immat Gran (auto) (0.00 - 0.03 x10 3/uL) 0.07 H Immature Gran % (0.0 - 2.0 %) 0.9 Nucleated RBC % (0 - 0 %) 0.0 Nucleated RBCs # (Man) (0.0 - 0.1 x10 3/uL) 0.00 Diagnosis, Assessment Plan Problem List/A P: 1. CHF exacerbation Orders: Procedure Date/time Status OXYGEN PER HOUR 06/05 0054 Complete Consultants: cardiology, cardiovascular surgery Free Text DxA P Notes Free text DxA P notes: Shortness of breath Differential diagnosis includes CHF Placed on Lasix 40 mg IV every 8 hours Cardiology consulted Echo ordered Chest tightness Possibly secondary to fluid overload Cardiology consulted Echo pending Elevated troponin Consulted cardiology On Lovenox Diabetes mellitus A1c 8.4% Sliding scale insulin as needed Hypertension Renew medications once they have been updated in the computer Check labs in the a.m. Patient does not have a living will or medical power of defense attorney Patient is a full code 06/01 multivessel disease on cath, CTS consulted, patient undergoing preop evaluation for possible CABG. 06/02- pt continues cabg eval, conf Fri, nephro/GI consulted per cts, renal indices wnls today, Abd us confirmed cirrhosis with splenomegaly. 06/03 patient continues preop evaluation for CABG, IV Lasix transition to oral 06/04 CABG preop planning 06/05- CABG planning Quality: Gen Med Crit Care VTE Prophylaxis VTE prophylaxis initiated: yes Current Medications Current medication review: I attest that the foregoing medication list in the medical record is true, accurate, and complete to the best of my knowledge. Advanced Care Plan 65 or Older Discussed with: patient Discussion included: living will, power of defense attorney, code status at 1517 RPT #:[id number] END OF REPORT [facility] 2023-06-05 14:51:00 [facility] ([facility]) Nephrology Progress Note REPORT#:[id number] REPORT STATUS: Signed REPORT INITIALIZATION DATE:06/05/23 TIME: 1450 PATIENT: MINDY CARTER UNIT #: [id number] ROOM/BED: [place] [address] : 54 AGE: 67 SEX: M ATTEND: Denise Montejo MD ADM AUTHOR: Nkechi Bacon MD REPT SERVICE DT/TIME: 06/05/23 1451 * ALL edits or amendments must be made on the electronic/computer document * Subjective Chief complaint: SOB, CP HPI: 67-year-old male known to have hypertension, diabetes mellitus, hyperlipidemia, liver cirrhosis, chronic kidney disease who presented with shortness of breath and chest tightness and on further workup was found to have multivessel disease therefore he was being worked up for possible CABG. He said he had been diagnosed recently with chronic kidney disease but did not have any nausea, orthopnea, cramping, change of taste, involuntary movements, urinary complaints. He denied any chronic use of NSAIDs. He said for most part his blood pressures were controlled at home. 06/04 Patient denying all systemic review. Objective General VS/I O: Vital Signs: Date Time Temp Pulse Resp B/P B/P Pulse O2 O2 Flow FiO2 Mean Ox Delivery Rate 06/05 2035 97 Nasal 4 cannula 06/04 1858 36.5 87 14 134/74 0.0 93 Room air 06/04 1813 Nasal 4 cannula 06/04 1800 87 34 97 06/04 1700 83 28 98 06/04 1619 36.7 81 21 108/65 79.0 98 06/04 1600 84 32 94 06/04 1500 84 29 98 06/04 1400 85 28 97 06/04 1300 87 94 06/04 1200 87 37 98 06/04 1134 36.7 87 16 135/84 100.9 97 03/09 1100 85 31 95 06/04 1005 84 32 124/74 94 96 06/04 1000 Nasal 4 cannula 06/04 0925 96 Nasal 5 40 cannula 06/04 0425 36.5 82 20 125/76 92.2 98 Room air 24 hour I O ending at 0700: 06/05 0700 06/04 1900 Intake Total 1092.80 Output Total 1200 Balance -107.20 Intake, IV 292.80 Intake, Oral 800 Number Voids 3 Output, Urine 1200 PATIENT WEIGHT: Weight (lb): 240 Weight (oz): 5.92 Weight (kg): 109.030 Physical Exam General appearance: alert, awake, oriented Head/eyes: atraumatic, EOMI ENT: moist mucous membranes, normal nose Neck: no JVD, no lymphadenopathy Cardiovascular: normal heart sounds, regular rate and rhythm Respiratory: aerating well, clear to auscultation Abdomen: non-tender, soft Genitourinary: no bladder distention, no flank pain Extremities: no edema, no gangrene, no swelling Diagnosis, Assessment Plan Free Text A P: 67-year-old male known to have hypertension, diabetes mellitus, hyperlipidemia, liver cirrhosis, chronic kidney disease who presented with shortness of breath and chest tightness and on further workup was found to have multivessel disease therefore he was being worked up for possible CABG. He said he had been diagnosed recently with chronic kidney disease but did not have any nausea, orthopnea, cramping, change of taste, involuntary movements, urinary complaints. He denied any chronic use of NSAIDs. He said for most part his blood pressures were controlled at home. Nephrology following for: 1. CKD:: Most recent creatinine was staying in normal range therefore plan is to keep mean arterial pressure above 65 and avoid nephrotoxic agents. 2. Hypertension: Mostly controlled therefore plan is to continue same. 3. Hypervolemia: Plan is to monitor input and output closely and treat with Lasix if needed. His echocardiogram showed an EF of 55 to 60%. 4. Chest pain/shortness of breath: He had been worked up with left heart cath and received contrast recently. Plan was to monitor closely for contrast- induced nephropathy and keep hydrated. 06/04 1. CKD:: Most recent creatinine was staying in normal range therefore plan is to keep mean arterial pressure above 65 and avoid nephrotoxic agents. 2. Hypertension: Mostly controlled therefore plan is to continue same. 3. Hypervolemia: Plan is to monitor input and output closely and treat with Lasix if needed. His echocardiogram showed an EF of 55 to 60%. 4. Chest pain/shortness of breath: He had been worked up with left heart cath and received contrast recently. Plan was to monitor closely for contrast- induced nephropathy and keep hydrated. Consultants: cardiology, cardiovascular surgery at 0005 RPT #:[id number] END OF REPORT [facility] 2023-06-05 13:19:00 [facility] ([facility] Hospitalist Progress Note REPORT#:[id number] REPORT STATUS: Signed REPORT INITIALIZATION DATE:06/05/23 TIME: 1318 PATIENT: MINDY CARTER UNIT #: [id number] ROOM/BED: [place] [address] : 54 AGE: 67 SEX: M ATTEND: Denise Montejo MD ADM AUTHOR: Denise Montejo MD REPT SERVICE DT/TIME: 06/05/23 1319 * ALL edits or amendments must be made on the electronic/computer document * Subjective Chief complaint: No acute change HPI: This is a 67-year-old male with history of high blood pressure, hyperlipidemia, diabetes mellitus, syncope, neuropathy, alcohol use, liver cirrhosis, stage II CKD presents with shortness of breath that has been increasing since 2 days ago. Patient took extra dose of Aldactone and hydrochlorothiazide which did not help. Patient also reports chest tightness and is currently on 5 L of oxygen per nasal cannula. Patient says that he cannot lie down he gets short of breath when he lies down. He drinks whiskey about 3 shots a day. He has been having increasing edema in bilateral lower extremities. No headaches or dizziness. No other complaints elicited. Review of Systems All systems rev neg: except as noted Objective General VS/I O: Vital Signs: Date Time Temp Pulse Resp B/P B/P Pulse O2 O2 Flow FiO2 Mean Ox Delivery Rate 06/04 1134 98.1 87 16 135/84 100.9 97 06/04 1000 Nasal 4 cannula 06/04 924 96 Nasal 5 40 cannula 06/04 0425 97.7 82 20 125/76 92.2 98 Room air 06/03 2339 98.1 81 22 121/74 90.0 97 Room air 06/03 2204 Nasal 5 cannula 06/03 2124 96 Nasal 5 cannula 06/03 1845 98.1 86 20 133/80 97.8 98 Nasal cannula 06/03 1645 90 52 93 06/03 1618 97.5 101 12 121/71 87.9 96 Nasal cannula 06/03 1603 Nasal 5 cannula 06/03 1600 86 36 97 06/03 1500 88 26 98 06/03 1400 93 38 96 24 hour I O ending at 0700: 06/04 0700 06/03 1900 Intake Total 400 Output Total 1200 800 Balance -800 -800 Intake, Oral 400 Number Voids 8 Output, Urine 1200 800 Patient 109.03 kg Weight PATIENT WEIGHT: Weight (lb): 240 Weight (oz): 5.92 Weight (kg): 109.030 Medications: Active Meds + DC'd Last 24 Hrs Polyethylene Glycol (MIRALAX) 17 GM DAILY PRN PRN PO Lactulose (LACTULOSE) 10 GM DAILY PRN PRN PO Furosemide (LASIX) 40 MG DAILY PO Multivitamins (TAB-A-KANDI) 1 TAB DAILY PO Thiamine HCl (THIAMINE HCL) 100 MG DAILY PO Aspirin (ASPIRIN) 81 MG DAILY PO Carvedilol (COREG) 12.5 MG Q12HR PO Amlodipine Besylate (NORVASC) 10 MG BEDTIME PO Atorvastatin Calcium (LIPITOR) 40 MG 2100 PO Doxazosin Mesylate (CARDURA) 2 MG BEDTIME PO Insulin Human Lispro (HUMALOG) 0 AC HS SUBQ Acetaminophen (TYLENOL) 650 MG Q4H PRN PRN PO Dextrose/Water (DEXTROSE 10% IN WATER) 125 ML ASDIR PRN IV (CKD) Dextrose/Water (DEXTROSE 10% IN WATER) 250 ML ASDIR PRN IV (CKD) Glucagon (GLUCAGON) 1 MG ASDIR PRN IM Hydralazine HCl (APRESOLINE) 10 MG Q6H PRN PRN IV Hydrocodone Bitart/Acetaminophen (NORCO 5/325) 1 TAB Q4H PRN PRN PO Morphine Sulfate (morphine SULFATE) 4 MG Q4H PRN PRN IV Ondansetron HCl (ZOFRAN) 4 MG Q4H PRN PRN IV Nitroglycerin (NITROSTAT) 0.4 MG Q5M PRN PRN SL Heparin Sodium (HEPARIN 5000 UNITS/ML) 9,000 UNIT ASDIR PRN PRN IV Heparin Sodium (HEPARIN 5000 UNITS/ML) 4,500 UNIT ASDIR PRN PRN IV Heparin Sodium (Porcine) (HEPARIN 25,000 UNITS/ 1/2NS 500ML) 500 ML ASDIR IV (CKD) Sodium Chloride (SODIUM CHLORIDE 0.9%) 1,000 ML Q24H IV Dietitian nutrition assessment The data set between the solid lines has been imported from the dietitian's assessment. BMI Calculated: 35.0 Nutrition related diagnosis: Nutrition diagnosis details: Nutrition problem: Nutrition etiology: Nutrition signs and symptoms: Nutrition prescription: Dietitian name: Assessment completed: Physical Exam General appearance: alert, awake, oriented Head/Eyes: atraumatic, clear cornea, EOMI, PERRLA Neck: normal thyroid, supple/no meningismus Cardiovascular: normal heart sounds, regular rate rhythm, no gallop, no murmur , no rub Respiratory: aerating well, clear to auscultation Abdomen: non-tender, normal bowel sounds, soft, no distention Extremities: edema, no clubbing, no cyanosis Neuro/BUSINESS AREA MANAGER: alert, oriented X 3, CNII-XII intact Skin: dry, intact, no rash Results Findings/Data: Laboratory Tests 06/04 06/04 06/04 06/03 1129 0441 0440 1907 Chemistry Sodium (134 - 147 mEq/L) 135 Potassium (3.4 - 5.0 mEq/L) 3.7 Chloride (100 - 108 mEq/L) 102 Carbon Dioxide (21 - 33 mEq/l) 25 Anion Gap (0 - 20) 12 BUN (7 - 25 mg/dL) 17 Creatinine (0.6 - 1.3 mg/dL) 0.8 Glomerular Filtr Rate (80 - 90) 96.4 H Glucose (77 - 141 mg/dL) 186 H POC Glucose (70 - 110 MG/DL) 240 H 284 H Calcium (8.0 - 10.5 mg/dL) 8.6 Total Bilirubin (0.0 - 1.0 mg/dL) 0.80 AST (8 - 34 IUnit/L) 42 H ALT (10 - 49 IUnit/L) 44 Total Alk Phosphatase (20 - 125 IUnit/L) 149 H B-Natriuretic Peptide (0 - 100 PG/ML) 311.0 H Total Protein (6.4 - 8.2 g/dL) 6.8 Albumin (3.4 - 5.0 g/dL) 3.20 L Triglycerides (40 - 150 mg/dL) 112 Cholesterol (<200 mg/dL) 124 LDL Cholesterol Measurd (0 - 100 mg/dL) 72.0 HDL Cholesterol (40 - 60 MG/DL) 39.3 L Cholesterol/HDL Ratio (3.43 - 4.97 RATIO) 3.16 L 06/03 1615 Chemistry POC Glucose (70 - 110 MG/DL) 236 H Laboratory Tests 06/04 0440 Coagulation INR (0.8 - 1.2) 1.2 PTT ([place]) (25.0 - 39.5 Seconds) 76.7 H PT Patient/Control Mix (9.3 - 12.9 SECONDS) 12.8 Laboratory Tests 06/04 0441 Hematology WBC (4.5 - 11.0 x10 3/uL) 7.8 RBC (4.00 - 5.60 x10 6/uL) 4.04 Hgb (12.5 - 16.9 g/dL) 12.1 L Hct (37.5 - 50.7 %) 36.6 L MCV (81.0 - 99.0 fL) 90.6 MCH (27.0 - 33.0 pg) 30.0 MCHC (33.0 - 37.0 g/dL) 33.1 RDW (11.5 - 14.5 %) 13.0 Plt Count (150 - 400 x10 3/uL) 152 MPV (7.0 - 9.0 fL) 11.5 H Neut % (Auto) (56.0 - 77.0 %) 76.4 Lymph % (Auto) (14.0 - 32.0 %) 7.8 L [place] % (Auto) (4.8 - 9.0 %) 10.5 H Eos % (Auto) (0.3 - 3.7 %) 3.6 Baso % (Auto) (0.0 - 2.0 %) 0.9 Neut # (Auto) (2.0 - 7.6 x10 3/uL) 5.98 Lymph # (Auto) (1.0 - 3.8 x10 3/uL) 0.61 L [place] # (Auto) (0.1 - 0.8 x10 3/uL) 0.82 H Eos # (Auto) (0.0 - 0.2 x10 3/uL) 0.28 H Baso # (Auto) (0.0 - 0.2 x10 3/uL) 0.07 Abs Immat Gran (auto) (0.00 - 0.03 x10 3/uL) 0.06 H Immature Gran % (0.0 - 2.0 %) 0.8 Nucleated RBC % (0 - 0 %) 0.0 Nucleated RBCs # (Man) (0.0 - 0.1 x10 3/uL) 0.00 Laboratory Tests 06/04 0441 Urines Urine Color (YEL/STRAW) BAILEY H Urine Appearance (CLEAR) CLEAR Urine pH (5.0 - 7.0) 5.0 Ur Specific [place] (1.005 - 1.030) 1.014 Urine Protein (NEGATIVE) 1+ H Urine Glucose (UA) (NEGATIVE) NEGATIVE Urine Ketones (NEGATIVE) NEGATIVE Urine Blood (NEGATIVE) NEGATIVE Urine Nitrite (NEGATIVE) NEGATIVE Urine Bilirubin (NEGATIVE) NEGATIVE Urine Urobilinogen (0.2 - 1.0 mg/dL) 4.0 H Ur Leukocyte Esterase (NEGATIVE) NEGATIVE Urine RBC (0 - 3 RBC/HPF) 0-3 Urine WBC (0 - 3 WBC/HPF) 0-3 Ur Squamous Epith Cells (NONE SEEN /HPF) 0-5 Urine Bacteria (NONE SEEN /HPF) NONE SEEN Urine Mucus (NONE SEEN /LPF) TRACE Radiology data: Recent Impressions: CAT SCAN - CT CHEST W/O CONTRAST 06/03 1638 Report Impression - Status: SIGNED Entered: 06/04/2023 8625 IMPRESSION: 1. Patchy areas of groundglass attenuation bilaterally suggest pneumonitis, possibly viral. 2. Left lower lobe nodularity is present, follow-up noncontrast chest CT in 3-6 months recommended. Additional recommendations above. Impression By: [email or web address] - Vadim Coelho M.D. RADIOLOGY - XR CHEST 1 V 06/03 1816 Report Impression - Status: SIGNED Entered: 06/04/2023 1877 IMPRESSION: Mild left basilar atelectasis Impression By: [email or web address] - Erick Hogan M.D. Diagnosis, Assessment Plan Problem List/A P: 1. CHF exacerbation Orders: Procedure Date/time Status THROMBOPLASTIN TIME PARTIAL 06/04 1400 Active OXYGEN PER HOUR 06/04 1204 Complete OXYGEN PER HOUR 06/04 0052 Complete Consultants: cardiology, cardiovascular surgery Code status: full code Free Text DxA P Notes Free text DxA P notes: Shortness of breath Differential diagnosis includes CHF Placed on Lasix 40 mg IV every 8 hours Cardiology consulted Echo ordered Chest tightness Possibly secondary to fluid overload Cardiology consulted Echo pending Elevated troponin Consulted cardiology On Lovenox Diabetes mellitus A1c 8.4% Sliding scale insulin as needed Hypertension Renew medications once they have been updated in the computer Check labs in the a.m. Patient does not have a living will or medical power of defense attorney Patient is a full code 06/01 multivessel disease on cath, CTS consulted, patient undergoing preop evaluation for possible CABG. 06/02- pt continues cabg eval, conf Fri, nephro/GI consulted per cts, renal indices wnls today, Abd us confirmed cirrhosis with splenomegaly. 06/03 patient continues preop evaluation for CABG, IV Lasix transition to oral 06/04 CABG preop planning Quality: Gen Med Crit Care VTE Prophylaxis VTE prophylaxis initiated: yes Current Medications Current medication review: I attest that the foregoing medication list in the medical record is true, accurate, and complete to the best of my knowledge. Advanced Care Plan 65 or Older Discussed with: patient Discussion included: living will, power of defense attorney, code status at 1321 RPT #:[id number] END OF REPORT [facility] 2023-06-05 13:15:00 [facility] ([facility]) Cardiothoracic Surgery Prog REPORT#:[id number] REPORT STATUS: Signed REPORT INITIALIZATION DATE:06/05/23 TIME: 1314 PATIENT: MINDY CARTER UNIT #: [id number] ROOM/BED: [place] [address] : 54 AGE: 67 SEX: M ATTEND: Kimmie Bacon MD ADM AUTHOR: Nathaniel Martel MD REPT SERVICE DT/TIME: 06/05/23 1315 * ALL edits or amendments must be made on the electronic/computer document * Subjective Chief complaint: preop cabg Review of Systems Constitutional: Denies: chills, fatigue, fever. Skin: Denies: abrasion, bruising, contusion. Allergy/Immun: Denies: allergic reaction, anaphylaxis, hives. Respiratory: Denies: HERRING (dyspnea on exertion), SOB. Cardiovascular: Denies: chest pain, palpitations. Heme: Denies: adenopathy, bleeding, bruising. Endocrine: Denies: cold intolerance, heat intolerance, polydipsia. Neuro: Denies: confusion, dizziness, seizure, syncope. All systems rev neg: except as marked Objective General VS/I O Last Documented: Result Date Time Pulse Ox 97 06/04 1134 B/P 135/84 06/04 1134 B/P Mean 100.9 06/04 1134 Temp 36.7 06/04 1134 Pulse 87 06/04 1134 Resp 16 06/04 1134 O2 Delivery Nasal cannula 06/04 1000 O2 Flow Rate 4 06/04 1000 FiO2 40 06/04 0925 24 hour I O ending at 0700: 06/04 0700 06/03 1900 Intake Total 400 Output Total 1200 800 Balance -800 -800 Intake, Oral 400 Number Voids 8 Output, Urine 1200 800 Patient 109.03 kg Weight PATIENT WEIGHT: Weight (lb): 240 Weight (oz): 5.92 Weight (kg): 109.030 Dietitian Nutrition assessment The data set between the solid lines has been imported from the dietitian's assessment. BMI Calculated: 35.0 Nutrition related diagnosis: Nutrition diagnosis details: Nutrition problem: Nutrition etiology: Nutrition signs and symptoms: Nutrition prescription: Dietitian name: Assessment completed: Physical Exam General appearance: alert, awake, oriented HEENT: anicteric, mucosal membranes moist, pupils reactive to light Neck: full range of motion, non-tender Cardiovascular: normal heart sounds, regular rate rhythm Respiratory: aerating well, symmetric expansion Abdomen: soft, non-tender Genitourinary: no bladder distention, no flank pain Extremities: dry, moves all Musculoskeletal: full range of motion, painless range of motion Skin: dry, intact Psychiatry: normal affect, normal mood Current Medications Medications: Active Meds + DC'd Last 24 Hrs Polyethylene Glycol (MIRALAX) 17 GM DAILY PRN PRN PO Lactulose (LACTULOSE) 10 GM DAILY PRN PRN PO Furosemide (LASIX) 40 MG DAILY PO Multivitamins (TAB-A-KANDI) 1 TAB DAILY PO Thiamine HCl (THIAMINE HCL) 100 MG DAILY PO Aspirin (ASPIRIN) 81 MG DAILY PO Carvedilol (COREG) 12.5 MG Q12HR PO Amlodipine Besylate (NORVASC) 10 MG BEDTIME PO Atorvastatin Calcium (LIPITOR) 40 MG 2100 PO Doxazosin Mesylate (CARDURA) 2 MG BEDTIME PO Insulin Human Lispro (HUMALOG) 0 AC HS SUBQ Acetaminophen (TYLENOL) 650 MG Q4H PRN PRN PO Dextrose/Water (DEXTROSE 10% IN WATER) 125 ML ASDIR PRN IV (CKD) Dextrose/Water (DEXTROSE 10% IN WATER) 250 ML ASDIR PRN IV (CKD) Glucagon (GLUCAGON) 1 MG ASDIR PRN IM Hydralazine HCl (APRESOLINE) 10 MG Q6H PRN PRN IV Hydrocodone Bitart/Acetaminophen (NORCO 5/325) 1 TAB Q4H PRN PRN PO Morphine Sulfate (morphine SULFATE) 4 MG Q4H PRN PRN IV Ondansetron HCl (ZOFRAN) 4 MG Q4H PRN PRN IV Nitroglycerin (NITROSTAT) 0.4 MG Q5M PRN PRN SL Heparin Sodium (HEPARIN 5000 UNITS/ML) 9,000 UNIT ASDIR PRN PRN IV Heparin Sodium (HEPARIN 5000 UNITS/ML) 4,500 UNIT ASDIR PRN PRN IV Heparin Sodium (Porcine) (HEPARIN 25,000 UNITS/ 1/2NS 500ML) 500 ML ASDIR IV (CKD) Sodium Chloride (SODIUM CHLORIDE 0.9%) 1,000 ML Q24H IV Results Findings/Data: Laboratory Tests 06/04 06/04 06/04 06/03 06/03 1129 0441 0440 1907 1615 Chemistry Sodium (134 - 147 mEq/L) 135 Potassium (3.4 - 5.0 mEq/L) 3.7 Chloride (100 - 108 mEq/L) 102 Carbon Dioxide (21 - 33 mEq/l) 25 Anion Gap (0 - 20) 12 BUN (7 - 25 mg/dL) 17 Creatinine (0.6 - 1.3 mg/dL) 0.8 Glomerular Filtr Rate (80 - 90) 96.4 H Glucose (77 - 141 mg/dL) 186 H POC Glucose (70 - 110 MG/DL) 240 H 284 H 236 H Calcium (8.0 - 10.5 mg/dL) 8.6 Total Bilirubin (0.0 - 1.0 mg/dL) 0.80 AST (8 - 34 IUnit/L) 42 H ALT (10 - 49 IUnit/L) 44 Total Alk Phosphatase (20 - 125 IUnit/L) 149 H B-Natriuretic Peptide (0 - 100 PG/ML) 311.0 H Total Protein (6.4 - 8.2 g/dL) 6.8 Albumin (3.4 - 5.0 g/dL) 3.20 L Triglycerides (40 - 150 mg/dL) 112 Cholesterol (<200 mg/dL) 124 LDL Cholesterol Me[place]urd (0 - 100 mg/dL) 72.0 HDL Cholesterol (40 - 60 MG/DL) 39.3 L Cholesterol/HDL Ratio (3.43 - 4.97 3.16 L RATIO) Laboratory Tests 06/04 0440 Coagulation INR (0.8 - 1.2) 1.2 PTT ([place]) (25.0 - 39.5 Seconds) 76.7 H PT Patient/Control Mix (9.3 - 12.9 SECONDS) 12.8 Laboratory Tests 06/04 0441 Hematology WBC (4.5 - 11.0 x10 3/uL) 7.8 RBC (4.00 - 5.60 x10 6/uL) 4.04 Hgb (12.5 - 16.9 g/dL) 12.1 L Hct (37.5 - 50.7 %) 36.6 L MCV (81.0 - 99.0 fL) 90.6 MCH (27.0 - 33.0 pg) 30.0 MCHC (33.0 - 37.0 g/dL) 33.1 RDW (11.5 - 14.5 %) 13.0 Plt Count (150 - 400 x10 3/uL) 152 MPV (7.0 - 9.0 fL) 11.5 H Neut % (Auto) (56.0 - 77.0 %) 76.4 Lymph % (Auto) (14.0 - 32.0 %) 7.8 L [place] % (Auto) (4.8 - 9.0 %) 10.5 H Eos % (Auto) (0.3 - 3.7 %) 3.6 Baso % (Auto) (0.0 - 2.0 %) 0.9 Neut # (Auto) (2.0 - 7.6 x10 3/uL) 5.98 Lymph # (Auto) (1.0 - 3.8 x10 3/uL) 0.61 L [place] # (Auto) (0.1 - 0.8 x10 3/uL) 0.82 H Eos # (Auto) (0.0 - 0.2 x10 3/uL) 0.28 H Baso # (Auto) (0.0 - 0.2 x10 3/uL) 0.07 Abs Immat Gran (auto) (0.00 - 0.03 x10 3/uL) 0.06 H Immature Gran % (0.0 - 2.0 %) 0.8 Nucleated RBC % (0 - 0 %) 0.0 Nucleated RBCs # (Man) (0.0 - 0.1 x10 3/uL) 0.00 Laboratory Tests 06/04 0441 Urines Urine Color (YEL/STRAW) BAILEY H Urine Appearance (CLEAR) CLEAR Urine pH (5.0 - 7.0) 5.0 Ur Specific [place] (1.005 - 1.030) 1.014 Urine Protein (NEGATIVE) 1+ H Urine Glucose (UA) (NEGATIVE) NEGATIVE Urine Ketones (NEGATIVE) NEGATIVE Urine Blood (NEGATIVE) NEGATIVE Urine Nitrite (NEGATIVE) NEGATIVE Urine Bilirubin (NEGATIVE) NEGATIVE Urine Urobilinogen (0.2 - 1.0 mg/dL) 4.0 H Ur Leukocyte Esterase (NEGATIVE) NEGATIVE Urine RBC (0 - 3 RBC/HPF) 0-3 Urine WBC (0 - 3 WBC/HPF) 0-3 Ur Squamous Epith Cells (NONE SEEN /HPF) 0-5 Urine Bacteria (NONE SEEN /HPF) NONE SEEN Urine Mucus (NONE SEEN /LPF) TRACE Radiology data: Recent Impressions: CAT SCAN - CT CHEST W/O CONTRAST 06/03 1638 Report Impression - Status: SIGNED Entered: 06/04/2023 2152 IMPRESSION: 1. Patchy areas of groundglass attenuation bilaterally suggest pneumonitis, possibly viral. 2. Left lower lobe nodularity is present, follow-up noncontrast chest CT in 3-6 months recommended. Additional recommendations above. Impression By: [email or web address] - Vadim Coelho M.D. RADIOLOGY - XR CHEST 1 V 06/03 1756 Report Impression - Status: SIGNED Entered: 06/04/2023 2252 IMPRESSION: Mild left basilar atelectasis Impression By: [email or web address] - Erick Hogan M.D. Results: labs reviewed, vital signs stable, rythm personally rev'd, current med profile rev'd Quality: Trauma Gen Surg Advanced Care Plan 65 or Older Discussed with: patient Discussion included: living will, power of defense attorney, code status Current Medications Current medication review: I attest that the foregoing medication list in the medical record is true, accurate, and complete to the best of my knowledge. VTE Prophylaxis - General VTE prophylaxis initiated: yes Diagnosis, Assessment Plan Hospital course to date: This is a 67-year-old gentleman with a past medical history of hypertension, hyperlipidemia, diabetes, neuropathy, alcohol use, liver cirrhosis, kidney disease, syncope who came to the hospital with shortness of breath and chest tightness for 2 days. Patient describes significant orthopnea and increasing edema in bilateral lower extremities that brought the patient to the hospital. Initial workup positive for mildly elevated troponin and elevated BNP and was diagnosed with NSTEMI and CHF exacerbation with acute hypoxic respiratory failure. Patient then underwent cardiac catheterization for elevated troponin. CV surgery was consulted for multivessel coronary artery disease found on angiogram. 1. multivessel disease -Patient underwent cardiac angiogram: Left main-proximal to mid 60 to 70% stenosis LAD-ostial LAD 90% stenosis Left circumflex-patent RCA-mild 30 to 40% mid stenosis EF 55 to 60% Wall motion is normal, grade 1 diastolic dysfunction, normal systolic function. Mitral valve: Moderately calcified with leaflet thickening. Moderate stenosis. Mild regurgitation. Aortic valve: Thickening and sclerosis 2. Liver disease -Patient recently diagnosed. Patient does not live local to [place]. Will consult gastroenterology to see patient. -EtOH cessation 3. Chronic kidney disease -Patient does not live local to [place]. Will consult nephrology to see patient. Patient will be presented at complex cardiology conference on Wednesday. Further recommendations to follow. 06/04/23 Patient in stable condition Labs and imaging reviewed Case presented at complex cardiology conference this morning and the team deemed patient will be best be suited with CABG. Preop workup ongoing Timing of surgery pending Plan of care discussed with patient and family. All questions were answered. 06/05/23 Patient doing well, denies chest pain Labs reviewed Pre op workup ongoing, pending vein mapping and carotid duplex On 4l nasal cannula, wean off oxygen as tolerated Incentive spirometer teaching Cardiac diet OOB to chair, ambulate Plan of care discussed with patient, all questions were answered. at 0941 RPT #:[id number] END OF REPORT [facility] 2023-06-04 23:05:00 [facility] ([facility]) Nephrology Progress Note REPORT#:[id number] REPORT STATUS: Signed REPORT INITIALIZATION DATE:06/04/23 TIME: 2304 PATIENT: MINDY CARTER UNIT #: [id number] ROOM/BED: [address] : [birth year] AGE: 67 SEX: M ATTEND: Denies Montejo MD ADM AUTHOR: Nkechi Bacon MD REPT SERVICE DT/TIME: 06/04/232304 * ALL edits or amendments must be made on the electronic/computer document * Subjective Chief complaint: SOB, CP HPI: 67-year-old male known to have hypertension, diabetes mellitus, hyperlipidemia, liver cirrhosis, chronic kidney disease who presented with shortness of breath and chest tightness and on further workup was found to have multivessel disease therefore he was being worked up for possible CABG. He said he had been diagnosed recently with chronic kidney disease but did not have any nausea, orthopnea, cramping, change of taste, involuntary movements, urinary complaints. He denied any chronic use of NSAIDs. He said for most part his blood pressures were controlled at home. 06/03 Patient denying all systemic review. Objective General VS/I O: Vital Signs: Date Time Temp Pulse Resp B/P B/P Pulse O2 O2 Flow FiO2 Mean Ox Delivery Rate 06/03 2204 Nasal 5 cannula 06/03 2124 96 Nasal 5 cannula /08 1845 36.7 86 20 133/80 97.8 98 Nasal cannula /08 1645 90 52 93 03/08 1618 36.4 101 12 121/71 87.9 96 Nasal cannula /08 1603 Nasal 5 cannula /08 1600 86 36 97 03/08 1500 88 26 98 03/08 1400 93 38 96 03/08 1300 88 26 96 03/08 1200 88 28 98 03/08 1153 36.4 86 12 118/74 88.7 93 Nasal cannula 03/08 1100 81 34 95 03/08 1000 85 37 96 03/08 0900 89 36 99 03/08 0800 86 37 98 03/08 0719 36.7 87 14 135/83 100.6 99 Room air 03/08 0700 87 33 97 03/08 0352 36.5 85 15 124/77 92.7 97 Nasal cannula 03/08 0024 95 Nasal 5 cannula 03/07 2327 36.4 84 22 125/77 92.9 97 Nasal cannula 24 hour I O ending at 0700: 03/08 0700 03/07 1900 Intake Total Output Total 1300 800 Balance -1300 -800 Number Voids 2 Output, Urine 1300 800 PATIENT WEIGHT: Weight (lb): 237 Weight (oz): 3.48 Weight (kg): 107.600 Physical Exam General appearance: alert, awake, oriented Head/eyes: atraumatic, EOMI ENT: moist mucous membranes, normal nose Neck: no JVD, no lymphadenopathy Cardiovascular: normal heart sounds, regular rate and rhythm Respiratory: aerating well, clear to auscultation Abdomen: non-tender, soft Genitourinary: no bladder distention, no flank pain Extremities: no edema, no gangrene, no swelling Diagnosis, Assessment Plan Free Text A P: 67-year-old male known to have hypertension, diabetes mellitus, hyperlipidemia, liver cirrhosis, chronic kidney disease who presented with shortness of breath and chest tightness and on further workup was found to have multivessel disease therefore he was being worked up for possible CABG. He said he had been diagnosed recently with chronic kidney disease but did not have any nausea, orthopnea, cramping, change of taste, involuntary movements, urinary complaints. He denied any chronic use of NSAIDs. He said for most part his blood pressures were controlled at home. Nephrology following for: 1. CKD:: Most recent creatinine was staying in normal range therefore plan is to keep mean arterial pressure above 65 and avoid nephrotoxic agents. 2. Hypertension: Mostly controlled therefore plan is to continue same. 3. Hypervolemia: Plan is to monitor input and output closely and treat with Lasix if needed. His echocardiogram showed an EF of 55 to 60%. 4. Chest pain/shortness of breath: He had been worked up with left heart cath and received contrast recently. Plan was to monitor closely for contrast- induced nephropathy and keep hydrated. 06/03 1. CKD:: Most recent creatinine was staying in normal range therefore plan is to keep mean arterial pressure above 65 and avoid nephrotoxic agents. 2. Hypertension: Mostly controlled therefore plan is to continue same. 3. Hypervolemia: Plan is to monitor input and output closely and treat with Lasix if needed. His echocardiogram showed an EF of 55 to 60%. 4. Chest pain/shortness of breath: He had been worked up with left heart cath and received contrast recently. Plan was to monitor closely for contrast- induced nephropathy and keep hydrated. at 2308 RPT #:[id number] END OF REPORT [facility] 2023-06-04 15:34:[address] [facility]) Cardiothoracic Surgery Prog REPORT#:[id number] REPORT STATUS: Signed REPORT INITIALIZATION DATE:06/04/23 TIME: 1534 PATIENT: MINDY CARTER UNIT #: [id number] ROOM/BED: [place] [address] : 54 AGE: 67 SEX: M ATTEND: Kimmie Bacon MD ADM AUTHOR: Nathaniel Martel MD REPT SERVICE DT/TIME: 06/04/23 4350 * ALL edits or amendments must be made on the electronic/computer document * Subjective Chief complaint: Chest tightness and shortness of breath for past 2 days Review of Systems Constitutional: Denies: chills, fatigue, fever. Skin: Denies: abrasion, bruising, contusion. Allergy/Immun: Denies: allergic reaction, anaphylaxis, hives. Respiratory: Denies: HERRING (dyspnea on exertion), SOB. Cardiovascular: Denies: chest pain, palpitations. Heme: Denies: adenopathy, bleeding, bruising. Endocrine: Denies: cold intolerance, heat intolerance, polydipsia. Neuro: Denies: confusion, dizziness, seizure, syncope. All systems rev neg: except as marked Objective General VS/I O Last Documented: Result Date Time Pulse Ox 93 06/03 1153 B/P 118/74 06/03 1153 B/P Mean 88.7 06/03 1153 O2 Delivery Nasal cannula 06/03 1153 Temp 36.4 06/03 1153 Pulse 86 06/03 1153 Resp 12 06/03 1153 O2 Flow Rate 5 06/03 0024 24 hour I O ending at 0700: 06/03 0700 06/02 1900 Intake Total Output Total 1300 800 Balance -1300 -800 Number Voids 2 Output, Urine 1300 800 PATIENT WEIGHT: Weight (lb): 237 Weight (oz): 3.48 Weight (kg): 107.600 Dietitian Nutrition assessment The data set between the solid lines has been imported from the dietitian's assessment. BMI Calculated: 35.0 Nutrition related diagnosis: Nutrition diagnosis details: Nutrition problem: Nutrition etiology: Nutrition signs and symptoms: Nutrition prescription: Dietitian name: Assessment completed: Physical Exam General appearance: alert, awake, oriented HEENT: anicteric, mucosal membranes moist, pupils reactive to light Neck: full range of motion, non-tender Cardiovascular: normal heart sounds, regular rate rhythm Respiratory: aerating well, symmetric expansion Abdomen: soft, non-tender Genitourinary: no bladder distention, no flank pain Extremities: dry, moves all Musculoskeletal: full range of motion, painless range of motion Skin: dry, intact Current Medications Medications: Active Meds + DC'd Last 24 Hrs Lactulose (LACTULOSE) 10 GM DAILY PRN PRN PO Furosemide (LASIX) 40 MG DAILY PO Multivitamins (TAB-A-KANDI) 1 TAB DAILY PO Thiamine HCl (THIAMINE HCL) 100 MG DAILY PO Aspirin (ASPIRIN) 81 MG DAILY PO Carvedilol (COREG) 12.5 MG Q12HR PO Amlodipine Besylate (NORVASC) 10 MG BEDTIME PO Atorvastatin Calcium (LIPITOR) 40 MG 2100 PO Doxazosin Mesylate (CARDURA) 2 MG BEDTIME PO Insulin Human Lispro (HUMALOG) 0 AC HS SUBQ Acetaminophen (TYLENOL) 650 MG Q4H PRN PRN PO Dextrose/Water (DEXTROSE 10% IN WATER) 125 ML ASDIR PRN IV (CKD) Dextrose/Water (DEXTROSE 10% IN WATER) 250 ML ASDIR PRN IV (CKD) Glucagon (GLUCAGON) 1 MG ASDIR PRN IM Hydralazine HCl (APRESOLINE) 10 MG Q6H PRN PRN IV Hydrocodone Bitart/Acetaminophen (NORCO 5/325) 1 TAB Q4H PRN PRN PO Morphine Sulfate (morphine SULFATE) 4 MG Q4H PRN PRN IV Ondansetron HCl (ZOFRAN) 4 MG Q4H PRN PRN IV Nitroglycerin (NITROSTAT) 0.4 MG Q5M PRN PRN SL Heparin Sodium (HEPARIN 5000 UNITS/ML) 9,000 UNIT ASDIR PRN PRN IV Heparin Sodium (HEPARIN 5000 UNITS/ML) 4,500 UNIT ASDIR PRN PRN IV Heparin Sodium (Porcine) (HEPARIN 25,000 UNITS/ 1/2NS 500ML) 500 ML ASDIR IV (CKD) Sodium Chloride (SODIUM CHLORIDE 0.9%) 1,000 ML Q24H IV Results Findings/Data: Laboratory Tests 06/03 06/03 06/03 06/02 06/02 1151 0717 0310 1841 1635 Chemistry Sodium (134 - 147 mEq/L) 137 Potassium (3.4 - 5.0 mEq/L) 3.7 Chloride (100 - 108 mEq/L) 104 Carbon Dioxide (21 - 33 mEq/l) 25 Anion Gap (0 - 20) 11 BUN (7 - 25 mg/dL) 20 Creatinine (0.6 - 1.3 mg/dL) 0.9 Glomerular Filtr Rate (80 - 90) 93.0 H Glucose (77 - 141 mg/dL) 159 H POC Glucose (70 - 110 MG/DL) 301 H 188 H 272 H 239 H Calcium (8.0 - 10.5 mg/dL) 8.5 Magnesium (1.6 - 2.6 mg/dL) 1.82 Total Bilirubin (0.0 - 1.0 mg/dL) 0.70 AST (8 - 34 IUnit/L) 49 H ALT (10 - 49 IUnit/L) 42 Total Alk Phosphatase (20 - 125 IUnit/L) 144 H Total Protein (6.4 - 8.2 g/dL) 6.6 Albumin (3.4 - 5.0 g/dL) 3.00 L Laboratory Tests 06/03 0944 Coagulation PTT ([place]) (25.0 - 39.5 Seconds) 74.9 H Laboratory Tests 06/03 0310 Hematology WBC (4.5 - 11.0 x10 3/uL) 6.8 RBC (4.00 - 5.60 x10 6/uL) 4.06 Hgb (12.5 - 16.9 g/dL) 12.1 L Hct (37.5 - 50.7 %) 37.6 MCV (81.0 - 99.0 fL) 92.6 MCH (27.0 - 33.0 pg) 29.8 MCHC (33.0 - 37.0 g/dL) 32.2 L RDW (11.5 - 14.5 %) 13.0 Plt Count (150 - 400 x10 3/uL) 151 MPV (7.0 - 9.0 fL) 11.9 H Neut % (Auto) (56.0 - 77.0 %) 73.4 Lymph % (Auto) (14.0 - 32.0 %) 9.7 L [place] % (Auto) (4.8 - 9.0 %) 11.2 H Eos % (Auto) (0.3 - 3.7 %) 4.4 H Baso % (Auto) (0.0 - 2.0 %) 0.7 Neut # (Auto) (2.0 - 7.6 x10 3/uL) 4.98 Lymph # (Auto) (1.0 - 3.8 x10 3/uL) 0.66 L [place] # (Auto) (0.1 - 0.8 x10 3/uL) 0.76 Eos # (Auto) (0.0 - 0.2 x10 3/uL) 0.30 H Baso # (Auto) (0.0 - 0.2 x10 3/uL) 0.05 Abs Immat Gran (auto) (0.00 - 0.03 x10 3/uL) 0.04 H Immature Gran % (0.0 - 2.0 %) 0.6 Nucleated RBC % (0 - 0 %) 0.0 Nucleated RBCs # (Man) (0.0 - 0.1 x10 3/uL) 0.00 Results: labs reviewed, vital signs stable, rythm personally rev'd, x-ray personally reviewed, current med profile rev'd Quality: Trauma Gen Surg Advanced Care Plan 65 or Older Discussed with: patient Discussion included: living will, power of defense attorney, code status Current Medications Current medication review: I attest that the foregoing medication list in the medical record is true, accurate, and complete to the best of my knowledge. VTE Prophylaxis - General VTE prophylaxis initiated: yes Diagnosis, Assessment Plan Hospital course to date: This is a 67-year-old gentleman with a past medical history of hypertension, hyperlipidemia, diabetes, neuropathy, alcohol use, liver cirrhosis, kidney disease, syncope who came to the hospital with shortness of breath and chest tightness for 2 days. Patient describes significant orthopnea and increasing edema in bilateral lower extremities that brought the patient to the hospital. Initial workup positive for mildly elevated troponin and elevated BNP and was diagnosed with NSTEMI and CHF exacerbation with acute hypoxic respiratory failure. Patient then underwent cardiac catheterization for elevated troponin. CV surgery was consulted for multivessel coronary artery disease found on angiogram. 1. multivessel disease -Patient underwent cardiac angiogram: Left main-proximal to mid 60 to 70% stenosis LAD-ostial LAD 90% stenosis Left circumflex-patent RCA-mild 30 to 40% mid stenosis EF 55 to 60% Wall motion is normal, grade 1 diastolic dysfunction, normal systolic function. Mitral valve: Moderately calcified with leaflet thickening. Moderate stenosis. Mild regurgitation. Aortic valve: Thickening and sclerosis 2. Liver disease -Patient recently diagnosed. Patient does not live local to [place]. Will consult gastroenterology to see patient. -EtOH cessation 3. Chronic kidney disease -Patient does not live local to [place]. Will consult nephrology to see patient. Patient will be presented at complex cardiology conference on Wednesday. Further recommendations to follow. 06/04/23 Patient in stable condition Labs and imaging reviewed Case presented at complex cardiology conference this morning and the team deemed patient will be best be suited with CABG. Preop workup ongoing Timing of surgery pending Plan of care discussed with patient and family. All questions were answered. at 0940 RPT #:[id number] END OF REPORT [facility] 2023-06-04 13:58:00 [facility] Nephrology Progress Note REPORT#:[id number] REPORT STATUS: Signed REPORT INITIALIZATION DATE:06/04/23 TIME: 135 PATIENT: MINDY CARTER UNIT #: [id number] ROOM/BED: [place] [address] : 54 AGE: 67 SEX: M ATTEND: Denise Montejo MD ADM AUTHOR: Nkechi Bacon MD REPT SERVICE DT/TIME: 06/03/23 1358 * ALL edits or amendments must be made on the electronic/computer document * Subjective HPI: 67-year-old male known to have hypertension, diabetes mellitus, hyperlipidemia, liver cirrhosis, chronic kidney disease who presented with shortness of breath and chest tightness and on further workup was found to have multivessel disease therefore he was being worked up for possible CABG. He said he had been diagnosed recently with chronic kidney disease but did not have any nausea, orthopnea, cramping, change of taste, involuntary movements, urinary complaints. He denied any chronic use of NSAIDs. He said for most part his blood pressures were controlled at home. 06/02 Patient feeling well denying all systemic review. Objective General VS/I O: Vital Signs: Date Time Temp Pulse Resp B/P B/P Pulse O2 O2 Flow FiO2 Mean Ox Delivery Rate 06/03 2204 Nasal 5 cannula / 2124 96 Nasal 5 cannula / 1845 36.7 86 20 133/80 97.8 98 Nasal cannula 03/08 1645 90 52 93 /08 1618 36.4 101 12 121/71 87.9 96 Nasal cannula /08 1603 Nasal 5 cannula 03/08 1600 86 36 97 03/08 1500 88 26 98 03/08 1400 93 38 96 03/08 1300 88 26 96 03/08 1200 88 28 98 03/08 1153 36.4 86 12 118/74 88.7 93 Nasal cannula 03/08 1100 81 34 95 03/08 1000 85 37 96 03/08 0900 89 36 99 03/08 0800 86 37 98 03/08 0719 36.7 87 14 135/83 100.6 99 Room air 03/08 0700 87 33 97 03/08 0352 36.5 85 15 124/77 92.7 97 Nasal cannula /08 0024 95 Nasal 5 cannula /07 2327 36.4 84 22 125/77 92.9 97 Nasal cannula 24 hour I O ending at 0700: 03/08 0700 03/07 1900 Intake Total Output Total 1300 800 Balance -1300 -800 Number Voids 2 Output, Urine 1300 800 PATIENT WEIGHT: Weight (lb): 237 Weight (oz): 3.48 Weight (kg): 107.600 Physical Exam General appearance: alert, awake, oriented Head/eyes: atraumatic, EOMI ENT: moist mucous membranes, normal nose Neck: no JVD, no lymphadenopathy Cardiovascular: normal heart sounds, regular rate and rhythm Respiratory: aerating well, clear to auscultation Abdomen: non-tender, soft Genitourinary: no bladder distention, no flank pain Extremities: no edema, no gangrene, no swelling Diagnosis, Assessment Plan Free Text A P: 67-year-old male known to have hypertension, diabetes mellitus, hyperlipidemia, liver cirrhosis, chronic kidney disease who presented with shortness of breath and chest tightness and on further workup was found to have multivessel disease therefore he was being worked up for possible CABG. He said he had been diagnosed recently with chronic kidney disease but did not have any nausea, orthopnea, cramping, change of taste, involuntary movements, urinary complaints. He denied any chronic use of NSAIDs. He said for most part his blood pressures were controlled at home. Nephrology following for: 1. CKD:: Most recent creatinine was staying in normal range therefore plan is to keep mean arterial pressure above 65 and avoid nephrotoxic agents. 2. Hypertension: Mostly controlled therefore plan is to continue same. 3. Hypervolemia: Plan is to monitor input and output closely and treat with Lasix if needed. His echocardiogram showed an EF of 55 to 60%. 4. Chest pain/shortness of breath: He had been worked up with left heart cath and received contrast recently. Plan was to monitor closely for contrast- induced nephropathy and keep hydrated. 06/02 1. CKD:: Most recent creatinine was staying in normal range therefore plan is to keep mean arterial pressure above 65 and avoid nephrotoxic agents. 2. Hypertension: Mostly controlled therefore plan is to continue same. 3. Hypervolemia: Plan is to monitor input and output closely and treat with Lasix if needed. His echocardiogram showed an EF of 55 to 60%. 4. Chest pain/shortness of breath: He had been worked up with left heart cath and received contrast recently. Plan was to monitor closely for contrast- induced nephropathy and keep hydrated. at 2304 RPT #:[id number] END OF REPORT [facility] 2023-06-04 12:01:00 [facility] ([facility] Hospitalist Progress Note REPORT#:[id number] REPORT STATUS: Signed REPORT INITIALIZATION DATE:06/04/23 TIME: 120 PATIENT: MINDY CARTER UNIT #: [id number] ROOM/BED: [address] : [birth year] AGE: 67 SEX: M ATTEND: Denise Montejo MD ADM AUTHOR: Denise Montejo MD REPT SERVICE DT/TIME: 06/04/23 1201 * ALL edits or amendments must be made on the electronic/computer document * Subjective Chief complaint: Doing well this a.m., feeling lethargic due to poor sleep, but denies having any acute discomfort. Has increased coughing after transitioning from IV Lasix to oral Lasix, but denies any dyspnea, currently on NC. HPI: This is a 67-year-old male with history of high blood pressure, hyperlipidemia, diabetes mellitus, syncope, neuropathy, alcohol use, liver cirrhosis, stage II CKD presents with shortness of breath that has been increasing since 2 days ago. Patient took extra dose of Aldactone and hydrochlorothiazide which did not help. Patient also reports chest tightness and is currently on 5 L of oxygen per nasal cannula. Patient says that he cannot lie down he gets short of breath when he lies down. He drinks whiskey about 3 shots a day. He has been having increasing edema in bilateral lower extremities. No headaches or dizziness. No other complaints elicited. Review of Systems All systems rev neg: except as noted Objective General VS/I O: Vital Signs: Date Time Temp Pulse Resp B/P B/P Pulse O2 O2 Flow FiO2 Mean Ox Delivery Rate 06/03 1153 97.5 86 12 118/74 88.7 93 Nasal cannula 06/03 0719 98.1 87 14 135/83 100.6 99 Room air 06/03 0352 97.7 85 15 124/77 92.7 97 Nasal cannula 06/03 0024 95 Nasal 5 cannula 06/02 2327 97.5 84 22 125/77 92.9 97 Nasal cannula 06/03 1999 Nasal 5 cannula 06/03 1999 84 26 97 / 1900 84 30 97 /07 1844 97.5 85 15 121/73 88.7 97 Nasal cannula / 1800 87 35 94 03/07 1700 87 30 97 03/07 1640 97.9 86 20 144/73 0.0 97 Room air 06/02 1636 86 32 144/73 99 95 03/07 1600 81 25 97 03/07 1500 86 27 93 / 1400 89 32 96 / 1300 87 36 95 24 hour I O ending at 0700: 06/03 0700 06/02 1900 Intake Total Output Total 1300 800 Balance -1300 -800 Number Voids 2 Output, Urine 1300 800 PATIENT WEIGHT: Weight (lb): 237 Weight (oz): 3.48 Weight (kg): 107.600 Medications: Active Meds + DC'd Last 24 Hrs Furosemide (LASIX) 40 MG DAILY PO Multivitamins (TAB-A-KANDI) 1 TAB DAILY PO Thiamine HCl (THIAMINE HCL) 100 MG DAILY PO Aspirin (ASPIRIN) 81 MG DAILY PO Carvedilol (COREG) 12.5 MG Q12HR PO Amlodipine Besylate (NORVASC) 10 MG BEDTIME PO Atorvastatin Calcium (LIPITOR) 40 MG 2100 PO Doxazosin Mesylate (CARDURA) 2 MG BEDTIME PO Insulin Human Lispro (HUMALOG) 0 AC HS SUBQ Acetaminophen (TYLENOL) 650 MG Q4H PRN PRN PO Dextrose/Water (DEXTROSE 10% IN WATER) 125 ML ASDIR PRN IV (CKD) Dextrose/Water (DEXTROSE 10% IN WATER) 250 ML ASDIR PRN IV (CKD) Glucagon (GLUCAGON) 1 MG ASDIR PRN IM Hydralazine HCl (APRESOLINE) 10 MG Q6H PRN PRN IV Hydrocodone Bitart/Acetaminophen (NORCO 5/325) 1 TAB Q4H PRN PRN PO Morphine Sulfate (morphine SULFATE) 4 MG Q4H PRN PRN IV Ondansetron HCl (ZOFRAN) 4 MG Q4H PRN PRN IV Nitroglycerin (NITROSTAT) 0.4 MG Q5M PRN PRN SL Heparin Sodium (HEPARIN 5000 UNITS/ML) 9,000 UNIT ASDIR PRN PRN IV Heparin Sodium (HEPARIN 5000 UNITS/ML) 4,500 UNIT ASDIR PRN PRN IV Heparin Sodium (Porcine) (HEPARIN 25,000 UNITS/ 1/2NS 500ML) 500 ML ASDIR IV (CKD) Sodium Chloride (SODIUM CHLORIDE 0.9%) 1,000 ML Q24H IV Dietitian nutrition assessment The data set between the solid lines has been imported from the dietitian's assessment. BMI Calculated: 35.0 Nutrition related diagnosis: Nutrition diagnosis details: Nutrition problem: Nutrition etiology: Nutrition signs and symptoms: Nutrition prescription: Dietitian name: Assessment completed: Physical Exam General appearance: lethargic, awake, oriented Head/Eyes: atraumatic, clear cornea, EOMI, PERRLA Neck: normal thyroid, supple/no meningismus Cardiovascular: normal heart sounds, regular rate rhythm, no gallop, no murmur , no rub Respiratory: aerating well, clear to auscultation Abdomen: non-tender, normal bowel sounds, soft, no distention Extremities: edema, no clubbing, no cyanosis Neuro/BUSINESS AREA MANAGER: alert, oriented X 3, CNII-XII intact Skin: dry, intact, no rash Results Findings/Data: Laboratory Tests 06/03 06/03 06/02 06/02 0717 0310 1841 1635 Chemistry Sodium (134 - 147 mEq/L) 137 Potassium (3.4 - 5.0 mEq/L) 3.7 Chloride (100 - 108 mEq/L) 104 Carbon Dioxide (21 - 33 mEq/l) 25 Anion Gap (0 - 20) 11 BUN (7 - 25 mg/dL) 20 Creatinine (0.6 - 1.3 mg/dL) 0.9 Glomerular Filtr Rate (80 - 90) 93.0 H Glucose (77 - 141 mg/dL) 159 H POC Glucose (70 - 110 MG/DL) 188 H 272 H 239 H Calcium (8.0 - 10.5 mg/dL) 8.5 Magnesium (1.6 - 2.6 mg/dL) 1.82 Total Bilirubin (0.0 - 1.0 mg/dL) 0.70 AST (8 - 34 IUnit/L) 49 H ALT (10 - 49 IUnit/L) 42 Total Alk Phosphatase (20 - 125 IUnit/L) 144 H Total Protein (6.4 - 8.2 g/dL) 6.6 Albumin (3.4 - 5.0 g/dL) 3.00 L Laboratory Tests 06/03 0944 Coagulation PTT ([place]) (25.0 - 39.5 Seconds) 74.9 H Laboratory Tests 06/03 0310 Hematology WBC (4.5 - 11.0 x10 3/uL) 6.8 RBC (4.00 - 5.60 x10 6/uL) 4.06 Hgb (12.5 - 16.9 g/dL) 12.1 L Hct (37.5 - 50.7 %) 37.6 MCV (81.0 - 99.0 fL) 92.6 MCH (27.0 - 33.0 pg) 29.8 MCHC (33.0 - 37.0 g/dL) 32.2 L RDW (11.5 - 14.5 %) 13.0 Plt Count (150 - 400 x10 3/uL) 151 MPV (7.0 - 9.0 fL) 11.9 H Neut % (Auto) (56.0 - 77.0 %) 73.4 Lymph % (Auto) (14.0 - 32.0 %) 9.7 L [place] % (Auto) (4.8 - 9.0 %) 11.2 H Eos % (Auto) (0.3 - 3.7 %) 4.4 H Baso % (Auto) (0.0 - 2.0 %) 0.7 Neut # (Auto) (2.0 - 7.6 x10 3/uL) 4.98 Lymph # (Auto) (1.0 - 3.8 x10 3/uL) 0.66 L [place] # (Auto) (0.1 - 0.8 x10 3/uL) 0.76 Eos # (Auto) (0.0 - 0.2 x10 3/uL) 0.30 H Baso # (Auto) (0.0 - 0.2 x10 3/uL) 0.05 Abs Immat Gran (auto) (0.00 - 0.03 x10 3/uL) 0.04 H Immature Gran % (0.0 - 2.0 %) 0.6 Nucleated RBC % (0 - 0 %) 0.0 Nucleated RBCs # (Man) (0.0 - 0.1 x10 3/uL) 0.00 Diagnosis, Assessment Plan Orders: Procedure Date/time Status THROMBOPLASTIN TIME PARTIAL 06/03 0938 Complete Telemetry Monitoring 06/03 0752 Active OXYGEN PER HOUR 06/03 0125 Complete Code status: full code Free Text DxA P Notes Free text DxA P notes: Shortness of breath Differential diagnosis includes CHF Placed on Lasix 40 mg IV every 8 hours Cardiology consulted Echo ordered Chest tightness Possibly secondary to fluid overload Cardiology consulted Echo pending Elevated troponin Consulted cardiology On Lovenox Diabetes mellitus A1c 8.4% Sliding scale insulin as needed Hypertension Renew medications once they have been updated in the computer Check labs in the a.m. Patient does not have a living will or medical power of defense attorney Patient is a full code 06/01 multivessel disease on cath, CTS consulted, patient undergoing preop evaluation for possible CABG. 06/02- pt continues cabg eval, conf Fri, nephro/GI consulted per cts, renal indices wnls today, Abd us confirmed cirrhosis with splenomegaly. 06/03 patient continues preop evaluation for CABG, IV Lasix transition to oral Quality: Gen Med Crit Care VTE Prophylaxis VTE prophylaxis initiated: yes Current Medications Current medication review: I attest that the foregoing medication list in the medical record is true, accurate, and complete to the best of my knowledge. Advanced Care Plan 65 or Older Discussed with: patient Discussion included: living will, power of defense attorney, code status at 1203 RPT #:[id number] END OF REPORT [facility] 2023-06-04 11:35:00 [facility] Gastroenterology Progress Note REPORT#:[id number] REPORT STATUS: Signed REPORT INITIALIZATION DATE:06/04/23 TIME: 1134 PATIENT: MINDY CARTER UNIT #: [id number] ROOM/BED: [place] [address] : [birth year] AGE: 67 SEX: M ATTEND: Denise Montejo MD ADM AUTHOR: Farideh Harris REPT SERVICE DT/TIME: 06/04/23 1135 * ALL edits or amendments must be made on the electronic/computer document * Farideh Harris 06/04/23 1135: Subjective Patient reports: Yes: passing gas. No: abdominal pain, black stools, bowel movement, nausea, rectal bleeding, vomiting. Review of Systems Constitutional: Denies: chills, fever. Respiratory: Denies: SOB. Cardiovascular: Denies: chest pain. Neuro: Denies: headache. Objective General VS/I O: Last Documented: Result Date Time Pulse Ox 93 06/03 1153 B/P 118/74 06/03 1153 B/P Mean 88.7 06/03 1153 O2 Delivery Nasal cannula 06/03 1152 Temp 36.4 06/03 115 Pulse 86 06/03 1153 Resp 12 06/03 1153 O2 Flow Rate 5 06/03 0024 24 hour I O ending at 0700: 06/03 0700 06/02 1900 Intake Total Output Total 1300 800 Balance -1300 -800 Number Voids 2 Output, Urine 1300 800 PATIENT WEIGHT: Weight (lb): 237 Weight (oz): 3.48 Weight (kg): 107.600 Medications: Active Meds + DC'd Last 24 Hrs Lactulose (LACTULOSE) 10 GM DAILY PRN PRN PO (UNV) Furosemide (LASIX) 40 MG DAILY PO Multivitamins (TAB-A-KANDI) 1 TAB DAILY PO Thiamine HCl (THIAMINE HCL) 100 MG DAILY PO Aspirin (ASPIRIN) 81 MG DAILY PO Carvedilol (COREG) 12.5 MG Q12HR PO Amlodipine Besylate (NORVASC) 10 MG BEDTIME PO Atorvastatin Calcium (LIPITOR) 40 MG 2100 PO Doxazosin Mesylate (CARDURA) 2 MG BEDTIME PO Insulin Human Lispro (HUMALOG) 0 AC HS SUBQ Acetaminophen (TYLENOL) 650 MG Q4H PRN PRN PO Dextrose/Water (DEXTROSE 10% IN WATER) 125 ML ASDIR PRN IV (CKD) Dextrose/Water (DEXTROSE 10% IN WATER) 250 ML ASDIR PRN IV (CKD) Glucagon (GLUCAGON) 1 MG ASDIR PRN IM Hydralazine HCl (APRESOLINE) 10 MG Q6H PRN PRN IV Hydrocodone Bitart/Acetaminophen (NORCO 5/325) 1 TAB Q4H PRN PRN PO Morphine Sulfate (morphine SULFATE) 4 MG Q4H PRN PRN IV Ondansetron HCl (ZOFRAN) 4 MG Q4H PRN PRN IV Nitroglycerin (NITROSTAT) 0.4 MG Q5M PRN PRN SL Heparin Sodium (HEPARIN 5000 UNITS/ML) 9,000 UNIT ASDIR PRN PRN IV Heparin Sodium (HEPARIN 5000 UNITS/ML) 4,500 UNIT ASDIR PRN PRN IV Heparin Sodium (Porcine) (HEPARIN 25,000 UNITS/ 1/2NS 500ML) 500 ML ASDIR IV (CKD) Sodium Chloride (SODIUM CHLORIDE 0.9%) 1,000 ML Q24H IV Dietitian nutrition assessment The data set between the solid lines has been imported from the dietitian's assessment. BMI Calculated: 35.0 Nutrition related diagnosis: Nutrition diagnosis details: Nutrition problem: Nutrition etiology: Nutrition signs and symptoms: Nutrition prescription: Dietitian name: Assessment completed: Physical Exam General appearance: alert, awake, oriented HEENT: atraumatic, normocephalic Neck: full range of motion Cardiovascular: normal S1/S2, regular rate rhythm Respiratory: symmetric expansion, no distress Abdomen: non-tender, normal bowel sounds, soft, no distention, no guarding Extremities: moves all Musculoskeletal: normal inspection Neuro/BUSINESS AREA MANAGER: alert, oriented X 3, normal speech Skin: dry, intact, normal color Psychiatry: normal affect, normal judgment/insight, normal mood Results Findings/Data: Laboratory Tests 06/04/23 0310: [Embedded Image Not Available] Laboratory Tests 06/03 06/03 06/03 06/02 06/02 1151 0717 0310 1841 1635 Chemistry Sodium (134 - 147 mEq/L) 137 Potassium (3.4 - 5.0 mEq/L) 3.7 Chloride (100 - 108 mEq/L) 104 Carbon Dioxide (21 - 33 mEq/l) 25 Anion Gap (0 - 20) 11 BUN (7 - 25 mg/dL) 20 Creatinine (0.6 - 1.3 mg/dL) 0.9 Glomerular Filtr Rate (80 - 90) 93.0 H Glucose (77 - 141 mg/dL) 159 H POC Glucose (70 - 110 MG/DL) 301 H 188 H 272 H 239 H Calcium (8.0 - 10.5 mg/dL) 8.5 Magnesium (1.6 - 2.6 mg/dL) 1.82 Total Bilirubin (0.0 - 1.0 mg/dL) 0.70 AST (8 - 34 IUnit/L) 49 H ALT (10 - 49 IUnit/L) 42 Total Alk Phosphatase (20 - 125 IUnit/L) 144 H Total Protein (6.4 - 8.2 g/dL) 6.6 Albumin (3.4 - 5.0 g/dL) 3.00 L Laboratory Tests 06/03 0944 Coagulation PTT (Rashida) (25.0 - 39.5 Seconds) 74.9 H Laboratory Tests 06/03 0310 Hematology WBC (4.5 - 11.0 x10 3/uL) 6.8 RBC (4.00 - 5.60 x10 6/uL) 4.06 Hgb (12.5 - 16.9 g/dL) 12.1 L Hct (37.5 - 50.7 %) 37.6 MCV (81.0 - 99.0 fL) 92.6 MCH (27.0 - 33.0 pg) 29.8 MCHC (33.0 - 37.0 g/dL) 32.2 L RDW (11.5 - 14.5 %) 13.0 Plt Count (150 - 400 x10 3/uL) 151 MPV (7.0 - 9.0 fL) 11.9 H Neut % (Auto) (56.0 - 77.0 %) 73.4 Lymph % (Auto) (14.0 - 32.0 %) 9.7 L [place] % (Auto) (4.8 - 9.0 %) 11.2 H Eos % (Auto) (0.3 - 3.7 %) 4.4 H Baso % (Auto) (0.0 - 2.0 %) 0.7 Neut # (Auto) (2.0 - 7.6 x10 3/uL) 4.98 Lymph # (Auto) (1.0 - 3.8 x10 3/uL) 0.66 L [place] # (Auto) (0.1 - 0.8 x10 3/uL) 0.76 Eos # (Auto) (0.0 - 0.2 x10 3/uL) 0.30 H Baso # (Auto) (0.0 - 0.2 x10 3/uL) 0.05 Abs Immat Gran (auto) (0.00 - 0.03 x10 3/uL) 0.04 H Immature Gran % (0.0 - 2.0 %) 0.6 Nucleated RBC % (0 - 0 %) 0.0 Nucleated RBCs # (Man) (0.0 - 0.1 x10 3/uL) 0.00 Results: labs reviewed, vital signs reviewed Diagnosis, Assessment Plan Problem List/A P: 1. Cirrhosis 2. Hepatitis C 3. Elevated LFTs 4. Alcohol dependence 5. CHF exacerbation Free Text A P: (06/03/2023) MELD score of 7 given estimated 3-month mortality of 1.9% at bedside. Feeling tired today. No BM yet. Will provide lactulose prn Recommendations: 1. Periodically onitor LFTs 2. INR 1.1 3. Abdominal ultrasound revealed cirrhosis with splenomegaly, cholelithiasis, and nonspecific gallbladder wall thickening likely secondary to chronic liver disease as patient does not express abdominal pain at this time 4. History of hepatitis C, PCR pending 5. Daily alcohol use, monitor for withdrawal symptoms, MVI and thiamine; encouraged cessation 6. Further recommendations may follow Rigoberto Jarrell 06/04/23 1623: Attestations Physician Attestation Agree w/findings plan: Agree with the findings and plan as documented by RAHUL Tobias. at 1430 at 1623 RPT #:[id number] END OF REPORT [facility] 2023-06-03 11:41:00 [facility] ([facility]) Gastroenterology Progress Note REPORT#:[id number] REPORT STATUS: Signed REPORT INITIALIZATION DATE:06/03/23 TIME: 114 PATIENT: MINDY CARTER UNIT #: [id number] ROOM/BED: 3360-1 : 54 AGE: 67 SEX: M ATTEND: Denise Montejo MD ADM AUTHOR: Farideh Harris REPT SERVICE DT/TIME: 06/03/23 1141 * ALL edits or amendments must be made on the electronic/computer document * Farideh Harris 06/03/23 1141: Subjective Patient reports: Yes: bowel movement, passing gas. No: abdominal pain, black stools, nausea, rectal bleeding, vomiting. Review of Systems Constitutional: Denies: chills, fever. Respiratory: Denies: SOB. Cardiovascular: Denies: chest pain. Neuro: Denies: headache. Objective General VS/I O: Last Documented: Result Date Time Pulse Ox 97 06/02 120 B/P 131/74 06/02 120 B/P Mean 0.0 06/02 120 O2 Delivery Nasal cannula 06/02 1200 Temp 36.7 06/02 120 Pulse 89 06/02 120 Resp 20 06/02 120 O2 Flow Rate 5 06/02 0855 24 hour I O ending at 0700: 06/02 0700 06/01 1900 Intake Total 300 Output Total 600 Balance -300 Intake, Oral 300 Output, Urine 600 PATIENT WEIGHT: Weight (lb): 237 Weight (oz): 3.48 Weight (kg): 107.600 Medications: Active Meds + DC'd Last 24 Hrs Furosemide (LASIX) 40 MG DAILY PO Multivitamins (TAB-A-KANDI) 1 TAB DAILY PO Thiamine HCl (THIAMINE HCL) 100 MG DAILY PO Atropine Sulfate (ATROPINE SULFATE 0.1MG/ML SYR) 0.5 MG ASDIR PRN IV (DC ) Sodium Chloride (SODIUM CHLORIDE 0.9%) 500 ML ASDIR PRN IV (DC) Aspirin (ASPIRIN) 81 MG DAILY PO Carvedilol (COREG) 12.5 MG Q12HR PO Amlodipine Besylate (NORVASC) 10 MG BEDTIME PO Atorvastatin Calcium (LIPITOR) 40 MG 2100 PO Doxazosin Mesylate (CARDURA) 2 MG BEDTIME PO Insulin Human Lispro (HUMALOG) 0 AC HS SUBQ Acetaminophen (TYLENOL) 650 MG Q4H PRN PRN PO Dextrose/Water (DEXTROSE 10% IN WATER) 125 ML ASDIR PRN IV (CKD) Dextrose/Water (DEXTROSE 10% IN WATER) 250 ML ASDIR PRN IV (CKD) Glucagon (GLUCAGON) 1 MG ASDIR PRN IM Hydralazine HCl (APRESOLINE) 10 MG Q6H PRN PRN IV Hydrocodone Bitart/Acetaminophen (NORCO 5/325) 1 TAB Q4H PRN PRN PO Morphine Sulfate (morphine SULFATE) 4 MG Q4H PRN PRN IV Ondansetron HCl (ZOFRAN) 4 MG Q4H PRN PRN IV Nitroglycerin (NITROSTAT) 0.4 MG Q5M PRN PRN SL Heparin Sodium (HEPARIN 5000 UNITS/ML) 9,000 UNIT ASDIR PRN PRN IV Heparin Sodium (HEPARIN 5000 UNITS/ML) 4,500 UNIT ASDIR PRN PRN IV Heparin Sodium (Porcine) (HEPARIN 25,000 UNITS/ 1/2NS 500ML) 500 ML ASDIR IV (CKD) Sodium Chloride (SODIUM CHLORIDE 0.9%) 1,000 ML Q24H IV Dietitian nutrition assessment The data set between the solid lines has been imported from the dietitian's assessment. BMI Calculated: 35.0 Nutrition related diagnosis: Nutrition diagnosis details: Nutrition problem: Nutrition etiology: Nutrition signs and symptoms: Nutrition prescription: Dietitian name: Assessment completed: Physical Exam General appearance: alert, awake, oriented HEENT: atraumatic, normocephalic Neck: full range of motion Cardiovascular: normal S1/S2, regular rate rhythm Respiratory: symmetric expansion, no distress Abdomen: non-tender, normal bowel sounds, soft, no distention, no guarding Extremities: moves all Musculoskeletal: normal inspection Neuro/BUSINESS AREA MANAGER: alert, oriented X 3, normal speech Skin: dry, intact, normal color Psychiatry: normal affect, normal judgment/insight, normal mood Results Findings/Data: Laboratory Tests 06/03/23 0458: [Embedded Image Not Available] Laboratory Tests 06/02 06/02 06/02 06/01 06/01 1152 0736 0458 2025 1604 Chemistry Sodium (134 - 147 mEq/L) 138 Potassium (3.4 - 5.0 mEq/L) 3.8 Chloride (100 - 108 mEq/L) 105 Carbon Dioxide (21 - 33 mEq/l) 23 Anion Gap (0 - 20) 14 BUN (7 - 25 mg/dL) 21 Creatinine (0.6 - 1.3 mg/dL) 1.0 Glomerular Filtr Rate (80 - 90) 82.0 Glucose (77 - 141 mg/dL) 185 H POC Glucose (70 - 110 MG/DL) 290 H 190 H 296 H 167 H Calcium (8.0 - 10.5 mg/dL) 8.2 Total Bilirubin (0.0 - 1.0 mg/dL) 0.80 AST (8 - 34 IUnit/L) 42 H ALT (10 - 49 IUnit/L) 33 Total Alk Phosphatase (20 - 125 IUnit/L) 141 H Total Protein (6.4 - 8.2 g/dL) 6.6 Albumin (3.4 - 5.0 g/dL) 3.10 L Laboratory Tests 06/02 06/02 06/02 06/01 06/01 0939 0458 0339 2144 1555 Coagulation INR (0.8 - 1.2) 1.1 PTT (Rashida) (25.0 - 39.5 Seconds) 69.0 H 63.5 H 52.6 H 79.1 H PT Patient/Control Mix (9.3 - 12.9 12.7 SECONDS) Laboratory Tests 06/02 0458 Hematology WBC (4.5 - 11.0 x10 3/uL) 7.6 RBC (4.00 - 5.60 x10 6/uL) 4.14 Hgb (12.5 - 16.9 g/dL) 12.5 Hct (37.5 - 50.7 %) 38.7 MCV (81.0 - 99.0 fL) 93.5 MCH (27.0 - 33.0 pg) 30.2 MCHC (33.0 - 37.0 g/dL) 32.3 L RDW (11.5 - 14.5 %) 13.1 Plt Count (150 - 400 x10 3/uL) 155 MPV (7.0 - 9.0 fL) 11.7 H Neut % (Auto) (56.0 - 77.0 %) 75.5 Lymph % (Auto) (14.0 - 32.0 %) 8.3 L [place] % (Auto) (4.8 - 9.0 %) 11.5 H Eos % (Auto) (0.3 - 3.7 %) 3.7 Baso % (Auto) (0.0 - 2.0 %) 0.5 Neut # (Auto) (2.0 - 7.6 x10 3/uL) 5.70 Lymph # (Auto) (1.0 - 3.8 x10 3/uL) 0.63 L [place] # (Auto) (0.1 - 0.8 x10 3/uL) 0.87 H Eos # (Auto) (0.0 - 0.2 x10 3/uL) 0.28 H Baso # (Auto) (0.0 - 0.2 x10 3/uL) 0.04 Abs Immat Gran (auto) (0.00 - 0.03 x10 3/uL) 0.04 H Immature Gran % (0.0 - 2.0 %) 0.5 Nucleated RBC % (0 - 0 %) 0.0 Nucleated RBCs # (Man) (0.0 - 0.1 x10 3/uL) 0.00 Laboratory Tests 06/02 0458 Serology Hepatitis A IgM Ab (NON REACT. INDEX) NON REACTIVE Hep Bs Antigen (NonReactive INDEX) NON REACTIVE Hep B Core IgM Ab (NON REACT. INDEX) NON REACTIVE Hepatitis C Antibody (NON REACT. INDEX) REACTIVE H Radiology Data: Recent Impressions: ULTRASOUND - US ABDOMEN COMPLETE 06/01 1443 Report Impression - Status: SIGNED Entered: 06/02/2023 1601 IMPRESSION: Cirrhosis with splenomegaly. No definite ascites. Cholelithiasis. No pericholecystic fluid. The gallbladder roberto appear thickened and and may be secondary to the chronic liver disease. Cholecystitis cannot be excluded. Impression By: [email or web address] - Elio Pimentel M.D. Results: labs reviewed, vital signs reviewed, US results reviewed Diagnosis, Assessment Plan Problem List/A P: 1. Cirrhosis 2. Hepatitis C 3. Elevated LFTs 4. Alcohol dependence 5. CHF exacerbation Free Text A P: (06/03/2023) MELD score of 7 given estimated 3-month mortality of 1.9% at bedside. Recommendations: 1. Monitor LFTs 2. INR 1.1 3. Abdominal ultrasound revealed cirrhosis with splenomegaly, cholelithiasis, and nonspecific gallbladder wall thickening likely secondary to chronic liver disease as patient does not express abdominal pain at this time 4. History of hepatitis C, check PCR 5. Daily alcohol use, monitor for withdrawal symptoms, MVI and thiamine; encouraged cessation 6. Further recommendations may follow Attestations Attestation needed: supervising physician Rigoberto Jarrell 06/03/23 1824: Attestations Physician Attestation Agree w/findings plan: Agree with the findings and plan as documented by RAHUL Tobias. at 1349 at 1820 RPT #:[id number] END OF REPORT [facility] 2023-06-03 08:57:00 [facility] Hospitalist Progress Note REPORT#:[id number] REPORT STATUS: Signed REPORT INITIALIZATION DATE:06/03/23 TIME: 856 PATIENT: MINDY CARTER UNIT #: [id number] ROOM/BED: [place] [address] : 54 AGE: 67 SEX: M ATTEND: Denise Montejo MD ADM AUTHOR: Denise Montejo MD REPT SERVICE DT/TIME: 06/03/23 0857 * ALL edits or amendments must be made on the electronic/computer document * Subjective Chief complaint: no acute complaints HPI: This is a 67-year-old male with history of high blood pressure, hyperlipidemia, diabetes mellitus, syncope, neuropathy, alcohol use, liver cirrhosis, stage II CKD presents with shortness of breath that has been increasing since 2 days ago. Patient took extra dose of Aldactone and hydrochlorothiazide which did not help. Patient also reports chest tightness and is currently on 5 L of oxygen per nasal cannula. Patient says that he cannot lie down he gets short of breath when he lies down. He drinks whiskey about 3 shots a day. He has been having increasing edema in bilateral lower extremities. No headaches or dizziness. No other complaints elicited. Review of Systems All systems rev neg: except as noted Objective General VS/I O: Vital Signs: Date Time Temp Pulse Resp B/P B/P Pulse O2 O2 Flow FiO2 Mean Ox Delivery Rate 06/02 0739 98.1 92 24 124/69 0.0 97 Nasal cannula 06/02 0600 87 26 97 03/ 0500 90 29 98 03/ 0400 91 29 98 / 0341 97.9 101 143/87 105.3 99 / 0300 86 27 97 / 0200 84 24 94 03/ 0100 90 26 95 03/ 0045 88 25 95 03/06 2321 97.7 92 127/75 0.0 90 / 2245 94 26 94 / 2145 86 24 96 06/01 2037 89 147/97 113.4 97 06/01 2030 98.2 89 164/93 116.7 97 06/01 1935 Nasal 5 cannula 06/01 1900 Nasal 5 cannula 06/01 1835 97.3 91 16 150/89 109.4 93 Room air 06/01 1603 98.1 89 18 127/76 93.1 97 / 1107 98.2 85 16 124/77 92.6 95 24 hour I O ending at 0700: 06/02 0700 06/01 1900 Intake Total 300 Output Total 600 Balance -300 Intake, Oral 300 Output, Urine 600 PATIENT WEIGHT: Weight (lb): 237 Weight (oz): 3.48 Weight (kg): 107.600 Medications: Active Meds + DC'd Last 24 Hrs Furosemide (LASIX) 40 MG DAILY PO Multivitamins (TAB-A-KANDI) 1 TAB DAILY PO Thiamine HCl (THIAMINE HCL) 100 MG DAILY PO Atropine Sulfate (ATROPINE SULFATE 0.1MG/ML SYR) 0.5 MG ASDIR PRN IV (DC ) Sodium Chloride (SODIUM CHLORIDE 0.9%) 500 ML ASDIR PRN IV (DC) Aspirin (ASPIRIN) 81 MG DAILY PO Carvedilol (COREG) 12.5 MG Q12HR PO Amlodipine Besylate (NORVASC) 10 MG BEDTIME PO Atorvastatin Calcium (LIPITOR) 40 MG 2100 PO Doxazosin Mesylate (CARDURA) 2 MG BEDTIME PO Insulin Human Lispro (HUMALOG) 0 AC HS SUBQ Furosemide (LASIX 40 mg/4 mL INJECTION) 40 MG Q8HR IV (DC) Acetaminophen (TYLENOL) 650 MG Q4H PRN PRN PO Dextrose/Water (DEXTROSE 10% IN WATER) 125 ML ASDIR PRN IV (CKD) Dextrose/Water (DEXTROSE 10% IN WATER) 250 ML ASDIR PRN IV (CKD) Glucagon (GLUCAGON) 1 MG ASDIR PRN IM Hydralazine HCl (APRESOLINE) 10 MG Q6H PRN PRN IV Hydrocodone Bitart/Acetaminophen (NORCO 5/325) 1 TAB Q4H PRN PRN PO Morphine Sulfate (morphine SULFATE) 4 MG Q4H PRN PRN IV Ondansetron HCl (ZOFRAN) 4 MG Q4H PRN PRN IV Nitroglycerin (NITROSTAT) 0.4 MG Q5M PRN PRN SL Heparin Sodium (HEPARIN 5000 UNITS/ML) 9,000 UNIT ASDIR PRN PRN IV Heparin Sodium (HEPARIN 5000 UNITS/ML) 4,500 UNIT ASDIR PRN PRN IV Heparin Sodium (Porcine) (HEPARIN 25,000 UNITS/ 1/2NS 500ML) 500 ML ASDIR IV (CKD) Sodium Chloride (SODIUM CHLORIDE 0.9%) 1,000 ML Q24H IV Dietitian nutrition assessment The data set between the solid lines has been imported from the dietitian's assessment. BMI Calculated: 35.0 Nutrition related diagnosis: Nutrition diagnosis details: Nutrition problem: Nutrition etiology: Nutrition signs and symptoms: Nutrition prescription: Dietitian name: Assessment completed: Physical Exam General appearance: alert, awake, oriented Head/Eyes: atraumatic, clear cornea, EOMI, PERRLA Neck: normal thyroid, supple/no meningismus Cardiovascular: normal heart sounds, regular rate rhythm, no gallop, no murmur , no rub Respiratory: aerating well, clear to auscultation Abdomen: non-tender, normal bowel sounds, soft, no distention Extremities: edema, no clubbing, no cyanosis Neuro/BUSINESS AREA MANAGER: alert, oriented X 3, CNII-XII intact Results Findings/Data: Laboratory Tests 06/02 06/02 06/01 06/01 06/01 0736 0458 2025 1604 1108 Chemistry Sodium (134 - 147 mEq/L) 138 Potassium (3.4 - 5.0 mEq/L) 3.8 Chloride (100 - 108 mEq/L) 105 Carbon Dioxide (21 - 33 mEq/l) 23 Anion Gap (0 - 20) 14 BUN (7 - 25 mg/dL) 21 Creatinine (0.6 - 1.3 mg/dL) 1.0 Glomerular Filtr Rate (80 - 90) 82.0 Glucose (77 - 141 mg/dL) 185 H POC Glucose (70 - 110 MG/DL) 190 H 296 H 167 H 252 H Calcium (8.0 - 10.5 mg/dL) 8.2 Total Bilirubin (0.0 - 1.0 mg/dL) 0.80 AST (8 - 34 IUnit/L) 42 H ALT (10 - 49 IUnit/L) 33 Total Alk Phosphatase (20 - 125 141 H IUnit/L) Total Protein (6.4 - 8.2 g/dL) 6.6 Albumin (3.4 - 5.0 g/dL) 3.10 L 06/01 1014 Chemistry Total Bilirubin (0.0 - 1.0 mg/dL) 1.10 H Direct Bilirubin (0.1 - 0.3 MG/DL) 0.50 H Indirect Bilirubin (MG/DL) 0.60 AST (8 - 34 IUnit/L) 38 H ALT (10 - 49 IUnit/L) 29 Total Alk Phosphatase (20 - 125 IUnit/L) 128 H Total Protein (6.4 - 8.2 g/dL) 7.1 Albumin (3.4 - 5.0 g/dL) 3.10 L Laboratory Tests 06/02 06/02 06/01 06/01 0458 0339 2144 1555 Coagulation INR (0.8 - 1.2) 1.1 PTT ([place]) (25.0 - 39.5 Seconds) 63.5 H 52.6 H 79.1 H PT Patient/Control Mix (9.3 - 12.9 SECONDS) 12.7 03 1014 Coagulation PTT (Rashida) (25.0 - 39.5 Seconds) 71.3 H Laboratory Tests 06/02 457 Hematology WBC (4.5 - 11.0 x10 3/uL) 7.6 RBC (4.00 - 5.60 x10 6/uL) 4.14 Hgb (12.5 - 16.9 g/dL) 12.5 Hct (37.5 - 50.7 %) 38.7 MCV (81.0 - 99.0 fL) 93.5 MCH (27.0 - 33.0 pg) 30.2 MCHC (33.0 - 37.0 g/dL) 32.3 L RDW (11.5 - 14.5 %) 13.1 Plt Count (150 - 400 x10 3/uL) 155 MPV (7.0 - 9.0 fL) 11.7 H Neut % (Auto) (56.0 - 77.0 %) 75.5 Lymph % (Auto) (14.0 - 32.0 %) 8.3 L [place] % (Auto) (4.8 - 9.0 %) 11.5 H Eos % (Auto) (0.3 - 3.7 %) 3.7 Baso % (Auto) (0.0 - 2.0 %) 0.5 Neut # (Auto) (2.0 - 7.6 x10 3/uL) 5.70 Lymph # (Auto) (1.0 - 3.8 x10 3/uL) 0.63 L [place] # (Auto) (0.1 - 0.8 x10 3/uL) 0.87 H Eos # (Auto) (0.0 - 0.2 x10 3/uL) 0.28 H Baso # (Auto) (0.0 - 0.2 x10 3/uL) 0.04 Abs Immat Gran (auto) (0.00 - 0.03 x10 3/uL) 0.04 H Immature Gran % (0.0 - 2.0 %) 0.5 Nucleated RBC % (0 - 0 %) 0.0 Nucleated RBCs # (Man) (0.0 - 0.1 x10 3/uL) 0.00 Laboratory Tests 06/02 457 Serology Hepatitis A IgM Ab (NON REACT. INDEX) NON REACTIVE Hep Bs Antigen (NonReactive INDEX) NON REACTIVE Hep B Core IgM Ab (NON REACT. INDEX) NON REACTIVE Hepatitis C Antibody (NON REACT. INDEX) REACTIVE H Radiology data: Recent Impressions: ULTRASOUND - US ABDOMEN COMPLETE 06/01 1443 Report Impression - Status: SIGNED Entered: 06/02/2023 1601 IMPRESSION: Cirrhosis with splenomegaly. No definite ascites. Cholelithiasis. No pericholecystic fluid. The gallbladder roberto appear thickened and and may be secondary to the chronic liver disease. Cholecystitis cannot be excluded. Impression By: [email or web address] Frandy Pimentel M.D. Diagnosis, Assessment Plan Free Text DxA P Notes Free text DxA P notes: Shortness of breath Differential diagnosis includes CHF Placed on Lasix 40 mg IV every 8 hours Cardiology consulted Echo ordered Chest tightness Possibly secondary to fluid overload Cardiology consulted Echo pending Elevated troponin Consulted cardiology On Lovenox Diabetes mellitus A1c 8.4% Sliding scale insulin as needed Hypertension Renew medications once they have been updated in the computer Check labs in the a.m. Patient does not have a living will or medical power of defense attorney Patient is a full code 06/01 multivessel disease on cath, CTS consulted, patient undergoing preop evaluation for possible CABG. 06/02- pt continues cabg eval, conf Fri, nephro/GI consulted per cts, renal indices wnls today, Abd us confirmed cirrhosis with splenomegaly. Quality: Gen Med Crit Care VTE Prophylaxis VTE prophylaxis initiated: yes Current Medications Current medication review: I attest that the foregoing medication list in the medical record is true, accurate, and complete to the best of my knowledge. Advanced Care Plan 65 or Older Discussed with: patient Discussion included: living will, power of defense attorney, code status at 0900 RPT #:[id number] END OF REPORT [facility] 2023-06-02 23:02:00 [facility] ([facility]) Nephrology Consultation Note REPORT#:[id number] REPORT STATUS: Signed REPORT INITIALIZATION DATE:06/02/23 TIME: 230 PATIENT: MINDY CARTER UNIT #: [id number] ROOM/BED: [place] [address] : 54 AGE: 67 SEX: M ATTEND: Denise Montejo MD ADM AUTHOR: Nkechi Bacon MD REPT SERVICE DT/TIME: 06/02/23 0453 * ALL edits or amendments must be made on the electronic/computer document * History of Present Illness Requesting clinician: Dr Martel Reason for consult: CKD Chief complaint: SOB, CP HPI: 67-year-old male known to have hypertension, diabetes mellitus, hyperlipidemia, liver cirrhosis, chronic kidney disease who presented with shortness of breath and chest tightness and on further workup was found to have multivessel disease therefore he was being worked up for possible CABG. He said he had been diagnosed recently with chronic kidney disease but did not have any nausea, orthopnea, cramping, change of taste, involuntary movements, urinary complaints. He denied any chronic use of NSAIDs. He said for most part his blood pressures were controlled at home. History - Adult longitudinal Past medical history: Reports: Kidney disease/stones. Additional medical history: Hypertension, hyperlipidemia, diabetes mellitus, neuropathy, syncope, alcohol use, stage II CKD, liver cirrhosis Additional surgical history: Appendectomy Additional family history: None Alcohol use: Alcohol use (3 SHOTS OF WHISKEY/DAY) Drug use: Denies recreational drugs Smoking status for patients 13 years old or older: Never Smoker Allergies: Coded Allergies: No Known Allergies (05/31/23) Review of Systems Constitutional: Denies: chills, fever. Skin: Denies: abrasion, bruising. Allergy/Immun: Denies: allergic reaction, anaphylaxis. Eyes: Denies: redness, discharge. ENT: Denies: sore throat, throat pain. Respiratory: Denies: HERRING (dyspnea on exertion), hemoptysis. Cardiovascular: Denies: chest pain, HERRING (dyspnea on exertion). GI: Denies: abdominal pain, anorexia. : Denies: dysuria, flank pain. Objective General VS/I O: Vital Signs: Date Time Temp Pulse Resp B/P B/P Pulse O2 O2 Flow FiO2 Mean Ox Delivery Rate 06/03 2204 Nasal 5 cannula 06/03 2124 96 Nasal 5 cannula 06/03 1845 36.7 86 20 133/80 97.8 98 Nasal cannula 06/03 1645 90 52 93 06/03 1618 36.4 101 12 121/71 87.9 96 Nasal cannula 03/08 1603 Nasal 5 cannula 03/08 1600 86 36 97 03/08 1500 88 26 98 03/08 1400 93 38 96 03/08 1300 88 26 96 03/08 1200 88 28 98 03/08 1153 36.4 86 12 118/74 88.7 93 Nasal cannula 03/08 1100 81 34 95 03/08 1000 85 37 96 03/08 0900 89 36 99 03/08 0800 86 37 98 03/08 0719 36.7 87 14 135/83 100.6 99 Room air /08 0700 87 33 97 03/08 0352 36.5 85 15 124/77 92.7 97 Nasal cannula /08 0024 95 Nasal 5 cannula / 2327 36.4 84 22 125/77 92.9 97 Nasal cannula 24 hour I O ending at 0700: 06/03 0700 06/02 1900 Intake Total Output Total 1300 800 Balance -1300 -800 Number Voids 2 Output, Urine 1300 800 PATIENT WEIGHT: Weight (lb): 237 Weight (oz): 3.48 Weight (kg): 107.600 Physical Exam General appearance: alert, awake, oriented Head/eyes: atraumatic, EOMI ENT: moist mucous membranes, normal nose Neck: no JVD, no lymphadenopathy Cardiovascular: normal heart sounds, regular rate and rhythm Respiratory: aerating well, clear to auscultation Abdomen: non-tender, soft Genitourinary: no bladder distention, no flank pain Extremities: no edema, no gangrene, no swelling Diagnosis, Assessment Plan Free Text DxA P Notes Free text DxA P notes: 67-year-old male known to have hypertension, diabetes mellitus, hyperlipidemia, liver cirrhosis, chronic kidney disease who presented with shortness of breath and chest tightness and on further workup was found to have multivessel disease therefore he was being worked up for possible CABG. He said he had been diagnosed recently with chronic kidney disease but did not have any nausea, orthopnea, cramping, change of taste, involuntary movements, urinary complaints. He denied any chronic use of NSAIDs. He said for most part his blood pressures were controlled at home. Nephrology following for: 1. CKD:: Most recent creatinine was staying in normal range therefore plan is to keep mean arterial pressure above 65 and avoid nephrotoxic agents. 2. Hypertension: Mostly controlled therefore plan is to continue same. 3. Hypervolemia: Plan is to monitor input and output closely and treat with Lasix if needed. His echocardiogram showed an EF of 55 to 60%. 4. Chest pain/shortness of breath: He had been worked up with left heart cath and received contrast recently. Plan was to monitor closely for contrast- induced nephropathy and keep hydrated. at 2300 RPT #:[id number] END OF REPORT [facility] 2023-06-02 13:17:00 [facility] ([facility]) Hospitalist Progress Note REPORT#:[id number] REPORT STATUS: Signed REPORT INITIALIZATION DATE:06/02/23 TIME: 1316 PATIENT: MINDY CARTER UNIT #: [id number] ROOM/BED: [place] [id number] : 54 AGE: 67 SEX: M ATTEND: Denise Montejo MD ADM AUTHOR: Denise Montejo MD REPT SERVICE DT/TIME: 06/02/237 * ALL edits or amendments must be made on the electronic/computer document * Subjective Chief complaint: Patient seen this a.m., reports he is doing well, no acute concerns. HPI: This is a 67-year-old male with history of high blood pressure, hyperlipidemia, diabetes mellitus, syncope, neuropathy, alcohol use, liver cirrhosis, stage II CKD presents with shortness of breath that has been increasing since 2 days ago. Patient took extra dose of Aldactone and hydrochlorothiazide which did not help. Patient also reports chest tightness and is currently on 5 L of oxygen per nasal cannula. Patient says that he cannot lie down he gets short of breath when he lies down. He drinks whiskey about 3 shots a day. He has been having increasing edema in bilateral lower extremities. No headaches or dizziness. No other complaints elicited. Review of Systems All systems rev neg: except as noted Objective General VS/I O: Vital Signs: Date Time Temp Pulse Resp B/P B/P Pulse O2 O2 Flow FiO2 Mean Ox Delivery Rate 06/01 1107 98.2 85 16 124/77 92.6 95 06/01 0810 96 Nasal 5 cannula 06/01 0722 98.4 88 16 137/75 95.7 95 06/01 0513 98.6 93 15 125/74 90.9 93 Nasal 5 cannula 06/01 0247 98.1 94 16 121/73 88.9 92 Room air 06/01 0026 91 Nasal 5 cannula 06/01 0017 98.2 95 122/75 90.5 91 / 2334 98.6 92 16 122/74 90.3 91 Nasal cannula 05/31 2130 Nasal 5 cannula 05/31 2118 93 129/75 0.0 90 Nasal 4 cannula 05/31 1921 97.9 93 16 136/83 100.5 91 Nasal cannula 05/31 1619 Nasal 5 cannula 05/31 1403 97.3 89 16 144/79 24 hour I O ending at 0700: 06/01 0700 05/31 1900 Intake Total 1219.00 Output Total 1455 200 Balance -236.00 -200 Intake, IV 829.00 Intake, Oral 390 Number 0 Bowel Movements Output, Urine 1455 200 Patient 107.6 kg 109 kg Weight Weight Standing scale Stated/Reported Measurement Method PATIENT WEIGHT: Weight (lb): 237 Weight (oz): 3.48 Weight (kg): 107.600 Medications: Active Meds + DC'd Last 24 Hrs Furosemide (LASIX) 40 MG DAILY PO Atropine Sulfate (ATROPINE SULFATE 0.1MG/ML SYR) 0.5 MG ASDIR PRN IV Sodium Chloride (SODIUM CHLORIDE 0.9%) 500 ML ASDIR PRN IV Iopamidol (ISOVUE-370 100ML) 0 .STK-MED ONE IV (DC) Heparin Sodium (HEPARIN SODIUM) 0 .STK-MED ONE .ROUTE (DC) Heparin Sodium/Sodium Chloride (HEPARIN 1,000 UNITS/NS 500ML) 500 ML .STK- MED ONE IV (DC) Lidocaine HCl (LIDOCAINE HCL/PF) 0 .STK-MED ONE .ROUTE (DC) Nitroglycerin/Dextrose (NITROGLYCERIN 50,000MCG/D5W 250ML) 250 ML .STK-MED ONE IV (DC) Fentanyl Citrate (SUBLIMAZE) 0 .STK-MED ONE .ROUTE (DC) Heparin Sodium/Sodium Chloride (HEPARIN 2,000 UNITS/NS 1,000mL) 1,000 ML .STK-MED ONE IV (DC) Midazolam HCl (VERSED) 0 .STK-MED ONE .ROUTE (DC) Verapamil HCl (ISOPTIN) 0 .STK-MED ONE IV (DC) Aspirin (ASPIRIN) 81 MG DAILY PO Carvedilol (COREG) 12.5 MG Q12HR PO Amlodipine Besylate (NORVASC) 10 MG BEDTIME PO Atorvastatin Calcium (LIPITOR) 40 MG 2100 PO Doxazosin Mesylate (CARDURA) 2 MG BEDTIME PO Insulin Human Lispro (HUMALOG) 0 AC HS SUBQ Furosemide (LASIX 40 mg/4 mL INJECTION) 40 MG Q8HR IV (DC) Sodium Chloride (SODIUM CHLORIDE 0.9%) 1,000 ML .Q20H ONE IV (DC) Acetaminophen (TYLENOL) 650 MG Q4H PRN PRN PO Dextrose/Water (DEXTROSE 10% IN WATER) 125 ML ASDIR PRN IV (CKD) Dextrose/Water (DEXTROSE 10% IN WATER) 250 ML ASDIR PRN IV (CKD) Glucagon (GLUCAGON) 1 MG ASDIR PRN IM Hydralazine HCl (APRESOLINE) 10 MG Q6H PRN PRN IV Hydrocodone Bitart/Acetaminophen (NORCO 5/325) 1 TAB Q4H PRN PRN PO Morphine Sulfate (morphine SULFATE) 4 MG Q4H PRN PRN IV Ondansetron HCl (ZOFRAN) 4 MG Q4H PRN PRN IV Nitroglycerin (NITROSTAT) 0.4 MG Q5M PRN PRN SL Heparin Sodium (HEPARIN 5000 UNITS/ML) 9,000 UNIT ASDIR PRN PRN IV Heparin Sodium (HEPARIN 5000 UNITS/ML) 4,500 UNIT ASDIR PRN PRN IV Heparin Sodium (Porcine) (HEPARIN 25,000 UNITS/ 1/2NS 500ML) 500 ML ASDIR IV (CKD) Sodium Chloride (SODIUM CHLORIDE 0.9%) 1,000 ML Q24H IV Dietitian nutrition assessment The data set between the solid lines has been imported from the dietitian's assessment. BMI Calculated: 35.0 Nutrition related diagnosis: Nutrition diagnosis details: Nutrition problem: Nutrition etiology: Nutrition signs and symptoms: Nutrition prescription: Dietitian name: Assessment completed: Physical Exam General appearance: alert, awake, oriented Head/Eyes: atraumatic, clear cornea, EOMI, PERRLA Neck: normal thyroid, supple/no meningismus Cardiovascular: normal heart sounds, regular rate rhythm, no gallop, no murmur , no rub Respiratory: aerating well, clear to auscultation Abdomen: non-tender, normal bowel sounds, soft, no distention Extremities: edema, no clubbing, no cyanosis Neuro/BUSINESS AREA MANAGER: alert, oriented X 3, CNII-XII intact Results Findings/Data: Laboratory Tests 06/01 06/01 06/01 06/01 05/31 1108 1014 0722 0307 1920 Chemistry Sodium (134 - 147 mEq/L) 135 Potassium (3.4 - 5.0 mEq/L) 3.9 Chloride (100 - 108 mEq/L) 104 Carbon Dioxide (21 - 33 mEq/l) 22 Anion Gap (0 - 20) 13 BUN (7 - 25 mg/dL) 18 Creatinine (0.6 - 1.3 mg/dL) 0.9 Glomerular Filtr Rate (80 - 90) 93.0 H Glucose (77 - 141 mg/dL) 205 H POC Glucose (70 - 110 MG/DL) 252 H 222 H 113 H Calcium (8.0 - 10.5 mg/dL) 8.8 Total Bilirubin (0.0 - 1.0 mg/dL) 1.10 H Direct Bilirubin (0.1 - 0.3 MG/DL) 0.50 H Indirect Bilirubin (MG/DL) 0.60 AST (8 - 34 IUnit/L) 38 H ALT (10 - 49 IUnit/L) 29 Total Alk Phosphatase (20 - 125 128 H IUnit/L) Total Protein (6.4 - 8.2 g/dL) 7.1 Albumin (3.4 - 5.0 g/dL) 3.10 L Laboratory Tests 06/01 06/01 1014 0307 Coagulation PTT (Rashida) (25.0 - 39.5 Seconds) 71.3 H 48.0 H Laboratory Tests 06/01 0307 Hematology WBC (4.5 - 11.0 x10 3/uL) 7.7 RBC (4.00 - 5.60 x10 6/uL) 4.12 Hgb (12.5 - 16.9 g/dL) 12.4 L Hct (37.5 - 50.7 %) 38.3 MCV (81.0 - 99.0 fL) 93.0 MCH (27.0 - 33.0 pg) 30.1 MCHC (33.0 - 37.0 g/dL) 32.4 L RDW (11.5 - 14.5 %) 13.2 Plt Count (150 - 400 x10 3/uL) 157 MPV (7.0 - 9.0 fL) 12.2 H Neut % (Auto) (56.0 - 77.0 %) 80.6 H Lymph % (Auto) (14.0 - 32.0 %) 6.5 L [place] % (Auto) (4.8 - 9.0 %) 9.5 H Eos % (Auto) (0.3 - 3.7 %) 2.2 Baso % (Auto) (0.0 - 2.0 %) 0.7 Neut # (Auto) (2.0 - 7.6 x10 3/uL) 6.20 Lymph # (Auto) (1.0 - 3.8 x10 3/uL) 0.50 L [place] # (Auto) (0.1 - 0.8 x10 3/uL) 0.73 Eos # (Auto) (0.0 - 0.2 x10 3/uL) 0.17 Baso # (Auto) (0.0 - 0.2 x10 3/uL) 0.05 Abs Immat Gran (auto) (0.00 - 0.03 x10 3/uL) 0.04 H Immature Gran % (0.0 - 2.0 %) 0.5 Nucleated RBC % (0 - 0 %) 0.0 Nucleated RBCs # (Man) (0.0 - 0.1 x10 3/uL) 0.00 Diagnosis, Assessment Plan Free Text DxA P Notes Free text DxA P notes: Shortness of breath Differential diagnosis includes CHF Placed on Lasix 40 mg IV every 8 hours Cardiology consulted Echo ordered Chest tightness Possibly secondary to fluid overload Cardiology consulted Echo pending Elevated troponin Consulted cardiology On Lovenox Diabetes mellitus A1c 8.4% Sliding scale insulin as needed Hypertension Renew medications once they have been updated in the computer Check labs in the a.m. Patient does not have a living will or medical power of defense attorney Patient is a full code 06/01 multivessel disease on cath, CTS consulted, patient undergoing preop evaluation for possible CABG. Quality: [facility] Care VTE Prophylaxis VTE prophylaxis initiated: yes Current Medications Current medication review: I attest that the foregoing medication list in the medical record is true, accurate, and complete to the best of my knowledge. Advanced Care Plan 65 or Older Discussed with: patient Discussion included: living will, power of defense attorney, code status at 1318 RPT #:[id number] END OF REPORT [facility] 2023-06-02 12:05:00 [facility] ([facility]) GE Consultation Note REPORT#:[id number] REPORT STATUS: Signed REPORT INITIALIZATION DATE:06/02/23 TIME: 1205 PATIENT: MINDY CARTER UNIT #: [id number] ROOM/BED: [place] [id number] : 54 AGE: 67 SEX: M ATTEND: Denise Montejo MD ADM AUTHOR: Farideh Harris REPT SERVICE DT/TIME: 06/02/23 1205 * ALL edits or amendments must be made on the electronic/computer document * Farideh Harris 06/02/23 1205: History of Present Illness Requesting clinician: Nathaniel Martel MD Reason for consult: Cirrhosis and Pre-op CABG PCP: PCP: No Primary or Family Physician HPI: This is a 67-year-old male with a past medical history significant for cirrhosis , high blood pressure, hyperlipidemia, diabetes, history of alcohol use, and CKD stage II who presented to the hospital for worsening shortness of breath. Patient was found to have NSTEMI and CHF exacerbation. Patient underwent a heart cath and was found to have severe left main and proximal LAD stenosis. CTS was consulted for CABG versus PCI of left main/LAD. GI was consulted for patient's history of cirrhosis and preop CABG. Discussed with over the phone. reports patient was recently diagnosed with cirrhosis based on ultrasound. Ultrasound was ordered for abnormal liver labs and kidney labs. Patient had had some lab work done, was found to have hepatitis C. They have not yet established care with a GI doctor for his cirrhosis. They deny any prior history of liver disease. They do report patient drinks alcohol, approximately 2 shots of liquor/whiskey with 2 cans of soda/Coke daily. states patient may have days where he is not drinking. Recent labs significant for hemoglobin 12.4, total bilirubin 1.1, direct bilirubin 0.5, AST 38, alk phosphatase 128, and albumin 3.1. History - Adult longitudinal Additional medical history: Hypertension, hyperlipidemia, diabetes mellitus, neuropathy, syncope, alcohol use, stage II CKD, liver cirrhosis Additional surgical history: Appendectomy Additional family history: None Alcohol use: Alcohol use (3 SHOTS OF WHISKEY/DAY) Drug use: Denies recreational drugs Smoking status for patients 13 years old or older: Never Smoker Medications: Home Medications: Medication Dose/Rte/Freq Days Qty Entered Last Max Daily Dose Reviewed amLODIPine (NORVASC) 05/31/23 05/31/23 Strength: 10 MG TAB 1513 1532 ASPIRIN EC (ECOTRIN) 81 MG PO DAILY 05/31/23 05/31/23 Strength: 81 MG TAB.EC 1514 1531 CARVEDILOL (COREG) 25 MG PO BID MEALS 05/31/23 05/31/23 Strength: 25 MG TAB 1515 1531 TIRZEPATIDE 12.5 QWEEK 05/31/23 05/31/23 (MOUNJARO PEN (2mL)) 1517 1532 Strength: 2.5 MG/0.5 ML PEN.INJCTR metFORMIN (GLUCOPHAGE) 500 MG PO BID 05/31/23 05/31/23 Strength: 500 MG TAB 1517 1531 glyBURIDE (DIABETA) 5 MG PO DAILY 05/31/23 05/31/23 Strength: 5 MG TAB 1518 1531 PANTOPRAZOLE 40 MG IV DAILY 05/31/23 05/31/23 (PROTONIX IV) 1518 1532 Strength: 40 MG VIAL PRAVASTATIN (PRAVACHOL) 05/31/23 05/31/23 Strength: 40 MG TAB 1523 1532 GABAPENTIN (NEURONTIN) 100 MG 05/31/23 05/31/23 Strength: 100 MG CAP 1524 1532 TERAZOSIN (HYTRIN) 2 MG BEDTIME 05/31/23 05/31/23 Strength: 1 MG CAP 1525 1531 HYDROCHLOROTHIAZIDE 50 MG DAILY 05/31/23 05/31/23 (HCTZ) 1526 1531 Strength: 12.5 MG CAP SPIRONOLACTONE 25 MG PO QAM 05/31/23 05/31/23 (ALDACTONE) 1526 1531 Strength: 25 MG TAB CHOLECALCIFEROL 05/31/23 05/31/23 (VITAMIN D3) 1528 1532 (VITAMIN D3) Strength: 125 MCG (5,000 UNIT) TAB DOXEPIN (SINEquan) 10 MG 05/31/23 05/31/23 Strength: 10 MG CAP 1529 1532 AZELASTINE 1 SPRAY NASAL BID 05/31/23 05/31/23 (ASTELIN NASAL) 1529 1531 Strength: 137 MCG (0.1 %) SPRAY 2 PUFF INH BID 05/31/23 05/31/23 Budesonide/Glycopyr/Formote rol (BREZTRI AEROSPHERE 1530 1531 INH) Strength: 160 MCG-9 MCG-4.8 MCG/ACTUATION HFA.AER.AD MONTEL[place]AST (SINGULAIR) 05/31/23 05/31/23 Strength: 10 MG TAB 1530 1532 Current Hospital Medications: Autonomic Drugs Sig/Norris Start time Last Medication Dose Route Stop Time Status Admin Atropine Sulfate 0.5 MG ASDIR PRN 05/31 1745 AC (ATROPINE SULFATE IV 06/01 1733 0.1MG/ML SYR) Blood Formation,Coagulation Sig/Norris Start time Last Medication Dose Route Stop Time Status Admin Heparin Sodium 0 .STK-MED ONE 05/31 1639 DC 05/31 (HEPARIN SODIUM) .ROUTE 1646 Heparin Sodium/ 500 ML .STK-MED ONE 05/31 1639 DC 05/31 Sodium Chloride IV 1646 (HEPARIN 1,000 UNITS/ NS 500ML) Heparin Sodium/ 1,000 ML .STK-MED ONE 05/31 1638 DC 05/31 Sodium Chloride IV 1646 (HEPARIN 2,000 UNITS/ NS 1,000mL) Heparin Sodium 9,000 UNIT ASDIR PRN PRN 05/30 1300 AC (HEPARIN 5000 UNITS/ IV 08/28 1259 ML) Heparin Sodium 4,500 UNIT ASDIR PRN PRN 05/30 1300 AC 06/01 (HEPARIN 5000 UNITS/ IV 08/28 1259 0404 ML) Heparin Sodium 500 ML ASDIR 05/30 1300 CKD 05/31 (Porcine) IV 08/28 125 2112 (HEPARIN 25,000 UNITS/ 1/2NS 500ML) Cardiovascular Drugs Sig/Norris Start time Last Medication Dose Route Stop Time Status Admin Lidocaine HCl 0 .STK-MED ONE 05/31 163 DC 05/31 (LIDOCAINE HCL/PF) .ROUTE 164 Nitroglycerin/ 250 ML .STK-MED ONE 05/31 1639 DC 05/31 Dextrose IV 164 (NITROGLYCERIN 50,000MCG/D5W 250ML) Verapamil HCl 0 .STK-MED ONE 05/31 163 DC 05/31 (ISOPTIN) IV 164 Carvedilol 12.5 MG Q12HR 05/31 0900 AC 06/01 (COREG) PO 08/29 0859 0837 Amlodipine Besylate 10 MG BEDTIME 05/30 2100 AC 05/31 (NORVASC) PO 08/28 2058 211 Atorvastatin Calcium 40 MG 2100 05/30 2100 AC 05/31 (LIPITOR) PO 06/29 2058 211 Doxazosin Mesylate 2 MG BEDTIME 05/30 2100 AC 05/31 (CARDURA) PO 08/28 Hydralazine HCl 10 MG Q6H PRN PRN 05/30 1700 AC (APRESOLINE) IV 08/28 1659 Nitroglycerin 0.4 MG Q5M PRN PRN 05/30 1345 AC (NITROSTAT) SL 08/28 1344 Central Nervous System Agents Sig/Norris Start time Last Medication Dose Route Stop Time Status Admin Fentanyl Citrate 0 .STK-MED ONE 05/31 1638 DC 05/31 (SUBLIMAZE) .ROUTE 164 Midazolam HCl 0 .STK-MED ONE 05/31 1638 DC 05/31 (VERSED) .ROUTE 1646 Aspirin 81 MG DAILY 05/31 0900 AC 06/01 (ASPIRIN) PO 08/29 0859 0837 Acetaminophen 650 MG Q4H PRN PRN 05/30 1700 AC (TYLENOL) PO 08/28 1659 Hydrocodone Bitart/ 1 TAB Q4H PRN PRN 05/30 1700 AC Acetaminophen PO 06/04 1659 (NORCO 5/325) Morphine Sulfate 4 MG Q4H PRN PRN 05/30 1700 AC (morphine SULFATE) IV 06/04 1659 Diagnostic Agents Sig/Norris Start time Last Medication Dose Route Stop Time Status Admin Iopamidol 0 .STK-MED ONE 05/31 1640 DC 05/31 (ISOVUE-370 100ML) IV 1646 Electrolytic, Caloric, And Yuli Sig/Norris Start time Last Medication Dose Route Stop Time Status Admin Furosemide 40 MG DAILY 06/02 0900 AC (LASIX) PO 08/31 0859 Sodium Chloride 500 ML ASDIR PRN 05/31 1745 AC (SODIUM CHLORIDE IV 06/01 1733 0.9%) Furosemide 40 MG Q8HR 05/30 2000 DC 06/01 (LASIX 40 mg/4 mL IV 08/28 1359 0513 INJECTION) Dextrose/Water 125 ML ASDIR PRN 05/30 1700 CKD (DEXTROSE 10% IN IV 08/28 1659 WATER) Dextrose/Water 250 ML ASDIR PRN 05/30 1700 CKD (DEXTROSE 10% IN IV 08/28 1659 WATER) Sodium Chloride 1,000 ML Q24H 05/30 1300 AC 06/01 (SODIUM CHLORIDE IV 08/28 1259 1057 0.9%) Gastrointestinal Drugs Sig/Norris Start time Last Medication Dose Route Stop Time Status Admin Ondansetron HCl 4 MG Q4H PRN PRN 05/30 1700 AC (ZOFRAN) IV 08/28 1659 Hormones And Synthetic Substit Sig/Norris Start time Last Medication Dose Route Stop Time Status Admin Insulin Human Lispro 0 AC HS 05/30 2100 AC 06/01 (HUMALOG) SUBQ 08/28 2058 0836 Glucagon 1 MG ASDIR PRN 05/30 1700 AC (GLUCAGON) IM 08/28 165 Allergies: Coded Allergies: No Known Allergies (05/31/23) Review of Systems Constitutional: Denies: chills, fever. Respiratory: Reports: SOB. Cardiovascular: Denies: chest pain. GI: Denies: abdominal pain, anorexia, constipation, diarrhea, dysphagia, GERD, hematemesis, hematochezia, hiatal hernia, melena, nausea, rectal pain, vomiting. Neuro: Denies: headache. Objective Physical Exam VS/I O: Last Documented: Result Date Time Pulse Ox 95 06/01 1107 B/P 124/77 06/01 110 B/P Mean 92.6 06/01 1106 Temp 36.8 06/01 110 Pulse 85 06/01 1106 Resp 16 06/01 110 O2 Delivery Nasal cannula 06/01 0810 O2 Flow Rate 5 06/01 0810 24 hour I O ending at 0700: 06/01 0700 05/31 1900 Intake Total 1219.00 Output Total 1455 200 Balance -236.00 -200 Intake, IV 829.00 Intake, Oral 390 Number 0 Bowel Movements Output, Urine 1455 200 Patient 107.6 kg 109 kg Weight Weight Standing scale Stated/Reported Measurement Method PATIENT WEIGHT: Weight (lb): 237 Weight (oz): 3.48 Weight (kg): 107.600 Medications: Active Meds + DC'd Last 24 Hrs Furosemide (LASIX) 40 MG DAILY PO Atropine Sulfate (ATROPINE SULFATE 0.1MG/ML SYR) 0.5 MG ASDIR PRN IV Sodium Chloride (SODIUM CHLORIDE 0.9%) 500 ML ASDIR PRN IV Iopamidol (ISOVUE-370 100ML) 0 .STK-MED ONE IV (DC) Heparin Sodium (HEPARIN SODIUM) 0 .STK-MED ONE .ROUTE (DC) Heparin Sodium/Sodium Chloride (HEPARIN 1,000 UNITS/NS 500ML) 500 ML .STK- MED ONE IV (DC) Lidocaine HCl (LIDOCAINE HCL/PF) 0 .STK-MED ONE .ROUTE (DC) Nitroglycerin/Dextrose (NITROGLYCERIN 50,000MCG/D5W 250ML) 250 ML .STK-MED ONE IV (DC) Fentanyl Citrate (SUBLIMAZE) 0 .STK-MED ONE .ROUTE (DC) Heparin Sodium/Sodium Chloride (HEPARIN 2,000 UNITS/NS 1,000mL) 1,000 ML .STK-MED ONE IV (DC) Midazolam HCl (VERSED) 0 .STK-MED ONE .ROUTE (DC) Verapamil HCl (ISOPTIN) 0 .STK-MED ONE IV (DC) Aspirin (ASPIRIN) 81 MG DAILY PO Carvedilol (COREG) 12.5 MG Q12HR PO Amlodipine Besylate (NORVASC) 10 MG BEDTIME PO Atorvastatin Calcium (LIPITOR) 40 MG 2100 PO Doxazosin Mesylate (CARDURA) 2 MG BEDTIME PO Insulin Human Lispro (HUMALOG) 0 AC HS SUBQ Furosemide (LASIX 40 mg/4 mL INJECTION) 40 MG Q8HR IV (DC) Acetaminophen (TYLENOL) 650 MG Q4H PRN PRN PO Dextrose/Water (DEXTROSE 10% IN WATER) 125 ML ASDIR PRN IV (CKD) Dextrose/Water (DEXTROSE 10% IN WATER) 250 ML ASDIR PRN IV (CKD) Glucagon (GLUCAGON) 1 MG ASDIR PRN IM Hydralazine HCl (APRESOLINE) 10 MG Q6H PRN PRN IV Hydrocodone Bitart/Acetaminophen (NORCO 5/325) 1 TAB Q4H PRN PRN PO Morphine Sulfate (morphine SULFATE) 4 MG Q4H PRN PRN IV Ondansetron HCl (ZOFRAN) 4 MG Q4H PRN PRN IV Nitroglycerin (NITROSTAT) 0.4 MG Q5M PRN PRN SL Heparin Sodium (HEPARIN 5000 UNITS/ML) 9,000 UNIT ASDIR PRN PRN IV Heparin Sodium (HEPARIN 5000 UNITS/ML) 4,500 UNIT ASDIR PRN PRN IV Heparin Sodium (Porcine) (HEPARIN 25,000 UNITS/ 1/2NS 500ML) 500 ML ASDIR IV (CKD) Sodium Chloride (SODIUM CHLORIDE 0.9%) 1,000 ML Q24H IV General appearance: alert, awake, oriented HEENT: atraumatic, normocephalic Neck: full range of motion Cardiovascular: normal S1/S2, regular rate rhythm Respiratory: symmetric expansion, no distress Abdomen: non-tender, normal bowel sounds, soft, no distention, no guarding Extremities: moves all Musculoskeletal: normal inspection Neuro/BUSINESS AREA MANAGER: alert, oriented X 3, normal speech Skin: dry, intact, normal color Psychiatry: normal affect, normal judgment/insight, normal mood Results Findings/Data: Laboratory Tests 06/02/23 0307: [Embedded Image Not Available] Laboratory Tests 06/01 06/01 06/01 06/01 05/31 1108 1014 0722 0307 1920 Chemistry Sodium (134 - 147 mEq/L) 135 Potassium (3.4 - 5.0 mEq/L) 3.9 Chloride (100 - 108 mEq/L) 104 Carbon Dioxide (21 - 33 mEq/l) 22 Anion Gap (0 - 20) 13 BUN (7 - 25 mg/dL) 18 Creatinine (0.6 - 1.3 mg/dL) 0.9 Glomerular Filtr Rate (80 - 90) 93.0 H Glucose (77 - 141 mg/dL) 205 H POC Glucose (70 - 110 MG/DL) 252 H 222 H 113 H Calcium (8.0 - 10.5 mg/dL) 8.8 Total Bilirubin (0.0 - 1.0 mg/dL) 1.10 H Direct Bilirubin (0.1 - 0.3 MG/DL) 0.50 H Indirect Bilirubin (MG/DL) 0.60 AST (8 - 34 IUnit/L) 38 H ALT (10 - 49 IUnit/L) 29 Total Alk Phosphatase (20 - 125 IUnit/L) 128 H Total Protein (6.4 - 8.2 g/dL) 7.1 Albumin (3.4 - 5.0 g/dL) 3.10 L Laboratory Tests 06/01 06/01 1014 0307 Coagulation PTT (Rashida) (25.0 - 39.5 Seconds) 71.3 H 48.0 H Laboratory Tests 06/01 0307 Hematology WBC (4.5 - 11.0 x10 3/uL) 7.7 RBC (4.00 - 5.60 x10 6/uL) 4.12 Hgb (12.5 - 16.9 g/dL) 12.4 L Hct (37.5 - 50.7 %) 38.3 MCV (81.0 - 99.0 fL) 93.0 MCH (27.0 - 33.0 pg) 30.1 MCHC (33.0 - 37.0 g/dL) 32.4 L RDW (11.5 - 14.5 %) 13.2 Plt Count (150 - 400 x10 3/uL) 157 MPV (7.0 - 9.0 fL) 12.2 H Neut % (Auto) (56.0 - 77.0 %) 80.6 H Lymph % (Auto) (14.0 - 32.0 %) 6.5 L [place] % (Auto) (4.8 - 9.0 %) 9.5 H Eos % (Auto) (0.3 - 3.7 %) 2.2 Baso % (Auto) (0.0 - 2.0 %) 0.7 Neut # (Auto) (2.0 - 7.6 x10 3/uL) 6.20 Lymph # (Auto) (1.0 - 3.8 x10 3/uL) 0.50 L [place] # (Auto) (0.1 - 0.8 x10 3/uL) 0.73 Eos # (Auto) (0.0 - 0.2 x10 3/uL) 0.17 Baso # (Auto) (0.0 - 0.2 x10 3/uL) 0.05 Abs Immat Gran (auto) (0.00 - 0.03 x10 3/uL) 0.04 H Immature Gran % (0.0 - 2.0 %) 0.5 Nucleated RBC % (0 - 0 %) 0.0 Nucleated RBCs # (Man) (0.0 - 0.1 x10 3/uL) 0.00 Results: labs reviewed, vital signs reviewed Diagnosis, Assessment Plan Problem List/A P: 1. Cirrhosis 2. Hepatitis C 3. Elevated LFTs 4. CHF exacerbation Free Text DxA P Notes Free Text DxA P Notes: 67-year-old male who was found to have cirrhosis on ultrasound at an outside facility. An abdominal ultrasound has been ordered here and remains pending. Recommendations: 1. Monitor LFTs 2. Repeat INR in a.m. 3. Abdominal ultrasound pending 4. Will calculate MELD score based on tomorrow's lab work 5. History of hepatitis C, will rescreen hepatitis panel 6. Daily alcohol use, monitor for withdrawal symptoms, MVI and thiamine; encouraged cessation 7. Further recommendations may follow Attestations Attestation needed: supervising physician Rigoberto Jarrell 06/02/23 2158: Diagnosis, Assessment Plan Problem List/A P: 1. Alcohol dependence Attestations Physician Attestation Agree w/findings plan: Agree with the findings and plan as documented by RAHUL Tobias. at 1418 at 2200 RPT #:[id number] END OF REPORT [facility] 2023-06-02 10:53:00 [facility] ([facility]) Cardiology Progress Note REPORT#:[id number] REPORT STATUS: Signed REPORT INITIALIZATION DATE:06/02/23 TIME: 1053 PATIENT: MINDY CARTER UNIT #: [id number] ROOM/BED: [place] [id number] : 54 AGE: 67 SEX: M ATTEND: Denise Montejo MD ADM AUTHOR: Clayton Nathan MD REPT SERVICE DT/TIME: 06/02/23 1053 * ALL edits or amendments must be made on the electronic/computer document * Subjective Free Text Subj Notes Free Text Subj Notes: Cardiology progress note Date of service: 06/02/2023 Chief complaint/reason for consult: NSTEMI Patient seen and examined, chart reviewed, questions/concerns addressed with RN. Current medication and vitals reviewed. HPI and interval Hx: Coronary angiogram showed severe left main/LAD stenosis, CTS consulted Subjective: No chest pain today Objective: Vital Signs Date Temp Pulse Resp B/P B/P Mean Pulse Ox FiO2 05/31-06/01 97.3-98.6 88-95 15-17 121-144/73-83 0.0-100.5 90-95 GEN: Alert and cooperative, no acute distress. HEENT: NC/AT, EOMI CARD: RRR, normal S1/S2 LUNGS: CTA w/o added sounds, GBAE. EXT: No obvious deformities. No edema. Peripheral pulses intact NEURO: AOx4, CN II-XII grossly intact. SKIN: Warm and dry, no rashes/lesions. PSYCH: AOx4. Appropriate mood and affect Assessment, Impression and medical decision making: -NSTEMI -Acute on chronic diastolic congestive heart -Morbid obesity -Hypertension, hyperlipidemia, type 2 diabetes mellitus Plan/recommendation: -Coronary angiogram showed left main/LAD stenosis -Heart team approach and consult CTS for CABG versus PCI evaluation -Resume heparin drip, continue with aspirin statin and beta-blockers at 1053 RPT #:[id number] END OF REPORT [facility] 2023-06-02 08:17:00 [facility] Cardiothoracic Surgery Consult REPORT#:[id number] REPORT STATUS: Signed REPORT INITIALIZATION DATE:06/02/23 TIME: 816 PATIENT: MINDY CARTER UNIT #: [id number] ROOM/BED: [place] [id number] : 54 AGE: 67 SEX: M ATTEND: Kimmie Bacon MD ADM AUTHOR: Nathaniel Martel MD REPT SERVICE DT/TIME: 06/02/23 0817 * ALL edits or amendments must be made on the electronic/computer document * History of Present Illness HPI Chief complaint: Chest tightness and shortness of breath for past 2 days PCP: PCP: No Primary or Family Physician HPI: This is a 67-year-old gentleman with a past medical history of hypertension, hyperlipidemia, diabetes, neuropathy, alcohol use, liver cirrhosis, kidney disease, syncope who came to the hospital with shortness of breath and chest tightness for 2 days. Patient describes significant orthopnea and increasing edema in bilateral lower extremities that brought the patient to the hospital. Initial workup positive for mildly elevated troponin and elevated BNP and was diagnosed with NSTEMI and CHF exacerbation with acute hypoxic respiratory failure. Patient then underwent cardiac catheterization for elevated troponin. CV surgery was consulted for multivessel coronary artery disease found on angiogram. History Additional Medical History: Hypertension, hyperlipidemia, diabetes mellitus, neuropathy, syncope, alcohol use, stage II CKD, liver cirrhosis Additional Surgical History: Appendectomy Alcohol Use Alcohol use (3 SHOTS OF WHISKEY/DAY) Drug Use Denies recreational drugs Smoking status for patients 13 years old or older: Never Smoker Medications: Home Medications: Medication Dose/Rte/Freq Days Qty Entered Last Max Daily Dose Reviewed amLODIPine (NORVASC) 05/31/23 05/31/23 Strength: 10 MG TAB 1513 1532 ASPIRIN EC (ECOTRIN) 81 MG PO DAILY 05/31/23 05/31/23 Strength: 81 MG TAB.EC 1514 1531 CARVEDILOL (COREG) 25 MG PO BID MEALS 05/31/23 05/31/23 Strength: 25 MG TAB 1515 1531 TIRZEPATIDE 12.5 QWEEK 05/31/23 05/31/23 (MOUNJARO PEN (2mL)) 1517 1532 Strength: 2.5 MG/0.5 ML PEN.INJCTR metFORMIN (GLUCOPHAGE) 500 MG PO BID 05/31/23 05/31/23 Strength: 500 MG TAB 1517 1531 glyBURIDE (DIABETA) 5 MG PO DAILY 05/31/23 05/31/23 Strength: 5 MG TAB 1518 1531 PANTOPRAZOLE 40 MG IV DAILY 05/31/23 05/31/23 (PROTONIX IV) 1518 1532 Strength: 40 MG VIAL PRAVASTATIN (PRAVACHOL) 05/31/23 05/31/23 Strength: 40 MG TAB 1523 1532 GABAPENTIN (NEURONTIN) 100 MG 05/31/23 05/31/23 Strength: 100 MG CAP 1524 1532 TERAZOSIN (HYTRIN) 2 MG BEDTIME 05/31/23 05/31/23 Strength: 1 MG CAP 1525 1531 HYDROCHLOROTHIAZIDE 50 MG DAILY 05/31/23 05/31/23 (HCTZ) 1526 1531 Strength: 12.5 MG CAP SPIRONOLACTONE 25 MG PO QAM 05/31/23 05/31/23 (ALDACTONE) 1526 1531 Strength: 25 MG TAB CHOLECALCIFEROL 05/31/23 05/31/23 (VITAMIN D3) 1528 1532 (VITAMIN D3) Strength: 125 MCG (5,000 UNIT) TAB DOXEPIN (SINEquan) 10 MG 05/31/23 05/31/23 Strength: 10 MG CAP 1529 1532 AZELASTINE 1 SPRAY NASAL BID 05/31/23 05/31/23 (ASTELIN NASAL) 1529 1531 Strength: 137 MCG (0.1 %) SPRAY 2 PUFF INH BID 05/31/23 05/31/23 Budesonide/Glycopyr/Formote rol (BREZTRI AEROSPHERE 1530 1531 INH) Strength: 160 MCG-9 MCG-4.8 MCG/ACTUATION HFA.AER.AD MONT[place]AST (SINGULAIR) 05/31/23 05/31/23 Strength: 10 MG TAB 1530 1532 Current Hospital Medications: Autonomic Drugs Sig/Norris Start time Last Medication Dose Route Stop Time Status Admin Atropine Sulfate 0.5 MG ASDIR PRN 05/31 1745 AC (ATROPINE SULFATE IV 06/01 1733 0.1MG/ML SYR) Blood Formation,Coagulation Sig/Norris Start time Last Medication Dose Route Stop Time Status Admin Heparin Sodium 0 .STK-MED ONE 05/31 163 DC 05/31 (HEPARIN SODIUM) .ROUTE 1646 Heparin Sodium/ 500 ML .STK-MED ONE 05/31 1639 DC 05/31 Sodium Chloride IV 1646 (HEPARIN 1,000 UNITS/ NS 500ML) Heparin Sodium/ 1,000 ML .STK-MED ONE 05/31 1638 DC 05/31 Sodium Chloride IV 1646 (HEPARIN 2,000 UNITS/ NS 1,000mL) Heparin Sodium 9,000 UNIT ASDIR PRN PRN 05/30 1300 AC (HEPARIN 5000 UNITS/ IV 08/28 1259 ML) Heparin Sodium 4,500 UNIT ASDIR PRN PRN 05/30 1300 AC 06/01 (HEPARIN 5000 UNITS/ IV 08/28 1259 0404 ML) Heparin Sodium 500 ML ASDIR 05/30 1300 CKD 05/31 (Porcine) IV 08/28 1259 2112 (HEPARIN 25,000 UNITS/ 1/2NS 500ML) Cardiovascular Drugs Sig/Norris Start time Last Medication Dose Route Stop Time Status Admin Lidocaine HCl 0 .STK-MED ONE 05/31 1639 DC 05/31 (LIDOCAINE HCL/PF) .ROUTE 1646 Nitroglycerin/ 250 ML .STK-MED ONE 05/31 1639 DC 05/31 Dextrose IV 1646 (NITROGLYCERIN 50,000MCG/D5W 250ML) Verapamil HCl 0 .STK-MED ONE 05/31 1638 DC 05/31 (ISOPTIN) IV 1646 Carvedilol 12.5 MG Q12HR 05/31 0900 AC 06/01 (COREG) PO 08/29 0859 0837 Amlodipine Besylate 10 MG BEDTIME 05/30 2100 AC 05/31 (NORVASC) PO 08/28 Atorvastatin Calcium 40 MG 2100 05/30 2099 AC 05/31 (LIPITOR) PO 06/29 2058 211 Doxazosin Mesylate 2 MG BEDTIME 05/30 2100 AC 05/31 (CARDURA) PO 08/28 2058 211 Hydralazine HCl 10 MG Q6H PRN PRN 05/30 1700 AC (APRESOLINE) IV 08/28 1659 Nitroglycerin 0.4 MG Q5M PRN PRN 05/30 1345 AC (NITROSTAT) SL 08/28 1344 Central Nervous System Agents Sig/Norris Start time Last Medication Dose Route Stop Time Status Admin Fentanyl Citrate 0 .STK-MED ONE 05/31 1638 DC 05/31 (SUBLIMAZE) .ROUTE 1646 Midazolam HCl 0 .STK-MED ONE 05/31 1638 DC 05/31 (VERSED) .ROUTE 1646 Aspirin 81 MG DAILY 05/31 0900 AC 06/01 (ASPIRIN) PO 08/29 0859 0837 Acetaminophen 650 MG Q4H PRN PRN 05/30 1700 AC (TYLENOL) PO 08/28 165 Hydrocodone Bitart/ 1 TAB Q4H PRN PRN 05/30 1700 AC Acetaminophen PO 06/04 1659 (NORCO 5/325) Morphine Sulfate 4 MG Q4H PRN PRN 05/30 1700 AC (morphine SULFATE) IV 06/04 1659 Diagnostic Agents Sig/Norris Start time Last Medication Dose Route Stop Time Status Admin Iopamidol 0 .STK-MED ONE 05/31 1640 DC 05/31 (ISOVUE-370 100ML) IV 1646 Electrolytic, Caloric, And Yuli Sig/Norris Start time Last Medication Dose Route Stop Time Status Admin Sodium Chloride 500 ML ASDIR PRN 05/31 1745 AC (SODIUM CHLORIDE IV 06/01 1733 0.9%) Furosemide 40 MG Q8HR 05/30 2000 AC 06/01 (LASIX 40 mg/4 mL IV 08/28 1359 0513 INJECTION) Sodium Chloride 1,000 ML .Q20H ONE 05/30 1800 DC (SODIUM CHLORIDE IV 05/31 1359 0.9%) Dextrose/Water 125 ML ASDIR PRN 05/30 1700 CKD (DEXTROSE 10% IN IV 08/28 1659 WATER) Dextrose/Water 250 ML ASDIR PRN 05/30 1700 CKD (DEXTROSE 10% IN IV 08/28 1659 WATER) Sodium Chloride 1,000 ML Q24H 05/30 1300 AC 05/31 (SODIUM CHLORIDE IV 08/28 1259 2118 0.9%) Gastrointestinal Drugs Sig/Norris Start time Last Medication Dose Route Stop Time Status Admin Ondansetron HCl 4 MG Q4H PRN PRN 05/30 1700 AC (ZOFRAN) IV 08/28 1659 Hormones And Synthetic Substit Sig/Norris Start time Last Medication Dose Route Stop Time Status Admin Insulin Human Lispro 0 AC HS 05/30 2100 AC 06/01 (HUMALOG) SUBQ 08/28 205 0836 Glucagon 1 MG ASDIR PRN 05/30 1700 AC (GLUCAGON) IM 08/28 1659 Allergies: Coded Allergies: No Known Allergies (05/31/23) Pt reports no significant: family history Review of Systems Review of Systems All systems rev neg: except as marked Free Text ROS Notes Free Text ROS Notes: Constitutional: Negative for fever, chills, weight loss Skin: Negative for rash, negative for swelling, negative for any laceration HEENT: Denies hearing loss, denies any ear ringing, denies any earache, denies any sore throat Respiratory: Denies dyspnea on exertion, denies hemoptysis denies any cough, denies any shortness of breath Cardiac: Denies active chest pain, denies palpitations, denies orthopnea GI: Denies constipation, denies diarrhea : Denies hematuria, denies dysuria, denies flank pain Musculoskeletal: Denies any joint pain, denies any joint swelling, denies any myalgia Hematologic: Denies any easy bruising, denies any bleeding Endocrine: denies any night sweats, denies polyuria OR polydipsia Neurologic: Denies any lightheaded, denies any headache, denies any confusion, denies any dizziness Objective Physical Exam VS/I O: Last Documented: Result Date Time Pulse Ox 95 06/01 721 B/P 137/75 06/01 721 B/P Mean 95.7 06/01 721 Temp 36.9 06/01 721 Pulse 88 06/01 721 Resp 16 06/01 721 O2 Delivery Nasal cannula 06/01 05 O2 Flow Rate 5 06/01 0513 24 hour I O ending at 0700: 06/01 0700 05/31 1900 Intake Total 1219.00 Output Total 1455 200 Balance -236.00 -200 Intake, IV 829.00 Intake, Oral 390 Number 0 Bowel Movements Output, Urine 1455 200 Patient 107.6 kg 109 kg Weight Weight Standing scale Stated/Reported Measurement Method PATIENT WEIGHT: Weight (lb): 237 Weight (oz): 3.48 Weight (kg): 107.600 General appearance: alert, awake, oriented HEENT: anicteric, mucosal membranes moist, pupils reactive to light Neck: full range of motion, non-tender Cardiovascular: normal heart sounds, regular rate rhythm Respiratory: aerating well, symmetric expansion Abdomen: soft, non-tender Genitourinary: no bladder distention, no flank pain, no urinary catheter Extremities: dry, moves all Musculoskeletal: full range of motion, painless range of motion Neuro/BUSINESS AREA MANAGER: alert, oriented X 3 Skin: dry, intact Psychiatry: normal affect, normal mood Results Findings/Data: Laboratory Tests 06/01 0307 1920 1104 Chemistry Sodium (134 - 147 mEq/L) 135 Potassium (3.4 - 5.0 mEq/L) 3.9 Chloride (100 - 108 mEq/L) 104 Carbon Dioxide (21 - 33 mEq/l) 22 Anion Gap (0 - 20) 13 BUN (7 - 25 mg/dL) 18 Creatinine (0.6 - 1.3 mg/dL) 0.9 Glomerular Filtr Rate (80 - 90) 93.0 H Glucose (77 - 141 mg/dL) 205 H POC Glucose (70 - 110 MG/DL) 222 H 113 H 160 H Calcium (8.0 - 10.5 mg/dL) 8.8 Laboratory Tests 06/01 306 Coagulation PTT ([place]) (25.0 - 39.5 Seconds) 48.0 H Laboratory Tests 06/01 306 Hematology WBC (4.5 - 11.0 x10 3/uL) 7.7 RBC (4.00 - 5.60 x10 6/uL) 4.12 Hgb (12.5 - 16.9 g/dL) 12.4 L Hct (37.5 - 50.7 %) 38.3 MCV (81.0 - 99.0 fL) 93.0 MCH (27.0 - 33.0 pg) 30.1 MCHC (33.0 - 37.0 g/dL) 32.4 L RDW (11.5 - 14.5 %) 13.2 Plt Count (150 - 400 x10 3/uL) 157 MPV (7.0 - 9.0 fL) 12.2 H Neut % (Auto) (56.0 - 77.0 %) 80.6 H Lymph % (Auto) (14.0 - 32.0 %) 6.5 L [place] % (Auto) (4.8 - 9.0 %) 9.5 H Eos % (Auto) (0.3 - 3.7 %) 2.2 Baso % (Auto) (0.0 - 2.0 %) 0.7 Neut # (Auto) (2.0 - 7.6 x10 3/uL) 6.20 Lymph # (Auto) (1.0 - 3.8 x10 3/uL) 0.50 L [place] # (Auto) (0.1 - 0.8 x10 3/uL) 0.73 Eos # (Auto) (0.0 - 0.2 x10 3/uL) 0.17 Baso # (Auto) (0.0 - 0.2 x10 3/uL) 0.05 Abs Immat Gran (auto) (0.00 - 0.03 x10 3/uL) 0.04 H Immature Gran % (0.0 - 2.0 %) 0.5 Nucleated RBC % (0 - 0 %) 0.0 Nucleated RBCs # (Man) (0.0 - 0.1 x10 3/uL) 0.00 Results: labs reviewed, vital signs reviewed, vital signs stable, current med profile rev'd Free Text Obj Notes Free Text Obj Notes: General: well nourished, well groomed, no acute distress. HEENT: conjunctiva clear, extraocular movement intact, PERRLA, Neck: no, JVD, trachea midline, no, lymphadenopathy, neck supple, normal ROM. Respiratory: Clear to auscultation, no distress. Cardiovascular: regular rate and rhythm, S1, S2, normal, without murmurs, rubs or gallops, pulses, palpable, symetric. Abdomen: Soft, non tender. No rebound. No guarding Extremities: +1 edema bilaterally. dry, moves all. Musculoskeletal: Full range of motion, no CVA tenderness, no muscle spasm Skin: warm, dry, no, lesions, rash. Neurologic: Alert and oriented x3. Psychiatric: affect and demeanor normal Diagnosis, Assessment Plan Free Text A P: This is a 67-year-old gentleman with a past medical history of hypertension, hyperlipidemia, diabetes, neuropathy, alcohol use, liver cirrhosis, kidney disease, syncope who came to the hospital with shortness of breath and chest tightness for 2 days. Patient describes significant orthopnea and increasing edema in bilateral lower extremities that brought the patient to the hospital. Initial workup positive for mildly elevated troponin and elevated BNP and was diagnosed with NSTEMI and CHF exacerbation with acute hypoxic respiratory failure. Patient then underwent cardiac catheterization for elevated troponin. CV surgery was consulted for multivessel coronary artery disease found on angiogram. 1. multivessel disease -Patient underwent cardiac angiogram: Left main-proximal to mid 60 to 70% stenosis LAD-ostial LAD 90% stenosis Left circumflex-patent RCA-mild 30 to 40% mid stenosis EF 55 to 60% Wall motion is normal, grade 1 diastolic dysfunction, normal systolic function. Mitral valve: Moderately calcified with leaflet thickening. Moderate stenosis. Mild regurgitation. Aortic valve: Thickening and sclerosis 2. Liver disease -Patient recently diagnosed. Patient does not live local to [place]. Will consult gastroenterology to see patient. -EtOH cessation 3. Chronic kidney disease -Patient does not live local to [place]. Will consult nephrology to see patient. Patient will be presented at complex cardiology conference on Wednesday. Further recommendations to follow. Thank you for this kind consultation. Quality: Trauma Gen Surg Advanced Care Plan 65 or Older Discussed with: patient Discussion included: living will, power of defense attorney, code status Current Medications Current medication review: I attest that the foregoing medication list in the medical record is true, accurate, and complete to the best of my knowledge. VTE Prophylaxis - General VTE prophylaxis initiated: yes at 1010 RPT #:[id number] END OF REPORT [facility] 2023-06-01 23:52:00 [facility] ([facility] Hospitalist Progress Note REPORT#:[id number] REPORT STATUS: Signed REPORT INITIALIZATION DATE:06/01/23 TIME: 2351 PATIENT: MINDY CARTER UNIT #: [id number] ROOM/BED: [place] [id number] : 54 AGE: 67 SEX: M ATTEND: Eleonora Mai MD ADM AUTHOR: Eleonora Mai MD REPT SERVICE DT/TIME: 06/01/232351 * ALL edits or amendments must be made on the electronic/computer document * Subjective Chief complaint: Shortness of breath HPI: This is a 67-year-old male with history of high blood pressure, hyperlipidemia, diabetes mellitus, syncope, neuropathy, alcohol use, liver cirrhosis, stage II CKD presents with shortness of breath that has been increasing since 2 days ago. Patient took extra dose of Aldactone and hydrochlorothiazide which did not help. Patient also reports chest tightness and is currently on 5 L of oxygen per nasal cannula. Patient says that he cannot lie down he gets short of breath when he lies down. He drinks whiskey about 3 shots a day. He has been having increasing edema in bilateral lower extremities. No headaches or dizziness. No other complaints elicited. Objective General VS/I O: Vital Signs: Date Time Temp Pulse Resp B/P B/P Pulse O2 O2 Flow FiO2 Mean Ox Delivery Rate 05/31 2334 98.6 92 16 122/74 90.3 91 Nasal cannula / 2130 Nasal 5 cannula 05/31 2118 93 129/75 0.0 90 Nasal 4 cannula / 1921 97.9 93 16 136/83 100.5 91 Nasal cannula / 1619 Nasal 5 cannula / 1403 97.3 89 16 144/79 / 1105 92 17 129/79 95.5 92 /05 0832 90 Nasal 3 cannula / 0741 98.1 91 17 137/83 100.9 93 / 0432 98.6 91 18 111/72 85.2 93 Nasal cannula 24 hour I O ending at 0700: 05/31 0700 05/30 1900 Intake Total 617.00 Output Total 650 Balance -33.00 Intake, IV 467.00 Intake, Oral 150 Number 0 Bowel Movements Number Voids 1 Output, Urine 650 Patient 241 lb 241 lb Weight Weight Bed scale Stated/Reported Measurement Method PATIENT WEIGHT: Weight (lb): 240 Weight (oz): 4.86 Weight (kg): 109.000 Medications: Active Meds + DC'd Last 24 Hrs Atropine Sulfate (ATROPINE SULFATE 0.1MG/ML SYR) 0.5 MG ASDIR PRN IV Sodium Chloride (SODIUM CHLORIDE 0.9%) 500 ML ASDIR PRN IV Iopamidol (ISOVUE-370 100ML) 0 .STK-MED ONE IV (DC) Heparin Sodium (HEPARIN SODIUM) 0 .STK-MED ONE .ROUTE (DC) Heparin Sodium/Sodium Chloride (HEPARIN 1,000 UNITS/NS 500ML) 500 ML .STK- MED ONE IV (DC) Lidocaine HCl (LIDOCAINE HCL/PF) 0 .STK-MED ONE .ROUTE (DC) Nitroglycerin/Dextrose (NITROGLYCERIN 50,000MCG/D5W 250ML) 250 ML .STK-MED ONE IV (DC) Fentanyl Citrate (SUBLIMAZE) 0 .STK-MED ONE .ROUTE (DC) Heparin Sodium/Sodium Chloride (HEPARIN 2,000 UNITS/NS 1,000mL) 1,000 ML .STK-MED ONE IV (DC) Midazolam HCl (VERSED) 0 .STK-MED ONE .ROUTE (DC) Verapamil HCl (ISOPTIN) 0 .STK-MED ONE IV (DC) Aspirin (ASPIRIN) 81 MG DAILY PO Carvedilol (COREG) 12.5 MG Q12HR PO Melatonin (Melatonin) 6 MG ONCE ONE PO (DC) Amlodipine Besylate (NORVASC) 10 MG BEDTIME PO Atorvastatin Calcium (LIPITOR) 40 MG 2100 PO Doxazosin Mesylate (CARDURA) 2 MG BEDTIME PO Insulin Human Lispro (HUMALOG) 0 AC HS SUBQ Furosemide (LASIX 40 mg/4 mL INJECTION) 40 MG Q8HR IV Sodium Chloride (SODIUM CHLORIDE 0.9%) 1,000 ML .Q20H ONE IV (DC) Acetaminophen (TYLENOL) 650 MG Q4H PRN PRN PO Dextrose/Water (DEXTROSE 10% IN WATER) 125 ML ASDIR PRN IV (CKD) Dextrose/Water (DEXTROSE 10% IN WATER) 250 ML ASDIR PRN IV (CKD) Glucagon (GLUCAGON) 1 MG ASDIR PRN IM Hydralazine HCl (APRESOLINE) 10 MG Q6H PRN PRN IV Hydrocodone Bitart/Acetaminophen (NORCO 5/325) 1 TAB Q4H PRN PRN PO Morphine Sulfate (morphine SULFATE) 4 MG Q4H PRN PRN IV Ondansetron HCl (ZOFRAN) 4 MG Q4H PRN PRN IV Nitroglycerin (NITROSTAT) 0.4 MG Q5M PRN PRN SL Heparin Sodium (HEPARIN 5000 UNITS/ML) 9,000 UNIT ASDIR PRN PRN IV Heparin Sodium (HEPARIN 5000 UNITS/ML) 4,500 UNIT ASDIR PRN PRN IV Heparin Sodium (Porcine) (HEPARIN 25,000 UNITS/ 1/2NS 500ML) 500 ML ASDIR IV (CKD) Sodium Chloride (SODIUM CHLORIDE 0.9%) 1,000 ML Q24H IV Physical Exam Head/Eyes: atraumatic, clear cornea, EOMI, PERRLA Neck: normal thyroid, supple/no meningismus Cardiovascular: normal heart sounds, regular rate rhythm, no gallop, no murmur , no rub Respiratory: aerating well, clear to auscultation Abdomen: non-tender, normal bowel sounds, soft, no distention Extremities: edema, no clubbing, no cyanosis Neuro/BUSINESS AREA MANAGER: alert, oriented X 3, CNII-XII intact Results Findings/Data: Laboratory Tests 05/31 05/31 05/31 05/31 05/31 1920 1104 0740 0636 0636 Chemistry Sodium (134 - 147 mEq/L) 134 Potassium (3.4 - 5.0 mEq/L) 3.5 Chloride (100 - 108 mEq/L) 102 Carbon Dioxide (21 - 33 mEq/l) 23 Anion Gap (0 - 20) 12 BUN (7 - 25 mg/dL) 21 Creatinine (0.6 - 1.3 mg/dL) 1.0 Glomerular Filtr Rate (80 - 90) 82.0 Glucose (77 - 141 mg/dL) 168 H POC Glucose (70 - 110 MG/DL) 113 H 160 H 181 H Hemoglobin A1c (4.8 - 6.0 %A1C) 8.4 H Calcium (8.0 - 10.5 mg/dL) 9.0 Troponin I High Sens (0 - 54 ng/L) 1024 *H Laboratory Tests 06/01 635 Coagulation PTT ([place]) (25.0 - 39.5 Seconds) 61.5 H Laboratory Tests 06/01 635 Hematology WBC (4.5 - 11.0 x10 3/uL) 8.4 RBC (4.00 - 5.60 x10 6/uL) 4.28 Hgb (12.5 - 16.9 g/dL) 12.9 Hct (37.5 - 50.7 %) 39.1 MCV (81.0 - 99.0 fL) 91.4 MCH (27.0 - 33.0 pg) 30.1 MCHC (33.0 - 37.0 g/dL) 33.0 RDW (11.5 - 14.5 %) 13.6 Plt Count (150 - 400 x10 3/uL) 153 MPV (7.0 - 9.0 fL) 11.7 H Neut % (Auto) (56.0 - 77.0 %) 76.7 Lymph % (Auto) (14.0 - 32.0 %) 9.4 L [place] % (Auto) (4.8 - 9.0 %) 10.9 H Eos % (Auto) (0.3 - 3.7 %) 1.9 Baso % (Auto) (0.0 - 2.0 %) 0.7 Neut # (Auto) (2.0 - 7.6 x10 3/uL) 6.47 Lymph # (Auto) (1.0 - 3.8 x10 3/uL) 0.79 L [place] # (Auto) (0.1 - 0.8 x10 3/uL) 0.92 H Eos # (Auto) (0.0 - 0.2 x10 3/uL) 0.16 Baso # (Auto) (0.0 - 0.2 x10 3/uL) 0.06 Abs Immat Gran (auto) (0.00 - 0.03 x10 3/uL) 0.03 Immature Gran % (0.0 - 2.0 %) 0.4 Nucleated RBC % (0 - 0 %) 0.0 Nucleated RBCs # (Man) (0.0 - 0.1 x10 3/uL) 0.00 Laboratory Tests 05/31 0049 Toxicology Urine Opiates Screen (NEGATIVE) NEGATIVE Urine Barbiturates (NEGATIVE) NEGATIVE Ur Phencyclidine Scrn (NEGATIVE) NEGATIVE Ur Amphetamines Screen (NEGATIVE) NEGATIVE U Benzodiazepines Scrn (NEGATIVE) NEGATIVE Urine Cocaine Screen (NEGATIVE) NEGATIVE Urine Cannabinoids (NEGATIVE) NEGATIVE Diagnosis, Assessment Plan Free Text DxA P Notes Free text DxA P notes: Shortness of breath Differential diagnosis includes CHF Placed on Lasix 40 mg IV every 8 hours Cardiology consulted Echo ordered Chest tightness Possibly secondary to fluid overload Cardiology consulted Echo pending Elevated troponin Consulted cardiology On Lovenox Diabetes mellitus A1c 8.4% Sliding scale insulin as needed Hypertension Renew medications once they have been updated in the computer Check labs in the a.m. Patient does not have a living will or medical power of defense attorney Patient is a full code Quality: Gen Med Crit Care VTE Prophylaxis VTE prophylaxis initiated: yes Current Medications Current medication review: I attest that the foregoing medication list in the medical record is true, accurate, and complete to the best of my knowledge. Advanced Care Plan 65 or Older Discussed with: patient Discussion included: living will, power of defense attorney, code status at 2354 RPT #:[id number] END OF REPORT [facility] 2023-06-01 17:43:00 [facility] ([facility]) Cardiology Consultation REPORT#:[id number] REPORT STATUS: Signed REPORT INITIALIZATION DATE:06/01/23 TIME: 1742 PATIENT: MINDY CARTER UNIT #: [id number] ROOM/BED: [place] [address] : 54 AGE: 67 SEX: M ATTEND: Eleonora Mai MD ADM AUTHOR: Clayton Nathan MD REPT SERVICE DT/TIME: 06/01/231742 * ALL edits or amendments must be made on the electronic/computer document * History of Present Illness HPI HPI: Cardiology progress note Date of service: Chief complaint/reason for consult: CHF, NSTEMI Patient seen and examined, chart reviewed, questions/concerns addressed with RN. Current medication and vitals reviewed. HPI and interval Hx: No major events overnight underwent IV diuresis and feels better. Echo showed preserved LV static function Subjective: Still with on and off occasional chest tightness and shortness of breath Objective: Vital Signs Date Temp Pulse Resp B/P B/P Mean Pulse Ox FiO2 05/30-05/31 97.3-99.0 89-95 14-18 111-152/72-84 85.2-106.7 90-97 GEN: Alert and cooperative, no acute distress. HEENT: NC/AT, EOMI CARD: RRR, normal S1/S2 LUNGS: CTA w/o added sounds, GBAE. EXT: No obvious deformities. No edema. Peripheral pulses intact NEURO: AOx4, CN II-XII grossly intact. SKIN: Warm and dry, no rashes/lesions. PSYCH: AOx4. Appropriate mood and affect Assessment, Impression and medical decision making: -NSTEMI -Acute on chronic diastolic congestive heart -Morbid obesity -Hypertension, hyperlipidemia, type 2 diabetes mellitus Plan/recommendation: -Coronary angiogram showed left main/LAD stenosis -Heart team approach and consult CTS for CABG versus PCI evaluation -Resume heparin drip, continue with aspirin statin and beta-blockers History - Adult longitudinal Allergies: Coded Allergies: No Known Allergies (05/31/23) at 1744 RPT #:[id number] END OF REPORT [facility] 2023-06-01 17:34:00 [facility] ([facility]) DT Operative Note REPORT#:[id number] REPORT STATUS: Signed REPORT INITIALIZATION DATE:06/01/23 TIME: 1733 PATIENT: MINDY CARTER UNIT #: [id number] ROOM/BED: [place] [id number] : 53 AGE: 67 SEX: M ATTEND: Eleonora Mai MD ADM AUTHOR: Clayton Nathan MD REPT SERVICE DT/TIME: 06/01/231733 * ALL edits or amendments must be made on the electronic/computer document * Operative Report Operative Note Note: Cardiac catheterization procedure note Location: [facility] catheterization Lab Date of service: 06/01/2023 Attending physician: Clayton Nathan MD Pre-operative diagnosis: NSTEMI Post-operative diagnosis: Same as above in addition to: 1. Severe left main and proximal LAD stenosis Procedure: -Moderate sedation, 20 mins -Fluoroscopic ultrasound-guided right LEAD MANUFACTURING TECHNICIAN access, 4 [place] -Selective coronary angiography -Left heart catheterization -[id number] Moderate sedation, initial 15 minutes -04026(+) Ultrasound guided access -[id number] CAG+LHC Findings: Coronary Anatomy: -Left main: Proximal to mid left main with 60-70% stenosis. Significant dampening with engagement of the 4 [place] JL catheter suggestive of ostial involvement. -LAD: Ostial LAD has a 90% hazy stenosis. -Left circumflex: Patent with mild luminal irregularities -Right coronary artery: Large, dominant vessel, heavily calcified throughout with a mild 30-40% mid stenosis. RPDA is patent. RPL is patent Hemodynamics: LVEDP: 9 mmHg No gradient upon pullback from the LV to AO Procedure details: After patient identification informed consent and preprocedural timeout. Conscious moderate sedation was ordered and monitored by me. The right common femoral artery site was draped and prepped in the usual sterile fashion. Local anesthesia with 1% lidocaine was used to anesthetize the [facility] common femoral artery access site. Using fluoroscopy and real-time ultrasound guidance, a micropuncture kit was used to access the RCFA. Utilizing Seldinger technique a 4 [place] sheath was introduced over the wire into the artery without difficulty. A 4 Surinamese JL 5 diagnostic catheter was introduced through the femoral arterial sheath over wire to cannulate the left main coronary artery which was selectively engaged with non-dampening waveforms. Cine images obtained. The catheter was then removed over the wire and exchanged for a 4 Surinamese JR4 diagnostic catheter which was introduced over the wire to the ascending aorta and repositioned across aortic valve into the LV. Wire was removed and LVEDP was directly measured. Pullback performed. The catheter was then repositioned to selectively engage the RCA and cine images obtained after verifying a nondampened waveform. The patient tolerated the procedure very well without complications and was transferred to post-cath unit for observation. Please refer to the radiation tech and nurses notes for further details. Complications: No immediate complication Blood loss: 10 cc Disposition: PACU Assessment: -Severe calcific left main/LAD stenosis as detailed above Plan: -Routine post-cath care and observation -4 hours bed rest -Resume heparin drip, continue aspirin, statin, beta-huy -Heart team approach, consult CTS for CABG versus PCI of left main/LAD -Family was updated with the details and the results of the procedure. All questions and concerns were addressed. Clayton Nathan MD Attending Ammunition And Explosives Handler [facility] Cardiology at 1742 RPT #:[id number] END OF REPORT [facility] 2023-06-01 16:49:00 [id number] [place] [address] PATIENT NAME: MINDY CARTER ADMIT DATE: 05/31/23 ACCOUNT NO: [id number] ROOM NO: [facility] AGE: 67 REPORT TYPE: eECHOCARDIOGRAM REPORT SEX: M ADMITTING PHYSICIAN:Eloenora Mai MD ATTENDING PHYSICIAN:Eleonora Mai MD *[place] [address] Transthoracic Echocardiogram Patient: Mindy Carter Study Date: 05/31/2023 BP: 131 / 91 URN: [id number] Location: : 1955 Age: 67 Gender: M Height: 69 in / 175.3 cm Weight: 240 lb / 108.9 kg BMI/BSA: 35.4 kg/m 2 / 2.34 m 2 *Ordering Physician: * Naomi CervantesInterpreting Physician: * Clayton Nathan MD *Continuing Education Specialist: * Chelita Valentine Indications: CHF. Study data: Transthoracic echocardiogram. Procedure: A transthoracic echocardiogram was performed. Image quality was adequate. Complete 2D, complete spectral Doppler, and color Doppler. Location: Bedside. Patient room number: ER HOF 110. Heart rate: 94 bpm. Findings Left ventricle: The cavity size is normal. Wall thickness is mildly increased. Systolic function is normal. The estimated ejection fraction is 55-60%. Wall motion is normal; there are no regional wall motion abnormalities. Grade I diastolic dysfunction. Right ventricle: The cavity size is normal. Systolic function is normal. PATIENT NAME: MINDY CARTER Left atrium: The atrium is normal in size. Right atrium: The atrium is normal in size. Aorta: Aortic root: The root is normal-sized. Aortic valve: The valve is trileaflet. The leaflets are mildly thickened. There is thickening, consistent with sclerosis. There is no evidence of stenosis. There is no regurgitation. Mitral valve: The annulus is moderately calcified. The leaflets are moderately thickened and moderately calcified. The findings are consistent with moderate stenosis. There is mild regurgitation. Tricuspid valve: The valve is structurally normal. There is trace regurgitation. Pulmonic valve: There is no regurgitation. Pericardium: There is no pericardial effusion. Pulmonary arteries: Not well visualized. Systemic veins: Inferior vena cava: The IVC is normal-sized. Measurements Left ventricle Value Ref CHOCO, LAX 4.5 cm 4.2 - 5.8 ESD, LAX 3.1 cm 2.5 - 4.0 FS, LAX 31 % 25 - 43 CHOCO major ax, A2C 7.6 cm --------- IVS, ED 1.2 cm 0.6 - 1.0 PW, ED 1.2 cm 0.6 - 1.0 IVS/PW, ED 1.02 --------- EF 58 % 52 - 72 E', lat khadar, TDI 7.3 cm/sec >=10.0 E/e', lat khadar, TDI 27 <=13 E', med khadar, TDI 5.7 cm/sec >=7.0 E/e', med khadar, TDI 35 --------- E', avg, TDI 6.5 cm/sec --------- E/e', avg, TDI 30 <=14 LVOT Value Ref Diam, S 1.99 cm --------- Area 3.1 cm 2 --------- Peak kenny, S 1.24 m/sec --------- Mean kenny, S 0.81 m/sec --------- VTI, S 22.5 cm --------- Peak grad, S 6 mm Hg --------- Mean grad, S 3 mm Hg --------- SV 70 ml --------- Qs 6.76 L/min --------- Qs/bsa 2.9 L/(min-m 2) --------- SV/bsa 30 ml/m 2 --------- Right ventricle Value Ref CHOCO, LAX 2.8 cm --------- Pressure, S 18 mm Hg --------- PATIENT NAME: MINDY CARTER RVOT Value Ref Peak v, S 0.9 m/sec --------- Peak grad, S 3 mm Hg --------- Left atrium Value Ref Vol/bsa, S 31 ml/m 2 16 - 34 Vol/bsa, ES, 1-p A4C 28 ml/m 2 12 - 37 Vol, ES, 2-p 72 ml --------- Vol/bsa, ES, 2-p 31 ml/m 2 16 - 34 Vol/bsa, ES, A/L 29 ml/m 2 16 - 34 AP dim, ES MM 3.5 cm 3.0 - 4.0 LA/Ao root ratio, MM 1.08 --------- Aortic valve Value Ref Leaflet sep, MM 0.77 cm --------- Peak v, S 1.8 m/sec --------- Mean v, S 1.2 m/sec --------- VTI, S 33.7 cm --------- Mean grad, S 7 mm Hg --------- Peak grad, S 12.6 mm Hg --------- LVOT/AV, VTI ratio 0.67 --------- DERIAN, VTI 2.07 cm 2 --------- LVOT/AV, Vpeak ratio 0.7 --------- DERIAN, Vmax 2.17 cm 2 --------- Mitral valve Value Ref E-septal separation 1.4 cm --------- E-F slope 0.04 m/sec --------- Mean v, D 1.18 m/sec --------- Peak E 1.97 m/sec --------- Peak A 2.5 m/sec --------- VTI leaflet coapt 53.1 cm --------- MiV/LVOT VTI 2.4 --------- Decel time 259 ms --------- PHT 87 ms --------- Mean grad, D 7 mm Hg --------- Peak grad, D 22.4 mm Hg --------- Peak E/A ratio 0.79 --------- MVA, PHT 2.5 cm 2 --------- Tricuspid valve Value Ref TR peak v 1.4 m/sec <=2.8 Peak RV-RA grad, S 8 mm Hg --------- Aortic root Value Ref Root diam, ED MM 3.2 cm --------- Pulmonary artery Value Ref Pressure, S 12.5 mm Hg --------- Systemic veins Value Ref Estimated CVP 10 mm Hg --------- PATIENT NAME: MINDY CARTER Conclusions Summary: 1. Left ventricle: The cavity size is normal. Wall thickness is mildly increased. Systolic function is normal. The estimated ejection fraction is 55-60%. Wall motion is normal; there are no regional wall motion abnormalities. Grade I diastolic dysfunction. 2. Right ventricle: The RV pressure during systole is 18 mm Hg. 3. Aortic valve: There is thickening, consistent with sclerosis. 4. Mitral valve: The annulus is moderately calcified. The leaflets are moderately thickened and moderately calcified. The findings are consistent with moderate stenosis. There is mild regurgitation. 5. Pericardium, extracardiac: There is no pericardial effusion. Electronically signed by Clayton Nathan MD 06/01/2023 16:49 at 1649 PATIENT NAME: MINDY CARTER [facility] 2023-05-31 16:58:00 [facility] Hospitalist History Physical REPORT#:[id number] REPORT STATUS: Signed REPORT INITIALIZATION DATE:05/31/23 TIME: 1657 PATIENT: MINDY CARTER UNIT #: [id number] ROOM/BED: [place] [id number] : [birth year] AGE: 67 SEX: M ATTEND: Eleonora Mai MD ADM AUTHOR: Eleonora Mai MD REPT SERVICE DT/TIME: 05/31/231657 * ALL edits or amendments must be made on the electronic/computer document * History of Present Illness HPI Chief complaint: Shortness of breath PCP: PCP: No Primary or Family Physician HPI: This is a 67-year-old male with history of high blood pressure, hyperlipidemia, diabetes mellitus, syncope, neuropathy, alcohol use, liver cirrhosis, stage II CKD presents with shortness of breath that has been increasing since 2 days ago. Patient took extra dose of Aldactone and hydrochlorothiazide which did not help. Patient also reports chest tightness and is currently on 5 L of oxygen per nasal cannula. Patient says that he cannot lie down he gets short of breath when he lies down. He drinks whiskey about 3 shots a day. He has been having increasing edema in bilateral lower extremities. No headaches or dizziness. No other complaints elicited. History Past Medical Surgical Hx Additional medical history: Hypertension, hyperlipidemia, diabetes mellitus, neuropathy, syncope, alcohol use, stage II CKD, liver cirrhosis Additional surgical history: Appendectomy Family History Additional family history: None Social History Alcohol use: Alcohol use (3 SHOTS OF WHISKEY/DAY) Drug use: Denies recreational drugs Smoking status for patients 13 years old or older: Never Smoker Medication/Allergy-Vaccine Hx Allergies: Coded Allergies: No Known Allergies (05/31/23) Review of Systems All systems rev neg: except as noted (IN THE HPI) OBJECTIVE VS/I O: Vital Signs Date Temp Pulse Resp B/P B/P Mean Pulse Ox FiO2 / 97.8-98.1 94 32-51 121-132/68-91 87-104.0 92-95 Last Documented: Result Date Time Pulse Ox 92 05/30 1343 B/P 131/91 / 1343 B/P Mean 104.0 / 1343 Temp 98.1 / 1343 Pulse 94 / 1343 O2 Delivery Nasal cannula 05/30 1215 O2 Flow Rate 5 05/30 1215 Resp 51 / 1200 Patient Weight and BMI Weight (kg): 109.091 BMI: 35.5 Medications: Active Meds + DC'd Last 24 Hrs Aspirin (ASPIRIN) 81 MG DAILY PO Carvedilol (COREG) 12.5 MG Q12HR PO Amlodipine Besylate (NORVASC) 10 MG BEDTIME PO (UNV) Atorvastatin Calcium (LIPITOR) 40 MG 2100 PO Insulin Human Lispro (HUMALOG) 0 AC HS SUBQ (UNV) Terazosin HCl (HYTRIN) 2 MG BEDTIME PO (UNV) Furosemide (LASIX 40 mg/4 mL INJECTION) 40 MG Q8HR IV Sodium Chloride (SODIUM CHLORIDE 0.9%) 1,000 ML .Q20H ONE IV Acetaminophen (TYLENOL) 650 MG Q4H PRN PRN PO (UNV) Dextrose/Water (DEXTROSE 10% IN WATER) 125 ML ASDIR PRN IV (UNV) Dextrose/Water (DEXTROSE 10% IN WATER) 250 ML ASDIR PRN IV (UNV) Glucagon (GLUCAGON) 1 MG ASDIR PRN IM (UNV) Hydralazine HCl (APRESOLINE) 10 MG Q6H PRN PRN IV (UNV) Hydrocodone Bitart/Acetaminophen (NORCO 5/325) 1 TAB Q4H PRN PRN PO (UNV ) Morphine Sulfate (morphine SULFATE) 4 MG Q4H PRN PRN IV (UNV) Ondansetron HCl (ZOFRAN) 4 MG Q4H PRN PRN IV (UNV) Heparin Sodium (HEPARIN 5000 UNITS/ML) 4,000 UNIT ONCE ONE IV (DC) Nitroglycerin (NITROSTAT) 0.4 MG Q5M PRN PRN SL Furosemide (LASIX 40 mg/4 mL INJECTION) 60 MG ONCE ONE IV (DC) Heparin Sodium (HEPARIN 5000 UNITS/ML) 6,545.46 UNIT ONCE ONE IV (CAN) Heparin Sodium (HEPARIN 5000 UNITS/ML) 9,000 UNIT ASDIR PRN PRN IV Heparin Sodium (HEPARIN 5000 UNITS/ML) 4,500 UNIT ASDIR PRN PRN IV Heparin Sodium (Porcine) (HEPARIN 25,000 UNITS/ 1/2NS 500ML) 500 ML ASDIR IV (CKD) Sodium Chloride (SODIUM CHLORIDE 0.9%) 1,000 ML Q24H IV General appearance: no acute distress Head/Eyes: atraumatic, clear cornea, EOMI, PERRLA Neck: normal thyroid, supple/no meningismus Cardiovascular: normal heart sounds, regular rate rhythm, no gallop, no murmur , no rub Respiratory: aerating well, clear to auscultation Abdomen: non-tender, normal bowel sounds, soft, no distention Extremities: edema, no clubbing, no cyanosis Neuro/BUSINESS AREA MANAGER: alert, oriented X 3, CNII-XII intact Results Findings/Data: Laboratory Tests: 05/30 05/30 05/30 05/30 1519 1214 1137 1137 Chemistry Troponin I High Sens (0 - 54 ng/L) 1249 *H B-Natriuretic Peptide (0 - 100 PG/ML) 771.0 H Triglycerides (40 - 150 mg/dL) 89 Cholesterol (<200 mg/dL) 147 LDL Cholesterol Measurd (0 - 100 mg/dL) 81.0 81.0 HDL Cholesterol (40 - 60 MG/DL) 53.1 Cholesterol/HDL Ratio (3.43 - 4.97 RATIO) 2.77 L TSH (0.42 - 5.47) 2.06 Coagulation INR (0.8 - 1.2) 1.2 PTT (Rashida) (25.0 - 39.5 Seconds) 35.8 PT Patient/Control Mix (9.3 - 12.9 SECONDS) 12.8 Hematology WBC (4.5 - 11.0 x10 3/uL) 12.2 H RBC (4.00 - 5.60 x10 6/uL) 4.43 Hgb (12.5 - 16.9 g/dL) 13.5 Hct (37.5 - 50.7 %) 40.4 MCV (81.0 - 99.0 fL) 91.2 MCH (27.0 - 33.0 pg) 30.5 MCHC (33.0 - 37.0 g/dL) 33.4 RDW (11.5 - 14.5 %) 13.6 Plt Count (150 - 400 x10 3/uL) 162 MPV (7.0 - 9.0 fL) 12.0 H Neut % (Auto) (56.0 - 77.0 %) 81.9 H Lymph % (Auto) (14.0 - 32.0 %) 7.1 L [place] % (Auto) (4.8 - 9.0 %) 9.3 H Eos % (Auto) (0.3 - 3.7 %) 0.5 Baso % (Auto) (0.0 - 2.0 %) 0.5 Neut # (Auto) (2.0 - 7.6 x10 3/uL) 9.98 H Lymph # (Auto) (1.0 - 3.8 x10 3/uL) 0.86 L [place] # (Auto) (0.1 - 0.8 x10 3/uL) 1.13 H Eos # (Auto) (0.0 - 0.2 x10 3/uL) 0.06 Baso # (Auto) (0.0 - 0.2 x10 3/uL) 0.06 Abs Immat Gran (auto) (0.00 - 0.03 x10 3/uL) 0.09 H Immature Gran % (0.0 - 2.0 %) 0.7 Nucleated RBC % (0 - 0 %) 0.0 Nucleated RBCs # (Man) (0.0 - 0.1 x10 3/uL) 0.00 /04 03/04 1137 1136 Blood Gas Puncture Site L Radial O2 Saturation (90 - 100 %) 92.0 ABG pH (7.35 - 7.45) 7.519 *H ABG pCO2 (35.0 - 45 mmHg) 33.4 L ABG pO2 (80 - 100.0 mmHg) 56.3 L ABG HCO3 (22.0 - 26.0 MMOL/L) 27.2 H ABG Total CO2 28.2 ABG Base Excess (-4.0 - 4.0 MMOL/L) 4.3 H Mabel Test Positive O2 Delivery Device 4L Chemistry Sodium (134 - 147 mEq/L) 136 Potassium (3.4 - 5.0 mEq/L) 3.6 Chloride (100 - 108 mEq/L) 104 Carbon Dioxide (21 - 33 mEq/l) 25 Anion Gap (0 - 20) 10 BUN (7 - 25 mg/dL) 28 H Creatinine (0.6 - 1.3 mg/dL) 1.2 Glomerular Filtr Rate (80 - 90) 65.9 L Glucose (77 - 141 mg/dL) 243 H Calcium (8.0 - 10.5 mg/dL) 8.7 Magnesium (1.6 - 2.6 mg/dL) 1.89 Troponin I High Sens (0 - 54 ng/L) 1181 *H Hematology WBC (4.5 - 11.0 x10 3/uL) 12.4 H RBC (4.00 - 5.60 x10 6/uL) 4.37 Hgb (12.5 - 16.9 g/dL) 13.0 Hct (37.5 - 50.7 %) 39.8 MCV (81.0 - 99.0 fL) 91.1 MCH (27.0 - 33.0 pg) 29.7 MCHC (33.0 - 37.0 g/dL) 32.7 L RDW (11.5 - 14.5 %) 13.4 Plt Count (150 - 400 x10 3/uL) 153 MPV (7.0 - 9.0 fL) 12.0 H Neut % (Auto) (56.0 - 77.0 %) 82.6 H Lymph % (Auto) (14.0 - 32.0 %) 6.1 L [place] % (Auto) (4.8 - 9.0 %) 9.6 H Eos % (Auto) (0.3 - 3.7 %) 0.2 L Baso % (Auto) (0.0 - 2.0 %) 0.5 Neut # (Auto) (2.0 - 7.6 x10 3/uL) 10.20 H Lymph # (Auto) (1.0 - 3.8 x10 3/uL) 0.76 L [place] # (Auto) (0.1 - 0.8 x10 3/uL) 1.19 H Eos # (Auto) (0.0 - 0.2 x10 3/uL) 0.03 Baso # (Auto) (0.0 - 0.2 x10 3/uL) 0.06 Abs Immat Gran (auto) (0.00 - 0.03 x10 3/uL) 0.12 H Immature Gran % (0.0 - 2.0 %) 1.0 Nucleated RBC % (0 - 0 %) 0.0 Nucleated RBCs # (Man) (0.0 - 0.1 x10 3/uL) 0.00 Laboratory Tests 05/31/23 1519: [Embedded Image Not Available] 05/31/23 1137: [Embedded Image Not Available] Radiology data: Recent Impressions: RADIOLOGY - XR CHEST 1 V 05/30 1145 Report Impression - Status: SIGNED Entered: 05/31/2023 1220 IMPRESSION: Cardiomegaly with diffuse congestive changes bilaterally. Impression By: Rosendo - Gabrielle Jean M.D. Diagnosis, Assessment Plan Free Text A P: Shortness of breath Differential diagnosis includes CHF Placed on Lasix 40 mg IV every 8 hours Cardiology consulted Echo ordered Chest tightness Possibly secondary to fluid overload Cardiology consulted Echo pending Elevated troponin Consulted cardiology On Lovenox Diabetes mellitus Check A1c/ Sliding scale insulin as needed Hypertension Renew medications once they have been updated in the computer Check labs in the a.m. Patient does not have a living will or medical power of defense attorney Patient is a full code Quality: Gen Med Crit Care VTE Prophylaxis VTE prophylaxis initiated: yes Current Medications Current medication review: I attest that the foregoing medication list in the medical record is true, accurate, and complete to the best of my knowledge. Advanced Care Plan 65 or Older Discussed with: patient Discussion included: living will, power of defense attorney, code status at 1703 RPT #:[id number] END OF REPORT [facility] 2023-05-31 12:30:00 [facility] ([facility]) Cardiology Consultation REPORT#:[id number] REPORT STATUS: Signed REPORT INITIALIZATION DATE:05/31/23 TIME: 1230 PATIENT: MINDY CARTER UNIT #: [id number] ROOM/BED: [id number] : 54 AGE: 67 SEX: M ATTEND: Denise Montejo MD ADM AUTHOR: Naomi Cervantes NP REPT SERVICE DT/TIME: 05/31/23 1230 * ALL edits or amendments must be made on the electronic/computer document * History of Present Illness HPI HPI: Cardiology progress note Date of service: 05/31/2023 Chief complaint/reason for consult: CHF exacberation. Patient seen and examined, chart reviewed, questions/concerns addressed with RN. Current medication and vitals reviewed. HPI and interval Hx: Mindy Carter is a 67 year old male with PMH of HTN, HLD, DM, syncope neuropathy, daily alcohol drinker, Liver Cirrhosis who presented to ER with worsening shortness of breath. Per at bedside symptoms started on which progressively got worst. at bedside administered extra dose of spironolactone and hctz which did not help. Patient reports chest tightness left of sternum as he ambulated in the ER. At time of physical exam patient is awake alert sitting at side of bed on 5 L nasal cannula. Patient denies any active chest pain, shortness of breath(on O2), headache, dizziness, nausea, vomiting. She has been patient reports drinking whiskey daily denies smoking recreational drugs. 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 denies any formal diagnosis of CHF. Discussed with patient and will continue to monitor troponin patient will be started on heparin drip. Educated patient and regarding cardiac cath pending on labs and follow-up patient will require catheterization during hospital stay. Subjective: +Shortness of breath/chest tightness Objective: Vital Signs Vital Signs: Date Time Temp Pulse Resp B/P B/P Pulse O2 O2 Flow FiO2 Mean Ox Delivery Rate 05/30 1215 Nasal 5 cannula 05/30 1200 94 51 132/68 93 93 05/30 1141 95 Nasal 4 cannula 05/30 1120 97.8 94 32 121/70 87 92 Nasal 5 cannula PHYSICAL EXAM GEN: Alert and cooperative, no acute distress. HEENT: NC/AT, EOMI CARD: RRR, normal S1/S2, no added sounds LUNGS: Diminished, symmetrical, NC MSK: 1- 2+ pitting edema BLE Laboratory data: Reviewed independently. Radiology images and report: Reviewed. EKG: NSR RBBB 95 bpm Echo: Ordered Lexiscan stress testing: Assessment: - Acute respiratory failure with hypoxia - NSTEMI - New CHF - PMH HTN - PMH HLD - PMH DMT2 - PMH Neuropathy - Substance abuse Plan: Continue telemetry monitoring Daily weights, strict I's and O's X-ray reviewed Fluid restriction 1.2 liters Lasix 60 mg IV X 1 Start Lasix 40 mg IV every 8 hours Heparin drip Trend troponin to peak, initial troponin 1181 Echocardiogram ordered NtproBNP 771 TSH lipid panel A1c ordered Electrolyte replacement as needed keep potassium greater than 4 magnesium greater than 2 Cardiac /ADA diet Diet /alcohol cessation education A.m. labs History - Adult longitudinal Smoking status for patients 13 years old or older: Never Smoker Allergies: Coded Allergies: No Known Allergies (05/31/23) at 1318 at 0902 RPT #:[id number] END OF REPORT [facility] 2023-05-31 11:34:00 [id number] [address] PATIENT NAME: MINDY CARTER ADMIT DATE: 05/31/23 ACCOUNT NO: [id number] ROOM NO: [facility] AGE: 67 REPORT TYPE: eELECTROCARDIOGRAM REPORT SEX: M ADMITTING PHYSICIAN:Eleonora Mai MD ATTENDING PHYSICIAN:Eleonora Mai MD Order: [id number] Test Reason : sob/chf Test Date/Time Stamp: WedMay 31 2023 11:34:27 Blood Pressure : / mmHG Vent. Rate : 094 BPM Atrial Rate : 094 BPM P-R Int : 168 ms QRS Dur : 158 ms QT Int : 434 ms P-R-T Axes : 048 -73 071 degrees QTc Int : 542 ms Sinus rhythm with occasional premature ventricular complexes Possible Left atrial enlargement Right bundle branch block Left anterior fascicular block Bifascicular block Septal infarct , age undetermined Abnormal ECG No previous ECGs available Confirmed by TAO CARMEN MD ([id number]) on 05/31/2023 3:05:13 PM Referred By: Mendel Walker Confirmed by:TAO CARMEN MD at 1505 PATIENT NAME: MINDY CARTER [facility] 2023-05-31 11:27:00 [facility] ([facility]) EMERGENCY PROVIDER REPORT REPORT#:[id number] REPORT STATUS: Signed DATE:05/31/23 TIME: 1127 PATIENT: MINDY CARTER UNIT #: [id number] ROOM/BED: [place] [address] AGE: 67 SEX: M PCP PHYS: No Primary or Family Physician SERVICE AUTHOR: Mendel Walker MD * ALL edits or amendments must be made on the electronic/computer document * HPI-Dyspnea/Wheezing General Confirmed Patient Yes Initial Greet Date/Time 05/31/23 1120 PCP out fo town pcp josse sierra Presentation Chief Complaint Chest pain, Cough, Shortness of breath Hx Obtained From Patient, EMS )( Sudden in Onset? No Onset Occurred Days ago Free Text HPI Notes Free Text HPI Notes Mindy Carter is a 67 year old male with PMH of HTN, HLD, DM, syncope neuropathy, daily alcohol drinker, Liver Cirrhosis who presented to ER with worsening shortness of breathfor many days. Patient had chest pain earlier but states this is resolved after treatment at other facility. Patient started on multiple medications including Lovenox and Lasix at another facility and arrives on BiPAP. He like to try not being on BiPAP. He has noted coronary disease but no known CHF. No recent travel or COVID-19 contacts. Outside test for flu and COVID-negative. Risk-Dyspnea/Wheezing Risk Stratification Coronary Artery Disease Risk factors reviewed Pulmonary Embolism Risk factors reviewed Review of Systems ROS Statements All systems rev neg except as marked. Focused Review of Systems Constitutional Reports: Fatigue, Weakness - generalized. Denies: Chills. Respiratory Reports: Cough, non-productive, Shortness of breath. Denies: Cough, productive. Cardiovascular Reports: Chest pain, Dyspnea on exertion, Edema, Orthopnea, Palpitations. Past Medical History - Adult Stated Complaint SOB Allergies Coded Allergies: No Known Allergies (05/31/23) Home Medications Reported Medications amLODIPine (NORVASC) ASPIRIN EC (ECOTRIN) 81 MG PO DAILY CARVEDILOL (COREG) 25 MG PO BID MEALS TIRZEPATIDE (MOUNJARO PEN (2mL)) 12.5 QWEEK metFORMIN (GLUCOPHAGE) 500 MG PO BID glyBURIDE (DIABETA) 5 MG PO DAILY PANTOPRAZOLE (PROTONIX IV) 40 MG IV DAILY PRAVASTATIN (PRAVACHOL) GABAPENTIN (NEURONTIN) 100 MG TERAZOSIN (HYTRIN) 2 MG BEDTIME HYDROCHLOROTHIAZIDE (HCTZ) 50 MG DAILY SPIRONOLACTONE (ALDACTONE) 25 MG PO QAM CHOLECALCIFEROL (VITAMIN D3) (VITAMIN D3) DOXEPIN (SINEquan) 10 MG AZELASTINE (ASTELIN NASAL) 1 SPRAY NASAL BID Budesonide/Glycopyr/Formoterol (BREZTRI AEROSPHERE INH) 2 PUFF INH BID MONTELUKAST (SINGULAIR) Discontinued Reported Medications TERAZOSIN (HYTRIN) 2 MG Review of Nursing Notes Rapid assess notes rev Pt reports no significant: Past surgical history, Family history Physical Exam Vital Signs Vital Signs First Documented: Result Date Time Pulse Ox 92 03/04 1120 B/P 121/70 03/04 1120 B/P Mean 87 03/04 1120 O2 Delivery Nasal cannula 03/04 1120 O2 Flow Rate 5 03/04 1120 Temp 97.8 03/04 1120 Pulse 94 03/04 1120 Resp 32 03/04 1120 Last Documented: Result Date Time Pulse Ox 93 03/04 1200 B/P 132/68 03/04 1200 B/P Mean 93 03/04 1200 Pulse 94 03/04 1200 Resp 51 03/04 1200 O2 Delivery Nasal cannula 03/04 1141 O2 Flow Rate 4 03/04 1141 Temp 97.8 03/04 1120 Review of Vital Signs Reviewed Basic Physical Exam Basic PE HEAD: Atraumatic/NC, PSYCH: NL thought content Focused PE General/Const General/Const Awake, Alert MS Neck Neck Atraumatic, Supple, No meningismus, Full range of motion, No swelling, Non-tender, No masses Resp/Chest Text/Dict Notes decreased bs rales on bipap Cardiovascular Cardiovascular Heart rate NL, Regular rhythm Text/Dict Notes murmur Abdomen/GI Abdomen/GI Soft, Non-tender, No guarding, No rebound MS Back Back Inspection NL, Non-tender, No CVA tenderness MS Lower Extrem Text/Dict Notes +1 edema Skin Skin Color NL, No rash, Warm, Dry, Turgor NL Neurologic Neurologic Oriented X3, Speech NL, No motor deficits, No sensory deficits Interpretation Diagnostics Lab Results Interpretation Results Laboratory Tests 05/31/23 1137: [Embedded Image Not Available] Laboratory Tests: 05/30 05/30 05/30 05/30 1137 1137 1137 1136 Blood Gas Puncture Site L Radial O2 Saturation (90 - 100 %) 92.0 ABG pH (7.35 - 7.45) 7.519 *H ABG pCO2 (35.0 - 45 mmHg) 33.4 L ABG pO2 (80 - 100.0 mmHg) 56.3 L ABG HCO3 (22.0 - 26.0 MMOL/L) 27.2 H ABG Total CO2 28.2 ABG Base Excess (-4.0 - 4.0 MMOL/L) 4.3 H Mabel Test Positive O2 Delivery Device 4L Chemistry Sodium (134 - 147 mEq/L) 136 Potassium (3.4 - 5.0 mEq/L) 3.6 Chloride (100 - 108 mEq/L) 104 Carbon Dioxide (21 - 33 mEq/l) 25 Anion Gap (0 - 20) 10 BUN (7 - 25 mg/dL) 28 H Creatinine (0.6 - 1.3 mg/dL) 1.2 Glomerular Filtr Rate (80 - 90) 65.9 L Glucose (77 - 141 mg/dL) 243 H Calcium (8.0 - 10.5 mg/dL) 8.7 Magnesium (1.6 - 2.6 mg/dL) 1.89 Troponin I High Sens (0 - 54 ng/L) 1181 *H B-Natriuretic Peptide (0 - 100 PG/ML) 771.0 H Triglycerides (40 - 150 mg/dL) 89 Cholesterol (<200 mg/dL) 147 LDL Cholesterol Measurd (0 - 100 mg/dL) 81.0 HDL Cholesterol (40 - 60 MG/DL) 53.1 Cholesterol/HDL Ratio (3.43 - 4.97 RATIO) 2.77 L TSH (0.42 - 5.47) 2.06 Hematology WBC (4.5 - 11.0 x10 3/uL) 12.4 H RBC (4.00 - 5.60 x10 6/uL) 4.37 Hgb (12.5 - 16.9 g/dL) 13.0 Hct (37.5 - 50.7 %) 39.8 MCV (81.0 - 99.0 fL) 91.1 MCH (27.0 - 33.0 pg) 29.7 MCHC (33.0 - 37.0 g/dL) 32.7 L RDW (11.5 - 14.5 %) 13.4 Plt Count (150 - 400 x10 3/uL) 153 MPV (7.0 - 9.0 fL) 12.0 H Neut % (Auto) (56.0 - 77.0 %) 82.6 H Lymph % (Auto) (14.0 - 32.0 %) 6.1 L [place] % (Auto) (4.8 - 9.0 %) 9.6 H Eos % (Auto) (0.3 - 3.7 %) 0.2 L Baso % (Auto) (0.0 - 2.0 %) 0.5 Neut # (Auto) (2.0 - 7.6 x10 3/uL) 10.20 H Lymph # (Auto) (1.0 - 3.8 x10 3/uL) 0.76 L [place] # (Auto) (0.1 - 0.8 x10 3/uL) 1.19 H Eos # (Auto) (0.0 - 0.2 x10 3/uL) 0.03 Baso # (Auto) (0.0 - 0.2 x10 3/uL) 0.06 Abs Immat Gran (auto) (0.00 - 0.03 0.12 H x10 3/uL) Immature Gran % (0.0 - 2.0 %) 1.0 Nucleated RBC % (0 - 0 %) 0.0 Nucleated RBCs # (Man) (0.0 - 0.1 0.00 x10 3/uL) Microbiology: Date/Time Procedure - Status Source Growth 05/30 1137 MRSA DNA Surveillance Screen - RECD NASAL Recent Impressions: RADIOLOGY - XR CHEST 1 V 05/30 1145 Report Impression - Status: SIGNED Entered: 05/31/2023 1220 IMPRESSION: Cardiomegaly with diffuse congestive changes bilaterally. Impression By: Rosendo Jean M.D. ECG #1 Interpretation ECG Documented in MUSE Yes Date 05/31/23 Interpreted by and reviewed by me, Independently interpreted, ED physician NL ECG Interpretation Normal rate, No STEMI, Normal ST waves, Adequate tracing, LAD rbbb Rate 94 Re-Evaluation MDM Free Text MDM Notes Free Text MDM Notes Improved on supplemental oxygen nasal cannula. ABG obtained. Patient improving. Received Lasix and Lovenox prior to arrival will admit to IMU. Case discussed admitting team. )( Re-Evaluation/Progress #1 Time of Re-Eval 1157 )( Re-Eval Status Improved Patient Discharge Departure Vital Signs/Condition Vital Signs First Documented: Result Date Time Pulse Ox 92 03/ 1120 B/P 121/70 03/04 1120 B/P Mean 87 03/04 1120 O2 Delivery Nasal cannula 03/ 1120 O2 Flow Rate 5 03/04 1120 Temp 97.8 03/04 1120 Pulse 94 03/04 1120 Resp 32 03/04 1120 Last Documented: Result Date Time Pulse Ox 93 03/04 1200 B/P 132/68 03/04 1200 B/P Mean 93 03/04 1200 Pulse 94 03/04 1200 Resp 51 03/04 1200 O2 Delivery Nasal cannula 03/ 1141 O2 Flow Rate 4 03/04 1141 Temp 97.8 03/04 1120 All vital signs available at the time of this entry have been reviewed. Condition Improved, Guarded Clinical Impression Clinical Impression Primary Impression: COPD exacerbation Secondary Impressions: CHF exacerbation, Edema Disposition Decision Hospitalize Hosp Physician Name Eleonora Mai MD )( Accepts Hospitalization Yes )( Reason for Hospitalization CHF )( Accepted Time 1158 )( Accepted Date 05/31/23 Call Information will see patient Discharge/Care Plan Counseled Regarding Diagnosis, Lab results, Imaging studies Hold in ED Note I have spoken with the patient and/or caregivers. I have explained the patient's condition, diagnoses and treatment plan based on the information available to me at this time. I have answered the patient's and/or caregiver's questions and addressed any concerns. The patient and/or caregivers have as good an understanding of the patient's diagnosis, condition and treatment plan as can be expected at this point. The patient has been stabilized within the capability of the emergency department. Although the emergency department has completed all appropriate management and is prepared to transport the patient to an observation or inpatient service, there are no available beds. Therefore the patient will be placed in "ED Hold" status until such time as a bed becomes available. Critical Care Time Spent (minutes): 32 Services Performed Patient management by me, Time spent at bedside, Reviewing test results, Reviewing imaging, Discussing patient care, Documentation in record, Time with fam/surrogate Separately billable procedures excluded from time. at [address] [facility] #:[id number] END OF REPORT [facility]ACL
[2024-07-19 13:39] LABS: Absolute Lymphocytes (CBC) 0.5 K/uL (0.7-4.9); Absolute Monocytes 0.5 K/uL (0.1-1.3); Absolute Neutrophil 5.6 K/uL (1.8-8.0); Basophils % 0.5 % (0-1.3); Eosinophils % 0.2 % (0-4.4); Hematocrit 38.9 % (39.6-49.0); Hemoglobin 13.6 g/dL (13.6-17.9); Lymphocytes % 7.2 % (15.3-44.8); MCH 33.2 pg (27.0-35.0); MCHC 34.9 g/dL (32.0-36.0); MPV 10.3 fL (7.6-11.3); Monocytes % 8.2 % (3.3-12.3); Neutrophils % 83.9 % (41.7-73.7); Platelets 109 thou/uL (152-406); RBC Red Blood Cell Count 4.09 M/uL (4.33-5.43); Red Cell Distribution Width 13.2 % (12.1-15.2)
[2024-07-19 13:46] LABS: Specific Gravity 1.018 (1.005-1.030); Sqamous Epithelial <5 /HPF (None Seen); Urine Bacteria None Seen /HPF (<20); Urine Bilirubin NEGATIVE (Negative); Urine Blood Negative (Negative); Urine Clarity Clear (Clear); Urine Color Light-Yellow (Yellow); Urine Culture Reflex Order NOT NEEDED; Urine Glucose 4+ (Over) (Negative); Urine Ketones NEGATIVE (Negative); Urine Microscopic Reflex YN ORDER UMIC; Urine Nitrite NEGATIVE (Negative); Urine Protein TRACE (Negative); Urine RBC None Seen /HPF (None Seen); Urine Urobilinogen Normal (Normal); Urine WBC <5 /HPF (<5); Urine pH 5.5 (5.0-7.0)
[2024-07-19 13:56] LABS: Albumin 3.2 g/dL (3.4-5.0); Albumin/Globulin Ratio 0.9 (1.1-1.8); Anion Gap 11.4 mEq/L (5.0-15.0); Bilirubin Total 1.3 mg/dL (0.2-1.0); Globulin 3.7 g/dL (2.3-3.5); Potassium 4.4 mEq/L (3.5-5.1); Protein, Total 6.9 g/dL (6.4-8.2); Troponin High Sensitivity 22.5 pg/mL (<58.9)
--- NOTE | 2024-07-19 14:08 | RAD REPORT ---
EXAMINATION: Abdomen Pelvis Wo Contrast CLINICAL INDICATION: Male, 68 years old.ABD PAIN TECHNIQUE: CT abdomen and pelvis was performed, without IV contrast, as per department protocol. Axia l, sagittal and coronal reconstructions were obtained. One or more of the following dose reduction techniques were used: Automated exposure control, adjustment of the mA and/or kV according to the pat ient size, and/or iterative reconstruction. Unless otherwise specified, incidental findings do not require dedicated imaging follow-up. [id number]. IV CONTRAST: Not administered. COMPARISON: 08/22/2014 FINDINGS: The lack of intravenous contrast limits the sensitivity of this exam for evaluation of solid visceral organs, vascular structures, and retroperitoneum. LOWER CHEST: No acute process identified.No significant pericardial effusion. Severe coronary artery calcifcations.Mild circumferential thickening of the distal esophagus which could reflect esophagitis. Aortic valve and mitral annular calcifications. UPPER GI: Diffuse gastric wall thickening which may be related to portal hypertension. LIVER: Pronounced nodular liver configuration which has progressed from prior. There is diffuse high attenuation of the liver parenchyma which could be from iron deposition. Capsular retraction present in segment 4 of liver with areas of confluent hypoattenuation. GALLBLADDER/BILE DUCTS: Distended gallbladder with cholelithiasis and gallbladder wall thickening.? PANCREAS: Atrophy but no acute findings. SPLEEN: Unremarkable. ADRENALS: No adrenal masses. KIDNEYS AND URETERS: No hydronephrosis.No suspicious renal mass.No renal calculi.No ureteral calculi. ABDOMINAL AORTA AND OTHER VESSELS: Moderate atherosclerotic changes without aortic aneurysm. PERITONEUM: Mild ascites. LYMPH NODES: No pathologic lymphadenopathy. ABDOMINAL WALL: Unremarkable SMALL BOWEL/COLON: Small bowel has normal course and caliber. No colonic wall thickening or pericolon ic inflammatory changes.Appendix absent. URINARY BLADDER: Nonspecific circumferential bladder wall thickening. REPRODUCTIVE ORGANS: No pathologic process. MUSCULOSKELETAL: Multilevel degenerative changes in the spine. No acute fracture. ADDITIONAL FINDINGS: None. IMPRESSION: Cholelithiasis with gallbladder wall thickening and distention. This could reflect acute cholecystiti s in the appropriate clinical setting. Cirrhotic liver morphology with pronounced lobular configuration. Capsular retraction and areas of co nfluent hypoattenuation in segment 4 of the liver is not well assessed. This could reflect fibrosis however recommend nonemergent hepatic protocol MRI for further evaluation. The liver is otherwise dif fusely hyperattenuating which could be from iron deposition or amiodarone usage. Gastric and bowel wall thickening with ascites can be seen as manifestations of portal hypertension.
--- NOTE | 2024-07-19 14:21 | ER ---
Nurse's Notes [facility] Name: Devonte Gil Age: 68 yrs Sex: Male : 1955 Arrival Date: 07/19/2024 Time: 12:43 Bed 14 [facility] MD: Diagnosis: Liver cirrhosis, chronic kidney disease Presentation: 07/19 12:57 Chief complaint: Patient states: he's in kidney right now, he went to [facility] office iw and they told him to come to ER , he has not been eating, is nauseous, having diarrhea, weak, tired. Coronavirus screen: At this time, the client does not indicate any symptoms associated with coronavirus-19. Ebola Screen: No symptoms or risks identified at this time. Initial Sepsis Screen: Does the patient meet any 2 criteria? No. Patient's initial sepsis screen is negative. Does the patient have a suspected source of infection? No. Patient's initial sepsis screen is negative. Risk Assessment: Do you want to hurt yourself or someone else? Patient reports no desire to harm self or others. 12:57 Method Of Arrival: Ambulatory iw 12:57 Acuity: FABI 3 iw Historical: - Allergies: 12:59 No Known Allergies; iw - Home Meds: 13:16 Iron CR Oral 65 mg daily [Active]; metformin 500 mg Oral tablet 2 times per day iw [Active]; aspirin 81 mg Oral tablet daily [Active]; pravastatin 40 mg oral tablet every day at bedtime [Active]; terazosin 2 mg oral capsule daily [Active]; spironolactone 25 mg Oral tablet daily [Active]; levothyroxine 50 mcg capsule daily [Active]; Jardiance 10 mg oral tablet daily [Active]; hydrochlorothiazide 50 mg Oral tablet daily [Active]; clopidogrel 75 mg oral tablet [Active]; potassium chloride 10 mEq Oral capsule, extended release 2 times per day [Active]; metoprolol tartrate 25 mg Oral tablet daily [Active]; - PMHx: 12:59 Diabetes - NIDDM; High Cholesterol (Hypertension); Hypertension; Kidney disease; iw - PSHx: 12:59 Coronary artery bypass graft; iw - Immunization history:: Adult Immunizations unknown. - Infectious Disease History:: Denies. - Social history:: Smoking status: Patient denies any tobacco usage or history of. Screenin:30 [facility] ED Fall Risk Assessment (Adult) History of falling in the last 3 months, db including since admission No falls in past 3 months (0 pts) Confusion or Disorientation No (0 pts) Intoxicated or Sedated No (0 pts) Impaired Gait No (0 pts) Mobility Assist Device Used No (0 pt) Altered Elimination No (0 pt) Score/Fall Risk Level 0 - 2 = Low Risk Oriented to surroundings, Maintained a safe environment. Abuse screen: Denies threats or abuse. Denies injuries from another. Nutritional screening: No deficits noted. Tuberculosis screening: No symptoms or risk factors identified. Assessment: 13:30 General: Appears in no apparent distress. comfortable, Behavior is calm, cooperative. db Pain: Complains of pain in abdomen. Neuro: Level of Consciousness is awake, alert, obeys commands, Oriented to person, place, time, situation. Respiratory: Airway is patent Respiratory effort is even, unlabored, Respiratory pattern is regular, symmetrical. GI: Bowel sounds present X 4 quads. Abd is soft. 14:43 Reassessment: Patient appears in no apparent distress at this time. Patient and/or db family updated on plan of care and expected duration. Pain level reassessed. Patient is alert, oriented x 3, equal unlabored respirations, skin warm/dry/pink. Patient states feeling better. Patient states symptoms have improved. Vital Signs: 12:57 BP 136 / 73; Pulse 58; Resp 19; Pulse Ox 99% on R/A; Weight 71.21 kg; Height 5 ft. 9 iw in. ; 13:30 BP 113 / 90; Pulse 54; Resp 16; Pulse Ox 99% on R/A; db 14:00 BP 122 / 59; Pulse 56; Resp 18; Pulse Ox 96% on R/A; db 14:30 BP 112 / 59; Pulse 51; Resp 16; Pulse Ox 97% on R/A; db 12:57 Body Mass Index 23.18 (71.21 kg, 175.26 cm) iw Vitals: 14:00 Cardiac Rhythm Assessment Regular Sinus rhythm. db ED Course: 12:46 Patient arrived in ED. gl 12:49 Kailey Portillo MD is Attending Physician. sp3 12:59 Triage completed. iw 13:01 Arm band placed on. iw 13:15 Initial lab(s) drawn, by me, sent to lab. Inserted saline lock: 22 gauge in right upper db arm, using aseptic technique. Blood collected. Flushed with 10 mL NS. Patient maintains SpO2 saturation greater than 95% on room air. 13:30 Patient has correct armband on for positive identification. Bed in low position. Call db light in reach. Side rails up X 1. Client placed on continuous cardiac and pulse oximetry monitoring. NIBP monitoring applied. air sampling and monitoring on. Pulse ox on. NIBP on. Warm blanket given. 13:50 CT Abd/Pelvis - Without Contrast In Process Unspecified. EDMS 14:38 Mary Goodson, RN is Primary Nurse. db 14:41 No provider procedures requiring assistance completed. db 14:44 Provided Education on: DISCHARGE AND FOLLOWUP. db 14:51 IV discontinued, intact, bleeding controlled, No redness/swelling at site. db Administered Medications: No medications were administered Medication: 14:43 VIS not applicable for this client. db Outcome: 14:20 Discharge ordered by . sp3 14:41 Discharged to home ambulatory, with family, db 14:41 Condition: stable 14:41 Discharge instructions given to patient, family, Instructed on discharge instructions, follow up and referral plans. 14:52 Patient left the ED. db Signatures: Dispatcher [employer] EDMS Beatriz Sanchez, Kailey Alejandra RN, MD MD sp3 Mary Goodson, RAMIN RN Sara Sapp, Reg Reg gl
--- NOTE | 2024-07-19 14:21 | EDPHYS ---
Physician Documentation [facility] Name: Devonte Gil Age: 68 yrs Sex: Male : 1955 Arrival Date: 07/19/2024 Time: 12:43 Bed 14 Private MD: ED Physician Kailey Portillo HPI: 07/19 14:15 This 68 yrs old Male presents to ER via Ambulatory with complaints of Flank sp3 Pain, Abdominal Swelling. 14:15 68-year-old male with history of diabetes, hyperlipidemia, known kidney disease, known sp3 liver failure/cirrhosis secondary to alcoholism now presents to the ED with chief complaint generalized malaise, weakness and decreased appetite. Patient was sent by the clinic to assess for possible ascites. Patient denies any chest pain, shortness of breath, fever, or any other signs or symptoms on ROS at this time. . Historical: - Allergies: 12:59 No Known Allergies; iw - Home Meds: 13:16 Iron CR Oral 65 mg daily [Active]; metformin 500 mg Oral tablet 2 times per day iw [Active]; aspirin 81 mg Oral tablet daily [Active]; pravastatin 40 mg oral tablet every day at bedtime [Active]; terazosin 2 mg oral capsule daily [Active]; spironolactone 25 mg Oral tablet daily [Active]; levothyroxine 50 mcg capsule daily [Active]; Jardiance 10 mg oral tablet daily [Active]; hydrochlorothiazide 50 mg Oral tablet daily [Active]; clopidogrel 75 mg oral tablet [Active]; potassium chloride 10 mEq Oral capsule, extended release 2 times per day [Active]; metoprolol tartrate 25 mg Oral tablet daily [Active]; - PMHx: 12:59 Diabetes - NIDDM; High Cholesterol (Hypertension); Hypertension; Kidney disease; iw - PSHx: 12:59 Coronary artery bypass graft; iw - Immunization history:: Adult Immunizations unknown. - Infectious Disease History:: Denies. - Social history:: Smoking status: Patient denies any tobacco usage or history of. ROS: 14:17 Eyes: Negative for injury, pain, redness, and discharge, Neck: Negative for injury, sp3 pain, and swelling, Cardiovascular: Negative for chest pain, palpitations, and edema, Respiratory: Negative for shortness of breath, cough, wheezing, and pleuritic chest pain, Back: Negative for injury and pain, MS/Extremity: Negative for injury and deformity, Skin: Negative for injury, rash, and discoloration, Neuro: Negative for headache, weakness, numbness, tingling, and seizure, Psych: Negative for depression, anxiety, suicide ideation, homicidal ideation, and hallucinations, Allergy/Immunology: Negative for hives, rash, and allergies, Endocrine: Negative for neck swelling, polydipsia, polyuria, polyphagia, and marked weight changes, 14:17 All other systems are negative, Exam: 14:17 Constitutional: This is a well developed, well nourished patient who is awake, alert, sp3 and in no acute distress. Head/Face: Normocephalic, atraumatic. Eyes: Pupils equal round and reactive to light, extra-ocular motions intact. Lids and lashes normal. Conjunctiva and sclera are non-icteric and not injected. Cornea within normal limits. Periorbital areas with no swelling, redness, or edema. Neck: Trachea midline, no thyromegaly or masses palpated, and no cervical lymphadenopathy. Supple, full range of motion without nuchal rigidity, or vertebral point tenderness. No Meningismus. Chest/axilla: Normal chest wall appearance and motion. Nontender with no deformity. No lesions are appreciated. Cardiovascular: Regular rate and rhythm with a normal S1 and S2. No gallops, murmurs, or rubs. Normal PMI, no JVD. No pulse deficits. Respiratory: Lungs have equal breath sounds bilaterally, clear to auscultation and percussion. No rales, rhonchi or wheezes noted. No increased work of breathing, no retractions or nasal flaring. Back: No spinal tenderness. No costovertebral tenderness. Full range of motion. Skin: Warm, dry with normal turgor. Normal color with no rashes, no lesions, and no evidence of cellulitis. MS/ Extremity: Pulses equal, no cyanosis. Neurovascular intact. Full, normal range of motion. Neuro: Awake and alert, GCS 15, oriented to person, place, time, and situation. Cranial nerves II-XII grossly intact. Motor strength 5/5 in all extremities. Sensory grossly intact. Cerebellar exam normal. Normal gait. Psych: Awake, alert, with orientation to person, place and time. Behavior, mood, and affect are within normal limits. 14:17 Abdomen/GI: Abdomen soft, nontender nondistended with no fluid wave noted. No peritonitis., 14:19 ECG was reviewed by the Attending Physician. EKG demonstrates sinus bradycardia at 54 sp3 bpm with right bundle branch block nonspecific diffuse ST/T changes without evidence of acute ischemia. Vital Signs: 12:57 BP 136 / 73; Pulse 58; Resp 19; Pulse Ox 99% on R/A; Weight 71.21 kg; Height 5 ft. 9 iw in. ; 13:30 BP 113 / 90; Pulse 54; Resp 16; Pulse Ox 99% on R/A; db 14:00 BP 122 / 59; Pulse 56; Resp 18; Pulse Ox 96% on R/A; db 14:30 BP 112 / 59; Pulse 51; Resp 16; Pulse Ox 97% on R/A; db 12:57 Body Mass Index 23.18 (71.21 kg, 175.26 cm) iw MDM: 13:05 Medical Screening Exam initiated sp3 14:18 Data reviewed: vital signs, nurses notes, old medical records, lab test result(s), sp3 radiologic studies. ED course: CT demonstrates small amount of ascites. No drainable amount or large pocket noted. T. bili at 1.2 with transaminases elevated along known history. Creatinine at 3.7. No significant new findings noted. Vital signs remain normal. We will discharge patient to continued outpatient monitoring and GI follow-up. I have also told him he needs to see hepatology at a tertiary center to try and obtain transplant list status.. 07/19 13:12 Order name: CBC with Diff; Complete Time: 14:06 sp3 07/19 13:12 Order name: CMP; Complete Time: 14:06 sp3 07/19 13:12 Order name: Lipase; Complete Time: 14:06 sp3 07/19 13:12 Order name: Urinalysis w/ reflexes; Complete Time: 14:06 sp3 07/19 13:12 Order name: Lactate w/ 2H reflex if indic.; Complete Time: 14:06 sp3 07/19 13:12 Order name: Troponin High Sensitivity; Complete Time: 14:06 sp3 07/19 13:12 Order name: CT Abd/Pelvis - Without Contrast; Complete Time: 14:12 sp3 07/19 13:12 Order name: IV Saline Lock; Complete Time: 13:39 sp3 07/19 13:12 Order name: Labs collected and sent; Complete Time: 13:39 sp3 07/19 13:12 Order name: EKG - Nurse/Tech; Complete Time: 13:39 sp3 Administered Medications: No medications were administered Disposition Summary: 07/19/24 14:20 Discharge Ordered Notes: Location: Home sp3 Condition: Stable sp3 Diagnosis - Liver cirrhosis, chronic kidney disease sp3 Followup: sp3 - With: Private Physician - When: Upon discharge from the Emergency Department - Reason: If symptoms return, Continuance of care Discharge Instructions: - Discharge Summary Sheet sp3 - Cirrhosis sp3 - Chronic Kidney Disease, Adult sp3 Forms: - Medication Reconciliation Form sp3 - Antibiotic Education sp3 - Prescription Opioid Use sp3 - Patient Portal Instructions sp3 - Leadership Thank You Letter sp3 Signatures: Dispatcher [employer] EDBeatriz Martinez RN RN iw Kailey Portillo MD MD sp3 Mary Goodson RN RN db Corrections: (The following items were deleted from the chart) 13:13 13:13 CBC+H.LAB.BRZ ordered. EDMS EDMS 13:13 13:13 COMPREHENSIVE METABOLIC PANEL+C.LAB.BRZ ordered. EDMS EDMS 13:13 13:13 LIPASE+C.LAB.BRZ ordered. EDMS EDMS 13:13 13:13 Urinalysis+U.LAB.BRZ ordered. EDMS EDMS 13:13 13:13 LACTATE+C.LAB.BRZ ordered. EDMS EDMS 13:13 13:13 Troponin High Sensitivity+C.LAB.BRZ ordered. EDMS EDMS
[2024-07-19 16:09] VITALS: BP 112/59; O2SAT 97
--- NOTE | 2024-07-20 12:12 | EKG ---
Test Date: 2024-07-19 Test Time: 13:37:35 Curam Developer: AIDEN MEASUREMENT RESULTS: Intervals: Rate: 54 [place]: 174 QRSD: 182 QT: 562 QTc: 532 [place]: P: 61 [place]: 174 QRS: -74 T: 54 INTERPRETIVE STATEMENTS: Sinus bradycardia Possible Left atrial enlargement Right bundle branch block Left anterior fascicular block Bifascicular block Septal infarct, age undetermined Abnormal ECG Compared to ECG 02/28/2024 06:26:54 Left anterior fascicular block now present Bifascicular block now present Left-axis deviation no longer present Myocardial infarct finding still present Electronically Signed On 07-20-24 12:09:13 CDT by Joao Wise
== END 2024-07-19 14:52 | disposition home or self-care (01) ==
LOC: ER 12:43
DX: K74.60 Unspecified cirrhosis of liver (principal); E11.22 Type 2 diabetes mellitus with diabetic chronic kidney disease; I12.9 Hypertensive chronic kidney disease with stage 1 through stage 4 chronic kidney disease, or unspecified chronic kidney disease; N18.9 Chronic kidney disease, unspecified; Z95.1 Presence of aortocoronary bypass graft; F10.20 Alcohol dependence, uncomplicated
CPT/HCPCS: 36415; 74176; 80053; 81001; 83605; 83690; 84484; 85025; 93005; 99284

== ENCOUNTER 2024-07-24 09:25 | Inpatient (IN) | payer OTHER ==
--- OUTSIDE RECORDS SUMMARY | 2024-07-24 09:40 | XMS REPORT | Continuity of Care Document ---
Author Name Unknown Address [address] [facility] [address] [place] [address] Organization [facility] Address [address] [facility] [address] [place] [address] Care Team Providers Care Residence Counselor Name Role Phone Kaveh Portillo Primary Care Physician + [phone] Kaveh Portillo Attending Clinician Unavailable L_Pena Attending Clinician Unavailable Bladimir Morse Attending Clinician Unav ailable MERCEDES RILEY Attending Clinician Unavailab luis PAYNE_Lanie Attending Clinician Unavailable Doctor Unassigned, [place] Attending Clinician U Neil Ruggiero DO Attending Clinician [phone] TK YANES Attending Clinician Unavailable Becki Gil MD Attending Clinician [phone] BECKI GIL Attending Clinician Unavailable L_Pena Admitting Clinician Unavailable Talat Lord Admitting Clinician Unavailable TOPHER TAYLOR Admitting Clinician Rochelle [place] CHRGUILLERMO_F Admitting Clinician Unavailable Payers Payer Name Policy Type Policy Number Effective Date Expirati on Date Source [place] [id number] 2018 00:00:[place] [id number] 2018 00:00:00 [employer] [place] 6 [id number] 2017 00:00:00 [facility] Problems Condition Name Condition Details Condition Category Status Onset Date Resolution Date Last Treatment Date Treating Clinician Comments Source Chronic kidney disease stage 3B Chronic Kidney Disease Stage 3B Problem Active 04-04 00:00: 00 [facility] Hypothyroi dism Hypothyroi dism Problem Active 8 00:00: 00 [facility] Coronary arterioscl erosis Coronary Arterioscl erosis Problem Active 4- 00:00: 00 [facility] History of coronary artery bypass grafting History of Coronary Artery Bypass Grafting Problem Active 4-08 00:00: 00 [facility] Myocardial infarction Myocardial Infarction Problem Active 3-04 00:00: 00 [facility] Mixed hyperlipid emia Mixed Hyperlipid emia Problem Active 05-11 00:00: 00 [facility] Cirrhosis of liver Cirrhosis of Liver Problem Active 2022-03 220 00:00: 00 [facility] Type 2 diabetes mellitus Type 2 Diabetes Mellitus Problem Active 2022-03 00:00: 00 [facility] Posttrauma tic stress disorder Posttrauma tic Stress Disorder Problem Active 2022-03 00:00: 00 [facility] Insomnia Insomnia Problem Active 2022-03 00:00: 00 [facility] Hypertensi ve disorder Hypertensi ve Disorder Problem Active 2022-03 00:00: 00 [facility] Morbid obesity due to excess calories Morbid obesity due to excess calories Disease Active 12-16 00:00: 00 [facility] Dyslipidem ia Dyslipidem ia Disease Active 12-16 00:00: 00 [facility] Essential hypertensi on Essential hypertensi on Disease Active 12-16 00:00: 00 [facility] History of hepatitis C History of Hepatitis C Problem Active [facility] [id number] Urge incontinen ce Problem [facility] Urethral stricture Urethral stricture Problem [facility] Chronic hepatitis C Chronic hepatitis C Problem [facility] Gastrointe stinal hemorrhage Gastrointe stinal hemorrhage Problem [facility] [id number] BPH loc w urin obs/LUTS Problem [facility] Chronic gastritis Chronic gastritis Problem [facility] Benign essential hypertensi on Benign essential hypertensi on Problem [facility] Erectile dysfunctio n Erectile dysfunctio n Problem [facility] [id number] Allergic rhinitis with mild intermitte nt asthma without status asthmaticu s without complicati on Problem [facility] Benign prostatic hyperplasi a BPH (benign prostatic hyperplasi a) Problem [facility] Benign prostatic hypertroph y without outflow obstructio n BPH without urinary obstructio n Problem [facility] Oesophagea l varices without bleeding Secondary esophageal varices without bleeding Problem [facility] [id number] Diaphragma tic hernia without obstructio n or gangrene Problem [facility] Dizziness Dizziness Problem [facility] Iron deficiency anemia due to chronic blood loss Iron deficiency anemia due to chronic blood loss Problem [facility] [id number] Microalbum inuria Problem [facility] [id number] Subclinica l hypothyroi dism Problem [facility] Syncope Syncope Problem [facility] [id number] Noncomplia nce with dietary restrictio n Problem [facility] [id number] Adult BMI 35.0-35.9 kg/sq m Problem [facility] [id number] Gross hematuria Problem [facility] [id number] Erectile dysfunctio n, unspecifie d erectile dysfunctio n type Problem [facility] [id number] Acquired contractur e of bladder neck Problem [facility] [id number] Balanopost hitis Problem [facility] Type II diabetes mellitus without complicati on Diabetes mellitus type 2, uncontroll ed, without complicati ons Problem [facility] [id number] OAB (overactiv e bladder) Problem [facility] [id number] Gastro-eso phageal reflux disease without esophagiti s Problem [facility] 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 Problem [facility] [id number] ED (erectile dysfunctio n) of organic origin Problem [facility] [id number] S/P TURP Problem [facility] [id number] Scrotal skin lesion Problem [facility] [id number] Other ejaculator y dysfunctio n Problem [facility] Allergies, Adverse Reactions, Alerts Allergy Name Allergy Type Status Severity Reaction(s) Onset Date Inactive Date Treating Clinician Comments Source No Known Allergie s DA Active U 05-30 00:00: 00 [facility] Losartan Propensi ty to adverse reaction s Active Cough 10-14 00:00: 00 [facility] LOSARTAN DRUG INGREDI Active COUGH 10-14 00:00: 00 [facility] No Known Drug Intolera nces DA Active U 08-16 00:00: 00 [facility] No Known Contrast Allergie s DA Active U 08-15 00:00: 00 [facility] No Known Drug Allergie s DA Active U 08-15 00:00: 00 [facility] No Known Food Allergie s DA Active U 08-15 00:00: 00 [facility] No Known Other Allergie s DA Active U 08-15 00:00: 00 [facility] Social History Social Habit Start Date Stop Date Quantity Comments Source History of Tobacco Use [facility] Sex Assigned At [facility] Sexual orientation U [facility] Exposure to SARS-CoV-2 (event) Not sure [facility] History of Social function 2020-02-21 00:00:00 2020-02-21 00:00:00 [facility] Tobacco use and exposure 2020-02-21 00:00:00 2020-02-21 00:00:00 Smokeless tobacco non-user [facility] Alcohol intake 2020-02-21 00:00:00 2020-02-21 00:00:00 Current non-drinker of alcohol (finding) [facility] Smoking Status Start Date Stop Date Source Never Smoker [facility] Ex-smoker 2020-02-21 00:00:00 2020-02-21 00:00:00 [facility] Medications Ordered Medication Name Filled Medication Name Start Date Stop Date Current Medication? Ordering Clinician Indication Dosage Frequency Signature (SIG) Comments Components Source potassium chloride ER 10 mEq tablet,exte nded release potassium chloride ER 10 mEq tablet,exte nded release 9-10 00:00: 00 No potassium chloride ER 10 mEq tablet,ext ended release [facility] traZODone HCl 50 MG traZODone HCl 50 MG 2020- 8-12 00:00: 00 No QD traZODone HCl [...] t} QD VESIcare 5 MG Nystatin-Tr iamcinolone 325687-2.1 UNIT/GM Nystatin-Tr iamcinolone 651314-6.1 UNIT/GM 1-0 18 00:00: 00 09-05 00:00 :00 No 1{appli cation} BID Nystatin-T riamcinolo ne 168501-6.1 UNIT/GM Nystatin-Tr iamcinolone 189169-7.1 UNIT/GM Nystatin-Tr iamcinolone 556779-4.1 UNIT/GM 1-0 18 00:00: 00 09-05 00:00 :00 No 1{appli cation} BID Nystatin-T riamcinolo ne 582237-0.1 UNIT/GM Tadalafil 20 MG Tadalafil 20 MG [...] mouth 2 (two) times daily with meals. [facility] aspirin 81 mg EC tablet 2019-03 14:55: 06 Yes 81mg Take 81 mg by mouth daily. [facility] GLUCOSAMINE SULFATE (GLUCOSAMIN E ORAL) 2019-03 14:55: 06 Yes 4000mg Take 4,000 mg by mouth daily. [facility] guaiFENesin (MUCINEX) 600 mg tablet 2019-03 14:55: 06 Yes 600mg Take 600 mg by mouth every 12 (twelve) hours. [facility] carvedilol 25 mg tablet 2019-03 08:55: 06 Yes 25mg Take 25 mg by mouth 2 (two) times daily with meals. [facility] aspirin 81 mg EC tablet 2019-03 08:55: 06 Yes 81mg Take 81 mg by mouth daily. [facility] GLUCOSAMINE SULFATE (GLUCOSAMIN E ORAL) 2019-03 08:55: 06 Yes 4000mg Take 4,000 mg by mouth daily. [facility] guaiFENesin (MUCINEX) 600 mg tablet 2019-03 08:55: 06 Yes 600mg Take 600 mg by mouth every 12 (twelve) hours. [facility] hydroCHLORO thiazide 25 mg tablet 2017-03 00:00: 00 Yes 25mg Take 1 tablet by mouth daily. [facility] carvedilol 25 mg tablet 07-21 18:08: 35 Yes 25mg Take 25 mg by mouth 2 (two) times daily with meals. [facility] aspirin 81 mg EC tablet 07-21 18:08: 35 Yes 81mg Take 81 mg by mouth daily. [facility] GLUCOSAMINE SULFATE (GLUCOSAMIN E ORAL) 07-21 18:08: 35 Yes 4000mg Take 4,000 mg by mouth daily. [facility] guaiFENesin (MUCINEX) 600 mg tablet 07-21 18:08: 35 Yes 600mg Take 600 mg by mouth every 12 (twelve) hours. [facility] empaglifloz in (JARDIANCE) 25 mg Tab 06-30 00:00: 00 Yes [id number] Take 1 TAB-CAP/M2 by mouth daily. [facility] atorvastati n 20 mg tablet 06-30 00:00: 00 Yes [id number] 20mg Take 1 tablet by mouth at bedtime. [facility] amiodarone 200 mg tablet Take 1 tablet 3 times a day by oral route. amiodarone 200 mg tablet Take 1 tablet 3 times a day by oral route. No amiodarone 200 mg tablet Take 1 tablet 3 times a day by oral route. [facility] aspirin aspirin No aspirin S [facility] bumetanide 1 mg tablet 4 tabs BID bumetanide 1 mg tablet 4 tabs BID No bumetanide 1 mg tablet 4 tabs BID [facility] clopidogrel 75 mg tablet TAKE 1 TABLET BY MOUTH EVERY DAY clopidogrel 75 mg tablet TAKE 1 TABLET BY MOUTH EVERY DAY No 1 Q1D clopidogre l 75 mg tablet TAKE 1 TABLET BY MOUTH EVERY DAY [facility] metoprolol tartrate 25 mg tablet 1/2 tab bid metoprolol tartrate 25 mg tablet 1/2 tab bid No metoprolol tartrate 25 mg tablet 1/2 tab bid [facility] montelukast 10 mg tablet Take 1 tablet every day by oral route for 90 days. montelukast 10 mg tablet Take 1 tablet every day by oral route for 90 days. No montelukas t 10 mg tablet Take 1 tablet every day by oral route for 90 days. [facility] pantoprazol e 40 mg tablet,delvin yed release Take 1 tablet every day by oral route for 90 days. pantoprazol e 40 mg tablet,delvin yed release Take 1 tablet every day by oral route for 90 days. No pantoprazo le 40 mg tablet,del ayed release Take 1 tablet every day by oral route for 90 days. [facility] pravastatin 40 mg tablet TAKE 1 TABLET BY MOUTH EVERY NIGHT AT BEDTIME pravastatin 40 mg tablet TAKE 1 TABLET BY MOUTH EVERY NIGHT AT BEDTIME No pravastati n 40 mg tablet TAKE 1 TABLET BY MOUTH EVERY NIGHT AT BEDTIME [facility] spironolact one 25 mg tablet Take 1 tablet twice a day by oral route. spironolact one 25 mg tablet Take 1 tablet twice a day by oral route. No spironolac tone 25 mg tablet Take 1 tablet twice a day by oral route. [facility] terazosin 2 mg capsule TAKE 1 CAPSULE BY MOUTH EVERY DAY terazosin 2 mg capsule TAKE 1 CAPSULE BY MOUTH EVERY DAY No terazosin 2 mg capsule TAKE 1 CAPSULE BY MOUTH EVERY DAY [facility] hydrochloro thiazide 50 mg tablet Take 1 tablet every day by oral route in the morning for 90 days. hydrochloro thiazide 50 mg tablet Take 1 tablet every day by oral route in the morning for 90 days. No hydrochlor othiazide 50 mg tablet Take 1 tablet every day by oral route in the morning for 90 days. [facility] Multivitami n 50 Plus Multivitami n 50 Plus No Multivitam in 50 Plus [facility] Vitamin B1 100 mg tablet Take 1 tablet every day by oral route. Vitamin B1 100 mg tablet Take 1 tablet every day by oral route. No 1 Q1D Vitamin B1 100 mg tablet Take 1 tablet every day by oral route. [facility] Vitamin B12 500 mcg tablet Take 1 tablet every day by oral route. Vitamin B12 500 mcg tablet Take 1 tablet every day by oral route. No 1 Q1D Vitamin B12 500 mcg tablet Take 1 tablet every day by oral route. [facility] Vitamin D3 5000 units daily Vitamin D3 5000 units daily No Vitamin D3 5000 units daily [facility] BD Ultra-Fine Mini Pen Needle 31 gauge x 3/16" DIRECTED BD Ultra-Fine Mini Pen Needle 31 gauge x 3/16" DIRECTED No BD Ultra-Fine Mini Pen Needle 31 gauge x 3/16" DIRECTED [facility] Jardiance 10 mg tablet Take 1 tablet every day by oral route in the morning for 90 days. Jardiance 10 mg tablet Take 1 tablet every day by oral route in the morning for 90 days. No 1 Q1D Jardiance 10 mg tablet Take 1 tablet every day by oral route in the morning for 90 days. [facility] Mounjaro 2.5 mg/0.5 mL subcutaneou s pen injector Inject 2.5 mg every week by subcutaneou s route for 84 days. Mounjaro 2.5 mg/0.5 mL subcutaneou s pen injector Inject 2.5 mg every week by subcutaneou s route for 84 days. No 2.5mg Q1W Mounjaro 2.5 mg/0.5 mL subcutaneo us pen injector Inject 2.5 mg every week by subcutaneo us route for 84 days. [facility] FreeStyle Nikki 3 Sensor device USE DIRECTED FreeStyle Nikki 3 Sensor device USE DIRECTED No FreeStyle Nikki 3 Sensor device USE DIRECTED [facility] levothyroxi ne 125 mcg tablet Take 1 tablet every day by oral route in the morning for 90 days. levothyroxi ne 125 mcg tablet Take 1 tablet every day by oral route in the morning for 90 days. No 1 Q1D levothyrox ine 125 mcg tablet Take 1 tablet every day by oral route in the morning for 90 days. [facility] metformin 500 mg tablet TAKE 1 TABLET BY MOUTH 2 TIMES A DAY metformin 500 mg tablet TAKE 1 TABLET BY MOUTH 2 TIMES A DAY No metformin 500 mg tablet TAKE 1 TABLET BY MOUTH 2 TIMES A DAY [facility] mupirocin 2 % topical ointment APPLY A SMALL AMOUNT TO THE AFFECTED AREA BY TOPICAL ROUTE 3 TIMES PER DAY mupirocin 2 % topical ointment APPLY A SMALL AMOUNT TO THE AFFECTED AREA BY TOPICAL ROUTE 3 TIMES PER DAY No mupirocin 2 % topical ointment APPLY A SMALL AMOUNT TO THE AFFECTED AREA BY TOPICAL ROUTE 3 TIMES PER DAY [facility] Toujeo Max U-300 SoloStar 300 unit/mL (3 [...] route in the morning for 90 days. [facility] FreeStyle Nikki 2 Sensor kit USE DIRECTED. FreeStyle Nikki 2 Sensor kit USE DIRECTED. No FreeStyle Nikki 2 Sensor kit USE DIRECTED. [facility] Amlodipine Besylate Amlodipine Besylate Yes Virgen Pollock 1 cap daily [facility] Spironolact one Spironolact one Yes Virgen Pollock 1 tablet with food [facility] Jardiance Jardiance Yes Virgen Carrolllee 1 tablet [facility] Pantoprazol e Sodium Pantoprazol e Sodium Yes Virgen Byrde 1 tablet [facility] Pravachol Pravachol Yes Virgen Byrde 1 tablet [facility] Aspirin 81 Aspirin 81 Yes Virgen Byrde 1 tablet [facility] ProAir HFA ProAir HFA Yes Virgen Pollock 2 puffs as needed [facility] Trulicity Trulicity Yes Virgen Pollock Inject 0.5 ml [facility] Ferrous Sulfate Ferrous Sulfate Yes Virgen Byrde 1 tablet [facility] Glucosamine Glucosamine Yes Virgen Pollock not defined [facility] Toujeo SoloStar Toujeo SoloStar Yes Virgen Pollock INJECT 68 UNITS UNDER THE SKIN DAILY [facility] Terazosin HCl Terazosin HCl Yes Virgen Pollock 1 capsule [facility] MetFORMIN HCl ER MetFORMIN HCl ER Yes Virgen Pollock 2 tablets [facility] BD Pen Needle Mini U/F BD Pen Needle Mini U/F Yes Virgen Pollock as directed [facility] Tamsulosin HCl Tamsulosin HCl Yes Virgen Phill 1 capsule [facility] Coreg Coreg Yes Virgen Phill 1 cap [facility] Hydrochloro thiazide Hydrochloro thiazide Yes Virgensheri Pollock 1 tablet in the morning [facility] Trelegy Ellipta Trelegy Ellipta Yes Virgen Phill 1 puff [facility] Jardiance 25 MG Jardiance 25 MG No 1{table t} QD Jardiance 25 MG Pravachol 40 MG Pravachol 40 MG No 1{table t} QD Pravachol 40 MG Hydrochloro thiazide 25 MG Hydrochloro thiazide 25 MG No 1{table t_in_ e_morni ng} QD Hydrochlor othiazide 25 MG Toujeo SoloStar 300 UNIT/ML Toujeo SoloStar 300 UNIT/ML No QD Toujeo SoloStar 300 UNIT/ML Ferrous Sulfate 325 (65 Fe) MG Ferrous Sulfate 325 (65 Fe) MG No 1{table t} BID Ferrous Sulfate 325 (65 Fe) MG Anoro Ellipta 62.5mcg/25 mcg Anoro Ellipta 62.5mcg/25 mcg No Anoro Ellipta 62.5mcg/25 mcg Spironolact one 25 MG Spironolact one 25 [...] MG No BID Co reg 25 MG Amlodipine Besylate 10 MG Amlodipine Besylate 10 [...] Hydrochloro thiazide 25 MG No 1{table t_in_th e_morni ng} QD Hydrochlor othiazide 25 MG [...] MG hydroCHLORO thiazide 25 MG No 1{table t_in_ e_morni ng} QD hydroCHLOR Othiazide 25 MG [...] COVID-19 Vaccine (Low Dose Booster) 2021-02-14 16:19:00 [facility] Moderna COVID-19 Vaccine (Low Dose Booster) Moderna COVID-19 Vaccine (Low Dose Booster) 2021-02-14 16:19:00 [facility] Moderna COVID-19 Vaccine (Low Dose Booster) Moderna COVID-19 Vaccine (Low Dose Booster) 2021-02-14 16:19:00 Completed [facility] Moderna COVID-19 Vaccine (Low Dose Booster) Moderna COVID-19 Vaccine (Low Dose Booster) 2021-02-14 16:19:00 Completed [facility] FluAD FluAD 2021-01-22 15:47:00 Completed [facility] FluAD FluAD 2021-01-22 15:47:00 Completed [facility] FluAD FluAD 2021-01-22 15:47:00 Completed [facility] FluAD FluAD 2021-01-22 15:47:00 Completed [facility] Pneumovax (PPSV23) Pneumovax (PPSV23) 2021-01-22 15:46:00 Completed [facility] Pneumovax (PPSV23) Pneumovax (PPSV23) 2021-01-22 15:46:00 Completed [facility] Pneumovax (PPSV23) Pneumovax (PPSV23) 2021-01-22 15:46:00 Completed [facility] Pneumovax (PPSV23) Pneumovax (PPSV23) 2021-01-22 15:46:00 Completed [facility] Moderna COVID-19 Vaccine Moderna COVID-19 Vaccine 2020-06-26 15:30:00 Completed [facility] Moderna COVID-19 Vaccine Moderna COVID-19 Vaccine 2020-06-26 15:30:00 Completed [facility] Moderna COVID-19 Vaccine Moderna COVID-19 Vaccine 2020-06-26 15:30:00 Completed [facility] Moderna COVID-19 Vaccine Moderna COVID-19 Vaccine 2020-06-26 15:30:00 Completed [facility] Moderna COVID-19 Vaccine Moderna COVID-19 Vaccine 2020-05-29 15:30:00 Completed [facility] Moderna COVID-19 Vaccine Moderna COVID-19 Vaccine 2020-05-29 15:30:00 Completed [facility] Moderna COVID-19 Vaccine Moderna COVID-19 Vaccine 2020-05-29 15:30:[address] [facility] Moderna COVID-19 Vaccine Moderna COVID-19 Vaccine 2020-05-29 15:30:[address] [facility] FluAD FluAD 2020-01-15 13:39:00 Completed [facility] Prevnar 13 (PCV13) Prevnar 13 (PCV13) 2020-01-15 13:39:[address] [facility] FluAD FluAD 2020-01-15 13:39:00 Completed [facility] Prevnar 13 (PCV13) Prevnar 13 (PCV13) 2020-01-15 13:39:00 Completed [facility] FluAD FluAD 2020-01-15 13:39:00 Completed [facility] Prevnar 13 (PCV13) Prevnar 13 (PCV13) 2020-01-15 13:39:00 Completed [facility] FluAD FluAD 2020-01-15 13:39:00 Completed [facility] Prevnar 13 (PCV13) Prevnar 13 (PCV13) 2020-01-15 13:39:00 Completed [facility] FluAD FluAD 2020-01-15 13:39:00 Completed [facility] Prevnar 13 (PCV13) Prevnar 13 (PCV13) 2020-01-15 13:39:[address] [facility] FluAD FluAD 2020-01-15 13:39:00 Completed [facility] Prevnar 13 (PCV13) Prevnar 13 (PCV13) 2020-01-15 13:39:00 Completed [facility] FluAD FluAD 2020-01-15 13:39:00 [facility]pleted [facility] Prevnar 13 (PCV13) Prevnar 13 (PCV13) 2020-01-15 13:39:00 Completed [facility] Flucelvax - multidose vial Flucelvax - multidose vial 2019-01-10 13:22:00 Completed [facility] Flucelvax - multidose vial Flucelvax - multidose vial 2019-01-10 13:22:00 Completed [facility] Flucelvax - multidose vial Flucelvax - multidose vial 2019-01-10 13:22:00 Completed [facility] Flucelvax - multidose vial Flucelvax - multidose vial 2019-01-10 13:22:00 Completed [facility] Flucelvax - multidose vial Flucelvax - multidose vial 2019-01-10 13:22:00 Completed [facility] Flucelvax - multidose vial Flucelvax - multidose vial 2019-01-10 13:22:00 Completed [facility] Flucelvax - multidose vial Flucelvax - multidose vial 2019-01-10 13:22:00 Completed [facility] Afluria Afluria 2018-01-27 13:10:00 Completed [facility] Adacel (Tdap) Adacel (Tdap) 2018-01-27 13:10:00 Completed [facility] Afluria Afluria 2018-01-27 13:10:00 Completed [facility] Adacel (Tdap) Adacel (Tdap) 2018-01-27 13:10:00 Completed [facility] Afluria Afluria 2018-01-27 13:10:00 Completed [facility] Adacel (Tdap) Adacel (Tdap) 2018-01-27 13:10:00 Completed [facility] Afluria Afluria 2018-01-27 13:10:00 Completed [facility] Adacel (Tdap) Adacel (Tdap) 2018-01-27 13:10:00 Completed [facility] Afluria Afluria 2018-01-27 13:10:00 Completed [facility] Adacel (Tdap) Adacel (Tdap) 2018-01-27 13:10:00 Completed [facility] 13:10:00 Completed [facility] Adacel (Tdap) Adacel (Tdap) 2018-01-27 13:10:00 Completed [facility] 2018-01-27 13:10:00 Completed [facility] Adacel (Tdap) Adacel (Tdap) 2018-01-27 13:10:00 Completed [facility] influenza, unspecified formulation influenza, unspecified formulation Unknown Completed [facility] Tdap Tdap Unknown Completed [facility] Vital Signs Vital Name Observation Time Observation Value Comments S ource BMI (Body Mass Index) 2024-07-13 00:00:00 23.8 kg/m2 [facility] BP Diastolic 2024-07-13 00:00:00 68 mm[Hg] [facility] Body Weight 2024-07-13 00:00:00 2576 [oz_av] [facility] BP Systolic 2024-07-13 00:00:00 128 mm[Hg] [facility] Height 2024-07-13 00:00:00 69 [in_i] [facility] Height 2024-06-06 00:00:00 69 [in_i] [facility] BP Diastolic 2024-06-06 00:00:00 60 mm[Hg] [facility] BP Systolic 2024-06-06 00:00:00 139 mm[Hg] [facility] Body Weight 2024-06-06 00:00:00 2748.8 [oz_av] [facility] BMI (Body Mass Index) 2024-06-06 00:00:00 25.4 kg/m2 [facility] BMI (Body Mass Index) 2024-05-24 00:00:00 28.8 kg/m2 [facility] Height 2024-05-24 00:00:00 69 [in_i] [facility] Body Weight 2024-05-24 00:00:00 3120 [oz_av] [facility] BP Diastolic 2024-05-24 00:00:00 63 mm[Hg] [facility] BP Systolic 2024-05-24 00:00:00 143 mm[Hg] [facility] Height 2024-03-09 00:00:00 69 [in_i] [facility] BP Diastolic 2024-03-09 00:00:00 67 mm[Hg] [facility] BP Systolic 2024-03-09 00:00:00 140 mm[Hg] [facility] BMI (Body Mass Index) 2024-03-09 00:00:00 29.3 kg/m2 [facility] Body Weight 2024-03-09 00:00:00 3171.2 [oz_av] [facility] BP Diastolic 2023-12-07 00:00:00 65 mm[Hg] [facility] Height 2023-12-07 00:00:00 69 [in_i] [facility] BP Systolic 2023-12-07 00:00:00 130 mm[Hg] [facility] Body Weight 2023-12-07 00:00:00 3760 [oz_av] [facility] BMI (Body Mass Index) 2023-12-07 00:00:00 34.7 kg/m2 [facility] Body Weight 2023-10-20 00:00:00 3568 [oz_av] [facility] BP Systolic 2023-10-20 00:00:00 119 mm[Hg] [facility] BP Diastolic 2023-10-20 00:00:00 62 mm[Hg] [facility] BMI (Body Mass Index) 2023-10-20 00:00:00 32.9 kg/m2 [facility] Height 2023-10-20 00:00:00 69 [in_i] [facility] BMI (Body Mass Index) 2023-08-25 00:00:00 31.9 kg/m2 [facility] Body Weight 2023-08-25 00:00:00 3452.8 [oz_av] [facility] BP Systolic 2023-08-25 00:00:00 124 mm[Hg] [facility] Height 2023-08-25 00:00:00 69 [in_i] [facility] BP Diastolic 2023-08-25 00:00:00 67 mm[Hg] [facility] BMI (Body Mass Index) 2023-07-05 00:00:00 34.2 kg/m2 [facility] Body Weight 2023-07-05 00:00:00 3705.6 [oz_av] [facility] Height 2023-07-05 00:00:00 69 [in_i] [facility] BP Diastolic 2023-07-05 00:00:00 62 mm[Hg] [facility] BP Systolic 2023-07-05 00:00:00 117 mm[Hg] [facility] BP Systolic 2023-05-13 00:00:00 151 mm[Hg] [facility] BP Diastolic 2023-05-13 00:00:00 78 mm[Hg] [facility] BMI (Body Mass Index) 2023-05-13 00:00:00 35.8 kg/m2 [facility] Height 2023-05-13 00:00:00 69 [in_i] [facility] Body Weight 2023-05-13 00:00:00 3878.4 [oz_av] [facility] BP Systolic 2023-05-11 00:00:00 133 mm[Hg] [facility] BMI (Body Mass Index) 2023-05-11 00:00:00 34.8 kg/m2 [facility] Body Weight 2023-05-11 00:00:00 3769.6 [oz_av] [facility] Height 2023-05-11 00:00:00 69 [in_i] [facility] BP Diastolic 2023-05-11 00:00:00 76 mm[Hg] [facility] BP Diastolic 2023-03-16 00:00:00 66 mm[Hg] [facility] BP Systolic 2023-03-16 00:00:00 126 mm[Hg] [facility] Body Weight 2023-03-16 00:00:00 3872 [oz_av] [facility] BMI (Body Mass Index) 2023-03-16 00:00:00 35.7 kg/m2 [facility] Height 2023-03-16 00:00:00 69 [in_i] [facility] Body Weight 2023-03-08 00:00:00 3923.2 [oz_av] [facility] BP Diastolic 2023-03-08 00:00:00 72 mm[Hg] [facility] BMI (Body Mass Index) 2023-03-08 00:00:00 36.2 kg/m2 [facility] BP Systolic 2023-03-08 00:00:00 125 mm[Hg] [facility] Height 2023-03-08 00:00:00 69 [in_i] [facility] Height 2023-02-11 00:00:00 69 [in_i] [facility] BP Systolic 2023-02-11 00:00:00 140 mm[Hg] [facility] BP Diastolic 2023-02-11 00:00:00 79 mm[Hg] [facility] BMI (Body Mass Index) 2023-02-11 00:00:00 36.9 kg/m2 [facility] Body Weight 2023-02-11 00:00:00 3996.8 [oz_av] [facility] BP Systolic 2023-02-02 00:00:00 153 mm[Hg] [facility] Height 2023-02-02 00:00:00 69 [in_i] [facility] BMI (Body Mass Index) 2023-02-02 00:00:00 37.4 kg/m2 [facility] BP Diastolic 2023-02-02 00:00:00 83 mm[Hg] [facility] Body Weight 2023-02-02 00:00:00 4048 [oz_av] [facility] Body Weight 2023-01-28 00:00:00 4057.6 [oz_av] [facility] BP Diastolic 2023-01-28 00:00:00 84 mm[Hg] [facility] BP Systolic 2023-01-28 00:00:00 145 mm[Hg] [facility] height 2021-01-22 15:30:00 69 [in_i] [facility] weight 2021-01-22 15:30:00 257.1 [lb_av] [facility] 2021-01-22 15:30:00 98.2 [degF] Com [facility] bmi 2021-01-22 15:30:00 37.96 kg/m2 [facility] oximetry 2021-01-22 15:30:00 94 % [facility] respiratory rate 2021-01-22 15:30:00 17 /min Common [facility] blood pressure systolic 2021-01-22 15:30:00 134 mm[Hg] Common [facility] blood pressure diastolic 2021-01-22 15:30:00 74 mm[Hg] [facility] height 2020-12-19 13:30:00 69 [in_i] [facility] weight 2020-12-19 13:30:00 255 [lb_av] Comm on [facility] temperature 2020-12-19 13:30:00 97.6 [degF] Com mon [facility] bmi 2020-12-19 13:30:00 37.65 kg/m2 Comm [facility] oximetry 2020-12-19 13:30:00 99 % [facility] blood pressure systolic 2020-12-19 13:30:00 140 mm[Hg] Common [facility] blood pressure diastolic 2020-12-19 13:30:00 68 mm[Hg] [facility] height 2020-10-17 14:30:00 69 [in_i] [facility] weight 2020-10-17 14:30:00 257.9 [lb_av] Co mmon [facility] temperature 2020-10-17 14:30:00 98.1 [degF] Com mon [facility] bmi 2020-10-17 14:30:00 38.08 kg/m2 Comm on [facility] oximetry 2020-10-17 14:30:00 94 % [facility] respiratory rate 2020-10-17 14:30:00 17 /min [facility] blood pressure systolic 2020-10-17 14:30:00 138 mm[Hg] [facility] blood pressure diastolic 2020-10-17 14:30:00 77 mm[Hg] [facility] height 2020-07-31 13:30:00 69 [in_i] [facility] weight 2020-07-31 13:30:00 256.2 [lb_av] Co mmon [facility] temperature 2020-07-31 13:30:00 98.2 [degF] Com mon [facility] bmi 2020-07-31 13:30:00 37.83 kg/m2 Comm [facility] oximetry 2020-07-31 13:30:00 96 % [facility] blood pressure systolic 2020-07-31 13:30:00 147 mm[Hg] [facility] blood pressure diastolic 2020-07-31 13:30:00 78 mm[Hg] [facility] height 2020-07-15 14:20:00 69 [in_i] [facility] weight 2020-07-15 14:20:00 253.5 [lb_av] Co mmon [facility] temperature 2020-07-15 14:20:00 97.9 [degF] Com [facility] bmi 2020-07-15 14:20:00 37.43 kg/m2 Comm on [facility] oximetry 2020-07-15 14:20:00 95 % [facility] respiratory rate 2020-07-15 14:20:00 18 /min Common [facility] blood pressure systolic 2020-07-15 14:20:00 135 mm[Hg] Common [facility] blood pressure diastolic 2020-07-15 14:20:00 76 mm[Hg] [facility] height 2020-06-13 10:00:00 69 [in_i] [facility] weight 2020-06-13 10:00:00 255.2 [lb_av] Co mmon [facility] temperature 2020-06-13 10:00:00 98.4 [degF] Com [facility] bmi 2020-06-13 10:00:00 37.68 kg/m2 Comm on [facility] oximetry 2020-06-13 10:00:00 94 % Commo [facility] blood pressure systolic 2020-06-13 10:00:00 128 mm[Hg] [facility] blood pressure diastolic 2020-06-13 10:00:00 69 mm[Hg] [facility] Systolic blood pressure 2020-02-21 14:50:00 130 mm[Hg] [facility] Diastolic blood pressure 2020-02-21 14:50:00 84 mm[Hg] [facility] Heart rate 2020-02-21 14:50:00 87 /min [facility] Body weight 2020-02-21 14:50:00 116.348 kg [facility] BMI 2020-02-21 14:50:00 37.88 kg/m2 [facility] Oxygen saturation in Arterial blood by Pulse oximetry 2020-02-21 14:50:00 97 /min [facility] Systolic blood pressure 2020-02-21 14:50:00 130 mm[Hg] [facility] Diastolic blood pressure 2020-02-21 14:50:00 84 mm[Hg] [facility] Heart rate 2020-02-21 14:50:00 87 /min [facility] 2020-02-21 14:50:00 116.348 kg [facility] BMI 2020-02-21 14:50:00 37.88 kg/m2 [facility] Oxygen saturation in Arterial blood by Pulse oximetry 2020-02-21 14:50:00 97 /min [facility] Procedures Procedure Date / Time Performed Performing Clinician Source electrocardiogram, routine ECG, 12 leads min 2024-07-13 00:00:00 [facility] US, liver 2024-07-13 00:00:00 [facility] US, thyroid 2024-05-24 00:00:00 [facility] XR, lumbosacral spine, 2 or 3 view 2024-03-09 00:00:00 [facility] Coronary Artery Bypass with Autogenous Graft, Three Grafts 2023-06-12 00:00:00 [facility] [id number] 2023-06-11 00:00:00 [facility]01 [facility] [id number] 2023-06-11 00:00:00 [facility]01 [facility] [id number] 2023-06-11 00:00:00 [facility]01 [facility] [id number] 2023-06-11 00:00:00 [facility]01 [facility] [id number] 2023-06-11 00:00:00 [facility]01 [facility] [id number] 2023-06-11 00:00:00 [facility]01 [facility] [id number] 2023-06-11 00:00:00 [facility]01 [facility] [id number] 2023-06-11 00:00:00 [facility]01 [facility] [id number] 2023-06-11 00:00:00 [facility]01 [facility] [id number] 2023-06-11 00:00:00 [facility]01 [facility] [id number] 2023-06-11 00:00:00 [facility]01 [facility] [id number] 2023-06-11 00:00:00 [facility]01 [facility] [id number] 2023-06-01 00:00:00 [facility] [id number] 2023-06-01 00:00:00 [facility] US, liver 2023-03-16 00:00:00 [facility] CT, abdomen + pelvis, w/wo contrast 2023-03-08 00:00:00 [facility] CONSENT/REFUSAL FOR DIAGNOSIS AND TREATMENT 2020-02-21 14:26:32 Doctor Unassigned, [place] [facility] Appendectomy [facility] Encounters Start Date/Time End Date/Time Encounter Type Admission Type Attending Clinicians Care Facility Care Department Encounter ID Source 2023-05-05 15:27:00 Outpatient [facility] [id number] [facility] 2021-04-23 14:15:59 Outpatient Portillo, [facility] [id number] [facility] 2021-04-23 13:59:01 Outpatient Portillo, [facility] [id number] [facility] 2021-04-23 12:21:45 Outpatient [place] [id number] [facility] 2021-04-23 11:45:21 Outpatient [facility] [id number] [facility] 2024-07-13 00:00:00 2024-07-13 00:00:00 Nemo Sierra APRN, MSN, [facility]: [address] [place] [address] , Ph. [facility] [id number] [facility] 2024-06-06 00:00:00 2024-06-06 00:00:00 Nemo Sierra APRN, MSN, [employer]-BC: [address] [place] [address] , Ph. [facility] 0311 [facility] 2024-05-24 00:00:00 2024-05-24 00:00:00 Nemo Sierra APRN, MSN, [facility]: [address] [place] [address] , Ph. [facility] 0226 [facility] 2024-03-09 00:00:00 2024-03-09 00:00:00 Nemo Sierra APRN, MSN, [facility]: [address] [place] [address], [address] [address] , Ph. [facility] 1212 [facility] 2023-12-07 00:00:00 2023-12-07 00:00:00 Nemo Sierra APRN, MSN, [facility]: [address] [place] [address], Suite [facility], [place] [address] , Ph. [facility] 0910 [facility] 2023-10-20 00:00:00 2023-10-20 00:00:00 Nemo Sierra APRN, MSN, [facility]: [address] [facility], [address] [place] [address] , Ph. [facility] [id number] [facility] 2023-08-25 00:00:00 2023-08-25 00:00:00 Nemo Sierra APRN, MSN, [facility]-: [address] [place] [address], [address] [place] [address] , Ph. [facility] [id number] [facility] 2023-07-05 00:00:00 2023-07-05 00:00:00 Nemo Sierra APRN, MSN, [facility]: [address] [place] [address], [address] [place] [address] , Ph. L_Pena [facility] [id number] [facility] 2023-06-25 00:00:00 2023-06-25 00:00:00 Outpatient L[facility] [id number] [facility] 2023-05-31 11:59:00 2023-06-22 14:57:00 Inpatient Bladimir Campbell [facility] [id number] 62 [facility] 2023-06-01 00:00:00 2023-06-01 00:00:00 Outpatient L_[facility] [id number] [facility] 2023-05-13 00:00:00 2023-05-13 00:00:00 Nemo Sierra APRN, MSN, [facility]-: [address] [place] [address], [address] [place] [address] , Ph. [facility] [id number] [facility] 2023-05-11 00:00:00 2023-05-11 00:00:00 Nemo Sierra APRN, MSN, [facility]: [address] [place] [address], [address] [place] [address] , Ph. [facility] [id number] [facility] 2023-04-22 10:00:00 2023-04-22 10:00:00 Outpatient [facility] [id number] [facility] 2023-04-03 00:00:00 2023-04-03 00:00:00 Outpatient L_[facility]ena [facility] [id number] [facility] 2023-03-16 00:00:00 2023-03-16 00:00:00 Outpatient L_[facility]ena [facility] [id number] [facility] 2023-03-16 00:00:00 2023-03-16 00:00:00 Nemo Sierra APRN, MSN, [facility]: [address] [place] [address], [address] [place] [address] , Ph. [facility] [id number] [facility] 2023-03-08 00:00:00 2023-03-08 00:00:00 Outpatient L_Pena [facility] [id number] [facility] 2023-03-08 00:00:00 2023-03-08 00:00:00 Nemo Sierra APRN, MSN, [facility]: [address] [place] [address], [address] [place] [phone] , Ph. [facility] [id number] [facility] 2023-03-06 21:16:00 2023-03-07 16:08:00 Inpatient [facility] [id number] [facility] 2023-02-11 00:00:00 2023-02-11 00:00:00 Outpatient L_Pena [facility] [id number] [facility] 2023-02-11 00:00:00 2023-02-11 00:00:00 Nemo Sierra APRN, MSN, [facility]: [address] [place] [address], [address] [address] , Ph. [facility] [id number] [facility] 2023-02-02 00:00:00 2023-02-02 00:00:00 Nemo Sierra APRN, MSN, [facility]: [address] [place] [address], [address] [address] , Ph. [facility] [id number] [facility] 2023-01-28 00:00:00 2023-01-28 00:00:00 Outpatient L[facility]ena [facility] [id number] [facility] 2023-01-28 00:00:00 2023-01-28 00:00:00 Outpatient L_[facility]ena [facility] [id number] [facility] 2023-01-28 00:00:00 2023-01-28 00:00:00 Nemo Sierra APRN, MSN, [facility]: [address] [place] [address], [address] [address] , Ph. [facility] [id number] [facility] 2023-01-27 00:00:00 2023-01-27 00:00:00 Outpatient CHRETIEN_F [facility] [id number] [facility] 2021-06-11 00:00:00 2021-06-11 00:00:00 (TEL) STLMLC STLMLC [id number] [facility] 2021-03-24 00:00:00 2021-03-24 00:00:00 (TEL) STLMLC STLMLC [id number] [facility] 2021-03-18 00:00:00 2021-03-18 00:00:00 Patient Secure Msg Doctor Unassigned, [place] [facility] [id number] [facility] 2021-03-11 00:00:00 2021-03-11 00:00:00 (TEL) STLMLC STLMLC [id number] [facility] 2021-03-06 00:00:00 2021-03-06 00:00:00 (TEL) STLMLC STLMLC [id number] [facility] 2021-02-14 00:00:00 2021-02-14 00:00:00 (COVID Inj) COVID Injection STLMLC STLMLC [id number] [facility] 2021-01-22 00:00:00 2021-01-22 00:00:00 OFFICE VISIT ESTAB PT LEVEL 4 STLMLC STLMLC [id number] [facility] 2021-01-17 00:00:00 2021-01-17 00:00:00 (WEB) STLMLC STLMLC [id number] [facility] 2021-01-15 00:00:00 2021-01-15 00:00:00 (TEL) STLMLC STLMLC [id number] [facility] 2021-01-06 00:00:00 2021-01-06 00:00:00 (WEB) STLMLC STLMLC [id number] [facility] 2020-12-19 00:00:00 2020-12-19 00:00:00 OFFICE VISIT ESTAB PT LEVEL 2 STLMLC STLMLC [id number] [facility] 2020-11-26 00:00:00 2020-11-26 00:00:00 (TEL) STLMLC STLMLC [id number] [facility] 2020-11-07 00:00:00 2020-11-07 00:00:00 (WEB) STLMLC STLMLC [id number] [facility] 2020-10-25 00:00:00 2020-10-25 00:00:00 (WEB) STLMLC STLMLC [id number] [facility] 2020-10-17 00:00:00 2020-10-17 00:00:00 PREV VISIT EST AGE 40-64 STLMLC STLMLC [id number] [facility] 2020-07-31 00:00:00 2020-07-31 00:00:00 (PROC) Procedure STLMLC STLMLC [id number] [facility] 2020-07-16 00:00:00 2020-07-16 00:00:00 (WEB) STLMLC STLMLC [id number] [facility] 2020-07-15 00:00:00 2020-07-15 00:00:00 OFFICE VISIT ESTAB PT LEVEL 4 STLMLC STLMLC [id number] [facility] 2020-06-13 00:00:00 2020-06-13 00:00:00 OFFICE VISIT ESTAB PT LEVEL 5 STLMLC STLMLC [id number] [facility] 2020-06-03 00:00:00 2020-06-03 00:00:00 Patient Outreach Neil Frias [facility] [id number] [facility] 2020-05-09 00:00:00 2020-05-09 00:00:00 Outpatient STLMLC STLMLC [id number] [facility] 2020-04-29 00:00:00 2020-04-29 00:00:00 Outpatient STLMLC STLMLC [id number] [facility] 2020-04-26 00:00:00 2020-04-26 00:00:00 Outpatient STLMLC STLMLC [id number] [facility] 2020-04-23 00:00:00 2020-04-23 00:00:00 Outpatient STLMLC STLMLC [id number] [facility] 2020-04-22 15:00:00 2020-04-22 15:00:00 Outpatient TK RECINOS [facility] [id number] [facility] 2020-04-19 00:00:00 2020-04-19 00:00:00 Outpatient STLMLC STLMLC [id number] [facility] 2020-04-18 00:00:00 2020-04-18 00:00:00 Outpatient STLMLC STLMLC [id number] [facility] 2020-04-16 00:00:00 2020-04-16 00:00:00 Outpatient STLMLC STLMLC [id number] [facility] 2020-02-21 08:27:35 2020-02-21 08:59:59 [facility] [id number] 2020-02-21 08:27:35 2020-02-21 08:59:59 [facility] [id number] [facility] 2020-02-21 08:40:00 2020-02-21 08:40:00 [facility] [id number] 2020-02-21 00:00:00 2020-02-21 00:00:00 Orders Only Doctor Unassigned, [place] [facility] [id number] [facility] 2020-02-19 00:00:00 2020-02-19 00:00:00 Outpatient STLMLC STLMLC [id number] [facility] 2020-02-19 00:00:00 2020-02-19 00:00:00 Outpatient STLMLC STLMLC [id number] [facility] 2020-02-15 00:00:00 2020-02-15 00:00:00 Outpatient STLMLC STLMLC [id number] [facility] 2020-01-23 00:00:00 2020-01-23 00:00:00 Outpatient STLMLC STLMLC [id number] [facility] 2020-01-15 00:00:00 2020-01-15 00:00:00 Outpatient STLMLC STLMLC [id number] [facility] 2019-12-26 00:00:00 2019-12-26 00:00:00 Outpatient STLMLC STLMLC [id number] [facility] 2019-12-26 00:00:00 2019-12-26 00:00:00 Outpatient STLMLC STLMLC [id number] [facility] 2019-12-15 00:00:00 2019-12-15 00:00:00 Outpatient STLMLC STLMLC [id number] [facility] 2019-12-08 13:30:00 2019-12-08 13:30:00 [facility] [id number] [facility] Results Test Description Test Time Test Comments Results Result Co mments Source - XR CHEST 1 [id number] 11:33:00 [facility] 1955 Sex: M FAX: Bladimir Morse [phone] [place]: St: ADM FAX: Johnna Monaco Phy [phone] FAX: Talat Salmeron MD [phone] Name: MINDY CARTER [facility] [place] : 1955 Age/S: 67/M [address] [place] [address] Unit #: [id number] Loc: [facility] [place] [address] Phys: Johnna Pablo Physic Acct: [id number] Date: Status: ADM IN PHONE #: [phone] Exam Date: 06/22/2023 1038 FAX #: [phone] Reason: S/P CABG, R/O EFFUSION EXAMS: CPT CODE: [id number] XR CHEST 1 V 50257 EXAM: Chest x-ray, 1 viewDictation location: E5 COMPARISON: Chest x-ray on 06/21/2023 [...] MD Technologist: RT Eusebio(Penelope) Trnscrd Date/Time/By: 06/22/2023 (1135) : By: [email or web address] Orig Print D/T: S: 06/22/2023 (7220) PAGE 1 Signed ReportGLUCOSE [id number] 07:42:00* Test Item Value Reference Range Interpretation Comme nts GLUCOSE BEDSIDE (test code = GLUBED) 165 MG/DL 70-110 H Performed by cer raul 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 at [facility] BASIC METABOLIC [id number] 06:58:00* Test Item Value Reference Range Interpretation [...] code = CA) 7.6 mg/dL 8.0-10.5 L [id number] 06:58:00* Test Item Value Reference Range Interpretation Comme nts MAGNESIUM (test code = MAG) 2.36 mg/dL 1.6-2.6 N CBC W/AUTO [id number] 04:15:00* Test Item Value Reference Range Interpretation [...] NRBC#) 0.00 x10 3/uL 0.0-0.1 N GLUCOSE [id number] 20:34:00* Test Item Value Reference Range Interpretation Comme nts GLUCOSE BEDSIDE (test code = GLUBED) 222 MG/DL 70-110 H Performed by cer tified 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 at [facility] GLUCOSE [id number] 17:14:00* Test Item Value Reference Range Interpretation Comme nts GLUCOSE BEDSIDE (test code = GLUBED) 149 MG/DL 70-110 H Performed by cer tified 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 at [facility] GLUCOSE [id number] 12:15:00* Test Item Value Reference Range Interpretation Comme nts GLUCOSE BEDSIDE (test code = GLUBED) 215 MG/DL 70-110 H Performed by cer tified 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 at [facility] - XR CHEST 1 [id number] 10:12:00 [facility] 1955 Sex: M FAX: Nathaniel Shirley MD [phone] [place]: St: ADM FAX: Kumar Salas [phone] FAX: Talat Salmeron MD [phone] Name: MINDY CARTER [facility] : 1955 Age/S: 67/M [address] [place] [address] Unit #: [id number] Loc: .[address] [place] [address] Phys: Nathaniel Martel MD Acct: [id number] Dis Date: Status: ADM IN PHONE #: [phone] Exam Date: 06/21/2023 0807 FAX #: [phone] Reason:S/P CABG, R/O EFFUSION EXAMS: CPT CODE: [id number] XR CHEST 1 V 28355 Dictation location: C4. CHEST, FRONTAL VIEW HISTORY: S/P CABG, R/O EFFUSION FINDINGS: Since 06/20/23, cardiomegaly is noted with pulmonary edema and bilateral pleural effusions. Basilar opacities are unchanged. Sternotomy wires. IMPRESSION: No significant change in the cardiomegaly, pulmonary edema and bilateral pleural effusions. at 1012 Reported and signed by: Elio Pimentel M.D. CC: Nathaniel Martel MD; Kumar Garcia MD; Talat Lord MD Technologist: RT Angie(R) Trnscrd Date/Time/By: 06/21/2023 (1012) : By: [email or web address] Orig Print D/T: S: 06/21/2023 (3293) PAGE 1 Signed ReportGLUCOSE [id number] 07:55:00* Test Item Value Reference Range Interpretation Comme nts GLUCOSE BEDSIDE (test code = GLUBED) 145 MG/DL 70-110 H Performed by cer tified 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 at [facility] BASIC METABOLIC [id number] 05:54:00* Test Item Value Reference Range Interpretation [...] code = CA) 7.6 mg/dL 8.0-10.5 L [id number] 05:54:00* Test Item Value Reference Range Interpretation Comme nts MAGNESIUM (test code = MAG) 2.51 mg/dL 1.6-2.6 N CBC W/AUTO [id number] 05:21:00* Test Item Value Reference Range Interpretation [...] NRBC#) 0.00 x10 3/uL 0.0-0.1 N GLUCOSE [id number] 19:52:00* Test Item Value Reference Range Interpretation Comme nts GLUCOSE BEDSIDE (test code = GLUBED) 208 MG/DL 70-110 H Performed by cer tified 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 at [facility] GLUCOSE [id number] 17:46:00* Test Item Value Reference Range Interpretation Comme nts GLUCOSE BEDSIDE (test code = GLUBED) 198 MG/DL 70-110 H Performed by cer tified 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 at [facility] GLUCOSE [id number] 13:38:00* Test Item Value Reference Range Interpretation Comme nts GLUCOSE BEDSIDE (test code = GLUBED) 218 MG/DL 70-110 H Performed by cer tified 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 at [facility] - XR CHEST 1 [id number] 08:37:00 [facility] : 1955 Sex: M FAX: Nathaniel Shirley MD [phone] [place]: St: [facility] FAX: Kumar Salas [phone] FAX: Talat Salmeron MD [phone] Name: MINDY CARTER [facility] : 1955 Age/S: 67/M [address] [place] [address] Blvd Unit #: [id number] Loc: G.[address] [place] [address] Phys: Nathaniel Martel MD Acct: [id number] Dis Date: Status: ADM IN PHONE #: [phone] Exam Date: 06/20/2023 0744 FAX #: [phone] Reason: R/O PLEURAL EFFUSION EXAMS: CPT CODE: [id number] XR CHEST 1 V 53598 CHEST 1 VIEW CLINICAL INFORMATION: R/O PLEURAL EFFUSION COMPARISON: June 19, 2023 FINDINGS: The lung volumes are decreased. Small Bilateral layering pleural effusions and lower lobe alveolar opacities remain without significant interval change. No appreciable pneumothorax. The cardiac silhouette is moderately enlarged. Median sternotomy wires are present. IMPRESSION: No significant change in mild pulmonary edema changes with small bilateral effusions. Superimposed infectious process should be excluded on coronal bases. LOCATION: C3 at 0837 Reportedand signed by: Jessenia Mireles M.D. CC: Nathaniel Martel MD; Kumar Garcia MD; Talat Granda MD Technologist: Carli Baker, RT(R); Rylee Muller RT(R) Trnscrd Date/Time/By: 06/20/2023 (0837) : By: [email or web address] Orig Print D/T: S: 06/20/2023 (6859) PAGE 1 Signed ReportBASIC METABOLIC [id number] 04:13:00* Test Item Value Reference Range Interpretation [...] code = CA) 8.0 mg/dL 8.0-10.5 N [id number] 04:13:00* Test Item Value Reference Range Interpretation Comme nts MAGNESIUM (test code = MAG) 2.42 mg/dL 1.6-2.6 N CBC W/AUTO [id number] 03:55:00* Test Item Value Reference Range Interpretation [...] NRBC#) 0.00 x10 3/uL 0.0-0.1 N GLUCOSE [id number] 20:56:00* Test Item Value Reference Range Interpretation Comme nts GLUCOSE BEDSIDE (test code = GLUBED) 251 MG/DL 70-110 H Performed by cer tified 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 at [facility] GLUCOSE [id number] 17:46:00* Test Item Value Reference Range Interpretation Comme nts GLUCOSE BEDSIDE (test code = GLUBED) 132 MG/DL 70-110 H Performed by cer tified 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 at [facility] GLUCOSE [id number] 12:47:00* Test Item Value Reference Range Interpretation Comme nts GLUCOSE BEDSIDE (test code = GLUBED) 160 MG/DL 70-110 H Performed by cer tified 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 at [facility] - XR CHEST 1 [id number] 09:19:00 [facility] : 1955 Sex: M FAX: Nathaniel Shirley MD [phone] [place]: St: ADM FAX: Talat Salmeron MD [phone] ------- Name: MINDY CARTER [facility] : 1955 Age/S: 67/M [address] [place] [address] Unit #: [id number] Loc: G.[address] [place] [address] Phys: Nathaniel Martel MD Acct: [id number] Dis Date: Status: ADM IN PHONE #: [phone] Exam Date: 06/19/202343 FAX #: [phone] Reason: R/O PLEURAL EFFUSION EXAMS: CPT CODE: [id number] XR CHEST 1 V 28041 CHEST 1 VIEW CLINICAL INFORMATION: R/O PLEURAL [...] Martel MD; Talat Lord MD Technologist: Carli Baker, RT(R); Rylee Muller RT(R) TrnscrdDate/Time/By: 06/19/2023 (918) : By: [email or web address] Orig Print D/T: S: 06/19/2023 (1625) PAGE 1 SignedReportGLUCOSE [id number] 08:35:00* Test Item Value Reference Range Interpretation Comme nts GLUCOSE BEDSIDE (test code = GLUBED) 184 MG/DL 70-110 H Performed by cer tified 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 at [facility] CBC W/AUTO [id number] 07:24:00* Test Item Value Reference Range Interpretation [...] (test c ode = MDIFF) YES WBC [id number] 07:24:00* Test Item Value Reference Range Interpretation [...] code = PLTMORPH) LARGE PLATELETS BASIC METABOLIC [id number] 06:44:00* Test Item Value Reference Range Interpretation [...] code = CA) 8.1 mg/dL 8.0-10.5 N [id number] 06:44:00* Test Item Value Reference Range Interpretation Comme nts MAGNESIUM (test code = MAG) 2.44 mg/dL 1.6-2.6 N GLUCOSE [id number] 19:53:00* Test Item Value Reference Range Interpretation Comme nts GLUCOSE BEDSIDE (test code = GLUBED) 225 MG/DL 70-110 H Performed by cer tified 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 at [facility] GLUCOSE [id number] 17:17:00* Test Item Value Reference Range Interpretation Comme nts GLUCOSE BEDSIDE (test code = GLUBED) 239 MG/DL 70-110 H Performed by cer tified 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 at [facility] GLUCOSE [id number] 11:39:00* Test Item Value Reference Range Interpretation Comme nts GLUCOSE BEDSIDE (test code = GLUBED) 249 MG/DL 70-110 H Performed by cer tified 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 at [facility] GLUCOSE [id number] 07:49:00* Test Item Value Reference Range Interpretation Comme nts GLUCOSE BEDSIDE (test code = GLUBED) 244 MG/DL 70-110 H Performed by cer raul 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 at [facility] BASIC METABOLIC [id number] 06:31:00* Test Item Value Reference Range Interpretation [...] CA) 7.9 mg/dL 8.0-10.5 L HEPATIC FUNCTION [id number] 06:31:00* Test Item Value Reference Range Interpretation [...] (test cod e = BILIND) 0.40 MG/DL [id number] 06:31:00* Test Item Value Reference Range Interpretation Comme nts MAGNESIUM (test code = MAG) 2.46 mg/dL 1.6-2.6 N CBC W/AUTO [id number] 05:41:00* Test Item Value Reference Range Interpretation [...] NRBC#) 0.00 x10 3/uL 0.0-0.1 N GLUCOSE [id number] 20:12:00* Test Item Value Reference Range Interpretation Comme nts GLUCOSE BEDSIDE (test code = GLUBED) 219 MG/DL 70-110 H Performed by cer tified 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 at [facility] GLUCOSE [id number] 17:43:00* Test Item Value Reference Range Interpretation Comme nts GLUCOSE BEDSIDE (test code = GLUBED) 230 MG/DL 70-110 H Performed by cer tifUplike 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 at [facility] - DUP VEIN [id number] 15:08:00 [facility] 1955 Sex: M Name: MINDY CARTER [facility] : 1955 Age/S: 67 / M [address] [place], [place] [address]vd Unit #: [id number] Loc: HansenVIRA [address] Phys: Johnna Pablo Acct: [id number] Dis Date: Status:ADM IN PHONE #: [phone] Exam Date: 06/17/2023 1454 FAX #: [phone] Reason: R/O DVT EXAMS:CPT CODE: [id number] DUP VEIN BETH [address] HISTORY: leg swelling Location Code: B2 COMMENT: Multiplanar grayscale, color flow and Doppler spectral imaging of the bilateral lower extremity was performed revealing patent deep venous system with no evidence of deep venous thrombosis of obstruction. Thereis normal augmentation of flow with compression of calf veins. IMPRESSION: 1. No evidence of deep venous thrombosis. at 1508 Reported andsigned by: Erick Hogan M.D. CC: Johnna Pablo; Talat Lord MD Technologist: Kirsty Banegas RDMS() Trnscb Date/Time: 06/17/2023 (1508) [email or web address] Orig Print D/T: S: 06/17/2023 (4996) Probe: PAGE 1 Signed ReportGLUCOSE [id number] 12:15:00* Test Item Value Reference Range Interpretation Comme nts GLUCOSE BEDSIDE (test code = GLUBED) 305 MG/DL 70-110 H Performed by linda marcus at [facility] - XR CHEST 1 [id number] 08:25:00 [facility] : 1955 Sex: M FAX: Nathaniel Shirley MD [phone] [place]: St: ADM FAX: Talat Salmeron MD [phone] ------ Name: MINDY CARTER [facility] : 1955 Age/S: 67/M [address] [place] [address] Blvd Unit #: [id number] Loc: Rebeca2202 [place] [address] Phys: Nathaniel Martel MD Acct: [id number] Dis Date: Status: ADM IN PHONE #: [phone] Exam Date: 06/17/2023624 FAX #: [phone] Reason: Cardiac Surgery Post Op EXAMS: CPT CODE: [id number] XR CHEST 1 V 53856 STUDY: Chest radiograph HISTORY: Postop COMPARISON: 06/16/2023 TECHNIQUE: Frontal view of the chest. LOCATION: H19 FINDINGS: Poststernotomy changes are again noted. Right IJ vein catheter has been removed. The cardiac silhouette is stable in size. Pulmonary vascular co ngestion and bibasilar atelectasis appear similar. Small pleural effusions are unchanged in size. There is no discernible pneumothorax. IMPRESSION: No significant interval change. at 0825 Reported and signed by: Orlando Baez M.D. CC: Nathaniel Martel MD; Talat Lord MD Technologist: Aris Bergeron, (R) Trnscrd Date/Time/By: 06/17/2023 (08) : By: [email or web address] Orig Print D/T: S: 06/17/2023 (5934) PAGE 1 Signed ReportGLUCOSE [id number] 08:02:00* Test Item Value Reference Range Interpretation Comme nts GLUCOSE BEDSIDE (test code = GLUBED) 127 MG/DL 70-110 H Performed by cer katiuskaied 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 at [facility] GLUCOSE [id number] 07:05:00* Test Item Value Reference Range Interpretation Comme nts GLUCOSE BEDSIDE (test code = GLUBED) 131 MG/DL 70-110 H Performed by linda carter 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 at [facility] POC ARTERIAL BLOOD [id number] 04:34:00* Test Item Value Reference Range Interpretation Comme nts POC ARTERIAL BLOOD GAS PH (t est code = POCPHA) 7.450 7.35-7.45 N POC ARTERIAL BLOOD GAS PCO2 (test code = WGNEJM2J) 39.6 mmHg 35.0-45 N POC TCO2 ARTERIAL (test code = POCTCO2) 28.9 POC ARTERIAL BLOOD GAS PO2 ( test code = KEPWT1K) 73.0 mmHg 80-100.0 L POC HCO3 ARTERIAL (test code = NBYWSD8V) 27.6 MMOL/L 22.0-26.0 H POC BASE EXCESS (test code = POCBEA) 3.6 MMOL/L -4.0-4.0 N POC O2 SATURATION (test code = POCO2S) 95.4 % 90-100 N FIO2 (test code = FIO2A) 32.0 % PaO2/FiO2 (test code = DFQ9VKP9) 228.10 mm/Hg ABG DELIVERY (test code = DELVIN) Cannula ABG TEMPERATURE (test code = TEMPA) 98 F ABG SITE (test code = SITEA) R Brach MABEL'S TEST (test code = ALLENS) Positive HEPATIC FUNCTION [id number] 04:17:00* Test Item Value Reference Range Interpretation [...] ALKP) 190 IUnit/L 20-125 H ADD-ONBASIC METABOLIC [id number] 03:51:00* Test Item Value Reference Range Interpretation [...] code = CA) 8.0 mg/dL 8.0-10.5 N [id number] 03:51:00* Test Item Value Reference Range Interpretation Comme nts MAGNESIUM (test code = MAG) 2.64 mg/dL 1.6-2.6 H CBC W/AUTO [id number] 03:36:00* Test Item Value Reference Range Interpretation [...] NRBC#) 0.04 x10 3/uL 0.0-0.1 N GLUCOSE [id number] 03:33:00* Test Item Value Reference Range Interpretation Comme nts GLUCOSE BEDSIDE (test code = GLUBED) 258 MG/DL 70-110 H Performed by cer katiuskaied 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 at [facility] GLUCOSE [id number] 01:40:00* Test Item Value Reference Range Interpretation Comme nts GLUCOSE BEDSIDE (test code = GLUBED) 287 MG/DL 70-110 H Performed by cer tified 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 at [facility] [id number] 22:48:00* Test Item Value Reference Range Interpretation Comme nts MAGNESIUM (test code = MAG) 2.61 mg/dL 1.6-2.6 H CALCIUM [id number] 22:48:00* Test Item Value Reference Range Interpretation Comme nts CALCIUM IONIZED (test code = CARLOS) 1.01 MMOL/L 1.09-1.30 L GLUCOSE [id number] 22:23:00* Test Item Value Reference Range Interpretation Comme nts GLUCOSE BEDSIDE (test code = GLUBED) 275 MG/DL 70-110 H Performed by cer tified 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 at [facility] BASIC METABOLIC [id number] 21:38:00* Test Item Value Reference Range Interpretation [...] = CA) 8.2 mg/dL 8.0-10.5 N GLUCOSE [id number] 21:08:00* Test Item Value Reference Range Interpretation Comme nts GLUCOSE BEDSIDE (test code = GLUBED) 302 MG/DL 70-110 H Performed by cer tified 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 at [facility] GLUCOSE [id number] 18:47:00* Test Item Value Reference Range Interpretation Comme nts GLUCOSE BEDSIDE (test code = GLUBED) 250 MG/DL 70-110 H Performed by [facility] tified 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 at [facility] BASIC METABOLIC [id number] 16:32:00* Test Item Value Reference Range Interpretation [...] code = CA) 8.6 mg/dL 8.0-10.5 N [id number] 16:32:00* Test Item Value Reference Range Interpretation Comme nts MAGNESIUM (test code = MAG) 2.38 mg/dL 1.6-2.6 N CALCIUM [id number] 16:32:00* Test Item Value Reference Range Interpretation Comme [facility] CALCIUM IONIZED (test code = CARLOS) 1.09 MMOL/L 1.09-1.30 N GLUCOSE [id number] 14:26:00* Test Item Value Reference Range Interpretation Comme nts GLUCOSE BEDSIDE (test code = GLUBED) 226 MG/DL 70-110 H Performed by cer tified 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 at [facility] GLUCOSE [id number] 12:30:00* Test Item Value Reference Range Interpretation Comme nts GLUCOSE BEDSIDE (test code = GLUBED) 182 MG/DL 70-110 H Performed by [facility] tified 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 at [facility] BASIC METABOLIC [id number] 10:13:00* Test Item Value Reference Range Interpretation [...] code = CA) 8.6 mg/dL 8.0-10.5 N [id number] 10:13:00* Test Item Value Reference Range Interpretation Comme nts MAGNESIUM (test code = MAG) 2.45 mg/dL 1.6-2.6 N CALCIUM [id number] 10:13:00* Test Item Value Reference Range Interpretation Comme [facility] CALCIUM IONIZED (test code = CARLOS) 1.14 MMOL/L 1.09-1.30 N - XR CHEST 1 [id number] 09:15:00 [facility] : 1955 Sex: M FAX: Kimmie Bacon MD [phone] [place]: St: ADM FAX: Nathaniel hSirley MD [phone] FAX: Eleonora Mai MD [phone] Name: MINDY CARTER [facility] : 1955 Age/S: 67/M [address] [place] [address] Unit #: [id number] Loc: G.[address] [place] [address] Phys: Nathaniel Martel MD Acct: [id number] Dis Date: Status: ADM IN PHONE #: [phone] Exam Date: 06/16/2023 0608 FAX #: [phone] Reason: Cardiac Surgery Post Op EXAMS: CPT CODE: [id number] XR CHEST 1 V 36864 EXAM: - XR CHEST 1 V CLINICAL [...] S: 06/16/2023 (917) PAGE 1 Signed ReportGLUCOSE [id number] 08:46:00* Test Item Value Reference Range Interpretation Comme [facility] GLUCOSE BEDSIDE (test code = GLUBED) 171 MG/DL 70-110 H Performed by [facility] tified 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 at [facility] GLUCOSE [id number] 06:15:00* Test Item Value Reference Range Interpretation Comme nts GLUCOSE BEDSIDE (test code = GLUBED) 137 MG/DL 70-110 H Performed by [facility] tified 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 at [facility] GLUCOSE [id number] 04:18:00* Test Item Value Reference Range Interpretation Comme [facility] GLUCOSE BEDSIDE (test code = GLUBED) 97 MG/DL 70-110 N Performed by [facility] tified 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 at [facility] POC ARTERIAL BLOOD [id number] 04:13:00* Test Item Value Reference Range Interpretation Comme nts POC ARTERIAL BLOOD GAS PH (t est code = POCPHA) 7.412 7.35-7.45 N POC ARTERIAL BLOOD GAS PCO2 (test code = GMZVZF5U) 39.5 mmHg 35.0-45 N POC TCO2 ARTERIAL (test code = POCTCO2) 26.3 POC ARTERIAL BLOOD GAS PO2 ( test code = LNAOC0F) 95.1 mmHg 80-100.0 N POC HCO3 ARTERIAL (test code = SHQIKE4C) 25.1 MMOL/L 22.0-26.0 N POC BASE EXCESS (test code = POCBEA) 0.5 MMOL/L -4.0-4.0 N POC O2 SATURATION (test code = POCO2S) 97.5 % 90-100 N ABG DELIVERY (test code = DELVIN) HFNC ABG SITE (test code = SITEA) Art Line MABEL'S TEST (test code = ALLENS) N/A BASIC METABOLIC [id number] 04:13:00* Test Item Value Reference Range Interpretation [...] = POCGLU) 93 MG/DL 70-110 N HEMOGLOBIN [id number] 04:13:00* Test Item Value Reference Range Interpretation Comme nts HEMOGLOBIN ABG (test code = HGB/ABG) 12.7 G/DL 12.5-16.9 N [id number] 04:13:00* Test Item Value Reference Range Interpretation Comme nts HEMATOCRIT (test code = HCT/ABG) 37 % 37.5-50.7 L POC LACTIC [id number] 04:13:00* Test Item Value Reference Range Interpretation Comme nts POC LACTIC ACID (test code = POCLAC) 0.6 mmol/l 0.9-1.7 L BASIC METABOLIC [id number] 04:06:00* Test Item Value Reference Range Interpretation [...] CA) 8.6 mg/dL 8.0-10.5 N HEPATIC FUNCTION [id number] 04:06:00* Test Item Value Reference Range Interpretation [...] code = ALKP) 134 IUnit/L 20-125 H [id number] 04:06:00* Test Item Value Reference Range Interpretation Comme nts MAGNESIUM (test code = MAG) 2.53 mg/dL 1.6-2.6 N CBC W/AUTO [id number] 03:46:00* Test Item Value Reference Range Interpretation [...] NRBC#) 0.02 x10 3/uL 0.0-0.1 N GLUCOSE [id number] 01:09:00* Test Item Value Reference Range Interpretation Comme nts GLUCOSE BEDSIDE (test code = GLUBED) 116 MG/DL 70-110 H Performed by cer tified 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 at [facility] GLUCOSE [id number] 23:03:00* Test Item Value Reference Range Interpretation Comme nts GLUCOSE BEDSIDE (test code = GLUBED) 182 MG/DL 70-110 H Performed by cer tified 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 at [facility] BASIC METABOLIC [id number] 21:36:00* Test Item Value Reference Range Interpretation [...] (test code = CA) 8.7 mg/dL 8.0-10.5 [id number] 21:36:00* Test Item Value Reference Range Interpretation Comme nts MAGNESIUM (test code = MAG) 2.63 mg/dL 1.6-2.6 H CALCIUM [id number] 21:36:00* Test Item Value Reference Range Interpretation Comme nts CALCIUM IONIZED (test code = CARLOS) 1.16 MMOL/L 1.09-1.30 N GLUCOSE [id number] 21:17:00* Test Item Value Reference Range Interpretation Comme nts GLUCOSE BEDSIDE (test code = GLUBED) 216 MG/DL 70-110 H Performed by cer tified 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 at [facility] GLUCOSE [id number] 19:30:00* Test Item Value Reference Range Interpretation Comme nts GLUCOSE BEDSIDE (test code = GLUBED) 267 MG/DL 70-110 H Performed by cer tified 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 at [facility] BASIC METABOLIC [id number] 16:04:00* Test Item Value Reference Range Interpretation [...] code = CA) 6.9 mg/dL 8.0-10.5 L [id number] 16:04:00* Test Item Value Reference Range Interpretation Comme nts MAGNESIUM (test code = MAG) 2.14 mg/dL 1.6-2.6 N CALCIUM [id number] 16:04:00* Test Item Value Reference Range Interpretation Comme nts CALCIUM IONIZED (test code = CARLOS) 0.96 MMOL/L 1.09-1.30 L POC ARTERIAL BLOOD [id number] 15:23:00* Test Item Value Reference Range Interpretation Comme nts POC ARTERIAL BLOOD GAS PH (t est code = POCPHA) 7.440 7.35-7.45 N POC ARTERIAL BLOOD GAS PCO2 (test code = XBOQSG8X) 25.8 mmHg 35.0-45 LL POC TCO2 ARTERIAL (test code = POCTCO2) 18.4 POC ARTERIAL BLOOD GAS PO2 ( test code = OUEYB8G) 53.9 mmHg 80-100.0 L POC HCO3 ARTERIAL (test code = YWZTFB5D) 17.6 MMOL/L 22.0-26.0 LL POC BASE EXCESS (test code = POCBEA) -6.7 MMOL/L -4.0-4.0 L POC O2 SATURATION (test code = POCO2S) 90.2 % 90-100 N FIO2 (test code = FIO2A) 40.0 % PaO2/FiO2 (test code = VAT1PVH3) 134.70 mm/Hg ABG DELIVERY (test code = DELVIN) HFNC ABG TEMPERATURE (test code = TEMPA) 97.7 F ABG SITE (test code = SITEA) Art Line BASIC METABOLIC [id number] 15:23:00* Test Item Value Reference Range Interpretation [...] = POCGLU) 173 MG/DL 70-110 H HEMOGLOBIN [id number] 15:23:00* Test Item Value Reference Range Interpretation Comme nts HEMOGLOBIN ABG (test code = HGB/ABG) 8.6 G/DL 12.5-16.9 L [id number] 15:23:00* Test Item Value Reference Range Interpretation Comme nts HEMATOCRIT (test code = HCT/ABG) 25 % 37.5-50.7 L POC LACTIC [id number] 15:23:00* Test Item Value Reference Range Interpretation Comme nts POC LACTIC ACID (test code = POCLAC) 0.7 mmol/l 0.9-1.7 L [id number] 11:58:00* Test Item Value Reference Range Interpretation Comments SURGICAL (test code = SR) RUN DATE: 06/15/23 [facility] - LAB PAGE 1 RUN TIME: 1159 Specimen Inquiry RUN USER: INTERFACE PATIENT: MINDY CARTER LOC: [facility] U #: [id number] AGE/SX: 67/M ROOM: [facility] RE05/31/23REG DR: Kimmie Bacon MD : 53 BED: 1 DIS: STATUS: ADM IN TLOC: SPEC #: [id number] RECD: 06/14/23 STATUS: JEFF MARTIN #: [id number] KOFFI: 06/11/23- [facility] DR: Kimmie Bacon MD ENTERED: 06/14/23 SP TYPE: SURGICAL OTHR DR: No Primary or Family Physician Self Referred Clayton Nathan MD,[place] Martel,Nathaniel Mai,Eleonora Cotto,Joe Mcdonnell,Rigoberto Garcia MD, MDORDERED: 450[address], ANATOMIC SPEC COPIES TO: No Primary or Family Physician Self Referred Clayton Nathan MD [address] [id number] Nkechi Bacon MD [address] [place] [address] [place] [address] [facility] [address] [place] [address] Nathaniel Martel MD [address] [place] [address]. [address] [place] [id number] Eleonora Mai MD [address] [place], [place] [address]vd[place] [address] CONTINUED ON NEXT PAGE RUN DATE: 06/15/23 [place] - LAB PAGE 2 RUN TIME: 1159 Specimen Inquiry RUN USER: INTERFACE SPEC #: [id number] PATIENT: MINDY CARTER #[id number] (Continued) - COPIES TO: (Continued) Joe Cotto MD [address] [place] [address] Kareem Mcdonnell MD [address] [place] [address] Rigoberto Jarrell MD [facility] [address] [place] [address] PROCEDURES: 54477 (06/14/23-1113) TISSUES: A. ATRIUM - LEFT ATRIAL APPENDAGE FINAL DIAGNOSIS Heart, left atrial appendage, wedge biopsy: - Myocardium with focal ischemic change. GROSS DESCRIPTION Received in formalin labeled "left atrial appendage "is a wedge biopsy of heart, 3.5 x 2 x1.4 cm, sectioned and entirely submitted (A)-(B). Technical component performed at [facility],[address] [place] [address], [place] [address] Unless gross only, the diagnosis is based [...] Signed SIGNATURE ON FILE Jesus Jason 06/15/23 4291 END OF REPORT GLUCOSE [id number] 11:47:00* Test Item Value Reference Range Interpretation Comme nts GLUCOSE BEDSIDE (test code = GLUBED) 196 MG/DL 70-110 H Performed by cer raul 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 at [facility] BASIC METABOLIC [id number] 10:06:00* Test Item Value Reference Range Interpretation [...] code = CA) 8.2 mg/dL 8.0-10.5 N [id number] 10:06:00* Test Item Value Reference Range Interpretation Comme nts MAGNESIUM (test code = MAG) 2.30 mg/dL 1.6-2.6 N CALCIUM [id number] 10:06:00* Test Item Value Reference Range Interpretation Comme nts CALCIUM IONIZED (test code = CARLOS) 1.10 MMOL/L 1.09-1.30 N POC ARTERIAL BLOOD [id number] 09:49:00* Test Item Value Reference Range Interpretation Comme nts POC ARTERIAL BLOOD GAS PH (t est code = POCPHA) 7.407 7.35-7.45 N POC ARTERIAL BLOOD GAS PCO2 (test code = RYPHCU2H) 34.4 mmHg 35.0-45 L POC TCO2 ARTERIAL (test code = POCTCO2) 22.7 POC ARTERIAL BLOOD GAS PO2 ( test code = VGMZH8S) 89.7 mmHg 80-100.0 N POC HCO3 ARTERIAL (test code = GFYMCB8G) 21.6 MMOL/L 22.0-26.0 L POC BASE EXCESS (test code = POCBEA) -3.0 MMOL/L -4.0-4.0 N POC O2 SATURATION (test code = POCO2S) 97.1 % 90-100 N FIO2 (test code = FIO2A) 56 % PaO2/FiO2 (test code = WDL2NRC7) 160.17 mm/Hg ABG DELIVERY (test code = DELVIN) HFNC ABG TEMPERATURE (test code = TEMPA) 97.7 F ABG SITE (test code = SITEA) Art Line BASIC METABOLIC [id number] 09:49:00* Test Item Value Reference Range Interpretation [...] = POCGLU) 146 MG/DL 70-110 H HEMOGLOBIN [id number] 09:49:00* Test Item Value Reference Range Interpretation Comme nts HEMOGLOBIN ABG (test code = HGB/ABG) 10.1 G/DL 12.5-16.9 L [id number] 09:49:00* Test Item Value Reference Range Interpretation Comme nts HEMATOCRIT (test code = HCT/ABG) 30 % 37.5-50.7 L POC LACTIC [id number] 09:49:00* Test Item Value Reference Range Interpretation Comme nts POC LACTIC ACID (test code = POCLAC) 0.7 mmol/l 0.9-1.7 L GLUCOSE [id number] 08:27:00* Test Item Value Reference Range Interpretation Comme nts GLUCOSE BEDSIDE (test code = GLUBED) 168 MG/DL 70-110 H Performed by cer raul 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 at [facility] HEPATIC FUNCTION [id number] 07:37:00* Test Item Value Reference Range Interpretation [...] IUnit/L 20-125 N - XR CHEST 1 [id number] 07:28:00 [facility] 1955 Sex: M FAX: Kimmie Bcaon MD [phone] [place]: St: ADM FAX: Eleonora Mai MD [phone] FAX: Kareem Mcdonnell MD [phone] Name: MINDY CARTER [facility] : 1955 Age/S: 67/M [address] [place] [address] Unit #: [id number] Loc: [address] [place] [address] Phys: Kareem Mcdonnell MD Acct: [id number] Dis Date: Status: ADM IN PHONE #: [phone] Exam Date: 06/15/2023 06 FAX #: [phone] Reason: POST CABG E XAMS: CPT CODE: [id number] XR CHEST 1 V 51475 CHEST 1 VIEW: INDICATION: POST CABG COMPARISON: Comparison made with previous study of 06/14/2023 Location: C3 A single portable AP view of the chest demonstrates stable postsurgical change of median sternotomy and CABG. A right-sided Hastings-Chacorta catheter structures towards the right pulmonary artery. Pleural tubes are unchanged. The heart is enlarged. Hazy lung opacities and small right pleural effusion present. No apparent pneumothorax. The visualizedbony structures are unremarkable. IMPRESSION: 1. Lines and tubes are seen in suitable position. 2.CHF, unchanged. at 0728 Reported and signed by: Rogelio Casanova M.D. CC: Kimmie Bacon MD; Eleonora Mai MD; Kareem Mcdonnell MDTechnologist: RT Zaid(R) Trnscrd Date/Time/By: 06/15/2023 (07) : By: [email or web address] Orig Print D/T: S: 06/15/2023 (4027) PAGE 1 Signed ReportPO ARTERIAL BLOOD [id number] 05:24:00* Test Item Value Reference Range Interpretation Comme nts POC ARTERIAL BLOOD GAS PH (t est code = POCPHA) 7.395 7.35-7.45 N POC ARTERIAL BLOOD GAS PCO2 (test code = KIGERS6P) 37.2 mmHg 35.0-45 N POC TCO2 ARTERIAL (test code = POCTCO2) 23.9 POC ARTERIAL BLOOD GAS PO2 ( test code = KAJDS4B) 61.1 mmHg 80-100.0 L POC HCO3 ARTERIAL (test code = TRDRQJ9U) 22.8 MMOL/L 22.0-26.0 N POC BASE EXCESS (test code = POCBEA) -2.1 MMOL/L -4.0-4.0 N POC O2 SATURATION (test code = POCO2S) 91.0 % 90-100 N ABG DELIVERY (test code = DELVIN) HFNC ABG SITE (test code = SITEA) Art Line MABEL'S TEST (test code = ALLENS) N/A BASIC METABOLIC [id number] 05:24:00* Test Item Value Reference Range Interpretation [...] = POCGLU) 132 MG/DL 70-110 H HEMOGLOBIN [id number] 05:24:00* Test Item Value Reference Range Interpretation Comme nts HEMOGLOBIN ABG (test code = HGB/ABG) 10.6 G/DL 12.5-16.9 L [id number] 05:24:00* Test Item Value Reference Range Interpretation Comme nts HEMATOCRIT (test code = HCT/ABG) 31 % 37.5-50.7 L POC LACTIC [id number] 05:24:00* Test Item Value Reference Range Interpretation Comme nts POC LACTIC ACID (test code = POCLAC) 0.7 mmol/l 0.9-1.7 L BASIC METABOLIC [id number] 03:43:00* Test Item Value Reference Range Interpretation [...] code = CA) 8.3 mg/dL 8.0-10.5 N [id number] 03:43:00* Test Item Value Reference Range Interpretation Comme nts MAGNESIUM (test code = MAG) 2.18 mg/dL 1.6-2.6 N CBC W/AUTO [id number] 03:24:00* Test Item Value Reference Range Interpretation [...] NRBC#) 0.00 x10 3/uL 0.0-0.1 N GLUCOSE [id number] 03:23:00* Test Item Value Reference Range Interpretation Comme nts GLUCOSE BEDSIDE (test code = GLUBED) 169 MG/DL 70-110 H Performed by cer tified 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 at [facility] GLUCOSE [id number] 00:50:00* Test Item Value Reference Range Interpretation Comme nts GLUCOSE BEDSIDE (test code = GLUBED) 175 MG/DL 70-110 H Performed by cer tified 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 at [facility] GLUCOSE [id number] 22:42:00* Test Item Value Reference Range Interpretation Comme nts GLUCOSE BEDSIDE (test code = GLUBED) 213 MG/DL 70-110 H Performed by cer tified 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 at [facility] GLUCOSE [id number] 20:14:00* Test Item Value Reference Range Interpretation Comme nts GLUCOSE BEDSIDE (test code = GLUBED) 263 MG/DL 70-110 H Performed by cer tified 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 at [facility] GLUCOSE [id number] 19:24:00* Test Item Value Reference Range Interpretation Comme nts GLUCOSE BEDSIDE (test code = GLUBED) 290 MG/DL 70-110 H Performed by cer tified 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 at [facility] GLUCOSE [id number] 18:15:00* Test Item Value Reference Range Interpretation Comme nts GLUCOSE BEDSIDE (test code = GLUBED) 351 MG/DL 70-110 H Performed by cer tified 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 at [facility] GLUCOSE [id number] 17:36:00* Test Item Value Reference Range Interpretation Comme nts GLUCOSE BEDSIDE (test code = GLUBED) 300 MG/DL 70-110 H Performed by cer tified 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 at [facility] BASIC METABOLIC [id number] 13:30:00* Test Item Value Reference Range Interpretation [...] code = CA) 8.5 mg/dL 8.0-10.5 N [id number] 13:30:00* Test Item Value Reference Range Interpretation Comme nts MAGNESIUM (test code = MAG) 2.33 mg/dL 1.6-2.6 N CALCIUM [id number] 13:30:00* Test Item Value Reference Range Interpretation Comme nts CALCIUM IONIZED (test code = CARLOS) 1.15 MMOL/L 1.09-1.30 N GLUCOSE [id number] 12:15:00* Test Item Value Reference Range Interpretation Comme nts GLUCOSE BEDSIDE (test code = GLUBED) 194 MG/DL 70-110 H Performed by linda marcus at [facility] - US ABDOMEN [id number] 10:07:00 [facility] 1955 Sex: MName: MINDY CARTER [facility] : 1955 Age/S: 67 / M [address] [place] [address] Unit #:[id number] Loc: VIRA Hansen [address] Phys: Johnna Pablo Physic Acct: [id number] Dis Date: Status:ADM IN PHONE #: [phone] Exam Date: 06/14/2023940 FAX #: [phone] Reason: include focus on liver EXAMS: CPT CODE: [id number] US ABDOMEN COMPLETE 12671 EXAM: - US ABDOMEN COMPLETE LOCATION: C4 [...] 1 Signed Report (CONTINUED) Name: MINDY CARTER [facility] : 1955 Age/S: 67 / M [address] [place] [address] Unit #: [id number] Loc: [place] [address] Phys: Johnna Pablo Physic Acct: [id number] Dis Date: Status: ADM IN PHONE #: [phone] Exam Date: 06/14/202341 FAX #: [phone] Reason: include focus on liver EXAMS: CPT CODE: [id number] US ABDOMEN COMPLETE 93155 (Continued) at 1007 Reported and signed by: Desi Fry M.D. CC: Kimmie Bacon MD; Eleonora Mai MD; Johnna Pablo Technologist: Ceci Haddad RDMS(AB)(OB) Trnscb Date/Time: 06/14/2023 (1007) [email or web address] Orig Print D/T: S: 06/14/2023 (1010) Probe: PAGE 2 Signed Report- XR CHEST 1 [id number] 09:34:00 [facility] : 1955 Sex: M FAX: Kimmie aBcon MD [phone] [place]: St: ADM FAX: Nathaniel Shirley MD [phone] FAX: Eleonora Mai MD [phone] Name: MINDY CARTER [facility] : 1955 Age/S: 67/M [address] Unit #: [id number] Loc: G.[address] [place] [address] Phys: Nathaniel Martel MD Acct: [id number] Dis Date:Status: ADM IN PHONE #: [phone] Exam Date: 06/14/2023 0609 FAX #: [phone] Reason: Cardiac Surgery Post Op EXAMS: CPT CODE: [id number] XR CHEST 1 V 07945 Dictation location: C4. CHEST, FRONTAL VIEW HISTORY: Cardiac Surgery Post Op FINDINGS: Since 06/13/23, the right IJ Hastings-Chacorta catheter remains in the main pulmonary artery directed toward towards the right. Left chest tube is stable in position. Small left apical pneumothorax. Mild right basal atelectasis with new small right pleural effusion. Cardiomegaly with mild vascular congestion. Stable left basilar pulmonary opacities. Sternotomy wires. Thoracic spondylosis. IMPRESSION: A small left apical pneumothorax is now evident. The left chest tube is stable in position. Small right pleural effusion. Stable left pulmonary opacities. at 0934 Reported and signed by: Elio Pimentel M.D. CC: Kimmie Bacon MD; Nathaniel Martel MD; Eleonora Mai MD Technologist: CHATA Adams) Trnscrd Date/Time/By: 06/14/2023 (0934) : By: [email or web address] Orig Print D/T: S: 06/14/2023 (0918) PAGE 1 Signed ReportBASIC METABOLIC [id number] 05:55:00* Test Item Value Reference Range Interpretation [...] mg/dL 8.0-10.5 N COMMENTS: POD #1HEPATIC FUNCTION [id number] 05:55:00* Test Item Value Reference Range Interpretation [...] ALKP) 101 IUnit/L 20-125 N COMMENTS: POD #[id number] 05:55:00* Test Item Value Reference Range Interpretation Comme nts MAGNESIUM (test code = MAG) 2.47 mg/dL 1.6-2.6 N COMMENTS: POD #1CBC W/AUTO [id number] 05:10:00* Test Item Value Reference Range Interpretation [...] NRBC#) 0.04 x10 3/uL 0.0-0.1 N GLUCOSE [id number] 05:09:00* Test Item Value Reference Range Interpretation Comme nts GLUCOSE BEDSIDE (test code = GLUBED) 225 MG/DL 70-110 H Performed by cer tified 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 at [facility] GLUCOSE [id number] 04:17:00* Test Item Value Reference Range Interpretation Comme nts GLUCOSE BEDSIDE (test code = GLUBED) 255 MG/DL 70-110 H Performed by linda carter 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 at [facility] POC ARTERIAL BLOOD [id number] 04:01:00* Test Item Value Reference Range Interpretation Comme nts POC ARTERIAL BLOOD GAS PH (t est code = POCPHA) 7.443 7.35-7.45 N POC ARTERIAL BLOOD GAS PCO2 (test code = NDRLND8O) 27.0 mmHg 35.0-45 LL POC TCO2 ARTERIAL (test code = POCTCO2) 19.4 POC ARTERIAL BLOOD GAS PO2 ( test code = MRWWJ9C) 88.4 mmHg 80-100.0 N POC HCO3 ARTERIAL (test code = GLDNSO5I) 18.6 MMOL/L 22.0-26.0 L POC BASE EXCESS (test code = POCBEA) -5.7 MMOL/L -4.0-4.0 L POC O2 SATURATION (test code = POCO2S) 97.5 % 90-100 N FIO2 (test code = FIO2A) 60.0 % PaO2/FiO2 (test code = TJV6GXO5) 147.30 mm/Hg ABG DELIVERY (test code = DELVIN) BiPAP ABG VENT RESP RATE (test cod e = RRA) 18 /MIN ABG TEMPERATURE (test code = TEMPA) 97.7 F ABG SITE (test code = SITEA) Art Line BASIC METABOLIC [id number] 04:01:00* Test Item Value Reference Range Interpretation [...] = POCGLU) 247 MG/DL 70-110 H HEMOGLOBIN [id number] 04:01:00* Test Item Value Reference Range Interpretation Comme nts HEMOGLOBIN ABG (test code = HGB/ABG) 11.0 G/DL 12.5-16.9 L [id number] 04:01:00* Test Item Value Reference Range Interpretation Comme nts HEMATOCRIT (test code = HCT/ABG) 32 % 37.5-50.7 L POC LACTIC [id number] 04:01:00* Test Item Value Reference Range Interpretation Comme nts POC LACTIC ACID (test code = POCLAC) 1.5 mmol/l 0.9-1.7 N GLUCOSE [id number] 03:06:00* Test Item Value Reference Range Interpretation Comme nts GLUCOSE BEDSIDE (test code = GLUBED) 313 MG/DL 70-110 H Performed by cer tified 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 at [facility] BASIC METABOLIC [id number] 02:32:00* Test Item Value Reference Range Interpretation [...] code = CA) 8.6 mg/dL 8.0-10.5 N [id number] 02:32:00* Test Item Value Reference Range Interpretation Comme nts MAGNESIUM (test code = MAG) 2.40 mg/dL 1.6-2.6 N CALCIUM [id number] 02:32:00* Test Item Value Reference Range Interpretation Comme nts CALCIUM IONIZED (test code = CARLOS) 1.16 MMOL/L 1.09-1.30 N GLUCOSE [id number] 22:54:00* Test Item Value Reference Range Interpretation Comme nts GLUCOSE BEDSIDE (test code = GLUBED) 239 MG/DL 70-110 H Performed by cer raul 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 at [facility] BASIC METABOLIC [id number] 21:19:00* Test Item Value Reference Range Interpretation [...] code = CA) 8.5 mg/dL 8.0-10.5 N [id number] 21:19:00* Test Item Value Reference Range Interpretation Comme nts MAGNESIUM (test code = MAG) 2.42 mg/dL 1.6-2.6 N CALCIUM [id number] 21:19:00* Test Item Value Reference Range Interpretation Comme nts CALCIUM IONIZED (test code = CARLOS) 1.08 MMOL/L 1.09-1.30 L POC ARTERIAL BLOOD [id number] 20:46:00* Test Item Value Reference Range Interpretation Comme nts POC ARTERIAL BLOOD GAS PH (t est code = POCPHA) 7.424 7.35-7.45 N POC ARTERIAL BLOOD GAS PCO2 (test code = AWXRID8C) 27.4 mmHg 35.0-45 LL POC TCO2 ARTERIAL (test code = POCTCO2) 18.9 POC ARTERIAL BLOOD GAS PO2 ( test code = KUNEG5J) 73.6 mmHg 80-100.0 L POC HCO3 ARTERIAL (test code = HHUSBG2E) 18.0 MMOL/L 22.0-26.0 L POC BASE EXCESS (test code = POCBEA) -6.5 MMOL/L -4.0-4.0 L POC O2 SATURATION (test code = POCO2S) 95.6 % 90-100 N FIO2 (test code = FIO2A) 60.0 % PaO2/FiO2 (test code = PNI6HBF5) 122.60 mm/Hg ABG DELIVERY (test code = DELVIN) BiPAP ABG VENT RESP RATE (test cod e = RRA) 18 /MIN ABG TEMPERATURE (test code = TEMPA) 97.6 F ABG SITE (test code = SITEA) Art Line BASIC METABOLIC [id number] 20:46:00* Test Item Value Reference Range Interpretation [...] = POCGLU) 258 MG/DL 70-110 H HEMOGLOBIN [id number] 20:46:00* Test Item Value Reference Range Interpretation Comme nts HEMOGLOBIN ABG (test code = HGB/ABG) 12.1 G/DL 12.5-16.9 L [id number] 20:46:00* Test Item Value Reference Range Interpretation Comme nts HEMATOCRIT (test code = HCT/ABG) 36 % 37.5-50.7 L POC LACTIC [id number] 20:46:00* Test Item Value Reference Range Interpretation Comme nts POC LACTIC ACID (test code = POCLAC) 1.2 mmol/l 0.9-1.7 N GLUCOSE [id number] 20:24:00* Test Item Value Reference Range Interpretation Comme nts GLUCOSE BEDSIDE (test code = GLUBED) 242 MG/DL 70-110 H Performed by cer tified 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 at [facility] GLUCOSE [id number] 19:02:00* Test Item Value Reference Range Interpretation Comme nts GLUCOSE BEDSIDE (test code = GLUBED) 204 MG/DL 70-110 H Performed by cer tified 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 at [facility] GLUCOSE [id number] 17:06:00* Test Item Value Reference Range Interpretation Comme nts GLUCOSE BEDSIDE (test code = GLUBED) 133 MG/DL 70-110 H Performed by cer tified 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 at [facility] GLUCOSE [id number] 15:39:00* Test Item Value Reference Range Interpretation Comme nts GLUCOSE BEDSIDE (test code = GLUBED) 153 MG/DL 70-110 H Performed by cer [employer] 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 at [facility] BASIC METABOLIC [id number] 14:21:00* Test Item Value Reference Range Interpretation [...] = CA) 9.7 mg/dL 8.0-10.5 N GLUCOSE [id number] 13:59:00* Test Item Value Reference Range Interpretation Comme [facility] GLUCOSE BEDSIDE (test code = GLUBED) 165 MG/DL 70-110 H Performed by cer tified 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 at [facility] POC ARTERIAL BLOOD [id number] 12:50:00* Test Item Value Reference Range Interpretation Comme nts POC ARTERIAL BLOOD GAS PH (t est code = POCPHA) 7.386 7.35-7.45 N POC ARTERIAL BLOOD GAS PCO2 (test code = KLCETF3E) 29.9 mmHg 35.0-45 LL POC TCO2 ARTERIAL (test code = POCTCO2) 18.8 POC ARTERIAL BLOOD GAS PO2 ( test code = TTQQM8K) 88.5 mmHg 80-100.0 N POC HCO3 ARTERIAL (test code = ZECWBZ0Q) 17.9 MMOL/L 22.0-26.0 LL POC BASE EXCESS (test code = POCBEA) -7.1 MMOL/L -4.0-4.0 L POC O2 SATURATION (test code = POCO2S) 96.8 % 90-100 N FIO2 (test code = FIO2A) 60.0 % PaO2/FiO2 (test code = CEZ7CFW1) 147.50 mm/Hg ABG DELIVERY (test code = DELVIN) BiPAP ABG SITE (test code = SITEA) L Radial BASIC METABOLIC [id number] 12:50:00* Test Item Value Reference Range Interpretation Comme [facility] SODIUM (test code = NA/ABG) 129 mmol/L 134-147 L POTASSIUM (test code = K/ABG) 5.3 mmol/L 3.4-5.0 H CHLORIDE (test code = CL/ABG) 103 mmol/L 100-108 N CREATININE ABG (test code = CREAABG) 2.2 mg/dL 0.8-1.3 H POC IONIZED CALCIUM (test co de = POCCA) 1.13 MMOL/L 1.12-1.32 N POC GLUCOSE (test code = POCGLU) 171 MG/DL 70-110 H HEMOGLOBIN [id number] 12:50:00* Test Item Value Reference Range Interpretation Comme nts HEMOGLOBIN ABG (test code = HGB/ABG) 12.4 G/DL 12.5-16.9 L [id number] 12:50:00* Test Item Value Reference Range Interpretation Comme nts HEMATOCRIT (test code = HCT/ABG) 36 % 37.5-50.7 L POC LACTIC [id number] 12:50:00* Test Item Value Reference Range Interpretation Comme nts POC LACTIC ACID (test code = POCLAC) 1.1 mmol/l 0.9-1.7 N GLUCOSE [id number] 12:08:00* Test Item Value Reference Range Interpretation Comme nts GLUCOSE BEDSIDE (test code = GLUBED) 181 MG/DL 70-110 H Performed by cer tified 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 at [facility] LACTIC [id number] 10:44:00* Test Item Value Reference Range Interpretation Comme nts LACTIC ACID (test code = LACT) 1.5 mmol/L 0.4-1.9 N POC ARTERIAL BLOOD [id number] 09:41:00* Test Item Value Reference Range Interpretation Comme nts POC ARTERIAL BLOOD GAS PH (t est code = POCPHA) 7.383 7.35-7.45 N POC ARTERIAL BLOOD GAS PCO2 (test code = IMZKXG9S) 29.5 mmHg 35.0-45 LL POC TCO2 ARTERIAL (test code = POCTCO2) 18.5 POC ARTERIAL BLOOD GAS PO2 ( test code = UWCTP5P) 86.3 mmHg 80-100.0 N POC HCO3 ARTERIAL (test code = SAPJVQ0Q) 17.6 MMOL/L 22.0-26.0 LL POC BASE EXCESS (test code = POCBEA) -7.5 MMOL/L -4.0-4.0 L POC O2 SATURATION (test code = POCO2S) 96.6 % 90-100 N BASIC METABOLIC [id number] 09:41:00* Test Item Value Reference Range Interpretation [...] = POCGLU) 212 MG/DL 70-110 H HEMOGLOBIN [id number] 09:41:00* Test Item Value Reference Range Interpretation Comme nts HEMOGLOBIN ABG (test code = HGB/ABG) 11.7 G/DL 12.5-16.9 L [id number] 09:41:00* Test Item Value Reference Range Interpretation Comme nts HEMATOCRIT (test code = HCT/ABG) 35 % 37.5-50.7 L POC LACTIC [id number] 09:41:00* Test Item Value Reference Range Interpretation Comme nts POC LACTIC ACID (test code = POCLAC) 1.3 mmol/l 0.9-1.7 N - XR CHEST 1 [id number] 07:53:00 [facility] : 1955 Sex: M FAX: Kimmie Bacon MD [phone] [place]: St: ADM FAX: Nathaniel Shirley MD [phone] FAX: Eleonora Mai MD [phone] Name: [facility]INDY CARTER [facility] 1955 Age/S: 67/M [address] [place] [address] Blvd Unit #: [id number] Loc: [address] [address] Phys: Nathaniel Martel MD Acct: [id number] Dis Date: Status: ADM IN PHONE #: [phone] Exam Date: 06/13/2023728 FAX #: [phone] Reason: Cardiac Surgery Post Op EXAMS: CPT CODE: [id number] XR CHEST 1 V 63884 Location: C3 EXAM: - XR CHEST 1 V INDICATION: Cardiac Surgery Post Op COMPARISON: 06/12/2023 TECHNIQUE: AP Chest FINDINGS: Lines, tubes and hardware: Median sternotomy wires again noted. Right-sided Hastings-Chacorta catheter tip overlies the expected location of the main pulmonary artery. Approximately unchanged left-sided chest tube. Lungs and pleura: Approximately similar appearance of bilateral perihilar and lower lobe opacities, left slightly greater than right. No large pleural effusion. No appreciable pneumothorax. Heart/mediastinum: The cardiomediastinal silhouette is stable. Bones/soft tissues: No acute bony abnormality. IMPRESSION: 1. Lines and tubes, as above. 2. Otherwise, no significant interval change. ElectronicallySigned by Kavya Farmer on 06/13/2023 at 0753 Reported and signed by: Nicolas Farmer M.D. CC: Kimmie Bacon MD; Nathaniel Martel MD; Eleonora Mai MD Technologist: Carli Baker RT(R); RT Justen(R) Trncard Date/Time/By: 06/13/2023 (0753) : By: [email or web address] Orig Print D/T: S: 06/13/2023 (0756) PAGE 1 Signed ReportC[facility] 2023-06-13 07:27:00* Test Item Value Reference Range Interpretation Comme nts POC ARTERIAL BLOOD GAS PH (t est code = POCPHA) 7.419 7.35-7.45 N POC ARTERIAL BLOOD GAS PCO2 (test code = [id number]) 26.9 mmHg 35.0-45 LL POC TCO2 ARTERIAL (test code = POCTCO2) 18.3 POC ARTERIAL BLOOD GAS PO2 ( test code = XQWVF6C) 84.5 mmHg 80-100.0 N POC HCO3 ARTERIAL (test code = YGAFYU6Y) 17.4 MMOL/L 22.0-26.0 LL POC BASE EXCESS (test code = POCBEA) -7.1 MMOL/L -4.0-4.0 L POC O2 SATURATION (test code = POCO2S) 96.8 % 90-100 N FIO2 (test code = FIO2A) 60 % PaO2/FiO2 (test code = [id number]) 140.83 mm/Hg ABG DELIVERY (test code = DELVIN) BiPAP ABG SITE (test code = SITEA) L Radial BASIC METABOLIC [id number] 07:27:00* Test Item Value Reference Range Interpretation [...] = POCGLU) 235 MG/DL 70-110 H HEMOGLOBIN [id number] 07:27:00* Test Item Value Reference Range Interpretation Comme nts HEMOGLOBIN ABG (test code = HGB/ABG) 11.4 G/DL 12.5-16.9 L [id number] 07:27:00* Test Item Value Reference Range Interpretation Comme nts HEMATOCRIT (test code = HCT/ABG) 34 % 37.5-50.7 L POC LACTIC [id number] 07:27:00* Test Item Value Reference Range Interpretation Comme nts POC LACTIC ACID (test code = POCLAC) 1.3 mmol/l 0.9-1.7 N BASIC METABOLIC [id number] 07:18:00* Test Item Value Reference Range Interpretation [...] = POCGLU) 162 MG/DL 70-110 H HEMOGLOBIN [id number] 07:18:00* Test Item Value Reference Range Interpretation Comme nts HEMOGLOBIN ABG (test code = HGB/ABG) 11.3 G/DL 12.5-16.9 L [id number] 07:18:00* Test Item Value Reference Range Interpretation Comme nts HEMATOCRIT (test code = HCT/ABG) 33 % 37.5-50.7 L POC LACTIC [id number] 07:18:00* Test Item Value Reference Range Interpretation Comme nts POC LACTIC ACID (test code = POCLAC) 0.6 mmol/l 0.9-1.7 L POC VENOUS BLOOD [id number] 07:18:00* Test Item Value Reference Range Interpretation Comme nts POC VENOUS BLOOD GAS PH (maurice t code = POCPHV) 7.360 7.33-7.45 N POC VENOUS BLOOD GAS PCO2 (t est code = PPEHNV2T) 37.3 mmHg 43-47 L POC VENOUS BLOOD GAS PO2 (te st code = BVKST4Z) 32.7 mmHG 10-50 N POC TCO2 VENOUS (test code = MWTUFX7T) 22.2 POC HCO3 VENOUS (test code = DFODQO9C) 21.1 MMOL/L 22-27 L POC BASE EXCESS VENOUS (test code = POCBEV) -4.3 MMOL/L -4.0-4.0 L POC O2 SATURATION VENOUS (te st code = LHUT6FP) 61.0 % 60-80 N VENOUS BLOOD GAS DELIVERY (t est code = DELV) Cannula VENOUS BLOOD GAS TEMP (test code = TEMPV) 98 F VENOUS BLOOD GAS SITE (test code = SITEV) PA CBC W/AUTO [id number] 05:19:00* Test Item Value Reference Range Interpretation [...] 0.00 x10 3/uL 0.0-0.1 N BASIC METABOLIC [id number] 03:59:00* Test Item Value Reference Range Interpretation [...] mg/dL 8.0-10.5 N COMMENTS: POD #1HEPATIC FUNCTION [id number] 03:59:00* Test Item Value Reference Range Interpretation [...] ALKP) 73 IUnit/L 20-125 N COMMENTS: POD #[id number] 03:59:00* Test Item Value Reference Range Interpretation Comme nts MAGNESIUM (test code = MAG) 2.46 mg/dL 1.6-2.6 N COMMENTS: POD #1POC ARTERIAL BLOOD [id number] 03:23:00* Test Item Value Reference Range Interpretation Comme nts POC ARTERIAL BLOOD GAS PH (t est code = POCPHA) 7.374 7.35-7.45 N POC ARTERIAL BLOOD GAS PCO2 (test code = QJNKAN0V) 32.4 mmHg 35.0-45 L POC TCO2 ARTERIAL (test code = POCTCO2) 19.9 POC ARTERIAL BLOOD GAS PO2 ( test code = YJNYA1A) 90.5 mmHg 80-100.0 N POC HCO3 ARTERIAL (test code = YMJENY4P) 18.9 MMOL/L 22.0-26.0 L POC BASE EXCESS (test code = POCBEA) -6.3 MMOL/L -4.0-4.0 L POC O2 SATURATION (test code = POCO2S) 96.9 % 90-100 N FIO2 (test code = FIO2A) 60 % PaO2/FiO2 (test code = WUS7ATQ1) 150.83 mm/Hg ABG DELIVERY (test code = DELVIN) BiPAP ABG TEMPERATURE (test code = TEMPA) 98 F ABG SITE (test code = SITEA) Art Line BASIC METABOLIC [id number] 03:23:00* Test Item Value Reference Range Interpretation [...] = POCGLU) 162 MG/DL 70-110 H HEMOGLOBIN [id number] 03:23:00* Test Item Value Reference Range Interpretation Comme nts HEMOGLOBIN ABG (test code = HGB/ABG) 10.7 G/DL 12.5-16.9 L [id number] 03:23:00* Test Item Value Reference Range Interpretation Comme nts HEMATOCRIT (test code = HCT/ABG) 32 % 37.5-50.7 L POC LACTIC [id number] 03:23:00* Test Item Value Reference Range Interpretation Comme nts POC LACTIC ACID (test code = POCLAC) 0.9 mmol/l 0.9-1.7 N GLUCOSE [id number] 01:10:00* Test Item Value Reference Range Interpretation Comme nts GLUCOSE BEDSIDE (test code = GLUBED) 160 MG/DL 70-110 H Performed by cer raul 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 at [facility] BASIC METABOLIC [id number] 22:54:00* Test Item Value Reference Range Interpretation [...] = CA) 8.9 mg/dL 8.0-10.5 N GLUCOSE [id number] 21:41:00* Test Item Value Reference Range Interpretation Comme nts GLUCOSE BEDSIDE (test code = GLUBED) 185 MG/DL 70-110 H Performed by cer tified 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 at [facility] GLUCOSE [id number] 18:44:00* Test Item Value Reference Range Interpretation Comme nts GLUCOSE BEDSIDE (test code = GLUBED) 319 MG/DL 70-110 H Performed by EGT 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 at [facility] GLUCOSE [id number] 16:43:00* Test Item Value Reference Range Interpretation Comme nts GLUCOSE BEDSIDE (test code = GLUBED) 336 MG/DL 70-110 H Performed by PlayDo tified 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 at [facility] GLUCOSE [id number] 15:21:00* Test Item Value Reference Range Interpretation Comme nts GLUCOSE BEDSIDE (test code = GLUBED) 356 MG/DL 70-110 H Performed by Play[employer] tified 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 at [facility] GLUCOSE [id number] 14:09:00* Test Item Value Reference Range Interpretation Comme nts GLUCOSE BEDSIDE (test code = GLUBED) 352 MG/DL 70-110 H Performed by Play[employer] tified 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 at [facility] GLUCOSE [id number] 11:56:00* Test Item Value Reference Range Interpretation Comme nts GLUCOSE BEDSIDE (test code = GLUBED) 293 MG/DL 70-110 H Performed by EGT 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 at [facility] - XR CHEST 1 [id number] 08:52:00 [facility] 1955 Sex: M FAX: Nathaniel Shirley MD [phone] [place]: St: ADM FAX: Eleonora Mai MD [phone] FAX:Denise Montejo MD Name: MINDY CARTER [facility] : 1955 Age/S: 67/M [address] [place] [address] Blvd Unit #: [id number] Loc: G.[address] [place] [address] Phys: Nathaniel Martel MD Acct: [id number] Dis Date: Status: ADM IN PHONE #: [phone] Exam Date: 06/12/2023 0832 FAX #: [phone] Reason: Cardiac Surg gina Post Op EXAMS: CPT CODE: [id number] XR CHEST 1 V 64040 CLINICAL HISTORY: Cardiac Surgery Post Op. LOCATION: A1 FINDINGS: Comparison is made with a previous study dated June 11, 2023. A portable AP view of the chest is dated 06/12/2023 7:00 AM. There is stable moderate cardiomegaly. Endotracheal tube has been removed. No other change in tubes or lines. There is pulmonary vascular congestion and mild diffuse interstitial prominence. There is moderate infiltrate at the left lower lung as wellas mild infiltrate at the left midlung and diffuse mild infiltrates within the right lung. No definite pleural effusions. Skeletal structures and soft tissues appear stable. IMPRESSION: 1. Status post endotracheal tube removal. No other significant change. at 0852 Reported and signed by: Irwin Aaron M.D. CC: Nathaniel Martel MD; Eleonora Mai MD; Denise Montejo MD Technologist: Arabella Diaz, RT(R); Carli Baker, RT(R) Trnscrd Date/Time/By: 06/12/2023 (0852) : By: [email or web address] Orig Print D/T: S: 06/12/2023 (5860) PAGE1 Signed ReportPO ARTERIAL BLOOD [id number] 06:46:00* Test Item Value Reference Range Interpretation Comme nts POC ARTERIAL BLOOD GAS PH (t est code = POCPHA) 7.361 7.35-7.45 N POC ARTERIAL BLOOD GAS PCO2 (test code = LGIPKN4U) 34.9 mmHg 35.0-45 L POC TCO2 ARTERIAL (test code = POCTCO2) 21.0 POC ARTERIAL BLOOD GAS PO2 ( test code = LDWRE6X) 80.1 mmHg 80-100.0 N POC HCO3 ARTERIAL (test code = LYSJYQ6G) 19.9 MMOL/L 22.0-26.0 L POC BASE EXCESS (test code = POCBEA) -5.6 MMOL/L -4.0-4.0 L POC O2 SATURATION (test code = POCO2S) 95.6 % 90-100 N ABG DELIVERY (test code = DELVIN) 12L HFNC ABG TEMPERATURE (test code = TEMPA) 98 F ABG SITE (test code = SITEA) Art Line BASIC METABOLIC [id number] 06:46:00* Test Item Value Reference Range Interpretation [...] = POCGLU) 228 MG/DL 70-110 H HEMOGLOBIN [id number] 06:46:00* Test Item Value Reference Range Interpretation Comme nts HEMOGLOBIN ABG (test code = HGB/ABG) 10.6 G/DL 12.5-16.9 L [id number] 06:46:00* Test Item Value Reference Range Interpretation Comme nts HEMATOCRIT (test code = HCT/ABG) 31 % 37.5-50.7 L POC LACTIC [id number] 06:46:00* Test Item Value Reference Range Interpretation Comme nts POC LACTIC ACID (test code = POCLAC) 1.5 mmol/l 0.9-1.7 N BASIC METABOLIC [id number] 04:12:00* Test Item Value Reference Range Interpretation [...] = POCGLU) 208 MG/DL 70-110 H HEMOGLOBIN [id number] 04:12:00* Test Item Value Reference Range Interpretation Comme nts HEMOGLOBIN ABG (test code = HGB/ABG) 11.4 G/DL 12.5-16.9 L [id number] 04:12:00* Test Item Value Reference Range Interpretation Comme nts HEMATOCRIT (test code = HCT/ABG) 33 % 37.5-50.7 L POC LACTIC [id number] 04:12:00* Test Item Value Reference Range Interpretation Comme nts POC LACTIC ACID (test code = POCLAC) 1.7 mmol/l 0.9-1.7 N POC VENOUS BLOOD [id number] 04:12:00* Test Item Value Reference Range Interpretation Comme nts POC VENOUS BLOOD GAS PH (maurice t code = POCPHV) 7.322 7.33-7.45 L POC VENOUS BLOOD GAS PCO2 (t est code = KLTDBV9C) 44.0 mmHg 43-47 N POC VENOUS BLOOD GAS PO2 (te st code = LYKMQ0O) 45.0 mmHG 10-50 N POC TCO2 VENOUS (test code = ZVEDIM0F) 24.1 POC HCO3 VENOUS (test code = GUBYMN3E) 22.8 MMOL/L 22-27 N POC BASE EXCESS VENOUS (test code = POCBEV) -3.3 MMOL/L -4.0-4.0 N POC O2 SATURATION VENOUS (te st code = UVZW5UI) 77.0 % 60-80 N VENOUS BLOOD GAS FIO2 (test code = FIO2V) 60.0 % VENOUS BLOOD GAS DELIVERY (t est code = DELV) BiPAP VENOUS BLOOD GAS PEEP (test code = PEEPV) 6 cmH2O PRESSURE SUPPORT (test code = PSV) 12 cmH2O VENOUS BLOOD GAS SITE (test code = SITEV) PA PROTHROMBIN [id number] 02:50:00* Test Item Value Reference Range Interpretation [...] Infarction (to prevent recurrent infarct). THROMBOPLASTIN TIME [id number] 02:50:00* Test Item Value Reference Range Interpretation Comme nts THROMBOPLASTIN TIME PARTIAL (test code = PTT) 31.2 Seconds 25.0-39.5 N Therapeutic Rang e: 50.4 - 88.3 Seconds Effective 07/12/2018 POC ARTERIAL BLOOD [id number] 02:49:00* Test Item Value Reference Range Interpretation Comme nts POC ARTERIAL BLOOD GAS PH (t est code = POCPHA) 7.349 7.35-7.45 L POC ARTERIAL BLOOD GAS PCO2 (test code = DSWBQY4Y) 40.2 mmHg 35.0-45 N POC TCO2 ARTERIAL (test code = POCTCO2) 23.4 POC ARTERIAL BLOOD GAS PO2 ( test code = PGXLR3C) 112.5 mmHg 80-100.0 H POC HCO3 ARTERIAL (test code = BSKUGS9P) 22.1 MMOL/L 22.0-26.0 N POC BASE EXCESS (test code = POCBEA) -3.5 MMOL/L -4.0-4.0 N POC O2 SATURATION (test code = POCO2S) 98.2 % 90-100 N FIO2 (test code = FIO2A) 60 % PaO2/FiO2 (test code = OZN2OMY9) 187.50 mm/Hg ABG DELIVERY (test code = DELVIN) BiPAP ABG PEEP (test code = PEEPA) 5 cmH2O ABG PRESSURE SUPPORT (test c ode = PSABG) 12 cmH2O ABG TEMPERATURE (test code = TEMPA) 97.5 F ABG SITE (test code = SITEA) Art Line BASIC METABOLIC [id number] 02:49:00* Test Item Value Reference Range Interpretation [...] = POCGLU) 223 MG/DL 70-110 H HEMOGLOBIN [id number] 02:49:00* Test Item Value Reference Range Interpretation Comme nts HEMOGLOBIN ABG (test code = HGB/ABG) 10.6 G/DL 12.5-16.9 L [id number] 02:49:00* Test Item Value Reference Range Interpretation Comme nts HEMATOCRIT (test code = HCT/ABG) 31 % 37.5-50.7 L POC LACTIC [id number] 02:49:00* Test Item Value Reference Range Interpretation Comme nts POC LACTIC ACID (test code = POCLAC) 1.7 mmol/l 0.9-1.7 N BASIC METABOLIC [id number] 02:48:00* Test Item Value Reference Range Interpretation [...] mg/dL 8.0-10.5 N COMMENTS: POD #1HEPATIC FUNCTION [id number] 02:48:00* Test Item Value Reference Range Interpretation [...] ALKP) 74 IUnit/L 20-125 N COMMENTS: POD #[id number] 02:48:00* Test Item Value Reference Range Interpretation Comme nts MAGNESIUM (test code = MAG) 2.41 mg/dL 1.6-2.6 N COMMENTS: POD #1CBC W/AUTO [id number] 02:31:00* Test Item Value Reference Range Interpretation [...] NRBC#) 0.00 x10 3/uL 0.0-0.1 N GLUCOSE [id number] 00:03:00* Test Item Value Reference Range Interpretation Comme nts GLUCOSE BEDSIDE (test code = GLUBED) 275 MG/DL 70-110 H 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 by 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 carter 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 at [facility] POC ARTERIAL BLOOD [id number] 23:30:00* Test Item Value Reference Range Interpretation Comme nts POC ARTERIAL BLOOD GAS PH (t est code = POCPHA) 7.367 7.35-7.45 N POC ARTERIAL BLOOD GAS PCO2 (test code = XJSKHX6T) 37.0 mmHg 35.0-45 N POC TCO2 ARTERIAL (test code = POCTCO2) 22.4 POC ARTERIAL BLOOD GAS PO2 ( test code = GHGZD9F) 66.0 mmHg 80-100.0 L POC HCO3 ARTERIAL (test code = XCDGJX9U) 21.2 MMOL/L 22.0-26.0 L POC BASE EXCESS (test code = POCBEA) -4.1 MMOL/L -4.0-4.0 L POC O2 SATURATION (test code = POCO2S) 92.2 % 90-100 N ABG DELIVERY (test code = DELVIN) Cannula ABG TEMPERATURE (test code = TEMPA) 97.7 F ABG SITE (test code = SITEA) Art Line BASIC METABOLIC [id number] 23:30:00* Test Item Value Reference Range Interpretation [...] = POCGLU) 265 MG/DL 70-110 H HEMOGLOBIN [id number] 23:30:00* Test Item Value Reference Range Interpretation Comme nts HEMOGLOBIN ABG (test code = HGB/ABG) 11.9 G/DL 12.5-16.9 L [id number] 23:30:00* Test Item Value Reference Range Interpretation Comme nts HEMATOCRIT (test code = HCT/ABG) 35 % 37.5-50.7 L POC LACTIC [id number] 23:30:00* Test Item Value Reference Range Interpretation Comme nts POC LACTIC ACID (test code = POCLAC) 2.7 mmol/l 0.9-1.7 H GLUCOSE [id number] 23:18:00* Test Item Value Reference Range Interpretation Comme nts GLUCOSE BEDSIDE (test code = GLUBED) 288 MG/DL 70-110 H Performed by cer raul 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 at [facility] POC ARTERIAL BLOOD [id number] 21:52:00* Test Item Value Reference Range Interpretation Comme nts POC ARTERIAL BLOOD GAS PH (t est code = POCPHA) 7.390 7.35-7.45 N POC ARTERIAL BLOOD GAS PCO2 (test code = GIJPMK8P) 36.4 mmHg 35.0-45 N POC TCO2 ARTERIAL (test code = POCTCO2) 23.2 POC ARTERIAL BLOOD GAS PO2 ( test code = ZNIRG8A) 65.5 mmHg 80-100.0 L POC HCO3 ARTERIAL (test code = FQGPQF6A) 22.1 MMOL/L 22.0-26.0 N POC BASE EXCESS (test code = POCBEA) -2.9 MMOL/L -4.0-4.0 N POC O2 SATURATION (test code = POCO2S) 92.5 % 90-100 N FIO2 (test code = FIO2A) 50 % PaO2/FiO2 (test code = MAU2GFL6) 131.00 mm/Hg ABG DELIVERY (test code = DELVIN) Adult Vent ABG VENT MODE (test code = MODEA) PC/PS ABG PEEP (test code = PEEPA) 5 cmH2O ABG PRESSURE SUPPORT (test c ode = PSABG) 12 cmH2O ABG TEMPERATURE (test code = TEMPA) 99 F ABG SITE (test code = SITEA) Art Line BASIC METABOLIC [id number] 21:52:00* Test Item Value Reference Range Interpretation [...] = POCGLU) 264 MG/DL 70-110 H HEMOGLOBIN [id number] 21:52:00* Test Item Value Reference Range Interpretation Comme nts HEMOGLOBIN ABG (test code = HGB/ABG) 12.1 G/DL 12.5-16.9 L [id number] 21:52:00* Test Item Value Reference Range Interpretation Comme nts HEMATOCRIT (test code = HCT/ABG) 35 % 37.5-50.7 L POC LACTIC [id number] 21:52:00* Test Item Value Reference Range Interpretation Comme nts POC LACTIC ACID (test code = POCLAC) 2.4 mmol/l 0.9-1.7 H PROTHROMBIN [id number] 21:35:00* Test Item Value Reference Range Interpretation [...] prevent recurrent infarct). COMMENTS: On arrivalTHROMBOPLASTIN TIME [id number] 21:35:00* Test Item Value Reference Range Interpretation Comme nts THROMBOPLASTIN TIME PARTIAL (test code = PTT) 35.8 Seconds 25.0-39.5 Therapeutic Rang e: 50.4 - 88.3 Seconds Effective 07/12/2018 COMMENTS: On arrival- XR CHEST 1 [id number] 21:30:00 [facility] 1955 Sex: M FAX: Nathaniel Shirley MD [phone] [place]: St: [facility] FAX: Eleonora Mai MD [phone] FAX:Denise Montejo MD Name: MINDY CARTER [facility] : 1955 Age/S: 67/M [address] [place] [address] Unit #:[id number] Loc: [place] [place] [address] Phys: Nathaniel Martel MD Acct: [id number] Dis Date: Status: ADM IN PHONE #: [phone] Exam Date: 06/11/20232104 FAX #: [phone] Reason: Cardiac Surgery Post Op EXAMS: CPT CODE: [id number] XR CHEST 1 V 86791 LOCATION: Q15 HISTORY: 67-year-old male, status post cardiac surgery, follow-up examination. COMMENT: A frontal chest radiograph was obtainedat the bedside at 8:53 p.m., and compared [...] level aortic arch and a right IJ Hastings-Chacorta catheter seen in the right main pulmonary artery. IMPRESSION: Satisfactory postoperative appearance of the chest. at 2129 Reported and signed by: Orlando Trimble M.D. CC: Nathaniel Martel MD; Eleonora Mai MD; Denise Montejo MD Technologist: RT Annie(R) Trnscrd Date/Time/By: 06/11/2023 (2129) : By: [email or web address] Orig Print D/T:S: 06/11/2023 (2132) PAGE 1 Signed ReportCBC W/AUTO [id number] 21:28:00* Test Item Value Reference Range Interpretation [...] 3/uL 0.0-0.1 N COMMENTS: On arrivalBASIC METABOLIC [id number] 21:13:00* Test Item Value Reference Range Interpretation [...] mg/dL 8.0-10.5 H COMMENTS: On arrivalComment: On [id number] 21:13:00* Test Item Value Reference Range Interpretation Comme nts MAGNESIUM (test code = MAG) 2.81 mg/dL 1.6-2.6 H COMMENTS: On arrivalComment: [facility] [id number] 21:03:00 * Test Item Value Reference Range Interpretation Comme nts POC ARTERIAL BLOOD GAS PH (t est code = POCPHA) 7.371 7.35-7.45 N POC ARTERIAL BLOOD GAS PCO2 (test code = KRGTIF0Y) 39.7 mmHg 35.0-45 N POC TCO2 ARTERIAL (test code = POCTCO2) 24.2 POC ARTERIAL BLOOD GAS PO2 ( test code = BJFXS7U) 70.5 mmHg 80-100.0 L POC HCO3 ARTERIAL (test code = BAIFNR3E) 23.0 MMOL/L 22.0-26.0 N POC BASE EXCESS (test code = POCBEA) -2.2 MMOL/L -4.0-4.0 N POC O2 SATURATION (test code = POCO2S) 93.5 % 90-100 N FIO2 (test code = FIO2A) 100 % PaO2/FiO2 (test code = MEF6LEQ5) 70.50 mm/Hg ABG DELIVERY (test code = DELVIN) + ABG VENT MODE (test code = MODEA) AC ABG VENT RESP RATE (test cod e = RRA) 20 /MIN ABG TIDAL VOLUME (test code = TVA) 450 ml ABG PEEP (test code = PEEPA) 8 cmH2O ABG SITE (test code = SITEA) Art Line MABEL'S TEST (test code = ALLENS) N/A BASIC METABOLIC [id number] 21:03:00* Test Item Value Reference Range Interpretation [...] = POCGLU) 301 MG/DL 70-110 H HEMOGLOBIN [id number] 21:03:00* Test Item Value Reference Range Interpretation Comme nts HEMOGLOBIN ABG (test code = HGB/ABG) 14.4 G/DL 12.5-16.9 N [id number] 21:03:00* Test Item Value Reference Range Interpretation Comme nts HEMATOCRIT (test code = HCT/ABG) 42 % 37.5-50.7 N POC LACTIC [id number] 21:03:00* Test Item Value Reference Range Interpretation Comme nts POC LACTIC ACID (test code = POCLAC) 2.3 mmol/l 0.9-1.7 H - XR CHEST 1 [id number] 20:28:00 [facility] : 1955 Sex: M FAX: Nathaniel Shirley MD [phone] [place]: St: ADM FAX: Eleonora Mai MD [phone] FAX:Denise Montejo MD Name: MINDY CARTER [facility] : 1955 Age/S: 67/M [address] [place] [address] Blvd Unit #: [id number] Loc: [place] [address] Phys: Nathaniel Martel MD Acct: [id number] Dis Date: Status: ADM IN PHONE #: [phone] Exam Date: 06/11/20231950 FAX #: [phone] Reason: MISSING 8-0 PROLENE EXAMS: CPT CODE: [id number] XR CHEST 1 V 79423 CLINICAL HISTORY: MISSING 8-0 PROLENE. LOCATION: A1 FINDINGS: Comparison is made with a previous study dated June 11, 2023. A portable AP view of the chest is dated 06/11/2023 at 1947 hours. There is stable mild cardiomegaly. There is an endotracheal tube in appropriate position with its tip 4.7 cm superior to the gregg. There is a left chesttube. Hastings-Chacorta catheter is in place. There is central vascular congestion and diffuse interstitialprominence with mild/moderate bibasilar atelectasis/infiltrates. No pleural effusions. Post sternotomy changes are noted. Surgical clip or staple is seen overlying the medial left upper quadrant of the abdomen which could be exterior to the patient. IMPRESSION: 1. There is central vascular congestion and diffuse interstitial prominence with mild/moderate bibasilar atelectasis/infiltrates. 2. Tubes and lines as described above. 3. No definite internal radiopaque foreign bodies are identified. The findings of this study were discussed with the OR nurse and anesthesiologist. at 2027 Reported and signed by: Irwin Aaron M.D. CC: Nathaniel Martel MD; Eleonora Mai MD; Denise Montejo MD Technologist: Rylee Muller, RT(R); Moncho Melvin RT(R) Trnscrd Date/Time/By: 06/11/2023 (2027) : By: [email or web address] Orig Print D/T: S: 06/11/2023 (2030) PAGE 1 Signed ReportPOC ARTERIAL BLOOD [id number] 20:02:00 * Test Item Value Reference Range Interpretation Comme nts POC ARTERIAL BLOOD GAS PH (t est code = POCPHA) 7.424 7.35-7.45 N POC ARTERIAL BLOOD GAS PCO2 (test code = QJCMLW9J) 32.5 mmHg 35.0-45 L POC TCO2 ARTERIAL (test code = POCTCO2) 22.3 POC ARTERIAL BLOOD GAS PO2 ( test code = BNHQH3B) 134.0 mmHg 80-100.0 H POC HCO3 ARTERIAL (test code = KWYKHV1W) 21.3 MMOL/L 22.0-26.0 L POC BASE EXCESS (test code = POCBEA) -2.6 MMOL/L -4.0-4.0 N POC O2 SATURATION (test code = POCO2S) 99.1 % 90-100 N BASIC METABOLIC [id number] 20:02:00* Test Item Value Reference Range Interpretation [...] = POCGLU) 250 MG/DL 70-110 H HEMOGLOBIN [id number] 20:02:00* Test Item Value Reference Range Interpretation Comme nts HEMOGLOBIN ABG (test code = HGB/ABG) 9.0 G/DL 12.5-16.9 L [id number] 20:02:00* Test Item Value Reference Range Interpretation Comme nts HEMATOCRIT (test code = HCT/ABG) 27 % 37.5-50.7 L POC LACTIC [id number] 20:02:00* Test Item Value Reference Range Interpretation Comme nts POC LACTIC ACID (test code = POCLAC) 2.1 mmol/l 0.9-1.7 H [id number] 20:00:00* Test Item Value Reference Range Interpretation Comme nts ACT-ISTAT (test code = ACTI) 141 SEC 74-137 H Performed by cer tified 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 at [facility] [id number] 19:22:00* Test Item Value Reference Range Interpretation Comme nts ACT-ISTAT (test code = ACTI) 590 SEC 74-137 H Performed by EGT 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 at [facility] POC ARTERIAL BLOOD [id number] 19:10:00* Test Item Value Reference Range Interpretation Comme nts POC ARTERIAL BLOOD GAS PH (t est code = POCPHA) 7.460 7.35-7.45 H POC ARTERIAL BLOOD GAS PCO2 (test code = DPKNJC3E) 38.2 mmHg 35.0-45 N POC TCO2 ARTERIAL (test code = POCTCO2) 28.4 POC ARTERIAL BLOOD GAS PO2 ( test code = PYCGS1Q) 235.3 mmHg 80-100.0 HH POC HCO3 ARTERIAL (test code = FPFGXV3H) 27.2 MMOL/L 22.0-26.0 H POC BASE EXCESS (test code = POCBEA) 3.2 MMOL/L -4.0-4.0 N POC O2 SATURATION (test code = POCO2S) 99.9 % 90-100 N BASIC METABOLIC [id number] 19:10:00* Test Item Value Reference Range Interpretation [...] = POCGLU) 202 MG/DL 70-110 H HEMOGLOBIN [id number] 19:10:00* Test Item Value Reference Range Interpretation Comme nts HEMOGLOBIN ABG (test code = HGB/ABG) 10.1 G/DL 12.5-16.9 L [id number] 19:10:00* Test Item Value Reference Range Interpretation Comme nts HEMATOCRIT (test code = HCT/ABG) 30 % 37.5-50.7 L POC LACTIC [id number] 19:10:00* Test Item Value Reference Range Interpretation Comme nts POC LACTIC ACID (test code = POCLAC) 1.0 mmol/l 0.9-1.7 N [id number] 18:56:00* Test Item Value Reference Range Interpretation Comme nts ACT-ISTAT (test code = ACTI) 650 SEC 74-137 H Performed by cer tified 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 at [facility] POC ARTERIAL BLOOD [id number] 18:48:00* Test Item Value Reference Range Interpretation Comme nts POC ARTERIAL BLOOD GAS PH (t est code = POCPHA) 7.428 7.35-7.45 N POC ARTERIAL BLOOD GAS PCO2 (test code = VDYYMT8N) 41.4 mmHg 35.0-45 N POC TCO2 ARTERIAL (test code = POCTCO2) 28.6 POC ARTERIAL BLOOD GAS PO2 ( test code = FEVQA4R) 431.5 mmHg 80-100.0 HH POC HCO3 ARTERIAL (test code = DADEEI3G) 27.4 MMOL/L 22.0-26.0 H POC BASE EXCESS (test code = POCBEA) 2.7 MMOL/L -4.0-4.0 N POC O2 SATURATION (test code = POCO2S) 100.0 % 90-100 N BASIC METABOLIC [id number] 18:48:00* Test Item Value Reference Range Interpretation [...] = POCGLU) 172 MG/DL 70-110 H HEMOGLOBIN [id number] 18:48:00* Test Item Value Reference Range Interpretation Comme nts HEMOGLOBIN ABG (test code = HGB/ABG) 10.1 G/DL 12.5-16.9 L [id number] 18:48:00* Test Item Value Reference Range Interpretation Comme nts HEMATOCRIT (test code = HCT/ABG) 30 % 37.5-50.7 L POC LACTIC [id number] 18:48:00* Test Item Value Reference Range Interpretation Comme nts POC LACTIC ACID (test code = POCLAC) < 0.3 mmol/l 0.9-1.7 L [id number] 18:37:00* Test Item Value Reference Range Interpretation Comme nts ACT-ISTAT (test code = ACTI) 574 SEC 74-137 H Performed by cer tified 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 at [facility] POC ARTERIAL BLOOD [id number] 18:20:00* Test Item Value Reference Range Interpretation Comme nts POC ARTERIAL BLOOD GAS PH (t est code = POCPHA) 7.404 7.35-7.45 N POC ARTERIAL BLOOD GAS PCO2 (test code = PGBXBR8Y) 34.4 mmHg 35.0-45 L POC TCO2 ARTERIAL (test code = POCTCO2) 22.6 POC ARTERIAL BLOOD GAS PO2 ( test code = VQHJZ2I) 156.7 mmHg 80-100.0 H POC HCO3 ARTERIAL (test code = CQBDQD5N) 21.5 MMOL/L 22.0-26.0 L POC BASE EXCESS (test code = POCBEA) -2.7 MMOL/L -4.0-4.0 N POC O2 SATURATION (test code = POCO2S) 99.4 % 90-100 N BASIC METABOLIC [id number] 18:20:00* Test Item Value Reference Range Interpretation [...] = POCGLU) 143 MG/DL 70-110 H HEMOGLOBIN [id number] 18:20:00* Test Item Value Reference Range Interpretation Comme nts HEMOGLOBIN ABG (test code = HGB/ABG) 10.4 G/DL 12.5-16.9 L [id number] 18:20:00* Test Item Value Reference Range Interpretation Comme nts HEMATOCRIT (test code = HCT/ABG) 30 % 37.5-50.7 L POC LACTIC [id number] 18:20:00* Test Item Value Reference Range Interpretation Comme nts POC LACTIC ACID (test code = POCLAC) 0.6 mmol/l 0.9-1.7 L [id number] 18:00:00* Test Item Value Reference Range Interpretation Comme nts ACT-ISTAT (test code = ACTI) 158 SEC 74-137 H Performed by cer tified 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 at [facility] [id number] 17:52:00* Test Item Value Reference Range Interpretation Comme nts HEMATOCRIT (test code = HCT/ABG) 30 % 37.5-50.7 L POC LACTIC [id number] 17:52:00* Test Item Value Reference Range Interpretation Comme nts POC LACTIC ACID (test code = POCLAC) 0.5 mmol/l 0.9-1.7 L POC ARTERIAL BLOOD [id number] 17:52:00* Test Item Value Reference Range Interpretation Comme nts POC ARTERIAL BLOOD GAS PH (t est code = POCPHA) 7.371 7.35-7.45 N POC ARTERIAL BLOOD GAS PCO2 (test code = RUPVGB9Q) 35.6 mmHg 35.0-45 N POC TCO2 ARTERIAL (test code = POCTCO2) 21.7 POC ARTERIAL BLOOD GAS PO2 ( test code = NSCSI5U) 126.6 mmHg 80-100.0 H POC HCO3 ARTERIAL (test code = GRRCAS1U) 20.6 MMOL/L 22.0-26.0 L POC BASE EXCESS (test code = POCBEA) -4.1 MMOL/L -4.0-4.0 L POC O2 SATURATION (test code = POCO2S) 98.8 % 90-100 N BASIC METABOLIC [id number] 17:52:00* Test Item Value Reference Range Interpretation [...] = POCGLU) 128 MG/DL 70-110 H HEMOGLOBIN [id number] 17:52:00* Test Item Value Reference Range Interpretation Comme nts HEMOGLOBIN ABG (test code = HGB/ABG) 10.0 G/DL 12.5-16.9 L GLUCOSE [id number] 15:36:00* Test Item Value Reference Range Interpretation Comme nts GLUCOSE BEDSIDE (test code = GLUBED) 180 MG/DL 70-110 H Performed by cer tified 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 at [facility] GLUCOSE [id number] 11:46:00* Test Item Value Reference Range Interpretation Comme nts GLUCOSE BEDSIDE (test code = GLUBED) 218 MG/DL 70-110 H Performed by cer tified 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 at [facility] THROMBOPLASTIN TIME [id number] 10:03:00* Test Item Value Reference Range Interpretation Comme nts THROMBOPLASTIN TIME PARTIAL (test code = PTT) 73.2 Seconds 25.0-39.5 H Therapeutic Rang e: 50.4 - 88.3 Seconds Effective 07/12/2018 - XR CHEST 1 [id number] 09:40:00 [facility] 1955 Sex: M FAX: Nathaniel Shirley MD [phone] [place]: St: ADM FAX: Eleonora Mai MD [phone] FAX:Denise Montejo MD Name: RAULMINDY [facility] : 1955 Age/S: 67/M [address] [place] [address] Blvd Unit #: [id number] Loc: G.[address] [place] [address] Phys: Nathaniel Martel MD Acct: [id number] Dis Date: Status: ADM IN PHONE #: [phone] Exam Date: 06/11/2023927 FAX #: [phone] Reason: Cardiac Sukhwinder ehsan Pre Op EXAMS: CPT CODE: [id number] XR CHEST 1 V 89363 EXAM: CHEST ONE VIEW INDICATION: CardiacSurgery Pre Op LOCATION: B2 COMPARISON: June 04, 2023 TECHNIQUE: AP view of the chest FINDINGS: Theheart size is enlarged. There are diffuse congestive changes bilaterally. No pneumothorax or pleural effusion is identified. The osseous structures are normal. IMPRESSION: Cardiomegaly with diffuse congestive changes bilaterally. [id number] Reported and signed by: Gabrielle Jean M.D. CC: Nathaniel Martel MD; Eleonora Mai MD; Denise Montejo MD Technologist: RT Justen(R) Trnscrd Date/Time/By: 06/11/2023 (7471) : By:[email or web address] Orig Print D/T: S: 06/11/2023 (1952) PAGE 1 Signed ReportGLUCOSE BEDSIDE 2023-06-11 08:01:00* Test Item Value Reference Range Interpretation Comme nts GLUCOSE BEDSIDE (test code = GLUBED) 223 MG/DL 70-110 H Performed by cer raul 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 at [facility] COMPREHENSIVE METABOLIC [id number] 05:32:00* Test Item Value Reference Range Interpretation [...] code = ALKP) 121 IUnit/L 20-125 N [id number] 05:32:00* Test Item Value Reference Range Interpretation Comme nts MAGNESIUM (test code = MAG) 1.84 mg/dL 1.6-2.6 N B-TYPE NATRIURETIC [id number] 05:22:00* Test Item Value Reference Range Interpretation Comme nts B-TYPE NATRIURETIC PEPTIDE ( test code = BNP) 224.0 PG/ML 0-100 H PROTHROMBIN [id number] 05:02:00* Test Item Value Reference Range Interpretation Comme [facility] PROTHROMBIN TIME PATIENT (test code = PTP) [...] Infarction (to prevent recurrent infarct). THROMBOPLASTIN TIME [id number] 05:02:00* Test Item Value Reference Range Interpretation Comme [facility] THROMBOPLASTIN TIME PARTIAL (test code = PTT) 52.9 Seconds 25.0-39.5 H Therapeutic Rang e: 50.4 - 88.3 Seconds Effective 07/12/2018 CBC W/AUTO [id number] 04:52:00* Test Item Value Reference Range Interpretation [...] NRBC#) 0.00 x10 3/uL 0.0-0.1 N GLUCOSE [id number] 20:24:00* Test Item Value Reference Range Interpretation Comme nts GLUCOSE BEDSIDE (test code = GLUBED) 259 MG/DL 70-110 H Performed by cer tified 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 at [facility] GLUCOSE [id number] 17:20:00* Test Item Value Reference Range Interpretation Comme nts GLUCOSE BEDSIDE (test code = GLUBED) 138 MG/DL 70-110 H Performed by [facility] [employer] 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 at [facility] COVID 19 Asymptomatic IH [id number] 17:07:00* Test Item Value Reference Range Interpretation [...] perform moderate, high or waivedcomplexity tests. GLUCOSE [id number] 11:50:00* Test Item Value Reference Range Interpretation Comme nts GLUCOSE BEDSIDE (test code = GLUBED) 310 MG/DL 70-110 H Performed by cer tified 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 at [facility] GLUCOSE [id number] 09:15:00* Test Item Value Reference Range Interpretation Comme nts GLUCOSE BEDSIDE (test code = GLUBED) 266 MG/DL 70-110 H Performed by cer [employer] 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 at [facility] GLUCOSE [id number] 08:45:00* Test Item Value Reference Range Interpretation Comme nts GLUCOSE BEDSIDE (test code = GLUBED) 231 MG/DL 70-110 H Performed by cer tified 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 at [facility] BASIC METABOLIC [id number] 05:23:00* Test Item Value Reference Range Interpretation [...] CA) 8.8 mg/dL 8.0-10.5 N HEPATIC FUNCTION [id number] 05:23:00* Test Item Value Reference Range Interpretation [...] (test cod e = BILIND) 0.40 MG/DL [id number] 05:23:00* Test Item Value Reference Range Interpretation Comme nts MAGNESIUM (test code = MAG) 1.72 mg/dL 1.6-2.6 N THROMBOPLASTIN TIME [id number] 05:02:00* Test Item Value Reference Range Interpretation Comme nts THROMBOPLASTIN TIME PARTIAL (test code = PTT) 59.1 Seconds 25.0-39.5 H Therapeutic Rang e: 50.4 - 88.3 Seconds Effective 07/12/2018 CBC W/AUTO [id number] 04:54:00* Test Item Value Reference Range Interpretation [...] NRBC#) 0.00 x10 3/uL 0.0-0.1 N GLUCOSE [id number] 20:26:00* Test Item Value Reference Range Interpretation Comme nts GLUCOSE BEDSIDE (test code = GLUBED) 239 MG/DL 70-110 H Performed by cer tified 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 at [facility] GLUCOSE [id number] 16:26:00* Test Item Value Reference Range Interpretation Comme nts GLUCOSE BEDSIDE (test code = GLUBED) 384 MG/DL 70-110 H Performed by cer tified 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 at [facility] GLUCOSE [id number] 12:47:00* Test Item Value Reference Range Interpretation Comme nts GLUCOSE BEDSIDE (test code = GLUBED) 317 MG/DL 70-110 H Performed by cer tified 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 at [facility] GLUCOSE [id number] 08:58:00* Test Item Value Reference Range Interpretation Comme nts GLUCOSE BEDSIDE (test code = GLUBED) 269 MG/DL 70-110 H Performed by cer tified 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 at [facility] BASIC METABOLIC [id number] 06:34:00* Test Item Value Reference Range Interpretation [...] code = CA) 9.0 mg/dL 8.0-10.5 N [id number] 06:34:00* Test Item Value Reference Range Interpretation Comme nts MAGNESIUM (test code = MAG) 1.76 mg/dL 1.6-2.6 N THROMBOPLASTIN TIME [id number] 06:09:00* Test Item Value Reference Range Interpretation Comme nts THROMBOPLASTIN TIME PARTIAL (test code = PTT) 62.5 Seconds 25.0-39.5 H Therapeutic Rang e: 50.4 - 88.3 Seconds Effective 07/12/2018 CBC W/AUTO [id number] 05:59:00* Test Item Value Reference Range Interpretation [...] NRBC#) 0.00 x10 3/uL 0.0-0.1 N GLUCOSE [id number] 22:41:00* Test Item Value Reference Range Interpretation Comme nts GLUCOSE BEDSIDE (test code = GLUBED) 326 MG/DL 70-110 H Performed by cer tified 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 at [facility] GLUCOSE [id number] 20:26:00* Test Item Value Reference Range Interpretation Comme nts GLUCOSE BEDSIDE (test code = GLUBED) 313 MG/DL 70-110 H Performed by cer tified 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 at [facility] GLUCOSE [id number] 16:27:00* Test Item Value Reference Range Interpretation Comme nts GLUCOSE BEDSIDE (test code = GLUBED) 343 MG/DL 70-110 H Performed by cer tified 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 at [facility] GLUCOSE [id number] 12:56:00* Test Item Value Reference Range Interpretation Comme nts GLUCOSE BEDSIDE (test code = GLUBED) 333 MG/DL 70-110 H Performed by cer tified 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 at [facility] GLUCOSE [id number] 07:54:00* Test Item Value Reference Range Interpretation Comme nts GLUCOSE BEDSIDE (test code = GLUBED) 245 MG/DL 70-110 H Performed by cer tified 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 at [facility] BASIC METABOLIC [id number] 06:03:00* Test Item Value Reference Range Interpretation [...] code = CA) 9.1 mg/dL 8.0-10.5 N [id number] 06:03:00* Test Item Value Reference Range Interpretation Comme nts MAGNESIUM (test code = MAG) 1.89 mg/dL 1.6-2.6 N CBC W/AUTO [id number] 05:31:00* Test Item Value Reference Range Interpretation [...] 0.00 x10 3/uL 0.0-0.1 N THROMBOPLASTIN TIME [id number] 05:26:00* Test Item Value Reference Range Interpretation Comme nts THROMBOPLASTIN TIME PARTIAL (test code = PTT) 61.5 Seconds 25.0-39.5 H Therapeutic Rang e: 50.4 - 88.3 Seconds Effective 07/12/2018 GLUCOSE [id number] 20:14:00* Test Item Value Reference Range Interpretation Comme nts GLUCOSE BEDSIDE (test code = GLUBED) 246 MG/DL 70-110 H Performed by cer tified 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 at [facility] GLUCOSE [id number] 16:51:00* Test Item Value Reference Range Interpretation Comme nts GLUCOSE BEDSIDE (test code = GLUBED) 280 MG/DL 70-110 H Performed by cer tified 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 at [facility] GLUCOSE [id number] 12:27:00* Test Item Value Reference Range Interpretation Comme nts GLUCOSE BEDSIDE (test code = GLUBED) 248 MG/DL 70-110 H Performed by cer tified 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 at [facility] GLUCOSE [id number] 08:02:00* Test Item Value Reference Range Interpretation Comme nts GLUCOSE BEDSIDE (test code = GLUBED) 229 MG/DL 70-110 H Performed by cer raul 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 at [facility] BASIC METABOLIC [id number] 04:25:00* Test Item Value Reference Range Interpretation [...] code = CA) 8.3 mg/dL 8.0-10.5 N [id number] 04:25:00* Test Item Value Reference Range Interpretation Comme nts MAGNESIUM (test code = MAG) 1.87 mg/dL 1.6-2.6 N THROMBOPLASTIN TIME [id number] 04:18:00* Test Item Value Reference Range Interpretation Comme nts THROMBOPLASTIN TIME PARTIAL (test code = PTT) 57.6 Seconds 25.0-39.5 H Therapeutic Rang e: 50.4 - 88.3 Seconds Effective 07/12/2018 CBC W/AUTO [id number] 03:51:00* Test Item Value Reference Range Interpretation [...] NRBC#) 0.00 x10 3/uL 0.0-0.1 N GLUCOSE [id number] 20:32:00* Test Item Value Reference Range Interpretation Comme nts GLUCOSE BEDSIDE (test code = GLUBED) 239 MG/DL 70-110 H Performed by cer tified 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 at [facility] GLUCOSE [id number] 16:25:00* Test Item Value Reference Range Interpretation Comme nts GLUCOSE BEDSIDE (test code = GLUBED) 217 MG/DL 70-110 H Performed by [facility] tifUplike 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 at [facility] GLUCOSE [id number] 13:03:00* Test Item Value Reference Range Interpretation Comme nts GLUCOSE BEDSIDE (test code = GLUBED) 284 MG/DL 70-110 H Performed by cer [employer]if[employer]ike 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 at [facility] HEPATITIS C RNA BY [id number] 10:08:00* Test Item Value Reference Range Interpretation Comme nts HEPATITIS C RNA BY PCR-QUAL (test code = HCVRNAPCR) HCV Not Detected IU/mL See_Comment No evidence of active HCV infection. [Automated message] The system which generated this result transmitted reference range: (). The reference range was not used to interpret this result as normal/abnormal. GLUCOSE [id number] 08:59:00* Test Item Value Reference Range Interpretation Comme nts GLUCOSE BEDSIDE (test code = GLUBED) 182 MG/DL 70-110 H Performed by cer [employer]ike 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 at [facility] BASIC METABOLIC [id number] 05:47:00* Test Item Value Reference Range Interpretation [...] code = CA) 8.3 mg/dL 8.0-10.5 N [id number] 05:47:00* Test Item Value Reference Range Interpretation Comme nts MAGNESIUM (test code = MAG) 1.86 mg/dL 1.6-2.6 N CBC W/AUTO [id number] 05:21:00* Test Item Value Reference Range Interpretation [...] 0.00 x10 3/uL 0.0-0.1 N THROMBOPLASTIN TIME [id number] 05:20:00* Test Item Value Reference Range Interpretation Comme [facility] THROMBOPLASTIN TIME PARTIAL (test code = PTT) 61.6 Seconds 25.0-39.5 H Therapeutic Rang e: 50.4 - 88.3 Seconds Effective 07/12/2018 THROMBOPLASTIN TIME [id number] 21:44:00* Test Item Value Reference Range Interpretation Comme nts THROMBOPLASTIN TIME PARTIAL (test code = PTT) 58.7 Seconds 25.0-39.5 H Therapeutic Rang e: 50.4 - 88.3 Seconds Effective 07/12/2018 GLUCOSE [id number] 20:44:00* Test Item Value Reference Range Interpretation Comme [facility] GLUCOSE BEDSIDE (test code = GLUBED) 242 MG/DL 70-110 H Performed by cer tified 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 at [facility] GLUCOSE [id number] 16:54:00* Test Item Value Reference Range Interpretation Comme nts GLUCOSE BEDSIDE (test code = GLUBED) 218 MG/DL 70-110 H Performed by [facility] tified 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 at [facility] - DUP EXTRACRANIAL [id number] 16:13:00 [facility] 1955 Sex: M Name: MINDY CARTER [facility] : 1955 Age/S: 67 / M [address] [place] [address] Blvd Unit #: [id number] Loc: [place] [address] Phys: Nathaniel Martel MD Acct: [id number] Dis Date: Status: ADMIN PHONE #: [phone] Exam Date: 06/05/20234 FAX #: [phone] Reason: Cardiac Surgery PreOp EXAMS: CPT CODE: [id number] DUP EXTRACRANIAL BETH 38632 EXAM: - DUP EXTRACRANIAL BETH LOCATION: H101 [...] 92 cm/sec RIGHT ECA - PSV: 102 cm/secRIGHT ICA/CCA Ratio: 1.4 LEFT CCA - PSV: 85 cm/sec LEFT ICA - PSV: 74 cm/sec LEFT ECA - PSV: 105 cm/sec LEFT ICA/CCA Ratio: 0.9 VERTEBRAL ARTERIES FLOW: RIGHT VERTEBRAL - Antegrade LEFT VERTEBRAL - An tegrade IMPRESSION: 1. No hemodynamically significant stenosis of the extracranial internal carotidarteries. at 1613 Reported and signed by: Windy Verduzco M.D. PAGE 1 Signed Report (CONTINUED) Name: MINDY CARTER [facility] :1955 Age/S: 67 / M [address] [place] [address] Blvd Unit #: [id number] Loc: [place] [address] Phys: Nathaniel Martel MD Acct: [id number] Dis Date: Status: ADM IN PHONE #: [phone] Exam Date: 06/05/2023 1314 FAX #: [phone] Reason: Cardiac Surgery Pre Op EXAMS: CPT CODE: [id number] DUP EXTRACRANIAL BETH 75699 (Continued) CC: Nathaniel Martel MD; Eleonora Mai MD; Denise Montejo MD Technologist: Luz Elena Farrell RDMS(AB)(OB) Trnscb Date/Time: 06/05/2023 (1613) t.SDR.TH15 Orig Print D/T: S: 06/05/2023 (1616) Probe: PAGE 2 Signed Report THROMBOPLASTIN TIME [id number] 14:56:00* Test Item Value Reference Range Interpretation Comme nts THROMBOPLASTIN TIME PARTIAL (test code = PTT) 70.9 Seconds 25.0-39.5 H Therapeutic Rang e: 50.4 - 88.3 Seconds Effective 07/12/2018 - DUP VEIN [id number] 14:08:00 [facility] : 1955 Sex: M Name: [facility] 1955 Age/S: 67 / M [address] [place] [address] Unit #: [id number] Loc: [place] [address] Phys: Nathaniel Martel MD Acct: [id number] Dis Date: Status: ADM IN PHONE #: [phone] Exam Date: 06/05/20231313 FAX #: [phone] Reason: Cardiac Surgery Pre Op EXAMS: CPT CODE: [id number] DUP VEIN BETH 27152 EXAMINATION: - DUP VEIN BETH CLINICAL INDICATION: [...] appreciated. IMPRESSION: 1. No evidence of venous thrombu s. Vessel diameters outlined above. at 1408 Reported and signed by: Vadim Coelho M.D. PAGE 1 Signed Report (CONTINUED) Name: MINDY CARTER [facility] Declan Lao : 1955 Age/S: 67 / M [address] [place] [address] Unit #: [id number] Loc: [place] [address] Phys: Nathaniel Martel MD Acct: [id number] Dis Date: Status: ADM IN PHONE #: [phone] Exam Date: 06/05/20231313 FAX #: [phone] Reason: Cardiac Surgery Pre Op EXAMS: CPT CODE: [id number] DUP VEIN BETH 71479 (Continued) CC: Nathaniel Martel MD; Eleonora Mai MD;Denise Montejo MD Technologist: Luz Elena Farrell RDMS(AB)(OB) Trnscb Date/Time: 06/05/2023 (1408) avery GIRONJH12 Orig Print D/T: S: 06/05/2023 (4951) Probe: PAGE 2 Signed Report GLUCOSE [id number] 12:02:00* Test Item Value Reference Range Interpretation Comme nts GLUCOSE BEDSIDE (test code = GLUBED) 240 MG/DL 70-110 H Performed by cer tified 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 at [facility] B-TYPE NATRIURETIC [id number] 06:09:00* Test Item Value Reference Range Interpretation Comme nts B-TYPE NATRIURETIC PEPTIDE ( test code = BNP) 311.0 PG/ML 0-100 H UA RFLX MICR CULT IF [id number] 05:45:00* Test Item Value Reference Range Interpretation [...] Pain RiskForSepsis-no oth srcSpecimen Description: CLEAN CATCHPROTHROMBIN [id number] 05:44:00* Test Item Value Reference Range Interpretation [...] Infarction (to prevent recurrent infarct). THROMBOPLASTIN TIME [id number] 05:44:00* Test Item Value Reference Range Interpretation Comme nts THROMBOPLASTIN TIME PARTIAL (test code = PTT) 76.7 Seconds 25.0-39.5 H Therapeutic Rang e: 50.4 - 88.3 Seconds Effective 07/12/2018 COMPREHENSIVE METABOLIC [id number] 05:41:00* Test Item Value Reference Range Interpretation [...] = LDL) 72.0 mg/dL 0-100 N <100 EQHBOUE89 0-129 NEAR OPTIMAL/ABOVE [id number] DSVACOCMYO807-760 HIGH>SA=225 VERY HIGH*Guidelines provided by the National Cholesterol EducationProgram Adult Treatment Panel III CBC W/AUTO [id number] 05:22:00* Test Item Value Reference Range Interpretation [...] while on heparin drip- XR CHEST 1 [id number] 22:49:00 [facility] : 1955 Sex: M FAX: Nathaniel Shirley MD [phone] [place]: St: ADM FAX: Eleonora Mai MD [phone] FAX:Denise Montejo MD Name: MINDY CARTER [facility] : 1955 Age/S: 67/M [address] [place] [address] Unit #: [id number] Loc: G.[address] [place] [address] Phys: Nathaniel Martel MD Acct: [id number] Dis Date: Status: ADM IN PHONE #: [phone] Exam Date: 06/04/2023 1756 FAX #: [phone] Reason: Cardiac Surgery Pre Op EXAMS: CPT CODE: [id number] XR CHEST 1 V 88168 HISTORY: Cardiac surgery. Location code: B2 FINDINGS: Frontal view of the chest demonstrates minimally enlarged cardiomediastinal silhouette. The trachea is midline. Mild left basilar atelectasis. The lungs are otherwise clear. There is no effusion or pneumothorax. The bones are intact. IMPRESSION: Mild left basilar atelectasis at 5281 Reported and signed by: Erick Hogan M.D. CC: Nathaniel Martel MD; Eleonora Mai MD; Denise Montejo MD Technologist: RT Maryse(Penelope) Trnscrd Date/Time/By: 06/04/2023 (2248) : By: [email or web address] [facility] Print D/T: S: 06/04/2023 (5986) PAGE 1 Signed Report- CT CHEST W/O [id number] 21:49:00 [facility] : 1955 Sex: M Name: MINDY CARTER [facility] [place] : 1955 Age/S: 67 / M [address] [place] [address] Unit #: [id number] Loc: [place] [address] Phys: Nathaniel Martel MD Acct: [id number] Dis Date: Status: ADMIN PHONE #: [phone] Exam Date: 06/04/2023 1638 FAX #: [phone] Reason: Cardiac Surgery PreOp EXAMS: CPT CODE: [id number] CT CHEST W/O CONTRAST 79850 EXAMINATION: - CT CHEST W/O CONTRAST CLIN ICAL INDICATION: Male, 67 years old with Cardiac Surgery Pre Op TECHNIQUE: Axial non-contrast contiguous images were obtained through the chest followed by coronal and sagittal multiplanar reformations. One or more of the following dose reduction techniques were used: Automated exposure control, adjustment of the mA and/or kV according to patient size, and/or iterative reconstruction. COMPARISON: None FINDINGS: Chest: Medical Devices: None. Lymph Nodes: Right paratracheal 9 mm lymph node is present. Lungs/Airways/Pleura: Trachea and main bronchi are patent. Patchy areas of groundglass attenuation are present bilaterally, with basilar atelectasis. Findings may represent viral pneumonitis. No pneumothorax is identified. Left major fissure 5.6 mm perifissural lymph node identified. Superiorsegment of the left lower lobe is remarkable for an ovoid 6.9 mm noncalcified pulmonary nodule. There is a faint area of nodularity involving the right lower lobe measuring 4.6 mm. Per Fleischner Society Guidelines, recommend a non-contrast Chest CT at 3-6 months, then consider another non-contrastChest CT at 18-24 months. If patient is [...] 1 Signed Report (CONTINUED) Name: MINDY CARTER [facility] [place] : 1955 Age/S: 67 / M [address] [place] [address] Unit #: [id number] Loc: [place] [address] Phys: Nathaniel Martel MD Acct: [id number] Dis Date: Status: ADM IN PHONE #: [phone] Exam Date: 06/04/2023 1638 FAX #: [phone] Reason: Cardiac Surgery Pre Op EXAMS: CPT CODE: [id number] CT CHEST W/O CONTRAST 03387 (Continued) Upper Abdomen: Abdomen: Cirrhotic change of the liver is identified. Heterogeneous density noted. Cholelithiasis. Bones: No acute abnormality or suspicious bony lesion. IMPRESSION: 1. Patchy areasof groundglass attenuation bilaterally suggest pneumonitis, possibly viral. 2. Left lower lobe nodularity is present, follow-up noncontrast chest CT in 3-6 months recommended. Additional recommendations above. at 2148 Reported and signed by: Vadim Coelho M.D. CC: Nathaniel Martel MD; Eleonora Mai MD; Denise Montejo MD Technologist:Jm Alexander Jr, RT(R)(CT) CTDI: DLP: Trnscb Date/Time: 06/04/2023 (2148) t.JAHR.JH12 Orig Print D/T: S: 06/04/2023 (1323) PAGE 2 Signed ReportGLUCOSE [id number] 19:20:00* Test Item Value Reference Range Interpretation Comme nts GLUCOSE BEDSIDE (test code = GLUBED) 284 MG/DL 70-110 H Performed by cer tified 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 at [facility] GLUCOSE [id number] 17:02:00* Test Item Value Reference Range Interpretation Comme nts GLUCOSE BEDSIDE (test code = GLUBED) 236 MG/DL 70-110 H Performed by cer tified 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 at [facility] GLUCOSE [id number] 12:21:00* Test Item Value Reference Range Interpretation Comme nts GLUCOSE BEDSIDE (test code = GLUBED) 301 MG/DL 70-110 H Performed by [facility] tified 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 at [facility] THROMBOPLASTIN TIME [id number] 10:12:00* Test Item Value Reference Range Interpretation Comme nts THROMBOPLASTIN TIME PARTIAL (test code = PTT) 74.9 Seconds 25.0-39.5 H Therapeutic Rang e: 50.4 - 88.3 Seconds Effective 07/12/2018 COMMENTS: COMPARE PTT TO PTS HEPRINE PARAMETERS. KEEP PTT WITHIN GOAL:55-75 GLUCOSE [id number] 07:29:00* Test Item Value Reference Range Interpretation Comme nts GLUCOSE BEDSIDE (test code = GLUBED) 188 MG/DL 70-110 H Performed by cer tified 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 at [facility] COMPREHENSIVE METABOLIC [id number] 04:27:00* Test Item Value Reference Range Interpretation [...] code = ALKP) 144 IUnit/L 20-125 H [id number] 04:27:00* Test Item Value Reference Range Interpretation Comme nts MAGNESIUM (test code = MAG) 1.82 mg/dL 1.6-2.6 N CBC W/AUTO [id number] 04:03:00* Test Item Value Reference Range Interpretation [...] N COMMENTS: Daily while on heparin dripGLUCOSE [id number] 19:09:00* Test Item Value Reference Range Interpretation Comme nts GLUCOSE BEDSIDE (test code = GLUBED) 272 MG/DL 70-110 H Performed by EGT 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 at [facility] GLUCOSE [id number] 17:43:00* Test Item Value Reference Range Interpretation Comme nts GLUCOSE BEDSIDE (test code = GLUBED) 239 MG/DL 70-110 H Performed by EGT 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 at [facility] GLUCOSE [id number] 12:25:00* Test Item Value Reference Range Interpretation Comme nts GLUCOSE BEDSIDE (test code = GLUBED) 290 MG/DL 70-110 H Performed by EGT 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 at [facility] THROMBOPLASTIN TIME [id number] 10:22:00* Test Item Value Reference Range Interpretation Comme nts THROMBOPLASTIN TIME PARTIAL (test code = PTT) 69.0 Seconds 25.0-39.5 H Therapeutic Rang e: 50.4 - 88.3 Seconds Effective 07/12/2018 GLUCOSE [id number] 07:54:00* Test Item Value Reference Range Interpretation Comme nts GLUCOSE BEDSIDE (test code = GLUBED) 190 MG/DL 70-110 H Performed by EGT 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 at [facility] ACUTE HEPATITIS [id number] 07:02:00* Test Item Value Reference Range Interpretation [...] test is recommended if clinicallyindicated. COMPREHENSIVE METABOLIC [id number] 05:51:00* Test Item Value Reference Range Interpretation [...] ALKP) 141 IUnit/L 20-125 H CBC W/AUTO [id number] 05:35:00* Test Item Value Reference Range Interpretation [...] N COMMENTS: Daily while on heparin dripPROTHROMBIN [id number] 05:31:00* Test Item Value Reference Range Interpretation [...] Infarction (to prevent recurrent infarct). THROMBOPLASTIN TIME [id number] 04:28:00* Test Item Value Reference Range Interpretation Comme nts THROMBOPLASTIN TIME PARTIAL (test code = PTT) 63.5 Seconds 25.0-39.5 H Therapeutic Rang e: 50.4 - 88.3 Seconds Effective 07/12/2018 GLUCOSE [id number] 02:54:00* Test Item Value Reference Range Interpretation Comme [facility] GLUCOSE BEDSIDE (test code = GLUBED) 296 MG/DL 70-110 H Performed by cer tified 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 at [facility] THROMBOPLASTIN TIME [id number] 22:20:00* Test Item Value Reference Range Interpretation Comme [facility] THROMBOPLASTIN TIME PARTIAL (test code = PTT) 52.6 Seconds 25.0-39.5 H Therapeutic Rang e: 50.4 - 88.3 Seconds Effective 07/12/2018 THROMBOPLASTIN TIME [id number] 17:02:00* Test Item Value Reference Range Interpretation Comme [facility] THROMBOPLASTIN TIME PARTIAL (test code = PTT) 79.1 Seconds 25.0-39.5 H Therapeutic Rang e: 50.4 - 88.3 Seconds Effective 07/12/2018 GLUCOSE [id number] 16:16:00* Test Item Value Reference Range Interpretation Comme [facility] GLUCOSE BEDSIDE (test code = GLUBED) 167 MG/DL 70-110 H Performed by linda carter 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 at [facility] - US ABDOMEN [id number] 15:58:00 [facility] 1955 Sex: M Name: MINDY CARTER [facility] : 1955 Age/S: 67 / M [address] [place] [address] Unit #: [id number] Loc: [place] [address] Phys: Nathaniel Martel MD Acct: [id number] Dis Date: Status: ADMIN PHONE #: [phone] Exam Date: 06/02/2023 1443 FAX #: [phone] Reason: cirrhosis EXAMS: CPT CODE: [id number] US ABDOMEN COMPLETE 00676 Dictation location: C4. COMPLETE ABDOMINAL ULTRASOUND HI STORY: cirrhosis FINDINGS: The proximal aorta and IVC [...] No definite ascites. Cholelithiasis. No pericholecystic fluid. Thegallbladder roberto appear thickened and and may be secondary to the chronic liver disease. Cholecystitis cannot be excluded. at 1558 Reported and signed by: Elio Pimentel M.D. CC: Nathaniel Martel MD; Eleonora Mai MDTechnologist: Kirsty Banegas RDMS(AB) Trnscb Date/Time: 06/02/2023 (1558) t.SDR.SP17 Orig Print D/T: S: 06/02/2023 (1605) Probe: PAGE 1 Signed ReportGLUCOSE [id number] 11:31:00* Test Item Value Reference Range Interpretation Comme nts GLUCOSE BEDSIDE (test code = GLUBED) 252 MG/DL 70-110 H Performed by linda carter 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 at [facility] HEPATIC FUNCTION [id number] 10:58:00* Test Item Value Reference Range Interpretation [...] ALKP) 128 IUnit/L 20-125 H THROMBOPLASTIN TIME [id number] 10:48:00* Test Item Value Reference Range Interpretation Comme nts THROMBOPLASTIN TIME PARTIAL (test code = PTT) 71.3 Seconds 25.0-39.5 H Therapeutic Rang e: 50.4 - 88.3 Seconds Effective 07/12/2018 GLUCOSE [id number] 07:49:00* Test Item Value Reference Range Interpretation Comme nts GLUCOSE BEDSIDE (test code = GLUBED) 222 MG/DL 70-110 H Performed by cer tified 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 at [facility] CBC W/AUTO [id number] 06:05:00* Test Item Value Reference Range Interpretation [...] COMMENTS: Daily while on heparin dripBASIC METABOLIC [id number] 05:50:00* Test Item Value Reference Range Interpretation [...] CA) 8.8 mg/dL 8.0-10.5 N THROMBOPLASTIN TIME [id number] 03:42:00* Test Item Value Reference Range Interpretation Comme nts THROMBOPLASTIN TIME PARTIAL (test code = PTT) 48.0 Seconds 25.0-39.5 H Therapeutic Rang e: 50.4 - 88.3 Seconds Effective 07/12/2018 GLUCOSE [id number] 19:59:00* Test Item Value Reference Range Interpretation Comme nts GLUCOSE BEDSIDE (test code = GLUBED) 113 MG/DL 70-110 H Performed by EGT 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 at [facility] GLUCOSE [id number] 11:32:00* Test Item Value Reference Range Interpretation Comme nts GLUCOSE BEDSIDE (test code = GLUBED) 160 MG/DL 70-110 H Performed by EGT 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 at [facility] GLUCOSE [id number] 08:19:00* Test Item Value Reference Range Interpretation Comme nts GLUCOSE BEDSIDE (test code = GLUBED) 181 MG/DL 70-110 H Performed by EGT 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 at [facility] [id number] 07:44:00* Test Item Value Reference Range Interpretation Comme nts HGBA1C% (test code = HGBA1C%) 8.4 %A1C 4.8-6.0 H BASIC METABOLIC [id number] 07:08:00* Test Item Value Reference Range Interpretation [...] be done morning of Heart CathTROP-I HIGH [id number] 07:08:00* Test Item Value Reference Range Interpretation [...] URL. These results were obtained using Siemens AtellBig River IM TnIHreagent. Results from different methodologies should not becompared to one another as quantitative results and URLs mayvary by method. COMMENTS: To be done morning of Heart CathTHROMBOPLASTIN TIME [id number] 06:57:00* Test Item Value Reference Range Interpretation Comme nts THROMBOPLASTIN TIME PARTIAL (test code = PTT) 61.5 Seconds 25.0-39.5 H Therapeutic Rang e: 50.4 - 88.3 Seconds Effective 07/12/2018 CBC W/AUTO [id number] 06:50:00* Test Item Value Reference Range Interpretation [...] morning of Heart CathDRUGS OF ABUSE SCREEN [id number] 01:12:00* Test Item Value Reference Range Interpretation [...] be used for non-medical purposes. THROMBOPLASTIN TIME [id number] 00:21:00* Test Item Value Reference Range Interpretation Comme nts THROMBOPLASTIN TIME PARTIAL (test code = PTT) 51.6 Seconds 25.0-39.5 H Therapeutic Rang e: 50.4 - 88.3 Seconds Effective 07/12/2018 TROP-I HIGH [id number] 22:28:00* Test Item Value Reference Range Interpretation [...] URL. These results were obtained using Siemens AtellBig River IM TnIHreagent. Results from different methodologies should not becompared to one another as quantitative results and URLs mayvary by method. GLUCOSE [id number] 22:13:00* Test Item Value Reference Range Interpretation Comme [facility] GLUCOSE BEDSIDE (test code = GLUBED) 164 MG/DL 70-110 H Performed by cer raul 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 at [facility] TROP-I HIGH [id number] 16:26:00* Test Item Value Reference Range Interpretation Comme [facility] TROP-I HIGH SENSITIVITY (test code = TROPIHS) [...] URL. These results were obtained using Siemens AtellBig River IM TnIHreagent. Results from different methodologies should not becompared to one another as quantitative results and URLs mayvary by method. PROTHROMBIN [id number] 16:22:00* Test Item Value Reference Range Interpretation Comme [facility] PROTHROMBIN TIME PATIENT (test code = PTP) [...] prior to initiation of heparinComment: infusionTHROMBOPLASTIN TIME [id number] 16:22:00* Test Item Value Reference Range Interpretation Comme nts THROMBOPLASTIN TIME PARTIAL (test code = PTT) 35.8 Seconds 25.0-39.5 N Therapeutic Rang e: 50.4 - 88.3 Seconds Effective 07/12/2018 COMMENTS: STAT if not done within 24 hours prior to initiation of heparinComment: infusionCBC W/AUTO [id number] 16:09:00* Test Item Value Reference Range Interpretation [...] to initiation of heparin Comment: infusionTHYROID STIMULATING [id number] 13:07:00* Test Item Value Reference Range Interpretation [...] = LDL) 81.0 mg/dL 0-100 N <100 TVZVVEB43 0-129 NEAR OPTIMAL/ABOVE [id number] XCXKAVFBTC118-261 HIGH>TV=794 VERY HIGH*Guidelines provided by the National Cholesterol EducationProgram Adult Treatment Panel III LIPOPROTEIN [id number] 12:42:00* Test Item Value Reference Range Interpretation Comme nts LIPOPROTEIN LDL (test code = LDL) 81.0 mg/dL 0-100 N <100 GTAURKW80 0-129 NEAR OPTIMAL/ABOVE [id number] [id number] HIGH>GG=114 VERY HIGH*Guidelines provided by the National Cholesterol EducationProgram Adult Treatment Panel III B-TYPE NATRIURETIC [id number] 12:18:00* Test Item Value Reference Range Interpretation Comme nts B-TYPE NATRIURETIC PEPTIDE ( test code = BNP) 771.0 PG/ML 0-100 H - XR CHEST 1 [id number] 12:17:00 [facility] : 1955 Sex: M FAX: Mendel Walker MD [phone] [place]: St: ADM Name: MINDY CARTER [facility] : 1955 Age/S: 67/M [address] [place] [address] Blvd Unit #: [id number] Loc: [place] [address] Phys: Mendel Walker MD Acct: [id number] Dis Date: Status: ADM IN PHONE #: [phone] Exam Date: 05/31/2023 1145 FAX#: [phone] Reason: SOB EXAMS: CPT CODE: [id number] XR CHEST 1 V 73030 EXAM: CHEST ONE VIEW INDICATION: Shortness of breath LOCATION: B2 COMPARISON: None available TECHNIQUE: AP view of the chestFINDINGS: The heart size is enlarged. There are diffuse congestive changes bilaterally. No pneumothorax or pleural effusion is identified. The osseous structures are normal. IMPRESSION: Cardiomegaly with diffuse congestive changes bilaterally. Electronically Signed by Kavya Jean on05/31/2023 at 1217 Reported and signed by: Gabrielle Jean M.D. CC: Mendel Walker MD Technologist: RT Arnulfo(R) Trnscrd Date/Time/By: 05/31/2023 (1217) : By: [email or web address] [facility] Print D/T: S: 05/31/2023 (8434) PAGE 1 Signed ReportBASIC METABOLIC [id number] 12:14:00* Test Item Value Reference Range Interpretation [...] code = CA) 8.7 mg/dL 8.0-10.5 N [id number] 12:14:00* Test Item Value Reference Range Interpretation Comme nts MAGNESIUM (test code = MAG) 1.89 mg/dL 1.6-2.6 N TROP-I HIGH [id number] 12:14:00* Test Item Value Reference Range Interpretation Comme nts TROP-I HIGH SENSITIVITY (test code = TROPIHS) 1181 ng/L 0-54 HH Critical result called to AMY TAYLOR RNby [id number] at 1212 05/31/23Nurse read back result and [...] URL. These results were obtained using Siemens Zebra Mobile IM TnIHreagent. Results from different methodologies should not becompared to one another as quantitative results and URLs mayvary by method. CBC W/AUTO [id number] 11:55:00* Test Item Value Reference Range Interpretation [...] x10 3/uL 0.0-0.1 N POC ARTERIAL BLOOD [id number] 11:43:00* Test Item Value Reference Range Interpretation Comme nts POC ARTERIAL BLOOD GAS PH (t est code = POCPHA) 7.519 7.35-7.45 HH POC ARTERIAL BLOOD GAS PCO2 (test code = XBDJZV7B) 33.4 mmHg 35.0-45 L POC TCO2 ARTERIAL (test code = POCTCO2) 28.2 POC ARTERIAL BLOOD GAS PO2 ( test code = LSXZU4X) 56.3 mmHg 80-100.0 L POC HCO3 ARTERIAL (test code = PDIHSZ3R) 27.2 MMOL/L 22.0-26.0 H POC BASE EXCESS (test code = POCBEA) 4.3 MMOL/L -4.0-4.0 H POC O2 SATURATION (test code = POCO2S) 92.0 % 90-100 N ABG DELIVERY (test code = DELVIN) 4L ABG SITE (test code = SITEA) L Radial MABEL'S TEST (test code = ALLENS) Positive CBC (DIFF/PLT)2023-05-12 11:49:00* Test Item Value Reference Range Interpretation Comme nts WHITE BLOOD CELL COUNT (test code = 34875341) 7.9 Thousand/uL 3.8-10.8 N RED BLOOD CELL COUNT (test code = 70147277) 5.28 Million/uL 4.20-5.80 N HEMOGLOBIN (test code = 26966053) 15.5 g/dL 13.2-17.1 N HEMATOCRIT (test code = 85977291) 48.4 % 38.5-50.0 N MCV (test code = 74825372) 91.7 fL 80.0-100.0 N MCH (test code = 42878612) 29.4 pg 27.0-33.0 N MCHC (test code = 60473748) 32.0 g/dL 32.0-36.0 N RDW (test code = 51021872) 13.1 % 11.0-15.0 N PLATELET COUNT (test code = 12813919) 156 Thousand/uL 140-400 N MPV (test code = 91756248) 12.4 fL 7.5-12.5 N ABSOLUTE NEUTROPHILS (test code = 44020282) 6241 cells/uL 9392-0020 N ABSOLUTE LYMPHOCYTES (test code = 60551816) 656 cells/uL 850-3900 L ABSOLUTE MONOCYTES (test cod e = 53056572) 766 cells/uL 200-950 N ABSOLUTE EOSINOPHILS (test code = 60218237) 174 cells/uL 15-500 N ABSOLUTE BASOPHILS (test cod e = 83213861) 63 cells/uL 0-200 N NEUTROPHILS (test code = 17669274) 79 % N LYMPHOCYTES (test code = 25580155) 8.3 % N MONOCYTES (test code = 52663659) 9.7 % N EOSINOPHILS (test code = 02361434) 2.2 % N BASOPHILS (test code = 86452007) 0.8 % N FASTING:[facility]ITALHCV [facility], QN [id number] 11:49:00* Test Item Value Reference Range Interpretation Comme nts HCV RNA, QUANTITATIVE REAL TIME PCR (test code = 47819343) <15 NOT DETECTED IU/mL NOT DETECTED N HCV RNA, QUANTITATIVE REAL TIME PCR (test code = 69012556) <1.18 NOT DETECTED Log IU/mL NOT DETECTED N This test was performed using Real-Time Polymerase ChainReaction. Reportable Range: 15 IU/mL to 100,000,000 IU/mL(1.18 Log IU/mL to 8.00 Log IU/mL). The analytical performance characteristics of thisassay have been determined by [employer]. The modifications have not been cleared or approved bythe FDA. This assay has been validated pursuant to the CLIA regulations and is used for clinical purposes. For more information on this test, go to:http://education.TuCreaz.com Application/f aq/PYX03e5(This link is being provided for informational/educati onal purposes only.) FASTING:[facility]ENTERHEPATITIS [id number] 11:49:00* Test Item Value Reference Range Interpretation Comme nts HEPATITIS A AB, TOTAL (test code = 24899969) REACTIVE NON-REACTIVE A HEPATITIS B SURFACE ANTIBODY QL (test code = 69345530) NON-REACTIVE NON-REACTIVE N HEPATITIS B SURFACE ANTIGEN (test code = 12280418) NON-REACTIVE NON-REACTIVE N HEPATITIS B CORE AB TOTAL (test code = 67057844) NON-REACTIVE NON-REACTIVE N HEPATITIS C ANTIBODY (test code = 07744282) REACTIVE NON-REACTIVE A Based on this re sult, the sample will be testedfor HCV RNA by a Nucleic Acid Amplification Test (NAAT)to determine if the patient has a current activeinfection. For additional information, please refer to http://[employer]America.Moleculin/faq/FA Q202 (This link is being provided for informational/educatio nal purposes only.) For additional information, please refer to http://[employer].Moleculin/faq/FA Q202 (This link is being provided for informational/educatio nal purposes only.) For additional information, please refer to http://[employer]/faq/FA Q202 (This link is being provided for informational/educatio nal purposes only.) FASTING:[facility] CENTERLIPID [id number] 11:49:00* Test Item Value Reference Range Interpretation Comme nts CHOLESTEROL, TOTAL (test code = 49853528) 167 mg/dL <200 N HDL CHOLESTEROL (test code = 16917293) 49 mg/dL >=40 N TRIGLYCERIDES (test code = 57651465) 161 mg/dL <150 H LDL-CHOLESTEROL (test code = 96132322) 92 mg/dL (calc) N Reference range: <100 Desirable range <100 mg/dL for primary prevention; <70 mg/dL for patients with CHD or diabetic patients with > or = 2 CHD risk factors. LDL-C is now calculated using the Tia calculation, which is a validated novel method providing better accuracy than the Friedewald equation in the estimation of LDL-C. Otis SS et al. HARDY. 2013;310(19): 1570-2786 (http://education.[employer]te.inBOLD [employer] Solutions /faq/ZTX073) CHOL/HDLC RATIO (test code = 42951824) 3.4 (calc) <5.0 N NON HDL CHOLESTEROL (test code = 23687485) 118 mg/dL (calc) <130 N For patients with diabetes plus 1 major ASCVD risk factor, treating to a non-HDL-C goal of <100 mg/dL (LDL-C of <70 mg/dL) is considered a therapeutic option. FASTING:[facility] [id number] 11:49:00* Test Item Value Reference Range Interpretation Comme nts GLUCOSE (test code = 05811842) 167 mg/dL 65-99 H Fasting referenc e interval For someone without known diabetes, a glucosevalue >125 mg/dL indicates that they may havediabetes and this should be confirmed with afollow-up test. UREA NITROGEN (BUN) (test code = 33223369) 33 mg/dL 7-25 H CREATININE (test code = 58032661) 1.14 mg/dL 0.70-1.35 N EGFR (test code = 53622652) 70 mL/min/1.73m2 >=60 N BUN/CREATININE RATIO (test code = 68518510) 29 (calc) 6-22 H SODIUM (test code = 80462776) 140 mmol/L 135-146 N POTASSIUM (test code = 50490876) 4.5 mmol/L 3.5-5.3 N CHLORIDE (test code = 82835997) 101 mmol/L 98-110 N CARBON DIOXIDE (test code = 49148196) 30 mmol/L 20-32 N CALCIUM (test code = 33271894) 9.4 mg/dL 8.6-10.3 N PROTEIN, TOTAL (test code = 25653519) 7.6 g/dL 6.1-8.1 N ALBUMIN (test code = 68133523) 4.4 g/dL 3.6-5.1 N GLOBULIN (test code = 86737969) 3.2 g/dL (calc) 1.9-3.7 N ALBUMIN/GLOBULIN RATIO (test code = 06573199) 1.4 (calc) 1.0-2.5 N BILIRUBIN, TOTAL (test code = 00185191) 0.6 mg/dL 0.2-1.2 N ALKALINE PHOSPHATASE (test code = 06916874) 123 U/L 35-144 N AST (test code = 68241401) 23 U/L 10-35 N ALT (test code = 86355531) 23 U/L 9-46 N FASTING:[facility] CENTERHEMOGLOBIN [id number] 11:49:00* Test Item Value Reference Range Interpretation Comme nts HEMOGLOBIN A1c (test code = 18966495) TNP/1665 N TEST NOT PERFOR MED Unable to perform the requested add-on test(s). The sample is no longer available. FASTING:[facility] MED[facility] CENTERLipid 1995 panel - Serum or Plasma 2023-05-12 00:00:00* Test Item Value Reference Range Interpretation Comme nts Cholesterol [Mass/volume] in Serum or Plasma (test code = 2093-3) 167 mg/dL <200 Cholesterol in HDL [Mass/volume] in Serum or Plasma (test code = 2085-9) 49 mg/dL See_Comment [Automated [employer]] The system which generated this result transmitted reference range: > or = 40. The reference range was not used to interpret this result as normal/abnormal. Triglyceride [Mass/volume] in Serum or Plasma (test code = 2571-8) 161 mg/dL <150 H Cholesterol in LDL [Mass/volume] in Serum or Plasma by calculation (test code = 51478-6) 92 mg/dL (calc) Cholesterol.total/Cho lesterol in HDL [Mass Ratio] in Serum or Plasma (test code = 9830-1) 3.4 (calc) <5.0 Cholesterol non HDL [Mass/volume] in Serum or Plasma (test code = 29547-1) 118 mg/dL (calc) <130 [facility] - [id number] 00:00:00 * Test Item Value Reference Range Interpretation Comme nts Hepatitis A virus Ab [Presen ce] in Serum by Immunoassay (test code = 76999-9) reactive non-reactive A Hepatitis B virus surface Ab [Presence] in Serum by Immunoassay (test code = 93439-8) non-reactive non-reactive Hepatitis B virus surface Ag [Presence] in Serum or Plasma by Immunoassay (test code = 5196-1) non-reactive non-reactive Hepatitis B virus core Ab [Presence] in Serum or Plasma by Immunoassay (test code = 32713-4) non-reactive non-reactive Hepatitis C virus Ab [Presen ce] in Serum or Plasma by Immunoassay (test code = 16247-5) reactive non-reactive [facility] - Serum or [id number] 00:00:00* Test Item Value Reference Range Interpretation [...] Creatinine-based formula (CKD-EPI 2020) (test code = 73063-4) 70 mL/min/1.73m 2 See_Comment [Automated message] The [...] in Serum or Plasma (test code = 75686-1) 9.4 mg/dL 8.6-10.3 Protein [Mass/volume] in Serum or Plasma (test code = 2885-2) 7.6 g/dL 6.1-8.1 Albumin [Mass/volume] in Serum or Plasma (test code = 1751-7) 4.4 g/dL 3.6-5.1 Globulin [Mass/volume] in Serum by calculation (test code = 98736-1) 3.2 g/dL (calc) 1.9-3.7 Albumin/Globulin [Mass Ratio] in Serum or Plasma (test code = 1759-0) 1.4 (calc) 1.0-2.5 Bilirubin.total [Mass/volume] in Serum or Plasma (test code = 1974-2) 0.6 mg/dL 0.2-1.2 Alkaline phosphatase [Enzymatic activity/volume] in Serum or Plasma (test code = 6768-6) 123 U/L 35-144 Aspartate aminotransferase [Enzymatic activity/volume] in Serum or Plasma (test code = 1920-8) 23 U/L 10-35 Alanine aminotransferase [Enzymatic activity/volume] in Serum or Plasma (test code = 1742-6) 23 U/L 9-46 [facility] Auto Differential panel - [id number] 00:00:00* Test Item Value Reference Range Interpretation [...] count (test code = 751-8) 6241 cells/uL 8277-1138 Lymphocytes [#/volume] in Blood by Automated count [...] count (test code = 706-2) 0.8 % [facility] [Units/volume] (viral load) in Serum or Plasma by NHAN with probe [id number] 00:00:00* Test Item Value Reference Range Interpretation Comme nts Hepatitis C virus RNA [Units/volume] (viral load) in Serum or Plasma by NHAN with probe detection (test code = 07846-1) <15 not detected not detected Hepatitis C virus RNA [log units/volume] (viral load) in Serum or Plasma by NHAN with probe detection (test code = 11111-8) <1.18 not detected not detected [facility]Hemoglobin.total in Blood 2023-05-12 00:00:00* Test Item Value Reference Range Interpretation Comme nts Hemoglobin A1c/Hemoglobin.to marques in Blood (test code = 4548-4) tnp [facility] 1996 panel - Serum or [id number] 00:00:00* Test Item Value Reference Range Interpretation Comme nts Cholesterol [Mass/volume] in Serum or Plasma (test code = 2093-3) 177 mg/dL <200 Cholesterol in HDL [Mass/volume] in Serum or Plasma (test code = 2085-9) 43 mg/dL See_Comment [Automated [employer]] The system which generated this result transmitted reference range: > or = 40. The reference range was not used to interpret this result as normal/abnormal. Triglyceride [Mass/volume] in Serum or Plasma (test code = 2571-8) 205 mg/dL <150 H Cholesterol in LDL [Mass/volume] in Serum or Plasma by calculation (test code = 10380-7) 102 mg/dL (calc) H Cholesterol.total/Cho lesterol.in HDL [Mass ratio] in Serum or Plasma (test code = 9830-1) 4.1 (calc) <5.0 Cholesterol non HDL [Mass/volume] in Serum or Plasma (test code = 84605-7) 134 mg/dL (calc) <130 H [facility]Creatinine [Mass Ratio] in Urine 2023-01-30 00:00:00* Test Item Value Reference Range Interpretation Comme nts Creatinine [Mass/volume] in Urine (test code = 2161-8) 98 mg/dL 20-320 Microalbumin [Mass/volume] i n Urine (test code = 22249-9) 9.4 mg/dL see note: Albumin/Creatinine [Mass ratio] in Urine (test code = 9318-7) 96 mcg/mg creat <30 H [facility] 2000 panel - Serum or [id number] 00:00:00* Test Item Value Reference Range Interpretation [...] Creatinine-based formula (CKD-EPI 2020) (test code = 16655-4) 56 mL/min/1.73m 2 See_Comment L [Automated message] [...] in Serum or Plasma (test code = 26846-1) 9.8 mg/dL 8.6-10.3 Protein [Mass/volume] in Serum or Plasma (test code = 2885-2) 7.7 g/dL 6.1-8.1 Albumin [Mass/volume] in Serum or Plasma (test code = 1751-7) 4.6 g/dL 3.6-5.1 Globulin [Mass/volume] in Serum by calculation (test code = 49562-9) 3.1 g/dL (calc) 1.9-3.7 Albumin/Globulin [Mass Ratio] in Serum or Plasma (test code = 1759-0) 1.5 (calc) 1.0-2.5 Bilirubin.total [Mass/volume] in Serum or Plasma (test code = 1974-) 0.6 mg/dL 0.2-1.2 Alkaline phosphatase [Enzymatic activity/volume] in Serum or Plasma (test code = 6768-6) 84 U/L 35-144 Aspartate aminotransferase [Enzymatic activity/volume] in Serum or Plasma (test code = 192-8) 18 U/L 10-35 Alanine aminotransferase [Enzymatic activity/volume] in Serum or Plasma (test code = 174-6) 17 U/L 9-46 [facility] W Auto Differential panel - [id number] 00:00:00* Test Item Value Reference Range Interpretation [...] by Automated count (test code = 751-8) 71097 cells/uL 6114-1005 H Lymphocytes [#/volume] in Blood by Automated [...] count (test code = 706-2) 0.6 % [facility] A[facility]c/Hemoglobin.total in Blood 2023-01-30 00:00:00* Test Item Value Reference Range Interpretation Comme nts Hemoglobin A1c/Hemoglobin.total in Blood (test code = 4548-4) 7.6 % of total HGB <5.7 H [facility] Notes Date/Time Note Provider Source 2023-06-30 21:46:00 [facility] Hospitalist Progress Note REPORT#:[id number] REPORT STATUS: Signed REPORT INITIALIZATION DATE:06/30/23 TIME: 2145 PATIENT: MINDY CARTER UNIT #: [id number] ROOM/BED: [place] [address] : 54 AGE: 67 SEX: M ATTEND: [...] Extremities: 3+ PRETIBIAL EDEMA Musculoskeletal: normal inspection Neuro/INK MAKER: alert, oriented X 3, normal speech, no [...] a living will or medical power of corporate attorney Patient is a full code 06/01 [...] IS BACKDATING FOR VISIT ON 06/18/23. at 7158 RPT #:[id number] END OF REPORT [facility] 2023-06-22 23:08:00 [phone] [address] PATIENT NAME: MINDY CARTER ADMIT DATE: 05/31/23 ACCOUNT NO: [id number] [place]OM NO: [facility] [place] AGE: 67 REPORT TYPE: eECHOCARDIOGRAM REPORT SEX: M ADMITTING PHYSICIAN:Talat Lord MD ATTENDING PHYSICIAN:Bladimir Morse DO *[address] [address] Limited Transthoracic Echocardiogram Patient: Mindy Carter Study Date: 06/22/2023 BP: 127 / 69 URN: [id number] Location: : 1955 Age: 67 Gender: M Height: 69 in / 175.3 cm Weight: 249.1 lb / 113 kg BMI/BSA: 36.8 kg/m 2 / 2.39 m 2 *Ordering Physician: * Jeremiah Martel MD *Interpreting Physician: * Clayton Nathan MD *Recycling Center Operator: * Mily Renee Indications: R/O Pericardial Effusion. [...] 23:08 at 2308 PATIENT NAME: MINDY CARTER [facility] 2023-06-22 14:03:00 [facility] ([facility]) Hospitalist Discharge Summary REPORT#:[id number] REPORT STATUS: Signed REPORT INITIALIZATION DATE:06/22/23 TIME: 1402 PATIENT: MINDY CARTER UNIT #: [id number] ROOM/BED: [place] [address] : 53 AGE: 67 SEX: M ATTEND: [...] as needed, long acting insulin as per [facility] Hypertension Renew medications once they have been updated in the computer Now on pressors for hypotension DEBILITY - REHAB SEEN, MAY NEED IRF Patient does not have a living will or medical power of corporate attorney Patient is a full code 06/01 [...] Extremities: 3+ PRETIBIAL EDEMA Musculoskeletal: normal inspection Neuro/INK MAKER: alert, oriented X 3, normal speech, no motor deficits, no sensory deficits Skin: dry, intact, no rash Psychiatry: normal affect Discharge Instructions PCP PCP follow-up: PCP: No Primary or Family Physician Follow-up labs,proc, tx: FOLLOW UP AT [facility] FOR FURTHER THERAPY Discharge to: Home/Self Care Additional Discharge Routines: PCP Follow-Up, Network Security Officer Follow-Up, Fluid Restrictions, Weight Monitoring, F/U Labs/Procedures [...] 1-2 weeks Consulting provider 2: Provider 2: Clayton Nathan MD Specialty: CardiologyInterventional Follow up timeframe: In 1-2 weeks Consulting provider 3: Provider 3: Rigoberto Jarrell MD Specialty: Gastroenterology Follow up timeframe: In 1-2 weeks Consulting provider 4: Provider 4: Nkechi Bacon MD Specialty: Nephrology Follow up timeframe: In 1-2 weeks Quality: Discharge Advanced Care Plan 65 or Older Discussed with: patient Discussion included: living will, power of corporate attorney, code status Current Medications Current medication review: I attest that the foregoing medication list in the medical record is true, accurate, and complete to the best of my knowledge. at 1551 RPT #:[id number] END OF REPORT [facility] 2023-06-22 10:44:00 [facility] Gastroenterology Progress Note REPORT#:[id number] REPORT STATUS: Signed REPORT INITIALIZATION DATE:06/22/23 TIME: 104 PATIENT: MINDY CARTER UNIT #: [id number] ROOM/BED: [place] [address] : 54 AGE: 67 SEX: M ATTEND: [...] Documented: Result Date Time Pulse Ox 96 06/21 08 FiO2 21 06/21 0824 O2 Delivery Room air 06/21 0824 B/P 127/69 06/21 0711 B/P Mean 88.3 06/21 0711 Temp 36.7 06/21 0711 Pulse 75 06/21 0711 Resp [...] Glargine (Semglee) 40 UNIT BEDTIME SUBQ Ipratropium Eagle (ATROVENT) 500 MCG RTQ2H PRN PRN INH [...] guarding Extremities: moves all Musculoskeletal: normal inspection Neuro/INK MAKER: alert, normal speech Skin: dry, intact, normal [...] (Auto) (14.0 - 32.0 %) 5.3 L [place] % (Auto) (4.8 - 9.0 %) 12.5 H Eos % (Auto) (0.3 - 3.7 %) 2.1 Baso % (Auto) (0.0 - 2.0 %) 0.7 Neut # (Auto) (2.0 - 7.6 x10 3/uL) 6.74 Lymph # (Auto) (1.0 - 3.8 x10 3/uL) 0.46 L [place] # (Auto) (0.1 - 0.8 x10 3/uL) [...] similar or slightly improved. Impression By: Mert - Dickson Petersen M.D. Results: labs reviewed, vital signs [...] plan as documented by RAHUL Tobias. at 1428 at 6147 RPT #:[id number] END OF REPORT [facility] 2023-06-22 08:24:00 [facility] ([facility]) Cardiothoracic Surgery Prog REPORT#:[id number] REPORT STATUS: Signed REPORT INITIALIZATION DATE:06/22/23 TIME: 823 PATIENT: MINDY CARTER UNIT #: [id number] ROOM/BED: [facility] [place] : 54 AGE: 67 SEX: M ATTEND: [...] 06/21 0711 O2 Delivery Room air 06/21 07 Temp 98.1 06/21 0711 Pulse 75 06/21 [...] patient Discussion included: living will, power of corporate attorney, code status Current Medications Current medication [...] diagnosed. Patient does not live local to [place]. Will consult gastroenterology to see patient. -EtOH cessation 3. Chronic kidney disease -Patient does not live local to [place]. Will consult nephrology to see patient. Patient [...] disease Patient was seen and examined at [facility]. Plan of care discussed with multidisciplinary [...] CRRT. Patient was seen and examined at [facility]. Plan of care discussed with multidisciplinary [...] cardiovascular surgery at 1510 at 1018 RPT #:[id number] END OF REPORT [facility] 2023-06-21 16:07:00 [facility] ([facility] Nephrology Progress Note REPORT#:[id number] REPORT STATUS: Signed REPORT INITIALIZATION DATE:06/21/23 TIME: 1606 PATIENT: MINDY CARTER UNIT #: [id number] ROOM/BED: [place] [address] : 54 AGE: 67 SEX: M ATTEND: Bladimir Morse DO ADM AUTHOR: Nkechi Bacon MD REPT SERVICE DT/TIME: 06/21/23 160 * ALL edits or amendments must be [...] Consultants: cardiology, cardiovascular surgery at 1630 RPT #:[id number] END OF REPORT [facility] 2023-06-21 15:26:00 [facility] Rehab Progress Note REPORT#:[id number] REPORT STATUS: Signed REPORT INITIALIZATION DATE:06/21/23 TIME: 1525 PATIENT: MINDY CARTER UNIT #: [id number] ROOM/BED: 3359-1 : 53 AGE: 67 SEX: [...] Glargine (Semglee) 40 UNIT BEDTIME SUBQ Ipratropium Eagle (ATROVENT) 500 MCG RTQ2H PRN PRN INH [...] - Bilat Effects of Treatment: Balance Improved Maybeury of care decreased Cardio tolerance improved Function Improved Tolerance increased Post Treatment Precautions: In Bed, Rails Up Family at Bedside Call Light in Reach Nursing Notified O2 On Pulse OX in Place Telephone in Reach Review Plan of Care: Yes PT charges: Gait Training [id number] Gait Cmt: Pt cleared by RN and [...] Care: Yes Document OT charges: FT/THERAP. ACTIVITY [id number] If this is the patient's last treatment, [...] normal, range of motion normal, no atrophy Neuro/INK MAKER: alert, oriented X 3, normal speech, no [...] (Auto) (14.0 - 32.0 %) 7.3 L [place] % (Auto) (4.8 - 9.0 %) 11.6 H Eos % (Auto) (0.3 - 3.7 %) 2.8 Baso % (Auto) (0.0 - 2.0 %) 0.6 Neut # (Auto) (2.0 - 7.6 x10 3/uL) 7.03 Lymph # (Auto) (1.0 - 3.8 x10 3/uL) 0.68 L [place] # (Auto) (0.1 - 0.8 x10 3/uL) [...] Impression By: [email or web address] - Elio Pimentel M.D. Diagnosis, Assessment Plan Problem List/A [...] plan discussed with patient. at 1529 RPT #:[id number] END OF REPORT [facility] 2023-06-21 13:08:00 [facility] Cardiothoracic Surgery Prog REPORT#:[id number] REPORT STATUS: Signed REPORT INITIALIZATION DATE:06/21/23 TIME: 1308 PATIENT: MINDY CARTER UNIT #: [id number] ROOM/BED: [place] [address] : 54 AGE: 67 SEX: M ATTEND: [...] patient Discussion included: living will, power of corporate attorney, code status Current Medications Current medication [...] diagnosed. Patient does not live local to [place]. Will consult gastroenterology to see patient. -EtOH cessation 3. Chronic kidney disease -Patient does not live local to [place]. Will consult nephrology to see patient. Patient [...] disease Patient was seen and examined at [facility]. Plan of care discussed with multidisciplinary [...] CRRT. Patient was seen and examined at [facility]. Plan of care discussed with multidisciplinary [...] cardiovascular surgery at 0823 at 1017 RPT #:[id number] END OF REPORT [facility] 2023-06-21 11:46:00 [facility] Gastroenterology Progress Note REPORT#:[id number] REPORT STATUS: Signed REPORT INITIALIZATION DATE:06/21/23 TIME: 1146 PATIENT: MINDY CARTER UNIT #: [id number] ROOM/BED: [place] [address] : 54 AGE: 67 SEX: M ATTEND: [...] Glargine (Semglee) 40 UNIT BEDTIME SUBQ Ipratropium Eagle (ATROVENT) 500 MCG RTQ2H PRN PRN INH [...] guarding Extremities: moves all Musculoskeletal: normal inspection Neuro/INK MAKER: alert, normal speech Skin: dry, intact, normal [...] (Auto) (14.0 - 32.0 %) 7.3 L [place] % (Auto) (4.8 - 9.0 %) 11.6 H Eos % (Auto) (0.3 - 3.7 %) 2.8 Baso % (Auto) (0.0 - 2.0 %) 0.6 Neut # (Auto) (2.0 - 7.6 x10 3/uL) 7.03 Lymph # (Auto) (1.0 - 3.8 x10 3/uL) 0.68 L [place] # (Auto) (0.1 - 0.8 x10 3/uL) [...] documented by RAHUL Tobias. at 1421 at 0746 [facility] #:[id number] END OF REPORT [facility] 2023-06-21 06:54:00 [id number] [address] PATIENT NAME: MINDY CARTER ADMIT DATE: 05/31/23 ACCOUNT NO: [id number] ROOM NO: [facility] [place] [place] AGE: 67 REPORT TYPE: eECHOCARDIOGRAM REPORT SEX: M ADMITTING PHYSICIAN:Talat Lord MD ATTENDING PHYSICIAN:Kumar Garcia MD *[address] [address] Limited Transthoracic Echocardiogram Patient: Mindy Carter Study Date: 06/20/2023 BP: 153 / 65 URN: [id number] Location: : 1955 Age: 67 Gender: M Height: 69 in / 175.3 cm Weight: 248 lb / 112.5 kg BMI/BSA: 36.6 kg/m 2 / 2.38 m 2 *Ordering Physician: * Jeremiah Martel MD *Interpreting Physician: * Clayton Nathan MD *Recycling Center Operator: * Leslie Heredia Indications: SP PACER WIRES REMOVAL. Study data: Transthoracic echocardiogram, limited study. Procedure: A transthoracic echocardiogram was performed. Images were obtained using a Xenith cardiac ultrasound machine. Image quality was fair. [...] 06:54 at 0654 PATIENT NAME: MINDY CARTER [facility] 2023-06-20 17:22:00 [facility] Hospitalist Progress Note REPORT#:[id number] REPORT STATUS: Signed REPORT INITIALIZATION DATE:06/20/23 TIME: 1721 PATIENT: MINDY CARTER UNIT #: [id number] [address]BED: [address] : 54 AGE: 67 SEX: M ATTEND: Kumar Garcia MD ADM AUTHOR: Kumar Garica MD REPT SERVICE DT/TIME: 06/20/23 1722 * [...] Extremities: 3+ PRETIBIAL EDEMA Musculoskeletal: normal inspection Neuro/INK MAKER: alert, oriented X 3, normal speech, no [...] (Auto) (14.0 - 32.0 %) 6.2 L [place] % (Auto) (4.8 - 9.0 %) 10.6 H Eos % (Auto) (0.3 - 3.7 %) 2.0 Baso % (Auto) (0.0 - 2.0 %) 0.4 Neut # (Auto) (2.0 - 7.6 x10 3/uL) 8.83 H Lymph # (Auto) (1.0 - 3.8 x10 3/uL) 0.70 L [place] # (Auto) (0.1 - 0.8 x10 3/uL) [...] as needed, long acting insulin as per [facility] Hypertension Renew medications once they have been updated in the computer Now on pressors for hypotension DEBILITY - REHAB SEEN, MAY NEED IRF Patient does not have a living will or medical power of corporate attorney Patient is a full code 06/01 [...] patient Discussion included: living will, power of corporate attorney, code status at 1724 RPT #:[id number] END OF REPORT [facility] 2023-06-20 15:01:00 [facility] Nephrology Progress Note REPORT#:[id number] REPORT STATUS: Signed REPORT INITIALIZATION DATE:06/20/23 TIME: 1501 PATIENT: MINDY CARTER UNIT #: [id number] ROOM/BED: [place] [address] : 54 AGE: 67 SEX: M ATTEND: [...] Consultants: cardiology, cardiovascular surgery at 1607 RPT #:[id number] END OF REPORT [facility] 2023-06-20 11:48:00 [facility]) Cardiothoracic Surgery Prog REPORT#:[id number] REPORT STATUS: Signed REPORT INITIALIZATION DATE:06/20/23 TIME: 114 PATIENT: MINDY CARTER UNIT #: [id number] [address] : [birth year] AGE: 67 SEX: M [...] Glargine (Semglee) 40 UNIT BEDTIME SUBQ Ipratropium Eagle (ATROVENT) 500 MCG RTQ2H PRN PRN INH [...] MG DAILY PO Results Findings/Data: Laboratory Tests 06/196 1716 1217 Chemistry Sodium (134 - 147 [...] (Auto) (14.0 - 32.0 %) 6.2 L [place] % (Auto) (4.8 - 9.0 %) 10.6 H Eos % (Auto) (0.3 - 3.7 %) 2.0 Baso % (Auto) (0.0 - 2.0 %) 0.4 Neut # (Auto) (2.0 - 7.6 x10 3/uL) 8.83 H Lymph # (Auto) (1.0 - 3.8 x10 3/uL) 0.70 L [place] # (Auto) (0.1 - 0.8 x10 3/uL) [...] on coronal bases. LOCATION: C3 Impression By: LandyKWAdrien - Jessenia Mireles M.D. Results: labs reviewed, vital signs stable, rythm personally rev'd, current med profile rev'd Quality: Trauma Gen Surg Advanced Care Plan 65 or Older Discussed with: patient Discussion included: living will, power of corporate attorney, code status Current Medications Current medication [...] diagnosed. Patient does not live local to [place]. Will consult gastroenterology to see patient. -EtOH cessation 3. Chronic kidney disease -Patient does not live local to [place]. Will consult nephrology to see patient. Patient [...] disease Patient was seen and examined at [facility]. Plan of care discussed with multidisciplinary [...] CRRT. Patient was seen and examined at [facility]. Plan of care discussed with multidisciplinary [...] Consultants: cardiology, cardiovascular surgery at 1017 RPT #:[id number] END OF REPORT [facility] 2023-06-20 10:03:00 [facility] ([facility] Cardiology Progress Note REPORT#:[id number] REPORT STATUS: Signed REPORT INITIALIZATION DATE:06/20/23 TIME: 1003 PATIENT: MINDY CARTER UNIT #: [id number] ROOM/BED: [place] [address] : 54 AGE: 67 SEX: M ATTEND: Kumar Garcia MD ADM AUTHOR: Clayton Nathan MD REPT SERVICE DT/TIME: 06/20/23 1003 [...] the next 24 hours. at 1256 RPT #:[id number] END OF REPORT [facility] 2023-06-19 18:08:00 [facility] ([facility]) Hospitalist Progress Note REPORT#:[id number] REPORT STATUS: Signed REPORT INITIALIZATION DATE:06/19/23 TIME: 1807 PATIENT: MINDY CARTER UNIT #: [id number] ROOM/BED: 3359-1 : 54 AGE: 67 SEX: M ATTEND: Kumar Garcia MD ADM AUTHOR: Kumar Garcia MD REPT SERVICE DT/TIME: 06/19/23 180 * ALL edits or amendments must be [...] 1900 Intake Total 450 Output Total 650 01287 Balance -650 -9550 Intake, Oral 450 Number 0 Bowel Movements Output, Urine 650 79612 PATIENT WEIGHT: Weight (lb): 249 Weight (oz): 12.54 Weight (kg): 113.300 Physical Exam General appearance: alert, awake, oriented Head/Eyes: WEARING EYEGLASSES SHAVED HEAD ENT: moist mucosal membranes Neck: normal thyroid, no JVD Cardiovascular: normal heart sounds, regular rate rhythm, no gallop, no murmur , no rub Respiratory: hypoxia, on oxygen Abdomen: non-tender, normal bowel sounds, soft Extremities: 3+ PRETIBIAL EDEMA Musculoskeletal: normal inspection Neuro/INK MAKER: alert, oriented X 3, CNII-XII intact Skin: dry, intact, no rash Psychiatry: normal affect Results Findings/Data: Laboratory Tests 06/18 06/18 06/18 06/18 06/17 1716 1217 0735 0439 1910 Chemistry Sodium (134 [...] a living will or medical power of corporate attorney Patient is a full code 06/01 [...] patient Discussion included: living will, power of corporate attorney, code status at 1810 RPT #:[id number] END OF REPORT [facility] 2023-06-19 17:09:00 [facility]) Cardiothoracic Surgery Prog REPORT#:[id number] REPORT STATUS: Signed REPORT INITIALIZATION DATE:06/19/23 TIME: 1709 PATIENT: MINDY CARTER UNIT #: [id number] ROOM/BED: [place] [address] : 54 AGE: 67 SEX: M ATTEND: Kumar Garcia MD ADM AUTHOR: Nathaniel Martel MD REPT SERVICE DT/TIME: 06/19/231708 * ALL edits or amendments must be [...] 1900 Intake Total 450 Output Total 650 39707 Balance -650 -9550 Intake, Oral 450 Number 0 Bowel Movements Output, Urine 650 10715 PATIENT WEIGHT: Weight (lb): 249 Weight (oz): [...] Glargine (Semglee) 40 UNIT BEDTIME SUBQ Ipratropium Eagle (ATROVENT) 500 MCG RTQ2H PRN PRN INH [...] Tests 06/18 06/18 06/18 06/17 1217 0735 8674 1910 Chemistry Sodium (134 - 147 mEq/L) [...] - 2.6 mg/dL) 2.44 Laboratory Tests 06/18 8242 Hematology WBC (4.5 - 11.0 x10 3/uL) [...] patient Discussion included: living will, power of corporate attorney, code status Current Medications Current medication [...] diagnosed. Patient does not live local to [place]. Will consult gastroenterology to see patient. -EtOH cessation 3. Chronic kidney disease -Patient does not live local to [place]. Will consult nephrology to see patient. Patient [...] disease Patient was seen and examined at [facility]. Plan of care discussed with multidisciplinary [...] CRRT. Patient was seen and examined at [facility]. Plan of care discussed with multidisciplinary [...] Consultants: cardiology, cardiovascular surgery at 0851 RPT #:[id number] END OF REPORT [facility] 2023-06-19 14:48:00 [facility] Cardiology Progress Note REPORT#:[id number] REPORT STATUS: Signed REPORT INITIALIZATION DATE:06/19/23 TIME: 1447 PATIENT: MINDY CARTER UNIT #: [id number] ROOM/BED: [place] [address] : 54 AGE: 67 SEX: M ATTEND: [...] the next 24 hours. at 1449 RPT #:[id number] END OF REPORT [facility] 2023-06-19 11:50:00 [facility] Nephrology Progress Note REPORT#:[id number] REPORT STATUS: Signed REPORT INITIALIZATION DATE:06/19/23 TIME: 115 PATIENT: MINDY CARTER UNIT #: [id number] ROOM/BED: [place] [address] : 54 AGE: 67 SEX: M ATTEND: [...] Flow FiO2 Mean Ox Delivery Rate 06/18 1933 36.8 78 14 156/72 0.0 92 Room [...] 1900 Intake Total 450 Output Total 650 44872 Balance -650 -9550 Intake, Oral 450 Number 0 Bowel Movements Output, Urine 650 80436 PATIENT WEIGHT: Weight (lb): 249 Weight (oz): [...] Consultants: cardiology, cardiovascular surgery at 2354 RPT #:[id number] END OF REPORT [facility] 2023-06-18 18:26:00 [facility] ([facility]) Nephrology Progress Note REPORT#:[id number] REPORT STATUS: Signed REPORT INITIALIZATION DATE:06/18/23 TIME: 1825 PATIENT: MINDY CARTER UNIT #: [id number] ROOM/BED: [place] [address] : 53 AGE: 67 SEX: M ATTEND: [...] 1900 Intake Total 450 Output Total 650 93721 Balance -650 -9550 Intake, Oral 450 Number 0 Bowel Movements Output, Urine 650 68885 PATIENT WEIGHT: Weight (lb): 249 Weight (oz): [...] Consultants: cardiology, cardiovascular surgery at 1150 RPT #:[id number] END OF REPORT [facility] 2023-06-18 11:27:00 [facility] ([facility] Gastroenterology Progress Note REPORT#:[id number] REPORT STATUS: Signed REPORT INITIALIZATION DATE:06/18/23 TIME: 1126 PATIENT: MINDY CARTER UNIT #: [id number] ROOM/BED: [place] [address] : 54 AGE: 67 SEX: M ATTEND: Talat Lord MD ADM AUTHOR: Farideh Harris REPT SERVICE DT/TIME: 06/18/231126 * ALL edits or amendments must be made on the electronic/computer document * Farideh Harris 06/18/23 1127: Subjective Patient reports: Yes: bowel movement, passing [...] Temp 36.7 06/17 110 Pulse 68 06/17 1102 Resp 18 06/17 1102 FiO2 96 06/17 0901 O2 Delivery Nasal cannula 06/17 0901 O2 Flow Rate 3 06/17 0901 24 [...] Glargine (Semglee) 40 UNIT BEDTIME SUBQ Ipratropium Eagle (ATROVENT) 500 MCG RTQ2H PRN PRN INH [...] guarding Extremities: moves all Musculoskeletal: normal inspection Neuro/INK MAKER: alert, normal speech Skin: dry, intact, normal [...] (Auto) (14.0 - 32.0 %) 5.7 L [place] % (Auto) (4.8 - 9.0 %) 13.6 H Eos % (Auto) (0.3 - 3.7 %) 2.4 Baso % (Auto) (0.0 - 2.0 %) 0.5 Neut # (Auto) (2.0 - 7.6 x10 3/uL) 6.93 Lymph # (Auto) (1.0 - 3.8 x10 3/uL) 0.54 L [place] # (Auto) (0.1 - 0.8 x10 3/uL) [...] Impressions: ULTRASOUND - DUP VEIN BETH 06/16 3084 Report Impression - Status: SIGNED Entered: 06/17/2023 6023 IMPRESSION: 1. No evidence of deep venous thrombosis. Impression By: [email or web address] Frandy Hogan M.D. Results: labs reviewed, vital signs reviewed [...] RAHUL Tobias. at 1433 at 2232 RPT #:[id number] END OF REPORT [facility] 2023-06-18 10:19:00 [facility] Rehab Progress Note REPORT#:[id number] REPORT STATUS: Signed REPORT INITIALIZATION DATE:06/18/23 TIME: 1019 PATIENT: MINDY CARTER UNIT #: [id number] ROOM/BED: [address] : [birth year] AGE: 67 SEX: M [...] Glargine (Semglee) 40 UNIT BEDTIME SUBQ Ipratropium Eagle (ATROVENT) 500 MCG RTQ2H PRN PRN INH [...] - Bilat Effects of Treatment: Balance Improved Maybeury of care decreased Cardio tolerance improved Function Improved Tolerance increased Post Treatment Precautions: In Chair Family at Bedside Call Light in Reach Nursing Notified O2 On Pulse OX in Place SCD in Place Telephone in Reach Review Plan of Care: Yes PT charges: Gait Training [id number] Gait Cmt: PATIENT SITTING IN RECLINER CHAIR [...] (Auto) (14.0 - 32.0 %) 5.7 L [place] % (Auto) (4.8 - 9.0 %) 13.6 H Eos % (Auto) (0.3 - 3.7 %) 2.4 Baso % (Auto) (0.0 - 2.0 %) 0.5 Neut # (Auto) (2.0 - 7.6 x10 3/uL) 6.93 Lymph # (Auto) (1.0 - 3.8 x10 3/uL) 0.54 L [place] # (Auto) (0.1 - 0.8 x10 3/uL) [...] evidence of deep venous thrombosis. Impression By: LandyRKDusty Hogan M.D. Diagnosis, Assessment Plan Problem List/A [...] completed. Treatment plan discussed with patient. at 0650 RPT #:[id number] END OF REPORT [facility] 2023-06-18 09:49:00 [facility] ([facility]) Cardiology Progress Note REPORT#:[id number] REPORT STATUS: Signed REPORT INITIALIZATION DATE:06/18/23 TIME: 948 PATIENT: MINDY CARTER UNIT #: [id number] ROOM/BED: [place] [address] : 53 AGE: 67 SEX: M ATTEND: Kumar Garcia MD ADM AUTHOR: Clayton Nathan MD REPT SERVICE DT/TIME: 06/18/2349 * ALL edits or amendments must be [...] the next 24 hours. at 1246 RPT #:[id number] END OF REPORT [facility] 2023-06-18 05:45:00 [facility] ([facility]) Cardiothoracic Surgery Prog REPORT#:[id number] REPORT STATUS: Signed REPORT INITIALIZATION DATE:06/18/23 TIME: 544 PATIENT: MINDY CARTER UNIT #: [id number] [address]BED: [address] : 53 AGE: 67 SEX: M [...] 06/17 0344 O2 Delivery Nasal cannula 06/17 034 Temp 97.9 06/17 0344 Pulse 69 06/17 [...] patient Discussion included: living will, power of corporate attorney, code status Current Medications Current medication [...] diagnosed. Patient does not live local to [place]. Will consult gastroenterology to see patient. -EtOH cessation 3. Chronic kidney disease -Patient does not live local to [place]. Will consult nephrology to see patient. Patient [...] disease Patient was seen and examined at [facility]. Plan of care discussed with multidisciplinary [...] cardiovascular surgery at 1314 at 1016 RPT #:[id number] END OF REPORT [facility] 2023-06-17 15:38:00 [facility] Hospitalist Progress Note REPORT#:[id number] REPORT STATUS: Signed REPORT INITIALIZATION DATE:06/17/23 TIME: 1538 PATIENT: MINDY CARTER UNIT #: [id number] ROOM/BED: [place] [address] : 53 AGE: 67 SEX: M ATTEND: Talat Lord MD ADM AUTHOR: Talat Lord MD REPT SERVICE DT/TIME: 06/17/231537 * ALL edits or amendments must be [...] 31 112/58 81 94 06/15 2000 97.9 06/15 2000 High flow 3 nasal cannula [...] Glargine (Semglee) 40 UNIT BEDTIME SUBQ Ipratropium Eagle (ATROVENT) 500 MCG RTQ2H PRN PRN INH [...] Extremities: 3+ PRETIBIAL EDEMA Musculoskeletal: normal inspection Neuro/INK MAKER: alert, oriented X 3, CNII-XII intact Skin: [...] 06/15 06/15 06/15 0320 0116 2214 2212 2114 Chemistry Sodium (134 - 147 mEq/L) 129 [...] (3.4 - 5.0 g/dL) 2.90 L 06/15 183 Chemistry POC Glucose (70 - 110 MG/DL) [...] (Auto) (14.0 - 32.0 %) 4.8 L [place] % (Auto) (4.8 - 9.0 %) 14.1 H Eos % (Auto) (0.3 - 3.7 %) 2.3 Baso % (Auto) (0.0 - 2.0 %) 0.4 Neut # (Auto) (2.0 - 7.6 x10 3/uL) 7.80 H Lymph # (Auto) (1.0 - 3.8 x10 3/uL) 0.49 L [place] # (Auto) (0.1 - 0.8 x10 3/uL) [...] RADIOLOGY - XR CHEST 1 V 06/16 0605 Report Impression - Status: SIGNED Entered: 06/17/202328 IMPRESSION: No significant interval change. Impression By: [email or web address] - Orlando Baez M.D. ULTRASOUND - DUP VEIN BETH 06/16 2135 Report Impression - Status: SIGNED Entered: 06/17/2023 [...] as needed, long acting insulin as per [facility] Hypertension Renew medications once they have been updated in the computer Now on pressors for hypotension DEBILITY - REHAB SEEN, MAY NEED IRF Patient does not have a living will or medical power of corporate attorney Patient is a full code 06/01 [...] patient Discussion included: living will, power of corporate attorney, code status at 1542 RPT #:[id number] END OF REPORT [facility] 2023-06-17 12:59:00 [facility] ([facility]) Gastroenterology Progress Note REPORT#:[id number] REPORT STATUS: Signed REPORT INITIALIZATION DATE:06/17/23 TIME: 1259 PATIENT: MINDY CARTER UNIT #: [id number] ROOM/BED: [place] [address] : 53 AGE: 67 SEX: M ATTEND: Talat Lord MD ADM AUTHOR: Farideh Harris REPT SERVICE DT/TIME: 06/17/23 1257 * ALL edits or amendments must be made on the electronic/computer document * Farideh Harris 06/17/23 1259: Subjective Patient reports: Yes: passing gas. No: [...] Glargine (Semglee) 40 UNIT BEDTIME SUBQ Ipratropium Eagle (ATROVENT) 500 MCG RTQ2H PRN PRN INH [...] guarding Extremities: moves all Musculoskeletal: normal inspection Neuro/INK MAKER: alert, normal speech Skin: dry, intact, normal [...] (3.4 - 5.0 g/dL) 2.90 L 06/15 06/15 06/15 2114 2057 1835 Chemistry Sodium (134 - 147 mEq/L) [...] (Auto) (14.0 - 32.0 %) 4.8 L [place] % (Auto) (4.8 - 9.0 %) 14.1 H Eos % (Auto) (0.3 - 3.7 %) 2.3 Baso % (Auto) (0.0 - 2.0 %) 0.4 Neut # (Auto) (2.0 - 7.6 x10 3/uL) 7.80 H Lymph # (Auto) (1.0 - 3.8 x10 3/uL) 0.49 L [place] # (Auto) (0.1 - 0.8 x10 3/uL) [...] RADIOLOGY - XR CHEST 1 V 06/16 0626 Report Impression - Status: SIGNED Entered: 06/17/2023 6503 IMPRESSION: No significant interval change. Impression By: [email or web address] - Orlando Baez M.D. ULTRASOUND - DUP VEIN BETH 06/16 1454 Report Impression - Status: SIGNED Entered: 06/17/2023 1511 IMPRESSION: 1. No evidence of deep venous thrombosis. Impression By: [email or web address] Frandy Hogan M.D. Results: labs reviewed, vital signs [...] RAHUL Tobias. at 1548 at 203 RPT #:[id number] END OF REPORT [facility] 2023-06-17 11:54:00 [facility] ([facility]) Cardiothoracic Surgery Prog REPORT#:[id number] REPORT STATUS: Signed REPORT INITIALIZATION DATE:06/17/23 TIME: 1154 PATIENT: MINDY CARTER UNIT #: [id number] ROOM/BED: [place] [address] : 53 AGE: 67 SEX: M ATTEND: Kumar Garcia MD ADM AUTHOR: Johnna Pablo Physic REPT SERVICE DT/TIME: 06/17/23 2374 * ALL edits or amendments must be [...] patient Discussion included: living will, power of corporate attorney, code status Current Medications Current medication [...] diagnosed. Patient does not live local to [place]. Will consult gastroenterology to see patient. -EtOH cessation 3. Chronic kidney disease -Patient does not live local to [place]. Will consult nephrology to see patient. Patient [...] disease Patient was seen and examined at [facility]. Plan of care discussed with multidisciplinary [...] CRRT. Patient was seen and examined at [facility]. Plan of care discussed with multidisciplinary [...] cardiovascular surgery at 1521 at 0850 RPT #:[id number] END OF REPORT [facility] 2023-06-17 11:31:00 [facility] ([facility]) Acute Rehab Consult REPORT#:[id number] REPORT STATUS: Signed REPORT INITIALIZATION DATE:06/17/23 TIME: 113 PATIENT: MINDY CARTER UNIT #: [id number] ROOM/BED: [place] [address] : 53 AGE: 67 SEX: M ATTEND: [...] Decreased Ember Lacks Heel Strike - Bilat [facility] Mobility: No Document Pain/Education: No Advanced Progression: No Effects of Treatment: Balance Improved Maybeury of care decreased Cardio tolerance improved Function Improved Tolerance increased Post Treatment Precautions: In Bed, Rails Up Family at Bedside Call Light in Reach Nursing Notified O2 On Pulse OX in Place SCD in Place Telephone in Reach Review Plan of Care: Yes PT charges: Gait Training [id number] Gait Cmt: IMPROVING SLOWLY, STILL ON 4L [...] Document OT charges: EVAL OT HIGH COMP [id number] Comments: SKILLED OT TO ADDRESS PERFORMANCE DEFICITS. 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 [...] Admin Melatonin 6 MG BEDTIME PRN 06/11 1630 AC 06/14 (Melatonin) PO 09/09 1629 2009 Autonomic Drugs Sig/Norris Start time Last Medication Dose Route Stop Time Status Admin Ipratropium Eagle 500 MCG RTQ2H PRN PRN 06/13 1942 AC 06/13 (ATROVENT) INH 09/11 Dopamine HCl/Dextrose 250 ML ASDIR 06/11 2315 AC 06/11 (DOPamine 400MG/D5W IV 09/09 2314 2308 250ML) Epinephrine 4 MG ASDIR 06/11 193 AC (ADRENALIN CHLORIDE) IV 09/09 1928 Sodium Chloride 246 ML (SODIUM CHLORIDE 0.9%) Norepinephrine 250 ML TITRATE 06/10 1944 AC 06/13 Bitartrate IV 09/09 1943 005 (NOREPINEPHRINE 8 MG/ NS 250 ML) Blood Formation,Coagulation Sig/Norris Start time Last Medication Dose Route Stop Time Status Admin Ferrous Sulfate 325 MG DAILY 06/13 899 AC 06/16 (FERROUS SULFATE) PO 09/11 0859 0821 Clopidogrel Bisulfate 75 MG DAILY 06/11 899 AC 06/16 (Plavix) PO 09/09 0859 0817 Cardiovascular Drugs Sig/Norris Start time Last Medication Dose Route Stop Time Status Admin Atorvastatin Calcium 40 MG 2100 06/16 2099 AC (LIPITOR) PO 07/16 2058 Hydralazine HCl 5 MG PACU Q10MIN PRN PRN 06/14 0920 AC (APRESOLINE) IV Labetalol HCl 5 MG PACU Q10MIN PRN PRN 06/14 0920 AC (labetalol) IV Milrinone Lactate/ 100 ML [...] Citrate 100 MCG PACU Q10MIN PRN PRN 06/14 0920 AC (SUBLIMAZE) IV Fentanyl Citrate 50 MCG [...] (ULTRAM) PO Aspirin 81 MG DAILY 06/11 014 AC 06/16 (ASPIRIN) PO 09/0917 Magnesium Sulfate 100 ML ASDIR PRN 06/10 1944 AC (MAGNESIUM SULFATE IV 09/09 1943 4GM/SWFI 100ML) Magnesium Sulfate 50 ML ASDIR PRN 06/10 1944 AC 06/14 (MAGNESIUM SULFATE IV 09/09 1943 1912 2GM/SWFI 50ML) Magnesium Sulfate/ 100 ML ASDIR PRN 06/10 1944 AC 06/15 Dextrose IV 09/09 1943 171 (MAGNESIUM SULFATE 1GM/D5W 100ML) Oxycodone HCl 5 [...] 06/12 0900 DC 06/15 (LASIX) IV 09/10 0859 0927 Sodium Chloride 24 ML (SODIUM CHLORIDE [...] PRN 06/14 0920 AC (ZOFRAN) IV 09/12 0919 Bisacodyl 10 MG ONCE PRN 06/12 1200 AC (DULCOLAX) RECTAL 09/10 1159 Magnesium Hydroxide 30 ML ONCE PRN 06/12 1200 AC (MILK OF MAGNESIA) PO Polyethylene Glycol 17 GM DAILY 06/11 09 AC 06/16 (MIRALAX) PO 09/09 0859 0818 Pantoprazole 40 MG DAILY@0600 06/11 0600 AC 06/16 (PROTONIX) PO 09/09 0559 0617 Docusate Sodium 100 MG BID 06/10 2100 AC 06/16 (COLACE) PO 09/08 Sennosides 17.2 MG BEDTIME 06/10 2100 AC 06/15 (Senna Lax 8.6 MG PO 09/08 TABLET) Ondansetron HCl 4 MG Q6H PRN PRN 06/10 194 AC (ZOFRAN) IV 09/09 1943 Hormones And [...] 06/13 2100 AC 06/15 (Semglee) SUBQ 09/11 2058 2100 Vasopressin 100 ML ASDIR 06/12 0630 CKD 06/13 (VASOSTRICT 20 Unit/ IV 09/10 0629 0055 NS 100ML) Insulin Human Regular 100 UNIT ASDIR 06/10 1944 CKD 06/16 (HumuLIN R) IV 09/09 1943 0313 Sodium Chloride 99 ML (SODIUM CHLORIDE 0.9%) [...] 06/16 0800 O2 Delivery Nasal cannula 06/16 08 O2 Flow Rate 2 06/16 08 Pulse Ox 95 06/16 432 FiO2 32 06/16 432 B/P 99/59 06/16 020 B/P Mean 73 06/16 199 Pulse 67 06/16 020 Resp 27 06/16 199 PATIENT WEIGHT: Weight (lb): 248 Weight (oz): [...] normal, range of motion normal, no atrophy Neuro/INK MAKER: alert, oriented X 3, normal speech, no [...] (Auto) (14.0 - 32.0 %) 4.8 L [place] % (Auto) (4.8 - 9.0 %) 14.1 H Eos % (Auto) (0.3 - 3.7 %) 2.3 Baso % (Auto) (0.0 - 2.0 %) 0.4 Neut # (Auto) (2.0 - 7.6 x10 3/uL) 7.80 H Lymph # (Auto) (1.0 - 3.8 x10 3/uL) 0.49 L [place] # (Auto) (0.1 - 0.8 x10 3/uL) [...] (Man) (0.0 - 0.1 x10 3/uL) 0.04 06/15 06/15 06/15 06/15 2114 2057 1835 1530 Chemistry Sodium (134 - [...] 0625 Report Impression - Status: SIGNED Entered: 06/17/202337 IMPRESSION: No significant interval change. Impression By: [email or web address] - Orlando Hang, M.D. Diagnosis, Assessment Plan Problem List/A P: [...] [facility]. at 1827 RPT #:[id number] END OF REPORT [facility] 2023-06-17 11:19:00 [facility] Critical Care Progress Note REPORT#:[id number] REPORT STATUS: Signed REPORT INITIALIZATION DATE:06/17/23 TIME: 111 PATIENT: MINDY CARTER UNIT #: [id number] ROOM/BED: [place] [address] : 53 AGE: 67 SEX: M ATTEND: [...] Glargine (Semglee) 40 UNIT BEDTIME SUBQ Ipratropium Eagle (ATROVENT) 500 MCG RTQ2H PRN PRN INH [...] soft, non-tender, no mass/organomegaly Extremities: edema (2+) Neuro/INK MAKER: alert, no motor deficits Results Findings/data: Laboratory [...] 06/15 06/15 06/15 06/15 0116 2214 2212 2114 2057 Chemistry Sodium (134 - 147 mEq/L) 129 [...] (Auto) (14.0 - 32.0 %) 4.8 L [place] % (Auto) (4.8 - 9.0 %) 14.1 H Eos % (Auto) (0.3 - 3.7 %) 2.3 Baso % (Auto) (0.0 - 2.0 %) 0.4 Neut # (Auto) (2.0 - 7.6 x10 3/uL) 7.80 H Lymph # (Auto) (1.0 - 3.8 x10 3/uL) 0.49 L [place] # (Auto) (0.1 - 0.8 x10 3/uL) [...] Increasing LFTs with underlying liver cirrhosis. Plan: INK MAKER: Awake and alert. No signs and symptoms [...] patient Discussion included: living will, power of corporate attorney, code status at 1130 RPT #:[id number] END OF REPORT [facility] 2023-06-17 07:23:00 [facility] ([facility] Nephrology Progress Note REPORT#:[id number] REPORT STATUS: Signed REPORT INITIALIZATION DATE:06/17/23 TIME: 722 PATIENT: MINDY CARTER UNIT #: [id number] ROOM/BED: [place] [address] : 53 AGE: 67 SEX: M ATTEND: [...] Consultants: cardiology, cardiovascular surgery at 1826 RPT #:[id number] END OF REPORT [facility] 2023-06-17 07:10:00 [facility] Cardiology Progress Note REPORT#:[id number] REPORT STATUS: Signed REPORT INITIALIZATION DATE:06/17/23 TIME: 07 PATIENT: MINDY CARTER UNIT #: [id number] ROOM/BED: [place] [address] : 53 AGE: 67 SEX: M ATTEND: [...] the next 24 hours. at 0946 RPT #:[id number] END OF REPORT [facility] 2023-06-16 20:15:00 [facility] Nephrology Progress Note REPORT#:[id number] REPORT STATUS: Signed REPORT INITIALIZATION DATE:06/16/23 TIME: 2014 PATIENT: MINDY CARTER UNIT #: [id number] ROOM/BED: [place] [address] : 53 AGE: 67 SEX: M ATTEND: [...] 31 112/58 81 94 06/15 2000 36.6 06/16 1999 High flow 3 nasal cannula [...] Consultants: cardiology, cardiovascular surgery at 0723 RPT #:[id number] END OF REPORT [facility] 2023-06-16 17:11:00 [facility] ([facility] Critical Care Progress Note REPORT#:[id number] REPORT STATUS: Signed REPORT INITIALIZATION DATE:06/16/23 TIME: 171 PATIENT: MINDY CARTER UNIT #: [id number] ROOM/BED: [place] [address] : 53 AGE: 67 SEX: M ATTEND: Talat Lord MD ADM AUTHOR: Светлана Arriaga MD REPT SERVICE DT/TIME: 06/16/23 8541 * ALL edits or amendments must be [...] Glargine (Semglee) 40 UNIT BEDTIME SUBQ Ipratropium Eagle (ATROVENT) 500 MCG RTQ2H PRN PRN INH [...] soft, non-tender, no mass/organomegaly Extremities: edema (2+) Neuro/INK MAKER: alert, no motor deficits Results Findings/data: Laboratory [...] 1.7 mmol/l) 0.6 L O[address] [facility] Laboratory Tests 06/15 06/15 06/15 06/15 06/15 [...] (Auto) (14.0 - 32.0 %) 5.0 L [place] % (Auto) (4.8 - 9.0 %) 12.6 H Eos % (Auto) (0.3 - 3.7 %) 3.4 Baso % (Auto) (0.0 - 2.0 %) 0.1 Neut # (Auto) (2.0 - 7.6 x10 3/uL) 8.82 H Lymph # (Auto) (1.0 - 3.8 x10 3/uL) 0.56 L [place] # (Auto) (0.1 - 0.8 x10 3/uL) [...] 0608 Report Impression - Status: SIGNED Entered: 06/16/2023917 IMPRESSION: Cardiomegaly with small pleural effusions and left lower lobe consolidation, grossly unchanged from prior. Small left apical pneumothorax. Impression By: Osiel Fry M.D. Diagnosis, Assessment Plan Free text A P: Multivessel CAD s/p CABG x 3 (COSTA-LAD, SVG-Diag, SVG-OM) ALAA Postoperative respiratory insufficiency following cardiac surgery Postoperative pain Shock Leukocytosis Liver cirrhosis EtOH dependence Increasing LFTs with underlying liver cirrhosis. Plan: INK MAKER: Awake and alert. No signs and symptoms [...] patient Discussion included: living will, power of corporate attorney, code status at 1721 RPT #:[id number] END OF REPORT [facility] 2023-06-16 15:11:00 [facility] ([facility]) Clinical Note REPORT#:[id number] REPORT STATUS: Signed REPORT INITIALIZATION DATE:06/16/23 TIME: 1511 PATIENT: MINDY CARTER UNIT #: [id number] ROOM/BED: [address] : 53 AGE: 67 SEX: M ATTEND: [...] Stay (<6 days)* 33.9% at 1511 RPT #:[id number] END OF REPORT [facility] 2023-06-16 14:58:00 [facility] ([facility]) Hospitalist Progress Note REPORT#:[id number] REPORT STATUS: Signed REPORT INITIALIZATION DATE:06/16/23 TIME: 145 PATIENT: MINDY CARTER UNIT #: [id number] ROOM/BED: [facility] : 53 AGE: 67 SEX: M ATTEND: [...] 2100 66 17 109/60 79 97 06/14 2008 70 28 113/59 80 97 06/15 1999 High flow 8 nasal cannula 06/15 1999 [...] Glargine (Semglee) 40 UNIT BEDTIME SUBQ Ipratropium Eagle (ATROVENT) 500 MCG RTQ2H PRN PRN INH [...] no clubbing, no cyanosis, 3+ PRETIBIAL EDEMA Neuro/INK MAKER: alert, oriented X 3, CNII-XII intact Skin: [...] (Auto) (14.0 - 32.0 %) 5.0 L [place] % (Auto) (4.8 - 9.0 %) 12.6 H Eos % (Auto) (0.3 - 3.7 %) 3.4 Baso % (Auto) (0.0 - 2.0 %) 0.1 Neut # (Auto) (2.0 - 7.6 x10 3/uL) 8.82 H Lymph # (Auto) (1.0 - 3.8 x10 3/uL) 0.56 L [place] # (Auto) (0.1 - 0.8 x10 3/uL) [...] as needed, long acting insulin as per [facility] Hypertension Renew medications once they have been updated in the computer Now on pressors for hypotension Check labs in the a.m. Patient does not have a living will or medical power of corporate attorney Patient is a full code 06/01 [...] patient Discussion included: living will, power of corporate attorney, code status at 1501 RPT #:[id number] END OF REPORT [facility] 2023-06-16 10:37:00 [facility] Gastroenterology Progress Note REPORT#:[id number] REPORT STATUS: Signed REPORT INITIALIZATION DATE:06/16/23 TIME: 1037 PATIENT: MINDY CARTER UNIT #: [id number] ROOM/BED: [place] [address] : 53 AGE: 67 SEX: M ATTEND: [...] Last Documented: Result Date Time Temp 36.4 03/20 0800 Pulse Ox 96 06/15 0758 O2 [...] Glargine (Semglee) 40 UNIT BEDTIME SUBQ Ipratropium Eagle (ATROVENT) 500 MCG RTQ2H PRN PRN INH [...] guarding Extremities: moves all Musculoskeletal: normal inspection Neuro/INK MAKER: alert, normal speech Skin: dry, intact, normal [...] 1.7 mmol/l) 0.6 L O2 Delivery Device [facility] Laboratory Tests 06/15 06/15 06/15 06/15 06/15 [...] L 06/14 06/14 06/14 06/14 2251 2111 2103 1917 Chemistry Sodium (134 - 147 mEq/L) [...] (Auto) (14.0 - 32.0 %) 5.0 L [place] % (Auto) (4.8 - 9.0 %) 12.6 H Eos % (Auto) (0.3 - 3.7 %) 3.4 Baso % (Auto) (0.0 - 2.0 %) 0.1 Neut # (Auto) (2.0 - 7.6 x10 3/uL) 8.82 H Lymph # (Auto) (1.0 - 3.8 x10 3/uL) 0.56 L [place] # (Auto) (0.1 - 0.8 x10 3/uL) [...] Consultants: cardiology, cardiovascular surgery Rigoberto Jarrell 06/16/23 8681: Attestations Physician Attestation Agree w/findings plan: Agree with the findings and plan as documented by RAHUL Tobias. at 9366 at 4393 RPT #:[id number] END OF REPORT [facility] 2023-06-16 06:18:00 [facility] ([facility]) Cardiology Progress Note REPORT#:[id number] REPORT STATUS: Signed REPORT INITIALIZATION DATE:06/16/23 TIME: 617 PATIENT: MINDY CARTER UNIT #: [id number] ROOM/BED: [place] [address] : 53 AGE: 67 SEX: M ATTEND: Talat Lord MD ADM AUTHOR: Clayton Nathan MD REPT SERVICE DT/TIME: 06/16/23617 * ALL edits or amendments must be [...] cirrhosis, low-dose beta- blockers at 0710 RPT #:[id number] END OF REPORT [facility] 2023-06-16 06:08:00 [facility] ([facility]) Cardiology Progress Note REPORT#:[id number] REPORT STATUS: Signed REPORT INITIALIZATION DATE:06/16/23 TIME: 06 PATIENT: MINDY CARTER UNIT #: [id number] ROOM/BED: [facility] : 53 AGE: 67 SEX: M ATTEND: Kimmie Bacon MD ADM AUTHOR: Clayton Nathan MD REPT SERVICE DT/TIME: 06/15/23 1600 * [...] cirrhosis, low-dose beta- blockers at 0612 RPT #:[id number] END OF REPORT [facility] 2023-06-15 17:13:00 [facility] Cardiothoracic Surgery Prog REPORT#:[id number] REPORT STATUS: Signed REPORT INITIALIZATION DATE:06/15/23 TIME: 1712 PATIENT: MINDY CARTER UNIT #: [id number] ROOM/BED: [address] : 53 AGE: 67 SEX: M ATTEND: Kumar Garcia MD ADM AUTHOR: Johnna Pablo Physic REPT SERVICE DT/TIME: 06/15/23 1321 * ALL edits or amendments must be [...] patient Discussion included: living will, power of corporate attorney, code status Current Medications Current medication [...] diagnosed. Patient does not live local to [place]. Will consult gastroenterology to see patient. -EtOH cessation 3. Chronic kidney disease -Patient does not live local to [place]. Will consult nephrology to see patient. Patient [...] disease Patient was seen and examined at [facility]. Plan of care discussed with multidisciplinary [...] CRRT. Patient was seen and examined at [facility]. Plan of care discussed with multidisciplinary [...] multidisciplinary team. Consultants: cardiology, cardiovascular surgery at 1717 at 0948 RPT #:[id number] END OF REPORT [facility] 2023-06-15 12:27:00 [facility] ([facility] Gastroenterology Progress Note REPORT#:[id number] REPORT STATUS: Signed REPORT INITIALIZATION DATE:06/15/23 TIME: 1226 PATIENT: MINDY CARTER UNIT #: [id number] ROOM/BED: [place] [address] : 53 AGE: 67 SEX: M ATTEND: [...] Glargine (Semglee) 40 UNIT BEDTIME SUBQ Ipratropium Eagle (ATROVENT) 500 MCG RTQ2H PRN PRN INH [...] MG TABLET) 17.2 MG BEDTIME PO Ipratropium Eagle (ATROVENT) 500 MCG RTQ4H INH (DC) Calcium [...] guarding Extremities: moves all Musculoskeletal: normal inspection Neuro/INK MAKER: alert, normal speech Skin: dry, intact, normal [...] 06/14 06/14 06/14 06/14 1516 1502 1136 0927 Chemistry Sodium (134 - 147 mEq/L) 133 [...] H 263 H 290 H Laboratory Tests 06/145 Hematology WBC (4.5 - 11.0 x10 3/uL) [...] (Auto) (14.0 - 32.0 %) 4.5 L [place] % (Auto) (4.8 - 9.0 %) 8.7 Eos % (Auto) (0.3 - 3.7 %) 1.3 Baso % (Auto) (0.0 - 2.0 %) 0.1 Neut # (Auto) (2.0 - 7.6 x10 3/uL) 11.68 H Lymph # (Auto) (1.0 - 3.8 x10 3/uL) 0.63 L [place] # (Auto) (0.1 - 0.8 x10 3/uL) [...] Report Impression - Status: SIGNED Entered: 06/15/2023 0772 IMPRESSION: 1. Lines and tubes are seen [...] plan as documented by RAHUL Tobias. at 1738 at 205 RPT #:[id number] END OF REPORT [facility] 2023-06-15 11:59:00 [facility] ([facility]) Critical Care Progress Note REPORT#:[id number] REPORT STATUS: Signed REPORT INITIALIZATION DATE:06/15/23 TIME: 1158 PATIENT: MINDY CARTER UNIT #: [id number] ROOM/BED: [place] [address] : 53 AGE: 67 SEX: M ATTEND: [...] the Lasix. Will discontinue chest tube and [place] Objective General VS/I O Last Documented: Result [...] Glargine (Semglee) 40 UNIT BEDTIME SUBQ Ipratropium Eagle (ATROVENT) 500 MCG RTQ2H PRN PRN INH [...] MG TABLET) 17.2 MG BEDTIME PO Ipratropium Eagle (ATROVENT) 500 MCG RTQ4H INH (DC) Calcium [...] soft, non-tender, no mass/organomegaly Extremities: edema (2+) Neuro/INK MAKER: alert, no motor deficits Results Findings/data: Laboratory [...] 2.6 mg/dL) 2.30 06/14 06/14 06/14 06/14 06/13 0315 0315 0310 0039 2230 Chemistry Sodium (134 [...] Albumin (3.4 - 5.0 g/dL) 2.80 L 03/18 03/18 03/18 03/18 03/18 1957 1810 1719 1603 1223 Chemistry Sodium (134 [...] (Auto) (14.0 - 32.0 %) 4.5 L [place] % (Auto) (4.8 - 9.0 %) 8.7 Eos % (Auto) (0.3 - 3.7 %) 1.3 Baso % (Auto) (0.0 - 2.0 %) 0.1 Neut # (Auto) (2.0 - 7.6 x10 3/uL) 11.68 H Lymph # (Auto) (1.0 - 3.8 x10 3/uL) 0.63 L [place] # (Auto) (0.1 - 0.8 x10 3/uL) [...] unchanged. Impression By: [email or web address] Frandy Casanova M.D. Free Text Obj Notes Free Text Obj Notes: Middle-age male alert and oriented not in distress Pupil equal reactive to light Neck supple Chest with sternotomy dressing, [address] Heart S1-S2 Abdomen soft, could not appreciate bowel sounds Extremities no edema, right leg dressed INK MAKER no deficits Diagnosis, Assessment Plan Free text A P: Multivessel CAD s/p CABG x 3 (COSTA-LAD, SVG-Diag, SVG-OM) ALAA Postoperative respiratory insufficiency following cardiac surgery Postoperative pain Shock Leukocytosis Liver cirrhosis EtOH dependence Increasing LFTs with underlying liver cirrhosis. Plan: INK MAKER: Awake and alert. No signs and symptoms [...] Consultants: cardiology, cardiovascular surgery at 1304 RPT #:[id number] END OF REPORT [facility] 2023-06-15 10:56:00 [facility] ([facility] Nephrology Progress Note REPORT#:[id number] REPORT STATUS: Signed REPORT INITIALIZATION DATE:06/15/23 TIME: 105 PATIENT: MINDY CARTER UNIT #: [id number] ROOM/BED: [place] [address] : 54 AGE: 67 SEX: M ATTEND: [...] Flow FiO2 Mean Ox Delivery Rate 06/14 0501 116/61 83 06/14 0601 76 29 132/54 75 96 06/14 0600 75 27 129/53 74 95 06/14 0500 98/57 75 06/14 0500 70 21 122/54 73 95 0417 98 Nasal 8 52 cannula / 0400 96/54 70 03/19 0400 68 15 113/52 69 98 /19 0300 97/56 73 03/19 0300 69 15 117/54 71 97 03/19 0200 97/52 69 03/19 0200 71 16 121/55 73 97 03/ 0100 105/60 78 03/19 0100 70 17 120/55 72 98 03/ 0000 98/74 81 03/ 0000 71 33 118/55 73 96 /18 2300 100/58 73 /18 2300 71 17 124/56 75 97 /18 2200 90/53 66 03/18 2200 71 17 115/54 71 98 /18 2100 102/57 76 /18 2100 74 19 127/57 76 98 06/13 2026 96 High flow 8 nasal cannula 06/14 1999 High flow 8 nasal cannula 06/14 1999 105/57 73 06/13 2000 75 31 120/60 79 94 06/13 1917 109/63 79 06/13 1900 74 27 116/55 73 97 06/13 1800 76 31 126/58 76 96 06/13 1700 76 33 114/55 72 98 18 1600 80 28 127/58 77 95 18 1500 76 33 120/55 71 100 06/13 1459 97 High flow 8 nasal cannula 06/13 1430 76 40 115/53 71 85 18 1400 110/65 83 06/13 1400 79 25 114/52 68 100 06/13 1330 79 34 115/49 66 100 18 1300 76 36 106/50 65 96 18 1217 125/66 87 18 1201 84 36 243/243 243 94 06/13 [...] Consultants: cardiology, cardiovascular surgery at 1057 RPT #:[id number] END OF REPORT [facility] 2023-06-15 09:04:00 [facility] Hospitalist Progress Note REPORT#:[id number] REPORT STATUS: Signed REPORT INITIALIZATION DATE:06/15/23 TIME: 903 PATIENT: MINDY CARTER UNIT #: [id number] ROOM/BED: [place] [address] : 54 AGE: 67 SEX: M ATTEND: Kimmie Bacon MD ADM AUTHOR: Kimmie Bacon MD REPT SERVICE DT/TIME: 06/15/23 09 * ALL edits or amendments must [...] Glargine (Semglee) 40 UNIT BEDTIME SUBQ Ipratropium Eagle (ATROVENT) 500 MCG RTQ2H PRN PRN INH [...] MG TABLET) 17.2 MG BEDTIME PO Ipratropium Eagle (ATROVENT) 500 MCG RTQ4H INH (DC) Calcium [...] soft Extremities: edema, no clubbing, no cyanosis Neuro/INK MAKER: alert, oriented X 3, CNII-XII intact Skin: [...] g/dL) 2.80 L 06/13 1810 1719 1603 Chemistry POC Glucose (70 - 110 MG/DL) 213 H 263 H 290 H 300 H 351 H Laboratory Tests 06/14 314 Hematology WBC (4.5 - 11.0 x10 3/uL) [...] (Auto) (14.0 - 32.0 %) 4.5 L [place] % (Auto) (4.8 - 9.0 %) 8.7 Eos % (Auto) (0.3 - 3.7 %) 1.3 Baso % (Auto) (0.0 - 2.0 %) 0.1 Neut # (Auto) (2.0 - 7.6 x10 3/uL) 11.68 H Lymph # (Auto) (1.0 - 3.8 x10 3/uL) 0.63 L [place] # (Auto) (0.1 - 0.8 x10 3/uL) [...] RADIOLOGY - XR CHEST 1 V 06/14 8042 Report Impression - Status: SIGNED Entered: 06/15/2023 8516 IMPRESSION: 1. Lines and tubes are seen [...] as needed, long acting insulin as per [facility] Hypertension Renew medications once they have been updated in the computer Now on pressors for hypotension Check labs in the a.m. Patient does not have a living will or medical power of corporate attorney Patient is a full code 06/01 [...] patient Discussion included: living will, power of corporate attorney, code status at 1543 RPT #:[id number] END OF REPORT [facility] 2023-06-14 23:44:00 [facility] Nephrology Progress Note REPORT#:[id number] REPORT STATUS: Signed REPORT INITIALIZATION DATE:06/14/23 TIME: 2343 PATIENT: MINDY CARTER UNIT #: [id number] ROOM/BED: [place] [address] : 54 AGE: 67 SEX: M ATTEND: [...] 129/53 74 95 06/14 0500 98/57 75 / 0500 70 21 122/54 73 95 06/14 0417 98 Nasal 8 52 cannula 06/14 0400 96/54 70 03/ 0400 68 15 113/52 69 98 06/14 0300 97/56 73 / 0300 69 15 117/54 71 97 / 0200 97/52 69 03/ 0200 71 16 121/55 73 97 / 0100 105/60 78 03/ 0100 70 17 120/55 72 98 / 0000 98/74 81 03/ 0000 71 33 118/55 73 96 / 2300 100/58 73 /18 2300 71 17 124/56 75 97 / 2200 90/53 66 03/ 2200 71 17 115/54 71 98 06/13 2100 102/57 76 18 2100 74 19 127/57 76 98 06/13 2026 96 High flow 8 nasal cannula 06/14 1999 High flow 8 nasal cannula 06/14 1999 105/57 73 /18 2000 75 31 120/60 79 94 /18 1917 109/63 79 18 1900 74 27 116/55 73 97 /18 1800 76 31 126/58 76 96 18 1700 76 33 114/55 72 98 18 1600 80 28 127/58 77 95 /18 1500 76 33 120/55 71 100 06/13 1459 97 High flow 8 nasal cannula 06/13 1430 76 40 115/53 71 85 / 1400 110/65 83 / 1400 79 25 114/52 68 100 06/13 [...] Consultants: cardiology, cardiovascular surgery at 1054 RPT #:[id number] END OF REPORT [facility] 2023-06-14 18:24:00 [id number] [place] [address] PATIENT NAME: MINDY CARTER ADMIT DATE: 05/31/23 ACCOUNT NO: [id number] ROOM NO: G.2202 AGE: 67 REPORT TYPE: eECHOCARDIOGRAM REPORT SEX: M ADMITTING PHYSICIAN:Eleonora Mai MD ATTENDING PHYSICIAN:Kimmie Bacon MD *[place] [address] Limited Transthoracic Echocardiogram Patient: Mindy Carter Study Date: 06/14/2023 BP: 112 / 58 URN: [id number] Location: : 1955 Age: 67 Gender: M Height: 69 in / 175.3 cm Weight: 246 lb / 111.6 kg BMI/BSA: 36.3 kg/m 2 / 2.37 m 2 *Ordering Physician: * Johnna Pablo Physic *Interpreting Physician: * Clayton Nathan MD *Recycling Center Operator: * Johanna Lundy Indications: Evaluation left ventricle and right ventricular function. Study data: Transthoracic echocardiogram, limited study. Procedure: A transthoracic echocardiogram was performed. Image quality was adequate. Limited 2D and limited spectral Doppler. [facility] Patient status: Inpatient. Patient room number: [...] 18:24 at 1824 PATIENT NAME: MINDY CARTER [facility] 2023-06-14 17:52:00 [facility] Cardiology Progress Note REPORT#:[id number] REPORT STATUS: Signed REPORT INITIALIZATION DATE:06/14/23 TIME: 175 PATIENT: MINDY CARTER UNIT #: [id number] ROOM/BED: [place] [address] : 54 AGE: 67 SEX: M ATTEND: [...] cirrhosis, low-dose beta- blockers. at 1757 RPT #:[id number] END OF REPORT [facility] 2023-06-14 15:21:00 [facility] Cardiothoracic Surgery Prog REPORT#:[id number] REPORT STATUS: Signed REPORT INITIALIZATION DATE:06/14/23 TIME: 1520 PATIENT: MINDY CARTER UNIT #: [id number] ROOM/BED: [place] [address] : 54 AGE: 67 SEX: M ATTEND: [...] patient Discussion included: living will, power of corporate attorney, code status Current Medications Current medication [...] diagnosed. Patient does not live local to [place]. Will consult gastroenterology to see patient. -EtOH cessation 3. Chronic kidney disease -Patient does not live local to [place]. Will consult nephrology to see patient. Patient [...] disease Patient was seen and examined at [facility]. Plan of care discussed with multidisciplinary [...] CRRT. Patient was seen and examined at [facility]. Plan of care discussed with multidisciplinary [...] Consultants: cardiology, cardiovascular surgery at 1525 at 9238 RPT #:[id number] END OF REPORT [facility] 2023-06-14 12:37:00 [facility] Gastroenterology Progress Note REPORT#:[id number] REPORT STATUS: Signed REPORT INITIALIZATION DATE:06/14/23 TIME: 1236 PATIENT: MINDY CARTER UNIT #: [id number] ROOM/BED: [place] [address] : 54 AGE: 67 SEX: M ATTEND: [...] Glargine (Semglee) 40 UNIT BEDTIME SUBQ Ipratropium Eagle (ATROVENT) 500 MCG RTQ2H PRN PRN INH [...] MG TABLET) 17.2 MG BEDTIME PO Ipratropium Eagle (ATROVENT) 500 MCG RTQ4H INH Calcium Chloride [...] guarding Extremities: moves all Musculoskeletal: normal inspection Neuro/INK MAKER: alert, normal speech Skin: dry, intact, normal [...] (Auto) (14.0 - 32.0 %) 5.3 L [place] % (Auto) (4.8 - 9.0 %) 9.8 H Eos % (Auto) (0.3 - 3.7 %) 0.1 L Baso % (Auto) (0.0 - 2.0 %) 0.2 Neut # (Auto) (2.0 - 7.6 x10 3/uL) 18.88 H Lymph # (Auto) (1.0 - 3.8 x10 3/uL) 1.21 [place] # (Auto) (0.1 - 0.8 x10 3/uL) [...] sonographic features of acute cholecystitis. Impression By: LandyJBillieY Frandy Fry M.D. Results: labs reviewed, vital signs [...] documented by RAHUL Tobias. at 1320 at 1957 RPT #:[id number] END OF REPORT [facility] 2023-06-14 10:27:00 [facility] ([facility]) Critical Care Progress Note REPORT#:[id number] REPORT STATUS: Signed REPORT INITIALIZATION DATE:06/14/23 TIME: 102 PATIENT: MINDY CARTER UNIT #: [id number] ROOM/BED: [place] [address] : 54 AGE: 67 SEX: M ATTEND: [...] Glargine (Semglee) 40 UNIT BEDTIME SUBQ Ipratropium Eagle (ATROVENT) 500 MCG RTQ2H PRN PRN INH [...] MG TABLET) 17.2 MG BEDTIME PO Ipratropium Eagle (ATROVENT) 500 MCG RTQ4H INH Calcium Chloride [...] soft, non-tender, no mass/organomegaly Extremities: edema (2+) Neuro/INK MAKER: alert, no motor deficits Results Findings/data: Laboratory [...] (Auto) (14.0 - 32.0 %) 5.3 L [place] % (Auto) (4.8 - 9.0 %) 9.8 H Eos % (Auto) (0.3 - 3.7 %) 0.1 L Baso % (Auto) (0.0 - 2.0 %) 0.2 Neut # (Auto) (2.0 - 7.6 x10 3/uL) 18.88 H Lymph # (Auto) (1.0 - 3.8 x10 3/uL) 1.21 [place] # (Auto) (0.1 - 0.8 x10 3/uL) [...] sounds Extremities no edema, right leg dressed INK MAKER sedated Diagnosis, Assessment Plan Free text A P: Multivessel CAD s/p CABG x 3 (COSTA-LAD, SVG-Diag, SVG-OM) ALAA Postoperative respiratory insufficiency following cardiac surgery Postoperative pain Shock Leukocytosis Liver cirrhosis EtOH dependence Increasing LFTs with underlying liver cirrhosis. Plan: INK MAKER: Awake and alert. No signs and symptoms [...] patient Discussion included: living will, power of corporate attorney, code status at 1037 RPT #:[id number] END OF REPORT [facility] 2023-06-14 09:31:00 [facility] ([facility]) Hospitalist Progress Note REPORT#:[id number] REPORT STATUS: Signed REPORT INITIALIZATION DATE:06/14/23 TIME: 930 PATIENT: MINDY CARTER UNIT #: [id number] ROOM/BED: [place] [address] : 54 AGE: 67 SEX: M ATTEND: [...] 96 60 06/13 0314 96 BiPAP 60 03/18 0300 118/56 76 03/18 0300 75 30 117/61 76 96 03/18 [...] 88 95 03/17 2013 73 95 60 03/17 2013 95 BiPAP 60 03/17 1999 97.6 03/17 2000 109/66 79 03/17 2000 73 28 [...] Glargine (Semglee) 40 UNIT BEDTIME SUBQ Ipratropium Eagle (ATROVENT) 500 MCG RTQ2H PRN PRN INH [...] MG TABLET) 17.2 MG BEDTIME PO Ipratropium Eagle (ATROVENT) 500 MCG RTQ4H INH Calcium Chloride [...] soft Extremities: edema, no clubbing, no cyanosis Neuro/INK MAKER: alert, oriented X 3, CNII-XII intact Skin: dry, intact, no rash Psychiatry: normal affect Results Findings/Data: Laboratory Tests 06/13 06/12 0356 1 Blood Gas Puncture Site Art Line Art [...] 06/13 06/13 06/13 06/13 1223 0741 0458 0456 Chemistry Sodium (134 - 147 mEq/L) 129 [...] (Auto) (14.0 - 32.0 %) 5.3 L [place] % (Auto) (4.8 - 9.0 %) 9.8 H Eos % (Auto) (0.3 - 3.7 %) 0.1 L Baso % (Auto) (0.0 - 2.0 %) 0.2 Neut # (Auto) (2.0 - 7.6 x10 3/uL) 18.88 H Lymph # (Auto) (1.0 - 3.8 x10 3/uL) 1.21 [place] # (Auto) (0.1 - 0.8 x10 3/uL) [...] Monitor and defer to further management to [facility] Leukocytosis improving Abnormal LFTs: -cholelithiasis with distended GB on US Diabetes mellitus A1c 8.4% Insulin drip, transition to Sliding scale insulin as needed, long acting insulin as per [facility] Hypertension Renew medications once they have been updated in the computer Now on pressors for hypotension Check labs in the a.m. Patient does not have a living will or medical power of corporate attorney Patient is a full code 06/01 [...] patient Discussion included: living will, power of corporate attorney, code status at 1553 RPT #:[id number] END OF REPORT [facility] 2023-06-13 13:32:00 [facility] ([facility]) Critical Care Progress Note REPORT#:[id number] REPORT STATUS: Signed REPORT INITIALIZATION DATE:06/13/23 TIME: 1331 PATIENT: MINDY CARTER UNIT #: [id number] ROOM/BED: [place] [address] : 54 AGE: 67 SEX: M ATTEND: Kimmie Bacon MD ADM AUTHOR: Dora Resendez MD REPT SERVICE DT/TIME: 06/13/23 1332 * ALL edits or amendments must be made on the electronic/computer document * Subjective Chief complaint: CABG x 3 (COSTA-LAD, SVG-Diag, SVG-OM) EVH (RGSV) MATHIEU PP HPI: This is a 67-year-old male [...] Ox 95 06/12 899 Pulse 80 06/12 0900 Resp 23 06/12 899 FiO2 60 06/12 0741 O2 Delivery BiPAP [...] soft, non-tender, no mass/organomegaly Extremities: edema (2+) Neuro/INK MAKER: alert, no motor deficits Results Findings/data: Laboratory [...] 06/12 06/12 06/12 1247 1157 0944 0936 0760 Chemistry POC Creatinine (0.8 - 1.3 mg/dL) [...] (Auto) (14.0 - 32.0 %) 3.0 L [place] % (Auto) (4.8 - 9.0 %) 10.6 H Eos % (Auto) (0.3 - 3.7 %) 0.0 L Baso % (Auto) (0.0 - 2.0 %) 0.1 Neut # (Auto) (2.0 - 7.6 x10 3/uL) 21.31 H Lymph # (Auto) (1.0 - 3.8 x10 3/uL) 0.74 L [place] # (Auto) (0.1 - 0.8 x10 3/uL) [...] 06/13/23 0308: [Embedded Image Not Available] 06/12/23 220: [Embedded Image Not Available] Microbiology: 06/09 153 NASAL: MSSA Surveillance Screen - COMP 06/09 1538 NASAL: MRSA DNA Surveillance Screen - COMP Free Text Obj Notes Free Text Obj Notes: Middle-age male intubated on mechanical ventilation Pupil equal reactive to light Neck supple Chest with sternotomy dressing, [address] Heart S1-S2 Abdomen soft, could not appreciate bowel sounds Extremities no edema, right leg dressed INK MAKER sedated Diagnosis, Assessment Plan Free text A P: Multivessel CAD s/p CABG x 3 (COSTA-LAD, SVG-Diag, SVG-OM) ALAA Postoperative respiratory insufficiency following cardiac surgery Postoperative pain Shock Leukocytosis Liver cirrhosis EtOH dependence Plan: INK MAKER: Awake and alert. Pain management with as [...] this morning for respiratory distress. Currently on 14/6 FiO2 60%. He is comfortable. Will hopefully [...] minutes. Consultants: cardiology, cardiovascular surgery Quality: Gen [facility] Crit Care VTE Prophylaxis VTE prophylaxis initiated: yes Current Medications Current medication review: I attest that the foregoing medication list in the medical record is true, accurate, and complete to the best of my knowledge. Advanced Care Plan 65 or Older Discussed with: patient Discussion included: living will, power of corporate attorney, code status at 1341 RPT #:[id number] END OF REPORT [facility] 2023-06-13 11:31:00 [facility] Cardiothoracic Surgery Prog REPORT#:[id number] REPORT STATUS: Signed REPORT INITIALIZATION DATE:06/13/23 TIME: 113 PATIENT: MINDY CARTER UNIT #: [id number] ROOM/BED: [place] [address] : 54 AGE: 67 SEX: M ATTEND: [...] patient Discussion included: living will, power of corporate attorney, code status Current Medications Current medication [...] diagnosed. Patient does not live local to [place]. Will consult gastroenterology to see patient. -EtOH cessation 3. Chronic kidney disease -Patient does not live local to [place]. Will consult nephrology to see patient. Patient [...] disease Patient was seen and examined at [facility]. Plan of care discussed with multidisciplinary [...] CRRT. Patient was seen and examined at [facility]. Plan of care discussed with multidisciplinary team Nephrology following. Appreciate input Continue supportive care, Consultants: cardiology, cardiovascular surgery at 1136 at 2003 RPT #:[id number] END OF REPORT [facility] 2023-06-13 11:28:00 [facility] ([facility] Nephrology Progress Note REPORT#:[id number] REPORT STATUS: Signed REPORT INITIALIZATION DATE:06/13/23 TIME: 1127 PATIENT: MINDY CARTER UNIT #: [id number] ROOM/BED: [place] [address] : 54 AGE: 67 SEX: M ATTEND: [...] 06/12 0915 37.1 06/12 0900 109/70 84 03/ 0900 80 23 115/61 76 95 /17 0830 106/70 83 03/17 0830 80 23 114/62 77 95 /17 0800 104/66 80 03/ 0800 79 24 107/57 72 95 / 0741 BiPAP 60 / 0730 95/68 76 / 0730 79 29 87/72 80 95 /17 0716 108/60 78 03/ 0716 79 26 104/55 69 95 /17 0700 102/65 77 03/17 0700 79 36 [...] 03/16 2019 75 31 120/58 73 100 /16 1999 36.7 06/12 1999 Nasal 12 cannula [...] 06/11 1501 80 34 123/56 73 95 03/16 [...] Consultants: cardiology, cardiovascular surgery at 1131 RPT #:[id number] END OF REPORT [facility] 2023-06-13 10:52:00 [id number] [place] [address] PATIENT NAME: MINDY CARTER ADMIT DATE: 05/31/23 ACCOUNT NO: [id number] ROOM NO: [facility] AGE: 67 REPORT TYPE: eECHOCARDIOGRAM REPORT SEX: M ADMITTING PHYSICIAN:Eleonora Mai MD ATTENDING PHYSICIAN:Kimmie Bacon MD *[place] [address] Transthoracic Echocardiogram Patient: Mindy Carter Study Date: 06/13/2023 BP: 110 / 59 URN: [id number] Location: : 1955 Age: 67 Gender: M Height: 68.9 in / 175 cm Weight: 242.5 lb / 110 kg BMI/BSA: 35.9 kg/m 2 / 2.35 m 2 *Ordering Physician: * Jeremiah Martel MD *Interpreting Physician: * Geovani Hogan MD *Recycling Center Operator: * Dominic Hadley Indications: R/O EFFUSION. Study [...] 10:52 at 1052 PATIENT NAME: MINDY CARTER [facility] 2023-06-13 10:27:00 [facility] Cardiology Progress Note REPORT#:[id number] REPORT STATUS: Signed REPORT INITIALIZATION DATE:06/13/23 TIME: 1026 PATIENT: MINDY CARTER UNIT #: [id number] ROOM/BED: [place] [address] : 54 AGE: 67 SEX: M ATTEND: Kimmie Bacon MD ADM AUTHOR: Geovani Hogan MD REPT SERVICE DT/TIME: 06/13/23 1027 * ALL edits or amendments must be made on the electronic/computer document * Objective General VS/I O: 24 hour I O ending at 0700: 06/12 0706/11 1900 Intake Total 385 Output Total 490 625 Balance -490 -240 Intake, Oral 385 Output, Chest 340 290 Tube Drainage Output, Urine 150 335 Patient 114.5 kg 109.769 kg Weight Weight Standing scale Measurement Method Vital Signs: Date Time Temp Pulse Resp B/P B/P Pulse O2 O2 Flow FiO2 Mean Ox Delivery Rate 06/12 0815 37.1 06/12 0900 109/70 84 06/12 0900 80 23 115/61 76 95 06/12 0830 106/70 83 06/12 0830 80 23 114/62 77 95 06/12 0800 104/66 80 06/12 0800 79 24 107/57 72 95 06/12 0741 BiPAP 60 06/12 0730 95/68 76 06/12 0730 79 29 87/72 80 95 06/12 0716 108/60 78 / 0716 79 26 104/55 69 95 06/12 0700 102/65 77 06/12 0700 79 36 114/58 73 95 06/12 0645 98/64 75 06/12 0645 79 35 113/56 71 92 06/12 0639 99/66 76 06/12 0639 78 36 111/54 69 86 03/17 [...] Nasal 12 cannula 03/16 2000 101/59 76 03/16 2000 76 32 117/56 [...] 03/16 1540 82 36 111/51 67 93 /16 1530 81 33 121/54 73 94 06/11 1508 94 High flow 10 nasal cannula 06/11 1501 80 34 123/56 73 95 16 1420 80 36 122/55 72 95 /16 1400 97/65 76 03/16 1400 81 30 127/59 76 93 /16 1340 79 23 127/55 72 97 /16 1330 79 23 121/53 69 95 /16 1300 80 35 113/60 76 91 03/16 1230 80 30 124/56 74 95 /16 1200 99/56 69 /16 1200 79 34 123/56 74 93 /16 1136 97 High flow 12 nasal cannula 06/11 1120 79 33 124/54 72 95 /16 1100 102/59 73 /16 1100 77 26 139/59 78 95 06/11 1037 74 33 108/57 77 94 PATIENT WEIGHT: Weight (lb): 252 Weight (oz): 6.87 Weight (kg): 114.500 Medications: Active Meds + DC'd Last 24 Hrs Ipratropium Eagle (ATROVENT) 500 MCG RTQ2H PRN PRN INH [...] MG TABLET) 17.2 MG BEDTIME PO Ipratropium Eagle (ATROVENT) 500 MCG RTQ4H INH Acetaminophen (TYLENOL) [...] no mass/organomegaly, no pulsatile mass, no rebound Neuro/INK MAKER: no motor deficits Results Findings/Data: Laboratory Tests [...] (Auto) (14.0 - 32.0 %) 3.0 L [place] % (Auto) (4.8 - 9.0 %) 10.6 H Eos % (Auto) (0.3 - 3.7 %) 0.0 L Baso % (Auto) (0.0 - 2.0 %) 0.1 Neut # (Auto) (2.0 - 7.6 x10 3/uL) 21.31 H Lymph # (Auto) (1.0 - 3.8 x10 3/uL) 0.74 L [place] # (Auto) (0.1 - 0.8 x10 3/uL) [...] walked unit with PT discussed with nurse 3 17 post cabg sitting in chair no arrythmias stable hemodynamics discussed with cvicu nurse at 1029 RPT #:[id number] END OF REPORT [facility] 2023-06-13 09:14:00 [facility] ([facility]) Hospitalist Progress Note REPORT#:[id number] REPORT STATUS: Signed REPORT INITIALIZATION DATE:06/13/23 TIME: 913 PATIENT: MINDY CARTER UNIT #: [id number] ROOM/BED: [place] [address] : 54 AGE: 67 SEX: M ATTEND: [...] Ox Delivery Rate 06/12 0815 98.8 06/12 09 109/70 84 06/12 0900 80 23 115/61 76 95 06/12 0830 106/70 83 06/12 0830 80 23 114/62 77 95 06/12 0800 104/66 80 06/12 0800 79 24 107/57 72 95 06/12 0741 BiPAP 60 06/12 0730 95/68 76 03/17 0730 79 29 [...] 12 cannula 03/16 1999 101/59 76 03/16 1999 76 32 117/56 71 99 03/16 1940 98/53 69 03/16 1940 75 24 122/58 73 100 03/16 1930 77 34 120/57 73 98 03/16 1925 100 High flow 8 nasal cannula 03/16 1920 96/54 70 03/16 1920 75 23 121/57 73 97 03/16 1900 94/54 67 06/11 1900 75 22 124/60 75 100 /16 1800 98/54 70 06/11 1800 79 32 [...] Meds + DC'd Last 24 Hrs Ipratropium Eagle (ATROVENT) 500 MCG RTQ2H PRN PRN INH [...] MG TABLET) 17.2 MG BEDTIME PO Ipratropium Eagle (ATROVENT) 500 MCG RTQ4H INH Albumin Human [...] soft Extremities: edema, no clubbing, no cyanosis Neuro/INK MAKER: alert, oriented X 3, CNII-XII intact Skin: [...] (Auto) (14.0 - 32.0 %) 3.0 L [place] % (Auto) (4.8 - 9.0 %) 10.6 H Eos % (Auto) (0.3 - 3.7 %) 0.0 L Baso % (Auto) (0.0 - 2.0 %) 0.1 Neut # (Auto) (2.0 - 7.6 x10 3/uL) 21.31 H Lymph # (Auto) (1.0 - 3.8 x10 3/uL) 0.74 L [place] # (Auto) (0.1 - 0.8 x10 3/uL) [...] Report Impression - Status: SIGNED Entered: 06/13/2023 2344 IMPRESSION: 1. Lines and tubes, as above. [...] a living will or medical power of corporate attorney Patient is a full code 06/01 [...] patient Discussion included: living will, power of corporate attorney, code status at 1550 [facility] #:[id number] END OF REPORT [facility] 2023-06-13 03:56:00 [phone] [place] [address] PATIENT NAME: MINDY CARTER ADMIT DATE: 05/31/23 ACCOUNT NO: [id number] ROOM NO: G.2202 AGE: 67 REPORT TYPE: eELECTROCARDIOGRAM REPORT SEX: M ADMITTING PHYSICIAN:Eleonora Mai MD ATTENDING PHYSICIAN:Kimmie Bacon MD Order: [id number] Test Reason : POD2 Test Date/Time Stamp: WedJun 13 2023 03:56:15 Blood Pressure : / mmHG Vent. Rate : 086 BPM Atrial Rate : 086 BPM P-R Int : 094 ms QRS Dur : 142 ms QT Int : 410 ms P-R-T Axes : 028 -69 053 degrees QTc Int : 490 ms Sinus rhythm with short [place] Left axis deviation Right bundle branch block Inferior infarct , new Anteroseptal infarct (cited on or before 31-MAY-2023) Abnormal ECG When compared with ECG of 12-JUN-2023 02:19, Significant changes have occurred Confirmed by TAO CARMEN MD ([id number]) on 06/14/2023 8:36:33 AM Referred By: Self Referred Confirmed by:TAO CARMEN MD at 0836 PATIENT NAME: MINDY CARTER [facility] 2023-06-12 19:34:00 [facility] Nephrology Progress Note REPORT#:[id number] REPORT STATUS: Signed REPORT INITIALIZATION DATE:06/12/23 TIME: 1933 PATIENT: MINDY CARTER UNIT #: [id number] ROOM/BED: [place] [address] : 54 AGE: 67 SEX: M ATTEND: [...] Nasal 12 cannula 06/12 1999 101/59 76 06/12 1999 76 32 117/56 71 99 /16 1940 98/53 69 /16 1940 75 24 122/58 73 100 03/16 1930 77 34 120/57 73 98 /16 1925 100 High flow 8 nasal cannula 06/11 1920 96/54 70 03/16 1920 75 23 121/57 73 97 /16 1900 94/54 67 /16 1900 75 22 124/60 75 100 03/16 1800 98/54 70 /16 1800 79 32 121/57 73 95 /16 1730 80 34 128/60 78 94 /16 1700 103/57 74 03/16 1640 81 35 129/59 76 94 /16 1630 80 31 113/51 67 93 /16 1600 92/51 65 /16 1540 82 36 111/51 67 93 /16 1530 81 33 121/54 73 94 /16 1508 94 High flow 10 nasal cannula 06/11 1501 80 34 123/56 73 95 /16 1420 80 36 122/55 72 95 /16 1400 97/65 76 / 1400 81 30 127/59 76 93 /16 1340 79 23 127/55 72 97 /16 1330 79 23 121/53 69 95 /16 1300 80 35 113/60 76 91 /16 1230 80 30 124/56 74 95 /16 1200 99/56 69 /16 1200 79 34 123/56 74 93 /16 1136 97 High flow 12 nasal cannula [...] Consultants: cardiology, cardiovascular surgery at 1104 RPT #:[id number] END OF REPORT [facility] 2023-06-12 14:00:00 [id number] [address] PATIENT NAME: MINDY CARTER ADMIT DATE: 05/31/23 ACCOUNT NO: [id number] ROOM NO: [facility] AGE: 67 REPORT TYPE: OPERATIVE REPORT SEX: [...] 4. Posterior pericardiotomy. SURGEON: Jeremiah Martel M.D. WATER VALVE REPAIRER: Seven Bradshaw. ANESTHESIOLOGIST: Dr. Berg. ANESTHESIA: General endotracheal anesthesia. ESTIMATED BLOOD LOSS: 100 mL. INDICATIONS: Mr. Carter is a 63-year-old gentleman with severe triple-vessel coronary artery disease and liver cirrhosis, chronic kidney disease, who presented to the hospital with chest pain. He was ruled in for non-ST elevation MO. Coronary angiogram showed severe coronary artery disease. [...] in size. Arteriotomy was performed with a Hancock blade and extended with Pulido scissors. A [...] mm size. Arteriotomy was performed with a Hancock blade and extended with Pulido scissors. A [...] in size. Arteriotomy was performed with a Hancock blade and extended with Pulido scissors. COSTA was anastomosed in end-to-side manner using running 8-0 Prolene suture. COSTA pedicle tacked to epicardium using two interrupted 6-0 Prolene suture. A slit was made in the pericardium, left aspect, so as to accommodate the COSTA. Careful de-aeration was performed and the crossclamp was released. One ventricular wire was placed. A 28-Argentine chest tube was placed in the mediastinum and 28-Argentine angled chest tube was placed in the [...] Dictated: 06/12/2023 14:00:12 Date Transcribed: 06/12/2023 18:30:11 /[facility] Receipt ID: [id number] Authenticated and Edited by Nathaniel Martel MD On 06/13/23 6:28:19 AM at 0631 PATIENT NAME: MINDY CARTER [facility] 2023-06-12 10:54:00 [facility] Cardiology Progress Note REPORT#:[id number] REPORT STATUS: Signed REPORT INITIALIZATION DATE:06/12/23 TIME: 105 PATIENT: MINDY CARTER UNIT #: [id number] ROOM/BED: [place] [address] : 54 AGE: 67 SEX: M ATTEND: [...] 03/15 2111 92 35 131/56 78 95 03/2100 126/71 94 06/10 2100 91 42 137/54 79 97 06/10 2100 High flow 12 nasal cannula 06/10 2099 [...] Meds + DC'd Last 24 Hrs Ipratropium Eagle (ATROVENT) 500 MCG RTQ2H PRN PRN INH [...] (SUBLIMAZE) 0 .STK-MED ONE IV (DC) Ipratropium Eagle (ATROVENT) 500 MCG RTQ4H INH Acetaminophen (TYLENOL) [...] (ZOFRAN) 0 .STK-MED ONE .ROUTE (DC) Rocuronium Eagle (ZEMURON) 0 .STK-MED ONE IV (DC) Albumin [...] no mass/organomegaly, no pulsatile mass, no rebound Neuro/INK MAKER: no motor deficits Results Findings/Data: Laboratory Tests 06/11 06/11 06/11 06/10 0632 0400 0240 3014 Blood Gas Puncture Site Art Line PA [...] Pressure Support (cmH2O) 12 06/10 2139 2100 1955 1906 Blood Gas Puncture Site Art Line [...] 06/11 06/11 06/10 0632 0400 0245 0209 5132 Chemistry Sodium (134 - 147 mEq/L) 138 [...] - 32.0 %) 2.1 L 7.8 L [place] % (Auto) (4.8 - 9.0 %) 8.0 4.0 L Eos % (Auto) (0.3 - 3.7 %) 0.1 L 1.2 Baso % (Auto) (0.0 - 2.0 %) 0.3 0.6 Neut # (Auto) (2.0 - 7.6 x10 3/uL) 24.24 H 29.79 H Lymph # (Auto) (1.0 - 3.8 x10 3/uL) 0.57 L 2.77 [place] # (Auto) (0.1 - 0.8 x10 3/uL) [...] 0.1 x10 3/uL) 0.00 0.00 Laboratory Tests 06/117 Chemistry Magnesium (1.6 - 2.6 mg/dL) 2.41 [...] postoperative appearance of the chest. Impression By: Alla Trimble M.D. RADIOLOGY - XR CHEST 1 V 06/12 0732 Report Impression - Status: SIGNED Entered: 06/12/2023 0855 IMPRESSION: 1. Status post endotracheal tube removal. [...] PT discussed with nurse at 1058 RPT #:[id number] END OF REPORT [facility] 2023-06-12 09:53:00 [facility] ([facility]) Critical Care Progress Note REPORT#:[id number] REPORT STATUS: Signed REPORT INITIALIZATION DATE:06/12/23 TIME: 952 PATIENT: MINDY CARTER UNIT #: [id number] ROOM/BED: [place] [address] : 54 AGE: 67 SEX: M ATTEND: Kimmie Bacon MD ADM AUTHOR: Dora Resendez MD REPT SERVICE DT/TIME: 06/12/23 0953 * ALL edits or amendments must be [...] Result Date Time Pulse Ox 96 06/11 07 B/P 111/45 06/11 07 B/P Mean 63 06/11 0701 Pulse 77 06/11 0701 Resp 33 06/11 [...] soft, non-tender, no mass/organomegaly Extremities: edema (2+) Neuro/INK MAKER: alert, no motor deficits Results Findings/data: Laboratory [...] Pressure Support (cmH2O) 12 06/10 2139 2100 1955 1906 Blood Gas Puncture Site Art Line [...] 06/10 06/10 06/10 2308 2139 2131 2100 2046 Chemistry Sodium (134 - 147 [...] 180 H 218 H Laboratory Tests 06/11 06/10 06/10 06/10 06/10 0209 2046 1951 1908 1847 Coagulation INR (0.8 - 1.2) 1.2 1.3 H PTT (Wirt) (25.0 - 39.5 Seconds) 31.2 35.8 PT Patient/Control Mix (9.3 - 12.9 13.2 H 14.2 H SECONDS) Activated Coag Time (74 - 137 SEC) 141 H 590 H 650 H 06/10 06/10 181 1751 Coagulation Activated Coag Time (74 - [...] - 32.0 %) 2.1 L 7.8 L [place] % (Auto) (4.8 - 9.0 %) 8.0 4.0 L Eos % (Auto) (0.3 - 3.7 %) 0.1 L 1.2 Baso % (Auto) (0.0 - 2.0 %) 0.3 0.6 Neut # (Auto) (2.0 - 7.6 x10 3/uL) 24.24 H 29.79 H Lymph # (Auto) (1.0 - 3.8 x10 3/uL) 0.57 L 2.77 [place] # (Auto) (0.1 - 0.8 x10 3/uL) [...] 0.1 x10 3/uL) 0.00 0.00 Laboratory Tests 06/12/23208: [Embedded Image Not Available] 06/11/232046: [Embedded Image Not Available] Microbiology: 06/09 1539 NASAL: MSSA Surveillance Screen - COMP 06/09 [...] appearance of the chest. Impression By: [email or web address] Frandy Trimble M.D. RADIOLOGY - XR CHEST 1 V 06/11 0832 Report Impression - Status: SIGNED Entered: 06/12/2023 08 IMPRESSION: 1. Status post endotracheal tube removal. No other significant change. Impression By: Phoenix Aaron M.D. Free Text Obj Notes Free Text Obj Notes: Middle-age male intubated on mechanical ventilation Pupil equal reactive to light Neck supple Chest with sternotomy dressing, [address] Heart S1-S2 Abdomen soft, could not appreciate bowel sounds Extremities no edema, right leg dressed INK MAKER sedated Diagnosis, Assessment Plan Free text A P: Multivessel CAD s/p CABG x 3 (COSTA-LAD, SVG-Diag, SVG-OM) ALAA Postoperative respiratory insufficiency following cardiac surgery Postoperative pain Shock Leukocytosis Liver cirrhosis EtOH dependence Plan: INK MAKER: Awake and alert. Pain management with as [...] minutes. Consultants: cardiology, cardiovascular surgery Quality: Gen [facility] Crit Care VTE Prophylaxis VTE prophylaxis initiated: yes Current Medications Current medication review: I attest that the foregoing medication list in the medical record is true, accurate, and complete to the best of my knowledge. Advanced Care Plan 65 or Older Discussed with: patient Discussion included: living will, power of corporate attorney, code status at 1009 RPT #:[id number] END OF REPORT [facility] 2023-06-12 09:36:00 [facility] Hospitalist Progress Note REPORT#:[id number] REPORT STATUS: Signed REPORT INITIALIZATION DATE:06/12/23 TIME: 935 PATIENT: MINDY CARTER UNIT #: [id number] ROOM/BED: [place] [address] : 54 AGE: 67 SEX: M ATTEND: Kimmie Bacon MD ADM AUTHOR: Kimmie Bacon MD REPT SERVICE DT/TIME: 06/12/2336 * ALL edits or amendments must be [...] 03/15 2241 100 28 94/47 60 93 / 2240 90/55 68 / 2240 100 28 96/49 62 94 06/10 2220 94/55 67 06/10 2220 100 30 103/52 66 94 / 2211 98 23 105/51 66 95 06/10 2200 95/55 70 / 2200 99 33 109/54 70 92 06/10 2145 97 High flow 12 68 nasal cannula 06/10 2140 97 33 111/55 71 93 06/10 2140 96/54 69 06/10 2140 96 23 109/54 70 93 06/101 94/57 69 06/101 93 29 110/55 70 93 06/10 2111 92 35 131/56 78 95 06/10 2101 126/71 94 06/10 2101 91 42 137/54 79 97 06/10 2100 High flow 12 nasal cannula 06/10 2100 91 36 139/51 98 06/10 2043 108/57 77 06/10 2043 82 121/54 73 89 06/10 2040 91 Ventilator 100 06/100 81 91 100 24 hour I O [...] Meds + DC'd Last 24 Hrs Ipratropium Eagle (ATROVENT) 500 MCG RTQ2H PRN PRN INH [...] (SUBLIMAZE) 0 .STK-MED ONE IV (DC) Ipratropium Eagle (ATROVENT) 500 MCG RTQ4H INH Acetaminophen (TYLENOL) [...] soft Extremities: edema, no clubbing, no cyanosis Neuro/INK MAKER: alert, oriented X 3, CNII-XII intact Skin: [...] Pressure Support (cmH2O) 12 06/10 2139 2100 1955 1906 Blood Gas Puncture Site Art Line [...] (3.4 - 5.0 g/dL) 3.10 L 06/10 Chemistry Sodium (134 - 147 mEq/L) 137 [...] (1.6 - 2.6 mg/dL) 2.81 H 06/10 181 1750 Chemistry POC Creatinine (0.8 - 1.3 mg/dL) 0.9 0.8 0.7 L 0.6 L POC Glucose (mg/dL) (70 - 110 MG/DL) 202 H 172 H 143 H 128 H Laboratory Tests 06/11 Coagulation INR (0.8 - 1.2) 1.2 1.3 H PTT (Wirt) (25.0 - 39.5 Seconds) 31.2 35.8 PT [...] - 32.0 %) 2.1 L 7.8 L [place] % (Auto) (4.8 - 9.0 %) 8.0 4.0 L Eos % (Auto) (0.3 - 3.7 %) 0.1 L 1.2 Baso % (Auto) (0.0 - 2.0 %) 0.3 0.6 Neut # (Auto) (2.0 - 7.6 x10 3/uL) 24.24 H 29.79 H Lymph # (Auto) (1.0 - 3.8 x10 3/uL) 0.57 L 2.77 [place] # (Auto) (0.1 - 0.8 x10 3/uL) [...] appearance of the chest. Impression By: [email or web address] Frandy Trimble M.D. RADIOLOGY - XR CHEST [...] Chest tube in place Cardiology, CT surgery, [facility] on board Leukocytosis: Likely reactive Monitor and defer to further management to ICC Diabetes mellitus A1c 8.4% Sliding scale insulin as needed Hypertension Renew medications once they have been updated in the computer Check labs in the a.m. Patient does not have a living will or medical power of corporate attorney Patient is a full code 06/01 [...] patient Discussion included: living will, power of corporate attorney, code status at 1635 RPT #:[id number] END OF REPORT [facility] 2023-06-12 05:57:00 [facility] ([facility]) Cardiothoracic Surgery Prog REPORT#:[id number] REPORT STATUS: Signed REPORT INITIALIZATION DATE:06/12/23 TIME: 556 PATIENT: MINDY CARTER UNIT #: [id number] ROOM/BED: 2202 : 54 AGE: 67 SEX: M ATTEND: Kimmie Bcaon MD ADM AUTHOR: Johnna Pablo Physic REPT [...] patient Discussion included: living will, power of corporate attorney, code status Current Medications Current medication [...] diagnosed. Patient does not live local to [place]. Will consult gastroenterology to see patient. -EtOH cessation 3. Chronic kidney disease -Patient does not live local to [place]. Will consult nephrology to see patient. Patient [...] disease Patient was seen and examined at [facility]. Plan of care discussed with multidisciplinary team Consultants: cardiology, cardiovascular surgery at 1412 at 0732 RPT #:[id number] END OF REPORT [facility] 2023-06-12 02:19:00 [id number] [address] PATIENT NAME: MINDY CARTER ADMIT DATE: 05/31/23 ACCOUNT NO: [id number] ROOM NO: [facility] AGE: 67 REPORT TYPE: eELECTROCARDIOGRAM REPORT SEX: M ADMITTING PHYSICIAN:Eleonora Mai MD ATTENDING PHYSICIAN:Kimmie Bacon MD Order: [id number] Test Reason : pod 1 Test Date/Time [...] Nathan at 1035 PATIENT NAME: MINDY CARTER [facility] 2023-06-11 22:27:00 [id number] [place] [address] PATIENT NAME: MINDY CARTER ADMIT DATE: 05/31/23 ACCOUNT NO: [id number] ROOM NO: G.2202 AGE: 67 REPORT TYPE: eELECTROCARDIOGRAM REPORT SEX: M ADMITTING PHYSICIAN:Eleonora Mai MD ATTENDING PHYSICIAN:Denise Montejo MD Order: [id number] Test Reason : pod 0 Test Date/Time [...] Nathan at 0551 PATIENT NAME: MINDY CARTER [facility] 2023-06-11 21:31:00 [facility] ([facility]) Critical Care Consult Note REPORT#:[id number] REPORT STATUS: Signed REPORT INITIALIZATION DATE:06/11/23 TIME: 2130 PATIENT: MINDY CARTER UNIT #: [id number] ROOM/BED: [place] [address] : 54 AGE: 67 SEX: M ATTEND: Kimmie Bacon MD ADM AUTHOR: Kareem Mcdonnell MD REPT SERVICE DT/TIME: 06/11/232130 * ALL edits or amendments must be made on the electronic/computer document * History of Present Illness HPI Requesting clinician: Dr Martel Reason for consult: Critical care management Chief complaint: CABG x 3 (COSTA-LAD, SVG-Diag, SVG-OM) EVH (RGSV) MATHIEU PP PCP: PCP: No Primary or Family Physician [...] Mean 89.2 06/10 1122 Temp 36.7 06/10 112 Resp 18 06/10 1123 24 hour I [...] Meds + DC'd Last 24 Hrs Ipratropium Eagle (ATROVENT) 500 MCG RTQ2H PRN PRN INH [...] (SUBLIMAZE) 0 .STK-MED ONE IV (DC) Ipratropium Eagle (ATROVENT) 500 MCG RTQ4H INH Acetaminophen (TYLENOL) [...] (ZOFRAN) 0 .STK-MED ONE .ROUTE (DC) Rocuronium Eagle (ZEMURON) 0 .STK-MED ONE IV (DC) Albumin [...] Tests 06/10 06/10 06/10 06/10 06/10 2100 7 1954 1906 1845 Chemistry Sodium (134 - [...] - 32.0 %) 7.8 L 8.5 L [place] % (Auto) (4.8 - 9.0 %) 4.0 L 12.6 H Eos % (Auto) (0.3 - 3.7 %) 1.2 3.6 Baso % (Auto) (0.0 - 2.0 %) 0.6 0.7 Neut # (Auto) (2.0 - 7.6 x10 3/uL) 29.79 H 5.26 Lymph # (Auto) (1.0 - 3.8 x10 3/uL) 2.77 0.61 L [place] # (Auto) (0.1 - 0.8 x10 3/uL) [...] Impressions: RADIOLOGY - XR CHEST 1 V 06/11 927 Report Impression - Status: SIGNED Entered: 06/11/202343 IMPRESSION: Cardiomegaly with diffuse congestive changes bilaterally. Impression By: 16 - Gabrielle Jean M.D. RADIOLOGY - XR [...] the OR nurse and anesthesiologist. Impression By: [email or web address] - Irwin Aaron M.D. Free Text Obj Notes Free Text Obj Notes: Middle-age male intubated on mechanical ventilation Pupil equal reactive to light Neck supple Chest with sternotomy dressing, [address] Heart S1-S2 Abdomen soft, could not appreciate bowel sounds Extremities no edema, right leg dressed INK MAKER sedated Diagnosis, Assessment Plan Free text DxA [...] excluding a procedure time. at 0723 RPT #:[id number] END OF REPORT [facility] 2023-06-11 20:05:00 [facility] ([facility]) Brief Op Note REPORT#:[id number] REPORT STATUS: Signed REPORT INITIALIZATION DATE:06/11/23 TIME: 2004 PATIENT: MINDY CARTER UNIT #: [id number] ROOM/BED: [place] [address] : 54 AGE: 67 SEX: M ATTEND: Kimmie Bacon MD ADM AUTHOR: Nathaniel Martel MD REPT SERVICE DT/TIME: 06/11/232004 * ALL edits or amendments must be made on the electronic/computer document * Op/Inv Proc Note - Brief Pre-procedure diagnosis: CAD Post-procedure diagnosis: same as pre procedure dx Procedures performed: CABG x 3 (COSTA-LAD, SVG-Diag, SVG-OM) EVH (RGSV) MATHIEU PP Primary Surgeon: Tahmina Meat Cutter Apprentice(s): Seven Bradshaw Findings: LAD-2mm Complications: none Estimated blood loss in ml's: 100 cc Specimens removed/altered: SEFERINO at 0732 RPT #:[id number] END OF REPORT [facility] 2023-06-11 13:06:00 [facility] ([facility]) Gastroenterology Progress Note REPORT#:[id number] REPORT STATUS: Signed REPORT INITIALIZATION DATE:06/11/23 TIME: 1305 PATIENT: MINDY CARTER UNIT #: [id number] ROOM/BED: [place] [address] : 54 AGE: 67 SEX: M ATTEND: [...] (ZOFRAN) 0 .STK-MED ONE .ROUTE (DC) Rocuronium Eagle (ZEMURON) 0 .STK-MED ONE IV (DC) Albumin [...] 0 .STK-MED ONE IV (DC) Phenylephrine HCl (MMEE-SYNEPHRINE 10MG/ML AMP) 0 .STK-MED ONE .ROUTE (DC [...] guarding Extremities: moves all Musculoskeletal: normal inspection Neuro/INK MAKER: alert, oriented X 3, normal speech Skin: [...] (Auto) (14.0 - 32.0 %) 8.5 L [place] % (Auto) (4.8 - 9.0 %) 12.6 H Eos % (Auto) (0.3 - 3.7 %) 3.6 Baso % (Auto) (0.0 - 2.0 %) 0.7 Neut # (Auto) (2.0 - 7.6 x10 3/uL) 5.26 Lymph # (Auto) (1.0 - 3.8 x10 3/uL) 0.61 L [place] # (Auto) (0.1 - 0.8 x10 3/uL) [...] RADIOLOGY - XR CHEST 1 V 06/10 0928 Report Impression - Status: SIGNED Entered: 06/11/2023 [...] Attestation needed: supervising physician Rigoberto Jarrell 06/11/23 2703: Attestations Physician Attestation Agree w/findings plan: Agree with the findings and plan as documented by RAHUL Tobias. at 1556 at 5517 RPT #:[id number] END OF REPORT [facility] 2023-06-11 12:59:00 [facility] Hospitalist Progress Note REPORT#:[id number] REPORT STATUS: Signed REPORT INITIALIZATION DATE:06/11/23 TIME: 1258 PATIENT: MINDY CARTER UNIT #: [id number] ROOM/BED: [place] [address] : 54 AGE: 67 SEX: M ATTEND: [...] distention Extremities: edema, no clubbing, no cyanosis Neuro/INK MAKER: alert, oriented X 3, CNII-XII intact Skin: [...] Coagulation INR (0.8 - 1.2) 1.1 PTT (Wirt) (25.0 - 39.5 Seconds) 73.2 H 52.9 [...] (Auto) (14.0 - 32.0 %) 8.5 L [place] % (Auto) (4.8 - 9.0 %) 12.6 H Eos % (Auto) (0.3 - 3.7 %) 3.6 Baso % (Auto) (0.0 - 2.0 %) 0.7 Neut # (Auto) (2.0 - 7.6 x10 3/uL) 5.26 Lymph # (Auto) (1.0 - 3.8 x10 3/uL) 0.61 L [place] # (Auto) (0.1 - 0.8 x10 3/uL) [...] 0.1 x10 3/uL) 0.00 Laboratory Tests 06/09 1538 Serology SARS-CoV-2 Ag (Rapid) (Negative) Negative Microbiology Date/Time Procedure - Status Source Growth 06/09 1538 MSSA Surveillance Screen - COMP NASAL 06/09 1538 MRSA DNA Surveillance Screen - COMP NASAL Radiology data: Recent Impressions: RADIOLOGY - XR CHEST 1 V 06/11 927 Report Impression - Status: SIGNED Entered: 06/11/2023 [...] a living will or medical power of corporate attorney Patient is a full code 06/01 [...] cabg tomorrow 06/10- pending cabg Quality: Gen [facility] Crit Care VTE Prophylaxis VTE prophylaxis initiated: yes Current Medications Current medication review: I attest that the foregoing medication list in the medical record is true, accurate, and complete to the best of my knowledge. Advanced Care Plan 65 or Older Discussed with: patient Discussion included: living will, power of corporate attorney, code status at 1301 RPT #:[id number] END OF REPORT [facility] 2023-06-11 12:10:00 [facility] Nephrology Progress Note REPORT#:[id number] REPORT STATUS: Signed REPORT INITIALIZATION DATE:06/11/23 TIME: 1210 PATIENT: MINDY CARTER UNIT #: [id number] ROOM/BED: 3360-1 : 54 AGE: 67 SEX: [...] Consultants: cardiology, cardiovascular surgery at 1212 RPT #:[id number] END OF REPORT [facility] 2023-06-11 08:37:00 [facility] Cardiology Progress Note REPORT#:[id number] REPORT STATUS: Signed REPORT INITIALIZATION DATE:06/11/23 TIME: 836 PATIENT: MINDY CARTER UNIT #: [id number] ROOM/BED: [place] [address] : 54 AGE: 67 SEX: M ATTEND: [...] aspirin statin and beta-blockers at 0837 RPT #:[id number] END OF REPORT [facility] 2023-06-10 15:20:00 [facility] ([facility]) Hospitalist Progress Note REPORT#:[id number] REPORT STATUS: Signed REPORT INITIALIZATION DATE:06/10/23 TIME: 1519 PATIENT: MINDY CARTER UNIT #: [id number] ROOM/BED: [place] [address] : 54 AGE: 67 SEX: M ATTEND: [...] distention Extremities: edema, no clubbing, no cyanosis Neuro/INK MAKER: alert, oriented X 3, CNII-XII intact Skin: [...] (Auto) (14.0 - 32.0 %) 8.5 L [place] % (Auto) (4.8 - 9.0 %) 12.0 H Eos % (Auto) (0.3 - 3.7 %) 3.9 H Baso % (Auto) (0.0 - 2.0 %) 0.7 Neut # (Auto) (2.0 - 7.6 x10 3/uL) 6.05 Lymph # (Auto) (1.0 - 3.8 x10 3/uL) 0.70 L [place] # (Auto) (0.1 - 0.8 x10 3/uL) [...] a living will or medical power of corporate attorney Patient is a full code 06/01 [...] patient Discussion included: living will, power of corporate attorney, code status at 1523 RPT #:[id number] END OF REPORT [facility] 2023-06-10 11:09:00 [facility] Cardiothoracic Surgery Prog REPORT#:[id number] REPORT STATUS: Signed REPORT INITIALIZATION DATE:06/10/23 TIME: 1108 PATIENT: MINDY CARTER UNIT #: [id number] ROOM/BED: [place] [address] : 54 AGE: 67 SEX: M ATTEND: [...] Ox 95 06/09 1129 B/P 127/79 06/09 112 B/P Mean 0.0 [...] Tests 06/09 06/09 06/09 06/09 06/08 1126 0828 0826 0424 2010 Chemistry Sodium (134 - 147 [...] (Auto) (14.0 - 32.0 %) 8.5 L [place] % (Auto) (4.8 - 9.0 %) 12.0 H Eos % (Auto) (0.3 - 3.7 %) 3.9 H Baso % (Auto) (0.0 - 2.0 %) 0.7 Neut # (Auto) (2.0 - 7.6 x10 3/uL) 6.05 Lymph # (Auto) (1.0 - 3.8 x10 3/uL) 0.70 L [place] # (Auto) (0.1 - 0.8 x10 3/uL) [...] patient Discussion included: living will, power of corporate attorney, code status Current Medications Current medication [...] diagnosed. Patient does not live local to [place]. Will consult gastroenterology to see patient. -EtOH cessation 3. Chronic kidney disease -Patient does not live local to [place]. Will consult nephrology to see patient. Patient [...] Consultants: cardiology, cardiovascular surgery at 1026 RPT #:[id number] END OF REPORT [facility] 2023-06-10 10:55:00 [facility] ([facility]) Gastroenterology Progress Note REPORT#:[id number] REPORT STATUS: Signed REPORT INITIALIZATION DATE:06/10/23 TIME: 105 PATIENT: MINDY CARTER UNIT #: [id number] ROOM/BED: [place] [address] : 54 AGE: 67 SEX: M ATTEND: [...] guarding Extremities: moves all Musculoskeletal: normal inspection Neuro/INK MAKER: alert, oriented X 3, normal speech Skin: [...] (Auto) (14.0 - 32.0 %) 8.5 L [place] % (Auto) (4.8 - 9.0 %) 12.0 H Eos % (Auto) (0.3 - 3.7 %) 3.9 H Baso % (Auto) (0.0 - 2.0 %) 0.7 Neut # (Auto) (2.0 - 7.6 x10 3/uL) 6.05 Lymph # (Auto) (1.0 - 3.8 x10 3/uL) 0.70 L [place] # (Auto) (0.1 - 0.8 x10 3/uL) [...] RAHUL Tobias. at 1422 at 2026 RPT #:[id number] END OF REPORT [facility] 2023-06-10 06:47:00 [facility] ([facility]) Cardiology Progress Note REPORT#:[id number] REPORT STATUS: Signed REPORT INITIALIZATION DATE:06/10/23 TIME: 0647 PATIENT: MINDY CARTER UNIT #: [id number] ROOM/BED: [place] [address] : 54 AGE: 67 SEX: M ATTEND: [...] aspirin statin and beta-blockers at 0823 RPT #:[id number] END OF REPORT [facility] 2023-06-09 13:38:00 [facility] Nephrology Progress Note REPORT#:[id number] REPORT STATUS: Signed REPORT INITIALIZATION DATE:06/09/23 TIME: 1337 PATIENT: MINDY CARTER UNIT #: [id number] ROOM/BED: [place] [address] : 53 AGE: 67 SEX: M ATTEND: [...] Consultants: cardiology, cardiovascular surgery at 1454 RPT #:[id number] END OF REPORT [facility] 2023-06-09 13:01:00 [facility] ([facility]) Cardiothoracic Surgery Prog REPORT#:[id number] REPORT STATUS: Signed REPORT INITIALIZATION DATE:06/09/23 TIME: 1301 PATIENT: MINDY CARTER UNIT #: [id number] ROOM/BED: [place] [address] : 53 AGE: 67 SEX: M ATTEND: [...] H Laboratory Tests 06/08 0540 Coagulation PTT (Wirt) (25.0 - 39.5 Seconds) 62.5 H Laboratory [...] (Auto) (14.0 - 32.0 %) 9.0 L [place] % (Auto) (4.8 - 9.0 %) 11.4 H Eos % (Auto) (0.3 - 3.7 %) 3.7 Baso % (Auto) (0.0 - 2.0 %) 0.9 Neut # (Auto) (2.0 - 7.6 x10 3/uL) 6.72 Lymph # (Auto) (1.0 - 3.8 x10 3/uL) 0.82 L [place] # (Auto) (0.1 - 0.8 x10 3/uL) [...] patient Discussion included: living will, power of corporate attorney, code status Current Medications Current medication [...] diagnosed. Patient does not live local to [place]. Will consult gastroenterology to see patient. -EtOH cessation 3. Chronic kidney disease -Patient does not live local to [place]. Will consult nephrology to see patient. Patient [...] Consultants: cardiology, cardiovascular surgery at 1011 RPT #:[id number] END OF REPORT [facility] 2023-06-09 13:00:00 [facility] ([facility]) Gastroenterology Progress Note REPORT#:[id number] REPORT STATUS: Signed REPORT INITIALIZATION DATE:06/09/23 TIME: 1300 PATIENT: MINDY CARTER UNIT #: [id number] ROOM/BED: [place] [id number] : [birth year] AGE: 67 SEX: M ATTEND: [...] guarding Extremities: moves all Musculoskeletal: normal inspection Neuro/INK MAKER: alert, oriented X 3, normal speech Skin: dry, intact, normal color Psychiatry: normal affect, normal judgment/insight, normal mood Results Findings/Data: Laboratory Tests 06/09/23539: [Embedded Image Not Available] Laboratory Tests 06/08 [...] - 110 MG/DL) 313 H Laboratory Tests 06/09 539 Coagulation PTT (Rashida) (25.0 - 39.5 Seconds) 62.5 H Laboratory Tests 06/09 539 Hematology WBC (4.5 - 11.0 x10 3/uL) [...] (Auto) (14.0 - 32.0 %) 9.0 L New [place] % (Auto) (4.8 - 9.0 %) 11.4 H Eos % (Auto) (0.3 - 3.7 %) 3.7 Baso % (Auto) (0.0 - 2.0 %) 0.9 Neut # (Auto) (2.0 - 7.6 x10 3/uL) 6.72 Lymph # (Auto) (1.0 - 3.8 x10 3/uL) 0.82 L [place] # (Auto) (0.1 - 0.8 x10 3/uL) [...] documented by RAHUL Tobias. at 1659 at 1950 RPT #:[id number] END OF REPORT [facility] 2023-06-09 12:46:00 [facility] Hospitalist Progress Note REPORT#:[id number] REPORT STATUS: Signed REPORT INITIALIZATION DATE:06/09/23 TIME: 1245 PATIENT: MINDY CARTER UNIT #: [id number] ROOM/BED: [place] [address] : 53 AGE: 67 SEX: M ATTEND: [...] distention Extremities: edema, no clubbing, no cyanosis Neuro/INK MAKER: alert, oriented X 3, CNII-XII intact Skin: dry, intact, no rash Results Findings/Data: Laboratory Tests 06/08 06/08 06/07 06/07 06/07 0725 0540 8 2007 1551 Chemistry Sodium (134 - 147 [...] 1.76 Laboratory Tests 06/08 0540 Coagulation PTT (Wirt) (25.0 - 39.5 Seconds) 62.5 H Laboratory [...] (Auto) (14.0 - 32.0 %) 9.0 L [place] % (Auto) (4.8 - 9.0 %) 11.4 H Eos % (Auto) (0.3 - 3.7 %) 3.7 Baso % (Auto) (0.0 - 2.0 %) 0.9 Neut # (Auto) (2.0 - 7.6 x10 3/uL) 6.72 Lymph # (Auto) (1.0 - 3.8 x10 3/uL) 0.82 L [place] # (Auto) (0.1 - 0.8 x10 3/uL) [...] a living will or medical power of corporate attorney Patient is a full code 06/01 [...] reported to be 105 kg). Quality: Gen [facility] Crit Care VTE Prophylaxis VTE prophylaxis initiated: yes Current Medications Current medication review: I attest that the foregoing medication list in the medical record is true, accurate, and complete to the best of my knowledge. Advanced Care Plan 65 or Older Discussed with: patient Discussion included: living will, power of corporate attorney, code status at 1251 RPT #:[id number] END OF REPORT [facility] 2023-06-08 21:12:00 [facility] ([facility] Hospitalist Progress Note REPORT#:[id number] REPORT STATUS: Signed REPORT INITIALIZATION DATE:06/08/23 TIME: 2111 PATIENT: MINDY CARTER UNIT #: [id number] ROOM/BED: [place] [address] : 54 AGE: 67 SEX: M ATTEND: [...] distention Extremities: edema, no clubbing, no cyanosis Neuro/INK MAKER: alert, oriented X 3, CNII-XII intact Skin: [...] - 2.6 mg/dL) 1.89 Laboratory Tests 06/07 0446 Coagulation PTT (Rashida) [...] (Auto) (14.0 - 32.0 %) 8.1 L [place] % (Auto) (4.8 - 9.0 %) 10.4 H Eos % (Auto) (0.3 - 3.7 %) 3.4 Baso % (Auto) (0.0 - 2.0 %) 0.7 Neut # (Auto) (2.0 - 7.6 x10 3/uL) 6.95 Lymph # (Auto) (1.0 - 3.8 x10 3/uL) 0.74 L [place] # (Auto) (0.1 - 0.8 x10 3/uL) [...] daily 06/08 2111 Active Strict I O 06/07 2112 Active [...] a living will or medical power of corporate attorney Patient is a full code 06/01 [...] symptoms of dyspnea. Monitor I'O's. Quality: Gen [facility] Crit Care VTE Prophylaxis VTE prophylaxis initiated: yes Current Medications Current medication review: I attest that the foregoing medication list in the medical record is true, accurate, and complete to the best of my knowledge. Advanced Care Plan 65 or Older Discussed with: patient Discussion included: living will, power of corporate attorney, code status at 2115 RPT #:[id number] END OF REPORT [facility] 2023-06-08 16:11:00 [facility] ([facility] Nephrology Progress Note REPORT#:[id number] REPORT STATUS: Signed REPORT INITIALIZATION DATE:06/08/23 TIME: 161 PATIENT: MINDY CARTER UNIT #: [id number] ROOM/BED: [place] [address] : 54 AGE: 67 SEX: M ATTEND: [...] Consultants: cardiology, cardiovascular surgery at 1338 RPT #:[id number] END OF REPORT [facility] 2023-06-08 14:36:00 [facility]) Cardiothoracic Surgery Prog REPORT#:[id number] REPORT STATUS: Signed REPORT INITIALIZATION DATE:06/08/23 TIME: 1435 PATIENT: MINDY CARTER UNIT #: [id number] ROOM/BED: [place] [address] : 54 AGE: 67 SEX: M ATTEND: Kimmie Bacon MD ADM AUTHOR: Nathaniel Martel MD REPT SERVICE DT/TIME: 06/08/23 3177 * ALL edits or amendments must be [...] - 2.6 mg/dL) 1.89 Laboratory Tests 06/07 0446 Coagulation PTT (Wirt) (25.0 - 39.5 Seconds) 61.5 H Laboratory [...] (Auto) (14.0 - 32.0 %) 8.1 L [place] % (Auto) (4.8 - 9.0 %) 10.4 H Eos % (Auto) (0.3 - 3.7 %) 3.4 Baso % (Auto) (0.0 - 2.0 %) 0.7 Neut # (Auto) (2.0 - 7.6 x10 3/uL) 6.95 Lymph # (Auto) (1.0 - 3.8 x10 3/uL) 0.74 L [place] # (Auto) (0.1 - 0.8 x10 3/uL) [...] patient Discussion included: living will, power of corporate attorney, code status Current Medications Current medication [...] diagnosed. Patient does not live local to [place]. Will consult gastroenterology to see patient. -EtOH cessation 3. Chronic kidney disease -Patient does not live local to [place]. Will consult nephrology to see patient. Patient [...] Consultants: cardiology, cardiovascular surgery at 0956 RPT #:[id number] END OF REPORT [facility] 2023-06-08 12:53:00 [facility] ([facility] Gastroenterology Progress Note REPORT#:[id number] REPORT STATUS: Signed REPORT INITIALIZATION DATE:06/08/23 TIME: 1253 PATIENT: MINDY CARTER UNIT #: [id number] ROOM/BED: [place] [address] : 54 AGE: 67 SEX: M ATTEND: Denise Montejo MD ADM AUTHOR: Farideh Harris REPT SERVICE DT/TIME: 06/08/23 1253 * ALL edits or amendments must be made on the electronic/computer document * StevenFarideh Y 06/08/23 1253: Subjective Patient reports: Yes: bowel [...] guarding Extremities: moves all Musculoskeletal: normal inspection Neuro/INK MAKER: alert, oriented X 3, normal speech Skin: dry, intact, normal color Psychiatry: normal affect, normal judgment/insight, normal mood Results Findings/Data: Laboratory Tests 06/08/23 0446: [Embedded Image Not Available] Laboratory Tests 06/07 06/07 06/07 06/07 06/06 1551 1146 0715 0446 1999 Chemistry Sodium (134 - 147 mEq/L) 134 [...] (Auto) (14.0 - 32.0 %) 8.1 L [place] % (Auto) (4.8 - 9.0 %) 10.4 H Eos % (Auto) (0.3 - 3.7 %) 3.4 Baso % (Auto) (0.0 - 2.0 %) 0.7 Neut # (Auto) (2.0 - 7.6 x10 3/uL) 6.95 Lymph # (Auto) (1.0 - 3.8 x10 3/uL) 0.74 L [place] # (Auto) (0.1 - 0.8 x10 3/uL) [...] RAHUL Tobias. at 1631 at 2133 RPT #:[id number] END OF REPORT [facility] 2023-06-08 00:58:00 [facility] ([facility]) Nephrology Progress Note REPORT#:[id number] REPORT STATUS: Signed REPORT INITIALIZATION DATE:06/08/23 TIME: 57 PATIENT: MINDY CARTER UNIT #: [id number] ROOM/BED: [facility]-1 : 54 AGE: 67 SEX: M ATTEND: [...] O2 Flow FiO2 Mean Ox Delivery Rate 06/068 36.7 90 19 128/75 0.0 97 Room [...] 2 cannula 06/06 0900 91 38 96 03/11 0800 Nasal 2 cannula 06/06 0800 85 [...] Consultants: cardiology, cardiovascular surgery at 0100 RPT #:[id number] END OF REPORT [facility] 2023-06-07 14:02:00 [facility] Hospitalist Progress Note REPORT#:[id number] REPORT STATUS: Signed REPORT INITIALIZATION DATE:06/07/23 TIME: 1401 PATIENT: MINDY CARTER UNIT #: [id number] ROOM/BED: [place] [address] : 54 AGE: 67 SEX: M ATTEND: [...] distention Extremities: edema, no clubbing, no cyanosis Neuro/INK MAKER: alert, oriented X 3, CNII-XII intact Skin: [...] (Auto) (14.0 - 32.0 %) 8.7 L [place] % (Auto) (4.8 - 9.0 %) 10.9 H Eos % (Auto) (0.3 - 3.7 %) 3.6 Baso % (Auto) (0.0 - 2.0 %) 0.8 Neut # (Auto) (2.0 - 7.6 x10 3/uL) 5.96 Lymph # (Auto) (1.0 - 3.8 x10 3/uL) 0.69 L [place] # (Auto) (0.1 - 0.8 x10 3/uL) [...] a living will or medical power of corporate attorney Patient is a full code 06/01 [...] patient Discussion included: living will, power of corporate attorney, code status at 1406 RPT #:[id number] END OF REPORT [facility] 2023-06-07 11:20:00 [facility]) Cardiothoracic Surgery Prog REPORT#:[id number] REPORT STATUS: Signed REPORT INITIALIZATION DATE:06/07/23 TIME: 112 PATIENT: MINDY CARTER UNIT #: [id number] ROOM/BED: [place] [address] : 54 AGE: 67 SEX: M ATTEND: [...] 710 Pulse 90 06/06 710 Resp 14 06/06 07 FiO2 40 06/04 0925 24 hour I [...] 1.87 Laboratory Tests 06/07 235 Coagulation PTT (Wirt) (25.0 - 39.5 Seconds) 57.6 H Laboratory [...] (Auto) (14.0 - 32.0 %) 8.7 L [place] % (Auto) (4.8 - 9.0 %) 10.9 H Eos % (Auto) (0.3 - 3.7 %) 3.6 Baso % (Auto) (0.0 - 2.0 %) 0.8 Neut # (Auto) (2.0 - 7.6 x10 3/uL) 5.96 Lymph # (Auto) (1.0 - 3.8 x10 3/uL) 0.69 L [place] # (Auto) (0.1 - 0.8 x10 3/uL) [...] patient Discussion included: living will, power of corporate attorney, code status Current Medications Current medication [...] diagnosed. Patient does not live local to [place]. Will consult gastroenterology to see patient. -EtOH cessation 3. Chronic kidney disease -Patient does not live local to [place]. Will consult nephrology to see patient. Patient [...] Consultants: cardiology, cardiovascular surgery at 0955 RPT #:[id number] END OF REPORT [facility] 2023-06-07 10:19:00 [facility] ([facility]) Gastroenterology Progress Note REPORT#:[id number] REPORT STATUS: Signed REPORT INITIALIZATION DATE:06/07/23 TIME: 1019 PATIENT: MINDY CARTER UNIT #: [id number] ROOM/BED: [place] [address] : 53 AGE: 67 SEX: M ATTEND: [...] 926 O2 Flow Rate 2 06/06 926 FiO2 40 06/04 09 24 hour I O ending at 0700: [...] guarding Extremities: moves all Musculoskeletal: normal inspection Neuro/INK MAKER: alert, oriented X 3, normal speech Skin: [...] 1.87 Laboratory Tests 06/07 235 Coagulation PTT (Wirt) (25.0 - 39.5 Seconds) 57.6 H Laboratory [...] (Auto) (14.0 - 32.0 %) 8.7 L [place] % (Auto) (4.8 - 9.0 %) 10.9 H Eos % (Auto) (0.3 - 3.7 %) 3.6 Baso % (Auto) (0.0 - 2.0 %) 0.8 Neut # (Auto) (2.0 - 7.6 x10 3/uL) 5.96 Lymph # (Auto) (1.0 - 3.8 x10 3/uL) 0.69 L [place] # (Auto) (0.1 - 0.8 x10 3/uL) [...] RAHUL Tobias. at 1759 at 2005 RPT #:[id number] END OF REPORT [facility] 2023-06-07 09:16:00 [facility] ([facility] Cardiology Progress Note REPORT#:[id number] REPORT STATUS: Signed REPORT INITIALIZATION DATE:06/07/23 TIME: 915 PATIENT: MINDY CARTER UNIT #: [id number] ROOM/BED: [place] [address] : 54 AGE: 67 SEX: M ATTEND: [...] aspirin statin and beta-blockers at 1815 RPT #:[id number] END OF REPORT [facility] 2023-06-06 13:14:00 [facility] Cardiothoracic Surgery Prog REPORT#:[id number] REPORT STATUS: Signed REPORT INITIALIZATION DATE:06/06/23 TIME: 131 PATIENT: MINDY CARTER UNIT #: [id number] ROOM/BED: [place] [address] : 54 AGE: 67 SEX: M ATTEND: [...] Result Date Time Pulse Ox 95 06/05 1151 B/P 130/74 06/05 1151 B/P Mean 0.0 06/05 1151 O2 Delivery Nasal cannula 06/05 115 Temp 36.5 06/05 115 Pulse 87 06/05 1151 Resp 20 06/05 [...] Tests 06/05 06/05 06/05 06/04 06/04 1147 2432 403 2015 161 Chemistry Sodium (134 - [...] 06/04 06/04 0404 2117 1427 Coagulation PTT (Wirt) (25.0 - 39.5 Seconds) 61.6 H 58.7 [...] (Auto) (14.0 - 32.0 %) 7.6 L [place] % (Auto) (4.8 - 9.0 %) 11.0 H Eos % (Auto) (0.3 - 3.7 %) 4.0 H Baso % (Auto) (0.0 - 2.0 %) 0.8 Neut # (Auto) (2.0 - 7.6 x10 3/uL) 5.86 Lymph # (Auto) (1.0 - 3.8 x10 3/uL) 0.59 L [place] # (Auto) (0.1 - 0.8 x10 3/uL) [...] patient Discussion included: living will, power of corporate attorney, code status Current Medications Current medication [...] diagnosed. Patient does not live local to [place]. Will consult gastroenterology to see patient. -EtOH cessation 3. Chronic kidney disease -Patient does not live local to [place]. Will consult nephrology to see patient. Patient [...] Consultants: cardiology, cardiovascular surgery at 0955 RPT #:[id number] END OF REPORT [facility] 2023-06-06 12:46:00 [facility] ([facility]) Nephrology Progress Note REPORT#:[id number] REPORT STATUS: Signed REPORT INITIALIZATION DATE:06/06/23 TIME: 124 PATIENT: MINDY CARTER UNIT #: [id number] ROOM/BED: [place] [address] : 54 AGE: 67 SEX: M ATTEND: [...] 26 92 06/06 1500 90 28 91 03/11 1400 89 27 92 06/06 1300 92 [...] Consultants: cardiology, cardiovascular surgery at 0106 RPT #:[id number] END OF REPORT [facility] 2023-06-06 11:47:00 [facility] ([facility] Hospitalist Progress Note REPORT#:[id number] REPORT STATUS: Signed REPORT INITIALIZATION DATE:06/06/23 TIME: 114 PATIENT: MINDY CARTER UNIT #: [id number] ROOM/BED: [place] [address] : 53 AGE: 67 SEX: M ATTEND: [...] distention Extremities: edema, no clubbing, no cyanosis Neuro/INK MAKER: alert, oriented X 3, CNII-XII intact Skin: dry, intact, no rash Results Findings/Data: Laboratory Tests 06/05 06/05 06/05 06/04 06/04 1147 0757 403 2015 161 Chemistry Sodium (134 - [...] Seconds) 61.6 H 58.7 H Laboratory Tests 06/05 0404 Hematology WBC [...] (Auto) (14.0 - 32.0 %) 7.6 L [place] % (Auto) (4.8 - 9.0 %) 11.0 H Eos % (Auto) (0.3 - 3.7 %) 4.0 H Baso % (Auto) (0.0 - 2.0 %) 0.8 Neut # (Auto) (2.0 - 7.6 x10 3/uL) 5.86 Lymph # (Auto) (1.0 - 3.8 x10 3/uL) 0.59 L [place] # (Auto) (0.1 - 0.8 x10 3/uL) [...] a living will or medical power of corporate attorney Patient is a full code 06/01 [...] patient Discussion included: living will, power of corporate attorney, code status at 1517 RPT #:[id number] END OF REPORT [facility] 2023-06-05 14:51:00 [facility] ([facility] Nephrology Progress Note REPORT#:[id number] REPORT STATUS: Signed REPORT INITIALIZATION DATE:06/05/23 TIME: 145 PATIENT: MINDY CARTER UNIT #: [id number] ROOM/BED: [place] [address] : 54 AGE: 67 SEX: M ATTEND: [...] O2 Flow FiO2 Mean Ox Delivery Rate 06/046 97 Nasal 4 cannula 06/04 1858 36.5 [...] 1134 36.7 87 16 135/84 100.9 97 06/04 1100 85 31 95 06/04 1005 84 [...] keep hydrated. Consultants: cardiology, cardiovascular surgery at [facility] RPT #:[id number] END OF REPORT [facility] 2023-06-05 13:19:00 [facility] ([facility]) Hospitalist Progress Note REPORT#:[id number] REPORT STATUS: Signed REPORT INITIALIZATION DATE:06/05/23 TIME: 1318 PATIENT: MINDY CARTER UNIT #: [id number] ROOM/BED: [place] [address] : 54 AGE: 67 SEX: M ATTEND: Denise Montejo MD ADM AUTHOR: Denise Montejo MD REPT SERVICE DT/TIME: 06/05/23 131 * ALL edits or amendments must be [...] distention Extremities: edema, no clubbing, no cyanosis Neuro/INK MAKER: alert, oriented X 3, CNII-XII intact Skin: [...] (Auto) (14.0 - 32.0 %) 7.8 L [place] % (Auto) (4.8 - 9.0 %) 10.5 H Eos % (Auto) (0.3 - 3.7 %) 3.6 Baso % (Auto) (0.0 - 2.0 %) 0.9 Neut # (Auto) (2.0 - 7.6 x10 3/uL) 5.98 Lymph # (Auto) (1.0 - 3.8 x10 3/uL) 0.61 L [place] # (Auto) (0.1 - 0.8 x10 3/uL) [...] pH (5.0 - 7.0) 5.0 Ur Specific [place] (1.005 - 1.030) 1.014 Urine Protein (NEGATIVE) [...] Report Impression - Status: SIGNED Entered: 06/04/2023 8941 IMPRESSION: 1. Patchy areas of groundglass attenuation bilaterally suggest pneumonitis, possibly viral. 2. Left lower lobe nodularity is present, follow-up noncontrast chest CT in 3-6 months recommended. Additional recommendations above. Impression By: [email or web address] - Vadim Coelho M.D. RADIOLOGY - XR CHEST 1 V 06/03 3106 Report Impression - Status: SIGNED Entered: 06/04/2023 4280 IMPRESSION: Mild left basilar atelectasis Impression By: [...] a living will or medical power of corporate attorney Patient is a full code 06/01 [...] patient Discussion included: living will, power of corporate attorney, code status at 1321 RPT #:[id number] END OF REPORT [facility] 2023-06-05 13:15:00 [facility] ([facility]) Cardiothoracic Surgery Prog REPORT#:[id number] REPORT STATUS: Signed REPORT INITIALIZATION DATE:06/05/23 TIME: 1314 PATIENT: MINDY CARTER UNIT #: [id number] ROOM/BED: [place] [address] : 54 AGE: 67 SEX: M ATTEND: Kimmie Bacon MD ADM AUTHOR: Nathaniel Martel MD REPT SERVICE DT/TIME: 06/05/235 * ALL edits or amendments must be [...] Pulse 87 06/04 1134 Resp 16 06/04 113 O2 Delivery Nasal cannula 06/04 1000 O2 [...] Coagulation INR (0.8 - 1.2) 1.2 PTT (Wirt) (25.0 - 39.5 Seconds) 76.7 H PT [...] (Auto) (14.0 - 32.0 %) 7.8 L [place] % (Auto) (4.8 - 9.0 %) 10.5 H Eos % (Auto) (0.3 - 3.7 %) 3.6 Baso % (Auto) (0.0 - 2.0 %) 0.9 Neut # (Auto) (2.0 - 7.6 x10 3/uL) 5.98 Lymph # (Auto) (1.0 - 3.8 x10 3/uL) 0.61 L [place] # (Auto) (0.1 - 0.8 x10 3/uL) [...] pH (5.0 - 7.0) 5.0 Ur Specific [place] (1.005 - 1.030) 1.014 Urine Protein (NEGATIVE) [...] 1638 Report Impression - Status: SIGNED Entered: 06/04/20232151 IMPRESSION: 1. Patchy areas of groundglass attenuation [...] patient Discussion included: living will, power of corporate attorney, code status Current Medications Current medication [...] diagnosed. Patient does not live local to [place]. Will consult gastroenterology to see patient. -EtOH cessation 3. Chronic kidney disease -Patient does not live local to [place]. Will consult nephrology to see patient. Patient [...] all questions were answered. at 0941 RPT #:[id number] END OF REPORT [facility] 2023-06-04 23:05:00 [facility] ([facility]) Nephrology Progress Note REPORT#:[id number] REPORT STATUS: Signed REPORT INITIALIZATION DATE:06/04/23 TIME: 2304 PATIENT: MINDY CARTER UNIT #: [id number] ROOM/BED: [facility]0-1 : 54 AGE: 67 SEX: M ATTEND: [...] Nasal cannula /08 1645 90 52 93 /08 1618 36.4 [...] 24 hour I O ending at 0700: /08 0700 /07 1900 Intake Total Output Total 1300 800 [...] nephropathy and keep hydrated. at 2308 RPT #:[id number] END OF REPORT [facility] 2023-06-04 15:34:00 [facility] ([facility]) Cardiothoracic Surgery Prog REPORT#:[id number] REPORT STATUS: Signed REPORT INITIALIZATION DATE:06/04/23 TIME: 1534 PATIENT: MINDY CARTER UNIT #: [id number] ROOM/BED: [place] [address] : 53 AGE: 67 SEX: M ATTEND: Kimmie Bacon MD ADM AUTHOR: Nathaniel Martel MD REPT SERVICE DT/TIME: 06/04/23 1101 * ALL edits or amendments must be [...] L Laboratory Tests 06/03 0944 Coagulation PTT (Wirt) (25.0 - 39.5 Seconds) 74.9 H Laboratory [...] (Auto) (14.0 - 32.0 %) 9.7 L [place] % (Auto) (4.8 - 9.0 %) 11.2 H Eos % (Auto) (0.3 - 3.7 %) 4.4 H Baso % (Auto) (0.0 - 2.0 %) 0.7 Neut # (Auto) (2.0 - 7.6 x10 3/uL) 4.98 Lymph # (Auto) (1.0 - 3.8 x10 3/uL) 0.66 L [place] # (Auto) (0.1 - 0.8 x10 3/uL) [...] patient Discussion included: living will, power of corporate attorney, code status Current Medications Current medication [...] diagnosed. Patient does not live local to [place]. Will consult gastroenterology to see patient. -EtOH cessation 3. Chronic kidney disease -Patient does not live local to [place]. Will consult nephrology to see patient. Patient [...] All questions were answered. at 0940 RPT #:[id number] END OF REPORT [facility] 2023-06-04 13:58:00 [facility] Nephrology Progress Note REPORT#:[id number] REPORT STATUS: Signed REPORT INITIALIZATION DATE:06/04/23 TIME: 135 PATIENT: MINDY CARTER UNIT #: [id number] ROOM/BED: [place] [address] : 53 AGE: 67 SEX: M ATTEND: [...] Nasal cannula 03/08 1645 90 52 93 03/08 1618 36.4 101 12 121/71 87.9 96 Nasal cannula /08 1603 Nasal 5 cannula /08 1600 86 36 97 03/08 1500 88 26 98 03/08 1400 93 38 96 03/08 1300 88 26 96 03/08 1200 88 28 98 03/08 1153 36.4 86 12 118/74 88.7 93 Nasal cannula /08 1100 81 34 95 03/08 1000 85 [...] 24 hour I O ending at 0700: 08 0700 /07 1900 Intake Total Output Total 1300 800 [...] nephropathy and keep hydrated. at 2304 RPT #:[id number] END OF REPORT [facility] 2023-06-04 12:01:00 [facility] ([facility]) Hospitalist Progress Note REPORT#:[id number] REPORT STATUS: Signed REPORT INITIALIZATION DATE:06/04/23 TIME: 120 PATIENT: MINDY CARTER UNIT #: [id number] ROOM/BED: 3360-1 : 53 AGE: 67 SEX: [...] Nasal cannula 06/03 1999 Nasal 5 cannula 06/02 2000 84 26 97 / 1900 84 30 97 / 1844 97.5 85 15 121/73 88.7 97 Nasal cannula / 1800 87 35 94 / 1700 87 30 97 / 1640 97.9 86 20 144/73 0.0 97 Room air 06/02 1636 86 32 144/73 99 95 / 1600 81 25 97 03/07 1500 86 27 93 03/ 1400 89 32 96 / 1300 87 [...] distention Extremities: edema, no clubbing, no cyanosis Neuro/INK MAKER: alert, oriented X 3, CNII-XII intact Skin: [...] L Laboratory Tests 06/03 0944 Coagulation PTT (Wirt) (25.0 - 39.5 Seconds) 74.9 H Laboratory [...] (Auto) (14.0 - 32.0 %) 9.7 L [place] % (Auto) (4.8 - 9.0 %) 11.2 H Eos % (Auto) (0.3 - 3.7 %) 4.4 H Baso % (Auto) (0.0 - 2.0 %) 0.7 Neut # (Auto) (2.0 - 7.6 x10 3/uL) 4.98 Lymph # (Auto) (1.0 - 3.8 x10 3/uL) 0.66 L [place] # (Auto) (0.1 - 0.8 x10 3/uL) [...] a living will or medical power of corporate attorney Patient is a full code 06/01 [...] patient Discussion included: living will, power of corporate attorney, code status at 1203 RPT #:[id number] END OF REPORT [facility] 2023-06-04 11:35:00 [facility] Gastroenterology Progress Note REPORT#:[id number] REPORT STATUS: Signed REPORT INITIALIZATION DATE:06/04/23 TIME: 1134 PATIENT: MINDY CARTER UNIT #: [id number] ROOM/BED: [place] [address] : 53 AGE: 67 SEX: M ATTEND: [...] 06/03 1153 O2 Delivery Nasal cannula 06/03 115 Temp 36.4 06/03 1153 Pulse 86 06/03 [...] guarding Extremities: moves all Musculoskeletal: normal inspection Neuro/INK MAKER: alert, oriented X 3, normal speech Skin: [...] L Laboratory Tests 06/03 0944 Coagulation PTT (Wirt) (25.0 - 39.5 Seconds) 74.9 H Laboratory [...] (Auto) (14.0 - 32.0 %) 9.7 L [place] % (Auto) (4.8 - 9.0 %) 11.2 H Eos % (Auto) (0.3 - 3.7 %) 4.4 H Baso % (Auto) (0.0 - 2.0 %) 0.7 Neut # (Auto) (2.0 - 7.6 x10 3/uL) 4.98 Lymph # (Auto) (1.0 - 3.8 x10 3/uL) 0.66 L [place] # (Auto) (0.1 - 0.8 x10 3/uL) [...] RAHUL Tobias. at 1430 at 1623 RPT #:[id number] END OF REPORT [facility] 2023-06-03 11:41:00 [facility] ([facility]) Gastroenterology Progress Note REPORT#:[id number] REPORT STATUS: Signed REPORT INITIALIZATION DATE:06/03/23 TIME: 114 PATIENT: MINDY CARTER UNIT #: [id number] ROOM/BED: [place] [address] : 53 AGE: 67 SEX: M ATTEND: [...] Result Date Time Pulse Ox 97 06/02 1201 B/P 131/74 06/02 1201 B/P Mean 0.0 06/02 1201 O2 Delivery Nasal cannula 06/02 120 Temp 36.7 06/02 120 Pulse 89 06/02 1201 Resp 20 06/02 1201 O2 Flow Rate 5 06/02 0855 24 [...] guarding Extremities: moves all Musculoskeletal: normal inspection Neuro/INK MAKER: alert, oriented X 3, normal speech Skin: dry, intact, normal color Psychiatry: normal affect, normal judgment/insight, normal mood Results Findings/Data: Laboratory Tests 06/03/23 0458: [Embedded Image Not Available] Laboratory Tests 06/02 06/02 06/02 06/01 06/01 1152 0736 0450 2024 1604 Chemistry Sodium (134 - 147 mEq/L) [...] Coagulation INR (0.8 - 1.2) 1.1 PTT (Wirt) (25.0 - 39.5 Seconds) 69.0 H 63.5 [...] (Auto) (14.0 - 32.0 %) 8.3 L [place] % (Auto) (4.8 - 9.0 %) 11.5 H Eos % (Auto) (0.3 - 3.7 %) 3.7 Baso % (Auto) (0.0 - 2.0 %) 0.5 Neut # (Auto) (2.0 - 7.6 x10 3/uL) 5.70 Lymph # (Auto) (1.0 - 3.8 x10 3/uL) 0.63 L [place] # (Auto) (0.1 - 0.8 x10 3/uL) [...] Cholecystitis cannot be excluded. Impression By: [email or web address] - Elio Pimentel M.D. [...] documented by RAHUL Tobias. at 1349 at 9895 RPT #:[id number] END OF REPORT [facility] 2023-06-03 08:57:00 [facility] Hospitalist Progress Note REPORT#:[id number] REPORT STATUS: Signed REPORT INITIALIZATION DATE:06/03/23 TIME: 856 PATIENT: MINDY CARTER UNIT #: [id number] ROOM/BED: [place] [id number] : 53 AGE: 67 SEX: M ATTEND: [...] 92 24 124/69 0.0 97 Nasal cannula / 0600 87 26 97 03/ 0500 90 29 98 03/ 0400 91 29 98 / 0341 97.9 101 143/87 105.3 99 / 0300 86 27 97 / 0200 84 24 94 03/ 0100 90 26 95 03/07 0045 88 25 95 03/06 2321 97.7 92 127/75 0.0 90 / 2245 94 26 94 / 2145 86 24 96 / 2037 89 147/97 113.4 97 06/01 2030 98.2 89 164/93 116.7 97 / 1935 Nasal 5 cannula 06/01 1900 Nasal [...] distention Extremities: edema, no clubbing, no cyanosis Neuro/INK MAKER: alert, oriented X 3, CNII-XII intact Results [...] 1.1 PTT (Rashida) (25.0 - 39.5 Seconds) 63.5 H 52.6 H 79.1 H PT Patient/Control Mix (9.3 - 12.9 SECONDS) 12.7 03/ 1014 Coagulation PTT (Wirt) (25.0 - 39.5 Seconds) 71.3 H Laboratory Tests 06/02 0458 Hematology WBC (4.5 [...] (Auto) (14.0 - 32.0 %) 8.3 L [place] % (Auto) (4.8 - 9.0 %) 11.5 H Eos % (Auto) (0.3 - 3.7 %) 3.7 Baso % (Auto) (0.0 - 2.0 %) 0.5 Neut # (Auto) (2.0 - 7.6 x10 3/uL) 5.70 Lymph # (Auto) (1.0 - 3.8 x10 3/uL) 0.63 L [place] # (Auto) (0.1 - 0.8 x10 3/uL) [...] Cholecystitis cannot be excluded. Impression By: Daniel7 Frandy Pimentel M.D. Diagnosis, Assessment Plan Free [...] a living will or medical power of corporate attorney Patient is a full code 06/01 [...] patient Discussion included: living will, power of corporate attorney, code status at 0900 RPT #:[id number] END OF REPORT [facility] 2023-06-02 23:02:00 [facility] ([facility]) Nephrology Consultation Note REPORT#:[id number] REPORT STATUS: Signed REPORT INITIALIZATION DATE:06/02/23 TIME: 2 PATIENT: MINDY CARTER UNIT #: [id number] ROOM[place]ED: [facility] : [place] AGE: 67 SEX: M ATTEND: Denise Montejo MD ADM AUTHOR: Nkehci Bacon MD REPT SERVICE DT/TIME: 06/02/23 6989 * ALL edits or amendments must be [...] Nasal cannula 06/03 1645 90 52 93 03/08 1618 36.4 101 12 121/71 87.9 96 Nasal cannula /08 1603 Nasal 5 cannula / 1600 86 36 97 03/08 1500 88 26 98 03/08 1400 93 38 96 03/08 1300 88 26 96 03/08 1200 88 28 98 03/08 1153 36.4 86 12 118/74 88.7 93 Nasal cannula 03/08 1100 81 34 95 03/08 1000 85 37 96 /08 0900 89 36 99 03/08 0800 86 37 98 03/08 0719 36.7 87 14 135/83 100.6 99 Room air /08 0700 87 33 97 03/08 0352 36.5 85 15 124/77 92.7 97 Nasal cannula / 0024 95 Nasal 5 cannula 06/02 2327 36.4 84 22 125/77 92.9 97 [...] nephropathy and keep hydrated. at 2300 RPT #:[id number] END OF REPORT [facility] 2023-06-02 13:17:00 [facility] ([facility] Hospitalist Progress Note REPORT#:[id number] REPORT STATUS: Signed REPORT INITIALIZATION DATE:06/02/23 TIME: 1316 PATIENT: MINDY CARTER UNIT #: [id number] ROOM/BED: [place] [address] : 53 AGE: 67 SEX: M ATTEND: Denise Montejo MD ADM AUTHOR: Denise Montejo MD REPT SERVICE DT/TIME: 06/02/23 1317 * ALL edits or amendments must be [...] 95 06/01 0810 96 Nasal 5 cannula 03/06 0722 98.4 88 16 137/75 95.7 95 03/06 0513 98.6 93 15 125/74 90.9 93 Nasal 5 cannula / 0247 98.1 94 16 121/73 88.9 92 Room air / 0026 91 Nasal 5 cannula / 0017 98.2 95 122/75 90.5 91 03/05 2334 98.6 92 16 122/74 90.3 91 Nasal cannula 03/ 2130 Nasal 5 cannula /05 2118 93 129/75 0.0 90 Nasal 4 cannula / 1921 97.9 93 16 136/83 100.5 91 Nasal cannula / 1619 Nasal 5 cannula / 1403 97.3 89 16 144/79 24 hour [...] distention Extremities: edema, no clubbing, no cyanosis Neuro/INK MAKER: alert, oriented X 3, CNII-XII intact Results [...] Tests 06/01 06/01 1014 0307 Coagulation PTT (Wirt) (25.0 - 39.5 Seconds) 71.3 H 48.0 [...] (Auto) (14.0 - 32.0 %) 6.5 L [place] % (Auto) (4.8 - 9.0 %) 9.5 H Eos % (Auto) (0.3 - 3.7 %) 2.2 Baso % (Auto) (0.0 - 2.0 %) 0.7 Neut # (Auto) (2.0 - 7.6 x10 3/uL) 6.20 Lymph # (Auto) (1.0 - 3.8 x10 3/uL) 0.50 L [place] # (Auto) (0.1 - 0.8 x10 3/uL) [...] a living will or medical power of corporate attorney Patient is a full code 06/01 multivessel disease on cath, CTS consulted, patient undergoing preop evaluation for possible CABG. Quality: Gen Med Crit Care VTE Prophylaxis VTE prophylaxis initiated: yes Current Medications Current medication review: I attest that the foregoing medication list in the medical record is true, accurate, and complete to the best of my knowledge. Advanced Care Plan 65 or Older Discussed with: patient Discussion included: living will, power of corporate attorney, code status at 1318 RPT #:[id number] END OF REPORT [facility] 2023-06-02 12:05:00 [facility] ([facility]) GE Consultation Note REPORT#:[id number] REPORT STATUS: Signed REPORT INITIALIZATION DATE:06/02/23 TIME: 1205 PATIENT: MINDY CARTER UNIT #: [id number] ROOM/BED: [place] [id number] : [birth year] AGE: 67 SEX: M ATTEND: [...] ONE 05/31 1638 DC 05/31 (ISOPTIN) IV 164 Carvedilol 12.5 [...] Ondansetron HCl 4 MG Q4H PRN PRN / 1700 AC (ZOFRAN) IV 08/28 1659 Hormones And Synthetic Substit Sig/Norris Start time Last Medication Dose Route Stop Time Status Admin Insulin Human Lispro 0 AC HS 05/30 2100 AC 06/01 (HUMALOG) SUBQ 08/28 205 0836 Glucagon 1 MG ASDIR PRN / 1700 AC (GLUCAGON) IM 08/28 165 Allergies: Coded Allergies: No Known Allergies (05/31/23) Review of Systems Constitutional: Denies: chills, fever. Respiratory: Reports: SOB. Cardiovascular: Denies: chest pain. GI: Denies: abdominal pain, anorexia, constipation, diarrhea, dysphagia, GERD, hematemesis, hematochezia, hiatal hernia, melena, nausea, rectal pain, vomiting. Neuro: Denies: headache. Objective Physical Exam VS/I O: Last Documented: Result Date Time Pulse Ox 95 06/01 110 B/P 124/77 06/01 1107 B/P Mean 92.6 06/01 1107 Temp 36.8 06/01 110 Pulse 85 06/01 1107 Resp 16 06/01 110 O2 Delivery Nasal [...] guarding Extremities: moves all Musculoskeletal: normal inspection Neuro/INK MAKER: alert, oriented X 3, normal speech Skin: [...] Tests 06/01 06/01 1014 0307 Coagulation PTT (Wirt) (25.0 - 39.5 Seconds) 71.3 H 48.0 [...] (Auto) (14.0 - 32.0 %) 6.5 L [place] % (Auto) (4.8 - 9.0 %) 9.5 H Eos % (Auto) (0.3 - 3.7 %) 2.2 Baso % (Auto) (0.0 - 2.0 %) 0.7 Neut # (Auto) (2.0 - 7.6 x10 3/uL) 6.20 Lymph # (Auto) (1.0 - 3.8 x10 3/uL) 0.50 L [place] # (Auto) (0.1 - 0.8 x10 3/uL) [...] RAHUL Tobias. at 1418 at 2200 RPT #:[id number] END OF REPORT [facility] 2023-06-02 10:53:00 [facility] ([facility]) Cardiology Progress Note REPORT#:[id number] REPORT STATUS: Signed REPORT INITIALIZATION DATE:06/02/23 TIME: 1053 PATIENT: MINDY CARTER UNIT #: [id number] ROOM/BED: [place] [address] : 53 AGE: 67 SEX: M ATTEND: [...] aspirin statin and beta-blockers at 1053 RPT #:[id number] END OF REPORT [facility] 2023-06-02 08:17:00 [facility] ([facility] Cardiothoracic Surgery Consult REPORT#:[id number] REPORT STATUS: Signed REPORT INITIALIZATION DATE:06/02/23 TIME: 816 PATIENT: MINDY CARTER UNIT #: [id number] ROOM/BED: [place] [address] : 53 AGE: 67 SEX: M ATTEND: [...] 1300 CKD 05/31 (Porcine) IV 08/28 125 211 (HEPARIN 25,000 UNITS/ 1/2NS 500ML) Cardiovascular Drugs Sig/Norris Start time Last Medication Dose Route Stop Time Status Admin Lidocaine HCl 0 .STK-MED ONE 05/31 163 DC 05/31 (LIDOCAINE HCL/PF) .ROUTE 1646 Nitroglycerin/ 250 ML .STK-MED ONE 05/31 1639 DC 05/31 Dextrose IV 1646 (NITROGLYCERIN 50,000MCG/D5W 250ML) Verapamil HCl 0 .STK-MED ONE 05/31 1638 DC 05/31 (ISOPTIN) IV 1646 Carvedilol 12.5 MG Q12HR 05/31 0900 AC 06/01 (COREG) PO 08/29 0859 0837 Amlodipine Besylate 10 MG BEDTIME 05/30 2099 AC 05/31 (NORVASC) PO 08/28 Atorvastatin Calcium 40 MG 2100 05/30 2099 AC 05/31 (LIPITOR) PO 06/29 2058 211 Doxazosin Mesylate 2 MG BEDTIME 05/30 2100 AC 05/31 (CARDURA) PO 08/28 2058 211 Hydralazine HCl 10 MG Q6H PRN PRN 05/30 1700 AC (APRESOLINE) IV 08/28 165 Nitroglycerin 0.4 MG Q5M PRN PRN 05/30 1345 AC (NITROSTAT) SL 08/28 1344 Central Nervous System Agents Sig/Norris Start time Last Medication Dose Route Stop Time Status Admin Fentanyl Citrate 0 .STK-MED ONE 05/31 1638 DC 03/05 (SUBLIMAZE) .ROUTE 1646 Midazolam HCl 0 .STK-MED [...] Pulse 88 06/01 721 Resp 16 06/01 07 O2 Delivery Nasal cannula 06/01 05 O2 [...] range of motion, painless range of motion Neuro/INK MAKER: alert, oriented X 3 Skin: dry, intact [...] 8.8 Laboratory Tests 06/01 306 Coagulation PTT (Wirt) (25.0 - 39.5 Seconds) 48.0 H Laboratory [...] (Auto) (14.0 - 32.0 %) 6.5 L [place] % (Auto) (4.8 - 9.0 %) 9.5 H Eos % (Auto) (0.3 - 3.7 %) 2.2 Baso % (Auto) (0.0 - 2.0 %) 0.7 Neut # (Auto) (2.0 - 7.6 x10 3/uL) 6.20 Lymph # (Auto) (1.0 - 3.8 x10 3/uL) 0.50 L [place] # (Auto) (0.1 - 0.8 x10 3/uL) [...] diagnosed. Patient does not live local to [place]. Will consult gastroenterology to see patient. -EtOH cessation 3. Chronic kidney disease -Patient does not live local to [place]. Will consult nephrology to see patient. Patient will be presented at complex cardiology conference on Wednesday. Further recommendations to follow. Thank you for this kind consultation. Quality: Trauma Gen Surg Advanced Care Plan 65 or Older Discussed with: patient Discussion included: living will, power of corporate attorney, code status Current Medications Current medication review: I attest that the foregoing medication list in the medical record is true, accurate, and complete to the best of my knowledge. VTE Prophylaxis - General VTE prophylaxis initiated: yes at 1010 RPT #:[id number] END OF REPORT [facility] 2023-06-01 23:52[facility]00 [facility] RE[facility]#:[id number] REPORT STATUS: Signed REPORT INITIALIZATION DATE:06/01/23 TIME: 2351 PATIENT: MINDY CARTER UNIT #: [id number] ROOM/BED: [place] [address] : 53 AGE: 67 SEX: M ATTEND: [...] Nasal cannula / 2130 Nasal 5 cannula / 2118 93 129/75 0.0 90 Nasal 4 cannula / 1921 97.9 93 16 136/83 100.5 91 Nasal cannula / 1619 Nasal 5 cannula / 1403 97.3 89 16 144/79 03/ 1105 92 17 129/79 95.5 92 03/ 0832 90 Nasal 3 cannula / 0741 98.1 91 17 137/83 100.9 93 / 0432 98.6 91 18 111/72 85.2 93 Nasal cannula 24 hour I O ending at 0700: 05/31 0700 03/ 1900 Intake Total 617.00 Output Total 650 [...] distention Extremities: edema, no clubbing, no cyanosis Neuro/INK MAKER: alert, oriented X 3, CNII-XII intact Results [...] *H Laboratory Tests 06/01 635 Coagulation PTT (Wirt) (25.0 - 39.5 Seconds) 61.5 H Laboratory [...] (Auto) (14.0 - 32.0 %) 9.4 L [place] % (Auto) (4.8 - 9.0 %) 10.9 H Eos % (Auto) (0.3 - 3.7 %) 1.9 Baso % (Auto) (0.0 - 2.0 %) 0.7 Neut # (Auto) (2.0 - 7.6 x10 3/uL) 6.47 Lymph # (Auto) (1.0 - 3.8 x10 3/uL) 0.79 L [place] # (Auto) (0.1 - 0.8 x10 3/uL) [...] a living will or medical power of corporate attorney Patient is a full code Quality: Gen Med Crit Care VTE Prophylaxis VTE prophylaxis initiated: yes Current Medications Current medication review: I attest that the foregoing medication list in the medical record is true, accurate, and complete to the best of my knowledge. Advanced Care Plan 65 or Older Discussed with: patient Discussion included: living will, power of corporate attorney, code status at 2354 RPT #:[id number] END OF REPORT [facility] 2023-06-01 17:43:00 [facility] ([facility]) Cardiology Consultation REPORT#:[id number] REPORT STATUS: Signed REPORT INITIALIZATION DATE:06/01/23 TIME: 1742 PATIENT: MINDY CARTER UNIT #: [id number] ROOM/BED: [place] [address] : 53 AGE: 67 SEX: M ATTEND: [...] No Known Allergies (05/31/23) at 1744 RPT #:[id number] END OF REPORT [facility] 2023-06-01 17:34:00 [facility] ([facility]) DT Operative Note REPORT#:[id number] REPORT STATUS: Signed REPORT INITIALIZATION DATE:06/01/23 TIME: 1733 PATIENT: MINDY CARTER UNIT #: [id number] ROOM/BED: [place] [address] : 53 AGE: 67 SEX: M ATTEND: Eleonora Mai MD ADM AUTHOR: Clayton Nathan MD REPT SERVICE DT/TIME: 06/01/231733 * ALL edits or amendments must be made on the electronic/computer document * Operative Report Operative Note Note: Cardiac catheterization procedure note Location: [facility] catheterization Lab Date of service: 06/01/2023 Attending physician: Clayton Nathan MD Pre-operative diagnosis: NSTEMI Post-operative diagnosis: Same as above in addition to: 1. Severe left main and proximal LAD stenosis Procedure: -Moderate sedation, 20 mins -Fluoroscopic ultrasound-guided right TIRE MECHANIC access, 4 Argentine -Selective coronary angiography -Left heart catheterization -41420 Moderate sedation, initial 15 minutes -26110(+) Ultrasound guided access -51608 CAG+LHC Findings: Coronary Anatomy: -Left main: Proximal to mid left main with 60-70% stenosis. Significant dampening with engagement of the 4 [place] JL catheter suggestive of ostial involvement. -LAD: [...] moderate sedation was ordered and monitored by hi. The right common femoral artery site was draped and prepped in the usual sterile fashion. Local anesthesia with 1% lidocaine was used to anesthetize the [facility] common femoral artery access site. Using fluoroscopy and real-time ultrasound guidance, a micropuncture kit was used to access the RCFA. Utilizing Seldinger technique a 4 Argentine sheath was introduced over the wire into the artery without difficulty. A 4 Argentine JL 5 diagnostic catheter was introduced through the femoral arterial sheath over wire to cannulate the left main coronary artery which was selectively engaged with non-dampening waveforms. Cine images obtained. The catheter was then removed over the wire and exchanged for a 4 Argentine JR4 diagnostic catheter which was introduced over [...] concerns were addressed. Clayton Nathan MD Attending Lens Matcher [facility] Cardiology at 1742 RPT #:[id number] END OF REPORT [facility] 2023-06-01 16:49:00 [id number] [place] [address] PATIENT NAME: MINDY CARTER ADMIT DATE: 05/31/23 ACCOUNT NO: [id number] ROOM NO: [id number] AGE: 67 REPORT TYPE: eECHOCARDIOGRAM REPORT SEX: M ADMITTING PHYSICIAN:Eleonora Mai MD ATTENDING PHYSICIAN:Eleonora Mai MD *[place] [address] Transthoracic Echocardiogram Patient: Mindy Carter Study Date: 05/31/2023 BP: 131 / 91 URN: [id number] Location: : 1955 Age: 67 Gender: M Height: 69 in / 175.3 cm Weight: 240 lb / 108.9 kg BMI/BSA: 35.4 kg/m 2 / 2.34 m 2 *Ordering Physician: * Naomi CervantesInterpreting Physician: * Clayton Nathan MD *Recycling Center Operator: * Chelita Valentine Indications: CHF. Study data: [...] CVP 10 mm Hg --------- PATIENT NAME: RAULMINDY Conclusions Summary: 1. Left ventricle: The cavity [...] 16:49 at 1649 PATIENT NAME: MINDY CARTER [facility] 2023-05-31 16:58:00 [facility] REPORT#:[id number] REPORT STATUS: Signed REPORT INITIALIZATION DATE:05/31/23 TIME: 1657 PATIENT: MINDY CARTER UNIT #: [id number] ROOM/BED: [place] [address] : 53 AGE: 67 SEX: M ATTEND: [...] Resp B/P B/P Mean Pulse Ox FiO2 05/30 97.8-98.1 94 32-51 121-132/68-91 87-104.0 92-95 Last Documented: Result Date Time Pulse Ox 92 / 1343 B/P 131/91 / 1343 B/P Mean 104.0 / 1343 Temp 98.1 / 1343 Pulse 94 / 1343 O2 Delivery Nasal cannula 05/30 1215 O2 Flow Rate 5 / 1215 Resp 51 / 1200 Patient Weight [...] distention Extremities: edema, no clubbing, no cyanosis Neuro/INK MAKER: alert, oriented X 3, CNII-XII intact Results [...] Coagulation INR (0.8 - 1.2) 1.2 PTT (Wirt) (25.0 - 39.5 Seconds) 35.8 PT Patient/Control [...] (Auto) (14.0 - 32.0 %) 7.1 L [place] % (Auto) (4.8 - 9.0 %) 9.3 H Eos % (Auto) (0.3 - 3.7 %) 0.5 Baso % (Auto) (0.0 - 2.0 %) 0.5 Neut # (Auto) (2.0 - 7.6 x10 3/uL) 9.98 H Lymph # (Auto) (1.0 - 3.8 x10 3/uL) 0.86 L [place] # (Auto) (0.1 - 0.8 x10 3/uL) [...] (Man) (0.0 - 0.1 x10 3/uL) 0.00 03/04 03/04 1137 1136 Blood Gas Puncture Site [...] (Auto) (14.0 - 32.0 %) 6.1 L [place] % (Auto) (4.8 - 9.0 %) 9.6 H Eos % (Auto) (0.3 - 3.7 %) 0.2 L Baso % (Auto) (0.0 - 2.0 %) 0.5 Neut # (Auto) (2.0 - 7.6 x10 3/uL) 10.20 H Lymph # (Auto) (1.0 - 3.8 x10 3/uL) 0.76 L [place] # (Auto) (0.1 - 0.8 x10 3/uL) [...] a living will or medical power of corporate attorney Patient is a full code Quality: Gen Med Crit Care VTE Prophylaxis VTE prophylaxis initiated: yes Current Medications Current medication review: I attest that the foregoing medication list in the medical record is true, accurate, and complete to the best of my knowledge. Advanced Care Plan 65 or Older Discussed with: patient Discussion included: living will, power of corporate attorney, code status at 1703 RPT #:[id number] END OF REPORT [facility] 2023-05-31 12:30:00 [facility] ([facility]) Cardiology Consultation REPORT#:[id number] REPORT STATUS: Signed REPORT INITIALIZATION DATE:05/31/23 TIME: 1230 PATIENT: MINDY CARTER UNIT #: [id number] ROOM/BED: [place] [address] : [birth year] AGE: 67 SEX: M ATTEND: [...] denies smoking recreational drugs. reported that known business systems architect is planning on doing ultrasound of carotids. [...] Known Allergies (05/31/23) at 1318 at 0902 [facility] #:[id number] END OF REPORT [facility] 2023-05-31 11:34:00 [id number] [address] PATIENT NAME: MINDY CARTER ADMIT DATE: 05/31/23 ACCOUNT NO: [id number] ROOM NO: [facility] AGE: 67 REPORT TYPE: eELECTROCARDIOGRAM REPORT SEX: M ADMITTING PHYSICIAN:Eleonora Mai MD ATTENDING PHYSICIAN:Eleonora Mai MD Order: [id number] Test Reason : sob/chf Test Date/Time Stamp: [...] MD at 1505 PATIENT NAME: MINDY CARTER [facility] 2023-05-31 11:27:00 [facility] ([facility]) EMERGENCY PROVIDER REPORT REPORT#:[id number] REPORT STATUS: Signed DATE:05/31/23 TIME: 1127 PATIENT: MINDY CARTER UNIT #: [id number] ROOM/BED: [place] [address] AGE: 67 SEX: M PCP PHYS: No Primary or Family Physician SERVICE AUTHOR: Mendle Walker MD * ALL edits or amendments [...] (Auto) (14.0 - 32.0 %) 6.1 L [place] % (Auto) (4.8 - 9.0 %) 9.6 H Eos % (Auto) (0.3 - 3.7 %) 0.2 L Baso % (Auto) (0.0 - 2.0 %) 0.5 Neut # (Auto) (2.0 - 7.6 x10 3/uL) 10.20 H Lymph # (Auto) (1.0 - 3.8 x10 3/uL) 0.76 L [place] # (Auto) (0.1 - 0.8 x10 3/uL) [...] Impression By: Rosendo - Gabrielle Jean M.D. ECG #1 Interpretation ECG Documented [...] 51 03/04 1200 O2 Delivery Nasal cannula / 1141 O2 Flow Rate 4 /04 1141 Temp 97.8 03/04 1120 All vital [...] billable procedures excluded from time. at 1933 [facility] #:[id number] END OF REPORT [facility]
--- NOTE | 2024-07-24 10:00 | RAD REPORT ---
EXAMINATION: XR LEFT FOOT CLINICAL INDICATION: great toe DM ulcer;Pain TECHNIQUE: Multiple projections of the left foot were obtained. COMPARISON: No prior exam. FINDINGS: Soft tissue swelling is seen affecting the great toe. Focal ulceration is seen anteriorly a long the plantar aspect. Subtle demineralization of the distal tuft medially of the great toe likely represents osteomyelitis. No soft tissue gas.
--- NOTE | 2024-07-24 10:56 | ER ---
Nurse's Notes [facility] Name: Devonte Gil Age: 68 yrs Sex: Male : 1955 Arrival Date: 07/24/2024 Time: 09:25 Bed 8 Private MD: Diagnosis: Osteomyelitis, unspecified;Cellulitis of left lower limb;Essential (primary) hypertension Presentation: 07/24 09:36 Chief complaint: Patient states: non healing wound to left great toe X 1 month. iw Coronavirus screen: At this time, the client does not indicate any symptoms associated with coronavirus-19. Ebola Screen: No symptoms or risks identified at this time. Initial Sepsis Screen: Does the patient meet any 2 criteria? No. Patient's initial sepsis screen is negative. Does the patient have a suspected source of infection? No. Patient's initial sepsis screen is negative. Risk Assessment: Do you want to hurt yourself or someone else? Patient reports no desire to harm self or others. Onset of symptoms was May 2024. 09:36 Method Of Arrival: Ambulatory iw 09:36 Acuity: FABI 3 iw Historical: - Allergies: 09:38 No Known Allergies; iw - Home Meds: 09:38 aspirin 81 mg Oral tablet daily [Active]; clopidogrel 75 mg Oral tablet [Active]; iw hydrochlorothiazide 50 mg Oral tablet daily [Active]; Jardiance 10 mg Oral tablet daily [Active]; levothyroxine 50 mcg capsule daily [Active]; metformin 500 mg Oral tablet 2 times per day [Active]; metoprolol tartrate 25 mg Oral tablet daily [Active]; Plavix 75 mg Oral tablet 1 tab daily [Active]; potassium chloride 10 mEq Oral capsule 2 times per day [Active]; pravastatin 40 mg Oral tablet every day at bedtime [Active]; terazosin 2 mg Oral capsule daily [Active]; spironolactone 25 mg Oral tablet daily [Active]; Iron CR Oral 65 mg daily [Active]; - PMHx: 09:37 Diabetes - NIDDM; High Cholesterol (Hypertension); Hypertension; kidney disease; iw - PSHx: 09:38 Coronary artery bypass graft; iw - Immunization history:: Adult Immunizations up to date. - Infectious Disease History:: Denies. - Social history:: Smoking status: Patient denies any tobacco usage or history of. Screenin:41 [facility] ED Fall Risk Assessment (Adult) History of falling in the last 3 months, ap3 including since admission No falls in past 3 months (0 pts) Confusion or Disorientation No (0 pts) Intoxicated or Sedated No (0 pts) Impaired Gait No (0 pts) Mobility Assist Device Used No (0 pt) Altered Elimination No (0 pt) Score/Fall Risk Level 0 - 2 = Low Risk Oriented to surroundings, Maintained a safe environment, Educated pt \T\ family on fall prevention, incl call for assistance when getting out of bed, Assessed \T\ reinforced patient's understanding of fall precautions, Hourly rounding (assess needs \T\ fall precautionary measures) done, Used ambulatory aids as needed (educated on \T\ assisted with). Abuse screen: Denies threats or abuse. Nutritional screening: No deficits noted. Tuberculosis screening: No symptoms or risk factors identified. Assessment: 13:42 General: Appears in no apparent distress. Behavior is calm, cooperative, appropriate ap3 for age. Pain: Complains of pain in left foot, left great toe. Neuro: Level of Consciousness is awake, alert, obeys commands, Oriented to person, place, time, situation, Appropriate for age. Cardiovascular: Patient's skin is warm and dry. Respiratory: Airway is patent Respiratory effort is even, unlabored, Respiratory pattern is regular, symmetrical. Vital Signs: 09:36 BP 144 / 75; Pulse 60; Resp 18; Temp 97.9; Pulse Ox 100% on R/A; Weight 71.21 kg; iw Height 5 ft. 9 in. ; Pain 10/10; 09:36 Body Mass Index 23.18 (71.21 kg, 175.26 cm) iw 09:36 Pain Scale: Adult iw ED Course: 09:28 Patient arrived in ED. al6 09:28 Real Price DO is Attending Physician. ms3 09:37 Triage completed. iw 09:56 Foot Left 3 View XRAY In Process Unspecified. EDMS 10:53 Iwona Glover RN is Primary Nurse. ap3 10:55 Rigoberto Waldrop MD is Hospitalizing Provider. ms3 11:08 Inserted saline lock: 22 gauge in right antecubital area, using aseptic technique. ap3 Blood collected. Flushed with 10 mL NS. 13:42 No provider procedures requiring assistance completed. Patient admitted, IV remains in ap3 place. 13:42 Arm band placed on right wrist. ap3 13:43 Patient has correct armband on for positive identification. Call light in reach. Side ap3 rails up X2. Provided Education on: medications prior to administration . Administered Medications: 11:19 Drug: Piperacillin-Tazobactam IVPB 3.375 grams IVPB once over 60 mins; (mix in NS 100 ap3 mL) Route: IVPB; Infused Over: 60 mins; Site: right antecubital; 12:31 Follow up: IV Status: Completed infusion; IV Intake: 100ml ap3 11:37 Not Given (admitting provider discretion-dosing will be changed with admitting ap3 orderss): vancomycin1 grams IVPB once over 2 hrs Medication: 13:43 VIS not applicable for this client. ap3 Intake: 12:31 IV: 100ml; Total: 100ml. ap3 Outcome: 10:55 Decision to Hospitalize by Provider. ms3 13:42 Admitted to ER Hold. Please see [facility] for further documentation. ap3 13:42 Condition: good 13:42 Discharge instructions given to patient, Instructed on the need for admit, 17:06 Patient left the ED. ap3 Signatures: Dispatcher [employer] EDMS Beatriz Sanchez RN RN iw Prokisch, Amanda, RN RN ap3 eRal Price DO DO ms3 Jada Camarena6
--- NOTE | 2024-07-24 10:56 | EDPHYS ---
Physician Documentation [facility] Name: Devonte Gil Age: 68 yrs Sex: Male : 1955 Arrival Date: 07/24/2024 Time: 09:25 Bed 8 Private MD: ED Physician Real Price HPI: 07/24 09:42 This 68 yrs old Male presents to ER via Ambulatory with complaints of Wound ms3 Check. 09:42 68-year-old male with past medical history of diabetes, hypertension, hyperlipidemia, ms3 kidney disease presents to the emergency department for left great toe ulcer that has been ongoing for greater than 1 month. Patient states yesterday the area became tender to touch and he started experiencing swelling of his foot and lower leg. He denies any alleviating factors. He states the pain is worse with touching his toe.. Historical: - Allergies: 09:38 No Known Allergies; iw - Home Meds: 09:38 aspirin 81 mg Oral tablet daily [Active]; clopidogrel 75 mg Oral tablet [Active]; iw hydrochlorothiazide 50 mg Oral tablet daily [Active]; Jardiance 10 mg Oral tablet daily [Active]; levothyroxine 50 mcg capsule daily [Active]; metformin 500 mg Oral tablet 2 times per day [Active]; metoprolol tartrate 25 mg Oral tablet daily [Active]; Plavix 75 mg Oral tablet 1 tab daily [Active]; potassium chloride 10 mEq Oral capsule 2 times per day [Active]; pravastatin 40 mg Oral tablet every day at bedtime [Active]; terazosin 2 mg Oral capsule daily [Active]; spironolactone 25 mg Oral tablet daily [Active]; Iron CR Oral 65 mg daily [Active]; - PMHx: 09:37 Diabetes - NIDDM; High Cholesterol (Hypertension); Hypertension; kidney disease; iw - PSHx: 09:38 Coronary artery bypass graft; iw - Immunization history:: Adult Immunizations up to date. - Infectious Disease History:: Denies. - Social history:: Smoking status: Patient denies any tobacco usage or history of. ROS: 09:42 Constitutional: Negative for fever, and chills. Cardiovascular: Negative for chest ms3 pain, and palpitations. Respiratory: Negative for shortness of breath, cough, wheezing, and pleuritic chest pain, Abdomen/GI: Negative for abdominal pain, nausea, vomiting, diarrhea, and constipation, MS/Extremity: Negative for injury and deformity, 09:42 Skin: Positive for ulceration, of the Left great toe, Exam: 09:42 Constitutional: This is a well developed, well nourished patient who is awake, alert, ms3 and in no acute distress. Cardiovascular: Regular rate and rhythm with a normal S1 and S2. No gallops, murmurs, or rubs. Normal PMI, no JVD. No pulse deficits. Respiratory: Lungs have equal breath sounds bilaterally, clear to auscultation and percussion. No rales, rhonchi or wheezes noted. No increased work of breathing, no retractions or nasal flaring. Abdomen/GI: Soft, non-tender, with normal bowel sounds. No distension or tympany. No guarding or rebound. No evidence of tenderness throughout. MS/ Extremity: Pulses equal, no cyanosis. Neurovascular intact. Full, normal range of motion. 09:42 Skin: cellulitis, that is mild, on the left foot, Left plantar surface of great toe ulceration/discoloration of toe.. Vital Signs: 09:36 BP 144 / 75; Pulse 60; Resp 18; Temp 97.9; Pulse Ox 100% on R/A; Weight 71.21 kg; iw Height 5 ft. 9 in. ; Pain 10/10; 09:36 Body Mass Index 23.18 (71.21 kg, 175.26 cm) iw 09:36 Pain Scale: Adult iw MDM: 09:36 Medical Screening Exam initiated ms3 09:42 Differential diagnosis: cellulitis, Diabetic foot ulcer versus osteomyelitis. ms3 10:54 Data reviewed: vital signs, nurses notes, radiologic studies, and as a result, I will ms3 admit patient. Consideration of Admission/Observation Patient was admitted/placed on observation. Management of patient was discussed with the following: Hospitalist: Khanh Cornejo, GRAPHICS EDITOR. Pipe Or Steam Fitter Furnace Installer: Dr Kwadwo Rao. I considered the following discharge prescriptions or medication management in the emergency department Medications were administered in the Emergency Department. See MAR. Counseling: I had a detailed discussion with the patient and/or guardian regarding the historical points, exam findings, and any diagnostic results supporting the discharge/admit diagnosis, radiology results, the need for further work-up and treatment in the hospital. 07/24 09:41 Order name: CBC with Diff; Complete Time: 12:01 ms3 07/24 09:41 Order name: BMP; Complete Time: 12:01 ms3 07/24 11:13 Order name: Urinalysis w/ reflexes EDMS 07/24 11:13 Order name: Basic Metabolic Panel EDMS 07/24 11:13 Order name: Basic Metabolic Panel EDMS 07/24 11:13 Order name: Basic Metabolic Panel EDMS 07/24 11:14 Order name: Basic Metabolic Panel EDMS 07/24 11:14 Order name: Basic Metabolic Panel EDMS 07/24 11:14 Order name: Basic Metabolic Panel EDMS 07/24 11:14 Order name: CBC with Automated Diff EDMS 07/24 11:14 Order name: CBC with Automated Diff EDMS 07/24 11:14 Order name: CBC with Automated Diff EDMS 07/24 11:14 Order name: CBC with Automated Diff EDMS 07/24 11:14 Order name: CBC with Automated Diff EDMS 07/24 11:14 Order name: CBC with Automated Diff EDMS 07/24 11:14 Order name: Magnesium EDMS 07/24 11:14 Order name: Magnesium EDMS 07/24 11:14 Order name: Magnesium EDMS 07/24 11:14 Order name: Magnesium EDMS 07/24 11:14 Order name: Magnesium EDMS 07/24 11:14 Order name: Magnesium EDMS 07/24 11:17 Order name: C-Reactive Protein EDMS 07/24 11:17 Order name: C-Reactive Protein EDMS 07/24 11:17 Order name: C-Reactive Protein EDMS 07/24 11:17 Order name: C-Reactive Protein EDMS 07/24 11:17 Order name: Hemoglobin A1c EDMS 07/24 11:17 Order name: Hemoglobin A1c EDMS 07/24 11:17 Order name: Lipid Profile EDMS 07/24 11:17 Order name: Lipid Profile EDMS 07/24 09:41 Order name: Foot Left 3 View XRAY; Complete Time: 10:23 ms3 07/24 11:05 Order name: Foot Left W/Con EDMS 07/24 13:52 Order name: XRAY Chest (1 view) ap3 07/24 15:32 Order name: RAD EDMS 07/24 16:35 Order name: US EDMS 07/24 16:37 Order name: US EDMS 07/24 11:09 Order name: CONS Physician Consult EDMS 07/24 11:13 Order name: CONS [facility] Cons EDMS Administered Medications: 11:19 Drug: Piperacillin-Tazobactam IVPB 3.375 grams IVPB once over 60 mins; (mix in NS 100 ap3 mL) Route: IVPB; Infused Over: 60 mins; Site: right antecubital; 12:31 Follow up: IV Status: Completed infusion; IV Intake: 100ml ap3 11:37 Not Given (admitting provider discretion-dosing will be changed with admitting ap3 orderss): vancomycin1 grams IVPB once over 2 hrs Disposition Summary: 07/24/24 10:55 Hospitalization Ordered Notes: Hospitalization Status: Inpatient Admission ms3 Provider: Rigoberto Waldrop ms3 Condition: Stable ms3 Problem: new ms3 Symptoms: are unchanged ms3 Bed/Room Type: Standard ms3 Location: Telemetry/MedSurg (Inpatient)(07/24/24 15:35) bd Room Assignment: [facility](07/24/24 15:35) bd Diagnosis - Osteomyelitis, unspecified ms3 - Cellulitis of left lower limb ms3 - Essential (primary) hypertension ms3 Forms: - Medication Reconciliation Form ms3 - SBAR form ms3 - Leadership Thank You Letter ms3 Signatures: Dispatcher [employer] EDMS Jennifer Caldera Irene, RN RN iw Iwona Glover RN RN ap3 Real Price DO DO ms3 Carli Shoemaker RN RN kb3 Corrections: (The following items were deleted from the chart) 09:42 09:42 CBC+H.LAB.BRZ ordered. EDMS EDMS 09:42 09:42 BASIC METABOLIC PANEL+C.LAB.BRZ ordered. EDMS EDMS 09:42 09:42 Foot Left 3 View+RAD.RAD.BRZ ordered. EDME EDMS 10:57 10:54 Management of patient was discussed with the following: Hospitalist: Dr Waldrop. ms3ms3 13:27 10:55 Telemetry/MedSurg (Inpatient) ms3 kb3 13:27 10:55 ms3 kb3 15:35 13:27 [facility] ER HOLD kb3 bd 15:35 13:27 ERHOLD- kb3 bd
[2024-07-24] MEDS ORDERED: ONDANSETRON 4 MG/2 ML VIAL IV PRN (11:07)
[2024-07-24] MEDS ORDERED: ACETAMINOPHEN 325 MG TABLET PO PRN (11:07)
[2024-07-24] MEDS ORDERED: NA CHLORIDE 0.9% 100 ML ONE (11:11)
[2024-07-24] MEDS ORDERED: PIPERACIL/TAZO 3.375 GM VIAL IV ONE (11:11)
[2024-07-24 11:15] LABS: Absolute Basophils 0.1 K/uL (0-0.5); Absolute Lymphocytes (CBC) 0.4 K/uL (0.7-4.9); Absolute Monocytes 0.8 K/uL (0.1-1.3); Basophils % 0.6 % (0-1.3); Eosinophils % 0.2 % (0-4.4); Hemoglobin 13.5 g/dL (13.6-17.9); Lymphocytes % 4.8 % (15.3-44.8); MCH 33.1 pg (27.0-35.0); MCHC 34.7 g/dL (32.0-36.0); MCV 95.2 fL (80-100); MPV 10.3 fL (7.6-11.3); Monocytes % 9.4 % (3.3-12.3); Platelets 130 thou/uL (152-406); RBC Red Blood Cell Count 4.09 M/uL (4.33-5.43); Red Cell Distribution Width 13.6 % (12.1-15.2)
[2024-07-24] MEDS: INSULIN REGULAR (HUMAN) 100 UNIT/ML SQ SCH (11:30)
[2024-07-24] MEDS: NA CHLORIDE 0.9% 1,000 ML IV SCH (12:00)
[2024-07-24] MEDS: VANCOMYCIN HCL 125 MG CAPSULE PO SCH (12:02)
[2024-07-24 12:03] VITALS: BMI 23.1
--- NOTE | 2024-07-24 12:04 | P.CNS ---
Date of Consult: 07/24/24 Reason for Consult: NIYA/ CKD Requesting Physician: Andrea Shah Primary Care Provider: Nemo Mederos NP Chief Complaint: Left foot ulcer History of Present Illness: 68-year-old male with a past medical history diabetes, hyperlipidemia, hypertension, kidney disease, presents to the emergency room for left foot toe ulcer. He was referred to the emergency room by Dr. Rao for evaluatioon of osteomyelitis of the left lower extremity. He reports left great toe ulcer that has been going on for more than a month is getting progressively worse. He reports lower extremity foot tenderness to palpitation, swelling, and pain that is getting progressively worse. He reports doing daily dressing changes, but is not helping the wound. He reports left foot pain is 10 out of 10. Left lower extremity foot x-ray e great toe. Focal ulceration is seen anteriorly along the plantar aspect. Subtle demineralization of the distal tuft medially of the great toelikely represents osteomyelitis. No soft tissue gas. No leukocytosis,, positive for left shift 85, microcytic anemia 13.5, 39.0,, CKD, BUN 58 creatinine 3.88, GFR 16, plan to admit for osteomyelitis left lower extremity, surgery, nephrology to consult 09:42 This 68 yrs old Male presents to ER via Ambulatory with complaints of Wound ms3 Check. 09:42 68-year-old male with past medical history of diabetes, hypertension, hyperlipidemia, ms3 kidney disease presents to the emergency department for left great toe ulcer that has been ongoing for greater than 1 month. Patient states yesterday the area became tender to touch and he started experiencing swelling of his foot and lower leg. He denies any alleviating factors. He states the pain is worse with touching his toe. Allergies No Known Allergies Allergy (Verified 04/19/20 11:56) Home medications list reviewed: Yes Home Medications: Metformin ER [Glucophage ER*] 500 mg PO BIDWM 07/01/18 Terazosin HCl 2 mg PO BEDTIME 07/01/18 hydroCHLOROthiazide [Hydrochlorothiazide] 50 mg PO DAILY 07/01/18 Pravastatin [Pravachol*] 40 mg PO BEDTIME 06/23/23 Amiodarone HCl [Cordarone*] 200 mg PO TID #90 tab 06/28/23 Aspirin [Aspirin EC 81 MG] 81 mg PO DAILY #30 06/28/23 Cholecalciferol (Vitamin D3) [Vitamin D 5,000 IU Cap*] 5,000 unit PO DAILY cap 06/28/23 Ferrous Sulfate [Ferrous Sulfate*] 325 mg PO DAILY tab 06/28/23 Iron/FA/Vit B-Com W/C [Hemocyte Plus*] 1 tab PO DAILY WITH BREAKFAST #30 tab 06/28/23 Metoprolol Tartrate [Lopressor*] 12.5 mg PO BID 6AM 6PM #30 tab 06/28/23 Montelukast [Singulair*] 10 mg PO DAILY #30 tab 06/28/23 Pantoprazole [Protonix Tab*] 40 mg PO DAILYAC #30 tab 06/28/23 Potassium Oral Tab [Klor-Con 10 mEq Tab*] 20 meq PO BID #120 tab 06/28/23 Spironolactone [Aldactone*] 25 mg PO [id number] #60 tab 06/28/23 - Past Medical/Surgical History Diabetic: Yes -: Hx HCV -: HTN -: DM II with Polyneuropathy -: CKD II with Proteinuria (Dr. Wilcox/ Dr. Winn) -: Diastolic CHF LVEF 50-55% -: Appendectomy - Family History Father Medical History: Hypertension, Diabetes - Social History Alcohol use: No CD- Drugs: Yes Caffeine use: No Review of Systems 10-point ROS is otherwise unremarkable General: Weakness, Malaise Cardiovascular: Edema Musculoskeletal: Foot Pain Physical Examination General: Oriented x3, Cooperative HEENT: Atraumatic Neck: Supple Respiratory: Clear to auscultation bilaterally Cardiovascular: Regular rate/rhythm, Edema (Left foot) Gastrointestinal: Soft and benign, Non-distended Musculoskeletal: No clubbing, No contractures Integumentary: No rashes, No cyanosis, Diabetic ulcer Neurological: Normal speech Blood work reviewed in the chart. Imagings Data: EXAMINATION: XR LEFT FOOT CLINICAL INDICATION: great toe DM ulcer;Pain TECHNIQUE: Multiple projections of the left foot were obtained. COMPARISON: No prior exam. FINDINGS: Soft tissue swelling is seen affecting the great toe. Focal ulceration is seen anteriorly along the plantar aspect. Subtle demineralization of the distal tuft medially of the great toe likely represents osteomyelitis. No soft tissue gas. Conclusions/Impression: Stage III NIYA may be due to hypovolemia and relative hypotension CKD III with Proteinuria -No NSAIDs -Continue IVF Hyponatremia -Continue IVF with NS HTN with CKD Paroxysmal Afib -Continue Metoprolol -Hold Terazosin at this time DM II with CKD -RISS DM II with Left Toe Ulcer concerning for osteomyelitis -MRI foot pending -Surgery and ID following -Wound care as ordered -Continue abx; monitor vanc level Anemia in chronic illness Hx Iron Deficiency Thrombocytopenia -Monitor CBC Hospitalist and ER notes reviewed Thank you kindly for the consultation
[2024-07-24] MEDS ORDERED: NA CHLORIDE 0.9% 1,000 ML ONE (13:19)
--- NOTE | 2024-07-24 13:47 | CON ---
Date of Consultation: 07/24/2024 Reason For Consultation: Infected wound, left foot, with cellulitis and osteomyelitis. History Of Present Illness: The patient is a 68-year-old gentleman with multiple medical problems wh o presents with a left great toe ulcer that has been there for 1-2 months. Yesterday, he noticed stephen t the area became more tender and he started having swelling, redness, increasing pain, and today he came to the emergency room. He denies any fevers or chills. He does have occasional nausea and vomi ting. He quit drinking alcohol 6 months ago. He denies any sore throat, runny nose, cough, headache s, dizziness, chest pain. Review of Systems: Otherwise, unremarkable. Past Medical History: Type 2 diabetes, high cholesterol, hypertension, kidney disease, cirrhosis. Past Surgical History: CABG. Allergies: NO ALLERGIES. Social History: The patient smokes marijuana occasionally. He does not drink, he has quit 6 months ago, when the patient was diagnosed with cirrhosis. Physical Examination: Vital Signs: Stable. He is currently afebrile. General: He is awake and alert. Head and Neck: No masses. Chest: Clear. Heart: S1, S2. Abdomen: Soft. Extremities: Palpable dorsalis pedis pulse bilaterally. Posterior tibial is somewhat diminished. T here is approximately a 2.5 cm ulcer on the plantar aspect of the left great toe with moderate amount of fibrin, perhaps some necrosis and perhaps some fluctuance around the wound. There is redness ext ending from the great toe all the way to the foot and about half the lower leg. There is warmth and edema as well. There is no groin tenderness. Neurologic: Nonfocal. Laboratory Data: Pending. His x-ray of the foot reveals findings consistent with osteomyelitis of t he distal phalanx of the left foot. Assessment: Left foot infected wound with osteomyelitis and cellulitis. Recommendations: The patient needs to be admitted for IV antibiotics and then arterial Doppler to ev aluate his vascular status as well as an MRI to further determine the extent of the osteo as well as to see if he has any fluid collections. The patient probably will need debridement of the left great toe infected wound. We will make that determination after the MRI is done. We will keep the patien t NPO after midnight. We will follow this patient while in the hospital. The patient will need 6 we eks of IV antibiotics, local wound care, and patient can follow up with [facility] upon discharge. LISA/BEVERLY Voice ID: [id number] Report ID: [id number]
--- NOTE | 2024-07-24 14:09 | P.HP ---
Certification for Inpatient Patient admitted to: Inpatient Practitioner: I am a practitioner with admitting privileges, knowledge of patient current condition, hospital course, and medical plan of care. Services: Services provided to patient in accordance with Admission requirements found in Title 42 Section 412.3 of the Code of Federal Regulations Patient History Date of Service: 07/24/24 Reason for admission: Left great toe ulcer History of Present Illness: 68-year-old male with a past medical history diabetes, hyperlipidemia, hypertension, kidney disease, presents to the emergency room for left foot toe ulcer. He was referred to the emergency room by Dr. Rao for evaluatioon of osteomyelitis of the left lower extremity. He reports left great toe ulcer that has been going on for more than a month is getting progressively worse. He reports lower extremity foot tenderness to palpitation, swelling, and pain that is getting progressively worse. He reports doing daily dressing changes, but is not helping the wound. He reports left foot pain is 10 out of 10. Left lower extremity foot x-ray e great toe. Focal ulceration is seen anteriorly along the plantar aspect. Subtle demineralization of the distal tuft medially of the great toelikely represents osteomyelitis. No soft tissue gas. No leukocytosis,, positive for left shift 85, microcytic anemia 13.5, 39.0,, CKD, BUN 58 creatinine 3.88, GFR 16, plan to admit for osteomyelitis left lower extremity, surgery, nephrology to consult Allergies No Known Allergies Allergy (Verified 04/19/20 11:56) Home Medications: Metformin ER [Glucophage ER*] 500 mg PO BIDWM 07/01/18 Terazosin HCl 2 mg PO BEDTIME 07/01/18 hydroCHLOROthiazide [Hydrochlorothiazide] 50 mg PO DAILY 07/01/18 Gabapentin 100 mg PO DAILY 06/23/23 Pravastatin [Pravachol*] 40 mg PO BEDTIME 06/23/23 glyBURIDE [Glyburide] 5 mg PO DAILY 06/23/23 Amiodarone HCl [Cordarone*] 200 mg PO TID #90 tab 06/28/23 Aspirin [Aspirin EC 81 MG] 81 mg PO DAILY #30 06/28/23 Azelastine [Astelin 137MCG/Metered Warren*] 1 sprays MARCOS BID #1 bottle 06/28/23 Benzonatate [Tessalon Perle*] 100 mg PO TID PRN #30 cap 06/28/23 Bumetanide [Bumex*] 2 mg PO [id number] #120 tab 06/28/23 Cholecalciferol (Vitamin D3) [Vitamin D 5,000 IU Cap*] 5,000 unit PO DAILY cap 06/28/23 Cyanocobalamin [Vitamin B-12*] 500 mcg PO DAILY tab 06/28/23 Docusate/Senna [Senokot-S*] 2 tab PO BEDTIME PRN tab 06/28/23 Ferrous Sulfate [Ferrous Sulfate*] 325 mg PO DAILY tab 06/28/23 Glucerna Shake [Glucerna*] 237 ml PO BID can 06/28/23 Insulin Glargine-Yfgn [Semglee (Yfgn)] 40 unit SQ BID 30 Days vial 06/28/23 Iron/FA/Vit B-Com W/C [Hemocyte Plus*] 1 tab PO DAILY WITH BREAKFAST #30 tab 06/28/23 Melatonin [Melatonin*] 6 mg PO BEDTIME PRN PRN 06/28/23 Metoprolol Tartrate [Lopressor*] 12.5 mg PO BID 6AM 6PM #30 tab 06/28/23 Montelukast [Singulair*] 10 mg PO DAILY #30 tab 06/28/23 Mounjaro Pen (Tirzepatide) 2ml 12.5 mg SQ Q7D #1 06/28/23 Oxycodone HCl [Oxyir (Oxycodone HCl Imr)*] 5 mg PO Q4H PRN #60 tab 06/28/23 Pantoprazole [Protonix Tab*] 40 mg PO DAILYAC #30 tab 06/28/23 Potassium Oral Tab [Klor-Con 10 mEq Tab*] 20 meq PO BID #120 tab 06/28/23 Spironolactone [Aldactone*] 25 mg PO [id number] #60 tab 06/28/23 Thiamine HCl [Vitamin B-1*] 100 mg PO DAILY #30 06/28/23 - Past Medical/Surgical History Has patient received pneumonia vaccine in the past: No Diabetic: Yes -: Hx HCV -: HTN -: DM II with Polyneuropathy -: CKD II with Proteinuria (Dr. Wilcox/ Dr. Winn) -: Diastolic CHF LVEF 50-55% -: Appendectomy - Family History Father -: Hypertension, Diabetes - Social History Alcohol use: No CD- Drugs: Yes Caffeine use: No Review of Systems 10-point ROS is otherwise unremarkable Physical Examination - Physical Exam General: Alert, In no apparent distress, Oriented x3 HEENT: Atraumatic, Normocephalic Neck: Supple, JVD not distended Respiratory: Clear to auscultation bilaterally, Normal air movement Cardiovascular: No edema, Normal pulses, Regular rate/rhythm, Normal S1 S2 Capillary refill: <2 Seconds Gastrointestinal: Normal bowel sounds, Soft and benign Musculoskeletal: Other (Left lower extremity pain, +1 edema,) Integumentary: Other (Left great toe ulcer) Neurological: Normal speech, Normal strength at 5/5 x4 extr Assessment and Plan - Problems (Diagnosis) (1) Osteomyelitis of left lower extremity Current Visit: Yes Status: Acute (2) Ulcer of great toe Current Visit: Yes Status: Acute (3) Acute renal failure Current Visit: Yes Status: Acute Qualifiers: Acute renal failure type: unspecified Qualified Code(s): N17.9 - Acute kidney failure, unspecified (4) Diabetes type 2 Current Visit: Yes Status: Acute Qualifiers: Diabetes mellitus long term care phlebotomist insulin use: without long term care phlebotomist use Diabetes mellitus complication detail: with foot ulcer (5) Hyperlipidemia Current Visit: Yes Status: Acute Qualifiers: Hyperlipidemia type: unspecified Qualified Code(s): E78.5 - Hyperlipidemia, unspecified (6) Microcytic anemia Current Visit: Yes Status: Acute (7) Thrombocytopenia Current Visit: Yes Status: Acute - Plan Admit to [facility] Osteomyelitis Left great toe foot ulcer Surgery to consult Infectious disease consult 07/24 n.p.o. for I&d IN AM Wound care per surgery Wound care (cleanse with normal saline, Santyl, cover with Kerlix) Trend culture Vancomycin, Zosyn, Almo, morphine for breakthrough pain, pain control Venous Doppler, arterial Doppler ordered MRI of the left foot ordered PT eval for DME needs volunteer services coordinator, PICC line for IV home health IV antibiotic pending cultures Acute renal failure History of CKD unknown baseline thrombocytopenia microcytic anemia Nephrology to consult Trend kidney function Avoid nephrotoxic medication Renal dose meds Trend H&H Transfuse less than 7 Diabetes type 2 unknown control Sliding scale insulin A1c Blood glucose monitoring Hypertension Hyperlipidemia Resume appropriate home meds Full code DVT heparin Diet renal Disposition plan to discharge home with home health with IV antibiotic Discharge Plan: Home - Advance Directives Does patient have a Living Will: No Does patient have a Durable POA for Healthcare: No - Code Status/Comfort Care Code Status: Full Code Critical Care: No Time Spent Managing Pts Care (In Minutes): 55
[2024-07-24] MEDS ORDERED: PIPER TAZO 3.375 GM in NA CHLORIDE 0.9% 100 ML IV SCH (14:30)
--- NOTE | 2024-07-24 15:31 | RAD REPORT ---
EXAMINATION: ONE VIEW CHEST XR CLINICAL INDICATION: Male, 68 years old.,post PICC placement TECHNIQUE: Frontal chest projection is submitted. Examination is limited by patient positioning and t echnique. COMPARISON: 02/28/2024 20 FINDINGS: Right arm PICC in place with catheter tip at the level of the distal SVC. Lungs are well inflated and clear apart from mild perihilar streaky opacities on the left, could reflect atelectasis or airway changes. No pneumothorax or sizable effusion. The heart is normal in size. Mediastinal contours are unremarkable. IMPRESSION: Satisfactory right arm PICC placement. No focal pneumonia. Nonspecific left perihilar streaky opacities, could reflect atelectasis.
[2024-07-24] MEDS: VANCOMYCIN 1.25 GM in NA CHLORIDE 0.9% 250 ML IV SCH (15:52)
--- NOTE | 2024-07-24 16:35 | RAD REPORT ---
EXAMINATION: US Extrem Venous W Compress Antonio CLINICAL INDICATION: HS MAIN LLE R/O DVT Y TECHNIQUE: Complete bilateral duplex sonography of the BILATERAL lower extremity veins was performed. The examination included compression for vein patency, color Doppler imaging and flow augmentation in response to distal compression of the distal external iliac, common femoral, femoral, popliteal, t ibial, and great and small saphenous veins. COMPARISON: 06/26/2023 FINDINGS: Duplex sonography testing of the veins of the BILATERAL lower extremity was performed. Color flow aster ging shows all veins to be compressible with [id number] color filling. Pulsatile and phasic flow is present within all lower extremity deep and superficial veins examined. IMPRESSION: There is no deep vein or superficial vein thrombosis.
--- NOTE | 2024-07-24 16:37 | RAD REPORT ---
EXAMINATION: US Lower Extremity Arterial Bilat CLINICAL INDICATION: Male, 68 years old. [facility], TECHNIQUE: Arterial duplex ultrasound of the bilateral lower extremities, with real-time, duplex, and spectral flow Doppler evaluation. COMPARISON: No prior exam. FINDINGS: Grayscale: Grayscale: Moderate plaque. Right lower extremity: The common femoral through dorsalis pedis arteries are patent, with triphasic waveforms. Left lower extremity: The common femoral through posterior tibial arteries are patent, with triphasic waveforms. Left dorsa lis pedis artery shows monophasic waveforms. IMPRESSION: No evidence of peripheral vascular disease on the right. Mild distal peripheral vascular disease on t he left.
[2024-07-24] MEDS: HEPARIN 5000 UNIT/ML 1 ML VIAL SQ SCH (17:00)
[2024-07-24] MEDS: MORPHINE 2 MG/ML SYR IV PRN (17:46)
[2024-07-24] MEDS: METOPROLOL TAR 25 MG TAB PO SCH (18:00)
[2024-07-24] MEDS ORDERED: TERAZOSIN HCL 1 MG CAP PO SCH (21:00)
[2024-07-24] MEDS ORDERED: HOME MED 1 EA UNK (Pravastatin [Pravachol*] 40 MG/TAB Tab) PO SCH (21:00)
[2024-07-24] MEDS ORDERED: POTASSIUM CL SA 10 MEQ TAB PO SCH (21:00)
[2024-07-24] MEDS ORDERED: TERAZOSIN HCL 2 MG PO SCH (21:00)
[2024-07-24] MEDS: ATORVASTATIN 10 MG TAB PO SCH (21:12)
[2024-07-24] MEDS: Mupirocin NASAL 2 APPL/1 GM TUBE NAS SCH (21:12)
[2024-07-24] MEDS: AMIODARONE HCL 200 MG TAB PO SCH (21:48)
--- NOTE | 2024-07-24 22:15 | RAD REPORT ---
EXAM: MR Foot Left Wo Cont HISTORY: Evaluate for osteomyelitis [facility] N eval OM COMPARISON: Left foot radiographs 07/24/2024 at 9:49 AM TECHNIQUE: Multiplanar multisequence MR images were obtained of the left foot without contrast. FINDINGS: T1 hypointense, T2 hyperintense signal, involving the first digit distal phalanx, sparing the base of the phalanx. Soft tissue irregularity along the tip of the first digit plantar aspect suggesting ulcer/wound. No other marrow signal abnormality is identified. No focal fluid collection is seen in t he soft tissues within limits of noncontrast evaluation. Mild midfoot degenerative changes. No significant effusion. Soft tissue irregularity with susceptibility artifact along the plantar aspect of the fifth digit at the level of the proximal phalanx, could represent another smaller ulcer. The muscles and tendons appear intact. IMPRESSION: Marrow signal abnormality involving the first digit distal phalanx sparing the base, concerning for o ngoing osteomyelitis. Soft tissue wound/ulcer along the first digit distal phalanx plantar aspect. Another suspected wound/ ulcer at the level of the proximal hallux fifth digit. No appreciable fluid collections within limits of noncontrast evaluation.
[2024-07-24] MEDS: PIPER TAZO 3.375 GM in NA CHLORIDE 0.9% 100 ML IV SCH (23:52)
[2024-07-25] MEDS: HYDROCODONE/APAP 7.5/325 MG TAB PO PRN (04:08)
[2024-07-25] MEDS: D5 0.9 NS 1,000 ML IV SCH (06:29)
[2024-07-25 06:30] LABS: Absolute Lymphocytes (CBC) 0.6 K/uL (0.7-4.9); Absolute Monocytes 0.7 K/uL (0.1-1.3); Absolute Neutrophil 5.4 K/uL (1.8-8.0); Basophils % 0.5 % (0-1.3); Eosinophils % 0.5 % (0-4.4); Hematocrit 35.6 % (39.6-49.0); Hemoglobin 12.4 g/dL (13.6-17.9); Lymphocytes % 9.5 % (15.3-44.8); MCH 33.5 pg (27.0-35.0); MCHC 34.8 g/dL (32.0-36.0); MCV 96.3 fL (80-100); MPV 10.5 fL (7.6-11.3); Monocytes % 10.8 % (3.3-12.3); Neutrophils % 78.7 % (41.7-73.7); Platelets 116 thou/uL (152-406); Red Cell Distribution Width 13.6 % (12.1-15.2)
[2024-07-25 06:50] LABS: Anion Gap 8.8 mEq/L (5.0-15.0); Potassium 3.8 mEq/L (3.5-5.1)
[2024-07-25 06:51] LABS: C-Reactive Protein 40.9 mg/L (<3.00); Magnesium 2.1 mg/dL (1.6-2.4)
[2024-07-25] MEDS: FE SULF/FA/VIT B COMP & C TAB PO SCH (08:00)
[2024-07-25] MEDS: POTASSIUM CL SA 10 MEQ TAB PO ONE (08:11)
[2024-07-25] MEDS: FERROUS SULFATE 325 MG TAB PO SCH (08:12)
[2024-07-25] MEDS: ASPIRIN EC 81 MG TAB PO SCH (08:12)
[2024-07-25] MEDS: VITAMIN D 5,000 UNIT CAP PO SCH (08:13)
[2024-07-25] MEDS: PANTOPRAZOLE 40MG TABLET PO SCH (08:13)
[2024-07-25] MEDS: MONTELUKAST 10 MG TAB PO SCH (08:13)
[2024-07-25] MEDS: Ringers Lactate 1,000 ML IV ONE (08:50)
[2024-07-25] MEDS: EPINEPHRINE 1 MG/ML VIAL ONE (09:01)
[2024-07-25] MEDS: dexAMETHasone 10 MG/ML VIAL ONE (09:01)
[2024-07-25] MEDS: ROPLVACAINE HCL 20 ML ONE (09:02)
[2024-07-25] MEDS ORDERED: LIDOCAINE 2% MPF 5 ML VIAL ONE (09:07)
[2024-07-25] MEDS ORDERED: ONDANSETRON 4 MG/2 ML VIAL ONE (09:07)
[2024-07-25] MEDS ORDERED: propofoL 200 MG/20 ML VIAL IV ONE (09:07)
[2024-07-25] MEDS ORDERED: FENTANYL CITR 100 MCG/2 ML ONE (09:07)
[2024-07-25] MEDS: COLLAGENASE 30 GM OINTMENT TOP ONE (09:24)
--- NOTE | 2024-07-25 09:38 | P.OP ---
Date of Service: 07/25/24 Preop diagnosis: Infected wound left great toe with osteo Postop diagnosis: Same Procedure performed: Incision, drainage and debridement of infected wound left great toe to subcutaneous tissue Surgeon: Bin Rao MD Pin Game Machine Inspector: None Estimated blood loss: Minimal Specimen: Pus and debridement tissue Findings: As above Anesthesia: General Complications: None Drains: None Fluids and blood products: Nonapplicable Disposition: Recovery room Operative note: Patient brought to the OR and placed in the supine position. General anesthesia began. Patient prepped and draped in the usual sterile fashion. Anesthesia was given per the block of the left ankle after the procedure is done. Sharp dissection proceeded at the edge of the wound where pus was encountered. Cultures were done. Necrotic tissue was debrided. Approximately 2 x 2 cm area of wound was debrided in total to subcutaneous tissue. Wound irrigated and bleeding controlled with cautery. Santyl dressing applied. Patient awakened and taken to recovery room after the ankle block in good general condition. CC:
[2024-07-25] MEDS: DEXTROSE 10%-WATER 500 ML IV ONE (10:09)
[2024-07-25 12:12] LABS: Specific Gravity 1.008 (1.005-1.030); Urine Bilirubin NEGATIVE (Negative); Urine Blood Negative (Negative); Urine Clarity Clear (Clear); Urine Color Light-Yellow (Yellow); Urine Glucose 4+ (Over) (Negative); Urine Ketones NEGATIVE (Negative); Urine Microscopic Reflex YN NO UMIC; Urine Nitrite NEGATIVE (Negative); Urine Protein NEGATIVE (Negative); Urine Urobilinogen Normal (Normal)
--- NOTE | 2024-07-25 14:00 | P.PN ---
This is an attestation to STAFF OCCUPATIONAL THERAPIST note. Subjective: No chest pain. Chornic shortness of breath. No nausea or vomiting. No abdominal pain. No obvious bleeding. Looks comfortable in the bed. Had surgery this morning, recovering in the PACU, left foot pain is controlled Objective: General appearance: Alert and comfortable CVS: Normal S1 and S2 Lungs: Clear to auscultation bilaterally Abdomen: Soft, bowel sounds present, no tenderness Extremities: No right lower extremity edema. Left foot has dressing on great toe, left leg edema is better today. 68-year-old patient with left foot infection and cellulitis, osteomyelitis on MRI, cont IV antibiotics, ultrasound showed no DVT, arterial Doppler showed no PAD on the right side, mild distal disease on the left side. Chronic anemia and thrombocytopenia, monitor closely. Acute kidney injury, creatinine improving, nephrology consult requested. Hypoglycemia, continue D5 fluids, monitor sugars closely.
[2024-07-25] MEDS: LACTOBACILLUS/ACIDOPHILUS TAB PO SCH (16:00)
[2024-07-25] MEDS: DOCUSATE NA 100 MG CAP PO SCH (20:45)
[2024-07-25] MEDS: NEPRO SHAKE 237 ML CAN PO SCH (20:46)
--- NOTE | 2024-07-25 21:44 | P.PN ---
Date of Service: 07/25/24 Vital Signs Temp Pulse Resp BP Pulse Ox 97.8 F 54 17 114/60 98 07/25/24 20:00 07/25/24 20:00 07/25/24 20:00 07/25/24 20:00 07/25/24 20:00 Medications Acetaminophen (Acetaminophen 325 Mg Tablet) 650 mg PO Q4HP PRN PRN Reason: Pain scale 2-4 (Mild) Hydrocodone Bitart/Acetaminophen (Hydrocodone/Apap 7.5/325 Mg Tab) 1 tab PO Q6H PRN PRN Reason: Pain scale 5-7 (Moderate) Last Admin: 07/25/24 04:08 Dose: 1 tab Amiodarone HCl (Amiodarone Hcl 200 Mg Tab) 200 mg PO DAILY [facility] Aspirin (Aspirin Ec 81 Mg Tab) 81 mg PO DAILY [facility] Last Admin: 07/25/24 08:12 Dose: Not Given Atorvastatin Calcium (Atorvastatin 10 Mg Tab) 10 mg PO BEDTIME [facility] Last Admin: 07/25/24 20:45 Dose: 10 mg Cholecalciferol (Vitamin D 5,000 Unit Cap) 5,000 unit PO DAILY [facility] Last Admin: 07/25/24 08:13 Dose: 5,000 unit Docusate Sodium (Docusate Na 100 Mg Cap) 100 mg PO BID [facility] Last Admin: 07/25/24 20:45 Dose: Not Given Enteral Nutritional Formula (Nepro Shake 237 Ml Can) 240 ml PO TID [facility] Last Admin: 07/25/24 20:46 Dose: 240 ml Ergocalciferol (Drisdol (Vitamin D=Ergocalciferol) 58128 Unit Cap) 50,000 unit PO DAILY [facility] Stop: 07/27/24 09:01 Ferrous Sulfate (Ferrous Sulfate 325 Mg Tab) 325 mg PO DAILY [facility] Last Admin: 07/25/24 08:12 Dose: Not Given Heparin Sodium (Porcine) (Heparin 5000 Unit/Ml 1 Ml Vial) 5,000 unit SQ Q8HR [facility] Last Admin: 07/25/24 16:00 Dose: 5,000 unit Hydromorphone HCl (Hydromorphone Hcl 1 Mg/Ml Inj) 1 mg IV Q4H PRN PRN Reason: Pain scale 8-10 (Sev)-2ND LINE Piperacillin Sod/Tazobactam (Sod 3.375 gm/ Sodium Chloride) 100 mls @ 25 mls/hr IV Q12H [facility] Last Admin: 07/25/24 11:29 Dose: 100 mls Dextrose/Sodium Chloride (D5w Ns 1-Liter Bag) 1,000 mls @ 75 mls/hr IV .[id number] [facility] Last Admin: 07/25/24 20:50 Dose: 1,000 mls Vancomycin HCl 1.25 gm/ Sodium (Chloride) 250 mls @ 166.667 mls/hr IV Q48H [facility] Insulin Human Regular (Insulin Regular (Human) 100 Unit/Ml) 0 unit SQ ACHS [facility]; Protocol Last Admin: 07/25/24 20:47 Dose: 5 unit Lactobacillus Acidoph/Bulgaricus (Lact[facility]idophilus Tab) [facility] Last Admin: 07/25/24 16:00 Dose: 1 tab Montelukast Sodium (Montelukast 10 Mg Tab) 10 mg PO DAILY [facility] Last Admin: 07/25/24 08:13 Dose: Not Given Morphine Sulfate (Morphine 2 Mg/Ml Syr) 2 mg IV Q4H PRN PRN Reason: Pain scale 8-10 (Sev)-1ST LINE Last Admin: 07/24/24 17:46 Dose: 2 mg Multivitamins/Iron (Fe Sulf/Fa/Vit B Comp & C Tab) 1 tab PO DAILY WITH BREAKFAST [facility] Last Admin: 07/25/24 08:00 Dose: Not Given Mupirocin (Mupirocin Nasal 2 Appl/1 Gm Tube) 1 appl MARCOS BID [facility] Stop: 07/29/24 09:01 Last Admin: 07/25/24 20:45 Dose: 1 appl Ondansetron HCl (Ondansetron 4 Mg/2 Ml Vial) 4 mg IV Q6HP PRN PRN Reason: NAUSEA / VOMITING Pantoprazole Sodium (Pantoprazole 40mg Tablet) 40 mg PO ACB [facility]; Protocol Last Admin: 07/25/24 08:13 Dose: 40 mg Assessment/ Plan: Nephrology No dyspnea No chest pain Malaise, fatigue and weakness Anorexia No acute events overnight Vitals, medications, blood work and imaging reviewed in the chart Physical Examination General: Oriented x3, Cooperative HEENT: Atraumatic Neck: Supple Respiratory: Clear to auscultation bilaterally Cardiovascular: Regular rate/rhythm, Edema (Left foot) Gastrointestinal: Soft and benign, Non-distended Musculoskeletal: No clubbing, No contractures Integumentary: No rashes, No cyanosis, Diabetic ulcer Neurological: Normal speech Blood work reviewed in the chart. Imagings Data: EXAMINATION: XR LEFT FOOT CLINICAL INDICATION: great toe DM ulcer;Pain TECHNIQUE: Multiple projections of the left foot were obtained. COMPARISON: No prior exam. FINDINGS: Soft tissue swelling is seen affecting the great toe. Focal ulceration is seen anteriorly along the plantar aspect. Subtle demineralization of the distal tuft medially of the great toe likely represents osteomyelitis. No soft tissue gas. Conclusions/Impression: Stage III NIYA may be due to hypovolemia and relative hypotension CKD III with Proteinuria -No NSAIDs -Continue IVF Hyponatremia -Continue IVF with NS HTN with CKD Paroxysmal Afib -Discontinue Metoprolol due to bradycardia -Hold Terazosin at this time DM II with CKD -RISS DM II with Left Toe Ulcer with osteomyelitis -MRI foot reviewed -Surgery and ID following -Wound care as ordered -Continue abx; monitor vanc level Anemia in chronic illness Hx Iron Deficiency Thrombocytopenia -Monitor CBC Hospitalist & Surgery notes reviewed
--- NOTE | 2024-07-26 00:08 | CON ---
History Of Present Illness: This is a 68-year-old male coming in with significant past medical histo ry of diabetes mellitus, hyperlipidemia, hypertension, kidney disease. The patient came to the [facility] with the left lower extremity cellulitis involving the left big toe, which has osteomyelitis, see n on MRI and currently being treated with Zosyn and vancomycin. The patient had surgical team evalua tion. The patient is now getting IV antibiotic and wound care. Past Medical History: As per HPI. Surgical History: Appendectomy. Family History: Diabetes mellitus and hypertension. Social History: Nonsmoker, nondrinker. Medications: Vancomycin, Zosyn. See MARs for other medications. Allergies: NO KNOWN DRUG ALLERGIES. Review of Systems: Ten-point review was performed. Physical Examination: General: This is a 68-year-old male, lying in bed, not in any acute cardiopulmonary distress. Vital Signs: Temperature 98, pulse 60, respirations 14, blood pressure 113/63. HEENT: Unremarkable. Neck: Supple. Lungs: Basal crackles. Heart: S1, S2. Regular. Abdomen: Soft, nontender. Bowel sounds present. Extremities: Left foot wound noted. Laboratory Data: Shows WBC 6.8, hemoglobin 12.4, platelets are 116. Chemistry shows BUN up to 49, c reatinine 3.3. Wound cultures are pending. Assessment And Plan: 1. This is a 68-year-old male coming in with left big toe osteomyelitis and cellulitis of left foot a nd diabetic foot ulcer with significant history of diabetes mellitus. 2. Renal failure. 3. Anemia of chronic disease. 4. Thrombocytopenia. 5. The patient is currently on empiric antibiotic pending culture results with vancomycin and Zosyn. We will recommend to switch the patient to cefepime and vancomycin as patient has thrombocytopenia a nd renal insufficiency. We will continue to follow. Monitor signs of infection with WBC and fever t jayy. Thank you, Dr. Mendez, for consult. NF/MODL Voice ID: [id number] Report ID: [id number]
--- NOTE | 2024-07-26 01:21 | P.PN ---
Date of Service: 07/26/24 PATIENT'S BS ELEVATED; BLOOD SUGARS HAVE BEEN IN THE HIGH 200'S; SPOKE WITH PT AND HE'S EATING AND DRINKING WELL. WILL PROCEED WITH DISCONTINUING IVF'S AND CONTINUE WITH SLIDING SCALE.
[2024-07-26 06:20] LABS: Absolute Lymphocytes (CBC) 0.2 K/uL (0.7-4.9); Absolute Monocytes 0.6 K/uL (0.1-1.3); Basophils % 0.1 % (0-1.3); Hematocrit 35.7 % (39.6-49.0); Hemoglobin 12.6 g/dL (13.6-17.9); Lymphocytes % 2.5 % (15.3-44.8); MCH 33.8 pg (27.0-35.0); MCHC 35.3 g/dL (32.0-36.0); MCV 95.7 fL (80-100); Monocytes % 7.9 % (3.3-12.3); Neutrophils % 89.5 % (41.7-73.7); Nucleated Red Blood Cells % 0.1 % (0-0); Platelets 112 thou/uL (152-406); RBC Red Blood Cell Count 3.73 M/uL (4.33-5.43); Red Cell Distribution Width 13.5 % (12.1-15.2)
[2024-07-26 06:35] LABS: Anion Gap 9.4 mEq/L (5.0-15.0); C-Reactive Protein 29.6 mg/L (<3.00); Magnesium 2.2 mg/dL (1.6-2.4); Potassium 4.4 mEq/L (3.5-5.1)
[2024-07-26] MEDS: PNEUMOCOCCAL VACCINE 0.5 ML IMVAC ONE (08:00)
[2024-07-26] MEDS: DRISDOL (VITAMIN D=ERGOCALCIFEROL) 50000 UNIT CAP PO SCH (08:44)
[2024-07-26] MEDS: AMIODARONE HCL 200 MG TAB PO SCH (08:54)
[2024-07-26] MEDS: CEFEPIME 1 GM in NA CHLORIDE 0.9% 100 ML IV SCH (09:06)
[2024-07-26] MEDS: VANCOMYCIN 1.25 GM in NA CHLORIDE 0.9% 250 ML IV SCH ×2 (13:00→13:41)
--- NOTE | 2024-07-26 14:08 | PN ---
Date of Progress Note: 07/26/2024 Subjective: The patient is awake, alert. No complaints. Objective: Vital Signs: Stable. Afebrile. The patient has no pain. Laboratory Data: Reviewed. White count is normal. There is slight left shift still, however. Chem istry reviewed. His BUN and creatinine have improved slightly. The Gram stain reviewed. The patien t has gram-positive, coag positive, 3+ staph and 2+ gram-negative rods. Sensitivities are pending. Dressing is clean, dry, intact. However, the foot has much decreased redness, warmth, and edema. It is almost completely gone. Assessment: Status post incision, drainage and debridement of an infected left great toe wound with osteo. Recommendation: Check cultures and adjust antibiotics accordingly. Discharge planning for 6 weeks o f IV antibiotics. Wound care as ordered. [facility]. /MODL Voice ID: [id number] Report ID: [id number]
--- NOTE | 2024-07-26 14:28 | P.PN ---
Subjective Date of Service: 07/26/24 Primary Care Provider: Nemo Mederos NP Chief Complaint: Left foot ulcer Subjective: No chest pain or shortness of breath. No nausea or vomiting. No abdominal pain. No obvious bleeding. Looks comfortable in the bed. Had surgery on 07/25 Objective: General appearance: Alert and comfortable CVS: Normal S1 and S2 Lungs: Clear to auscultation bilaterally Abdomen: Soft, bowel sounds present, no tenderness Extremities: No right lower extremity edema. Left foot has dressing on great toe, left leg edema much better today. Physical Examination - Vital Signs Temperature: 97.6 F Blood Pressure: 131/68 Pulse: 57 Respirations: 16 Pulse Ox (%): 100 Assessment And Plan - Plan #Osteomyelitis Left great toe with foot ulcer Surgery consulted Infectious disease consulted s/p surgery 07/25, f/u cultures Wound care per surgery Vancomycin, and cefepime as per Dr. Meneses #Acute renal failure on CKD Nephrology consulted Renal function improving, trend kidney function #Diabetes type 2: Blood glucose monitoring #Hypertension #Hyperlipidemia -off metoprolol as heart rate on the low side, BP ok without meds -continue statin # Chronic anemia and thrombocytopenia: Monitor closely. 68-year-old patient with left foot infection and cellulitis, osteomyelitis on MRI, cont IV antibiotics, ultrasound showed no DVT, arterial Doppler showed no PAD on the right side, mild distal disease on the left side. Chronic anemia and thrombocytopenia, monitor closely. Acute kidney injury, creatinine improving. Plan discussed with the patient and case management team, DC plan depends on clinical progress and culture results. -
--- NOTE | 2024-07-26 15:15 | P.PN ---
Date of Service: 07/26/24 Subjective Pt seen in room. no acute event. pt is alert and responsive. denied any concern.denied problem with abx Objective Temp Pulse Resp BP Pulse Ox 97.6 F 57 16 131/68 100 07/26/24 14:28 07/26/24 14:28 07/26/24 14:28 07/26/24 14:07/26/24 14:28 HEENT: Unremarkable. neuro: aox3 Neck: Supple. Lungs: Basal crackles. Heart: S1, S2. Regular. Abdomen: Soft, nontender. Bowel sounds present. Extremities: Left foot wound dressing and black boot noted. Laboratory Data: Shows WBC 7.9, hemoglobin 12.6, platelets are 112. Chemistry shows BUN up to 39, creatinine 2.98 wound abscess: pending Assessment and Planning 1. left big toe osteomyelitis with foot ulcer 2. CKD 3. DM2 4. Thrombocytopenia. The patient is currently on empiric antibiotic pending culture results with vancomycin and cefepime. We will continue to follow. Monitor signs of infection with WBC and fever trend. plan discussed and in agreement with Dr cavazos
--- NOTE | 2024-07-26 21:08 | P.PN ---
Date of Service: 07/26/24 Vital Signs Temp Pulse Resp BP Pulse Ox 98.1 F 55 16 113/54 L 99 07/26/24 20:00 07/26/24 20:00 07/26/24 20:20 07/26/24 20:00 07/26/24 20:20 Medications Acetaminophen (Acetaminophen 325 Mg Tablet) 650 mg PO Q4HP PRN PRN Reason: Pain scale 2-4 (Mild) Hydrocodone Bitart/Acetaminophen (Hydrocodone/Apap 7.5/325 Mg Tab) 1 tab PO Q6H PRN PRN Reason: Pain scale 5-7 (Moderate) Last Admin: 07/26/24 20:20 Dose: 1 tab Amiodarone HCl (Amiodarone Hcl 200 Mg Tab) 200 mg PO DAILY [facility] Last Admin: 07/26/24 08:54 Dose: Not Given Aspirin (Aspirin Ec 81 Mg Tab) 81 mg PO DAILY [facility] Last Admin: 07/26/24 08:43 Dose: 81 mg Atorvastatin Calcium (Atorvastatin 10 Mg Tab) 10 mg PO BEDTIME [facility] Last Admin: 07/26/24 20:19 Dose: 10 mg Cholecalciferol (Vitamin D 5,000 Unit Cap) 5,000 unit PO DAILY [facility] Last Admin: 07/26/24 08:43 Dose: 5,000 unit Docusate Sodium (Docusate Na 100 Mg Cap) 100 mg PO BID [facility] Last Admin: 07/26/24 20:27 Dose: Not Given Enteral Nutritional Formula (Nepro Shake 237 Ml Can) 240 ml PO TID [facility] Last Admin: 07/26/24 20:20 Dose: 240 ml Ergocalciferol (Drisdol (Vitamin D=Ergocalciferol) 93176 Unit Cap) 50,000 unit PO DAILY [facility] Stop: 07/27/24 09:01 Last Admin: 07/26/24 08:44 Dose: 50,000 unit Ferrous Sulfate (Ferrous Sulfate 325 Mg Tab) 325 mg PO DAILY [facility] Last Admin: 07/26/24 08:43 Dose: 325 mg Heparin Sodium (Porcine) (Heparin 5000 Unit/Ml 1 Ml Vial) 5,000 unit SQ Q8HR [facility] Last Admin: 07/26/24 16:28 Dose: 5,000 unit Hydromorphone HCl (Hydromorphone Hcl 1 Mg/Ml Inj) 1 mg IV Q4H PRN PRN Reason: Pain scale 8-10 (Sev)-2ND LINE Cefepime HCl 1 gm/ Sodium (Chloride) 100 mls @ 200 mls/hr IV Q12HR [facility]; Pr otocol Last Admin: 07/26/24 20:20 Dose: 100 mls Vancomycin HCl 1.25 gm/ Sodium (Chloride) 250 mls @ 166.667 mls/hr IV Q36H [facility] Last Admin: 07/26/24 13:41 Dose: 250 mls Insulin Human Regular (Insulin Regular (Human) 100 Unit/Ml) 0 unit SQ ACHS [facility]; Protocol Last Admin: 07/26/24 20:28 Dose: Not Given Lactobacillus Acidoph/Bulgaricus (Lactobacillus/Acidophilus Tab) 1 tab PO BIDPC [facility] Last Admin: 07/26/24 16:28 Dose: 1 tab Montelukast Sodium (Montelukast 10 Mg Tab) 10 mg PO DAILY [facility] Last Admin: 07/26/24 08:43 Dose: 10 mg Morphine Sulfate (Morphine 2 Mg/Ml Syr) 2 mg IV Q4H PRN PRN Reason: Pain scale 8-10 (Sev)-1ST LINE Last Admin: 07/24/24 17:46 Dose: 2 mg Multivitamins/Iron (Fe Sulf/Fa/Vit B Comp & C Tab) 1 tab PO DAILY WITH BREAKFAST [facility] Last Admin: 07/26/24 08:44 Dose: 1 tab Mupirocin (Mupirocin Nasal 2 Appl/1 Gm Tube) 1 appl MARCOS BID [facility] Stop: 07/29/24 09:01 Last Admin: 07/26/24 20:20 Dose: 1 appl Ondansetron HCl (Ondansetron 4 Mg/2 Ml Vial) 4 mg IV Q6HP PRN PRN Reason: NAUSEA / VOMITING Pantoprazole Sodium (Pantoprazole 40mg Tablet) 40 mg PO ACB [facility]; Protocol Last Admin: 07/26/24 08:44 Dose: 40 mg Assessment/ Plan: Nephrology No dyspnea No chest pain Feeling better with more strength No acute events overnight Vitals, medications, blood work and imaging reviewed in the chart Physical Examination General: Oriented x3, Cooperative HEENT: Atraumatic Neck: Supple Respiratory: Clear to auscultation bilaterally Cardiovascular: Regular rate/rhythm, Edema (Left foot) Gastrointestinal: Soft and benign, Non-distended Musculoskeletal: No clubbing, No contractures Integumentary: No rashes, No cyanosis, Diabetic ulcer Neurological: Normal speech Blood work reviewed in the chart. Imagings Data: EXAMINATION: XR LEFT FOOT CLINICAL INDICATION: great toe DM ulcer;Pain TECHNIQUE: Multiple projections of the left foot were obtained. COMPARISON: No prior exam. FINDINGS: Soft tissue swelling is seen affecting the great toe. Focal ulceration is seen anteriorly along the plantar aspect. Subtle demineralization of the distal tuft medially of the great toe likely represents osteomyelitis. No soft tissue gas. 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
[2024-07-27 05:55] LABS: Absolute Eosinophils 0.1 K/uL (0-0.5); Absolute Lymphocytes (CBC) 0.5 K/uL (0.7-4.9); Absolute Monocytes 0.6 K/uL (0.1-1.3); Absolute Neutrophil 5.9 K/uL (1.8-8.0); Basophils % 0.6 % (0-1.3); Eosinophils % 0.7 % (0-4.4); Hematocrit 37.2 % (39.6-49.0); Hemoglobin 12.9 g/dL (13.6-17.9); Lymphocytes % 6.5 % (15.3-44.8); MCHC 34.7 g/dL (32.0-36.0); MCV 95.1 fL (80-100); MPV 9.5 fL (7.6-11.3); Monocytes % 8.2 % (3.3-12.3); Nucleated Red Blood Cells % 0.1 % (0-0); Platelets 123 thou/uL (152-406); RBC Red Blood Cell Count 3.91 M/uL (4.33-5.43); Red Cell Distribution Width 13.7 % (12.1-15.2)
[2024-07-27 06:09] LABS: Anion Gap 7.2 mEq/L (5.0-15.0); C-Reactive Protein 20.9 mg/L (<3.00); Magnesium 2.1 mg/dL (1.6-2.4); Potassium 4.2 mEq/L (3.5-5.1)
--- NOTE | 2024-07-27 15:51 | P.PN ---
Subjective Date of Service: 07/27/24 Primary Care Provider: Nemo Mederos NP Chief Complaint: Left foot ulcer Subjective: No chest pain or shortness of breath. No nausea or vomiting. No abdominal pain. No obvious bleeding. Looks comfortable in the bed. Had surgery on 07/25 Objective: General appearance: Alert and comfortable CVS: Normal S1 and S2 Lungs: Clear to auscultation bilaterally Abdomen: Soft, bowel sounds present, no tenderness Extremities: No right lower extremity edema. Left foot has dressing on great toe, left leg edema much better today. Physical Examination - Vital Signs Temperature: 97.5 F Blood Pressure: 168/75 Pulse: 63 Respirations: 18 Pulse Ox (%): 97 Assessment And Plan - Plan #Osteomyelitis Left great toe with foot ulcer Surgery consulted Infectious disease consulted s/p surgery 07/25, f/u cultures Wound care per surgery Vancomycin, and cefepime as per Dr. Meneses #Acute renal failure on CKD Nephrology consulted Renal function improving, trend kidney function #Diabetes type 2: Blood glucose monitoring #Hypertension #Hyperlipidemia -BP meds adjusted -continue statin # Chronic anemia and thrombocytopenia: Monitor closely. 68-year-old patient with left foot infection and cellulitis, osteomyelitis on MRI, cont IV antibiotics, ultrasound showed no DVT, arterial Doppler showed no PAD on the right side, mild distal disease on the left side. Chronic anemia and thrombocytopenia, monitor closely. Acute kidney injury, creatinine improving. Plan discussed with the patient and case management team, DC plan depends on final culture results. -
[2024-07-27] MEDS: hydroCHLOROthiazide 25 MG TAB PO SCH (17:04)
[2024-07-27] MEDS: METOPROLOL TAR 25 MG TAB PO SCH (17:05)
--- NOTE | 2024-07-27 21:05 | P.PN ---
Date of Service: 07/27/24 Vital Signs Temp Pulse Resp BP Pulse Ox 97.6 F 58 18 140/68 98 07/27/24 20:00 07/27/24 20:00 07/27/24 20:00 07/27/24 20:00 07/27/24 20:00 Medications Acetaminophen (Acetaminophen 325 Mg Tablet) 650 mg PO Q4HP PRN PRN Reason: Pain scale 2-4 (Mild) Hydrocodone Bitart/Acetaminophen (Hydrocodone/Apap 7.5/325 Mg Tab) 1 tab PO Q6H PRN PRN Reason: Pain scale 5-7 (Moderate) Last Admin: 07/27/24 01:34 Dose: 1 tab Amiodarone HCl (Amiodarone Hcl 200 Mg Tab) 200 mg PO DAILY [facility] Last Admin: 07/27/24 09:26 Dose: 200 mg Aspirin (Aspirin Ec 81 Mg Tab) 81 mg PO DAILY [facility] Last Admin: 07/27/24 09:25 Dose: 81 mg Atorvastatin Calcium (Atorvastatin 10 Mg Tab) 10 mg PO BEDTIME [facility] Last Admin: 07/26/24 20:19 Dose: 10 mg Cholecalciferol (Vitamin D 5,000 Unit Cap) 5,000 unit PO DAILY [facility] Last Admin: 07/27/24 09:26 Dose: 5,000 unit Docusate Sodium (Docusate Na 100 Mg Cap) 100 mg PO BID [facility] Last Admin: 07/27/24 09:00 Dose: Not Given Enteral Nutritional Formula (Nepro Shake 237 Ml Can) 240 ml PO TID [facility] Last Admin: 07/27/24 14:00 Dose: 240 ml Ferrous Sulfate (Ferrous Sulfate 325 Mg Tab) 325 mg PO DAILY [facility] Last Admin: 07/27/24 09:25 Dose: 325 mg Heparin Sodium (Porcine) (Heparin 5000 Unit/Ml 1 Ml Vial) 5,000 unit SQ Q8HR [facility] Last Admin: 07/27/24 17:04 Dose: 5,000 unit Hydrochlorothiazide (Hydrochlorothiazide 25 Mg Tab) 25 mg PO DAILY [facility] Last Admin: 07/27/24 17:04 Dose: 25 mg Hydromorphone HCl (Hydromorphone Hcl 1 Mg/Ml Inj) 1 mg IV Q4H PRN PRN Reason: Pain scale 8-10 (Sev)-2ND LINE Cefepime HCl 1 gm/ Sodium (Chloride) 100 mls @ 200 mls/hr IV Q12HR [facility]; Protocol Last Admin: 07/27/24 09:28 Dose: 100 mls Vancomycin HCl 1.25 gm/ Sodium (Chloride) 250 mls @ 166.667 mls/hr IV Q36H [facility] Last Admin: 07/26/24 13:41 Dose: 250 mls Insulin Human Regular (Insulin Regular (Human) 100 Unit/Ml) 0 unit SQ ACHS [facility]; Protocol Last Admin: 07/27/24 17:05 Dose: 7 unit Lactobacillus Acidoph/Bulgaricus (Lactobacillus/Acidophilus Tab) 1 tab PO BIDPC [facility] Last Admin: 07/27/24 17:03 Dose: 1 tab Metoprolol Tartrate (Metoprolol Tar 25 Mg Tab) 12.5 mg PO BID 6AM 6PM [facility] Last Admin: 07/27/24 17:05 Dose: 12.5 mg Montelukast Sodium (Montelukast 10 Mg Tab) 10 mg PO DAILY [facility] Last Admin: 07/27/24 09:26 Dose: 10 mg Morphine Sulfate (Morphine 2 Mg/Ml Syr) 2 mg IV Q4H PRN PRN Reason: Pain scale 8-10 (Sev)-1ST LINE Last Admin: 07/27/24 17:48 Dose: 2 mg Multivitamins/Iron (Fe Sulf/Fa/Vit B Comp & C Tab) 1 tab PO DAILY WITH BREAKFAST [facility] Last Admin: 07/27/24 09:24 Dose: 1 tab Mupirocin (Mupirocin Nasal 2 Appl/1 Gm Tube) 1 appl MARCOS BID [facility] Stop: 07/29/24 09:01 Last Admin: 07/27/24 09:28 Dose: 1 appl Ondansetron HCl (Ondansetron 4 Mg/2 Ml Vial) 4 mg IV Q6HP PRN PRN Reason: NAUSEA / VOMITING Pantoprazole Sodium (Pantoprazole 40mg Tablet) 40 mg PO ACB [facility]; Protocol Last Admin: 07/27/24 09:26 Dose: 40 mg Assessment/ Plan: Nephrology No dyspnea No chest pain Feeling better with improved appetite No acute events overnight Vitals, medications, blood work and imaging reviewed in the chart Physical Examination General: Oriented x3, Cooperative HEENT: Atraumatic Neck: Supple Respiratory: Clear to auscultation bilaterally Cardiovascular: Regular rate/rhythm, Edema (Left foot) Gastrointestinal: Soft and benign, Non-distended Musculoskeletal: No clubbing, No contractures Integumentary: No rashes, No cyanosis, Diabetic ulcer Neurological: Normal speech Blood work reviewed in the chart. Imagings Data: EXAMINATION: XR LEFT FOOT CLINICAL INDICATION: great toe DM ulcer;Pain TECHNIQUE: Multiple projections of the left foot were obtained. COMPARISON: No prior exam. FINDINGS: Soft tissue swelling is seen affecting the great toe. Focal ulceration is seen anteriorly along the plantar aspect. Subtle demineralization of the distal tuft medially of the great toe likely represents osteomyelitis. No soft tissue gas. Conclusions/Impression: Stage III NIYA may be due to hypovolemia and relative hypotension CKD III with Proteinuria -No NSAIDs -Continue IVF Hyponatremia -Continue IVF with NS HTN with CKD Paroxysmal Afib -Hold Metoprolol due to bradycardia -Hold Terazosin at this time DM II with CKD -RISS DM II with Left Toe Ulcer with osteomyelitis -MRI foot reviewed -Surgery and ID following -Wound care as ordered -Continue abx; monitor vanc level Anemia in chronic illness Hx Iron Deficiency Thrombocytopenia -Monitor CBC Hospitalist & Surgery notes reviewed Case reviewed with Dr. Shah
--- NOTE | 2024-07-27 23:19 | PN ---
Subjective: The patient is lying in bed. Feels much better today. Denies any other problems. Objective: Vital Signs: Temperature 97.8, pulse 63, respirations 18, blood pressure 147/69. Lungs: Clear to auscultation. Heart: S1, S2. Regular. Abdomen: Soft, nontender. Bowel sounds present. Extremities: Foot wound noted. Laboratory Data: WBC 7.1, hemoglobin 12.9, platelets are 123. BUN of 39, creatinine 2.4. The patient is currently on cefepime and vancomycin. Wound cultures are growing Klebsiella oxytoca, Proteus mirabilis, and methicillin-sensitive Staphylococcus aureus, being very well covered with anti biotic regimen at this time. Assessment And Plan: 1. Left big toe osteomyelitis, status post debridement with diabetic foot ulcer. 2. Chronic kidney disease. 3. Diabetes mellitus. 4. Thrombocytopenia. 5. Anemia of chronic disease. Continue antibiotic for 6 weeks. We will follow the patient as needed. NF/MODL Voice ID: [id number] Report ID: [id number]
[2024-07-28] MEDS: HYDROMORPHONE HCL 1 MG/ML INJ IV PRN (04:50)
[2024-07-28 05:10] LABS: Absolute Basophils 0.1 K/uL (0-0.5); Absolute Eosinophils 0.1 K/uL (0-0.5); Absolute Lymphocytes (CBC) 0.4 K/uL (0.7-4.9); Absolute Monocytes 0.7 K/uL (0.1-1.3); Absolute Neutrophil 5.5 K/uL (1.8-8.0); Basophils % 1.1 % (0-1.3); Hemoglobin 12.6 g/dL (13.6-17.9); MCV 96.8 fL (80-100); MPV 10.2 fL (7.6-11.3); Monocytes % 10.3 % (3.3-12.3); Neutrophils % 81.6 % (41.7-73.7); Nucleated Red Blood Cells % 0.1 % (0-0); Platelets 101 thou/uL (152-406); RBC Red Blood Cell Count 3.82 M/uL (4.33-5.43); Red Cell Distribution Width 13.6 % (12.1-15.2)
[2024-07-28 05:29] LABS: Anion Gap 10.2 mEq/L (5.0-15.0); Potassium 4.2 mEq/L (3.5-5.1)
--- NOTE | 2024-07-28 16:06 | P.PN ---
Nephrology note (S) Delayed entry note, pt seen earlier this AM, pt seen resting comfortably, denies CP, dyspnea, Lt foot or leg pain. Mild episode of nausea prior to breakfast (O) Vitals, medications, blood work and imaging reviewed in the chart General: NAD, non tachypnec HEENT: Atraumatic, not needing O2 Neck: Supple Respiratory: Clear to auscultation bilaterally mostly, no rhonchi Cardiovascular: Non tachy, mostly regular, no sig LE edema Gastrointestinal: Soft and benign, Non-distended Musculoskeletal: Shins non tender, No contractures Integumentary: No rashes, Neurological: Normal speech, awake, alert Blood work reviewed in the chart. Conclusions/Impression: Sub acute Stage III renal failure with Cr level > 4 mg/dl, multifactorial, on underlying CKD Stage III 2nd to chronic conditions -Cr level steadily downward trending, will f/u closely in clinic. UA on admission unremarkable HTN with CKD -BP can be labile, cont to monitor, pt's thiazide diuretic appears to have been resumed. Would keep off MRA/Spironolactone DM II with Left Toe Ulcer with osteomyelitis -Management per surgery/IM -Continue abx; monitor vanc level
--- NOTE | 2024-07-28 18:27 | P.PN ---
Subjective Date of Service: 07/28/24 Primary Care Provider: Nemo Mederos NP Chief Complaint: Left foot ulcer pain controlled afebrile tolerating medications Review of Systems 10-point ROS is otherwise unremarkable Physical Examination - Vital Signs Temperature: 98.2 F Blood Pressure: 143/80 Pulse: 60 Respirations: 16 Pulse Ox (%): 97 - Physical Exam General: Alert HEENT: Atraumatic Respiratory: Clear to auscultation bilaterally Cardiovascular: No edema Gastrointestinal: Soft and benign, Non-distended Integumentary: Other Assessment And Plan - Current Problems (Diagnosis) (1) Acute renal failure Current Visit: Yes Status: Acute Qualifiers: Acute renal failure type: unspecified Qualified Code(s): N17.9 - Acute kidney failure, unspecified (2) Diabetes type 2 Current Visit: Yes Status: Acute Qualifiers: Diabetes mellitus fpc insulin use: without terminal operations 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 Meneses #Acute renal failure on CKD Nephrology consulted Renal function improving, trend kidney function #Diabetes type 2: Blood glucose monitoring #Hypertension #Hyperlipidemia -BP meds adjusted -continue statin # Chronic anemia and thrombocytopenia: Monitor closely. 68-year-old patient with left foot infection and cellulitis, osteomyelitis on MRI, cont IV antibiotics, ultrasound showed no DVT, arterial Doppler showed no PAD on the right side, mild distal disease on the left side. Chronic anemia and thrombocytopenia, monitor closely. Acute kidney injury, creatinine improving. Plan discussed with the patient and case management team, DC plan depends on final culture results.
--- NOTE | 2024-07-28 21:43 | P.PN ---
Date of Service: 07/28/24 Subjective Pt seen in room. no acute event. pt is alert and responsive. denied any concern.denied problem with abx Objective Temp Pulse Resp BP Pulse Ox 97.9 F 50 18 165/75 H 96 07/28/24 19:43 07/28/24 19:43 07/28/24 19:56 07/28/24 19:43 07/28/24 19:56 HEENT: Unremarkable. neuro: aox3 Neck: Supple. Lungs: Basal crackles. Heart: S1, S2. Regular. Abdomen: Soft, nontender. Bowel sounds present. Extremities: Left foot wound dressing noted. Laboratory Data: Shows WBC 6.7, hemoglobin 12.6, platelets are 101. Chemistry shows BUN up to 36, creatinine 2.98 wound abscess: 07/25 Klebsiella, Proeteus vulgaris, Staph Aureus Assessment and Planning 1. left big toe osteomyelitis, sp debridement 07/25 with foot ulcer 2. CKD 3. DM2 4. Thrombocytopenia. wound culture grew Klebsiella, Proeteus vulgaris, Staph Aureus. continue vancomycin and cefepime for a total of 6 weeks. tentative stop date september 06. We will continue to follow. continue wound and supportive care. Monitor signs of infection with WBC and fever trend. plan discussed and in agreement with Dr cavazos
[2024-07-29 05:18] LABS: Absolute Eosinophils 0.1 K/uL (0-0.5); Absolute Lymphocytes (CBC) 0.4 K/uL (0.7-4.9); Absolute Monocytes 0.6 K/uL (0.1-1.3); Absolute Neutrophil 5.4 K/uL (1.8-8.0); Basophils % 0.6 % (0-1.3); Hematocrit 37.2 % (39.6-49.0); Hemoglobin 12.9 g/dL (13.6-17.9); MCH 33.1 pg (27.0-35.0); MCHC 34.8 g/dL (32.0-36.0); Monocytes % 9.3 % (3.3-12.3); Neutrophils % 83.1 % (41.7-73.7); Platelets 116 thou/uL (152-406); RBC Red Blood Cell Count 3.91 M/uL (4.33-5.43); Red Cell Distribution Width 13.7 % (12.1-15.2)
[2024-07-29 05:29] LABS: Anion Gap 9.1 mEq/L (5.0-15.0); Magnesium 1.9 mg/dL (1.6-2.4); Phosphorus 2.1 mg/dL (2.5-4.9); Potassium 4.1 mEq/L (3.5-5.1)
[2024-07-29] MEDS: POTASS/SODIUM PHOSPHATE 1 PKT POWD.PACK PO SCH (08:48)
--- NOTE | 2024-07-29 11:37 | P.PN ---
Subjective Date of Service: 07/29/24 Primary Care Provider: Nemo Mederos NP Chief Complaint: Left foot ulcer pain controlled afebrile no acute events Review of Systems 10-point ROS is otherwise unremarkable Physical Examination - Vital Signs Temperature: 98.0 F Blood Pressure: 125/51 Pulse: 55 Respirations: 16 Pulse Ox (%): 95 - Physical Exam General: Alert, In no apparent distress HEENT: Atraumatic, Normocephalic Respiratory: Clear to auscultation bilaterally, Normal air movement Cardiovascular: Regular rate/rhythm, Normal S1 S2 Gastrointestinal: Soft and benign, Non-distended Musculoskeletal: Other (left toe covered with band air) Integumentary: Other Neurological: Normal speech Assessment And Plan - Current Problems (Diagnosis) (1) Acute renal failure Current Visit: Yes Status: Acute Qualifiers: Acute renal failure type: unspecified Qualified Code(s): N17.9 - Acute kidney failure, unspecified (2) Diabetes type 2 Current Visit: Yes Status: Acute Qualifiers: Diabetes mellitus longterm insulin use: without longterm use Diabetes mellitus complication detail: with foot ulcer (3) Osteomyelitis of left lower extremity Current Visit: Yes Status: Acute - Plan #Osteomyelitis Left great toe with foot ulcer Surgery consulted Infectious disease consulted s/p surgery 07/25, wound culture grew Klebsiella, Proeteus vulgaris, Staph Aureus. continue vancomycin and cefepime for a total of 6 weeks Wound care per surgery Vancomycin, and cefepime as per Dr. Meneses #Acute renal failure on CKD Nephrology consulted Renal function improving, trend kidney function #Diabetes type 2: Blood glucose monitoring #Hypertension #Hyperlipidemia -BP meds adjusted -continue statin # Chronic anemia and thrombocytopenia: Monitor closely. case managment consult for outpatient abx, will need PICC.
--- NOTE | 2024-07-29 12:24 | P.PN ---
Nephrology note (S) Pt seen resting comfortably, denies CP, dyspnea, Lt foot or leg pain. No further nausea episodes. (O) Vitals, medications, blood work and imaging reviewed in the chart General: NAD, non tachypnec HEENT: Atraumatic, not needing O2 Neck: Supple Respiratory: Clear to auscultation bilaterally mostly, no rhonchi Cardiovascular: Non tachy, mostly regular, no sig LE edema Gastrointestinal: Soft and benign, Non-distended Musculoskeletal: Shins non tender, No contractures Integumentary: No rashes, Neurological: Normal speech, awake, alert Blood work reviewed in the chart. Conclusions/Impression: Sub acute Stage III renal failure with Cr level > 4 mg/dl, multifactorial, on underlying CKD Stage III 2nd to chronic conditions -Cr level steadily downward trending, will f/u closely in clinic. UA on admission unremarkable. Monitor closely on IV Abx -Ok for PICC line to be placed HTN with CKD -BP can be labile, currently acceptable, cont to monitor, pt's thiazide diuretic appears to have been resumed. Would keep off MRA/Spironolactone DM II with Left Toe Ulcer with osteomyelitis -Management per surgery/IM -Continue abx; monitor vanc level
--- NOTE | 2024-07-30 13:20 | P.PN ---
Nephrology note (S) Pt seen resting comfortably, denies CP, dyspnea, Lt foot or leg pain. No further nausea episodes. (O) Vitals, medications, blood work and imaging reviewed in the chart General: NAD, non tachypnec HEENT: Atraumatic, not needing O2 Neck: Supple Respiratory: Clear to auscultation bilaterally mostly, no rhonchi Cardiovascular: Non tachy, mostly regular, no sig LE edema Gastrointestinal: Soft and benign, Non-distended Musculoskeletal: Shins non tender, No contractures Integumentary: No rashes, Neurological: Normal speech, awake, alert Blood work reviewed in the chart. Conclusions/Impression: Sub acute Stage III renal failure with Cr level > 4 mg/dl, multifactorial, on underlying CKD Stage III 2nd to chronic conditions -Cr level steadily downward trended, will f/u closely in clinic. UA on admission unremarkable. Monitor closely on IV Abx -Ok for PICC line to be placed HTN with CKD -BP can be labile, currently acceptable, cont to monitor, pt's thiazide diuretic appears to have been resumed. Would keep off MRA/Spironolactone DM II with Left Toe Ulcer with osteomyelitis -Management per surgery/IM -Continue abx; monitor vanc level Hyperglycemia -Would switch thiazide diuretic to a SGLT2i agent as an OP, maintain avg BG < 180
[2024-07-31 05:47] LABS: Anion Gap 9.2 mEq/L (5.0-15.0); Potassium 4.2 mEq/L (3.5-5.1)
--- NOTE | 2024-07-31 11:18 | P.PN ---
Date of Service: 07/31/24 Vital Signs Temp Pulse Resp BP Pulse Ox 98.2 F 59 16 153/69 H 97 07/31/24 08:00 07/31/24 08:00 07/31/24 08:00 07/31/24 08:00 07/31/24 08:00 Medications Acetaminophen (Acetaminophen 325 Mg Tablet) 650 mg PO Q4HP PRN PRN Reason: Pain scale 2-4 (Mild) Hydrocodone Bitart/Acetaminophen (Hydrocodone/Apap 7.5/325 Mg Tab) 1 tab PO Q6H PRN PRN Reason: Pain scale 5-7 (Moderate) Last Admin: 07/30/24 05:24 Dose: 1 tab Amiodarone HCl (Amiodarone Hcl 200 Mg Tab) 200 mg PO DAILY [facility] Last Admin: 07/31/24 08:26 Dose: 200 mg Aspirin (Aspirin Ec 81 Mg Tab) 81 mg PO DAILY [facility] Last Admin: 07/31/24 08:25 Dose: 81 mg Atorvastatin Calcium (Atorvastatin 10 Mg Tab) 10 mg PO BEDTIME [facility] Last Admin: 07/30/24 20:47 Dose: 10 mg Cholecalciferol (Vitamin D 5,000 Unit Cap) 5,000 unit PO DAILY [facility] Last Admin: 07/31/24 08:25 Dose: 5,000 unit Docusate Sodium (Docusate Na 100 Mg Cap) 100 mg PO BID [facility] Last Admin: 07/31/24 08:26 Dose: Not Given Enteral Nutritional Formula (Nepro Shake 237 Ml Can) 240 ml PO TID [facility] Last Admin: 07/31/24 08:33 Dose: Not Given Ferrous Sulfate (Ferrous Sulfate 325 Mg Tab) 325 mg PO DAILY [facility] Last Admin: 07/31/24 08:26 Dose: 325 mg Heparin Sodium (Porcine) (Heparin 5000 Unit/Ml 1 Ml Vial) 5,000 unit SQ Q8HR [facility] Last Admin: 07/31/24 08:26 Dose: 5,000 unit Hydrochlorothiazide (Hydrochlorothiazide 25 Mg Tab) 25 mg PO DAILY [facility] Last Admin: 07/31/24 08:33 Dose: 25 mg Hydromorphone HCl (Hydromorphone Hcl 1 Mg/Ml Inj) 1 mg IV Q4H PRN PRN Reason: Pain scale 8-10 (Sev)-2ND LINE Last Admin: 07/30/24 20:50 Dose: 1 mg Cefepime HCl 1 gm/ Sodium (Chloride) 100 mls @ 200 mls/hr IV Q12HR [facility]; Protocol Last Admin: 07/31/24 08:33 Dose: 100 mls Vancomycin HCl 1.25 gm/ Sodium (Chloride) 250 mls @ 166.667 mls/hr IV Q36H [facility] Last Admin: 07/31/24 00:14 Dose: 250 mls Insulin Human Regular (Insulin Regular (Human) 100 Unit/Ml) 0 unit SQ ACHS [facility]; Protocol Last Admin: 07/31/24 08:25 Dose: 3 unit Lactobacillus Acidoph/Bulgaricus (Lactobacillus/Acidophilus Tab) 1 tab PO BIDPC [facility] Last Admin: 07/31/24 08:25 Dose: 1 tab Metoprolol Tartrate (Metoprolol Tar 25 Mg Tab) 12.5 mg PO BID 6AM 6PM [facility] Last Admin: 07/31/24 05:20 Dose: 12.5 mg Montelukast Sodium (Montelukast 10 Mg Tab) 10 mg PO DAILY [facility] Last Admin: 07/31/24 08:25 Dose: 10 mg Morphine Sulfate (Morphine 2 Mg/Ml Syr) 2 mg IV Q4H PRN PRN Reason: Pain scale 8-10 (Sev)-1ST LINE Last Admin: 07/31/24 03:51 Dose: 2 mg Multivitamins/Iron (Fe Sulf/Fa/Vit B Comp & C Tab) 1 tab PO DAILY WITH BREAKFAST [facility] Last Admin: 07/31/24 08:26 Dose: 1 tab Ondansetron HCl (Ondansetron 4 Mg/2 Ml Vial) 4 mg IV Q6HP PRN PRN Reason: NAUSEA / VOMITING Pantoprazole Sodium (Pantoprazole 40mg Tablet) 40 mg PO ACB [facility]; Protocol Last Admin: 07/31/24 08:25 Dose: 40 mg Assessment/ Plan: Nephrology No dyspnea No chest pain Feeling better Loose stool No acute events overnight Vitals, medications, blood work and imaging reviewed in the chart Physical Examination General: Oriented x3, Cooperative HEENT: Atraumatic Neck: Supple Respiratory: Clear to auscultation bilaterally Cardiovascular: Regular rate/rhythm, No Edema Gastrointestinal: Soft and benign, Non-distended Musculoskeletal: No clubbing, No contractures Integumentary: No rashes, No cyanosis, Diabetic ulcer left great toe Neurological: Normal speech Blood work reviewed in the chart. Imagings Data: EXAMINATION: XR LEFT FOOT CLINICAL INDICATION: great toe DM ulcer;Pain TECHNIQUE: Multiple projections of the left foot were obtained. COMPARISON: No prior exam. FINDINGS: Soft tissue swelling is seen affecting the great toe. Focal ulceration is seen anteriorly along the plantar aspect. Subtle demineralization of the distal tuft medially of the great toe likely represents osteomyelitis. No soft tissue gas. 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
--- NOTE | 2024-07-31 15:41 | P.PN ---
Date of Service: 07/31/24 Subjective Pt seen in room. no acute event. pt is alert and responsive. denied any concern.denied problem with abx Objective Temp Pulse Resp BP Pulse Ox 98 F 59 17 157/66 H 97 07/31/24 12:00 07/31/24 12:00 07/31/24 12:00 07/31/24 12:00 07/31/24 12:00 HEENT: Unremarkable. neuro: aox3 Neck: Supple. Lungs: Basal crackles. Heart: S1, S2. Regular. Abdomen: Soft, nontender. Bowel sounds present. Extremities: Left foot wound dressing noted. Laboratory Data: Shows WBC 6.5, hemoglobin 12.9, platelets are 116. Chemistry shows BUN 35, creatinine 1.73 wound abscess: 07/25 Klebsiella, Proeteus vulgaris, Staph Aureus Assessment and Planning 1. left big toe osteomyelitis, sp debridement 07/25 with foot ulcer 2. CKD 3. DM2 4. Thrombocytopenia. wound culture grew Klebsiella, Proeteus vulgaris, Staph Aureus. continue vancomycin and cefepime for a total of 6 weeks. tentative stop date september 06. We will continue to follow. continue wound and supportive care. Monitor signs of infection with WBC and fever trend. plan discussed and in agreement with Dr cavazos
[2024-08-01 04:17] LABS: Albumin 2.4 g/dL (3.4-5.0); Albumin/Globulin Ratio 0.7 (1.1-1.8); Anion Gap 8.2 mEq/L (5.0-15.0); Globulin 3.6 g/dL (2.3-3.5); Phosphorus 1.9 mg/dL (2.5-4.9); Potassium 4.2 mEq/L (3.5-5.1); Uric Acid 3.4 mg/dL (3.5-7.2)
[2024-08-01] MEDS: POTASS/SODIUM PHOSPHATE 1 PKT POWD.PACK PO SCH ×2 (05:23→08:15)
[2024-08-01] MEDS ORDERED: POTASS/SODIUM PHOSPHATE 1 PKT POWD.PACK PO SCH (06:00)
--- NOTE | 2024-08-01 06:51 | P.PN ---
Date of Service: 07/30/24 Subjective Chart has been reviewed. Events in the last 24 hours have been noted.At this time patient has osteomyelitis of his toe and we are waiting for antibiotics to be set up. I will need to order PICC line and will also need to get arrangements made for IV antibiotics. Physical Examination - Vital Signs Reviewed - Physical Exam General: Alert, In no apparent distress Respiratory: Clear to auscultation bilaterally, Normal air movement Cardiovascular: Regular rate/rhythm, Normal S1 S2 Gastrointestinal: Soft and benign, Non-distended Musculoskeletal: Left great toe with wound on the plantar aspect Neurological: No focal deficits Assessment And Plan - Assessment (1) Acute renal failure Current Visit: Yes Status: Acute Qualifiers: Acute renal failure type: unspecified Qualified Code(s): N17.9 - Acute kidney failure, unspecified (2) Diabetes type 2 Current Visit: Yes Status: Acute Qualifiers: Diabetes mellitus senior care insulin use: without termite treater use Diabetes mellitus complication detail: with foot ulcer (3) Osteomyelitis of left lower extremity; 1st toe Current Visit: Yes Status: Acute - Plan #Osteomyelitis Left great toe with foot ulcer - Arrange for outpatient IV antibiotics. Will get culture results and will get PICC line placed. #Acute renal failure on CKD Renal function is stable. #Diabetes type 2: Blood glucose monitoring; Accu-Cheks before every meal nightly #Hypertension: -Strict blood pressure control #Hyperlipidemia -Continue with statin therapy # Chronic anemia and thrombocytopenia: -Monitor CBC
--- NOTE | 2024-08-01 06:53 | P.PN ---
Date of Service: 07/31/24 Subjective Patient is a 68-year-old gentleman who came to the hospital with osteomyelitis of the left great toe. Arrange for outpatient IV antibiotics. Cultures are positive and will arrange for IV antibiotics at discharge. Home health arrangements are pending. Continue with strict blood pressure control and continue monitoring renal function closely. Physical Examination - Vital Signs Reviewed - Physical Exam General: Alert, In no apparent distress Respiratory: Clear to auscultation bilaterally, Normal air movement Cardiovascular: Regular rate/rhythm, Normal S1 S2 Gastrointestinal: Soft and benign, Non-distended Musculoskeletal: Left great toe with wound on the plantar aspect Neurological: No focal deficits Assessment And Plan - Assessment (1) Acute renal failure Current Visit: Yes Status: Acute Qualifiers: Acute renal failure type: unspecified Qualified Code(s): N17.9 - Acute kidney failure, unspecified (2) Diabetes type 2 Current Visit: Yes Status: Acute Qualifiers: Diabetes mellitus terminal supervisor insulin use: without correction use Diabetes mellitus complication detail: with foot ulcer (3) Osteomyelitis of left lower extremity; 1st toe Current Visit: Yes Status: Acute - Plan Continue with plan of care as mentioned below: #Osteomyelitis Left great toe with foot ulcer - Arrange for outpatient IV antibiotics. Will get culture results and will get PICC line placed. #Acute renal failure on CKD Renal function is stable. #Diabetes type 2: Blood glucose monitoring; Accu-Cheks before every meal nightly #Hypertension: -Strict blood pressure control #Hyperlipidemia -Continue with statin therapy # Chronic anemia and thrombocytopenia: -Monitor CBC
[2024-08-01] MEDS: AMIODARONE HCL 200 MG TAB PO SCH (08:21)
--- NOTE | 2024-08-01 15:09 | P.PN ---
Date of Service: 08/01/24 Subjective: Assuming care today. Denies pain, fevers, chills. Transferring to nursing facility. seen resting comfortably in bed Review of systems: 10 point review of systems otherwise negative except as per HPI Physical Examination - Vital Signs Reviewed - Physical Exam General: Alert, In no apparent distress Respiratory: Clear to auscultation bilaterally, Normal air movement Cardiovascular: Regular rate/rhythm, Normal S1 S2 Gastrointestinal: Soft and benign, Non-distended Musculoskeletal: Left great toe with wound on the plantar aspect Neurological: No focal deficits Assessment And Plan - Assessment (1) Acute renal failure Current Visit: Yes Status: Acute Qualifiers: Acute renal failure type: unspecified Qualified Code(s): N17.9 - Acute kidney failure, unspecified (2) Diabetes type 2 Current Visit: Yes Status: Acute Qualifiers: Diabetes mellitus terminal clerk insulin use: without terminal clerk use Diabetes mellitus complication detail: with foot ulcer (3) Osteomyelitis of left lower extremity; 1st toe Current Visit: Yes Status: Acute - Plan Continue with plan of care as mentioned below: #Osteomyelitis Left great toe with foot ulcer - Arrange for outpatient IV antibiotics. Will get culture results and will get PICC line placed. Cultures positive for Klebsiella, Proteus vulgaris, Staph aureus #Acute renal failure on CKD Renal function is stable. #Diabetes type 2: Blood glucose monitoring; Accu-Cheks before every meal nightly #Hypertension: -Strict blood pressure control #Hyperlipidemia -Continue with statin therapy # Chronic anemia and thrombocytopenia: -Monitor CBC Transaminitis Will continue to monitor Disposition: Awaiting nursing facility placement
--- NOTE | 2024-08-01 19:45 | P.PN ---
Date of Service: 08/01/24 Vital Signs Temp Pulse Resp BP Pulse Ox 98.2 F 55 19 127/65 98 08/01/24 16:00 08/01/24 16:00 08/01/24 16:00 08/01/24 16:00 08/01/24 16:00 Medications Acetaminophen (Acetaminophen 325 Mg Tablet) 650 mg PO Q4HP PRN PRN Reason: Pain scale 2-4 (Mild) Hydrocodone Bitart/Acetaminophen (Hydrocodone/Apap 7.5/325 Mg Tab) 1 tab PO Q6H PRN PRN Reason: Pain scale 5-7 (Moderate) Last Admin: 07/31/24 23:03 Dose: 1 tab Amiodarone HCl (Amiodarone Hcl 200 Mg Tab) 100 mg PO DAILY [facility] Last Admin: 08/01/24 08:21 Dose: 100 mg Aspirin (Aspirin Ec 81 Mg Tab) 81 mg PO DAILY [facility] Last Admin: 08/01/24 08:23 Dose: 81 mg Atorvastatin Calcium (Atorvastatin 10 Mg Tab) 10 mg PO BEDTIME [facility] Last Admin: 08/01/24 19:38 Dose: 10 mg Cholecalciferol (Vitamin D 5,000 Unit Cap) 5,000 unit PO DAILY [facility] Last Admin: 08/01/24 08:23 Dose: 5,000 unit Docusate Sodium (Docusate Na 100 Mg Cap) 100 mg PO BID [facility] Last Admin: 08/01/24 19:38 Dose: 100 mg Enteral Nutritional Formula (Nepro Shake 237 Ml Can) 240 ml PO TID [facility] Last Admin: 08/01/24 19:38 Dose: Not Given Ferrous Sulfate (Ferrous Sulfate 325 Mg Tab) 325 mg PO DAILY [facility] Last Admin: 08/01/24 08:23 Dose: 325 mg Heparin Sodium (Porcine) (Heparin 5000 Unit/Ml 1 Ml Vial) 5,000 unit SQ Q8HR [facility] Last Admin: 08/01/24 17:29 Dose: 5,000 unit Hydrochlorothiazide (Hydrochlorothiazide 25 Mg Tab) 25 mg PO DAILY [facility] Last Admin: 08/01/24 08:22 Dose: 25 mg Hydromorphone HCl (Hydromorphone Hcl 1 Mg/Ml Inj) 1 mg IV Q4H PRN PRN Reason: Pain scale 8-10 (Sev)-2ND LINE Last Admin: 07/30/24 20:50 Dose: 1 mg Cefepime HCl 1 gm/ Sodium (Chloride) 100 mls @ 200 mls/hr IV Q12HR [facility]; Protocol Last Admin: 08/01/24 19:37 Dose: 100 mls Vancomycin HCl 1.25 gm/ Sodium (Chloride) 250 mls @ 166.667 mls/hr IV Q36H [facility] Last Admin: 08/01/24 13:08 Dose: 250 mls Insulin Human Regular (Insulin Regular (Human) 100 Unit/Ml) 0 unit SQ ACHS [facility]; Protocol Last Admin: 08/01/24 19:38 Dose: 7 unit Lactobacillus Acidoph/Bulgaricus (Lactobacillus/Acidophilus Tab) 1 tab PO BIDPC [facility] Last Admin: 08/01/24 17:27 Dose: 1 tab Metoprolol Tartrate (Metoprolol Tar 25 Mg Tab) 12.5 mg PO BID 6AM 6PM [facility] Last Admin: 08/01/24 17:26 Dose: 12.5 mg Montelukast Sodium (Montelukast 10 Mg Tab) 10 mg PO DAILY [facility] Last Admin: 08/01/24 08:22 Dose: 10 mg Morphine Sulfate (Morphine 2 Mg/Ml Syr) 2 mg IV Q4H PRN PRN Reason: Pain scale 8-10 (Sev)-1ST LINE Last Admin: 07/31/24 20:55 Dose: 2 mg Multivitamins/Iron (Fe Sulf/Fa/Vit B Comp & C Tab) 1 tab PO DAILY WITH BREAKFAST [facility] Last Admin: 08/01/24 08:23 Dose: 1 tab Ondansetron HCl (Ondansetron 4 Mg/2 Ml Vial) 4 mg IV Q6HP PRN PRN Reason: NAUSEA / VOMITING Pantoprazole Sodium (Pantoprazole 40mg Tablet) 40 mg PO ACB [facility]; Protocol Last Admin: 08/01/24 08:21 Dose: 40 mg Assessment/ Plan: Nephrology No dyspnea No chest pain Doing well No acute events overnight Vitals, medications, blood work and imaging reviewed in the chart Physical Examination General: Oriented x3, Cooperative HEENT: Atraumatic Neck: Supple Respiratory: Clear to auscultation bilaterally Cardiovascular: Regular rate/rhythm, No Edema Gastrointestinal: Soft and benign, Non-distended Musculoskeletal: No clubbing, No contractures Integumentary: No rashes, No cyanosis, Diabetic ulcer left great toe Neurological: Normal speech Blood work reviewed in the chart. Imagings Data: EXAMINATION: XR LEFT FOOT CLINICAL INDICATION: great toe DM ulcer;Pain TECHNIQUE: Multiple projections of the left foot were obtained. COMPARISON: No prior exam. FINDINGS: Soft tissue swelling is seen affecting the great toe. Focal ulceration is seen anteriorly along the plantar aspect. Subtle demineralization of the distal tuft medially of the great toe likely represents osteomyelitis. No soft tissue gas. Conclusions/Impression: Stage III NIYA may be due to hypovolemia and relative hypotension CKD III with Proteinuria -No NSAIDs Hyponatremia -Improved -Caution with thiazide HTN with CKD Paroxysmal Afib -Continue Metoprolol DM II with CKD -RISS DM II with Left Toe Ulcer with osteomyelitis -MRI foot reviewed -Surgery and ID following -Wound care as ordered -Continue abx; monitor vanc level Anemia in chronic illness Hx Iron Deficiency Thrombocytopenia -Monitor CBC -Continue iron supplementation CKD MBD Hypophosphatemia -Encourage nutrition Hospitalist note reviewed
--- NOTE | 2024-08-01 20:52 | PN ---
Subjective: The patient is lying in bed. No new acute event. Chart reviewed. Objective: Vital Signs: Reviewed. Temperature 98, pulse 55, respirations 19, blood pressure 127/65 . Lungs: Clear to auscultation. Heart: S1, S2. Regular. Abdomen: Soft, nontender. Bowel sounds present. Extremities: Wound noted. Laboratory Data: Shows BUN of 33, creatinine 1.7. Assessment And Plan: 1. Osteomyelitis of left foot first toe with the diabetic foot ulcer and diabetic neuropathy. 2. Diabetes mellitus. 3. Renal failure, improving. 4. Proteinuria. 5. Thrombocytopenia. 6. Moderate protein-calorie malnourishment. 7. Poly-organism infection of the wound. We will follow the patient as needed. Monitor signs of infection with WBC and fever trends. NF/MODL Voice ID: [id number] Report ID: [id number]
[2024-08-01] MEDS: ZOLPIDEM TARTRATE 5 MG TABLET PO PRN (21:05)
--- NOTE | 2024-08-02 11:50 | P.PN ---
Date of Service: 08/02/24 Subjective: No overnight events. denies pain, fevers, chills. Transferring to nursing facility. seen resting comfortably in bed Review of systems: 10 point review of systems otherwise negative except as per HPI Physical Examination - Vital Signs Reviewed - Physical Exam General: Alert, In no apparent distress Respiratory: Clear to auscultation bilaterally, Normal air movement Cardiovascular: Regular rate/rhythm, Normal S1 S2 Gastrointestinal: Soft and benign, Non-distended Musculoskeletal: Left great toe with wound on the plantar aspect Neurological: No focal deficits Assessment And Plan - Assessment (1) Acute renal failure Current Visit: Yes Status: Acute Qualifiers: Acute renal failure type: unspecified Qualified Code(s): N17.9 - Acute kidney failure, unspecified (2) Diabetes type 2 Current Visit: Yes Status: Acute Qualifiers: 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 PICC line placed. cultures positive for Klebsiella, Proteus vulgaris, Staph aureus #Acute renal failure on CKD Renal function is stable. #Diabetes type 2: Blood glucose monitoring; Accu-Cheks before every meal nightly #Hypertension: -Strict blood pressure control #Hyperlipidemia -Continue with statin therapy # Chronic anemia and thrombocytopenia: -Monitor CBC Transaminitis Will continue to monitor Disposition: Awaiting nursing facility placement
[2024-08-02 12:19] LABS: Absolute Basophils 0.1 K/uL (0-0.5); Absolute Eosinophils 0.1 K/uL (0-0.5); Absolute Lymphocytes (CBC) 0.5 K/uL (0.7-4.9); Absolute Monocytes 0.7 K/uL (0.1-1.3); Absolute Neutrophil 5.7 K/uL (1.8-8.0); Basophils % 1.2 % (0-1.3); Eosinophils % 0.8 % (0-4.4); Hematocrit 35.8 % (39.6-49.0); Hemoglobin 12.3 g/dL (13.6-17.9); Lymphocytes % 6.5 % (15.3-44.8); MCH 33.2 pg (27.0-35.0); MCHC 34.5 g/dL (32.0-36.0); MCV 96.3 fL (80-100); MPV 10.3 fL (7.6-11.3); Monocytes % 10.5 % (3.3-12.3); Nucleated Red Blood Cells % 0.1 % (0-0); Platelets 89 thou/uL (152-406); RBC Red Blood Cell Count 3.71 M/uL (4.33-5.43)
[2024-08-02 12:40] LABS: Albumin 2.3 g/dL (3.4-5.0); Albumin/Globulin Ratio 0.7 (1.1-1.8); Anion Gap 8.5 mEq/L (5.0-15.0); Bilirubin Total 1.2 mg/dL (0.2-1.0); Globulin 3.5 g/dL (2.3-3.5); Potassium 4.5 mEq/L (3.5-5.1); Protein, Total 5.8 g/dL (6.4-8.2)
[2024-08-02 14:39] LABS: White Blood Cell Scan OK (OK)
[2024-08-02 14:40] LABS: Blood Morphology Comment NOT SEEN (NOT SEEN); Platelet Estimate DECR
--- NOTE | 2024-08-02 15:57 | P.PN ---
Date of Service: 08/02/24 Subjective Pt seen in room. no acute event. pt is alert and responsive. denied any concern.denied problem with abx Objective Temp Pulse Resp BP Pulse Ox 97.7 F 57 18 115/59 L 98 08/02/24 12:00 08/02/24 12:00 08/02/24 12:00 08/02/24 12:00 08/02/24 12:00 HEENT: Unremarkable. neuro: aox3 Neck: Supple. Lungs: CTA Heart: S1, S2. Regular. Abdomen: Soft, nontender. Bowel sounds present. Extremities: Left foot wound dressing noted. Laboratory Data: Shows WBC 7.1, hemoglobin 12.3, platelets are 89. Chemistry shows BUN 34,cr 1.81 creatinine 1.73 wound abscess: 07/25 Klebsiella, Proeteus vulgaris, Staph Aureus Assessment and Planning 1. left big toe osteomyelitis, sp debridement 07/25 with diabetic foot ulcer 2. CKD 3. DM2 4. Thrombocytopenia 5. Moderate protein calorie malnourishment wound culture grew Klebsiella, Proeteus vulgaris, Staph Aureus. dc vancomycin and cefepime due to thrombocytopenia. start zosyn. tentative stop date september 06. We will continue to follow. continue wound and supportive care. Monitor signs of infection with WBC and fever trend. plan discussed and in agreement with Dr cavazos
[2024-08-02] MEDS: PIPER TAZO 3.375 GM in NA CHLORIDE 0.9% 100 ML IV SCH (17:35)
--- NOTE | 2024-08-02 21:42 | P.PN ---
Date of Service: 08/02/24 Vital Signs Temp Pulse Resp BP Pulse Ox 97.4 F 59 18 118/60 96 08/02/24 16:00 08/02/24 17:36 08/02/24 16:00 08/02/24 17:36 08/02/24 16:00 Medications Acetaminophen (Acetaminophen 325 Mg Tablet) 650 mg PO Q4HP PRN PRN Reason: Pain scale 2-4 (Mild) Hydrocodone Bitart/Acetaminophen (Hydrocodone/Apap 7.5/325 Mg Tab) 1 tab PO Q6H PRN PRN Reason: Pain scale 5-7 (Moderate) Last Admin: 08/02/24 00:18 Dose: 1 tab Amiodarone HCl (Amiodarone Hcl 200 Mg Tab) 100 mg PO DAILY [facility] Last Admin: 08/02/24 08:49 Dose: 100 mg Aspirin (Aspirin Ec 81 Mg Tab) 81 mg PO DAILY [facility] Last Admin: 08/02/24 08:50 Dose: 81 mg Atorvastatin Calcium (Atorvastatin 10 Mg Tab) 10 mg PO BEDTIME [facility] Last Admin: 08/02/24 20:54 Dose: 10 mg Bumetanide (Bumetanide 1 Mg Tablet) 0.5 mg PO DAILY [facility] Cholecalciferol (Vitamin D 5,000 Unit Cap) 5,000 unit PO DAILY [facility] Last Admin: 08/02/24 08:49 Dose: 5,000 unit Docusate Sodium (Docusate Na 100 Mg Cap) 100 mg PO BID [facility] Last Admin: 08/02/24 20:54 Dose: 100 mg Enteral Nutritional Formula (Nepro Shake 237 Ml Can) 240 ml PO TID [facility] Last Admin: 08/02/24 20:55 Dose: Not Given Ferrous Sulfate (Ferrous Sulfate 325 Mg Tab) 325 mg PO DAILY [facility] Last Admin: 08/02/24 08:49 Dose: 325 mg Hydromorphone HCl (Hydromorphone Hcl 1 Mg/Ml Inj) 1 mg IV Q4H PRN PRN Reason: Pain scale 8-10 (Sev)-2ND LINE Last Admin: 07/30/24 20:50 Dose: 1 mg Piperacillin Sod/Tazobactam (Sod 3.375 gm/ Sodium Chloride) 100 mls @ 25 mls/hr IV Q8HR [facility]; Protocol Last Admin: 08/02/24 17:35 Dose: 100 mls Insulin Human Regular (Insulin Regular (Human) 100 Unit/Ml) 0 unit SQ ACHS [facility]; Protocol Last Admin: 08/02/24 20:54 Dose: 3 unit Lactobacillus Acidoph/Bulgaricus (Lactobacillus/Acidophilus Tab) 1 tab PO BIDPC [facility] Last Admin: 08/02/24 17:36 Dose: 1 tab Metoprolol Tartrate (Metoprolol Tar 25 Mg Tab) 12.5 mg PO BID 6AM 6PM [facility] Last Admin: 08/02/24 17:36 Dose: 12.5 mg Montelukast Sodium (Montelukast 10 Mg Tab) 10 mg PO DAILY [facility] Last Admin: 08/02/24 08:49 Dose: 10 mg Morphine Sulfate (Morphine 2 Mg/Ml Syr) 2 mg IV Q4H PRN PRN Reason: Pain scale 8-10 (Sev)-1ST LINE Last Admin: 07/31/24 20:55 Dose: 2 mg Multivitamins/Iron (Fe Sulf/Fa/Vit B Comp & C Tab) 1 tab PO DAILY WITH BREAKFAST [facility] Last Admin: 08/02/24 08:50 Dose: 1 tab Ondansetron HCl (Ondansetron 4 Mg/2 Ml Vial) 4 mg IV Q6HP PRN PRN Reason: NAUSEA / VOMITING Pantoprazole Sodium (Pantoprazole 40mg Tablet) 40 mg PO ACB [facility]; Protocol Last Admin: 08/02/24 08:50 Dose: 40 mg Zolpidem Tartrate (Zolpidem Tartrate 5 Mg Tablet) 5 mg PO BEDTIME PRN PRN PRN Reason: INSOMNIA Last Admin: 08/02/24 21:32 Dose: 5 mg Assessment/ Plan: Nephrology No dyspnea No chest pain Doing well No acute events overnight Vitals, medications, blood work and imaging reviewed in the chart Physical Examination General: Oriented x3, Cooperative HEENT: Atraumatic Neck: Supple Respiratory: Clear to auscultation bilaterally Cardiovascular: Regular rate/rhythm, No Edema Gastrointestinal: Soft and benign, Non-distended Musculoskeletal: No clubbing, No contractures Integumentary: No rashes, No cyanosis, Diabetic ulcer left great toe Neurological: Normal speech Blood work reviewed in the chart. Imagings Data: EXAMINATION: XR LEFT FOOT CLINICAL INDICATION: great toe DM ulcer;Pain TECHNIQUE: Multiple projections of the left foot were obtained. COMPARISON: No prior exam. FINDINGS: Soft tissue swelling is seen affecting the great toe. Focal ulceration is seen anteriorly along the plantar aspect. Subtle demineralization of the distal tuft medially of the great toe likely represents osteomyelitis. No soft tissue gas. Conclusions/Impression: Stage III NIYA may be due to hypovolemia and relative hypotension CKD III with Proteinuria -No NSAIDs Hyponatremia -Improved -Discontinue thiazide due to worsening hyponatremia HTN with CKD Paroxysmal Afib -Continue Metoprolol Diastolic CHF, chronic Peripheral Edema -Change thiazide to Bumex -Check echocardiogram DM II with CKD -RISS DM II with Left Toe Ulcer with osteomyelitis -MRI foot reviewed -Surgery and ID following -Wound care as ordered -Continue abx; monitor vanc level Anemia in chronic illness Hx Iron Deficiency Thrombocytopenia -Monitor CBC -Continue iron supplementation CKD MBD Hypophosphatemia -Encourage nutrition Hospitalist note reviewed
--- NOTE | 2024-08-03 11:54 | ECHO ---
HEIGHT: 5 ft 9 in WEIGHT: 157 lb 0 oz DATE OF STUDY: 08/03/[address]: See Wilcox DO 2-DIMENSIONAL: YES M.MODE: YES DOPPLER: YES COLOR FLOW: YES TDS: PORTABLE: YES DEFINITY: BUBBLE STUDY: DIAGNOSIS: CONGESTIVE HEART FAILURE/ EDEMA CARDIAC HISTORY: CATHERIZATION: YES SURGERY: YES PROSTHETIC VALVE: NO PACEMAKER: NO MEASUREMENTS (cm) DIASTOLIC (NORMALS) SYSTOLIC (NORMALS) IVSd 1.1 (0.6-1.2) LA Diam 5.1 (1.9-4.0) LVEF 60-65% LVIDd 2.5 (3.5-5.7) LVIDs 1.8 (2.0-3.5) %FS 27% LVPWd 1.2 (0.6-1.2) Ao Diam 2.9 (2.0-3.7) 2 DIMENSIONAL ASSESSMENT: RIGHT ATRIUM: NORMAL LEFT ATRIUM: SEVERELY DILATED RIGHT VENTRICLE: NORMAL LEFT VENTRICLE: NORMAL TRICUSPID VALVE: TRACE TRICUSPID REGURGITATION MITRAL VALVE: SEVERE MITRAL ANNULAR CALCIFICATION PULMONIC VALVE: NORMAL AORTIC VALVE: NORMAL PERICARDIAL EFFUSION: NONE AORTIC ROOT: NORMAL LEFT VENTRICULAR WALL MOTION: NORMAL DOPPLER/COLOR FLOW: GRADE II DIASTOLIC DYSFUNCTION COMMENTS: 1. NORMAL LEFT VENTRICULAR SYSTOLIC FUNCTION, EJECTION FRACTION 60-65%, NORMAL WALL MOTION 2. GRADE II DIASTOLIC DYSFUNCTION 3. SEVERE MITRAL ANNULAR CALCIFICATION WITH MILD TO MODERATE MITRAL STENOSIS (MITRAL VALVE AREA 1.5 CENTIMETERS SQUARED, MEAN GRADIENT 7 mmHg) TECHNOLOGIST: [facility]
--- NOTE | 2024-08-03 12:12 | P.PN ---
Nephrology note (S) Pt seen resting comfortably, denies CP, dyspnea, Lt foot or leg pain. Denies abd pain or nausea, lab results discussed (O) Vitals, medications, blood work and imaging reviewed in the chart General: NAD, non tachypnec HEENT: Atraumatic, not needing O2 Neck: Supple Respiratory: Clear to auscultation bilaterally mostly, no rhonchi Cardiovascular: Non tachy, mostly regular, no sig LE edema Gastrointestinal: Soft and benign, Non-distended Musculoskeletal: Shins non tender, No contractures Integumentary: No rashes, Neurological: Normal speech, awake, alert Blood work reviewed in the chart. Conclusions/Impression: Sub acute Stage III renal failure with Cr level > 4 mg/dl on admission, multifac torial, resolved since, on underlying CKD Stage III 2nd to chronic conditions -Cr level steadily downward trended/stabilized, will f/u closely in clinic. UA on admission unremarkable. Monitor closely on IV Abx HTN with CKD -BP can be labile, currently acceptable, cont to monitor, pt's thiazide diuretic appears to have been switched to loop. 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
--- NOTE | 2024-08-03 16:06 | P.PN ---
Date of Service: 08/03/24 Subjective: No overnight events. denies pain, fevers, chills. seen resting comfortably in bed Review of systems: 10 point review of systems otherwise negative except as per HPI Physical Examination - Vital Signs Reviewed - Physical Exam General: Alert, In no apparent distress Respiratory: Clear to auscultation bilaterally, Normal air movement Cardiovascular: Regular rate/rhythm, Normal S1 S2 Gastrointestinal: Soft and benign, Non-distended Musculoskeletal: Left great toe with wound on the plantar aspect Neurological: No focal deficits Assessment And Plan - Assessment (1) Acute renal failure Current Visit: Yes Status: Acute Qualifiers: Acute renal failure type: unspecified Qualified Code(s): N17.9 - Acute kidney failure, unspecified (2) Diabetes type 2 Current Visit: Yes Status: Acute Qualifiers: 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 PICC line placed. cultures positive for Klebsiella, Proteus vulgaris, Staph aureus. Follow-up with outpatient infectious #Acute renal failure on CKD stage III Renal function is stable. -Now on Bumex Mitral stenosis heart failure with preserved ejection fraction - Grade 2 diastolic dysfunction on echo. EF 60 to 65%. - Severe mitral annular calcification with mild to moderate mitral stenosis - Follow-up with cardiology #Diabetes type 2: Blood glucose monitoring; Accu-Cheks before every meal nightly #Hypertension: -Strict blood pressure control #Hyperlipidemia -Continue with statin therapy # Chronic anemia and thrombocytopenia: -Monitor CBC Transaminitis Will continue to monitor Disposition: Arranging for outpatient IV antibiotics tentative stop date September 06. DVT prophylaxis with SCDs
--- NOTE | 2024-08-03 22:19 | PN ---
Subjective: The patient is lying in bed, family by the bedside, not in any acute distress. Objective: Vital Signs: Temperature 98, pulse 64, respirations 16, blood pressure 129/63. Lungs: Clear to auscultation. Heart: S1, S2. Regular. Abdomen: Soft, nontender. Bowel sounds present. Extremities: Trace edema. Laboratory Data: WBC 7.1, from yesterday; hemoglobin 12.3; platelets 89. Chemistry shows BUN of 34, creatinine 1.1. Culture from the wound shows Staph aureus, Proteus vulgaris, Klebsiella oxytoca. T he patient is currently on Zosyn. Assessment And Plan: 1. Osteomyelitis of left foot, first toe with diabetic foot ulcer and diabetic neuropathy. 2. Diabetes mellitus. 3. Renal insufficiency. 4. Proteinuria. 5. Thrombocytopenia, concern regarding possible cause, Zosyn. 6. Moderate protein-calorie malnourishment. 7. Poly-organism infection of the wound. Consider Betadine or Silvadene to the wound site and keep t he wound covered. Continue supportive care and monitor signs of infection with WBC and fever trends. No other recommendation. NF/MODL Voice ID: [id number] Report ID: [id number]
[2024-08-04] MEDS: BUMETANIDE 1 MG TABLET PO SCH (09:05)
[2024-08-04 09:34] VITALS: O2SAT 98
--- NOTE | 2024-08-04 11:17 | P.PN ---
Nephrology note (S) Pt seen resting comfortably, denies CP, dyspnea, Lt foot or leg pain. Denies abd pain or nausea, lab results discussed (O) Vitals, medications, blood work and imaging reviewed in the chart General: NAD, non tachypnec HEENT: Atraumatic, not needing O2 Neck: Supple Respiratory: Clear to auscultation bilaterally mostly, no rhonchi Cardiovascular: Non tachy, mostly regular, no sig LE edema Gastrointestinal: Soft and benign, Non-distended Musculoskeletal: Shins non tender, No contractures Integumentary: No rashes, left foot large toe swollen, wound noted, josephine- erythema, site c/d otherwise Neurological: Normal speech, awake, alert Blood work reviewed in the chart. Conclusions/Impression: Sub acute Stage III renal failure with Cr level > 4 mg/dl on admission, multifactorial, resolved since, on underlying CKD Stage III 2nd to chronic conditions -Cr level steadily downward trended/stabilized, will f/u closely in clinic. UA on admission unremarkable. Monitor closely on IV Abx HTN with CKD -BP can be labile, currently acceptable, cont to monitor, pt's thiazide diuretic appears to have been switched to loop. Would keep off MRA/Spironolactone DM II with Left Toe Ulcer with osteomyelitis -Management per surgery/IM, site will need close f/u in wound care clinic -Abnormal results of LFTs Defer to IM/ID to monitor on IV Abx and adjust therapy as indicated Hyperglycemia -Will review role for SGLT2i agent as an OP, maintain avg BG < 180
--- NOTE | 2024-08-04 11:47 | P.DS ---
Admission Date: 07/24/24 Discharge Date: 08/04/24 Primary Care Provider: Nemo Mederos NP Disposition: DC HOME/HOME HEALTH CARE Discharge Condition: GOOD Reason for Admission: Left foot ulcer Hospital Course: 68-year-old male with a past medical history diabetes, hyperlipidemia, hypertension, heart failure with preserved ejection fraction, Stage III chronic kidney disease, presents to the emergency room for left foot toe ulcer with superimposed acute on chronic kidney disease. He was referred to the emergency room by Dr. Rao for evaluatioon of osteomyelitis of the left lower extremity. He reports left great toe ulcer that has been going on for more than a month is getting progressively worse. He reports lower extremity foot tenderness to palpitation, swelling, and pain that is getting progressively worse. He reports doing daily dressing changes, but is not helping the wound. He reports left foot pain is 10 out of 10. Left lower extremity foot x-ray e great toe. Focal ulceration is seen anteriorly along the plantar aspect. Subtle demineralization of the distal tuft medially of the great toelikely represents osteomyelitis. No soft tissue gas. No leukocytosis,, positive for left shift 85, microcytic anemia 13.5, 39.0,, CKD, BUN 58 creatinine 3.88, GFR 16, plan to admit for osteomyelitis left lower extremity, surgery, nephrology to consult Upon admission he underwent incision, drainage and debridement of the infected wound of the left great toe. infectious disease was consulted. He was started on broad-spectrum IV antibiotics vancomycin. Echocardiogram showed an EF of 60 to 65% with severe mitral annular calcification with moderate to mitral stenosis alongside grade 2 diastolic dysfunction. He will complete his course of IV antibiotics for total of 6 weeks on September 06. His creatinine level stabilized around 1.8 prior to discharge. Home health was arranged and PICC line was inserted. The remainder of his medical problems are chronic and stable. He is medically optimized for discharge Vital Signs/Physical Exam: Temp Pulse Resp BP Pulse Ox 97.7 F 62 17 138/72 99 08/04/24 08:00 08/04/24 09:05 08/04/24 08:00 08/04/24 09:05 08/04/24 08:00 General: In no apparent distress HEENT: Normocephalic Neck: Supple, 2+ carotid pulse no bruit Respiratory: Clear to auscultation bilaterally Cardiovascular: No edema Capillary refill: <2 Seconds Gastrointestinal: Normal bowel sounds Musculoskeletal: No clubbing Integumentary: Other (PICC line in place) Neurological: Normal speech, Normal strength at 5/5 x4 extr Lymphatics: No axilla or inguinal lymphadenopathy Laboratory Data at Discharge: WBC 7.10 thou/uL (4.3-10.9) 08/02/24 12:10 Hgb 12.3 g/dL (13.6-17.9) L 08/02/24 12:10 Hct 35.8 % (39.6-49.0) L 08/02/24 12:10 Plt Count 89 thou/uL (152-406) L 08/02/24 12:10 Sodium 134 mEq/L (136-145) L 08/02/24 12:10 Potassium 4.5 mEq/L (3.5-5.1) 08/02/24 12:10 BUN 34 mg/dL (7-18) H 08/02/24 12:10 Creatinine 1.81 mg/dL (0.70-1.30) H 08/02/24 12:10 Glucose 213 mg/dL (74-106) H 08/02/24 12:10 Uric Acid 3.4 mg/dL (3.5-7.2) L 08/01/24 03:50 Phosphorus 1.9 mg/dL (2.5-4.9) L 08/01/24 03:50 Magnesium 1.9 mg/dL (1.6-2.4) 07/29/24 04:57 Total Bilirubin 1.2 mg/dL (0.2-1.0) H 08/02/24 12:10 AST 190 U/L (15-37) H 08/02/24 12:10 ALT 170 U/L (16-61) H 08/02/24 12:10 Alkaline Phosphatase 235 U/L (45-117) H 08/02/24 12:10 Triglycerides 91 mg/dL (<150) 07/25/24 06:15 Cholesterol 117 mg/dL (<200) 07/25/24 06:15 HDL Cholesterol 46 mg/dL (40-60) 07/25/24 06:15 Cholesterol/HDL Ratio 2.54 07/25/24 06:15 Home Medications: Metformin ER [Glucophage ER*] 500 mg PO BIDWM 07/01/18 Terazosin HCl 2 mg PO BEDTIME 07/01/18 hydroCHLOROthiazide [Hydrochlorothiazide] 50 mg PO DAILY 07/01/18 Pravastatin [Pravachol*] 40 mg PO BEDTIME 06/23/23 Amiodarone HCl [Cordarone*] 200 mg PO TID #90 tab 06/28/23 Aspirin [Aspirin EC 81 MG] 81 mg PO DAILY #30 06/28/23 Cholecalciferol (Vitamin D3) [Vitamin D 5,000 IU Cap*] 5,000 unit PO DAILY cap 06/28/23 Ferrous Sulfate [Ferrous Sulfate*] 325 mg PO DAILY tab 06/28/23 Iron/FA/Vit B-Com W/C [Hemocyte Plus*] 1 tab PO DAILY WITH BREAKFAST #30 tab 06/28/23 Metoprolol Tartrate [Lopressor*] 12.5 mg PO BID 6AM 6PM #30 tab 06/28/23 Montelukast [Singulair*] 10 mg PO DAILY #30 tab 06/28/23 Pantoprazole [Protonix Tab*] 40 mg PO DAILYAC #30 tab 06/28/23 Potassium Oral Tab [Klor-Con 10 mEq Tab*] 20 meq PO BID #120 tab 06/28/23 Zolpidem Tartrate [Ambien*] 5 mg PO BEDTIME PRN PRN 30 Days #30 tab 08/04/24 New Medications: Zolpidem Tartrate [Ambien*] 5 mg PO BEDTIME PRN PRN 30 Days #30 tab PRN Reason: Insomnia Physician Discharge Instructions: Follow up with Dr Rao in the wound care clinic Followup: Bin Rao MD [ACTIVE - CAN ADMIT] - (Follow up for wound care at wound care clinic.) Nemo Mederos FNP [Primary Care Provider] - 1-2 Weeks
[2024-08-04 12:03] VITALS: BP 127/65; TEMP 97.6
== END 2024-08-04 14:08 | disposition home health service (06) | DRG 264 ==
LOC: ER 09:25 → ERHOLD 11:05 → 4TH 16:33
PROVIDERS: ADMIT Hospitalist; ATTEND Family Medicine
PROC: 02HV33Z Insertion of Infusion Device into Superior Vena Cava, Percutaneous Approach (ICD-10-PCS; 2024-07-24)
PROC: 0JBR0ZZ Excision of Left Foot Subcutaneous Tissue and Fascia, Open Approach (ICD-10-PCS; principal; 2024-07-25 08:30)
DX: E11.52 Type 2 diabetes mellitus with diabetic peripheral angiopathy with gangrene (principal); E87.1 Hypo-osmolality and hyponatremia; I13.0 Hypertensive heart and chronic kidney disease with heart failure and stage 1 through stage 4 chronic kidney disease, or unspecified chronic kidney disease; M86.172 Other acute osteomyelitis, left ankle and foot; I50.32 Chronic diastolic (congestive) heart failure; L03.116 Cellulitis of left lower limb; N17.9 Acute kidney failure, unspecified; E44.0 Moderate protein-calorie malnutrition; E11.69 Type 2 diabetes mellitus with other specified complication; E11.621 Type 2 diabetes mellitus with foot ulcer; L97.529 Non-pressure chronic ulcer of other part of left foot with unspecified severity; N18.30 Chronic kidney disease, stage 3 unspecified; E11.22 Type 2 diabetes mellitus with diabetic chronic kidney disease; E11.42 Type 2 diabetes mellitus with diabetic polyneuropathy; E11.649 Type 2 diabetes mellitus with hypoglycemia without coma; E11.65 Type 2 diabetes mellitus with hyperglycemia; D63.1 Anemia in chronic kidney disease; D50.9 Iron deficiency anemia, unspecified; D69.6 Thrombocytopenia, unspecified; I48.0 Paroxysmal atrial fibrillation; E78.00 Pure hypercholesterolemia, unspecified; B96.4 Proteus (mirabilis) (morganii) as the cause of diseases classified elsewhere; B96.1 Klebsiella pneumoniae [K. pneumoniae] as the cause of diseases classified elsewhere; B95.61 Methicillin susceptible Staphylococcus aureus infection as the cause of diseases classified elsewhere; R74.01 Elevation of levels of liver transaminase levels; Z95.1 Presence of aortocoronary bypass graft; Z68.23 Body mass index [BMI] 23.0-23.9, adult; Z79.82 Long term (current) use of aspirin; Z79.02 Long term (current) use of antithrombotics/antiplatelets; Z79.84 Long term (current) use of oral hypoglycemic drugs; Z79.890 Hormone replacement therapy; Z79.899 Other long term (current) drug therapy
CPT/HCPCS: 36415; 36569; 71045; 80048; 80053; 80061; 80202; 81003; 82947; 83036; 83735; 84100; 84550; 85025; 86140; 87070; 87075; 87077; 87186; 87205; 88304; 93306; 93925; 93970; 96365; 97116; 97161; 97530; 99285; J0171; J0692; J1100; J1171; J1644; J1815; J2003; J2270; J2405; J2543; J2704; J3010; J3370; J3590; J7030; J7042; J7050; J7120

== ENCOUNTER 2024-08-10 03:53 | Emergency (ER) | payer OTHER ==
--- OUTSIDE RECORDS SUMMARY | 2024-08-10 04:08 | XMS REPORT | Continuity of Care Document ---
Author Name Unknown Address [address] [facility] [place] [address] [facility] [place] Address [address] [facility] [place] [address] Care Team Providers Care Hyster Driver Name Role Phone Kaveh Portillo Primary Care Physician [phone] Kaveh Portillo Attending Clinician Unavailable L_Pena Attending Clinician Unavailable Bladimir Morse Attending Clinician Unav ailMERCEDES Cook Attending Clinician Unavailab luis PAYNE_Lanie Attending Clinician Unavailable Doctor Unassigned, [place] Attending Clinician U yudiailNeil Guan DO Attending Clinician [phone] TK YANES Attending Clinician Unavailable Becki Gil MD Attending Clinician [phone] BECKI GIL Attending Clinician Unavailable L_Pena Admitting Clinician Unavailable Talat Lord Admitting Clinician Unavailable TOPHER TAYLOR Admitting Clinician Rochelle PAYNE_F Admitting Clinician Unavailable Payers Payer Name Policy Type Policy Number Effective Date Expirati on Date Source [place] [id number] 2018 00:00:[place] [id number] 2018 00:00:00 [employer] [place] [employer] [place] 6 [id number] 2017 00:00:00 [facility] Problems Condition Name Condition Details Condition Category Status Onset Date Resolution Date Last Treatment Date Treating Clinician Comments Source Chronic kidney disease stage 3B Chronic Kidney Disease Stage 3B Problem Active 04-04 00:00: 00 [facility] Hypothyroi dism Hypothyroi dism Problem Active 11-02 00:00: 00 [facility] Coronary arterioscl erosis Coronary Arterioscl erosis Problem Active 4- 00:00: 00 [facility] History of coronary artery bypass grafting History of Coronary Artery Bypass Grafting Problem Active 4-08 00:00: 00 [facility] Myocardial infarction Myocardial Infarction Problem Active 3-04 00:00: 00 [facility] Mixed hyperlipid emia Mixed Hyperlipid emia Problem Active 05-11 00:00: 00 [facility] Cirrhosis of liver Cirrhosis of Liver Problem Active 2022-0320 00:00: 00 [facility] Type 2 diabetes mellitus Type 2 Diabetes Mellitus Problem Active 2022-03 00:00: 00 [facility] Posttrauma tic stress disorder Posttrauma tic Stress Disorder Problem Active 2022-03 00:00: 00 [facility] Insomnia Insomnia Problem Active 2022-03 00:00: 00 [facility] Hypertensi ve disorder Hypertensi ve Disorder Problem Active 2022-03 00:00: 00 [facility] Morbid obesity due to excess calories Morbid obesity due to excess calories Disease Active 12-16 00:00: 00 [facility] Dyslipidem ia Dyslipidem ia Disease Active 12-16 00:00: 00 [facility] Essential hypertensi on Essential hypertensi on Disease Active 12-16 00:00: 00 [facility] History of hepatitis C History of Hepatitis C Problem Active [facility] [id number] Urge incontinen ce Problem Common [facility] Urethral stricture Urethral stricture Problem Common [facility] Chronic hepatitis C Chronic hepatitis C Problem [facility] Gastrointe stinal hemorrhage Gastrointe stinal hemorrhage Problem [facility] [id number] BPH loc w urin obs/LUTS Problem [facility] Chronic gastritis Chronic gastritis Problem Common [facility] Benign essential hypertensi on Benign essential hypertensi on Problem Common [facility] Erectile dysfunctio n Erectile dysfunctio n Problem [facility] [id number] Allergic rhinitis with mild intermitte nt asthma without status asthmaticu s without complicati on Problem [facility] Benign prostatic hyperplasi a BPH (benign prostatic hyperplasi a) Problem Common [facility] Benign prostatic hypertroph y without outflow obstructio n BPH without urinary obstructio n Problem [facility] Oesophagea l varices without bleeding Secondary esophageal varices without bleeding Problem [facility] [id number] Diaphragma tic hernia without obstructio n or gangrene Problem [facility] Dizziness Dizziness Problem Comm on [facility] Iron deficiency anemia due to chronic blood loss Iron deficiency anemia due to chronic blood loss Problem [facility] [id number] Microalbum inuria Problem Common [facility] [id number] Subclinica l hypothyroi dism Problem [facility] Syncope Syncope Problem [facility] [id number] Noncomplia nce with dietary restrictio n Problem [facility] [id number] Adult BMI 35.0-35.9 kg/sq m Problem [facility] [id number] Gross hematuria Problem [facility] [id number] Erectile dysfunctio n, unspecifie d erectile dysfunctio n type Problem [facility] [id number] Acquired contractur e of bladder neck Problem [facility] [id number] Balanopost hitis Problem [facility] Type II diabetes mellitus without complicati on Diabetes mellitus type 2, uncontroll ed, without complicati ons Problem [facility] [id number] OAB (overactiv e bladder) Problem [facility] [id number] Gastro-eso phageal reflux disease without esophagiti s Problem 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 [id number] ED (erectile dysfunctio n) of organic origin Problem [facility] [id number] S/P TURP Problem Commo n [facility] [id number] Scrotal skin lesion Problem [facility] [id number] Other ejaculator y dysfunctio n Problem [facility] Allergies, Adverse Reactions, Alerts Allergy Name Allergy Type Status Severity Reaction(s) Onset Date Inactive Date Treating Clinician Comments Source No Known Allergie s DA Active U 05-30 00:00: 00 [facility] Losartan Propensi ty to adverse reaction s Active Cough 10-14 00:00: 00 [facility] LOSARTAN DRUG INGREDI Active COUGH 10-14 00:00: 00 [facility] No Known Drug Intolera nces DA Active U 08-16 00:00: 00 [facility] No Known Contrast Allergie s DA Active U 08-15 00:00: 00 [facility] No Known Drug Allergie s DA Active U 08-15 00:00: 00 [facility] No Known Food Allergie s DA Active U 08-15 00:00: 00 [facility] No Known Other Allergie s DA Active U 08-15 00:00: 00 [facility] Social History Social Habit Start Date Stop Date Quantity Comments Source History of Tobacco Use [facility] Sex Assigned At [facility] Sexual orientation U [facility] Exposure to SARS-CoV-2 (event) Not sure [facility] History of Social function 2020-02-21 00:00:00 2020-02-21 00:00:00 [facility] Tobacco use and exposure 2020-02-21 00:00:00 2020-02-21 00:00:00 Smokeless tobacco non-user [facility] Alcohol intake 2020-02-21 00:00:00 2020-02-21 00:00:00 Current non-drinker of alcohol (finding) [facility] Smoking Status Start Date Stop Date Source Never Smoker [facility] Ex-smoker 2020-02-21 00:00:00 2020-02-21 00:00:00 [facility] Medications Ordered Medication Name Filled Medication Name Start Date Stop Date Current Medication? Ordering Clinician Indication Dosage Frequency Signature (SIG) Comments Components Source potassium chloride ER 10 mEq tablet,exte nded release potassium chloride ER 10 mEq tablet,exte nded release 9-10 00:00: 00 No potassium chloride ER 10 mEq tablet,ext ended release [facility] traZODone HCl 50 MG traZODone HCl [...] VESIcare 5 MG VESIcare 5 MG 2020-0 -18 00:00: 00 09-11 00:00 :00 No 1{table t} QD VESIcare 5 MG Nystatin-Tr iamcinolone 733943-8.1 UNIT/GM Nystatin-Tr iamcinolone 887349-6.1 UNIT/GM 1-0 18 00:00: 00 09-05 00:00 :00 No 1{appli cation} BID Nystatin-T riamcinolo ne 477525-6.1 UNIT/GM Nystatin-Tr iamcinolone 802655-7.1 UNIT/GM Nystatin-Tr iamcinolone 448867-1.1 UNIT/GM 1-0 18 00:00: 00 09-05 00:00 :00 No 1{appli cation} BID Nystatin-T riamcinolo ne 737212-8.1 UNIT/GM Tadalafil 20 MG Tadalafil 20 MG [...] mouth 2 (two) times daily with meals. [facility] aspirin 81 mg EC tablet 2019-03 14:55: 06 Yes 81mg Take 81 mg by mouth daily. [facility] GLUCOSAMINE SULFATE (GLUCOSAMIN E ORAL) 2019-03 14:55: 06 Yes 4000mg Take 4,000 mg by mouth daily. [facility] guaiFENesin (MUCINEX) 600 mg tablet 2019-03 14:55: 06 Yes 600mg Take 600 mg by mouth every 12 (twelve) hours. [facility] carvedilol 25 mg tablet 2019-03 08:55: 06 Yes 25mg Take 25 mg by mouth 2 (two) times daily with meals. [facility] aspirin 81 mg EC tablet 2019-03 08:55: 06 Yes 81mg Take 81 mg by mouth daily. [facility] GLUCOSAMINE SULFATE (GLUCOSAMIN E ORAL) 2019-03 08:55: 06 Yes 4000mg Take 4,000 mg by mouth daily. [facility] guaiFENesin (MUCINEX) 600 mg tablet 2019-03 08:55: 06 Yes 600mg Take 600 mg by mouth every 12 (twelve) hours. [facility] hydroCHLORO thiazide 25 mg tablet 2017-03 00:00: 00 Yes 25mg Take 1 tablet by mouth daily. [facility] carvedilol 25 mg tablet 07-21 18:08: 35 Yes 25mg Take 25 mg by mouth 2 (two) times daily with meals. [facility] aspirin 81 mg EC tablet 07-21 18:08: 35 Yes 81mg Take 81 mg by mouth daily. [facility] GLUCOSAMINE SULFATE (GLUCOSAMIN E ORAL) 07-21 18:08: 35 Yes 4000mg Take 4,000 mg by mouth daily. [facility] guaiFENesin (MUCINEX) 600 mg tablet 07-21 18:08: 35 Yes 600mg Take 600 mg by mouth every 12 (twelve) hours. [facility] empaglifloz in (JARDIANCE) 25 mg Tab 06-30 00:00: 00 Yes [id number] Take 1 TAB-CAP/M2 by mouth daily. [facility] atorvastati n 20 mg tablet 06-30 00:00: 00 Yes [id number] 20mg Take 1 tablet by mouth at bedtime. [facility] amiodarone 200 mg tablet Take 1 tablet 3 times a day by oral route. amiodarone 200 mg tablet Take 1 tablet 3 times a day by oral route. No amiodarone 200 mg tablet Take 1 tablet 3 times a day by oral route. [facility] aspirin aspirin No aspirin S [facility] bumetanide 1 mg tablet 4 tabs BID bumetanide 1 mg tablet 4 tabs BID No bumetanide 1 mg tablet 4 tabs BID [facility] clopidogrel 75 mg tablet TAKE 1 TABLET BY MOUTH EVERY DAY clopidogrel 75 mg tablet TAKE 1 TABLET BY MOUTH EVERY DAY No 1 Q1D clopidogre l 75 mg tablet TAKE 1 TABLET BY MOUTH EVERY DAY [facility] metoprolol tartrate 25 mg tablet 1/2 tab bid metoprolol tartrate 25 mg tablet 1/2 tab bid No metoprolol tartrate 25 mg tablet 1/2 tab bid [facility] montelukast 10 mg tablet Take 1 tablet every day by oral route for 90 days. montelukast 10 mg tablet Take 1 tablet every day by oral route for 90 days. No montelukas t 10 mg tablet Take 1 tablet every day by oral route for 90 days. [facility] pantoprazol e 40 mg tablet,delvin yed release Take 1 tablet every day by oral route for 90 days. pantoprazol e 40 mg tablet,delvin yed release Take 1 tablet every day by oral route for 90 days. No pantoprazo le 40 mg tablet,del ayed release Take 1 tablet every day by oral route for 90 days. [facility] pravastatin 40 mg tablet TAKE 1 TABLET BY MOUTH EVERY NIGHT AT BEDTIME pravastatin 40 mg tablet TAKE 1 TABLET BY MOUTH EVERY NIGHT AT BEDTIME No pravastati n 40 mg tablet TAKE 1 TABLET BY MOUTH EVERY NIGHT AT BEDTIME [facility] spironolact one 25 mg tablet Take 1 tablet twice a day by oral route. spironolact one 25 mg tablet Take 1 tablet twice a day by oral route. No spironolac tone 25 mg tablet Take 1 tablet twice a day by oral route. [facility] terazosin 2 mg capsule TAKE 1 CAPSULE BY MOUTH EVERY DAY terazosin 2 mg capsule TAKE 1 CAPSULE BY MOUTH EVERY DAY No terazosin 2 mg capsule TAKE 1 CAPSULE BY MOUTH EVERY DAY [facility] hydrochloro thiazide 50 mg tablet Take 1 tablet every day by oral route in the morning for 90 days. hydrochloro thiazide 50 mg tablet Take 1 tablet every day by oral route in the morning for 90 days. No hydrochlor othiazide 50 mg tablet Take 1 tablet every day by oral route in the morning for 90 days. [facility] Multivitami n 50 Plus Multivitami n 50 Plus No Multivitam in 50 Plus [facility] Vitamin B1 100 mg tablet Take 1 tablet every day by oral route. Vitamin B1 100 mg tablet Take 1 tablet every day by oral route. No 1 Q1D Vitamin B1 100 mg tablet Take 1 tablet every day by oral route. [facility] Vitamin B12 500 mcg tablet Take 1 tablet every day by oral route. Vitamin B12 500 mcg tablet Take 1 tablet every day by oral route. No 1 Q1D Vitamin B12 500 mcg tablet Take 1 tablet every day by oral route. [facility] Vitamin D3 5000 units daily Vitamin D3 5000 units daily No Vitamin D3 5000 units daily [facility] BD Ultra-Fine Mini Pen Needle 31 gauge x 3/16" DIRECTED BD Ultra-Fine Mini Pen Needle 31 gauge x 3/16" DIRECTED No BD Ultra-Fine Mini Pen Needle 31 gauge x 3/16" DIRECTED [facility] Jardiance 10 mg tablet Take 1 tablet every day by oral route in the morning for 90 days. Jardiance 10 mg tablet Take 1 tablet every day by oral route in the morning for 90 days. No 1 Q1D Jardiance 10 mg tablet Take 1 tablet every day by oral route in the morning for 90 days. [facility] Mounjaro 2.5 mg/0.5 mL subcutaneou s [...] by subcutaneo us route for 84 days. [facility] FreeStyle Nikki 3 Sensor device USE DIRECTED FreeStyle Nikki 3 Sensor device USE DIRECTED No FreeStyle Nikki 3 Sensor device USE DIRECTED [facility] levothyroxi ne 125 mcg tablet Take 1 tablet every day by oral route in the morning for 90 days. levothyroxi ne 125 mcg tablet Take 1 tablet every day by oral route in the morning for 90 days. No 1 Q1D levothyrox ine 125 mcg tablet Take 1 tablet every day by oral route in the morning for 90 days. [facility] metformin 500 mg tablet TAKE 1 TABLET BY MOUTH 2 TIMES A DAY metformin 500 mg tablet TAKE 1 TABLET BY MOUTH 2 TIMES A DAY No metformin 500 mg tablet TAKE 1 TABLET BY MOUTH 2 TIMES A DAY [facility] mupirocin 2 % topical ointment APPLY A SMALL AMOUNT TO THE AFFECTED AREA BY TOPICAL ROUTE 3 TIMES PER DAY mupirocin 2 % topical ointment APPLY A SMALL AMOUNT TO THE AFFECTED AREA BY TOPICAL ROUTE 3 TIMES PER DAY No mupirocin 2 % topical ointment APPLY A SMALL AMOUNT TO THE AFFECTED AREA BY TOPICAL ROUTE 3 TIMES PER DAY [facility] Toujeo Max U-300 SoloStar 300 unit/mL [...] route in the morning for 90 days. [facility] FreeStyle Nikki 2 Sensor kit USE DIRECTED. FreeStyle Nikki 2 Sensor kit USE DIRECTED. No FreeStyle Nikki 2 Sensor kit USE DIRECTED. [facility] Amlodipine Besylate Amlodipine Besylate Yes Virgen Pollock [address] [facility] Spironolact one Spironolact one Yes Virgen Pollock [address] [facility] Jardiance Jardiance Yes Virgen [place] [address] [facility] Pantoprazol e Sodium Pantoprazol e Sodium Yes Virgen Byrde [address] [facility] Pravachol Pravachol Yes Virgen [place] [address] [facility] Aspirin 81 Aspirin 81 Yes Virgen Byrde [address] [facility] ProAir HFA ProAir HFA Yes Virgen Pollock [address] [facility] Trulicity Trulicity Yes Virgen Pollock Inject 0.[address] [facility] Ferrous Sulfate Ferrous Sulfate Yes Virgen [place] [address] [facility] Glucosamine Glucosamine Yes Virgen Pollock not defined [facility] Toujeo SoloStar Toujeo SoloStar Yes Virgen Pollock INJECT 68 UNITS UNDER THE SKIN DAILY [facility] Terazosin HCl Terazosin HCl Yes Virgen Pollock [address] [facility] MetFORMIN HCl ER MetFORMIN HCl ER Yes Virgen Pollock [address] [facility] BD Pen Needle Mini U/F BD Pen Needle Mini U/F Yes Virgen Pollock as directed [facility] Tamsulosin HCl Tamsulosin HCl Yes Virgen Phill [address] [facility] Coreg Coreg Yes Virgen [place] [address] [facility] Hydrochloro thiazide Hydrochloro thiazide Yes Virgensheri Pollock [address] the [address] [facility] Trelegy Ellipta Trelegy Ellipta Yes Virgen Phill [address] [facility] Jardiance 25 MG Jardiance 25 MG [...] COVID-19 Vaccine (Low Dose Booster) 2021-02-14 16:19:00 [facility] Moderna COVID-19 Vaccine (Low Dose Booster) Moderna COVID-19 Vaccine (Low Dose Booster) 2021-02-14 16:19:00 [facility] Moderna COVID-19 Vaccine (Low Dose Booster) Moderna COVID-19 Vaccine (Low Dose Booster) 2021-02-14 16:19:[address] [facility] Moderna COVID-19 Vaccine (Low Dose Booster) Moderna COVID-19 Vaccine (Low Dose Booster) 2021-02-14 16:19:[address] [facility] FluAD FluAD 2021-01-22 15:47:[address] [facility] FluAD FluAD 2021-01-22 15:47:[address] [facility] FluAD FluAD 2021-01-22 15:47:[address] [facility] FluAD FluAD 2021-01-22 15:47:[address] [facility] Pneumovax (PPSV23) Pneumovax (PPSV23) 2021-01-22 15:46:[address] [facility] Pneumovax (PPSV23) Pneumovax (PPSV23) 2021-01-22 15:46:[address] [facility] Pneumovax (PPSV23) Pneumovax (PPSV23) 2021-01-22 15:46:[address] [facility] Pneumovax (PPSV23) Pneumovax (PPSV23) 2021-01-22 15:46:[address] [facility] Moderna COVID-19 Vaccine Moderna COVID-19 Vaccine 2020-06-26 15:30:[address] [facility] Moderna COVID-19 Vaccine Moderna COVID-19 Vaccine 2020-06-26 15:30:[address] [facility] Moderna COVID-19 Vaccine Moderna COVID-19 Vaccine 2020-06-26 15:30:[address] [facility] Moderna COVID-19 Vaccine Moderna COVID-19 Vaccine 2020-06-26 15:30:[address] [facility] Moderna COVID-19 Vaccine Moderna COVID-19 Vaccine 2020-05-29 15:30:[address] [facility] Moderna COVID-19 Vaccine Moderna COVID-19 Vaccine 2020-05-29 15:30:00 Completed [facility] Moderna COVID-19 Vaccine Moderna COVID-19 Vaccine 2020-05-29 15:30:00 Completed Common [facility] Moderna COVID-19 Vaccine Moderna COVID-19 Vaccine 2020-05-29 15:30:00 Completed Common [facility] FluAD FluAD 2020-01-15 13:39:00 Completed Common [facility] Prevnar 13 (PCV13) Prevnar 13 (PCV13) 2020-01-15 13:39:[address] [facility] FluAD FluAD 2020-01-15 13:39:[address] [facility] Prevnar 13 (PCV13) Prevnar 13 (PCV13) 2020-01-15 13:39:[address] [facility] FluAD FluAD 2020-01-15 13:39:[address] [facility] Prevnar 13 (PCV13) Prevnar 13 (PCV13) 2020-01-15 13:39:00 Completed Common [facility] FluAD FluAD 2020-01-15 13:39:[address] [facility] Prevnar 13 (PCV13) Prevnar 13 (PCV13) 2020-01-15 13:39:00 Completed Common [facility] FluAD FluAD 2020-01-15 13:39:00 Completed Common [facility] Prevnar 13 (PCV13) Prevnar 13 (PCV13) 2020-01-15 13:39:00 Completed Common [facility] FluAD FluAD 2020-01-15 13:39:00 Completed Common [facility] Prevnar 13 (PCV13) Prevnar 13 (PCV13) 2020-01-15 13:39:00 Completed Common [facility] FluAD FluAD 2020-01-15 13:39:[address] [facility] Prevnar 13 (PCV13) Prevnar 13 (PCV13) 2020-01-15 13:39:[address] [facility] Flucelvax - multidose vial Flucelvax - multidose vial 2019-01-10 13:22:[address] [facility] Flucelvax - multidose vial Flucelvax - multidose vial 2019-01-10 13:22:[address] [facility] Flucelvax - multidose vial Flucelvax - multidose vial 2019-01-10 13:22:[address] [facility] Flucelvax - multidose vial Flucelvax - multidose vial 2019-01-10 13:22:[address] [facility] Flucelvax - multidose vial Flucelvax - multidose vial 2019-01-10 13:22:[address] [facility] Flucelvax - multidose vial Flucelvax - multidose vial 2019-01-10 13:22:[address] [facility] Flucelvax - multidose vial Flucelvax - multidose vial 2019-01-10 13:22:[address] [facility] Afluria Afluria 2018-01-27 13:10:[address] [facility] Adacel (Tdap) Adacel (Tdap) 2018-01-27 13:10:[address] [facility] Afluria Afluria 2018-01-27 13:10:[address] [facility] Adacel (Tdap) Adacel (Tdap) 2018-01-27 13:10:[address] [facility] Afluria Afluria 2018-01-27 13:10:[address] [facility] Adacel (Tdap) Adacel (Tdap) 2018-01-27 13:10:[address] [facility] Afluria Afluria 2018-01-27 13:10:[address] [facility] Adacel (Tdap) Adacel (Tdap) 2018-01-27 13:10:[address] [facility] Afluria Afluria 2018-01-27 13:10:00 Completed [facility] Adacel (Tdap) Adacel (Tdap) 2018-01-27 13:10:00 Completed [facility] Afluria [facility] 2018-01-27 13:10:00 Completed [facility] Adacel (Tdap) Adacel (Tdap) 2018-01-27 13:10:00 Completed [facility] 2018-01-27 13:10:00 Completed [facility] Adacel (Tdap) Adacel (Tdap) 2018-01-27 13:10:[address] [facility] influenza, unspecified formulation influenza, unspecified formulation Unknown Completed [facility] Tdap Tdap Unknown Completed [facility] Vital Signs Vital Name Observation Time Observation Value Comments S ource BMI (Body Mass Index) 2024-07-13 00:00:00 23.8 kg/m2 [facility] BP Diastolic 2024-07-13 00:00:00 68 mm[Hg] [facility] Body Weight 2024-07-13 00:00:00 2576 [oz_av] [facility] BP Systolic 2024-07-13 00:00:00 128 mm[Hg] [facility] Height 2024-07-13 00:00:00 69 [in_i] [facility] Height 2024-06-06 00:00:00 69 [in_i] [facility] BP Diastolic 2024-06-06 00:00:00 60 mm[Hg] [facility] BP Systolic 2024-06-06 00:00:00 139 mm[Hg] [facility] Body Weight 2024-06-06 00:00:00 2748.8 [oz_av] [facility] BMI (Body Mass Index) 2024-06-06 00:00:00 25.4 kg/m2 [facility] BMI (Body Mass Index) 2024-05-24 00:00:00 28.8 kg/m2 [facility] Height 2024-05-24 00:00:00 69 [in_i] [facility] Body Weight 2024-05-24 00:00:00 3120 [oz_av] [facility] BP Diastolic 2024-05-24 00:00:00 63 mm[Hg] [facility] BP Systolic 2024-05-24 00:00:00 143 mm[Hg] [facility] Height 2024-03-09 00:00:00 69 [in_i] [facility] BP Diastolic 2024-03-09 00:00:00 67 mm[Hg] [facility] BP Systolic 2024-03-09 00:00:00 140 mm[Hg] [facility] BMI (Body Mass Index) 2024-03-09 00:00:00 29.3 kg/m2 [facility] Body Weight 2024-03-09 00:00:00 3171.2 [oz_av] [facility] BP Diastolic 2023-12-07 00:00:00 65 mm[Hg] [facility] Height 2023-12-07 00:00:00 69 [in_i] [facility] BP Systolic 2023-12-07 00:00:00 130 mm[Hg] [facility] Body Weight 2023-12-07 00:00:00 3760 [oz_av] [facility] BMI (Body Mass Index) 2023-12-07 00:00:00 34.7 kg/m2 [facility] Body Weight 2023-10-20 00:00:00 3568 [oz_av] [facility] BP Systolic 2023-10-20 00:00:00 119 mm[Hg] [facility] BP Diastolic 2023-10-20 00:00:00 62 mm[Hg] [facility] BMI (Body Mass Index) 2023-10-20 00:00:00 32.9 kg/m2 [facility] Height 2023-10-20 00:00:00 69 [in_i] [facility] BMI (Body Mass Index) 2023-08-25 00:00:00 31.9 kg/m2 [facility] Body Weight 2023-08-25 00:00:00 3452.8 [oz_av] [facility] BP Systolic 2023-08-25 00:00:00 124 mm[Hg] [facility] Height 2023-08-25 00:00:00 69 [in_i] [facility] BP Diastolic 2023-08-25 00:00:00 67 mm[Hg] [facility] BMI (Body Mass Index) 2023-07-05 00:00:00 34.2 kg/m2 [facility] Body Weight 2023-07-05 00:00:00 3705.6 [oz_av] [facility] Height 2023-07-05 00:00:00 69 [in_i] [facility] BP Diastolic 2023-07-05 00:00:00 62 mm[Hg] [facility] BP Systolic 2023-07-05 00:00:00 117 mm[Hg] [facility] BP Systolic 2023-05-13 00:00:00 151 mm[Hg] [facility] BP Diastolic 2023-05-13 00:00:00 78 mm[Hg] [facility] BMI (Body Mass Index) 2023-05-13 00:00:00 35.8 kg/m2 [facility] Height 2023-05-13 00:00:00 69 [in_i] [facility] Body Weight 2023-05-13 00:00:00 3878.4 [oz_av] [facility] BP Systolic 2023-05-11 00:00:00 133 mm[Hg] [facility] BMI (Body Mass Index) 2023-05-11 00:00:00 34.8 kg/m2 [facility] Body Weight 2023-05-11 00:00:00 3769.6 [oz_av] [facility] Height 2023-05-11 00:00:00 69 [in_i] [facility] BP Diastolic 2023-05-11 00:00:00 76 mm[Hg] [facility] BP Diastolic 2023-03-16 00:00:00 66 mm[Hg] [facility] BP Systolic 2023-03-16 00:00:00 126 mm[Hg] [facility] Body Weight 2023-03-16 00:00:00 3872 [oz_av] [facility] BMI (Body Mass Index) 2023-03-16 00:00:00 35.7 kg/m2 [facility] Height 2023-03-16 00:00:00 69 [in_i] [facility] Body Weight 2023-03-08 00:00:00 3923.2 [oz_av] [facility] BP Diastolic 2023-03-08 00:00:00 72 mm[Hg] [facility] BMI (Body Mass Index) 2023-03-08 00:00:00 36.2 kg/m2 [facility] BP Systolic 2023-03-08 00:00:00 125 mm[Hg] [facility] Height 2023-03-08 00:00:00 69 [in_i] [facility] Height 2023-02-11 00:00:00 69 [in_i] [facility] BP Systolic 2023-02-11 00:00:00 140 mm[Hg] [facility] BP Diastolic 2023-02-11 00:00:00 79 mm[Hg] [facility] BMI (Body Mass Index) 2023-02-11 00:00:00 36.9 kg/m2 [facility] Body Weight 2023-02-11 00:00:00 3996.8 [oz_av] [facility] BP Systolic 2023-02-02 00:00:00 153 mm[Hg] [facility] Height 2023-02-02 00:00:00 69 [in_i] [facility] BMI (Body Mass Index) 2023-02-02 00:00:00 37.4 kg/m2 [facility] BP Diastolic 2023-02-02 00:00:00 83 mm[Hg] [facility] Body Weight 2023-02-02 00:00:00 4048 [oz_av] [facility] Body Weight 2023-01-28 00:00:00 4057.6 [oz_av] [facility] BP Diastolic 2023-01-28 00:00:00 84 mm[Hg] [facility] BP Systolic 2023-01-28 00:00:00 145 mm[Hg] [facility] height 2021-01-22 15:30:00 69 [in_i] Commo n [facility] weight 2021-01-22 15:30:00 257.1 [lb_av] Co [facility] temperature 2021-01-22 15:30:00 98.2 [degF] Com [facility] bmi 2021-01-22 15:30:00 37.96 kg/m2 Comm on [facility] oximetry 2021-01-22 15:30:00 94 % Commo n [facility] respiratory rate 2021-01-22 15:30:00 17 /min Common [facility] blood pressure systolic 2021-01-22 15:30:00 134 mm[Hg] Common [facility] blood pressure diastolic 2021-01-22 15:30:00 74 mm[Hg] Common [facility] height 2020-12-19 13:30:00 69 [in_i] Commo n [facility] weight 2020-12-19 13:30:00 255 [lb_av] Comm on [facility] temperature 2020-12-19 13:30:00 97.6 [degF] Com [facility] bmi 2020-12-19 13:30:00 37.65 kg/m2 Comm on [facility] oximetry 2020-12-19 13:30:00 99 % Commo n [facility] blood pressure systolic 2020-12-19 13:30:00 140 mm[Hg] Common [facility] blood pressure diastolic 2020-12-19 13:30:00 68 mm[Hg] [facility] height 2020-10-17 14:30:00 69 [in_i] Commo n [facility] weight 2020-10-17 14:30:00 257.9 [lb_av] Co mmon [facility] temperature 2020-10-17 14:30:00 98.1 [degF] Com mon [facility] bmi 2020-10-17 14:30:00 38.08 kg/m2 Comm on [facility] oximetry 2020-10-17 14:30:00 94 % Commo n [facility] respiratory rate 2020-10-17 14:30:00 17 /min [facility] blood pressure systolic 2020-10-17 14:30:00 138 mm[Hg] [facility] blood pressure diastolic 2020-10-17 14:30:00 77 mm[Hg] [facility] height 2020-07-31 13:30:00 69 [in_i] Commo n [facility] weight 2020-07-31 13:30:00 256.2 [lb_av] Co mmon [facility] temperature 2020-07-31 13:30:00 98.2 [degF] Com mon [facility] bmi 2020-07-31 13:30:00 37.83 kg/m2 Comm on [facility] oximetry 2020-07-31 13:30:00 96 % Commo n [facility] blood pressure systolic 2020-07-31 13:30:00 147 mm[Hg] [facility] blood pressure diastolic 2020-07-31 13:30:00 78 mm[Hg] [facility] height 2020-07-15 14:20:00 69 [in_i] Commo n [facility] weight 2020-07-15 14:20:00 253.5 [lb_av] Co mmon [facility] temperature 2020-07-15 14:20:00 97.9 [degF] Com [facility] bmi 2020-07-15 14:20:00 37.43 kg/m2 Comm on [facility] oximetry 2020-07-15 14:20:00 95 % Commo n [facility] respiratory rate 2020-07-15 14:20:00 18 /min Common [facility] blood pressure systolic 2020-07-15 14:20:00 135 mm[Hg] Common [facility] blood pressure diastolic 2020-07-15 14:20:00 76 mm[Hg] [facility] height 2020-06-13 10:00:00 69 [in_i] Commo n [facility] weight 2020-06-13 10:00:00 255.2 [lb_av] Co mmon [facility] temperature 2020-06-13 10:00:00 98.4 [degF] Com [facility] bmi 2020-06-13 10:00:00 37.68 kg/m2 Comm on [facility] oximetry 2020-06-13 10:00:00 94 % Commo n [facility] blood pressure systolic 2020-06-13 10:00:00 128 mm[Hg] Common [facility] blood pressure diastolic 2020-06-13 10:00:00 69 mm[Hg] [facility] Systolic blood pressure 2020-02-21 14:50:00 130 mm[Hg] [facility] Diastolic blood pressure 2020-02-21 14:50:00 84 mm[Hg] [facility] Heart rate 2020-02-21 14:50:00 87 /min [facility] Body weight 2020-02-21 14:50:00 116.348 kg [facility] BMI 2020-02-21 14:50:00 37.88 kg/m2 [facility] Oxygen saturation in Arterial blood by Pulse oximetry 2020-02-21 14:50:00 97 /min [facility] Systolic blood pressure 2020-02-21 14:50:00 130 mm[Hg] [facility] Diastolic blood pressure 2020-02-21 14:50:00 84 mm[Hg] [facility] Heart rate 2020-02-21 14:50:00 87 /[facility] weight 2020-02-21 14:50:00 116.348 kg [facility] BMI 2020-02-21 14:50:00 37.88 kg/m2 [facility] Oxygen saturation in Arterial blood by Pulse oximetry 2020-02-21 14:50:00 97 /min [facility] Procedures Procedure Date / Time Performed Performing Clinician Source electrocardiogram, routine ECG, 12 leads min 2024-07-13 00:00:00 [facility] US, liver 2024-07-13 00:00:00 [facility] US, thyroid 2024-05-24 00:00:00 [facility] XR, lumbosacral spine, 2 or 3 view 2024-03-09 00:00:00 [facility] Coronary Artery Bypass with Autogenous Graft, Three Grafts 2023-06-12 00:00:00 [facility] [id number] 2023-06-11 00:00:00 CHAAB.01 [facility] [id number] 2023-06-11 00:00:00 CHAAB.01 [facility] [id number] 2023-06-11 00:00:00 CHAAB.01 [facility] [id number] 2023-06-11 00:00:00 CHAAB.01 [facility] [id number] 2023-06-11 00:00:00 CHAAB.01 [facility] [id number] 2023-06-11 00:00:00 CHAAB.01 [facility] [id number] 2023-06-11 00:00:00 CHAAB.01 [facility] [id number] 2023-06-11 00:00:00 CHAAB.01 [facility] [id number] 2023-06-11 00:00:00 CHAAB.01 [facility] [id number] 2023-06-11 00:00:00 CHAAB.01 [facility] [id number] 2023-06-11 00:00:00 CHAAB.01 [facility] [id number] 2023-06-11 00:00:00 CHAAB.01 [facility] [id number] 2023-06-01 00:00:00 [facility] [id number] 2023-06-01 00:00:00 [facility] US, liver 2023-03-16 00:00:[address] [facility] [address], abdomen + pelvis, w/wo contrast 2023-03-08 00:00:00 [facility] CONSENT/REFUSAL FOR DIAGNOSIS AND TREATMENT 2020-02-21 14:26:32 Doctor Unassigned, [place] [facility] Append[facility] Encounters Start Date/Time End Date/Time Encounter Type Admission Type Attending Clinicians Care Facility Care Department Encounter ID Source 2023-05-05 15:27:00 Outpatient Portillo [facility] [id number] [facility] 2021-04-23 14:15:59 Outpatient Portillo, [facility] [id number] [facility] 2021-04-23 13:59:01 Outpatient Portillo [facility] [id number] [facility] 2021-04-23 12:21:45 Outpatient Portillo, [facility] [id number] [facility] 2021-04-23 11:45:21 Outpatient Portillo [facility] [id number] [facility] 2024-07-13 00:00:00 2024-07-13 00:00:00 Nemo Sierra APRN, MSN, [facility]: [address] [place] [address] , Ph. [id number] 2024-06-06 00:00:00 2024-06-06 00:00:00 Nemo Sierra APRN, MSN, [facility]: [address] [place] [address] , Ph. [id number] [facility] 2024-05-24 00:00:00 2024-05-24 00:00:00 Nemo Sierra APRN, MSN, [facility]: [address] [place] [address] , Ph. [facility] [id number] [facility] 2024-03-09 00:00:00 2024-03-09 00:00:00 Nemo Sierra APRN, MSN, [facility]: [address] [place] [address], [address] [address] , Ph. [id number] [facility] 2023-12-07 00:00:00 2023-12-07 00:00:00 Nemo Sierra APRN, MSN, [facility]: [address] [place] [address], [address] [place] [phone] , Ph. [facility] [address] [facility] 2023-10-20 00:00:00 2023-10-20 00:00:00 Nemo Sierra APRN, MSN, [facility]: [address] [place] [address], [address] [place] [phone] , Ph. [facility] [id number] [facility] 2023-08-25 00:00:00 2023-08-25 00:00:00 Nemo Sierra APRN, MSN, [facility]: [address] [place] [address], [address] [place] [phone] , Ph. [id number] [facility] 2023-07-05 00:00:00 2023-07-05 00:00:00 eNmo Sierra APRN, MSN, [facility]: [address] [place] [address], [address] [address] , Ph. L_Pena [facility] [id number] [facility] 2023-06-25 00:00:00 2023-06-25 00:00:00 Outpatient L_Pena [facility] [id number] [facility] 2023-05-31 11:59:00 2023-06-22 14:57:00 Inpatient Bladimir Campbell [facility] [id number] [facility] 2023-06-01 00:00:00 2023-06-01 00:00:00 Outpatient L_Pena [facility] [id number] [facility] 2023-05-13 00:00:00 2023-05-13 00:00:00 Nemo Sierra APRN, MSN, [facility]: [address] [place] [address], [address] [place] [phone] , Ph. [facility] [id number] [facility] 2023-05-11 00:00:00 2023-05-11 00:00:00 Nemo Sierra APRN, MSN, [facility]: [address] [place] [address], [address] [place] [phone] , Ph. [facility] [id number] [facility] 2023-04-22 10:00:00 2023-04-22 10:00:00 Outpatient [facility] [id number] [facility] 2023-04-03 00:00:00 2023-04-03 00:00:00 Outpatient L_Pena [facility] [id number] [facility] 2023-03-16 00:00:00 2023-03-16 00:00:00 Outpatient L_Pena [facility] [id number] [facility] 2023-03-16 00:00:00 2023-03-16 00:00:00 Nemo Sierra APRN, MSN, [facility]: [address] [place] [address], [address] [place] [phone] , Ph. [facility] [id number] [facility] 2023-03-08 00:00:00 2023-03-08 00:00:00 Outpatient L_Pena [facility] [id number] [facility] 2023-03-08 00:00:00 2023-03-08 00:00:00 Nemo Sierra APRN, MSN, [facility]: [address] [place] [address], [address] [place] [phone] , Ph. [facility] [id number] [facility] 2023-03-06 21:16:00 2023-03-07 16:08:00 Inpatient [facility] [id number] [facility] 2023-02-11 00:00:00 2023-02-11 00:00:00 Outpatient L_Pena [facility] [id number] [facility] 2023-02-11 00:00:00 2023-02-11 00:00:00 Nemo Sierra APRN, MSN, [facility]: [address] [place] [address], [address] [address] , Ph. [facility] [id number] [facility] 2023-02-02 00:00:00 2023-02-02 00:00:00 Nemo Sierra APRN, MSN, [facility]: [address] [place] [address], [address] [address] , [facility]. [facility] [id number] [facility] 2023-01-28 00:00:00 2023-01-28 00:00:00 Outpatient L_Pena [facility] [id number] [facility] 2023-01-28 00:00:00 2023-01-28 00:00:00 Outpatient L_Pena [facility] [id number] [facility] 2023-01-28 00:00:00 2023-01-28 00:00:00 Nemo Sierra APRN, MSN, [facility]: [address] [place] [address], [address] [address] , Ph. [facility] [id number] [facility] 2023-01-27 00:00:00 2023-01-27 00:00:00 Outpatient CHRETIEN_F [facility] [id number] [facility] 2021-06-11 00:00:00 2021-06-11 00:00:00 (TEL) STLMLC STLMLC [id number] [facility] 2021-03-24 00:00:00 2021-03-24 00:00:00 (TEL) STLMLC STLMLC [id number] [facility] 2021-03-18 00:00:00 2021-03-18 00:00:00 Patient Secure Msg Doctor Unassigned, [place] [facility] [id number] [facility] 2021-03-11 00:00:00 2021-03-11 00:00:00 (TEL) STLMLC STLMLC [id number] [facility] 2021-03-06 00:00:00 2021-03-06 00:00:00 (TEL) STLMLC STLMLC [id number] [facility] 2021-02-14 00:00:00 2021-02-14 00:00:00 (COVID Inj) COVID Injection STLMLC STLMLC [id number] [facility] 2021-01-22 00:00:00 2021-01-22 00:00:00 OFFICE VISIT ESTAB PT LEVEL [id number] [facility] 2021-01-17 00:00:00 2021-01-17 00:00:00 (WEB) STLMLC STLMLC [id number] [facility] 2021-01-15 00:00:00 2021-01-15 00:00:00 (TEL) STLMLC STLMLC [id number] [facility] 2021-01-06 00:00:00 2021-01-06 00:00:00 (WEB) STLMLC STLMLC [id number] [facility] 2020-12-19 00:00:00 2020-12-19 00:00:00 OFFICE VISIT ESTAB PT LEVEL [id number] [facility] 2020-11-26 00:00:00 2020-11-26 00:00:00 (TEL) STLMLC STLMLC [id number] [facility] 2020-11-07 00:00:00 2020-11-07 00:00:00 (WEB) STLMLC STLMLC [id number] [facility] 2020-10-25 00:00:00 2020-10-25 00:00:00 (WEB) STLMLC STLMLC [id number] [facility] 2020-10-17 00:00:00 2020-10-17 00:00:00 PREV VISIT EST AGE 40-64 [address] [id number] [facility] 2020-07-31 00:00:00 2020-07-31 00:00:00 (PROC) Procedure STLMLC STLMLC [id number] [facility] 2020-07-16 00:00:00 2020-07-16 00:00:00 (WEB) STLMLC STLMLC [id number] [facility] 2020-07-15 00:00:00 2020-07-15 00:00:00 OFFICE VISIT ESTAB PT LEVEL [id number] [facility] 2020-06-13 00:00:00 2020-06-13 00:00:00 OFFICE VISIT ESTAB PT LEVEL [id number] [facility] 2020-06-03 00:00:00 2020-06-03 00:00:00 Patient Outreach Neil Frias [facility] [id number] [facility] 2020-05-09 00:00:00 2020-05-09 00:00:00 Outpatient [facility] [id number] [facility] 2020-04-29 00:00:00 2020-04-29 00:00:00 Outpatient STLMLC ST[facility]MLC [id number] [facility] 2020-04-26 00:00:00 2020-04-26 00:00:00 Outpatient [facility]LMLC STLMLC [id number] [facility] 2020-04-23 00:00:00 2020-04-23 00:00:00 Outpatient [facility]LMLC STLMLC [id number] [facility] 2020-04-22 15:00:00 2020-04-22 15:00:00 Outpatient TK RECINOS [facility] [id number] [facility] 2020-04-19 00:00:00 2020-04-19 00:00:00 Outpatient [facility]LMLC STLMLC [id number] [facility] 2020-04-18 00:00:00 2020-04-18 00:00:00 Outpatient [facility]LMLC [facility]LML[facility] [id number] [facility] 2020-04-16 00:00:00 2020-04-16 00:00:00 Outpatient [facility]LMLC STLMLC [id number] [facility] 2020-02-21 08:27:35 2020-02-21 08:59:59 [facility] [id number] 2020-02-21 08:27:35 2020-02-21 08:59:59 [facility] [id number] [facility] 2020-02-21 08:40:00 2020-02-21 08:40:00 Outpatient R MONAL[facility] [id number] [facility] 2020-02-21 00:00:00 2020-02-21 00:00:00 Orders Only Doctor Unassigned, [place] [facility] [id number] [facility] 2020-02-19 00:00:00 2020-02-19 00:00:00 Outpatient STLMLC STLMLC [id number] [facility] 2020-02-19 00:00:00 2020-02-19 00:00:00 Outpatient [facility]LMLC [facility]LMLC [id number] [facility] 2020-02-15 00:00:00 2020-02-15 00:00:00 Outpatient [facility]LMLC STLMLC [id number] [facility] 2020-01-23 00:00:00 2020-01-23 00:00:00 Outpatient STLMLC STLMLC [id number] [facility] 2020-01-15 00:00:00 2020-01-15 00:00:00 Outpatient STLMLC STLMLC [id number] [facility] 2019-12-26 00:00:00 2019-12-26 00:00:00 Outpatient STLMLC STLMLC [id number] [facility] 2019-12-26 00:00:00 2019-12-26 00:00:00 Outpatient STLML[facility] [id number] [facility] 2019-12-15 00:00:00 2019-12-15 00:00:00 Outpatient [facility] [id number] [facility] 2019-12-08 13:30:00 2019-12-08 13:30:00 [facility] [id number] [facility] Results Test Description Test Time Test Comments Results Result Co mments Source - XR CHEST 1 [id number] 11:33:00 [facility] : 1955 Sex: M FAX: Bladimir Morse [phone] [place]: St: ADM FAX: Johnna Monaco Phy [phone] FAX: Talat Salmeron MD [phone] Name: MINDY CARTER [facility] [place] : 1955 Age/S: 67/M [address] [place] [address] Unit #: [id number] Loc: [facility] [place] [address] Phys: Johnna Pablo Physic Acct: [id number] Dis Date: Status: ADM IN PHONE #: [phone] Exam Date: 06/22/2023 [facility] FAX #: [phone] Reason: S/P CABG, R/O EFFUSION EXAMS: CPT CODE: [id number] XR CHEST 1 V 03146 EXAM: Chest x-ray, 1 view Dic tation location: E5 COMPARISON: Chest x-ray on 06/21/2023 [...] of these, and is similar or slightly improved.Interstitial or peribronchial opacity has improved, suggestive of improving edema. 3. At least small bilateral pleural effusions are noted, similar or slightly improved. at 1133 Reported and signed by: Dickson Petersen M.D. CC: Bladimir Morse DO; Johnna Pablo; Talat Lord MD Technologist: RT Eusebio(Penelope) Trnscrd Date/Time/By: 06/22/2023 (1133) : By: [email or web address] Orig Print D/T: S: 06/22/2023 (5474) PAGE 1 Signed ReportGLUCOSE BEDSIDE 2023-06-22 07:42:00* Test Item Value Reference Range Interpretation Comme nts GLUCOSE BEDSIDE (test code = GLUBED) 165 MG/DL 70-110 H Performed by cer raul dishing machine operator at [facility] BASIC METABOLIC [id number] 06:58:00* Test Item Value Reference Range Interpretation [...] code = CA) 7.6 mg/dL 8.0-10.5 L [id number] 06:58:00* Test Item Value Reference Range Interpretation Comme nts MAGNESIUM (test code = MAG) 2.36 mg/dL 1.6-2.6 N CBC W/AUTO [id number] 04:15:00* Test Item Value Reference Range Interpretation [...] NRBC#) 0.00 x10 3/uL 0.0-0.1 N GLUCOSE [id number] 20:34:00* Test Item Value Reference Range Interpretation Comme nts GLUCOSE BEDSIDE (test code = GLUBED) 222 MG/DL 70-110 H Performed by cer tified dishing machine operator at [facility] GLUCOSE [id number] 17:14:00* Test Item Value Reference Range Interpretation Comme nts GLUCOSE BEDSIDE (test code = GLUBED) 149 MG/DL 70-110 H Performed by [facility] avera tified dishing machine operator at [facility] GLUCOSE [id number] 12:15:00* Test Item Value Reference Range Interpretation Comme nts GLUCOSE BEDSIDE (test code = GLUBED) 215 MG/DL 70-110 H Performed by [facility] avera tified dishing machine operator at [facility] - XR CHEST 1 [id number] 10:12:00 [facility] 1955 Sex: M FAX: Nathaniel Shirley MD [phone] [place]: St: ADM FAX: Kumar Salas [phone] FAX: Talat Salmeron MD [phone] Name: MINDY CARTER [facility] : 1955 Age/S: 67/M [address] [place] [address] Unit #: [id number] Loc: [address] [place] [address] Phys: Nathaniel Martel MD Acct: [id number] Dis Date: Status: ADM IN PHONE #: [phone] Exam Date: 06/21/2023 0807 FAX #: [phone] Reason: S/P CABG, R/O EFFUSION EXAMS: CPT CODE: [id number] XR CHEST 1 V 14947 Dictation location: C4. CHEST,FRONTAL VIEW HISTORY: S/P CABG, R/O EFFUSION FINDINGS: Since 06/20/23, cardiomegaly is noted with pulmonary edema and bilateral pleural effusions. Basilar opacities are unchanged. Sternotomy wires. IMPRESSION: No significant change in the cardiomegaly, pulmonary edema and bilateral pleural effusions. at 1012 Reported and signed by: Elio Pimentel M.D. CC: Nathaniel Martel MD; Kumar Garcia MD; Talat Lord MD Technologist: Prateek Archuleta RT(R) Trnscrd Date/Time/By: 06/21/2023 (1012) : By: [email or web address] Orig PrintD/T: S: 06/21/2023 (8086) PAGE 1 Signed ReportGLUCOSE [id number] 07:55:00* Test Item Value Reference Range Interpretation Comme nts GLUCOSE BEDSIDE (test code = GLUBED) 145 MG/DL 70-110 H Performed by cer tified dishing machine operator at [facility] BASIC METABOLIC [id number] 05:54:00* Test Item Value Reference Range Interpretation [...] code = CA) 7.6 mg/dL 8.0-10.5 L [id number] 05:54:00* Test Item Value Reference Range Interpretation Comme nts MAGNESIUM (test code = MAG) 2.51 mg/dL 1.6-2.6 N CBC W/AUTO [id number] 05:21:00* Test Item Value Reference Range Interpretation [...] NRBC#) 0.00 x10 3/uL 0.0-0.1 N GLUCOSE [id number] 19:52:00* Test Item Value Reference Range Interpretation Comme nts GLUCOSE BEDSIDE (test code = GLUBED) 208 MG/DL 70-110 H Performed by cer tified dishing machine operator at [facility] GLUCOSE [id number] 17:46:00* Test Item Value Reference Range Interpretation Comme nts GLUCOSE BEDSIDE (test code = GLUBED) 198 MG/DL 70-110 H Performed by [facility] avera tified dishing machine operator at [facility] GLUCOSE [id number] 13:38:00* Test Item Value Reference Range Interpretation Comme nts GLUCOSE BEDSIDE (test code = GLUBED) 218 MG/DL 70-110 H Performed by [facility] avera tified dishing machine operator at [facility] - XR CHEST 1 [id number] 08:37:00 [facility] : 1955 Sex: M FAX: Nathaniel Shirley MD [phone] [place]: St: [facility] FAX: Kumar Salas [phone] FAX: Talat Salmeron MD [phone] Name: MINDY CARTER [facility] : 1955 Age/S: 67/M [address] [place] [address] Unit #: [id number] Loc: [address] [place] [address] Phys: Nathaniel Martel MD Acct: [id number] Date: Status: ADM IN PHONE #: [phone] Exam Date: 06/20/2023 0744 FAX #: [phone] Reason: R/O PLEURAL EFFUSION EXAMS: CPT CODE: [id number] XR CHEST 1 V 66658 CHEST 1 VIEW CLINICAL INFORMATION: R/O PLEURAL [...] CC: Nathaniel Martel MD; Kumar Garcia MD; Brian Lord MD Technologist: Carli Baker, RT(R); Rylee Muller RT(R) Trnscrd Date/Time/By: 06/20/2023 (0837) : By: [email or web address] Orig Print D/T: S: 06/20/2023 (3918) PAGE 1 Signed ReportBASIC METABOLIC [id number] 04:13:00* Test Item Value Reference Range Interpretation [...] code = CA) 8.0 mg/dL 8.0-10.5 N [id number] 04:13:00* Test Item Value Reference Range Interpretation Comme nts MAGNESIUM (test code = MAG) 2.42 mg/dL 1.6-2.6 N CBC W/AUTO [id number] 03:55:00* Test Item Value Reference Range Interpretation [...] NRBC#) 0.00 x10 3/uL 0.0-0.1 N GLUCOSE [id number] 20:56:00* Test Item Value Reference Range Interpretation Comme nts GLUCOSE BEDSIDE (test code = GLUBED) 251 MG/DL 70-110 H Performed by cer tified dishing machine operator at [facility] GLUCOSE [id number] 17:46:00* Test Item Value Reference Range Interpretation Comme nts GLUCOSE BEDSIDE (test code = GLUBED) 132 MG/DL 70-110 H Performed by cer tified dishing machine operator at [facility] GLUCOSE [id number] 12:47:00* Test Item Value Reference Range Interpretation Comme nts GLUCOSE BEDSIDE (test code = GLUBED) 160 MG/DL 70-110 H Performed by cer tified dishing machine operator at [facility] - XR CHEST 1 [id number] 09:19:00 [facility] : 1955 Sex: M FAX: Nathaniel Shirley MD [phone] [place]: St: ADM FAX: Talat Salmeron MD [phone] ------- Name: MINDY CARTER [facility] : 1955 Age/S: 67/M [address] [place] [address] Unit #: [id number] Loc: [facility] [place] [address] Phys: Nathaniel Martel MD Acct: [id number] Dis Date: Status: ADM IN PHONE #: [phone] Exam Date: 06/19/202343 FAX #: [phone] Reason: R/O PLEURAL EFFUSION EXAMS: CPT CODE: [id number] XR CHEST 1 V 85853 CHEST 1 VIEW CLINICAL INFORMATION: R/O PLEURAL [...] By: [email or web address] Orig Print D/T: S: 06/19/2023 (6765) PAGE 1 Signed ReportGLUCOSE [id number] 08:35:00* Test Item Value Reference Range Interpretation Comme nts GLUCOSE BEDSIDE (test code = GLUBED) 184 MG/DL 70-110 H Performed by cer tified dishing machine operator at [facility] CBC W/AUTO [id number] 07:24:00* Test Item Value Reference Range Interpretation [...] (test c ode = MDIFF) YES WBC [id number] 07:24:00* Test Item Value Reference Range Interpretation [...] code = PLTMORPH) LARGE PLATELETS BASIC METABOLIC [id number] 06:44:00* Test Item Value Reference Range Interpretation [...] code = CA) 8.1 mg/dL 8.0-10.5 N [id number] 06:44:00* Test Item Value Reference Range Interpretation Comme nts MAGNESIUM (test code = MAG) 2.44 mg/dL 1.6-2.6 N GLUCOSE [id number] 19:53:00* Test Item Value Reference Range Interpretation Comme nts GLUCOSE BEDSIDE (test code = GLUBED) 225 MG/DL 70-110 H Performed by cer tified dishing machine operator at [facility] GLUCOSE [id number] 17:17:00* Test Item Value Reference Range Interpretation Comme nts GLUCOSE BEDSIDE (test code = GLUBED) 239 MG/DL 70-110 H Performed by cer tified dishing machine operator at [facility] GLUCOSE [id number] 11:39:00* Test Item Value Reference Range Interpretation Comme nts GLUCOSE BEDSIDE (test code = GLUBED) 249 MG/DL 70-110 H Performed by cer tified dishing machine operator at [facility] GLUCOSE [id number] 07:49:00* Test Item Value Reference Range Interpretation Comme nts GLUCOSE BEDSIDE (test code = GLUBED) 244 MG/DL 70-110 H Performed by cer raul dishing machine operator at [facility] BASIC METABOLIC [id number] 06:31:00* Test Item Value Reference Range Interpretation [...] CA) 7.9 mg/dL 8.0-10.5 L HEPATIC FUNCTION [id number] 06:31:00* Test Item Value Reference Range Interpretation [...] (test cod e = BILIND) 0.40 MG/DL [id number] 06:31:00* Test Item Value Reference Range Interpretation Comme nts MAGNESIUM (test code = MAG) 2.46 mg/dL 1.6-2.6 N CBC W/AUTO [id number] 05:41:00* Test Item Value Reference Range Interpretation [...] NRBC#) 0.00 x10 3/uL 0.0-0.1 N GLUCOSE [id number] 20:12:00* Test Item Value Reference Range Interpretation Comme nts GLUCOSE BEDSIDE (test code = GLUBED) 219 MG/DL 70-110 H Performed by cer tified dishing machine operator at [facility] GLUCOSE [id number] 17:43:00* Test Item Value Reference Range Interpretation Comme nts GLUCOSE BEDSIDE (test code = GLUBED) 230 MG/DL 70-110 H Performed by cer tified dishing machine operator at [facility] - DUP VEIN [id number] 15:08:00 [facility] : 1955 Sex: M Name: MINDY CARTER [facility] : 1955 Age/S: 67 / M [address] [place], [place] [address]vd Unit #: [id number] [place]: [place] [address] Phys: Johnna Pablo Acct: [id number] Dis Date: Status: ADM IN PHONE #: [phone] Exam Date: 06/17/2023 1454 FAX #: [phone] Reason: R/O DVT EXAMS: CPT CODE: [id number] DUP VEIN BETH [address] HISTORY: leg swelling Location Code: B2 COMMENT: [...] Technologist: Kirsty Banegas RDMS(AB) Trnscb Date/Time: 06/17/2023 (150) [email or web address] Orig Print D/T: S: 06/17/2023 (6520) Probe: PAGE 1 Signed ReportGLUCOSE [id number] 12:15:00* Test Item Value Reference Range Interpretation Comme nts GLUCOSE BEDSIDE (test code = GLUBED) 305 MG/DL 70-110 H Performed by linda marcus at [facility] - XR CHEST 1 [id number] 08:25:00 [facility] : 1955 Sex: M FAX: Nathaniel Shirley MD [phone] [place]: St: ADM FAX: Talat Salmeron MD [phone] ------- Name: MINDY CARTER [facility] : 1955 Age/S: 67/M [address] [place] [address] Blvd Unit #: [id number] Loc: G.[address] [place] [address] Phys: Nathaniel Martel MD Acct: [id number] Dis Date: Status: ADM IN PHONE #: [phone] Exam Date: 06/17/2023624 FAX #: [phone] Reason: Cardiac Surgery Post Op EXAMS: CPT CODE: [id number] XR CHEST 1 V 69884 STUDY: Chest radiograph HISTORY: Postop COMPARISON: 06/16/2023 TECHNIQUE: Frontal view of the chest. LOCATION: H19 FINDINGS: Poststernotomy changes are again noted. RightIJ vein catheter has been removed. The cardiac silhouette is stable in size. Pulmonary vascular maia estion and bibasilar atelectasis appear similar. Small pleural effusions are unchanged in size. There is no discernible pneumothorax. IMPRESSION: No significant interval change. at 0825 Reported and signed by: Orlando Baez M.D. CC: Nathaniel Martel MD; Talat Lord MD Technologist: Aris Bergeron RT(R) Trnscrd Date/Time/By: 06/17/2023 (29) : By: LandyRH16 [facility] Print D/T: S: 06/17/2023 (6280) PAGE 1 Signed ReportGLUCOSE [id number] 08:02:00* Test Item Value Reference Range Interpretation Comme nts GLUCOSE BEDSIDE (test code = GLUBED) 127 MG/DL 70-110 H Performed by linda carter dishing machine operator at [facility] GLUCOSE [id number] 07:05:00* Test Item Value Reference Range Interpretation Comme nts GLUCOSE BEDSIDE (test code = GLUBED) 131 MG/DL 70-110 H Performed by linda carter dishing machine operator at [facility] POC ARTERIAL BLOOD [id number] 04:34:00* Test Item Value Reference Range Interpretation Comme nts POC ARTERIAL BLOOD GAS PH (t est code = POCPHA) 7.450 7.35-7.45 N POC ARTERIAL BLOOD GAS PCO2 (test code = YSUAFA8C) 39.6 mmHg 35.0-45 N POC TCO2 ARTERIAL (test code = POCTCO2) 28.9 POC ARTERIAL BLOOD GAS PO2 ( test code = QSNPP2P) 73.0 mmHg 80-100.0 L POC HCO3 ARTERIAL (test code = JEOSQS4T) 27.6 MMOL/L 22.0-26.0 H POC BASE EXCESS (test code = POCBEA) 3.6 MMOL/L -4.0-4.0 N POC O2 SATURATION (test code = POCO2S) 95.4 % 90-100 N FIO2 (test code = FIO2A) 32.0 % PaO2/FiO2 (test code = MBH3WDI7) 228.10 mm/Hg ABG DELIVERY (test code = DELVIN) Cannula ABG TEMPERATURE (test code = TEMPA) 98 F ABG SITE (test code = SITEA) R Brach MABEL'S TEST (test code = ALLENS) Positive HEPATIC FUNCTION [id number] 04:17:00* Test Item Value Reference Range Interpretation [...] ALKP) 190 IUnit/L 20-125 H ADD-ONBASIC METABOLIC [id number] 03:51:00* Test Item Value Reference Range Interpretation [...] code = CA) 8.0 mg/dL 8.0-10.5 N [id number] 03:51:00* Test Item Value Reference Range Interpretation Comme nts MAGNESIUM (test code = MAG) 2.64 mg/dL 1.6-2.6 H CBC W/AUTO [id number] 03:36:00* Test Item Value Reference Range Interpretation [...] NRBC#) 0.04 x10 3/uL 0.0-0.1 N GLUCOSE [id number] 03:33:00* Test Item Value Reference Range Interpretation Comme nts GLUCOSE BEDSIDE (test code = GLUBED) 258 MG/DL 70-110 H Performed by cer raul dishing machine operator at [facility] GLUCOSE [id number] 01:40:00* Test Item Value Reference Range Interpretation Comme nts GLUCOSE BEDSIDE (test code = GLUBED) 287 MG/DL 70-110 H Performed by cer tified dishing machine operator at [facility] [id number] 22:48:00* Test Item Value Reference Range Interpretation Comme nts MAGNESIUM (test code = MAG) 2.61 mg/dL 1.6-2.6 H CALCIUM [id number] 22:48:00* Test Item Value Reference Range Interpretation Comme nts CALCIUM IONIZED (test code = CARLOS) 1.01 MMOL/L 1.09-1.30 L GLUCOSE [id number] 22:23:00* Test Item Value Reference Range Interpretation Comme nts GLUCOSE BEDSIDE (test code = GLUBED) 275 MG/DL 70-110 H Performed by cer tified dishing machine operator at [facility] BASIC METABOLIC [id number] 21:38:00* Test Item Value Reference Range Interpretation [...] = CA) 8.2 mg/dL 8.0-10.5 N GLUCOSE [id number] 21:08:00* Test Item Value Reference Range Interpretation Comme nts GLUCOSE BEDSIDE (test code = GLUBED) 302 MG/DL 70-110 H Performed by cer tified dishing machine operator at [facility] GLUCOSE [id number] 18:47:00* Test Item Value Reference Range Interpretation Comme nts GLUCOSE BEDSIDE (test code = GLUBED) 250 MG/DL 70-110 H Performed by cer tified dishing machine operator at [facility] BASIC METABOLIC [id number] 16:32:00* Test Item Value Reference Range Interpretation [...] code = CA) 8.6 mg/dL 8.0-10.5 N [id number] 16:32:00* Test Item Value Reference Range Interpretation Comme nts MAGNESIUM (test code = MAG) 2.38 mg/dL 1.6-2.6 N CALCIUM [id number] 16:32:00* Test Item Value Reference Range Interpretation Comme nts CALCIUM IONIZED (test code = CARLOS) 1.09 MMOL/L 1.09-1.30 N GLUCOSE [id number] 14:26:00* Test Item Value Reference Range Interpretation Comme nts GLUCOSE BEDSIDE (test code = GLUBED) 226 MG/DL 70-110 H Performed by cer tified dishing machine operator at [facility] GLUCOSE [id number] 12:30:00* Test Item Value Reference Range Interpretation Comme nts GLUCOSE BEDSIDE (test code = GLUBED) 182 MG/DL 70-110 H Performed by cer tified dishing machine operator at [facility] BASIC METABOLIC [id number] 10:13:00* Test Item Value Reference Range Interpretation [...] code = CA) 8.6 mg/dL 8.0-10.5 N [id number] 10:13:00* Test Item Value Reference Range Interpretation Comme [facility] MAGNESIUM (test code = MAG) 2.45 mg/dL 1.6-2.6 N CALCIUM [id number] 10:13:00* Test Item Value Reference Range Interpretation Comme [facility] CALCIUM IONIZED (test code = CARLOS) 1.14 MMOL/L 1.09-1.30 N - XR CHEST 1 [id number] 09:15:00 [facility] : 1955 Sex: M FAX: Kimmie Bacon MD [phone] [place]: St: ADM FAX: Nathaniel Shirley MD [phone] FAX: Eleonora Mai MD [phone] Name: MINDY CARTER [facility] : 1955 Age/S: 67/M [address] [place] [address] Unit #: [id number] Loc: .[address] [place] [address] Phys: Nathaniel Martel MD Acct: [id number] Dis Date: Status: ADM IN PHONE #: [phone] Exam Date: 06/16/2023 0608 FAX #: [phone] Reason: Cardiac Surgery Post Op EXAMS: CPT CODE: [id number] XR CHEST 1 V 06020 EXAM: - XR CHEST 1 V CLINICAL HISTORY: Cardiac Surgery Post Op TECHNIQUE: Single frontal view. COMPARISON: Chest radiograph from 06/15/2023, multiple priors LOCATION: C4 FINDINGS: Devices external to the patient are seen projecting overthe thorax. Right neck central venous catheter terminating in the mid SVC. The trachea appears normal. The cardiac silhouette is enlarged and obscured by bilateral pulmonary opacities. Bilateral pulmonary opacities and small pleural effusions. There is a left retrocardiac consolidation. Small left apical pneumothorax. Sternotomy wires. No acute osseous abnormality. IMPRESSION: Cardiomegaly with sm all pleural effusions and left lower lobe consolidation, grossly unchanged from prior. Small left apical pneumothorax. at 0915 Reported and signed by: Desi Fry M.D. CC: Kimmie Bacon MD; Nathaniel Martel MD; Eleonora Mai MD Technologist: RT Zaid(R) Trnscrd Date/Time/By: 06/16/2023 (914) : By: LandyJJY Orig Print D/T: S: 06/16/2023 (917) PAGE 1 Signed ReportGLUCOSE [id number] 08:46:00* Test Item Value Reference Range Interpretation Comme [facility] GLUCOSE BEDSIDE (test code = GLUBED) 171 MG/DL 70-110 H Performed by [facility] avera [employer] dishing machine operator at [facility] GLUCOSE [id number] 06:15:00* Test Item Value Reference Range Interpretation Comme nts GLUCOSE BEDSIDE (test code = GLUBED) 137 MG/DL 70-110 H Performed by [facility] avera [employer] dishing machine operator at [facility] GLUCOSE [id number] 04:18:00* Test Item Value Reference Range Interpretation Comme [facility] GLUCOSE BEDSIDE (test code = GLUBED) 97 MG/DL 70-110 N Performed by [employer] dishing machine operator at [facility] POC ARTERIAL BLOOD [id number] 04:13:00* Test Item Value Reference Range Interpretation Comme nts POC ARTERIAL BLOOD GAS PH (t est code = POCPHA) 7.412 7.35-7.45 N POC ARTERIAL BLOOD GAS PCO2 (test code = WWEDUU5D) 39.5 mmHg 35.0-45 N POC TCO2 ARTERIAL (test code = POCTCO2) 26.3 POC ARTERIAL BLOOD GAS PO2 ( test code = SKZNV6C) 95.1 mmHg 80-100.0 N POC HCO3 ARTERIAL (test code = QLHXCA0F) 25.1 MMOL/L 22.0-26.0 N POC BASE EXCESS (test code = POCBEA) 0.5 MMOL/L -4.0-4.0 N POC O2 SATURATION (test code = POCO2S) 97.5 % 90-100 N ABG DELIVERY (test code = DELVIN) HFNC ABG SITE (test code = SITEA) Art Line MABEL'S TEST (test code = ALLENS) N/A BASIC METABOLIC [id number] 04:13:00* Test Item Value Reference Range Interpretation [...] = POCGLU) 93 MG/DL 70-110 N HEMOGLOBIN [id number] 04:13:00* Test Item Value Reference Range Interpretation Comme nts HEMOGLOBIN ABG (test code = HGB/ABG) 12.7 G/DL 12.5-16.9 N [id number] 04:13:00* Test Item Value Reference Range Interpretation Comme nts HEMATOCRIT (test code = HCT/ABG) 37 % 37.5-50.7 L POC LACTIC [id number] 04:13:00* Test Item Value Reference Range Interpretation Comme nts POC LACTIC ACID (test code = POCLAC) 0.6 mmol/l 0.9-1.7 L BASIC METABOLIC [id number] 04:06:00* Test Item Value Reference Range Interpretation [...] CA) 8.6 mg/dL 8.0-10.5 N HEPATIC FUNCTION [id number] 04:06:00* Test Item Value Reference Range Interpretation [...] code = ALKP) 134 IUnit/L 20-125 H [id number] 04:06:00* Test Item Value Reference Range Interpretation Comme nts MAGNESIUM (test code = MAG) 2.53 mg/dL 1.6-2.6 N CBC W/AUTO [id number] 03:46:00* Test Item Value Reference Range Interpretation [...] NRBC#) 0.02 x10 3/uL 0.0-0.1 N GLUCOSE [id number] 01:09:00* Test Item Value Reference Range Interpretation Comme nts GLUCOSE BEDSIDE (test code = GLUBED) 116 MG/DL 70-110 H Performed by cer tified dishing machine operator at [facility] GLUCOSE [id number] 23:03:00* Test Item Value Reference Range Interpretation Comme nts GLUCOSE BEDSIDE (test code = GLUBED) 182 MG/DL 70-110 H Performed by cer tified dishing machine operator at [facility] BASIC METABOLIC [id number] 21:36:00* Test Item Value Reference Range Interpretation [...] (test code = CA) 8.7 mg/dL 8.0-10.5 [id number] 21:36:00* Test Item Value Reference Range Interpretation Comme nts MAGNESIUM (test code = MAG) 2.63 mg/dL 1.6-2.6 H CALCIUM [id number] 21:36:00* Test Item Value Reference Range Interpretation Comme nts CALCIUM IONIZED (test code = CARLOS) 1.16 MMOL/L 1.09-1.30 N GLUCOSE [id number] 21:17:00* Test Item Value Reference Range Interpretation Comme nts GLUCOSE BEDSIDE (test code = GLUBED) 216 MG/DL 70-110 H Performed by cer tified dishing machine operator at [facility] GLUCOSE [id number] 19:30:00* Test Item Value Reference Range Interpretation Comme nts GLUCOSE BEDSIDE (test code = GLUBED) 267 MG/DL 70-110 H Performed by cer tified dishing machine operator at [facility] BASIC METABOLIC [id number] 16:04:00* Test Item Value Reference Range Interpretation [...] code = CA) 6.9 mg/dL 8.0-10.5 L [id number] 16:04:00* Test Item Value Reference Range Interpretation Comme [facility] MAGNESIUM (test code = MAG) 2.14 mg/dL 1.6-2.6 N CALCIUM [id number] 16:04:00* Test Item Value Reference Range Interpretation Comme nts CALCIUM IONIZED (test code = CARLOS) 0.96 MMOL/L 1.09-1.30 L POC ARTERIAL BLOOD [id number] 15:23:00* Test Item Value Reference Range Interpretation Comme nts POC ARTERIAL BLOOD GAS PH (t est code = POCPHA) 7.440 7.35-7.45 N POC ARTERIAL BLOOD GAS PCO2 (test code = CDCWQG0T) 25.8 mmHg 35.0-45 LL POC TCO2 ARTERIAL (test code = POCTCO2) 18.4 POC ARTERIAL BLOOD GAS PO2 ( test code = BAWPQ5R) 53.9 mmHg 80-100.0 L POC HCO3 ARTERIAL (test code = [id number]) 17.6 MMOL/L 22.0-26.0 LL POC BASE EXCESS (test code = POCBEA) -6.7 MMOL/L -4.0-4.0 L POC O2 SATURATION (test code = POCO2S) 90.2 % 90-100 N FIO2 (test code = FIO2A) 40.0 % PaO2/FiO2 (test code = [id number]) 134.70 mm/Hg ABG DELIVERY (test code = DELVIN) HFNC ABG TEMPERATURE (test code = TEMPA) 97.7 F ABG SITE (test code = SITEA) Art Line BASIC METABOLIC [id number] 15:23:00* Test Item Value Reference Range Interpretation [...] = POCGLU) 173 MG/DL 70-110 H HEMOGLOBIN [id number] 15:23:00* Test Item Value Reference Range Interpretation Comme nts HEMOGLOBIN ABG (test code = HGB/ABG) 8.6 G/DL 12.5-16.9 L [id number] 15:23:00* Test Item Value Reference Range Interpretation Comme nts HEMATOCRIT (test code = HCT/ABG) 25 % 37.5-50.7 L POC LACTIC [id number] 15:23:00* Test Item Value Reference Range Interpretation Comme nts POC LACTIC ACID (test code = POCLAC) 0.7 mmol/l 0.9-1.7 L [id number] 11:58:00* Test Item Value Reference Range Interpretation Comments SURGICAL (test code = SR) RUN DATE: 06/15/23 [facility] - LAB PAGE 1 RUN TIME: 1159 Specimen Inquiry RUN USER: INTERFACE PATIENT: MINDY CARTER LOC: RebecaCVU U #: [id number] AGE/SX: 67/M ROOM: [facility] RE05/31/23REG DR: Kimmie Bacon MD : 54 BED: 1 DIS: STATUS: ADM IN TLOC: SPEC #: [id number] RECD: 06/14/23 STATUS: JEFF MARTIN #: [id number] KOFFI: 06/11/23- [facility] DR: Kimmie Bacon MD ENTERED: 06/14/23 SP TYPE: SURGICAL OTHR DR: No Primary or Family Physician Self Referred Clayton Nathan MD,Nathaniel Tovar MD, MD,Eleonora Cotto,Joe Mcdonnell,Rigoberto Garcia MD, MDORDERED: 49613, ANATOMIC SPEC COPIES TO: No Primary or Family Physician Self Referred Clayton Nathan MD [address] [place] [address] Nkechi Bacon MD [address] [place] [address] [place] [address] [facility] [address] [place], [place] [id number] Nathaniel Martel MD [address] [facility] [address] [facility] [place] [address] Eleonora Mai MD [address] [place], [place] [address] [address] CONTINUED ON NEXT PAGE RUN DATE: 06/15/23 [place] - LAB PAGE 2 RUN TIME: 1159 Specimen Inquiry RUN USER: INTERFACE SPEC #: [id number] PATIENT: MINDY CARTER #[id number] (Continued) - COPIES TO: (Continued) Joe Cotto MD [address] [place] [address] Kareem Mcdonnell MD [address] [place] [address] Rigoberto Jarrell MD [address] [place] [address] [address] [place] [address] PROCEDURES: 93835 (06/14/23-1113) TISSUES: A. ATRIUM - LEFT ATRIAL APPENDAGE FINAL DIAGNOSIS Heart, left atrial appendage, wedge biopsy: - Myocardium with focal ischemic change. GROSS DESCRIPTION Received in formalin labeled "left atrial appendage "is a wedge biopsy of heart, 3.5 x 2 x1.4 cm, sectioned and entirely submitted (A)-(B). Technical component performed at [facility],[address] [place] [address], [place] [address] Unless gross only, the diagnosis is based [...] Signed SIGNATURE ON FILE Jesus Jason 06/15/23 6248 END OF REPORT GLUCOSE [id number] 11:47:00* Test Item Value Reference Range Interpretation Comme nts GLUCOSE BEDSIDE (test code = GLUBED) 196 MG/DL 70-110 H Performed by linda carter dishing machine operator at [facility] BASIC METABOLIC [id number] 10:06:00* Test Item Value Reference Range Interpretation [...] code = CA) 8.2 mg/dL 8.0-10.5 N [id number] 10:06:00* Test Item Value Reference Range Interpretation Comme nts MAGNESIUM (test code = MAG) 2.30 mg/dL 1.6-2.6 N CALCIUM [id number] 10:06:00* Test Item Value Reference Range Interpretation Comme nts CALCIUM IONIZED (test code = CARLOS) 1.10 MMOL/L 1.09-1.30 N POC ARTERIAL BLOOD [id number] 09:49:00* Test Item Value Reference Range Interpretation Comme nts POC ARTERIAL BLOOD GAS PH (t est code = POCPHA) 7.407 7.35-7.45 N POC ARTERIAL BLOOD GAS PCO2 (test code = OTTRXF7M) 34.4 mmHg 35.0-45 L POC TCO2 ARTERIAL (test code = POCTCO2) 22.7 POC ARTERIAL BLOOD GAS PO2 ( test code = ZVJUG6Z) 89.7 mmHg 80-100.0 N POC HCO3 ARTERIAL (test code = DBPABI5I) 21.6 MMOL/L 22.0-26.0 L POC BASE EXCESS (test code = POCBEA) -3.0 MMOL/L -4.0-4.0 N POC O2 SATURATION (test code = POCO2S) 97.1 % 90-100 N FIO2 (test code = FIO2A) 56 % PaO2/FiO2 (test code = RKI2QUU5) 160.17 mm/Hg ABG DELIVERY (test code = DELVIN) HFNC ABG TEMPERATURE (test code = TEMPA) 97.7 F ABG SITE (test code = SITEA) Art Line BASIC METABOLIC [id number] 09:49:00* Test Item Value Reference Range Interpretation [...] = POCGLU) 146 MG/DL 70-110 H HEMOGLOBIN [id number] 09:49:00* Test Item Value Reference Range Interpretation Comme nts HEMOGLOBIN ABG (test code = HGB/ABG) 10.1 G/DL 12.5-16.9 L [id number] 09:49:00* Test Item Value Reference Range Interpretation Comme nts HEMATOCRIT (test code = HCT/ABG) 30 % 37.5-50.7 L POC LACTIC [id number] 09:49:00* Test Item Value Reference Range Interpretation Comme nts POC LACTIC ACID (test code = POCLAC) 0.7 mmol/l 0.9-1.7 L GLUCOSE [id number] 08:27:00* Test Item Value Reference Range Interpretation Comme nts GLUCOSE BEDSIDE (test code = GLUBED) 168 MG/DL 70-110 H Performed by cer tified dishing machine operator at [facility] HEPATIC FUNCTION [id number] 07:37:00* Test Item Value Reference Range Interpretation [...] IUnit/L 20-125 N - XR CHEST 1 [id number] 07:28:00 [facility] : 1955 Sex: M FAX: Kimmie Bacon MD [phone] [place]: St: ADM FAX: Eleonora Mai MD [phone] FAX: Kareem Mcdonnell MD [phone] Name: MINDY CARTER [facility] : 1955 Age/S: 67/M [address] [place] [address] Unit #:[id number] Loc: [place] [place] [address] Phys: Kareme Mcdonnell MD Acct: [id number] Dis Date: Status: ADM IN PHONE #: [phone] Exam Date: 06/15/2023632 FAX #: [phone] Reason: POST CABG EXAMS: CPT CODE: [id number] XR CHEST 1 V 11383 CHEST 1 VIEW: INDICATION: POST CABG COMPARISON: Comparison made with previous study of 06/14/2023 Location: C3 A single portable AP view of the chest demonstrates stable postsurgical change of median sternotomy and CABG. A right-sided Colt-Chacorta catheter structures towards the right pulmonary artery. Pleural tubes are unchanged. The heart is enlarged. Haz y lung opacities and small right pleural effusion present. No apparent pneumothorax. The visualizedbony structures are unremarkable. IMPRESSION: 1. Lines and tubes are seen in suitable position. 2.CHF, unchanged. at 0728 Reported and signed by: Rogelio Casanova M.D. CC: Kimmie Bacon MD; Eleonora Mai MD; Kareem Mcdonnell MD Technologist: RT Zaid(R) Trnscrd Date/Time/By: 06/15/2023 (07) : By: [email or web address] Orig Print D/T: S: 06/15/2023 (0981) PAGE 1 Signed ReportPOC ARTERIAL BLOOD [id number] 05:24:00* Test Item Value Reference Range Interpretation Comme nts POC ARTERIAL BLOOD GAS PH (t est code = POCPHA) 7.395 7.35-7.45 N POC ARTERIAL BLOOD GAS PCO2 (test code = AYISQD7E) 37.2 mmHg 35.0-45 N POC TCO2 ARTERIAL (test code = POCTCO2) 23.9 POC ARTERIAL BLOOD GAS PO2 ( test code = SFEXB2P) 61.1 mmHg 80-100.0 L POC HCO3 ARTERIAL (test code = LSDXVL8A) 22.8 MMOL/L 22.0-26.0 N POC BASE EXCESS (test code = POCBEA) -2.1 MMOL/L -4.0-4.0 N POC O2 SATURATION (test code = POCO2S) 91.0 % 90-100 N ABG DELIVERY (test code = DELVIN) HFNC ABG SITE (test code = SITEA) Art Line MABEL'S TEST (test code = ALLENS) N/A BASIC METABOLIC [id number] 05:24:00* Test Item Value Reference Range Interpretation [...] = POCGLU) 132 MG/DL 70-110 H HEMOGLOBIN [id number] 05:24:00* Test Item Value Reference Range Interpretation Comme nts HEMOGLOBIN ABG (test code = HGB/ABG) 10.6 G/DL 12.5-16.9 L [id number] 05:24:00* Test Item Value Reference Range Interpretation Comme nts HEMATOCRIT (test code = HCT/ABG) 31 % 37.5-50.7 L POC LACTIC [id number] 05:24:00* Test Item Value Reference Range Interpretation Comme nts POC LACTIC ACID (test code = POCLAC) 0.7 mmol/l 0.9-1.7 L BASIC METABOLIC [id number] 03:43:00* Test Item Value Reference Range Interpretation [...] code = CA) 8.3 mg/dL 8.0-10.5 N [id number] 03:43:00* Test Item Value Reference Range Interpretation Comme nts MAGNESIUM (test code = MAG) 2.18 mg/dL 1.6-2.6 N CBC W/AUTO [id number] 03:24:00* Test Item Value Reference Range Interpretation [...] NRBC#) 0.00 x10 3/uL 0.0-0.1 N GLUCOSE [id number] 03:23:00* Test Item Value Reference Range Interpretation Comme nts GLUCOSE BEDSIDE (test code = GLUBED) 169 MG/DL 70-110 H Performed by cer tified dishing machine operator at [facility] GLUCOSE [id number] 00:50:00* Test Item Value Reference Range Interpretation Comme nts GLUCOSE BEDSIDE (test code = GLUBED) 175 MG/DL 70-110 H Performed by cer tified dishing machine operator at [facility] GLUCOSE [id number] 22:42:00* Test Item Value Reference Range Interpretation Comme nts GLUCOSE BEDSIDE (test code = GLUBED) 213 MG/DL 70-110 H Performed by cer tified dishing machine operator at [facility] GLUCOSE [id number] 20:14:00* Test Item Value Reference Range Interpretation Comme nts GLUCOSE BEDSIDE (test code = GLUBED) 263 MG/DL 70-110 H Performed by cer tified dishing machine operator at [facility] GLUCOSE [id number] 19:24:00* Test Item Value Reference Range Interpretation Comme nts GLUCOSE BEDSIDE (test code = GLUBED) 290 MG/DL 70-110 H Performed by cer tified dishing machine operator at [facility] GLUCOSE [id number] 18:15:00* Test Item Value Reference Range Interpretation Comme nts GLUCOSE BEDSIDE (test code = GLUBED) 351 MG/DL 70-110 H Performed by cer tified dishing machine operator at [facility] GLUCOSE [id number] 17:36:00* Test Item Value Reference Range Interpretation Comme nts GLUCOSE BEDSIDE (test code = GLUBED) 300 MG/DL 70-110 H Performed by cer tified dishing machine operator at [facility] BASIC METABOLIC [id number] 13:30:00* Test Item Value Reference Range Interpretation [...] code = CA) 8.5 mg/dL 8.0-10.5 N [id number] 13:30:00* Test Item Value Reference Range Interpretation Comme nts MAGNESIUM (test code = MAG) 2.33 mg/dL 1.6-2.6 N CALCIUM [id number] 13:30:00* Test Item Value Reference Range Interpretation Comme nts CALCIUM IONIZED (test code = CARLOS) 1.15 MMOL/L 1.09-1.30 N GLUCOSE [id number] 12:15:00* Test Item Value Reference Range Interpretation Comme nts GLUCOSE BEDSIDE (test code = GLUBED) 194 MG/DL 70-110 H Performed by linda marcus at [facility] - US ABDOMEN [id number] 10:07:00 [facility] : 1955 Sex: M Name: MINDY CARTER [facility] : 1955 Age/S: 67 / M [address] [place] [address] Unit #: [id number] Loc: [place] [address] Phys: Johnna Pablo Physic Acct: [id number] Dis Date: Status: ADM IN PHONE #: [phone] Exam Date: 06/14/2023940 FAX #: [phone] Reason: include focus onliver EXAMS: CPT CODE: [id number] US ABDOMEN COMPLETE 62302 EXAM: - US ABDOMEN COMPLETE LOCATION: C4 HISTORY: include focus on liver COMPARISON: None available. TECHNIQUE: Grayscale B-mode, SpectralDoppler analysis, and color Doppler sonographic images of the abdomen were obtained. FINDINGS: LIVER: Normal echogenicity. Nodular contour and coarse echotexture. No focal mass lesions or intrahepatic biliary duct dilation visualized. No perihepatic ascites. Main portal vein is patent with normal antegrade flow. GALLBLADDER: Cholelithiasis without gallbladder wall thickening, pericholecystic fluid, or surrounding inflammatory changes. Sonographic Osuna sign is negative. COMMON DUCT: Measures approximately 0.5 cm in diameter. PANCREAS: Partially obscured [...] perinephric fluid collections. OTHER: No ascites. IMPRESSION: Evaluationlimited by overlying bandage. Cirrhotic liver morphology. Cholelithiasis and distended gallbladder without sonographic features of acute cholecystitis. PAGE 1 Signed Report (CONTINUED) Name: MINDY CARTER [facility] : 1955 Age/S: 67 / M [address] [place] [address] Unit #: [id number] Loc: [place] [address] Phys: Johnna Pablo Physic Acct: [id number] Dis Date: Status: ADM IN PHONE #: [phone] Exam Date: 06/14/2023940 FAX #: [phone] Reason: include focus on liver EXAMS: CPT CODE: [id number] US ABDOMEN COMPLETE 60808 (Continued) at 1007 Reported and signed by: Desi Fry M.D. CC: Kimmie Bacon MD; Eleonora Eduardo MD; Johnna Pablo Technologist: Ceci Haddad RDMS(AB)(OB) Trnscb Date/Time: 06/14/2023 (1007) [email or web address] Orig Print D/T: S: 06/14/2023 (1010) Probe: PAGE 2 Signed Report- XR CHEST 1 [id number] 09:34:00 [facility] : 1955 Sex: M FAX: Kimmie Bacon MD [phone] [place]: St: ADM FAX: Nathaniel Shirley MD [phone] FAX: Eleonora Mai MD [phone] Name: MINDY CARTER [facility] : 1955 Age/S: 67/M [address] [place] [address] Unit #: [id number] Loc: [place] [address] Phys: Nathaniel Martel MD Acct: [id number] Dis Date: Status: ADM IN PHONE #: [phone] Exam Date: 06/14/2023 0609 FAX #: [phone] Reason: Cardiac Surgery Post Op EXAMS: CPT CODE: [id number] XR CHEST 1 V 00074 Dictation location: C4. CHEST, FRONTAL VIEW HISTORY: Cardiac Surgery Post Op FINDINGS: Since 06/13/23, the right IJ Colt-Chacorta catheterremains in the main pulmonary artery directed toward [...] Date/Time/By: 06/14/2023 (0934) : By: [email or web address] Orig PrintD/T: S: 06/14/2023 (0937) PAGE 1 Signed ReportBASIC METABOLIC [id number] 05:55:00* Test Item Value Reference Range Interpretation [...] mg/dL 8.0-10.5 N COMMENTS: POD #1HEPATIC FUNCTION [id number] 05:55:00* Test Item Value Reference Range Interpretation [...] ALKP) 101 IUnit/L 20-125 N COMMENTS: POD #[id number] 05:55:00* Test Item Value Reference Range Interpretation Comme nts MAGNESIUM (test code = MAG) 2.47 mg/dL 1.6-2.6 N COMMENTS: POD #1CBC W/AUTO [id number] 05:10:00* Test Item Value Reference Range Interpretation [...] NRBC#) 0.04 x10 3/uL 0.0-0.1 N GLUCOSE [id number] 05:09:00* Test Item Value Reference Range Interpretation Comme nts GLUCOSE BEDSIDE (test code = GLUBED) 225 MG/DL 70-110 H Performed by cer tified dishing machine operator at [facility] GLUCOSE [id number] 04:17:00* Test Item Value Reference Range Interpretation Comme nts GLUCOSE BEDSIDE (test code = GLUBED) 255 MG/DL 70-110 H Performed by cer raul dishing machine operator at [facility] POC ARTERIAL BLOOD [id number] 04:01:00* Test Item Value Reference Range Interpretation Comme nts POC ARTERIAL BLOOD GAS PH (t est code = POCPHA) 7.443 7.35-7.45 N POC ARTERIAL BLOOD GAS PCO2 (test code = FIJDQP8J) 27.0 mmHg 35.0-45 LL POC TCO2 ARTERIAL (test code = POCTCO2) 19.4 POC ARTERIAL BLOOD GAS PO2 ( test code = KSTYI0H) 88.4 mmHg 80-100.0 N POC HCO3 ARTERIAL (test code = RDQHUV0P) 18.6 MMOL/L 22.0-26.0 L POC BASE EXCESS (test code = POCBEA) -5.7 MMOL/L -4.0-4.0 L POC O2 SATURATION (test code = POCO2S) 97.5 % 90-100 N FIO2 (test code = FIO2A) 60.0 % PaO2/FiO2 (test code = JXH5ZYL5) 147.30 mm/Hg ABG DELIVERY (test code = DELVIN) BiPAP ABG VENT RESP RATE (test cod e = RRA) 18 /MIN ABG TEMPERATURE (test code = TEMPA) 97.7 F ABG SITE (test code = SITEA) Art Line BASIC METABOLIC [id number] 04:01:00* Test Item Value Reference Range Interpretation [...] = POCGLU) 247 MG/DL 70-110 H HEMOGLOBIN [id number] 04:01:00* Test Item Value Reference Range Interpretation Comme nts HEMOGLOBIN ABG (test code = HGB/ABG) 11.0 G/DL 12.5-16.9 L [id number] 04:01:00* Test Item Value Reference Range Interpretation Comme [facility] HEMATOCRIT (test code = HCT/ABG) 32 % 37.5-50.7 L POC LACTIC [id number] 04:01:00* Test Item Value Reference Range Interpretation Comme nts POC LACTIC ACID (test code = POCLAC) 1.5 mmol/l 0.9-1.7 N GLUCOSE [id number] 03:06:00* Test Item Value Reference Range Interpretation Comme nts GLUCOSE BEDSIDE (test code = GLUBED) 313 MG/DL 70-110 H Performed by cer tified dishing machine operator at [facility] BASIC METABOLIC [id number] 02:32:00* Test Item Value Reference Range Interpretation [...] code = CA) 8.6 mg/dL 8.0-10.5 N [id number] 02:32:00* Test Item Value Reference Range Interpretation Comme nts MAGNESIUM (test code = MAG) 2.40 mg/dL 1.6-2.6 N CALCIUM [id number] 02:32:00* Test Item Value Reference Range Interpretation Comme nts CALCIUM IONIZED (test code = CARLOS) 1.16 MMOL/L 1.09-1.30 N GLUCOSE [id number] 22:54:00* Test Item Value Reference Range Interpretation Comme nts GLUCOSE BEDSIDE (test code = GLUBED) 239 MG/DL 70-110 H Performed by cer tified dishing machine operator at [facility] BASIC METABOLIC [id number] 21:19:00* Test Item Value Reference Range Interpretation [...] code = CA) 8.5 mg/dL 8.0-10.5 N [id number] 21:19:00* Test Item Value Reference Range Interpretation Comme nts MAGNESIUM (test code = MAG) 2.42 mg/dL 1.6-2.6 N CALCIUM [id number] 21:19:00* Test Item Value Reference Range Interpretation Comme nts CALCIUM IONIZED (test code = CARLOS) 1.08 MMOL/L 1.09-1.30 L POC ARTERIAL BLOOD [id number] 20:46:00* Test Item Value Reference Range Interpretation Comme nts POC ARTERIAL BLOOD GAS PH (t est code = POCPHA) 7.424 7.35-7.45 N POC ARTERIAL BLOOD GAS PCO2 (test code = MKNDVK7B) 27.4 mmHg 35.0-45 LL POC TCO2 ARTERIAL (test code = POCTCO2) 18.9 POC ARTERIAL BLOOD GAS PO2 ( test code = BCBAL4K) 73.6 mmHg 80-100.0 L POC HCO3 ARTERIAL (test code = QZBSWC2E) 18.0 MMOL/L 22.0-26.0 L POC BASE EXCESS (test code = POCBEA) -6.5 MMOL/L -4.0-4.0 L POC O2 SATURATION (test code = POCO2S) 95.6 % 90-100 N FIO2 (test code = FIO2A) 60.0 % PaO2/FiO2 (test code = RKA0PZU6) 122.60 mm/Hg ABG DELIVERY (test code = DELVIN) BiPAP ABG VENT RESP RATE (test cod e = RRA) 18 /MIN ABG TEMPERATURE (test code = TEMPA) 97.6 F ABG SITE (test code = SITEA) Art Line BASIC METABOLIC [id number] 20:46:00* Test Item Value Reference Range Interpretation [...] = POCGLU) 258 MG/DL 70-110 H HEMOGLOBIN [id number] 20:46:00* Test Item Value Reference Range Interpretation Comme nts HEMOGLOBIN ABG (test code = HGB/ABG) 12.1 G/DL 12.5-16.9 L [id number] 20:46:00* Test Item Value Reference Range Interpretation Comme nts HEMATOCRIT (test code = HCT/ABG) 36 % 37.5-50.7 L POC LACTIC [id number] 20:46:00* Test Item Value Reference Range Interpretation Comme nts POC LACTIC ACID (test code = POCLAC) 1.2 mmol/l 0.9-1.7 N GLUCOSE [id number] 20:24:00* Test Item Value Reference Range Interpretation Comme nts GLUCOSE BEDSIDE (test code = GLUBED) 242 MG/DL 70-110 H Performed by cer tified dishing machine operator at [facility] GLUCOSE [id number] 19:02:00* Test Item Value Reference Range Interpretation Comme nts GLUCOSE BEDSIDE (test code = GLUBED) 204 MG/DL 70-110 H Performed by cer tified dishing machine operator at [facility] GLUCOSE [id number] 17:06:00* Test Item Value Reference Range Interpretation Comme nts GLUCOSE BEDSIDE (test code = GLUBED) 133 MG/DL 70-110 H Performed by cer tified dishing machine operator at [facility] GLUCOSE [id number] 15:39:00* Test Item Value Reference Range Interpretation Comme nts GLUCOSE BEDSIDE (test code = GLUBED) 153 MG/DL 70-110 H Performed by cer tified dishing machine operator at [facility] BASIC METABOLIC [id number] 14:21:00* Test Item Value Reference Range Interpretation [...] = CA) 9.7 mg/dL 8.0-10.5 N GLUCOSE [id number] 13:59:00* Test Item Value Reference Range Interpretation Comme nts GLUCOSE BEDSIDE (test code = GLUBED) 165 MG/DL 70-110 H Performed by cer raul dishing machine operator at [facility] POC ARTERIAL BLOOD [id number] 12:50:00* Test Item Value Reference Range Interpretation Comme nts POC ARTERIAL BLOOD GAS PH (t est code = POCPHA) 7.386 7.35-7.45 N POC ARTERIAL BLOOD GAS PCO2 (test code = SHEUSB8G) 29.9 mmHg 35.0-45 LL POC TCO2 ARTERIAL (test code = POCTCO2) 18.8 POC ARTERIAL BLOOD GAS PO2 ( test code = BIDSF1B) 88.5 mmHg 80-100.0 N POC HCO3 ARTERIAL (test code = AUFEFB4G) 17.9 MMOL/L 22.0-26.0 LL POC BASE EXCESS (test code = POCBEA) -7.1 MMOL/L -4.0-4.0 L POC O2 SATURATION (test code = POCO2S) 96.8 % 90-100 N FIO2 (test code = FIO2A) 60.0 % PaO2/FiO2 (test code = RWD0GLT2) 147.50 mm/Hg ABG DELIVERY (test code = DELVIN) BiPAP ABG SITE (test code = SITEA) L Radial BASIC METABOLIC [id number] 12:50:00* Test Item Value Reference Range Interpretation [...] = POCGLU) 171 MG/DL 70-110 H HEMOGLOBIN [id number] 12:50:00* Test Item Value Reference Range Interpretation Comme nts HEMOGLOBIN ABG (test code = HGB/ABG) 12.4 G/DL 12.5-16.9 L [id number] 12:50:00* Test Item Value Reference Range Interpretation Comme nts HEMATOCRIT (test code = HCT/ABG) 36 % 37.5-50.7 L POC LACTIC [id number] 12:50:00* Test Item Value Reference Range Interpretation Comme nts POC LACTIC ACID (test code = POCLAC) 1.1 mmol/l 0.9-1.7 N GLUCOSE [id number] 12:08:00* Test Item Value Reference Range Interpretation Comme nts GLUCOSE BEDSIDE (test code = GLUBED) 181 MG/DL 70-110 H Performed by cer tified dishing machine operator at [facility] LACTIC [id number] 10:44:00* Test Item Value Reference Range Interpretation Comme nts LACTIC ACID (test code = LACT) 1.5 mmol/L 0.4-1.9 N POC ARTERIAL BLOOD [id number] 09:41:00* Test Item Value Reference Range Interpretation Comme nts POC ARTERIAL BLOOD GAS PH (t est code = POCPHA) 7.383 7.35-7.45 N POC ARTERIAL BLOOD GAS PCO2 (test code = NQGVAX7J) 29.5 mmHg 35.0-45 LL POC TCO2 ARTERIAL (test code = POCTCO2) 18.5 POC ARTERIAL BLOOD GAS PO2 ( test code = OYAVK6O) 86.3 mmHg 80-100.0 N POC HCO3 ARTERIAL (test code = YENBGI8F) 17.6 MMOL/L 22.0-26.0 LL POC BASE EXCESS (test code = POCBEA) -7.5 MMOL/L -4.0-4.0 L POC O2 SATURATION (test code = POCO2S) 96.6 % 90-100 N BASIC METABOLIC [id number] 09:41:00* Test Item Value Reference Range Interpretation [...] = POCGLU) 212 MG/DL 70-110 H HEMOGLOBIN [id number] 09:41:00* Test Item Value Reference Range Interpretation Comme nts HEMOGLOBIN ABG (test code = HGB/ABG) 11.7 G/DL 12.5-16.9 L [id number] 09:41:00* Test Item Value Reference Range Interpretation Comme nts HEMATOCRIT (test code = HCT/ABG) 35 % 37.5-50.7 L POC LACTIC [id number] 09:41:00* Test Item Value Reference Range Interpretation Comme nts POC LACTIC ACID (test code = POCLAC) 1.3 mmol/l 0.9-1.7 N - XR CHEST 1 [id number] 07:53:00 [facility] 1955 Sex: MFAX: Kimmie Bacon MD [phone] [place]: St: ADM FAX: Nathaniel Shirley MD [phone] FAX: Eleonora Mai MD [phone] Name: [facility] 1955 Age/S: 67/M [address] [place] [address] Bl Unit #: [id number] Loc: .[address] [place] [address] Phys: Nathaniel Martel MD Acct: [id number] Dis Date: Status: ADM IN PHONE #: [phone] Exam Date: 06/13/2023728 FAX #: [phone] Reason: Cardiac Surgery Post Op EXAMS: CPT CODE: [id number] XR CHEST 1 V 29872 Location: C3 EXAM: - XR CHEST 1 V INDICATION: Cardiac Surgery Post Op COMPARISON: 06/12/2023 TECHNIQUE: AP Chest FINDINGS: Lines, tubesand hardware: Median sternotomy wires again noted. Right-sided Colt-Chacorta catheter tip overlies the expected location of [...] D/T: S: 06/13/2023 ([id number]) PAGE 1 [facility] 2023-06-13 07:27:00* Test Item Value Reference Range Interpretation Comme nts POC ARTERIAL BLOOD GAS PH (t est code = POCPHA) 7.419 7.35-7.45 N POC ARTERIAL BLOOD GAS PCO2 (test code = YYVPTN3W) 26.9 mmHg 35.0-45 LL POC TCO2 ARTERIAL (test code = POCTCO2) 18.3 POC ARTERIAL BLOOD GAS PO2 ( test code = IPUTP8P) 84.5 mmHg 80-100.0 N POC HCO3 ARTERIAL (test code = LUQDLR4W) 17.4 MMOL/L 22.0-26.0 LL POC BASE EXCESS (test code = POCBEA) -7.1 MMOL/L -4.0-4.0 L POC O2 SATURATION (test code = POCO2S) 96.8 % 90-100 N FIO2 (test code = FIO2A) 60 % PaO2/FiO2 (test code = KLT4MNY6) 140.83 mm/Hg ABG DELIVERY (test code = DELVIN) BiPAP ABG SITE (test code = SITEA) L Radial BASIC METABOLIC [id number] 07:27:00* Test Item Value Reference Range Interpretation [...] = POCGLU) 235 MG/DL 70-110 H HEMOGLOBIN [id number] 07:27:00* Test Item Value Reference Range Interpretation Comme nts HEMOGLOBIN ABG (test code = HGB/ABG) 11.4 G/DL 12.5-16.9 L [id number] 07:27:00* Test Item Value Reference Range Interpretation Comme nts HEMATOCRIT (test code = HCT/ABG) 34 % 37.5-50.7 L POC LACTIC [id number] 07:27:00* Test Item Value Reference Range Interpretation Comme nts POC LACTIC ACID (test code = POCLAC) 1.3 mmol/l 0.9-1.7 N BASIC METABOLIC [id number] 07:18:00* Test Item Value Reference Range Interpretation [...] = POCGLU) 162 MG/DL 70-110 H HEMOGLOBIN [id number] 07:18:00* Test Item Value Reference Range Interpretation Comme nts HEMOGLOBIN ABG (test code = HGB/ABG) 11.3 G/DL 12.5-16.9 L [id number] 07:18:00* Test Item Value Reference Range Interpretation Comme nts HEMATOCRIT (test code = HCT/ABG) 33 % 37.5-50.7 L POC LACTIC [id number] 07:18:00* Test Item Value Reference Range Interpretation Comme nts POC LACTIC ACID (test code = POCLAC) 0.6 mmol/l 0.9-1.7 L POC VENOUS BLOOD [id number] 07:18:00* Test Item Value Reference Range Interpretation Comme nts POC VENOUS BLOOD GAS PH (maurice t code = POCPHV) 7.360 7.33-7.45 N POC VENOUS BLOOD GAS PCO2 (t est code = NPNXZA5R) 37.3 mmHg 43-47 L POC VENOUS BLOOD GAS PO2 (te st code = SRPGY6S) 32.7 mmHG 10-50 N POC TCO2 VENOUS (test code = WAZVVE1I) 22.2 POC HCO3 VENOUS (test code = YQYCYX1B) 21.1 MMOL/L 22-27 L POC BASE EXCESS VENOUS (test code = POCBEV) -4.3 MMOL/L -4.0-4.0 L POC O2 SATURATION VENOUS (te st code = HHEM2QC) 61.0 % 60-80 N VENOUS BLOOD GAS DELIVERY (t est code = DELV) Cannula VENOUS BLOOD GAS TEMP (test code = TEMPV) 98 F VENOUS BLOOD GAS SITE (test code = SITEV) PA CBC W/AUTO [id number] 05:19:00* Test Item Value Reference Range Interpretation [...] 0.00 x10 3/uL 0.0-0.1 N BASIC METABOLIC [id number] 03:59:00* Test Item Value Reference Range Interpretation [...] mg/dL 8.0-10.5 N COMMENTS: POD #1HEPATIC FUNCTION [id number] 03:59:00* Test Item Value Reference Range Interpretation [...] ALKP) 73 IUnit/L 20-125 N COMMENTS: POD #[id number] 03:59:00* Test Item Value Reference Range Interpretation Comme nts MAGNESIUM (test code = MAG) 2.46 mg/dL 1.6-2.6 N COMMENTS: POD #1POC ARTERIAL BLOOD [id number] 03:23:00* Test Item Value Reference Range Interpretation Comme nts POC ARTERIAL BLOOD GAS PH (t est code = POCPHA) 7.374 7.35-7.45 N POC ARTERIAL BLOOD GAS PCO2 (test code = BRTERY3U) 32.4 mmHg 35.0-45 L POC TCO2 ARTERIAL (test code = POCTCO2) 19.9 POC ARTERIAL BLOOD GAS PO2 ( test code = OQFOI5F) 90.5 mmHg 80-100.0 N POC HCO3 ARTERIAL (test code = FYDQUZ9D) 18.9 MMOL/L 22.0-26.0 L POC BASE EXCESS (test code = POCBEA) -6.3 MMOL/L -4.0-4.0 L POC O2 SATURATION (test code = POCO2S) 96.9 % 90-100 N FIO2 (test code = FIO2A) 60 % PaO2/FiO2 (test code = ABJ6ESJ6) 150.83 mm/Hg ABG DELIVERY (test code = DELVIN) BiPAP ABG TEMPERATURE (test code = TEMPA) 98 F ABG SITE (test code = SITEA) Art Line BASIC METABOLIC [id number] 03:23:00* Test Item Value Reference Range Interpretation [...] = POCGLU) 162 MG/DL 70-110 H HEMOGLOBIN [id number] 03:23:00* Test Item Value Reference Range Interpretation Comme nts HEMOGLOBIN ABG (test code = HGB/ABG) 10.7 G/DL 12.5-16.9 L [id number] 03:23:00* Test Item Value Reference Range Interpretation Comme nts HEMATOCRIT (test code = HCT/ABG) 32 % 37.5-50.7 L POC LACTIC [id number] 03:23:00* Test Item Value Reference Range Interpretation Comme nts POC LACTIC ACID (test code = POCLAC) 0.9 mmol/l 0.9-1.7 N GLUCOSE [id number] 01:10:00* Test Item Value Reference Range Interpretation Comme nts GLUCOSE BEDSIDE (test code = GLUBED) 160 MG/DL 70-110 H Performed by cer tified dishing machine operator at [facility] BASIC METABOLIC [id number] 22:54:00* Test Item Value Reference Range Interpretation [...] = CA) 8.9 mg/dL 8.0-10.5 N GLUCOSE [id number] 21:41:00* Test Item Value Reference Range Interpretation Comme nts GLUCOSE BEDSIDE (test code = GLUBED) 185 MG/DL 70-110 H Performed by cer tified dishing machine operator at [facility] GLUCOSE [id number] 18:44:00* Test Item Value Reference Range Interpretation Comme nts GLUCOSE BEDSIDE (test code = GLUBED) 319 MG/DL 70-110 H Performed by cer tified dishing machine operator at [facility] GLUCOSE [id number] 16:43:00* Test Item Value Reference Range Interpretation Comme nts GLUCOSE BEDSIDE (test code = GLUBED) 336 MG/DL 70-110 H Performed by cer tified dishing machine operator at [facility] GLUCOSE [id number] 15:21:00* Test Item Value Reference Range Interpretation Comme nts GLUCOSE BEDSIDE (test code = GLUBED) 356 MG/DL 70-110 H Performed by cer tified dishing machine operator at [facility] GLUCOSE [id number] 14:09:00* Test Item Value Reference Range Interpretation Comme nts GLUCOSE BEDSIDE (test code = GLUBED) 352 MG/DL 70-110 H Performed by cer tified dishing machine operator at [facility] GLUCOSE [id number] 11:56:00* Test Item Value Reference Range Interpretation Comme nts GLUCOSE BEDSIDE (test code = GLUBED) 293 MG/DL 70-110 H Performed by cer tified dishing machine operator at [facility] - XR CHEST 1 [id number] 08:52:00 [facility] : 1955 Sex: M FAX: Nathaniel Shirley MD [phone] [place]: St: [facility] FAX: Eleonora Mai MD [phone] FAX:Denise Montejo MD Name: MINDY CARTER [facility] : 1955 Age/S: 67/M [address] [place] [address] Blvd Unit #: [id number] Loc: G.2202 [place] [address] Phys: Nathaniel Martel MD Acct: [id number] Dis Date: Status: ADM IN PHONE #: [phone] Exam Date: 06/12/2023 0832 FAX #: [phone] Reason: Cardiac Surgery Post Op EXAMS: CPT CODE: [id number] XR CHEST 1 V 01826 CLINICAL HISTORY: Cardiac Surgery Post Op. LOCATION: FINDINGS: Comparison is made with a previous study dated June 11, 2023. A portable AP view of the chest is dated 06/12/2023 7:00 AM. There is stable moderate cardiomegaly. Endotracheal tube has been removed. No other change in tubes or lines. There is pulmonary vascular congestion andmild diffuse interstitial prominence. There is moderate infiltrate [...] By: [email or web address] Orig Print D/T: S: 06/12/2023 (2486) PAGE1 Signed ReportPO ARTERIAL BLOOD [id number] 06:46:00* Test Item Value Reference Range Interpretation Comme nts POC ARTERIAL BLOOD GAS PH (t est code = POCPHA) 7.361 7.35-7.45 N POC ARTERIAL BLOOD GAS PCO2 (test code = XMGIXN7Y) 34.9 mmHg 35.0-45 L POC TCO2 ARTERIAL (test code = POCTCO2) 21.0 POC ARTERIAL BLOOD GAS PO2 ( test code = HYZYH4Y) 80.1 mmHg 80-100.0 N POC HCO3 ARTERIAL (test code = UDSWQU8B) 19.9 MMOL/L 22.0-26.0 L POC BASE EXCESS (test code = POCBEA) -5.6 MMOL/L -4.0-4.0 L POC O2 SATURATION (test code = POCO2S) 95.6 % 90-100 N ABG DELIVERY (test code = DELVIN) 12L HFNC ABG TEMPERATURE (test code = TEMPA) 98 F ABG SITE (test code = SITEA) Art Line BASIC METABOLIC [id number] 06:46:00* Test Item Value Reference Range Interpretation [...] = POCGLU) 228 MG/DL 70-110 H HEMOGLOBIN [id number] 06:46:00* Test Item Value Reference Range Interpretation Comme nts HEMOGLOBIN ABG (test code = HGB/ABG) 10.6 G/DL 12.5-16.9 L [id number] 06:46:00* Test Item Value Reference Range Interpretation Comme nts HEMATOCRIT (test code = HCT/ABG) 31 % 37.5-50.7 L POC LACTIC [id number] 06:46:00* Test Item Value Reference Range Interpretation Comme nts POC LACTIC ACID (test code = POCLAC) 1.5 mmol/l 0.9-1.7 N BASIC METABOLIC [id number] 04:12:00* Test Item Value Reference Range Interpretation [...] = POCGLU) 208 MG/DL 70-110 H HEMOGLOBIN [id number] 04:12:00* Test Item Value Reference Range Interpretation Comme nts HEMOGLOBIN ABG (test code = HGB/ABG) 11.4 G/DL 12.5-16.9 L [id number] 04:12:00* Test Item Value Reference Range Interpretation Comme nts HEMATOCRIT (test code = HCT/ABG) 33 % 37.5-50.7 L POC LACTIC [id number] 04:12:00* Test Item Value Reference Range Interpretation Comme nts POC LACTIC ACID (test code = POCLAC) 1.7 mmol/l 0.9-1.7 N POC VENOUS BLOOD [id number] 04:12:00* Test Item Value Reference Range Interpretation Comme nts POC VENOUS BLOOD GAS PH (maurice t code = POCPHV) 7.322 7.33-7.45 L POC VENOUS BLOOD GAS PCO2 (t est code = GRTLMJ8I) 44.0 mmHg 43-47 N POC VENOUS BLOOD GAS PO2 (te st code = LAUFQ8Y) 45.0 mmHG 10-50 N POC TCO2 VENOUS (test code = OAUHMA7M) 24.1 POC HCO3 VENOUS (test code = OENHZE7E) 22.8 MMOL/L 22-27 N POC BASE EXCESS VENOUS (test code = POCBEV) -3.3 MMOL/L -4.0-4.0 N POC O2 SATURATION VENOUS (te st code = ISXY0DY) 77.0 % 60-80 N VENOUS BLOOD GAS FIO2 (test code = FIO2V) 60.0 % VENOUS BLOOD GAS DELIVERY (t est code = DELV) BiPAP VENOUS BLOOD GAS PEEP (test code = PEEPV) 6 cmH2O PRESSURE SUPPORT (test code = PSV) 12 cmH2O VENOUS BLOOD GAS SITE (test code = SITEV) PA PROTHROMBIN [id number] 02:50:00* Test Item Value Reference Range Interpretation [...] Infarction (to prevent recurrent infarct). THROMBOPLASTIN TIME [id number] 02:50:00* Test Item Value Reference Range Interpretation Comme nts THROMBOPLASTIN TIME PARTIAL (test code = PTT) 31.2 Seconds 25.0-39.5 N Therapeutic Rang e: 50.4 - 88.3 Seconds Effective 07/12/2018 POC ARTERIAL BLOOD [id number] 02:49:00* Test Item Value Reference Range Interpretation Comme nts POC ARTERIAL BLOOD GAS PH (t est code = POCPHA) 7.349 7.35-7.45 L POC ARTERIAL BLOOD GAS PCO2 (test code = YUDFMV2A) 40.2 mmHg 35.0-45 N POC TCO2 ARTERIAL (test code = POCTCO2) 23.4 POC ARTERIAL BLOOD GAS PO2 ( test code = BRPAC8Q) 112.5 mmHg 80-100.0 H POC HCO3 ARTERIAL (test code = IUCTNU8L) 22.1 MMOL/L 22.0-26.0 N POC BASE EXCESS (test code = POCBEA) -3.5 MMOL/L -4.0-4.0 N POC O2 SATURATION (test code = POCO2S) 98.2 % 90-100 N FIO2 (test code = FIO2A) 60 % PaO2/FiO2 (test code = YUB4YHQ5) 187.50 mm/Hg ABG DELIVERY (test code = DELVIN) BiPAP ABG PEEP (test code = PEEPA) 5 cmH2O ABG PRESSURE SUPPORT (test c ode = PSABG) 12 cmH2O ABG TEMPERATURE (test code = TEMPA) 97.5 F ABG SITE (test code = SITEA) Art Line BASIC METABOLIC [id number] 02:49:00* Test Item Value Reference Range Interpretation [...] = POCGLU) 223 MG/DL 70-110 H HEMOGLOBIN [id number] 02:49:00* Test Item Value Reference Range Interpretation Comme nts HEMOGLOBIN ABG (test code = HGB/ABG) 10.6 G/DL 12.5-16.9 L [id number] 02:49:00* Test Item Value Reference Range Interpretation Comme nts HEMATOCRIT (test code = HCT/ABG) 31 % 37.5-50.7 L POC LACTIC [id number] 02:49:00* Test Item Value Reference Range Interpretation Comme nts POC LACTIC ACID (test code = POCLAC) 1.7 mmol/l 0.9-1.7 N BASIC METABOLIC [id number] 02:48:00* Test Item Value Reference Range Interpretation [...] mg/dL 8.0-10.5 N COMMENTS: POD #1HEPATIC FUNCTION [id number] 02:48:00* Test Item Value Reference Range Interpretation [...] ALKP) 74 IUnit/L 20-125 N COMMENTS: POD #[id number] 02:48:00* Test Item Value Reference Range Interpretation Comme nts MAGNESIUM (test code = MAG) 2.41 mg/dL 1.6-2.6 N COMMENTS: POD #1CBC W/AUTO [id number] 02:31:00* Test Item Value Reference Range Interpretation [...] NRBC#) 0.00 x10 3/uL 0.0-0.1 N GLUCOSE [id number] 00:03:00* Test Item Value Reference Range Interpretation Comme nts GLUCOSE BEDSIDE (test code = GLUBED) 275 MG/DL 70-110 H Performed by cer raul dishing machine operator at [facility] POC ARTERIAL BLOOD [id number] 23:30:00* Test Item Value Reference Range Interpretation Comme nts POC ARTERIAL BLOOD GAS PH (t est code = POCPHA) 7.367 7.35-7.45 N POC ARTERIAL BLOOD GAS PCO2 (test code = BBVHQG1H) 37.0 mmHg 35.0-45 N POC TCO2 ARTERIAL (test code = POCTCO2) 22.4 POC ARTERIAL BLOOD GAS PO2 ( test code = CKCSN0C) 66.0 mmHg 80-100.0 L POC HCO3 ARTERIAL (test code = MAXAMH7I) 21.2 MMOL/L 22.0-26.0 L POC BASE EXCESS (test code = POCBEA) -4.1 MMOL/L -4.0-4.0 L POC O2 SATURATION (test code = POCO2S) 92.2 % 90-100 N ABG DELIVERY (test code = DELVIN) Cannula ABG TEMPERATURE (test code = TEMPA) 97.7 F ABG SITE (test code = SITEA) Art Line BASIC METABOLIC [id number] 23:30:00* Test Item Value Reference Range Interpretation [...] = POCGLU) 265 MG/DL 70-110 H HEMOGLOBIN [id number] 23:30:00* Test Item Value Reference Range Interpretation Comme nts HEMOGLOBIN ABG (test code = HGB/ABG) 11.9 G/DL 12.5-16.9 L [id number] 23:30:00* Test Item Value Reference Range Interpretation Comme nts HEMATOCRIT (test code = HCT/ABG) 35 % 37.5-50.7 L POC LACTIC [id number] 23:30:00* Test Item Value Reference Range Interpretation Comme nts POC LACTIC ACID (test code = POCLAC) 2.7 mmol/l 0.9-1.7 H GLUCOSE [id number] 23:18:00* Test Item Value Reference Range Interpretation Comme nts GLUCOSE BEDSIDE (test code = GLUBED) 288 MG/DL 70-110 H Performed by cer tified dishing machine operator at [facility] POC ARTERIAL BLOOD [id number] 21:52:00* Test Item Value Reference Range Interpretation Comme nts POC ARTERIAL BLOOD GAS PH (t est code = POCPHA) 7.390 7.35-7.45 N POC ARTERIAL BLOOD GAS PCO2 (test code = TJVHFZ6Z) 36.4 mmHg 35.0-45 N POC TCO2 ARTERIAL (test code = POCTCO2) 23.2 POC ARTERIAL BLOOD GAS PO2 ( test code = FJKIY2X) 65.5 mmHg 80-100.0 L POC HCO3 ARTERIAL (test code = NKUYLS8X) 22.1 MMOL/L 22.0-26.0 N POC BASE EXCESS (test code = POCBEA) -2.9 MMOL/L -4.0-4.0 N POC O2 SATURATION (test code = POCO2S) 92.5 % 90-100 N FIO2 (test code = FIO2A) 50 % PaO2/FiO2 (test code = MQG1UGD3) 131.00 mm/Hg ABG DELIVERY (test code = DELVIN) Adult Vent ABG VENT MODE (test code = MODEA) PC/PS ABG PEEP (test code = PEEPA) 5 cmH2O ABG PRESSURE SUPPORT (test c ode = PSABG) 12 cmH2O ABG TEMPERATURE (test code = TEMPA) 99 F ABG SITE (test code = SITEA) Art Line BASIC METABOLIC [id number] 21:52:00* Test Item Value Reference Range Interpretation [...] = POCGLU) 264 MG/DL 70-110 H HEMOGLOBIN [id number] 21:52:00* Test Item Value Reference Range Interpretation Comme nts HEMOGLOBIN ABG (test code = HGB/ABG) 12.1 G/DL 12.5-16.9 L [id number] 21:52:00* Test Item Value Reference Range Interpretation Comme nts HEMATOCRIT (test code = HCT/ABG) 35 % 37.5-50.7 L POC LACTIC [id number] 21:52:00* Test Item Value Reference Range Interpretation Comme nts POC LACTIC ACID (test code = POCLAC) 2.4 mmol/l 0.9-1.7 H PROTHROMBIN [id number] 21:35:00* Test Item Value Reference Range Interpretation [...] prevent recurrent infarct). COMMENTS: On arrivalTHROMBOPLASTIN TIME [id number] 21:35:00* Test Item Value Reference Range Interpretation Comme nts THROMBOPLASTIN TIME PARTIAL (test code = PTT) 35.8 Seconds 25.0-39.5 Therapeutic Rang e: 50.4 - 88.3 Seconds Effective 07/12/2018 COMMENTS: On arrival- XR CHEST 1 [id number] 21:30:00 [facility] : 1955 Sex: M FAX: Nathaniel Shirley MD [phone] [place]: St: [facility] FAX: Eleonora Mai MD [phone] FAX:Denise Montejo MD Name: MINDY CARTER [facility] : 1955 Age/S: 67/M [address] [place] [address] Unit #: [id number] Loc: [address] [place] [address] Phys: Nathaniel Martel MD Acct: [id number] Dis Date: Status: ADM IN PHONE #: [phone] Exam Date: 06/11/20232104 FAX #: [phone] Reason: Cardiac Surgery Post Op EXAMS: CPT CODE: [id number] XR CHEST 1 V 98522 LOCATION: Q15 HISTORY: 67-year-old male,status post cardiac [...] level aortic arch and a right IJ Colt-Chacorta catheter seen in the right main pulmonary artery. IMPRESSION: Satisfactory postoperative appearance of the chest. at 0 Reported and signed by: Orlando Trimble M.D. CC: Nathaniel Martel MD; Eleonora Mai MD; Denise Montejo MD Technologist: RT Annie(R) Trnscrd Date/Time/By: 06/11/2023 (2129) : By: [email or web address] Orig Print D/T: S: 06/11/2023 (2132) PAGE 1 Signed ReportCBC W/AUTO [id number] 21:28:00* Test Item Value Reference Range Interpretation [...] 3/uL 0.0-0.1 N COMMENTS: On arrivalBASIC METABOLIC [id number] 21:13:00* Test Item Value Reference Range Interpretation [...] mg/dL 8.0-10.5 H COMMENTS: On arrivalComment: On [id number] 21:13:00* Test Item Value Reference Range Interpretation Comme nts MAGNESIUM (test code = MAG) 2.81 mg/dL 1.6-2.6 H COMMENTS: On arrivalComment: On arrivalPO ARTERIAL BLOOD [id number] 21:03:00 * Test Item Value Reference Range Interpretation Comme nts POC ARTERIAL BLOOD GAS PH (t est code = POCPHA) 7.371 7.35-7.45 N POC ARTERIAL BLOOD GAS PCO2 (test code = ILHDEU5X) 39.7 mmHg 35.0-45 N POC TCO2 ARTERIAL (test code = POCTCO2) 24.2 POC ARTERIAL BLOOD GAS PO2 ( test code = ZRQUQ5G) 70.5 mmHg 80-100.0 L POC HCO3 ARTERIAL (test code = LQCOAY0O) 23.0 MMOL/L 22.0-26.0 N POC BASE EXCESS (test code = POCBEA) -2.2 MMOL/L -4.0-4.0 N POC O2 SATURATION (test code = POCO2S) 93.5 % 90-100 N FIO2 (test code = FIO2A) 100 % PaO2/FiO2 (test code = UQY8UYP1) 70.50 mm/Hg ABG DELIVERY (test code = DELVIN) + ABG VENT MODE (test code = MODEA) AC ABG VENT RESP RATE (test cod e = RRA) 20 /MIN ABG TIDAL VOLUME (test code = TVA) 450 ml ABG PEEP (test code = PEEPA) 8 cmH2O ABG SITE (test code = SITEA) Art Line MABEL'S TEST (test code = ALLENS) N/A BASIC METABOLIC [id number] 21:03:00* Test Item Value Reference Range Interpretation [...] = POCGLU) 301 MG/DL 70-110 H HEMOGLOBIN [id number] 21:03:00* Test Item Value Reference Range Interpretation Comme nts HEMOGLOBIN ABG (test code = HGB/ABG) 14.4 G/DL 12.5-16.9 N [id number] 21:03:00* Test Item Value Reference Range Interpretation Comme nts HEMATOCRIT (test code = HCT/ABG) 42 % 37.5-50.7 N POC LACTIC [id number] 21:03:00* Test Item Value Reference Range Interpretation Comme nts POC LACTIC ACID (test code = POCLAC) 2.3 mmol/l 0.9-1.7 H - XR CHEST 1 [id number] 20:28:00 [facility] : 1955 Sex: M FAX: Nathaniel Shirley MD [phone] [place]: St: [facility] FAX: Eleonora Mai MD [phone] FAX:Denise Montejo MD Name: MINDY CARTER [facility] : 1955 Age/S: 67/M [address] [place] [address] Blvd Unit #: [id number] Loc: [place] [address] Phys: Nathaniel Martel MD Acct: [id number] Dis Date: Status: ADM IN PHONE #: [phone] Exam Date: 06/11/20231950 FAX #: [phone] Reason: MISSING 8-0 PROLENE EXAMS: CPT CODE: [id number] XR CHEST 1 V 39060 CLINICAL HISTORY: MISSING 8-0 PROLENE. LOCATION: A1 FINDINGS: Comparison is made with a previous study dated June 11, 2023. A portable AP view ofthe chest is dated 06/11/2023 at 1947 hours. There is stable mild cardiomegaly. There is an endotracheal tube in appropriate position with its tip 4.7 cm superior to the gregg. There is a left chest tube. Colt-Chacorta catheter is in place. There is central vascular congestion and diffuse interstitial prominence with mild/moderate bibasilar atelectasis/infiltrates. No pleural effusions. Post sternotomy changes are noted. Surgical clip or staple is seen overlying the medial left upper quadrant of the abdomen which could be exterior to the patient. IMPRESSION: 1. There is central vascular congestion and diffuse interstitial prominence with mild/moderate bibasilar atelectasis/infiltrates. 2. Tubesand lines as described above. 3. No definite internal radiopaque foreign bodies are identified. The findings of this study were discussed with the OR nurse and anesthesiologist. at 2027 Reported and signed by: Irwin Aaron M.D.CC: Nathaniel Martel MD; Eleonora Mai MD; Denise Montejo MD Technologist: Rylee Muller, RT(R); Moncho Melvin RT(R) Trnscrd Date/Time/By: 06/11/2023 (2027) : By: [email or web address] Orig Print D/T: S: 06/11/2023 (2030) PAGE 1 Signed ReportPOC ARTERIAL BLOOD [id number] 20:02:00 * Test Item Value Reference Range Interpretation Comme nts POC ARTERIAL BLOOD GAS PH (t est code = POCPHA) 7.424 7.35-7.45 N POC ARTERIAL BLOOD GAS PCO2 (test code = VVLUFP5Y) 32.5 mmHg 35.0-45 L POC TCO2 ARTERIAL (test code = POCTCO2) 22.3 POC ARTERIAL BLOOD GAS PO2 ( test code = DCPAH2T) 134.0 mmHg 80-100.0 H POC HCO3 ARTERIAL (test code = TBOEWV2A) 21.3 MMOL/L 22.0-26.0 L POC BASE EXCESS (test code = POCBEA) -2.6 MMOL/L -4.0-4.0 N POC O2 SATURATION (test code = POCO2S) 99.1 % 90-100 N BASIC METABOLIC [id number] 20:02:00* Test Item Value Reference Range Interpretation [...] = POCGLU) 250 MG/DL 70-110 H HEMOGLOBIN [id number] 20:02:00* Test Item Value Reference Range Interpretation Comme nts HEMOGLOBIN ABG (test code = HGB/ABG) 9.0 G/DL 12.5-16.9 L [id number] 20:02:00* Test Item Value Reference Range Interpretation Comme nts HEMATOCRIT (test code = HCT/ABG) 27 % 37.5-50.7 L POC LACTIC [id number] 20:02:00* Test Item Value Reference Range Interpretation Comme nts POC LACTIC ACID (test code = POCLAC) 2.1 mmol/l 0.9-1.7 H [id number] 20:00:00* Test Item Value Reference Range Interpretation Comme nts ACT-ISTAT (test code = ACTI) 141 SEC 74-137 H Performed by cer tified dishing machine operator at [facility] [id number]-[id number] 19:22:00* Test Item Value Reference Range Interpretation Comme nts ACT-ISTAT (test code = ACTI) 590 SEC 74-137 H Performed by cer [employer] dishing machine operator at [facility] POC ARTERIAL BLOOD [id number] 19:10:00* Test Item Value Reference Range Interpretation Comme nts POC ARTERIAL BLOOD GAS PH (t est code = POCPHA) 7.460 7.35-7.45 H POC ARTERIAL BLOOD GAS PCO2 (test code = YLJUCU1U) 38.2 mmHg 35.0-45 N POC TCO2 ARTERIAL (test code = POCTCO2) 28.4 POC ARTERIAL BLOOD GAS PO2 ( test code = FNVJK3Y) 235.3 mmHg 80-100.0 HH POC HCO3 ARTERIAL (test code = EIXZHD7J) 27.2 MMOL/L 22.0-26.0 H POC BASE EXCESS (test code = POCBEA) 3.2 MMOL/L -4.0-4.0 N POC O2 SATURATION (test code = POCO2S) 99.9 % 90-100 N BASIC METABOLIC [id number] 19:10:00* Test Item Value Reference Range Interpretation [...] = POCGLU) 202 MG/DL 70-110 H HEMOGLOBIN [id number] 19:10:00* Test Item Value Reference Range Interpretation Comme nts HEMOGLOBIN ABG (test code = HGB/ABG) 10.1 G/DL 12.5-16.9 L [id number] 19:10:00* Test Item Value Reference Range Interpretation Comme nts HEMATOCRIT (test code = HCT/ABG) 30 % 37.5-50.7 L POC LACTIC [id number] 19:10:00* Test Item Value Reference Range Interpretation Comme nts POC LACTIC ACID (test code = POCLAC) 1.0 mmol/l 0.9-1.7 N [id number] 18:56:00* Test Item Value Reference Range Interpretation Comme nts ACT-ISTAT (test code = ACTI) 650 SEC 74-137 H Performed by cer tified dishing machine operator at [facility] POC ARTERIAL BLOOD [id number] 18:48:00* Test Item Value Reference Range Interpretation Comme nts POC ARTERIAL BLOOD GAS PH (t est code = POCPHA) 7.428 7.35-7.45 N POC ARTERIAL BLOOD GAS PCO2 (test code = QKQKWF4Z) 41.4 mmHg 35.0-45 N POC TCO2 ARTERIAL (test code = POCTCO2) 28.6 POC ARTERIAL BLOOD GAS PO2 ( test code = OKEGJ3H) 431.5 mmHg 80-100.0 HH POC HCO3 ARTERIAL (test code = MNLCHN1G) 27.4 MMOL/L 22.0-26.0 H POC BASE EXCESS (test code = POCBEA) 2.7 MMOL/L -4.0-4.0 N POC O2 SATURATION (test code = POCO2S) 100.0 % 90-100 N BASIC METABOLIC [id number] 18:48:00* Test Item Value Reference Range Interpretation [...] = POCGLU) 172 MG/DL 70-110 H HEMOGLOBIN [id number] 18:48:00* Test Item Value Reference Range Interpretation Comme nts HEMOGLOBIN ABG (test code = HGB/ABG) 10.1 G/DL 12.5-16.9 L [id number] 18:48:00* Test Item Value Reference Range Interpretation Comme nts HEMATOCRIT (test code = HCT/ABG) 30 % 37.5-50.7 L POC LACTIC [id number] 18:48:00* Test Item Value Reference Range Interpretation Comme nts POC LACTIC ACID (test code = POCLAC) < 0.3 mmol/l 0.9-1.7 L [id number] 18:37:00* Test Item Value Reference Range Interpretation Comme nts ACT-ISTAT (test code = ACTI) 574 SEC 74-137 H Performed by cer tified dishing machine operator at [facility] POC ARTERIAL BLOOD [id number] 18:20:00* Test Item Value Reference Range Interpretation Comme nts POC ARTERIAL BLOOD GAS PH (t est code = POCPHA) 7.404 7.35-7.45 N POC ARTERIAL BLOOD GAS PCO2 (test code = RHSFXY0A) 34.4 mmHg 35.0-45 L POC TCO2 ARTERIAL (test code = POCTCO2) 22.6 POC ARTERIAL BLOOD GAS PO2 ( test code = CBDQT1D) 156.7 mmHg 80-100.0 H POC HCO3 ARTERIAL (test code = NUNLOD2J) 21.5 MMOL/L 22.0-26.0 L POC BASE EXCESS (test code = POCBEA) -2.7 MMOL/L -4.0-4.0 N POC O2 SATURATION (test code = POCO2S) 99.4 % 90-100 N BASIC METABOLIC [id number] 18:20:00* Test Item Value Reference Range Interpretation [...] = POCGLU) 143 MG/DL 70-110 H HEMOGLOBIN [id number] 18:20:00* Test Item Value Reference Range Interpretation Comme nts HEMOGLOBIN ABG (test code = HGB/ABG) 10.4 G/DL 12.5-16.9 L [id number] 18:20:00* Test Item Value Reference Range Interpretation Comme nts HEMATOCRIT (test code = HCT/ABG) 30 % 37.5-50.7 L POC LACTIC [id number] 18:20:00* Test Item Value Reference Range Interpretation Comme nts POC LACTIC ACID (test code = POCLAC) 0.6 mmol/l 0.9-1.7 L [id number] 18:00:00* Test Item Value Reference Range Interpretation Comme nts ACT-ISTAT (test code = ACTI) 158 SEC 74-137 H Performed by cer tified dishing machine operator at [facility] [id number] 17:52:00* Test Item Value Reference Range Interpretation Comme nts HEMATOCRIT (test code = HCT/ABG) 30 % 37.5-50.7 L POC LACTIC [id number] 17:52:00* Test Item Value Reference Range Interpretation Comme nts POC LACTIC ACID (test code = POCLAC) 0.5 mmol/l 0.9-1.7 L POC ARTERIAL BLOOD [id number] 17:52:00* Test Item Value Reference Range Interpretation Comme nts POC ARTERIAL BLOOD GAS PH (t est code = POCPHA) 7.371 7.35-7.45 N POC ARTERIAL BLOOD GAS PCO2 (test code = WYWJJD7D) 35.6 mmHg 35.0-45 N POC TCO2 ARTERIAL (test code = POCTCO2) 21.7 POC ARTERIAL BLOOD GAS PO2 ( test code = AUELC6M) 126.6 mmHg 80-100.0 H POC HCO3 ARTERIAL (test code = GUWERB3S) 20.6 MMOL/L 22.0-26.0 L POC BASE EXCESS (test code = POCBEA) -4.1 MMOL/L -4.0-4.0 L POC O2 SATURATION (test code = POCO2S) 98.8 % 90-100 N BASIC METABOLIC [id number] 17:52:00* Test Item Value Reference Range Interpretation [...] = POCGLU) 128 MG/DL 70-110 H HEMOGLOBIN [id number] 17:52:00* Test Item Value Reference Range Interpretation Comme [facility] HEMOGLOBIN ABG (test code = HGB/ABG) 10.0 G/DL 12.5-16.9 L GLUCOSE [id number] 15:36:00* Test Item Value Reference Range Interpretation Comme nts GLUCOSE BEDSIDE (test code = GLUBED) 180 MG/DL 70-110 H Performed by cer tified dishing machine operator at [facility] GLUCOSE [id number] 11:46:00* Test Item Value Reference Range Interpretation Comme [facility] GLUCOSE BEDSIDE (test code = GLUBED) 218 MG/DL 70-110 H Performed by cer tified dishing machine operator at [facility] THROMBOPLASTIN TIME [id number] 10:03:00* Test Item Value Reference Range Interpretation Comme nts THROMBOPLASTIN TIME PARTIAL (test code = PTT) 73.2 Seconds 25.0-39.5 H Therapeutic Rang e: 50.4 - 88.3 Seconds Effective 07/12/2018 - XR CHEST 1 [id number] 09:40:00 [facility] 1955 Sex: M FAX: Nathaniel Shirley MD [phone] [place]: St: ADM FAX: Eleonora Mai MD [phone] FAX:Denise Motnejo MD Name: MINDY CARTER [facility] : 1955 Age/S: 67/M [address] [place] [address] Blvd Unit #: [id number] Loc: G.3360 [place] [address] Phys: Nathaniel Martel MD Acct: [id number] Dis Date: Status: ADM IN PHONE #: [phone] Exam Date: 06/11/2023927 FAX #: [phone] Reason: Cardiac Surgery Pre Op EXAMS: CPT CODE: [id number] XR CHEST 1 V 25118 EXAM: CHEST ONE VIEW INDICATION: Cardiac Surgery [...] Mai MD; Denise Montejo MD Technologist: RT Justen(Penelope) Trnscrd Date/Time/By: 06/11/2023 (2093) : By: [email or web address] Orig Print D/T: S: 06/11/2023 (5282) PAGE 1 Signed ReportGLUCOSE [id number] 08:01:00* Test Item Value Reference Range Interpretation Comme nts GLUCOSE BEDSIDE (test code = GLUBED) 223 MG/DL 70-110 H Performed by cer tified dishing machine operator at [facility] COMPREHENSIVE METABOLIC [id number] 05:32:00* Test Item Value Reference Range Interpretation [...] code = ALKP) 121 IUnit/L 20-125 N [id number] 05:32:00* Test Item Value Reference Range Interpretation Comme [facility] MAGNESIUM (test code = MAG) 1.84 mg/dL 1.6-2.6 N B-TYPE NATRIURETIC [id number] 05:22:00* Test Item Value Reference Range Interpretation Comme [facility] B-TYPE NATRIURETIC PEPTIDE ( test code = BNP) 224.0 PG/ML 0-100 H PROTHROMBIN [id number] 05:02:00* Test Item Value Reference Range Interpretation Comme [facility] PROTHROMBIN TIME PATIENT (test code = [...] Infarction (to prevent recurrent infarct). THROMBOPLASTIN TIME [id number] 05:02:00* Test Item Value Reference Range Interpretation Comme [facility] THROMBOPLASTIN TIME PARTIAL (test code = PTT) 52.9 Seconds 25.0-39.5 H Therapeutic Rang e: 50.4 - 88.3 Seconds Effective 07/12/2018 CBC W/AUTO [id number] 04:52:00* Test Item Value Reference Range Interpretation [...] NRBC#) 0.00 x10 3/uL 0.0-0.1 N GLUCOSE [id number] 20:24:00* Test Item Value Reference Range Interpretation Comme nts GLUCOSE BEDSIDE (test code = GLUBED) 259 MG/DL 70-110 H Performed by cer tified dishing machine operator at [facility] GLUCOSE [id number] 17:20:00* Test Item Value Reference Range Interpretation Comme nts GLUCOSE BEDSIDE (test code = GLUBED) 138 MG/DL 70-110 H Performed by cer tified dishing machine operator at [facility] COVID 19 Asymptomatic IH [id number] 17:07:00* Test Item Value Reference Range Interpretation [...] perform moderate, high or waivedcomplexity tests. GLUCOSE [id number] 11:50:00* Test Item Value Reference Range Interpretation Comme nts GLUCOSE BEDSIDE (test code = GLUBED) 310 MG/DL 70-110 H Performed by cer tified dishing machine operator at [facility] GLUCOSE [id number] 09:15:00* Test Item Value Reference Range Interpretation Comme nts GLUCOSE BEDSIDE (test code = GLUBED) 266 MG/DL 70-110 H Performed by cer tified dishing machine operator at [facility] GLUCOSE [id number] 08:45:00* Test Item Value Reference Range Interpretation Comme nts GLUCOSE BEDSIDE (test code = GLUBED) 231 MG/DL 70-110 H Performed by cer raul dishing machine operator at [facility] BASIC METABOLIC [id number] 05:23:00* Test Item Value Reference Range Interpretation [...] CA) 8.8 mg/dL 8.0-10.5 N HEPATIC FUNCTION [id number] 05:23:00* Test Item Value Reference Range Interpretation [...] (test cod e = BILIND) 0.40 MG/DL [id number] 05:23:00* Test Item Value Reference Range Interpretation Comme nts MAGNESIUM (test code = MAG) 1.72 mg/dL 1.6-2.6 N THROMBOPLASTIN TIME [id number] 05:02:00* Test Item Value Reference Range Interpretation Comme nts THROMBOPLASTIN TIME PARTIAL (test code = PTT) 59.1 Seconds 25.0-39.5 H Therapeutic Rang e: 50.4 - 88.3 Seconds Effective 07/12/2018 CBC W/AUTO [id number] 04:54:00* Test Item Value Reference Range Interpretation [...] NRBC#) 0.00 x10 3/uL 0.0-0.1 N GLUCOSE [id number] 20:26:00* Test Item Value Reference Range Interpretation Comme nts GLUCOSE BEDSIDE (test code = GLUBED) 239 MG/DL 70-110 H Performed by cer tified dishing machine operator at [facility] GLUCOSE [id number] 16:26:00* Test Item Value Reference Range Interpretation Comme nts GLUCOSE BEDSIDE (test code = GLUBED) 384 MG/DL 70-110 H Performed by cer tified dishing machine operator at [facility] GLUCOSE [id number] 12:47:00* Test Item Value Reference Range Interpretation Comme nts GLUCOSE BEDSIDE (test code = GLUBED) 317 MG/DL 70-110 H Performed by cer tified dishing machine operator at [facility] GLUCOSE [id number] 08:58:00* Test Item Value Reference Range Interpretation Comme nts GLUCOSE BEDSIDE (test code = GLUBED) 269 MG/DL 70-110 H Performed by cer tified dishing machine operator at [facility] BASIC METABOLIC [id number] 06:34:00* Test Item Value Reference Range Interpretation [...] code = CA) 9.0 mg/dL 8.0-10.5 N [id number] 06:34:00* Test Item Value Reference Range Interpretation Comme nts MAGNESIUM (test code = MAG) 1.76 mg/dL 1.6-2.6 N THROMBOPLASTIN TIME [id number] 06:09:00* Test Item Value Reference Range Interpretation Comme nts THROMBOPLASTIN TIME PARTIAL (test code = PTT) 62.5 Seconds 25.0-39.5 H Therapeutic Rang e: 50.4 - 88.3 Seconds Effective 07/12/2018 CBC W/AUTO [id number] 05:59:00* Test Item Value Reference Range Interpretation [...] NRBC#) 0.00 x10 3/uL 0.0-0.1 N GLUCOSE [id number] 22:41:00* Test Item Value Reference Range Interpretation Comme nts GLUCOSE BEDSIDE (test code = GLUBED) 326 MG/DL 70-110 H Performed by cer tified dishing machine operator at [facility] GLUCOSE [id number] 20:26:00* Test Item Value Reference Range Interpretation Comme nts GLUCOSE BEDSIDE (test code = GLUBED) 313 MG/DL 70-110 H Performed by cer tified dishing machine operator at [facility] GLUCOSE [id number] 16:27:00* Test Item Value Reference Range Interpretation Comme nts GLUCOSE BEDSIDE (test code = GLUBED) 343 MG/DL 70-110 H Performed by cer tified dishing machine operator at [facility] GLUCOSE [id number] 12:56:00* Test Item Value Reference Range Interpretation Comme nts GLUCOSE BEDSIDE (test code = GLUBED) 333 MG/DL 70-110 H Performed by cer tified dishing machine operator at [facility] GLUCOSE [id number] 07:54:00* Test Item Value Reference Range Interpretation Comme nts GLUCOSE BEDSIDE (test code = GLUBED) 245 MG/DL 70-110 H Performed by cer tified dishing machine operator at [facility] BASIC METABOLIC [id number] 06:03:00* Test Item Value Reference Range Interpretation [...] code = CA) 9.1 mg/dL 8.0-10.5 N [id number] 06:03:00* Test Item Value Reference Range Interpretation Comme nts MAGNESIUM (test code = MAG) 1.89 mg/dL 1.6-2.6 N CBC W/AUTO [id number] 05:31:00* Test Item Value Reference Range Interpretation [...] 0.00 x10 3/uL 0.0-0.1 N THROMBOPLASTIN TIME [id number] 05:26:00* Test Item Value Reference Range Interpretation Comme nts THROMBOPLASTIN TIME PARTIAL (test code = PTT) 61.5 Seconds 25.0-39.5 H Therapeutic Rang e: 50.4 - 88.3 Seconds Effective 07/12/2018 GLUCOSE [id number] 20:14:00* Test Item Value Reference Range Interpretation Comme nts GLUCOSE BEDSIDE (test code = GLUBED) 246 MG/DL 70-110 H Performed by cer tified dishing machine operator at [facility] GLUCOSE [id number] 16:51:00* Test Item Value Reference Range Interpretation Comme nts GLUCOSE BEDSIDE (test code = GLUBED) 280 MG/DL 70-110 H Performed by cer tified dishing machine operator at [facility] GLUCOSE [id number] 12:27:00* Test Item Value Reference Range Interpretation Comme nts GLUCOSE BEDSIDE (test code = GLUBED) 248 MG/DL 70-110 H Performed by cer tified dishing machine operator at [facility] GLUCOSE [id number] 08:02:00* Test Item Value Reference Range Interpretation Comme nts GLUCOSE BEDSIDE (test code = GLUBED) 229 MG/DL 70-110 H Performed by cer tified dishing machine operator at [facility] BASIC METABOLIC [id number] 04:25:00* Test Item Value Reference Range Interpretation [...] code = CA) 8.3 mg/dL 8.0-10.5 N [id number] 04:25:00* Test Item Value Reference Range Interpretation Comme nts MAGNESIUM (test code = MAG) 1.87 mg/dL 1.6-2.6 N THROMBOPLASTIN TIME [id number] 04:18:00* Test Item Value Reference Range Interpretation Comme nts THROMBOPLASTIN TIME PARTIAL (test code = PTT) 57.6 Seconds 25.0-39.5 H Therapeutic Rang e: 50.4 - 88.3 Seconds Effective 07/12/2018 CBC W/AUTO [id number] 03:51:00* Test Item Value Reference Range Interpretation [...] NRBC#) 0.00 x10 3/uL 0.0-0.1 N GLUCOSE [id number] 20:32:00* Test Item Value Reference Range Interpretation Comme nts GLUCOSE BEDSIDE (test code = GLUBED) 239 MG/DL 70-110 H Performed by cer tified dishing machine operator at [facility] GLUCOSE [id number] 16:25:00* Test Item Value Reference Range Interpretation Comme nts GLUCOSE BEDSIDE (test code = GLUBED) 217 MG/DL 70-110 H Performed by cer tified dishing machine operator at [facility] GLUCOSE [id number] 13:03:00* Test Item Value Reference Range Interpretation Comme nts GLUCOSE BEDSIDE (test code = GLUBED) 284 MG/DL 70-110 H Performed by cer tified dishing machine operator at [facility] HEPATITIS C RNA BY [id number] 10:08:00* Test Item Value Reference Range Interpretation Comme [facility] HEPATITIS C RNA BY PCR-QUAL (test code = HCVRNAPCR) HCV Not Detected IU/mL See_Comment No evidence of active HCV infection. [Automated message] The system which generated this result transmitted reference range: (). The reference range was not used to interpret this result as normal/abnormal. GLUCOSE [id number] 08:59:00* Test Item Value Reference Range Interpretation Comme [facility] GLUCOSE BEDSIDE (test code = GLUBED) 182 MG/DL 70-110 H Performed by cer tified dishing machine operator at [facility] BASIC METABOLIC [id number] 05:47:00* Test Item Value Reference Range Interpretation [...] code = CA) 8.3 mg/dL 8.0-10.5 N [id number] 05:47:00* Test Item Value Reference Range Interpretation Comme nts MAGNESIUM (test code = MAG) 1.86 mg/dL 1.6-2.6 N CBC W/AUTO [id number] 05:21:00* Test Item Value Reference Range Interpretation [...] 0.00 x10 3/uL 0.0-0.1 N THROMBOPLASTIN TIME [id number] 05:20:00* Test Item Value Reference Range Interpretation Comme nts THROMBOPLASTIN TIME PARTIAL (test code = PTT) 61.6 Seconds 25.0-39.5 H Therapeutic Rang e: 50.4 - 88.3 Seconds Effective 07/12/2018 THROMBOPLASTIN TIME [id number] 21:44:00* Test Item Value Reference Range Interpretation Comme nts THROMBOPLASTIN TIME PARTIAL (test code = PTT) 58.7 Seconds 25.0-39.5 H Therapeutic Rang e: 50.4 - 88.3 Seconds Effective 07/12/2018 GLUCOSE [id number] 20:44:00* Test Item Value Reference Range Interpretation Comme nts GLUCOSE BEDSIDE (test code = GLUBED) 242 MG/DL 70-110 H Performed by cer katiuskaied dishing machine operator at [facility] GLUCOSE [id number] 16:54:00* Test Item Value Reference Range Interpretation Comme nts GLUCOSE BEDSIDE (test code = GLUBED) 218 MG/DL 70-110 H Performed by linda carter dishing machine operator at [facility] - DUP EXTRACRANIAL [id number] 16:13:00 [facility] : 1955 Sex: M Name: MINDY CARTER [facility] : 1955 Age/S: 67 / M [address] [place] [address] Blvd Unit #:[id number] Loc: [place] [address] Phys: Nathaniel Martel MD Acct: [id number] Dis Date: Status: ADM IN PHONE #: [phone] Exam Date: 06/05/20234 FAX #: [phone] Reason: Cardiac Surgery Pre Op EXAMS: CPT CODE: [id number] DUP EXTRACRANIAL BETH 31945 EXAM: - DUP EXTRACRANIAL BETH LOCATION: H101 [...] RIGHT VERTEBRAL - Antegrade LEFT VERTEBRAL - Antegrade IMPRESSION: 1. No hemodynamically significant stenosis of the extracranial internal carotid arteries. at 1613 Reported and signed by: Windy Verduzco M.D. PAGE 1 Signed Report (CONTINUED) Name: MINDY CARTER [facility] : 1955 Age/S: 67 / M [address] [place] [address] Unit #: [id number] Loc: [place] [address] Phys: Nathaniel Martel MD Acct: [id number] Dis Date: Status: ADM IN PHONE #: [phone] Exam Date: 06/05/2023 1314 FAX #: [phone] Reason: Cardiac Surgery Pre Op EXAMS: CPT CODE: [id number] DUP EXTRACRANIAL BETH 12927 (Continued) CC: Nathaniel Martel MD; Eleonora Mai MD; Denise Montejo MD Technologist: Luz Elena Farrell RDMS(AB)(OB) Trnscb Date/Time: 06/05/2023 (1613) t.SDR.TH15 Orig Print D/T: S: 06/05/2023 (1616) Probe: PAGE 2 Signed ReportTHROMBOPLASTIN TIME [id number] 14:56:00* Test Item Value Reference Range Interpretation Comme nts THROMBOPLASTIN TIME PARTIAL (test code = PTT) 70.9 Seconds 25.0-39.5 H Therapeutic Rang e: 50.4 - 88.3 Seconds Effective 07/12/2018 - DUP VEIN [id number] 14:08:00 [facility] : 1955 Sex: MName: [facility] 1955 Age/S: 67 / M [address] [place] [address] Unit #:[id number] Loc: [place] [address] Phys: Nathaniel Martel MD Acct: [id number] Dis Date: Status: ADM IN PHONE #: [phone] Exam Date: 06/05/20231313 FAX #: [phone] Reason: Cardiac Surgery Pre Op EXAMS: CPT CODE: [id number] DUP VEIN BETH 33082 EXAMINATION: - DUP VEIN BETH CLINICAL INDICATION:Male, 67 years old with Cardiac Surgery Pre Op TECHNIQUE: Grayscale, color Doppler, and spectral waveform analysis of the right lower extremity venous system was performed. COMPARISON: None FINDINGS:Vascular: Sonographic interrogation of the lower extremity venous system demonstrates appropriate fl ow. Right lower extremity GSV: Proximal thigh 6 mm Mid thigh 3 mm Distal thigh 3 mm Proximal calf 2mm Mid calf 1 mm Distal calf 1 [...] above. at 1408 Reported and signed by: Vadmi Coelho M.D. PAGE 1 Signed Report (CONTINUED) Name: [facility] 1955 Age/S: 67 / M [address] [place] [address] Unit #: [id number] Loc: [place] [address] Phys: Nathaniel Martel MD Acct: [id number] Dis Date: Status: ADM IN PHONE #: [phone] Exam Date: 06/05/20231313 FAX #: [phone] Reason: Cardiac Surgery Pre Op EXAMS: CPT CODE: [id number] DUP VEIN BETH 99028 (Continued) CC: Nathaniel Martel MD; Eleonora Mai MD; Denise Montejo MD Technologist: Luz Elena Frarell RDMS(AB)(OB) Trnscb Date/Time: 06/05/2023 (3792) LandyJH12 Orig Print D/T: S: 06/05/2023 (4764) Probe: PAGE 2 Signed Report GLUCOSE [id number] 12:02:00* Test Item Value Reference Range Interpretation Comme nts GLUCOSE BEDSIDE (test code = GLUBED) 240 MG/DL 70-110 H Performed by cer tified dishing machine operator at [facility] B-TYPE NATRIURETIC [id number] 06:09:00* Test Item Value Reference Range Interpretation Comme nts B-TYPE NATRIURETIC PEPTIDE ( test code = BNP) 311.0 PG/ML 0-100 H UA RFLX MICR CULT IF [id number] 05:45:00* Test Item Value Reference Range Interpretation [...] Pain RiskForSepsis-no oth srcSpecimen Description: CLEAN CATCHPROTHROMBIN [id number] 05:44:00* Test Item Value Reference Range Interpretation [...] Infarction (to prevent recurrent infarct). THROMBOPLASTIN TIME [id number] 05:44:00* Test Item Value Reference Range Interpretation Comme nts THROMBOPLASTIN TIME PARTIAL (test code = PTT) 76.7 Seconds 25.0-39.5 H Therapeutic Rang e: 50.4 - 88.3 Seconds Effective 07/12/2018 COMPREHENSIVE METABOLIC [id number] 05:41:00* Test Item Value Reference Range Interpretation [...] = LDL) 72.0 mg/dL 0-100 N <100 PLDYSTN61 0-129 NEAR OPTIMAL/ABOVE [id number] WKAJDLFYYO501-147 HIGH>MO=939 VERY HIGH*Guidelines provided by the National Cholesterol EducationProgram Adult Treatment Panel III CBC W/AUTO [id number] 05:22:00* Test Item Value Reference Range Interpretation [...] while on heparin drip- XR CHEST 1 [id number] 22:49:00 [facility] : 1955 Sex: M FAX: Nathaniel Shirley MD [phone] [place]: St: ADM FAX: Eleonora Mai MD [phone] FAX: Denise Montejo MD Name: MINDY CARTER [facility] : 1955 Age/S: 67/M [address] [place] [address] Blvd Unit #: [id number] Loc: [address] [place] [address] Phys: Nathaniel Martel MD Acct: [id number] Dis Date: Status: ADM IN PHONE #: [phone] Exam Date: 06/04/2023 1756 FAX #: [phone] Reason: Cardiac Surg gina Pre Op EXAMS: CPT CODE: [id number] XR CHEST 1 V 42301 HISTORY: Cardiac surgery. Location code: B2 FINDINGS: Frontal view of the chest demonstrates minimally enlarged cardiomediastinal silhouette.The trachea is midline. Mild left basilar atelectasis. The lungs are otherwise clear. There is no effusion or pneumothorax. The bones are intact. IMPRESSION: Mild left basilar atelectasis at 9311 Reported and signed by: Erick Hogan M.D. CC: Nathaniel Martel MD; Eleonora Mai MD; Denise Montejo MD Technologist: RT Maryse(Penelope)Trnscrd Date/Time/By: 06/04/2023 (2248) : By: [email or web address].[email or web address] Orig Print D/T: S: 06/04/2023 (9459) PAGE 1 Signed Report - CT CHEST W/O [id number] 21:49:00 [facility] : 1955 Sex: M Name: MINDY CARTER [facility] : 1955 Age/S: 67 / M [facility] Unit #: [id number] Loc: [place] [address] Phys: Nathaniel Martel MD Acct: [id number] Dis Date: Status: ADMIN PHONE #: [phone] Exam Date: 06/04/2023 1638 FAX #: [phone] Reason: Cardiac Surgery Pre Op EXAMS: CPT CODE: [id number] CT CHEST W/O CONTRAST 56576 EXAMINATION: - CT CHEST W/O CONTRAST CLINICAL [...] tissue abnormality of the chest is demonstrated. PAGE1 Signed Report (CONTINUED) Name: MINDY CARTER [facility] : 1955 Age/S: 67 / M [address] [place] [address] Unit #: [id number] Loc: [place] [address] Phys: Nathaniel Martel MD Acct: [id number] Dis Date: Status: ADM IN PHONE #: [phone] Exam Date: 06/04/2023 1638 FAX #: [phone] Reason: Cardiac Surgery Pre Op EXAMS: CPT CODE: [id number] CT CHEST W/O CONTRAST 45101 (Continued)Upper Abdomen: Abdomen: Cirrhotic change of the liver is identified. Heterogeneous density noted. Ch olelithiasis. Bones: No acute abnormality or suspicious bony lesion. IMPRESSION: 1. Patchy areas ofgroundglass attenuation bilaterally suggest pneumonitis, possibly viral. 2. Left lower lobe nodularity is present, follow-up noncontrast chest CT in 3-6 months recommended. Additional recommendationsabove. at 2148 Reported and signed by: Vadim Coelho M.D. CC: Nathaniel Martel MD; Eleonora Mai MD; Denise Montejo MD Technologist:Jm Alexander Jr, RT(R)(CT) CTDI: DLP: Trnscb Date/Time: 06/04/2023 (2148) [id number] Orig Print D/T: S: 06/04/2023 (2151) PAGE 2 Signed ReportGLUCOSE [id number] 19:20:00* Test Item Value Reference Range Interpretation Comme nts GLUCOSE BEDSIDE (test code = GLUBED) 284 MG/DL 70-110 H Performed by cer tified dishing machine operator at [facility] GLUCOSE [id number] 17:02:00* Test Item Value Reference Range Interpretation Comme nts GLUCOSE BEDSIDE (test code = GLUBED) 236 MG/DL 70-110 H Performed by cer tified dishing machine operator at [facility] GLUCOSE [id number] 12:21:00* Test Item Value Reference Range Interpretation Comme nts GLUCOSE BEDSIDE (test code = GLUBED) 301 MG/DL 70-110 H Performed by [facility] avera tified dishing machine operator at [facility] THROMBOPLASTIN TIME [id number] 10:12:00* Test Item Value Reference Range Interpretation Comme nts THROMBOPLASTIN TIME PARTIAL (test code = PTT) 74.9 Seconds 25.0-39.5 H Therapeutic Rang e: 50.4 - 88.3 Seconds Effective 07/12/2018 COMMENTS: COMPARE PTT TO PTS HEPRINE PARAMETERS. KEEP PTT WITHIN GOAL:55-75 GLUCOSE [id number] 07:29:00* Test Item Value Reference Range Interpretation Comme nts GLUCOSE BEDSIDE (test code = GLUBED) 188 MG/DL 70-110 H Performed by cer raul dishing machine operator at [facility] COMPREHENSIVE METABOLIC [id number] 04:27:00* Test Item Value Reference Range Interpretation [...] code = ALKP) 144 IUnit/L 20-125 H [id number] 04:27:00* Test Item Value Reference Range Interpretation Comme nts MAGNESIUM (test code = MAG) 1.82 mg/dL 1.6-2.6 N CBC W/AUTO [id number] 04:03:00* Test Item Value Reference Range Interpretation [...] N COMMENTS: Daily while on heparin dripGLUCOSE [id number] 19:09:00* Test Item Value Reference Range Interpretation Comme nts GLUCOSE BEDSIDE (test code = GLUBED) 272 MG/DL 70-110 H Performed by iContact dishing machine operator at [facility] GLUCOSE [id number] 17:43:00* Test Item Value Reference Range Interpretation Comme nts GLUCOSE BEDSIDE (test code = GLUBED) 239 MG/DL 70-110 H Performed by iContact dishing machine operator at [facility] GLUCOSE [id number] 12:25:00* Test Item Value Reference Range Interpretation Comme nts GLUCOSE BEDSIDE (test code = GLUBED) 290 MG/DL 70-110 H Performed by iContact dishing machine operator at [facility] THROMBOPLASTIN TIME [id number] 10:22:00* Test Item Value Reference Range Interpretation Comme nts THROMBOPLASTIN TIME PARTIAL (test code = PTT) 69.0 Seconds 25.0-39.5 H Therapeutic Rang e: 50.4 - 88.3 Seconds Effective 07/12/2018 GLUCOSE [id number] 07:54:00* Test Item Value Reference Range Interpretation Comme nts GLUCOSE BEDSIDE (test code = GLUBED) 190 MG/DL 70-110 H Performed by iContact dishing machine operator at [facility] ACUTE HEPATITIS [id number] 07:02:00* Test Item Value Reference Range Interpretation [...] test is recommended if clinicallyindicated. COMPREHENSIVE METABOLIC [id number] 05:51:00* Test Item Value Reference Range Interpretation [...] ALKP) 141 IUnit/L 20-125 H CBC W/AUTO [id number] 05:35:00* Test Item Value Reference Range Interpretation [...] N COMMENTS: Daily while on heparin dripPROTHROMBIN [id number] 05:31:00* Test Item Value Reference Range Interpretation [...] Infarction (to prevent recurrent infarct). THROMBOPLASTIN TIME [id number] 04:28:00* Test Item Value Reference Range Interpretation Comme nts THROMBOPLASTIN TIME PARTIAL (test code = PTT) 63.5 Seconds 25.0-39.5 H Therapeutic Rang e: 50.4 - 88.3 Seconds Effective 07/12/2018 GLUCOSE [id number] 02:54:00* Test Item Value Reference Range Interpretation Comme nts GLUCOSE BEDSIDE (test code = GLUBED) 296 MG/DL 70-110 H Performed by cer raul dishing machine operator at [facility] THROMBOPLASTIN TIME [id number] 22:20:00* Test Item Value Reference Range Interpretation Comme nts THROMBOPLASTIN TIME PARTIAL (test code = PTT) 52.6 Seconds 25.0-39.5 H Therapeutic Rang e: 50.4 - 88.3 Seconds Effective 07/12/2018 THROMBOPLASTIN TIME [id number] 17:02:00* Test Item Value Reference Range Interpretation Comme [facility] THROMBOPLASTIN TIME PARTIAL (test code = PTT) 79.1 Seconds 25.0-39.5 H Therapeutic Rang e: 50.4 - 88.3 Seconds Effective 07/12/2018 GLUCOSE [id number] 16:16:00* Test Item Value Reference Range Interpretation Comme [facility] GLUCOSE BEDSIDE (test code = GLUBED) 167 MG/DL 70-110 H Performed by cer raul dishing machine operator at [facility] - US ABDOMEN [id number] 15:58:00 [facility] 1955 Sex: M Name: MINDY CARTER [facility] : 1955 Age/S: 67 / M [address] [place] [address] Unit #: [id number] Loc: [place] [address] Phys: Nathaniel Martel MD Acct: [id number] Dis Date: Status: ADM IN PHONE #: [phone] Exam Date: 06/02/2023 1443 FAX #: [phone] Reason: cirrhosis EXAMS:CPT CODE: [id number] US ABDOMEN COMPLETE [id number] Dictation location: C4. COMPLETE ABDOMINAL ULTRASOUND HISTORY: [...] chronic liver disease. Cholecystitis cannot be excluded. [id number] Reported and signed by: Elio Pimentel M.D. CC: Nathaniel Martel MD; Eleonora Mai MD Technologist: Kirsty Banegas RDMS(AB) Trnscb Date/Time: 06/02/2023 (1558) t.SDR.SP17 Orig Print D/T: S: 06/02/2023 (1602) Probe: PAGE 1 Signed ReportGLUCOSE [id number] 11:31:00* Test Item Value Reference Range Interpretation Comme nts GLUCOSE BEDSIDE (test code = GLUBED) 252 MG/DL 70-110 H Performed by linda marcus at [facility] HEPATIC FUNCTION [id number] 10:58:00* Test Item Value Reference Range Interpretation [...] ALKP) 128 IUnit/L 20-125 H THROMBOPLASTIN TIME [id number] 10:48:00* Test Item Value Reference Range Interpretation Comme nts THROMBOPLASTIN TIME PARTIAL (test code = PTT) 71.3 Seconds 25.0-39.5 H Therapeutic Rang e: 50.4 - 88.3 Seconds Effective 07/12/2018 GLUCOSE [id number] 07:49:00* Test Item Value Reference Range Interpretation Comme nts GLUCOSE BEDSIDE (test code = GLUBED) 222 MG/DL 70-110 H Performed by cer raul dishing machine operator at [facility] CBC W/AUTO [id number] 06:05:00* Test Item Value Reference Range Interpretation [...] COMMENTS: Daily while on heparin dripBASIC METABOLIC [id number] 05:50:00* Test Item Value Reference Range Interpretation [...] CA) 8.8 mg/dL 8.0-10.5 N THROMBOPLASTIN TIME [id number] 03:42:00* Test Item Value Reference Range Interpretation Comme nts THROMBOPLASTIN TIME PARTIAL (test code = PTT) 48.0 Seconds 25.0-39.5 H Therapeutic Rang e: 50.4 - 88.3 Seconds Effective 07/12/2018 GLUCOSE [id number] 19:59:00* Test Item Value Reference Range Interpretation Comme nts GLUCOSE BEDSIDE (test code = GLUBED) 113 MG/DL 70-110 H Performed by cer tified dishing machine operator at [facility] GLUCOSE [id number] 11:32:00* Test Item Value Reference Range Interpretation Comme nts GLUCOSE BEDSIDE (test code = GLUBED) 160 MG/DL 70-110 H Performed by cer tified dishing machine operator at [facility] GLUCOSE [id number] 08:19:00* Test Item Value Reference Range Interpretation Comme nts GLUCOSE BEDSIDE (test code = GLUBED) 181 MG/DL 70-110 H Performed by cer tified dishing machine operator at [facility] [id number] 07:44:00* Test Item Value Reference Range Interpretation Comme nts HGBA1C% (test code = HGBA1C%) 8.4 %A1C 4.8-6.0 H BASIC METABOLIC [id number] 07:08:00* Test Item Value Reference Range Interpretation [...] be done morning of Heart CathTROP-I HIGH [id number] 07:08:00* Test Item Value Reference Range Interpretation [...] URL. These results were obtained using [employer] IM TnIHreagent. Results from different methodologies should not becompared to one another as quantitative results and URLs mayvary by method. COMMENTS: To be done morning of Heart CathTHROMBOPLASTIN TIME [id number] 06:57:00* Test Item Value Reference Range Interpretation Comme nts THROMBOPLASTIN TIME PARTIAL (test code = PTT) 61.5 Seconds 25.0-39.5 H Therapeutic Rang e: 50.4 - 88.3 Seconds Effective 07/12/2018 CBC W/AUTO [id number] 06:50:00* Test Item Value Reference Range Interpretation [...] morning of Heart CathDRUGS OF ABUSE SCREEN [id number] 01:12:00* Test Item Value Reference Range Interpretation [...] be used for non-medical purposes. THROMBOPLASTIN TIME [id number] 00:21:00* Test Item Value Reference Range Interpretation Comme [facility] THROMBOPLASTIN TIME PARTIAL (test code = PTT) 51.6 Seconds 25.0-39.5 H Therapeutic Rang e: 50.4 - 88.3 Seconds Effective 07/12/2018 TROP-I HIGH [id number] 22:28:00* Test Item Value Reference Range Interpretation [...] URL. These results were obtained using [employer]ens [employer] IM TnIHreagent. Results from different methodologies should not becompared to one another as quantitative results and URLs mayvary by method. GLUCOSE [id number] 22:13:00* Test Item Value Reference Range Interpretation Comme [facility] GLUCOSE BEDSIDE (test code = GLUBED) 164 MG/DL 70-110 H Performed by linda carter dishing machine operator at [facility] TROP-I HIGH [id number] 16:26:00* Test Item Value Reference Range Interpretation Comme [facility] TROP-I HIGH SENSITIVITY (test code = [...] URL. These results were obtained using [employer] IM TnIHreagent. Results from different methodologies should not becompared to one another as quantitative results and URLs mayvary by method. PROTHROMBIN [id number] 16:22:00* Test Item Value Reference Range Interpretation Comme [facility] PROTHROMBIN TIME PATIENT (test code = [...] prior to initiation of heparinComment: infusionTHROMBOPLASTIN TIME [id number] 16:22:00* Test Item Value Reference Range Interpretation Comme nts THROMBOPLASTIN TIME PARTIAL (test code = PTT) 35.8 Seconds 25.0-39.5 N Therapeutic Rang e: 50.4 - 88.3 Seconds Effective 07/12/2018 COMMENTS: STAT if not done within 24 hours prior to initiation of heparinComment: infusionCBC W/AUTO [id number] 16:09:00* Test Item Value Reference Range Interpretation [...] to initiation of heparin Comment: infusionTHYROID STIMULATING [id number] 13:07:00* Test Item Value Reference Range Interpretation [...] = LDL) 81.0 mg/dL 0-100 N <100 WRVLVHT78 0-129 NEAR OPTIMAL/ABOVE [id number] [id number] HIGH>NV=700 VERY HIGH*Guidelines provided by the National Cholesterol EducationProgram Adult Treatment Panel III LIPOPROTEIN [id number] 12:42:00* Test Item Value Reference Range Interpretation Comme nts LIPOPROTEIN LDL (test code = LDL) 81.0 mg/dL 0-100 N <100 CTQIZNU93 0-129 NEAR OPTIMAL/ABOVE [id number] PSFCNKIPHO352-685 HIGH>ET=554 VERY HIGH*Guidelines provided by the National Cholesterol EducationProgram Adult Treatment Panel III B-TYPE NATRIURETIC [id number] 12:18:00* Test Item Value Reference Range Interpretation Comme nts B-TYPE NATRIURETIC PEPTIDE ( test code = BNP) 771.0 PG/ML 0-100 H - XR CHEST 1 [id number] 12:17:00 [facility] 1955 Sex: M FAX: Mendel Walker MD [phone] [place]: [address]: ADM Name: MINDY CARTER [facility] : 1955 Age/S: 67/M [address] [place] [address] Blvd Unit #: [id number] Loc: [place] [address] Phys: Mendel Walker MD Acct: [id number] Dis Date: Status: ADM IN PHONE #: [phone] Exam Date: 05/31/2023 1145 FAX #: [phone] Reason: SOB EXAMS: CPT CODE: [id number] XR CHEST 1 V 30301 EXAM: CHEST ONE VIEW INDICATION: Shortness of [...] Jean M.D. CC: Mendel Walker MD Technologist: Sinai Farmer RT(R) Trnscrd Date/Time/By: 05/31/2023 (1217) : By: 16 [facility] Print D/T: S: 05/31/2023 (1510) PAGE 1 Signed ReportBASIC METABOLIC [id number] 12:14:00* Test Item Value Reference Range Interpretation [...] code = CA) 8.7 mg/dL 8.0-10.5 N [id number] 12:14:00* Test Item Value Reference Range Interpretation Comme nts MAGNESIUM (test code = MAG) 1.89 mg/dL 1.6-2.6 N TROP-I HIGH [id number] 12:14:00* Test Item Value Reference Range Interpretation Comme nts TROP-I HIGH SENSITIVITY (test code = TROPIHS) 1181 ng/L 0-54 HH Critical result called to AMY TAYLOR RNby [id number] at 1212 05/31/23Nurse read back result and [...] URL. These results were obtained using [employer] IM TnIHreagent. Results from different methodologies should not becompared to one another as quantitative results and URLs mayvary by method. CBC W/AUTO [id number] 11:55:00* Test Item Value Reference Range Interpretation [...] x10 3/uL 0.0-0.1 N POC ARTERIAL BLOOD [id number] 11:43:00* Test Item Value Reference Range Interpretation Comme nts POC ARTERIAL BLOOD GAS PH (t est code = POCPHA) 7.519 7.35-7.45 HH POC ARTERIAL BLOOD GAS PCO2 (test code = SEDVJV7O) 33.4 mmHg 35.0-45 L POC TCO2 ARTERIAL (test code = POCTCO2) 28.2 POC ARTERIAL BLOOD GAS PO2 ( test code = RHFOC2C) 56.3 mmHg 80-100.0 L POC HCO3 ARTERIAL (test code = MUMRRB4O) 27.2 MMOL/L 22.0-26.0 H POC BASE EXCESS (test code = POCBEA) 4.3 MMOL/L -4.0-4.0 H POC O2 SATURATION (test code = POCO2S) 92.0 % 90-100 N ABG DELIVERY (test code = DELVIN) 4L ABG SITE (test code = SITEA) L Radial MABEL'S TEST (test code = ALLENS) Positive HEPATITIS [id number] 11:49:00* Test Item Value Reference Range Interpretation Comme nts HEPATITIS A AB, TOTAL (test code = 59754592) REACTIVE NON-REACTIVE A HEPATITIS B SURFACE ANTIBODY QL (test code = 51583980) NON-REACTIVE NON-REACTIVE N HEPATITIS B SURFACE ANTIGEN (test code = 56511831) NON-REACTIVE NON-REACTIVE N HEPATITIS B CORE AB TOTAL (test code = 75706251) NON-REACTIVE NON-REACTIVE N HEPATITIS C ANTIBODY (test code = 88004188) REACTIVE NON-REACTIVE A Based on this re sult, the sample will be testedfor HCV RNA by a Nucleic Acid Amplification Test (NAAT)to determine if the patient has a current activeinfection. For additional information, please refer to http://education.BlackbookHR.UShealthrecord/faq/FA Q202 (This link is being provided for informational/educatio nal purposes only.) For additional information, please refer to http://education.BlackbookHR.UShealthrecord/faq/FA Q202 (This link is being provided for informational/educatio nal purposes only.) For additional information, please refer to http://education.BlackbookHR.UShealthrecord/faq/FA Q202 (This link is being provided for informational/educatio nal purposes only.) FASTING:[facility]OSPITALLIPID [id number] 11:49:00* Test Item Value Reference Range Interpretation Comme nts CHOLESTEROL, TOTAL (test code = 11862474) 167 mg/dL <200 N HDL CHOLESTEROL (test code = 53394145) 49 mg/dL >=40 N TRIGLYCERIDES (test code = 94040733) 161 mg/dL <150 H LDL-CHOLESTEROL (test code = 14776692) 92 mg/dL (calc) N Reference range: <100 Desirable range <100 mg/dL for primary prevention; <70 mg/dL for patients with CHD or diabetic patients with > or = 2 CHD risk factors. LDL-C is now calculated using the Otis-Tolentino calculation, which is a validated novel method providing better accuracy than the Friedewald equation in the estimation of LDL-C. Otis PEREZ et al. HARDY. 2013;310(19): 5278-8366 (http://education.[employer]pl[employer] Technologies.UShealthrecord /faq/JVQ836) CHOL/HDLC RATIO (test code = 81335302) 3.4 (calc) <5.0 N NON HDL CHOLESTEROL (test code = 02485244) 118 mg/dL (calc) <130 N For patients with diabetes plus 1 major ASCVD risk factor, treating to a non-HDL-C goal of <100 mg/dL (LDL-C of <70 mg/dL) is considered a therapeutic option. FASTING:[facility] HOSPITALCOMP META [id number] 11:49:00* Test Item Value Reference Range Interpretation Comme nts GLUCOSE (test code = 88675487) 167 mg/dL 65-99 H Fasting referenc e interval For someone without known diabetes, a glucosevalue >125 mg/dL indicates that they may havediabetes and this should be confirmed with afollow-up test. UREA NITROGEN (BUN) (test code = 37958984) 33 mg/dL 7-25 H CREATININE (test code = 30534022) 1.14 mg/dL 0.70-1.35 N EGFR (test code = 30337509) 70 mL/min/1.73m2 >=60 N BUN/CREATININE RATIO (test code = 48108444) 29 (calc) 6-22 H SODIUM (test code = 78155046) 140 mmol/L 135-146 N POTASSIUM (test code = 59417894) 4.5 mmol/L 3.5-5.3 N CHLORIDE (test code = 26557250) 101 mmol/L 98-110 N CARBON DIOXIDE (test code = 32428783) 30 mmol/L 20-32 N CALCIUM (test code = 01926033) 9.4 mg/dL 8.6-10.3 N PROTEIN, TOTAL (test code = 50010090) 7.6 g/dL 6.1-8.1 N ALBUMIN (test code = 04845601) 4.4 g/dL 3.6-5.1 N GLOBULIN (test code = 13265262) 3.2 g/dL (calc) 1.9-3.7 N ALBUMIN/GLOBULIN RATIO (test code = 32515024) 1.4 (calc) 1.0-2.5 N BILIRUBIN, TOTAL (test code = 36117024) 0.6 mg/dL 0.2-1.2 N ALKALINE PHOSPHATASE (test code = 03348907) 123 U/L 35-144 N AST (test code = 49428231) 23 U/L 10-35 N ALT (test code = 36225299) 23 U/L 9-46 N FASTING:[facility] HOSPITALHEMOGLOBIN [id number] 11:49:00* Test Item Value Reference Range Interpretation Comme nts HEMOGLOBIN A1c (test code = 10939725) TNP/1665 N TEST NOT PERFOR MED Unable to perform the requested add-on test(s). The sample is no longer available. FASTING:[facility] CENTERCBC (DIFF/PLT)2023-05-12 11:49:00* Test Item Value Reference Range Interpretation Comme nts WHITE BLOOD CELL COUNT (test code = 00858873) 7.9 Thousand/uL 3.8-10.8 N RED BLOOD CELL COUNT (test code = 65572903) 5.28 Million/uL 4.20-5.80 N HEMOGLOBIN (test code = 39471758) 15.5 g/dL 13.2-17.1 N HEMATOCRIT (test code = 80771910) 48.4 % 38.5-50.0 N MCV (test code = 72945029) 91.7 fL 80.0-100.0 N MCH (test code = 84802140) 29.4 pg 27.0-33.0 N MCHC (test code = 73594794) 32.0 g/dL 32.0-36.0 N RDW (test code = 80102009) 13.1 % 11.0-15.0 N PLATELET COUNT (test code = 43568251) 156 Thousand/uL 140-400 N MPV (test code = 22991393) 12.4 fL 7.5-12.5 N ABSOLUTE NEUTROPHILS (test code = 73094313) 6241 cells/uL 0732-8808 N ABSOLUTE LYMPHOCYTES (test code = 73380897) 656 cells/uL 850-3900 L ABSOLUTE MONOCYTES (test cod e = 99417548) 766 cells/uL 200-950 N ABSOLUTE EOSINOPHILS (test code = 49431748) 174 cells/uL 15-500 N ABSOLUTE BASOPHILS (test cod e = 48715288) 63 cells/uL 0-200 N NEUTROPHILS (test code = 90098302) 79 % N LYMPHOCYTES (test code = 56555332) 8.3 % N MONOCYTES (test code = 86251845) 9.7 % N EOSINOPHILS (test code = 84733717) 2.2 % N BASOPHILS (test code = 02652832) 0.8 % N FASTING:[facility] CENTERHCV RNA, QN [id number] 11:49:00* Test Item Value Reference Range Interpretation Comme nts HCV RNA, QUANTITATIVE REAL TIME PCR (test code = 50596031) <15 NOT DETECTED IU/mL NOT DETECTED N HCV RNA, QUANTITATIVE REAL TIME PCR (test code = 42265988) <1.18 NOT DETECTED Log IU/mL NOT DETECTED N This test was performed using Real-Time Polymerase ChainReaction. Reportable Range: 15 IU/mL to 100,000,000 IU/mL(1.18 Log IU/mL to 8.00 Log IU/mL). The analytical performance characteristics of thisassay have been determined by [employer]. The modifications have not been cleared or approved bythe FDA. This assay has been validated pursuant to the CLIA regulations and is used for clinical purposes. For more information on this test, go to:http://education.SmartPill/f aq/PBQ87k7(This link is being provided for informational/educati onal purposes only.) FASTING:[facility] CENTERBLipid 1995 panel - Serum or Plasma 2023-05-12 00:00:00* Test Item Value Reference Range Interpretation Comme nts Cholesterol [Mass/volume] in Serum or Plasma (test code = 2093-3) 167 mg/dL <200 Cholesterol in HDL [Mass/volume] in Serum or Plasma (test code = 2085-9) 49 mg/dL See_Comment [Automated [employer]] The system which generated this result transmitted reference range: > or = 40. The reference range was not used to interpret this result as normal/abnormal. Triglyceride [Mass/volume] in Serum or Plasma (test code = 2571-8) 161 mg/dL <150 H Cholesterol in LDL [Mass/volume] in Serum or Plasma by calculation (test code = 03052-4) 92 mg/dL (calc) Cholesterol.total/Cho lesterol in HDL [Mass Ratio] in Serum or Plasma (test code = 9830-1) 3.4 (calc) <5.0 Cholesterol non HDL [Mass/volume] in Serum or Plasma (test code = 43744-5) 118 mg/dL (calc) <130 [facility]ics[facility] 1995 panel - [id number] 00:00:00 * Test Item Value Reference Range Interpretation Comme nts Hepatitis A virus Ab [Presen ce] in Serum by Immunoassay (test code = 29580-8) reactive non-reactive A Hepatitis B virus surface Ab [Presence] in Serum by Immunoassay (test code = 43325-1) non-reactive non-reactive Hepatitis B virus surface Ag [Presence] in Serum or Plasma by Immunoassay (test code = 5196-1) non-reactive non-reactive Hepatitis B virus core Ab [Presence] in Serum or Plasma by Immunoassay (test code = 86877-9) non-reactive non-reactive Hepatitis C virus Ab [Presen ce] in Serum or Plasma by Immunoassay (test code = 52176-2) reactive non-reactive A [facility] 2000 panel - Serum or Riccpc2297-55-44 00:00:00* Test Item Value Reference Range Interpretation [...] Creatinine-based formula (CKD-EPI 2020) (test code = 74627-5) 70 mL/min/1.73m 2 See_Comment [Automated message] The [...] in Serum or Plasma (test code = 74317-1) 9.4 mg/dL 8.6-10.3 Protein [Mass/volume] in Serum or Plasma (test code = 2885-2) 7.6 g/dL 6.1-8.1 Albumin [Mass/volume] in Serum or Plasma (test code = 1751-7) 4.4 g/dL 3.6-5.1 Globulin [Mass/volume] in Serum by calculation (test code = 95968-8) 3.2 g/dL (calc) 1.9-3.7 Albumin/Globulin [Mass Ratio] [...] (test code = 1742-6) 23 U/L 9-46 [facility] W Auto Differential panel - [id number] 00:00:00* Test Item Value Reference Range Interpretation [...] count (test code = 751-8) 6241 cells/uL 6708-5963 Lymphocytes [#/volume] in Blood by Automated count [...] count (test code = 706-2) 0.8 % [facility] CenterHepatitis C virus RNA [Units/volume] (viral load) in Serum or Plasma by NHAN with probe [id number] 00:00:00* Test Item Value Reference Range Interpretation Comme nts Hepatitis C virus RNA [Units/volume] (viral load) in Serum or Plasma by NHAN with probe detection (test code = 07231-4) <15 not detected not detected Hepatitis C virus RNA [log units/volume] (viral load) in Serum or Plasma by NHAN with probe detection (test code = 89414-0) <1.18 not detected not detected [facility] CenterHemoglobin A1c/Hemoglobin.total in Blood 2023-05-12 00:00:00* Test Item Value Reference Range Interpretation Comme nts Hemoglobin A1c/Hemoglobin.to marques in Blood (test code = 4548-4) tnp [facility] CenterLipid 1996 panel - Serum or Jahcfk2324-23-66 00:00:00* Test Item Value Reference Range Interpretation Comme nts Cholesterol [Mass/volume] in Serum or Plasma (test code = 2093-3) 177 mg/dL <200 Cholesterol in HDL [Mass/volume] in Serum or Plasma (test code = 2085-9) 43 mg/dL See_Comment [Automated [employer]] The system which generated this result transmitted reference range: > or = 40. The reference range was not used to interpret this result as normal/abnormal. Triglyceride [Mass/volume] in Serum or Plasma (test code = 2571-8) 205 mg/dL <150 H Cholesterol in LDL [Mass/volume] in Serum or Plasma by calculation (test code = 36996-9) 102 mg/dL (calc) H Cholesterol.total/Cho lesterol.in HDL [Mass ratio] in Serum or Plasma (test code = 9830-1) 4.1 (calc) <5.0 Cholesterol non HDL [Mass/volume] in Serum or Plasma (test code = 06420-3) 134 mg/dL (calc) <130 H [facility] CenterMicroalbumin/Creatinine [Mass Ratio] in Urine 2023-01-30 00:00:00* Test Item Value Reference Range Interpretation Comme nts Creatinine [Mass/volume] in Urine (test code = 2161-8) 98 mg/dL 20-320 Microalbumin [Mass/volume] i n Urine (test code = 61811-8) 9.4 mg/dL see note: Albumin/Creatinine [Mass ratio] in Urine (test code = 9318-7) 96 mcg/mg creat <30 H [facility] CenterCom[facility] metabolic 2000 panel - Serum or Btcllf0292-89-34 00:00:00* Test Item Value Reference Range Interpretation [...] Creatinine-based formula (CKD-EPI 2020) (test code = 05569-2) 56 mL/min/1.73m 2 See_Comment L [Automated message] [...] in Serum or Plasma (test code = 96097-0) 9.8 mg/dL 8.6-10.3 Protein [Mass/volume] in Serum or Plasma (test code = 2885-2) 7.7 g/dL 6.1-8.1 Albumin [Mass/volume] in Serum or Plasma (test code = 1751-7) 4.6 g/dL 3.6-5.1 Globulin [Mass/volume] in Serum by calculation (test code = 43660-9) 3.1 g/dL (calc) 1.9-3.7 Albumin/Globulin [Mass Ratio] [...] (test code = 174-6) 17 U/L 9-46 [facility] W Auto Differential panel - Lbgva3122-23-64 00:00:00* Test Item Value Reference Range Interpretation [...] by Automated count (test code = 751-8) 89740 cells/uL 4691-7429 H Lymphocytes [#/volume] in Blood by Automated [...] count (test code = 706-2) 0.6 % [facility] CenterHemoglobin A1c/Hemoglobin.total in Blood 2023-01-30 00:00:00* Test Item Value Reference Range Interpretation Comme nts Hemoglobin A1c/Hemoglobin.total in Blood (test code = 4548-4) 7.6 % of total HGB <5.7 H [facility] Notes Date/Time Note Provider Source 2023-06-30 21:46:00 [facility] Hospitalist Progress Note REPORT#:[id number] REPORT STATUS: Signed REPORT INITIALIZATION DATE:06/30/23 TIME: 2145 PATIENT: MINDY CARTER UNIT #: [id number] ROOM/BED: 3359-1 : 54 AGE: 67 SEX: [...] Extremities: 3+ PRETIBIAL EDEMA Musculoskeletal: normal inspection Neuro/DANCE COACH: alert, oriented X 3, normal speech, no [...] as needed, long acting insulin as per [facility] Hypertension Renew medications once they have been updated in the computer Now on pressors for hypotension DEBILITY - REHAB SEEN, MAY NEED IRF Patient does not have a living will or medical power of erisa attorney Patient is a full code 06/01 [...] IS BACKDATING FOR VISIT ON 06/18/23. at 7044 RPT #:[id number] END OF REPORT [facility] 2023-06-22 23:08:00 [id number] [address] PATIENT NAME: MINDY CARTER ADMIT DATE: 05/31/23 ACCOUNT NO: [id number] ROOM NO: [facility] AGE: 67 REPORT TYPE: eECHOCARDIOGRAM REPORT SEX: M ADMITTING PHYSICIAN:Talat Lord MD ATTENDING PHYSICIAN:Bladimir Morse DO *[address] [address] Limited Transthoracic Echocardiogram Patient: Mindy Carter Study Date: 06/22/2023 BP: 127 / 69 URN: [id number] Location: : 1955 Age: 67 Gender: M Height: 69 in / 175.3 cm Weight: 249.1 lb / 113 kg BMI/BSA: 36.8 kg/m 2 / 2.39 m 2 *Ordering Physician: * Jeremiah Martel MD *Interpreting Physician: * Clayton Nathan MD *Roadability Machine Operator: * Mily Renee Indications: R/O Pericardial [...] 23:08 at 2308 PATIENT NAME: MINDY CARTER [facility] 2023-06-22 14:03:[address] [facility] ([facility]) Hospitalist Discharge Summary REPORT#:[id number] REPORT STATUS: Signed REPORT INITIALIZATION DATE:06/22/23 TIME: 140 PATIENT: MINDY CARTER UNIT #: [id number] ROOM/BED: [place] [address] : [birth year] AGE: 67 SEX: M ATTEND: [...] as needed, long acting insulin as per [facility] Hypertension Renew medications once they have been updated in the computer Now on pressors for hypotension DEBILITY - REHAB SEEN, MAY NEED IRF Patient does not have a living will or medical power of erisa attorney Patient is a full code 06/01 [...] Extremities: 3+ PRETIBIAL EDEMA Musculoskeletal: normal inspection Neuro/DANCE COACH: alert, oriented X 3, normal speech, no motor deficits, no sensory deficits Skin: dry, intact, no rash Psychiatry: normal affect Discharge Instructions PCP PCP follow-up: PCP: No Primary or Family Physician Follow-up labs,proc, tx: FOLLOW UP AT [facility] FOR FURTHER THERAPY Discharge to: Home/Self Care Additional Discharge Routines: PCP Follow-Up, 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 at 1551 RPT #:[id number] END OF REPORT [facility] 2023-06-22 10:44:00 [facility] Gastroenterology Progress Note REPORT#:[id number] REPORT STATUS: Signed REPORT INITIALIZATION DATE:06/22/23 TIME: 104 PATIENT: MINDY CARTER UNIT #: [id number] ROOM/BED: [place] [address] : 54 AGE: 67 SEX: M ATTEND: [...] Ox 96 06/22 823 FiO2 21 06/21 0824 O2 Delivery Room air 06/22 823 B/P 127/69 06/21 0711 B/P Mean 88.3 06/21 07 Temp 36.7 06/21 0711 Pulse 75 06/21 [...] Glargine (Semglee) 40 UNIT BEDTIME SUBQ Ipratropium Weston (ATROVENT) 500 MCG RTQ2H PRN PRN INH [...] guarding Extremities: moves all Musculoskeletal: normal inspection Neuro/DANCE COACH: alert, normal speech Skin: dry, intact, normal [...] (Auto) (14.0 - 32.0 %) 5.3 L [place] % (Auto) (4.8 - 9.0 %) 12.5 H Eos % (Auto) (0.3 - 3.7 %) 2.1 Baso % (Auto) (0.0 - 2.0 %) 0.7 Neut # (Auto) (2.0 - 7.6 x10 3/uL) 6.74 Lymph # (Auto) (1.0 - 3.8 x10 3/uL) 0.46 L [place] # (Auto) (0.1 - 0.8 x10 3/uL) [...] noted, similar or slightly improved. Impression By: Mret - Dickson Petersen M.D. Results: labs reviewed, [...] plan as documented by RAHUL Tobias. at 0910 at 8242 RPT #:[id number] END OF REPORT [facility] 2023-06-22 08:24:[address] [facility] ([facility] Cardiothoracic Surgery Prog REPORT#:[id number] REPORT STATUS: Signed REPORT INITIALIZATION DATE:06/22/23 TIME: 823 PATIENT: MINDY CARTER UNIT #: [id number] ROOM/BED: [place] [address] : 54 AGE: 67 SEX: M ATTEND: [...] patient Discussion included: living will, power of erisa attorney, code status Current Medications Current medication [...] diagnosed. Patient does not live local to [place]. Will consult gastroenterology to see patient. -EtOH cessation 3. Chronic kidney disease -Patient does not live local to [place]. Will consult nephrology to see patient. Patient [...] disease Patient was seen and examined at [facility]. Plan of care discussed with multidisciplinary team [...] CRRT. [facility] Plan of care discussed with multidisciplinary team [...] bowel movements Patient has rehab arranged at [facility]. Patient wishes to be discharged home and will present to [facility] rehab tomorrow. He will be followed closely by his renal physician in [facility]. Consultants: cardiology, cardiovascular surgery at 1510 at 1018 RPT #:[id number] END OF REPORT [facility] 2023-06-21 16:07:00 [facility] Nephrology Progress Note REPORT#:[id number] REPORT STATUS: Signed REPORT INITIALIZATION DATE:06/21/23 TIME: 1606 PATIENT: MINDY CARTER UNIT #: [id number] ROOM[address]BED: [address] : 54 AGE: 67 SEX: M [...] Consultants: cardiology, cardiovascular surgery at 1630 RPT #:[id number] END OF REPORT [facility] 2023-06-21 15:26:00 [facility] Rehab Progress Note REPORT#:[id number] REPORT STATUS: Signed REPORT INITIALIZATION DATE:06/21/23 TIME: 152 PATIENT: MINDY CARTER UNIT #: [id number] RO[address]BED: [address] : 54 AGE: 67 SEX: M [...] Glargine (Semglee) 40 UNIT BEDTIME SUBQ Ipratropium Weston (ATROVENT) 500 MCG RTQ2H PRN PRN INH [...] - Bilat Effects of Treatment: Balance Improved Derby of care decreased Cardio tolerance improved Function Improved Tolerance increased Post Treatment Precautions: In Bed, Rails Up Family at Bedside Call Light in Reach Nursing Notified O2 On Pulse OX in Place Telephone in Reach Review Plan of Care: Yes PT charges: Gait Training 40398 Gait Cmt: Pt cleared by RN and [...] Care: Yes Document OT charges: FT/THERAP. ACTIVITY [id number] If this is the patient's last treatment, [...] normal, range of motion normal, no atrophy Neuro/DANCE COACH: alert, oriented X 3, normal speech, no [...] (Auto) (14.0 - 32.0 %) 7.3 L [place] % (Auto) (4.8 - 9.0 %) 11.6 H Eos % (Auto) (0.3 - 3.7 %) 2.8 Baso % (Auto) (0.0 - 2.0 %) 0.6 Neut # (Auto) (2.0 - 7.6 x10 3/uL) 7.03 Lymph # (Auto) (1.0 - 3.8 x10 3/uL) 0.68 L [place] # (Auto) (0.1 - 0.8 x10 3/uL) [...] sternal precautions. IRF recommended. His is wanting [facility]. 06/17: Pt seen and examined. Referral [...] has been approved for inpatient rehab at [facility] and should have a bed tomorrow. Discussed with the patient and his . Consultants: cardiology, cardiovascular surgery Rehab attestation: Face to face exam completed. Treatment plan discussed with patient. at 1529 RPT #:[id number] END OF REPORT [facility] 2023-06-21 13:08:[address] [facility] ([facility]) Cardiothoracic Surgery Prog REPORT#:[id number] REPORT STATUS: Signed REPORT INITIALIZATION DATE:06/21/23 TIME: 1308 PATIENT: MINDY CARTER UNIT #: [id number] ROOM/BED: [place] [address] : 54 AGE: 67 SEX: M ATTEND: [...] patient Discussion included: living will, power of erisa attorney, code status Current Medications Current medication [...] diagnosed. Patient does not live local to [place]. Will consult gastroenterology to see patient. -EtOH cessation 3. Chronic kidney disease -Patient does not live local to [place]. Will consult nephrology to see patient. Patient [...] disease Patient was seen and examined at [facility]. Plan of care discussed with multidisciplinary team [...] CRRT. Patient was seen and examined at [facility]. Plan of care discussed with multidisciplinary team [...] cardiovascular surgery at 0823 at 1017 RPT #:[id number] END OF REPORT [facility] 2023-06-21 11:46:[address] [facility] ([facility]) Gastroenterology Progress Note REPORT#:[id number] REPORT STATUS: Signed REPORT INITIALIZATION DATE:06/21/23 TIME: 114 PATIENT: MINDY CARTER UNIT #: [id number] ROOM/BED: [place] [address] : 54 AGE: 67 SEX: M ATTEND: [...] Glargine (Semglee) 40 UNIT BEDTIME SUBQ Ipratropium Weston (ATROVENT) 500 MCG RTQ2H PRN PRN INH [...] guarding Extremities: moves all Musculoskeletal: normal inspection Neuro/DANCE COACH: alert, normal speech Skin: dry, intact, normal [...] (Auto) (14.0 - 32.0 %) 7.3 L [place] % (Auto) (4.8 - 9.0 %) 11.6 H Eos % (Auto) (0.3 - 3.7 %) 2.8 Baso % (Auto) (0.0 - 2.0 %) 0.6 Neut # (Auto) (2.0 - 7.6 x10 3/uL) 7.03 Lymph # (Auto) (1.0 - 3.8 x10 3/uL) 0.68 L [place] # (Auto) (0.1 - 0.8 x10 3/uL) [...] effusions. Impression By: [email or web address] Frandy Pimentel M.D. Results: labs reviewed, vital signs [...] recommendations may follow Consultants: cardiology, cardiovascular surgery Rigobetro Jarrell 06/21/235: Attestations Physician Attestation Agree w/findings plan: Agree with the findings and plan as documented by RAHUL Tobias. at 1421 at 1956 RPT #:[id number] END OF REPORT [facility] 2023-06-21 06:54:00 [id number] [address] PATIENT NAME: MINDY CARTER ADMIT DATE: 05/31/23 ACCOUNT NO: [id number] ROOM NO: [facility] AGE: 67 REPORT TYPE: eECHOCARDIOGRAM REPORT SEX: M ADMITTING PHYSICIAN:Talat Lord MD ATTENDING PHYSICIAN:Kumar Garcia MD *[address] [address] Limited Transthoracic Echocardiogram Patient: Mindy Carter Study Date: 06/20/2023 BP: 153 / 65 URN: [id number] Location: : 1955 Age: 67 Gender: M Height: 69 in / 175.3 cm Weight: 248 lb / 112.5 kg BMI/BSA: 36.6 kg/m 2 / 2.38 m 2 *Ordering Physician: * Jeremiah Martel MD *Interpreting Physician: * Clayton Nathan MD *Roadability Machine Operator: * Leslie Heredia Indications: SP PACER WIRES REMOVAL. Study data: Transthoracic echocardiogram, limited study. Procedure: A transthoracic echocardiogram was performed. Images were obtained using a Bazaart cardiac ultrasound machine. Image quality was fair. [...] 06:54 at 0654 PATIENT NAME: MINDY CARTER [facility] 2023-06-20 17:22:00 [facility] Hospitalist Progress Note REPORT#:[id number] REPORT STATUS: Signed REPORT INITIALIZATION DATE:06/20/23 TIME: 1721 PATIENT: MINDY CARTER UNIT #: [id number] ROOM/BED: [place] [address] : 54 AGE: 67 SEX: M ATTEND: [...] Extremities: 3+ PRETIBIAL EDEMA Musculoskeletal: normal inspection Neuro/DANCE COACH: alert, oriented X 3, normal speech, no motor deficits, no sensory deficits Skin: dry, intact, no rash Psychiatry: normal affect Results Findings/Data: Laboratory Tests 06/19 06/19 06/18 1206 0340 2026 Chemistry Sodium (134 - 147 mEq/L) 134 [...] (Auto) (14.0 - 32.0 %) 6.2 L [place] % (Auto) (4.8 - 9.0 %) 10.6 H Eos % (Auto) (0.3 - 3.7 %) 2.0 Baso % (Auto) (0.0 - 2.0 %) 0.4 Neut # (Auto) (2.0 - 7.6 x10 3/uL) 8.83 H Lymph # (Auto) (1.0 - 3.8 x10 3/uL) 0.70 L [place] # (Auto) (0.1 - 0.8 x10 3/uL) [...] RADIOLOGY - XR CHEST 1 V 06/19 0719 Report Impression - Status: SIGNED Entered: 06/20/2023 [...] as needed, long acting insulin as per [facility] Hypertension Renew medications once they have been updated in the computer Now on pressors for hypotension DEBILITY - REHAB SEEN, MAY NEED IRF Patient does not have a living will or medical power of erisa attorney Patient is a full code 06/01 [...] patient Discussion included: living will, power of erisa attorney, code status at 1724 RPT #:[id number] END OF REPORT [facility] 2023-06-20 15:01:00 [facility] Nephrology Progress Note REPORT#:[id number] REPORT STATUS: Signed REPORT INITIALIZATION DATE:06/20/23 TIME: 1501 PATIENT: MINDY CARTER UNIT #: [id number] ROOM/BED: [place] [address] : 54 AGE: 67 SEX: M ATTEND: [...] Consultants: cardiology, cardiovascular surgery at 1607 RPT #:[id number] END OF REPORT [facility] 2023-06-20 11:48:00 [facility] Cardiothoracic Surgery Prog REPORT#:[id number] REPORT STATUS: Signed REPORT INITIALIZATION DATE:06/20/23 TIME: 1147 PATIENT: MINDY CARTER UNIT #: [id number] [facility]OM[facility]BED: [facility] : 54 AGE: 67 SEX: M ATTEND: [...] Glargine (Semglee) 40 UNIT BEDTIME SUBQ Ipratropium Weston (ATROVENT) 500 MCG RTQ2H PRN PRN INH [...] (Auto) (14.0 - 32.0 %) 6.2 L [place] % (Auto) (4.8 - 9.0 %) 10.6 H Eos % (Auto) (0.3 - 3.7 %) 2.0 Baso % (Auto) (0.0 - 2.0 %) 0.4 Neut # (Auto) (2.0 - 7.6 x10 3/uL) 8.83 H Lymph # (Auto) (1.0 - 3.8 x10 3/uL) 0.70 L [place] # (Auto) (0.1 - 0.8 x10 3/uL) [...] M.D. Results: labs reviewed, vital signs stable, rydanitam personally rev'd, current med profile rev'd Quality: Trauma Gen Surg Advanced Care Plan 65 or Older Discussed with: patient Discussion included: living will, power of erisa attorney, code status Current Medications Current medication [...] diagnosed. Patient does not live local to [place]. Will consult gastroenterology to see patient. -EtOH cessation 3. Chronic kidney disease -Patient does not live local to [place]. Will consult nephrology to see patient. Patient [...] disease Patient was seen and examined at [facility]. Plan of care discussed with multidisciplinary team [...] CRRT. Patient was seen and examined at [facility]. Plan of care discussed with multidisciplinary team [...] Consultants: cardiology, cardiovascular surgery at 1017 RPT #:[id number] END OF REPORT [facility] 2023-06-20 10:03:[address] [facility] ([facility]) Cardiology Progress Note REPORT#:[id number] REPORT STATUS: Signed REPORT INITIALIZATION DATE:06/20/23 TIME: 1003 PATIENT: MINDY CARTER UNIT #: [id number] ROOM/BED: [facility] : 54 AGE: 67 SEX: M ATTEND: [...] the next 24 hours. at 1256 RPT #:[id number] END OF REPORT [facility] 2023-06-19 18:08:[address] [facility] ([facility] Hospitalist Progress Note REPORT#:[id number] REPORT STATUS: Signed REPORT INITIALIZATION DATE:06/19/23 TIME: 1807 PATIENT: MINDY CARTER UNIT #: [id number] ROOM/BED: [place] [address] : 54 AGE: 67 SEX: M ATTEND: [...] 1900 Intake Total 450 Output Total 650 33346 Balance -650 -9550 Intake, Oral 450 Number 0 Bowel Movements Output, Urine 650 46979 PATIENT WEIGHT: Weight (lb): 249 Weight (oz): 12.54 Weight (kg): 113.300 Physical Exam General appearance: alert, awake, oriented Head/Eyes: WEARING EYEGLASSES SHAVED HEAD ENT: moist mucosal membranes Neck: normal thyroid, no JVD Cardiovascular: normal heart sounds, regular rate rhythm, no gallop, no murmur , no rub Respiratory: hypoxia, on oxygen Abdomen: non-tender, normal bowel sounds, soft Extremities: 3+ PRETIBIAL EDEMA Musculoskeletal: normal inspection Neuro/DANCE COACH: alert, oriented X 3, CNII-XII intact Skin: dry, intact, no rash Psychiatry: normal affect Results Findings/Data: Laboratory Tests 06/18 06/18 06/18 06/18 06/17 1716 1217 3735 1128 8640 Chemistry Sodium (134 - 147 mEq/L) 132 [...] RADIOLOGY - XR CHEST 1 V 06/18 3180 Report Impression - Status: SIGNED Entered: 06/19/2023 [...] as needed, long acting insulin as per [facility] Hypertension Renew medications once they have been updated in the computer Now on pressors for hypotension DEBILITY - REHAB SEEN, MAY NEED IRF Patient does not have a living will or medical power of erisa attorney Patient is a full code 06/01 [...] patient Discussion included: living will, power of erisa attorney, code status at 1810 RPT #:[id number] END OF REPORT [facility] 2023-06-19 17:09:00 [facility] Cardiothoracic Surgery Prog REPORT#:[id number] REPORT STATUS: Signed REPORT INITIALIZATION DATE:06/19/23 TIME: 1709 PATIENT: MINDY CARTER UNIT #: [id number] ROOM[facility]BED: [facility] : 54 AGE: 67 SEX: M ATTEND: Kumar Garcia MD ADM AUTHOR: Nathaniel Martel MD REPT SERVICE DT/TIME: 06/19/23 0989 * ALL edits or amendments must be [...] 1900 Intake Total 450 Output Total 650 62814 Balance -650 -9550 Intake, Oral 450 Number 0 Bowel Movements Output, Urine 650 05439 PATIENT WEIGHT: Weight (lb): 249 Weight (oz): [...] Glargine (Semglee) 40 UNIT BEDTIME SUBQ Ipratropium Weston (ATROVENT) 500 MCG RTQ2H PRN PRN INH [...] Tests 06/18 06/18 06/18 06/17 1217 0735 6257 1910 Chemistry Sodium (134 - 147 mEq/L) [...] - 2.6 mg/dL) 2.44 Laboratory Tests 06/18 6916 Hematology WBC (4.5 - 11.0 x10 3/uL) [...] patient Discussion included: living will, power of erisa attorney, code status Current Medications Current medication [...] diagnosed. Patient does not live local to [place]. Will consult gastroenterology to see patient. -EtOH cessation 3. Chronic kidney disease -Patient does not live local to [place]. Will consult nephrology to see patient. Patient [...] disease Patient was seen and examined at [facility]. Plan of care discussed with multidisciplinary team [...] CRRT. Patient was seen and examined at [facility]. Plan of care discussed with multidisciplinary team [...] Consultants: cardiology, cardiovascular surgery at 0851 RPT #:[id number] END OF REPORT [facility] 2023-06-19 14:48:00 [facility] Cardiology Progress Note REPORT#:[id number] REPORT STATUS: Signed REPORT INITIALIZATION DATE:06/19/23 TIME: 1447 PATIENT: MINDY CARTER UNIT #: [id number] ROOM/BED: [place] [address] : 54 AGE: 67 SEX: M ATTEND: [...] the next 24 hours. at 1449 RPT #:[id number] END OF REPORT [facility] 2023-06-19 11:50:00 [facility] Nephrology Progress Note REPORT#:[id number] REPORT STATUS: Signed REPORT INITIALIZATION DATE:06/19/23 TIME: 115 PATIENT: MINDY CARTER UNIT #: [id number] ROOM/BED: [place] [address] : 54 AGE: 67 SEX: M ATTEND: [...] 1900 Intake Total 450 Output Total 650 88481 Balance -650 -9550 Intake, Oral 450 Number 0 Bowel Movements Output, Urine 650 34967 PATIENT WEIGHT: Weight (lb): 249 Weight (oz): [...] Consultants: cardiology, cardiovascular surgery at 2354 RPT #:[id number] END OF REPORT [facility] 2023-06-18 18:26:00 [facility]) Nephrology Progress Note REPORT#:[id number] REPORT STATUS: Signed REPORT INITIALIZATION DATE:06/18/23 TIME: 1825 PATIENT: MINDY CARTER UNIT #: [id number] ROOM/BED: [place] [address] : 54 AGE: 67 SEX: M ATTEND: [...] 1900 Intake Total 450 Output Total 650 69404 Balance -650 -9550 Intake, Oral 450 Number 0 Bowel Movements Output, Urine 650 62620 PATIENT WEIGHT: Weight (lb): 249 Weight (oz): [...] Consultants: cardiology, cardiovascular surgery at 1150 RPT #:[id number] END OF REPORT [facility] 2023-06-18 11:27:[address] [facility] ([facility]) Gastroenterology Progress Note REPORT#:[id number] REPORT STATUS: Signed REPORT INITIALIZATION DATE:06/18/23 TIME: 1126 PATIENT: MINDY CARTER UNIT #: [id number] ROOM/BED: 3359-1 : 54 AGE: 67 SEX: M ATTEND: Talat Lord MD ADM AUTHOR: Farideh Harris REPT SERVICE DT/TIME: 06/18/23 1127 * ALL edits or amendments must be made on the electronic/computer document * Farideh Harris 06/18/23 112: Subjective Patient reports: Yes: bowel movement, passing [...] Glargine (Semglee) 40 UNIT BEDTIME SUBQ Ipratropium Weston (ATROVENT) 500 MCG RTQ2H PRN PRN INH [...] guarding Extremities: moves all Musculoskeletal: normal inspection Neuro/DANCE COACH: alert, normal speech Skin: dry, intact, normal [...] (Auto) (14.0 - 32.0 %) 5.7 L [place] % (Auto) (4.8 - 9.0 %) 13.6 H Eos % (Auto) (0.3 - 3.7 %) 2.4 Baso % (Auto) (0.0 - 2.0 %) 0.5 Neut # (Auto) (2.0 - 7.6 x10 3/uL) 6.93 Lymph # (Auto) (1.0 - 3.8 x10 3/uL) 0.54 L [place] # (Auto) (0.1 - 0.8 x10 3/uL) [...] Impressions: ULTRASOUND - DUP VEIN BETH 06/16 5308 Report Impression - Status: SIGNED Entered: 06/17/2023 2557 IMPRESSION: 1. No evidence of deep venous [...] RAHUL Tobias. at 1433 at 2232 RPT #:[id number] END OF REPORT [facility] 2023-06-18 10:19:00 [facility] Rehab Progress Note REPORT#:[id number] REPORT STATUS: Signed REPORT INITIALIZATION DATE:06/18/23 TIME: 1019 PATIENT: MINDY CARTER UNIT #: [id number] ROOM/BED: [place] [address] : 53 AGE: 67 SEX: M ATTEND: [...] Glargine (Semglee) 40 UNIT BEDTIME SUBQ Ipratropium Weston (ATROVENT) 500 MCG RTQ2H PRN PRN INH [...] - Bilat Effects of Treatment: Balance Improved Derby of care decreased Cardio tolerance improved Function Improved Tolerance increased Post Treatment Precautions: In Chair Family at Bedside Call Light in Reach Nursing Notified O2 On Pulse OX in Place SCD in Place Telephone in Reach Review Plan of Care: Yes PT charges: Gait Training 62030 Gait Cmt: PATIENT SITTING IN RECLINER CHAIR [...] TO PERFORM BED MOBILITY MOD : 06/26/23 GL1: N I. 2: PATIENT WILL BE [...] (Auto) (14.0 - 32.0 %) 5.7 L [place] % (Auto) (4.8 - 9.0 %) 13.6 H Eos % (Auto) (0.3 - 3.7 %) 2.4 Baso % (Auto) (0.0 - 2.0 %) 0.5 Neut # (Auto) (2.0 - 7.6 x10 3/uL) 6.93 Lymph # (Auto) (1.0 - 3.8 x10 3/uL) 0.54 L [place] # (Auto) (0.1 - 0.8 x10 3/uL) [...] completed. Treatment plan discussed with patient. at 8720 RPT #:[id number] END OF REPORT [facility] 2023-06-18 09:49:00 [facility]) Cardiology Progress Note REPORT#:[id number] REPORT STATUS: Signed REPORT INITIALIZATION DATE:06/18/23 TIME: 948 PATIENT: MINDY CARTER UNIT #: [id number] ROOM/BED: 3359-1 : 54 AGE: 67 SEX: [...] the next 24 hours. at 1246 RPT #:[id number] END OF REPORT [facility] 2023-06-18 05:45:[address] [facility] ([facility]) Cardiothoracic Surgery Prog REPORT#:[id number] REPORT STATUS: Signed REPORT INITIALIZATION DATE:06/18/23 TIME: 544 PATIENT: MINDY CARTER UNIT #: [id number] ROOM/BED: [place] [address] : 54 AGE: 67 SEX: M ATTEND: [...] patient Discussion included: living will, power of erisa attorney, code status Current Medications Current medication [...] diagnosed. Patient does not live local to [place]. Will consult gastroenterology to see patient. -EtOH cessation 3. Chronic kidney disease -Patient does not live local to [place]. Will consult nephrology to see patient. Patient [...] disease Patient was seen and examined at [facility]. Plan of care discussed with multidisciplinary team [...] CRRT. Patient was seen and examined at [facility]. Plan of care discussed with multidisciplinary team [...] cardiology, cardiovascular surgery at 1314 at 1016 [facility] #:[id number] END OF REPORT [facility] 2023-06-17 15:38:00 [facility] Hospitalist Progress Note REPORT#:[id number] REPORT STATUS: Signed REPORT INITIALIZATION DATE:06/17/23 TIME: 1538 PATIENT: MINDY CARTER UNIT #: [id number] ROOM/BED: 3359-1 : 53 AGE: 67 SEX: M ATTEND: Talat Lord MD ADM AUTHOR: Talat Lord MD REPT SERVICE DT/TIME: 06/17/23 6455 * ALL edits or amendments must be [...] Glargine (Semglee) 40 UNIT BEDTIME SUBQ Ipratropium Weston (ATROVENT) 500 MCG RTQ2H PRN PRN INH [...] Extremities: 3+ PRETIBIAL EDEMA Musculoskeletal: normal inspection Neuro/DANCE COACH: alert, oriented X 3, CNII-XII intact Skin: [...] (Auto) (14.0 - 32.0 %) 4.8 L [place] % (Auto) (4.8 - 9.0 %) 14.1 H Eos % (Auto) (0.3 - 3.7 %) 2.3 Baso % (Auto) (0.0 - 2.0 %) 0.4 Neut # (Auto) (2.0 - 7.6 x10 3/uL) 7.80 H Lymph # (Auto) (1.0 - 3.8 x10 3/uL) 0.49 L [place] # (Auto) (0.1 - 0.8 x10 3/uL) [...] M.D. ULTRASOUND - DUP VEIN BETH 06/16 3444 Report Impression - Status: SIGNED Entered: 06/17/2023 [...] a living will or medical power of erisa attorney Patient is a full code 06/01 [...] patient Discussion included: living will, power of erisa attorney, code status at 1542 RPT #:[id number] END OF REPORT [facility] 2023-06-17 12:59:[address] [facility] ([facility]) Gastroenterology Progress Note REPORT#:[id number] REPORT STATUS: Signed REPORT INITIALIZATION DATE:06/17/23 TIME: 1258 PATIENT: MINDY CARTER UNIT #: [id number] ROOM/BED: [place] [address] : 53 AGE: 67 SEX: M ATTEND: Talat Lord MD ADM AUTHOR: Farideh Harris REPT SERVICE DT/TIME: 06/17/23 1256 * ALL edits or amendments must be made on the electronic/computer document * StevenFarideh Jose 06/17/23 1000: Subjective Patient reports: Yes: passing gas. No: [...] Glargine (Semglee) 40 UNIT BEDTIME SUBQ Ipratropium Weston (ATROVENT) 500 MCG RTQ2H PRN PRN INH [...] guarding Extremities: moves all Musculoskeletal: normal inspection Neuro/DANCE COACH: alert, normal speech Skin: dry, intact, normal [...] (3.4 - 5.0 g/dL) 2.90 L 06/154 2057 1835 Chemistry Sodium (134 - 147 [...] (Auto) (14.0 - 32.0 %) 4.8 L [place] % (Auto) (4.8 - 9.0 %) 14.1 H Eos % (Auto) (0.3 - 3.7 %) 2.3 Baso % (Auto) (0.0 - 2.0 %) 0.4 Neut # (Auto) (2.0 - 7.6 x10 3/uL) 7.80 H Lymph # (Auto) (1.0 - 3.8 x10 3/uL) 0.49 L [place] # (Auto) (0.1 - 0.8 x10 3/uL) [...] RADIOLOGY - XR CHEST 1 V 06/16 0647 Report Impression - Status: SIGNED Entered: 06/17/2023 1542 IMPRESSION: No significant interval change. Impression By: [email or web address] - Orlando Baez M.D. ULTRASOUND - DUP VEIN BETH 06/16 2220 Report Impression - Status: SIGNED Entered: 06/17/2023 [...] RAHUL Tobias. at 1548 at 203 RPT #:[id number] END OF REPORT [facility] 2023-06-17 11:54:[address] [facility] ([facility]) Cardiothoracic Surgery Prog REPORT#:[id number] REPORT STATUS: Signed REPORT INITIALIZATION DATE:06/17/23 TIME: 1154 PATIENT: MINDY CARTER UNIT #: [id number] ROOM/BED: 3359-1 : 54 AGE: 67 SEX: M ATTEND: Kumar Garcia MD ADM AUTHOR: Johnna Pablo Physic REPT SERVICE DT/TIME: 06/17/23 1154 * ALL edits or amendments must be made on the electronic/computer document * General Post-op: day 6 Status post: 06/11/23 CABG x 3 (COSTA-LAD, SVG-Diag, SVG-OM) EVH (RGSV) ALAJusten PP Subjective Chief complaint: Postop cabg Review [...] patient Discussion included: living will, power of erisa attorney, code status Current Medications Current medication [...] diagnosed. Patient does not live local to [place]. Will consult gastroenterology to see patient. -EtOH cessation 3. Chronic kidney disease -Patient does not live local to [place]. Will consult nephrology to see patient. Patient [...] disease Patient was seen and examined at [facility]. Plan of care discussed with multidisciplinary team [...] CRRT. Patient was seen and examined at [facility]. Plan of care discussed with multidisciplinary team [...] cardiovascular surgery at 1521 at 0850 RPT #:[id number] END OF REPORT [facility] 2023-06-17 11:31:[address] [facility] ([facility]) Acute Rehab Consult REPORT#:[id number] REPORT STATUS: Signed REPORT INITIALIZATION DATE:06/17/23 TIME: 1130 PATIENT: MINDY CARTER UNIT #: [id number] ROOM/BED: [place] [id number] : 54 AGE: 67 SEX: M ATTEND: [...] Decreased Ember Lacks Heel Strike - Bilat [facility] Mobility: No Document Pain/Education: No Advanced Progression: No Effects of Treatment: Balance Improved [place] of care decreased Cardio tolerance improved Function Improved Tolerance increased Post Treatment Precautions: In Bed, Rails Up Family at Bedside Call Light in Reach Nursing Notified O2 On Pulse OX in Place SCD in Place Telephone in Reach Review Plan of Care: Yes PT charges: Gait Training [id number] Gait Cmt: IMPROVING SLOWLY, STILL ON 4L O2. FATIGUES QUICKLY W GAIT. If this is the patient's last treatment, this entry serves as the discharge summary: Y Start Time: 1110 Stop Time: 1133 Treatment Time: ( minutes) 0:23 Completed by: Boris Pena . BED MOBILITY: Yes Rolling Right/Left: Minimal Assistance [...] Document OT charges: EVAL OT HIGH COMP [id number] Comments: SKILLED OT TO ADDRESS PERFORMANCE DEFICITS. [...] HOME WITH HIS . 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 [...] PRN 06/11 1629 AC 06/14 (Melatonin) PO 09/09 Autonomic Drugs Sig/Norris Start time Last Medication Dose Route Stop Time Status Admin Ipratropium Weston 500 MCG RTQ2H PRN PRN 06/13 194 AC 06/13 (ATROVENT) INH 09/11 Dopamine HCl/Dextrose 250 ML ASDIR 06/11 231 AC 06/11 (DOPamine 400MG/D5W IV 09/09 2313 [...] Time Status Admin Atorvastatin Calcium 40 MG 06/16 AC (LIPITOR) PO 07/16 2058 Hydralazine HCl 5 MG PACU Q10MIN PRN PRN 06/14 0820 AC (APRESOLINE) IV Labetalol HCl 5 MG PACU Q10MIN PRN PRN 06/14 0820 AC (labetalol) IV Milrinone Lactate/ 100 ML TITRATE 06/11 144 CKD 06/11 Dextrose IV 09/10 143 2019 (MILRINONE 20MG/D5W 100ML) Amiodarone HCl 200 MG [...] Citrate 50 MCG PACU Q10MIN PRN PRN 03/19 0920 AC (SUBLIMAZE) IV Hydrocodone Bitart/ 1 TAB [...] DAILY 06/11 142 AC 06/16 (ASPIRIN) PO 09/09 141 0817 Magnesium Sulfate 100 ML ASDIR PRN 06/10 [...] 06/12 0900 DC 06/15 (LASIX) IV 09/10 858 09 Sodium Chloride 24 ML (SODIUM CHLORIDE 0.9%) [...] 06/10 1944 AC 06/11 (SODIUM CHLORIDE IV 09/080 0.9%) Lactulose 10 GM DAILY PRN PRN [...] PRN PRN 06/10 1944 AC (ZOFRAN) IV 06/13 1944 Hormones And Synthetic Substit Sig/Norris Start time [...] 06/13 2100 AC 06/15 (Semglee) SUBQ 09/11 2059 2100 Vasopressin 100 ML ASDIR 06/12 0630 CKD 06/13 (VASOSTRICT 20 Unit/ IV 09/10 0629 0055 NS 100ML) Insulin Human Regular 100 UNIT ASDIR 06/10 194 CKD 06/16 (HumuLIN R) IV 09/08 194 0313 Sodium Chloride 99 ML (SODIUM CHLORIDE 0.9%) Local Anesthetics (Parenteral) Sig/Norris Start time Last Medication Dose Route Stop Time Status Admin Ropivacaine 150 MG ASDIR PRN 06/14 0920 AC (NAROPIN 0.5% 150 MG/ LOCAL 30mL) Vitamins Sig/Norris Start time Last Medication Dose Route Stop Time Status Admin Cyanocobalamin 500 MCG DAILY 06/13 09 AC 06/16 (Vitamin B-12 500 PO 09/11 0859 0817 mcg tab) Thiamine HCl 100 MG DAILY 06/02 0900 AC 06/16 (THIAMINE HCL) PO 08/31 0859 [...] normal, range of motion normal, no atrophy Neuro/DANCE COACH: alert, oriented X 3, normal speech, no [...] (Auto) (14.0 - 32.0 %) 4.8 L [place] % (Auto) (4.8 - 9.0 %) 14.1 H Eos % (Auto) (0.3 - 3.7 %) 2.3 Baso % (Auto) (0.0 - 2.0 %) 0.4 Neut # (Auto) (2.0 - 7.6 x10 3/uL) 7.80 H Lymph # (Auto) (1.0 - 3.8 x10 3/uL) 0.49 L [place] # (Auto) (0.1 - 0.8 x10 3/uL) [...] 0625 Report Impression - Status: SIGNED Entered: 06/17/2023827 IMPRESSION: No significant interval change. Impression By: [...] sternal precautions. IRF recommended. His is wanting [facility]. at 1827 RPT #:[id number] END OF REPORT [facility] 2023-06-17 11:19:00 [facility] Critical Care Progress Note REPORT#:[id number] REPORT STATUS: Signed REPORT INITIALIZATION DATE:06/17/23 TIME: 111 PATIENT: MINDY CARTER UNIT #: [id number] ROOM/BED: [place] [address] : 54 AGE: 67 SEX: M ATTEND: [...] Glargine (Semglee) 40 UNIT BEDTIME SUBQ Ipratropium Weston (ATROVENT) 500 MCG RTQ2H PRN PRN INH [...] soft, non-tender, no mass/organomegaly Extremities: edema (2+) Neuro/DANCE COACH: alert, no motor deficits Results Findings/data: Laboratory [...] (Auto) (14.0 - 32.0 %) 4.8 L [place] % (Auto) (4.8 - 9.0 %) 14.1 H Eos % (Auto) (0.3 - 3.7 %) 2.3 Baso % (Auto) (0.0 - 2.0 %) 0.4 Neut # (Auto) (2.0 - 7.6 x10 3/uL) 7.80 H Lymph # (Auto) (1.0 - 3.8 x10 3/uL) 0.49 L [place] # (Auto) (0.1 - 0.8 x10 3/uL) [...] Increasing LFTs with underlying liver cirrhosis. Plan: DANCE COACH: Awake and alert. No signs and symptoms [...] patient Discussion included: living will, power of erisa attorney, code status at 1130 RPT #:[id number] END OF REPORT [facility] 2023-06-17 07:23:[address] [facility] ([facility]) Nephrology Progress Note REPORT#:[id number] REPORT STATUS: Signed REPORT INITIALIZATION DATE:06/17/23 TIME: 722 PATIENT: MINDY CARTER UNIT #: [id number] ROOM/BED: [place] [address] : 54 AGE: 67 SEX: M ATTEND: [...] Consultants: cardiology, cardiovascular surgery at 1826 RPT #:[id number] END OF REPORT [facility] 2023-06-17 07:10:00 [facility] Cardiology Progress Note REPORT#:[id number] REPORT STATUS: Signed REPORT INITIALIZATION DATE:06/17/23 TIME: 709 PATIENT: MINDY CARTER UNIT #: [id number] ROOM/BED: [place] [address] : 54 AGE: 67 SEX: M ATTEND: [...] the next 24 hours. at 0946 RPT #:[id number] END OF REPORT [facility] 2023-06-16 20:15:00 [facility] Nephrology Progress Note REPORT#:[id number] REPORT STATUS: Signed REPORT INITIALIZATION DATE:06/16/23 TIME: 2014 PATIENT: MINDY CARTER UNIT #: [id number] ROOM/BED: [place] [address] : 54 AGE: 67 SEX: M ATTEND: [...] 06/10. Consultants: cardiology, cardiovascular surgery at 0723 [facility] #:[id number] END OF REPORT [facility] 2023-06-16 17:11:[address] [facility] ([facility]) Critical Care Progress Note REPORT#:[id number] REPORT STATUS: Signed REPORT INITIALIZATION DATE:06/16/23 TIME: 1710 PATIENT: MINDY CARTER UNIT #: [id number] ROOM/BED: [place] [address] : 54 AGE: 67 SEX: M ATTEND: Talat Lord MD ADM AUTHOR: Светлана Arriaga MD REPT SERVICE DT/TIME: 06/16/23 3121 * ALL edits or amendments must be [...] Glargine (Semglee) 40 UNIT BEDTIME SUBQ Ipratropium Weston (ATROVENT) 500 MCG RTQ2H PRN PRN INH [...] soft, non-tender, no mass/organomegaly Extremities: edema (2+) Neuro/DANCE COACH: alert, no motor deficits Results Findings/data: Laboratory [...] (Auto) (14.0 - 32.0 %) 5.0 L [place] % (Auto) (4.8 - 9.0 %) 12.6 H Eos % (Auto) (0.3 - 3.7 %) 3.4 Baso % (Auto) (0.0 - 2.0 %) 0.1 Neut # (Auto) (2.0 - 7.6 x10 3/uL) 8.82 H Lymph # (Auto) (1.0 - 3.8 x10 3/uL) 0.56 L [place] # (Auto) (0.1 - 0.8 x10 3/uL) [...] Increasing LFTs with underlying liver cirrhosis. Plan: DANCE COACH: Awake and alert. No signs and symptoms [...] patient Discussion included: living will, power of erisa attorney, code status at 1721 RPT #:[id number] END OF REPORT [facility] 2023-06-16 15:11:[address] [facility] ([facility]) Clinical Note REPORT#:[id number] REPORT STATUS: Signed REPORT INITIALIZATION DATE:06/16/23 TIME: 1511 PATIENT: MINDY CARTER UNIT #: [id number] ROOM/BED: [place] [address] : 54 AGE: 67 SEX: M ATTEND: [...] Stay (<6 days)* 33.9% at 1511 RPT #:[id number] END OF REPORT [facility] 2023-06-16 14:58:[address] [facility] ([facility]) Hospitalist Progress Note REPORT#:[id number] REPORT STATUS: Signed REPORT INITIALIZATION DATE:06/16/23 TIME: 145 PATIENT: MINDY CARTER UNIT #: [id number] ROOM/BED: [place] [address] : 54 AGE: 67 SEX: M ATTEND: [...] Glargine (Semglee) 40 UNIT BEDTIME SUBQ Ipratropium Weston (ATROVENT) 500 MCG RTQ2H PRN PRN INH [...] no clubbing, no cyanosis, 3+ PRETIBIAL EDEMA Neuro/DANCE COACH: alert, oriented X 3, CNII-XII intact Skin: [...] (Auto) (14.0 - 32.0 %) 5.0 L [place] % (Auto) (4.8 - 9.0 %) 12.6 H Eos % (Auto) (0.3 - 3.7 %) 3.4 Baso % (Auto) (0.0 - 2.0 %) 0.1 Neut # (Auto) (2.0 - 7.6 x10 3/uL) 8.82 H Lymph # (Auto) (1.0 - 3.8 x10 3/uL) 0.56 L [place] # (Auto) (0.1 - 0.8 x10 3/uL) [...] as needed, long acting insulin as per [facility] Hypertension Renew medications once they have been updated in the computer Now on pressors for hypotension Check labs in the a.m. Patient does not have a living will or medical power of erisa attorney Patient is a full code 06/01 [...] patient Discussion included: living will, power of erisa attorney, code status at 1501 RPT #:[id number] END OF REPORT [facility] 2023-06-16 10:37:00 [facility] Gastroenterology Progress Note REPORT#:[id number] REPORT STATUS: Signed REPORT INITIALIZATION DATE:06/16/23 TIME: 1037 PATIENT: MINDY CARTER UNIT #: [id number] ROOM/BED: [place] [address] : 54 AGE: 67 SEX: M ATTEND: [...] Glargine (Semglee) 40 UNIT BEDTIME SUBQ Ipratropium Weston (ATROVENT) 500 MCG RTQ2H PRN PRN INH [...] guarding Extremities: moves all Musculoskeletal: normal inspection Neuro/DANCE COACH: alert, normal speech Skin: dry, intact, normal [...] 1.7 mmol/l) 0.6 L O2 Delivery Device [facility] Laboratory Tests 06/15 06/15 06/15 06/15 [...] g/dL) 2.70 L 06/14 06/14 06/14 06/14 4691 1 2104 191 Chemistry Sodium (134 - 147 mEq/L) 128 [...] (Auto) (14.0 - 32.0 %) 5.0 L [place] % (Auto) (4.8 - 9.0 %) 12.6 H Eos % (Auto) (0.3 - 3.7 %) 3.4 Baso % (Auto) (0.0 - 2.0 %) 0.1 Neut # (Auto) (2.0 - 7.6 x10 3/uL) 8.82 H Lymph # (Auto) (1.0 - 3.8 x10 3/uL) 0.56 L [place] # (Auto) (0.1 - 0.8 x10 3/uL) [...] plan as documented by RAHUL Tobias. at 3266 at 3915 RPT #:[id number] END OF REPORT [facility] 2023-06-16 06:18:[address] [facility] ([facility]) Cardiology Progress Note REPORT#:[id number] REPORT STATUS: Signed REPORT INITIALIZATION DATE:06/16/23 TIME: 617 PATIENT: MINDY CARTER UNIT #: [id number] ROOM/BED: [address] : 54 AGE: 67 SEX: M ATTEND: [...] cirrhosis, low-dose beta- blockers at 0710 RPT #:[id number] END OF REPORT [facility] 2023-06-16 06:08:[address] [facility] ([facility]) Cardiology Progress Note REPORT#:[id number] REPORT STATUS: Signed REPORT INITIALIZATION DATE:06/16/23 TIME: 607 PATIENT: MINDY CARTER UNIT #: [id number] ROOM/BED: [place] [address] : 54 AGE: 67 SEX: M ATTEND: [...] liver cirrhosis, low-dose beta- blockers at 0612 [facility] #:[id number] END OF REPORT [facility] 2023-06-15 17:13:[address] [facility] ([facility]) Cardiothoracic Surgery Prog REPORT#:[id number] REPORT STATUS: Signed REPORT INITIALIZATION DATE:06/15/23 TIME: 1712 PATIENT: MINDY CARTER UNIT #: [id number] ROOM/BED: [address] : 54 AGE: 67 SEX: M ATTEND: Kumar Garcia MD ADM AUTHOR: Johnna Pablo Physic REPT SERVICE DT/TIME: 06/15/23 0552 * ALL edits or amendments must be [...] patient Discussion included: living will, power of erisa attorney, code status Current Medications Current medication [...] diagnosed. Patient does not live local to [place]. Will consult gastroenterology to see patient. -EtOH cessation 3. Chronic kidney disease -Patient does not live local to [place]. Will consult nephrology to see patient. Patient [...] disease Patient was seen and examined at [facility]. Plan of care discussed with multidisciplinary team [...] CRRT. Patient was seen and examined at [facility]. Plan of care discussed with multidisciplinary team [...] cardiovascular surgery at 1717 at 0948 RPT #:[id number] END OF REPORT [facility] 2023-06-15 12:27:00 [facility] Gastroenterology Progress Note REPORT#:[id number] REPORT STATUS: Signed REPORT INITIALIZATION DATE:06/15/23 TIME: 1226 PATIENT: MINDY CARTER UNIT #: [id number] ROOM/BED: [place] [address] : 54 AGE: 67 SEX: M ATTEND: [...] Glargine (Semglee) 40 UNIT BEDTIME SUBQ Ipratropium Weston (ATROVENT) 500 MCG RTQ2H PRN PRN INH [...] MG TABLET) 17.2 MG BEDTIME PO Ipratropium Weston (ATROVENT) 500 MCG RTQ4H INH (DC) Calcium [...] guarding Extremities: moves all Musculoskeletal: normal inspection Neuro/DANCE COACH: alert, normal speech Skin: dry, intact, normal [...] (Auto) (14.0 - 32.0 %) 4.5 L [place] % (Auto) (4.8 - 9.0 %) 8.7 Eos % (Auto) (0.3 - 3.7 %) 1.3 Baso % (Auto) (0.0 - 2.0 %) 0.1 Neut # (Auto) (2.0 - 7.6 x10 3/uL) 11.68 H Lymph # (Auto) (1.0 - 3.8 x10 3/uL) 0.63 L [place] # (Auto) (0.1 - 0.8 x10 3/uL) [...] documented by RAHUL Tobias. at 1738 at 2055 RPT #:[id number] END OF REPORT [facility] 2023-06-15 11:59:[address] [facility] ([facility]) Critical Care Progress Note REPORT#:[id number] REPORT STATUS: Signed REPORT INITIALIZATION DATE:06/15/23 TIME: 115 PATIENT: MINDY CARTER UNIT #: [id number] ROOM/BED: [place] [address] : 54 AGE: 67 SEX: M ATTEND: [...] the Lasix. Will discontinue chest tube and Colt Objective General VS/I O Last Documented: Result [...] Glargine (Semglee) 40 UNIT BEDTIME SUBQ Ipratropium Weston (ATROVENT) 500 MCG RTQ2H PRN PRN INH [...] MG TABLET) 17.2 MG BEDTIME PO Ipratropium Weston (ATROVENT) 500 MCG RTQ4H INH (DC) Calcium [...] soft, non-tender, no mass/organomegaly Extremities: edema (2+) Neuro/DANCE COACH: alert, no motor deficits Results Findings/data: Laboratory [...] 06/14 06/14 06/14 1136 0927 0919 0810 0501 Chemistry Sodium (134 - 147 mEq/L) 130 [...] (Auto) (14.0 - 32.0 %) 4.5 L [place] % (Auto) (4.8 - 9.0 %) 8.7 Eos % (Auto) (0.3 - 3.7 %) 1.3 Baso % (Auto) (0.0 - 2.0 %) 0.1 Neut # (Auto) (2.0 - 7.6 x10 3/uL) 11.68 H Lymph # (Auto) (1.0 - 3.8 x10 3/uL) 0.63 L [place] # (Auto) (0.1 - 0.8 x10 3/uL) [...] sounds Extremities no edema, right leg dressed DANCE COACH no deficits Diagnosis, Assessment Plan Free text A P: Multivessel CAD s/p CABG x 3 (COSTA-LAD, SVG-Diag, SVG-OM) ALAA Postoperative respiratory insufficiency following cardiac surgery Postoperative pain Shock Leukocytosis Liver cirrhosis EtOH dependence Increasing LFTs with underlying liver cirrhosis. Plan: DANCE COACH: Awake and alert. No signs and symptoms [...] Consultants: cardiology, cardiovascular surgery at 1304 RPT #:[id number] END OF REPORT [facility] 2023-06-15 10:56:[address] [facility] ([facility]) Nephrology Progress Note REPORT#:[id number] REPORT STATUS: Signed REPORT INITIALIZATION DATE:06/15/23 TIME: 1055 PATIENT: MINDY CARTER UNIT #: [id number] ROOM/BED: [place] [address] : 54 AGE: 67 SEX: M ATTEND: [...] Flow FiO2 Mean Ox Delivery Rate 06/14 600 116/61 83 06/14 0601 76 29 132/54 75 96 06/14 0600 75 27 129/53 74 95 06/14 0500 98/57 75 06/14 0500 70 21 122/54 73 95 06/14 0417 98 Nasal 8 52 cannula 06/14 0400 96/54 70 03/ 0400 68 15 113/52 69 98 03/ 0300 97/56 73 03/ 0300 69 15 117/54 71 97 03/19 0200 97/52 69 03/19 0200 71 16 121/55 73 97 / 0100 105/60 78 03/ 0100 70 17 120/55 72 98 03/ 0000 98/74 81 03/ 0000 71 33 118/55 73 96 06/13 2300 100/58 73 / 2300 71 17 124/56 75 97 /18 2200 90/53 66 / 2200 71 17 115/54 71 98 / 2100 102/57 76 06/13 2100 74 19 [...] Consultants: cardiology, cardiovascular surgery at 1057 RPT #:[id number] END OF REPORT [facility] 2023-06-15 09:04:00 [facility] Hospitalist Progress Note REPORT#:[id number] REPORT STATUS: Signed REPORT INITIALIZATION DATE:06/15/23 TIME: 903 PATIENT: MINDY CARTER UNIT #: [id number] ROOM/BED: [place] [address] : 54 AGE: 67 SEX: M ATTEND: [...] 06/14 0100 70 17 120/55 72 98 03/19 0000 98/74 81 06/14 0000 71 33 [...] Glargine (Semglee) 40 UNIT BEDTIME SUBQ Ipratropium Weston (ATROVENT) 500 MCG RTQ2H PRN PRN INH [...] MG TABLET) 17.2 MG BEDTIME PO Ipratropium Weston (ATROVENT) 500 MCG RTQ4H INH (DC) Calcium [...] soft Extremities: edema, no clubbing, no cyanosis Neuro/DANCE COACH: alert, oriented X 3, CNII-XII intact Skin: [...] (3.4 - 5.0 g/dL) 2.80 L 06/13 06/13 06/13 06/13 06/13 2230 1957 1810 1719 1603 Chemistry POC Glucose [...] (Auto) (14.0 - 32.0 %) 4.5 L [place] % (Auto) (4.8 - 9.0 %) 8.7 Eos % (Auto) (0.3 - 3.7 %) 1.3 Baso % (Auto) (0.0 - 2.0 %) 0.1 Neut # (Auto) (2.0 - 7.6 x10 3/uL) 11.68 H Lymph # (Auto) (1.0 - 3.8 x10 3/uL) 0.63 L [place] # (Auto) (0.1 - 0.8 x10 3/uL) [...] RADIOLOGY - XR CHEST 1 V 06/14 4952 Report Impression - Status: SIGNED Entered: 06/15/2023 9627 IMPRESSION: 1. Lines and tubes are seen [...] as needed, long acting insulin as per [facility] Hypertension Renew medications once they have been updated in the computer Now on pressors for hypotension Check labs in the a.m. Patient does not have a living will or medical power of erisa attorney Patient is a full code 06/01 [...] patient Discussion included: living will, power of erisa attorney, code status at 1543 RPT #:[id number] END OF REPORT [facility] 2023-06-14 23:44:00 [facility] Nephrology Progress Note REPORT#:[id number] REPORT STATUS: Signed REPORT INITIALIZATION DATE:06/14/23 TIME: 2343 PATIENT: MINDY CARTER UNIT #: [id number] ROOM/BED: [place] [address] : 54 AGE: 67 SEX: M ATTEND: [...] 06/14 0600 75 27 129/53 74 95 / 0500 98/57 75 03/ 0500 70 21 122/54 73 95 06/14 0417 98 Nasal 8 52 cannula 06/14 0400 96/54 70 / 0400 68 15 113/52 69 98 06/14 0300 97/56 73 / 0300 69 15 117/54 71 97 / 0200 97/52 69 03/ 0200 71 16 121/55 73 97 / 0100 105/60 78 / 0100 70 17 120/55 72 98 / 0000 98/74 81 03/ 0000 71 33 118/55 73 96 03/18 2300 100/58 73 03/18 2300 71 17 124/56 75 97 /18 2200 90/53 66 03/18 2200 71 17 115/54 71 98 /18 2100 102/57 76 03/18 2100 74 19 127/57 76 98 06/13 2026 96 High flow 8 nasal cannula 06/14 1999 High flow 8 nasal cannula 06/14 1999 105/57 73 03/18 2000 75 31 120/60 79 94 03/18 1917 109/63 79 /18 1900 74 27 116/55 73 97 /18 1800 76 31 126/58 76 96 /18 1700 76 33 114/55 72 98 03/18 1600 80 28 127/58 77 95 03/18 1500 76 33 120/55 71 100 /18 1459 97 High flow 8 nasal cannula 06/13 1430 76 40 115/53 71 85 03/18 1400 110/65 83 03/18 1400 79 25 114/52 68 100 03/18 1330 79 34 115/49 66 100 03/18 1300 76 36 106/50 65 96 03/18 1217 125/66 87 06/13 1201 84 36 [...] Consultants: cardiology, cardiovascular surgery at 1054 RPT #:[id number] END OF REPORT [facility] 2023-06-14 18:24:00 [id number] [place] [address] PATIENT NAME: MINDY CARTER ADMIT DATE: 05/31/23 ACCOUNT NO: [id number] ROOM NO: [facility] AGE: 67 REPORT TYPE: eECHOCARDIOGRAM REPORT SEX: M ADMITTING PHYSICIAN:Eleonora Mai MD ATTENDING PHYSICIAN:Kimmie Bacon MD *[place] [address] Limited Transthoracic Echocardiogram Patient: Mindy Carter Study Date: 06/14/2023 BP: 112 / 58 URN: [id number] Location: : 1955 Age: 67 Gender: M Height: 69 in / 175.3 cm Weight: 246 lb / 111.6 kg BMI/BSA: 36.3 kg/m 2 / 2.37 m 2 *Ordering Physician: * Johnna Pablo Physic *Interpreting Physician: * Clayton Nathan MD *Roadability Machine Operator: * Johanna Lundy Indications: Evaluation left ventricle and right ventricular function. Study data: Transthoracic echocardiogram, limited study. Procedure: A transthoracic echocardiogram was performed. Image quality was adequate. Limited 2D and limited spectral Doppler. [facility] Patient status: Inpatient. Patient room number: [...] 18:24 at 1824 PATIENT NAME: MINDY CARTER [facility] 2023-06-14 17:52:00 [facility] Cardiology Progress Note REPORT#:[id number] REPORT STATUS: Signed REPORT INITIALIZATION DATE:06/14/23 TIME: 1751 PATIENT: MINDY CARTER UNIT #: [id number] ROOM/BED: [place] [address] : [birth year] AGE: 67 SEX: M ATTEND: Kimmie Bacon MD ADM AUTHOR: Clayton Nathan MD REPT SERVICE DT/TIME: 06/14/23 1752 * ALL edits or amendments must be [...] cirrhosis, low-dose beta- blockers. at 1757 RPT #:[id number] END OF REPORT [facility] 2023-06-14 15:21:00 [facility] Cardiothoracic Surgery Prog REPORT#:[id number] REPORT STATUS: Signed REPORT INITIALIZATION DATE:06/14/23 TIME: 152 PATIENT: MINDY CARTER UNIT #: [id number] ROOM/BED: [place] [address] : 53 AGE: 67 SEX: M ATTEND: [...] Result Date Time Pulse Ox 96 06/13 112 O2 Delivery High flow nasal cannula 06/13 112 O2 Flow Rate 11 06/13 1129 B/P [...] patient Discussion included: living will, power of erisa attorney, code status Current Medications Current medication [...] diagnosed. Patient does not live local to [place]. Will consult gastroenterology to see patient. -EtOH cessation 3. Chronic kidney disease -Patient does not live local to [place]. Will consult nephrology to see patient. Patient [...] disease Patient was seen and examined at [facility]. Plan of care discussed with multidisciplinary team [...] CRRT. Patient was seen and examined at [facility]. Plan of care discussed with multidisciplinary team [...] Consultants: cardiology, cardiovascular surgery at 1525 at 1229 RPT #:[id number] END OF REPORT [facility] 2023-06-14 12:37:[address] [facility] ([facility] Gastroenterology Progress Note REPORT#:[id number] REPORT STATUS: Signed REPORT INITIALIZATION DATE:06/14/23 TIME: 1236 PATIENT: MINDY CARTER UNIT #: [id number] ROOM/BED: [place] [address] : 53 AGE: 67 SEX: M ATTEND: [...] Glargine (Semglee) 40 UNIT BEDTIME SUBQ Ipratropium Weston (ATROVENT) 500 MCG RTQ2H PRN PRN INH [...] MG TABLET) 17.2 MG BEDTIME PO Ipratropium Weston (ATROVENT) 500 MCG RTQ4H INH Calcium Chloride [...] PRIOR TO DC Dietitian name: Anju Armendariz, ANA ROSA, LD Assessment completed: 06/11/23 Physical Exam General appearance: respiratory support, alert, awake, conversational HEENT: atraumatic, normocephalic Neck: full range of motion Cardiovascular: normal S1/S2, regular rate rhythm Respiratory: symmetric expansion, no distress Abdomen: abnormal bowel sounds (hypoactive), distended (mildly), non-tender, soft, no guarding Extremities: moves all Musculoskeletal: normal inspection Neuro/DANCE COACH: alert, normal speech Skin: dry, intact, normal [...] (Auto) (14.0 - 32.0 %) 5.3 L [place] % (Auto) (4.8 - 9.0 %) 9.8 H Eos % (Auto) (0.3 - 3.7 %) 0.1 L Baso % (Auto) (0.0 - 2.0 %) 0.2 Neut # (Auto) (2.0 - 7.6 x10 3/uL) 18.88 H Lymph # (Auto) (1.0 - 3.8 x10 3/uL) 1.21 [place] # (Auto) (0.1 - 0.8 x10 3/uL) [...] cholecystitis. Impression By: Osiel Fry M.D. Results: labs [...] RAHUL Tobias. at 1320 at 1956 RPT #:[id number] END OF REPORT [facility] 2023-06-14 10:27:[address] [facility] ([facility]) Critical Care Progress Note REPORT#:[id number] REPORT STATUS: Signed REPORT INITIALIZATION DATE:06/14/23 TIME: 1026 PATIENT: MINDY CARTER UNIT #: [id number] ROOM/BED: [place] [address] : 53 AGE: 67 SEX: M ATTEND: [...] Glargine (Semglee) 40 UNIT BEDTIME SUBQ Ipratropium Weston (ATROVENT) 500 MCG RTQ2H PRN PRN INH [...] MG TABLET) 17.2 MG BEDTIME PO Ipratropium Weston (ATROVENT) 500 MCG RTQ4H INH Calcium Chloride [...] soft, non-tender, no mass/organomegaly Extremities: edema (2+) Neuro/DANCE COACH: alert, no motor deficits Results Findings/data: Laboratory Tests 06/13 06/12 06/12 0356 2081 1247 Blood Gas Puncture Site Art Line [...] (Auto) (14.0 - 32.0 %) 5.3 L [place] % (Auto) (4.8 - 9.0 %) 9.8 H Eos % (Auto) (0.3 - 3.7 %) 0.1 L Baso % (Auto) (0.0 - 2.0 %) 0.2 Neut # (Auto) (2.0 - 7.6 x10 3/uL) 18.88 H Lymph # (Auto) (1.0 - 3.8 x10 3/uL) 1.21 [place] # (Auto) (0.1 - 0.8 x10 3/uL) [...] Available] 06/14/23 0108: [Embedded Image Not Available] 06/13/235: [Embedded Image Not Available] 06/13/23 1335: [Embedded [...] sounds Extremities no edema, right leg dressed DANCE COACH sedated Diagnosis, Assessment Plan Free text A P: Multivessel CAD s/p CABG x 3 (COSTA-LAD, SVG-Diag, SVG-OM) ALAA Postoperative respiratory insufficiency following cardiac surgery Postoperative pain Shock Leukocytosis Liver cirrhosis EtOH dependence Increasing LFTs with underlying liver cirrhosis. Plan: DANCE COACH: Awake and alert. No signs and symptoms [...] patient Discussion included: living will, power of erisa attorney, code status at [address] [place] [address] #:[id number] END OF REPORT [facility] 2023-06-14 09:31:[address] [facility] ([facility]) Hospitalist Progress Note REPORT#:[id number] REPORT STATUS: Signed REPORT INITIALIZATION DATE:06/14/23 TIME: 930 PATIENT: MINDY CARTER UNIT #: [id number] ROOM/BED: [place] [address] : 54 AGE: 67 SEX: M ATTEND: [...] 77 95 60 03/17 2300 108/62 80 03/ 2300 78 29 108/59 74 94 03/17 2230 98/65 76 03/17 2230 79 29 95/60 73 94 /17 2200 105/65 81 /17 2200 79 30 100/59 73 94 /17 2130 99/62 76 03/17 2130 74 38 99/54 69 94 03/17 2100 107/59 78 03/17 2100 75 26 107/56 72 94 /17 2030 75 36 111/74 88 95 17 2013 73 95 60 06/12 2013 95 BiPAP 60 06/12 2000 97.6 06/12 2000 109/66 79 03/ 2000 73 28 104/52 67 95 03/ 1942 BiPAP 12 60 06/12 1930 111/64 81 03/17 1930 74 35 [...] Glargine (Semglee) 40 UNIT BEDTIME SUBQ Ipratropium Weston (ATROVENT) 500 MCG RTQ2H PRN PRN INH [...] MG TABLET) 17.2 MG BEDTIME PO Ipratropium Weston (ATROVENT) 500 MCG RTQ4H INH Calcium Chloride [...] soft Extremities: edema, no clubbing, no cyanosis Neuro/DANCE COACH: alert, oriented X 3, CNII-XII intact Skin: [...] (Auto) (14.0 - 32.0 %) 5.3 L [place] % (Auto) (4.8 - 9.0 %) 9.8 H Eos % (Auto) (0.3 - 3.7 %) 0.1 L Baso % (Auto) (0.0 - 2.0 %) 0.2 Neut # (Auto) (2.0 - 7.6 x10 3/uL) 18.88 H Lymph # (Auto) (1.0 - 3.8 x10 3/uL) 1.21 [place] # (Auto) (0.1 - 0.8 x10 3/uL) [...] as needed, long acting insulin as per [facility] Hypertension Renew medications once they have been updated in the computer Now on pressors for hypotension Check labs in the a.m. Patient does not have a living will or medical power of erisa attorney Patient is a full code 06/01 [...] patient Discussion included: living will, power of erisa attorney, code status at 1553 RPT #:[id number] END OF REPORT [facility] 2023-06-13 13:32:00 [facility] Critical Care Progress Note REPORT#:[id number] REPORT STATUS: Signed REPORT INITIALIZATION DATE:06/13/23 TIME: 1331 PATIENT: MINDY CARTER UNIT #: [id number] ROOM/BED: [place] [address] : 54 AGE: 67 SEX: M ATTEND: [...] Ox 95 06/12 899 Pulse 80 06/12 09 Resp 23 06/12 09 FiO2 60 06/12 [...] soft, non-tender, no mass/organomegaly Extremities: edema (2+) Neuro/DANCE COACH: alert, no motor deficits Results Findings/data: Laboratory [...] (Auto) (14.0 - 32.0 %) 3.0 L [place] % (Auto) (4.8 - 9.0 %) 10.6 H Eos % (Auto) (0.3 - 3.7 %) 0.0 L Baso % (Auto) (0.0 - 2.0 %) 0.1 Neut # (Auto) (2.0 - 7.6 x10 3/uL) 21.31 H Lymph # (Auto) (1.0 - 3.8 x10 3/uL) 0.74 L [place] # (Auto) (0.1 - 0.8 x10 3/uL) [...] sounds Extremities no edema, right leg dressed DANCE COACH sedated Diagnosis, Assessment Plan Free text A P: Multivessel CAD s/p CABG x 3 (COSTA-LAD, SVG-Diag, SVG-OM) ALAA Postoperative respiratory insufficiency following cardiac surgery Postoperative pain Shock Leukocytosis Liver cirrhosis EtOH dependence Plan: DANCE COACH: Awake and alert. Pain management with as [...] minutes. Consultants: cardiology, cardiovascular surgery Quality: [facility] Crit Care VTE Prophylaxis VTE prophylaxis initiated: yes Current Medications Current medication review: I attest that the foregoing medication list in the medical record is true, accurate, and complete to the best of my knowledge. Advanced Care Plan 65 or Older Discussed with: patient Discussion included: living will, power of erisa attorney, code status at 1341 RPT #:[id number] END OF REPORT [facility] 2023-06-13 11:31:00 [facility] ([facility]) Cardiothoracic Surgery Prog REPORT#:[id number] REPORT STATUS: Signed REPORT INITIALIZATION DATE:06/13/23 TIME: 1130 PATIENT: MINDY CARTER UNIT #: [id number] ROOM/BED: [place] [address] : 54 AGE: 67 SEX: M ATTEND: [...] 60 06/12 0741 O2 Delivery BiPAP 06/12 0741 O2 Flow Rate 12 06/12 1999 24 [...] patient Discussion included: living will, power of erisa attorney, code status Current Medications Current medication [...] diagnosed. Patient does not live local to [place]. Will consult gastroenterology to see patient. -EtOH cessation 3. Chronic kidney disease -Patient does not live local to [place]. Will consult nephrology to see patient. Patient [...] disease Patient was seen and examined at [facility]. Plan of care discussed with multidisciplinary team [...] CRRT. Patient was seen and examined at [facility]. Plan of care discussed with multidisciplinary team Nephrology following. Appreciate input Continue supportive care, Consultants: cardiology, cardiovascular surgery at 1136 at 2003 RPT #:[id number] END OF REPORT [facility] 2023-06-13 11:28:[address] [facility] ([facility] Nephrology Progress Note REPORT#:[id number] REPORT STATUS: Signed REPORT INITIALIZATION DATE:06/13/23 TIME: 1127 PATIENT: MINDY CARTER UNIT #: [id number] ROOM/BED: [place] [address] : 54 AGE: 67 SEX: M ATTEND: [...] 114/62 77 95 /17 0800 104/66 80 03/17 0800 79 24 107/57 72 95 03/17 0741 BiPAP 60 /17 0730 95/68 76 03/17 0730 79 29 87/72 80 95 03/17 0716 108/60 78 03/ 0716 79 26 104/55 69 95 03/17 [...] 1508 94 High flow 10 nasal cannula /16 1501 80 34 123/56 73 95 03/16 [...] Consultants: cardiology, cardiovascular surgery at 1131 RPT #:[id number] END OF REPORT [facility] 2023-06-13 10:52:00 [phone] [place] [address] PATIENT NAME: MINDY CARTER ADMIT DATE: 05/31/23 ACCOUNT NO: [id number] ROOM NO: G.2202 AGE: 67 REPORT TYPE: eECHOCARDIOGRAM REPORT SEX: M ADMITTING PHYSICIAN:Eleonora Mai MD ATTENDING PHYSICIAN:Kimmie Bacon MD *[place] [address] Transthoracic Echocardiogram Patient: Mindy Carter Study Date: 06/13/2023 BP: 110 / 59 URN: [id number] Location: : 1955 Age: 67 Gender: M Height: 68.9 in / 175 cm Weight: 242.5 lb / 110 kg BMI/BSA: 35.9 kg/m 2 / 2.35 m 2 *Ordering Physician: * Jeremiah Martel MD *Interpreting Physician: * Geovani Hogan MD *Roadability Machine Operator: * Dominic Hadley Indications: R/O EFFUSION. [...] 10:52 at 1052 PATIENT NAME: MINDY CARTER [facility] 2023-06-13 10:27:[address] [facility] ([facility]) Cardiology Progress Note REPORT#:[id number] REPORT STATUS: Signed REPORT INITIALIZATION DATE:06/13/23 TIME: 1026 PATIENT: MINDY CARTER UNIT #: [id number] ROOM/BED: [place] [address] : 54 AGE: 67 SEX: M ATTEND: [...] 06/12 0630 78 37 100/45 61 95 06/12 0600 86 38 114/47 65 99 03/17 [...] /16 1340 79 23 127/55 72 97 06/11 1330 79 23 121/53 69 95 /16 1300 80 35 113/60 76 91 06/11 1230 80 30 124/56 74 95 /16 1200 99/56 69 /16 1200 79 34 123/56 74 93 16 1136 97 High flow 12 nasal cannula 06/11 1120 79 33 124/54 72 95 /16 1100 102/59 73 06/11 1100 77 26 139/59 78 95 06/11 1037 74 33 108/57 77 94 PATIENT WEIGHT: Weight (lb): 252 Weight (oz): 6.87 Weight (kg): 114.500 Medications: Active Meds + DC'd Last 24 Hrs Ipratropium Weston (ATROVENT) 500 MCG RTQ2H PRN PRN INH [...] MG TABLET) 17.2 MG BEDTIME PO Ipratropium Weston (ATROVENT) 500 MCG RTQ4H INH Acetaminophen (TYLENOL) [...] no mass/organomegaly, no pulsatile mass, no rebound Neuro/DANCE COACH: no motor deficits Results Findings/Data: Laboratory Tests [...] (Auto) (14.0 - 32.0 %) 3.0 L [place] % (Auto) (4.8 - 9.0 %) 10.6 H Eos % (Auto) (0.3 - 3.7 %) 0.0 L Baso % (Auto) (0.0 - 2.0 %) 0.1 Neut # (Auto) (2.0 - 7.6 x10 3/uL) 21.31 H Lymph # (Auto) (1.0 - 3.8 x10 3/uL) 0.74 L [place] # (Auto) (0.1 - 0.8 x10 3/uL) [...] discussed with cvicu nurse at 1029 RPT #:[id number] END OF REPORT [facility] 2023-06-13 09:14:[address] [facility] ([facility]) Hospitalist Progress Note REPORT#:[id number] REPORT STATUS: Signed REPORT INITIALIZATION DATE:06/13/23 TIME: 913 PATIENT: MINDY CARTER UNIT #: [id number] ROOM/BED: [place] [address] : 54 AGE: 67 SEX: M ATTEND: [...] 87/72 80 95 06/12 0716 108/60 78 03/17 0716 79 26 [...] 124/60 75 100 03/16 1800 98/54 70 06/11 1800 79 32 [...] Meds + DC'd Last 24 Hrs Ipratropium Weston (ATROVENT) 500 MCG RTQ2H PRN PRN INH [...] MG TABLET) 17.2 MG BEDTIME PO Ipratropium Weston (ATROVENT) 500 MCG RTQ4H INH Albumin Human [...] soft Extremities: edema, no clubbing, no cyanosis Neuro/DANCE COACH: alert, oriented X 3, CNII-XII intact Skin: [...] (Auto) (14.0 - 32.0 %) 3.0 L [place] % (Auto) (4.8 - 9.0 %) 10.6 H Eos % (Auto) (0.3 - 3.7 %) 0.0 L Baso % (Auto) (0.0 - 2.0 %) 0.1 Neut # (Auto) (2.0 - 7.6 x10 3/uL) 21.31 H Lymph # (Auto) (1.0 - 3.8 x10 3/uL) 0.74 L [place] # (Auto) (0.1 - 0.8 x10 3/uL) [...] Report Impression - Status: SIGNED Entered: 06/13/2023 1736 IMPRESSION: 1. Lines and tubes, as above. [...] a living will or medical power of erisa attorney Patient is a full code 06/01 [...] patient Discussion included: living will, power of erisa attorney, code status at 1550 [facility] #:[id number] END OF REPORT [facility] 2023-06-13 03:56:00 [id number] [place] [address] PATIENT NAME: MINDY CARTER ADMIT DATE: 05/31/23 ACCOUNT NO: [id number] ROOM NO: 2202 AGE: 67 REPORT TYPE: eELECTROCARDIOGRAM REPORT SEX: M ADMITTING PHYSICIAN:Eleonora Mai MD ATTENDING PHYSICIAN:Kimmie Bacon MD Order: [id number] Test Reason : POD2 Test Date/Time Stamp: [place] Jun 13 2023 03:56:15 Blood Pressure : / mmHG Vent. Rate : 086 BPM Atrial Rate : 086 BPM P-R Int : 094 ms QRS Dur : 142 ms QT Int : 410 ms P-R-T Axes : 028 -69 053 degrees QTc Int : 490 ms Sinus rhythm with short LA Left axis deviation Right bundle branch block Inferior infarct , new Anteroseptal infarct (cited on or before 31-MAY-2023) Abnormal ECG When compared with ECG of 12-JUN-2023 02:19, Significant changes have occurred Confirmed by TAO CARMEN MD ([id number]) on 06/14/2023 8:36:33 AM Referred By: Self Referred Confirmed by:TAO CARMEN MD at 0836 PATIENT NAME: MINDY CARTER [facility] 2023-06-12 19:34:00 [facility] Nephrology Progress Note REPORT#:[id number] REPORT STATUS: Signed REPORT INITIALIZATION DATE:06/12/23 TIME: 1933 PATIENT: MINDY CARTER UNIT #: [id number] ROOM/BED: [place] [address] : 54 AGE: 67 SEX: M ATTEND: [...] Mean Ox Delivery Rate 06/12 0915 37.1 03/17 0900 109/70 84 03/17 [...] 1999 36.7 03/16 2000 Nasal 12 cannula /16 1999 101/59 76 03/16 1999 76 32 117/56 71 99 03/16 1940 98/53 69 /16 1940 75 24 122/58 73 100 03/16 1930 77 34 120/57 73 98 /16 1925 100 High flow 8 nasal cannula /16 1920 96/54 70 03/16 1920 75 23 121/57 73 97 /16 1900 94/54 67 03/16 1900 75 22 124/60 75 100 03/16 1800 98/54 70 03/16 1800 79 32 121/57 73 95 /16 1730 80 34 128/60 78 94 03/16 [...] /16 1420 80 36 122/55 72 95 03/16 1400 97/65 76 /16 1400 81 30 127/59 76 93 /16 1340 79 23 127/55 72 97 /16 1330 79 23 121/53 69 95 /16 1300 80 35 113/60 76 91 /16 1230 80 30 124/56 74 95 /16 1200 99/56 69 03/16 1200 79 34 123/56 74 93 /16 [...] Consultants: cardiology, cardiovascular surgery at 1104 RPT #:[id number] END OF REPORT [facility] 2023-06-12 14:00:00 [phone] [address] PATIENT NAME: MINDY CARTER ADMIT DATE: 05/31/23 ACCOUNT NO: [id number] ROOM NO: [facility] AGE: 67 REPORT TYPE: OPERATIVE REPORT SEX: [...] 4. Posterior pericardiotomy. SURGEON: Jeremiah Martel M.D. BATON TWIRLER: Seven Bradshaw. ANESTHESIOLOGIST: Dr. Berg. ANESTHESIA: General endotracheal anesthesia. ESTIMATED BLOOD LOSS: 100 mL. INDICATIONS: Mr. Carter is a 63-year-old gentleman with severe triple-vessel coronary artery disease and liver cirrhosis, chronic kidney disease, who presented to the hospital with chest pain. He was ruled in for non-ST elevation HI. Coronary angiogram showed severe coronary artery disease. [...] in size. Arteriotomy was performed with a Cordova blade and extended with Pulido scissors. A [...] mm size. Arteriotomy was performed with a Cordova blade and extended with Pulido scissors. A [...] in size. Arteriotomy was performed with a Cordova blade and extended with Pulido scissors. COSTA was anastomosed in end-to-side manner using running 8-0 Prolene suture. COSTA pedicle tacked to epicardium using two interrupted 6-0 Prolene suture. A slit was made in the pericardium, left aspect, so as to accommodate the COSTA. Careful de-aeration was performed and the crossclamp was released. One ventricular wire was placed. A 28-Ugandan chest tube was placed in the mediastinum and 28-Ugandan angled chest tube was placed in the [...] Date Transcribed: 06/12/2023 18:30:11 SHRADDHA/SHIRA Receipt ID: [id number] Authenticated and Edited by Nathaniel Martel MD On 06/13/23 6:28:19 AM at 0631 PATIENT NAME: MINDY CARTER [facility] 2023-06-12 10:54:00 [facility] Cardiology Progress Note REPORT#:[id number] REPORT STATUS: Signed REPORT INITIALIZATION DATE:06/12/23 TIME: 105 PATIENT: MINDY CARTER UNIT #: [id number] ROOM/BED: [place] [address] : 54 AGE: 67 SEX: M ATTEND: [...] 03/15 2101 91 42 137/54 79 97 03/15 2100 High flow 12 nasal cannula 03/15 2100 91 36 139/51 98 06/10 2042 108/57 77 06/10 2042 82 121/54 73 89 06/11 2039 91 Ventilator 100 06/11 2039 81 91 100 06/10 1150 96 Nasal 2 cannula 06/10 1123 36.7 93 18 119/74 89.2 99 PATIENT WEIGHT: Weight (lb): 242 Weight (oz): 8.14 Weight (kg): 110.000 Medications: Active Meds + DC'd Last 24 Hrs Ipratropium Weston (ATROVENT) 500 MCG RTQ2H PRN PRN INH [...] (SUBLIMAZE) 0 .STK-MED ONE IV (DC) Ipratropium Weston (ATROVENT) 500 MCG RTQ4H INH Acetaminophen (TYLENOL) [...] (ZOFRAN) 0 .STK-MED ONE .ROUTE (DC) Rocuronium Weston (ZEMURON) 0 .STK-MED ONE IV (DC) Albumin [...] no mass/organomegaly, no pulsatile mass, no rebound Neuro/DANCE COACH: no motor deficits Results Findings/Data: Laboratory Tests 06/11 06/11 06/11 06/10 0632 0400 0243 2308 Blood Gas Puncture Site Art Line [...] 5 Pressure Support (cmH2O) 12 12 06/10 06/10 06/10 06/10 2132099 190 Blood Gas Puncture Site Art Line [...] 06/11 06/11 06/11 06/10 0632 0400 0245 0200 3744 Chemistry Sodium (134 - 147 mEq/L) 138 [...] 180 H 218 H Laboratory Tests 06/11 190 1847 Coagulation INR (0.8 - 1.2) [...] - 32.0 %) 2.1 L 7.8 L [place] % (Auto) (4.8 - 9.0 %) 8.0 4.0 L Eos % (Auto) (0.3 - 3.7 %) 0.1 L 1.2 Baso % (Auto) (0.0 - 2.0 %) 0.3 0.6 Neut # (Auto) (2.0 - 7.6 x10 3/uL) 24.24 H 29.79 H Lymph # (Auto) (1.0 - 3.8 x10 3/uL) 0.57 L 2.77 [place] # (Auto) (0.1 - 0.8 x10 3/uL) [...] appearance of the chest. Impression By: Alla - Orlando Trimble M.D. RADIOLOGY - XR CHEST 1 V 06/12 831 Report Impression - Status: SIGNED Entered: 06/12/2023854 [...] PT discussed with nurse at 1058 RPT #:[id number] END OF REPORT [facility] 2023-06-12 09:53:00 [facility] Critical Care Progress Note REPORT#:[id number] REPORT STATUS: Signed REPORT INITIALIZATION DATE:06/12/23 TIME: 952 PATIENT: MINDY CARTER UNIT #: [id number] ROOM/BED: [place] [address] : 54 AGE: 67 SEX: M ATTEND: Kimmie Bacon MD ADM AUTHOR: Dora Resendez MD REPT SERVICE DT/TIME: 06/12/23952 * ALL edits or amendments must be [...] Ox 96 06/11 700 B/P 111/45 06/11 700 B/P Mean 63 06/11 700 Pulse 77 06/11 07 Resp 33 06/11 700 O2 Delivery Nasal cannula 06/11 699 O2 Flow Rate 12 06/11 07 Temp [...] soft, non-tender, no mass/organomegaly Extremities: edema (2+) Neuro/DANCE COACH: alert, no motor deficits Results Findings/data: Laboratory [...] PEEP (cmH2O) 5 8 Pressure Support (cmH2O) 06/10 1845 1817 1750 Blood Gas O2 [...] 180 H 218 H Laboratory Tests 06/11 1952 1908 1847 Coagulation INR (0.8 - 1.2) 1.2 1.3 H PTT (Meriwether) (25.0 - 39.5 Seconds) 31.2 35.8 PT [...] - 32.0 %) 2.1 L 7.8 L [place] % (Auto) (4.8 - 9.0 %) 8.0 4.0 L Eos % (Auto) (0.3 - 3.7 %) 0.1 L 1.2 Baso % (Auto) (0.0 - 2.0 %) 0.3 0.6 Neut # (Auto) (2.0 - 7.6 x10 3/uL) 24.24 H 29.79 H Lymph # (Auto) (1.0 - 3.8 x10 3/uL) 0.57 L 2.77 [place] # (Auto) (0.1 - 0.8 x10 3/uL) [...] x10 3/uL) 0.00 0.00 Laboratory Tests 06/12/23 020: [Embedded Image Not Available] 06/11/232046: [Embedded Image [...] sounds Extremities no edema, right leg dressed DANCE COACH sedated Diagnosis, Assessment Plan Free text A P: Multivessel CAD s/p CABG x 3 (COSTA-LAD, SVG-Diag, SVG-OM) ALAA Postoperative respiratory insufficiency following cardiac surgery Postoperative pain Shock Leukocytosis Liver cirrhosis EtOH dependence Plan: DANCE COACH: Awake and alert. Pain management with as [...] 40 minutes. Consultants: cardiology, cardiovascular surgery Quality: [facility] Crit Care VTE Prophylaxis VTE prophylaxis initiated: yes Current Medications Current medication review: I attest that the foregoing medication list in the medical record is true, accurate, and complete to the best of my knowledge. Advanced Care Plan 65 or Older Discussed with: patient Discussion included: living will, power of erisa attorney, code status at 1009 RPT #:[id number] END OF REPORT [facility] 2023-06-12 09:36:00 [facility] Hospitalist Progress Note REPORT#:[id number] REPORT STATUS: Signed REPORT INITIALIZATION DATE:06/12/23 TIME: 935 PATIENT: MINDY CARTER UNIT #: [id number] ROOM/BED: [place] [address] : 54 AGE: 67 SEX: M ATTEND: [...] 63 96 /16 0700 Nasal 12 cannula /16 0700 92/54 68 03/16 0700 76 31 [...] 03/15 2240 100 28 96/49 62 94 06/10 2220 94/55 67 06/100 100 30 103/52 66 94 06/10 2211 98 23 105/51 66 95 06/10 2200 95/55 70 06/10 2200 99 33 109/54 70 92 06/105 97 High flow 12 68 nasal cannula 06/10 2141 97 33 111/55 71 93 06/10 2140 96/54 69 06/10 2140 96 23 109/54 70 93 06/101 94/57 69 06/10 212 93 29 110/55 70 93 06/10 2110 92 35 131/56 78 95 06/10 2101 [...] Meds + DC'd Last 24 Hrs Ipratropium Weston (ATROVENT) 500 MCG RTQ2H PRN PRN INH [...] (SUBLIMAZE) 0 .STK-MED ONE IV (DC) Ipratropium Weston (ATROVENT) 500 MCG RTQ4H INH Acetaminophen (TYLENOL) [...] soft Extremities: edema, no clubbing, no cyanosis Neuro/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 COACH: alert, oriented X 3, CNII-XII intact Skin: [...] Pressure Support (cmH2O) 12 06/10 2139 2100 1954 1906 Blood Gas Puncture Site Art Line [...] (0.8 - 1.2) 1.2 1.3 H PTT (Meriwether) (25.0 - 39.5 Seconds) 31.2 35.8 PT [...] - 32.0 %) 2.1 L 7.8 L [place] % (Auto) (4.8 - 9.0 %) 8.0 4.0 L Eos % (Auto) (0.3 - 3.7 %) 0.1 L 1.2 Baso % (Auto) (0.0 - 2.0 %) 0.3 0.6 Neut # (Auto) (2.0 - 7.6 x10 3/uL) 24.24 H 29.79 H Lymph # (Auto) (1.0 - 3.8 x10 3/uL) 0.57 L 2.77 [place] # (Auto) (0.1 - 0.8 x10 3/uL) [...] Chest tube in place Cardiology, CT surgery, [facility] on board Leukocytosis: Likely reactive Monitor and defer to further management to ICC Diabetes mellitus A1c 8.4% Sliding scale insulin as needed Hypertension Renew medications once they have been updated in the computer Check labs in the a.m. Patient does not have a living will or medical power of erisa attorney Patient is a full code 06/01 [...] patient Discussion included: living will, power of erisa attorney, code status at 1635 RPT #:[id number] END OF REPORT [facility] 2023-06-12 05:57:00 [facility] Cardiothoracic Surgery Prog REPORT#:[id number] REPORT STATUS: Signed REPORT INITIALIZATION DATE:06/12/23 TIME: 556 PATIENT: MINDY CARTER UNIT #: [id number] ROOM/BED: [place] [address] : 54 AGE: 67 SEX: M ATTEND: [...] patient Discussion included: living will, power of erisa attorney, code status Current Medications Current medication [...] diagnosed. Patient does not live local to [place]. Will consult gastroenterology to see patient. -EtOH cessation 3. Chronic kidney disease -Patient does not live local to [place]. Will consult nephrology to see patient. Patient [...] disease Patient was seen and examined at [facility]. Plan of care discussed with multidisciplinary team Consultants: cardiology, cardiovascular surgery at 1412 at 0732 [facility] #:[id number] END OF REPORT [facility] 2023-06-12 02:19:00 [phone] [place] [id number] PATIENT NAME: MINDY CARTER ADMIT DATE: 05/31/23 ACCOUNT NO: [id number] ROOM NO: [facility] AGE: 67 REPORT TYPE: eELECTROCARDIOGRAM REPORT SEX: M ADMITTING PHYSICIAN:Eleonora Mai MD ATTENDING PHYSICIAN:Kimmie Bacon MD Order: [id number] Test Reason : pod 1 Test Date/Time [...] Nathan at 1035 PATIENT NAME: MINDY CARTER [facility] 2023-06-11 22:27:00 [id number] [place] [address] PATIENT NAME: MINDY CARTER ADMIT DATE: 05/31/23 ACCOUNT NO: [id number] ROOM NO: G.2202 AGE: 67 REPORT TYPE: eELECTROCARDIOGRAM REPORT SEX: M ADMITTING PHYSICIAN:Eleonora Mai MD ATTENDING PHYSICIAN:Denise Montejo MD Order: [id number] Test Reason : pod 0 Test Date/Time [...] 5:51:00 AM Referred By: Self Referred Confirmed by:Clatyon Nathan at 0551 PATIENT NAME: MINDY CARTER [facility] 2023-06-11 21:31:[address] [facility] ([facility]) Critical Care Consult Note REPORT#:[id number] REPORT STATUS: Signed REPORT INITIALIZATION DATE:06/11/23 TIME: 2130 PATIENT: MINDY CARTER UNIT #: [id number] ROOM/BED: [place] [address] : 54 AGE: 67 SEX: M ATTEND: Kimmie Bacon MD ADM AUTHOR: Kareem Mcdonnell MD REPT SERVICE DT/TIME: 06/11/232130 * ALL edits or amendments must be made on the electronic/computer document * History of Present Illness HPI Requesting clinician: Dr Martel Reason for consult: Critical care management Chief complaint: CABG x 3 (COSTA-LAD, SVG-Diag, SVG-OM) EVH (RGSV) ALAJusten PP PCP: PCP: No Primary or Family [...] 119/74 06/10 1123 B/P Mean 89.2 06/10 112 Temp 36.7 06/10 1123 Resp 18 06/10 [...] Meds + DC'd Last 24 Hrs Ipratropium Weston (ATROVENT) 500 MCG RTQ2H PRN PRN INH [...] (SUBLIMAZE) 0 .STK-MED ONE IV (DC) Ipratropium Weston (ATROVENT) 500 MCG RTQ4H INH Acetaminophen (TYLENOL) [...] (ZOFRAN) 0 .STK-MED ONE .ROUTE (DC) Rocuronium Weston (ZEMURON) 0 .STK-MED ONE IV (DC) Albumin [...] (3.4 - 5.0 g/dL) 3.40 Laboratory Tests 03/06/10 1908 1847 1819 1751 Coagulation Activated Coag Time (74 - 137 SEC) 141 H 590 H 650 H 574 H 158 H 06/10 06/10 0851 0309 Coagulation INR (0.8 - 1.2) 1.1 PTT (Meriwether) (25.0 - 39.5 Seconds) 73.2 H 52.9 H PT Patient/Control Mix (9.3 - 12.9 SECONDS) 12.2 Laboratory Tests 06/107 0309 Hematology WBC (4.5 - 11.0 x10 [...] - 32.0 %) 7.8 L 8.5 L [place] % (Auto) (4.8 - 9.0 %) 4.0 L 12.6 H Eos % (Auto) (0.3 - 3.7 %) 1.2 3.6 Baso % (Auto) (0.0 - 2.0 %) 0.6 0.7 Neut # (Auto) (2.0 - 7.6 x10 3/uL) 29.79 H 5.26 Lymph # (Auto) (1.0 - 3.8 x10 3/uL) 2.77 0.61 L [place] # (Auto) (0.1 - 0.8 x10 3/uL) [...] 927 Report Impression - Status: SIGNED Entered: 06/11/2023942 [...] sounds Extremities no edema, right 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 at 0723 RPT #:[id number] END OF REPORT [facility] 2023-06-11 20:05:[address] [facility] ([facility]) Brief Op Note REPORT#:[id number] REPORT STATUS: Signed REPORT INITIALIZATION DATE:06/11/23 TIME: 2004 PATIENT: MINDY CARTER UNIT #: [id number] ROOM/BED: [place] [address] : 54 AGE: 67 SEX: M ATTEND: Kimmie Bacon MD ADM AUTHOR: Nathaniel Martel MD REPT SERVICE DT/TIME: 06/11/232004 * ALL edits or amendments must be made on the electronic/computer document * Op/Inv Proc Note - Brief Pre-procedure diagnosis: CAD Post-procedure diagnosis: same as pre procedure dx Procedures performed: CABG x 3 (COSTA-LAD, SVG-Diag, SVG-OM) EVH (RGSV) ALAA PP Primary Surgeon: [employer] [employer] Person(s): Seven Bradshaw Findings: LAD-2mm Complications: none Estimated blood loss in ml's: 100 cc Specimens removed/altered: SEFERINO at 0732 RPT #:[id number] END OF REPORT [facility] 2023-06-11 13:06:[address] [facility] ([facility] Gastroenterology Progress Note REPORT#:[id number] REPORT STATUS: Signed REPORT INITIALIZATION DATE:06/11/23 TIME: 130 PATIENT: MINDY CARTER UNIT #: [id number] ROOM/BED: [place] [id number] : 53 AGE: 67 SEX: M ATTEND: [...] (ZOFRAN) 0 .STK-MED ONE .ROUTE (DC) Rocuronium [place] (ZEMURON) 0 .STK-MED ONE IV (DC) Albumin [...] guarding Extremities: moves all Musculoskeletal: normal inspection Neuro/DANCE COACH: alert, oriented X 3, normal speech Skin: [...] (Auto) (14.0 - 32.0 %) 8.5 L [place] % (Auto) (4.8 - 9.0 %) 12.6 H Eos % (Auto) (0.3 - 3.7 %) 3.6 Baso % (Auto) (0.0 - 2.0 %) 0.7 Neut # (Auto) (2.0 - 7.6 x10 3/uL) 5.26 Lymph # (Auto) (1.0 - 3.8 x10 3/uL) 0.61 L [place] # (Auto) (0.1 - 0.8 x10 3/uL) [...] Attestation needed: supervising physician Rigoberto Jarrell 06/11/23 9927: Attestations Physician Attestation Agree w/findings plan: Agree with the findings and plan as documented by RAHUL Tobias. at 1556 at 2257 RPT #:[id number] END OF REPORT [facility] 2023-06-11 12:59:00 [facility] ([facility] Hospitalist Progress Note REPORT#:[id number] REPORT STATUS: Signed REPORT INITIALIZATION DATE:06/11/23 TIME: 1258 PATIENT: MINDY CARTER UNIT #: [id number] ROOM/BED: [place] [address] : 54 AGE: 67 SEX: M ATTEND: [...] distention Extremities: edema, no clubbing, no cyanosis Neuro/DANCE COACH: alert, oriented X 3, CNII-XII intact Skin: [...] Coagulation INR (0.8 - 1.2) 1.1 PTT (Meriwether) (25.0 - 39.5 Seconds) 73.2 H 52.9 [...] (Auto) (14.0 - 32.0 %) 8.5 L [place] % (Auto) (4.8 - 9.0 %) 12.6 H Eos % (Auto) (0.3 - 3.7 %) 3.6 Baso % (Auto) (0.0 - 2.0 %) 0.7 Neut # (Auto) (2.0 - 7.6 x10 3/uL) 5.26 Lymph # (Auto) (1.0 - 3.8 x10 3/uL) 0.61 L [place] # (Auto) (0.1 - 0.8 x10 3/uL) [...] 0.1 x10 3/uL) 0.00 Laboratory Tests 06/09 1539 Serology SARS-CoV-2 Ag (Rapid) (Negative) Negative Microbiology Date/Time Procedure - Status Source Growth 06/09 153 MSSA Surveillance Screen - COMP NASAL 06/09 153 MRSA DNA Surveillance Screen - COMP NASAL [...] a living will or medical power of erisa attorney Patient is a full code 06/01 [...] cabg tomorrow 06/10- pending cabg Quality: Gen [facility] Crit Care VTE Prophylaxis VTE prophylaxis initiated: yes Current Medications Current medication review: I attest that the foregoing medication list in the medical record is true, accurate, and complete to the best of my knowledge. Advanced Care Plan 65 or Older Discussed with: patient Discussion included: living will, power of erisa attorney, code status at 1301 RPT #:[id number] END OF REPORT [facility] 2023-06-11 12:10:00 [facility] Nephrology Progress Note REPORT#:[id number] REPORT STATUS: Signed REPORT INITIALIZATION DATE:06/11/23 TIME: 1210 PATIENT: MINDY CARTER UNIT #: [id number] ROOM/BED: [place] [address] : 54 AGE: 67 SEX: M ATTEND: [...] Consultants: cardiology, cardiovascular surgery at 1212 RPT #:[id number] END OF REPORT [facility] 2023-06-11 08:37:[address] [facility] ([facility]) Cardiology Progress Note REPORT#:[id number] REPORT STATUS: Signed REPORT INITIALIZATION DATE:06/11/23 TIME: 836 PATIENT: MINDY CARTER UNIT #: [id number] ROOM/BED: [place] [address] : 54 AGE: 67 SEX: M ATTEND: [...] aspirin statin and beta-blockers at 0837 RPT #:[id number] END OF REPORT [facility] 2023-06-10 15:20:[address] [facility] ([facility]) Hospitalist Progress Note REPORT#:[id number] REPORT STATUS: Signed REPORT INITIALIZATION DATE:06/10/23 TIME: 1520 PATIENT: MINDY CARTER UNIT #: [id number] ROOM/BED: 3360-1 : 54 AGE: 67 SEX: [...] distention Extremities: edema, no clubbing, no cyanosis Neuro/DANCE COACH: alert, oriented X 3, CNII-XII intact Skin: [...] (Auto) (14.0 - 32.0 %) 8.5 L [place] % (Auto) (4.8 - 9.0 %) 12.0 H Eos % (Auto) (0.3 - 3.7 %) 3.9 H Baso % (Auto) (0.0 - 2.0 %) 0.7 Neut # (Auto) (2.0 - 7.6 x10 3/uL) 6.05 Lymph # (Auto) (1.0 - 3.8 x10 3/uL) 0.70 L [place] # (Auto) (0.1 - 0.8 x10 3/uL) [...] a living will or medical power of erisa attorney Patient is a full code 06/01 [...] patient Discussion included: living will, power of erisa attorney, code status at 1523 RPT #:[id number] END OF REPORT [facility] 2023-06-10 11:09:00 [facility] Cardiothoracic Surgery Prog REPORT#:[id number] REPORT STATUS: Signed REPORT INITIALIZATION DATE:06/10/23 TIME: 110 PATIENT: MINDY CARTER UNIT #: [id number] ROOM/BED: [place] [address] : 54 AGE: 67 SEX: M ATTEND: [...] 127/79 06/09 1129 B/P Mean 0.0 06/09 112 O2 Delivery Room air 06/09 112 Temp 36.7 06/09 1129 Pulse 90 06/09 [...] Tests 06/09 06/09 06/09 06/09 06/08 1126 0832 0892 0424 2010 Chemistry Sodium (134 - 147 [...] H Laboratory Tests 06/09 0424 Coagulation PTT (Meriwether) (25.0 - 39.5 Seconds) 59.1 H Laboratory [...] (Auto) (14.0 - 32.0 %) 8.5 L [place] % (Auto) (4.8 - 9.0 %) 12.0 H Eos % (Auto) (0.3 - 3.7 %) 3.9 H Baso % (Auto) (0.0 - 2.0 %) 0.7 Neut # (Auto) (2.0 - 7.6 x10 3/uL) 6.05 Lymph # (Auto) (1.0 - 3.8 x10 3/uL) 0.70 L [place] # (Auto) (0.1 - 0.8 x10 3/uL) [...] patient Discussion included: living will, power of erisa attorney, code status Current Medications Current medication [...] diagnosed. Patient does not live local to [place]. Will consult gastroenterology to see patient. -EtOH cessation 3. Chronic kidney disease -Patient does not live local to [place]. Will consult nephrology to see patient. Patient [...] Consultants: cardiology, cardiovascular surgery at 1026 RPT #:[id number] END OF REPORT [facility] 2023-06-10 10:55:[address] [facility] ([facility]) Gastroenterology Progress Note REPORT#:[id number] REPORT STATUS: Signed REPORT INITIALIZATION DATE:06/10/23 TIME: 105 PATIENT: MINDY CARTER UNIT #: [id number] ROOM/BED: [place] [address] : 54 AGE: 67 SEX: M ATTEND: [...] guarding Extremities: moves all Musculoskeletal: normal inspection Neuro/DANCE COACH: alert, oriented X 3, normal speech Skin: [...] (Auto) (14.0 - 32.0 %) 8.5 L [place] % (Auto) (4.8 - 9.0 %) 12.0 H Eos % (Auto) (0.3 - 3.7 %) 3.9 H Baso % (Auto) (0.0 - 2.0 %) 0.7 Neut # (Auto) (2.0 - 7.6 x10 3/uL) 6.05 Lymph # (Auto) (1.0 - 3.8 x10 3/uL) 0.70 L [place] # (Auto) (0.1 - 0.8 x10 3/uL) [...] RAHUL Tobias. at 1422 at 2026 RPT #:[id number] END OF REPORT [facility] 2023-06-10 06:47:[address] [facility] ([facility] Cardiology Progress Note REPORT#:[id number] REPORT STATUS: Signed REPORT INITIALIZATION DATE:06/10/23 TIME: 646 PATIENT: MINDY CARTER UNIT #: [id number] ROOM/BED: [place] [address] : 54 AGE: 67 SEX: M ATTEND: [...] aspirin statin and beta-blockers at 0823 RPT #:[id number] END OF REPORT [facility] 2023-06-09 13:38:00 [facility] Nephrology Progress Note REPORT#:[id number] REPORT STATUS: Signed REPORT INITIALIZATION DATE:06/09/23 TIME: 1337 PATIENT: MINDY CARTER UNIT #: [id number] ROOM/BED: [place] [address] : 54 AGE: 67 SEX: M ATTEND: [...] Consultants: cardiology, cardiovascular surgery at 1454 RPT #:[id number] END OF REPORT [facility] 2023-06-09 13:01:[address] [facility] ([facility]) Cardiothoracic Surgery Prog REPORT#:[id number] REPORT STATUS: Signed REPORT INITIALIZATION DATE:06/09/23 TIME: 1301 PATIENT: MINDY CARTER UNIT #: [id number] ROOM/BED: [place] [address] : 54 AGE: 67 SEX: M ATTEND: [...] H Laboratory Tests 06/08 0540 Coagulation PTT (Meriwether) (25.0 - 39.5 Seconds) 62.5 H Laboratory [...] (Auto) (14.0 - 32.0 %) 9.0 L [place] % (Auto) (4.8 - 9.0 %) 11.4 H Eos % (Auto) (0.3 - 3.7 %) 3.7 Baso % (Auto) (0.0 - 2.0 %) 0.9 Neut # (Auto) (2.0 - 7.6 x10 3/uL) 6.72 Lymph # (Auto) (1.0 - 3.8 x10 3/uL) 0.82 L [place] # (Auto) (0.1 - 0.8 x10 3/uL) [...] patient Discussion included: living will, power of erisa attorney, code status Current Medications Current medication [...] diagnosed. Patient does not live local to [place]. Will consult gastroenterology to see patient. -EtOH cessation 3. Chronic kidney disease -Patient does not live local to [place]. Will consult nephrology to see patient. Patient [...] Consultants: cardiology, cardiovascular surgery at 1011 RPT #:[id number] END OF REPORT [facility] 2023-06-09 13:00:[address] [facility] ([facility]) Gastroenterology Progress Note REPORT#:[id number] REPORT STATUS: Signed REPORT INITIALIZATION DATE:06/09/23 TIME: 1300 PATIENT: MINDY CARTER UNIT #: [id number] ROOM/BED: [place] [address] : 54 AGE: 67 SEX: M ATTEND: [...] guarding Extremities: moves all Musculoskeletal: normal inspection Neuro/DANCE COACH: alert, oriented X 3, normal speech Skin: dry, intact, normal color Psychiatry: normal affect, normal judgment/insight, normal mood Results Findings/Data: Laboratory Tests 06/09/2340: [Embedded Image Not Available] Laboratory Tests 06/08 [...] 110 MG/DL) 313 H Laboratory Tests 06/08 05 Coagulation PTT (Meriwether) (25.0 - 39.5 Seconds) 62.5 H Laboratory [...] (Auto) (14.0 - 32.0 %) 9.0 L [place] % (Auto) (4.8 - 9.0 %) 11.4 H Eos % (Auto) (0.3 - 3.7 %) 3.7 Baso % (Auto) (0.0 - 2.0 %) 0.9 Neut # (Auto) (2.0 - 7.6 x10 3/uL) 6.72 Lymph # (Auto) (1.0 - 3.8 x10 3/uL) 0.82 L [place] # (Auto) (0.1 - 0.8 x10 3/uL) [...] RAHUL Tobias. at 1659 at 1950 RPT #:[id number] END OF REPORT [facility] 2023-06-09 12:46:00 [facility] Hospitalist Progress Note REPORT#:[id number] REPORT STATUS: Signed REPORT INITIALIZATION DATE:06/09/23 TIME: 124 PATIENT: MINDY CARTER UNIT #: [id number] ROOM/BED: [place] [address] : 54 AGE: 67 SEX: M ATTEND: [...] O2 Flow FiO2 Mean Ox Delivery Rate 03/13 1131 98.2 92 18 133/77 0.0 96 [...] distention Extremities: edema, no clubbing, no cyanosis Neuro/DANCE COACH: alert, oriented X 3, CNII-XII intact Skin: dry, intact, no rash Results Findings/Data: Laboratory Tests 06/08 06/08 06/07 06/07 06/07 0725 0540 2227 2006 1551 Chemistry Sodium (134 - 147 mEq/L) [...] 1.76 Laboratory Tests 06/08 0540 Coagulation PTT (Meriwether) (25.0 - 39.5 Seconds) 62.5 H Laboratory [...] (Auto) (14.0 - 32.0 %) 9.0 L [place] % (Auto) (4.8 - 9.0 %) 11.4 H Eos % (Auto) (0.3 - 3.7 %) 3.7 Baso % (Auto) (0.0 - 2.0 %) 0.9 Neut # (Auto) (2.0 - 7.6 x10 3/uL) 6.72 Lymph # (Auto) (1.0 - 3.8 x10 3/uL) 0.82 L [place] # (Auto) (0.1 - 0.8 x10 3/uL) [...] a living will or medical power of erisa attorney Patient is a full code 06/01 [...] patient Discussion included: living will, power of erisa attorney, code status at 1251 RPT #:[id number] END OF REPORT [facility] 2023-06-08 21:12:00 [facility] Hospitalist Progress Note REPORT#:[id number] REPORT STATUS: Signed REPORT INITIALIZATION DATE:06/08/23 TIME: 2111 PATIENT: MINDY CARTER UNIT #: [id number] ROOM/BED: [place] [address] : 54 AGE: 67 SEX: M ATTEND: [...] distention Extremities: edema, no clubbing, no cyanosis Neuro/DANCE COACH: alert, oriented X 3, CNII-XII intact Skin: [...] mg/dL) 1.89 Laboratory Tests 06/076 Coagulation PTT (Rashida) (25.0 - 39.5 Seconds) [...] (Auto) (14.0 - 32.0 %) 8.1 L [place] % (Auto) (4.8 - 9.0 %) 10.4 H Eos % (Auto) (0.3 - 3.7 %) 3.4 Baso % (Auto) (0.0 - 2.0 %) 0.7 Neut # (Auto) (2.0 - 7.6 x10 3/uL) 6.95 Lymph # (Auto) (1.0 - 3.8 x10 3/uL) 0.74 L [place] # (Auto) (0.1 - 0.8 x10 3/uL) [...] a living will or medical power of erisa attorney Patient is a full code 06/01 [...] symptoms of dyspnea. Monitor I'O's. Quality: [facility] Crit Care VTE Prophylaxis VTE prophylaxis initiated: yes Current Medications Current medication review: I attest that the foregoing medication list in the medical record is true, accurate, and complete to the best of my knowledge. Advanced Care Plan 65 or Older Discussed with: patient Discussion included: living will, power of erisa attorney, code status at 2115 RPT #:[id number] END OF REPORT [facility] 2023-06-08 16:11:[address] [facility] ([facility] Nephrology Progress Note REPORT#:[id number] REPORT STATUS: Signed REPORT INITIALIZATION DATE:06/08/23 TIME: 161 PATIENT: MINDY CARTER UNIT #: [id number] ROOM/BED: [place] [address] : 54 AGE: 67 SEX: M ATTEND: [...] Consultants: cardiology, cardiovascular surgery at 1338 RPT #:[id number] END OF REPORT [facility] 2023-06-08 14:36:[address] [facility] ([facility]) Cardiothoracic Surgery Prog REPORT#:[id number] REPORT STATUS: Signed REPORT INITIALIZATION DATE:06/08/23 TIME: 1435 PATIENT: MINDY CARTER UNIT #: [id number] ROOM/BED: 2202-1 : 54 AGE: 67 SEX: M ATTEND: Kimmie Bacon MD ADM AUTHOR: Nathaniel Martel MD REPT SERVICE DT/TIME: 06/08/23 1436 * ALL edits or amendments must be [...] 1.89 Laboratory Tests 06/07 0446 Coagulation PTT (Meriwether) (25.0 - 39.5 Seconds) 61.5 H Laboratory [...] (Auto) (14.0 - 32.0 %) 8.1 L [place] % (Auto) (4.8 - 9.0 %) 10.4 H Eos % (Auto) (0.3 - 3.7 %) 3.4 Baso % (Auto) (0.0 - 2.0 %) 0.7 Neut # (Auto) (2.0 - 7.6 x10 3/uL) 6.95 Lymph # (Auto) (1.0 - 3.8 x10 3/uL) 0.74 L [place] # (Auto) (0.1 - 0.8 x10 3/uL) [...] patient Discussion included: living will, power of erisa attorney, code status Current Medications Current medication [...] diagnosed. Patient does not live local to [place]. Will consult gastroenterology to see patient. -EtOH cessation 3. Chronic kidney disease -Patient does not live local to [place]. Will consult nephrology to see patient. Patient [...] Consultants: cardiology, cardiovascular surgery at 0956 RPT #:[id number] END OF REPORT [facility] 2023-06-08 12:53:[address] [facility] ([facility]) Gastroenterology Progress Note REPORT#:[id number] REPORT STATUS: Signed REPORT INITIALIZATION DATE:06/08/23 TIME: 1253 PATIENT: MINDY CARTER UNIT #: [id number] ROOM/BED: [place] [address] : 54 AGE: 67 SEX: M ATTEND: [...] guarding Extremities: moves all Musculoskeletal: normal inspection Neuro/DANCE COACH: alert, oriented X 3, normal speech Skin: [...] 110 MG/DL) 280 H Laboratory Tests 06/07 445 Coagulation PTT (Rashida) [...] (Auto) (14.0 - 32.0 %) 8.1 L [place] % (Auto) (4.8 - 9.0 %) 10.4 H Eos % (Auto) (0.3 - 3.7 %) 3.4 Baso % (Auto) (0.0 - 2.0 %) 0.7 Neut # (Auto) (2.0 - 7.6 x10 3/uL) 6.95 Lymph # (Auto) (1.0 - 3.8 x10 3/uL) 0.74 L [place] # (Auto) (0.1 - 0.8 x10 3/uL) [...] RAHUL Tobias. at 1631 at 2133 RPT #:[id number] END OF REPORT [facility] 2023-06-08 00:58:[address] [facility] ([facility]) Nephrology Progress Note REPORT#:[id number] REPORT STATUS: Signed REPORT INITIALIZATION DATE:06/08/23 TIME: 57 PATIENT: MINDY CARTER UNIT #: [id number] ROOM/BED: [place] [address] : 54 AGE: 67 SEX: M ATTEND: [...] 90 94 06/06 1100 86 35 95 / 1000 80 23 94 06/06 0927 96 [...] Consultants: cardiology, cardiovascular surgery at 0100 RPT #:[id number] END OF REPORT [facility] 2023-06-07 14:02:00 [facility] Hospitalist Progress Note REPORT#:[id number] REPORT STATUS: Signed REPORT INITIALIZATION DATE:06/07/23 TIME: 140 PATIENT: MINDY CARTER UNIT #: [id number] ROOM/BED: [place] [address] : 54 AGE: 67 SEX: M ATTEND: [...] O2 Flow FiO2 Mean Ox Delivery Rate 03/11 1141 98.1 90 16 123/67 0.0 94 [...] distention Extremities: edema, no clubbing, no cyanosis Neuro/DANCE COACH: alert, oriented X 3, CNII-XII intact Skin: [...] 1.87 Laboratory Tests 06/07 235 Coagulation PTT (Meriwether) (25.0 - 39.5 Seconds) 57.6 H Laboratory [...] (Auto) (14.0 - 32.0 %) 8.7 L [place] % (Auto) (4.8 - 9.0 %) 10.9 H Eos % (Auto) (0.3 - 3.7 %) 3.6 Baso % (Auto) (0.0 - 2.0 %) 0.8 Neut # (Auto) (2.0 - 7.6 x10 3/uL) 5.96 Lymph # (Auto) (1.0 - 3.8 x10 3/uL) 0.69 L [place] # (Auto) (0.1 - 0.8 x10 3/uL) [...] a living will or medical power of erisa attorney Patient is a full code 06/01 [...] patient Discussion included: living will, power of erisa attorney, code status at 1406 RPT #:[id number] END OF REPORT [facility] 2023-06-07 11:20:[address] [facility] ([facility]) Cardiothoracic Surgery Prog REPORT#:[id number] REPORT STATUS: Signed REPORT INITIALIZATION DATE:06/07/23 TIME: 1119 PATIENT: MINDY CARTER UNIT #: [id number] ROOM/BED: [place] [address] : 54 AGE: 67 SEX: M ATTEND: [...] Pulse 90 06/06 710 Resp 14 06/06 710 FiO2 40 06/04 924 24 hour I O ending at 0700: [...] IV (CKD) Results Findings/Data: Laboratory Tests 06/06 160 1147 Chemistry Sodium (134 - 147 mEq/L) [...] 1.87 Laboratory Tests 06/07 235 Coagulation PTT (Meriwether) (25.0 - 39.5 Seconds) 57.6 H Laboratory [...] (Auto) (14.0 - 32.0 %) 8.7 L [place] % (Auto) (4.8 - 9.0 %) 10.9 H Eos % (Auto) (0.3 - 3.7 %) 3.6 Baso % (Auto) (0.0 - 2.0 %) 0.8 Neut # (Auto) (2.0 - 7.6 x10 3/uL) 5.96 Lymph # (Auto) (1.0 - 3.8 x10 3/uL) 0.69 L [place] # (Auto) (0.1 - 0.8 x10 3/uL) [...] patient Discussion included: living will, power of erisa attorney, code status Current Medications Current medication [...] diagnosed. Patient does not live local to [place]. Will consult gastroenterology to see patient. -EtOH cessation 3. Chronic kidney disease -Patient does not live local to [place]. Will consult nephrology to see patient. Patient [...] Consultants: cardiology, cardiovascular surgery at 0955 RPT #:[id number] END OF REPORT [facility] 2023-06-07 10:19:[address] [facility] ([facility]) Gastroenterology Progress Note REPORT#:[id number] REPORT STATUS: Signed REPORT INITIALIZATION DATE:06/07/23 TIME: 1019 PATIENT: MINDY CARTER UNIT #: [id number] ROOM/BED: [place] [address] : 54 AGE: 67 SEX: M ATTEND: [...] Rate 2 06/06 09 FiO2 40 06/04 09 24 hour I [...] guarding Extremities: moves all Musculoskeletal: normal inspection Neuro/DANCE COACH: alert, oriented X 3, normal speech Skin: dry, intact, normal color Psychiatry: normal affect, normal judgment/insight, normal mood Results Findings/Data: Laboratory Tests 06/07/23 0236: [Embedded Image Not Available] Laboratory Tests 06/06 06/06 06/06 06/06 06/05 1639 1139 0702 235 2014 Chemistry Sodium (134 - 147 mEq/L) 134 [...] (Auto) (14.0 - 32.0 %) 8.7 L [place] % (Auto) (4.8 - 9.0 %) 10.9 H Eos % (Auto) (0.3 - 3.7 %) 3.6 Baso % (Auto) (0.0 - 2.0 %) 0.8 Neut # (Auto) (2.0 - 7.6 x10 3/uL) 5.96 Lymph # (Auto) (1.0 - 3.8 x10 3/uL) 0.69 L [place] # (Auto) (0.1 - 0.8 x10 3/uL) [...] RAHUL Tobias. at 1759 at 2005 RPT #:[id number] END OF REPORT [facility] 2023-06-07 09:16:00 [facility] Cardiology Progress Note REPORT#:[id number] REPORT STATUS: Signed REPORT INITIALIZATION DATE:06/07/23 TIME: 915 PATIENT: MINDY CARTER UNIT #: [id number] ROOM/BED: [place] [address] : 54 AGE: 67 SEX: M ATTEND: [...] aspirin statin and beta-blockers at 1815 RPT #:[id number] END OF REPORT [facility] 2023-06-06 13:14:00 [facility]) Cardiothoracic Surgery Prog REPORT#:[id number] REPORT STATUS: Signed REPORT INITIALIZATION DATE:06/06/23 TIME: 1313 PATIENT: MINDY CARTER UNIT #: [id number] ROOM/BED: [place] [address] : 53 AGE: 67 SEX: M ATTEND: [...] Ox 95 06/05 1151 B/P 130/74 06/05 115 B/P Mean 0.0 06/05 115 O2 Delivery [...] (Auto) (14.0 - 32.0 %) 7.6 L [place] % (Auto) (4.8 - 9.0 %) 11.0 H Eos % (Auto) (0.3 - 3.7 %) 4.0 H Baso % (Auto) (0.0 - 2.0 %) 0.8 Neut # (Auto) (2.0 - 7.6 x10 3/uL) 5.86 Lymph # (Auto) (1.0 - 3.8 x10 3/uL) 0.59 L [place] # (Auto) (0.1 - 0.8 x10 3/uL) [...] patient Discussion included: living will, power of erisa attorney, code status Current Medications Current medication [...] diagnosed. Patient does not live local to [place]. Will consult gastroenterology to see patient. -EtOH cessation 3. Chronic kidney disease -Patient does not live local to [place]. Will consult nephrology to see patient. Patient [...] answered. Consultants: cardiology, cardiovascular surgery at 0955 [facility] #:[id number] END OF REPORT [facility] 2023-06-06 12:46:[address] [facility] ([facility] Nephrology Progress Note REPORT#:[id number] REPORT STATUS: Signed REPORT INITIALIZATION DATE:06/06/23 TIME: 1246 PATIENT: MINDY CARTER UNIT #: [id number] ROOM/BED: [place] [address] : 53 AGE: 67 SEX: M ATTEND: [...] 27 95 06/06 1200 92 36 96 03/11 1141 36.7 90 16 123/67 0.0 94 03 1137 87 34 123/67 90 94 06/06 1100 86 35 95 06/06 1000 80 23 94 06/06 0927 96 Nasal 2 cannula 06/06 0900 91 38 96 06/06 0800 Nasal 2 cannula 06/06 0800 85 31 96 / 0711 36.5 90 14 156/68 0.0 95 03/ 0708 90 31 156/91 116 94 06/06 [...] Consultants: cardiology, cardiovascular surgery at 0106 RPT #:[id number] END OF REPORT [facility] 2023-06-06 11:47:[address] [facility] ([facility]) Hospitalist Progress Note REPORT#:[id number] REPORT STATUS: Signed REPORT INITIALIZATION DATE:06/06/23 TIME: 1146 PATIENT: MINDY CARTER UNIT #: [id number] ROOM/BED: [place] [address] : 53 AGE: 67 SEX: M ATTEND: [...] distention Extremities: edema, no clubbing, no cyanosis Neuro/DANCE COACH: alert, oriented X 3, CNII-XII intact Skin: [...] (Auto) (14.0 - 32.0 %) 7.6 L [place] % (Auto) (4.8 - 9.0 %) 11.0 H Eos % (Auto) (0.3 - 3.7 %) 4.0 H Baso % (Auto) (0.0 - 2.0 %) 0.8 Neut # (Auto) (2.0 - 7.6 x10 3/uL) 5.86 Lymph # (Auto) (1.0 - 3.8 x10 3/uL) 0.59 L [place] # (Auto) (0.1 - 0.8 x10 3/uL) [...] a living will or medical power of erisa attorney Patient is a full code 06/01 [...] patient Discussion included: living will, power of erisa attorney, code status at 1517 RPT #:[id number] END OF REPORT [facility] 2023-06-05 14:51:[address] [facility] ([facility]) Nephrology Progress Note REPORT#:[id number] REPORT STATUS: Signed REPORT INITIALIZATION DATE:06/05/23 TIME: 1450 PATIENT: MINDY CARTER UNIT #: [id number] ROOM/BED: [place] [address] : 53 AGE: 67 SEX: M ATTEND: [...] Flow FiO2 Mean Ox Delivery Rate 06/04 2036 97 Nasal 4 cannula 06/04 1858 36.5 [...] Consultants: cardiology, cardiovascular surgery at 0005 RPT #:[id number] END OF REPORT [facility] 2023-06-05 13:19:[address] [facility] ([facility]) Hospitalist Progress Note REPORT#:[id number] REPORT STATUS: Signed REPORT INITIALIZATION DATE:06/05/23 TIME: 1318 PATIENT: MINDY CARTER UNIT #: [id number] ROOM/BED: [place] [address] : 53 AGE: 67 SEX: M ATTEND: [...] distention Extremities: edema, no clubbing, no cyanosis Neuro/DANCE COACH: alert, oriented X 3, CNII-XII intact Skin: [...] Coagulation INR (0.8 - 1.2) 1.2 PTT (Meriwether) (25.0 - 39.5 Seconds) 76.7 H PT [...] (Auto) (14.0 - 32.0 %) 7.8 L [place] % (Auto) (4.8 - 9.0 %) 10.5 H Eos % (Auto) (0.3 - 3.7 %) 3.6 Baso % (Auto) (0.0 - 2.0 %) 0.9 Neut # (Auto) (2.0 - 7.6 x10 3/uL) 5.98 Lymph # (Auto) (1.0 - 3.8 x10 3/uL) 0.61 L [place] # (Auto) (0.1 - 0.8 x10 3/uL) [...] pH (5.0 - 7.0) 5.0 Ur Specific [place] (1.005 - 1.030) 1.014 Urine Protein (NEGATIVE) [...] Report Impression - Status: SIGNED Entered: 06/04/2023 6446 IMPRESSION: 1. Patchy areas of groundglass attenuation bilaterally suggest pneumonitis, possibly viral. 2. Left lower lobe nodularity is present, follow-up noncontrast chest CT in 3-6 months recommended. Additional recommendations above. Impression By: [email or web address] - Vadim Coelho M.D. RADIOLOGY - XR CHEST 1 V 06/03 9976 Report Impression - Status: SIGNED Entered: 06/04/2023 1936 IMPRESSION: Mild left basilar atelectasis Impression By: [...] a living will or medical power of erisa attorney Patient is a full code 06/01 [...] patient Discussion included: living will, power of erisa attorney, code status at 1321 RPT #:[id number] END OF REPORT [facility] 2023-06-05 13:15:[address] [facility] ([facility]) Cardiothoracic Surgery Prog REPORT#:[id number] REPORT STATUS: Signed REPORT INITIALIZATION DATE:06/05/23 TIME: 1315 PATIENT: MINDY CARTER UNIT #: [id number] ROOM/BED: [place] [id number] : 53 AGE: 67 SEX: M ATTEND: [...] - 4.97 3.16 L RATIO) Laboratory Tests 06/05 439 Coagulation INR (0.8 - 1.2) 1.2 PTT ([place]) (25.0 - 39.5 Seconds) 76.7 H PT Patient/Control Mix (9.3 - 12.9 SECONDS) 12.8 Laboratory Tests 03/09 0441 Hematology WBC (4.5 - 11.0 x10 [...] (Auto) (14.0 - 32.0 %) 7.8 L [place] % (Auto) (4.8 - 9.0 %) 10.5 H Eos % (Auto) (0.3 - 3.7 %) 3.6 Baso % (Auto) (0.0 - 2.0 %) 0.9 Neut # (Auto) (2.0 - 7.6 x10 3/uL) 5.98 Lymph # (Auto) (1.0 - 3.8 x10 3/uL) 0.61 L [place] # (Auto) (0.1 - 0.8 x10 3/uL) [...] 0.1 x10 3/uL) 0.00 Laboratory Tests 06/04 440 Urines Urine Color (YEL/STRAW) BAILEY H Urine Appearance (CLEAR) CLEAR Urine pH (5.0 - 7.0) 5.0 Ur Specific [place] (1.005 - 1.030) 1.014 Urine Protein (NEGATIVE) [...] Report Impression - Status: SIGNED Entered: 06/04/2023 215 IMPRESSION: 1. Patchy areas of groundglass attenuation [...] patient Discussion included: living will, power of erisa attorney, code status Current Medications Current medication [...] diagnosed. Patient does not live local to [place]. Will consult gastroenterology to see patient. -EtOH cessation 3. Chronic kidney disease -Patient does not live local to [place]. Will consult nephrology to see patient. Patient [...] all questions were answered. at 0941 RPT #:[id number] END OF REPORT [facility] 2023-06-04 23:05:[address] [facility] ([facility]) Nephrology Progress Note REPORT#:[id number] REPORT STATUS: Signed REPORT INITIALIZATION DATE:06/04/23 TIME: 2304 PATIENT: MINDY CARTER UNIT #: [id number] ROOM/BED: [place] [address] : [birth year] AGE: 67 SEX: M ATTEND: [...] I O ending at 0700: 08 0700 03/07 1900 Intake Total Output Total [...] nephropathy and keep hydrated. at 2308 RPT #:[id number] END OF REPORT [facility] 2023-06-04 15:34:00 [facility]) Cardiothoracic Surgery Prog REPORT#:[id number] REPORT STATUS: Signed REPORT INITIALIZATION DATE:06/04/23 TIME: 1534 PATIENT: MINDY CARTER UNIT #: [id number] ROOM/BED: [place] [address] : 53 AGE: 67 SEX: M ATTEND: Kimmie Bacon MD ADM AUTHOR: Nathaniel Martel MD REPT SERVICE DT/TIME: 06/04/23 0870 * ALL edits or amendments must be [...] (Auto) (14.0 - 32.0 %) 9.7 L [place] % (Auto) (4.8 - 9.0 %) 11.2 H Eos % (Auto) (0.3 - 3.7 %) 4.4 H Baso % (Auto) (0.0 - 2.0 %) 0.7 Neut # (Auto) (2.0 - 7.6 x10 3/uL) 4.98 Lymph # (Auto) (1.0 - 3.8 x10 3/uL) 0.66 L [place] # (Auto) (0.1 - 0.8 x10 3/uL) [...] patient Discussion included: living will, power of erisa attorney, code status Current Medications Current medication [...] diagnosed. Patient does not live local to [place]. Will consult gastroenterology to see patient. -EtOH cessation 3. Chronic kidney disease -Patient does not live local to [place]. Will consult nephrology to see patient. Patient [...] All questions were answered. at 0940 RPT #:[id number] END OF REPORT [facility] 2023-06-04 13:58:00 [facility] Nephrology Progress Note REPORT#:[id number] REPORT STATUS: Signed REPORT INITIALIZATION DATE:06/04/23 TIME: 1357 PATIENT: MINDY CARTER UNIT #: [id number] ROOM/BED: [place] [address] : 53 AGE: 67 SEX: M ATTEND: [...] cannula / 2124 96 Nasal 5 cannula /08 1845 [...] I O ending at 0700: 03/08 0700 /07 1900 Intake Total Output Total [...] nephropathy and keep hydrated. at 2304 RPT #:[id number] END OF REPORT [facility] 2023-06-04 12:01:[address] [facility] ([facility]) Hospitalist Progress Note REPORT#:[id number] REPORT STATUS: Signed REPORT INITIALIZATION DATE:06/04/23 TIME: 120 PATIENT: MINDY CARTER UNIT #: [id number] ROOM/BED: [address] : 53 AGE: 67 SEX: M [...] 84 22 125/77 92.9 97 Nasal cannula / 2000 Nasal 5 cannula 06/02 2000 84 26 97 / 1900 84 30 97 /07 1844 97.5 85 15 121/73 88.7 97 Nasal cannula / 1800 87 35 94 / 1700 87 30 97 /07 1640 97.9 86 20 144/73 0.0 97 Room air / 1636 86 32 144/73 99 95 /07 1600 81 25 97 03/ 1500 86 27 93 03/ 1400 89 [...] distention Extremities: edema, no clubbing, no cyanosis Neuro/DANCE COACH: alert, oriented X 3, CNII-XII intact Skin: [...] L Laboratory Tests 06/03 0944 Coagulation PTT (Meriwether) (25.0 - 39.5 Seconds) 74.9 H Laboratory [...] (Auto) (14.0 - 32.0 %) 9.7 L [place] % (Auto) (4.8 - 9.0 %) 11.2 H Eos % (Auto) (0.3 - 3.7 %) 4.4 H Baso % (Auto) (0.0 - 2.0 %) 0.7 Neut # (Auto) (2.0 - 7.6 x10 3/uL) 4.98 Lymph # (Auto) (1.0 - 3.8 x10 3/uL) 0.66 L [place] # (Auto) (0.1 - 0.8 x10 3/uL) [...] a living will or medical power of erisa attorney Patient is a full code 06/01 [...] patient Discussion included: living will, power of erisa attorney, code status at 1203 RPT #:[id number] END OF REPORT [facility] 2023-06-04 11:35:00 [facility] Gastroenterology Progress Note REPORT#:[id number] REPORT STATUS: Signed REPORT INITIALIZATION DATE:06/04/23 TIME: 1134 PATIENT: MINDY CARTER UNIT #: [id number] ROOM/BED: [place] [address] : 53 AGE: 67 SEX: M ATTEND: [...] guarding Extremities: moves all Musculoskeletal: normal inspection Neuro/DANCE COACH: alert, oriented X 3, normal speech Skin: [...] (Auto) (14.0 - 32.0 %) 9.7 L [place] % (Auto) (4.8 - 9.0 %) 11.2 H Eos % (Auto) (0.3 - 3.7 %) 4.4 H Baso % (Auto) (0.0 - 2.0 %) 0.7 Neut # (Auto) (2.0 - 7.6 x10 3/uL) 4.98 Lymph # (Auto) (1.0 - 3.8 x10 3/uL) 0.66 L [place] # (Auto) (0.1 - 0.8 x10 3/uL) [...] RAHUL Tobias. at 1430 at 1623 RPT #:[id number] END OF REPORT [facility] 2023-06-03 11:41:[address] [facility] ([facility]) Gastroenterology Progress Note REPORT#:[id number] REPORT STATUS: Signed REPORT INITIALIZATION DATE:06/03/23 TIME: 114 PATIENT: MINDY CARTER UNIT #: [id number] RO[address]BED: [address] : 53 AGE: 67 SEX: M [...] 06/02 1201 O2 Delivery Nasal cannula 06/02 1200 Temp 36.7 06/02 120 Pulse 89 06/02 1201 Resp 20 06/02 120 O2 Flow Rate [...] guarding Extremities: moves all Musculoskeletal: normal inspection Neuro/DANCE COACH: alert, oriented X 3, normal speech Skin: [...] (Auto) (14.0 - 32.0 %) 8.3 L [place] % (Auto) (4.8 - 9.0 %) 11.5 H Eos % (Auto) (0.3 - 3.7 %) 3.7 Baso % (Auto) (0.0 - 2.0 %) 0.5 Neut # (Auto) (2.0 - 7.6 x10 3/uL) 5.70 Lymph # (Auto) (1.0 - 3.8 x10 3/uL) 0.63 L [place] # (Auto) (0.1 - 0.8 x10 3/uL) [...] documented by RAHUL Tobias. at 1349 at 0773 RPT #:[id number] END OF REPORT [facility] 2023-06-03 08:57:00 [facility] Hospitalist Progress Note REPORT#:[id number] REPORT STATUS: Signed REPORT INITIALIZATION DATE:06/03/23 TIME: 856 PATIENT: MINDY CARTER UNIT #: [id number] ROOM/BED: [place] [address] : 53 AGE: 67 SEX: M ATTEND: [...] Flow FiO2 Mean Ox Delivery Rate 06/02 0639 98.1 92 24 124/69 0.0 97 Nasal cannula 06/02 0600 87 26 97 / 0500 90 29 98 / 0400 91 29 98 / 0341 97.9 101 143/87 105.3 99 / 0300 86 27 97 / 0200 84 24 94 / 0100 90 26 95 03/ 0045 88 25 95 / 2321 97.7 92 127/75 0.0 90 / 2245 94 26 94 / 2145 86 24 96 06/01 2037 89 147/97 113.4 97 06/01 2030 98.2 89 164/93 116.7 97 06/01 1935 Nasal 5 cannula 06/01 1900 Nasal 5 cannula 06/01 1835 97.3 91 16 150/89 109.4 93 Room air 06/01 1603 98.1 89 18 127/76 93.1 97 06/01 1107 98.2 85 16 124/77 92.6 95 24 hour I O ending at 0700: 06/02 1900 Intake Total 300 Output Total 600 [...] distention Extremities: edema, no clubbing, no cyanosis Neuro/DANCE COACH: alert, oriented X 3, CNII-XII intact Results [...] Coagulation INR (0.8 - 1.2) 1.1 PTT (Meriwether) (25.0 - 39.5 Seconds) 63.5 H 52.6 H 79.1 H PT Patient/Control Mix (9.3 - 12.9 SECONDS) 12.7 0306 1014 Coagulation PTT (Rashida) (25.0 - 39.5 Seconds) 71.3 H Laboratory Tests 06/028 Hematology WBC (4.5 - 11.0 x10 3/uL) [...] (Auto) (14.0 - 32.0 %) 8.3 L [place] % (Auto) (4.8 - 9.0 %) 11.5 H Eos % (Auto) (0.3 - 3.7 %) 3.7 Baso % (Auto) (0.0 - 2.0 %) 0.5 Neut # (Auto) (2.0 - 7.6 x10 3/uL) 5.70 Lymph # (Auto) (1.0 - 3.8 x10 3/uL) 0.63 L [place] # (Auto) (0.1 - 0.8 x10 3/uL) [...] - 0.1 x10 3/uL) 0.00 Laboratory Tests 06/028 Serology Hepatitis A IgM Ab (NON REACT. [...] a living will or medical power of erisa attorney Patient is a full code 06/01 [...] patient Discussion included: living will, power of erisa attorney, code status at 0900 RPT #:[id number] END OF REPORT [facility] 2023-06-02 23:02:[address] [facility] ([facility]) Nephrology Consultation Note REPORT#:[id number] REPORT STATUS: Signed REPORT INITIALIZATION DATE:06/02/23 TIME: 2301 PATIENT: MINDY CARTER UNIT #: [id number] ROOM/BED: [place] [address] : [birth year] AGE: 67 SEX: M ATTEND: Denise Montejo MD ADM AUTHOR: Nkechi Bacon MD REPT SERVICE DT/TIME: 06/02/23 3990 * ALL edits or amendments must be [...] Delivery Rate 06/03 2204 Nasal 5 cannula 06/04 2123 96 Nasal 5 cannula 06/03 1845 36.7 86 20 133/80 97.8 98 Nasal cannula 06/03 1645 90 52 93 06/03 1618 36.4 101 12 121/71 87.9 96 Nasal cannula 06/03 1603 Nasal 5 cannula 06/03 1600 86 36 97 /08 1500 88 26 98 /08 1400 93 38 96 / 1300 88 26 96 /08 1200 88 28 98 03/ 1153 36.4 86 12 118/74 88.7 93 Nasal cannula 06/03 1100 81 34 95 03/08 1000 85 37 96 /08 0900 89 36 99 /08 0800 86 37 98 03/08 0719 36.7 87 14 135/83 100.6 99 Room air 06/03 0700 87 33 97 /08 0352 36.5 85 15 124/77 92.7 97 [...] nephropathy and keep hydrated. at 2300 RPT #:[id number] END OF REPORT [facility] 2023-06-02 13:17:[address] [facility] ([facility] Hospitalist Progress Note REPORT#:[id number] REPORT STATUS: Signed REPORT INITIALIZATION DATE:06/02/23 TIME: 1316 PATIENT: MINDY CARTER UNIT #: [id number] ROOM/BED: [place] [address] : 54 AGE: 67 SEX: M ATTEND: [...] 06/01 0810 96 Nasal 5 cannula 06/01 721 98.4 88 16 137/75 95.7 95 06/01 0513 98.6 93 15 125/74 90.9 93 Nasal 5 cannula / 0247 98.1 94 16 121/73 88.9 92 Room air / 0026 91 Nasal 5 cannula / 0017 98.2 95 122/75 90.5 91 03/05 2334 98.6 92 16 122/74 90.3 91 Nasal cannula 03/ 2130 Nasal 5 cannula / 2118 93 [...] distention Extremities: edema, no clubbing, no cyanosis Neuro/DANCE COACH: alert, oriented X 3, CNII-XII intact Results [...] (Auto) (14.0 - 32.0 %) 6.5 L [place] % (Auto) (4.8 - 9.0 %) 9.5 H Eos % (Auto) (0.3 - 3.7 %) 2.2 Baso % (Auto) (0.0 - 2.0 %) 0.7 Neut # (Auto) (2.0 - 7.6 x10 3/uL) 6.20 Lymph # (Auto) (1.0 - 3.8 x10 3/uL) 0.50 L [place] # (Auto) (0.1 - 0.8 x10 3/uL) [...] a living will or medical power of erisa attorney Patient is a full code 06/01 multivessel disease on cath, CTS consulted, patient undergoing preop evaluation for possible CABG. Quality: [facility] Prophylaxis VTE prophylaxis initiated: yes Current Medications Current medication review: I attest that the foregoing medication list in the medical record is true, accurate, and complete to the best of my knowledge. Advanced Care Plan 65 or Older Discussed with: patient Discussion included: living will, power of erisa attorney, code status at 1318 RPT #:[id number] END OF REPORT [facility] 2023-06-02 12:05:[address] [facility] ([facility]) GE Consultation Note REPORT#:[id number] REPORT STATUS: Signed REPORT INITIALIZATION DATE:06/02/23 TIME: 1205 PATIENT: MINDY CARTER UNIT #: [id number] ROOM/BED: [place] [address] : [birth year] AGE: 67 SEX: M ATTEND: [...] 08/28 Atorvastatin Calcium 40 MG 2100 05/30 2100 AC 05/31 (LIPITOR) PO 06/29 Doxazosin Mesylate 2 MG BEDTIME 05/30 2100 AC 05/31 (CARDURA) PO 08/28 Hydralazine HCl 10 MG Q6H PRN PRN 05/30 1700 AC (APRESOLINE) IV 08/28 1659 Nitroglycerin 0.4 MG Q5M PRN PRN 05/30 1345 AC (NITROSTAT) SL 08/28 1344 Central Nervous System Agents Sig/Norris Start time Last Medication Dose Route Stop Time Status Admin Fentanyl Citrate 0 .STK-MED ONE 05/31 163 DC 05/31 (SUBLIMAZE) .ROUTE 1646 Midazolam HCl 0 .STK-MED ONE 05/31 1638 DC 05/31 (VERSED) .ROUTE 1646 Aspirin 81 MG DAILY 05/31 0900 AC 06/01 (ASPIRIN) PO 08/29 0859 0837 Acetaminophen 650 MG Q4H PRN PRN / 1700 AC (TYLENOL) PO 08/28 1659 Hydrocodone [...] Ox 95 06/01 1107 B/P 124/77 06/01 1107 B/P Mean 92.6 06/01 1107 Temp 36.8 06/01 110 Pulse 85 06/01 1107 Resp 16 06/01 1107 O2 Delivery Nasal cannula 06/01 0810 O2 [...] guarding Extremities: moves all Musculoskeletal: normal inspection Neuro/DANCE COACH: alert, oriented X 3, normal speech Skin: [...] (Auto) (14.0 - 32.0 %) 6.5 L [place] % (Auto) (4.8 - 9.0 %) 9.5 H Eos % (Auto) (0.3 - 3.7 %) 2.2 Baso % (Auto) (0.0 - 2.0 %) 0.7 Neut # (Auto) (2.0 - 7.6 x10 3/uL) 6.20 Lymph # (Auto) (1.0 - 3.8 x10 3/uL) 0.50 L [place] # (Auto) (0.1 - 0.8 x10 3/uL) [...] RAHUL Tobias. at 1418 at 2200 RPT #:[id number] END OF REPORT [facility] 2023-06-02 10:53:[address] [facility] ([facility]) Cardiology Progress Note REPORT#:[id number] REPORT STATUS: Signed REPORT INITIALIZATION DATE:06/02/23 TIME: 1053 PATIENT: MINDY CARTER UNIT #: [id number] ROOM/BED: [place] [address] : [birth year] AGE: 67 SEX: M ATTEND: [...] aspirin statin and beta-blockers at 1053 RPT #:[id number] END OF REPORT [facility] 2023-06-02 08:17:00 [facility] Cardiothoracic Surgery Consult REPORT#:[id number] REPORT STATUS: Signed REPORT INITIALIZATION DATE:06/02/23 TIME: 816 PATIENT: MINDY CARTER UNIT #: [id number] ROOM/BED: [facility] : 54 AGE: 67 SEX: M ATTEND: Kimmie Bacon MD ADM AUTHOR: Nathaniel Martel MD REPT SERVICE DT/TIME: 06/02/23 0880 * ALL edits or amendments must be [...] 0404 ML) Heparin Sodium 500 ML ASDIR 03 1300 CKD 05/31 (Porcine) IV 08/28 1259 [...] 08/28 Atorvastatin Calcium 40 MG 2100 05/30 2100 [...] 05/30 2100 AC 06/01 (HUMALOG) SUBQ 08/28 2059 0836 Glucagon 1 MG ASDIR PRN 05/30 [...] 06/01 721 O2 Delivery Nasal cannula 06/01 512 O2 Flow Rate 5 06/01 0513 24 [...] range of motion, painless range of motion Neuro/DANCE COACH: alert, oriented X 3 Skin: dry, intact [...] 8.8 Laboratory Tests 06/01 306 Coagulation PTT (Meriwether) (25.0 - 39.5 Seconds) 48.0 H Laboratory [...] (Auto) (14.0 - 32.0 %) 6.5 L [place] % (Auto) (4.8 - 9.0 %) 9.5 H Eos % (Auto) (0.3 - 3.7 %) 2.2 Baso % (Auto) (0.0 - 2.0 %) 0.7 Neut # (Auto) (2.0 - 7.6 x10 3/uL) 6.20 Lymph # (Auto) (1.0 - 3.8 x10 3/uL) 0.50 L [place] # (Auto) (0.1 - 0.8 x10 3/uL) [...] diagnosed. Patient does not live local to [place]. Will consult gastroenterology to see patient. -EtOH cessation 3. Chronic kidney disease -Patient does not live local to [place]. Will consult nephrology to see patient. Patient will be presented at complex cardiology conference on Wednesday. Further recommendations to follow. Thank you for this kind consultation. Quality: Trauma Gen Surg Advanced Care Plan 65 or Older Discussed with: patient Discussion included: living will, power of erisa attorney, code status Current Medications Current medication review: I attest that the foregoing medication list in the medical record is true, accurate, and complete to the best of my knowledge. VTE Prophylaxis - General VTE prophylaxis initiated: yes at 1010 RPT #:[id number] END OF REPORT [facility] 2023-06-01 23:52:00 [facility] Hospitalist Progress Note REPORT#:[id number] REPORT STATUS: Signed REPORT INITIALIZATION DATE:06/01/23 TIME: 2351 PATIENT: MINDY CARTER UNIT #: [id number] ROOM/BED: [place] [address] : [birth year] AGE: 67 SEX: M ATTEND: [...] cannula 05/31 1403 97.3 89 16 144/79 / 1105 92 17 129/79 95.5 92 / 0832 90 Nasal 3 cannula 05/31 0741 98.1 91 17 137/83 100.9 93 [...] distention Extremities: edema, no clubbing, no cyanosis Neuro/DANCE COACH: alert, oriented X 3, CNII-XII intact Results [...] (Auto) (14.0 - 32.0 %) 9.4 L [place] % (Auto) (4.8 - 9.0 %) 10.9 H Eos % (Auto) (0.3 - 3.7 %) 1.9 Baso % (Auto) (0.0 - 2.0 %) 0.7 Neut # (Auto) (2.0 - 7.6 x10 3/uL) 6.47 Lymph # (Auto) (1.0 - 3.8 x10 3/uL) 0.79 L [place] # (Auto) (0.1 - 0.8 x10 3/uL) [...] a living will or medical power of erisa attorney Patient is a full code Quality: Gen Med Crit Care VTE Prophylaxis VTE prophylaxis initiated: yes Current Medications Current medication review: I attest that the foregoing medication list in the medical record is true, accurate, and complete to the best of my knowledge. Advanced Care Plan 65 or Older Discussed with: patient Discussion included: living will, power of erisa attorney, code status at 3604 RPT #:[id number] END OF REPORT [facility] 2023-06-01 17:43:[address] [facility] ([facility]) Cardiology Consultation REPORT#:[id number] REPORT STATUS: Signed REPORT INITIALIZATION DATE:06/01/23 TIME: 1742 PATIENT: MINDY CARTER UNIT #: [id number] ROOM/BED: [place] [address] : [birth year] AGE: 67 SEX: M ATTEND: [...] No Known Allergies (05/31/23) at 1744 RPT #:[id number] END OF REPORT [facility] 2023-06-01 17:34:[address] [facility] ([facility]) DT Operative Note REPORT#:[id number] REPORT STATUS: Signed REPORT INITIALIZATION DATE:06/01/23 TIME: 1733 PATIENT: MINDY CARTER UNIT #: [id number] ROOM/BED: [place] [address] : [birth year] AGE: 67 SEX: M ATTEND: Eleonora Mai MD ADM AUTHOR: Clayton Nathan MD REPT SERVICE DT/TIME: 06/01/231733 * ALL edits or amendments must be made on the electronic/computer document * Operative Report Operative Note Note: Cardiac catheterization procedure note Location: [facility] catheterization Lab Date of service: 06/01/2023 Attending physician: Clayton Nathan MD Pre-operative diagnosis: NSTEMI Post-operative diagnosis: Same as above in addition to: 1. Severe left main and proximal LAD stenosis Procedure: -Moderate sedation, 20 mins -Fluoroscopic ultrasound-guided right GEOLOGICAL MANAGER access, 4 [place] -Selective coronary angiography -Left heart catheterization -88167 Moderate sedation, initial 15 minutes -60782(+) Ultrasound guided access -20603 CAG+LHC Findings: Coronary Anatomy: -Left main: Proximal to mid left main with 60-70% stenosis. Significant dampening with engagement of the 4 [place] JL catheter suggestive of ostial involvement. -LAD: [...] moderate sedation was ordered and monitored by wi. The right common femoral artery site was draped and prepped in the usual sterile fashion. Local anesthesia with 1% lidocaine was used to anesthetize the [facility] common femoral artery access site. Using fluoroscopy and real-time ultrasound guidance, a micropuncture kit was used to access the RCFA. Utilizing Seldinger technique a 4 [place]an sheath was introduced over the wire into the artery without difficulty. A 4 [place]an JL 5 diagnostic catheter was introduced through the femoral arterial sheath over wire to cannulate the left main coronary artery which was selectively engaged with non-dampening waveforms. Cine images obtained. The catheter was then removed over the wire and exchanged for a 4 [place] JR4 diagnostic catheter which was introduced over [...] concerns were addressed. Clayton Nathan MD Attending Biomedical Service Engineer [facility] Cardiology at 1742 RPT #:[id number] END OF REPORT [facility] 2023-06-01 16:49:00 [id number] [place] [address] PATIENT NAME: MINDY CARTER ADMIT DATE: 05/31/23 ACCOUNT NO: [id number] ROOM NO: [id number] AGE: 67 REPORT TYPE: eECHOCARDIOGRAM REPORT SEX: M ADMITTING PHYSICIAN:Eleonora Mai MD ATTENDING PHYSICIAN:Eleonora Mai MD *[place] [address] Transthoracic Echocardiogram Patient: Mindy Carter Study Date: 05/31/2023 BP: 131 / 91 URN: [id number] Location: : 1955 Age: 67 Gender: M Height: 69 in / 175.3 cm Weight: 240 lb / 108.9 kg BMI/BSA: 35.4 kg/m 2 / 2.34 m 2 *Ordering Physician: * Naomi CervantesInterpreting Physician: * Clayton Nathan MD *Roadability Machine Operator: * Chelita Valentine Indications: CHF. Study [...] 16:49 at 1649 PATIENT NAME: MINDY CARTER [facility]58[facility]00 [facility] REPORT#:[id number] REPORT STATUS: Signed REPORT INITIALIZATION DATE:05/31/23 TIME: 1657 PATIENT: MINDY CARTER UNIT #: [id number] ROOM/BED: [place] [address] : [birth year] AGE: 67 SEX: M ATTEND: [...] B/P Mean 104.0 / 1343 Temp 98.1 05/30 1343 Pulse 94 / 1343 O2 Delivery [...] distention Extremities: edema, no clubbing, no cyanosis Neuro/DANCE COACH: alert, oriented X 3, CNII-XII intact Results [...] (Auto) (14.0 - 32.0 %) 7.1 L [place] % (Auto) (4.8 - 9.0 %) 9.3 H Eos % (Auto) (0.3 - 3.7 %) 0.5 Baso % (Auto) (0.0 - 2.0 %) 0.5 Neut # (Auto) (2.0 - 7.6 x10 3/uL) 9.98 H Lymph # (Auto) (1.0 - 3.8 x10 3/uL) 0.86 L [place] # (Auto) (0.1 - 0.8 x10 3/uL) [...] (0.0 - 0.1 x10 3/uL) 0.00 03/04 / 1137 1136 Blood Gas Puncture Site L [...] (Auto) (14.0 - 32.0 %) 6.1 L [place] % (Auto) (4.8 - 9.0 %) 9.6 H Eos % (Auto) (0.3 - 3.7 %) 0.2 L Baso % (Auto) (0.0 - 2.0 %) 0.5 Neut # (Auto) (2.0 - 7.6 x10 3/uL) 10.20 H Lymph # (Auto) (1.0 - 3.8 x10 3/uL) 0.76 L [place] # (Auto) (0.1 - 0.8 x10 3/uL) [...] a living will or medical power of erisa attorney Patient is a full code Quality: Gen Med Crit Care VTE Prophylaxis VTE prophylaxis initiated: yes Current Medications Current medication review: I attest that the foregoing medication list in the medical record is true, accurate, and complete to the best of my knowledge. Advanced Care Plan 65 or Older Discussed with: patient Discussion included: living will, power of erisa attorney, code status at 1703 RPT #:[id number] END OF REPORT [facility] 2023-05-31 12:30:[address] [facility] ([facility]) Cardiology Consultation REPORT#:[id number] REPORT STATUS: Signed REPORT INITIALIZATION DATE:05/31/23 TIME: 1230 PATIENT: MINDY CARTER UNIT #: [id number] ROOM/BED: 6613-1 : 53 AGE: 67 SEX: M ATTEND: [...] denies smoking recreational drugs. 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 [...] Allergies (05/31/23) at 1318 at 0902 RPT #:[id number] END OF REPORT [facility] 2023-05-31 11:34:00 [id number] [address] PATIENT NAME: MINDY CARTER ADMIT DATE: 05/31/23 ACCOUNT NO: [id number] ROOM NO: [facility] AGE: 67 REPORT TYPE: eELECTROCARDIOGRAM REPORT SEX: M ADMITTING PHYSICIAN:Eleonora Mai MD ATTENDING PHYSICIAN:Eleonora Mai MD Order: [id number] Test Reason : sob/chf Test Date/Time Stamp: [...] MD at 1505 PATIENT NAME: MINDY CARTER [facility] 2023-05-31 11:27:[address] [facility] ([facility]) EMERGENCY PROVIDER REPORT REPORT#:[id number] REPORT STATUS: Signed DATE:05/31/23 TIME: 112 PATIENT: MINDY CARTER UNIT #: [id number] ROOM/BED: [place] [address] AGE: 67 SEX: M PCP PHYS: No Primary or Family Physician SERVICE AUTHOR: Mendel Walker MD * ALL edits or amendments must be made on the electronic/computer document * HPI-Dyspnea/Wheezing General Confirmed Patient Yes Initial Greet Date/Time 05/31/23 1120 PCP out town pcp josse sierra Presentation Chief Complaint [...] (Auto) (14.0 - 32.0 %) 6.1 L [place] % (Auto) (4.8 - 9.0 %) 9.6 H Eos % (Auto) (0.3 - 3.7 %) 0.2 L Baso % (Auto) (0.0 - 2.0 %) 0.5 Neut # (Auto) (2.0 - 7.6 x10 3/uL) 10.20 H Lymph # (Auto) (1.0 - 3.8 x10 3/uL) 0.76 L [place] # (Auto) (0.1 - 0.8 x10 3/uL) [...] billable procedures excluded from time. at 1933 [facility] #:[id number] END OF REPORT [facility]
[2024-08-10 04:54] LABS: Absolute Basophils 0.1 K/uL (0-0.5); Absolute Eosinophils 0.3 K/uL (0-0.5); Absolute Lymphocytes (CBC) 0.7 K/uL (0.7-4.9); Absolute Monocytes 0.7 K/uL (0.1-1.3); Absolute Neutrophil 5.2 K/uL (1.8-8.0); Basophils % 1.3 % (0-1.3); Eosinophils % 4.1 % (0-4.4); Hematocrit 36.3 % (39.6-49.0); Hemoglobin 12.5 g/dL (13.6-17.9); Lymphocytes % 9.4 % (15.3-44.8); MCH 33.2 pg (27.0-35.0); MCHC 34.4 g/dL (32.0-36.0); MCV 96.7 fL (80-100); MPV 9.5 fL (7.6-11.3); Monocytes % 10.3 % (3.3-12.3); Neutrophils % 74.9 % (41.7-73.7); Nucleated Red Blood Cells % 0.1 % (0-0); Platelets 149 thou/uL (152-406); RBC Red Blood Cell Count 3.75 M/uL (4.33-5.43); Red Cell Distribution Width 15.3 % (12.1-15.2)
[2024-08-10 05:00] LABS: PT Prothrombin Time 11.9 SECONDS (10-13.0); Protime INR 1.05
[2024-08-10 05:10] LABS: Albumin 2.6 g/dL (3.4-5.0); Albumin/Globulin Ratio 0.7 (1.1-1.8); Anion Gap 11.1 mEq/L (5.0-15.0); Bilirubin Direct 0.5 mg/dL (0-0.2); Bilirubin Indirect, Calculated 0.4 mg/dL (0.2-0.8); Bilirubin Total 0.9 mg/dL (0.2-1.0); Globulin 3.5 g/dL (2.3-3.5); Potassium 4.1 mEq/L (3.5-5.1); Protein, Total 6.1 g/dL (6.4-8.2)
[2024-08-10] MEDS ORDERED: PIPERACIL/TAZO 3.375 GM VIAL IV ONE (05:51)
[2024-08-10] MEDS ORDERED: NA CHLORIDE 0.9% 0 ML ONE (05:54)
--- NOTE | 2024-08-10 05:57 | EDPHYS ---
Physician Documentation [facility] Name: Devonte Gil Age: 68 yrs Sex: Male : 1955 Arrival Date: 08/10/2024 Time: 03:53 Bed 6 Private MD: ED Physician Kailey Portillo HPI: 08/10 04:05 This 68 yrs old Male presents to ER via Unassigned with complaints of Fall sp3 Injury, Abdominal Pain, Breathing Difficulty. 04:05 68-year-old male with history of known liver disease, known renal disease, recently sp3 discharged for osteomyelitis now presents for mechanical fall with injuries to the face, chest abdomen pelvis. Injury occurred yesterday morning due to mechanical trip. Today patient states that his symptoms and pain are worse including worsening abdominal pain. He also states he is gaining weight presumably from ascites versus other process. He denies any significant headache but does endorse facial pain. No significant bleeding reported. ROS otherwise negative.. Historical: - Allergies: 03:59 No Known Allergies; ha1 - Home Meds: 03:59 aspirin 81 mg Oral tablet daily [Active]; clopidogrel 75 mg Oral tablet [Active]; ha1 hydrochlorothiazide 50 mg Oral tablet daily [Active]; metformin 500 mg Oral tablet 2 times per day [Active]; pravastatin 40 mg Oral tablet every day at bedtime [Active]; terazosin 2 mg Oral capsule daily [Active]; spironolactone 25 mg Oral tablet daily [Active]; Plavix 75 mg Oral tablet 1 tab daily [Active]; levothyroxine 50 mcg capsule daily [Active]; potassium chloride 10 mEq Oral capsule 2 times per day [Active]; Jardiance 10 mg Oral tablet daily [Active]; metoprolol tartrate 25 mg Oral tablet daily [Active]; Iron CR Oral 65 mg daily [Active]; - PMHx: 03:59 Diabetes - NIDDM; High Cholesterol (Hypertension); Hypertension; kidney disease; ha1 - PSHx: 03:59 Coronary artery bypass graft; ha1 - Immunization history:: Adult Immunizations up to date. - Infectious Disease History:: Denies. - Social history:: Smoking status: Patient denies any tobacco usage or history of. ROS: 04:06 Constitutional: Negative for fever, chills, and weight loss, Cardiovascular: Negative sp3 for chest pain, palpitations, and edema, Respiratory: Negative for shortness of breath, cough, wheezing, and pleuritic chest pain, Back: Negative for injury and pain, Neuro: Negative for headache, weakness, numbness, tingling, and seizure, 04:06 All other systems are negative, Exam: 04:06 Constitutional: This is a well developed, well nourished patient who is awake, alert, sp3 and in no acute distress. Eyes: Pupils equal round and reactive to light, extra-ocular motions intact. Lids and lashes normal. Conjunctiva and sclera are non-icteric and not injected. Cornea within normal limits. Periorbital areas with no swelling, redness, or edema. ENT: Nares patent. No nasal discharge, no septal abnormalities noted. External auditory canals are clear. Oropharynx with no redness, swelling, or masses, exudates, or evidence of obstruction, uvula midline. Mucous membranes moist. Neck: Trachea midline, no thyromegaly or masses palpated, and no cervical lymphadenopathy. Supple, full range of motion without nuchal rigidity, or vertebral point tenderness. No Meningismus. Chest/axilla: Normal chest wall appearance and motion. Nontender with no deformity. No lesions are appreciated. Cardiovascular: Regular rate and rhythm with a normal S1 and S2. No gallops, murmurs, or rubs. Normal PMI, no JVD. No pulse deficits. Respiratory: Lungs have equal breath sounds bilaterally, clear to auscultation and percussion. No rales, rhonchi or wheezes noted. No increased work of breathing, no retractions or nasal flaring. Back: No spinal tenderness. No costovertebral tenderness. Full range of motion. Skin: Warm, dry with normal turgor. Normal color with no rashes, no lesions, and no evidence of cellulitis. 04:06 Head/face: Patient with extensive contusions and bruising on forehead, nose, left cheek, lower chest and entire anterior abdomen. Ascites and fluid wave noted.. Vital Signs: 04:35 BP 148 / 79; Pulse 64; Resp 18 S; Temp 98.9(O); Pulse Ox 99% on R/A; Weight 83.91 kg; ha1 Height 5 ft. 10 in. ; Pain 7/10; 05:45 BP 128 / 75; Pulse 63; Resp 22; Pulse Ox 97% on R/A; km10 06:13 BP 124 / 71; Pulse 63; Resp 17 S; Pulse Ox 97% on R/A; ha1 04:35 Body Mass Index 26.54 (83.91 kg, 177.8 cm) ha1 04:35 Pain Scale: Adult ha1 Berto Coma Score: 04:00 Eye Response: spontaneous(4). Motor Response: obeys commands(6). Verbal Response: ha1 oriented(5). Total: 15. Trauma Score (Adult): 04:00 Eye Response: spontaneous(1); Verbal Response: oriented(1); Motor Response: obeys ha1 commands(2); Systolic BP: > 89 mm Hg(4); Respiratory Rate: 10 to 29 per min(4); [place] Score: 15; Trauma Score: 12 MDM: 04:00 Medical Screening Exam initiated sp3 04:06 Data reviewed: vital signs, nurses notes, lab test result(s), radiologic studies. ED sp3 course: 68-year-old male with PMH above now with mechanical fall. Full trauma workup will be ordered. CT scan of the head, C-spine, facial bones, chest, abdomen and pelvis noncontrast given history. Differential diagnosis includes external contusions versus internal bleeding component. Labs and type and screen also pending. Pain medicine as indicated.. 05:55 ED course: CTs all negative from a trauma standpoint. Patient still has mild to sp3 moderate ascites which is his chronic baseline. Vital signs remain normal. It is time for his Zosyn which he gets through his PICC line secondary to his osteomyelitis. We will give his 5 AM dose and discharge him home with continued PCP follow-up.. 08/10 04:05 Order name: Basic Metabolic Panel; Complete Time: 05:25 sp3 08/10 04:05 Order name: CBC with Diff; Complete Time: 05:25 sp3 08/10 04:05 Order name: Type And Screen; Complete Time: 05:25 sp3 08/10 04:05 Order name: LFT's; Complete Time: 05:25 sp3 08/10 04:05 Order name: PT-INR; Complete Time: 05:25 sp3 08/10 04:05 Order name: CT Head C Spine sp3 08/10 04:05 Order name: CT Chest Abdomen Pelvis W/O Contrast sp3 08/10 04:05 Order name: CT Facial Bones W/O Con sp3 08/10 04:05 Order name: Labs collected and sent; Complete Time: 04:57 sp3 08/10 04:05 Order name: NPO; Complete Time: 04:57 sp3 Administered Medications: 06:05 Not Given (pt told provider he will administer his home zosyn when getting home since km10 being d/c'd now. ): piperacillin-tazobactam3.375 grams IVPB once over 60 mins; (mix in NS 100 mL) Disposition Summary: 08/10/24 05:56 Discharge Ordered Notes: Location: Home sp3 Condition: Stable sp3 Diagnosis - Mechanical fall, facial contusion, facial ecchymoses, abdominal wall contusion, sp3 abdominal wall ecchymoses Followup: sp3 - With: Private Physician - When: Upon discharge from the Emergency Department - Reason: Continuance of care Discharge Instructions: - Discharge Summary Sheet sp3 - Fall Prevention in the Home, Adult sp3 Forms: - Medication Reconciliation Form sp3 - Antibiotic Education sp3 - Prescription Opioid Use sp3 - Patient Portal Instructions sp3 - Leadership Thank You Letter sp3 Signatures: Dispatcher [employer] EDMS Kailey Portillo MD MD sp3 Corie Johnston RN RN ha1 Ivana Yip RN km10 Corrections: (The following items were deleted from the chart) 04:05 04:05 BASIC METABOLIC PANEL+C.LAB.BRZ ordered. EDMS EDMS 04:05 04:05 CBC+H.LAB.BRZ ordered. EDMS EDMS 04:05 04:05 TYPE AND SCREEN+BB.LAB.BRZ ordered. EDMS EDMS 04:05 04:05 HEPATIC FUNCTION+C.LAB.BRZ ordered. EDMS EDMS 04:05 04:05 PROTIME (+INR)+COAG.LAB.BRZ ordered. EDMS EDMS 04:05 04:05 Head C Spine MPR Wo Con+CT.RAD.BRZ ordered. EDMS EDMS 04:05 04:05 Chest Abdomen Pelvis Wo Con+CT.RAD.BRZ ordered. EDMS EDMS 04:05 04:05 Facial Bones W/ MPR+CT.RAD.BRZ ordered. EDMS EDMS
--- NOTE | 2024-08-10 05:57 | ER ---
Nurse's Notes [facility] Name: Devonte Gil Age: 68 yrs Sex: Male : 1955 Arrival Date: 08/10/2024 Time: 03:53 Bed 6 Private MD: Diagnosis: Mechanical fall, facial contusion, facial ecchymoses, abdominal wall contusion, abdominal wall ecchymoses Presentation: 08/10 04:00 Chief complaint: Patient states: FELL YESTERDAY MORNING, ABDOMINAL PAIN AND DISTENTION, ha1 AND BRUISING AFTER FALL. 04:00 Coronavirus screen: Client denies travel out of the [place] in the last 14 days. Ebola ha1 Screen: No symptoms or risks identified at this time. 04:00 Method Of Arrival: Wheelchair ha1 04:35 Initial Sepsis Screen: Does the patient meet any 2 criteria? No. Patient's initial ha1 sepsis screen is negative. Does the patient have a suspected source of infection? No. Patient's initial sepsis screen is negative. Risk Assessment: Do you want to hurt yourself or someone else? Patient reports no desire to harm self or others. Onset of symptoms was August 10, 2024. 04:35 Acuity: FABI 2 ha1 Triage Assessment: 03:59 General: Appears uncomfortable, Behavior is cooperative. Pain: Complains of pain in ha1 abdomen Pain currently is 7 out of 10 on a pain scale. Quality of pain is described as aching, Aggravated by repositioning. Neuro: Level of Consciousness is awake, alert, obeys commands, Oriented to person, place, time, situation. Cardiovascular: Capillary refill < 3 seconds Patient's skin is warm and dry. Respiratory: Reports shortness of breath at rest on exertion Airway is patent Respiratory effort is even, unlabored, Respiratory pattern is regular, symmetrical. GI: Abdomen is round distended, bruised on right lower quadrant and left lower quadrant Bowel sounds present X 4 quads. Abdomen is tender to palpation X 4 quads. Abd is rigid X 4 quads. Reports lower abdominal pain. Derm: Wound noted plantar aspect of left first toe. Musculoskeletal: Circulation, motion, and sensation intact. Historical: - Allergies: 03:59 No Known Allergies; ha1 - Home Meds: 03:59 aspirin 81 mg Oral tablet daily [Active]; clopidogrel 75 mg Oral tablet [Active]; ha1 hydrochlorothiazide 50 mg Oral tablet daily [Active]; metformin 500 mg Oral tablet 2 times per day [Active]; pravastatin 40 mg Oral tablet every day at bedtime [Active]; terazosin 2 mg Oral capsule daily [Active]; spironolactone 25 mg Oral tablet daily [Active]; Plavix 75 mg Oral tablet 1 tab daily [Active]; levothyroxine 50 mcg capsule daily [Active]; potassium chloride 10 mEq Oral capsule 2 times per day [Active]; Jardiance 10 mg Oral tablet daily [Active]; metoprolol tartrate 25 mg Oral tablet daily [Active]; Iron CR Oral 65 mg daily [Active]; - PMHx: 03:59 Diabetes - NIDDM; High Cholesterol (Hypertension); Hypertension; kidney disease; ha1 - PSHx: :59 Coronary artery bypass graft; ha1 - Immunization history:: Adult Immunizations up to date. - Infectious Disease History:: Denies. - Social history:: Smoking status: Patient denies any tobacco usage or history of. Screenin:[address] [facility] ED Fall Risk Assessment (Adult) History of falling in the last 3 months, ha1 including since admission Yes- single mechanical fall (1 pt) Confusion or Disorientation No (0 pts) Intoxicated or Sedated No (0 pts) Impaired Gait Yes (1 pt) Mobility Assist Device Used Yes (1 pt) Altered Elimination No (0 pt) Score/Fall Risk Level 3 or more points = High Risk Oriented to surroundings, Maintained a safe environment, Educated pt \T\ family on fall prevention, incl call for assistance when getting out of bed, Hourly rounding (assess needs \T\ fall precautionary measures) done. Abuse screen: Denies threats or abuse. Denies injuries from another. Nutritional screening: No deficits noted. Tuberculosis screening: No symptoms or risk factors identified. Primary Survey: :59 NO uncontrolled hemorrhage observed. Breathing/Chest: Spontaneous respiratory effort, ha1 equal unlabored respirations, breath sounds clear bilaterally, regular pattern, symmetrical chest rise and fall. Circulation: No external hemorrhage present. Regular and strong central pulse, skin warm/dry/normal color. Disability Pupils are equal, round, reactive to light and accommodation. Exposure/Environment: All clothing and personal items were removed. Forensic evidence collection is not deemed to be indicated at this time. Items placed in patient belonging bag. Assessment: 04:00 Reassessment: SEE TRIAGE ASSESSMENT. ha1 05:00 Reassessment: Patient and/or family updated on plan of care and expected duration. Pain ha1 level reassessed. Patient is alert, oriented x 3, equal unlabored respirations, skin warm/dry/pink. 06:00 Reassessment: Patient and/or family updated on plan of care and expected duration. Pain ha1 level reassessed. Patient is alert, oriented x 3, equal unlabored respirations, skin warm/dry/pink. Vital Signs: 04:35 BP 148 / 79; Pulse 64; Resp 18 S; Temp 98.9(O); Pulse Ox 99% on R/A; Weight 83.91 kg; ha1 Height 5 ft. 10 in. ; Pain 7/10; 05:45 BP 128 / 75; Pulse 63; Resp 22; Pulse Ox 97% on R/A; km10 06:13 BP 124 / 71; Pulse 63; Resp 17 S; Pulse Ox 97% on R/A; ha1 04:35 Body Mass Index 26.54 (83.91 kg, 177.8 cm) ha1 04:35 Pain Scale: Adult ha1 [place] Com[place] Score: 04:00 Eye Response: spontaneous(4). Motor Response: obeys commands(6). Verbal Response: ha1 oriented(5). Total: 15. Trauma Score (Adult): 04:00 Eye Response: spontaneous(1); Verbal Response: oriented(1); Motor Response: obeys ha1 commands(2); Systolic BP: > 89 mm Hg(4); Respiratory Rate: 10 to 29 per min(4); [place] Score: 15; Trauma Score: 12 ED Course: 03:56 Patient arrived in ED. gm2 03:58 Kailey Portillo MD is Attending Physician. sp3 03:59 Arm band placed on right wrist. ha1 04:00 Patient has correct armband on for positive identification. Placed in gown. Bed in low ha1 position. Call light in reach. Side rails up X 1. Adult w/ patient. 04:06 Jill Swain, RN is Primary Nurse. kd3 04:31 CT Head C Spine In Process Unspecified. EDMS 04:31 CT Chest Abdomen Pelvis W/O Contrast In Process Unspecified. EDMS 04:31 CT Facial Bones W/O Con In Process Unspecified. EDMS 04:37 Triage completed. ha1 04:57 Basic Metabolic Panel Sent. ha1 04:57 CBC with Diff Sent. ha1 04:57 Type And Screen Sent. ha1 04:57 PT-INR Sent. ha1 04:57 LFT's Sent. ha1 05:00 Accessed Blood collected. PICC LINE Clean \T\ dry. Dressing intact. Good blood return. ha1 Flushes easily. 06:08 No provider procedures requiring assistance completed. ha1 06:10 IV is patent, is intact, with good blood return, GOING BACK HOME WITH DOUBLE LUMEN PICC ha1 LINE SAME LINE HE CAME WITH. . 06:12 Provided Education on: FOLLOW UPS . ha1 Administered Medications: 06:05 Not Given (pt told provider he will administer his home zosyn when getting home since km10 being d/c'd now. ): piperacillin-tazobactam3.375 grams IVPB once over 60 mins; (mix in NS 100 mL) Medication: 06:12 VIS not applicable for this client. ha1 Outcome: 05:56 Discharge ordered by . sp3 06:09 Discharged to home via wheelchair, with family, ha1 06:09 Condition: stable 06:09 Discharge instructions given to patient, family, Instructed on discharge instructions, follow up and referral plans. medication usage, Demonstrated understanding of instructions, follow-up care, medications, 06:13 Patient left the ED. ha1 Signatures: Dispatcher [employer] Kailey Ortega MD MD sp3 Jill Swain RN RN kd3 Corie Johnston RN RN ha1 Ynes Abdul 2 Ivana Yip, RAMIN RN km10
[2024-08-10 06:18] VITALS: TEMP 98.9
[2024-08-10 06:20] VITALS: O2SAT 97
[2024-08-10 06:21] VITALS: BP 124/71
--- NOTE | 2024-08-10 06:37 | RAD REPORT ---
EXAM: CT Head and Cervical Spine Without Intravenous Contrast CLINICAL HISTORY: The patient is 68 years old and is Male; Trauma. TECHNIQUE: Axial computed tomography images of the head/brain and cervical spine without intravenou s contrast. Sagittal and coronal reformatted images were created and reviewed. This CT exam was performed using one or more of the following dose reduction techniques: automated exposure control, adjustment of the mA and/or kV according to patient size, and/or use of iterative reconstruction technique. COMPARISON: CT Head and Cervical Spine 03/06/2023. 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 No hemorrhage. Ventricles: Unremarkable. No ventriculomegaly. Skull: No acute fracture. Sinuses: Unremarkable as visualized. No acute sinusitis. Mastoid air cells: Unremarkable as visualized. No mastoid fluid. Vertebrae: No acute cervical spine fracture. Lateral alignment is maintained. Discs/spinal canal/neural foramina: No acute findings. No spinal canal stenosis. Soft tissues: Unremarkable. Pleural space: No apical pneumothorax. IMPRESSION: 1. No acute intracranial findings. No hemorrhage. 2. 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 3. No acute cervical spine fracture. Electronically signed by: Farideh Mauro MD 08/10/2024 05:43 AM CDT V2 Due to temporary technical issues with the [employer] reporting system, reports are being tree d by the in-house radiologist without review as a courtesy to ensure prompt reporting the interpreting radiologist is fully responsible for the content of the report. Transcribed Date/Time: 08/10/2024 6:36 AM
--- NOTE | 2024-08-10 06:37 | RAD REPORT ---
EXAM: CT Chest, Abdomen and Pelvis Without Intravenous Contrast CLINICAL HISTORY: The patient is 68 years old and is Male; TRAUMA TECHNIQUE: Axial computed tomography images of the chest, abdomen and pelvis without intravenous co ntrast. Sagittal and coronal reformatted images were created and reviewed. This CT exam was performed using one or more of the following dose reduction techniques: automated exposure control, adjustment of the mA and/or kV according to patient size, and/or use of iterative reconstruction technique. COMPARISON: CT Abdomen Pelvis 07/19/2024 and XR Chest 05/31/2023. FINDINGS: CHEST: Lungs: Minimal bilateral linear atelectasis in the lung bases. Pleural space: No pleural effusion or pneumothorax. Heart: Mild cardiac enlargement. No significant pericardial fluid. Status post CABG surgery. ABDOMEN: Liver: Hepatic cirrhosis. Gallbladder and bile ducts: Distended gallbladder with cholelithiasis. No ductal dilation. Pancreas: Unremarkable. No ductal dilation. Spleen: Mild splenomegaly, 15.2 cm in craniocaudal dimension. Adrenals: Unremarkable. No mass. Kidneys and ureters: Unremarkable. No obstructing stones. No hydronephrosis. Stomach and bowel: Colonic diverticulosis. No bowel dilatation or obstruction. No bowel wall thickening. Stomach is nearly empty. PELVIS: Appendix: No findings to suggest acute appendicitis. Bladder: Unremarkable. No stones. Reproductive: Unremarkable as visualized. CHEST, ABDOMEN and PELVIS: Intraperitoneal space: Mild to moderate ascites. No free air. Bones/joints: Multiple vertebral Schmorl's nodes. No vertebral compression fracture. changes in t he lumbar spine. No acute rib fracture. No acute fracture in pelvis or proximal femora. No dislocation. Soft tissues: Unremarkable. Vasculature: Unremarkable. No aortic aneurysm. Lymph nodes: Unremarkable. No enlarged lymph nodes. Tubes, lines and devices: Sternal closure wires. Right PICC line terminates in the distal SVC. IMPRESSION: 1. No acute intrathoracic or intra-abdominal injury identified. 2. Hepatic cirrhosis. Mild to moderate ascites. 3. Distended gallbladder with cholelithiasis. 4. Colonic diverticulosis. 5. Mild splenomegaly. 6. Additional non-emergent findings as above. Electronically signed by: Farideh Mauro MD 08/10/2024 05:48 AM CDT RP V2 Due to temporary technical issues with the [employer] reporting system, reports are being tree d by the in-house radiologist without review as a courtesy to ensure prompt reporting the interpreting radiologist is fully responsible for the content of the report. Transcribed Date/Time: 08/10/2024 6:37 AM
--- NOTE | 2024-08-10 06:38 | RAD REPORT ---
EXAM: CT Maxillofacial Without Intravenous Contrast CLINICAL HISTORY: The patient is 68 years old and is Male; Trauma. TECHNIQUE: Axial computed tomography images of the face without intravenous contrast. Sagittal an d coronal reformatted images were created and reviewed. This CT exam was performed using one or more of the following dose reduction techniques: automated exposure control, adjustment of the mA a nd/or kV according to patient size, and/or use of iterative reconstruction technique. COMPARISON: No relevant prior studies available. FINDINGS: Bones/joints: No acute fracture visualized. Soft tissues: Unremarkable. Orbits: Unremarkable. Sinuses: Unremarkable. No air-fluid levels. Dental: Multiple mandibular and maxillary dental caries. IMPRESSION: No acute fracture visualized. Electronically signed by: Farideh Mauro MD 08/10/2024 05:50 AM CDT V2 Due to temporary technical issues with the PACS/[employer] reporting system, reports are being tree d by the in-house radiologist without review as a courtesy to ensure prompt reporting the interpreting radiologist is fully responsible for the content of the report. Transcribed Date/Time: 08/10/2024 6:37 AM
== END 2024-08-10 06:13 | disposition home or self-care (01) ==
LOC: ER 03:53
DX: S00.83XA Contusion of other part of head, initial encounter (principal); S30.1XXA Contusion of abdominal wall, initial encounter; S20.212A Contusion of left front wall of thorax, initial encounter; W18.30XA Fall on same level, unspecified, initial encounter; E11.22 Type 2 diabetes mellitus with diabetic chronic kidney disease; N18.9 Chronic kidney disease, unspecified; Z95.1 Presence of aortocoronary bypass graft; Z79.01 Long term (current) use of anticoagulants; Z79.82 Long term (current) use of aspirin
CPT/HCPCS: 36415; 70450; 70486; 71250; 72125; 74176; 76377; 80048; 80076; 85025; 85610; 86850; 86900; 86901; 99284; J2543